=== PATIENT | male | born 1955 | race American Indian/Alaskan Native ===

== ENCOUNTER 2017-01-14 13:53 | Inpatient (IN) | payer MEDICARE, OTHER ==
[2017-01-14] MEDS ORDERED: NACL 0.9% 1000 ML 1,000 ML IV ONE ×2 (14:14→15:38)
[2017-01-14 15:04] LABS: INR 2.07 (0.87-1.13)
[2017-01-14 15:05] LABS: Partial Thromboplastin Time 54.4 Sec. (24.2-36.6)
[2017-01-14 15:08] LABS: Eosinophils % (Auto) 2.5 % (0.0-4.3); Mean Corpuscular HGB Conc 33 % (32-34); Mean Corpuscular Hemoglobin 30 pg (28-32); Mean Corpuscular Volume 89 fl (84-94); Red Blood Count 1.83 M/mm3 (3.65-5.03); Red Cell Distribution Width 17.4 % (13.2-15.2); White Blood Count 11.3 K/mm3 (4.5-11.0)
[2017-01-14 15:13] LABS: Hemoglobin 5.4 gm/dl (11.8-15.2)
[2017-01-14 15:14] LABS: Hematocrit 16.3 % (35.5-45.6)
[2017-01-14] MEDS ORDERED: NACL 0.9% 500 ML 500 ML IV ONE ×3 (15:21→23:07)
[2017-01-14 15:22] LABS: BUN/Creatinine Ratio 24.22; Calcium 8.2 mg/dL (8.4-10.2)
[2017-01-14 15:23] LABS: Albumin 2.5 g/dL (3.9-5); Albumin/Globulin Ratio 0.6 %; Bilirubin,Total 9.8 mg/dL (0.1-1.2); Chloride 105.7 mmol/L (98-107); Potassium 5.2 mmol/L (3.6-5.0); Total Protein 6.5 g/dL (6.3-8.2)
--- NOTE | 2017-01-14 15:38 | Emergency Department Report ---
ED GI Bleed HPI - General Chief complaint: GI Bleed Stated complaint: RECTAL BLEED Time Seen by Provider: 01/14/17 15:18 Source: EMS Mode of arrival: Stretcher Limitations: Physical Limitation - History of Present Illness Initial comments: The patient noted some rectal bleeding this morning. He was having diarrhea yesterday but there was no apparent hematochezia. The stool turned dark red today. The patient is not complaining of any acute abdominal pain. The family attributed the diarrhea to what I think is the patient's chronic lactulose for I presume hyperammonemia related to his cirrhosis. He has a history of a portacaval shunt or slipped as he states. He receives GI care and general medical care at the [facility]. He has had a CT here at this facility which was consistent with cirrhosis. He is not currently consuming alcohol and not for quite some time. He denies any recent vomiting. From what I can tell he does have a history of esophageal varices. MD complaint: gross hematemesis -: hour(s) Severity scale (0 -10): 0 Consistency: intermittent (intermittent rectal bleeding but no acute abdominal pain) Improves with: none Worsens with: none Context: history of GI bleed (patient states he's had no recent transfusion) Associated Symptoms: denies other symptoms (is not currently complaining of shortness of breath or acute weakness), weakness - Related Data Home Medications Medication Instructions Recorded Confirmed Last Taken Cyanocobalamin [Vitamin B-12] 1,000 mcg PO DAILY 11/26/15 11/26/15 11/26/15 Folic Acid [Folvite] 1 mg PO QDAY 11/26/15 11/26/15 11/26/15 Furosemide [Lasix TAB] 40 mg PO QDAY 11/26/15 11/26/15 11/26/15 Magnesium Oxide 420 mg PO BID 11/26/15 11/26/15 11/26/15 amLODIPine [Norvasc] 5 mg PO DAILY 11/26/15 11/26/15 11/26/15 Previous Rx's Medication Instructions Recorded Last Taken Type Dicyclomine [Bentyl] 10 mg PO QID PRN #20 capsule 11/27/15 Unknown Rx Famotidine [Pepcid] 20 mg PO QDAY #20 tablet 11/27/15 Unknown Rx Ondansetron [Zofran Odt] 4 mg PO QID PRN #20 tab.rapdis 11/27/15 Unknown Rx Allergies Allergy/AdvReac Type Severity Reaction Status Date / Time No Known Allergies Allergy Verified 05/20/16 08:19 ED Review of Systems ROS: Stated complaint: RECTAL BLEED Other details as noted in HPI Constitutional: denies: chills, fever Eyes: denies: eye pain, eye discharge, vision change ENT: denies: ear pain, throat pain Respiratory: denies: cough, shortness of breath, wheezing Cardiovascular: denies: chest pain, palpitations Endocrine: no symptoms reported Gastrointestinal: diarrhea, hematochezia. denies: abdominal pain, nausea Genitourinary: denies: urgency, dysuria Musculoskeletal: denies: back pain, joint swelling, arthralgia Skin: denies: rash, lesions Neurological: denies: headache, weakness, paresthesias Psychiatric: denies: anxiety, depression Hematological/Lymphatic: denies: easy bleeding, easy bruising ED Past Medical Hx - Past Medical History Hx Hypertension: Yes Hx Liver Disease: Yes (CIRRHOSIS) Hx Seizures: Yes Additional medical history: enlarged liver, pituitary adenoma, cirrhosis with ascites. cataracts. glaucoma. anemia. GI bleed - Surgical History Additional Surgical History: left 5th toe ampuated. right third toe (hammertoe) - Social History Smoking Status: Former Smoker Substance Use Type: Alcohol - Medications Home Medications: Home Medications Medication Instructions Recorded Confirmed Last Taken Type Cyanocobalamin [Vitamin B-12] 1,000 mcg PO DAILY 11/26/15 11/26/15 11/26/15 History Folic Acid [Folvite] 1 mg PO QDAY 11/26/15 11/26/15 11/26/15 History Furosemide [Lasix TAB] 40 mg PO QDAY 11/26/15 11/26/15 11/26/15 History Magnesium Oxide 420 mg PO BID 11/26/15 11/26/15 11/26/15 History amLODIPine [Norvasc] 5 mg PO DAILY 11/26/15 11/26/15 11/26/15 History Dicyclomine [Bentyl] 10 mg PO QID PRN #20 capsule 11/27/15 Unknown Rx Famotidine [Pepcid] 20 mg PO QDAY #20 tablet 11/27/15 Unknown Rx Ondansetron [Zofran Odt] 4 mg PO QID PRN #20 tab.rapdis 11/27/15 Unknown Rx ED Physical Exam - General Limitations: Physical Limitation General appearance: alert, in no apparent distress - Head Head exam: Present: atraumatic, normocephalic - Eye Eye exam: Present: normal appearance, PERRL, EOMI. Absent: scleral icterus - ENT ENT exam: Present: mucous membranes moist - Neck Neck exam: Present: normal inspection. Absent: tenderness, meningismus - Respiratory Respiratory exam: Present: normal lung sounds bilaterally. Absent: respiratory distress - Cardiovascular Cardiovascular Exam: Present: regular rate, normal rhythm. Absent: systolic murmur, diastolic murmur, rubs, gallop - GI/Abdominal GI/Abdominal exam: Present: soft, distended, normal bowel sounds, other ( moderate ascites present). Absent: tenderness, guarding, rebound - Rectal Rectal exam: Present: deferred, other (hematochezia noted but no active rectal bleeding) - Extremities Exam Extremities exam: Present: normal inspection - Back Exam Back exam: Present: normal inspection - Neurological Exam Neurological exam: Present: alert, oriented X3, CN II-XII intact. Absent: motor sensory deficit - Psychiatric Psychiatric exam: Present: normal affect, normal mood - Skin Skin exam: Present: warm, dry, intact, normal color. Absent: rash ED Course Vital Signs 01/14/17 01/14/17 01/14/17 13:55 14:16 17:48 Temperature 98.3 F 98.3 F 98.2 F Pulse Rate 68 68 60 Respiratory 20 18 18 Rate Blood Pressure 95/51 100/55 Blood Pressure 95/51 [Right] O2 Sat by Pulse 96 96 99 Oximetry 01/14/17 01/14/17 18:02 18:18 Temperature 97.9 F 97.8 F Pulse Rate 59 L 54 L Respiratory 16 16 Rate Blood Pressure 107/50 109/51 Blood Pressure [Right] O2 Sat by Pulse 98 100 Oximetry - Reevaluation(s) Reevaluation #1: Patient was it. He treated with octreotide considering his history of esophageal varices. He was given Protonix. He was given blood and FFP considering his coagulopathy. He has remained hemodynamically stable and remarkably so. Nurses are in the process of medication of his currently ordered blood products. In addition I ordered a platelet pheresis considering the moderate likelihood of decreasing platelets in this setting and the lag time required to procure platelets. I spoke with the power engineer on- call as well as the hospitalist. They agreed with this plan. They have been consulted. The patient was seen and admitted by Dr. MURCIA. He stated he would consult renal. Further care per the hospitalist staff and appropriate consultants. 01/14/17 18:35 ED Medical Decision Making - Lab Data Result diagrams: 01/14/17 14:28 01/14/17 14:28 Laboratory Results - last 24 hr 01/14/17 01/14/17 01/14/17 14:28 14:28 14:28 WBC 11.3 H RBC 1.83 L Hgb 5.4 L* Hct 16.3 L* MCV 89 MCH 30 MCHC 33 RDW 17.4 H Cobb % (Auto) 10.4 H Eos % (Auto) 2.5 Cobb # 1.2 H Eos # 0.3 Baso # 0.1 Seg Neutrophils % 72.9 H Seg Neutrophils # 8.2 H PT 23.3 H INR 2.07 H APTT 54.4 H Sodium 140 Potassium 5.2 H Chloride 105.7 Carbon Dioxide 16 L Anion Gap 24 BUN 109 H Creatinine 4.5 H Estimated GFR 16 BUN/Creatinine Ratio 24.22 Glucose 133 H Calcium 8.2 L Total Bilirubin 9.80 H AST 81 H ALT 35 Alkaline Phosphatase 81 Total Protein 6.5 Albumin 2.5 L Albumin/Globulin Ratio 0.6 Lipase 208 H Laboratory Results - last 24 hr 01/14/17 01/14/17 01/14/17 14:28 14:28 14:28 WBC 11.3 H RBC 1.83 L Hgb 5.4 L* Hct 16.3 L* MCV 89 MCH 30 MCHC 33 RDW 17.4 H Plt Count 50 L Cobb % (Auto) 10.4 H Eos % (Auto) 2.5 Cobb # 1.2 H Eos # 0.3 Baso # 0.1 Add Manual Diff Complete Total Counted 100 Seg Neutrophils % 72.9 H Seg Neuts % (Manual) 88.0 H Band Neutrophils % 0 Lymphocytes % (Manual) 4.0 L Reactive Lymphs % (Man) 0 Monocytes % (Manual) 6.0 Eosinophils % (Manual) 1.0 Basophils % (Manual) 1.0 Metamyelocytes % 0 Myelocytes % 0 Promyelocytes % 0 Blast Cells % 0 Nucleated RBC % Not Reportable Seg Neutrophils # 8.2 H Seg Neutrophils # Man 9.9 H Band Neutrophils # 0.0 Lymphocytes # (Manual) 0.5 L Abs React Lymphs (Man) 0.0 Monocytes # (Manual) 0.7 Eosinophils # (Manual) 0.1 Basophils # (Manual) 0.1 Metamyelocytes # 0.0 Myelocytes # 0.0 Promyelocytes # 0.0 Blast Cells # 0.0 WBC Morphology Not Reportable Hypersegmented Neuts Not Reportable Hyposegmented Neuts Not Reportable Hypogranular Neuts Not Reportable Smudge Cells Not Reportable Toxic Granulation Not Reportable Toxic Vacuolation Not Reportable Dohle Bodies Not Reportable Pelger-Huet Anomaly Not Reportable Eriberto Rods Not Reportable Platelet Estimate Consistent w auto Clumped Platelets Not Reportable Plt Clumps, EDTA Not Reportable Large Platelets Not Reportable Giant Platelets Not Reportable Platelet Satelliting Not Reportable Plt Morphology Comment Not Reportable RBC Morphology Not Reportable Dimorphic RBCs Not Reportable Polychromasia Not Reportable Hypochromasia Not Reportable Poikilocytosis 1+ Anisocytosis Not Reportable Microcytosis Not Reportable Macrocytosis Not Reportable Spherocytes Not Reportable Pappenheimer Bodies Not Reportable Sickle Cells Not Reportable Target Cells Few Tear Drop Cells Not Reportable Ovalocytes Not Reportable Helmet Cells Not Reportable [place] Bodies Not Reportable [place] Rings Not Reportable [place] Cells Not Reportable Bite Cells Not Reportable Crenated Cell Not Reportable Elliptocytes Not Reportable Acanthocytes (Spur) Not Reportable Rouleaux Not Reportable Hemoglobin C Crystals Not Reportable Schistocytes Not Reportable Malaria parasites Not Reportable Lyndon Bodies Not Reportable Hem Pathologist Commnt No PT 23.3 H INR 2.07 H APTT 54.4 H Sodium 140 Potassium 5.2 H Chloride 105.7 Carbon Dioxide 16 L Anion Gap 24 BUN 109 H Creatinine 4.5 H Estimated GFR 16 BUN/Creatinine Ratio 24.22 Glucose 133 H Calcium 8.2 L Total Bilirubin 9.80 H AST 81 H ALT 35 Alkaline Phosphatase 81 Ammonia Total Protein 6.5 Albumin 2.5 L Albumin/Globulin Ratio 0.6 Lipase 208 H Blood Type Antibody Screen Crossmatch 01/14/17 01/14/17 14:35 15:55 WBC RBC Hgb Hct MCV MCH MCHC RDW Plt Count Cobb % (Auto) Eos % (Auto) Cobb # Eos # Baso # Add Manual Diff Total Counted Seg Neutrophils % Seg Neuts % (Manual) Band Neutrophils % Lymphocytes % (Manual) Reactive Lymphs % (Man) Monocytes % (Manual) Eosinophils % (Manual) Basophils % (Manual) Metamyelocytes % Myelocytes % Promyelocytes % Blast Cells % Nucleated RBC % Seg Neutrophils # Seg Neutrophils # Man Band Neutrophils # Lymphocytes # (Manual) Abs React Lymphs (Man) Monocytes # (Manual) Eosinophils # (Manual) Basophils # (Manual) Metamyelocytes # Myelocytes # Promyelocytes # Blast Cells # WBC Morphology Hypersegmented Neuts Hyposegmented Neuts Hypogranular Neuts Smudge Cells Toxic Granulation Toxic Vacuolation Dohle Bodies Pelger-Huet Anomaly Eriberto Rods Platelet Estimate Clumped Platelets Plt Clumps, EDTA Large Platelets Giant Platelets Platelet Satelliting Plt Morphology Comment RBC Morphology Dimorphic RBCs Polychromasia Hypochromasia Poikilocytosis Anisocytosis Microcytosis Macrocytosis Spherocytes Pappenheimer Bodies Sickle Cells Target Cells Tear Drop Cells Ovalocytes Helmet Cells [place] Bodies [place] Rings [place] Cells Bite Cells Crenated Cell Elliptocytes Acanthocytes (Spur) Rouleaux Hemoglobin C Crystals Schistocytes Malaria parasites Lyndon Bodies Hem Pathologist Commnt PT INR APTT Sodium Potassium Chloride Carbon Dioxide Anion Gap BUN Creatinine Estimated GFR BUN/Creatinine Ratio Glucose Calcium Total Bilirubin AST ALT Alkaline Phosphatase Ammonia 25.0 Total Protein Albumin Albumin/Globulin Ratio Lipase Blood Type A NEGATIVE Antibody Screen Negative Crossmatch See Detail - EKG Data -: EKG Interpreted by Me EKG shows normal: axis (axis is normal) Rate: normal - EKG Data Interpretation: nonspecific ST-T wave nita, other (uncertain rhythm consider junctional.) - Radiology Data interpreted by me: Chest x-ray shows bilateral pleural effusions are normal, cardiac silhouette Critical Care Time: Yes Critical care time in (mins) excluding proc time.: 90 Critical care attestation.: If time is entered above; I have spent that time in minutes in the direct care of this critically ill patient, excluding procedure time. ED Disposition Clinical Impression: Symptomatic anemia, Acute prerenal azotemia, Thrombocytopenia, Portal hypertension GI bleeding Qualifiers: GI bleed type/associated pathology: melena Qualified Code(s): K92.1 - Melena Acute renal failure Qualifiers: Acute renal failure type: unspecified Qualified Code(s): N17.9 - Acute kidney failure, unspecified Cirrhosis of liver with ascites Qualifiers: Hepatic cirrhosis type: unspecified hepatic cirrhosis Qualified Code(s): K74.60 - Unspecified cirrhosis of liver Disposition: OP ADMIT IP TO THIS HOSP Is pt being admited?: Yes Does the pt Need Aspirin: No Condition: Stable Referrals: PRIMARY CARE, [Primary Care Provider] - 3-5 Days Forms: Accompanied Note
[2017-01-14] MEDS ORDERED: PROTONIX IV ONE (16:00)
[2017-01-14] MEDS ORDERED: SandoSTATIN 500 MCG in NACL 0.9% 100 ML IV ONE (16:00)
[2017-01-14 16:08] LABS: Blastocytes % (Manual) 0 %
[2017-01-14 16:11] LABS: Diff Status Complete; Platelet Estimate Consistent w Auto; Poikilocytosis 1+; Target Cells Few
--- NOTE | 2017-01-14 16:18 | XRay Report ---
FINAL REPORT EXAM: XR CHEST 1V AP HISTORY: hypotension TECHNIQUE: Chest single AP PRIORS: None. FINDINGS: Cardiac and mediastinal contours are within normal limits There is a moderate right pleural effusion. There is a small left pleural effusion. No confluent pulmonary infiltrates are identified. No pleural fluid collection seen. Pulmonary vasculature is unremarkable. IMPRESSION: Bilateral pleural effusions greater on the right
[2017-01-14 17:11] LABS: Platelet Count 50 K/mm3 (140-440)
[2017-01-14] MEDS ORDERED: NACL 0.9% 500 ML 500 ML ONE ×2 (17:26→23:00)
[2017-01-14 17:35] LABS: Bacteria,Urine 2+ /HPF (Negative); Bilirubin,Urine NEG (Negative); Blood,Urine MOD (Negative); Ketones,Urine NEG (Negative); Leukocyte Esterase,Urine NEG (Negative); Nitrite,Urine NEG (Negative); Urobilinogen,Urine < 2.0 mg/dL (<2.0)
[2017-01-14] MEDS ORDERED: MILK OF MAGNESIA PO PRN (18:30)
[2017-01-14] MEDS ORDERED: TYLENOL PO PRN (18:30)
[2017-01-14] MEDS ORDERED: ZOFRAN IV PRN (18:30)
[2017-01-14] MEDS ORDERED: DULCOLAX PR PRN (18:30)
[2017-01-14] MEDS ORDERED: DILAUDID IV PRN (18:30)
--- NOTE | 2017-01-14 18:30 | History and Physical Report ---
History of Present Illness Date of examination: 01/14/17 Date of admission: 01/14/17 Chief complaint: Cc:Bright red blood per rectum since AM History of present illness: History of Present Illness The patient noted some rectal bleeding this morning. He was having diarrhea yesterday but there was no apparent hematochezia. The stool turned dark red today. The patient is not complaining of any acute abdominal pain. The family attributed the diarrhea to chronic lactulose use for presumed hyperammonemia related to his cirrhosis. He has a history of a portacaval shunt. He receives GI care and general medical care at the [facility]. He has had a CT here at this facility which was consistent with cirrhosis. He is not currently consuming alcohol and not for quite some time. He denies any recent vomiting. He does have a history of esophageal varices. Severity scale (0 -10): 0 Consistency: intermittent (intermittent rectal bleeding but no acute abdominal pain) Improves with: none Worsens with: none Context: history of GI bleed (patient states he's had no recent transfusion) Associated Symptoms: denies other symptoms (is not currently complaining of shortness of breath or acute weakness), weakness - Past Medical History Hx Hypertension: Yes Hx Liver Disease: Yes (CIRRHOSIS) Hx Seizures: Yes Additional medical history: enlarged liver, pituitary adenoma, cirrhosis with ascites. cataracts. glaucoma. anemia. GI bleed - Surgical History Additional Surgical History: left 5th toe ampuated. right third toe (hammertoe) - Social History Smoking Status: Former Smoker Substance Use Type: Alcohol - Medications Home Medications: Home Medications Medication Instructions Recorded Confirmed Last Taken Type Cyanocobalamin [Vitamin B-12] 1,000 mcg PO DAILY 11/26/15 11/26/15 11/26/15 History Folic Acid [Folvite] 1 mg PO QDAY 11/26/15 11/26/15 11/26/15 History Furosemide [Lasix TAB] 40 mg PO QDAY 11/26/15 11/26/15 11/26/15 History Magnesium Oxide 420 mg PO BID 11/26/15 11/26/15 11/26/15 History amLODIPine [Norvasc] 5 mg PO DAILY 11/26/15 11/26/15 11/26/15 History Dicyclomine [Bentyl] 10 mg PO QID PRN #20 capsule 11/27/15 Unknown Rx Famotidine [Pepcid] 20 mg PO QDAY #20 tablet 11/27/15 Unknown Rx Ondansetron [Zofran Odt] 4 mg PO QID PRN #20 tab.rapdis 11/27/15 Unknown Rx Review of Systems Stated complaint: RECTAL BLEED Other details as noted in HPI Constitutional: denies: chills, fever Eyes: denies: eye pain, eye discharge, vision change ENT: denies: ear pain, throat pain Respiratory: denies: cough, shortness of breath, wheezing Cardiovascular: denies: chest pain, palpitations Endocrine: no symptoms reported Gastrointestinal: diarrhea, hematochezia. denies: abdominal pain, nausea Genitourinary: denies: urgency, dysuria Musculoskeletal: denies: back pain, joint swelling, arthralgia Skin: denies: rash, lesions Neurological: denies: headache, weakness, paresthesias Psychiatric: denies: anxiety, depression Hematological/Lymphatic: denies: easy bleeding, easy bruising Medications and Allergies Allergies Allergy/AdvReac Type Severity Reaction Status Date / Time No Known Allergies Allergy Verified 05/20/16 08:19 Home Medications Medication Instructions Recorded Confirmed Last Taken Type Cyanocobalamin [Vitamin B-12] 1,000 mcg PO DAILY 11/26/15 11/26/15 11/26/15 History Folic Acid [Folvite] 1 mg PO QDAY 11/26/15 11/26/15 11/26/15 History Furosemide [Lasix TAB] 40 mg PO QDAY 11/26/15 11/26/15 11/26/15 History Magnesium Oxide 420 mg PO BID 11/26/15 11/26/15 11/26/15 History amLODIPine [Norvasc] 5 mg PO DAILY 11/26/15 11/26/15 11/26/15 History Dicyclomine [Bentyl] 10 mg PO QID PRN #20 capsule 11/27/15 Unknown Rx Famotidine [Pepcid] 20 mg PO QDAY #20 tablet 11/27/15 Unknown Rx Ondansetron [Zofran Odt] 4 mg PO QID PRN #20 tab.rapdis 11/27/15 Unknown Rx Active Meds: Active Medications Octreotide Acetate 500 mcg/ (Sodium Chloride) 101 mls @ 5.05 mls/hr IV ONCE.ED ONE; 25 MCG/HR PRN Reason: Protocol Stop: 01/15/17 11:59 Last Admin: 01/14/17 16:14 Dose: 25 mcg/hr, 5.05 mls/hr Exam - Physical Exam Narrative exam: Lying comfortably . ar bedside - Constitutional Vitals: Temp Pulse Resp BP Pulse Ox 97.8 F 54 L 16 109/51 100 01/14/17 18:18 01/14/17 18:18 01/14/17 18:18 01/14/17 18:18 01/14/17 18:18 General appearance: Present: no acute distress, well-nourished - EENT Eyes: Present: PERRL ENT: hearing intact, clear oral mucosa - Neck Neck: Present: supple, normal ROM - Respiratory Respiratory effort: normal Respiratory: bilateral: CTA - Cardiovascular Heart rate: 96 Rhythm: regular Heart Sounds: Present: S1 & S2. Absent: rub, click - Extremities Extremities: no ischemia, pulses intact, pulses symmetrical, No edema Peripheral Pulses: within normal limits - Abdominal General gastrointestinal: Present: non-tender, distended, normal bowel sounds Male genitourinary: Present: normal - Rectal Rectal Exam: stool bloody, other (OB positive) - Integumentary Integumentary: Present: clear, warm, dry - Musculoskeletal Musculoskeletal: gait normal, strength equal bilaterally - Psychiatric Psychiatric: appropriate mood/affect, intact judgment & insight - Neurologic Neurologic: CNII-XII intact, moves all extremities - Allied Health Allied health notes reviewed: nursing, case management Results - Labs CBC & Chem 7: 01/14/17 21:56 01/14/17 21:00 Labs: Laboratory Last Values WBC 11.3 K/mm3 (4.5-11.0) H 01/14/17 14:28 RBC 1.83 M/mm3 (3.65-5.03) L 01/14/17 14:28 Hgb 5.4 gm/dl (11.8-15.2) L* 01/14/17 14:28 Hct 16.3 % (35.5-45.6) L* 01/14/17 14:28 MCV 89 fl (84-94) 01/14/17 14:28 MCH 30 pg (28-32) 01/14/17 14:28 MCHC 33 % (32-34) 01/14/17 14:28 RDW 17.4 % (13.2-15.2) H 01/14/17 14:28 Plt Count 50 K/mm3 (140-440) L 01/14/17 14:28 [place] % (Auto) 10.4 % (0.0-7.3) H 01/14/17 14:28 Eos % (Auto) 2.5 % (0.0-4.3) 01/14/17 14:28 [place] # 1.2 K/mm3 (0.0-0.8) H 01/14/17 14:28 Eos # 0.3 K/mm3 (0.0-0.4) 01/14/17 14:28 Baso # 0.1 K/mm3 (0.0-0.1) 01/14/17 14:28 Add Manual Diff Complete 01/14/17 14:28 Total Counted 100 01/14/17 14:28 Seg Neutrophils % 72.9 % (40.0-70.0) H 01/14/17 14:28 Seg Neuts % (Manual) 88.0 % (40.0-70.0) H 01/14/17 14:28 Band Neutrophils % 0 % 01/14/17 14:28 Lymphocytes % (Manual) 4.0 % (13.4-35.0) L 01/14/17 14:28 Reactive Lymphs % (Man) 0 % 01/14/17 14:28 Monocytes % (Manual) 6.0 % (0.0-7.3) 01/14/17 14:28 Eosinophils % (Manual) 1.0 % (0.0-4.3) 01/14/17 14:28 Basophils % (Manual) 1.0 % (0.0-1.8) 01/14/17 14:28 Metamyelocytes % 0 % 01/14/17 14:28 Myelocytes % 0 % 01/14/17 14:28 Promyelocytes % 0 % 01/14/17 14:28 Blast Cells % 0 % 01/14/17 14:28 Nucleated RBC % Not Reportable 01/14/17 14:28 Seg Neutrophils # 8.2 K/mm3 (1.8-7.7) H 01/14/17 14:28 Seg Neutrophils # Man 9.9 K/mm3 (1.8-7.7) H 01/14/17 14:28 Band Neutrophils # 0.0 K/mm3 01/14/17 14:28 Lymphocytes # (Manual) 0.5 K/mm3 (1.2-5.4) L 01/14/17 14:28 Abs React Lymphs (Man) 0.0 K/mm3 01/14/17 14:28 Monocytes # (Manual) 0.7 K/mm3 (0.0-0.8) 01/14/17 14:28 Eosinophils # (Manual) 0.1 K/mm3 (0.0-0.4) 01/14/17 14:28 Basophils # (Manual) 0.1 K/mm3 (0.0-0.1) 01/14/17 14:28 Metamyelocytes # 0.0 K/mm3 01/14/17 14:28 Myelocytes # 0.0 K/mm3 01/14/17 14:28 Promyelocytes # 0.0 K/mm3 01/14/17 14:28 Blast Cells # 0.0 K/mm3 01/14/17 14:28 WBC Morphology Not Reportable 01/14/17 14:28 Hypersegmented Neuts Not Reportable 01/14/17 14:28 Hyposegmented Neuts Not Reportable 01/14/17 14:28 Hypogranular Neuts Not Reportable 01/14/17 14:28 Smudge Cells Not Reportable 01/14/17 14:28 Toxic Granulation Not Reportable 01/14/17 14:28 Toxic Vacuolation Not Reportable 01/14/17 14:28 Dohle Bodies Not Reportable 01/14/17 14:28 Pelger-Huet Anomaly Not Reportable 01/14/17 14:28 Eriberto Rods Not Reportable 01/14/17 14:28 Platelet Estimate Consistent w auto 01/14/17 14:28 Clumped Platelets Not Reportable 01/14/17 14:28 Plt Clumps, EDTA Not Reportable 01/14/17 14:28 Large Platelets Not Reportable 01/14/17 14:28 Giant Platelets Not Reportable 01/14/17 14:28 Platelet Satelliting Not Reportable 01/14/17 14:28 Plt Morphology Comment Not Reportable 01/14/17 14:28 RBC Morphology Not Reportable 01/14/17 14:28 Dimorphic RBCs Not Reportable 01/14/17 14:28 Polychromasia Not Reportable 01/14/17 14:28 Hypochromasia Not Reportable 01/14/17 14:28 Poikilocytosis 1+ 01/14/17 14:28 Anisocytosis Not Reportable 01/14/17 14:28 Microcytosis Not Reportable 01/14/17 14:28 Macrocytosis Not Reportable 01/14/17 14:28 Spherocytes Not Reportable 01/14/17 14:28 Pappenheimer Bodies Not Reportable 01/14/17 14:28 Sickle Cells Not Reportable 01/14/17 14:28 Target Cells Few 01/14/17 14:28 Tear Drop Cells Not Reportable 01/14/17 14:28 Ovalocytes Not Reportable 01/14/17 14:28 Helmet Cells Not Reportable 01/14/17 14:28 D[place] Santos-Irrigon Bodies Not Reportable 01/14/17 14:28 [place] Rings Not Reportable 01/14/17 14:28 F[place]ad Cells Not Reportable 01/14/17 14:28 Bite Cells Not Reportable 01/14/17 14:28 Crenated Cell Not Reportable 01/14/17 14:28 Elliptocytes Not Reportable 01/14/17 14:28 Acanthocytes (Spur) Not Reportable 01/14/17 14:28 Rouleaux Not Reportable 01/14/17 14:28 Hemoglobin C Crystals Not Reportable 01/14/17 14:28 Schistocytes Not Reportable 01/14/17 14:28 Malaria parasites Not Reportable 01/14/17 14:28 Lyndon Bodies Not Reportable 01/14/17 14:28 Hem Pathologist Commnt No 01/14/17 14:28 PT 23.3 Sec. (12.2-14.9) H 01/14/17 14:28 INR 2.07 (0.87-1.13) H 01/14/17 14:28 APTT 54.4 Sec. (24.2-36.6) H 01/14/17 14:28 Sodium 140 mmol/L (137-145) 01/14/17 14:28 Potassium 5.2 mmol/L (3.6-5.0) H 01/14/17 14:28 Chloride 105.7 mmol/L (98-107) 01/14/17 14:28 Carbon Dioxide 16 mmol/L (22-30) L 01/14/17 14:28 Anion Gap 24 mmol/L 01/14/17 14:28 BUN 109 mg/dL (9-20) H 01/14/17 14:28 Creatinine 4.5 mg/dL (0.8-1.5) H 01/14/17 14:28 Estimated GFR 16 ml/min 01/14/17 14:28 BUN/Creatinine Ratio 24.22 % 01/14/17 14:28 Glucose 133 mg/dL (75-100) H 01/14/17 14:28 Calcium 8.2 mg/dL (8.4-10.2) L 01/14/17 14:28 Total Bilirubin 9.80 mg/dL (0.1-1.2) H 01/14/17 14:28 AST 81 units/L (5-40) H 01/14/17 14:28 ALT 35 units/L (7-56) 01/14/17 14:28 Alkaline Phosphatase 81 units/L (35-129) 01/14/17 14:28 Ammonia 25.0 umol/L (25-60) 01/14/17 15:55 Total Protein 6.5 g/dL (6.3-8.2) 01/14/17 14:28 Albumin 2.5 g/dL (3.9-5) L 01/14/17 14:28 Albumin/Globulin Ratio 0.6 % 01/14/17 14:28 Lipase 208 units/L (13-60) H 01/14/17 14:28 Urine Color Aye (Yellow) 01/14/17 17:15 Urine Turbidity Cloudy (Clear) 01/14/17 17:15 Urine pH 5.0 (5.0-7.0) 01/14/17 17:15 Ur Specific [place] 1.013 (1.003-1.030) 01/14/17 17:15 Urine Protein 30 mg/dl mg/dL (Negative) 01/14/17 17:15 Urine Glucose (UA) Neg mg/dL (Negative) 01/14/17 17:15 Urine Ketones Neg mg/dL (Negative) 01/14/17 17:15 Urine Blood Mod (Negative) 01/14/17 17:15 Urine Nitrite Neg (Negative) 01/14/17 17:15 Urine Bilirubin Neg (Negative) 01/14/17 17:15 Urine Urobilinogen < 2.0 mg/dL (<2.0) 01/14/17 17:15 Ur Leukocyte Esterase Neg (Negative) 01/14/17 17:15 Urine WBC (Auto) 1.0 /HPF (0.0-6.0) 01/14/17 17:15 Urine RBC (Auto) 8.0 /HPF (0.0-6.0) 01/14/17 17:15 Urine Bacteria (Auto) 2+ /HPF (Negative) 01/14/17 17:15 Blood Type A NEGATIVE 01/14/17 14:35 Antibody Screen Negative 01/14/17 14:35 Crossmatch See Detail 01/14/17 14:35 Short CBC 01/14/17 Range/Units 14:28 WBC 11.3 H (4.5-11.0) K/mm3 Hgb 5.4 L* (11.8-15.2) gm/dl Hct 16.3 L* (35.5-45.6) % Plt Count 50 L (140-440) K/mm3 BMP 01/14/17 14:28 Sodium 140 Potassium 5.2 H Chloride 105.7 Carbon Dioxide 16 L BUN 109 H Creatinine 4.5 H Glucose 133 H Calcium 8.2 L Liver Function 01/14/17 Range/Units 14:28 Total Bilirubin 9.80 H (0.1-1.2) mg/dL AST 81 H (5-40) units/L ALT 35 (7-56) units/L Alkaline Phosphatase 81 (35-129) units/L Albumin 2.5 L (3.9-5) g/dL Urine 01/14/17 Range/Units 17:15 Urine Color Aye (Yellow) Urine pH 5.0 (5.0-7.0) Ur Specific [place] 1.013 (1.003-1.030) Urine Protein 30 mg/dl (Negative) mg/dL Urine Glucose (UA) Neg (Negative) mg/dL - Imaging and Cardiology Chest x-ray: report reviewed (Bilateral pleural effusions) Assessment and Plan Assessment and plan: The high probability OF a clinically significant sudden or life-threatening deterioration of the cardiorespiratory system and endocrine system required my full and direct attention, intervention and postoperative management. The aggregate medical care time was 40 minutes. The time is in addition to time spent performing reported procedures but includes the followin: Data review and interpretation 2: Patient assessment and monitoring of vital signs 3: Documentation 4:: Medication orders and management Advance Directives: Yes (Full code) VTE prophylaxis?: Mechanical Contraindication Mechanical VTE Prophylaxis: Contraindicated Plan of care discussed with patient/family: Yes - Patient Problems (1) GI (gastrointestinal hemorrhage) Current Visit: Yes Status: Acute Qualifiers: GI bleed type/associated pathology: melena Gastritis type: G Qualified Code(s): K92.1 - Melena Plan to address problem: GI bleed sec to Portal hypertension and esophageal varices.GI consult requested .Patient had banding in the past.Transfuse 2 to 4 units of PRBC. (2) Portal hypertension Current Visit: Yes Status: Chronic Plan to address problem: Aldactone 25 initiated. Patient 's K slightly high..will watch closely. IV lasix for ascites and high K (3) Acute blood loss anemia Current Visit: Yes Status: Acute Plan to address problem: Transfuse as necessary.2 to 4 units of Prbc ordered. (4) Acute prerenal azotemia Current Visit: Yes Status: Acute Plan to address problem: IV fluids gently. Patient may be having hepatorenal syndrome. Prognosis is very poor. Nephrology consult requested. (5) Cirrhosis of liver with ascites Current Visit: Yes Status: Chronic Qualifiers: Hepatic cirrhosis type: unspecified hepatic cirrhosis Qualified Code(s): K74.60 - Unspecified cirrhosis of liver Plan to address problem: Aldactone 25 mg initiated (6) Thrombocytopenia Current Visit: Yes Status: Acute Plan to address problem: Platelets to be transfused. Thrombocytopenia sec to Cirrhosis and hepatic failure. (7) DVT prophylaxis Current Visit: Yes Status: Acute Plan to address problem: SCDs for now. No heparin or Lovenox because of GI bleed and thrombocytopenia. Contraindicated.
[2017-01-14] MEDS ORDERED: D5NS 1,000 ML IV SCH (19:00)
--- NOTE | 2017-01-14 20:12 | Gastroenterology Consultation ---
History of Present Illness - Reason for Consult Consult date: 01/14/17 GI Bleed Requesting physician: JULIANE MONTOYA - History of Present Illness The patient is a 61 yo male who was admitted with GI bleeding. The hx is per the patient and the . The patient is a who was just discharged from the [facility] 1 week prior due to severe liver dysfunction. The family was told this was EtOH cirrhosis - though he is unclear about hepatitis status, and he was declined for a liver transplant (actively drinking up until hospitalization). He had "many complications" not the least of which was variceal bleeding (treated with banding, and ultimately a TIPS in November). He continued to decline and his kidneys "began to shut down;" dialysis was discussed, but it was decided not to pursue this because he had a terminal illness (worsening liver disease). Home hospice was arranged, and he was there for 1 week. Today, he ate lunch like normal, but began to develop diarrhea soon afterwards. He then began to have 4 marroon stools (including 1 in the ER ) since then. Here, his hct is 15, but he remains alert and oriented with a normal pressure. When asked about code status, hospice, etc, both he and the are vague about their wishes; the patient, however, understands that he has a terminal illness. Past History Past Medical History: hypertension, liver disease (ESLD (EtOH, active 2 months ago; hx of bleeding EV requiring TIPS 11/2016)), renal failure Past Surgical History: Other (TIPS) Social history: smoking (Hx of tobacco; quit 7 years ago), alcohol abuse Family history: other (Hepatitis in his family) Medications and Allergies Allergies Allergy/AdvReac Type Severity Reaction Status Date / Time No Known Allergies Allergy Verified 05/20/16 08:19 Home Medications Medication Instructions Recorded Confirmed Last Taken Type Cyanocobalamin [Vitamin B-12] 1,000 mcg PO DAILY 11/26/15 11/26/15 11/26/15 History Folic Acid [Folvite] 1 mg PO QDAY 11/26/15 11/26/15 11/26/15 History Furosemide [Lasix TAB] 40 mg PO QDAY 11/26/15 11/26/15 11/26/15 History Magnesium Oxide 420 mg PO BID 11/26/15 11/26/15 11/26/15 History amLODIPine [Norvasc] 5 mg PO DAILY 11/26/15 11/26/15 11/26/15 History Dicyclomine [Bentyl] 10 mg PO QID PRN #20 capsule 11/27/15 Unknown Rx Famotidine [Pepcid] 20 mg PO QDAY #20 tablet 11/27/15 Unknown Rx Ondansetron [Zofran Odt] 4 mg PO QID PRN #20 tab.rapdis 11/27/15 Unknown Rx Active Meds: Active Medications Acetaminophen (Tylenol) 650 mg PO Q4H PRN PRN Reason: Pain MILD(1-3)/Fever >100.5/AMAYA Bisacodyl (Dulcolax) 10 mg NE QDAY PRN PRN Reason: Constipation unrelieved by MOM Furosemide (Lasix) 40 mg IV QDAY RIVKA Hydromorphone HCl (Dilaudid) 0.5 mg IV Q3H PRN PRN Reason: Pain , Severe (7-10) Octreotide Acetate 500 mcg/ (Sodium Chloride) 101 mls @ 5.05 mls/hr IV ONCE.ED ONE; 25 MCG/HR PRN Reason: Protocol Stop: 01/15/17 11:59 Last Admin: 01/14/17 16:14 Dose: 25 mcg/hr, 5.05 mls/hr Dextrose (D5w) 1,000 mls @ 100 mls/hr IV DIRECT RIVKA Magnesium Hydroxide (Milk Of Magnesia) 30 ml PO Q4H PRN PRN Reason: Constipation Ondansetron HCl (Zofran) 4 mg IV Q8H PRN PRN Reason: N/V unrelieved by Reglan Pantoprazole Sodium (Protonix) 40 mg IV BID RIVKA Spironolactone (Aldactone) 25 mg PO QDAY RIVKA Review of Systems - Review of Systems All systems: negative (as noted in the HPI) Exam - Constitutional Vital Signs: Temp Pulse Resp BP Pulse Ox 97.8 F 55 L 16 108/57 99 01/14/17 19:15 01/14/17 19:15 01/14/17 19:15 01/14/17 19:15 01/14/17 18:35 General appearance: no acute distress, temporal muscle wasting - EENT Eyes: PERRL, EOM intact, scleral icterus ENT: hearing intact, clear oral mucosa - Neck Neck: supple, normal ROM - Respiratory Respiratory effort: normal Respiratory: bilateral: CTA - Cardiovascular Rhythm: regular Heart Sounds: Present: S1 & S2 Extremities: no ischemia, No edema - Gastrointestinal General gastrointestinal: Present: soft, non-tender, distended (moderate ascitesx) - Integumentary Integumentary: Present: warm, jaundice - Neurologic Neurological: alert and oriented x3 - Labs CBC & Chem 7: 01/14/17 14:28 01/14/17 14:28 Lab Results: Laboratory Results - last 24 hr 01/14/17 01/14/17 01/14/17 14:28 14:28 14:28 WBC 11.3 H RBC 1.83 L Hgb 5.4 L* Hct 16.3 L* MCV 89 MCH 30 MCHC 33 RDW 17.4 H Plt Count 50 L [place] % (Auto) 10.4 H Eos % (Auto) 2.5 [place] # 1.2 H Eos # 0.3 Baso # 0.1 Add Manual Diff Complete Total Counted 100 Seg Neutrophils % 72.9 H Seg Neuts % (Manual) 88.0 H Band Neutrophils % 0 Lymphocytes % (Manual) 4.0 L Reactive Lymphs % (Man) 0 Monocytes % (Manual) 6.0 Eosinophils % (Manual) 1.0 Basophils % (Manual) 1.0 Metamyelocytes % 0 Myelocytes % 0 Promyelocytes % 0 Blast Cells % 0 Nucleated RBC % Not Reportable Seg Neutrophils # 8.2 H Seg Neutrophils # Man 9.9 H Band Neutrophils # 0.0 Lymphocytes # (Manual) 0.5 L Abs React Lymphs (Man) 0.0 Monocytes # (Manual) 0.7 Eosinophils # (Manual) 0.1 Basophils # (Manual) 0.1 Metamyelocytes # 0.0 Myelocytes # 0.0 Promyelocytes # 0.0 Blast Cells # 0.0 WBC Morphology Not Reportable Hypersegmented Neuts Not Reportable Hyposegmented Neuts Not Reportable Hypogranular Neuts Not Reportable Smudge Cells Not Reportable Toxic Granulation Not Reportable Toxic Vacuolation Not Reportable Dohle Bodies Not Reportable Pelger-Huet Anomaly Not Reportable Eriberto Rods Not Reportable Platelet Estimate Consistent w auto Clumped Platelets Not Reportable Plt Clumps, EDTA Not Reportable Large Platelets Not Reportable Giant Platelets Not Reportable Platelet Satelliting Not Reportable Plt Morphology Comment Not Reportable RBC Morphology Not Reportable Dimorphic RBCs Not Reportable Polychromasia Not Reportable Hypochromasia Not Reportable Poikilocytosis 1+ Anisocytosis Not Reportable Microcytosis Not Reportable Macrocytosis Not Reportable Spherocytes Not Reportable Pappenheimer Bodies Not Reportable Sickle Cells Not Reportable Target Cells Few Tear Drop Cells Not Reportable Ovalocytes Not Reportable Helmet Cells Not Reportable [place] Bodies Not Reportable [place] Rings Not Reportable [place] Cells Not Reportable Bite Cells Not Reportable Crenated Cell Not Reportable Elliptocytes Not Reportable Acanthocytes (Spur) Not Reportable Rouleaux Not Reportable Hemoglobin C Crystals Not Reportable Schistocytes Not Reportable Malaria parasites Not Reportable Lyndon Bodies Not Reportable Hem Pathologist Commnt No PT 23.3 H INR 2.07 H APTT 54.4 H Sodium 140 Potassium 5.2 H Chloride 105.7 Carbon Dioxide 16 L Anion Gap 24 BUN 109 H Creatinine 4.5 H Estimated GFR 16 BUN/Creatinine Ratio 24.22 Glucose 133 H Calcium 8.2 L Total Bilirubin 9.80 H AST 81 H ALT 35 Alkaline Phosphatase 81 Ammonia Total Protein 6.5 Albumin 2.5 L Albumin/Globulin Ratio 0.6 Lipase 208 H Urine Color Urine Turbidity Urine pH Ur Specific [place] Urine Protein Urine Glucose (UA) Urine Ketones Urine Blood Urine Nitrite Urine Bilirubin Urine Urobilinogen Ur Leukocyte Esterase Urine WBC (Auto) Urine RBC (Auto) Urine Bacteria (Auto) Blood Type Antibody Screen Crossmatch 01/14/17 01/14/17 01/14/17 14:35 15:55 17:15 WBC RBC Hgb Hct MCV MCH MCHC RDW Plt Count [place] % (Auto) Eos % (Auto) [place] # Eos # Baso # Add Manual Diff Total Counted Seg Neutrophils % Seg Neuts % (Manual) Band Neutrophils % Lymphocytes % (Manual) Reactive Lymphs % (Man) Monocytes % (Manual) Eosinophils % (Manual) Basophils % (Manual) Metamyelocytes % Myelocytes % Promyelocytes % Blast Cells % Nucleated RBC % Seg Neutrophils # Seg Neutrophils # Man Band Neutrophils # Lymphocytes # (Manual) Abs React Lymphs (Man) Monocytes # (Manual) Eosinophils # (Manual) Basophils # (Manual) Metamyelocytes # Myelocytes # Promyelocytes # Blast Cells # WBC Morphology Hypersegmented Neuts Hyposegmented Neuts Hypogranular Neuts Smudge Cells Toxic Granulation Toxic Vacuolation Dohle Bodies Pelger-Huet Anomaly Eriberto Rods Platelet Estimate Clumped Platelets Plt Clumps, EDTA Large Platelets Giant Platelets Platelet Satelliting Plt Morphology Comment RBC Morphology Dimorphic RBCs Polychromasia Hypochromasia Poikilocytosis Anisocytosis Microcytosis Macrocytosis Spherocytes Pappenheimer Bodies Sickle Cells Target Cells Tear Drop Cells Ovalocytes Helmet Cells [place] Bodies [place] Rings Curlew Cells Bite Cells Crenated Cell Elliptocytes Acanthocytes (Spur) Rouleaux Hemoglobin C Crystals Schistocytes Malaria parasites Lyndon Bodies Hem Pathologist Commnt PT INR APTT Sodium Potassium Chloride Carbon Dioxide Anion Gap BUN Creatinine Estimated GFR BUN/Creatinine Ratio Glucose Calcium Total Bilirubin AST ALT Alkaline Phosphatase Ammonia 25.0 Total Protein Albumin Albumin/Globulin Ratio Lipase Urine Color Aye Urine Turbidity Cloudy Urine pH 5.0 Ur Specific [place] 1.013 Urine Protein 30 mg/dl Urine Glucose (UA) Neg Urine Ketones Neg Urine Blood Mod Urine Nitrite Neg Urine Bilirubin Neg Urine Urobilinogen < 2.0 Ur Leukocyte Esterase Neg Urine WBC (Auto) 1.0 Urine RBC (Auto) 8.0 Urine Bacteria (Auto) 2+ Blood Type A NEGATIVE Antibody Screen Negative Crossmatch See Detail Assessment and Plan - Patient Problems (1) Alcoholic cirrhosis of liver with ascites Current Visit: Yes Status: Acute Plan to address problem: - Patient is terminal with ESLD and renal failure, and has been placed in home hospice by tertiary care liver evaluation ([facility]). Patient/ appear to not grasp the full implication of hospice. - Will place on octreotide and protonix gtt tonight (no endoscopy unless absolutely necessary due to both TIPS and eating all day today). - Recent bleeding may imply colonic source (?tics) versus occluded TIPS versus coagulopathy. All would be very difficult to treat given his physical condition. - Will get Doppler US of the liver/TIPS in AM. - Keep NPO, and transfuse as needed. - Was on lactulose at home, but c/o diarrhea; will change to xifaxan. - Transfuse FFP x 2 units (in addition to blood already ordered). - Already has 2+ edema, and signs of volume overload; with transfusion, may run in to need for HD or intubation if respiratory status compromised; will re- attempt code status discussion with the family before that.
[2017-01-14] MEDS ORDERED: LASIX ONE (21:09)
[2017-01-14] MEDS: LASIX IV SCH (21:09)
[2017-01-14 21:39] LABS: BUN/Creatinine Ratio 22.08; Calcium 7.7 mg/dL (8.4-10.2); Potassium 4.7 mmol/L (3.6-5.0)
[2017-01-14 22:08] LABS: Basophils % (Auto) 0.4 % (0.0-1.8); Eosinophils % (Auto) 2.1 % (0.0-4.3); Hematocrit 22.3 % (35.5-45.6); Hemoglobin 7.5 gm/dl (11.8-15.2); Mean Corpuscular HGB Conc 34 % (32-34); Mean Corpuscular Hemoglobin 30 pg (28-32); Mean Corpuscular Volume 89 fl (84-94); Red Blood Count 2.52 M/mm3 (3.65-5.03); Red Cell Distribution Width 16.8 % (13.2-15.2); White Blood Count 12.2 K/mm3 (4.5-11.0)
[2017-01-14 22:10] LABS: Platelet Count 55 K/mm3 (140-440)
[2017-01-14 22:18] LABS: INR 2.04 (0.87-1.13)
[2017-01-14] MEDS: D5W 1,000 ML IV SCH (23:00)
[2017-01-15] MEDS: XIFAXAN PO SCH ×3 (01:25→22:17)
[2017-01-15] MEDS: PROTONIX IV SCH ×3 (01:25→23:01)
--- NOTE | 2017-01-15 01:34 | Admit Criteria Form ---
Admission Criteria Documentation: GASTROINTESTINAL BLEEDING Clinical Indications for Inpatient Care (Place 'X' for any and all applicable criteria): Ongoing inpatient care may be indicated for gastrointestinal bleeding with ANY ONE of the following (4)(20)(21)(22)(23)(24): [X]I. Active bleeding (eg, fresh voluminous blood in emesis or nasogastric aspirate, or per rectum) [ ]II. Hemodynamic instability [ ]III. Anticoagulation therapy or coagulopathy ((eg, advanced liver disease, irreversible anticoagulation) [ ]IV. Ischemic colitis (22) [ ]V. Endoscopy showing arterial bleeding, adherent clot, nonbleeding visible vessel, varices, flat red spots, ulcer size greater than 2 cm, or portal hypertensive gastropathy [ ]. High-risk low platelet count [ ]VII. Anemia requiring inpatient care as indicated by ANY ONE of the following a)[ ] Cognitive impairment b)[ ] Syncope c)[ ] Heart failure d)[ ] Chest pain e)[ ] Dyspnea f)[ ] Other findings suggesting inadequate perfusion (eg, peripheral or myocardial ischemia, end organ dysfunction) [ ]VIII. High-risk low platelet count [ ]IX. Suspected variceal cause of bleeding as indicated by ANY ONE of the following(27)(28): a)[ ] Known varices b)[ ] Hepatomegaly or splenomegaly c)[ ] Ascites d)[ ] Jaundice or scleral icterus e)[ ] History of liver disease (eg, cirrhosis) f)[ ] Physical findings of portal hypertension (eg, caput [place]usa) g)[ ] Comorbid disorder indicating risk for portal vein thrombosis (eg , abdominal surgery, sepsis, shock, exchange transfusion, prior umbilical vein catheterization) Extended stay may be needed until ALL of the following are present(20)(38)(47): [ ]a) Hemodynamic stability [ ]b) No evidence of active bleeding (eg, stable Hematocrit) [ ]c) Platelet count, prothrombin time, and partial thromboplastin time acceptable for next level of care [ ]d) Surgical or other acute intervention not needed [ ]e) Oral hydration and diet tolerated The original [facility] content created by [employer] has been revised. The portions of the content which have been revised are identified through the use of italic text or in bold, and [facility] has neither reviewed nor approved the modified material. All other unmodified content is copyright [facility]. Please see references footnoted in the original [facility] edition 2016 Admission Criteria Met: Yes
[2017-01-15 09:54] LABS: Basophils % (Auto) 0.6 % (0.0-1.8); Eosinophils % (Auto) 2.2 % (0.0-4.3); Hemoglobin 6.7 gm/dl (11.8-15.2); Mean Corpuscular HGB Conc 34 % (32-34); Mean Corpuscular Hemoglobin 30 pg (28-32); Mean Corpuscular Volume 88 fl (84-94); Red Blood Count 2.23 M/mm3 (3.65-5.03); Red Cell Distribution Width 17.4 % (13.2-15.2); White Blood Count 10.5 K/mm3 (4.5-11.0)
[2017-01-15 09:57] LABS: Hematocrit 19.6 % (35.5-45.6); Platelet Count 72 K/mm3 (140-440)
[2017-01-15 10:01] LABS: INR 1.8 (0.87-1.13)
[2017-01-15 10:08] LABS: Albumin 2.6 g/dL (3.9-5); Albumin/Globulin Ratio 0.7 %; Bilirubin,Total 9.9 mg/dL (0.1-1.2); Calcium 8.1 mg/dL (8.4-10.2); Chloride 104.8 mmol/L (98-107); Potassium 4.9 mmol/L (3.6-5.0); Total Protein 6.5 g/dL (6.3-8.2)
--- NOTE | 2017-01-15 10:27 | Consultation ---
History of Present Illness Consult date: 01/15/17 Requesting physician: JULIANE MONTOYA Reason for consult: other (Acute GI Bleed) History of present illness: PULMONARY/CCM CONSULT NOTE (Full dictation # [id number]) Please see dictated notes for full details Past History Past Medical History: hypertension, liver disease (ESLD (EtOH, active 2 months ago; hx of bleeding EV requiring TIPS 11/2016)), renal failure Past Surgical History: Other (TIPS) Social history: smoking (Hx of tobacco; quit 7 years ago), alcohol abuse Family history: other (Hepatitis in his family) Medications and Allergies Allergies Allergy/AdvReac Type Severity Reaction Status Date / Time No Known Allergies Allergy Verified 05/20/16 08:19 Home Medications Medication Instructions Recorded Confirmed Last Taken Type Cyanocobalamin [Vitamin B-12] 1,000 mcg PO DAILY 11/26/15 11/26/15 11/26/15 History Folic Acid [Folvite] 1 mg PO QDAY 11/26/15 11/26/15 11/26/15 History Furosemide [Lasix TAB] 40 mg PO QDAY 11/26/15 11/26/15 11/26/15 History Magnesium Oxide 420 mg PO BID 11/26/15 11/26/15 11/26/15 History amLODIPine [Norvasc] 5 mg PO DAILY 11/26/15 11/26/15 11/26/15 History Dicyclomine [Bentyl] 10 mg PO QID PRN #20 capsule 11/27/15 Unknown Rx Famotidine [Pepcid] 20 mg PO QDAY #20 tablet 11/27/15 Unknown Rx Ondansetron [Zofran Odt] 4 mg PO QID PRN #20 tab.rapdis 11/27/15 Unknown Rx Active Meds: Active Medications Furosemide (Lasix) 40 mg IV QDAY RIVKA Last Admin: 01/14/17 21:09 Dose: 40 mg Octreotide Acetate 500 mcg/ (Sodium Chloride) 101 mls @ 5.05 mls/hr IV ONCE.ED ONE; 25 MCG/HR PRN Reason: Protocol Stop: 01/15/17 11:59 Last Admin: 01/14/17 16:14 Dose: 25 mcg/hr, 5.05 mls/hr Dextrose (D5w) 1,000 mls @ 100 mls/hr IV DIRECT RIVKA Last Admin: 01/14/17 23:00 Dose: 100 mls/hr Sodium Chloride (Nacl 0.9% 500 Ml) 500 mls @ 42 mls/hr IV ONCE ONE Stop: 01/15/17 11:01 Last Admin: 01/15/17 01:25 Dose: Not Given Ondansetron HCl (Zofran) 4 mg IV Q8H PRN PRN Reason: N/V unrelieved by Reglan Pantoprazole Sodium (Protonix) 40 mg IV BID [facility] Last Admin: 01/15/17 01:25 Dose: 40 mg Rifaximin (Xifaxan) 550 mg PO BID [facility] Last Admin: 01/15/17 01:25 Dose: 550 mg Sodium Bicarbonate (Sodium Bicarbonate) 650 mg PO BID [facility] Spironolactone (Aldactone) 25 mg PO QDAY [facility] Physical Examination Vital signs: Vital Signs Temp Pulse Resp BP Pulse Ox 98.3 F 68 20 95/51 96 01/14/17 13:55 01/14/17 13:55 01/14/17 13:55 01/14/17 13:55 01/14/17 13:55 Results - Laboratory Findings CBC and BMP: 01/15/17 09:24 01/15/17 09:24 PT/INR, D-dimer PT 20.9 Sec. (12.2-14.9) H 01/15/17 09:24 INR 1.80 (0.87-1.13) H 01/15/17 09:24 Abnormal lab findings: Abnormal Labs 01/14/17 01/14/17 01/14/17 21:00 21:56 21:56 WBC 12.2 H RBC 2.52 L Hgb 7.5 L Hct 22.3 L D RDW 16.8 H Plt Count 55 L Lymph % (Auto) [place] % (Auto) 11.4 H [place] # 1.4 H Seg Neutrophils % 72.5 H Seg Neutrophils # 8.9 H PT 23.1 H INR 2.04 H Carbon Dioxide 15 L BUN 106 H Creatinine 4.8 H Glucose 109 H Calcium 7.7 L Total Bilirubin AST Albumin 01/15/17 01/15/17 01/15/17 09:24 09:24 09:24 WBC RBC 2.23 L Hgb 6.7 L Hct 19.6 L* RDW 17.4 H Plt Count 72 L Lymph % (Auto) 12.9 L [place] % (Auto) 9.9 H [place] # 1.0 H Seg Neutrophils % 74.4 H Seg Neutrophils # 7.8 H PT 20.9 H INR 1.80 H Carbon Dioxide 14 L BUN 108 H Creatinine 4.5 H Glucose 102 H Calcium 8.1 L Total Bilirubin 9.90 H AST 65 H Albumin 2.6 L
[2017-01-15] MEDS: ALDACTONE PO SCH (10:50)
[2017-01-15] MEDS: SODIUM BICARBONATE PO SCH ×2 (10:50→22:17)
[2017-01-15] MEDS ORDERED: NACL 0.9% 500 ML 500 ML IV ONE (12:00)
[2017-01-15] MEDS: D5W 1,000 ML IV SCH ×2 (12:11→23:09)
[2017-01-15] MEDS: SandoSTATIN 500 MCG in NACL 0.9% 100 ML IV SCH (14:14)
[2017-01-15] MEDS ORDERED: MORPHINE IV PRN (14:22)
[2017-01-15] MEDS ORDERED: NACL 0.9% 500 ML 500 ML ONE (14:49)
--- NOTE | 2017-01-15 16:54 | Consultation ---
History of Present Illness - Reason for Consult Consult date: 01/15/17 acute renal failure - History of Present Illness Mr. Chisholm is a 61yo who presented to the ED with one day hx of rectal bleeding. He reports onset of diarrhea yesterday but stated that stools became dark red today. He denies abdominal pain, nausea and vomiting. He denies SOB. His primary complaint is right leg pain. Past History Past Medical History: hypertension, liver disease (ESLD (EtOH, active 2 months ago; hx of bleeding EV requiring TIPS 11/2016)), renal failure Past Surgical History: Other (TIPS) Social history: smoking (Hx of tobacco; quit 7 years ago), alcohol abuse Family history: other (Hepatitis in his family) Medications and Allergies Allergies Allergy/AdvReac Type Severity Reaction Status Date / Time No Known Allergies Allergy Verified 05/20/16 08:19 Home Medications Medication Instructions Recorded Confirmed Last Taken Type Cyanocobalamin [Vitamin B-12] 1,000 mcg PO DAILY 11/26/15 11/26/15 11/26/15 History Folic Acid [Folvite] 1 mg PO QDAY 11/26/15 11/26/15 11/26/15 History Furosemide [Lasix TAB] 40 mg PO QDAY 11/26/15 11/26/15 11/26/15 History Magnesium Oxide 420 mg PO BID 11/26/15 11/26/15 11/26/15 History amLODIPine [Norvasc] 5 mg PO DAILY 11/26/15 11/26/15 11/26/15 History Dicyclomine [Bentyl] 10 mg PO QID PRN #20 capsule 11/27/15 Unknown Rx Famotidine [Pepcid] 20 mg PO QDAY #20 tablet 11/27/15 Unknown Rx Ondansetron [Zofran Odt] 4 mg PO QID PRN #20 tab.rapdis 11/27/15 Unknown Rx Active Meds: Active Medications Furosemide (Lasix) 40 mg IV QDAY RIVKA Last Admin: 01/14/17 21:09 Dose: 40 mg Dextrose (D5w) 1,000 mls @ 100 mls/hr IV DIRECT RIVKA Last Admin: 01/15/17 12:11 Dose: 100 mls/hr Octreotide Acetate 500 mcg/ (Sodium Chloride) 101 mls @ 5.05 mls/hr IV TITR RIVKA ; 25 MCG/HR PRN Reason: Protocol Last Admin: 01/15/17 14:14 Dose: 25 mcg/hr, 5.05 mls/hr Morphine Sulfate (Morphine) 1 mg IV Q4H PRN PRN Reason: Pain, Moderate (4-6) Last Admin: 01/15/17 15:02 Dose: 1 mg Ondansetron HCl (Zofran) 4 mg IV Q8H PRN PRN Reason: N/V unrelieved by Reglan Pantoprazole Sodium (Protonix) 40 mg IV BID [facility] Last Admin: 01/15/17 12:03 Dose: 40 mg Rifaximin (Xifaxan) 550 mg PO BID [facility] Last Admin: 01/15/17 10:50 Dose: 550 mg Sodium Bicarbonate (Sodium Bicarbonate) 650 mg PO BID [facility] Spironolactone (Aldactone) 25 mg PO QDAY [facility] Last Admin: 01/15/17 10:50 Dose: 25 mg Review of Systems Constitutional: no fever, no chills, no sweats Cardiovascular: no chest pain Respiratory: no shortness of breath, no dyspnea on exertion Gastrointestinal: abdominal pain, no nausea, no vomiting, no diarrhea, no constipation Integumentary: no rash Exam - Vital Signs Vital signs: Vital Signs Temp Pulse Resp BP Pulse Ox 98.3 F 68 20 95/51 96 01/14/17 13:55 01/14/17 13:55 01/14/17 13:55 01/14/17 13:55 01/14/17 13:55 - General Appearance General appearance: well-developed, well-nourished EENT: ATNC Respiratory: Clear to Ascultation, Normal Exam Heart: regular, S1S2 Gastrointestinal: Present: tenderness. Absent: distended Integumentary: no rash Neurologic: no focal deficit Psychiatric: cooperative Results - Lab Results 01/15/17 09:24 01/15/17 09:24 Most recent lab results Calcium 8.1 mg/dL (8.4-10.2) L 01/15/17 09:24 Magnesium 2.00 mg/dL (1.7-2.3) 01/14/17 21:00 Assessment and Plan Impression: * Nonoliguric CARMEN secondary to prerenal azotemia due to hypoperfusion related to ABL vs ATN vs HRS * Severe anemia secondary to ABL * Rectal bleeding * Cirrhosis w/ esophageal varices * Metabolic acidosis * Hyperkalemia, mild - resolved * Hyperbilirubinemia Plan: * No acute indication for renal replacement therapy - renal function is guarded * Hold diuretics for now - patient is hypotensive w/ SBP in 90-100s * Obtain renal u/s * Obtain serologic work up and urine studies * Transfusion pRBC per primary team * Gastroenterology following - recommendations noted * Medical management of electrolytes * Avoid potential nephrotoxic agents * Dose medications for renal function
--- NOTE | 2017-01-15 23:09 | Gastroenterology Progress Note ---
Assessment and Plan 1. GI bleed 2. Decompensated cirrhosis 3. Encephalopathy -prelim imaging report with patent TIPS -H/H with slight drop from yesterday, but mostly stable, and currently HD stable -may have component of alc hep as well given pattern of liver enzyme elevation -lactulose with goal of 2-3 bm's daily, xifaxin, electrolyte repletions for encephalopathy -empiric abx x 5-7 days (GI bleeding in setting of cirrhosis) -will follow Subjective Date of service: 01/15/17 Principal diagnosis: cirrhosis, GI bleed Interval history: pt seen and examined. Awake, answering questions but seems mildly confused. Denies bleeding episodes today, abd pain, or n/v. Objective - Exam Narrative Exam: Gen: NAD, awake/appears confused Eyes: +icterus CV: RRR Lungs: CTAB, non labored Abd: soft, mild dist, nt, +bs Ext: + edema - Constitutional Vitals: Temp Pulse Resp BP Pulse Ox 98.5 F 64 17 111/68 95 01/15/17 16:04 01/15/17 17:01 01/15/17 17:01 01/15/17 17:01 01/15/17 17:01 - Labs CBC & Chem 7: 01/15/17 09:24 01/15/17 09:24 Labs: Laboratory Results - last 24 hr 01/15/17 01/15/17 01/15/17 09:24 09:24 09:24 WBC 10.5 RBC 2.23 L Hgb 6.7 L Hct 19.6 L* MCV 88 MCH 30 MCHC 34 RDW 17.4 H Plt Count 72 L Lymph % (Auto) 12.9 L [place] % (Auto) 9.9 H Eos % (Auto) 2.2 Baso % (Auto) 0.6 Lymph # 1.3 [place] # 1.0 H Eos # 0.2 Baso # 0.1 Seg Neutrophils % 74.4 H Seg Neutrophils # 7.8 H PT 20.9 H INR 1.80 H Sodium 139 Potassium 4.9 Chloride 104.8 Carbon Dioxide 14 L Anion Gap 25 BUN 108 H Creatinine 4.5 H Estimated GFR 16 BUN/Creatinine Ratio 24.00 Glucose 102 H Calcium 8.1 L Total Bilirubin 9.90 H AST 65 H ALT 30 Alkaline Phosphatase 72 Total Protein 6.5 Albumin 2.6 L Albumin/Globulin Ratio 0.7 Urine Creatinine Urine Sodium 01/15/17 16:55 WBC RBC Hgb Hct MCV MCH MCHC RDW Plt Count Lymph % (Auto) [place] % (Auto) Eos % (Auto) Baso % (Auto) Lymph # [place] # Eos # Baso # Seg Neutrophils % Seg Neutrophils # PT INR Sodium Potassium Chloride Carbon Dioxide Anion Gap BUN Creatinine Estimated GFR BUN/Creatinine Ratio Glucose Calcium Total Bilirubin AST ALT Alkaline Phosphatase Total Protein Albumin Albumin/Globulin Ratio Urine Creatinine 52.1 H Urine Sodium 75
[2017-01-16 07:28] LABS: Hematocrit 20.3 % (35.5-45.6); Hemoglobin 7.1 gm/dl (11.8-15.2); Mean Corpuscular HGB Conc 35 % (32-34); Mean Corpuscular Hemoglobin 30 pg (28-32); Mean Corpuscular Volume 87 fl (84-94); Red Blood Count 2.34 M/mm3 (3.65-5.03); Red Cell Distribution Width 17.2 % (13.2-15.2); White Blood Count 10.7 K/mm3 (4.5-11.0)
[2017-01-16 07:45] LABS: Albumin 2.4 g/dL (3.9-5); Albumin/Globulin Ratio 0.6 %; BUN/Creatinine Ratio 23.4; Bilirubin,Total 10.6 mg/dL (0.1-1.2); Calcium 8.2 mg/dL (8.4-10.2); Chloride 102.6 mmol/L (98-107); Total Protein 6.6 g/dL (6.3-8.2)
[2017-01-16 07:54] LABS: Platelet Count TNR K/mm3 (140-440)
[2017-01-16] MEDS: D5W 1,000 ML IV SCH ×2 (08:44→22:18)
--- NOTE | 2017-01-16 09:44 | Progress Note ---
Assessment and Plan Assessment and plan: The patient noted some rectal bleeding this morning. He was having diarrhea yesterday but there was no apparent hematochezia. The stool turned dark red today. The patient is not complaining of any acute abdominal pain. The family attributed the diarrhea to chronic lactulose use for presumed hyperammonemia related to his cirrhosis. He has a history of a portacaval shunt. He receives GI care and general medical care at the [facility]. He has had a CT here at this facility which was consistent with cirrhosis. He is not currently consuming alcohol and not for quite some time. He denies any recent vomiting. He does have a history of esophageal varices. (1) GI (gastrointestinal hemorrhage) * GI bleed sec to Portal hypertension and esophageal varices. * GI consult input noted, continue octeriotide and protonix gtt * Patient had banding in the past with TIPS * Transfused 2 units of PRBC and I FFP and 1 PLT * Montior H/H (2) Portal hypertension * Continue Aldactone * Patient 's K slightly high..will watch closely. (3) Acute blood loss anemia-Severe * As noted above * Transfuse as needed (4) Acute prerenal azotemia-secondary to vasomotor nephropathy * IV fluids gently. Patient may be having hepatorenal syndrome. Prognosis is very poor. * Nephrology consult requested. 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 * Thrombocytopenia sec to Cirrhosis and hepatic failure. (7) DVT prophylaxis * SCDs for now. No heparin or Lovenox because of GI bleed and thrombocytopenia. Contraindicated. Awaiting to discuss with patient and family about spine nurse plan. History Interval history: PATIENT SEEN AND EXAMINED, WANTS TO GO HOME. Hospitalist Physical - Constitutional Vitals: Temp Pulse Resp BP Pulse Ox 98.9 F 68 19 117/62 98 01/16/17 07:00 01/16/17 07:00 01/16/17 07:00 01/16/17 07:00 01/16/17 07:00 General appearance: Present: no acute distress, well-nourished - EENT Eyes: Present: PERRL, EOM intact, scleral icterus ENT: hearing intact, clear oral mucosa - Neck Neck: Present: supple, normal ROM - Respiratory Respiratory: bilateral: CTA - Cardiovascular Rhythm: regular Heart Sounds: Present: S1 & S2 - Extremities Extremities: no ischemia, pulses intact Extremity abnormal: edema (2+) Peripheral Pulses: within normal limits - Abdominal General gastrointestinal: soft, non-tender, distended, normal bowel sounds - Integumentary Integumentary: Present: clear, warm - Psychiatric Psychiatric: appropriate mood/affect - Neurologic Neurologic: CNII-XII intact - Allied Health Allied health notes reviewed: nursing Results - Labs CBC & Chem 7: 01/16/17 07:00 01/16/17 07:00 Labs: Laboratory Last Values WBC 10.7 K/mm3 (4.5-11.0) 01/16/17 07:00 RBC 2.34 M/mm3 (3.65-5.03) L 01/16/17 07:00 Hgb 7.1 gm/dl (11.8-15.2) L 01/16/17 07:00 Hct 20.3 % (35.5-45.6) L 01/16/17 07:00 MCV 87 fl (84-94) 01/16/17 07:00 MCH 30 pg (28-32) 01/16/17 07:00 MCHC 35 % (32-34) H 01/16/17 07:00 RDW 17.2 % (13.2-15.2) H 01/16/17 07:00 Plt Count TNR 01/16/17 07:00 Lymph % (Auto) 12.9 % (13.4-35.0) L 01/15/17 09:24 [place] % (Auto) 9.9 % (0.0-7.3) H 01/15/17 09:24 Eos % (Auto) 2.2 % (0.0-4.3) 01/15/17 09:24 Baso % (Auto) 0.6 % (0.0-1.8) 01/15/17 09:24 Lymph # 1.3 K/mm3 (1.2-5.4) 01/15/17 09:24 [place] # 1.0 K/mm3 (0.0-0.8) H 01/15/17 09:24 Eos # 0.2 K/mm3 (0.0-0.4) 01/15/17 09:24 Baso # 0.1 K/mm3 (0.0-0.1) 01/15/17 09:24 Add Manual Diff Complete 01/14/17 14:28 Total Counted 100 01/14/17 14:28 Seg Neutrophils % 74.4 % (40.0-70.0) H 01/15/17 09:24 Seg Neuts % (Manual) 88.0 % (40.0-70.0) H 01/14/17 14:28 Band Neutrophils % 0 % 01/14/17 14:28 Lymphocytes % (Manual) 4.0 % (13.4-35.0) L 01/14/17 14:28 Reactive Lymphs % (Man) 0 % 01/14/17 14:28 Monocytes % (Manual) 6.0 % (0.0-7.3) 01/14/17 14:28 Eosinophils % (Manual) 1.0 % (0.0-4.3) 01/14/17 14:28 Basophils % (Manual) 1.0 % (0.0-1.8) 01/14/17 14:28 Metamyelocytes % 0 % 01/14/17 14:28 Myelocytes % 0 % 01/14/17 14:28 Promyelocytes % 0 % 01/14/17 14:28 Blast Cells % 0 % 01/14/17 14:28 Nucleated RBC % Not Reportable 01/14/17 14:28 Seg Neutrophils # 7.8 K/mm3 (1.8-7.7) H 01/15/17 09:24 Seg Neutrophils # Man 9.9 K/mm3 (1.8-7.7) H 01/14/17 14:28 Band Neutrophils # 0.0 K/mm3 01/14/17 14:28 Lymphocytes # (Manual) 0.5 K/mm3 (1.2-5.4) L 01/14/17 14:28 Abs React Lymphs (Man) 0.0 K/mm3 01/14/17 14:28 Monocytes # (Manual) 0.7 K/mm3 (0.0-0.8) 01/14/17 14:28 Eosinophils # (Manual) 0.1 K/mm3 (0.0-0.4) 01/14/17 14:28 Basophils # (Manual) 0.1 K/mm3 (0.0-0.1) 01/14/17 14:28 Metamyelocytes # 0.0 K/mm3 01/14/17 14:28 Myelocytes # 0.0 K/mm3 01/14/17 14:28 Promyelocytes # 0.0 K/mm3 01/14/17 14:28 Blast Cells # 0.0 K/mm3 01/14/17 14:28 WBC Morphology Not Reportable 01/14/17 14:28 Hypersegmented Neuts Not Reportable 01/14/17 14:28 Hyposegmented Neuts Not Reportable 01/14/17 14:28 Hypogranular Neuts Not Reportable 01/14/17 14:28 Smudge Cells Not Reportable 01/14/17 14:28 Toxic Granulation Not Reportable 01/14/17 14:28 Toxic Vacuolation Not Reportable 01/14/17 14:28 Dohle Bodies Not Reportable 01/14/17 14:28 Pelger-Huet Anomaly Not Reportable 01/14/17 14:28 Eriberto Rods Not Reportable 01/14/17 14:28 Platelet Estimate Consistent w auto 01/14/17 14:28 Clumped Platelets Not Reportable 01/14/17 14:28 Plt Clumps, EDTA Not Reportable 01/14/17 14:28 Large Platelets Not Reportable 01/14/17 14:28 Giant Platelets Not Reportable 01/14/17 14:28 Platelet Satelliting Not Reportable 01/14/17 14:28 Plt Morphology Comment Not Reportable 01/14/17 14:28 RBC Morphology Not Reportable 01/14/17 14:28 Dimorphic RBCs Not Reportable 01/14/17 14:28 Polychromasia Not Reportable 01/14/17 14:28 Hypochromasia Not Reportable 01/14/17 14:28 Poikilocytosis 1+ 01/14/17 14:28 Anisocytosis Not Reportable 01/14/17 14:28 Microcytosis Not Reportable 01/14/17 14:28 Macrocytosis Not Reportable 01/14/17 14:28 Spherocytes Not Reportable 01/14/17 14:28 Pappenheimer Bodies Not Reportable 01/14/17 14:28 Sickle Cells Not Reportable 01/14/17 14:28 Target Cells Few 01/14/17 14:28 Tear Drop Cells Not Reportable 01/14/17 14:28 Ovalocytes Not Reportable 01/14/17 14:28 Helmet Cells Not Reportable 01/14/17 14:28 [place] Bodies Not Reportable 01/14/17 14:28 [place] Rings Not Reportable 01/14/17 14:28 [place] Cells Not Reportable 01/14/17 14:28 Bite Cells Not Reportable 01/14/17 14:28 Crenated Cell Not Reportable 01/14/17 14:28 Elliptocytes Not Reportable 01/14/17 14:28 Acanthocytes (Spur) Not Reportable 01/14/17 14:28 Rouleaux Not Reportable 01/14/17 14:28 Hemoglobin C Crystals Not Reportable 01/14/17 14:28 Schistocytes Not Reportable 01/14/17 14:28 Malaria parasites Not Reportable 01/14/17 14:28 [place] Bodies Not Reportable 01/14/17 14:28 Hem Pathologist Commnt No 01/14/17 14:28 PT 20.9 Sec. (12.2-14.9) H 01/15/17 09:24 INR 1.80 (0.87-1.13) H 01/15/17 09:24 APTT 54.4 Sec. (24.2-36.6) H 01/14/17 14:28 Sodium 137 mmol/L (137-145) 01/16/17 07:00 Potassium 5.0 mmol/L (3.6-5.0) 01/16/17 07:00 Chloride 102.6 mmol/L (98-107) 01/16/17 07:00 Carbon Dioxide 15 mmol/L (22-30) L 01/16/17 07:00 Anion Gap 24 mmol/L 01/16/17 07:00 BUN 103 mg/dL (9-20) H 01/16/17 07:00 Creatinine 4.4 mg/dL (0.8-1.5) H 01/16/17 07:00 Estimated GFR 17 ml/min 01/16/17 07:00 BUN/Creatinine Ratio 23.40 % 01/16/17 07:00 Glucose 106 mg/dL (75-100) H 01/16/17 07:00 Calcium 8.2 mg/dL (8.4-10.2) L 01/16/17 07:00 Magnesium 2.00 mg/dL (1.7-2.3) 01/14/17 21:00 Total Bilirubin 10.60 mg/dL (0.1-1.2) H 01/16/17 07:00 AST 71 units/L (5-40) H 01/16/17 07:00 ALT 30 units/L (7-56) 01/16/17 07:00 Alkaline Phosphatase 68 units/L (35-129) 01/16/17 07:00 Ammonia 25.0 umol/L (25-60) 01/14/17 15:55 Total Protein 6.6 g/dL (6.3-8.2) 01/16/17 07:00 Albumin 2.4 g/dL (3.9-5) L 01/16/17 07:00 Albumin/Globulin Ratio 0.6 % 01/16/17 07:00 Lipase 208 units/L (13-60) H 01/14/17 14:28 Urine Color Aye (Yellow) 01/14/17 17:15 Urine Turbidity Cloudy (Clear) 01/14/17 17:15 Urine pH 5.0 (5.0-7.0) 01/14/17 17:15 Ur Specific [place] 1.013 (1.003-1.030) 01/14/17 17:15 Urine Protein 30 mg/dl mg/dL (Negative) 01/14/17 17:15 Urine Glucose (UA) Neg mg/dL (Negative) 01/14/17 17:15 Urine Ketones Neg mg/dL (Negative) 01/14/17 17:15 Urine Blood Mod (Negative) 01/14/17 17:15 Urine Nitrite Neg (Negative) 01/14/17 17:15 Urine Bilirubin Neg (Negative) 01/14/17 17:15 Urine Urobilinogen < 2.0 mg/dL (<2.0) 01/14/17 17:15 Ur Leukocyte Esterase Neg (Negative) 01/14/17 17:15 Urine WBC (Auto) 1.0 /HPF (0.0-6.0) 01/14/17 17:15 Urine RBC (Auto) 8.0 /HPF (0.0-6.0) 01/14/17 17:15 Urine Bacteria (Auto) 2+ /HPF (Negative) 01/14/17 17:15 Urine Creatinine 52.1 mg/dL (0.1-20.0) H 01/15/17 16:55 Urine Sodium 75 mEq/L 01/15/17 16:55 Blood Type A NEGATIVE 01/14/17 14:35 Antibody Screen Negative 01/14/17 14:35 Crossmatch See Detail 01/14/17 14:35 - Imaging and Cardiology Chest x-ray: image reviewed (b/l pleural effusion)
--- NOTE | 2017-01-16 09:44 | Progress Note ---
Assessment and Plan Assessment and plan: The patient noted some rectal bleeding this morning. He was having diarrhea yesterday but there was no apparent hematochezia. The stool turned dark red today. The patient is not complaining of any acute abdominal pain. The family attributed the diarrhea to chronic lactulose use for presumed hyperammonemia related to his cirrhosis. He has a history of a portacaval shunt. He receives GI care and general medical care at the [facility]. He has had a CT here at this facility which was consistent with cirrhosis. He is not currently consuming alcohol and not for quite some time. He denies any recent vomiting. He does have a history of esophageal varices. (1) GI (gastrointestinal hemorrhage) * GI bleed sec to Portal hypertension and esophageal varices. * GI consult input noted, continue octeriotide and protonix gtt * Patient had banding in the past with TIPS * Transfused 3 units of PRBC and 2 FFP and 1 PLT * Montior H/H (2) Portal hypertension * Continue Aldactone (3) Acute blood loss anemia-Severe * As noted above * Transfuse as needed (4) Acute prerenal azotemia-secondary to vasomotor nephropathy * IV fluids gently. Patient may be having hepatorenal syndrome. Prognosis is very poor. * Nephrology consult requested. (5) metabolic acidosis * Start on bicarbonate by mouth twice a day. (6) Cirrhosis of liver with ascites-WITH POSSIBLE VARICES, and Decompensation * Aldactone 25 mg initiated * started on Hopice care from previous hospitalization * Start on Antibiotics PLAN FOR 5-7 DAYS * Continue lactulose (7) Thrombocytopenia * Platelets to be transfused. * Thrombocytopenia sec to Cirrhosis and hepatic failure. * STABLE TODAY (8) DVT prophylaxis * SCDs for now. No heparin or Lovenox because of GI bleed and thrombocytopenia. Contraindicated. Disposition: When hemoglobin is stable bleeding stopped. The patient is a hospice patient but currently wants treatment for the GI bleed but not any invasive treatment at this time. History Interval history: PATIENT SEEN AND EXAMINED, states he is hungry. No other adverse events reported by nursing staff. No new bleed noted. Reports that he has constant dental bleed which has been going on for months. Hospitalist Physical - Physical exam Narrative exam: VITAL SIGNS: Reviewed. GENERAL: The patient appeared well nourished and normally developed. Vital signs as documented. HEAD: No signs of head trauma. EYES: Pupils are equal. Extraocular motions intact. EARS: Hearing grossly intact. MOUTH: Oropharynx is normal. NECK: No adenopathy, no JVD. CHEST: Chest with clear breath sounds bilaterally. No wheezes, rales, or rhonchi. CARDIAC: Regular rate and rhythm. S1 and S2, without murmurs, gallops, or rubs. VASCULAR: 2+ pitting edema right lower extremity all the way to verify. Peripheral pulses normal and equal in all extremities. ABDOMEN: Soft, without detectable tenderness. No sign of distention. No rebound or guarding, and no masses palpated. Bowel Sounds normal. MUSCULOSKELETAL: Good range of motion of all major joints. Extremities without clubbing, cyanosis. With 2+ edema on the right lower extremity. NEUROLOGIC EXAM: Alert and oriented x 3. No focal sensory or strength deficits. Speech normal. Follows commands. PSYCHIATRIC: Mood normal. SKIN: No rash or lesions. - Constitutional Vitals: Temp Pulse Resp BP Pulse Ox 98.9 F 68 19 117/62 98 01/16/17 07:00 01/16/17 07:00 01/16/17 07:00 01/16/17 07:00 01/16/17 07:00 General appearance: Present: no acute distress, well-nourished Results - Labs CBC & Chem 7: 01/16/17 07:00 01/16/17 07:00 Labs: Laboratory Last Values WBC 10.7 K/mm3 (4.5-11.0) 01/16/17 07:00 RBC 2.34 M/mm3 (3.65-5.03) L 01/16/17 07:00 Hgb 7.1 gm/dl (11.8-15.2) L 01/16/17 07:00 Hct 20.3 % (35.5-45.6) L 01/16/17 07:00 MCV 87 fl (84-94) 01/16/17 07:00 MCH 30 pg (28-32) 01/16/17 07:00 MCHC 35 % (32-34) H 01/16/17 07:00 RDW 17.2 % (13.2-15.2) H 01/16/17 07:00 Plt Count TNR 01/16/17 07:00 Lymph % (Auto) 12.9 % (13.4-35.0) L 01/15/17 09:24 [place] % (Auto) 9.9 % (0.0-7.3) H 01/15/17 09:24 Eos % (Auto) 2.2 % (0.0-4.3) 01/15/17 09:24 Baso % (Auto) 0.6 % (0.0-1.8) 01/15/17 09:24 Lymph # 1.3 K/mm3 (1.2-5.4) 01/15/17 09:24 [place] # 1.0 K/mm3 (0.0-0.8) H 01/15/17 09:24 Eos # 0.2 K/mm3 (0.0-0.4) 01/15/17 09:24 Baso # 0.1 K/mm3 (0.0-0.1) 01/15/17 09:24 Add Manual Diff Complete 01/14/17 14:28 Total Counted 100 01/14/17 14:28 Seg Neutrophils % 74.4 % (40.0-70.0) H 01/15/17 09:24 Seg Neuts % (Manual) 88.0 % (40.0-70.0) H 01/14/17 14:28 Band Neutrophils % 0 % 01/14/17 14:28 Lymphocytes % (Manual) 4.0 % (13.4-35.0) L 01/14/17 14:28 Reactive Lymphs % (Man) 0 % 01/14/17 14:28 Monocytes % (Manual) 6.0 % (0.0-7.3) 01/14/17 14:28 Eosinophils % (Manual) 1.0 % (0.0-4.3) 01/14/17 14:28 Basophils % (Manual) 1.0 % (0.0-1.8) 01/14/17 14:28 Metamyelocytes % 0 % 01/14/17 14:28 Myelocytes % 0 % 01/14/17 14:28 Promyelocytes % 0 % 01/14/17 14:28 Blast Cells % 0 % 01/14/17 14:28 Nucleated RBC % Not Reportable 01/14/17 14:28 Seg Neutrophils # 7.8 K/mm3 (1.8-7.7) H 01/15/17 09:24 Seg Neutrophils # Man 9.9 K/mm3 (1.8-7.7) H 01/14/17 14:28 Band Neutrophils # 0.0 K/mm3 01/14/17 14:28 Lymphocytes # (Manual) 0.5 K/mm3 (1.2-5.4) L 01/14/17 14:28 Abs React Lymphs (Man) 0.0 K/mm3 01/14/17 14:28 Monocytes # (Manual) 0.7 K/mm3 (0.0-0.8) 01/14/17 14:28 Eosinophils # (Manual) 0.1 K/mm3 (0.0-0.4) 01/14/17 14:28 Basophils # (Manual) 0.1 K/mm3 (0.0-0.1) 01/14/17 14:28 Metamyelocytes # 0.0 K/mm3 01/14/17 14:28 Myelocytes # 0.0 K/mm3 01/14/17 14:28 Promyelocytes # 0.0 K/mm3 01/14/17 14:28 Blast Cells # 0.0 K/mm3 01/14/17 14:28 WBC Morphology Not Reportable 01/14/17 14:28 Hypersegmented Neuts Not Reportable 01/14/17 14:28 Hyposegmented Neuts Not Reportable 01/14/17 14:28 Hypogranular Neuts Not Reportable 01/14/17 14:28 Smudge Cells Not Reportable 01/14/17 14:28 Toxic Granulation Not Reportable 01/14/17 14:28 Toxic Vacuolation Not Reportable 01/14/17 14:28 Dohle Bodies Not Reportable 01/14/17 14:28 Pelger-Huet Anomaly Not Reportable 01/14/17 14:28 Eriberto Rods Not Reportable 01/14/17 14:28 Platelet Estimate Consistent w auto 01/14/17 14:28 Clumped Platelets Not Reportable 01/14/17 14:28 Plt Clumps, EDTA Not Reportable 01/14/17 14:28 Large Platelets Not Reportable 01/14/17 14:28 Giant Platelets Not Reportable 01/14/17 14:28 Platelet Satelliting Not Reportable 01/14/17 14:28 Plt Morphology Comment Not Reportable 01/14/17 14:28 RBC Morphology Not Reportable 01/14/17 14:28 Dimorphic RBCs Not Reportable 01/14/17 14:28 Polychromasia Not Reportable 01/14/17 14:28 Hypochromasia Not Reportable 01/14/17 14:28 Poikilocytosis 1+ 01/14/17 14:28 Anisocytosis Not Reportable 01/14/17 14:28 Microcytosis Not Reportable 01/14/17 14:28 Macrocytosis Not Reportable 01/14/17 14:28 Spherocytes Not Reportable 01/14/17 14:28 Pappenheimer Bodies Not Reportable 01/14/17 14:28 Sickle Cells Not Reportable 01/14/17 14:28 Target Cells Few 01/14/17 14:28 Tear Drop Cells Not Reportable 01/14/17 14:28 Ovalocytes Not Reportable 01/14/17 14:28 Helmet Cells Not Reportable 01/14/17 14:28 [place] Bodies Not Reportable 01/14/17 14:28 [place] Rings Not Reportable 01/14/17 14:28 [place] Cells Not Reportable 01/14/17 14:28 Bite Cells Not Reportable 01/14/17 14:28 Crenated Cell Not Reportable 01/14/17 14:28 Elliptocytes Not Reportable 01/14/17 14:28 Acanthocytes (Spur) Not Reportable 01/14/17 14:28 Rouleaux Not Reportable 01/14/17 14:28 Hemoglobin C Crystals Not Reportable 01/14/17 14:28 Schistocytes Not Reportable 01/14/17 14:28 Malaria parasites Not Reportable 01/14/17 14:28 [place] Bodies Not Reportable 01/14/17 14:28 Hem Pathologist Commnt No 01/14/17 14:28 PT 20.9 Sec. (12.2-14.9) H 01/15/17 09:24 INR 1.80 (0.87-1.13) H 01/15/17 09:24 APTT 54.4 Sec. (24.2-36.6) H 01/14/17 14:28 Sodium 137 mmol/L (137-145) 01/16/17 07:00 Potassium 5.0 mmol/L (3.6-5.0) 01/16/17 07:00 Chloride 102.6 mmol/L (98-107) 01/16/17 07:00 Carbon Dioxide 15 mmol/L (22-30) L 01/16/17 07:00 Anion Gap 24 mmol/L 01/16/17 07:00 BUN 103 mg/dL (9-20) H 01/16/17 07:00 Creatinine 4.4 mg/dL (0.8-1.5) H 01/16/17 07:00 Estimated GFR 17 ml/min 01/16/17 07:00 BUN/Creatinine Ratio 23.40 % 01/16/17 07:00 Glucose 106 mg/dL (75-100) H 01/16/17 07:00 Calcium 8.2 mg/dL (8.4-10.2) L 01/16/17 07:00 Magnesium 2.00 mg/dL (1.7-2.3) 01/14/17 21:00 Total Bilirubin 10.60 mg/dL (0.1-1.2) H 01/16/17 07:00 AST 71 units/L (5-40) H 01/16/17 07:00 ALT 30 units/L (7-56) 01/16/17 07:00 Alkaline Phosphatase 68 units/L (35-129) 01/16/17 07:00 Ammonia 25.0 umol/L (25-60) 01/14/17 15:55 Total Protein 6.6 g/dL (6.3-8.2) 01/16/17 07:00 Albumin 2.4 g/dL (3.9-5) L 01/16/17 07:00 Albumin/Globulin Ratio 0.6 % 01/16/17 07:00 Lipase 208 units/L (13-60) H 01/14/17 14:28 Urine Color Aye (Yellow) 01/14/17 17:15 Urine Turbidity Cloudy (Clear) 01/14/17 17:15 Urine pH 5.0 (5.0-7.0) 01/14/17 17:15 Ur Specific [place] 1.013 (1.003-1.030) 01/14/17 17:15 Urine Protein 30 mg/dl mg/dL (Negative) 01/14/17 17:15 Urine Glucose (UA) Neg mg/dL (Negative) 01/14/17 17:15 Urine Ketones Neg mg/dL (Negative) 01/14/17 17:15 Urine Blood Mod (Negative) 01/14/17 17:15 Urine Nitrite Neg (Negative) 01/14/17 17:15 Urine Bilirubin Neg (Negative) 01/14/17 17:15 Urine Urobilinogen < 2.0 mg/dL (<2.0) 01/14/17 17:15 Ur Leukocyte Esterase Neg (Negative) 01/14/17 17:15 Urine WBC (Auto) 1.0 /HPF (0.0-6.0) 01/14/17 17:15 Urine RBC (Auto) 8.0 /HPF (0.0-6.0) 01/14/17 17:15 Urine Bacteria (Auto) 2+ /HPF (Negative) 01/14/17 17:15 Urine Creatinine 52.1 mg/dL (0.1-20.0) H 01/15/17 16:55 Urine Sodium 75 mEq/L 01/15/17 16:55 Blood Type A NEGATIVE 01/14/17 14:35 Antibody Screen Negative 01/14/17 14:35 Crossmatch See Detail 01/14/17 14:35
[2017-01-16] MEDS ORDERED: LEVAQUIN PO SCH (10:00)
--- NOTE | 2017-01-16 10:02 | Vascular Lab Report ---
PORTAL VEIN DUPLEX EVALUATION INDICATION: Abdominal pain with concern for portal vein thrombosis. FINDINGS: The portal veins are patent. There is reverse flow. No evidence of internal echogenicity within the portal veins to suggest thrombus. The hepatic veins are patent. The hepatic veins have reversed l flow. No evidence of internal echogenicity within the hepatic veins to suggest thrombus. The visualized portion of the inferior vena cava is patent. TIPS patent IMPRESSION: Patent TIPS. Flow reversal noted in both portal and hepatic veins most likely secondary to portal hypertension.
--- NOTE | 2017-01-16 10:16 | Ultrasound Report ---
ULTRASOUND RENAL BILATERAL HISTORY: Acute renal insufficiency. TECHNIQUE: transabdominal ultrasound with color Doppler interrogation. FINDINGS: The right kidney measures 12.1 x 6.1 x 6.0cm. Right renal cortex: 1.6cm. The left kidney measures 12.8 x 6.7 x 7.2cm. Left renal cortex: 1.8cm. Both kidneys are normal size, contour and position. There is marked increase in renal parenchymal echotexture bilaterally consistent with severe medical renal disease or acute renal failure. There is no evidence for cyst, mass, calculus or hydronephrosis. The bladder is partially decompressed with a Mata catheter. Moderate ascites and right pleural effusion are noted. IMPRESSION: Echogenic kidneys consistent with severe medical renal disease or acute renal failure. No obstructive uropathy. Ascites. Right pleural effusion.
[2017-01-16] MEDS: LASIX IV SCH (10:37)
[2017-01-16] MEDS: ALDACTONE PO SCH (10:37)
[2017-01-16] MEDS: XIFAXAN PO SCH ×2 (10:38→22:11)
[2017-01-16] MEDS: SODIUM BICARBONATE PO SCH ×2 (10:38→20:18)
[2017-01-16 10:43] LABS: INR 1.86 (0.87-1.13)
[2017-01-16] MEDS: SandoSTATIN 500 MCG in NACL 0.9% 100 ML IV SCH (11:00)
[2017-01-16] MEDS: PROTONIX IV SCH ×2 (11:37→22:52)
[2017-01-16] MEDS: FLAGYL PO SCH ×2 (15:34→22:08)
--- NOTE | 2017-01-16 17:44 | Progress Note ---
Assessment and Plan Impression: * Nonoliguric CARMEN secondary to prerenal azotemia due to hypoperfusion related to ABL vs ATN vs HRS * Severe anemia secondary to ABL * Rectal bleeding * Cirrhosis w/ esophageal varices * Metabolic acidosis * Hyperkalemia, mild - resolved * Hyperbilirubinemia Plan: * No acute indication for renal replacement therapy - renal function is guarded - elevated BUN is likely multifactorial, primarily related to GI bleed * Hold Lasix * Await serologic work up; renal u/s reviewed - no hydronephrosis * Transfusion pRBC per primary team * Gastroenterology following - recommendations noted * Medical management of electrolytes * Avoid potential nephrotoxic agents * Dose medications for renal function Subjective Date of service: 01/16/17 Principal diagnosis: cirrhosis, GI bleed Interval history: Patient transferred from ICU to floor yesterday. Requesting something to eat this am. Objective - Vital Signs Vital signs: Vital Signs - 12hr 01/16/17 01/16/17 01/16/17 07:00 10:00 10:37 Temperature 98.9 F Pulse Rate 64 Pulse Rate [ 68 Left] Respiratory 19 Rate Blood Pressure 117/62 117/62 O2 Sat by Pulse 98 Oximetry 01/16/17 16:00 Temperature 98.5 F Pulse Rate Pulse Rate [ 65 Left] Respiratory 17 Rate Blood Pressure 114/65 O2 Sat by Pulse Oximetry - General Appearance General appearance: well-developed, well-nourished EENT: ATNC Respiratory: Present: Clear to Ascultation Cardiology: regular, S1S2 Gastrointestinal: normal Integumentary: no rash Neurologic: no focal deficit Musculoskeletal: other (no edema) Psychiatric: cooperative - Lab 01/16/17 07:00 01/16/17 07:00 Most recent lab results Calcium 8.2 mg/dL (8.4-10.2) L 01/16/17 07:00 Magnesium 2.00 mg/dL (1.7-2.3) 01/14/17 21:00 Urine Creatinine 52.1 mg/dL (0.1-20.0) H 01/15/17 16:55 Urine Sodium 75 mEq/L 01/15/17 16:55
--- NOTE | 2017-01-16 19:18 | Progress Note ---
Assessment and Plan Patient resting on room air.No complaint of chest pain or shortness of breath but complaining cough with productive sputum.O2 saturation 98% on room air. - Patient Problems (1) Bilateral pleural effusion Current Visit: Yes Status: Acute Plan to address problem: Obtaining ultrasound of chest. (2) Alcoholic cirrhosis of liver with ascites Current Visit: Yes Status: Acute Plan to address problem: Management as per primary care and gastroenterology. (3) Acute blood loss anemia Current Visit: Yes Status: Acute Plan to address problem: Management as per primary and gastroenterology and hematology. (4) GI bleeding Current Visit: Yes Status: Acute Qualifiers: GI bleed type/associated pathology: melena Gastritis type: G Qualified Code(s): K92.1 - Melena Plan to address problem: Management as per GI. Subjective Date of service: 01/16/17 Principal diagnosis: cirrhosis, GI bleed Interval history: Patient resting on room air.No complaint of chest pain or shortness of breath but complaining cough with productive sputum.O2 saturation 98% on room air. Objective Vital Signs - 12hr 01/16/17 01/16/17 01/16/17 10:00 10:37 16:00 Temperature 98.5 F Pulse Rate 64 Pulse Rate [ 65 Left] Respiratory 17 Rate Blood Pressure 117/62 114/65 Constitutional: no acute distress, alert Eyes: icteric ENT: oropharynx moist Neck: supple, no lymphadenopathy Ascultation: Bilateral: diminished breath sounds Cardiovascular: regular rate and rhythm Gastrointestinal: normoactive bowel sounds, soft, non-tender Integumentary: normal Extremities: no cyanosis, edema Neurologic: normal mental status, non-focal exam, pupils equal and round, CN II- XII normal Psychiatric: depressed CBC and BMP: 01/16/17 07:00 01/16/17 07:00 ABG, PT/INR, D-dimer: PT/INR, D-dimer PT 21.4 Sec. (12.2-14.9) H 01/16/17 10:12 INR 1.86 (0.87-1.13) H 01/16/17 10:12 Abnormal lab findings: Abnormal Labs 01/14/17 01/14/17 01/14/17 21:00 21:56 21:56 WBC 12.2 H RBC 2.52 L Hgb 7.5 L Hct 22.3 L D MCHC RDW 16.8 H Plt Count 55 L Lymph % (Auto) [place] % (Auto) 11.4 H [place] # 1.4 H Seg Neutrophils % 72.5 H Seg Neutrophils # 8.9 H PT 23.1 H INR 2.04 H Carbon Dioxide 15 L BUN 106 H Creatinine 4.8 H Glucose 109 H Calcium 7.7 L Total Bilirubin AST Albumin Urine Creatinine 01/15/17 01/15/17 01/15/17 09:24 09:24 09:24 WBC RBC 2.23 L Hgb 6.7 L Hct 19.6 L* MCHC RDW 17.4 H Plt Count 72 L Lymph % (Auto) 12.9 L [place] % (Auto) 9.9 H [place] # 1.0 H Seg Neutrophils % 74.4 H Seg Neutrophils # 7.8 H PT 20.9 H INR 1.80 H Carbon Dioxide 14 L BUN 108 H Creatinine 4.5 H Glucose 102 H Calcium 8.1 L Total Bilirubin 9.90 H AST 65 H Albumin 2.6 L Urine Creatinine 01/15/17 01/16/17 01/16/17 16:55 07:00 07:00 WBC RBC 2.34 L Hgb 7.1 L Hct 20.3 L MCHC 35 H RDW 17.2 H Plt Count Lymph % (Auto) [place] % (Auto) [place] # Seg Neutrophils % Seg Neutrophils # PT INR Carbon Dioxide 15 L BUN 103 H Creatinine 4.4 H Glucose 106 H Calcium 8.2 L Total Bilirubin 10.60 H AST 71 H Albumin 2.4 L Urine Creatinine 52.1 H 01/16/17 10:12 WBC RBC Hgb Hct MCHC RDW Plt Count Lymph % (Auto) [place] % (Auto) [place] # Seg Neutrophils % Seg Neutrophils # PT 21.4 H INR 1.86 H Carbon Dioxide BUN Creatinine Glucose Calcium Total Bilirubin AST Albumin Urine Creatinine Chest x-ray: report reviewed (Bilateral pleural effusions greater on the right.) , image reviewed
--- NOTE | 2017-01-16 21:13 | Consultation ---
PULMONARY CRITICAL CARE CONSULT NOTE CONSULTING PHYSICIAN: Jean Claude Mittal MD in the Emergency Room. REASON FOR CONSULTATION: GI bleed, cirrhosis. CHIEF COMPLAINT AND HISTORY OF PRESENT ILLNESS: The patient is a 61-year-old -Greek male with past medical history indeed significant for a diagnosis of liver cirrhosis complicated with a variceal disease, esophageal varices and reportedly also status post TIPS procedure. He actually is reportedly on the hospice care. He came into the Emergency Room complaining of rectal bleeding on about the of this month, a day ago. He reportedly had been having some diarrhea, but there was no bleeding in the stool, dark red on the day of presentation. He denied any abdominal pain. He denied fevers or chills. He denied any trauma. I believe he has a history of alcohol use/abuse, but he reportedly has not drunk for a while. He was evaluated in the Emergency Room and he was admitted to the Intensive Care Unit for a GI bleed. GI consult was placed and he was seen by the GI team. The notes mention that the family was a little bit undecided, as to how aggressive the care they wanted to receive. It was felt that he is indeed a terminal patient. He was placed on octreotide drip, Protonix drip, and he was watchful waiting was the plan. Dopplers of the livers/TIPS was also ordered. When I stopped by to see him, he was resting in bed. He was asking to eat some food. He denied any recurrent GI bleeding. He denied any fevers or chills. He has about a 10+ pack year tobacco smoking history, but tells me he quit smoking over 5 years ago. That really is as much of the history of this presentation as I have. PAST MEDICAL HISTORY: Again, significant amongst other things for liver cirrhosis, history of seizures, history of hepatomegaly, history of a pituitary adenoma, history of cataracts, history of glaucoma, history of anemia, and history of prior GI bleeding. PAST SURGICAL HISTORY: He has had a left fifth toe amputation and right third toe hammertoe deformity. MEDICATIONS: He was on at the time I stopped by to see him, according to the medication administration record included the following: Lasix 40 mg IV daily, morphine sulfate 1 mg IV q.4 hours p.r.n. moderate pain, octreotide drip was going at 25 mcg per hour, Zofran 4 mg IV q. 8 hours p.r.n. nausea and vomiting, Protonix was 40 mg IV b.i.d., rifaximin 550 mg p.o. b.i.d., sodium bicarbonate 650 mg p.o. b.i.d., and Aldactone 25 mg p.o. daily. ALLERGIES: No known drug allergies. DIET: Thin gentleman with central obesity. Denies acute weight loss or gain in the preceding few weeks to months. FAMILY AND SOCIAL HISTORY: Lives in the community, former smoker, 10+ pack years. History of alcohol abuse. Denies current alcohol, tobacco, or illicit drug use or abuse. Family history, otherwise noncontributory. REVIEW OF SYSTEMS: No loss of consciousness. No new onset seizures. No new onset focal weakness. He had gross hematochezia. He had melena. Denied gross hemoptysis. Denied hematemesis. Denied palpitations. Complete 13-system review of systems obtained. Pertinent positives and/or negatives as in body of history above, otherwise they are noncontributory. PHYSICAL EXAMINATION: VITAL SIGNS: At initial presentation in the Emergency Room, he was afebrile, temperature 98.8, pulse was 68, respiratory rate was 20, blood pressure was 95/51, oxygen sats were 96%, inspired oxygen concentration was not recorded. Blood pressures currently holding. At the time I saw him, blood pressure was about 94/61, O2 sats 98% on 2 liters nasal cannula. HEAD, EYES, EARS, NOSE, AND THROAT: Pupils are equal, round, about 3-4 mm, reactive to light. Extraocular muscle movements were intact. He had scleral icterus. Oropharynx is a Mallampati #2 to 3 oropharynx with oropharyngeal pallor. NECK: Grossly, there were no palpable lymph nodes in the supraclavicular or submandibular lymph node chains. No overt jugular venous distention. LUNGS: Auscultation of both lung villalpando, diminished bibasilar air entry, clear, slightly prolonged expiratory phase. No wheezing. HEART: Heart sounds 1 and 2 are heard at the time of my evaluation, regular rate and rhythm. ABDOMEN: Soft, full. Bowel sounds are positive, but diminished. Did not appear tender. EXTREMITIES: Without overt digital clubbing or cyanosis. Trace pedal edema. NEUROLOGIC: The exam was grossly nonfocal. LABORATORY DATA: From my review are as follows: Admission white cell count 11,300 with a hemoglobin of 5.4, hematocrit of 16.3, and platelet count of 50. No band forms were reported on the manual differential. INR was 2.07 at presentation. Serum sodium was 140, potassium 5.2, chloride 106, bicarbonate 16, BUN 109, creatinine 4.5, glucose was 133. Magnesium was 0.2, AST 81, ALT within normal limits. Albumin low at 2.5. Urinalysis negative for nitrites and leukocyte esterase, moderate blood. Today, white cell count is 10.5, hemoglobin 6.7, hematocrit is 19.6, with a platelet count of 72. INR is down to 1.8. BUN is 108 with a creatinine of 4.5. No microbiologic studies. Chest x-ray was done. I have reviewed the radiologist's interpretation. I am pulling up the film, essentially was reported as bilateral pleural effusions, greater on the right, moderate in size, otherwise unremarkable. ASSESSMENT AND PLAN: We have an elderly gentleman who really after my discussion with him seems to be requesting more or less aggressive treatment, really does not want evasive procedures if he can avoid it. He had been refusing some studies earlier today, reporting that he has done the studies earlier at the [facility]. I had an extensive discussion with him explaining to him that the requested procedures are noninvasive and will help guide his therapy. He is feeling better, he wants to eat. He has finally agreed to and I will ask them to call back the vascular team, so he can have the aortoiliac vascular ultrasound. We will follow GI recommendations. We will continue the octreotide drip. He has been hemodynamically stable. No gross hematochezia at this point. We will transfuse packed red cells. Keep an eye on his H and H. If he does develop massive or active bleeding, transfusing FFPs to try and get the INR a little bit lower may be of benefit. We will continue the b.i.d. PPI therapy. Nephrology has been consulted. He is nonoliguric at this point. Probably, some prerenal aspect to his azotemia. Also, some of this may be related to GI bleeding with increasing BUN. Supplemental oxygen will be titrated to keep sats greater than or equal to about 94%. Aspiration precautions will be maintained. After he has gotten the vascular ultrasound, he will be seen by the GI team, at that time, they can decide on whether he will remain n.p.o. or if he will be started on oral diet. Flu and pneumonia vaccination will be per protocol. Thank you very much for the consult, Dr. Mittal, Dr. Pradhan. He is actually more stable and probably can be transferred to the telemetry floor. We will follow along. We will make further recommendations as picture progresses/becomes clearer. JOB# [id number] KLEBER/GOLDIE
--- NOTE | 2017-01-16 22:27 | Gastroenterology Progress Note ---
Assessment and Plan 1. GI bleed - H/H stable, may be subsiding given current description of bm's compared to admission. h/o variceal bleed, s/p recent TIPS (patent on imaging) , so suspect this is lower gi source (although variceal possible). -will hold off on endoscopy for present time -if re-bleeds, obtain bleeding scan 2. Cirrhosis - not a transplant candidate 2/2 alcohol use. Pt was in hospice prior to admission. Recommend re-addressing goals of care with family Subjective Date of service: 01/16/17 Principal diagnosis: cirrhosis, GI bleed Interval history: pt more awake/alert today compared to yesterday. requesting to eat. 2 bm's today (dark maroon blood, mixed with stool per pt's nurse). Pt denies n/v or abd pain. Objective - Exam Narrative Exam: Gen: NAD, awake/alert CV: RRR Lungs: CTAB, non labored Abd: soft, nt, +bs Skin: jaundiced - Constitutional Vitals: Temp Pulse Resp BP Pulse Ox 98.5 F 65 17 114/65 98 01/16/17 16:00 01/16/17 16:00 01/16/17 16:00 01/16/17 16:00 01/16/17 07:00 - Labs CBC & Chem 7: 01/16/17 07:00 01/16/17 07:00 Labs: Laboratory Results - last 24 hr 01/16/17 01/16/17 01/16/17 07:00 07:00 10:12 WBC 10.7 RBC 2.34 L Hgb 7.1 L Hct 20.3 L MCV 87 MCH 30 MCHC 35 H RDW 17.2 H Plt Count TNR PT 21.4 H INR 1.86 H Sodium 137 Potassium 5.0 Chloride 102.6 Carbon Dioxide 15 L Anion Gap 24 BUN 103 H Creatinine 4.4 H Estimated GFR 17 BUN/Creatinine Ratio 23.40 Glucose 106 H Calcium 8.2 L Total Bilirubin 10.60 H AST 71 H ALT 30 Alkaline Phosphatase 68 Total Protein 6.6 Albumin 2.4 L Albumin/Globulin Ratio 0.6
[2017-01-17 06:09] LABS: Hematocrit 20.1 % (35.5-45.6); Hemoglobin 7.1 gm/dl (11.8-15.2); Mean Corpuscular HGB Conc 35 % (32-34); Mean Corpuscular Hemoglobin 31 pg (28-32); Mean Corpuscular Volume 88 fl (84-94); Red Cell Distribution Width 18.1 % (13.2-15.2); White Blood Count 10.5 K/mm3 (4.5-11.0)
[2017-01-17 06:13] LABS: Platelet Count 60 K/mm3 (140-440)
[2017-01-17 06:23] LABS: BUN/Creatinine Ratio 21.33; Calcium 8.2 mg/dL (8.4-10.2); Chloride 98.9 mmol/L (98-107); Potassium 4.6 mmol/L (3.6-5.0)
[2017-01-17] MEDS: FLAGYL PO SCH ×2 (06:43→15:46)
[2017-01-17] MEDS: SODIUM BICARBONATE PO SCH ×2 (08:00→15:46)
--- NOTE | 2017-01-17 08:14 | Progress Note ---
Assessment and Plan Impression: * Nonoliguric CARMEN secondary to prerenal azotemia due to hypoperfusion related to ABL vs ATN vs HRS --Renal u/s reviewed - no hydronephrosis * Severe anemia secondary to ABL * Rectal bleeding * Cirrhosis w/ esophageal varices * Metabolic acidosis * Hyperkalemia, mild - resolved * Hyperbilirubinemia Plan: * No acute indication for renal replacement therapy - renal function is guarded - elevated BUN is likely multifactorial, primarily related to GI bleed * Continue to hold Lasix * Await serologic work up * Transfusion pRBC per primary team * Gastroenterology following - recommendations noted * Medical management of electrolytes * Avoid potential nephrotoxic agents * Dose medications for renal function Subjective Date of service: 01/17/17 Principal diagnosis: cirrhosis, GI bleed Interval history: Patient has no complaints. He is requesting food. Objective - Vital Signs Vital signs: Vital Signs - 12hr 01/16/17 01/17/17 22:00 00:00 Temperature 98.8 F Pulse Rate [ 70 From Monitor] Pulse Rate [ 70 Left] Respiratory 20 Rate Blood Pressure 118/69 O2 Sat by Pulse 97 97 Oximetry - General Appearance General appearance: well-developed, well-nourished EENT: ATNC Respiratory: Present: Clear to Ascultation Cardiology: regular, S1S2 Gastrointestinal: normal, no tenderness, no distended Integumentary: no rash Musculoskeletal: other (No edema) Psychiatric: cooperative - Lab 01/17/17 04:59 01/17/17 04:59 Most recent lab results Calcium 8.2 mg/dL (8.4-10.2) L 01/17/17 04:59 Magnesium 2.00 mg/dL (1.7-2.3) 01/14/17 21:00 Urine Creatinine 52.1 mg/dL (0.1-20.0) H 01/15/17 16:55 Urine Sodium 75 mEq/L 01/15/17 16:55
--- NOTE | 2017-01-17 08:55 | Discharge Summary ---
Providers - Providers Date of Admission: 01/14/17 18:30 Attending physician: RADHIKA TRINIDAD MD 01/14/17 19:34 Consult to Physician [CONS] Routine Consulting Provider: MAGI CAMPBELL Reason For Exam: acute renal failure Place consult to:: marko Notified:: yes Phone number called:: [phone] Was contact made?: Yes If yes, spoke with:: Leanna Time called:: 09:37 Primary care physician: [employer] Hospitalization Condition: Stable Hospital course: The patient noted some rectal bleeding this morning. He was having diarrhea yesterday but there was no apparent hematochezia. The stool turned dark red today. The patient is not complaining of any acute abdominal pain. The family attributed the diarrhea to chronic lactulose use for presumed hyperammonemia related to his cirrhosis. He has a history of a portacaval shunt. He receives GI care and general medical care at the [facility]. He has had a CT here at this facility which was consistent with cirrhosis. He is not currently consuming alcohol and not for quite some time. He denies any recent vomiting. He does have a history of esophageal varices. (1) GI (gastrointestinal hemorrhage) * GI bleed sec to Portal hypertension and esophageal varices. * GI consult input noted, continue octeriotide and protonix gtt * Patient had banding in the past with TIPS * Transfused 3 units of PRBC and 2 FFP and 1 PLT * Montior H/H (2) Portal hypertension * Continue Aldactone (3) Acute blood loss anemia-Severe * As noted above * Transfuse as needed (4) Acute prerenal azotemia-secondary to vasomotor nephropathy * IV fluids gently. Patient may be having hepatorenal syndrome. Prognosis is very poor. * Nephrology consult requested. (5) metabolic acidosis * Start on bicarbonate by mouth twice a day. (6) Cirrhosis of liver with ascites-WITH POSSIBLE VARICES, and Decompensation * Aldactone 25 mg initiated * started on [facility] care from previous hospitalization * Start on Antibiotics PLAN FOR 5-7 DAYS * Continue lactulose (7) Thrombocytopenia * Platelets to be transfused. * Thrombocytopenia sec to Cirrhosis and hepatic failure. * STABLE TODAY (8) DVT prophylaxis * SCDs for now. No heparin or Lovenox because of GI bleed and thrombocytopenia. Contraindicated. Disposition: DC-50 TO HOSPICE (HOME) Time spent for discharge: 33 minutes Core Measure Documentation - Palliative Care Palliative Care/ Comfort Measures: Not Applicable - Core Measures Any of the following diagnoses?: none Exam - Constitutional Vitals: Temp Pulse Resp BP Pulse Ox 99.3 F 71 19 106/63 99 01/17/17 07:00 01/17/17 07:00 01/17/17 07:00 01/17/17 07:00 01/17/17 07:00 Plan Follow up with: PRIMARY CAREMD [Primary Care Provider] - 3-5 Days Forms: Accompanied Note Prescriptions: Cyanocobalamin [Vitamin B-12] 1,000 mcg PO DAILY #30 tablet Folic Acid [Folvite] 1 mg PO QDAY #30 tablet Ondansetron [Zofran Odt] 4 mg PO QID PRN #20 tab.rapdis PRN Reason: Nausea Pantoprazole [Protonix TAB] 40 mg PO BID #60 tablet Rifaximin [Xifaxan] 550 mg PO BID #60 tablet Sodium Bicarbonate 650 mg PO TID #90 tablet Spironolactone [Aldactone] 25 mg PO QDAY #30 tablet
[2017-01-17] MEDS: ALDACTONE PO SCH (10:00)
[2017-01-17] MEDS: XIFAXAN PO SCH (15:49)
--- NOTE | 2017-01-17 16:10 | Ultrasound Report ---
Ultrasound of the chest. History: Pleural effusions. Findings: Bilateral pleural effusions are present. The estimated volume on the left is 617 mL. Estimated volume on the right side is 1247 mL.
[2017-01-17 17:50] VITALS: BP 116/67
[2017-01-17] MEDS ORDERED: PROTONIX PO SCH (22:00)
[2017-01-19 04:56] LABS: Albumin 2.9 g/dL (3.8-4.8); Gamma Globulin 1.7 g/dL (0.8-1.7)
[2017-01-19 12:24] LABS: Myeloperoxidase Antibody <1.0 AI (<1.0)
== END 2017-01-17 18:34 | disposition hospice, home (50) | DRG 368 ==
LOC: ED 13:53 → CC1 18:30 → 3A 01-15 18:09
PROVIDERS: ADMIT Internal Medicine; ATTEND Internal Medicine
PROC: 30233K1 Transfusion of Nonautologous Frozen Plasma into Peripheral Vein, Percutaneous Approach (ICD-10-PCS; principal; 2017-01-14)
PROC: 30233N1 Transfusion of Nonautologous Red Blood Cells into Peripheral Vein, Percutaneous Approach (ICD-10-PCS; 2017-01-14)
PROC: 30233R1 Transfusion of Nonautologous Platelets into Peripheral Vein, Percutaneous Approach (ICD-10-PCS; 2017-01-14)
PROC: 30233L1 Transfusion of Nonautologous Fresh Plasma into Peripheral Vein, Percutaneous Approach (ICD-10-PCS; 2017-01-14)
DX: I85.11 Secondary esophageal varices with bleeding (principal); N17.0 Acute kidney failure with tubular necrosis; G93.40 Encephalopathy, unspecified; D62 Acute posthemorrhagic anemia; K76.6 Portal hypertension; E87.2 Acidosis; J90 Pleural effusion, not elsewhere classified; K70.31 Alcoholic cirrhosis of liver with ascites; D69.6 Thrombocytopenia, unspecified; I10 Essential (primary) hypertension; Z87.891 Personal history of nicotine dependence; Z89.422 Acquired absence of other left toe(s); Z89.421 Acquired absence of other right toe(s); E87.5 Hyperkalemia; E80.6 Other disorders of bilirubin metabolism
CPT/HCPCS: 36415; 36430; 71010; 76604; 76770; 80048; 80053; 81001; 82140; 82570; 83690; 83735; 84165; 84300; 85007; 85025; 85027; 85610; 85730; 86021; 86160; 86334; 86850; 86900; 86901; 86920; 93005; 93010; 93979; 96361; 96374; 96375; 99292; C9113; J1940; J2270; J2354; J7030; J7040; J7070; P9016; P9017; P9035

== ENCOUNTER 2017-06-28 13:20 | Inpatient (IN) | payer MEDICARE ==
[2017-06-28 14:18] LABS: Basophils # (Auto) 0.1 K/mm3 (0.0-0.1); Basophils % (Auto) 1.2 % (0.0-1.8); Eosinophils # (Auto) 0.2 K/mm3 (0.0-0.4); Eosinophils % (Auto) 3.1 % (0.0-4.3); Hematocrit 20.1 % (35.5-45.6); Lymphocytes % (Auto) 18.1 % (13.4-35.0); Mean Corpuscular HGB Conc 35 % (32-34); Mean Corpuscular Hemoglobin 33 pg (28-32); Mean Corpuscular Volume 94 fl (84-94); Monocytes # (Auto) 0.7 K/mm3 (0.0-0.8); Monocytes % (Auto) 11.9 % (0.0-7.3); Platelet Count 149 K/mm3 (140-440); Red Blood Count 2.14 M/mm3 (3.65-5.03); Red Cell Distribution Width 22.2 % (13.2-15.2)
[2017-06-28 14:39] LABS: Albumin 3.5 g/dL (3.9-5); Calcium 9.2 mg/dL (8.4-10.2)
[2017-06-28] MEDS ORDERED: NACL 0.9% 1000 ML 1,000 ML IV ONE (16:13)
[2017-06-28] MEDS ORDERED: ZOFRAN IV ONE (16:13)
[2017-06-28] MEDS ORDERED: NACL 0.9% 500 ML 500 ML IV ONE (16:13)
--- NOTE | 2017-06-28 16:38 | Emergency Department Report ---
- General Chief complaint: Weakness Stated complaint: NEEDS TRANSFUSION Time Seen by Provider: 06/28/17 15:59 Source: patient Mode of arrival: Ambulatory Limitations: No Limitations - History of Present Illness Initial comments: Patient is a 62-year-old male who is presenting with weakness. [facility] Patient had his hemoglobin checked 2 days ago was low. The patient's complaining of weakness or exertional shortness of breath fatigue. Patient has had several blood transfusions in the past his anemia is From Unknown Source. Patient Has Had Colonoscopies EGDs As Well As Recent Hemoccult That Have Been Normal. Patient Denies Any Chest Pain at This Time. Patient Does Have Has Had 2 Days of Nausea Vomiting but Is Denying Any Abdominal Pain at This Time MD Complaint: generalized weakness - Related Data Previous Rx's Medication Instructions Recorded Last Taken Type Cyanocobalamin [Vitamin B-12] 1,000 mcg PO DAILY #30 tablet 06/18/17 Unknown Rx Ferrous Gluconate [Fergon 325 MG 325 mg PO DAILY #30 tablet 06/18/17 Unknown Rx tab] Folic Acid [Folvite] 1 mg PO DAILY #30 tablet 06/18/17 Unknown Rx Lactulose [Constulose] 30 ml PO TID #30 solution 06/18/17 Unknown Rx Pantoprazole [Protonix TAB] 40 mg PO BID #60 tablet 06/18/17 Unknown Rx Rifaximin [Xifaxan] 550 mg PO BID #60 tablet 06/18/17 Unknown Rx Sodium Bicarbonate 1,300 mg PO BID #60 tablet 06/18/17 Unknown Rx Spironolactone [Aldactone] 25 mg PO DAILY #30 tablet 06/18/17 Unknown Rx Allergies Allergy/AdvReac Type Severity Reaction Status Date / Time acetazolamide Allergy Unknown Verified 06/13/17 10:58 codeine Allergy Rash Verified 06/13/17 10:57 ED Review of Systems ROS: Stated complaint: NEEDS TRANSFUSION Other details as noted in HPI Comment: All other systems reviewed and negative ED Past Medical Hx - Past Medical History Hx Hypertension: Yes Hx Congestive Heart Failure: No Hx Diabetes: No Hx Liver Disease: Yes Hx Seizures: Yes Hx Asthma: No Hx COPD: No Hx HIV: No Additional medical history: enlarged liver, pituitary adenoma, cirrhosis with ascites. cataracts. glaucoma. anemia. GI bleed - Surgical History Additional Surgical History: left 5th toe ampuated. right third toe (hammertoe) - Social History Smoking Status: Never Smoker Substance Use Type: None - Medications Home Medications: Home Medications Medication Instructions Recorded Confirmed Last Taken Type Cyanocobalamin [Vitamin B-12] 1,000 mcg PO DAILY #30 tablet 06/18/17 Unknown Rx Ferrous Gluconate [Fergon 325 MG 325 mg PO DAILY #30 tablet 06/18/17 Unknown Rx tab] Folic Acid [Folvite] 1 mg PO DAILY #30 tablet 06/18/17 Unknown Rx Lactulose [Constulose] 30 ml PO TID #30 solution 06/18/17 Unknown Rx Pantoprazole [Protonix TAB] 40 mg PO BID #60 tablet 06/18/17 Unknown Rx Rifaximin [Xifaxan] 550 mg PO BID #60 tablet 06/18/17 Unknown Rx Sodium Bicarbonate 1,300 mg PO BID #60 tablet 06/18/17 Unknown Rx Spironolactone [Aldactone] 25 mg PO DAILY #30 tablet 06/18/17 Unknown Rx ED Physical Exam - General Limitations: No Limitations General appearance: alert, in no apparent distress - Head Head exam: Present: atraumatic, normocephalic - Eye Eye exam: Present: normal appearance - ENT ENT exam: Present: mucous membranes moist - Neck Neck exam: Present: normal inspection - Respiratory Respiratory exam: Present: normal lung sounds bilaterally. Absent: respiratory distress, wheezes, rales, rhonchi - Cardiovascular Cardiovascular Exam: Present: regular rate, normal rhythm. Absent: systolic murmur, diastolic murmur, rubs, gallop - GI/Abdominal GI/Abdominal exam: Present: soft, normal bowel sounds. Absent: distended, tenderness - Rectal Rectal exam: Present: deferred - Extremities Exam Extremities exam: Present: normal inspection - Back Exam Back exam: Present: normal inspection - Neurological Exam Neurological exam: Present: alert, oriented X3 - Psychiatric Psychiatric exam: Present: normal affect, normal mood - Skin Skin exam: Present: warm, dry, intact, normal color. Absent: rash ED Course Vital Signs 06/28/17 13:35 Temperature 98.3 F Pulse Rate 79 Respiratory 16 Rate Blood Pressure 123/66 O2 Sat by Pulse 93 Oximetry ED Medical Decision Making - Lab Data Result diagrams: 06/28/17 14:01 06/28/17 14:01 - Medical Decision Making Patient is a 62-year-old [place] male who is presenting with weakness nausea vomiting and low hemoglobin. Patient was recently admitted here in the hospital for similar complaints. Patient was seen by GI and had an EGD and colonoscopy first did not show any source of bleeding patient also seen by nephrology was thought to have prerenal azotemia causing some acute renal failure. Patient's symptoms today and laboratory studies are all very similar to his last visit. Consulted Dr. Sevilla to review the case to see if the patient meets criteria for readmission for further studies Dr. Sevilla did see the patient and stated that we should admit the patient for further management Critical care attestation.: If time is entered above; I have spent that time in minutes in the direct care of this critically ill patient, excluding procedure time. ED Disposition Clinical Impression: Symptomatic anemia, Weakness, Chronic kidney disease, Alcoholic cirrhosis of liver with ascites Disposition: OP ADMIT IP TO THIS HOSP Is pt being admited?: Yes Does the pt Need Aspirin: No Condition: Stable Referrals: PRIMARY CARE, [Primary Care Provider] - 3-5 Days
[2017-06-28] MEDS ORDERED: NACL 0.9% 1000 ML 1,000 ML IV SCH (19:00)
[2017-06-28 19:05] LABS: Bacteria,Urine 1+ /HPF (Negative); Bilirubin,Urine NEG (Negative); Blood,Urine NEG (Negative); Color,Urine Yellow (Yellow); Mucus,Urine FEW /HPF; Nitrite,Urine NEG (Negative); Protein,Urine <15 mg/dL mg/dL (Negative); Urobilinogen,Urine < 2.0 mg/dL (<2.0)
--- NOTE | 2017-06-28 22:54 | Event Note ---
Date: 06/28/17 See Dictated H/p in reports CARMEN Symptomatic Anemia
[2017-06-29] MEDS ORDERED: PROAMATINE PO PRN (02:03)
[2017-06-29] MEDS ORDERED: ZOFRAN PO PRN (02:03)
--- NOTE | 2017-06-29 05:57 | History and Physical Report ---
CHIEF COMPLAINT: Low hemoglobin and hematocrit as per the PA system. HISTORY OF PRESENT ILLNESS: A 62-year-old -[place] male who presents to the ER for blood transfusion as suggested by his [facility]. The patient had hemoglobin checked 2 days ago and was in 7/21 range. The patient complaining of weakness and shortness of breath on exertion. The patient had several blood transfusions in the past and etiology unclear. The patient had a colonoscopy and EGDs. I do not know whether he had pill camera. No chest pain. PAST MEDICAL HISTORY: As mentioned, liver disease, cataracts, glaucoma, hypertension. PAST SURGICAL HISTORY: Left fifth toe amputated. SOCIAL HISTORY: Does not smoke. No alcohol, no recreational drugs. FAMILY HISTORY: Significant for hypertension. CURRENT MEDICATIONS: On chart. REVIEW OF SYSTEMS: The patient feels weak and tired and short of breath on exertion. No chest pain. A 14-point review of systems done, otherwise, essentially negative other than generalized weakness. PHYSICAL EXAMINATION: GENERAL: Elderly male, cooperative during examination. VITAL SIGNS: Blood pressure is 123/56, temperature is 98.3, pulse rate is 79, respiratory rate is 16. HEENT: Unremarkable. Pupils are equal and reactive. NECK: Supple, no lymphadenopathy, no thyromegaly. LUNGS: Clear to auscultation and percussion. Good air entry. CARDIOVASCULAR: S1, S2 heard. No gallop, no murmur, no rub. Apical impulse in left fifth intercostal space and midclavicular line. EXTREMITIES: Good pedal pulses. CENTRAL NERVOUS SYSTEM: Alert and oriented x 4, nonfocal exam. LABORATORY DATA: Significant for white count of 5500, hemoglobin 7, hematocrit of 20, BUN and creatinine 48 and 3.0. Glucose is 139. Thyroid is not mentioned. TSH is not mentioned. Urine negative. EKG, normal sinus rhythm. No acute ST-T wave changes. ASSESSMENT AND PLAN: 1. Symptomatic anemia. The patient to be transfused 2 units as per the PA hospital. 2. Acute kidney injury. The patient is not sure. The patient to be given dialysis followed by administration of IV medications. 3. Acute kidney injury IV Fluids for now 4. Acute gastritis. Continue Protonix 40 mg twice a day. 5. Hypotension. Continue on amlodipine. CRITICAL CARE STATEMENT: _The high probability of a clinically significant, sudden or life threatening deterioration of the [Pulmonary, cadiac, renal] system(s) required my full and direct attention, intervention and personal management. The aggregate critical care time was [35] minutes. This time is in addition to time spent performing reported procedures but includes the following : [x] Data Review and interpretation [x] Patient assessment and monitoring of vital signs [x] Documentation [x] Medication orders and management JOB# [id number] NAKUL/GOLDIE SAEED
[2017-06-29] MEDS: REFRESH CELLUVISC OU SCH ×2 (06:27→09:04)
[2017-06-29] MEDS ORDERED: CEPHULAC PO SCH (08:00)
--- NOTE | 2017-06-29 09:56 | Discharge Summary ---
Providers - Providers Date of Admission: 06/28/17 18:25 Attending physician: DEV HANSEN MD 06/29/17 06:13 Consult to Physician [CONS] Routine Consulting Provider: YOSHI MAYBERRY Reason For Exam: CKD Notified:: yes Primary care physician: MARIO FALLON Hospitalization Reason for admission: anemia Condition: Stable Hospital course: Patient is a 62-year-old male who is presenting with weakness. Patient was sent in by the [facility] to receive a blood transfusion. Patient had his hemoglobin checked 2 days ago was low. The patient's complaining of weakness or exertional shortness of breath fatigue. Patient has had several blood transfusions in the past his anemia is From Unknown Source. Patient Has Had Colonoscopies EGDs As Well As Recent Hemoccult That Have Been Normal. Patient Denies Any Chest Pain at This Time. Patient Does Have Has Had 2 Days of Nausea Vomiting but Is Denying Any Abdominal Pain at This Time. patient proceeded to have 1 units PRBC and is stable for discharge., He will follow at the [facility] Symptomatic ANEMIA CIRRHOSIS CARMEN Acute Gastritis HYpotension CKD Disposition: TO HOME OR SELFCARE Time spent for discharge: 35 mins Core Measure Documentation - Palliative Care Palliative Care/ Comfort Measures: Not Applicable - Core Measures Any of the following diagnoses?: none - VTE Discharge Requirements Deep Vein Thrombosis/Pulmonary Embolism Present on Admission: No Exam - Physical Exam Narrative exam: - General Limitations: No Limitations General appearance: alert, in no apparent distress - Head Head exam: Present: atraumatic, normocephalic - Eye Eye exam: Present: normal appearance - ENT ENT exam: Present: mucous membranes moist - Neck Neck exam: Present: normal inspection - Respiratory Respiratory exam: Present: normal lung sounds bilaterally. Absent: respiratory distress, wheezes, rales, rhonchi - Cardiovascular Cardiovascular Exam: Present: regular rate, normal rhythm. Absent: systolic murmur, diastolic murmur, rubs, gallop - GI/Abdominal GI/Abdominal exam: Present: soft, normal bowel sounds. Absent: distended, tenderness - Rectal Rectal exam: Present: deferred - Extremities Exam Extremities exam: Present: normal inspection - Back Exam Back exam: Present: normal inspection - Neurological Exam Neurological exam: Present: alert, oriented X3 - Psychiatric Psychiatric exam: Present: normal affect, normal mood - Skin Skin exam: Present: warm, dry, intact, normal color. Absent: rash - Constitutional Vitals: Temp Pulse Resp BP Pulse Ox 97 F L 93 H 17 130/74 92 06/28/17 20:28 06/29/17 09:00 06/29/17 09:00 06/29/17 09:00 06/29/17 09:00 Plan Activity: advance as tolerated, fall precautions Diet: low fat, renal Special Instructions: record daily BP diary Additional Instructions: FOLLOW UP WITH THE [facility] DOCTORS, PCP,GI, RENAL IN 1 WEEK OR LESS Follow up with: PRIMARY CARE, [Referring] - 3-5 Days Prescriptions: Carboxymethylcellulose Sodium [Refresh Tears] 1 drop OU Q6H #30 drops Lactulose [Constulose] 30 ml PO TID #30 solution Midodrine [Proamatine] 5 mg PO Q6H PRN #30 tablet PRN Reason: Hypotension Ondansetron [Zofran TAB] 4 mg PO Q8H PRN #30 tablet PRN Reason: Nausea Pantoprazole [Protonix TAB] 40 mg PO BID #60 tablet Rifaximin [Xifaxan] 550 mg PO BID #60 tablet Sodium Bicarbonate 1,300 mg PO BID #60 tablet
[2017-06-29] MEDS ORDERED: PROTONIX PO SCH (10:00)
[2017-06-29] MEDS ORDERED: XIFAXAN PO SCH (10:00)
[2017-06-29] MEDS ORDERED: SODIUM BICARBONATE PO SCH (10:00)
[2017-06-29 10:06] VITALS: BP 132/66
[2017-06-29 10:53] LABS: Basophils % (Auto) 0.4 % (0.0-1.8); Eosinophils # (Auto) 0.1 K/mm3 (0.0-0.4); Eosinophils % (Auto) 1.5 % (0.0-4.3); Hematocrit 22.2 % (35.5-45.6); Hemoglobin 7.7 gm/dl (11.8-15.2); Lymphocytes # (Auto) 1.4 K/mm3 (1.2-5.4); Lymphocytes % (Auto) 19.1 % (13.4-35.0); Mean Corpuscular HGB Conc 35 % (32-34); Mean Corpuscular Hemoglobin 32 pg (28-32); Mean Corpuscular Volume 91 fl (84-94); Monocytes # (Auto) 0.8 K/mm3 (0.0-0.8); Monocytes % (Auto) 10.5 % (0.0-7.3); Platelet Count 150 K/mm3 (140-440); Red Blood Count 2.44 M/mm3 (3.65-5.03)
[2017-06-29 10:54] LABS: Red Cell Distribution Width 21.3 % (13.2-15.2)
[2017-06-29 11:08] LABS: Calcium 9.1 mg/dL (8.4-10.2)
== END 2017-06-29 11:53 | disposition home or self-care (01) | DRG 812 ==
LOC: ED 13:20 → 4A 18:25
PROVIDERS: ADMIT Internal Medicine; ATTEND Internal Medicine
PROC: 30233N1 Transfusion of Nonautologous Red Blood Cells into Peripheral Vein, Percutaneous Approach (ICD-10-PCS; principal; 2017-06-29)
DX: D64.9 Anemia, unspecified (principal); N17.9 Acute kidney failure, unspecified; N18.9 Chronic kidney disease, unspecified; Z88.6 Allergy status to analgesic agent; Z88.8 Allergy status to other drugs, medicaments and biological substances; K70.31 Alcoholic cirrhosis of liver with ascites; K29.70 Gastritis, unspecified, without bleeding; I95.9 Hypotension, unspecified
CPT/HCPCS: 36415; 80048; 80053; 81001; 85025; 86850; 86900; 86901; 86920; 93005; 93010; J2405; J7030; P9016

== ENCOUNTER 2017-08-10 21:11 | Emergency (ER) | payer MEDICARE ==
--- NOTE | 2017-08-10 23:10 | Emergency Department Report ---
HPI - General Chief Complaint: Weakness Time Seen by Provider: 08/10/17 22:28 - HPI HPI: 62-year-old -Irish male with history of cirrhosis of the liver, severe anemia requiring transfusion, presents to ED with feeling unwell. Patient was brought by states that patient blood pressure was 90/50. The took the patient's blood pressure while he was sleeping. She didn't woke him up, and he complains of feeling weak and unable to walk. She then called 911 EMS showed up his blood pressure was found to be about the same so he was brought to ER for further evaluation. Patient was seen at the [facility] on August 01 and according to he received transfusion because his hemoglobin was low. Patient cirrhosis is from alcoholism, stated that the patient has not drank alcohol in about a year. ED Past Medical Hx - Past Medical History Hx Hypertension: Yes Hx Congestive Heart Failure: No Hx Diabetes: No Hx Liver Disease: Yes Hx Seizures: Yes Hx Asthma: No Hx COPD: No Hx HIV: No Additional medical history: enlarged liver, pituitary adenoma, cirrhosis with ascites. cataracts. glaucoma. anemia. GI bleed - Surgical History Additional Surgical History: left 5th toe ampuated. right third toe (hammertoe) - Social History Smoking Status: Never Smoker Substance Use Type: None - Medications Home Medications: Home Medications Medication Instructions Recorded Confirmed Last Taken Type Carboxymethylcellulose Sodium 1 drop OU Q6H #30 drops 06/29/17 Unknown Rx [Refresh Tears] Lactulose [Constulose] 30 ml PO TID #30 solution 06/29/17 Unknown Rx Midodrine [Proamatine] 5 mg PO Q6H PRN #30 tablet 06/29/17 Unknown Rx Ondansetron [Zofran TAB] 4 mg PO Q8H PRN #30 tablet 06/29/17 Unknown Rx Pantoprazole [Protonix TAB] 40 mg PO BID #60 tablet 06/29/17 Unknown Rx Rifaximin [Xifaxan] 550 mg PO BID #60 tablet 06/29/17 Unknown Rx Sodium Bicarbonate 1,300 mg PO BID #60 tablet 06/29/17 Unknown Rx ED Review of Systems ROS: Stated complaint: WEAKNESS Other details as noted in HPI Comment: All other systems reviewed and negative Gastrointestinal: denies: abdominal pain, nausea, vomiting Neurological: weakness. denies: headache Psychiatric: denies: anxiety Physical Exam - Physical Exam Vital Signs: Vital Signs 08/10/17 22:18 Temperature 98.1 F Pulse Rate 60 Blood Pressure 132/68 O2 Sat by Pulse 98 Oximetry Physical Exam: - Physical Exam Physical Exam: - General Limitations: No Limitations General appearance: alert, in no apparent distress, obese - Head Head exam: Present: atraumatic, normocephalic - Eye Eye exam: Present: normal appearance - ENT ENT exam: Present: mucous membranes moist - Neck Neck exam: Present: normal inspection - Respiratory Respiratory exam: Present: normal lung sounds bilaterally. Absent: respiratory distress - Cardiovascular Cardiovascular Exam: Present: normal rhythm, tachycardia. Absent: systolic murmur, diastolic murmur, rubs, gallop - GI/Abdominal GI/Abdominal exam: Present: soft, normal bowel sounds - Extremities Exam Extremities exam: Present: normal inspection - Back Exam Back exam: Present: normal inspection - Neurological Exam Neurological exam: Present: alert, oriented X3 - Psychiatric Psychiatric exam: normal affect and mood - Skin Skin exam: Present: warm, dry, intact, normal color. Absent: rash ED Course Vital Signs 08/10/17 22:18 Temperature 98.1 F Pulse Rate 60 Blood Pressure 132/68 O2 Sat by Pulse 98 Oximetry - Reevaluation(s) Reevaluation #1: 08/11/17 01:43 I spoke with hospitalist regarding this patient, I recommended admission but the hospitalist, Dr. Sevilla didn't admit the patient and recommend that patient be discharged to go home and follow up with his PCP and to continue lactulose. ED Medical Decision Making - Lab Data Result diagrams: 08/10/17 22:50 08/10/17 22:50 Critical care attestation.: If time is entered above; I have spent that time in minutes in the direct care of this critically ill patient, excluding procedure time. ED Disposition Clinical Impression: Cirrhosis of liver with ascites Qualifiers: Hepatic cirrhosis type: alcoholic cirrhosis Qualified Code(s): K70.31 - Alcoholic cirrhosis of liver with ascites Anemia Qualifiers: Anemia type: other cause Other causes of anemia: chronic disease, other Qualified Code(s): D63.8 - Anemia in other chronic diseases classified elsewhere Disposition: DC-01 TO HOME OR SELFCARE Is pt being admited?: No Does the pt Need Aspirin: No Condition: Stable Instructions: Cirrhosis (ED), Weakness (ED), Anemia (ED) Referrals: MARIO FALLON MD [Primary Care Provider] - 3-5 Days
--- NOTE | 2017-08-10 23:11 | XRay Report ---
FINAL REPORT PROCEDURE: Semi upright AP chest x-ray TECHNIQUE: Chest radiograph anteroposterior view. CPT 82417 HISTORY: weakness, chest pain COMPARISON: Prior chest x-ray 2716 FINDINGS: Right pleural effusion is again visualized and appears to have enlarged significantly now moderate to large. There is consolidation adjacent to the effusion suggesting atelectasis versus infiltrate. Smaller left pleural effusion is present with adjacent atelectasis or infiltrate. The heart is enlarged. Pulmonary vasculature is distended and ill-defined. Interstitial markings mildly coarsened. I suspect there is mild pulmonary edema. No acute bony abnormalities are seen. IMPRESSION: Interval enlargement right pleural effusion now moderate to large. There also appears to be a small left effusion. Consolidation is seen adjacent of both effusions suggesting atelectasis or pneumonia. Cardiomegaly with pulmonary venous hypertension changes as described. I suspect there is mild pulmonary edema..
[2017-08-10 23:16] LABS: Basophils # (Auto) 0.1 K/mm3 (0.0-0.1); Basophils % (Auto) 0.9 % (0.0-1.8); Eosinophils # (Auto) 0.2 K/mm3 (0.0-0.4); Eosinophils % (Auto) 2.9 % (0.0-4.3); Hemoglobin 8.1 gm/dl (11.8-15.2); Lymphocytes # (Auto) 1.3 K/mm3 (1.2-5.4); Lymphocytes % (Auto) 21.9 % (13.4-35.0); Mean Corpuscular HGB Conc 34 % (32-34); Mean Corpuscular Hemoglobin 31 pg (28-32); Mean Corpuscular Volume 92 fl (84-94); Monocytes # (Auto) 0.5 K/mm3 (0.0-0.8); Monocytes % (Auto) 7.8 % (0.0-7.3); Platelet Count 119 K/mm3 (140-440); Red Cell Distribution Width 18.6 % (13.2-15.2)
[2017-08-10 23:25] LABS: INR 1.43 (0.87-1.13)
[2017-08-10 23:26] LABS: Partial Thromboplastin Time 48.2 Sec. (24.2-36.6)
[2017-08-10] MEDS ORDERED: CEPHULAC PO ONE (23:28)
[2017-08-10 23:34] LABS: Lipase 11 units/L (13-60)
[2017-08-10 23:36] LABS: Albumin 3.1 g/dL (3.9-5); Calcium 9.2 mg/dL (8.4-10.2)
[2017-08-11 00:18] LABS: Bacteria,Urine 2+ /HPF (Negative); Bilirubin,Urine NEG (Negative); Blood,Urine SM (Negative); Color,Urine Yellow (Yellow); Protein,Urine <15 mg/dL mg/dL (Negative); Urobilinogen,Urine < 2.0 mg/dL (<2.0)
[2017-08-11 00:19] LABS: WBC,Urine > 182.0 /HPF (0.0-6.0)
[2017-08-11 00:20] LABS: Mucus,Urine 1+ /HPF
[2017-08-11 02:16] VITALS: BP 123/62
== END 2017-08-11 02:16 | disposition home or self-care (01) ==
LOC: ED 21:11
DX: K70.31 Alcoholic cirrhosis of liver with ascites (principal); D64.9 Anemia, unspecified; I10 Essential (primary) hypertension
CPT/HCPCS: 36415; 71045; 80053; 81001; 82140; 82150; 83690; 85025; 85610; 85730; 93005; 93010; 99284

== ENCOUNTER 2017-12-10 12:12 | Inpatient (IN) | payer MEDICARE ==
[2017-12-10 13:51] LABS: Hematocrit 21.5 % (35.5-45.6); Hemoglobin 7.3 gm/dl (11.8-15.2); Mean Corpuscular HGB Conc 34 % (32-34); Mean Corpuscular Hemoglobin 32 pg (28-32); Mean Corpuscular Volume 93 fl (84-94); Red Blood Count 2.31 M/mm3 (3.65-5.03); Red Cell Distribution Width 17.7 % (13.2-15.2)
[2017-12-10 14:11] LABS: Albumin 2.6 g/dL (3.9-5); Calcium 8.6 mg/dL (8.4-10.2)
[2017-12-10 15:34] LABS: Band Neutrophils # (Manual) 0.2 K/mm3; Total Cells Counted 100
[2017-12-10 15:35] LABS: Platelet Count 61 K/mm3 (140-440)
[2017-12-10 15:39] LABS: Anisocytosis 2+; Crenated RBC 3+; Platelet Estimate Appears Decreased; Poikilocytosis 3+
[2017-12-10 15:40] LABS: Hypochromasia 2+; Schistocytes 1+
[2017-12-10] MEDS ORDERED: NACL 0.9% 500 ML 500 ML IV ONE (23:12)
[2017-12-10] MEDS ORDERED: BABY ASPIRIN PO ONE (23:15)
--- NOTE | 2017-12-10 23:15 | Emergency Department Report ---
HPI - HPI HPI: The patient is a 62-year-old female with a history of cirrhosis, who presents for evaluation of abdominal pain and generalized weakness. The patient and his report one week of generalized abdominal pain, moderate in severity, pressure-like in quality, exacerbated with coughing, and associated with recurrent loose watery stools and a nonproductive cough of same duration. The shares that his blood pressure was found to be 76/49 earlier today, prompting his presentation. The patient denies headache, neck pain, chest pain , dyspnea, syncope, hematemesis, blood in the stool, hemoptysis, paresthesia, lateralizing motor weakness, or other focal neurological deficit. <NITIN JUAN - Last Filed: 12/11/17 00:32> <LEV SORENSON - Last Filed: 12/11/17 03:25> - General Chief Complaint: Weakness Time Seen by Provider: 12/10/17 22:11 ED Past Medical Hx - Past Medical History Hx Hypertension: Yes Hx Congestive Heart Failure: No Hx Diabetes: No Hx Liver Disease: Yes Hx Seizures: Yes Hx Asthma: No Hx COPD: No Hx HIV: No Additional medical history: enlarged liver, pituitary adenoma, cirrhosis with ascites. cataracts. glaucoma. anemia. GI bleed - Surgical History Additional Surgical History: left 5th toe ampuated. right third toe (hammertoe) - Social History Smoking Status: Never Smoker Substance Use Type: None <NITIN JUAN - Last Filed: 12/11/17 00:32> <LEV SORENSON - Last Filed: 12/11/17 03:25> - Medications Home Medications: Home Medications Medication Instructions Recorded Confirmed Last Taken Type Carboxymethylcellulose Sodium 1 drop OU Q6H #30 drops 06/29/17 12/10/17 Unknown Rx [Refresh Tears] Lactulose [Constulose] 30 ml PO TID #30 solution 06/29/17 12/10/17 Unknown Rx Midodrine [Proamatine] 5 mg PO Q6H PRN #30 tablet 06/29/17 12/10/17 Unknown Rx Ondansetron [Zofran TAB] 4 mg PO Q8H PRN #30 tablet 06/29/17 12/10/17 Unknown Rx Pantoprazole [Protonix TAB] 40 mg PO BID #60 tablet 06/29/17 12/10/17 Unknown Rx Rifaximin [Xifaxan] 550 mg PO BID #60 tablet 06/29/17 12/10/17 Unknown Rx Sodium Bicarbonate 1,300 mg PO BID #60 tablet 06/29/17 12/10/17 Unknown Rx ED Review of Systems ROS: Stated complaint: LBP Other details as noted in HPI Constitutional: reports generalized weakness denies: fever ENT: denies: throat or neck pain Respiratory: denies: cough, shortness of breath Cardiovascular: denies: chest pain Endocrine: denies unexplained weight loss or gain Gastrointestinal: reports: abdominal pain, nausea Genitourinary: denies: dysuria Musculoskeletal: denies: leg swelling Skin: denies: rash Neurological: denies: headache Hematological/Lymphatic: denies: easy bleeding or easy bruising Psych: denies sadness or hopelessness <NITIN JUAN P - Last Filed: 12/11/17 00:32> ROS: Stated complaint: LBP Other details as noted in HPI <LEV SORENSON C - Last Filed: 12/11/17 03:25> Physical Exam - Physical Exam Vital Signs: Vital Signs 12/10/17 12/10/17 12/10/17 12:36 18:34 21:37 Temperature 98.1 F Pulse Rate 67 60 Respiratory 20 20 Rate Blood Pressure 83/49 91/52 Blood Pressure 99/60 [Left] O2 Sat by Pulse 98 100 Oximetry 12/10/17 22:22 Temperature Pulse Rate 59 L Respiratory 16 Rate Blood Pressure Blood Pressure 100/60 [Left] O2 Sat by Pulse 100 Oximetry Physical Exam: General: well-nourished, well-developed, no acute distress Head: Normocephalic, atraumatic Eyes: normal sclera ENT: Mucous membranes are pale and dry Neck: No neck stiffness, no cervical adenopathy Respiratory: Breath sounds equal bilaterally, no wheezing, rales, or rhonchi Cardio: S1 and S2 present, no murmurs, rubs, gallops, capillary refill is delayed Abdomen: Normoactive bowel sounds, soft abdomen, generalized tenderness to palpation present, no rigidity, no guarding or rebound tenderness Chest WALL/Back: No tenderness to palpation of the chest wall, no CVA tenderness with percussion Musc: No pitting edema Skin: No rash Neuro: no facial drooping, normal speech Psych: Normal affect <NITIN JUAN P - Last Filed: 12/11/17 00:32> - Physical Exam Vital Signs: Vital Signs 12/10/17 12/10/17 12/10/17 12:36 18:34 21:37 Temperature 98.1 F Pulse Rate 67 60 Respiratory 20 20 Rate Blood Pressure 83/49 91/52 Blood Pressure 99/60 [Left] O2 Sat by Pulse 98 100 Oximetry 12/10/17 22:22 Temperature Pulse Rate 59 L Respiratory 16 Rate Blood Pressure Blood Pressure 100/60 [Left] O2 Sat by Pulse 100 Oximetry <LEV SORENSON - Last Filed: 12/11/17 03:25> ED Course Vital Signs 12/10/17 12/10/17 12/10/17 12:36 18:34 21:37 Temperature 98.1 F Pulse Rate 67 60 Respiratory 20 20 Rate Blood Pressure 83/49 91/52 Blood Pressure 99/60 [Left] O2 Sat by Pulse 98 100 Oximetry 12/10/17 22:22 Temperature Pulse Rate 59 L Respiratory 16 Rate Blood Pressure Blood Pressure 100/60 [Left] O2 Sat by Pulse 100 Oximetry <NITIN JUAN P - Last Filed: 12/11/17 00:32> Vital Signs 12/10/17 12/10/17 12/10/17 12:36 18:34 21:37 Temperature 98.1 F Pulse Rate 67 60 Respiratory 20 20 Rate Blood Pressure 83/49 91/52 Blood Pressure 99/60 [Left] O2 Sat by Pulse 98 100 Oximetry 12/10/17 22:22 Temperature Pulse Rate 59 L Respiratory 16 Rate Blood Pressure Blood Pressure 100/60 [Left] O2 Sat by Pulse 100 Oximetry <LEV SORENSON - Last Filed: 12/11/17 03:25> ED Medical Decision Making - Lab Data Result diagrams: 12/10/17 13:14 12/10/17 13:14 - Medical Decision Making The patient was seen and examined by myself. 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 On initial evaluation, the patient was found to be in no distress, although with severe hypertension, blood pressure 80 /50. Evaluation orders are placed. IV access is established and the patient is given 1 L normal saline fluid bolus for treatment of his hypotension and dehydration. Lab results revealed low hemoglobin of 7.3, elevated lactic acid, elevated ammonia level of 134, elevated total bilirubin level, and elevated Cr of 5, increased from the patient reported baseline of 2-3, elevated potassium level of 5.2, elevated BNP of 9500. The patient is given an additional normal saline fluid bolus for treatment of lactic acidosis and hyperkalemia. The patient is given lactulose for treatment of hepatic encephalopathy. The on-call hospitalist service was contacted. They agreed to admit the patient for further treatment and close monitoring. The ED admit order was placed. The patient was admitted in guarded condition. <NITIN JUAN P - Last Filed: 12/11/17 00:32> - Lab Data Result diagrams: 12/10/17 13:14 12/10/17 13:14 - Radiology Data Radiology results: report reviewed ct chest wo contrast IMPRESSION: The heart size is normal.. There is no thoracic aortic aneurysm or dissection.. There is discoid atelectasis at the lung bases greater on the right. There are no acute infiltrates.. There are large bilateral pleural effusions. There is no pneumothorax.. ct abd/pelvis wo contrast IMPRESSION: There is a stent in the portal vein. Liver is irregular in contour suggesting cirrhosis. There are tiny calcified granulomas. There is no discrete mass.. There are bilateral kidney stones. There is no hydronephrosis.. There is a large amount of stool in the colon. There is no obstruction or fecal impaction. There is no specific evidence of colitis or diverticulitis. The stomach and small bowel are unremarkable. The appendix is normal.. There is minimal ascites. There is no free air.. - Medical Decision Making No surgical findings on ct chest/abd/pelvis. WIll continue with hospitalist admission without surgical consult <LEV SORENSON C - Last Filed: 12/11/17 03:25> Critical care attestation.: If time is entered above; I have spent that time in minutes in the direct care of this critically ill patient, excluding procedure time. <NITIN JUAN - Last Filed: 12/11/17 00:32> Critical care attestation.: If time is entered above; I have spent that time in minutes in the direct care of this critically ill patient, excluding procedure time. <LEV SORENSON - Last Filed: 12/11/17 03:25> ED Disposition Is pt being admited?: Yes Does the pt Need Aspirin: Yes Time of Disposition: 23:13 <NITIN JUAN - Last Filed: 12/11/17 00:32> <LEV SORENSON - Last Filed: 12/11/17 03:25> Disposition: DC-09 OP ADMIT IP TO THIS HOSP Condition: Serious Referrals: PRIMARY CARE, [Primary Care Provider] - 3-5 Days
[2017-12-10 23:24] LABS: Bilirubin,Urine NEG (Negative); Blood,Urine NEG (Negative); Color,Urine Yellow (Yellow); Mucus,Urine FEW /HPF; Protein,Urine <15 mg/dL mg/dL (Negative); Urobilinogen,Urine < 2.0 mg/dL (<2.0)
--- NOTE | 2017-12-10 23:54 | XRay Report ---
FINAL REPORT PROCEDURE: XR CHEST 1V AP TECHNIQUE: Chest radiograph anteroposterior view. CPT 54631 HISTORY: dyspnea COMPARISON: No prior studies are available for comparison. FINDINGS: Heart: Normal. Mediastinum/Vessels: Normal. Lungs/Pleural space: There are bibasilar infiltrates greater on the right. There are bilateral pleural effusions.. There is no pneumothorax. Bony thorax: No acute osseous abnormality. Life support devices: None. IMPRESSION: Heart size is normal. There are bibasilar infiltrates greater on the right. There are bilateral pleural effusions.. There is no pneumothorax.
[2017-12-11] MEDS ORDERED: ROCEPHIN/NS 1 GM/50 ML 1 GM/50 ML BAG IV ONE (01:44)
--- NOTE | 2017-12-11 02:47 | Cat Scan Report ---
FINAL REPORT PROCEDURE: CT CHEST WO CON TECHNIQUE: Computerized axial tomography of the chest was performed without contrast material. This study is performed without intravenous contrast and the sensitivity for pathology, including neoplasms, adenopathy, abscess, pulmonary embolism and aortic dissection, is reduced. HISTORY: dyspnea COMPARISON: No prior studies are available for comparison. TECHNICAL QUALITY: Satisfactory. FINDINGS: Heart and pericardium: Normal. Thoracic aorta: There is no thoracic aortic aneurysm or dissection.. Pulmonary vasculature: Normal. Lymph nodes: No enlarged thoracic lymph nodes. Lungs: There is discoid atelectasis at the lung bases greater on the right. There are no acute infiltrates.. Pleural space: There are large bilateral pleural effusions. There is no pneumothorax.. Musculoskeletal structures: No significant abnormality. Upper abdominal structures: No significant abnormality. IMPRESSION: The heart size is normal.. There is no thoracic aortic aneurysm or dissection.. There is discoid atelectasis at the lung bases greater on the right. There are no acute infiltrates.. There are large bilateral pleural effusions. There is no pneumothorax..
--- NOTE | 2017-12-11 03:07 | Cat Scan Report ---
FINAL REPORT PROCEDURE: CT ABDOMEN PELVIS WO CON TECHNIQUE: Computerized axial tomography of the abdomen and pelvis was performed without intravenous contrast. This study is performed without intravascular contrast material and its sensitivity for abdominal and pelvic pathology, including neoplasms, inflammation, abscess, free fluid, thrombosis, arterial dissection and infarction, is reduced compared with a contrast enhanced study. HISTORY: abdominal pain COMPARISON: No prior studies are available for comparison. FINDINGS: Visualized lower thorax: No significant abnormality. Liver: There is a stent in the portal vein. Liver is irregular in contour suggesting cirrhosis. There are tiny calcified granulomas. There is no discrete mass.. Spleen: Normal size and attenuation. Gallbladder and biliary system: Normal. Pancreas: Normal. Adrenals: Normal. Kidneys: There are bilateral kidney stones. There is no hydronephrosis.. GI tract: There is a large amount of stool in the colon. There is no obstruction or fecal impaction. There is no specific evidence of colitis or diverticulitis. The stomach and small bowel are unremarkable. The appendix is normal.. Lymph nodes and mesentery: Normal. Vasculature: There is calcified plaque in the abdominal aorta. There is no aneurysm.. Bladder: Normal. Reproductive organs: Normal. Peritoneum: There is minimal ascites. There is no free air.. Musculoskeletal structures: No significant abnormality. Other: None. IMPRESSION: There is a stent in the portal vein. Liver is irregular in contour suggesting cirrhosis. There are tiny calcified granulomas. There is no discrete mass.. There are bilateral kidney stones. There is no hydronephrosis.. There is a large amount of stool in the colon. There is no obstruction or fecal impaction. There is no specific evidence of colitis or diverticulitis. The stomach and small bowel are unremarkable. The appendix is normal.. There is minimal ascites. There is no free air.. .
[2017-12-11] MEDS ORDERED: NACL 0.9% 1000 ML IV ONE (04:12)
[2017-12-11] MEDS ORDERED: KIONEX PO ONE (04:53)
[2017-12-11] MEDS ORDERED: NACL 0.9% 1000 ML 1,000 ML IV SCH (05:00)
[2017-12-11] MEDS ORDERED: VANCOMYCIN PHARMACY TO DOSE IV SCH (05:00)
[2017-12-11 05:08] LABS: INR 1.51 (0.87-1.13)
[2017-12-11 05:09] LABS: Partial Thromboplastin Time 45.7 Sec. (24.2-36.6)
[2017-12-11] MEDS ORDERED: ZOSYN/NS 2.25 GM/50ML 2.25 GM/50 ML BAG IV SCH (06:00)
[2017-12-11] MEDS ORDERED: ZOSYN/NS 3.375GM/50ML 3.375 GM/50 ML BAG IV SCH (06:00)
[2017-12-11] MEDS: CEPHULAC PO SCH ×2 (06:00→13:06)
[2017-12-11] MEDS ORDERED: VANCOMYCIN/NS 1 GM/250 ML 1 GM/250 ML BAG IV ONE (06:00)
[2017-12-11] MEDS: LEVOPHED DRIP 4 MG/NS 250 ML 4 MG/250 ML BAG IV SCH (08:00)
--- NOTE | 2017-12-11 08:38 | History and Physical Report ---
CHIEF COMPLAINT: Abdominal pain and generalized weakness. HISTORY OF PRESENT ILLNESS: The patient is a 62-year-old male, who has past history of cirrhosis, who presented to the Emergency Room with complaint of abdominal pain and generalized weakness. The patient described pain as pressure like in the abdomen, exacerbated by coughing and associated with some loose watery stool and there is also nonproductive cough. The patient's said that patient's blood pressure was noted to be low at about 76/49. The patient denies history of chest pain. Denied history of dizziness, fever, or chills and was evaluated and presented for admission. PAST MEDICAL HISTORY: Pertinent for hypertension, liver disease notably cirrhosis of the liver, seizure disorder, also there is past history of pituitary adenoma, ascites, cataract, glaucoma, anemia, and GI bleed. PAST SURGICAL HISTORY: Pertinent for left fifth toe amputation, right third toe hematoma surgery. FAMILY HISTORY: Noncontributory. SOCIAL HISTORY: The patient used to drink alcohol, but does not drink anymore. Does not smoke cigarette. MEDICATIONS: The patient is on the following medications: Carboxymethylcellulose Refresh Tears one drop to the eye every 6 hours, lactulose 30 mL 3 times daily, midodrine 5 mg by mouth every 6 hours for low blood pressure, Zofran 4 mg by mouth every 8 hours for nausea and vomiting, Protonix 40 mg by mouth twice daily, Rifaximin 550 mg by mouth twice daily, sodium bicarbonate 1300 mg by mouth twice daily. ALLERGIES: THE PATIENT IS ALLERGIC TO ACETAZOLAMIDE AND CODEINE. REVIEW OF SYSTEMS: CONSTITUTIONAL: There is no fever, no chills, no diaphoresis. HEENT: There is no headache or sore throat. CARDIOVASCULAR SYSTEM: There is no chest pain or orthopnea. RESPIRATORY SYSTEM: There is cough, but no shortness of breath. GASTROINTESTINAL SYSTEM: Abdominal pain present. Nausea present. No vomiting. Loose stool noted. NEUROLOGICAL SYSTEM: Weakness noted, but no dizziness, no altered mental status. MUSCULOSKELETAL SYSTEM: There is no joint pain or swelling. DERMATOLOGICAL SYSTEM: There is no skin rash or itching. GENITOURINARY SYSTEM: There is no dysuria, hematuria, or flank pain. Rest of system review is normal. PHYSICAL EXAMINATION: GENERAL: At the time of exam, the patient was found to be alert, oriented x 3, weak, but not in acute distress. VITAL SIGNS: At the time of initial presentation shows temperature of 98.1 degrees Fahrenheit, pulse of 67, respiration 20, blood pressure 83/49, O2 sat of 98% on room air. HEENT: Show pupils to be equal, round, reactive to light and accommodation. Extraocular muscles are intact. NECK: Supple with no JVD or carotid bruit. CARDIOVASCULAR SYSTEM: Show normal first and second heart sounds with no gallops or murmurs. RESPIRATORY SYSTEM: Show good air entry on both sides of the lung with no abnormal breath sounds. GASTROINTESTINAL SYSTEM: Show abdomen to be full, soft, nontender with palpable liver about 2 cm below the right costal margin. There is no rebound tenderness, no rigidity, no guarding. Bowel sounds normal. NEUROLOGICAL SYSTEM: There is no focal deficit. MUSCULOSKELETAL SYSTEM: Show no joint swelling or tenderness. DERMATOLOGICAL SYSTEM: Show no skin rash. GENITOURINARY SYSTEM: Showing no costovertebral angle tenderness. PERTINENT LABORATORY DATA AND IMAGING STUDIES: The patient has CBC done that shows normal white count with low hemoglobin of 7.3 and low hematocrit of 21. 5 with low platelets of 61. The patient's CBC differential show elevated segmented neutrophil of 81%. The patient's chemistry show low sodium of 136 with slightly elevated potassium level of 5.2 and high BUN of 45 with high creatinine of 5.2, low CO2 of 15. The patient's lactic acid level was high initially with a value of 2.4 with a repeat showing a high value of 3.0. The patient's total bilirubin level was high with a value of 3.5 and liver transaminases show high AST of 71 with normal ALT of 31. Ammonia level was high with a value of 134. The patient's brain natriuretic peptide level is high with a value of 9558 and albumin level is low with a value of 2.6. Urinalysis show normal colored clear urine with slightly elevated urine leukocyte esterase showing small quantity and elevated urine wbc's of 10 with no bacteria seen. IMAGING STUDIES: The patient has CT of the abdomen and pelvis done which shows that there is a stent in the ____ There is also a finding of irregular contour in the liver suggestive of cirrhosis and also there are tiny granulomas. There is finding of bilateral kidney stones with no hydronephrosis and there is large amount of stool in the colon with no obstruction of fecal impaction noted. There is finding of minimal ascites and no free air was seen. The patient also had CT of the chest done that shows the heart size is normal with no thoracic aortic aneurysm or distension seen. The CT of the chest also showed large bilateral pleural effusions with no pneumothorax. The patient also had chest x-ray done that shows normal heart size with bibasilar infiltrate ____ on the right. DIAGNOSES: 1. Septic shock. 2. Hepatic encephalopathy. 3. Acute on-chronic kidney disease. 4. Hyperkalemia. 5. Bilateral pleural effusion. 6. Urinary tract infection. PLAN: 1. The patient will be admitted to ICU. 2. The patient will be on IV Levophed, which will be titrated to keep mean arterial pressure at 65 mmHg or above. 3. The patient will have critical care ICU consult with Dr. Reynolds because of septic shock, admission to ICU, needing IV Levophed titration. 4. The patient will also have Nephrology consult with Dr. Caraballo because of acute on-chronic kidney disease. 5. The patient will be on IV Zosyn 3.375 grams q.8 hours and will also be on IV vancomycin 1 gram daily which will be monitored by the pharmacist. 6. The patient will be on IV vancomycin with Pharmacy to dose 1 gram daily. 7. The patient will have TSH checked with the blood in the lab and will be on Tylenol 650 mg by mouth every 4 hours for fever and headache and lactulose 20 gram by mouth every 6 hours. 8. The patient will be on IV Zofran 4 mg every 8 hours for nausea and vomiting. JOB# [id number] OCN/NTS AVELINOD
[2017-12-11] MEDS ORDERED: VANCOMYCIN/NS 1 GM/250 ML 1 GM/250 ML BAG IV SCH (10:00)
--- NOTE | 2017-12-11 10:14 | Consultation ---
History of Present Illness - Reason for Consult Consult date: 12/11/17 acute renal failure, chronic renal failure, hyperkalemia, metabolic acidosis Requesting physician: NITIN JUAN - History of Present Illness The patient is a 62-year-old female with a history of cirrhosis, who presents for evaluation of abdominal pain and generalized weakness. The patient and his report one week of generalized abdominal pain, moderate in severity, pressure-like in quality, exacerbated with coughing, and associated with recurrent loose watery stools and a nonproductive cough of same duration. The shares that his blood pressure was found to be 76/49 earlier today, prompting his presentation. The patient denies headache, neck pain, chest pain , dyspnea, syncope, hematemesis, blood in the stool, hemoptysis, paresthesia, lateralizing motor weakness, or other focal neurological deficit. - Past Medical History Hx Hypertension: Yes Hx Congestive Heart Failure: No Hx Diabetes: No Hx Liver Disease: Yes Hx Seizures: Yes Hx Asthma: No Hx COPD: No Hx HIV: No Additional medical history: enlarged liver, pituitary adenoma, cirrhosis with ascites. cataracts. glaucoma. anemia. GI bleed - Surgical History Additional Surgical History: left 5th toe ampuated. right third toe (hammertoe) - Social History Smoking Status: Never Smoker Substance Use Type: None ROS: Stated complaint: LBP Other details as noted in HPI Constitutional: reports generalized weakness denies: fever ENT: denies: throat or neck pain Respiratory: denies: cough, shortness of breath Cardiovascular: denies: chest pain Endocrine: denies unexplained weight loss or gain Gastrointestinal: reports: abdominal pain, nausea Genitourinary: denies: dysuria Musculoskeletal: denies: leg swelling Skin: denies: rash Neurological: denies: headache Hematological/Lymphatic: denies: easy bleeding or easy bruising Psych: denies sadness or hopelessness Medications and Allergies Allergies Allergy/AdvReac Type Severity Reaction Status Date / Time acetazolamide Allergy Unknown Verified 06/13/17 10:58 codeine Allergy Rash Verified 06/13/17 10:57 Home Medications Medication Instructions Recorded Confirmed Last Taken Type Carboxymethylcellulose Sodium 1 drop OU Q6H #30 drops 06/29/17 12/10/17 Unknown Rx [Refresh Tears] Lactulose [Constulose] 30 ml PO TID #30 solution 06/29/17 12/10/17 Unknown Rx Midodrine [Proamatine] 5 mg PO Q6H PRN #30 tablet 06/29/17 12/10/17 Unknown Rx Ondansetron [Zofran TAB] 4 mg PO Q8H PRN #30 tablet 06/29/17 12/10/17 Unknown Rx Pantoprazole [Protonix TAB] 40 mg PO BID #60 tablet 06/29/17 12/10/17 Unknown Rx Rifaximin [Xifaxan] 550 mg PO BID #60 tablet 06/29/17 12/10/17 Unknown Rx Sodium Bicarbonate 1,300 mg PO BID #60 tablet 06/29/17 12/10/17 Unknown Rx Active Meds: Active Medications Acetaminophen (Tylenol) 650 mg PO Q4H PRN PRN Reason: Fever >101 Norepinephrine (Levophed Drip 4 Mg/Ns 250 Ml) 4 mg in 250 mls @ 7.5 mls/hr IV TITR RIVKA; Protocol Last Titration: 12/11/17 08:30 Dose: 3 mcg/min, 11.25 mls/hr Sodium Chloride (Nacl 0.9% 1000 Ml) 1,000 mls @ 125 mls/hr IV DIRECT RIVKA Piperacillin Sod/Tazobactam Sod (Zosyn/Ns 2.25 Gm/50ml) 2.25 gm in 50 mls @ 100 mls/hr IV Q8HR RIVKA; Protocol Last Admin: 12/11/17 06:10 Dose: 100 mls/hr Lactulose (Cephulac) 20 gm PO Q6HR RIVKA Last Admin: 12/11/17 06:00 Dose: 20 gm Vancomycin HCl (Vancomycin Pharmacy To Dose) 1 each IV PKCONSULT RIVKA Exam - Vital Signs Vital signs: Vital Signs Temp Pulse Resp BP Pulse Ox 98.1 F 67 20 83/49 98 12/10/17 12:36 12/10/17 12:36 12/10/17 12:36 12/10/17 12:36 12/10/17 12:36 - Physical Exam Narrative exam: General: well-nourished, well-developed, no acute distress Head: Normocephalic, atraumatic Eyes: normal sclera ENT: Mucous membranes are pale and dry Neck: No neck stiffness, no cervical adenopathy Respiratory: Breath sounds equal bilaterally, no wheezing, rales, or rhonchi Cardio: S1 and S2 present, no murmurs, rubs, gallops, capillary refill is delayed Abdomen: Normoactive bowel sounds, soft abdomen, generalized tenderness to palpation present, no rigidity, no guarding or rebound tenderness Chest WALL/Back: No tenderness to palpation of the chest wall, no CVA tenderness with percussion Musc: No pitting edema Skin: No rash Neuro: no facial drooping, normal speech Psych: Normal affect Results - Lab Results 12/10/17 13:14 12/10/17 13:14 Most recent lab results Calcium 8.6 mg/dL (8.4-10.2) 12/10/17 13:14 Assessment and Plan Impression: * Nonoliguric CARMEN secondary to prerenal azotemia due to hypoperfusion ATN vs HRS * Hyperkalemia * sepsis * Severe anemia secondary to ABL * Rectal bleeding * Cirrhosis w/ esophageal varices * Metabolic acidosis * Hyperbilirubinemia * pyuria Plan: * Renal function is worse than baseline * add bicarb gtt and iv albumin * vasopressors to keep map >65 * strict i/os, avoid nephrotoxins * daily lytes * no indication for edge drummer at this time * empiric abx for SBP and UTI * Transfusion pRBC per primary team * Gastroenterology consultation needed * Medical management of electrolytes * Avoid potential nephrotoxic agents * Dose medications for renal function
[2017-12-11] MEDS: ALBURX 25% (ALBUMIN) IV SCH (11:23)
[2017-12-11] MEDS: SODIUM BICARBONATE 150 MEQ in D5W 1,000 ML IV SCH (12:21)
--- NOTE | 2017-12-11 14:10 | Progress Note ---
Assessment and Plan Assessment and plan: Septic/hypovolemic shock. Will follow-up bloody urine cultures. Patient with elevated lactic acid levels. Patient requiring pressors of Levophed. Continue pressors to maintain MAP greater than 65 Severe anemia secondary to acute blood loss. Transfuse PRBCs as needed. Rectal bleeding. GI consultation. UTI. Cont antibiotics Cirrhosis with esophageal varices. GI consultation. Toxic metabolic/hepatic encephalopathy. Patient with elevated ammonia level on admission. Continue to treat with lactulose and underlying causes of sepsis. Acute on chronic kidney disease. Etiology likely secondary to acute kidney injury from ATN/sepsis/hypotension. Nephrology following. The high probability of a clinically significant, sudden or life threatening deterioration of the [hemodynamic and renal] system(s) required my full and direct attention, intervention and personal management. The aggregate critical care time was [32] minutes. This time is in addition to time spent performing reported procedures but includes the following: [x] Data Review and interpretation [x] Patient assessment and monitoring of vital signs [x] Documentation [x] Medication orders and management History Interval history: Patient remains hypotensive requiring pressors of Levophed. Hospitalist Physical - Constitutional Vitals: Temp Pulse Resp BP Pulse Ox 98.3 F 72 16 99/53 97 12/11/17 07:00 12/11/17 13:30 12/11/17 13:30 12/11/17 13:30 12/11/17 13:30 General appearance: Present: mild distress - EENT Eyes: Present: PERRL, EOM intact ENT: hearing intact, clear oral mucosa, dentition normal - Neck Neck: Present: supple, normal ROM - Respiratory Respiratory effort: normal Respiratory: bilateral: CTA - Cardiovascular Rhythm: regular Heart Sounds: Present: S1 & S2. Absent: gallop, rub - Extremities Extremities: no ischemia, No edema, Full ROM - Abdominal General gastrointestinal: soft, non-tender, non-distended, normal bowel sounds - Integumentary Integumentary: Present: clear, warm, dry - Neurologic Neurologic: CNII-XII intact, moves all extremities Results - Labs CBC & Chem 7: 12/10/17 13:14 12/10/17 13:14 Labs: Laboratory Last Values WBC 5.9 K/mm3 (4.5-11.0) 12/10/17 13:14 RBC 2.31 M/mm3 (3.65-5.03) L 12/10/17 13:14 Hgb 7.3 gm/dl (11.8-15.2) L 12/10/17 13:14 Hct 21.5 % (35.5-45.6) L 12/10/17 13:14 MCV 93 fl (84-94) 12/10/17 13:14 MCH 32 pg (28-32) 12/10/17 13:14 MCHC 34 % (32-34) 12/10/17 13:14 RDW 17.7 % (13.2-15.2) H 12/10/17 13:14 Plt Count 61 K/mm3 (140-440) L 12/10/17 13:14 Add Manual Diff Complete 12/10/17 13:14 Total Counted 100 12/10/17 13:14 Seg Neuts % (Manual) 81.0 % (40.0-70.0) H 12/10/17 13:14 Band Neutrophils % 4.0 % 12/10/17 13:14 Lymphocytes % (Manual) 11.0 % (13.4-35.0) L 12/10/17 13:14 Reactive Lymphs % (Man) 0 % 12/10/17 13:14 Monocytes % (Manual) 2.0 % (0.0-7.3) 12/10/17 13:14 Eosinophils % (Manual) 1.0 % (0.0-4.3) 12/10/17 13:14 Basophils % (Manual) 1.0 % (0.0-1.8) 12/10/17 13:14 Metamyelocytes % 0 % 12/10/17 13:14 Myelocytes % 0 % 12/10/17 13:14 Promyelocytes % 0 % 12/10/17 13:14 Blast Cells % 0 % 12/10/17 13:14 Nucleated RBC % Not Reportable 12/10/17 13:14 Seg Neutrophils # Man 4.8 K/mm3 (1.8-7.7) 12/10/17 13:14 Band Neutrophils # 0.2 K/mm3 12/10/17 13:14 Lymphocytes # (Manual) 0.6 K/mm3 (1.2-5.4) L 12/10/17 13:14 Abs React Lymphs (Man) 0.0 K/mm3 12/10/17 13:14 Monocytes # (Manual) 0.1 K/mm3 (0.0-0.8) 12/10/17 13:14 Eosinophils # (Manual) 0.1 K/mm3 (0.0-0.4) 12/10/17 13:14 Basophils # (Manual) 0.1 K/mm3 (0.0-0.1) 12/10/17 13:14 Metamyelocytes # 0.0 K/mm3 12/10/17 13:14 Myelocytes # 0.0 K/mm3 12/10/17 13:14 Promyelocytes # 0.0 K/mm3 12/10/17 13:14 Blast Cells # 0.0 K/mm3 12/10/17 13:14 WBC Morphology Not Reportable 12/10/17 13:14 Hypersegmented Neuts Not Reportable 12/10/17 13:14 Hyposegmented Neuts Not Reportable 12/10/17 13:14 Hypogranular Neuts Not Reportable 12/10/17 13:14 Smudge Cells Not Reportable 12/10/17 13:14 Toxic Granulation Not Reportable 12/10/17 13:14 Toxic Vacuolation Not Reportable 12/10/17 13:14 Dohle Bodies Not Reportable 12/10/17 13:14 Pelger-Huet Anomaly Not Reportable 12/10/17 13:14 Eriberto Rods Not Reportable 12/10/17 13:14 Platelet Estimate Appears decreased 12/10/17 13:14 Clumped Platelets Not Reportable 12/10/17 13:14 Plt Clumps, EDTA Not Reportable 12/10/17 13:14 Large Platelets Not Reportable 12/10/17 13:14 Giant Platelets Not Reportable 12/10/17 13:14 Platelet Satelliting Not Reportable 12/10/17 13:14 Plt Morphology Comment Not Reportable 12/10/17 13:14 RBC Morphology Not Reportable 12/10/17 13:14 Dimorphic RBCs Not Reportable 12/10/17 13:14 Polychromasia Not Reportable 12/10/17 13:14 Hypochromasia 2+ 12/10/17 13:14 Poikilocytosis 3+ 12/10/17 13:14 Anisocytosis 2+ 12/10/17 13:14 Microcytosis Not Reportable 12/10/17 13:14 Macrocytosis Not Reportable 12/10/17 13:14 Spherocytes Not Reportable 12/10/17 13:14 Pappenheimer Bodies Not Reportable 12/10/17 13:14 Sickle Cells Not Reportable 12/10/17 13:14 Target Cells Not Reportable 12/10/17 13:14 Tear Drop Cells Not Reportable 12/10/17 13:14 Ovalocytes Not Reportable 12/10/17 13:14 Helmet Cells Not Reportable 12/10/17 13:14 [place] Bodies Not Reportable 12/10/17 13:14 [place] Rings Not Reportable 12/10/17 13:14 [place] Cells Not Reportable 12/10/17 13:14 Bite Cells Not Reportable 12/10/17 13:14 Crenated Cell 3+ 12/10/17 13:14 Elliptocytes Not Reportable 12/10/17 13:14 Acanthocytes (Spur) Not Reportable 12/10/17 13:14 Rouleaux Not Reportable 12/10/17 13:14 Hemoglobin C Crystals Not Reportable 12/10/17 13:14 Schistocytes 1+ 12/10/17 13:14 Malaria parasites Not Reportable 12/10/17 13:14 [place] Bodies Not Reportable 12/10/17 13:14 Hem Pathologist Commnt No 12/10/17 13:14 PT 19.1 Sec. (12.2-14.9) H 12/11/17 04:34 INR 1.51 (0.87-1.13) H 12/11/17 04:34 APTT 45.7 Sec. (24.2-36.6) H 12/11/17 04:34 Sodium 136 mmol/L (137-145) L 12/10/17 13:14 Potassium 5.2 mmol/L (3.6-5.0) H 12/10/17 13:14 Chloride 103.3 mmol/L (98-107) 12/10/17 13:14 Carbon Dioxide 15 mmol/L (22-30) L 12/10/17 13:14 Anion Gap 23 mmol/L 12/10/17 13:14 BUN 47 mg/dL (9-20) H 12/10/17 13:14 Creatinine 5.2 mg/dL (0.8-1.5) H 12/10/17 13:14 Estimated GFR 14 ml/min 12/10/17 13:14 BUN/Creatinine Ratio 9 % 12/10/17 13:14 Glucose 127 mg/dL (75-100) H 12/10/17 13:14 POC Glucose 113 (70-105) H 12/11/17 04:08 Lactic Acid 3.10 mmol/L (0.7-2.0) H* 12/11/17 13:12 Calcium 8.6 mg/dL (8.4-10.2) 12/10/17 13:14 Total Bilirubin 3.50 mg/dL (0.1-1.2) H 12/10/17 13:14 AST 71 units/L (5-40) H 12/10/17 13:14 ALT 31 units/L (7-56) 12/10/17 13:14 Alkaline Phosphatase 101 units/L (35-129) 12/10/17 13:14 Ammonia 134.0 umol/L (25-60) H 12/10/17 23:14 Total Creatine Kinase 64 units/L (55-170) 12/10/17 23:14 NT-Pro-B Natriuret Pep 9558 pg/mL (0-900) H 12/10/17 23:14 Total Protein 6.4 g/dL (6.3-8.2) 12/10/17 13:14 Albumin 2.6 g/dL (3.9-5) L 12/10/17 13:14 Albumin/Globulin Ratio 0.7 % 12/10/17 13:14 Lipase 7 units/L (13-60) L 12/10/17 23:14 TSH 3.900 mlU/mL (0.270-4.200) 12/10/17 23:14 Urine Color Yellow (Yellow) 12/10/17 23:05 Urine Turbidity Clear (Clear) 12/10/17 23:05 Urine pH 5.0 (5.0-7.0) 12/10/17 23:05 Ur Specific [place] 1.013 (1.003-1.030) 12/10/17 23:05 Urine Protein <15 mg/dl mg/dL (Negative) 12/10/17 23:05 Urine Glucose (UA) Neg mg/dL (Negative) 12/10/17 23:05 Urine Ketones Neg mg/dL (Negative) 12/10/17 23:05 Urine Blood Neg (Negative) 12/10/17 23:05 Urine Nitrite Neg (Negative) 12/10/17 23:05 Ur Reducing Substances Not Reportable 12/10/17 23:05 Urine Bilirubin Neg (Negative) 12/10/17 23:05 Urine Ictotest Not Reportable 12/10/17 23:05 Urine Urobilinogen < 2.0 mg/dL (<2.0) 12/10/17 23:05 Ur Leukocyte Esterase Sm (Negative) 12/10/17 23:05 Urine WBC (Auto) 10.0 /HPF (0.0-6.0) H 12/10/17 23:05 Urine RBC (Auto) 4.0 /HPF (0.0-6.0) 12/10/17 23:05 U Epithel Cells (Auto) < 1.0 /HPF (0-13.0) 12/10/17 23:05 Urine Mucus Few /HPF 12/10/17 23:05
[2017-12-11] MEDS ORDERED: NACL 0.9% 500 ML 500 ML IV ONE (17:20)
--- NOTE | 2017-12-11 18:24 | Consultation ---
History of Present Illness Consult date: 12/11/17 Reason for consult: other (Sepsis) History of present illness: The patient is a 62-year-old male with a history of cirrhosis, who presents for evaluation of abdominal pain and generalized weakness. The patient and his report one week of generalized abdominal pain, moderate in severity, pressure-like in quality, exacerbated with coughing, and associated with recurrent loose watery stools and a nonproductive cough of same duration. The shares that his blood pressure was found to be 76/49 earlier today, prompting his presentation. Patient was seen and examined in the ER. Vitals, labs, medications, chart and imaging reviewed. Most of the history was obtained from review of the medical records. Patient was unable to give me a history - Past Medical History Hx Hypertension: Yes Hx Congestive Heart Failure: No Hx Diabetes: No Hx Liver Disease: Yes Hx Seizures: Yes Hx Asthma: No Hx COPD: No Hx HIV: No Additional medical history: enlarged liver, pituitary adenoma, cirrhosis with ascites. cataracts. glaucoma. anemia. GI bleed - Surgical History Additional Surgical History: left 5th toe amputated. right third toe (hammertoe ) - Social History Smoking Status: Never Smoker Substance Use Type: None Medications and Allergies Allergies Allergy/AdvReac Type Severity Reaction Status Date / Time acetazolamide Allergy Unknown Verified 06/13/17 10:58 codeine Allergy Rash Verified 06/13/17 10:57 Home Medications Medication Instructions Recorded Confirmed Last Taken Type Rifaximin [Xifaxan] 550 mg PO BID #60 tablet 06/29/17 12/10/17 Unknown Rx Lactulose [Constulose] 30 ml PO 4XD 12/11/17 12/11/17 Unknown History Pantoprazole [Protonix TAB] 40 mg PO DAILY 12/11/17 12/11/17 Unknown History Sodium Bicarbonate 650 mg PO BID 12/11/17 12/11/17 Unknown History Tamsulosin HCl [Flomax] 1 cap PO DAILY 12/11/17 12/11/17 Unknown History Zinc Sulfate 2 tab PO DAILY 12/11/17 12/11/17 Unknown History Active Meds: Active Medications Acetaminophen (Tylenol) 650 mg PO Q4H PRN PRN Reason: Fever >101 Albumin Human ([place] 25% (Albumin)) 25 gm IV Q12HR RIVKA Last Admin: 12/11/17 11:23 Dose: 25 gm Norepinephrine (Levophed Drip 4 Mg/Ns 250 Ml) 4 mg in 250 mls @ 7.5 mls/hr IV TITR RIVKA; Protocol Last Titration: 12/11/17 10:50 Dose: 2 mcg/min, 7.5 mls/hr Ceftriaxone Sodium (Rocephin/Ns 1 Gm/50 Ml) 1 gm in 50 mls @ 100 mls/hr IV Q24HR RIVKA; Protocol Sodium Bicarbonate 150 meq/ (Dextrose) 1,150 mls @ 75 mls/hr IV DIRECT RIVKA Last Admin: 12/11/17 12:21 Dose: 75 mls/hr Lactulose (Cephulac) 20 gm PO Q6HR RIVKA Last Admin: 12/11/17 13:06 Dose: 20 gm Vancomycin HCl (Vancomycin Pharmacy To Dose) 1 each IV PKCONSULT RIVKA Physical Examination Vital signs: Vital Signs Temp Pulse Resp BP Pulse Ox 98.1 F 67 20 83/49 98 12/10/17 12:36 12/10/17 12:36 12/10/17 12:36 12/10/17 12:36 12/10/17 12:36 General appearance: lethargic, other (chronically ill looking) Eyes: non-icteric ENT: oropharynx dry Neck: supple, no lymphadenopathy, no JVD Effort: mildly labored Ascultation: Bilateral: diminished breath sounds, rhonchi Cardiovascular: regular rate and rhythm, other (S1,S2, no murmurms, gallops or rubs) Gastrointestinal: normoactive bowel sounds, soft, non-tender, other (distended) Integumentary: rash Extremities: no cyanosis, no edema, no ischemia or petechiae, cool Musculoskeletal: no deformities Gait: other (unable to assess) pupils equal and round, unable to assess, other other (unable to assess) Results - Laboratory Findings CBC and BMP: 12/12/17 03:41 12/12/17 03:41 PT/INR, D-dimer PT 19.1 Sec. (12.2-14.9) H 12/11/17 04:34 INR 1.51 (0.87-1.13) H 12/11/17 04:34 Abnormal lab findings: Abnormal Labs 12/10/17 12/10/17 12/10/17 13:14 13:14 23:05 RBC 2.31 L Hgb 7.3 L Hct 21.5 L RDW 17.7 H Plt Count 61 L Seg Neuts % (Manual) 81.0 H Lymphocytes % (Manual) 11.0 L Lymphocytes # (Manual) 0.6 L PT INR APTT Sodium 136 L Potassium 5.2 H Carbon Dioxide 15 L BUN 47 H Creatinine 5.2 H Glucose 127 H POC Glucose Lactic Acid Total Bilirubin 3.50 H AST 71 H Ammonia NT-Pro-B Natriuret Pep Albumin 2.6 L Lipase Urine WBC (Auto) 10.0 H 12/10/17 12/10/17 12/10/17 23:14 23:14 23:14 RBC Hgb Hct RDW Plt Count Seg Neuts % (Manual) Lymphocytes % (Manual) Lymphocytes # (Manual) PT INR APTT Sodium Potassium Carbon Dioxide BUN Creatinine Glucose POC Glucose Lactic Acid 2.40 H* Total Bilirubin AST Ammonia 134.0 H NT-Pro-B Natriuret Pep 9558 H Albumin Lipase Urine WBC (Auto) 12/10/17 12/11/17 12/11/17 23:14 00:29 03:33 RBC Hgb Hct RDW Plt Count Seg Neuts % (Manual) Lymphocytes % (Manual) Lymphocytes # (Manual) PT INR APTT Sodium Potassium Carbon Dioxide BUN Creatinine Glucose POC Glucose Lactic Acid 2.80 H* 3.00 H* Total Bilirubin AST Ammonia NT-Pro-B Natriuret Pep Albumin Lipase 7 L Urine WBC (Auto) 12/11/17 12/11/17 12/11/17 04:08 04:34 04:34 RBC Hgb Hct RDW Plt Count Seg Neuts % (Manual) Lymphocytes % (Manual) Lymphocytes # (Manual) PT 19.1 H INR 1.51 H APTT 45.7 H Sodium Potassium Carbon Dioxide BUN Creatinine Glucose POC Glucose 113 H Lactic Acid 3.10 H* Total Bilirubin AST Ammonia NT-Pro-B Natriuret Pep Albumin Lipase Urine WBC (Auto) 12/11/17 12/11/17 12/11/17 06:46 07:26 09:42 RBC Hgb Hct RDW Plt Count Seg Neuts % (Manual) Lymphocytes % (Manual) Lymphocytes # (Manual) PT INR APTT Sodium Potassium Carbon Dioxide BUN Creatinine Glucose POC Glucose Lactic Acid 2.70 H* 2.80 H* 2.90 H* Total Bilirubin AST Ammonia NT-Pro-B Natriuret Pep Albumin Lipase Urine WBC (Auto) 12/11/17 12/11/17 13:12 14:06 RBC Hgb Hct RDW Plt Count Seg Neuts % (Manual) Lymphocytes % (Manual) Lymphocytes # (Manual) PT INR APTT Sodium Potassium Carbon Dioxide BUN Creatinine Glucose POC Glucose Lactic Acid 3.10 H* 3.10 H* Total Bilirubin AST Ammonia NT-Pro-B Natriuret Pep Albumin Lipase Urine WBC (Auto) Assessment and Plan Sepsis, possibly SBP Acute encephalopathy Severe anemia Cirrhosis with esophageal varices Rectal bleeding Coagulopathy Metabolic acidosis, multifactorial Nonoliguric CARMEN secondary to prerenal azotemia due to hypoperfusion ATN vs HRS Moderate protein calorie malnutrition -Admit ICU -Volume resuscitate -Monitor hemodynamics and add vasopressor support for MAP<60 -Antibiotics target SBP -Aspiration precautions -NPO for now -Sepsis protocol -Avoid nephrotoxics and adjust all medications for GFR -GI consult -Initiate therapeutic PPI -Octreotide -RUQ USS if any asictes will need diagnostic tap -Change ceftriaxone to cefotaxime 2gram q8h for possible SBP -Follow up cultures -Get ammonia levels, lactulose to titrate to 2-3 bowel movements a day -ABGs to assess acid base balance -SCDs for VTE prophylaxis in view of GIB and coagulopathy -Supportive transfusions -Nutrition consult FULL CODE STATUS PROGNOSIS GUARDED The high probability of a clinically significant, sudden or life threatening deterioration of the [pulmonary, renal, hepatobiliary system(s) required my full and direct attention, intervention and personal management. The aggregate critical care time was [60] minutes. This time is in addition to time spent performing reported procedures but includes the following: [x] Data Review and interpretation [x] Patient assessment and monitoring of vital signs [x] Documentation [x] Medication orders and management
--- NOTE | 2017-12-11 18:51 | Procedure Note ---
Pre-op diagnosis: sepsis Post-op diagnosis: same Procedure: Right IJ Central Line Placement under Ultrasound guidance. A timeout was taken to verify correct patient, procedure, and operative site. The patient was prepped and draped in the usual sterile fashion. Ultrasound was used to localice the RIJ Vein. Local antsthesia obtained with lidocaine. The Seldinger technique was used to access the RIJV under ultrasound guidance without difficulty. A seeker needle was used to access the RIJV underultrasound and a guidewire was advanced into the RIJV. The seeker needle was then removed over the guidewire. A scalpel was used to incise the skin, and a dilator was then passed over the guidewire into the RIJV and them removed. A triple lumen catheter was advanced into the RIJV without difficulty, and the guidewire was removed. The triple lumen catheter was sewn in place, and a biopath was placed at the insertion site. All 3 ports flush and draw with ease. Postop CXR shows no pneumothorax. Anesthesia: local Surgeon: DARVIN MUSTAFA Estimated blood loss: minimal Pathology: none Disposition: ICU
--- NOTE | 2017-12-11 19:44 | XRay Report ---
FINAL REPORT EXAM: XR CHEST 1V AP HISTORY: confirm line placement. TECHNIQUE: Chest single AP PRIORS: None. FINDINGS: There is been placement of right IJ central venous catheter with tip at the SVC. Small right effusion noted which appears slightly smaller than the prior exam there is increased of atelectasis or infiltrate at the right lower lobe. There is layering small left effusion present. There is no evidence for pneumothorax post line placement cardiac and mediastinal contours are unchanged. IMPRESSION: Right IJ catheter in satisfactory position Bilateral pleural effusions which appear improving on the right with atelectasis at the right lower lobe No evidence for pneumothorax post line placement
[2017-12-12] MEDS: CEPHULAC PO SCH ×4 (00:32→17:44)
[2017-12-12] MEDS: ALBURX 25% (ALBUMIN) IV SCH ×3 (00:33→22:00)
[2017-12-12 04:19] LABS: Mean Corpuscular HGB Conc 35 % (32-34); Mean Corpuscular Hemoglobin 33 pg (28-32); Mean Corpuscular Volume 92 fl (84-94); Red Blood Count 2.17 M/mm3 (3.65-5.03); Red Cell Distribution Width 17.7 % (13.2-15.2)
[2017-12-12 04:27] LABS: Albumin 2.5 g/dL (3.9-5)
[2017-12-12 04:50] LABS: Hematocrit 19.9 % (35.5-45.6)
[2017-12-12 05:59] LABS: Band Neutrophils # (Manual) 0.1 K/mm3; Basophils % (Manual) 0 % (0.0-1.8); Total Cells Counted 100
[2017-12-12 06:00] LABS: Anisocytosis 2+; Crenated RBC 3+; Platelet Estimate Appears Decreased; Poikilocytosis 2+
[2017-12-12 06:01] LABS: Platelet Count 62 K/mm3 (140-440)
--- NOTE | 2017-12-12 06:46 | Progress Note ---
Assessment and Plan - Patient Problems (1) Hypovolemic shock Current Visit: Yes Status: Acute Plan to address problem: Pt treated IAW sepsis protocol. IV antibiotics, IVF resuscitation, Pt assessed. Central line placed The high probability of a clinically significant, sudden or life threatening deterioration of the [pulmonary, renal, neuro, endocrine] system(s) required my full and direct attention, intervention and personal management. The aggregate critical care time was [60] minutes. This time is in addition to time spent performing reported procedures but includes the following: [x] Data Review and interpretation [x] Patient assessment and monitoring of vital signs [x] Documentation [x] Medication orders and management History Interval history: Pt lying in bed, stuporous, in moderate distress. Hospitalist Physical - Constitutional Vitals: Temp Pulse Resp BP Pulse Ox 97.1 F L 72 18 97/56 100 12/12/17 04:00 12/12/17 06:00 12/12/17 06:00 12/11/17 22:00 12/12/17 06:00 General appearance: Present: severe distress - EENT Eyes: Present: miosis - Neck Neck: Present: supple - Respiratory Respiratory: bilateral: diminished - Cardiovascular Rhythm: other (tachycardia) - Extremities Extremities: no ischemia Peripheral Pulses: abnormal (capillary refill greater than 3.5 seconds) - Abdominal General gastrointestinal: soft, non-tender, non-distended - Integumentary Integumentary: Present: clear, dry, clammy, decreased turgor - Psychiatric Psychiatric: no intact judgment & insight, no memory intact - Neurologic Neurologic: no focal deficits, no gait normal Results - Labs CBC & Chem 7: 12/12/17 03:41 12/12/17 03:41 Labs: Laboratory Last Values WBC 6.0 K/mm3 (4.5-11.0) 12/12/17 03:41 RBC 2.17 M/mm3 (3.65-5.03) L 12/12/17 03:41 Hgb 7.0 gm/dl (11.8-15.2) L 12/12/17 03:41 Hct 19.9 % (35.5-45.6) L* 12/12/17 03:41 MCV 92 fl (84-94) 12/12/17 03:41 MCH 33 pg (28-32) H 12/12/17 03:41 MCHC 35 % (32-34) H 12/12/17 03:41 RDW 17.7 % (13.2-15.2) H 12/12/17 03:41 Plt Count 62 K/mm3 (140-440) L 12/12/17 03:41 Add Manual Diff Complete 12/12/17 03:41 Total Counted 100 12/12/17 03:41 Seg Neuts % (Manual) 91.0 % (40.0-70.0) H 12/12/17 03:41 Band Neutrophils % 1.0 % 12/12/17 03:41 Lymphocytes % (Manual) 3.0 % (13.4-35.0) L 12/12/17 03:41 Reactive Lymphs % (Man) 0 % 12/12/17 03:41 Monocytes % (Manual) 3.0 % (0.0-7.3) 12/12/17 03:41 Eosinophils % (Manual) 2.0 % (0.0-4.3) 12/12/17 03:41 Basophils % (Manual) 0 % (0.0-1.8) 12/12/17 03:41 Metamyelocytes % 0 % 12/12/17 03:41 Myelocytes % 0 % 12/12/17 03:41 Promyelocytes % 0 % 12/12/17 03:41 Blast Cells % 0 % 12/12/17 03:41 Nucleated RBC % Not Reportable 12/12/17 03:41 Seg Neutrophils # Man 5.5 K/mm3 (1.8-7.7) 12/12/17 03:41 Band Neutrophils # 0.1 K/mm3 12/12/17 03:41 Lymphocytes # (Manual) 0.2 K/mm3 (1.2-5.4) L 12/12/17 03:41 Abs React Lymphs (Man) 0.0 K/mm3 12/12/17 03:41 Monocytes # (Manual) 0.2 K/mm3 (0.0-0.8) 12/12/17 03:41 Eosinophils # (Manual) 0.1 K/mm3 (0.0-0.4) 12/12/17 03:41 Basophils # (Manual) 0.0 K/mm3 (0.0-0.1) 12/12/17 03:41 Metamyelocytes # 0.0 K/mm3 12/12/17 03:41 Myelocytes # 0.0 K/mm3 12/12/17 03:41 Promyelocytes # 0.0 K/mm3 12/12/17 03:41 Blast Cells # 0.0 K/mm3 12/12/17 03:41 WBC Morphology Not Reportable 12/12/17 03:41 Hypersegmented Neuts Not Reportable 12/12/17 03:41 Hyposegmented Neuts Not Reportable 12/12/17 03:41 Hypogranular Neuts Not Reportable 12/12/17 03:41 Smudge Cells Not Reportable 12/12/17 03:41 Toxic Granulation Not Reportable 12/12/17 03:41 Toxic Vacuolation Not Reportable 12/12/17 03:41 Dohle Bodies Not Reportable 12/12/17 03:41 Pelger-Huet Anomaly Not Reportable 12/12/17 03:41 Eriberto Rods Not Reportable 12/12/17 03:41 Platelet Estimate Appears decreased 12/12/17 03:41 Clumped Platelets Not Reportable 12/12/17 03:41 Plt Clumps, EDTA Not Reportable 12/12/17 03:41 Large Platelets Not Reportable 12/12/17 03:41 Giant Platelets Not Reportable 12/12/17 03:41 Platelet Satelliting Not Reportable 12/12/17 03:41 Plt Morphology Comment Not Reportable 12/12/17 03:41 RBC Morphology Not Reportable 12/12/17 03:41 Dimorphic RBCs Not Reportable 12/12/17 03:41 Polychromasia Not Reportable 12/12/17 03:41 Hypochromasia Not Reportable 12/12/17 03:41 Poikilocytosis 2+ 12/12/17 03:41 Anisocytosis 2+ 12/12/17 03:41 Microcytosis Not Reportable 12/12/17 03:41 Macrocytosis Not Reportable 12/12/17 03:41 Spherocytes Not Reportable 12/12/17 03:41 Pappenheimer Bodies Not Reportable 12/12/17 03:41 Sickle Cells Not Reportable 12/12/17 03:41 Target Cells Not Reportable 12/12/17 03:41 Tear Drop Cells Not Reportable 12/12/17 03:41 Ovalocytes Not Reportable 12/12/17 03:41 Helmet Cells Not Reportable 12/12/17 03:41 [place] Bodies Not Reportable 12/12/17 03:41 [place] Rings Not Reportable 12/12/17 03:41 [place] Cells Not Reportable 12/12/17 03:41 Bite Cells Not Reportable 12/12/17 03:41 Crenated Cell 3+ 12/12/17 03:41 Elliptocytes Not Reportable 12/12/17 03:41 Acanthocytes (Spur) Not Reportable 12/12/17 03:41 Rouleaux Not Reportable 12/12/17 03:41 Hemoglobin C Crystals Not Reportable 12/12/17 03:41 Schistocytes Not Reportable 12/12/17 03:41 Malaria parasites Not Reportable 12/12/17 03:41 [place] Bodies Not Reportable 12/12/17 03:41 Hem Pathologist Commnt No 12/12/17 03:41 PT 19.1 Sec. (12.2-14.9) H 12/11/17 04:34 INR 1.51 (0.87-1.13) H 12/11/17 04:34 APTT 45.7 Sec. (24.2-36.6) H 12/11/17 04:34 Sodium 137 mmol/L (137-145) 12/12/17 03:41 Potassium 5.4 mmol/L (3.6-5.0) H 12/12/17 03:41 Chloride 105.1 mmol/L (98-107) 12/12/17 03:41 Carbon Dioxide 12 mmol/L (22-30) L 12/12/17 03:41 Anion Gap 25 mmol/L 12/12/17 03:41 BUN 47 mg/dL (9-20) H 12/12/17 03:41 Creatinine 4.5 mg/dL (0.8-1.5) H 12/12/17 03:41 Estimated GFR 16 ml/min 12/12/17 03:41 BUN/Creatinine Ratio 10 % 12/12/17 03:41 Glucose 103 mg/dL (75-100) H 12/12/17 03:41 POC Glucose 113 (70-105) H 12/11/17 04:08 Lactic Acid 3.70 mmol/L (0.7-2.0) H* 12/11/17 23:14 Calcium 8.0 mg/dL (8.4-10.2) L 12/12/17 03:41 Magnesium 1.80 mg/dL (1.7-2.3) 12/12/17 03:41 Total Bilirubin 3.60 mg/dL (0.1-1.2) H 12/12/17 03:41 AST 58 units/L (5-40) H 12/12/17 03:41 ALT 26 units/L (7-56) 12/12/17 03:41 Alkaline Phosphatase 75 units/L (35-129) 12/12/17 03:41 Ammonia 134.0 umol/L (25-60) H 12/10/17 23:14 Total Creatine Kinase 64 units/L (55-170) 12/10/17 23:14 NT-Pro-B Natriuret Pep 9558 pg/mL (0-900) H 12/10/17 23:14 Total Protein 5.9 g/dL (6.3-8.2) L 12/12/17 03:41 Albumin 2.5 g/dL (3.9-5) L 12/12/17 03:41 Albumin/Globulin Ratio 0.7 % 12/12/17 03:41 Lipase 7 units/L (13-60) L 12/10/17 23:14 TSH 3.900 mlU/mL (0.270-4.200) 12/10/17 23:14 Urine Color Yellow (Yellow) 12/10/17 23:05 Urine Turbidity Clear (Clear) 12/10/17 23:05 Urine pH 5.0 (5.0-7.0) 12/10/17 23:05 Ur Specific [place] 1.013 (1.003-1.030) 12/10/17 23:05 Urine Protein <15 mg/dl mg/dL (Negative) 12/10/17 23:05 Urine Glucose (UA) Neg mg/dL (Negative) 12/10/17 23:05 Urine Ketones Neg mg/dL (Negative) 12/10/17 23:05 Urine Blood Neg (Negative) 12/10/17 23:05 Urine Nitrite Neg (Negative) 12/10/17 23:05 Ur Reducing Substances Not Reportable 12/10/17 23:05 Urine Bilirubin Neg (Negative) 12/10/17 23:05 Urine Ictotest Not Reportable 12/10/17 23:05 Urine Urobilinogen < 2.0 mg/dL (<2.0) 12/10/17 23:05 Ur Leukocyte Esterase Sm (Negative) 12/10/17 23:05 Urine WBC (Auto) 10.0 /HPF (0.0-6.0) H 12/10/17 23:05 Urine RBC (Auto) 4.0 /HPF (0.0-6.0) 12/10/17 23:05 U Epithel Cells (Auto) < 1.0 /HPF (0-13.0) 12/10/17 23:05 Urine Mucus Few /HPF 12/10/17 23:05 Blood Type A NEGATIVE 12/11/17:23 Antibody Screen Negative 12/11/17 23:23
[2017-12-12 08:37] LABS: Hemoglobin 6.6 gm/dl (11.8-15.2); Mean Corpuscular HGB Conc 36 % (32-34); Mean Corpuscular Hemoglobin 32 pg (28-32); Mean Corpuscular Volume 90 fl (84-94); Red Blood Count 2.06 M/mm3 (3.65-5.03); Red Cell Distribution Width 17.8 % (13.2-15.2)
[2017-12-12 08:47] LABS: Hematocrit 18.6 % (35.5-45.6); Platelet Count 77 K/mm3 (140-440)
--- NOTE | 2017-12-12 09:28 | Progress Note ---
Assessment and Plan Impression: * Nonoliguric CARMEN secondary to prerenal azotemia due to hypoperfusion ATN vs HRS * Hyperkalemia * sepsis * Severe anemia secondary to ABL * Rectal bleeding * Cirrhosis w/ esophageal varices * Metabolic acidosis * Hyperbilirubinemia * pyuria Plan: * Renal function is worse than baseline, but improved today * continue bicarb gtt and iv albumin * vasopressors to keep map >65 * strict i/os, avoid nephrotoxins * daily lytes * no indication for waste reduction coordinator at this time * empiric abx for SBP and UTI * Transfusion pRBC per primary team * Gastroenterology consultation needed * Medical management of electrolytes * Avoid potential nephrotoxic agents * Dose medications for renal function Subjective Date of service: 12/12/17 Principal diagnosis: 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 Interval history: in bed, confused, no acute events Objective - Exam Narrative Exam: General: well-nourished, well-developed, no acute distress Head: Normocephalic, atraumatic Eyes: normal sclera ENT: Mucous membranes are pale and dry Neck: No neck stiffness, no cervical adenopathy Respiratory: Breath sounds equal bilaterally, no wheezing, rales, or rhonchi Cardio: S1 and S2 present, no murmurs, rubs, gallops, capillary refill is delayed Abdomen: Normoactive bowel sounds, soft abdomen, generalized tenderness to palpation present, no rigidity, no guarding or rebound tenderness Chest WALL/Back: No tenderness to palpation of the chest wall, no CVA tenderness with percussion Musc: No pitting edema Skin: No rash Neuro: no facial drooping, normal speech Psych: Normal affect - Vital Signs Vital signs: Vital Signs - 12hr 12/11/17 12/11/17 12/11/17 21:30 21:37 21:45 Temperature 96.5 F L Pulse Rate 71 68 Pulse Rate [ Apical] Respiratory 13 12 Rate Blood Pressure 100/62 97/56 O2 Sat by Pulse 100 100 Oximetry 12/11/17 12/11/17 12/11/17 22:00 22:25 22:30 Temperature 97.4 F L Pulse Rate 76 Pulse Rate [ 74 Apical] Respiratory 20 21 Rate Blood Pressure 97/56 O2 Sat by Pulse 98 100 Oximetry 12/12/17 12/12/17 12/12/17 00:00 00:30 00:40 Temperature 97.7 F Pulse Rate 71 68 Pulse Rate [ 72 Apical] Respiratory 23 11 L 12 Rate Blood Pressure 95/53 95/53 O2 Sat by Pulse 100 100 100 Oximetry 12/12/17 12/12/17 12/12/17 00:50 01:00 01:10 Temperature Pulse Rate 71 75 68 Pulse Rate [ Apical] Respiratory 14 15 11 L Rate Blood Pressure 86/57 93/59 93/59 O2 Sat by Pulse 100 96 100 Oximetry 12/12/17 12/12/17 12/12/17 01:20 01:30 01:40 Temperature Pulse Rate 70 70 76 Pulse Rate [ Apical] Respiratory 14 15 14 Rate Blood Pressure 96/53 106/53 106/53 O2 Sat by Pulse 100 100 100 Oximetry 12/12/17 12/12/17 12/12/17 01:50 02:00 02:10 Temperature Pulse Rate 74 75 73 Pulse Rate [ 76 Apical] Respiratory 16 16 13 Rate Blood Pressure 96/58 96/58 106/52 O2 Sat by Pulse 100 100 100 Oximetry 12/12/17 12/12/17 12/12/17 02:20 02:30 02:40 Temperature Pulse Rate 73 73 76 Pulse Rate [ Apical] Respiratory 13 14 13 Rate Blood Pressure 98/55 103/54 103/54 O2 Sat by Pulse 100 95 100 Oximetry 12/12/17 12/12/17 12/12/17 02:50 03:00 03:10 Temperature Pulse Rate 75 76 79 Pulse Rate [ Apical] Respiratory 11 L 15 15 Rate Blood Pressure 110/57 110/57 103/65 O2 Sat by Pulse 100 100 100 Oximetry 12/12/17 12/12/17 12/12/17 03:20 03:30 03:40 Temperature Pulse Rate 77 78 76 Pulse Rate [ Apical] Respiratory 14 15 14 Rate Blood Pressure 106/59 108/58 108/58 O2 Sat by Pulse 100 100 100 Oximetry 12/12/17 12/12/17 12/12/17 03:50 04:00 04:10 Temperature 97.1 F L Pulse Rate 76 76 74 Pulse Rate [ 75 Apical] Respiratory 14 14 14 Rate Blood Pressure 106/59 98/57 98/57 O2 Sat by Pulse 100 100 100 Oximetry 12/12/17 12/12/17 12/12/17 04:20 04:30 04:40 Temperature Pulse Rate 76 78 77 Pulse Rate [ Apical] Respiratory 15 12 15 Rate Blood Pressure 103/56 106/59 106/59 O2 Sat by Pulse 100 100 100 Oximetry 12/12/17 12/12/17 12/12/17 04:50 05:00 05:10 Temperature Pulse Rate 77 72 75 Pulse Rate [ Apical] Respiratory 17 13 13 Rate Blood Pressure 107/57 107/54 107/54 O2 Sat by Pulse 100 100 100 Oximetry 12/12/17 12/12/17 12/12/17 05:20 05:30 05:40 Temperature Pulse Rate 75 75 73 Pulse Rate [ Apical] Respiratory 13 14 18 Rate Blood Pressure 107/57 103/59 103/59 O2 Sat by Pulse 100 100 100 Oximetry 12/12/17 12/12/17 12/12/17 05:50 06:00 06:10 Temperature Pulse Rate 75 73 73 Pulse Rate [ 72 Apical] Respiratory 11 L 13 11 L Rate Blood Pressure 99/62 100/57 O2 Sat by Pulse 100 100 100 Oximetry 12/12/17 12/12/17 12/12/17 06:20 06:30 06:40 Temperature Pulse Rate 78 75 76 Pulse Rate [ Apical] Respiratory 12 14 14 Rate Blood Pressure 98/60 105/55 105/55 O2 Sat by Pulse 100 100 100 Oximetry 12/12/17 12/12/17 12/12/17 06:50 07:00 07:10 Temperature Pulse Rate 74 77 76 Pulse Rate [ Apical] Respiratory 15 13 12 Rate Blood Pressure 100/58 105/57 105/57 O2 Sat by Pulse 100 100 100 Oximetry 12/12/17 12/12/17 12/12/17 07:20 07:30 07:40 Temperature Pulse Rate 75 77 78 Pulse Rate [ Apical] Respiratory 12 14 14 Rate Blood Pressure 99/56 100/56 105/57 O2 Sat by Pulse 100 100 100 Oximetry 12/12/17 12/12/17 12/12/17 07:50 08:00 08:10 Temperature Pulse Rate 75 74 76 Pulse Rate [ Apical] Respiratory 14 12 14 Rate Blood Pressure 97/56 104/55 95/55 O2 Sat by Pulse 100 100 100 Oximetry 12/12/17 12/12/17 12/12/17 08:20 08:30 08:40 Temperature Pulse Rate 78 78 75 Pulse Rate [ Apical] Respiratory 14 14 11 L Rate Blood Pressure 96/61 102/58 95/55 O2 Sat by Pulse 100 100 100 Oximetry - Lab 12/12/17 07:00 12/12/17 03:41 Most recent lab results Calcium 8.0 mg/dL (8.4-10.2) L 12/12/17 03:41 Magnesium 1.80 mg/dL (1.7-2.3) 12/12/17 03:41
[2017-12-12] MEDS: PROTONIX IV SCH (10:16)
[2017-12-12] MEDS: ROCEPHIN/NS 1 GM/50 ML 1 GM/50 ML BAG IV SCH (10:17)
[2017-12-12] MEDS ORDERED: NACL 0.9% 500 ML 500 ML IV ONE (11:10)
--- NOTE | 2017-12-12 11:16 | Progress Note ---
Assessment and Plan Sepsis, possibly SBP Acute encephalopathy Severe anemia Lactic acidosis, multifactorial Cirrhosis with esophageal varices Rectal bleeding Coagulopathy Metabolic acidosis, multifactorial Respiratory alkalosis Nonoliguric CARMEN secondary to prerenal azotemia due to hypoperfusion ATN vs HRS Moderate protein calorie malnutrition -Volume resuscitate -Monitor hemodynamics and add vasopressor support for MAP<60 -Antibiotics target SBP and CAP. Add levofloxacin -Aspiration precautions -NPO for now, place small bowel feeding tube for medications -Resume chronic home medications, including rifaximin and midodrine -Sepsis protocol -Avoid nephrotoxics and adjust all medications for GFR -GI consult, placed for Dr. Barros -Initiate therapeutic PPI -RUQ USS pending if any ascites will need diagnostic tap IR for right thoracentesis. Fluid to be sent for pleural fluid analysis -Ceftriaxone to continue for possible SBP -Follow up cultures -Continue with lactulose to titrate to 2-3 bowel movements a day -SCDs for VTE prophylaxis in view of GIB and coagulopathy -Supportive transfusions -Nutrition consult -PT/OT consult FULL CODE STATUS PROGNOSIS GUARDED The high probability of a clinically significant, sudden or life threatening deterioration of the [pulmonary, renal, hepatobiliary system(s) required my full and direct attention, intervention and personal management. The aggregate critical care time was [35] minutes. This time is in addition to time spent performing reported procedures but includes the following: [x] Data Review and interpretation [x] Patient assessment and monitoring of vital signs [x] Documentation [x] Medication orders and management Subjective Date of service: 12/12/17 Principal diagnosis: 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, encephalopathy, sepsis, anemia Interval history: Seen and examined. vitals, labs, medications, chart and imaging reviewed. No fevers or chills, no nausea or vomiting, very lethargic No shortness of breath. No urine output overnight 24 hour events reviewed. Discussed in IDT-ICU rounds. Objective Vital Signs - 12hr 12/12/17 12/12/17 12/12/17 00:00 00:30 00:40 Temperature 97.7 F Pulse Rate 71 68 Pulse Rate [ 72 Apical] Respiratory 23 11 L 12 Rate Blood Pressure 95/53 95/53 O2 Sat by Pulse 100 100 100 Oximetry 12/12/17 12/12/17 12/12/17 00:50 01:00 01:10 Temperature Pulse Rate 71 75 68 Pulse Rate [ Apical] Respiratory 14 15 11 L Rate Blood Pressure 86/57 93/59 93/59 O2 Sat by Pulse 100 96 100 Oximetry 12/12/17 12/12/17 12/12/17 01:20 01:30 01:40 Temperature Pulse Rate 70 70 76 Pulse Rate [ Apical] Respiratory 14 15 14 Rate Blood Pressure 96/53 106/53 106/53 O2 Sat by Pulse 100 100 100 Oximetry 12/12/17 12/12/17 12/12/17 01:50 02:00 02:10 Temperature Pulse Rate 74 75 73 Pulse Rate [ 76 Apical] Respiratory 16 16 13 Rate Blood Pressure 96/58 96/58 106/52 O2 Sat by Pulse 100 100 100 Oximetry 12/12/17 12/12/17 12/12/17 02:20 02:30 02:40 Temperature Pulse Rate 73 73 76 Pulse Rate [ Apical] Respiratory 13 14 13 Rate Blood Pressure 98/55 103/54 103/54 O2 Sat by Pulse 100 95 100 Oximetry 12/12/17 12/12/17 12/12/17 02:50 03:00 03:10 Temperature Pulse Rate 75 76 79 Pulse Rate [ Apical] Respiratory 11 L 15 15 Rate Blood Pressure 110/57 110/57 103/65 O2 Sat by Pulse 100 100 100 Oximetry 12/12/17 12/12/17 12/12/17 03:20 03:30 03:40 Temperature Pulse Rate 77 78 76 Pulse Rate [ Apical] Respiratory 14 15 14 Rate Blood Pressure 106/59 108/58 108/58 O2 Sat by Pulse 100 100 100 Oximetry 12/12/17 12/12/17 12/12/17 03:50 04:00 04:10 Temperature 97.1 F L Pulse Rate 76 76 74 Pulse Rate [ 75 Apical] Respiratory 14 14 14 Rate Blood Pressure 106/59 98/57 98/57 O2 Sat by Pulse 100 100 100 Oximetry 12/12/17 12/12/17 12/12/17 04:20 04:30 04:40 Temperature Pulse Rate 76 78 77 Pulse Rate [ Apical] Respiratory 15 12 15 Rate Blood Pressure 103/56 106/59 106/59 O2 Sat by Pulse 100 100 100 Oximetry 12/12/17 12/12/17 12/12/17 04:50 05:00 05:10 Temperature Pulse Rate 77 72 75 Pulse Rate [ Apical] Respiratory 17 13 13 Rate Blood Pressure 107/57 107/54 107/54 O2 Sat by Pulse 100 100 100 Oximetry 12/12/17 12/12/17 12/12/17 05:20 05:30 05:40 Temperature Pulse Rate 75 75 73 Pulse Rate [ Apical] Respiratory 13 14 18 Rate Blood Pressure 107/57 103/59 103/59 O2 Sat by Pulse 100 100 100 Oximetry 12/12/17 12/12/17 12/12/17 05:50 06:00 06:10 Temperature Pulse Rate 75 73 73 Pulse Rate [ 72 Apical] Respiratory 11 L 13 11 L Rate Blood Pressure 99/62 100/57 O2 Sat by Pulse 100 100 100 Oximetry 12/12/17 12/12/17 12/12/17 06:20 06:30 06:40 Temperature Pulse Rate 78 75 76 Pulse Rate [ Apical] Respiratory 12 14 14 Rate Blood Pressure 98/60 105/55 105/55 O2 Sat by Pulse 100 100 100 Oximetry 12/12/17 12/12/17 12/12/17 06:50 07:00 07:10 Temperature Pulse Rate 74 77 76 Pulse Rate [ Apical] Respiratory 15 13 12 Rate Blood Pressure 100/58 105/57 105/57 O2 Sat by Pulse 100 100 100 Oximetry 12/12/17 12/12/17 12/12/17 07:20 07:30 07:40 Temperature Pulse Rate 75 77 78 Pulse Rate [ Apical] Respiratory 12 14 14 Rate Blood Pressure 99/56 100/56 105/57 O2 Sat by Pulse 100 100 100 Oximetry 12/12/17 12/12/17 12/12/17 07:50 08:00 08:10 Temperature Pulse Rate 75 74 76 Pulse Rate [ Apical] Respiratory 14 12 14 Rate Blood Pressure 97/56 104/55 95/55 O2 Sat by Pulse 100 100 100 Oximetry 12/12/17 12/12/17 12/12/17 08:20 08:30 08:40 Temperature Pulse Rate 78 78 75 Pulse Rate [ Apical] Respiratory 14 14 11 L Rate Blood Pressure 96/61 102/58 95/55 O2 Sat by Pulse 100 100 100 Oximetry Constitutional: lethargic, other (chronically ill looking) Eyes: non-icteric ENT: oropharynx dry Neck: supple, no lymphadenopathy, no JVD Effort: mildly labored Ascultation: Bilateral: diminished breath sounds, rhonchi Cardiovascular: regular rate and rhythm, other (S1,S2, no murmurms, gallops or rubs) Gastrointestinal: normoactive bowel sounds, soft, non-tender, other (distended) Integumentary: rash Extremities: no cyanosis, no edema, no ischemia or petechiae, cool Neurologic: pupils equal and round, unable to assess, other Psychiatric: other (unable to assess) CBC and BMP: 12/12/17 07:00 12/12/17 03:41 ABG, PT/INR, D-dimer: ABG POC ABG pH 7.452 (7.35-7.45) H 12/12/17 09:13 POC ABG pCO2 22.2 (35-45) L 12/12/17 09:13 POC ABG pO2 75 (80-105) L 12/12/17 09:13 POC ABG HCO3 15.5 12/12/17 09:13 POC ABG Total CO2 16 12/12/17 09:13 POC ABG O2 Sat 96 12/12/17 09:13 PT/INR, D-dimer PT 19.1 Sec. (12.2-14.9) H 12/11/17 04:34 INR 1.51 (0.87-1.13) H 12/11/17 04:34 Abnormal lab findings: Abnormal Labs 12/10/17 12/10/17 12/10/17 13:14 13:14 23:05 RBC 2.31 L Hgb 7.3 L Hct 21.5 L MCH MCHC RDW 17.7 H Plt Count 61 L Seg Neuts % (Manual) 81.0 H Lymphocytes % (Manual) 11.0 L Lymphocytes # (Manual) 0.6 L PT INR APTT POC ABG pH POC ABG pCO2 POC ABG pO2 Sodium 136 L Potassium 5.2 H Carbon Dioxide 15 L BUN 47 H Creatinine 5.2 H Glucose 127 H POC Glucose Lactic Acid Calcium Total Bilirubin 3.50 H AST 71 H Ammonia NT-Pro-B Natriuret Pep Total Protein Albumin 2.6 L Lipase Urine WBC (Auto) 10.0 H Crossmatch 12/10/17 12/10/17 12/10/17 23:14 23:14 23:14 RBC Hgb Hct MCH MCHC RDW Plt Count Seg Neuts % (Manual) Lymphocytes % (Manual) Lymphocytes # (Manual) PT INR APTT POC ABG pH POC ABG pCO2 POC ABG pO2 Sodium Potassium Carbon Dioxide BUN Creatinine Glucose POC Glucose Lactic Acid 2.40 H* Calcium Total Bilirubin AST Ammonia 134.0 H NT-Pro-B Natriuret Pep 9558 H Total Protein Albumin Lipase Urine WBC (Auto) Crossmatch 12/10/17 12/11/17 12/11/17 23:14 00:29 03:33 RBC Hgb Hct MCH MCHC RDW Plt Count Seg Neuts % (Manual) Lymphocytes % (Manual) Lymphocytes # (Manual) PT INR APTT POC ABG pH POC ABG pCO2 POC ABG pO2 Sodium Potassium Carbon Dioxide BUN Creatinine Glucose POC Glucose Lactic Acid 2.80 H* 3.00 H* Calcium Total Bilirubin AST Ammonia NT-Pro-B Natriuret Pep Total Protein Albumin Lipase 7 L Urine WBC (Auto) Crossmatch 12/11/17 12/11/17 12/11/17 04:08 04:34 04:34 RBC Hgb Hct MCH MCHC RDW Plt Count Seg Neuts % (Manual) Lymphocytes % (Manual) Lymphocytes # (Manual) PT 19.1 H INR 1.51 H APTT 45.7 H POC ABG pH POC ABG pCO2 POC ABG pO2 Sodium Potassium Carbon Dioxide BUN Creatinine Glucose POC Glucose 113 H Lactic Acid 3.10 H* Calcium Total Bilirubin AST Ammonia NT-Pro-B Natriuret Pep Total Protein Albumin Lipase Urine WBC (Auto) Crossmatch 12/11/17 12/11/17 12/11/17 06:46 07:26 09:42 RBC Hgb Hct MCH MCHC RDW Plt Count Seg Neuts % (Manual) Lymphocytes % (Manual) Lymphocytes # (Manual) PT INR APTT POC ABG pH POC ABG pCO2 POC ABG pO2 Sodium Potassium Carbon Dioxide BUN Creatinine Glucose POC Glucose Lactic Acid 2.70 H* 2.80 H* 2.90 H* Calcium Total Bilirubin AST Ammonia NT-Pro-B Natriuret Pep Total Protein Albumin Lipase Urine WBC (Auto) Crossmatch 12/11/17 12/11/17 12/11/17 13:12 14:06 23:14 RBC Hgb Hct MCH MCHC RDW Plt Count Seg Neuts % (Manual) Lymphocytes % (Manual) Lymphocytes # (Manual) PT INR APTT POC ABG pH POC ABG pCO2 POC ABG pO2 Sodium Potassium Carbon Dioxide BUN Creatinine Glucose POC Glucose Lactic Acid 3.10 H* 3.10 H* 3.70 H* Calcium Total Bilirubin AST Ammonia NT-Pro-B Natriuret Pep Total Protein Albumin Lipase Urine WBC (Auto) Crossmatch 12/11/17 12/12/17 12/12/17 23:23 03:41 03:41 RBC 2.17 L Hgb 7.0 L Hct 19.9 L* MCH 33 H MCHC 35 H RDW 17.7 H Plt Count 62 L Seg Neuts % (Manual) 91.0 H Lymphocytes % (Manual) 3.0 L Lymphocytes # (Manual) 0.2 L PT INR APTT POC ABG pH POC ABG pCO2 POC ABG pO2 Sodium Potassium 5.4 H Carbon Dioxide 12 L BUN 47 H Creatinine 4.5 H Glucose 103 H POC Glucose Lactic Acid Calcium 8.0 L Total Bilirubin 3.60 H AST 58 H Ammonia NT-Pro-B Natriuret Pep Total Protein 5.9 L Albumin 2.5 L Lipase Urine WBC (Auto) Crossmatch See Detail 12/12/17 12/12/17 07:00 09:13 RBC 2.06 L Hgb 6.6 L Hct 18.6 L* MCH MCHC 36 H RDW 17.8 H Plt Count 77 L Seg Neuts % (Manual) Lymphocytes % (Manual) Lymphocytes # (Manual) PT INR APTT POC ABG pH 7.452 H POC ABG pCO2 22.2 L POC ABG pO2 75 L Sodium Potassium Carbon Dioxide BUN Creatinine Glucose POC Glucose Lactic Acid Calcium Total Bilirubin AST Ammonia NT-Pro-B Natriuret Pep Total Protein Albumin Lipase Urine WBC (Auto) Crossmatch Chest x-ray: image reviewed (Right LLinfiltrate with pleural effusion) Allied health notes reviewed: RT
[2017-12-12] MEDS: PROAMATINE PO SCH ×2 (12:00→17:42)
[2017-12-12] MEDS: XIFAXAN PO SCH ×2 (12:00→22:00)
--- NOTE | 2017-12-12 12:47 | Progress Note ---
Assessment and Plan Assessment and plan: Septic/hypovolemic shock. Will follow-up blood and urine cultures. Patient with elevated lactic acid levels. Patient requiring pressors of Levophed. Continue pressors to maintain MAP greater than 65 Severe anemia secondary to acute blood loss. Transfuse PRBCs as needed. Rectal bleeding. GI consultation pending. UTI. Cont antibiotics Cirrhosis with esophageal varices. GI consultation. Toxic metabolic/hepatic encephalopathy. Patient with elevated ammonia level on admission. Continue to treat with lactulose and underlying causes of sepsis. Acute on chronic kidney disease. Etiology likely secondary to acute kidney injury from ATN/sepsis/hypotension. Nephrology following. The high probability of a clinically significant, sudden or life threatening deterioration of the [hemodynamic and renal] system(s) required my full and direct attention, intervention and personal management. The aggregate critical care time was [32] minutes. This time is in addition to time spent performing reported procedures but includes the following: [x] Data Review and interpretation [x] Patient assessment and monitoring of vital signs [x] Documentation [x] Medication orders and management History Interval history: Patient remains hypotensive requiring pressors of Levophed. Hospitalist Physical - Constitutional Vitals: Temp Pulse Resp BP Pulse Ox 98 F 78 13 94/56 100 12/12/17 12:00 12/12/17 12:00 12/12/17 12:00 12/12/17 12:00 12/12/17 12:00 General appearance: Present: severe distress - EENT Eyes: Present: PERRL, EOM intact ENT: hearing intact, clear oral mucosa, dentition normal - Neck Neck: Present: supple, normal ROM - Respiratory Respiratory effort: normal Respiratory: bilateral: CTA - Cardiovascular Rhythm: regular Heart Sounds: Present: S1 & S2. Absent: gallop, rub - Extremities Extremities: no ischemia, No edema, Full ROM - Abdominal General gastrointestinal: soft, non-tender, non-distended, normal bowel sounds - Integumentary Integumentary: Present: clear, warm, dry - Neurologic Neurologic: CNII-XII intact, moves all extremities Results - Labs CBC & Chem 7: 12/12/17 07:00 12/12/17 03:41 Labs: Laboratory Last Values WBC 6.5 K/mm3 (4.5-11.0) 12/12/17 07:00 RBC 2.06 M/mm3 (3.65-5.03) L 12/12/17 07:00 Hgb 6.6 gm/dl (11.8-15.2) L 12/12/17 07:00 Hct 18.6 % (35.5-45.6) L* 12/12/17 07:00 MCV 90 fl (84-94) 12/12/17 07:00 MCH 32 pg (28-32) 12/12/17 07:00 MCHC 36 % (32-34) H 12/12/17 07:00 RDW 17.8 % (13.2-15.2) H 12/12/17 07:00 Plt Count 77 K/mm3 (140-440) L 12/12/17 07:00 Add Manual Diff Complete 12/12/17 03:41 Total Counted 100 12/12/17 03:41 Seg Neuts % (Manual) 91.0 % (40.0-70.0) H 12/12/17 03:41 Band Neutrophils % 1.0 % 12/12/17 03:41 Lymphocytes % (Manual) 3.0 % (13.4-35.0) L 12/12/17 03:41 Reactive Lymphs % (Man) 0 % 12/12/17 03:41 Monocytes % (Manual) 3.0 % (0.0-7.3) 12/12/17 03:41 Eosinophils % (Manual) 2.0 % (0.0-4.3) 12/12/17 03:41 Basophils % (Manual) 0 % (0.0-1.8) 12/12/17 03:41 Metamyelocytes % 0 % 12/12/17 03:41 Myelocytes % 0 % 12/12/17 03:41 Promyelocytes % 0 % 12/12/17 03:41 Blast Cells % 0 % 12/12/17 03:41 Nucleated RBC % Not Reportable 12/12/17 03:41 Seg Neutrophils # Man 5.5 K/mm3 (1.8-7.7) 12/12/17 03:41 Band Neutrophils # 0.1 K/mm3 12/12/17 03:41 Lymphocytes # (Manual) 0.2 K/mm3 (1.2-5.4) L 12/12/17 03:41 Abs React Lymphs (Man) 0.0 K/mm3 12/12/17 03:41 Monocytes # (Manual) 0.2 K/mm3 (0.0-0.8) 12/12/17 03:41 Eosinophils # (Manual) 0.1 K/mm3 (0.0-0.4) 12/12/17 03:41 Basophils # (Manual) 0.0 K/mm3 (0.0-0.1) 12/12/17 03:41 Metamyelocytes # 0.0 K/mm3 12/12/17 03:41 Myelocytes # 0.0 K/mm3 12/12/17 03:41 Promyelocytes # 0.0 K/mm3 12/12/17 03:41 Blast Cells # 0.0 K/mm3 12/12/17 03:41 WBC Morphology Not Reportable 12/12/17 03:41 Hypersegmented Neuts Not Reportable 12/12/17 03:41 Hyposegmented Neuts Not Reportable 12/12/17 03:41 Hypogranular Neuts Not Reportable 12/12/17 03:41 Smudge Cells Not Reportable 12/12/17 03:41 Toxic Granulation Not Reportable 12/12/17 03:41 Toxic Vacuolation Not Reportable 12/12/17 03:41 Dohle Bodies Not Reportable 12/12/17 03:41 Pelger-Huet Anomaly Not Reportable 12/12/17 03:41 Eriberto Rods Not Reportable 12/12/17 03:41 Platelet Estimate Appears decreased 12/12/17 03:41 Clumped Platelets Not Reportable 12/12/17 03:41 Plt Clumps, EDTA Not Reportable 12/12/17 03:41 Large Platelets Not Reportable 12/12/17 03:41 Giant Platelets Not Reportable 12/12/17 03:41 Platelet Satelliting Not Reportable 12/12/17 03:41 Plt Morphology Comment Not Reportable 12/12/17 03:41 RBC Morphology Not Reportable 12/12/17 03:41 Dimorphic RBCs Not Reportable 12/12/17 03:41 Polychromasia Not Reportable 12/12/17 03:41 Hypochromasia Not Reportable 12/12/17 03:41 Poikilocytosis 2+ 12/12/17 03:41 Anisocytosis 2+ 12/12/17 03:41 Microcytosis Not Reportable 12/12/17 03:41 Macrocytosis Not Reportable 12/12/17 03:41 Spherocytes Not Reportable 12/12/17 03:41 Pappenheimer Bodies Not Reportable 12/12/17 03:41 Sickle Cells Not Reportable 12/12/17 03:41 Target Cells Not Reportable 12/12/17 03:41 Tear Drop Cells Not Reportable 12/12/17 03:41 Ovalocytes Not Reportable 12/12/17 03:41 Helmet Cells Not Reportable 12/12/17 03:41 [place] Bodies Not Reportable 12/12/17 03:41 [place] Rings Not Reportable 12/12/17 03:41 [place] Cells Not Reportable 12/12/17 03:41 Bite Cells Not Reportable 12/12/17 03:41 Crenated Cell 3+ 12/12/17 03:41 Elliptocytes Not Reportable 12/12/17 03:41 Acanthocytes (Spur) Not Reportable 12/12/17 03:41 Rouleaux Not Reportable 12/12/17 03:41 Hemoglobin C Crystals Not Reportable 12/12/17 03:41 Schistocytes Not Reportable 12/12/17 03:41 Malaria parasites Not Reportable 12/12/17 03:41 [place] Bodies Not Reportable 12/12/17 03:41 Hem Pathologist Commnt No 12/12/17 03:41 PT 19.1 Sec. (12.2-14.9) H 12/11/17 04:34 INR 1.51 (0.87-1.13) H 12/11/17 04:34 APTT 45.7 Sec. (24.2-36.6) H 12/11/17 04:34 POC ABG pH 7.452 (7.35-7.45) H 12/12/17 09:13 POC ABG pCO2 22.2 (35-45) L 12/12/17 09:13 POC ABG pO2 75 (80-105) L 12/12/17 09:13 POC ABG HCO3 15.5 12/12/17 09:13 POC ABG Total CO2 16 12/12/17 09:13 POC ABG O2 Sat 96 12/12/17 09:13 POC ABG Base Excess -8 12/12/17 09:13 FiO2 21 % 12/12/17 09:13 Sodium 137 mmol/L (137-145) 12/12/17 03:41 Potassium 5.4 mmol/L (3.6-5.0) H 12/12/17 03:41 Chloride 105.1 mmol/L (98-107) 12/12/17 03:41 Carbon Dioxide 12 mmol/L (22-30) L 12/12/17 03:41 Anion Gap 25 mmol/L 12/12/17 03:41 BUN 47 mg/dL (9-20) H 12/12/17 03:41 Creatinine 4.5 mg/dL (0.8-1.5) H 12/12/17 03:41 Estimated GFR 16 ml/min 12/12/17 03:41 BUN/Creatinine Ratio 10 % 12/12/17 03:41 Glucose 103 mg/dL (75-100) H 12/12/17 03:41 POC Glucose 113 (70-105) H 12/11/17 04:08 Lactic Acid 3.70 mmol/L (0.7-2.0) H* 12/11/17 23:14 Calcium 8.0 mg/dL (8.4-10.2) L 12/12/17 03:41 Magnesium 1.80 mg/dL (1.7-2.3) 12/12/17 03:41 Total Bilirubin 3.60 mg/dL (0.1-1.2) H 12/12/17 03:41 AST 58 units/L (5-40) H 12/12/17 03:41 ALT 26 units/L (7-56) 12/12/17 03:41 Alkaline Phosphatase 75 units/L (35-129) 12/12/17 03:41 Ammonia 134.0 umol/L (25-60) H 12/10/17 23:14 Total Creatine Kinase 64 units/L (55-170) 12/10/17 23:14 NT-Pro-B Natriuret Pep 9558 pg/mL (0-900) H 12/10/17 23:14 Total Protein 5.9 g/dL (6.3-8.2) L 12/12/17 03:41 Albumin 2.5 g/dL (3.9-5) L 12/12/17 03:41 Albumin/Globulin Ratio 0.7 % 12/12/17 03:41 Lipase 7 units/L (13-60) L 12/10/17 23:14 TSH 3.900 mlU/mL (0.270-4.200) 12/10/17 23:14 Urine Color Yellow (Yellow) 12/10/17 23:05 Urine Turbidity Clear (Clear) 12/10/17 23:05 Urine pH 5.0 (5.0-7.0) 12/10/17 23:05 Ur Specific [place] 1.013 (1.003-1.030) 12/10/17 23:05 Urine Protein <15 mg/dl mg/dL (Negative) 12/10/17 23:05 Urine Glucose (UA) Neg mg/dL (Negative) 12/10/17 23:05 Urine Ketones Neg mg/dL (Negative) 12/10/17 23:05 Urine Blood Neg (Negative) 12/10/17 23:05 Urine Nitrite Neg (Negative) 12/10/17 23:05 Ur Reducing Substances Not Reportable 12/10/17 23:05 Urine Bilirubin Neg (Negative) 12/10/17 23:05 Urine Ictotest Not Reportable 12/10/17 23:05 Urine Urobilinogen < 2.0 mg/dL (<2.0) 12/10/17 23:05 Ur Leukocyte Esterase Sm (Negative) 12/10/17 23:05 Urine WBC (Auto) 10.0 /HPF (0.0-6.0) H 12/10/17 23:05 Urine RBC (Auto) 4.0 /HPF (0.0-6.0) 12/10/17 23:05 U Epithel Cells (Auto) < 1.0 /HPF (0-13.0) 12/10/17 23:05 Urine Mucus Few /HPF 12/10/17 23:05 Blood Type A NEGATIVE 12/11/17:23 Antibody Screen Negative 12/11/17:23 Crossmatch See Detail 12/11/17:23
--- NOTE | 2017-12-12 13:24 | XRay Report ---
AP ABDOMEN: HISTORY: Dobbhoff tube placement. The feeding tube terminates in the descending duodenum. The abdominal gas pattern is unremarkable. No masses or organomegaly is identified and there is no gross evidence of free air or fluid. No significant soft tissue calcifications are noted. TIPS shunt is noted. IMPRESSION: Unremarkable abdomen. The feeding tube terminates in the descending duodenum.
[2017-12-12] MEDS: LEVAQUIN 500MG/100ML 500 MG/100 ML BAG IV SCH (17:42)
[2017-12-12] MEDS: SODIUM BICARBONATE 150 MEQ in D5W 1,000 ML IV SCH (17:43)
--- NOTE | 2017-12-12 19:40 | Consultation ---
REFERRING PHYSICIAN: Delroy Vaughn M.D. INDICATION: 1. Liver disease. 2. Gastrointestinal bleed. HISTORY OF PRESENT ILLNESS: The patient is a 62-year-old male with a history of cirrhosis, now been seen by GI. The patient recently was admitted on 12/11/2017. The patient had presented with abdominal pain and general weakness. The patient reported has been coughing and having loose bloody bowel movements. The patient subsequently came and was found to be in sepsis and admitted and GI consulted. During the evaluation, the patient reportedly has had some bloody stools, though that is not corroborated by the staff. The patient denies any other specific GI complaints. PAST MEDICAL HISTORY: 1. Hypertension. 2. Liver disease with cirrhosis. 3. Seizure disorder. 4. Ascites. 5. Anemia. 6. GI bleed. PAST SURGICAL HISTORY: Toe amputation. MEDICATIONS: Include Midodrine 5 mg q.6h., lactulose 30 mg 3 times a day, Protonix, Rifaximin 550 mg b.i.d. ALLERGIES: ACETAZOLAMIDE and CODEINE. SOCIAL HISTORY: Denies recent alcohol or tobacco. FAMILY HISTORY: Negative for colon cancer. REVIEW OF SYSTEMS: GENERAL: Weakness. HEENT: Denies visual complaints. PULMONARY: No shortness of breath. No cough. No chest pain. GASTROINTESTINAL: Reports mild abdominal pain. All points of 13-point review of systems otherwise negative. PHYSICAL EXAMINATION: VITAL SIGNS: Temperature of 98.2, pulse 40, respirations 20, blood pressure 100/60. GENERAL: Fairly thin male, in no acute distress. HEENT: Pupils equal, round, reactive. PULMONARY: Clear. CARDIOVASCULAR: Regular rate and rhythm. ABDOMEN: Soft. SKIN: No rashes. LABORATORY DATA: Labs pertinent for white count 6.5, hemoglobin and hematocrit of 6.6 and 80.6, platelet count of 77. Chem-7, sodium of 137, potassium 5.4, chloride 105, CO2 12, BUN and creatinine of 47 and 4.5, AST and ALT of 58 and 26, total bilirubin of 3.6. ASSESSMENT AND PLAN: A 62-year-old male presents with signs of hypovolemic shock requiring pressor support and currently on Levophed. GI is consulted because of reported signs of rectal bleeding. I discussed this with the staff and they denied any black stools or signs of current bleeding as well as hematemesis. The patient also had an elevated ammonia level on admission. Management is noted below. PLAN: 1. Follow hematocrit and transfuse as needed. 2. Given no signs of bleeding, no indication for octreotide. 3. Agree with lactulose via NG tube and monitor mental status. 4. Sepsis. Management per primary team. 5. No plans for EGD at this time. 6. We will follow closely. JOB# [id number] CAB/NTS MTDD
--- NOTE | 2017-12-12 20:05 | Consultation ---
History of Present Illness - Reason for Consult Consult date: 12/12/17 anemia,low plt Requesting physician: TAMELA MARTINEZ - History of Present Illness Patient seen, resting in bed, records reviewed,patient with multiple medical problems, including ETOH abuse hx.see orders. will follow you. Past History Past Medical History: anemia Medications and Allergies Allergies Allergy/AdvReac Type Severity Reaction Status Date / Time acetazolamide Allergy Unknown Verified 06/13/17 10:58 codeine Allergy Rash Verified 06/13/17 10:57 Home Medications Medication Instructions Recorded Confirmed Last Taken Type Rifaximin [Xifaxan] 550 mg PO BID #60 tablet 06/29/17 12/10/17 Unknown Rx Lactulose [Constulose] 30 ml PO 4XD 12/11/17 12/11/17 Unknown History Pantoprazole [Protonix TAB] 40 mg PO DAILY 12/11/17 12/11/17 Unknown History Sodium Bicarbonate 650 mg PO BID 12/11/17 12/11/17 Unknown History Tamsulosin HCl [Flomax] 1 cap PO DAILY 12/11/17 12/11/17 Unknown History Zinc Sulfate 2 tab PO DAILY 12/11/17 12/11/17 Unknown History Active Meds: Active Medications Acetaminophen (Tylenol) 650 mg PO Q4H PRN PRN Reason: Fever >101 Albumin Human ([place] 25% (Albumin)) 25 gm IV Q12HR [facility] Last Admin: 12/12/17 10:16 Dose: 25 gm Norepinephrine (Levophed Drip 4 Mg/Ns 250 Ml) 4 mg in 250 mls @ 7.5 mls/hr IV TITR [facility]IVKA; Protocol Last Titration: 12/12/17 08:15 Dose: 0 mcg/min, 0 mls/hr Ceftriaxone Sodium (Rocephin/Ns 1 Gm/50 Ml) 1 gm in 50 mls @ 100 mls/hr IV Q24HR [facility]IVKA; Protocol Last Admin: 12/12/17 10:17 Dose: 100 mls/hr Sodium Bicarbonate 150 meq/ (Dextrose) 1,150 mls @ 125 mls/hr IV DIRECT [facility] Last Admin: 12/12/17 17:43 Dose: 75 mls/hr Levofloxacin/Dextrose (Levaquin 500mg/100ml) 500 mg in 100 mls @ 100 mls/hr IV Q48HR [facility]IVKA; Protocol Last Admin: 12/12/17 17:42 Dose: 100 mls/hr Lactulose (Cephulac) 20 gm PO Q6HR [facility] Last Admin: 12/12/17 17:44 Dose: 20 gm Midodrine (Proamatine) 2.5 mg PO TID@0800,1200,1600 [facility] Last Admin: 12/12/17 17:42 Dose: 2.5 mg Pantoprazole Sodium (Protonix) 40 mg IV QDAY [facility] Last Admin: 12/12/17 10:16 Dose: 40 mg Rifaximin (Xifaxan) 500 mg PO BID [facility] Last Admin: 12/12/17 12:00 Dose: Not Given Review of Systems Constitutional: fatigue Exam - Constitutional Vitals: Temp Pulse Resp BP Pulse Ox 98.7 F 71 13 89/55 100 12/12/17 16:04 12/12/17 16:04 12/12/17 16:04 12/12/17 16:04 12/12/17 16:04 General appearance: Present: mild distress - EENT Eyes: Present: PERRL ENT: hearing intact, clear oral mucosa - Neck Neck: Present: supple, normal ROM - Respiratory Respiratory: bilateral: diminished - Cardiovascular Heart Sounds: Present: S1 & S2. Absent: rub, click - Extremities Extremities: pulses symmetrical, No edema Peripheral Pulses: within normal limits - Abdominal General gastrointestinal: Present: soft, non-tender, non-distended, normal bowel sounds Male genitourinary: Present: deferred - Rectal Rectal Exam: deferred - Integumentary Integumentary: Present: clear, warm, dry - Musculoskeletal Musculoskeletal: gait normal, strength equal bilaterally - Psychiatric Psychiatric: appropriate mood/affect, intact judgment & insight - Neurologic Neurologic: CNII-XII intact, moves all extremities Results - Labs CBC & Chem 7: 12/12/17 07:00 12/12/17 03:41 Labs: Abnormal lab results 12/11/17 12/11/17 12/12/17 Range/Units 23:14 23:23 03:41 RBC 2.17 L (3.65-5.03) M/mm3 Hgb 7.0 L (11.8-15.2) gm/dl Hct 19.9 L* (35.5-45.6) % MCH 33 H (28-32) pg MCHC 35 H (32-34) % RDW 17.7 H (13.2-15.2) % Plt Count 62 L (140-440) K/mm3 Seg Neuts % (Manual) 91.0 H (40.0-70.0) % Lymphocytes % (Manual) 3.0 L (13.4-35.0) % Lymphocytes # (Manual) 0.2 L (1.2-5.4) K/mm3 POC ABG pH (7.35-7.45) POC ABG pCO2 (35-45) POC ABG pO2 (80-105) Potassium (3.6-5.0) mmol/L Carbon Dioxide (22-30) mmol/L BUN (9-20) mg/dL Creatinine (0.8-1.5) mg/dL Glucose (75-100) mg/dL Lactic Acid 3.70 H* (0.7-2.0) mmol/L Calcium (8.4-10.2) mg/dL Total Bilirubin (0.1-1.2) mg/dL AST (5-40) units/L Total Protein (6.3-8.2) g/dL Albumin (3.9-5) g/dL Crossmatch See Detail 12/12/17 12/12/17 12/12/17 Range/Units 03:41 07:00 09:13 RBC 2.06 L (3.65-5.03) M/mm3 Hgb 6.6 L (11.8-15.2) gm/dl Hct 18.6 L* (35.5-45.6) % MCH (28-32) pg MCHC 36 H (32-34) % RDW 17.8 H (13.2-15.2) % Plt Count 77 L (140-440) K/mm3 Seg Neuts % (Manual) (40.0-70.0) % Lymphocytes % (Manual) (13.4-35.0) % Lymphocytes # (Manual) (1.2-5.4) K/mm3 POC ABG pH 7.452 H (7.35-7.45) POC ABG pCO2 22.2 L (35-45) POC ABG pO2 75 L (80-105) Potassium 5.4 H (3.6-5.0) mmol/L Carbon Dioxide 12 L (22-30) mmol/L BUN 47 H (9-20) mg/dL Creatinine 4.5 H (0.8-1.5) mg/dL Glucose 103 H (75-100) mg/dL Lactic Acid (0.7-2.0) mmol/L Calcium 8.0 L (8.4-10.2) mg/dL Total Bilirubin 3.60 H (0.1-1.2) mg/dL AST 58 H (5-40) units/L Total Protein 5.9 L (6.3-8.2) g/dL Albumin 2.5 L (3.9-5) g/dL Crossmatch Assessment and Plan - Patient Problems (1) Acute hepatic encephalopathy Current Visit: Yes Status: Acute Plan to address problem: see orders. (2) Anemia Current Visit: Yes Status: Acute Plan to address problem: see orders.
[2017-12-12 20:16] LABS: Hematocrit 21.3 % (35.5-45.6); Hemoglobin 7.8 gm/dl (11.8-15.2); Mean Corpuscular HGB Conc 37 % (32-34); Mean Corpuscular Hemoglobin 33 pg (28-32); Mean Corpuscular Volume 89 fl (84-94); Red Cell Distribution Width 16.1 % (13.2-15.2)
[2017-12-12 20:20] LABS: Platelet Count 99 K/mm3 (140-440)
[2017-12-12 20:30] LABS: INR 1.79 (0.87-1.13)
[2017-12-12 20:31] LABS: Partial Thromboplastin Time 41.5 Sec. (24.2-36.6)
[2017-12-12 20:33] LABS: Bilirubin,Direct 1.6 mg/dL (0-0.2)
[2017-12-12 20:35] LABS: Erythrocyte Sedimentation Rate 18 mm/Hr (0-20)
[2017-12-12 20:49] LABS: Hepatitis A Antibody IgM Non-Reactive (NonReactive); Hepatitis B Core IgM Non-Reactive (NonReactive); Hepatitis B Surface Antigen Non-Reactive (Negative); Hepatitis C Virus Antibody Non-Reactive (NonReactive)
[2017-12-12 21:21] LABS: Basophils % (Manual) 0 % (0.0-1.8); Total Cells Counted 100
[2017-12-12 21:22] LABS: Burr Cells 1+; Hypochromasia 1+
[2017-12-12 21:23] LABS: Acanthocytes 1+; Large Platelets 1+; Platelet Estimate Appears Decreased
[2017-12-13] MEDS: LEVOPHED DRIP 4 MG/NS 250 ML 4 MG/250 ML BAG IV SCH (00:13)
[2017-12-13] MEDS: CEPHULAC PO SCH ×4 (00:30→18:39)
[2017-12-13 04:35] LABS: Basophils % (Auto) 0.5 % (0.0-1.8); Eosinophils # (Auto) 0.1 K/mm3 (0.0-0.4); Eosinophils % (Auto) 2.2 % (0.0-4.3); Hematocrit 20.8 % (35.5-45.6); Hemoglobin 7.4 gm/dl (11.8-15.2); Lymphocytes # (Auto) 0.8 K/mm3 (1.2-5.4); Lymphocytes % (Auto) 13.1 % (13.4-35.0); Mean Corpuscular HGB Conc 36 % (32-34); Mean Corpuscular Hemoglobin 32 pg (28-32); Mean Corpuscular Volume 89 fl (84-94); Monocytes # (Auto) 0.5 K/mm3 (0.0-0.8); Monocytes % (Auto) 7.9 % (0.0-7.3); Platelet Count 134 K/mm3 (140-440); Red Blood Count 2.32 M/mm3 (3.65-5.03); Red Cell Distribution Width 16.1 % (13.2-15.2)
[2017-12-13 04:55] LABS: Albumin 3.1 g/dL (3.9-5); Calcium 8.1 mg/dL (8.4-10.2)
[2017-12-13 09:10] LABS: INR 1.65 (0.87-1.13)
[2017-12-13] MEDS: ALBURX 25% (ALBUMIN) IV SCH ×2 (10:28→22:49)
[2017-12-13] MEDS: PROTONIX IV SCH (10:28)
[2017-12-13] MEDS: ROCEPHIN/NS 1 GM/50 ML 1 GM/50 ML BAG IV SCH (10:28)
[2017-12-13] MEDS: PROAMATINE PO SCH ×3 (10:29→22:44)
[2017-12-13] MEDS: XIFAXAN PO SCH ×3 (10:30→22:49)
--- NOTE | 2017-12-13 10:35 | Progress Note ---
Assessment and Plan Impression: * Nonoliguric CARMEN secondary to prerenal azotemia due to hypoperfusion ATN vs HRS * Hyperkalemia * sepsis * Severe anemia secondary to ABL * Rectal bleeding * Cirrhosis w/ esophageal varices * Metabolic acidosis * Hyperbilirubinemia * pyuria Plan: * Renal function is worse than baseline, but stable today * co2 is improved * likely has low crcl due to liver disease, but unsure if HD will change overall prognosis * continue bicarb gtt and iv albumin * vasopressors to keep map >65 * strict i/os, avoid nephrotoxins * daily lytes * no indication for founder and ceo at this time * empiric abx for SBP and UTI * Transfusion pRBC per primary team * Gastroenterology consultation needed * Medical management of electrolytes * Avoid potential nephrotoxic agents * Dose medications for renal function Subjective Date of service: 12/13/17 Principal diagnosis: 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, encephalopathy, sepsis, anemia Interval history: in bed, confused, no acute events Objective - Exam Narrative Exam: General: well-nourished, well-developed, no acute distress Head: Normocephalic, atraumatic Eyes: normal sclera ENT: Mucous membranes are pale and dry Neck: No neck stiffness, no cervical adenopathy Respiratory: Breath sounds equal bilaterally, no wheezing, rales, or rhonchi Cardio: S1 and S2 present, no murmurs, rubs, gallops, capillary refill is delayed Abdomen: Normoactive bowel sounds, soft abdomen, generalized tenderness to palpation present, no rigidity, no guarding or rebound tenderness Chest WALL/Back: No tenderness to palpation of the chest wall, no CVA tenderness with percussion Musc: No pitting edema Skin: No rash Neuro: no facial drooping, normal speech Psych: Normal affect - Vital Signs Vital signs: Vital Signs - 12hr 12/13/17 12/13/17 12/13/17 00:00 00:15 02:00 Temperature 98.6 F Pulse Rate [ 70 72 None] Respiratory 12 11 L Rate Blood Pressure 80/43 87/53 O2 Sat by Pulse 100 98 100 Oximetry 12/13/17 12/13/17 12/13/17 04:00 06:00 08:00 Temperature 99.0 F Pulse Rate [ None] Respiratory Rate Blood Pressure O2 Sat by Pulse 100 100 Oximetry - Lab 12/13/17 04:00 12/13/17 04:00 Most recent lab results Calcium 8.1 mg/dL (8.4-10.2) L 12/13/17 04:00 Magnesium 1.80 mg/dL (1.7-2.3) 12/12/17 03:41
--- NOTE | 2017-12-13 10:54 | Progress Note ---
Assessment and Plan Sepsis, possibly SBP Acute encephalopathy Severe anemia Lactic acidosis, multifactorial Cirrhosis with esophageal varices Rectal bleeding Coagulopathy Metabolic acidosis, multifactorial Respiratory alkalosis Nonoliguric CARMEN secondary to prerenal azotemia due to hypoperfusion ATN vs HRS Moderate protein calorie malnutrition - conservative volume management to prevent overt pulmonary edema - wean vasopressor support for MAP >/= 65mmHg - continue empiric AB's - continue Aspiration precautions - keep NPO for now, place small bowel feeding tube for medications - Resumed chronic home medications, including rifaximin and midodrine - continue Sepsis protocols - Avoid nephrotoxics and adjust all medications for GFR - follow GI consult - continue PPI therapy - follow RUQ USS (may need diagnostic tap) - IR for right thoracentesis. Fluid to be sent for pleural fluid analysis - Ceftriaxone to continue for possible SBP - Follow up cultures - Continue with lactulose to titrate to 2-3 bowel movements a day - SCDs for VTE prophylaxis in view of GIB and coagulopathy - Supportive transfusions - Nutrition consult - PT/OT consult - continue other care per attending / other consultants The high probability of a clinically significant, sudden or life threatening deterioration of the [multiple] system(s) required my full and direct attention , intervention and personal management. The aggregate critical care time was [35 ] minutes. This time is in addition to time spent performing reported procedures but includes the following: [x] Data Review and interpretation [x] Patient assessment and monitoring of vital signs [x] Documentation [x] Medication orders and management Subjective Date of service: 12/13/17 Principal diagnosis: CARMEN on CKD; Acute Encephalopathy; Sepsis Syndrome; Anemia Interval history: Patient is seen today for: CARMEN on CKD; Acute Encephalopathy; Sepsis Syndrome; Anemia Seen and examined at bedside; 24hour events reviewed; nursing and respiratory care staff consulted; no adverse overnight events reported to me; remains on levophed drip; no N/V/F/C; no gross bleeding; laying peacefully in bed Objective Vital Signs - 12hr 12/13/17 12/13/17 12/13/17 00:00 00:15 02:00 Temperature 98.6 F Pulse Rate [ 70 72 None] Respiratory 12 11 L Rate Blood Pressure 80/43 87/53 O2 Sat by Pulse 100 98 100 Oximetry 12/13/17 12/13/17 12/13/17 04:00 06:00 08:00 Temperature 99.0 F Pulse Rate [ None] Respiratory Rate Blood Pressure O2 Sat by Pulse 100 100 Oximetry Constitutional: appears uncomfortable, other (chronically ill looking, elderly AAM; normocephalic and atraumatic) Eyes: non-icteric ENT: oropharynx moist Neck: supple, no lymphadenopathy, no JVD, other (no thyromegaly) Effort: mildly labored Ascultation: Bilateral: diminished breath sounds, rhonchi Percussion: Bilateral: not dull Cardiovascular: regular rate and rhythm, other (S1,S2, no murmurms, gallops or rubs) Gastrointestinal: normoactive bowel sounds, soft, non-tender, other (distended; No HSM) Integumentary: rash Extremities: no cyanosis, no edema, pulses normal, no ischemia or petechiae Neurologic: non-focal exam (grossly), pupils equal and round, motor strength normal and, other (somnolent) Psychiatric: depressed CBC and BMP: 12/15/17 04:51 12/15/17 04:51 ABG, PT/INR, D-dimer: ABG POC ABG pH 7.452 (7.35-7.45) H 12/12/17 09:13 POC ABG pCO2 22.2 (35-45) L 12/12/17 09:13 POC ABG pO2 75 (80-105) L 12/12/17 09:13 POC ABG HCO3 15.5 12/12/17 09:13 POC ABG Total CO2 16 12/12/17 09:13 POC ABG O2 Sat 96 12/12/17 09:13 PT/INR, D-dimer PT 20.5 Sec. (12.2-14.9) H 12/13/17 08:45 INR 1.65 (0.87-1.13) H 12/13/17 08:45 D-Dimer 1215.06 ng/mlDDU (0-234) H 12/12/17 19:50 Abnormal lab findings: Abnormal Labs 12/10/17 12/10/17 12/10/17 13:14 13:14 23:05 RBC 2.31 L Hgb 7.3 L Hct 21.5 L MCH MCHC RDW 17.7 H Plt Count 61 L Lymph % (Auto) [place] % (Auto) Lymph # Seg Neutrophils % Seg Neuts % (Manual) 81.0 H Lymphocytes % (Manual) 11.0 L Lymphocytes # (Manual) 0.6 L PT INR APTT Fibrinogen D-Dimer POC ABG pH POC ABG pCO2 POC ABG pO2 Sodium 136 L Potassium 5.2 H Carbon Dioxide 15 L BUN 47 H Creatinine 5.2 H Glucose 127 H POC Glucose Lactic Acid Calcium Total Bilirubin 3.50 H Direct Bilirubin AST 71 H Ammonia Lactate Dehydrogenase NT-Pro-B Natriuret Pep Total Protein Albumin 2.6 L Lipase Vitamin B12 Urine WBC (Auto) 10.0 H Crossmatch 12/10/17 12/10/17 12/10/17 23:14 23:14 23:14 RBC Hgb Hct MCH MCHC RDW Plt Count Lymph % (Auto) [place] % (Auto) Lymph # Seg Neutrophils % Seg Neuts % (Manual) Lymphocytes % (Manual) Lymphocytes # (Manual) PT INR APTT Fibrinogen D-Dimer POC ABG pH POC ABG pCO2 POC ABG pO2 Sodium Potassium Carbon Dioxide BUN Creatinine Glucose POC Glucose Lactic Acid 2.40 H* Calcium Total Bilirubin Direct Bilirubin AST Ammonia 134.0 H Lactate Dehydrogenase NT-Pro-B Natriuret Pep 9558 H Total Protein Albumin Lipase Vitamin B12 Urine WBC (Auto) Crossmatch 12/10/17 12/11/17 12/11/17 23:14 00:29 03:33 RBC Hgb Hct MCH MCHC RDW Plt Count Lymph % (Auto) [place] % (Auto) Lymph # Seg Neutrophils % Seg Neuts % (Manual) Lymphocytes % (Manual) Lymphocytes # (Manual) PT INR APTT Fibrinogen D-Dimer POC ABG pH POC ABG pCO2 POC ABG pO2 Sodium Potassium Carbon Dioxide BUN Creatinine Glucose POC Glucose Lactic Acid 2.80 H* 3.00 H* Calcium Total Bilirubin Direct Bilirubin AST Ammonia Lactate Dehydrogenase NT-Pro-B Natriuret Pep Total Protein Albumin Lipase 7 L Vitamin B12 Urine WBC (Auto) Crossmatch 12/11/17 12/11/17 12/11/17 04:08 04:34 04:34 RBC Hgb Hct MCH MCHC RDW Plt Count Lymph % (Auto) [place] % (Auto) Lymph # Seg Neutrophils % Seg Neuts % (Manual) Lymphocytes % (Manual) Lymphocytes # (Manual) PT 19.1 H INR 1.51 H APTT 45.7 H Fibrinogen D-Dimer POC ABG pH POC ABG pCO2 POC ABG pO2 Sodium Potassium Carbon Dioxide BUN Creatinine Glucose POC Glucose 113 H Lactic Acid 3.10 H* Calcium Total Bilirubin Direct Bilirubin AST Ammonia Lactate Dehydrogenase NT-Pro-B Natriuret Pep Total Protein Albumin Lipase Vitamin B12 Urine WBC (Auto) Crossmatch 12/11/17 12/11/17 12/11/17 06:46 07:26 09:42 RBC Hgb Hct MCH MCHC RDW Plt Count Lymph % (Auto) [place] % (Auto) Lymph # Seg Neutrophils % Seg Neuts % (Manual) Lymphocytes % (Manual) Lymphocytes # (Manual) PT INR APTT Fibrinogen D-Dimer POC ABG pH POC ABG pCO2 POC ABG pO2 Sodium Potassium Carbon Dioxide BUN Creatinine Glucose POC Glucose Lactic Acid 2.70 H* 2.80 H* 2.90 H* Calcium Total Bilirubin Direct Bilirubin AST Ammonia Lactate Dehydrogenase NT-Pro-B Natriuret Pep Total Protein Albumin Lipase Vitamin B12 Urine WBC (Auto) Crossmatch 12/11/17 12/11/17 12/11/17 13:12 14:06 23:14 RBC Hgb Hct MCH MCHC RDW Plt Count Lymph % (Auto) [place] % (Auto) Lymph # Seg Neutrophils % Seg Neuts % (Manual) Lymphocytes % (Manual) Lymphocytes # (Manual) PT INR APTT Fibrinogen D-Dimer POC ABG pH POC ABG pCO2 POC ABG pO2 Sodium Potassium Carbon Dioxide BUN Creatinine Glucose POC Glucose Lactic Acid 3.10 H* 3.10 H* 3.70 H* Calcium Total Bilirubin Direct Bilirubin AST Ammonia Lactate Dehydrogenase NT-Pro-B Natriuret Pep Total Protein Albumin Lipase Vitamin B12 Urine WBC (Auto) Crossmatch 12/11/17 12/12/17 12/12/17 23:23 03:41 03:41 RBC 2.17 L Hgb 7.0 L Hct 19.9 L* MCH 33 H MCHC 35 H RDW 17.7 H Plt Count 62 L Lymph % (Auto) [place] % (Auto) Lymph # Seg Neutrophils % Seg Neuts % (Manual) 91.0 H Lymphocytes % (Manual) 3.0 L Lymphocytes # (Manual) 0.2 L PT INR APTT Fibrinogen D-Dimer POC ABG pH POC ABG pCO2 POC ABG pO2 Sodium Potassium 5.4 H Carbon Dioxide 12 L BUN 47 H Creatinine 4.5 H Glucose 103 H POC Glucose Lactic Acid Calcium 8.0 L Total Bilirubin 3.60 H Direct Bilirubin AST 58 H Ammonia Lactate Dehydrogenase NT-Pro-B Natriuret Pep Total Protein 5.9 L Albumin 2.5 L Lipase Vitamin B12 Urine WBC (Auto) Crossmatch See Detail 12/12/17 12/12/17 12/12/17 07:00 09:13 17:55 RBC 2.06 L Hgb 6.6 L Hct 18.6 L* MCH MCHC 36 H RDW 17.8 H Plt Count 77 L Lymph % (Auto) [place] % (Auto) Lymph # Seg Neutrophils % Seg Neuts % (Manual) Lymphocytes % (Manual) Lymphocytes # (Manual) PT INR APTT Fibrinogen D-Dimer POC ABG pH 7.452 H POC ABG pCO2 22.2 L POC ABG pO2 75 L Sodium Potassium Carbon Dioxide BUN Creatinine Glucose POC Glucose 119 H Lactic Acid Calcium Total Bilirubin Direct Bilirubin AST Ammonia Lactate Dehydrogenase NT-Pro-B Natriuret Pep Total Protein Albumin Lipase Vitamin B12 Urine WBC (Auto) Crossmatch 12/12/17 12/12/17 12/12/17 19:50 19:50 19:50 RBC 2.40 L Hgb 7.8 L Hct 21.3 L MCH 33 H MCHC 37 H RDW 16.1 H Plt Count 99 L Lymph % (Auto) [place] % (Auto) Lymph # Seg Neutrophils % Seg Neuts % (Manual) 87.0 H Lymphocytes % (Manual) 5.0 L Lymphocytes # (Manual) 0.3 L PT 21.9 H INR 1.79 H APTT 41.5 H Fibrinogen 128 L D-Dimer 1215.06 H POC ABG pH POC ABG pCO2 POC ABG pO2 Sodium Potassium Carbon Dioxide BUN Creatinine Glucose POC Glucose Lactic Acid Calcium Total Bilirubin 4.10 H Direct Bilirubin 1.6 H AST Ammonia Lactate Dehydrogenase NT-Pro-B Natriuret Pep Total Protein Albumin Lipase Vitamin B12 Urine WBC (Auto) Crossmatch 12/12/17 12/12/17 12/12/17 19:50 19:50 23:46 RBC Hgb Hct MCH MCHC RDW Plt Count Lymph % (Auto) [place] % (Auto) Lymph # Seg Neutrophils % Seg Neuts % (Manual) Lymphocytes % (Manual) Lymphocytes # (Manual) PT INR APTT Fibrinogen D-Dimer POC ABG pH POC ABG pCO2 POC ABG pO2 Sodium Potassium Carbon Dioxide BUN Creatinine Glucose POC Glucose 110 H Lactic Acid Calcium Total Bilirubin Direct Bilirubin AST Ammonia Lactate Dehydrogenase 213 H NT-Pro-B Natriuret Pep Total Protein Albumin Lipase Vitamin B12 1465 H Urine WBC (Auto) Crossmatch 12/13/17 12/13/17 12/13/17 04:00 04:00 05:12 RBC 2.32 L Hgb 7.4 L Hct 20.8 L MCH MCHC 36 H RDW 16.1 H Plt Count 134 L Lymph % (Auto) 13.1 L [place] % (Auto) 7.9 H Lymph # 0.8 L Seg Neutrophils % 76.3 H Seg Neuts % (Manual) Lymphocytes % (Manual) Lymphocytes # (Manual) PT INR APTT Fibrinogen D-Dimer POC ABG pH POC ABG pCO2 POC ABG pO2 Sodium Potassium Carbon Dioxide 21 L D BUN 48 H Creatinine 4.6 H Glucose 104 H POC Glucose 134 H Lactic Acid Calcium 8.1 L Total Bilirubin 4.70 H Direct Bilirubin AST 43 H Ammonia Lactate Dehydrogenase NT-Pro-B Natriuret Pep Total Protein 5.8 L Albumin 3.1 L Lipase Vitamin B12 Urine WBC (Auto) Crossmatch 12/13/17 08:45 RBC Hgb Hct MCH MCHC RDW Plt Count Lymph % (Auto) [place] % (Auto) Lymph # Seg Neutrophils % Seg Neuts % (Manual) Lymphocytes % (Manual) Lymphocytes # (Manual) PT 20.5 H INR 1.65 H APTT Fibrinogen D-Dimer POC ABG pH POC ABG pCO2 POC ABG pO2 Sodium Potassium Carbon Dioxide BUN Creatinine Glucose POC Glucose Lactic Acid Calcium Total Bilirubin Direct Bilirubin AST Ammonia Lactate Dehydrogenase NT-Pro-B Natriuret Pep Total Protein Albumin Lipase Vitamin B12 Urine WBC (Auto) Crossmatch Chest x-ray: image reviewed (small R>L pleural effusion and bilateral infiltrates : mild pulmonary edema) Allied health notes reviewed: nursing
--- NOTE | 2017-12-13 14:21 | Progress Note ---
Assessment and Plan Assessment and plan: Septic/hypovolemic shock. Will follow-up blood and urine cultures. Patient with elevated lactic acid levels. Patient requiring pressors of Levophed. Continue pressors to maintain MAP greater than 65 Severe anemia secondary to acute blood loss. Transfuse PRBCs as needed. Rectal bleeding. GI consultation pending. UTI. Cont antibiotics Cirrhosis with esophageal varices. GI consultation. Toxic metabolic/hepatic encephalopathy. Patient with elevated ammonia level on admission. Continue to treat with lactulose and underlying causes of sepsis. Recheck ammonia level. Acute on chronic kidney disease. Etiology likely secondary to acute kidney injury from ATN/sepsis/hypotension. Nephrology following. The high probability of a clinically significant, sudden or life threatening deterioration of the [hemodynamic and renal] system(s) required my full and direct attention, intervention and personal management. The aggregate critical care time was [31] minutes. This time is in addition to time spent performing reported procedures but includes the following: [x] Data Review and interpretation [x] Patient assessment and monitoring of vital signs [x] Documentation [x] Medication orders and management History Interval history: Patient remains hypotensive requiring pressors of Levophed. Hospitalist Physical - Constitutional Vitals: Temp Pulse Resp BP Pulse Ox 98.4 F 72 11 L 87/53 100 12/13/17 12:00 12/13/17 00:15 12/13/17 00:15 12/13/17 00:15 12/13/17 06:00 General appearance: Present: mild distress - EENT Eyes: Present: PERRL, EOM intact ENT: hearing intact, clear oral mucosa, dentition normal - Neck Neck: Present: supple, normal ROM - Respiratory Respiratory effort: normal Respiratory: bilateral: CTA - Cardiovascular Rhythm: regular Heart Sounds: Present: S1 & S2. Absent: gallop, rub - Extremities Extremities: no ischemia, No edema, Full ROM - Abdominal General gastrointestinal: soft, non-tender, non-distended, normal bowel sounds - Integumentary Integumentary: Present: clear, warm, dry - Neurologic Neurologic: CNII-XII intact, moves all extremities Results - Labs CBC & Chem 7: 12/13/17 04:00 12/13/17 04:00 Labs: Laboratory Last Values WBC 5.9 K/mm3 (4.5-11.0) 12/13/17 04:00 RBC 2.32 M/mm3 (3.65-5.03) L 12/13/17 04:00 Hgb 7.4 gm/dl (11.8-15.2) L 12/13/17 04:00 Hct 20.8 % (35.5-45.6) L 12/13/17 04:00 MCV 89 fl (84-94) 12/13/17 04:00 MCH 32 pg (28-32) 12/13/17 04:00 MCHC 36 % (32-34) H 12/13/17 04:00 RDW 16.1 % (13.2-15.2) H 12/13/17 04:00 Plt Count 134 K/mm3 (140-440) L 12/13/17 04:00 Lymph % (Auto) 13.1 % (13.4-35.0) L 12/13/17 04:00 [place] % (Auto) 7.9 % (0.0-7.3) H 12/13/17 04:00 Eos % (Auto) 2.2 % (0.0-4.3) 12/13/17 04:00 Baso % (Auto) 0.5 % (0.0-1.8) 12/13/17 04:00 Lymph # 0.8 K/mm3 (1.2-5.4) L 12/13/17 04:00 [place] # 0.5 K/mm3 (0.0-0.8) 12/13/17 04:00 Eos # 0.1 K/mm3 (0.0-0.4) 12/13/17 04:00 Baso # 0.0 K/mm3 (0.0-0.1) 12/13/17 04:00 Add Manual Diff Complete 12/12/17 19:50 Total Counted 100 12/12/17 19:50 Seg Neutrophils % 76.3 % (40.0-70.0) H 12/13/17 04:00 Seg Neuts % (Manual) 87.0 % (40.0-70.0) H 12/12/17 19:50 Band Neutrophils % 0 % 12/12/17 19:50 Lymphocytes % (Manual) 5.0 % (13.4-35.0) L 12/12/17 19:50 Reactive Lymphs % (Man) 0 % 12/12/17 19:50 Monocytes % (Manual) 6.0 % (0.0-7.3) 12/12/17 19:50 Eosinophils % (Manual) 2.0 % (0.0-4.3) 12/12/17 19:50 Basophils % (Manual) 0 % (0.0-1.8) 12/12/17 19:50 Metamyelocytes % 0 % 12/12/17 19:50 Myelocytes % 0 % 12/12/17 19:50 Promyelocytes % 0 % 12/12/17 19:50 Blast Cells % 0 % 12/12/17 19:50 Nucleated RBC % Not Reportable 12/12/17 19:50 Seg Neutrophils # 4.5 K/mm3 (1.8-7.7) 12/13/17 04:00 Seg Neutrophils # Man 4.9 K/mm3 (1.8-7.7) 12/12/17 19:50 Band Neutrophils # 0.0 K/mm3 12/12/17 19:50 Lymphocytes # (Manual) 0.3 K/mm3 (1.2-5.4) L 12/12/17 19:50 Abs React Lymphs (Man) 0.0 K/mm3 12/12/17 19:50 Monocytes # (Manual) 0.3 K/mm3 (0.0-0.8) 12/12/17 19:50 Eosinophils # (Manual) 0.1 K/mm3 (0.0-0.4) 12/12/17 19:50 Basophils # (Manual) 0.0 K/mm3 (0.0-0.1) 12/12/17 19:50 Metamyelocytes # 0.0 K/mm3 12/12/17 19:50 Myelocytes # 0.0 K/mm3 12/12/17 19:50 Promyelocytes # 0.0 K/mm3 12/12/17 19:50 Blast Cells # 0.0 K/mm3 12/12/17 19:50 WBC Morphology Not Reportable 12/12/17 19:50 Hypersegmented Neuts Not Reportable 12/12/17 19:50 Hyposegmented Neuts Not Reportable 12/12/17 19:50 Hypogranular Neuts Not Reportable 12/12/17 19:50 Smudge Cells Not Reportable 12/12/17 19:50 Toxic Granulation Not Reportable 12/12/17 19:50 Toxic Vacuolation Not Reportable 12/12/17 19:50 Dohle Bodies Not Reportable 12/12/17 19:50 Pelger-Huet Anomaly Not Reportable 12/12/17 19:50 Eriberto Rods Not Reportable 12/12/17 19:50 Platelet Estimate Appears decreased 12/12/17 19:50 Clumped Platelets Not Reportable 12/12/17 19:50 Plt Clumps, EDTA Not Reportable 12/12/17 19:50 Large Platelets 1+ 12/12/17 19:50 Giant Platelets Not Reportable 12/12/17 19:50 Platelet Satelliting Not Reportable 12/12/17 19:50 Plt Morphology Comment Not Reportable 12/12/17 19:50 RBC Morphology Not Reportable 12/12/17 19:50 Dimorphic RBCs Not Reportable 12/12/17 19:50 Polychromasia Not Reportable 12/12/17 19:50 Hypochromasia 1+ 12/12/17 19:50 Poikilocytosis Not Reportable 12/12/17 19:50 Anisocytosis Not Reportable 12/12/17 19:50 Microcytosis Not Reportable 12/12/17 19:50 Macrocytosis Not Reportable 12/12/17 19:50 Spherocytes Not Reportable 12/12/17 19:50 Pappenheimer Bodies Not Reportable 12/12/17 19:50 Sickle Cells Not Reportable 12/12/17 19:50 Target Cells Not Reportable 12/12/17 19:50 Tear Drop Cells Not Reportable 12/12/17 19:50 Ovalocytes Not Reportable 12/12/17 19:50 Helmet Cells Not Reportable 12/12/17 19:50 [place] Bodies Not Reportable 12/12/17 19:50 Umpire Rings Not Reportable 12/12/17 19:50 [place]ad Cells 1+ 12/12/17 19:50 Bite Cells Not Reportable 12/12/17 19:50 Crenated Cell Not Reportable 12/12/17 19:50 Elliptocytes Not Reportable 12/12/17 19:50 Acanthocytes (Spur) 1+ 12/12/17 19:50 Rouleaux Not Reportable 12/12/17 19:50 Hemoglobin C Crystals Not Reportable 12/12/17 19:50 Schistocytes Not Reportable 12/12/17 19:50 Malaria parasites Not Reportable 12/12/17 19:50 ESR 18 mm/Hr (0-20) 12/12/17 19:50 Lyndon Bodies Not Reportable 12/12/17 19:50 Hem Pathologist Commnt No 12/12/17 19:50 PT 20.5 Sec. (12.2-14.9) H 12/13/17 08:45 INR 1.65 (0.87-1.13) H 12/13/17 08:45 APTT 41.5 Sec. (24.2-36.6) H 12/12/17 19:50 Fibrinogen 128 mg/dl (211-480) L 12/12/17 19:50 D-Dimer 1215.06 ng/mlDDU (0-234) H 12/12/17 19:50 POC ABG pH 7.452 (7.35-7.45) H 12/12/17 09:13 POC ABG pCO2 22.2 (35-45) L 12/12/17 09:13 POC ABG pO2 75 (80-105) L 12/12/17 09:13 POC ABG HCO3 15.5 12/12/17 09:13 POC ABG Total CO2 16 12/12/17 09:13 POC ABG O2 Sat 96 12/12/17 09:13 POC ABG Base Excess -8 12/12/17 09:13 FiO2 21 % 12/12/17 09:13 Sodium 141 mmol/L (137-145) 12/13/17 04:00 Potassium 4.0 mmol/L (3.6-5.0) D 12/13/17 04:00 Chloride 100.6 mmol/L (98-107) 12/13/17 04:00 Carbon Dioxide 21 mmol/L (22-30) L D 12/13/17 04:00 Anion Gap 23 mmol/L 12/13/17 04:00 BUN 48 mg/dL (9-20) H 12/13/17 04:00 Creatinine 4.6 mg/dL (0.8-1.5) H 12/13/17 04:00 Estimated GFR 16 ml/min 12/13/17 04:00 BUN/Creatinine Ratio 10 % 12/13/17 04:00 Glucose 104 mg/dL (75-100) H 12/13/17 04:00 POC Glucose 112 (70-105) H 12/13/17 12:25 Lactic Acid 3.70 mmol/L (0.7-2.0) H* 12/11/17 23:14 Calcium 8.1 mg/dL (8.4-10.2) L 12/13/17 04:00 Magnesium 1.80 mg/dL (1.7-2.3) 12/12/17 03:41 Total Bilirubin 4.70 mg/dL (0.1-1.2) H 12/13/17 04:00 Direct Bilirubin 1.6 mg/dL (0-0.2) H 12/12/17 19:50 Indirect Bilirubin 2.5 mg/dL 12/12/17 19:50 AST 43 units/L (5-40) H 12/13/17 04:00 ALT 19 units/L (7-56) 12/13/17 04:00 Alkaline Phosphatase 56 units/L (35-129) 12/13/17 04:00 Ammonia 134.0 umol/L (25-60) H 12/10/17 23:14 Lactate Dehydrogenase 213 units/L (91-180) H 12/12/17 19:50 Total Creatine Kinase 64 units/L (55-170) 12/10/17 23:14 NT-Pro-B Natriuret Pep 9558 pg/mL (0-900) H 12/10/17 23:14 Total Protein 5.8 g/dL (6.3-8.2) L 12/13/17 04:00 Albumin 3.1 g/dL (3.9-5) L 12/13/17 04:00 Albumin/Globulin Ratio 1.1 % 12/13/17 04:00 Lipase 7 units/L (13-60) L 12/10/17 23:14 Vitamin B12 1465 pg/mL (211-911) H 12/12/17 19:50 Folate 14.04 ng/mL (7.3-26.0) 12/12/17 19:50 TSH 3.900 mlU/mL (0.270-4.200) 12/10/17 23:14 Urine Color Yellow (Yellow) 12/10/17 23:05 Urine Turbidity Clear (Clear) 12/10/17 23:05 Urine pH 5.0 (5.0-7.0) 12/10/17 23:05 Ur Specific [place] 1.013 (1.003-1.030) 12/10/17 23:05 Urine Protein <15 mg/dl mg/dL (Negative) 12/10/17 23:05 Urine Glucose (UA) Neg mg/dL (Negative) 12/10/17 23:05 Urine Ketones Neg mg/dL (Negative) 12/10/17 23:05 Urine Blood Neg (Negative) 12/10/17 23:05 Urine Nitrite Neg (Negative) 12/10/17 23:05 Ur Reducing Substances Not Reportable 12/10/17 23:05 Urine Bilirubin Neg (Negative) 12/10/17 23:05 Urine Ictotest Not Reportable 12/10/17 23:05 Urine Urobilinogen < 2.0 mg/dL (<2.0) 12/10/17 23:05 Ur Leukocyte Esterase Sm (Negative) 12/10/17 23:05 Urine WBC (Auto) 10.0 /HPF (0.0-6.0) H 12/10/17 23:05 Urine RBC (Auto) 4.0 /HPF (0.0-6.0) 12/10/17 23:05 U Epithel Cells (Auto) < 1.0 /HPF (0-13.0) 12/10/17 23:05 Urine Mucus Few /HPF 12/10/17 23:05 Hepatitis A IgM Ab Non-reactive (NonReactive) 12/12/17 19:50 Hep Bs Antigen Non-reactive (Negative) 12/12/17 19:50 Hep B Core IgM Ab Non-reactive (NonReactive) 12/12/17 19:50 Hepatitis C Antibody Non-reactive (NonReactive) 12/12/17 19:50 Blood Type A NEGATIVE 12/11/17 23:23 Antibody Screen Negative 12/11/17 23:23 Direct Antiglob Test Negative 12/12/17 20:41 JOANNE, Poly Interpret Negative 12/12/17 20:41 Crossmatch See Detail 12/11/17 23:23
[2017-12-13] MEDS: SODIUM BICARBONATE 150 MEQ in D5W 1,000 ML IV SCH (16:21)
--- NOTE | 2017-12-13 16:38 | Gastroenterology Progress Note ---
Assessment and Plan Liver: pt h/o varices now with anemia - pt w/o signs active bleed and none per staff since admission - follow h/h and co-ag - if any signs bleeding would start Octreotide - no plans to scope at this time - will follow 2. Liver; pt w/ cirrhosis and encephalopathy w/ sepsis - pt mental status unchanged - continue Lactulose with antibiotics and Albumin - check ammonia in am - follow closely Subjective Date of service: 12/13/17 Principal diagnosis: CARMEN on CKD; Acute Encephalopathy; Sepsis Syndrome; Anemia Interval history: - no change overnight per staff. No signs bleed. Patient mental status unchanged Objective - Constitutional Vitals: Temp Pulse Resp BP Pulse Ox 98.4 F 72 11 L 87/53 100 12/13/17 12:00 12/13/17 00:15 12/13/17 00:15 12/13/17 00:15 12/13/17 06:00 General appearance: no acute distress - EENT Eyes: PERRL - Respiratory Respiratory: bilateral: CTA - Cardiovascular Rhythm: regular Heart Sounds: Present: S1 & S2 - Gastrointestinal General gastrointestinal: Present: soft, non-tender, non-distended - Labs CBC & Chem 7: 12/13/17 04:00 12/13/17 04:00 Labs: Laboratory Results - last 24 hr 12/11/17 12/12/17 12/12/17 23:23 17:55 19:50 WBC 5.6 RBC 2.40 L Hgb 7.8 L Hct 21.3 L MCV 89 MCH 33 H MCHC 37 H RDW 16.1 H Plt Count 99 L Lymph % (Auto) [place] % (Auto) Eos % (Auto) Baso % (Auto) Lymph # [place] # Eos # Baso # Add Manual Diff Complete Total Counted 100 Seg Neutrophils % Seg Neuts % (Manual) 87.0 H Band Neutrophils % 0 Lymphocytes % (Manual) 5.0 L Reactive Lymphs % (Man) 0 Monocytes % (Manual) 6.0 Eosinophils % (Manual) 2.0 Basophils % (Manual) 0 Metamyelocytes % 0 Myelocytes % 0 Promyelocytes % 0 Blast Cells % 0 Nucleated RBC % Not Reportable Seg Neutrophils # Seg Neutrophils # Man 4.9 Band Neutrophils # 0.0 Lymphocytes # (Manual) 0.3 L Abs React Lymphs (Man) 0.0 Monocytes # (Manual) 0.3 Eosinophils # (Manual) 0.1 Basophils # (Manual) 0.0 Metamyelocytes # 0.0 Myelocytes # 0.0 Promyelocytes # 0.0 Blast Cells # 0.0 WBC Morphology Not Reportable Hypersegmented Neuts Not Reportable Hyposegmented Neuts Not Reportable Hypogranular Neuts Not Reportable Smudge Cells Not Reportable Toxic Granulation Not Reportable Toxic Vacuolation Not Reportable Dohle Bodies Not Reportable Pelger-Huet Anomaly Not Reportable Eriberto Rods Not Reportable Platelet Estimate Appears decreased Clumped Platelets Not Reportable Plt Clumps, EDTA Not Reportable Large Platelets 1+ Giant Platelets Not Reportable Platelet Satelliting Not Reportable Plt Morphology Comment Not Reportable RBC Morphology Not Reportable Dimorphic RBCs Not Reportable Polychromasia Not Reportable Hypochromasia 1+ Poikilocytosis Not Reportable Anisocytosis Not Reportable Microcytosis Not Reportable Macrocytosis Not Reportable Spherocytes Not Reportable Pappenheimer Bodies Not Reportable Sickle Cells Not Reportable Target Cells Not Reportable Tear Drop Cells Not Reportable Ovalocytes Not Reportable Helmet Cells Not Reportable [place] Bodies Not Reportable [place] Rings Not Reportable [place] Cells 1+ Bite Cells Not Reportable Crenated Cell Not Reportable Elliptocytes Not Reportable Acanthocytes (Spur) 1+ Rouleaux Not Reportable Hemoglobin C Crystals Not Reportable Schistocytes Not Reportable Malaria parasites Not Reportable ESR 18 [place] Bodies Not Reportable Hem Pathologist Commnt No PT INR APTT Fibrinogen D-Dimer Sodium Potassium Chloride Carbon Dioxide Anion Gap BUN Creatinine Estimated GFR BUN/Creatinine Ratio Glucose POC Glucose 119 H Lactic Acid Calcium Total Bilirubin Direct Bilirubin Indirect Bilirubin AST ALT Alkaline Phosphatase Ammonia Lactate Dehydrogenase C-Reactive Protein Total Protein Albumin Albumin/Globulin Ratio Vitamin B12 Folate Hepatitis A IgM Ab Hep Bs Antigen Hep B Core IgM Ab Hepatitis C Antibody Blood Type A NEGATIVE Antibody Screen Negative Direct Antiglob Test JOANNE, Poly Interpret Crossmatch See Detail 12/12/17 12/12/17 12/12/17 19:50 19:50 19:50 WBC RBC Hgb Hct MCV MCH MCHC RDW Plt Count Lymph % (Auto) [place] % (Auto) Eos % (Auto) Baso % (Auto) Lymph # [place] # Eos # Baso # Add Manual Diff Total Counted Seg Neutrophils % Seg Neuts % (Manual) Band Neutrophils % Lymphocytes % (Manual) Reactive Lymphs % (Man) Monocytes % (Manual) Eosinophils % (Manual) Basophils % (Manual) Metamyelocytes % Myelocytes % Promyelocytes % Blast Cells % Nucleated RBC % Seg Neutrophils # Seg Neutrophils # Man Band Neutrophils # Lymphocytes # (Manual) Abs React Lymphs (Man) Monocytes # (Manual) Eosinophils # (Manual) Basophils # (Manual) Metamyelocytes # Myelocytes # Promyelocytes # Blast Cells # WBC Morphology Hypersegmented Neuts Hyposegmented Neuts Hypogranular Neuts Smudge Cells Toxic Granulation Toxic Vacuolation Dohle Bodies Pelger-Huet Anomaly Eriberto Rods Platelet Estimate Clumped Platelets Plt Clumps, EDTA Large Platelets Giant Platelets Platelet Satelliting Plt Morphology Comment RBC Morphology Dimorphic RBCs Polychromasia Hypochromasia Poikilocytosis Anisocytosis Microcytosis Macrocytosis Spherocytes Pappenheimer Bodies Sickle Cells Target Cells Tear Drop Cells Ovalocytes Helmet Cells [place] Bodies [place] Rings [place] Cells Bite Cells Crenated Cell Elliptocytes Acanthocytes (Spur) Rouleaux Hemoglobin C Crystals Schistocytes Malaria parasites ESR Lyndon Bodies Hem Pathologist Commnt PT 21.9 H INR 1.79 H APTT 41.5 H Fibrinogen 128 L D-Dimer 1215.06 H Sodium Potassium Chloride Carbon Dioxide Anion Gap BUN Creatinine Estimated GFR BUN/Creatinine Ratio Glucose POC Glucose Lactic Acid Calcium Total Bilirubin 4.10 H Direct Bilirubin 1.6 H Indirect Bilirubin 2.5 AST ALT Alkaline Phosphatase Ammonia Lactate Dehydrogenase 213 H C-Reactive Protein Total Protein Albumin Albumin/Globulin Ratio Vitamin B12 Folate Hepatitis A IgM Ab Hep Bs Antigen Hep B Core IgM Ab Hepatitis C Antibody Blood Type Antibody Screen Direct Antiglob Test JOANNE, Poly Interpret Crossmatch 12/12/17 12/12/17 12/12/17 19:50 19:50 19:50 WBC RBC Hgb Hct MCV MCH MCHC RDW Plt Count Lymph % (Auto) [place] % (Auto) Eos % (Auto) Baso % (Auto) Lymph # [place] # Eos # Baso # Add Manual Diff Total Counted Seg Neutrophils % Seg Neuts % (Manual) Band Neutrophils % Lymphocytes % (Manual) Reactive Lymphs % (Man) Monocytes % (Manual) Eosinophils % (Manual) Basophils % (Manual) Metamyelocytes % Myelocytes % Promyelocytes % Blast Cells % Nucleated RBC % Seg Neutrophils # Seg Neutrophils # Man Band Neutrophils # Lymphocytes # (Manual) Abs React Lymphs (Man) Monocytes # (Manual) Eosinophils # (Manual) Basophils # (Manual) Metamyelocytes # Myelocytes # Promyelocytes # Blast Cells # WBC Morphology Hypersegmented Neuts Hyposegmented Neuts Hypogranular Neuts Smudge Cells Toxic Granulation Toxic Vacuolation Dohle Bodies Pelger-Huet Anomaly Eriberto Rods Platelet Estimate Clumped Platelets Plt Clumps, EDTA Large Platelets Giant Platelets Platelet Satelliting Plt Morphology Comment RBC Morphology Dimorphic RBCs Polychromasia Hypochromasia Poikilocytosis Anisocytosis Microcytosis Macrocytosis Spherocytes Pappenheimer Bodies Sickle Cells Target Cells Tear Drop Cells Ovalocytes Helmet Cells [place] Bodies [place] Rings [place] Cells Bite Cells Crenated Cell Elliptocytes Acanthocytes (Spur) Rouleaux Hemoglobin C Crystals Schistocytes Malaria parasites ESR [place] Bodies Hem Pathologist Commnt PT INR APTT Fibrinogen D-Dimer Sodium Potassium Chloride Carbon Dioxide Anion Gap BUN Creatinine Estimated GFR BUN/Creatinine Ratio Glucose POC Glucose Lactic Acid Calcium Total Bilirubin Direct Bilirubin Indirect Bilirubin AST ALT Alkaline Phosphatase Ammonia Lactate Dehydrogenase C-Reactive Protein Total Protein Albumin Albumin/Globulin Ratio Vitamin B12 1465 H Folate 14.04 Hepatitis A IgM Ab Non-reactive Hep Bs Antigen Non-reactive Hep B Core IgM Ab Non-reactive Hepatitis C Antibody Non-reactive Blood Type Antibody Screen Direct Antiglob Test JOANNE, Poly Interpret Crossmatch 12/12/17 12/12/17 12/13/17 20:41 23:46 04:00 WBC 5.9 RBC 2.32 L Hgb 7.4 L Hct 20.8 L MCV 89 MCH 32 MCHC 36 H RDW 16.1 H Plt Count 134 L Lymph % (Auto) 13.1 L [place] % (Auto) 7.9 H Eos % (Auto) 2.2 Baso % (Auto) 0.5 Lymph # 0.8 L [place] # 0.5 Eos # 0.1 Baso # 0.0 Add Manual Diff Total Counted Seg Neutrophils % 76.3 H Seg Neuts % (Manual) Band Neutrophils % Lymphocytes % (Manual) Reactive Lymphs % (Man) Monocytes % (Manual) Eosinophils % (Manual) Basophils % (Manual) Metamyelocytes % Myelocytes % Promyelocytes % Blast Cells % Nucleated RBC % Seg Neutrophils # 4.5 Seg Neutrophils # Man Band Neutrophils # Lymphocytes # (Manual) Abs React Lymphs (Man) Monocytes # (Manual) Eosinophils # (Manual) Basophils # (Manual) Metamyelocytes # Myelocytes # Promyelocytes # Blast Cells # WBC Morphology Hypersegmented Neuts Hyposegmented Neuts Hypogranular Neuts Smudge Cells Toxic Granulation Toxic Vacuolation Dohle Bodies Pelger-Huet Anomaly Eriberto Rods Platelet Estimate Clumped Platelets Plt Clumps, EDTA Large Platelets Giant Platelets Platelet Satelliting Plt Morphology Comment RBC Morphology Dimorphic RBCs Polychromasia Hypochromasia Poikilocytosis Anisocytosis Microcytosis Macrocytosis Spherocytes Pappenheimer Bodies Sickle Cells Target Cells Tear Drop Cells Ovalocytes Helmet Cells [place] Bodies [place] Rings [place] Cells Bite Cells Crenated Cell Elliptocytes Acanthocytes (Spur) Rouleaux Hemoglobin C Crystals Schistocytes Malaria parasites ESR [place] Bodies Hem Pathologist Commnt PT INR APTT Fibrinogen D-Dimer Sodium Potassium Chloride Carbon Dioxide Anion Gap BUN Creatinine Estimated GFR BUN/Creatinine Ratio Glucose POC Glucose 110 H Lactic Acid Calcium Total Bilirubin Direct Bilirubin Indirect Bilirubin AST ALT Alkaline Phosphatase Ammonia Lactate Dehydrogenase C-Reactive Protein Total Protein Albumin Albumin/Globulin Ratio Vitamin B12 Folate Hepatitis A IgM Ab Hep Bs Antigen Hep B Core IgM Ab Hepatitis C Antibody Blood Type Antibody Screen Direct Antiglob Test Negative JOANNE, Poly Interpret Negative Crossmatch 12/13/17 12/13/17 12/13/17 04:00 05:12 08:45 WBC RBC Hgb Hct MCV MCH MCHC RDW Plt Count Lymph % (Auto) [place] % (Auto) Eos % (Auto) Baso % (Auto) Lymph # [place] # Eos # Baso # Add Manual Diff Total Counted Seg Neutrophils % Seg Neuts % (Manual) Band Neutrophils % Lymphocytes % (Manual) Reactive Lymphs % (Man) Monocytes % (Manual) Eosinophils % (Manual) Basophils % (Manual) Metamyelocytes % Myelocytes % Promyelocytes % Blast Cells % Nucleated RBC % Seg Neutrophils # Seg Neutrophils # Man Band Neutrophils # Lymphocytes # (Manual) Abs React Lymphs (Man) Monocytes # (Manual) Eosinophils # (Manual) Basophils # (Manual) Metamyelocytes # Myelocytes # Promyelocytes # Blast Cells # WBC Morphology Hypersegmented Neuts Hyposegmented Neuts Hypogranular Neuts Smudge Cells Toxic Granulation Toxic Vacuolation Dohle Bodies Pelger-Huet Anomaly Eriberto Rods Platelet Estimate Clumped Platelets Plt Clumps, EDTA Large Platelets Giant Platelets Platelet Satelliting Plt Morphology Comment RBC Morphology Dimorphic RBCs Polychromasia Hypochromasia Poikilocytosis Anisocytosis Microcytosis Macrocytosis Spherocytes Pappenheimer Bodies Sickle Cells Target Cells Tear Drop Cells Ovalocytes Helmet Cells [place] Bodies [place] Rings [place] Cells Bite Cells Crenated Cell Elliptocytes Acanthocytes (Spur) Rouleaux Hemoglobin C Crystals Schistocytes Malaria parasites ESR Lyndon Bodies Hem Pathologist Commnt PT 20.5 H INR 1.65 H APTT Fibrinogen D-Dimer Sodium 141 Potassium 4.0 D Chloride 100.6 Carbon Dioxide 21 L D Anion Gap 23 BUN 48 H Creatinine 4.6 H Estimated GFR 16 BUN/Creatinine Ratio 10 Glucose 104 H POC Glucose 134 H Lactic Acid Calcium 8.1 L Total Bilirubin 4.70 H Direct Bilirubin Indirect Bilirubin AST 43 H ALT 19 Alkaline Phosphatase 56 Ammonia Lactate Dehydrogenase C-Reactive Protein Total Protein 5.8 L Albumin 3.1 L Albumin/Globulin Ratio 1.1 Vitamin B12 Folate Hepatitis A IgM Ab Hep Bs Antigen Hep B Core IgM Ab Hepatitis C Antibody Blood Type Antibody Screen Direct Antiglob Test JOANNE, Poly Interpret Crossmatch 12/13/17 12/13/17 12/13/17 12:25 14:03 14:03 WBC RBC Hgb Hct MCV MCH MCHC RDW Plt Count Lymph % (Auto) [place] % (Auto) Eos % (Auto) Baso % (Auto) Lymph # [place] # Eos # Baso # Add Manual Diff Total Counted Seg Neutrophils % Seg Neuts % (Manual) Band Neutrophils % Lymphocytes % (Manual) Reactive Lymphs % (Man) Monocytes % (Manual) Eosinophils % (Manual) Basophils % (Manual) Metamyelocytes % Myelocytes % Promyelocytes % Blast Cells % Nucleated RBC % Seg Neutrophils # Seg Neutrophils # Man Band Neutrophils # Lymphocytes # (Manual) Abs React Lymphs (Man) Monocytes # (Manual) Eosinophils # (Manual) Basophils # (Manual) Metamyelocytes # Myelocytes # Promyelocytes # Blast Cells # WBC Morphology Hypersegmented Neuts Hyposegmented Neuts Hypogranular Neuts Smudge Cells Toxic Granulation Toxic Vacuolation Dohle Bodies Pelger-Huet Anomaly Eriberto Rods Platelet Estimate Clumped Platelets Plt Clumps, EDTA Large Platelets Giant Platelets Platelet Satelliting Plt Morphology Comment RBC Morphology Dimorphic RBCs Polychromasia Hypochromasia Poikilocytosis Anisocytosis Microcytosis Macrocytosis Spherocytes Pappenheimer Bodies Sickle Cells Target Cells Tear Drop Cells Ovalocytes Helmet Cells [place] Bodies [place] Rings [place] Cells Bite Cells Crenated Cell Elliptocytes Acanthocytes (Spur) Rouleaux Hemoglobin C Crystals Schistocytes Malaria parasites ESR Lyn[place] Bodies Hem Pathologist Commnt PT INR APTT Fibrinogen D-Dimer Sodium Potassium Chloride Carbon Dioxide Anion Gap BUN Creatinine Estimated GFR BUN/Creatinine Ratio Glucose POC Glucose 112 H Lactic Acid 3.70 H* Calcium Total Bilirubin Direct Bilirubin Indirect Bilirubin AST ALT Alkaline Phosphatase Ammonia 87.0 H Lactate Dehydrogenase C-Reactive Protein Total Protein Albumin Albumin/Globulin Ratio Vitamin B12 Folate Hepatitis A IgM Ab Hep Bs Antigen Hep B Core IgM Ab Hepatitis C Antibody Blood Type Antibody Screen Direct Antiglob Test JOANNE, Poly Interpret Crossmatch 12/13/17 14:03 WBC RBC Hgb Hct MCV MCH MCHC RDW Plt Count Lymph % (Auto) [place] % (Auto) Eos % (Auto) Baso % (Auto) Lymph # [place] # Eos # Baso # Add Manual Diff Total Counted Seg Neutrophils % Seg Neuts % (Manual) Band Neutrophils % Lymphocytes % (Manual) Reactive Lymphs % (Man) Monocytes % (Manual) Eosinophils % (Manual) Basophils % (Manual) Metamyelocytes % Myelocytes % Promyelocytes % Blast Cells % Nucleated RBC % Seg Neutrophils # Seg Neutrophils # Man Band Neutrophils # Lymphocytes # (Manual) Abs React Lymphs (Man) Monocytes # (Manual) Eosinophils # (Manual) Basophils # (Manual) Metamyelocytes # Myelocytes # Promyelocytes # Blast Cells # WBC Morphology Hypersegmented Neuts Hyposegmented Neuts Hypogranular Neuts Smudge Cells Toxic Granulation Toxic Vacuolation Dohle Bodies Pelger-Huet Anomaly Eriberto Rods Platelet Estimate Clumped Platelets Plt Clumps, EDTA Large Platelets Giant Platelets Platelet Satelliting Plt Morphology Comment RBC Morphology Dimorphic RBCs Polychromasia Hypochromasia Poikilocytosis Anisocytosis Microcytosis Macrocytosis Spherocytes Pappenheimer Bodies Sickle Cells Target Cells Tear Drop Cells Ovalocytes Helmet Cells [place] Bodies [place] Rings [place] Cells Bite Cells Crenated Cell Elliptocytes Acanthocytes (Spur) Rouleaux Hemoglobin C Crystals Schistocytes Malaria parasites ESR [place] Bodies Hem Pathologist Commnt PT INR APTT Fibrinogen D-Dimer Sodium Potassium Chloride Carbon Dioxide Anion Gap BUN Creatinine Estimated GFR BUN/Creatinine Ratio Glucose POC Glucose Lactic Acid Calcium Total Bilirubin Direct Bilirubin Indirect Bilirubin AST ALT Alkaline Phosphatase Ammonia Lactate Dehydrogenase C-Reactive Protein 0.30 Total Protein Albumin Albumin/Globulin Ratio Vitamin B12 Folate Hepatitis A IgM Ab Hep Bs Antigen Hep B Core IgM Ab Hepatitis C Antibody Blood Type Antibody Screen Direct Antiglob Test JOANNE, Poly Interpret Crossmatch
--- NOTE | 2017-12-13 16:55 | Progress Note ---
Assessment and Plan - Patient Problems (1) Acute hepatic encephalopathy Current Visit: Yes Status: Acute Plan to address problem: see orders. continue with lactulose, recheck ammonia level. (2) Anemia Current Visit: Yes Status: Acute Plan to address problem: see orders. Replacement transfusio, if hgb less than 7.0 Subjective Date of service: 12/13/17 Principal diagnosis: CARMEN on CKD; Acute Encephalopathy; Sepsis Syndrome; Anemia Interval history: Patient seen, restingm labs/notes reviewed. agree with management so far.labs showing consumptive coagulopathy. Objective - Constitutional Vitals: Vital Signs - 12hr 12/13/17 12/13/17 12/13/17 06:00 08:00 12:00 Temperature 99.0 F 98.4 F O2 Sat by Pulse 100 Oximetry General appearance: Present: mild distress - EENT Eyes: PERRL, EOM intact ENT: hearing intact, clear oral mucosa Ears: bilateral: normal - Neck Neck: supple, normal ROM - Respiratory Respiratory effort: normal Respiratory: bilateral: diminished - Breasts Breasts: deferred - Cardiovascular Rhythm: regular Heart Sounds: Present: S1 & S2. Absent: gallop, rub Extremities: pulses intact, No edema, normal color, Full ROM - Gastrointestinal General gastrointestinal: Present: soft, non-tender, non-distended, normal bowel sounds Rectal Exam: deferred - Genitourinary Male genitourinary: deferred - Integumentary Integumentary: clear, warm, dry - Musculoskeletal Musculoskeletal: 1, strength equal bilaterally - Neurologic Neurologic: moves all extremities - Psychiatric Psychiatric: appropriate mood/affect - Labs CBC & Chem 7: 12/13/17 04:00 12/13/17 04:00 Labs: Abnormal lab results 12/11/17 12/12/17 12/12/17 Range/Units 23:23 17:55 19:50 RBC 2.40 L (3.65-5.03) M/mm3 Hgb 7.8 L (11.8-15.2) gm/dl Hct 21.3 L (35.5-45.6) % MCH 33 H (28-32) pg MCHC 37 H (32-34) % RDW 16.1 H (13.2-15.2) % Plt Count 99 L (140-440) K/mm3 Lymph % (Auto) (13.4-35.0) % [place] % (Auto) (0.0-7.3) % Lymph # (1.2-5.4) K/mm3 Seg Neutrophils % (40.0-70.0) % Seg Neuts % (Manual) 87.0 H (40.0-70.0) % Lymphocytes % (Manual) 5.0 L (13.4-35.0) % Lymphocytes # (Manual) 0.3 L (1.2-5.4) K/mm3 PT (12.2-14.9) Sec. INR (0.87-1.13) APTT (24.2-36.6) Sec. Fibrinogen (211-480) mg/dl D-Dimer (0-234) ng/mlDDU Carbon Dioxide (22-30) mmol/L BUN (9-20) mg/dL Creatinine (0.8-1.5) mg/dL Glucose (75-100) mg/dL POC Glucose 119 H (70-105) Lactic Acid (0.7-2.0) mmol/L Calcium (8.4-10.2) mg/dL Total Bilirubin (0.1-1.2) mg/dL Direct Bilirubin (0-0.2) mg/dL AST (5-40) units/L Ammonia (25-60) umol/L Lactate Dehydrogenase (91-180) units/L Total Protein (6.3-8.2) g/dL Albumin (3.9-5) g/dL Vitamin B12 (211-911) pg/mL Crossmatch See Detail 12/12/17 12/12/17 12/12/17 Range/Units 19:50 19:50 19:50 RBC (3.65-5.03) M/mm3 Hgb (11.8-15.2) gm/dl Hct (35.5-45.6) % MCH (28-32) pg MCHC (32-34) % RDW (13.2-15.2) % Plt Count (140-440) K/mm3 Lymph % (Auto) (13.4-35.0) % [place] % (Auto) (0.0-7.3) % Lymph # (1.2-5.4) K/mm3 Seg Neutrophils % (40.0-70.0) % Seg Neuts % (Manual) (40.0-70.0) % Lymphocytes % (Manual) (13.4-35.0) % Lymphocytes # (Manual) (1.2-5.4) K/mm3 PT 21.9 H (12.2-14.9) Sec. INR 1.79 H (0.87-1.13) APTT 41.5 H (24.2-36.6) Sec. Fibrinogen 128 L (211-480) mg/dl D-Dimer 1215.06 H (0-234) ng/mlDDU Carbon Dioxide (22-30) mmol/L BUN (9-20) mg/dL Creatinine (0.8-1.5) mg/dL Glucose (75-100) mg/dL POC Glucose (70-105) Lactic Acid (0.7-2.0) mmol/L Calcium (8.4-10.2) mg/dL Total Bilirubin 4.10 H (0.1-1.2) mg/dL Direct Bilirubin 1.6 H (0-0.2) mg/dL AST (5-40) units/L Ammonia (25-60) umol/L Lactate Dehydrogenase 213 H (91-180) units/L Total Protein (6.3-8.2) g/dL Albumin (3.9-5) g/dL Vitamin B12 (211-911) pg/mL Crossmatch 12/12/17 12/12/17 12/13/17 Range/Units 19:50 23:46 04:00 RBC 2.32 L (3.65-5.03) M/mm3 Hgb 7.4 L (11.8-15.2) gm/dl Hct 20.8 L (35.5-45.6) % MCH (28-32) pg MCHC 36 H (32-34) % RDW 16.1 H (13.2-15.2) % Plt Count 134 L (140-440) K/mm3 Lymph % (Auto) 13.1 L (13.4-35.0) % [place] % (Auto) 7.9 H (0.0-7.3) % Lymph # 0.8 L (1.2-5.4) K/mm3 Seg Neutrophils % 76.3 H (40.0-70.0) % Seg Neuts % (Manual) (40.0-70.0) % Lymphocytes % (Manual) (13.4-35.0) % Lymphocytes # (Manual) (1.2-5.4) K/mm3 PT (12.2-14.9) Sec. INR (0.87-1.13) APTT (24.2-36.6) Sec. Fibrinogen (211-480) mg/dl D-Dimer (0-234) ng/mlDDU Carbon Dioxide (22-30) mmol/L BUN (9-20) mg/dL Creatinine (0.8-1.5) mg/dL Glucose (75-100) mg/dL POC Glucose 110 H (70-105) Lactic Acid (0.7-2.0) mmol/L Calcium (8.4-10.2) mg/dL Total Bilirubin (0.1-1.2) mg/dL Direct Bilirubin (0-0.2) mg/dL AST (5-40) units/L Ammonia (25-60) umol/L Lactate Dehydrogenase (91-180) units/L Total Protein (6.3-8.2) g/dL Albumin (3.9-5) g/dL Vitamin B12 1465 H (211-911) pg/mL Crossmatch 12/13/17 12/13/17 12/13/17 Range/Units 04:00 05:12 08:45 RBC (3.65-5.03) M/mm3 Hgb (11.8-15.2) gm/dl Hct (35.5-45.6) % MCH (28-32) pg MCHC (32-34) % RDW (13.2-15.2) % Plt Count (140-440) K/mm3 Lymph % (Auto) (13.4-35.0) % [place] % (Auto) (0.0-7.3) % Lymph # (1.2-5.4) K/mm3 Seg Neutrophils % (40.0-70.0) % Seg Neuts % (Manual) (40.0-70.0) % Lymphocytes % (Manual) (13.4-35.0) % Lymphocytes # (Manual) (1.2-5.4) K/mm3 PT 20.5 H (12.2-14.9) Sec. INR 1.65 H (0.87-1.13) APTT (24.2-36.6) Sec. Fibrinogen (211-480) mg/dl D-Dimer (0-234) ng/mlDDU Carbon Dioxide 21 L D (22-30) mmol/L BUN 48 H (9-20) mg/dL Creatinine 4.6 H (0.8-1.5) mg/dL Glucose 104 H (75-100) mg/dL POC Glucose 134 H (70-105) Lactic Acid (0.7-2.0) mmol/L Calcium 8.1 L (8.4-10.2) mg/dL Total Bilirubin 4.70 H (0.1-1.2) mg/dL Direct Bilirubin (0-0.2) mg/dL AST 43 H (5-40) units/L Ammonia (25-60) umol/L Lactate Dehydrogenase (91-180) units/L Total Protein 5.8 L (6.3-8.2) g/dL Albumin 3.1 L (3.9-5) g/dL Vitamin B12 (211-911) pg/mL Crossmatch 12/13/17 12/13/17 12/13/17 Range/Units 12:25 14:03 14:03 RBC (3.65-5.03) M/mm3 Hgb (11.8-15.2) gm/dl Hct (35.5-45.6) % MCH (28-32) pg MCHC (32-34) % RDW (13.2-15.2) % Plt Count (140-440) K/mm3 Lymph % (Auto) (13.4-35.0) % [place] % (Auto) (0.0-7.3) % Lymph # (1.2-5.4) K/mm3 Seg Neutrophils % (40.0-70.0) % Seg Neuts % (Manual) (40.0-70.0) % Lymphocytes % (Manual) (13.4-35.0) % Lymphocytes # (Manual) (1.2-5.4) K/mm3 PT (12.2-14.9) Sec. INR (0.87-1.13) APTT (24.2-36.6) Sec. Fibrinogen (211-480) mg/dl D-Dimer (0-234) ng/mlDDU Carbon Dioxide (22-30) mmol/L BUN (9-20) mg/dL Creatinine (0.8-1.5) mg/dL Glucose (75-100) mg/dL POC Glucose 112 H (70-105) Lactic Acid 3.70 H* (0.7-2.0) mmol/L Calcium (8.4-10.2) mg/dL Total Bilirubin (0.1-1.2) mg/dL Direct Bilirubin (0-0.2) mg/dL AST (5-40) units/L Ammonia 87.0 H (25-60) umol/L Lactate Dehydrogenase (91-180) units/L Total Protein (6.3-8.2) g/dL Albumin (3.9-5) g/dL Vitamin B12 (211-911) pg/mL Crossmatch
[2017-12-14] MEDS: CEPHULAC PO SCH ×3 (01:51→22:36)
[2017-12-14 05:48] LABS: Basophils % (Auto) 0.4 % (0.0-1.8); Eosinophils # (Auto) 0.1 K/mm3 (0.0-0.4); Eosinophils % (Auto) 1.3 % (0.0-4.3); Hematocrit 20.7 % (35.5-45.6); Hemoglobin 7.3 gm/dl (11.8-15.2); Lymphocytes # (Auto) 0.6 K/mm3 (1.2-5.4); Lymphocytes % (Auto) 12.8 % (13.4-35.0); Mean Corpuscular HGB Conc 35 % (32-34); Mean Corpuscular Hemoglobin 32 pg (28-32); Mean Corpuscular Volume 90 fl (84-94); Monocytes # (Auto) 0.4 K/mm3 (0.0-0.8); Monocytes % (Auto) 8.3 % (0.0-7.3); Red Blood Count 2.29 M/mm3 (3.65-5.03); Red Cell Distribution Width 16.2 % (13.2-15.2)
[2017-12-14 05:58] LABS: Platelet Count 84 K/mm3 (140-440)
[2017-12-14 06:12] LABS: Albumin 3.4 g/dL (3.9-5); Calcium 7.9 mg/dL (8.4-10.2)
[2017-12-14] MEDS ORDERED: PANCREAZE DR 10,500 UNIT FEEDTUBE PRN (08:58)
[2017-12-14] MEDS ORDERED: SIMPLE SYRUP FEEDTUBE PRN ×2 (08:58)
[2017-12-14] MEDS ORDERED: SODIUM BICARBONATE FEEDTUBE PRN (08:58)
[2017-12-14] MEDS: LEVAQUIN 500MG/100ML 500 MG/100 ML BAG IV SCH (10:03)
[2017-12-14] MEDS: ALBURX 25% (ALBUMIN) IV SCH ×2 (10:03→21:23)
[2017-12-14] MEDS: ROCEPHIN/NS 1 GM/50 ML 1 GM/50 ML BAG IV SCH (10:03)
[2017-12-14] MEDS: PROAMATINE PO SCH ×3 (10:04→21:23)
[2017-12-14] MEDS: PROTONIX FEEDTUBE SCH (10:04)
[2017-12-14] MEDS: XIFAXAN PO SCH ×2 (10:24→21:23)
[2017-12-14] MEDS: SODIUM BICARBONATE 150 MEQ in D5W 1,000 ML IV SCH (10:24)
--- NOTE | 2017-12-14 11:39 | Progress Note ---
Assessment and Plan Sepsis, possibly SBP Acute encephalopathy Severe anemia Lactic acidosis, multifactorial Cirrhosis with esophageal varices Rectal bleeding Coagulopathy Metabolic acidosis, multifactorial Respiratory alkalosis Nonoliguric CARMEN secondary to prerenal azotemia due to hypoperfusion ATN vs HRS Moderate protein calorie malnutrition - conservative volume management at this point now off vasopressors - continue empiric Antibiotics targeting SBP and CAP - continue Aspiration precautions - NPO for now, s/p small bowel feeding tube for medications - Resume chronic home medications, including rifaximin and midodrine - Sepsis protocol - Avoid nephrotoxics and adjust all medications for GFR - GI evaluation ongoing; octreotide if signs of active bleeding; continue lactulose but frequency reduced to bid - continue therapeutic PPI - paracentesis per GI recs - IR for right thoracentesis. Fluid to be sent for pleural fluid analysis ( awaiting procedure) - Ceftriaxone to continue for possible SBP - Follow up cultures (NGTD) - SCDs for VTE prophylaxis in view of GIB and coagulopathy - Supportive transfusions - Nutrition consult placed - PT/OT consult placed - tentative transfer to regular floor later today if no decompensation ..... 35' Subjective Date of service: 12/14/17 Principal diagnosis: CARMEN on CKD; Acute Encephalopathy; Sepsis Syndrome; Anemia Interval history: Patient is seen today for: CARMEN on CKD; Acute Encephalopathy; Sepsis Syndrome; Anemia Seen and examined at bedside; 24hour events reviewed; nursing and respiratory care staff consulted; no adverse overnight events reported to me; now off levophed; denies any acute pain; copious diarrhea and remains on lactulose; ammonia now WNL; no gross bleeding; No N/V/F/C Objective Vital Signs - 12hr 12/13/17 12/13/17 12/13/17 23:40 23:45 23:46 Temperature 98.1 F Pulse Rate 68 80 Respiratory 10 L 16 Rate Blood Pressure 106/59 103/61 O2 Sat by Pulse 99 97 Oximetry 12/13/17 12/14/17 12/14/17 23:50 00:00 00:10 Temperature Pulse Rate 64 70 65 Respiratory 12 12 12 Rate Blood Pressure 103/61 104/66 104/66 O2 Sat by Pulse 98 99 99 Oximetry 12/14/17 12/14/17 12/14/17 00:20 00:30 00:40 Temperature Pulse Rate 71 69 73 Respiratory 13 11 L 15 Rate Blood Pressure 110/61 108/62 108/62 O2 Sat by Pulse 98 99 98 Oximetry 12/14/17 12/14/17 12/14/17 00:50 01:00 01:10 Temperature Pulse Rate 72 74 75 Respiratory 13 16 16 Rate Blood Pressure 108/62 100/62 100/62 O2 Sat by Pulse 98 98 99 Oximetry 12/14/17 12/14/17 12/14/17 01:20 01:30 01:40 Temperature Pulse Rate 69 61 70 Respiratory 14 12 14 Rate Blood Pressure 107/62 103/59 103/59 O2 Sat by Pulse 99 100 99 Oximetry 12/14/17 12/14/17 12/14/17 01:50 01:54 02:00 Temperature Pulse Rate 68 71 Respiratory 12 16 11 L Rate Blood Pressure 100/62 98/63 O2 Sat by Pulse 98 97 98 Oximetry 12/14/17 12/14/17 12/14/17 02:10 02:20 02:30 Temperature Pulse Rate 64 65 83 Respiratory 10 L 10 L 21 Rate Blood Pressure 98/63 107/57 109/61 O2 Sat by Pulse 94 97 97 Oximetry 12/14/17 12/14/17 12/14/17 02:40 02:50 03:00 Temperature Pulse Rate 70 70 69 Respiratory 16 13 14 Rate Blood Pressure 109/61 108/55 108/55 O2 Sat by Pulse 97 99 99 Oximetry 12/14/17 12/14/17 12/14/17 03:10 03:20 03:30 Temperature Pulse Rate 67 69 84 Respiratory 12 12 14 Rate Blood Pressure 104/64 114/57 111/63 O2 Sat by Pulse 99 99 98 Oximetry 12/14/17 12/14/17 12/14/17 03:40 03:50 04:00 Temperature Pulse Rate 82 69 76 Respiratory 11 L 14 14 Rate Blood Pressure 111/63 106/60 104/53 O2 Sat by Pulse 99 99 100 Oximetry 12/14/17 12/14/17 12/14/17 04:10 04:20 04:30 Temperature Pulse Rate 77 70 67 Respiratory 14 14 15 Rate Blood Pressure 104/53 97/52 89/53 O2 Sat by Pulse 99 100 98 Oximetry 12/14/17 12/14/17 12/14/17 04:40 04:50 05:00 Temperature Pulse Rate 69 77 76 Respiratory 14 14 14 Rate Blood Pressure 89/53 94/56 94/56 O2 Sat by Pulse 98 99 100 Oximetry 12/14/17 12/14/17 12/14/17 05:10 05:20 05:30 Temperature Pulse Rate 77 81 78 Respiratory 15 23 13 Rate Blood Pressure 94/56 103/54 97/58 O2 Sat by Pulse 98 100 99 Oximetry 12/14/17 12/14/17 12/14/17 05:40 05:46 05:50 Temperature Pulse Rate 78 70 80 Respiratory 12 16 14 Rate Blood Pressure 97/58 O2 Sat by Pulse 99 97 99 Oximetry 12/14/17 12/14/17 06:00 08:00 Temperature 98.2 F Pulse Rate 66 Respiratory 11 L Rate Blood Pressure 95/55 O2 Sat by Pulse 99 Oximetry Constitutional: alert, other (chronically ill looking elderly AAM, normocephalic and atraumatic) Eyes: non-icteric ENT: oropharynx moist, other (mallampati 2) Neck: supple, no lymphadenopathy, no JVD, other (no thyromegaly) Effort: mildly labored Ascultation: Bilateral: diminished breath sounds (bases), rhonchi (scant) Percussion: Bilateral: not dull Cardiovascular: regular rate and rhythm, other (S1,S2, no murmurms, gallops or rubs) Gastrointestinal: normoactive bowel sounds, soft, non-tender, other (distended) Integumentary: rash Extremities: no cyanosis, no edema, pulses normal, no ischemia or petechiae, cool Neurologic: non-focal exam, pupils equal and round, motor strength normal and ( weak), other (somnolent) Psychiatric: other (flat affect) CBC and BMP: 12/15/17 04:51 12/15/17 04:51 ABG, PT/INR, D-dimer: ABG POC ABG pH 7.452 (7.35-7.45) H 12/12/17 09:13 POC ABG pCO2 22.2 (35-45) L 12/12/17 09:13 POC ABG pO2 75 (80-105) L 12/12/17 09:13 POC ABG HCO3 15.5 12/12/17 09:13 POC ABG Total CO2 16 12/12/17 09:13 POC ABG O2 Sat 96 12/12/17 09:13 PT/INR, D-dimer PT 20.5 Sec. (12.2-14.9) H 12/13/17 08:45 INR 1.65 (0.87-1.13) H 12/13/17 08:45 D-Dimer 1215.06 ng/mlDDU (0-234) H 12/12/17 19:50 Abnormal lab findings: Abnormal Labs 12/10/17 12/10/17 12/10/17 13:14 13:14 23:05 RBC 2.31 L Hgb 7.3 L Hct 21.5 L MCH MCHC RDW 17.7 H Plt Count 61 L Lymph % (Auto) Keith % (Auto) Lymph # Seg Neutrophils % Seg Neuts % (Manual) 81.0 H Lymphocytes % (Manual) 11.0 L Lymphocytes # (Manual) 0.6 L PT INR APTT Fibrinogen D-Dimer POC ABG pH POC ABG pCO2 POC ABG pO2 Sodium 136 L Potassium 5.2 H Chloride Carbon Dioxide 15 L BUN 47 H Creatinine 5.2 H Glucose 127 H POC Glucose Lactic Acid Calcium Total Bilirubin 3.50 H Direct Bilirubin AST 71 H Ammonia Lactate Dehydrogenase NT-Pro-B Natriuret Pep Total Protein Albumin 2.6 L Lipase Vitamin B12 Urine WBC (Auto) 10.0 H Crossmatch 12/10/17 12/10/17 12/10/17 23:14 23:14 23:14 RBC Hgb Hct MCH MCHC RDW Plt Count Lymph % (Auto) Keith % (Auto) Lymph # Seg Neutrophils % Seg Neuts % (Manual) Lymphocytes % (Manual) Lymphocytes # (Manual) PT INR APTT Fibrinogen D-Dimer POC ABG pH POC ABG pCO2 POC ABG pO2 Sodium Potassium Chloride Carbon Dioxide BUN Creatinine Glucose POC Glucose Lactic Acid 2.40 H* Calcium Total Bilirubin Direct Bilirubin AST Ammonia 134.0 H Lactate Dehydrogenase NT-Pro-B Natriuret Pep 9558 H Total Protein Albumin Lipase Vitamin B12 Urine WBC (Auto) Crossmatch 12/10/17 12/11/17 12/11/17 23:14 00:29 03:33 RBC Hgb Hct MCH MCHC RDW Plt Count Lymph % (Auto) Keith % (Auto) Lymph # Seg Neutrophils % Seg Neuts % (Manual) Lymphocytes % (Manual) Lymphocytes # (Manual) PT INR APTT Fibrinogen D-Dimer POC ABG pH POC ABG pCO2 POC ABG pO2 Sodium Potassium Chloride Carbon Dioxide BUN Creatinine Glucose POC Glucose Lactic Acid 2.80 H* 3.00 H* Calcium Total Bilirubin Direct Bilirubin AST Ammonia Lactate Dehydrogenase NT-Pro-B Natriuret Pep Total Protein Albumin Lipase 7 L Vitamin B12 Urine WBC (Auto) Crossmatch 12/11/17 12/11/17 12/11/17 04:08 04:34 04:34 RBC Hgb Hct MCH MCHC RDW Plt Count Lymph % (Auto) Keith % (Auto) Lymph # Seg Neutrophils % Seg Neuts % (Manual) Lymphocytes % (Manual) Lymphocytes # (Manual) PT 19.1 H INR 1.51 H APTT 45.7 H Fibrinogen D-Dimer POC ABG pH POC ABG pCO2 POC ABG pO2 Sodium Potassium Chloride Carbon Dioxide BUN Creatinine Glucose POC Glucose 113 H Lactic Acid 3.10 H* Calcium Total Bilirubin Direct Bilirubin AST Ammonia Lactate Dehydrogenase NT-Pro-B Natriuret Pep Total Protein Albumin Lipase Vitamin B12 Urine WBC (Auto) Crossmatch 12/11/17 12/11/17 12/11/17 06:46 07:26 09:42 RBC Hgb Hct MCH MCHC RDW Plt Count Lymph % (Auto) Keith % (Auto) Lymph # Seg Neutrophils % Seg Neuts % (Manual) Lymphocytes % (Manual) Lymphocytes # (Manual) PT INR APTT Fibrinogen D-Dimer POC ABG pH POC ABG pCO2 POC ABG pO2 Sodium Potassium Chloride Carbon Dioxide BUN Creatinine Glucose POC Glucose Lactic Acid 2.70 H* 2.80 H* 2.90 H* Calcium Total Bilirubin Direct Bilirubin AST Ammonia Lactate Dehydrogenase NT-Pro-B Natriuret Pep Total Protein Albumin Lipase Vitamin B12 Urine WBC (Auto) Crossmatch 12/11/17 12/11/17 12/11/17 13:12 14:06 23:14 RBC Hgb Hct MCH MCHC RDW Plt Count Lymph % (Auto) Keith % (Auto) Lymph # Seg Neutrophils % Seg Neuts % (Manual) Lymphocytes % (Manual) Lymphocytes # (Manual) PT INR APTT Fibrinogen D-Dimer POC ABG pH POC ABG pCO2 POC ABG pO2 Sodium Potassium Chloride Carbon Dioxide BUN Creatinine Glucose POC Glucose Lactic Acid 3.10 H* 3.10 H* 3.70 H* Calcium Total Bilirubin Direct Bilirubin AST Ammonia Lactate Dehydrogenase NT-Pro-B Natriuret Pep Total Protein Albumin Lipase Vitamin B12 Urine WBC (Auto) Crossmatch 12/11/17 12/12/17 12/12/17 23:23 03:41 03:41 RBC 2.17 L Hgb 7.0 L Hct 19.9 L* MCH 33 H MCHC 35 H RDW 17.7 H Plt Count 62 L Lymph % (Auto) Keith % (Auto) Lymph # Seg Neutrophils % Seg Neuts % (Manual) 91.0 H Lymphocytes % (Manual) 3.0 L Lymphocytes # (Manual) 0.2 L PT INR APTT Fibrinogen D-Dimer POC ABG pH POC ABG pCO2 POC ABG pO2 Sodium Potassium 5.4 H Chloride Carbon Dioxide 12 L BUN 47 H Creatinine 4.5 H Glucose 103 H POC Glucose Lactic Acid Calcium 8.0 L Total Bilirubin 3.60 H Direct Bilirubin AST 58 H Ammonia Lactate Dehydrogenase NT-Pro-B Natriuret Pep Total Protein 5.9 L Albumin 2.5 L Lipase Vitamin B12 Urine WBC (Auto) Crossmatch See Detail 12/12/17 12/12/17 12/12/17 07:00 09:13 17:55 RBC 2.06 L Hgb 6.6 L Hct 18.6 L* MCH MCHC 36 H RDW 17.8 H Plt Count 77 L Lymph % (Auto) Keith % (Auto) Lymph # Seg Neutrophils % Seg Neuts % (Manual) Lymphocytes % (Manual) Lymphocytes # (Manual) PT INR APTT Fibrinogen D-Dimer POC ABG pH 7.452 H POC ABG pCO2 22.2 L POC ABG pO2 75 L Sodium Potassium Chloride Carbon Dioxide BUN Creatinine Glucose POC Glucose 119 H Lactic Acid Calcium Total Bilirubin Direct Bilirubin AST Ammonia Lactate Dehydrogenase NT-Pro-B Natriuret Pep Total Protein Albumin Lipase Vitamin B12 Urine WBC (Auto) Crossmatch 12/12/17 12/12/17 12/12/17 19:50 19:50 19:50 RBC 2.40 L Hgb 7.8 L Hct 21.3 L MCH 33 H MCHC 37 H RDW 16.1 H Plt Count 99 L Lymph % (Auto) Keith % (Auto) Lymph # Seg Neutrophils % Seg Neuts % (Manual) 87.0 H Lymphocytes % (Manual) 5.0 L Lymphocytes # (Manual) 0.3 L PT 21.9 H INR 1.79 H APTT 41.5 H Fibrinogen 128 L D-Dimer 1215.06 H POC ABG pH POC ABG pCO2 POC ABG pO2 Sodium Potassium Chloride Carbon Dioxide BUN Creatinine Glucose POC Glucose Lactic Acid Calcium Total Bilirubin 4.10 H Direct Bilirubin 1.6 H AST Ammonia Lactate Dehydrogenase NT-Pro-B Natriuret Pep Total Protein Albumin Lipase Vitamin B12 Urine WBC (Auto) Crossmatch 12/12/17 12/12/17 12/12/17 19:50 19:50 23:46 RBC Hgb Hct MCH MCHC RDW Plt Count Lymph % (Auto) Keith % (Auto) Lymph # Seg Neutrophils % Seg Neuts % (Manual) Lymphocytes % (Manual) Lymphocytes # (Manual) PT INR APTT Fibrinogen D-Dimer POC ABG pH POC ABG pCO2 POC ABG pO2 Sodium Potassium Chloride Carbon Dioxide BUN Creatinine Glucose POC Glucose 110 H Lactic Acid Calcium Total Bilirubin Direct Bilirubin AST Ammonia Lactate Dehydrogenase 213 H NT-Pro-B Natriuret Pep Total Protein Albumin Lipase Vitamin B12 1465 H Urine WBC (Auto) Crossmatch 12/13/17 12/13/17 12/13/17 04:00 04:00 05:12 RBC 2.32 L Hgb 7.4 L Hct 20.8 L MCH MCHC 36 H RDW 16.1 H Plt Count 134 L Lymph % (Auto) 13.1 L Keith % (Auto) 7.9 H Lymph # 0.8 L Seg Neutrophils % 76.3 H Seg Neuts % (Manual) Lymphocytes % (Manual) Lymphocytes # (Manual) PT INR APTT Fibrinogen D-Dimer POC ABG pH POC ABG pCO2 POC ABG pO2 Sodium Potassium Chloride Carbon Dioxide 21 L D BUN 48 H Creatinine 4.6 H Glucose 104 H POC Glucose 134 H Lactic Acid Calcium 8.1 L Total Bilirubin 4.70 H Direct Bilirubin AST 43 H Ammonia Lactate Dehydrogenase NT-Pro-B Natriuret Pep Total Protein 5.8 L Albumin 3.1 L Lipase Vitamin B12 Urine WBC (Auto) Crossmatch 12/13/17 12/13/17 12/13/17 08:45 12:25 14:03 RBC Hgb Hct MCH MCHC RDW Plt Count Lymph % (Auto) Keith % (Auto) Lymph # Seg Neutrophils % Seg Neuts % (Manual) Lymphocytes % (Manual) Lymphocytes # (Manual) PT 20.5 H INR 1.65 H APTT Fibrinogen D-Dimer POC ABG pH POC ABG pCO2 POC ABG pO2 Sodium Potassium Chloride Carbon Dioxide BUN Creatinine Glucose POC Glucose 112 H Lactic Acid 3.70 H* Calcium Total Bilirubin Direct Bilirubin AST Ammonia Lactate Dehydrogenase NT-Pro-B Natriuret Pep Total Protein Albumin Lipase Vitamin B12 Urine WBC (Auto) Crossmatch 12/13/17 12/13/17 12/13/17 14:03 18:52 21:09 RBC Hgb Hct MCH MCHC RDW Plt Count Lymph % (Auto) Keith % (Auto) Lymph # Seg Neutrophils % Seg Neuts % (Manual) Lymphocytes % (Manual) Lymphocytes # (Manual) PT INR APTT Fibrinogen D-Dimer POC ABG pH POC ABG pCO2 POC ABG pO2 Sodium Potassium Chloride Carbon Dioxide BUN Creatinine Glucose POC Glucose 110 H Lactic Acid 4.00 H* Calcium Total Bilirubin Direct Bilirubin AST Ammonia 87.0 H Lactate Dehydrogenase NT-Pro-B Natriuret Pep Total Protein Albumin Lipase Vitamin B12 Urine WBC (Auto) Crossmatch 12/14/17 12/14/17 12/14/17 00:25 03:30 03:30 RBC 2.29 L Hgb 7.3 L Hct 20.7 L MCH MCHC 35 H RDW 16.2 H Plt Count 84 L Lymph % (Auto) 12.8 L Keith % (Auto) 8.3 H Lymph # 0.6 L Seg Neutrophils % 77.2 H Seg Neuts % (Manual) Lymphocytes % (Manual) Lymphocytes # (Manual) PT INR APTT Fibrinogen D-Dimer POC ABG pH POC ABG pCO2 POC ABG pO2 Sodium Potassium Chloride 96.1 L Carbon Dioxide BUN 48 H Creatinine 4.6 H Glucose 125 H POC Glucose 131 H Lactic Acid Calcium 7.9 L Total Bilirubin 4.70 H Direct Bilirubin AST 45 H Ammonia Lactate Dehydrogenase NT-Pro-B Natriuret Pep Total Protein 6.1 L Albumin 3.4 L Lipase Vitamin B12 Urine WBC (Auto) Crossmatch 12/14/17 05:31 RBC Hgb Hct MCH MCHC RDW Plt Count Lymph % (Auto) Keith % (Auto) Lymph # Seg Neutrophils % Seg Neuts % (Manual) Lymphocytes % (Manual) Lymphocytes # (Manual) PT INR APTT Fibrinogen D-Dimer POC ABG pH POC ABG pCO2 POC ABG pO2 Sodium Potassium Chloride Carbon Dioxide BUN Creatinine Glucose POC Glucose 125 H Lactic Acid Calcium Total Bilirubin Direct Bilirubin AST Ammonia Lactate Dehydrogenase NT-Pro-B Natriuret Pep Total Protein Albumin Lipase Vitamin B12 Urine WBC (Auto) Crossmatch Chest x-ray: image reviewed (bilateral infiltrates; bilateral effusions; mild to mod volume overload) Allied health notes reviewed: RT
--- NOTE | 2017-12-14 11:47 | Progress Note ---
Assessment and Plan Assessment and plan: Septic/hypovolemic shock. Will follow-up blood and urine cultures. Patient with elevated lactic acid levels. Patient requiring pressors of Levophed. Continue pressors to maintain MAP greater than 65. Resume Midodrine Severe anemia secondary to acute blood loss. Transfuse PRBCs as needed. Rectal bleeding. Resolved. No new bleeding episodes since admission. GI following. UTI. Cont antibiotics Cirrhosis with esophageal varices. GI following. Patient without signs of active bleeding. If any signs of bleeding we will start octreotide. GI with no plans to scope at this time. ? Ascites. Follow-up right upper quadrant ultrasound. Consider paracentesis if positive. Toxic metabolic/hepatic encephalopathy. Patient with elevated ammonia level on admission. Continue to treat with lactulose and underlying causes of sepsis. Recheck ammonia level. Acute on chronic kidney disease. Etiology likely secondary to acute kidney injury from ATN/sepsis/hypotension. Nephrology following. Pleural effusion. IR for right thoracentesis and fluid will be analyzed. The high probability of a clinically significant, sudden or life threatening deterioration of the [hemodynamic and renal] system(s) required my full and direct attention, intervention and personal management. The aggregate critical care time was [33] minutes. This time is in addition to time spent performing reported procedures but includes the following: [x] Data Review and interpretation [x] Patient assessment and monitoring of vital signs [x] Documentation [x] Medication orders and management History Interval history: Patient remains hypotensive requiring pressors of Levophed. Hospitalist Physical - Constitutional Vitals: Temp Pulse Resp BP Pulse Ox 98.2 F 66 11 L 95/55 99 12/14/17 08:00 12/14/17 06:00 12/14/17 06:00 12/14/17 06:00 12/14/17 06:00 General appearance: Present: mild distress - EENT Eyes: Present: PERRL, EOM intact ENT: hearing intact, clear oral mucosa, dentition normal - Neck Neck: Present: supple, normal ROM - Respiratory Respiratory effort: normal Respiratory: bilateral: CTA - Cardiovascular Rhythm: regular Heart Sounds: Present: S1 & S2. Absent: gallop, rub - Extremities Extremities: no ischemia, No edema, Full ROM - Abdominal General gastrointestinal: soft, non-tender, non-distended, normal bowel sounds - Integumentary Integumentary: Present: clear, warm, dry - Neurologic Neurologic: CNII-XII intact, moves all extremities Results - Labs CBC & Chem 7: 12/14/17 03:30 12/14/17 03:30 Labs: Laboratory Last Values WBC 4.6 K/mm3 (4.5-11.0) 12/14/17 03:30 RBC 2.29 M/mm3 (3.65-5.03) L 12/14/17 03:30 Hgb 7.3 gm/dl (11.8-15.2) L 12/14/17 03:30 Hct 20.7 % (35.5-45.6) L 12/14/17 03:30 MCV 90 fl (84-94) 12/14/17 03:30 MCH 32 pg (28-32) 12/14/17 03:30 MCHC 35 % (32-34) H 12/14/17 03:30 RDW 16.2 % (13.2-15.2) H 12/14/17 03:30 Plt Count 84 K/mm3 (140-440) L 12/14/17 03:30 Lymph % (Auto) 12.8 % (13.4-35.0) L 12/14/17 03:30 Fisher % (Auto) 8.3 % (0.0-7.3) H 12/14/17 03:30 Eos % (Auto) 1.3 % (0.0-4.3) 12/14/17 03:30 Baso % (Auto) 0.4 % (0.0-1.8) 12/14/17 03:30 Lymph # 0.6 K/mm3 (1.2-5.4) L 12/14/17 03:30 Fisher # 0.4 K/mm3 (0.0-0.8) 12/14/17 03:30 Eos # 0.1 K/mm3 (0.0-0.4) 12/14/17 03:30 Baso # 0.0 K/mm3 (0.0-0.1) 12/14/17 03:30 Add Manual Diff Complete 12/12/17 19:50 Total Counted 100 12/12/17 19:50 Seg Neutrophils % 77.2 % (40.0-70.0) H 12/14/17 03:30 Seg Neuts % (Manual) 87.0 % (40.0-70.0) H 12/12/17 19:50 Band Neutrophils % 0 % 12/12/17 19:50 Lymphocytes % (Manual) 5.0 % (13.4-35.0) L 12/12/17 19:50 Reactive Lymphs % (Man) 0 % 12/12/17 19:50 Monocytes % (Manual) 6.0 % (0.0-7.3) 12/12/17 19:50 Eosinophils % (Manual) 2.0 % (0.0-4.3) 12/12/17 19:50 Basophils % (Manual) 0 % (0.0-1.8) 12/12/17 19:50 Metamyelocytes % 0 % 12/12/17 19:50 Myelocytes % 0 % 12/12/17 19:50 Promyelocytes % 0 % 12/12/17 19:50 Blast Cells % 0 % 12/12/17 19:50 Nucleated RBC % Not Reportable 12/12/17 19:50 Seg Neutrophils # 3.6 K/mm3 (1.8-7.7) 12/14/17 03:30 Seg Neutrophils # Man 4.9 K/mm3 (1.8-7.7) 12/12/17 19:50 Band Neutrophils # 0.0 K/mm3 12/12/17 19:50 Lymphocytes # (Manual) 0.3 K/mm3 (1.2-5.4) L 12/12/17 19:50 Abs React Lymphs (Man) 0.0 K/mm3 12/12/17 19:50 Monocytes # (Manual) 0.3 K/mm3 (0.0-0.8) 12/12/17 19:50 Eosinophils # (Manual) 0.1 K/mm3 (0.0-0.4) 12/12/17 19:50 Basophils # (Manual) 0.0 K/mm3 (0.0-0.1) 12/12/17 19:50 Metamyelocytes # 0.0 K/mm3 12/12/17 19:50 Myelocytes # 0.0 K/mm3 12/12/17 19:50 Promyelocytes # 0.0 K/mm3 12/12/17 19:50 Blast Cells # 0.0 K/mm3 12/12/17 19:50 WBC Morphology Not Reportable 12/12/17 19:50 Hypersegmented Neuts Not Reportable 12/12/17 19:50 Hyposegmented Neuts Not Reportable 12/12/17 19:50 Hypogranular Neuts Not Reportable 12/12/17 19:50 Smudge Cells Not Reportable 12/12/17 19:50 Toxic Granulation Not Reportable 12/12/17 19:50 Toxic Vacuolation Not Reportable 12/12/17 19:50 Dohle Bodies Not Reportable 12/12/17 19:50 Pelger-Huet Anomaly Not Reportable 12/12/17 19:50 Eriberto Rods Not Reportable 12/12/17 19:50 Platelet Estimate Appears decreased 12/12/17 19:50 Clumped Platelets Not Reportable 12/12/17 19:50 Plt Clumps, EDTA Not Reportable 12/12/17 19:50 Large Platelets 1+ 12/12/17 19:50 Giant Platelets Not Reportable 12/12/17 19:50 Platelet Satelliting Not Reportable 12/12/17 19:50 Plt Morphology Comment Not Reportable 12/12/17 19:50 RBC Morphology Not Reportable 12/12/17 19:50 Dimorphic RBCs Not Reportable 12/12/17 19:50 Polychromasia Not Reportable 12/12/17 19:50 Hypochromasia 1+ 12/12/17 19:50 Poikilocytosis Not Reportable 12/12/17 19:50 Anisocytosis Not Reportable 12/12/17 19:50 Microcytosis Not Reportable 12/12/17 19:50 Macrocytosis Not Reportable 12/12/17 19:50 Spherocytes Not Reportable 12/12/17 19:50 Pappenheimer Bodies Not Reportable 12/12/17 19:50 Sickle Cells Not Reportable 12/12/17 19:50 Target Cells Not Reportable 12/12/17 19:50 Tear Drop Cells Not Reportable 12/12/17 19:50 Ovalocytes Not Reportable 12/12/17 19:50 Helmet Cells Not Reportable 12/12/17 19:50 [place] Bodies Not Reportable 12/12/17 19:50 [place] Rings Not Reportable 12/12/17 19:50 [place] Cells 1+ 12/12/17 19:50 Bite Cells Not Reportable 12/12/17 19:50 Crenated Cell Not Reportable 12/12/17 19:50 Elliptocytes Not Reportable 12/12/17 19:50 Acanthocytes (Spur) 1+ 12/12/17 19:50 Rouleaux Not Reportable 12/12/17 19:50 Hemoglobin C Crystals Not Reportable 12/12/17 19:50 Schistocytes Not Reportable 12/12/17 19:50 Malaria parasites Not Reportable 12/12/17 19:50 ESR 18 mm/Hr (0-20) 12/12/17 19:50 Lyndon Bodies Not Reportable 12/12/17 19:50 Hem Pathologist Commnt No 12/12/17 19:50 PT 20.5 Sec. (12.2-14.9) H 12/13/17 08:45 INR 1.65 (0.87-1.13) H 12/13/17 08:45 APTT 41.5 Sec. (24.2-36.6) H 12/12/17 19:50 Fibrinogen 128 mg/dl (211-480) L 12/12/17 19:50 D-Dimer 1215.06 ng/mlDDU (0-234) H 12/12/17 19:50 POC ABG pH 7.452 (7.35-7.45) H 12/12/17 09:13 POC ABG pCO2 22.2 (35-45) L 12/12/17 09:13 POC ABG pO2 75 (80-105) L 12/12/17 09:13 POC ABG HCO3 15.5 12/12/17 09:13 POC ABG Total CO2 16 12/12/17 09:13 POC ABG O2 Sat 96 12/12/17 09:13 POC ABG Base Excess -8 12/12/17 09:13 FiO2 21 % 12/12/17 09:13 Sodium 139 mmol/L (137-145) 12/14/17 03:30 Potassium 3.8 mmol/L (3.6-5.0) 12/14/17 03:30 Chloride 96.1 mmol/L (98-107) L 12/14/17 03:30 Carbon Dioxide 23 mmol/L (22-30) 12/14/17 03:30 Anion Gap 24 mmol/L 12/14/17 03:30 BUN 48 mg/dL (9-20) H 12/14/17 03:30 Creatinine 4.6 mg/dL (0.8-1.5) H 12/14/17 03:30 Estimated GFR 16 ml/min 12/14/17 03:30 BUN/Creatinine Ratio 10 % 12/14/17 03:30 Glucose 125 mg/dL (75-100) H 12/14/17 03:30 POC Glucose 125 (70-105) H 12/14/17 05:31 Lactic Acid 4.00 mmol/L (0.7-2.0) H* 12/13/17 21:09 Calcium 7.9 mg/dL (8.4-10.2) L 12/14/17 03:30 Magnesium 1.80 mg/dL (1.7-2.3) 12/12/17 03:41 Total Bilirubin 4.70 mg/dL (0.1-1.2) H 12/14/17 03:30 Direct Bilirubin 1.6 mg/dL (0-0.2) H 12/12/17 19:50 Indirect Bilirubin 2.5 mg/dL 12/12/17 19:50 AST 45 units/L (5-40) H 12/14/17 03:30 ALT 17 units/L (7-56) 12/14/17 03:30 Alkaline Phosphatase 53 units/L (35-129) 12/14/17 03:30 Ammonia 44.0 umol/L (25-60) 12/14/17 03:30 Lactate Dehydrogenase 213 units/L (91-180) H 12/12/17 19:50 Total Creatine Kinase 64 units/L (55-170) 12/10/17 23:14 C-Reactive Protein 0.30 mg/dL (0.00-1.30) 12/13/17 14:03 NT-Pro-B Natriuret Pep 9558 pg/mL (0-900) H 12/10/17 23:14 Total Protein 6.1 g/dL (6.3-8.2) L 12/14/17 03:30 Albumin 3.4 g/dL (3.9-5) L 12/14/17 03:30 Albumin/Globulin Ratio 1.3 % 12/14/17 03:30 Lipase 7 units/L (13-60) L 12/10/17 23:14 Vitamin B12 1465 pg/mL (211-911) H 12/12/17 19:50 Folate 14.04 ng/mL (7.3-26.0) 12/12/17 19:50 TSH 3.900 mlU/mL (0.270-4.200) 12/10/17 23:14 Urine Color Yellow (Yellow) 12/10/17 23:05 Urine Turbidity Clear (Clear) 12/10/17 23:05 Urine pH 5.0 (5.0-7.0) 12/10/17 23:05 Ur Specific [place] 1.013 (1.003-1.030) 12/10/17 23:05 Urine Protein <15 mg/dl mg/dL (Negative) 12/10/17 23:05 Urine Glucose (UA) Neg mg/dL (Negative) 12/10/17 23:05 Urine Ketones Neg mg/dL (Negative) 12/10/17 23:05 Urine Blood Neg (Negative) 12/10/17 23:05 Urine Nitrite Neg (Negative) 12/10/17 23:05 Ur Reducing Substances Not Reportable 12/10/17 23:05 Urine Bilirubin Neg (Negative) 12/10/17 23:05 Urine Ictotest Not Reportable 12/10/17 23:05 Urine Urobilinogen < 2.0 mg/dL (<2.0) 12/10/17 23:05 Ur Leukocyte Esterase Sm (Negative) 12/10/17 23:05 Urine WBC (Auto) 10.0 /HPF (0.0-6.0) H 12/10/17 23:05 Urine RBC (Auto) 4.0 /HPF (0.0-6.0) 12/10/17 23:05 U Epithel Cells (Auto) < 1.0 /HPF (0-13.0) 12/10/17 23:05 Urine Mucus Few /HPF 12/10/17 23:05 Hepatitis A IgM Ab Non-reactive (NonReactive) 12/12/17 19:50 Hep Bs Antigen Non-reactive (Negative) 12/12/17 19:50 Hep B Core IgM Ab Non-reactive (NonReactive) 12/12/17 19:50 Hepatitis C Antibody Non-reactive (NonReactive) 12/12/17 19:50 Blood Type A NEGATIVE 07/24/18 23:23 Antibody Screen Negative 12/11/17 23:23 Direct Antiglob Test Negative 12/12/17 20:41 JOANNE, Poly Interpret Negative 12/12/17 20:41 Crossmatch See Detail 12/11/17 23:23
--- NOTE | 2017-12-14 13:05 | Progress Note ---
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 * empiric abx for SBP and UTI * Transfusion pRBC per primary team * Gastroenterology consultation needed * Medical management of electrolytes * Avoid potential nephrotoxic agents * Dose medications for renal function Subjective Date of service: 12/14/17 Principal diagnosis: CARMEN on CKD; Acute Encephalopathy; Sepsis Syndrome; Anemia Interval history: in bed, confused, no acute events Objective - Exam Narrative Exam: General: well-nourished, well-developed, no acute distress Head: Normocephalic, atraumatic Eyes: normal sclera ENT: Mucous membranes are pale and dry Neck: No neck stiffness, no cervical adenopathy Respiratory: Breath sounds equal bilaterally, no wheezing, rales, or rhonchi Cardio: S1 and S2 present, no murmurs, rubs, gallops, capillary refill is delayed Abdomen: Normoactive bowel sounds, soft abdomen, generalized tenderness to palpation present, no rigidity, no guarding or rebound tenderness Chest WALL/Back: No tenderness to palpation of the chest wall, no CVA tenderness with percussion Musc: No pitting edema Skin: No rash Neuro: no facial drooping, normal speech Psych: Normal affect - Vital Signs Vital signs: Vital Signs - 12hr 12/14/17 12/14/17 12/14/17 01:10 01:20 01:30 Temperature Pulse Rate 75 69 61 Respiratory 16 14 12 Rate Blood Pressure 100/62 107/62 103/59 O2 Sat by Pulse 99 99 100 Oximetry 12/14/17 12/14/17 12/14/17 01:40 01:50 01:54 Temperature Pulse Rate 70 68 Respiratory 14 12 16 Rate Blood Pressure 103/59 100/62 O2 Sat by Pulse 99 98 97 Oximetry 12/14/17 12/14/17 12/14/17 02:00 02:10 02:20 Temperature Pulse Rate 71 64 65 Respiratory 11 L 10 L 10 L Rate Blood Pressure 98/63 98/63 107/57 O2 Sat by Pulse 98 94 97 Oximetry 12/14/17 12/14/17 12/14/17 02:30 02:40 02:50 Temperature Pulse Rate 83 70 70 Respiratory 21 16 13 Rate Blood Pressure 109/61 109/61 108/55 O2 Sat by Pulse 97 97 99 Oximetry 12/14/17 12/14/17 12/14/17 03:00 03:10 03:20 Temperature Pulse Rate 69 67 69 Respiratory 14 12 12 Rate Blood Pressure 108/55 104/64 114/57 O2 Sat by Pulse 99 99 99 Oximetry 12/14/17 12/14/17 12/14/17 03:30 03:40 03:50 Temperature Pulse Rate 84 82 69 Respiratory 14 11 L 14 Rate Blood Pressure 111/63 111/63 106/60 O2 Sat by Pulse 98 99 99 Oximetry 12/14/17 12/14/17 12/14/17 04:00 04:10 04:20 Temperature Pulse Rate 76 77 70 Respiratory 14 14 14 Rate Blood Pressure 104/53 104/53 97/52 O2 Sat by Pulse 100 99 100 Oximetry 12/14/17 12/14/17 12/14/17 04:30 04:40 04:50 Temperature Pulse Rate 67 69 77 Respiratory 15 14 14 Rate Blood Pressure 89/53 89/53 94/56 O2 Sat by Pulse 98 98 99 Oximetry 12/14/17 12/14/17 12/14/17 05:00 05:10 05:20 Temperature Pulse Rate 76 77 81 Respiratory 14 15 23 Rate Blood Pressure 94/56 94/56 103/54 O2 Sat by Pulse 100 98 100 Oximetry 12/14/17 12/14/17 12/14/17 05:30 05:40 05:46 Temperature Pulse Rate 78 78 70 Respiratory 13 12 16 Rate Blood Pressure 97/58 97/58 O2 Sat by Pulse 99 99 97 Oximetry 12/14/17 12/14/17 12/14/17 05:50 06:00 08:00 Temperature 98.2 F Pulse Rate 80 66 Respiratory 14 11 L Rate Blood Pressure 95/55 O2 Sat by Pulse 99 99 Oximetry - Lab 12/14/17 03:30 12/14/17 03:30 Most recent lab results Calcium 7.9 mg/dL (8.4-10.2) L 12/14/17 03:30 Magnesium 1.80 mg/dL (1.7-2.3) 12/12/17 03:41
--- NOTE | 2017-12-14 13:07 | XRay Report ---
Single view chest: Compared to 12/11/17. History: Pleural effusion. Findings: Borderline cardiomegaly with bilateral pleural effusion and mild pulmonary venous congestion. Stable support system. Impression: No significant interval change.
--- NOTE | 2017-12-14 13:32 | Gastroenterology Progress Note ---
Assessment and Plan 1.Liver: pt h/o varices now with anemia - pt w/o signs active bleed and none per staff since admission - follow h/h and co-ag>>stable, no GI bleeding per nursing - if any signs bleeding would start Octreotide - no plans to scope at this time - will follow 2. Liver; pt w/ cirrhosis and encephalopathy w/ sepsis - pt mental status unchanged - continue Lactulose with antibiotics and Albumin>>decreased Lactulose to BID, nursing reports pt with multiple BM per day. Ammonia level normal. - follow closely Subjective Date of service: 12/14/17 Principal diagnosis: CARMEN on CKD; Acute Encephalopathy; Sepsis Syndrome; Anemia Interval history: Family at bedside. No acute events overnight. Objective - Constitutional Vitals: Temp Pulse Resp BP Pulse Ox 98.2 F 66 11 L 95/55 99 12/14/17 08:00 12/14/17 06:00 12/14/17 06:00 12/14/17 06:00 12/14/17 06:00 General appearance: no acute distress, other (pt does respond verbally) - EENT Eyes: EOM intact - Cardiovascular Rhythm: regular Heart Sounds: Present: S1 & S2 - Gastrointestinal General gastrointestinal: Present: distended, hypoactive bowel sounds - Integumentary Integumentary: Present: warm, dry - Neurologic Neurological: other (drowsy ) - Labs CBC & Chem 7: 12/14/17 03:30 12/14/17 03:30 Labs: Laboratory Results - last 24 hr 12/11/17 12/13/17 12/13/17 23:23 14:03 14:03 WBC RBC Hgb Hct MCV MCH MCHC RDW Plt Count Lymph % (Auto) T[place] % (Auto) Eos % (Auto) Baso % (Auto) Lymph # Tift # Eos # Baso # Seg Neutrophils % Seg Neutrophils # Sodium Potassium Chloride Carbon Dioxide Anion Gap BUN Creatinine Estimated GFR BUN/Creatinine Ratio Glucose POC Glucose Lactic Acid 3.70 H* Calcium Total Bilirubin AST ALT Alkaline Phosphatase Ammonia 87.0 H C-Reactive Protein Total Protein Albumin Albumin/Globulin Ratio Blood Type A NEGATIVE Antibody Screen Negative Crossmatch See Detail 12/13/17 12/13/17 12/13/17 14:03 18:52 21:09 WBC RBC Hgb Hct MCV MCH MCHC RDW Plt Count Lymph % (Auto) [place] % (Auto) Eos % (Auto) Baso % (Auto) Lymph # Tift # Eos # Baso # Seg Neutrophils % Seg Neutrophils # Sodium Potassium Chloride Carbon Dioxide Anion Gap BUN Creatinine Estimated GFR BUN/Creatinine Ratio Glucose POC Glucose 110 H Lactic Acid 4.00 H* Calcium Total Bilirubin AST ALT Alkaline Phosphatase Ammonia C-Reactive Protein 0.30 Total Protein Albumin Albumin/Globulin Ratio Blood Type Antibody Screen Crossmatch 12/14/17 12/14/17 12/14/17 00:25 03:30 03:30 WBC 4.6 RBC 2.29 L Hgb 7.3 L Hct 20.7 L MCV 90 MCH 32 MCHC 35 H RDW 16.2 H Plt Count 84 L Lymph % (Auto) 12.8 L [place]ift % (Auto) 8.3 H Eos % (Auto) 1.3 Baso % (Auto) 0.4 Lymph # 0.6 L Tift # 0.4 Eos # 0.1 Baso # 0.0 Seg Neutrophils % 77.2 H Seg Neutrophils # 3.6 Sodium 139 Potassium 3.8 Chloride 96.1 L Carbon Dioxide 23 Anion Gap 24 BUN 48 H Creatinine 4.6 H Estimated GFR 16 BUN/Creatinine Ratio 10 Glucose 125 H POC Glucose 131 H Lactic Acid Calcium 7.9 L Total Bilirubin 4.70 H AST 45 H ALT 17 Alkaline Phosphatase 53 Ammonia C-Reactive Protein Total Protein 6.1 L Albumin 3.4 L Albumin/Globulin Ratio 1.3 Blood Type Antibody Screen Crossmatch 12/14/17 12/14/17 03:30 05:31 WBC RBC Hgb Hct MCV MCH MCHC RDW Plt Count Lymph % (Auto) [place] % (Auto) Eos % (Auto) Baso % (Auto) Lymph # Tift # Eos # Baso # Seg Neutrophils % Seg Neutrophils # Sodium Potassium Chloride Carbon Dioxide Anion Gap BUN Creatinine Estimated GFR BUN/Creatinine Ratio Glucose POC Glucose 125 H Lactic Acid Calcium Total Bilirubin AST ALT Alkaline Phosphatase Ammonia 44.0 C-Reactive Protein Total Protein Albumin Albumin/Globulin Ratio Blood Type Antibody Screen Crossmatch
[2017-12-14] MEDS: LEVOPHED DRIP 4 MG/NS 250 ML 4 MG/250 ML BAG IV SCH (14:23)
--- NOTE | 2017-12-14 20:47 | Ultrasound Report ---
FINAL REPORT PROCEDURE: US ABDOMEN COMPLETE TECHNIQUE: Real-time sonography in multiple planes of the abdomen was performed with image documentation. CPT 29608 HISTORY: cirrhosis, ascites COMPARISON: No prior studies are available for comparison. FINDINGS: Liver: Normal size and echotexture with no evidence of cystic or solid mass lesions. There are calcified granulomas. There is a stent in the portal vein. Gallbladder: There are gallstones. The gallbladder wall is thickened at 4 millimeters. There is pericholecystic fluid.. Intrahepatic bile ducts: Normal caliber . Extrahepatic bile ducts: Normal caliber. Pancreas: Normal as visualized with suboptimal depiction of the pancreatic tail. Aorta: Visualized portions appear normal. IVC: Visualized portions appear normal. RIGHT kidney: Normal echotexture. No focal renal mass, calculus, or hydronephrosis. Length: 12.4cm. LEFT kidney: Normal echotexture. There are stones in the kidney without evidence of obstruction.. Length: 11.7cm. Spleen: Normal size and echotexture. No focal lesions. Intraperitoneal fluid: There is moderate ascites.. Other: None . IMPRESSION: Cholelithiasis with gallbladder wall thickening and pericholecystic fluid indicating possible cholecystitis. The bile ducts are normal in caliber. There is moderate ascites. There are nonobstructing stones in the left kidney..
[2017-12-14 21:32] LABS: Creatinine 24 Hour,Urine 0.3 (0.8-2.8); Creatinine,Urine 122.5 mg/dL (0.1-20.0)
[2017-12-15 05:17] LABS: Basophils % (Auto) 0.7 % (0.0-1.8); Eosinophils # (Auto) 0.1 K/mm3 (0.0-0.4); Eosinophils % (Auto) 1.7 % (0.0-4.3); Hematocrit 20.7 % (35.5-45.6); Hemoglobin 7.3 gm/dl (11.8-15.2); Lymphocytes # (Auto) 0.6 K/mm3 (1.2-5.4); Lymphocytes % (Auto) 12.5 % (13.4-35.0); Mean Corpuscular HGB Conc 35 % (32-34); Mean Corpuscular Hemoglobin 32 pg (28-32); Mean Corpuscular Volume 91 fl (84-94); Monocytes # (Auto) 0.5 K/mm3 (0.0-0.8); Monocytes % (Auto) 10.4 % (0.0-7.3); Red Blood Count 2.27 M/mm3 (3.65-5.03); Red Cell Distribution Width 16.1 % (13.2-15.2)
[2017-12-15 05:26] LABS: Platelet Count 92 K/mm3 (140-440)
[2017-12-15 05:31] LABS: Albumin 3.8 g/dL (3.9-5); Calcium 7.9 mg/dL (8.4-10.2)
[2017-12-15] MEDS: PROAMATINE PO SCH ×3 (10:07→22:31)
[2017-12-15] MEDS: PROTONIX FEEDTUBE SCH (10:08)
[2017-12-15] MEDS: XIFAXAN PO SCH ×2 (10:09→23:06)
[2017-12-15] MEDS: ROCEPHIN/NS 1 GM/50 ML 1 GM/50 ML BAG IV SCH (11:14)
[2017-12-15] MEDS: ALBURX 25% (ALBUMIN) IV SCH ×2 (11:16→22:31)
--- NOTE | 2017-12-15 11:52 | Progress Note ---
Assessment and Plan Impression: * Nonoliguric CARMEN secondary to prerenal azotemia due to hypoperfusion ATN vs HRS * Hyperkalemia * sepsis * Severe anemia secondary to ABL * Rectal bleeding * Cirrhosis w/ esophageal varices * Metabolic acidosis * Hyperbilirubinemia * pyuria Plan: * Renal function is stable today * only 250ml of uop, he has hepatorenal syndrome, will need to start hd * plan to initiate hd leandro for hepatorenal syndrome * co2 is improved * likely has low crcl due to liver disease * continue bicarb gtt and iv albumin * vasopressors to keep map >65 * strict i/os, avoid nephrotoxins * daily lytes * 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 * empiric abx for SBP and UTI * Transfusion pRBC per primary team * Gastroenterology consultation needed * Medical management of electrolytes * Avoid potential nephrotoxic agents * Dose medications for renal function Subjective Date of service: 12/15/17 Principal diagnosis: CARMEN on CKD; Acute Encephalopathy; Sepsis Syndrome; Anemia Interval history: in bed, confused, no acute events Objective - Exam Narrative Exam: General: well-nourished, well-developed, no acute distress Head: Normocephalic, atraumatic Eyes: normal sclera ENT: Mucous membranes are pale and dry Neck: No neck stiffness, no cervical adenopathy Respiratory: Breath sounds equal bilaterally, no wheezing, rales, or rhonchi Cardio: S1 and S2 present, no murmurs, rubs, gallops, capillary refill is delayed Abdomen: Normoactive bowel sounds, soft abdomen, generalized tenderness to palpation present, no rigidity, no guarding or rebound tenderness Chest WALL/Back: No tenderness to palpation of the chest wall, no CVA tenderness with percussion Musc: No pitting edema Skin: No rash Neuro: no facial drooping, normal speech Psych: Normal affect - Vital Signs Vital signs: Vital Signs - 12hr 12/14/17 12/15/17 12/15/17 23:50 00:00 00:10 Temperature Pulse Rate 56 L 63 61 Pulse Rate [ 60 From Monitor] Respiratory 11 L 18 11 L Rate Blood Pressure 97/49 100/58 100/58 O2 Sat by Pulse 99 97 98 Oximetry 12/15/17 12/15/17 12/15/17 00:20 00:30 00:40 Temperature Pulse Rate 65 56 L 59 L Pulse Rate [ From Monitor] Respiratory 14 12 10 L Rate Blood Pressure 95/56 98/58 100/58 O2 Sat by Pulse 98 97 98 Oximetry 12/15/17 12/15/17 12/15/17 00:50 01:00 01:10 Temperature Pulse Rate 63 55 L 58 L Pulse Rate [ From Monitor] Respiratory 11 L 11 L 10 L Rate Blood Pressure 100/55 96/57 100/55 O2 Sat by Pulse 98 98 98 Oximetry 12/15/17 12/15/17 12/15/17 01:20 01:30 01:40 Temperature Pulse Rate 65 68 63 Pulse Rate [ From Monitor] Respiratory 10 L 15 17 Rate Blood Pressure 93/53 94/52 93/53 O2 Sat by Pulse 97 99 98 Oximetry 12/15/17 12/15/17 12/15/17 01:50 02:00 02:10 Temperature Pulse Rate 73 57 L 62 Pulse Rate [ 62 From Monitor] Respiratory 14 16 14 Rate Blood Pressure 100/58 100/58 100/58 O2 Sat by Pulse 96 97 98 Oximetry 12/15/17 12/15/17 12/15/17 02:20 02:30 02:40 Temperature Pulse Rate 56 L 85 58 L Pulse Rate [ From Monitor] Respiratory 11 L 13 11 L Rate Blood Pressure 103/54 103/54 103/54 O2 Sat by Pulse 98 97 97 Oximetry 12/15/17 12/15/17 12/15/17 02:50 03:00 03:10 Temperature Pulse Rate 60 61 61 Pulse Rate [ From Monitor] Respiratory 12 14 15 Rate Blood Pressure 94/56 101/56 101/56 O2 Sat by Pulse 97 98 98 Oximetry 12/15/17 12/15/17 12/15/17 03:20 03:30 03:40 Temperature Pulse Rate 60 60 62 Pulse Rate [ From Monitor] Respiratory 13 13 15 Rate Blood Pressure 97/56 95/56 95/56 O2 Sat by Pulse 97 99 97 Oximetry 12/15/17 12/15/17 12/15/17 03:50 03:57 04:00 Temperature 98.4 F Pulse Rate 62 60 Pulse Rate [ 62 From Monitor] Respiratory 14 14 Rate Blood Pressure 99/57 105/60 O2 Sat by Pulse 97 96 Oximetry 12/15/17 12/15/17 12/15/17 04:10 04:20 04:30 Temperature Pulse Rate 59 L 65 72 Pulse Rate [ From Monitor] Respiratory 14 12 16 Rate Blood Pressure 105/60 100/51 100/51 O2 Sat by Pulse 98 97 97 Oximetry 12/15/17 12/15/17 12/15/17 04:41 04:51 05:00 Temperature Pulse Rate 61 65 66 Pulse Rate [ From Monitor] Respiratory 12 18 16 Rate Blood Pressure 105/63 107/59 O2 Sat by Pulse 99 95 98 Oximetry 12/15/17 12/15/17 12/15/17 05:11 05:21 05:30 Temperature Pulse Rate 61 63 68 Pulse Rate [ From Monitor] Respiratory 13 14 14 Rate Blood Pressure 107/59 102/60 93/56 O2 Sat by Pulse 99 96 97 Oximetry 12/15/17 12/15/17 12/15/17 05:41 05:51 06:00 Temperature Pulse Rate 69 70 73 Pulse Rate [ 62 From Monitor] Respiratory 16 14 17 Rate Blood Pressure 93/56 100/55 101/59 O2 Sat by Pulse 94 94 95 Oximetry 12/15/17 12/15/17 12/15/17 06:11 06:21 06:30 Temperature Pulse Rate 71 69 69 Pulse Rate [ From Monitor] Respiratory 15 14 15 Rate Blood Pressure 101/59 102/57 106/58 O2 Sat by Pulse 96 95 95 Oximetry 12/15/17 12/15/17 12/15/17 06:41 06:51 07:00 Temperature Pulse Rate 72 64 73 Pulse Rate [ From Monitor] Respiratory 16 12 15 Rate Blood Pressure 106/58 107/60 106/57 O2 Sat by Pulse 97 96 94 Oximetry 12/15/17 12/15/17 12/15/17 07:11 07:21 07:30 Temperature Pulse Rate 65 69 70 Pulse Rate [ From Monitor] Respiratory 14 14 17 Rate Blood Pressure 106/57 93/63 100/40 O2 Sat by Pulse 98 96 97 Oximetry 12/15/17 12/15/17 12/15/17 07:41 07:51 08:00 Temperature 98.6 F Pulse Rate 64 77 67 Pulse Rate [ From Monitor] Respiratory 14 15 14 Rate Blood Pressure 100/40 106/55 100/54 O2 Sat by Pulse 98 96 98 Oximetry 12/15/17 12/15/17 12/15/17 08:11 08:21 08:30 Temperature Pulse Rate 66 70 76 Pulse Rate [ From Monitor] Respiratory 14 12 16 Rate Blood Pressure 100/54 104/53 108/55 O2 Sat by Pulse 96 98 96 Oximetry 12/15/17 12/15/17 12/15/17 08:41 08:51 09:00 Temperature Pulse Rate 72 66 65 Pulse Rate [ From Monitor] Respiratory 12 12 12 Rate Blood Pressure 108/55 95/51 92/51 O2 Sat by Pulse 99 98 96 Oximetry 12/15/17 12/15/17 12/15/17 09:11 09:21 09:30 Temperature Pulse Rate 75 84 73 Pulse Rate [ From Monitor] Respiratory 15 15 15 Rate Blood Pressure 92/51 104/51 104/59 O2 Sat by Pulse 99 95 94 Oximetry 12/15/17 12/15/17 12/15/17 09:41 09:51 10:00 Temperature Pulse Rate 78 69 69 Pulse Rate [ From Monitor] Respiratory 15 14 15 Rate Blood Pressure 104/59 105/58 107/54 O2 Sat by Pulse 97 97 97 Oximetry 12/15/17 12/15/17 12/15/17 10:11 10:21 10:30 Temperature Pulse Rate 70 76 71 Pulse Rate [ From Monitor] Respiratory 14 16 14 Rate Blood Pressure 107/54 112/56 100/59 O2 Sat by Pulse 98 98 Oximetry 12/15/17 12/15/17 12/15/17 10:41 10:51 11:00 Temperature Pulse Rate 77 71 73 Pulse Rate [ From Monitor] Respiratory 17 14 15 Rate Blood Pressure 112/56 115/57 99/58 O2 Sat by Pulse 90 97 95 Oximetry - Lab 12/15/17 04:51 12/15/17 04:51 Most recent lab results Calcium 7.9 mg/dL (8.4-10.2) L 12/15/17 04:51 Magnesium 1.80 mg/dL (1.7-2.3) 12/12/17 03:41 Urine Creatinine 122.5 mg/dL (0.1-20.0) H 12/14/17 Unknown
--- NOTE | 2017-12-15 12:18 | XRay Report ---
FINAL REPORT EXAM: XR ABDOMEN 1V AP HISTORY: feeding tube placement TECHNIQUE: KUB was performed Comparison: CT 12/11/2017, chest x-ray 12/10/2017 FINDINGS: Weighted tip feeding tube is present in the proximal stomach pointing toward the left. Recommend torquing the tube at the nose clockwise and placing the patient in the right lateral decubitus position and advancing the tube approximately 10 centimeters. Recommend then reimaging the patient. Tips shunt is present. There is bilateral basal consolidation and small pleural effusions. Ascites is present. Moderate distension and stool-filled colon. Cannot assess for free air on this supine exam. IMPRESSION: Weighted tip feeding tube in the proximal stomach. Recommend placing the patient in the right lateral decubitus position, twisting the tube at the nose clockwise and advancing 10 centimeters. Recommend leaving the patient in the right lateral decubitus for approximately 5 minutes and then reimaging the patient in the AP projection. TIPS shunt. Bibasal consolidation and small pleural effusions.
[2017-12-15] MEDS ORDERED: NACL 0.9% 100 ML IV PRN (12:28)
--- NOTE | 2017-12-15 12:34 | Gastroenterology Progress Note ---
Assessment and Plan 1. GI: no signs bleeding - h/h stable, no change 2. Liver: resolving encephalopathy - normal ammonia, more alert - follow labs, no changes - otherwise stable w/o change from GI standpoint, call if needed Subjective Date of service: 12/15/17 Principal diagnosis: CARMEN on CKD; Acute Encephalopathy; Sepsis Syndrome; Anemia Interval history: - no GI issues overnight Objective - Constitutional Vitals: Temp Pulse Resp BP Pulse Ox 98.6 F 73 15 99/58 95 12/15/17 08:00 12/15/17 11:00 12/15/17 11:00 12/15/17 11:00 12/15/17 11:00 General appearance: no acute distress - EENT Eyes: PERRL - Respiratory Respiratory: bilateral: rhonchi - Cardiovascular Rhythm: regular Heart Sounds: Present: S1 & S2 - Labs CBC & Chem 7: 12/15/17 04:51 12/15/17 04:51 Labs: Laboratory Results - last 24 hr 12/12/17 12/14/17 12/14/17 20:30 12:26 12:55 WBC RBC Hgb Hct MCV MCH MCHC RDW Plt Count Lymph % (Auto) [place] % (Auto) Eos % (Auto) Baso % (Auto) Lymph # [place] # Eos # Baso # Seg Neutrophils % Seg Neutrophils # Factor VIII:C Activity 178 Sodium Potassium Chloride Carbon Dioxide Anion Gap BUN Creatinine Estimated GFR BUN/Creatinine Ratio Glucose POC Glucose 117 H Lactic Acid 3.40 H* Calcium Total Bilirubin AST ALT Alkaline Phosphatase Ammonia Total Protein Albumin Albumin/Globulin Ratio Urine Total Volume Urine Creatinine Ur Creatinine 24 Hour 12/14/17 12/14/17 12/14/17 15:26 17:26 18:07 WBC RBC Hgb Hct MCV MCH MCHC RDW Plt Count Lymph % (Auto) [place] % (Auto) Eos % (Auto) Baso % (Auto) Lymph # [place] # Eos # Baso # Seg Neutrophils % Seg Neutrophils # Factor VIII:C Activity Sodium Potassium Chloride Carbon Dioxide Anion Gap BUN Creatinine Estimated GFR BUN/Creatinine Ratio Glucose POC Glucose 143 H Lactic Acid 4.00 H* 3.90 H* Calcium Total Bilirubin AST ALT Alkaline Phosphatase Ammonia Total Protein Albumin Albumin/Globulin Ratio Urine Total Volume Urine Creatinine Ur Creatinine 24 Hour 12/14/17 12/15/17 12/15/17 Unknown 00:08 04:51 WBC 5.1 RBC 2.27 L Hgb 7.3 L Hct 20.7 L MCV 91 MCH 32 MCHC 35 H RDW 16.1 H Plt Count 92 L Lymph % (Auto) 12.5 L [place] % (Auto) 10.4 H Eos % (Auto) 1.7 Baso % (Auto) 0.7 Lymph # 0.6 L [place] # 0.5 Eos # 0.1 Baso # 0.0 Seg Neutrophils % 74.7 H Seg Neutrophils # 3.8 Factor VIII:C Activity Sodium Potassium Chloride Carbon Dioxide Anion Gap BUN Creatinine Estimated GFR BUN/Creatinine Ratio Glucose POC Glucose 124 H Lactic Acid Calcium Total Bilirubin AST ALT Alkaline Phosphatase Ammonia Total Protein Albumin Albumin/Globulin Ratio Urine Total Volume 250 Urine Creatinine 122.5 H Ur Creatinine 24 Hour 0.3 L 12/15/17 12/15/17 12/15/17 04:51 04:51 05:56 WBC RBC Hgb Hct MCV MCH MCHC RDW Plt Count Lymph % (Auto) [place] % (Auto) Eos % (Auto) Baso % (Auto) Lymph # [place] # Eos # Baso # Seg Neutrophils % Seg Neutrophils # Factor VIII:C Activity Sodium 139 Potassium 3.5 L Chloride 92.6 L Carbon Dioxide 29 Anion Gap 21 BUN 50 H Creatinine 4.8 H Estimated GFR 15 BUN/Creatinine Ratio 10 Glucose 141 H POC Glucose 143 H Lactic Acid Calcium 7.9 L Total Bilirubin 3.60 H AST 44 H ALT 16 Alkaline Phosphatase 75 Ammonia 24.0 L Total Protein 6.1 L Albumin 3.8 L Albumin/Globulin Ratio 1.7 Urine Total Volume Urine Creatinine Ur Creatinine 24 Hour
--- NOTE | 2017-12-15 13:16 | Progress Note ---
Assessment and Plan Assessment and plan: Septic/hypovolemic shock. Will follow-up blood and urine cultures. Patient with elevated lactic acid levels. Patient requiring pressors of Levophed. Continue pressors to maintain MAP greater than 65. Cont. Midodrine. Check echocardiogram and random cortisol. Severe anemia secondary to acute blood loss. Transfuse PRBCs as needed. Rectal bleeding. Resolved. No new bleeding episodes since admission. GI following. UTI. Cont antibiotics Cirrhosis with esophageal varices. GI following. Patient without signs of active bleeding. If any signs of bleeding we will start octreotide. GI with no plans to scope at this time. ? Ascites. Follow-up right upper quadrant ultrasound. Consider paracentesis if positive. Toxic metabolic/hepatic encephalopathy. Patient with elevated ammonia level on admission. Continue to treat with lactulose and underlying causes of sepsis. Ammonia level has normalized and symptoms are improved. Acute on chronic kidney disease. Etiology likely secondary to acute kidney injury from ATN/sepsis/hypotension. Nephrology following. Pleural effusion. IR for right thoracentesis and fluid will be analyzed. The high probability of a clinically significant, sudden or life threatening deterioration of the [hemodynamic and renal] system(s) required my full and direct attention, intervention and personal management. The aggregate critical care time was [33] minutes. This time is in addition to time spent performing reported procedures but includes the following: [x] Data Review and interpretation [x] Patient assessment and monitoring of vital signs [x] Documentation [x] Medication orders and management History Interval history: Patient remains hypotensive requiring pressors of Levophed. Hospitalist Physical - Constitutional Vitals: Temp Pulse Resp BP Pulse Ox 98.6 F 73 15 99/58 95 12/15/17 08:00 12/15/17 11:00 12/15/17 11:00 12/15/17 11:00 12/15/17 11:00 General appearance: Present: mild distress - EENT Eyes: Present: PERRL, EOM intact ENT: hearing intact, clear oral mucosa, dentition normal - Neck Neck: Present: supple, normal ROM - Respiratory Respiratory effort: normal Respiratory: bilateral: CTA - Cardiovascular Rhythm: regular Heart Sounds: Present: S1 & S2. Absent: gallop, rub - Extremities Extremities: no ischemia, No edema, Full ROM - Abdominal General gastrointestinal: soft, non-tender, non-distended, normal bowel sounds - Integumentary Integumentary: Present: clear, warm, dry - Neurologic Neurologic: CNII-XII intact, moves all extremities Results - Labs CBC & Chem 7: 12/15/17 04:51 12/15/17 04:51 Labs: Laboratory Last Values WBC 5.1 K/mm3 (4.5-11.0) 12/15/17 04:51 RBC 2.27 M/mm3 (3.65-5.03) L 12/15/17 04:51 Hgb 7.3 gm/dl (11.8-15.2) L 12/15/17 04:51 Hct 20.7 % (35.5-45.6) L 12/15/17 04:51 MCV 91 fl (84-94) 12/15/17 04:51 MCH 32 pg (28-32) 12/15/17 04:51 MCHC 35 % (32-34) H 12/15/17 04:51 RDW 16.1 % (13.2-15.2) H 12/15/17 04:51 Plt Count 92 K/mm3 (140-440) L 12/15/17 04:51 Lymph % (Auto) 12.5 % (13.4-35.0) L 12/15/17 04:51 [place] % (Auto) 10.4 % (0.0-7.3) H 12/15/17 04:51 Eos % (Auto) 1.7 % (0.0-4.3) 12/15/17 04:51 Baso % (Auto) 0.7 % (0.0-1.8) 12/15/17 04:51 Lymph # 0.6 K/mm3 (1.2-5.4) L 12/15/17 04:51 [place] # 0.5 K/mm3 (0.0-0.8) 12/15/17 04:51 Eos # 0.1 K/mm3 (0.0-0.4) 12/15/17 04:51 Baso # 0.0 K/mm3 (0.0-0.1) 12/15/17 04:51 Add Manual Diff Complete 12/12/17 19:50 Total Counted 100 12/12/17 19:50 Seg Neutrophils % 74.7 % (40.0-70.0) H 12/15/17 04:51 Seg Neuts % (Manual) 87.0 % (40.0-70.0) H 12/12/17 19:50 Band Neutrophils % 0 % 12/12/17 19:50 Lymphocytes % (Manual) 5.0 % (13.4-35.0) L 12/12/17 19:50 Reactive Lymphs % (Man) 0 % 12/12/17 19:50 Monocytes % (Manual) 6.0 % (0.0-7.3) 12/12/17 19:50 Eosinophils % (Manual) 2.0 % (0.0-4.3) 12/12/17 19:50 Basophils % (Manual) 0 % (0.0-1.8) 12/12/17 19:50 Metamyelocytes % 0 % 12/12/17 19:50 Myelocytes % 0 % 12/12/17 19:50 Promyelocytes % 0 % 12/12/17 19:50 Blast Cells % 0 % 12/12/17 19:50 Nucleated RBC % Not Reportable 12/12/17 19:50 Seg Neutrophils # 3.8 K/mm3 (1.8-7.7) 12/15/17 04:51 Seg Neutrophils # Man 4.9 K/mm3 (1.8-7.7) 12/12/17 19:50 Band Neutrophils # 0.0 K/mm3 12/12/17 19:50 Lymphocytes # (Manual) 0.3 K/mm3 (1.2-5.4) L 12/12/17 19:50 Abs React Lymphs (Man) 0.0 K/mm3 12/12/17 19:50 Monocytes # (Manual) 0.3 K/mm3 (0.0-0.8) 12/12/17 19:50 Eosinophils # (Manual) 0.1 K/mm3 (0.0-0.4) 12/12/17 19:50 Basophils # (Manual) 0.0 K/mm3 (0.0-0.1) 12/12/17 19:50 Metamyelocytes # 0.0 K/mm3 12/12/17 19:50 Myelocytes # 0.0 K/mm3 12/12/17 19:50 Promyelocytes # 0.0 K/mm3 12/12/17 19:50 Blast Cells # 0.0 K/mm3 12/12/17 19:50 WBC Morphology Not Reportable 12/12/17 19:50 Hypersegmented Neuts Not Reportable 12/12/17 19:50 Hyposegmented Neuts Not Reportable 12/12/17 19:50 Hypogranular Neuts Not Reportable 12/12/17 19:50 Smudge Cells Not Reportable 12/12/17 19:50 Toxic Granulation Not Reportable 12/12/17 19:50 Toxic Vacuolation Not Reportable 12/12/17 19:50 Dohle Bodies Not Reportable 12/12/17 19:50 Pelger-Huet Anomaly Not Reportable 12/12/17 19:50 Eriberto Rods Not Reportable 12/12/17 19:50 Platelet Estimate Appears decreased 12/12/17 19:50 Clumped Platelets Not Reportable 12/12/17 19:50 Plt Clumps, EDTA Not Reportable 12/12/17 19:50 Large Platelets 1+ 12/12/17 19:50 Giant Platelets Not Reportable 12/12/17 19:50 Platelet Satelliting Not Reportable 12/12/17 19:50 Plt Morphology Comment Not Reportable 12/12/17 19:50 RBC Morphology Not Reportable 12/12/17 19:50 Dimorphic RBCs Not Reportable 12/12/17 19:50 Polychromasia Not Reportable 12/12/17 19:50 Hypochromasia 1+ 12/12/17 19:50 Poikilocytosis Not Reportable 12/12/17 19:50 Anisocytosis Not Reportable 12/12/17 19:50 Microcytosis Not Reportable 12/12/17 19:50 Macrocytosis Not Reportable 12/12/17 19:50 Spherocytes Not Reportable 12/12/17 19:50 Pappenheimer Bodies Not Reportable 12/12/17 19:50 Sickle Cells Not Reportable 12/12/17 19:50 Target Cells Not Reportable 12/12/17 19:50 Tear Drop Cells Not Reportable 12/12/17 19:50 Ovalocytes Not Reportable 12/12/17 19:50 Helmet Cells Not Reportable 12/12/17 19:50 [place] Bodies Not Reportable 12/12/17 19:50 [place] Rings Not Reportable 12/12/17 19:50 [place] Cells 1+ 12/12/17 19:50 Bite Cells Not Reportable 12/12/17 19:50 Crenated Cell Not Reportable 12/12/17 19:50 Elliptocytes Not Reportable 12/12/17 19:50 Acanthocytes (Spur) 1+ 12/12/17 19:50 Rouleaux Not Reportable 12/12/17 19:50 Hemoglobin C Crystals Not Reportable 12/12/17 19:50 Schistocytes Not Reportable 12/12/17 19:50 Malaria parasites Not Reportable 12/12/17 19:50 ESR 18 mm/Hr (0-20) 12/12/17 19:50 [place] Bodies Not Reportable 12/12/17 19:50 Hem Pathologist Commnt No 12/12/17 19:50 PT 20.5 Sec. (12.2-14.9) H 12/13/17 08:45 INR 1.65 (0.87-1.13) H 12/13/17 08:45 APTT 41.5 Sec. (24.2-36.6) H 12/12/17 19:50 Fibrinogen 128 mg/dl (211-480) L 12/12/17 19:50 D-Dimer 1215.06 ng/mlDDU (0-234) H 12/12/17 19:50 Factor VIII:C Activity 178 % (50-180) 12/12/17 20:30 POC ABG pH 7.452 (7.35-7.45) H 12/12/17 09:13 POC ABG pCO2 22.2 (35-45) L 12/12/17 09:13 POC ABG pO2 75 (80-105) L 12/12/17 09:13 POC ABG HCO3 15.5 12/12/17 09:13 POC ABG Total CO2 16 12/12/17 09:13 POC ABG O2 Sat 96 12/12/17 09:13 POC ABG Base Excess -8 12/12/17 09:13 FiO2 21 % 12/12/17 09:13 Sodium 139 mmol/L (137-145) 12/15/17 04:51 Potassium 3.5 mmol/L (3.6-5.0) L 12/15/17 04:51 Chloride 92.6 mmol/L (98-107) L 12/15/17 04:51 Carbon Dioxide 29 mmol/L (22-30) 12/15/17 04:51 Anion Gap 21 mmol/L 12/15/17 04:51 BUN 50 mg/dL (9-20) H 12/15/17 04:51 Creatinine 4.8 mg/dL (0.8-1.5) H 12/15/17 04:51 Estimated GFR 15 ml/min 12/15/17 04:51 BUN/Creatinine Ratio 10 % 12/15/17 04:51 Glucose 141 mg/dL (75-100) H 12/15/17 04:51 POC Glucose 143 (70-105) H 12/15/17 05:56 Lactic Acid 3.90 mmol/L (0.7-2.0) H* 12/14/17 17:26 Calcium 7.9 mg/dL (8.4-10.2) L 12/15/17 04:51 Magnesium 1.80 mg/dL (1.7-2.3) 12/12/17 03:41 Total Bilirubin 3.60 mg/dL (0.1-1.2) H 12/15/17 04:51 Direct Bilirubin 1.6 mg/dL (0-0.2) H 12/12/17 19:50 Indirect Bilirubin 2.5 mg/dL 12/12/17 19:50 AST 44 units/L (5-40) H 12/15/17 04:51 ALT 16 units/L (7-56) 12/15/17 04:51 Alkaline Phosphatase 75 units/L (35-129) 12/15/17 04:51 Ammonia 24.0 umol/L (25-60) L 12/15/17 04:51 Lactate Dehydrogenase 213 units/L (91-180) H 12/12/17 19:50 Total Creatine Kinase 64 units/L (55-170) 12/10/17 23:14 C-Reactive Protein 0.30 mg/dL (0.00-1.30) 12/13/17 14:03 NT-Pro-B Natriuret Pep 9558 pg/mL (0-900) H 12/10/17 23:14 Total Protein 6.1 g/dL (6.3-8.2) L 12/15/17 04:51 Albumin 3.8 g/dL (3.9-5) L 12/15/17 04:51 Albumin/Globulin Ratio 1.7 % 12/15/17 04:51 Lipase 7 units/L (13-60) L 12/10/17 23:14 Vitamin B12 1465 pg/mL (211-911) H 12/12/17 19:50 Folate 14.04 ng/mL (7.3-26.0) 12/12/17 19:50 TSH 3.900 mlU/mL (0.270-4.200) 12/10/17 23:14 Urine Color Yellow (Yellow) 12/10/17 23:05 Urine Turbidity Clear (Clear) 12/10/17 23:05 Urine pH 5.0 (5.0-7.0) 12/10/17 23:05 Ur Specific [place] 1.013 (1.003-1.030) 12/10/17 23:05 Urine Protein <15 mg/dl mg/dL (Negative) 12/10/17 23:05 Urine Glucose (UA) Neg mg/dL (Negative) 12/10/17 23:05 Urine Ketones Neg mg/dL (Negative) 12/10/17 23:05 Urine Blood Neg (Negative) 12/10/17 23:05 Urine Nitrite Neg (Negative) 12/10/17 23:05 Ur Reducing Substances Not Reportable 12/10/17 23:05 Urine Bilirubin Neg (Negative) 12/10/17 23:05 Urine Ictotest Not Reportable 12/10/17 23:05 Urine Urobilinogen < 2.0 mg/dL (<2.0) 12/10/17 23:05 Ur Leukocyte Esterase Sm (Negative) 12/10/17 23:05 Urine WBC (Auto) 10.0 /HPF (0.0-6.0) H 12/10/17 23:05 Urine RBC (Auto) 4.0 /HPF (0.0-6.0) 12/10/17 23:05 U Epithel Cells (Auto) < 1.0 /HPF (0-13.0) 12/10/17 23:05 Urine Mucus Few /HPF 12/10/17 23:05 Urine Total Volume 250 12/14/17 Unknown Urine Creatinine 122.5 mg/dL (0.1-20.0) H 12/14/17 Unknown Ur Creatinine 24 Hour 0.3 (0.8-2.8) L 12/14/17 Unknown Hepatitis A IgM Ab Non-reactive (NonReactive) 12/12/17 19:50 Hep Bs Antigen Non-reactive (Negative) 12/12/17 19:50 Hep B Core IgM Ab Non-reactive (NonReactive) 12/12/17 19:50 Hepatitis C Antibody Non-reactive (NonReactive) 12/12/17 19:50 Blood Type A NEGATIVE 12/11/17 23:23 Antibody Screen Negative 12/11/17 23:23 Direct Antiglob Test Negative 12/12/17 20:41 JOANNE, Poly Interpret Negative 12/12/17 20:41 Crossmatch See Detail 12/11/17 23:23
--- NOTE | 2017-12-15 14:07 | Progress Note ---
Assessment and Plan Sepsis, possibly SBP Acute encephalopathy Severe anemia Lactic acidosis, multifactorial Cirrhosis with esophageal varices Rectal bleeding Coagulopathy Metabolic acidosis, multifactorial Respiratory alkalosis Nonoliguric CARMEN secondary to prerenal azotemia due to hypoperfusion ATN vs HRS Moderate protein calorie malnutrition - to begin HD/UF per nephrology - continue conservative volume management at this point now off vasopressors - change BP cuff from left hand to right re: pain - prn analgesia - follow 2D ECHO - continue empiric Antibiotics targeting SBP and CAP (will begin de-escalating as cultures NGTD - stop levaquin today) - continue Aspiration precautions - enteral nutrition as tolerated - s/p small bowel feeding tube - continue chronic home medications, including rifaximin and midodrine - Avoid nephrotoxics and adjust all medications for GFR - GI evaluation ongoing; octreotide if signs of active bleeding; continue lactulose but frequency reduced to bid - continue therapeutic PPI - paracentesis per GI recs - IR for right thoracentesis. Fluid to be sent for pleural fluid analysis ( awaiting procedure) - Ceftriaxone to continue for possible SBP - Follow up cultures (NGTD) - SCDs for VTE prophylaxis in view of GIB and coagulopathy - Supportive transfusions - Nutrition consult placed - PT/OT consult placed - transfer to medical floor on telemetry ..... 35' Subjective Date of service: 12/15/17 Principal diagnosis: CARMEN on CKD; Acute Encephalopathy; Sepsis Syndrome; Anemia Interval history: Patient is seen today for: CARMEN on CKD; Acute Encephalopathy; Sepsis Syndrome; Anemia Seen and examined at bedside; 24hour events reviewed; nursing and respiratory care staff consulted; no adverse overnight events reported to me; resting in bed ; complained of some left arm pain without N/V/SOB or chest pains; No gross bleeding; in room Objective Vital Signs - 12hr 12/15/17 12/15/17 12/15/17 02:10 02:20 02:30 Temperature Pulse Rate 62 56 L 85 Pulse Rate [ From Monitor] Respiratory 14 11 L 13 Rate Blood Pressure 100/58 103/54 103/54 O2 Sat by Pulse 98 98 97 Oximetry 12/15/17 12/15/17 12/15/17 02:40 02:50 03:00 Temperature Pulse Rate 58 L 60 61 Pulse Rate [ From Monitor] Respiratory 11 L 12 14 Rate Blood Pressure 103/54 94/56 101/56 O2 Sat by Pulse 97 97 98 Oximetry 12/15/17 12/15/17 12/15/17 03:10 03:20 03:30 Temperature Pulse Rate 61 60 60 Pulse Rate [ From Monitor] Respiratory 15 13 13 Rate Blood Pressure 101/56 97/56 95/56 O2 Sat by Pulse 98 97 99 Oximetry 12/15/17 12/15/17 12/15/17 03:40 03:50 03:57 Temperature 98.4 F Pulse Rate 62 62 Pulse Rate [ From Monitor] Respiratory 15 14 Rate Blood Pressure 95/56 99/57 O2 Sat by Pulse 97 97 Oximetry 12/15/17 12/15/17 12/15/17 04:00 04:10 04:20 Temperature Pulse Rate 60 59 L 65 Pulse Rate [ 62 From Monitor] Respiratory 14 14 12 Rate Blood Pressure 105/60 105/60 100/51 O2 Sat by Pulse 96 98 97 Oximetry 12/15/17 12/15/17 12/15/17 04:30 04:41 04:51 Temperature Pulse Rate 72 61 65 Pulse Rate [ From Monitor] Respiratory 16 12 18 Rate Blood Pressure 100/51 105/63 O2 Sat by Pulse 97 99 95 Oximetry 12/15/17 12/15/17 12/15/17 05:00 05:11 05:21 Temperature Pulse Rate 66 61 63 Pulse Rate [ From Monitor] Respiratory 16 13 14 Rate Blood Pressure 107/59 107/59 102/60 O2 Sat by Pulse 98 99 96 Oximetry 12/15/17 12/15/17 12/15/17 05:30 05:41 05:51 Temperature Pulse Rate 68 69 70 Pulse Rate [ From Monitor] Respiratory 14 16 14 Rate Blood Pressure 93/56 93/56 100/55 O2 Sat by Pulse 97 94 94 Oximetry 12/15/17 12/15/17 12/15/17 06:00 06:11 06:21 Temperature Pulse Rate 73 71 69 Pulse Rate [ 62 From Monitor] Respiratory 17 15 14 Rate Blood Pressure 101/59 101/59 102/57 O2 Sat by Pulse 95 96 95 Oximetry 12/15/17 12/15/17 12/15/17 06:30 06:41 06:51 Temperature Pulse Rate 69 72 64 Pulse Rate [ From Monitor] Respiratory 15 16 12 Rate Blood Pressure 106/58 106/58 107/60 O2 Sat by Pulse 95 97 96 Oximetry 12/15/17 12/15/17 12/15/17 07:00 07:11 07:21 Temperature Pulse Rate 73 65 69 Pulse Rate [ From Monitor] Respiratory 15 14 14 Rate Blood Pressure 106/57 106/57 93/63 O2 Sat by Pulse 94 98 96 Oximetry 12/15/17 12/15/17 12/15/17 07:30 07:41 07:51 Temperature Pulse Rate 70 64 77 Pulse Rate [ From Monitor] Respiratory 17 14 15 Rate Blood Pressure 100/40 100/40 106/55 O2 Sat by Pulse 97 98 96 Oximetry 12/15/17 12/15/17 12/15/17 08:00 08:11 08:21 Temperature 98.6 F Pulse Rate 67 66 70 Pulse Rate [ From Monitor] Respiratory 14 14 12 Rate Blood Pressure 100/54 100/54 104/53 O2 Sat by Pulse 98 96 98 Oximetry 12/15/17 12/15/17 12/15/17 08:30 08:41 08:51 Temperature Pulse Rate 76 72 66 Pulse Rate [ From Monitor] Respiratory 16 12 12 Rate Blood Pressure 108/55 108/55 95/51 O2 Sat by Pulse 96 99 98 Oximetry 12/15/17 12/15/17 12/15/17 09:00 09:11 09:21 Temperature Pulse Rate 65 75 84 Pulse Rate [ From Monitor] Respiratory 12 15 15 Rate Blood Pressure 92/51 92/51 104/51 O2 Sat by Pulse 96 99 95 Oximetry 12/15/17 12/15/17 12/15/17 09:30 09:41 09:51 Temperature Pulse Rate 73 78 69 Pulse Rate [ From Monitor] Respiratory 15 15 14 Rate Blood Pressure 104/59 104/59 105/58 O2 Sat by Pulse 94 97 97 Oximetry 12/15/17 12/15/17 12/15/17 10:00 10:11 10:21 Temperature Pulse Rate 69 70 76 Pulse Rate [ From Monitor] Respiratory 15 14 16 Rate Blood Pressure 107/54 107/54 112/56 O2 Sat by Pulse 97 98 98 Oximetry 12/15/17 12/15/17 12/15/17 10:30 10:41 10:51 Temperature Pulse Rate 71 77 71 Pulse Rate [ From Monitor] Respiratory 14 17 14 Rate Blood Pressure 100/59 112/56 115/57 O2 Sat by Pulse 90 97 Oximetry 12/15/17 11:00 Temperature Pulse Rate 73 Pulse Rate [ From Monitor] Respiratory 15 Rate Blood Pressure 99/58 O2 Sat by Pulse 95 Oximetry Constitutional: lethargic, other (chronically ill looking elderly AAM, normocephalic and atraumatic) Eyes: non-icteric ENT: oropharynx moist, other (mallampati 2) Neck: supple, no lymphadenopathy, no JVD, other (no thyromegaly) Effort: mildly labored Ascultation: Bilateral: diminished breath sounds (bases), rhonchi (scant) Percussion: Bilateral: dull (bases) Cardiovascular: regular rate and rhythm, other (S1,S2, no murmurms, gallops or rubs) Gastrointestinal: normoactive bowel sounds, soft, non-tender, other (distended) Integumentary: rash Extremities: no cyanosis, no edema, pulses normal, no ischemia or petechiae, cool Neurologic: non-focal exam, pupils equal and round, motor strength normal and ( weak), other (somnolent) Psychiatric: other (somnolent; flat affect) CBC and BMP: 12/15/17 04:51 12/15/17 04:51 ABG, PT/INR, D-dimer: ABG POC ABG pH 7.452 (7.35-7.45) H 12/12/17 09:13 POC ABG pCO2 22.2 (35-45) L 12/12/17 09:13 POC ABG pO2 75 (80-105) L 12/12/17 09:13 POC ABG HCO3 15.5 12/12/17 09:13 POC ABG Total CO2 16 12/12/17 09:13 POC ABG O2 Sat 96 12/12/17 09:13 PT/INR, D-dimer PT 20.5 Sec. (12.2-14.9) H 12/13/17 08:45 INR 1.65 (0.87-1.13) H 12/13/17 08:45 D-Dimer 1215.06 ng/mlDDU (0-234) H 12/12/17 19:50 Abnormal lab findings: Abnormal Labs 12/10/17 12/10/17 12/10/17 13:14 13:14 23:05 RBC 2.31 L Hgb 7.3 L Hct 21.5 L MCH MCHC RDW 17.7 H Plt Count 61 L Lymph % (Auto) [place] % (Auto) Lymph # Seg Neutrophils % Seg Neuts % (Manual) 81.0 H Lymphocytes % (Manual) 11.0 L Lymphocytes # (Manual) 0.6 L PT INR APTT Fibrinogen D-Dimer POC ABG pH POC ABG pCO2 POC ABG pO2 Sodium 136 L Potassium 5.2 H Chloride Carbon Dioxide 15 L BUN 47 H Creatinine 5.2 H Glucose 127 H POC Glucose Lactic Acid Calcium Total Bilirubin 3.50 H Direct Bilirubin AST 71 H Ammonia Lactate Dehydrogenase NT-Pro-B Natriuret Pep Total Protein Albumin 2.6 L Lipase Vitamin B12 Urine WBC (Auto) 10.0 H Urine Creatinine Ur Creatinine 24 Hour Crossmatch 12/10/17 12/10/17 12/10/17 23:14 23:14 23:14 RBC Hgb Hct MCH MCHC RDW Plt Count Lymph % (Auto) [place] % (Auto) Lymph # Seg Neutrophils % Seg Neuts % (Manual) Lymphocytes % (Manual) Lymphocytes # (Manual) PT INR APTT Fibrinogen D-Dimer POC ABG pH POC ABG pCO2 POC ABG pO2 Sodium Potassium Chloride Carbon Dioxide BUN Creatinine Glucose POC Glucose Lactic Acid 2.40 H* Calcium Total Bilirubin Direct Bilirubin AST Ammonia 134.0 H Lactate Dehydrogenase NT-Pro-B Natriuret Pep 9558 H Total Protein Albumin Lipase Vitamin B12 Urine WBC (Auto) Urine Creatinine Ur Creatinine 24 Hour Crossmatch 12/10/17 12/11/17 12/11/17 23:14 00:29 03:33 RBC Hgb Hct MCH MCHC RDW Plt Count Lymph % (Auto) [place] % (Auto) Lymph # Seg Neutrophils % Seg Neuts % (Manual) Lymphocytes % (Manual) Lymphocytes # (Manual) PT INR APTT Fibrinogen D-Dimer POC ABG pH POC ABG pCO2 POC ABG pO2 Sodium Potassium Chloride Carbon Dioxide BUN Creatinine Glucose POC Glucose Lactic Acid 2.80 H* 3.00 H* Calcium Total Bilirubin Direct Bilirubin AST Ammonia Lactate Dehydrogenase NT-Pro-B Natriuret Pep Total Protein Albumin Lipase 7 L Vitamin B12 Urine WBC (Auto) Urine Creatinine Ur Creatinine 24 Hour Crossmatch 12/11/17 12/11/17 12/11/17 04:08 04:34 04:34 RBC Hgb Hct MCH MCHC RDW Plt Count Lymph % (Auto) [place] % (Auto) Lymph # Seg Neutrophils % Seg Neuts % (Manual) Lymphocytes % (Manual) Lymphocytes # (Manual) PT 19.1 H INR 1.51 H APTT 45.7 H Fibrinogen D-Dimer POC ABG pH POC ABG pCO2 POC ABG pO2 Sodium Potassium Chloride Carbon Dioxide BUN Creatinine Glucose POC Glucose 113 H Lactic Acid 3.10 H* Calcium Total Bilirubin Direct Bilirubin AST Ammonia Lactate Dehydrogenase NT-Pro-B Natriuret Pep Total Protein Albumin Lipase Vitamin B12 Urine WBC (Auto) Urine Creatinine Ur Creatinine 24 Hour Crossmatch 12/11/17 12/11/17 12/11/17 06:46 07:26 09:42 RBC Hgb Hct MCH MCHC RDW Plt Count Lymph % (Auto) [place] % (Auto) Lymph # Seg Neutrophils % Seg Neuts % (Manual) Lymphocytes % (Manual) Lymphocytes # (Manual) PT INR APTT Fibrinogen D-Dimer POC ABG pH POC ABG pCO2 POC ABG pO2 Sodium Potassium Chloride Carbon Dioxide BUN Creatinine Glucose POC Glucose Lactic Acid 2.70 H* 2.80 H* 2.90 H* Calcium Total Bilirubin Direct Bilirubin AST Ammonia Lactate Dehydrogenase NT-Pro-B Natriuret Pep Total Protein Albumin Lipase Vitamin B12 Urine WBC (Auto) Urine Creatinine Ur Creatinine 24 Hour Crossmatch 12/11/17 12/11/17 12/11/17 13:12 14:06 23:14 RBC Hgb Hct MCH MCHC RDW Plt Count Lymph % (Auto) [place] % (Auto) Lymph # Seg Neutrophils % Seg Neuts % (Manual) Lymphocytes % (Manual) Lymphocytes # (Manual) PT INR APTT Fibrinogen D-Dimer POC ABG pH POC ABG pCO2 POC ABG pO2 Sodium Potassium Chloride Carbon Dioxide BUN Creatinine Glucose POC Glucose Lactic Acid 3.10 H* 3.10 H* 3.70 H* Calcium Total Bilirubin Direct Bilirubin AST Ammonia Lactate Dehydrogenase NT-Pro-B Natriuret Pep Total Protein Albumin Lipase Vitamin B12 Urine WBC (Auto) Urine Creatinine Ur Creatinine 24 Hour Crossmatch 12/11/17 12/12/17 12/12/17 23:23 03:41 03:41 RBC 2.17 L Hgb 7.0 L Hct 19.9 L* MCH 33 H MCHC 35 H RDW 17.7 H Plt Count 62 L Lymph % (Auto) [place] % (Auto) Lymph # Seg Neutrophils % Seg Neuts % (Manual) 91.0 H Lymphocytes % (Manual) 3.0 L Lymphocytes # (Manual) 0.2 L PT INR APTT Fibrinogen D-Dimer POC ABG pH POC ABG pCO2 POC ABG pO2 Sodium Potassium 5.4 H Chloride Carbon Dioxide 12 L BUN 47 H Creatinine 4.5 H Glucose 103 H POC Glucose Lactic Acid Calcium 8.0 L Total Bilirubin 3.60 H Direct Bilirubin AST 58 H Ammonia Lactate Dehydrogenase NT-Pro-B Natriuret Pep Total Protein 5.9 L Albumin 2.5 L Lipase Vitamin B12 Urine WBC (Auto) Urine Creatinine Ur Creatinine 24 Hour Crossmatch See Detail 12/12/17 12/12/17 12/12/17 07:00 09:13 17:55 RBC 2.06 L Hgb 6.6 L Hct 18.6 L* MCH MCHC 36 H RDW 17.8 H Plt Count 77 L Lymph % (Auto) [place] % (Auto) Lymph # Seg Neutrophils % Seg Neuts % (Manual) Lymphocytes % (Manual) Lymphocytes # (Manual) PT INR APTT Fibrinogen D-Dimer POC ABG pH 7.452 H POC ABG pCO2 22.2 L POC ABG pO2 75 L Sodium Potassium Chloride Carbon Dioxide BUN Creatinine Glucose POC Glucose 119 H Lactic Acid Calcium Total Bilirubin Direct Bilirubin AST Ammonia Lactate Dehydrogenase NT-Pro-B Natriuret Pep Total Protein Albumin Lipase Vitamin B12 Urine WBC (Auto) Urine Creatinine Ur Creatinine 24 Hour Crossmatch 12/12/17 12/12/17 12/12/17 19:50 19:50 19:50 RBC 2.40 L Hgb 7.8 L Hct 21.3 L MCH 33 H MCHC 37 H RDW 16.1 H Plt Count 99 L Lymph % (Auto) [place] % (Auto) Lymph # Seg Neutrophils % Seg Neuts % (Manual) 87.0 H Lymphocytes % (Manual) 5.0 L Lymphocytes # (Manual) 0.3 L PT 21.9 H INR 1.79 H APTT 41.5 H Fibrinogen 128 L D-Dimer 1215.06 H POC ABG pH POC ABG pCO2 POC ABG pO2 Sodium Potassium Chloride Carbon Dioxide BUN Creatinine Glucose POC Glucose Lactic Acid Calcium Total Bilirubin 4.10 H Direct Bilirubin 1.6 H AST Ammonia Lactate Dehydrogenase NT-Pro-B Natriuret Pep Total Protein Albumin Lipase Vitamin B12 Urine WBC (Auto) Urine Creatinine Ur Creatinine 24 Hour Crossmatch 12/12/17 12/12/17 12/12/17 19:50 19:50 23:46 RBC Hgb Hct MCH MCHC RDW Plt Count Lymph % (Auto) [place] % (Auto) Lymph # Seg Neutrophils % Seg Neuts % (Manual) Lymphocytes % (Manual) Lymphocytes # (Manual) PT INR APTT Fibrinogen D-Dimer POC ABG pH POC ABG pCO2 POC ABG pO2 Sodium Potassium Chloride Carbon Dioxide BUN Creatinine Glucose POC Glucose 110 H Lactic Acid Calcium Total Bilirubin Direct Bilirubin AST Ammonia Lactate Dehydrogenase 213 H NT-Pro-B Natriuret Pep Total Protein Albumin Lipase Vitamin B12 1465 H Urine WBC (Auto) Urine Creatinine Ur Creatinine 24 Hour Crossmatch 12/13/17 12/13/17 12/13/17 04:00 04:00 05:12 RBC 2.32 L Hgb 7.4 L Hct 20.8 L MCH MCHC 36 H RDW 16.1 H Plt Count 134 L Lymph % (Auto) 13.1 L [place] % (Auto) 7.9 H Lymph # 0.8 L Seg Neutrophils % 76.3 H Seg Neuts % (Manual) Lymphocytes % (Manual) Lymphocytes # (Manual) PT INR APTT Fibrinogen D-Dimer POC ABG pH POC ABG pCO2 POC ABG pO2 Sodium Potassium Chloride Carbon Dioxide 21 L D BUN 48 H Creatinine 4.6 H Glucose 104 H POC Glucose 134 H Lactic Acid Calcium 8.1 L Total Bilirubin 4.70 H Direct Bilirubin AST 43 H Ammonia Lactate Dehydrogenase NT-Pro-B Natriuret Pep Total Protein 5.8 L Albumin 3.1 L Lipase Vitamin B12 Urine WBC (Auto) Urine Creatinine Ur Creatinine 24 Hour Crossmatch 12/13/17 12/13/17 12/13/17 08:45 12:25 14:03 RBC Hgb Hct MCH MCHC RDW Plt Count Lymph % (Auto) [place] % (Auto) Lymph # Seg Neutrophils % Seg Neuts % (Manual) Lymphocytes % (Manual) Lymphocytes # (Manual) PT 20.5 H INR 1.65 H APTT Fibrinogen D-Dimer POC ABG pH POC ABG pCO2 POC ABG pO2 Sodium Potassium Chloride Carbon Dioxide BUN Creatinine Glucose POC Glucose 112 H Lactic Acid 3.70 H* Calcium Total Bilirubin Direct Bilirubin AST Ammonia Lactate Dehydrogenase NT-Pro-B Natriuret Pep Total Protein Albumin Lipase Vitamin B12 Urine WBC (Auto) Urine Creatinine Ur Creatinine 24 Hour Crossmatch 12/13/17 12/13/17 12/13/17 14:03 18:52 21:09 RBC Hgb Hct MCH MCHC RDW Plt Count Lymph % (Auto) [place] % (Auto) Lymph # Seg Neutrophils % Seg Neuts % (Manual) Lymphocytes % (Manual) Lymphocytes # (Manual) PT INR APTT Fibrinogen D-Dimer POC ABG pH POC ABG pCO2 POC ABG pO2 Sodium Potassium Chloride Carbon Dioxide BUN Creatinine Glucose POC Glucose 110 H Lactic Acid 4.00 H* Calcium Total Bilirubin Direct Bilirubin AST Ammonia 87.0 H Lactate Dehydrogenase NT-Pro-B Natriuret Pep Total Protein Albumin Lipase Vitamin B12 Urine WBC (Auto) Urine Creatinine Ur Creatinine 24 Hour Crossmatch 12/14/17 12/14/17 12/14/17 00:25 03:30 03:30 RBC 2.29 L Hgb 7.3 L Hct 20.7 L MCH MCHC 35 H RDW 16.2 H Plt Count 84 L Lymph % (Auto) 12.8 L [place] % (Auto) 8.3 H Lymph # 0.6 L Seg Neutrophils % 77.2 H Seg Neuts % (Manual) Lymphocytes % (Manual) Lymphocytes # (Manual) PT INR APTT Fibrinogen D-Dimer POC ABG pH POC ABG pCO2 POC ABG pO2 Sodium Potassium Chloride 96.1 L Carbon Dioxide BUN 48 H Creatinine 4.6 H Glucose 125 H POC Glucose 131 H Lactic Acid Calcium 7.9 L Total Bilirubin 4.70 H Direct Bilirubin AST 45 H Ammonia Lactate Dehydrogenase NT-Pro-B Natriuret Pep Total Protein 6.1 L Albumin 3.4 L Lipase Vitamin B12 Urine WBC (Auto) Urine Creatinine Ur Creatinine 24 Hour Crossmatch 12/14/17 12/14/17 12/14/17 05:31 12:26 12:55 RBC Hgb Hct MCH MCHC RDW Plt Count Lymph % (Auto) [place] % (Auto) Lymph # Seg Neutrophils % Seg Neuts % (Manual) Lymphocytes % (Manual) Lymphocytes # (Manual) PT INR APTT Fibrinogen D-Dimer POC ABG pH POC ABG pCO2 POC ABG pO2 Sodium Potassium Chloride Carbon Dioxide BUN Creatinine Glucose POC Glucose 125 H 117 H Lactic Acid 3.40 H* Calcium Total Bilirubin Direct Bilirubin AST Ammonia Lactate Dehydrogenase NT-Pro-B Natriuret Pep Total Protein Albumin Lipase Vitamin B12 Urine WBC (Auto) Urine Creatinine Ur Creatinine 24 Hour Crossmatch 12/14/17 12/14/17 12/14/17 15:26 17:26 18:07 RBC Hgb Hct MCH MCHC RDW Plt Count Lymph % (Auto) [place] % (Auto) Lymph # Seg Neutrophils % Seg Neuts % (Manual) Lymphocytes % (Manual) Lymphocytes # (Manual) PT INR APTT Fibrinogen D-Dimer POC ABG pH POC ABG pCO2 POC ABG pO2 Sodium Potassium Chloride Carbon Dioxide BUN Creatinine Glucose POC Glucose 143 H Lactic Acid 4.00 H* 3.90 H* Calcium Total Bilirubin Direct Bilirubin AST Ammonia Lactate Dehydrogenase NT-Pro-B Natriuret Pep Total Protein Albumin Lipase Vitamin B12 Urine WBC (Auto) Urine Creatinine Ur Creatinine 24 Hour Crossmatch 12/14/17 12/15/17 12/15/17 Unknown 00:08 04:51 RBC 2.27 L Hgb 7.3 L Hct 20.7 L MCH MCHC 35 H RDW 16.1 H Plt Count 92 L Lymph % (Auto) 12.5 L [place] % (Auto) 10.4 H Lymph # 0.6 L Seg Neutrophils % 74.7 H Seg Neuts % (Manual) Lymphocytes % (Manual) Lymphocytes # (Manual) PT INR APTT Fibrinogen D-Dimer POC ABG pH POC ABG pCO2 POC ABG pO2 Sodium Potassium Chloride Carbon Dioxide BUN Creatinine Glucose POC Glucose 124 H Lactic Acid Calcium Total Bilirubin Direct Bilirubin AST Ammonia Lactate Dehydrogenase NT-Pro-B Natriuret Pep Total Protein Albumin Lipase Vitamin B12 Urine WBC (Auto) Urine Creatinine 122.5 H Ur Creatinine 24 Hour 0.3 L Crossmatch 12/15/17 12/15/17 12/15/17 04:51 04:51 05:56 RBC Hgb Hct MCH MCHC RDW Plt Count Lymph % (Auto) [place] % (Auto) Lymph # Seg Neutrophils % Seg Neuts % (Manual) Lymphocytes % (Manual) Lymphocytes # (Manual) PT INR APTT Fibrinogen D-Dimer POC ABG pH POC ABG pCO2 POC ABG pO2 Sodium Potassium 3.5 L Chloride 92.6 L Carbon Dioxide BUN 50 H Creatinine 4.8 H Glucose 141 H POC Glucose 143 H Lactic Acid Calcium 7.9 L Total Bilirubin 3.60 H Direct Bilirubin AST 44 H Ammonia 24.0 L Lactate Dehydrogenase NT-Pro-B Natriuret Pep Total Protein 6.1 L Albumin 3.8 L Lipase Vitamin B12 Urine WBC (Auto) Urine Creatinine Ur Creatinine 24 Hour Crossmatch Chest x-ray: image reviewed Allied health notes reviewed: RT
[2017-12-15] MEDS: SODIUM BICARBONATE 150 MEQ in D5W 1,000 ML IV SCH ×2 (17:06)
[2017-12-15] MEDS: CEPHULAC PO SCH ×3 (17:08→22:08)
--- NOTE | 2017-12-15 18:33 | Progress Note ---
Assessment and Plan - Patient Problems (1) Acute hepatic encephalopathy Current Visit: Yes Status: Acute Plan to address problem: see orders. continue with lactulose, recheck ammonia level. continue same. (2) Anemia Current Visit: Yes Status: Acute Plan to address problem: see orders. Replacement transfusion, if hgb less than 7.0 same as above. Subjective Date of service: 12/15/17 Principal diagnosis: CARMEN on CKD; Acute Encephalopathy; Sepsis Syndrome; Anemia Interval history: Patient seen, restingm labs/notes reviewed. agree with management so far.labs showing consumptive coagulopathy. Patient seen, resting in bed, records/labs reviewed.PLT dropped some.Still no active bleeding. Objective - Constitutional Vitals: Vital Signs - 12hr 12/15/17 12/15/17 12/15/17 06:41 06:51 07:00 Temperature Pulse Rate 72 64 73 Pulse Rate [ From Monitor] Respiratory 16 12 15 Rate Blood Pressure 106/58 107/60 106/57 O2 Sat by Pulse 97 96 94 Oximetry 12/15/17 12/15/17 12/15/17 07:11 07:21 07:30 Temperature Pulse Rate 65 69 70 Pulse Rate [ From Monitor] Respiratory 14 14 17 Rate Blood Pressure 106/57 93/63 100/40 O2 Sat by Pulse 98 96 97 Oximetry 12/15/17 12/15/17 12/15/17 07:41 07:51 08:00 Temperature 98.6 F Pulse Rate 64 77 67 Pulse Rate [ 68 From Monitor] Respiratory 14 15 16 Rate Blood Pressure 100/40 106/55 100/54 O2 Sat by Pulse 98 96 100 Oximetry 12/15/17 12/15/17 12/15/17 08:11 08:21 08:30 Temperature Pulse Rate 66 70 76 Pulse Rate [ From Monitor] Respiratory 14 12 16 Rate Blood Pressure 100/54 104/53 108/55 O2 Sat by Pulse 96 98 96 Oximetry 12/15/17 12/15/17 12/15/17 08:41 08:51 09:00 Temperature Pulse Rate 72 66 65 Pulse Rate [ From Monitor] Respiratory 12 12 12 Rate Blood Pressure 108/55 95/51 92/51 O2 Sat by Pulse 99 98 96 Oximetry 12/15/17 12/15/17 12/15/17 09:11 09:21 09:30 Temperature Pulse Rate 75 84 73 Pulse Rate [ From Monitor] Respiratory 15 15 15 Rate Blood Pressure 92/51 104/51 104/59 O2 Sat by Pulse 99 95 94 Oximetry 12/15/17 12/15/17 12/15/17 09:41 09:51 10:00 Temperature Pulse Rate 78 69 68 Pulse Rate [ From Monitor] Respiratory 15 14 15 Rate Blood Pressure 104/59 105/58 107/54 O2 Sat by Pulse 97 97 97 Oximetry 12/15/17 12/15/17 12/15/17 10:11 10:21 10:30 Temperature Pulse Rate 70 76 71 Pulse Rate [ From Monitor] Respiratory 14 16 14 Rate Blood Pressure 107/54 112/56 100/59 O2 Sat by Pulse 98 98 Oximetry 12/15/17 12/15/17 12/15/17 10:41 10:51 11:00 Temperature Pulse Rate 77 71 73 Pulse Rate [ From Monitor] Respiratory 17 14 15 Rate Blood Pressure 112/56 115/57 99/58 O2 Sat by Pulse 90 97 95 Oximetry 12/15/17 12/15/17 12/15/17 11:11 11:21 11:31 Temperature Pulse Rate 70 77 83 Pulse Rate [ From Monitor] Respiratory 17 20 18 Rate Blood Pressure 99/58 102/54 95/49 O2 Sat by Pulse 93 94 95 Oximetry 12/15/17 12/15/17 12/15/17 11:41 11:51 12:00 Temperature Pulse Rate 73 76 75 Pulse Rate [ 76 From Monitor] Respiratory 15 14 14 Rate Blood Pressure 95/49 104/53 105/57 O2 Sat by Pulse 97 95 96 Oximetry 12/15/17 12/15/17 12/15/17 12:11 12:21 12:30 Temperature Pulse Rate 79 79 81 Pulse Rate [ From Monitor] Respiratory 16 15 15 Rate Blood Pressure 105/57 111/54 103/62 O2 Sat by Pulse 96 95 97 Oximetry 12/15/17 12/15/17 12/15/17 12:41 12:51 13:00 Temperature Pulse Rate 80 77 81 Pulse Rate [ From Monitor] Respiratory 15 16 15 Rate Blood Pressure 105/57 112/61 99/62 O2 Sat by Pulse 95 96 93 Oximetry 12/15/17 12/15/17 12/15/17 13:11 13:20 13:30 Temperature Pulse Rate 79 78 80 Pulse Rate [ From Monitor] Respiratory 14 15 16 Rate Blood Pressure 99/62 105/57 111/58 O2 Sat by Pulse 96 94 96 Oximetry 12/15/17 12/15/17 12/15/17 13:41 13:51 14:00 Temperature Pulse Rate 81 87 78 Pulse Rate [ From Monitor] Respiratory 16 15 15 Rate Blood Pressure 104/62 106/56 106/63 O2 Sat by Pulse 96 97 93 Oximetry 12/15/17 12/15/17 12/15/17 14:11 14:21 14:30 Temperature Pulse Rate 83 87 78 Pulse Rate [ From Monitor] Respiratory 15 15 16 Rate Blood Pressure 106/63 106/59 104/56 O2 Sat by Pulse 94 94 94 Oximetry 12/15/17 12/15/17 12/15/17 14:41 14:51 15:00 Temperature Pulse Rate 80 83 79 Pulse Rate [ From Monitor] Respiratory 20 13 13 Rate Blood Pressure 104/56 107/69 113/59 O2 Sat by Pulse 96 95 74 L Oximetry 12/15/17 12/15/17 12/15/17 15:11 15:21 15:30 Temperature Pulse Rate 75 83 82 Pulse Rate [ From Monitor] Respiratory 14 15 13 Rate Blood Pressure 113/59 105/60 105/59 O2 Sat by Pulse 95 92 96 Oximetry 12/15/17 12/15/17 12/15/17 15:41 15:51 16:00 Temperature Pulse Rate 78 78 80 Pulse Rate [ 72 From Monitor] Respiratory 13 16 17 Rate Blood Pressure 105/59 103/61 99/61 O2 Sat by Pulse 93 96 95 Oximetry 12/15/17 12/15/17 12/15/17 16:11 16:20 16:30 Temperature Pulse Rate 75 70 69 Pulse Rate [ From Monitor] Respiratory 14 11 L 10 L Rate Blood Pressure 99/61 102/52 92/51 O2 Sat by Pulse 94 94 94 Oximetry 12/15/17 12/15/17 12/15/17 16:41 16:51 17:00 Temperature Pulse Rate 74 70 65 Pulse Rate [ From Monitor] Respiratory 12 11 L 12 Rate Blood Pressure 92/51 102/57 103/53 O2 Sat by Pulse 93 97 96 Oximetry 12/15/17 12/15/17 17:11 17:57 Temperature 98.0 F Pulse Rate 62 Pulse Rate [ From Monitor] Respiratory 13 Rate Blood Pressure 103/53 O2 Sat by Pulse 96 Oximetry General appearance: Present: mild distress - EENT Eyes: PERRL, EOM intact ENT: hearing intact, clear oral mucosa Ears: bilateral: normal - Neck Neck: supple, normal ROM - Respiratory Respiratory: bilateral: diminished - Breasts Breasts: deferred - Cardiovascular Rhythm: regular Heart Sounds: Present: S1 & S2. Absent: gallop, rub Extremities: pulses intact, No edema, normal color, Full ROM - Gastrointestinal General gastrointestinal: Present: soft, non-tender, non-distended, normal bowel sounds Rectal Exam: deferred - Genitourinary Male genitourinary: deferred - Integumentary Integumentary: clear, warm, dry - Musculoskeletal Musculoskeletal: 1, strength equal bilaterally - Neurologic Neurologic: moves all extremities - Psychiatric Psychiatric: appropriate mood/affect - Labs CBC & Chem 7: 12/15/17 04:51 12/15/17 04:51 Labs: Abnormal lab results 12/14/17 12/14/17 12/15/17 Range/Units 18:07 Unknown 00:08 RBC (3.65-5.03) M/mm3 Hgb (11.8-15.2) gm/dl Hct (35.5-45.6) % MCHC (32-34) % RDW (13.2-15.2) % Plt Count (140-440) K/mm3 Lymph % (Auto) (13.4-35.0) % [place] % (Auto) (0.0-7.3) % Lymph # (1.2-5.4) K/mm3 Seg Neutrophils % (40.0-70.0) % Potassium (3.6-5.0) mmol/L Chloride (98-107) mmol/L BUN (9-20) mg/dL Creatinine (0.8-1.5) mg/dL Glucose (75-100) mg/dL POC Glucose 143 H 124 H (70-105) Calcium (8.4-10.2) mg/dL Total Bilirubin (0.1-1.2) mg/dL AST (5-40) units/L Ammonia (25-60) umol/L Total Protein (6.3-8.2) g/dL Albumin (3.9-5) g/dL Urine Creatinine 122.5 H (0.1-20.0) mg/dL Ur Creatinine 24 Hour 0.3 L (0.8-2.8) 12/15/17 12/15/17 12/15/17 Range/Units 04:51 04:51 04:51 RBC 2.27 L (3.65-5.03) M/mm3 Hgb 7.3 L (11.8-15.2) gm/dl Hct 20.7 L (35.5-45.6) % MCHC 35 H (32-34) % RDW 16.1 H (13.2-15.2) % Plt Count 92 L (140-440) K/mm3 Lymph % (Auto) 12.5 L (13.4-35.0) % [place] % (Auto) 10.4 H (0.0-7.3) % Lymph # 0.6 L (1.2-5.4) K/mm3 Seg Neutrophils % 74.7 H (40.0-70.0) % Potassium 3.5 L (3.6-5.0) mmol/L Chloride 92.6 L (98-107) mmol/L BUN 50 H (9-20) mg/dL Creatinine 4.8 H (0.8-1.5) mg/dL Glucose 141 H (75-100) mg/dL POC Glucose (70-105) Calcium 7.9 L (8.4-10.2) mg/dL Total Bilirubin 3.60 H (0.1-1.2) mg/dL AST 44 H (5-40) units/L Ammonia 24.0 L (25-60) umol/L Total Protein 6.1 L (6.3-8.2) g/dL Albumin 3.8 L (3.9-5) g/dL Urine Creatinine (0.1-20.0) mg/dL Ur Creatinine 24 Hour (0.8-2.8) 12/15/17 12/15/17 Range/Units 05:56 12:17 RBC (3.65-5.03) M/mm3 Hgb (11.8-15.2) gm/dl Hct (35.5-45.6) % MCHC (32-34) % RDW (13.2-15.2) % Plt Count (140-440) K/mm3 Lymph % (Auto) (13.4-35.0) % [place] % (Auto) (0.0-7.3) % Lymph # (1.2-5.4) K/mm3 Seg Neutrophils % (40.0-70.0) % Potassium (3.6-5.0) mmol/L Chloride (98-107) mmol/L BUN (9-20) mg/dL Creatinine (0.8-1.5) mg/dL Glucose (75-100) mg/dL POC Glucose 143 H 127 H (70-105) Calcium (8.4-10.2) mg/dL Total Bilirubin (0.1-1.2) mg/dL AST (5-40) units/L Ammonia (25-60) umol/L Total Protein (6.3-8.2) g/dL Albumin (3.9-5) g/dL Urine Creatinine (0.1-20.0) mg/dL Ur Creatinine 24 Hour (0.8-2.8)
--- NOTE | 2017-12-16 10:06 | Consultation ---
History of Present Illness - Reason for Consult Consult date: 12/16/17 temporary HD access Requesting physician: YOSHI MAYBERRY - History of Present Illness Patient with liver cirrhosis and hepatorenal syndrome. Vascular surgery consulted for temporary HD access placement. Past History Past Medical History: anemia Medications and Allergies Allergies Allergy/AdvReac Type Severity Reaction Status Date / Time acetazolamide Allergy Unknown Verified 06/13/17 10:58 codeine Allergy Rash Verified 06/13/17 10:57 Home Medications Medication Instructions Recorded Confirmed Last Taken Type Rifaximin [Xifaxan] 550 mg PO BID #60 tablet 06/29/17 12/10/17 Unknown Rx Lactulose [Constulose] 30 ml PO 4XD 12/11/17 12/11/17 Unknown History Pantoprazole [Protonix TAB] 40 mg PO DAILY 12/11/17 12/11/17 Unknown History Sodium Bicarbonate 650 mg PO BID 12/11/17 12/11/17 Unknown History Tamsulosin HCl [Flomax] 1 cap PO DAILY 12/11/17 12/11/17 Unknown History Zinc Sulfate 2 tab PO DAILY 12/11/17 12/11/17 Unknown History Active Meds: Active Medications Acetaminophen (Tylenol) 650 mg PO Q4H PRN PRN Reason: Fever >101 Albumin Human ([place] 25% (Albumin)) 25 gm IV Q12HR RIVKA Last Admin: 12/15/17 22:31 Dose: 25 gm Albumin Human ([place] 25% (Albumin)) 25 gm IV SIDDHARTH PRN PRN Reason: Hypotension Lipase/Protease/Amylase (Pancreaze Dr 10,500 Unit) 1 each FEEDTUBE PRN PRN PRN Reason: For Clogged Feeding Tube Epoetin Teofilo (Procrit) 10,000 unit IV SIDDHARTH PRN PRN Reason: hemodialysis Norepinephrine (Levophed Drip 4 Mg/Ns 250 Ml) 4 mg in 250 mls @ 7.5 mls/hr IV TITR RIVKA; Protocol Last Titration: 12/15/17 06:08 Dose: 0 mcg/min, 0 mls/hr Ceftriaxone Sodium (Rocephin/Ns 1 Gm/50 Ml) 1 gm in 50 mls @ 100 mls/hr IV Q24HR RIVKA; Protocol Stop: 12/18/17 10:29 Last Admin: 12/15/17 11:14 Dose: 100 mls/hr Sodium Bicarbonate 150 meq/ (Dextrose) 1,150 mls @ 75 mls/hr IV DIRECT RIVKA Last Admin: 12/15/17 17:06 Dose: 75 mls/hr Levofloxacin/Dextrose (Levaquin 500mg/100ml) 500 mg in 100 mls @ 100 mls/hr IV Q48HR RIVKA; Protocol Stop: 12/18/17 12:59 Last Admin: 12/14/17 10:03 Dose: 100 mls/hr Sodium Chloride (Nacl 0.9%) 100 mls @ 999 mls/hr IV SIDDHARTH PRN PRN Reason: Hypotension Lactulose (Cephulac) 20 gm PO BID [facility] Last Admin: 12/15/17 22:08 Dose: Not Given Midodrine (Proamatine) 10 mg PO TID [facility] Last Admin: 12/15/17 22:31 Dose: 10 mg Pantoprazole (Protonix) 40 mg FEEDTUBE DAILY [facility] Last Admin: 12/15/17 10:08 Dose: 40 mg Rifaximin (Xifaxan) 550 mg PO BID [facility] Last Admin: 12/15/17 23:06 Dose: 550 mg Simple Syrup (Simple Syrup) 15 ml FEEDTUBE PRN PRN PRN Reason: Hypoglycemia Simple Syrup (Simple Syrup) 30 ml FEEDTUBE PRN PRN PRN Reason: Hypoglycemia Sodium Bicarbonate (Sodium Bicarbonate) 325 mg FEEDTUBE PRN PRN PRN Reason: For Clogged Feeding Tube Exam - Constitutional Vitals: Temp Pulse Resp BP Pulse Ox 99.0 F 72 16 105/50 91 12/16/17 07:29 12/16/17 07:29 12/16/17 07:29 12/16/17 07:29 12/16/17 07:29 Results - Labs CBC & Chem 7: 12/15/17 04:51 12/15/17 04:51 Labs: Abnormal lab results 12/15/17 12/15/17 12/16/17 Range/Units 12:17 23:10 07:04 POC Glucose 127 H 157 H 147 H (70-105) Assessment and Plan hepatorenal syndrome consulted by nephrology for temporary HD access line multiple medical issues including rectal bleed when stable for HD will plan for procedure.
[2017-12-16] MEDS: LEVAQUIN 500MG/100ML 500 MG/100 ML BAG IV SCH (10:52)
[2017-12-16] MEDS: PROAMATINE PO SCH ×3 (10:52→21:41)
[2017-12-16] MEDS: CEPHULAC PO SCH ×2 (10:52→23:38)
[2017-12-16] MEDS: XIFAXAN PO SCH ×2 (10:53→23:38)
[2017-12-16] MEDS: PROTONIX FEEDTUBE SCH (10:53)
[2017-12-16] MEDS: ALBURX 25% (ALBUMIN) IV SCH ×2 (11:23→23:38)
--- NOTE | 2017-12-16 11:37 | Progress Note ---
Assessment and Plan Assessment and plan: NSVT. Pt with two episodes this morning of 6 and 8 beat runs. Check BMP and consult cardiology. Start low dose beta alejo Septic/hypovolemic shock. Resolved. Blood and urine cultures are negative. Severe anemia secondary to acute blood loss. Transfuse PRBCs as needed. Rectal bleeding. Resolved. No new bleeding episodes since admission. GI following. UTI. Urine cx negative Cirrhosis with esophageal varices. GI following. Patient without signs of active bleeding. If any signs of bleeding we will start octreotide. GI with no plans to scope at this time. ? Ascites. Follow-up right upper quadrant ultrasound. Consider paracentesis if positive. Toxic metabolic/hepatic encephalopathy. Patient with elevated ammonia level on admission. Continue to treat with lactulose and underlying causes of sepsis. Ammonia level has normalized and symptoms are improved. Acute on chronic kidney disease. Etiology likely secondary to acute kidney injury from ATN/sepsis/hypotension. Nephrology following. Pleural effusion. IR for right thoracentesis and fluid will be analyzed. History Interval history: Nurse report two runs of Vtach 6 and 8 Hospitalist Physical - Constitutional Vitals: Temp Pulse Resp BP Pulse Ox 99.0 F 72 16 105/50 91 12/16/17 07:29 12/16/17 10:00 12/16/17 10:00 12/16/17 07:29 12/16/17 10:00 General appearance: Present: no acute distress - EENT Eyes: Present: PERRL, EOM intact ENT: hearing intact, clear oral mucosa, dentition normal - Neck Neck: Present: supple, normal ROM - Respiratory Respiratory effort: normal Respiratory: bilateral: CTA - Cardiovascular Rhythm: regular Heart Sounds: Present: S1 & S2. Absent: gallop, rub - Extremities Extremities: no ischemia, No edema, Full ROM - Abdominal General gastrointestinal: soft, non-tender, non-distended, normal bowel sounds - Integumentary Integumentary: Present: clear, warm, dry - Neurologic Neurologic: CNII-XII intact, moves all extremities Results - Labs CBC & Chem 7: 12/15/17 04:51 12/15/17 04:51 Labs: Laboratory Last Values WBC 5.1 K/mm3 (4.5-11.0) 12/15/17 04:51 RBC 2.27 M/mm3 (3.65-5.03) L 12/15/17 04:51 Hgb 7.3 gm/dl (11.8-15.2) L 12/15/17 04:51 Hct 20.7 % (35.5-45.6) L 12/15/17 04:51 MCV 91 fl (84-94) 12/15/17 04:51 MCH 32 pg (28-32) 12/15/17 04:51 MCHC 35 % (32-34) H 12/15/17 04:51 RDW 16.1 % (13.2-15.2) H 12/15/17 04:51 Plt Count 92 K/mm3 (140-440) L 12/15/17 04:51 Lymph % (Auto) 12.5 % (13.4-35.0) L 12/15/17 04:51 [place] % (Auto) 10.4 % (0.0-7.3) H 12/15/17 04:51 Eos % (Auto) 1.7 % (0.0-4.3) 12/15/17 04:51 Baso % (Auto) 0.7 % (0.0-1.8) 12/15/17 04:51 Lymph # 0.6 K/mm3 (1.2-5.4) L 12/15/17 04:51 [place] # 0.5 K/mm3 (0.0-0.8) 12/15/17 04:51 Eos # 0.1 K/mm3 (0.0-0.4) 12/15/17 04:51 Baso # 0.0 K/mm3 (0.0-0.1) 12/15/17 04:51 Add Manual Diff Complete 12/12/17 19:50 Total Counted 100 12/12/17 19:50 Seg Neutrophils % 74.7 % (40.0-70.0) H 12/15/17 04:51 Seg Neuts % (Manual) 87.0 % (40.0-70.0) H 12/12/17 19:50 Band Neutrophils % 0 % 12/12/17 19:50 Lymphocytes % (Manual) 5.0 % (13.4-35.0) L 12/12/17 19:50 Reactive Lymphs % (Man) 0 % 12/12/17 19:50 Monocytes % (Manual) 6.0 % (0.0-7.3) 12/12/17 19:50 Eosinophils % (Manual) 2.0 % (0.0-4.3) 12/12/17 19:50 Basophils % (Manual) 0 % (0.0-1.8) 12/12/17 19:50 Metamyelocytes % 0 % 12/12/17 19:50 Myelocytes % 0 % 12/12/17 19:50 Promyelocytes % 0 % 12/12/17 19:50 Blast Cells % 0 % 12/12/17 19:50 Nucleated RBC % Not Reportable 12/12/17 19:50 Seg Neutrophils # 3.8 K/mm3 (1.8-7.7) 12/15/17 04:51 Seg Neutrophils # Man 4.9 K/mm3 (1.8-7.7) 12/12/17 19:50 Band Neutrophils # 0.0 K/mm3 12/12/17 19:50 Lymphocytes # (Manual) 0.3 K/mm3 (1.2-5.4) L 12/12/17 19:50 Abs React Lymphs (Man) 0.0 K/mm3 12/12/17 19:50 Monocytes # (Manual) 0.3 K/mm3 (0.0-0.8) 12/12/17 19:50 Eosinophils # (Manual) 0.1 K/mm3 (0.0-0.4) 12/12/17 19:50 Basophils # (Manual) 0.0 K/mm3 (0.0-0.1) 12/12/17 19:50 Metamyelocytes # 0.0 K/mm3 12/12/17 19:50 Myelocytes # 0.0 K/mm3 12/12/17 19:50 Promyelocytes # 0.0 K/mm3 12/12/17 19:50 Blast Cells # 0.0 K/mm3 12/12/17 19:50 WBC Morphology Not Reportable 12/12/17 19:50 Hypersegmented Neuts Not Reportable 12/12/17 19:50 Hyposegmented Neuts Not Reportable 12/12/17 19:50 Hypogranular Neuts Not Reportable 12/12/17 19:50 Smudge Cells Not Reportable 12/12/17 19:50 Toxic Granulation Not Reportable 12/12/17 19:50 Toxic Vacuolation Not Reportable 12/12/17 19:50 Dohle Bodies Not Reportable 12/12/17 19:50 Pelger-Huet Anomaly Not Reportable 12/12/17 19:50 Eriberto Rods Not Reportable 12/12/17 19:50 Platelet Estimate Appears decreased 12/12/17 19:50 Clumped Platelets Not Reportable 12/12/17 19:50 Plt Clumps, EDTA Not Reportable 12/12/17 19:50 Large Platelets 1+ 12/12/17 19:50 Giant Platelets Not Reportable 12/12/17 19:50 Platelet Satelliting Not Reportable 12/12/17 19:50 Plt Morphology Comment Not Reportable 12/12/17 19:50 RBC Morphology Not Reportable 12/12/17 19:50 Dimorphic RBCs Not Reportable 12/12/17 19:50 Polychromasia Not Reportable 12/12/17 19:50 Hypochromasia 1+ 12/12/17 19:50 Poikilocytosis Not Reportable 12/12/17 19:50 Anisocytosis Not Reportable 12/12/17 19:50 Microcytosis Not Reportable 12/12/17 19:50 Macrocytosis Not Reportable 12/12/17 19:50 Spherocytes Not Reportable 12/12/17 19:50 Pappenheimer Bodies Not Reportable 12/12/17 19:50 Sickle Cells Not Reportable 12/12/17 19:50 Target Cells Not Reportable 12/12/17 19:50 Tear Drop Cells Not Reportable 12/12/17 19:50 Ovalocytes Not Reportable 12/12/17 19:50 Helmet Cells Not Reportable 12/12/17 19:50 [place] Bodies Not Reportable 12/12/17 19:50 [place] Rings Not Reportable 12/12/17 19:50 [place] Cells 1+ 12/12/17 19:50 Bite Cells Not Reportable 12/12/17 19:50 Crenated Cell Not Reportable 12/12/17 19:50 Elliptocytes Not Reportable 12/12/17 19:50 Acanthocytes (Spur) 1+ 12/12/17 19:50 Rouleaux Not Reportable 12/12/17 19:50 Hemoglobin C Crystals Not Reportable 12/12/17 19:50 Schistocytes Not Reportable 12/12/17 19:50 Malaria parasites Not Reportable 12/12/17 19:50 ESR 18 mm/Hr (0-20) 12/12/17 19:50 [place] Bodies Not Reportable 12/12/17 19:50 Hem Pathologist Commnt No 12/12/17 19:50 PT 20.5 Sec. (12.2-14.9) H 12/13/17 08:45 INR 1.65 (0.87-1.13) H 12/13/17 08:45 APTT 41.5 Sec. (24.2-36.6) H 12/12/17 19:50 Fibrinogen 128 mg/dl (211-480) L 12/12/17 19:50 D-Dimer 1215.06 ng/mlDDU (0-234) H 12/12/17 19:50 Factor VIII:C Activity 178 % (50-180) 12/12/17 20:30 POC ABG pH 7.452 (7.35-7.45) H 12/12/17 09:13 POC ABG pCO2 22.2 (35-45) L 12/12/17 09:13 POC ABG pO2 75 (80-105) L 12/12/17 09:13 POC ABG HCO3 15.5 12/12/17 09:13 POC ABG Total CO2 16 12/12/17 09:13 POC ABG O2 Sat 96 12/12/17 09:13 POC ABG Base Excess -8 12/12/17 09:13 FiO2 21 % 12/12/17 09:13 Sodium 139 mmol/L (137-145) 12/15/17 04:51 Potassium 3.5 mmol/L (3.6-5.0) L 12/15/17 04:51 Chloride 92.6 mmol/L (98-107) L 12/15/17 04:51 Carbon Dioxide 29 mmol/L (22-30) 12/15/17 04:51 Anion Gap 21 mmol/L 12/15/17 04:51 BUN 50 mg/dL (9-20) H 12/15/17 04:51 Creatinine 4.8 mg/dL (0.8-1.5) H 12/15/17 04:51 Estimated GFR 15 ml/min 12/15/17 04:51 BUN/Creatinine Ratio 10 % 12/15/17 04:51 Glucose 141 mg/dL (75-100) H 12/15/17 04:51 POC Glucose 147 (70-105) H 12/16/17 07:04 Lactic Acid 3.90 mmol/L (0.7-2.0) H* 12/14/17 17:26 Calcium 7.9 mg/dL (8.4-10.2) L 12/15/17 04:51 Magnesium 1.80 mg/dL (1.7-2.3) 12/12/17 03:41 Total Bilirubin 3.60 mg/dL (0.1-1.2) H 12/15/17 04:51 Direct Bilirubin 1.6 mg/dL (0-0.2) H 12/12/17 19:50 Indirect Bilirubin 2.5 mg/dL 12/12/17 19:50 AST 44 units/L (5-40) H 12/15/17 04:51 ALT 16 units/L (7-56) 12/15/17 04:51 Alkaline Phosphatase 75 units/L (35-129) 12/15/17 04:51 Ammonia 24.0 umol/L (25-60) L 12/15/17 04:51 Lactate Dehydrogenase 213 units/L (91-180) H 12/12/17 19:50 Total Creatine Kinase 64 units/L (55-170) 12/10/17 23:14 C-Reactive Protein 0.30 mg/dL (0.00-1.30) 12/13/17 14:03 NT-Pro-B Natriuret Pep 9558 pg/mL (0-900) H 12/10/17 23:14 Total Protein 6.1 g/dL (6.3-8.2) L 12/15/17 04:51 Albumin 3.8 g/dL (3.9-5) L 12/15/17 04:51 Albumin/Globulin Ratio 1.7 % 12/15/17 04:51 Lipase 7 units/L (13-60) L 12/10/17 23:14 Vitamin B12 1465 pg/mL (211-911) H 12/12/17 19:50 Folate 14.04 ng/mL (7.3-26.0) 12/12/17 19:50 TSH 3.900 mlU/mL (0.270-4.200) 12/10/17 23:14 Urine Color Yellow (Yellow) 12/10/17 23:05 Urine Turbidity Clear (Clear) 12/10/17 23:05 Urine pH 5.0 (5.0-7.0) 12/10/17 23:05 Ur Specific [place] 1.013 (1.003-1.030) 12/10/17 23:05 Urine Protein <15 mg/dl mg/dL (Negative) 12/10/17 23:05 Urine Glucose (UA) Neg mg/dL (Negative) 12/10/17 23:05 Urine Ketones Neg mg/dL (Negative) 12/10/17 23:05 Urine Blood Neg (Negative) 12/10/17 23:05 Urine Nitrite Neg (Negative) 12/10/17 23:05 Ur Reducing Substances Not Reportable 12/10/17 23:05 Urine Bilirubin Neg (Negative) 12/10/17 23:05 Urine Ictotest Not Reportable 12/10/17 23:05 Urine Urobilinogen < 2.0 mg/dL (<2.0) 12/10/17 23:05 Ur Leukocyte Esterase Sm (Negative) 12/10/17 23:05 Urine WBC (Auto) 10.0 /HPF (0.0-6.0) H 12/10/17 23:05 Urine RBC (Auto) 4.0 /HPF (0.0-6.0) 12/10/17 23:05 U Epithel Cells (Auto) < 1.0 /HPF (0-13.0) 12/10/17 23:05 Urine Mucus Few /HPF 12/10/17 23:05 Urine Total Volume 250 12/14/17 Unknown Urine Creatinine 122.5 mg/dL (0.1-20.0) H 12/14/17 Unknown Ur Creatinine 24 Hour 0.3 (0.8-2.8) L 12/14/17 Unknown Hepatitis A IgM Ab Non-reactive (NonReactive) 12/12/17 19:50 Hep Bs Antigen Non-reactive (Negative) 12/12/17 19:50 Hep B Core IgM Ab Non-reactive (NonReactive) 12/12/17 19:50 Hepatitis C Antibody Non-reactive (NonReactive) 12/12/17 19:50 Blood Type A NEGATIVE 12/11/17 23:23 Antibody Screen Negative 12/11/17 23:23 Direct Antiglob Test Negative 12/12/17 20:41 JOANNE, Poly Interpret Negative 12/12/17 20:41 Crossmatch See Detail 12/11/17 23:23
--- NOTE | 2017-12-16 11:48 | Progress Note ---
Assessment and Plan Impression: * Nonoliguric CARMEN secondary to prerenal azotemia due to hypoperfusion ATN vs HRS * Hyperkalemia * sepsis * Severe anemia secondary to ABL * Rectal bleeding * Cirrhosis w/ esophageal varices * Metabolic acidosis * Hyperbilirubinemia * pyuria Plan: * only 250ml of uop, he has hepatorenal syndrome, will need to start hd * plan to initiate hd leandro for hepatorenal syndrome * awaiting vascular surgery to place line * co2 is improved * likely has low crcl due to liver disease * continue bicarb gtt and iv albumin * strict i/os, avoid nephrotoxins * daily lytes * empiric abx for SBP and UTI * Transfusion pRBC per primary team * Gastroenterology consultation needed * Medical management of electrolytes * Avoid potential nephrotoxic agents * Dose medications for renal function Subjective Date of service: 12/16/17 Principal diagnosis: CARMEN on CKD; Acute Encephalopathy; Sepsis Syndrome; Anemia Interval history: in bed, confused, no acute events Objective - Exam Narrative Exam: General: well-nourished, well-developed, no acute distress Head: Normocephalic, atraumatic Eyes: normal sclera ENT: Mucous membranes are pale and dry Neck: No neck stiffness, no cervical adenopathy Respiratory: Breath sounds equal bilaterally, no wheezing, rales, or rhonchi Cardio: S1 and S2 present, no murmurs, rubs, gallops, capillary refill is delayed Abdomen: Normoactive bowel sounds, soft abdomen, generalized tenderness to palpation present, no rigidity, no guarding or rebound tenderness Chest WALL/Back: No tenderness to palpation of the chest wall, no CVA tenderness with percussion Musc: No pitting edema Skin: No rash Neuro: no facial drooping, normal speech Psych: Normal affect - Vital Signs Vital signs: Vital Signs - 12hr 12/16/17 12/16/17 12/16/17 00:09 00:59 05:58 Temperature 98.7 F 98.9 F Pulse Rate 68 66 63 Pulse Rate [ From Monitor] Respiratory 18 20 Rate Blood Pressure 97/53 Blood Pressure 97/53 97/53 [Left] O2 Sat by Pulse 93 92 96 Oximetry 12/16/17 12/16/17 07:29 10:00 Temperature 99.0 F Pulse Rate 72 Pulse Rate [ 72 From Monitor] Respiratory 16 16 Rate Blood Pressure 105/50 Blood Pressure [Left] O2 Sat by Pulse 91 91 Oximetry - Lab 12/15/17 04:51 12/15/17 04:51 Most recent lab results Calcium 7.9 mg/dL (8.4-10.2) L 12/15/17 04:51 Magnesium 1.80 mg/dL (1.7-2.3) 12/12/17 03:41 Urine Creatinine 122.5 mg/dL (0.1-20.0) H 12/14/17 Unknown
[2017-12-16] MEDS: LOPRESSOR PO SCH ×2 (12:14→21:47)
[2017-12-16 13:22] LABS: Basophils # (Auto) 0.1 K/mm3 (0.0-0.1); Eosinophils # (Auto) 0.1 K/mm3 (0.0-0.4); Eosinophils % (Auto) 2.1 % (0.0-4.3); Monocytes # (Auto) 0.5 K/mm3 (0.0-0.8); Monocytes % (Auto) 9.7 % (0.0-7.3)
[2017-12-16 13:35] LABS: Basophils % (Auto) 1.3 % (0.0-1.8); Hematocrit 20.2 % (35.5-45.6); Hemoglobin 6.9 gm/dl (11.8-15.2); Lymphocytes % (Auto) 13.8 % (13.4-35.0); Mean Corpuscular HGB Conc 34 % (32-34); Mean Corpuscular Hemoglobin 31 pg (28-32); Mean Corpuscular Volume 91 fl (84-94); Mean Platelet Volume 9.6 fl (6-12); Red Blood Count 2.21 M/mm3 (3.65-5.03); Red Cell Distribution Width 16.2 % (13.2-15.2)
[2017-12-16 13:36] LABS: Lymphocytes # (Auto) 0.7 K/mm3 (1.2-5.4)
[2017-12-16 13:45] LABS: Albumin 3.6 g/dL (3.9-5); Calcium 7.8 mg/dL (8.4-10.2)
[2017-12-16 14:15] LABS: Platelet Count 50 K/mm3 (140-440)
[2017-12-16] MEDS: ROCEPHIN/NS 1 GM/50 ML 1 GM/50 ML BAG IV SCH (14:50)
--- NOTE | 2017-12-16 16:25 | Progress Note ---
Assessment and Plan Sepsis, possibly SBP Acute encephalopathy Severe anemia Lactic acidosis, multifactorial Cirrhosis with esophageal varices Rectal bleeding Coagulopathy Metabolic acidosis, multifactorial Respiratory alkalosis Nonoliguric CARMEN secondary to prerenal azotemia due to hypoperfusion ATN vs HRS Moderate protein calorie malnutrition - to begin HD/UF per nephrology (awaiting Vas-cath) - IR for right thoracentesis. Fluid to be sent for pleural fluid analysis ( awaiting procedure) - HD/UF should also reduce pulmonary volume overload - continue conservative volume management at this point now off vasopressors - Transfuse PRBC's for Hb < 7.0 (or as per multimedia manager) - prn analgesia - 2D ECHO with EF 40-45%; no overt pulm HTN - continue empiric Antibiotics targeting SBP and CAP (will begin de-escalating as cultures NGTD - stopped levaquin) - continue Aspiration precautions - enteral nutrition as tolerated (s/p small bowel feeding tube) - continue chronic home medications, including rifaximin and midodrine - Avoid nephrotoxics and adjust all medications for GFR - GI evaluation ongoing; octreotide if signs of active bleeding; continue lactulose but frequency reduced to bid - continue therapeutic PPI - paracentesis per GI recs - Ceftriaxone to continue for possible SBP - Follow up cultures (NGTD) - SCDs for VTE prophylaxis in view of GIB and coagulopathy - Supportive transfusions - Nutrition consult placed - PT/OT consult placed - transferred to medical floor on telemetry ..... 35' Subjective Date of service: 12/16/17 Principal diagnosis: CARMEN on CKD; Acute Encephalopathy; Sepsis Syndrome; Anemia Interval history: Patient is seen today for: CARMEN on CKD; Acute Encephalopathy; Sepsis Syndrome; Anemia Seen and examined at bedside; 24hour events reviewed; nursing and respiratory care staff consulted; no adverse overnight events reported to me; resting in bed ; somnolent; BP's labile without overt hypotension; also Hb < 7.0 but no gross bleeding; tentatively for vas-cath and dialysis Objective Vital Signs - 12hr 12/16/17 12/16/17 12/16/17 05:58 07:29 10:00 Temperature 98.9 F 99.0 F Pulse Rate 63 72 68 Pulse Rate [ 72 From Monitor] Respiratory 20 16 16 Rate Blood Pressure 105/50 Blood Pressure 97/53 [Left] O2 Sat by Pulse 96 91 91 Oximetry 12/16/17 12/16/17 11:23 12:14 Temperature 98.9 F Pulse Rate 71 Pulse Rate [ From Monitor] Respiratory 16 Rate Blood Pressure 85/40 85/40 Blood Pressure [Left] O2 Sat by Pulse 91 Oximetry Constitutional: lethargic, other (chronically ill looking elderly AAM, normocephalic and atraumatic) Eyes: non-icteric ENT: oropharynx moist, other (mallampati 2) Neck: supple, no lymphadenopathy, no JVD, other (no thyromegaly) Effort: mildly labored Ascultation: Bilateral: diminished breath sounds (bases), rhonchi (scant) Percussion: Bilateral: dull (bases) Cardiovascular: regular rate and rhythm, other (S1,S2, no murmurms, gallops or rubs) Gastrointestinal: normoactive bowel sounds, soft, non-tender, other (distended) Integumentary: rash Extremities: no cyanosis, no edema, pulses normal, no ischemia or petechiae, cool Neurologic: non-focal exam, pupils equal and round, motor strength normal and ( weak), other (somnolent) Psychiatric: other (somnolent; flat affect) CBC and BMP: 12/17/17 05:27 12/17/17 05:27 ABG, PT/INR, D-dimer: ABG POC ABG pH 7.452 (7.35-7.45) H 12/12/17 09:13 POC ABG pCO2 22.2 (35-45) L 12/12/17 09:13 POC ABG pO2 75 (80-105) L 12/12/17 09:13 POC ABG HCO3 15.5 12/12/17 09:13 POC ABG Total CO2 16 12/12/17 09:13 POC ABG O2 Sat 96 12/12/17 09:13 PT/INR, D-dimer PT 20.5 Sec. (12.2-14.9) H 12/13/17 08:45 INR 1.65 (0.87-1.13) H 12/13/17 08:45 D-Dimer 1215.06 ng/mlDDU (0-234) H 12/12/17 19:50 Abnormal lab findings: Abnormal Labs 12/10/17 12/10/17 12/10/17 13:14 13:14 23:05 RBC 2.31 L Hgb 7.3 L Hct 21.5 L MCH MCHC RDW 17.7 H Plt Count 61 L Lymph % (Auto) [place] % (Auto) Lymph # Seg Neutrophils % Seg Neuts % (Manual) 81.0 H Lymphocytes % (Manual) 11.0 L Lymphocytes # (Manual) 0.6 L PT INR APTT Fibrinogen D-Dimer POC ABG pH POC ABG pCO2 POC ABG pO2 Sodium 136 L Potassium 5.2 H Chloride Carbon Dioxide 15 L BUN 47 H Creatinine 5.2 H Glucose 127 H POC Glucose Lactic Acid Calcium Total Bilirubin 3.50 H Direct Bilirubin AST 71 H Ammonia Lactate Dehydrogenase NT-Pro-B Natriuret Pep Total Protein Albumin 2.6 L Lipase Vitamin B12 Urine WBC (Auto) 10.0 H Urine Creatinine Ur Creatinine 24 Hour Crossmatch 12/10/17 12/10/17 12/10/17 23:14 23:14 23:14 RBC Hgb Hct MCH MCHC RDW Plt Count Lymph % (Auto) [place] % (Auto) Lymph # Seg Neutrophils % Seg Neuts % (Manual) Lymphocytes % (Manual) Lymphocytes # (Manual) PT INR APTT Fibrinogen D-Dimer POC ABG pH POC ABG pCO2 POC ABG pO2 Sodium Potassium Chloride Carbon Dioxide BUN Creatinine Glucose POC Glucose Lactic Acid 2.40 H* Calcium Total Bilirubin Direct Bilirubin AST Ammonia 134.0 H Lactate Dehydrogenase NT-Pro-B Natriuret Pep 9558 H Total Protein Albumin Lipase Vitamin B12 Urine WBC (Auto) Urine Creatinine Ur Creatinine 24 Hour Crossmatch 12/10/17 12/11/17 12/11/17 23:14 00:29 03:33 RBC Hgb Hct MCH MCHC RDW Plt Count Lymph % (Auto) [place] % (Auto) Lymph # Seg Neutrophils % Seg Neuts % (Manual) Lymphocytes % (Manual) Lymphocytes # (Manual) PT INR APTT Fibrinogen D-Dimer POC ABG pH POC ABG pCO2 POC ABG pO2 Sodium Potassium Chloride Carbon Dioxide BUN Creatinine Glucose POC Glucose Lactic Acid 2.80 H* 3.00 H* Calcium Total Bilirubin Direct Bilirubin AST Ammonia Lactate Dehydrogenase NT-Pro-B Natriuret Pep Total Protein Albumin Lipase 7 L Vitamin B12 Urine WBC (Auto) Urine Creatinine Ur Creatinine 24 Hour Crossmatch 12/11/17 12/11/17 12/11/17 04:08 04:34 04:34 RBC Hgb Hct MCH MCHC RDW Plt Count Lymph % (Auto) [place] % (Auto) Lymph # Seg Neutrophils % Seg Neuts % (Manual) Lymphocytes % (Manual) Lymphocytes # (Manual) PT 19.1 H INR 1.51 H APTT 45.7 H Fibrinogen D-Dimer POC ABG pH POC ABG pCO2 POC ABG pO2 Sodium Potassium Chloride Carbon Dioxide BUN Creatinine Glucose POC Glucose 113 H Lactic Acid 3.10 H* Calcium Total Bilirubin Direct Bilirubin AST Ammonia Lactate Dehydrogenase NT-Pro-B Natriuret Pep Total Protein Albumin Lipase Vitamin B12 Urine WBC (Auto) Urine Creatinine Ur Creatinine 24 Hour Crossmatch 12/11/17 12/11/17 12/11/17 06:46 07:26 09:42 RBC Hgb Hct MCH MCHC RDW Plt Count Lymph % (Auto) [place] % (Auto) Lymph # Seg Neutrophils % Seg Neuts % (Manual) Lymphocytes % (Manual) Lymphocytes # (Manual) PT INR APTT Fibrinogen D-Dimer POC ABG pH POC ABG pCO2 POC ABG pO2 Sodium Potassium Chloride Carbon Dioxide BUN Creatinine Glucose POC Glucose Lactic Acid 2.70 H* 2.80 H* 2.90 H* Calcium Total Bilirubin Direct Bilirubin AST Ammonia Lactate Dehydrogenase NT-Pro-B Natriuret Pep Total Protein Albumin Lipase Vitamin B12 Urine WBC (Auto) Urine Creatinine Ur Creatinine 24 Hour Crossmatch 12/11/17 12/11/17 12/11/17 13:12 14:06 23:14 RBC Hgb Hct MCH MCHC RDW Plt Count Lymph % (Auto) [place] % (Auto) Lymph # Seg Neutrophils % Seg Neuts % (Manual) Lymphocytes % (Manual) Lymphocytes # (Manual) PT INR APTT Fibrinogen D-Dimer POC ABG pH POC ABG pCO2 POC ABG pO2 Sodium Potassium Chloride Carbon Dioxide BUN Creatinine Glucose POC Glucose Lactic Acid 3.10 H* 3.10 H* 3.70 H* Calcium Total Bilirubin Direct Bilirubin AST Ammonia Lactate Dehydrogenase NT-Pro-B Natriuret Pep Total Protein Albumin Lipase Vitamin B12 Urine WBC (Auto) Urine Creatinine Ur Creatinine 24 Hour Crossmatch 12/11/17 12/12/17 12/12/17 23:23 03:41 03:41 RBC 2.17 L Hgb 7.0 L Hct 19.9 L* MCH 33 H MCHC 35 H RDW 17.7 H Plt Count 62 L Lymph % (Auto) [place] % (Auto) Lymph # Seg Neutrophils % Seg Neuts % (Manual) 91.0 H Lymphocytes % (Manual) 3.0 L Lymphocytes # (Manual) 0.2 L PT INR APTT Fibrinogen D-Dimer POC ABG pH POC ABG pCO2 POC ABG pO2 Sodium Potassium 5.4 H Chloride Carbon Dioxide 12 L BUN 47 H Creatinine 4.5 H Glucose 103 H POC Glucose Lactic Acid Calcium 8.0 L Total Bilirubin 3.60 H Direct Bilirubin AST 58 H Ammonia Lactate Dehydrogenase NT-Pro-B Natriuret Pep Total Protein 5.9 L Albumin 2.5 L Lipase Vitamin B12 Urine WBC (Auto) Urine Creatinine Ur Creatinine 24 Hour Crossmatch See Detail 12/12/17 12/12/17 12/12/17 07:00 09:13 17:55 RBC 2.06 L Hgb 6.6 L Hct 18.6 L* MCH MCHC 36 H RDW 17.8 H Plt Count 77 L Lymph % (Auto) [place] % (Auto) Lymph # Seg Neutrophils % Seg Neuts % (Manual) Lymphocytes % (Manual) Lymphocytes # (Manual) PT INR APTT Fibrinogen D-Dimer POC ABG pH 7.452 H POC ABG pCO2 22.2 L POC ABG pO2 75 L Sodium Potassium Chloride Carbon Dioxide BUN Creatinine Glucose POC Glucose 119 H Lactic Acid Calcium Total Bilirubin Direct Bilirubin AST Ammonia Lactate Dehydrogenase NT-Pro-B Natriuret Pep Total Protein Albumin Lipase Vitamin B12 Urine WBC (Auto) Urine Creatinine Ur Creatinine 24 Hour Crossmatch 12/12/17 12/12/17 12/12/17 19:50 19:50 19:50 RBC 2.40 L Hgb 7.8 L Hct 21.3 L MCH 33 H MCHC 37 H RDW 16.1 H Plt Count 99 L Lymph % (Auto) [place] % (Auto) Lymph # Seg Neutrophils % Seg Neuts % (Manual) 87.0 H Lymphocytes % (Manual) 5.0 L Lymphocytes # (Manual) 0.3 L PT 21.9 H INR 1.79 H APTT 41.5 H Fibrinogen 128 L D-Dimer 1215.06 H POC ABG pH POC ABG pCO2 POC ABG pO2 Sodium Potassium Chloride Carbon Dioxide BUN Creatinine Glucose POC Glucose Lactic Acid Calcium Total Bilirubin 4.10 H Direct Bilirubin 1.6 H AST Ammonia Lactate Dehydrogenase NT-Pro-B Natriuret Pep Total Protein Albumin Lipase Vitamin B12 Urine WBC (Auto) Urine Creatinine Ur Creatinine 24 Hour Crossmatch 12/12/17 12/12/17 12/12/17 19:50 19:50 23:46 RBC Hgb Hct MCH MCHC RDW Plt Count Lymph % (Auto) [place] % (Auto) Lymph # Seg Neutrophils % Seg Neuts % (Manual) Lymphocytes % (Manual) Lymphocytes # (Manual) PT INR APTT Fibrinogen D-Dimer POC ABG pH POC ABG pCO2 POC ABG pO2 Sodium Potassium Chloride Carbon Dioxide BUN Creatinine Glucose POC Glucose 110 H Lactic Acid Calcium Total Bilirubin Direct Bilirubin AST Ammonia Lactate Dehydrogenase 213 H NT-Pro-B Natriuret Pep Total Protein Albumin Lipase Vitamin B12 1465 H Urine WBC (Auto) Urine Creatinine Ur Creatinine 24 Hour Crossmatch 12/13/17 12/13/17 12/13/17 04:00 04:00 05:12 RBC 2.32 L Hgb 7.4 L Hct 20.8 L MCH MCHC 36 H RDW 16.1 H Plt Count 134 L Lymph % (Auto) 13.1 L [place] % (Auto) 7.9 H Lymph # 0.8 L Seg Neutrophils % 76.3 H Seg Neuts % (Manual) Lymphocytes % (Manual) Lymphocytes # (Manual) PT INR APTT Fibrinogen D-Dimer POC ABG pH POC ABG pCO2 POC ABG pO2 Sodium Potassium Chloride Carbon Dioxide 21 L D BUN 48 H Creatinine 4.6 H Glucose 104 H POC Glucose 134 H Lactic Acid Calcium 8.1 L Total Bilirubin 4.70 H Direct Bilirubin AST 43 H Ammonia Lactate Dehydrogenase NT-Pro-B Natriuret Pep Total Protein 5.8 L Albumin 3.1 L Lipase Vitamin B12 Urine WBC (Auto) Urine Creatinine Ur Creatinine 24 Hour Crossmatch 12/13/17 12/13/17 12/13/17 08:45 12:25 14:03 RBC Hgb Hct MCH MCHC RDW Plt Count Lymph % (Auto) [place] % (Auto) Lymph # Seg Neutrophils % Seg Neuts % (Manual) Lymphocytes % (Manual) Lymphocytes # (Manual) PT 20.5 H INR 1.65 H APTT Fibrinogen D-Dimer POC ABG pH POC ABG pCO2 POC ABG pO2 Sodium Potassium Chloride Carbon Dioxide BUN Creatinine Glucose POC Glucose 112 H Lactic Acid 3.70 H* Calcium Total Bilirubin Direct Bilirubin AST Ammonia Lactate Dehydrogenase NT-Pro-B Natriuret Pep Total Protein Albumin Lipase Vitamin B12 Urine WBC (Auto) Urine Creatinine Ur Creatinine 24 Hour Crossmatch 12/13/17 12/13/17 12/13/17 14:03 18:52 21:09 RBC Hgb Hct MCH MCHC RDW Plt Count Lymph % (Auto) [place] % (Auto) Lymph # Seg Neutrophils % Seg Neuts % (Manual) Lymphocytes % (Manual) Lymphocytes # (Manual) PT INR APTT Fibrinogen D-Dimer POC ABG pH POC ABG pCO2 POC ABG pO2 Sodium Potassium Chloride Carbon Dioxide BUN Creatinine Glucose POC Glucose 110 H Lactic Acid 4.00 H* Calcium Total Bilirubin Direct Bilirubin AST Ammonia 87.0 H Lactate Dehydrogenase NT-Pro-B Natriuret Pep Total Protein Albumin Lipase Vitamin B12 Urine WBC (Auto) Urine Creatinine Ur Creatinine 24 Hour Crossmatch 12/14/17 12/14/17 12/14/17 00:25 03:30 03:30 RBC 2.29 L Hgb 7.3 L Hct 20.7 L MCH MCHC 35 H RDW 16.2 H Plt Count 84 L Lymph % (Auto) 12.8 L [place] % (Auto) 8.3 H Lymph # 0.6 L Seg Neutrophils % 77.2 H Seg Neuts % (Manual) Lymphocytes % (Manual) Lymphocytes # (Manual) PT INR APTT Fibrinogen D-Dimer POC ABG pH POC ABG pCO2 POC ABG pO2 Sodium Potassium Chloride 96.1 L Carbon Dioxide BUN 48 H Creatinine 4.6 H Glucose 125 H POC Glucose 131 H Lactic Acid Calcium 7.9 L Total Bilirubin 4.70 H Direct Bilirubin AST 45 H Ammonia Lactate Dehydrogenase NT-Pro-B Natriuret Pep Total Protein 6.1 L Albumin 3.4 L Lipase Vitamin B12 Urine WBC (Auto) Urine Creatinine Ur Creatinine 24 Hour Crossmatch 12/14/17 12/14/17 12/14/17 05:31 12:26 12:55 RBC Hgb Hct MCH MCHC RDW Plt Count Lymph % (Auto) [place] % (Auto) Lymph # Seg Neutrophils % Seg Neuts % (Manual) Lymphocytes % (Manual) Lymphocytes # (Manual) PT INR APTT Fibrinogen D-Dimer POC ABG pH POC ABG pCO2 POC ABG pO2 Sodium Potassium Chloride Carbon Dioxide BUN Creatinine Glucose POC Glucose 125 H 117 H Lactic Acid 3.40 H* Calcium Total Bilirubin Direct Bilirubin AST Ammonia Lactate Dehydrogenase NT-Pro-B Natriuret Pep Total Protein Albumin Lipase Vitamin B12 Urine WBC (Auto) Urine Creatinine Ur Creatinine 24 Hour Crossmatch 12/14/17 12/14/17 12/14/17 15:26 17:26 18:07 RBC Hgb Hct MCH MCHC RDW Plt Count Lymph % (Auto) [place] % (Auto) Lymph # Seg Neutrophils % Seg Neuts % (Manual) Lymphocytes % (Manual) Lymphocytes # (Manual) PT INR APTT Fibrinogen D-Dimer POC ABG pH POC ABG pCO2 POC ABG pO2 Sodium Potassium Chloride Carbon Dioxide BUN Creatinine Glucose POC Glucose 143 H Lactic Acid 4.00 H* 3.90 H* Calcium Total Bilirubin Direct Bilirubin AST Ammonia Lactate Dehydrogenase NT-Pro-B Natriuret Pep Total Protein Albumin Lipase Vitamin B12 Urine WBC (Auto) Urine Creatinine Ur Creatinine 24 Hour Crossmatch 12/14/17 12/15/17 12/15/17 Unknown 00:08 04:51 RBC 2.27 L Hgb 7.3 L Hct 20.7 L MCH MCHC 35 H RDW 16.1 H Plt Count 92 L Lymph % (Auto) 12.5 L [place] % (Auto) 10.4 H Lymph # 0.6 L Seg Neutrophils % 74.7 H Seg Neuts % (Manual) Lymphocytes % (Manual) Lymphocytes # (Manual) PT INR APTT Fibrinogen D-Dimer POC ABG pH POC ABG pCO2 POC ABG pO2 Sodium Potassium Chloride Carbon Dioxide BUN Creatinine Glucose POC Glucose 124 H Lactic Acid Calcium Total Bilirubin Direct Bilirubin AST Ammonia Lactate Dehydrogenase NT-Pro-B Natriuret Pep Total Protein Albumin Lipase Vitamin B12 Urine WBC (Auto) Urine Creatinine 122.5 H Ur Creatinine 24 Hour 0.3 L Crossmatch 12/15/17 12/15/17 12/15/17 04:51 04:51 05:56 RBC Hgb Hct MCH MCHC RDW Plt Count Lymph % (Auto) [place] % (Auto) Lymph # Seg Neutrophils % Seg Neuts % (Manual) Lymphocytes % (Manual) Lymphocytes # (Manual) PT INR APTT Fibrinogen D-Dimer POC ABG pH POC ABG pCO2 POC ABG pO2 Sodium Potassium 3.5 L Chloride 92.6 L Carbon Dioxide BUN 50 H Creatinine 4.8 H Glucose 141 H POC Glucose 143 H Lactic Acid Calcium 7.9 L Total Bilirubin 3.60 H Direct Bilirubin AST 44 H Ammonia 24.0 L Lactate Dehydrogenase NT-Pro-B Natriuret Pep Total Protein 6.1 L Albumin 3.8 L Lipase Vitamin B12 Urine WBC (Auto) Urine Creatinine Ur Creatinine 24 Hour Crossmatch 12/15/17 12/15/17 12/16/17 12:17 23:10 07:04 RBC Hgb Hct MCH MCHC RDW Plt Count Lymph % (Auto) [place] % (Auto) Lymph # Seg Neutrophils % Seg Neuts % (Manual) Lymphocytes % (Manual) Lymphocytes # (Manual) PT INR APTT Fibrinogen D-Dimer POC ABG pH POC ABG pCO2 POC ABG pO2 Sodium Potassium Chloride Carbon Dioxide BUN Creatinine Glucose POC Glucose 127 H 157 H 147 H Lactic Acid Calcium Total Bilirubin Direct Bilirubin AST Ammonia Lactate Dehydrogenase NT-Pro-B Natriuret Pep Total Protein Albumin Lipase Vitamin B12 Urine WBC (Auto) Urine Creatinine Ur Creatinine 24 Hour Crossmatch 12/16/17 12/16/17 12/16/17 11:35 12:37 12:37 RBC 2.21 L Hgb 6.9 L Hct 20.2 L MCH MCHC RDW 16.2 H Plt Count 50 L Lymph % (Auto) [place] % (Auto) 9.7 H Lymph # 0.7 L Seg Neutrophils % 73.1 H Seg Neuts % (Manual) Lymphocytes % (Manual) Lymphocytes # (Manual) PT INR APTT Fibrinogen D-Dimer POC ABG pH POC ABG pCO2 POC ABG pO2 Sodium Potassium Chloride 88.2 L Carbon Dioxide BUN 52 H Creatinine 5.5 H Glucose 107 H POC Glucose 134 H Lactic Acid Calcium 7.8 L Total Bilirubin 2.60 H Direct Bilirubin AST 49 H Ammonia Lactate Dehydrogenase NT-Pro-B Natriuret Pep Total Protein Albumin 3.6 L Lipase Vitamin B12 Urine WBC (Auto) Urine Creatinine Ur Creatinine 24 Hour Crossmatch Allied health notes reviewed: RT
[2017-12-16] MEDS ORDERED: NACL 0.9% 500 ML 500 ML IV SCH (19:42)
--- NOTE | 2017-12-16 19:42 | Progress Note ---
Assessment and Plan - Patient Problems (1) Acute hepatic encephalopathy Current Visit: Yes Status: Acute Plan to address problem: see orders. continue with lactulose, recheck ammonia level. continue same. (2) Anemia Current Visit: Yes Status: Acute Plan to address problem: see orders. Replacement transfusion, if hgb less than 7.0 same as above. see notes above. Subjective Date of service: 12/16/17 Principal diagnosis: CARMEN on CKD; Acute Encephalopathy; Sepsis Syndrome; Anemia Interval history: Patient seen, restingm labs/notes reviewed. agree with management so far.labs showing consumptive coagulopathy. Patient seen, resting in bed, records/labs reviewed.PLT dropped some.Still no active bleeding. Patient seen/examined, records/labs / notes reviewed, hgb low at 6.9, will rec replacement transfusion,with HD tomorrow if planned to proceed with HD. Objective - Constitutional Vitals: Vital Signs - 12hr 12/16/17 12/16/17 12/16/17 10:00 11:23 12:14 Temperature 98.9 F Pulse Rate 68 71 Pulse Rate [ 72 From Monitor] Respiratory 16 16 Rate Blood Pressure 85/40 85/40 O2 Sat by Pulse 91 91 Oximetry 12/16/17 12/16/17 15:38 19:23 Temperature 98.6 F Pulse Rate 70 Pulse Rate [ 72 From Monitor] Respiratory 16 18 Rate Blood Pressure 86/47 O2 Sat by Pulse 91 Oximetry General appearance: Present: mild distress - EENT Eyes: PERRL, EOM intact ENT: hearing intact, clear oral mucosa Ears: bilateral: normal - Neck Neck: supple, normal ROM - Respiratory Respiratory effort: normal Respiratory: bilateral: CTA - Breasts Breasts: deferred - Cardiovascular Rhythm: regular Heart Sounds: Present: S1 & S2. Absent: gallop, rub Extremities: pulses intact, No edema, normal color, Full ROM - Gastrointestinal General gastrointestinal: Present: soft, non-tender, non-distended, normal bowel sounds Rectal Exam: deferred - Genitourinary Male genitourinary: deferred - Integumentary Integumentary: clear, warm, dry - Musculoskeletal Musculoskeletal: 1, strength equal bilaterally - Neurologic Neurologic: moves all extremities - Psychiatric Psychiatric: appropriate mood/affect - Labs CBC & Chem 7: 12/16/17 12:37 12/16/17 12:37 Labs: Abnormal lab results 12/15/17 12/16/17 12/16/17 Range/Units 23:10 07:04 11:35 RBC (3.65-5.03) M/mm3 Hgb (11.8-15.2) gm/dl Hct (35.5-45.6) % RDW (13.2-15.2) % Plt Count (140-440) K/mm3 [place] % (Auto) (0.0-7.3) % Lymph # (1.2-5.4) K/mm3 Seg Neutrophils % (40.0-70.0) % Chloride (98-107) mmol/L BUN (9-20) mg/dL Creatinine (0.8-1.5) mg/dL Glucose (75-100) mg/dL POC Glucose 157 H 147 H 134 H (70-105) Calcium (8.4-10.2) mg/dL Total Bilirubin (0.1-1.2) mg/dL AST (5-40) units/L Albumin (3.9-5) g/dL 12/16/17 12/16/17 12/16/17 Range/Units 12:37 12:37 18:06 RBC 2.21 L (3.65-5.03) M/mm3 Hgb 6.9 L (11.8-15.2) gm/dl Hct 20.2 L (35.5-45.6) % RDW 16.2 H (13.2-15.2) % Plt Count 50 L (140-440) K/mm3 [place] % (Auto) 9.7 H (0.0-7.3) % Lymph # 0.7 L (1.2-5.4) K/mm3 Seg Neutrophils % 73.1 H (40.0-70.0) % Chloride 88.2 L (98-107) mmol/L BUN 52 H (9-20) mg/dL Creatinine 5.5 H (0.8-1.5) mg/dL Glucose 107 H (75-100) mg/dL POC Glucose 133 H (70-105) Calcium 7.8 L (8.4-10.2) mg/dL Total Bilirubin 2.60 H (0.1-1.2) mg/dL AST 49 H (5-40) units/L Albumin 3.6 L (3.9-5) g/dL
[2017-12-17] MEDS: SODIUM BICARBONATE 150 MEQ in D5W 1,000 ML IV SCH (02:10)
[2017-12-17 06:29] LABS: Basophils % (Auto) 0.3 % (0.0-1.8); Eosinophils # (Auto) 0.1 K/mm3 (0.0-0.4); Eosinophils % (Auto) 1.7 % (0.0-4.3); Hemoglobin 6.6 gm/dl (11.8-15.2); Lymphocytes # (Auto) 0.7 K/mm3 (1.2-5.4); Lymphocytes % (Auto) 12.6 % (13.4-35.0); Mean Corpuscular HGB Conc 35 % (32-34); Mean Corpuscular Hemoglobin 32 pg (28-32); Mean Corpuscular Volume 91 fl (84-94); Monocytes # (Auto) 0.5 K/mm3 (0.0-0.8); Monocytes % (Auto) 9.6 % (0.0-7.3); Red Cell Distribution Width 16.5 % (13.2-15.2)
[2017-12-17 06:31] LABS: Platelet Count 65 K/mm3 (140-440)
[2017-12-17 06:32] LABS: Hematocrit 19.2 % (35.5-45.6)
[2017-12-17 06:49] LABS: Albumin 3.7 g/dL (3.9-5); Calcium 7.7 mg/dL (8.4-10.2)
--- NOTE | 2017-12-17 09:00 | Progress Note ---
Assessment and Plan Assessment and plan: NSVT. Pt with two episodes this morning of 6 and 8 beat runs. Check BMP and consult cardiology. Start low dose beta alejo Septic/hypovolemic shock. Resolved. Blood and urine cultures are negative. Acute blood loss anemia. Transfuse PRBCs as needed. Hgb 6.6 today. Transfuse again Rectal bleeding. Resolved. No new bleeding episodes since admission. GI reported no plans to scope. We will recall. UTI. Urine cx negative Cirrhosis with esophageal varices. GI following. Patient without signs of active bleeding. If any signs of bleeding we will start octreotide. GI with no plans to scope at this time. ? Ascites. Follow-up right upper quadrant ultrasound. Consider paracentesis if positive. Toxic metabolic/hepatic encephalopathy. Patient with elevated ammonia level on admission. Continue to treat with lactulose and underlying causes of sepsis. Ammonia level has normalized and symptoms are improved. Acute on chronic kidney disease. Etiology likely secondary to acute kidney injury from ATN/sepsis/hypotension. Nephrology following. Hepatorenal syndrome. Nephrology to initiate HD. HD catheter placed by Vascular Pleural effusion. IR for right thoracentesis and fluid will be analyzed. Awaiting procedure. History Interval history: Nurse reported two runs of Vtach 6 and 8 beats respectively yesterday. Hospitalist Physical - Constitutional Vitals: Temp Pulse Resp BP Pulse Ox 98.0 F 66 18 99/53 90 12/17/17 04:00 12/17/17 04:00 12/17/17 04:00 12/17/17 04:00 12/17/17 04:00 General appearance: Present: no acute distress - EENT Eyes: Present: PERRL, EOM intact ENT: hearing intact, clear oral mucosa, dentition normal - Neck Neck: Present: supple, normal ROM - Respiratory Respiratory effort: normal Respiratory: bilateral: CTA - Cardiovascular Rhythm: regular Heart Sounds: Present: S1 & S2. Absent: gallop, rub - Extremities Extremities: no ischemia, No edema, Full ROM - Abdominal General gastrointestinal: soft, non-tender, non-distended, normal bowel sounds - Integumentary Integumentary: Present: clear, warm, dry - Neurologic Neurologic: CNII-XII intact, moves all extremities Results - Labs CBC & Chem 7: 12/17/17 05:27 12/17/17 05:27 Labs: Laboratory Last Values WBC 5.2 K/mm3 (4.5-11.0) 12/17/17 05:27 RBC 2.10 M/mm3 (3.65-5.03) L 12/17/17 05:27 Hgb 6.6 gm/dl (11.8-15.2) L 12/17/17 05:27 Hct 19.2 % (35.5-45.6) L* 12/17/17 05:27 MCV 91 fl (84-94) 12/17/17 05:27 MCH 32 pg (28-32) 12/17/17 05:27 MCHC 35 % (32-34) H 12/17/17 05:27 RDW 16.5 % (13.2-15.2) H 12/17/17 05:27 Plt Count 65 K/mm3 (140-440) L 12/17/17 05:27 Lymph % (Auto) 12.6 % (13.4-35.0) L 12/17/17 05:27 [place] % (Auto) 9.6 % (0.0-7.3) H 12/17/17 05:27 Eos % (Auto) 1.7 % (0.0-4.3) 12/17/17 05:27 Baso % (Auto) 0.3 % (0.0-1.8) 12/17/17 05:27 Lymph # 0.7 K/mm3 (1.2-5.4) L 12/17/17 05:27 [place] # 0.5 K/mm3 (0.0-0.8) 12/17/17 05:27 Eos # 0.1 K/mm3 (0.0-0.4) 12/17/17 05:27 Baso # 0.0 K/mm3 (0.0-0.1) 12/17/17 05:27 Add Manual Diff Complete 12/12/17 19:50 Total Counted 100 12/12/17 19:50 Seg Neutrophils % 75.8 % (40.0-70.0) H 12/17/17 05:27 Seg Neuts % (Manual) 87.0 % (40.0-70.0) H 12/12/17 19:50 Band Neutrophils % 0 % 12/12/17 19:50 Lymphocytes % (Manual) 5.0 % (13.4-35.0) L 12/12/17 19:50 Reactive Lymphs % (Man) 0 % 12/12/17 19:50 Monocytes % (Manual) 6.0 % (0.0-7.3) 12/12/17 19:50 Eosinophils % (Manual) 2.0 % (0.0-4.3) 12/12/17 19:50 Basophils % (Manual) 0 % (0.0-1.8) 12/12/17 19:50 Metamyelocytes % 0 % 12/12/17 19:50 Myelocytes % 0 % 12/12/17 19:50 Promyelocytes % 0 % 12/12/17 19:50 Blast Cells % 0 % 12/12/17 19:50 Nucleated RBC % Not Reportable 12/12/17 19:50 Seg Neutrophils # 3.9 K/mm3 (1.8-7.7) 12/17/17 05:27 Seg Neutrophils # Man 4.9 K/mm3 (1.8-7.7) 12/12/17 19:50 Band Neutrophils # 0.0 K/mm3 12/12/17 19:50 Lymphocytes # (Manual) 0.3 K/mm3 (1.2-5.4) L 12/12/17 19:50 Abs React Lymphs (Man) 0.0 K/mm3 12/12/17 19:50 Monocytes # (Manual) 0.3 K/mm3 (0.0-0.8) 12/12/17 19:50 Eosinophils # (Manual) 0.1 K/mm3 (0.0-0.4) 12/12/17 19:50 Basophils # (Manual) 0.0 K/mm3 (0.0-0.1) 12/12/17 19:50 Metamyelocytes # 0.0 K/mm3 12/12/17 19:50 Myelocytes # 0.0 K/mm3 12/12/17 19:50 Promyelocytes # 0.0 K/mm3 12/12/17 19:50 Blast Cells # 0.0 K/mm3 12/12/17 19:50 WBC Morphology Not Reportable 12/12/17 19:50 Hypersegmented Neuts Not Reportable 12/12/17 19:50 Hyposegmented Neuts Not Reportable 12/12/17 19:50 Hypogranular Neuts Not Reportable 12/12/17 19:50 Smudge Cells Not Reportable 12/12/17 19:50 Toxic Granulation Not Reportable 12/12/17 19:50 Toxic Vacuolation Not Reportable 12/12/17 19:50 Dohle Bodies Not Reportable 12/12/17 19:50 Pelger-Huet Anomaly Not Reportable 12/12/17 19:50 Eriberto Rods Not Reportable 12/12/17 19:50 Platelet Estimate Appears decreased 12/12/17 19:50 Clumped Platelets Not Reportable 12/12/17 19:50 Plt Clumps, EDTA Not Reportable 12/12/17 19:50 Large Platelets 1+ 12/12/17 19:50 Giant Platelets Not Reportable 12/12/17 19:50 Platelet Satelliting Not Reportable 12/12/17 19:50 Plt Morphology Comment Not Reportable 12/12/17 19:50 RBC Morphology Not Reportable 12/12/17 19:50 Dimorphic RBCs Not Reportable 12/12/17 19:50 Polychromasia Not Reportable 12/12/17 19:50 Hypochromasia 1+ 12/12/17 19:50 Poikilocytosis Not Reportable 12/12/17 19:50 Anisocytosis Not Reportable 12/12/17 19:50 Microcytosis Not Reportable 12/12/17 19:50 Macrocytosis Not Reportable 12/12/17 19:50 Spherocytes Not Reportable 12/12/17 19:50 Pappenheimer Bodies Not Reportable 12/12/17 19:50 Sickle Cells Not Reportable 12/12/17 19:50 Target Cells Not Reportable 12/12/17 19:50 Tear Drop Cells Not Reportable 12/12/17 19:50 Ovalocytes Not Reportable 12/12/17 19:50 Helmet Cells Not Reportable 12/12/17 19:50 D[place]inst[place] Bodies Not Reportable 12/12/17 19:50 Arlee Rings Not Reportable 12/12/17 19:50 Clune Cells 1+ 12/12/17 19:50 Bite Cells Not Reportable 12/12/17 19:50 Crenated Cell Not Reportable 12/12/17 19:50 Elliptocytes Not Reportable 12/12/17 19:50 Acanthocytes (Spur) 1+ 12/12/17 19:50 Rouleaux Not Reportable 12/12/17 19:50 Hemoglobin C Crystals Not Reportable 12/12/17 19:50 Schistocytes Not Reportable 12/12/17 19:50 Malaria parasites Not Reportable 12/12/17 19:50 ESR 18 mm/Hr (0-20) 12/12/17 19:50 Lyndon Bodies Not Reportable 12/12/17 19:50 Hem Pathologist Commnt No 12/12/17 19:50 PT 20.5 Sec. (12.2-14.9) H 12/13/17 08:45 INR 1.65 (0.87-1.13) H 12/13/17 08:45 APTT 41.5 Sec. (24.2-36.6) H 12/12/17 19:50 Fibrinogen 128 mg/dl (211-480) L 12/12/17 19:50 D-Dimer 1215.06 ng/mlDDU (0-234) H 12/12/17 19:50 Factor VIII:C Activity 178 % (50-180) 12/12/17 20:30 POC ABG pH 7.452 (7.35-7.45) H 12/12/17 09:13 POC ABG pCO2 22.2 (35-45) L 12/12/17 09:13 POC ABG pO2 75 (80-105) L 12/12/17 09:13 POC ABG HCO3 15.5 12/12/17 09:13 POC ABG Total CO2 16 12/12/17 09:13 POC ABG O2 Sat 96 12/12/17 09:13 POC ABG Base Excess -8 12/12/17 09:13 FiO2 21 % 12/12/17 09:13 Sodium 135 mmol/L (137-145) L 12/17/17 05:27 Potassium 3.4 mmol/L (3.6-5.0) L 12/17/17 05:27 Chloride 84.9 mmol/L (98-107) L 12/17/17 05:27 Carbon Dioxide 33 mmol/L (22-30) H 12/17/17 05:27 Anion Gap 21 mmol/L 12/17/17 05:27 BUN 53 mg/dL (9-20) H 12/17/17 05:27 Creatinine 5.9 mg/dL (0.8-1.5) H 12/17/17 05:27 Estimated GFR 12 ml/min 12/17/17 05:27 BUN/Creatinine Ratio 9 % 12/17/17 05:27 Glucose 95 mg/dL (75-100) 12/17/17 05:27 POC Glucose 110 (70-105) H 12/17/17 06:11 Lactic Acid 3.90 mmol/L (0.7-2.0) H* 12/14/17 17:26 Calcium 7.7 mg/dL (8.4-10.2) L 12/17/17 05:27 Magnesium 1.80 mg/dL (1.7-2.3) 12/12/17 03:41 Total Bilirubin 2.70 mg/dL (0.1-1.2) H 12/17/17 05:27 Direct Bilirubin 1.6 mg/dL (0-0.2) H 12/12/17 19:50 Indirect Bilirubin 2.5 mg/dL 12/12/17 19:50 AST 50 units/L (5-40) H 12/17/17 05:27 ALT 17 units/L (7-56) 12/17/17 05:27 Alkaline Phosphatase 105 units/L (35-129) 12/17/17 05:27 Ammonia 52.0 umol/L (25-60) 12/16/17 12:37 Lactate Dehydrogenase 213 units/L (91-180) H 12/12/17 19:50 Total Creatine Kinase 64 units/L (55-170) 12/10/17 23:14 C-Reactive Protein 0.30 mg/dL (0.00-1.30) 12/13/17 14:03 NT-Pro-B Natriuret Pep 9558 pg/mL (0-900) H 12/10/17 23:14 Total Protein 6.2 g/dL (6.3-8.2) L 12/17/17 05:27 Albumin 3.7 g/dL (3.9-5) L 12/17/17 05:27 Albumin/Globulin Ratio 1.5 % 12/17/17 05:27 Lipase 7 units/L (13-60) L 12/10/17 23:14 Vitamin B12 1465 pg/mL (211-911) H 12/12/17 19:50 Folate 14.04 ng/mL (7.3-26.0) 12/12/17 19:50 TSH 2.560 mlU/mL (0.270-4.200) 12/16/17 12:37 Urine Color Yellow (Yellow) 12/10/17 23:05 Urine Turbidity Clear (Clear) 12/10/17 23:05 Urine pH 5.0 (5.0-7.0) 12/10/17 23:05 Ur Specific Mcloud 1.013 (1.003-1.030) 12/10/17 23:05 Urine Protein <15 mg/dl mg/dL (Negative) 12/10/17 23:05 Urine Glucose (UA) Neg mg/dL (Negative) 12/10/17 23:05 Urine Ketones Neg mg/dL (Negative) 12/10/17 23:05 Urine Blood Neg (Negative) 12/10/17 23:05 Urine Nitrite Neg (Negative) 12/10/17 23:05 Ur Reducing Substances Not Reportable 12/10/17 23:05 Urine Bilirubin Neg (Negative) 12/10/17 23:05 Urine Ictotest Not Reportable 12/10/17 23:05 Urine Urobilinogen < 2.0 mg/dL (<2.0) 12/10/17 23:05 Ur Leukocyte Esterase Sm (Negative) 12/10/17 23:05 Urine WBC (Auto) 10.0 /HPF (0.0-6.0) H 12/10/17 23:05 Urine RBC (Auto) 4.0 /HPF (0.0-6.0) 12/10/17 23:05 U Epithel Cells (Auto) < 1.0 /HPF (0-13.0) 12/10/17 23:05 Urine Mucus Few /HPF 12/10/17 23:05 Urine Total Volume 250 12/14/17 Unknown Urine Creatinine 122.5 mg/dL (0.1-20.0) H 12/14/17 Unknown Ur Creatinine 24 Hour 0.3 (0.8-2.8) L 12/14/17 Unknown Hepatitis A IgM Ab Non-reactive (NonReactive) 12/12/17 19:50 Hep Bs Antigen Non-reactive (Negative) 12/12/17 19:50 Hep B Core IgM Ab Non-reactive (NonReactive) 12/12/17 19:50 Hepatitis C Antibody Non-reactive (NonReactive) 12/12/17 19:50 Blood Type A NEGATIVE 12/16/17 20:45 Antibody Screen Negative 12/16/17 20:45 Direct Antiglob Test Negative 12/12/17 20:41 JOANNE, Poly Interpret Negative 12/12/17 20:41 Crossmatch See Detail 12/16/17 20:45
--- NOTE | 2017-12-17 09:54 | Consultation ---
History of Present Illness Consult date: 12/17/17 History of present illness: This is a 62 year old male with renal failure, liver disease, chronic thrombocytopenia and chronic anemia who was admitted to this hospital 12/11 with hypotension, generalized weakness and worsening renal failure. A cardiac consultation was requested for ectopy seen on telemetry. Review of his strips shows a short burst of non-sustained ventricular tachycardia. There were no reports of chest pain, shortness of breath or palpitations. His latest echocardiogram showed a well-preserved left ventricular systolic function with ejection fraction 55-60%. Medications and Allergies Allergies Allergy/AdvReac Type Severity Reaction Status Date / Time acetazolamide Allergy Unknown Verified 06/13/17 10:58 codeine Allergy Rash Verified 06/13/17 10:57 Home Medications Medication Instructions Recorded Confirmed Last Taken Type Rifaximin [Xifaxan] 550 mg PO BID #60 tablet 06/29/17 12/10/17 Unknown Rx Lactulose [Constulose] 30 ml PO 4XD 12/11/17 12/11/17 Unknown History Pantoprazole [Protonix TAB] 40 mg PO DAILY 12/11/17 12/11/17 Unknown History Sodium Bicarbonate 650 mg PO BID 12/11/17 12/11/17 Unknown History Tamsulosin HCl [Flomax] 1 cap PO DAILY 12/11/17 12/11/17 Unknown History Zinc Sulfate 2 tab PO DAILY 12/11/17 12/11/17 Unknown History Active Meds: Active Medications Acetaminophen (Tylenol) 650 mg PO Q4H PRN PRN Reason: Fever >101 Albumin Human ([place] 25% (Albumin)) 25 gm IV Q12HR [facility] Last Admin: 12/16/17 23:38 Dose: 25 gm Albumin Human ([place] 25% (Albumin)) 25 gm IV SIDDHARTH PRN PRN Reason: Hypotension Lipase/Protease/Amylase (Pancreaze Dr 10,500 Unit) 1 each FEEDTUBE PRN PRN PRN Reason: For Clogged Feeding Tube Epoetin Teofilo (Procrit) 10,000 unit IV SIDDHARTH PRN PRN Reason: hemodialysis Ceftriaxone Sodium (Rocephin/Ns 1 Gm/50 Ml) 1 gm in 50 mls @ 100 mls/hr IV Q24HR [facility]; Protocol Stop: 12/18/17 10:29 Last Admin: 12/16/17 14:50 Dose: 100 mls/hr Sodium Bicarbonate 150 meq/ (Dextrose) 1,150 mls @ 75 mls/hr IV DIRECT [facility] Last Admin: 12/17/17 02:10 Dose: 75 mls/hr Levofloxacin/Dextrose (Levaquin 500mg/100ml) 500 mg in 100 mls @ 100 mls/hr IV Q48HR [facility]; Protocol Stop: 12/18/17 12:59 Last Admin: 12/16/17 10:52 Dose: 100 mls/hr Sodium Chloride (Nacl 0.9%) 100 mls @ 999 mls/hr IV SIDDHARTH PRN PRN Reason: Hypotension Lactulose (Cephulac) 20 gm PO BID [facility] Last Admin: 12/16/17 23:38 Dose: 20 gm Metoprolol Tartrate (Lopressor) 12.5 mg PO BID [facility] Last Admin: 12/16/17 21:47 Dose: Not Given Midodrine (Proamatine) 10 mg PO TID [facility] Last Admin: 12/16/17 21:41 Dose: 10 mg Pantoprazole (Protonix) 40 mg FEEDTUBE DAILY [facility] Last Admin: 12/16/17 10:53 Dose: Not Given Rifaximin (Xifaxan) 550 mg PO BID [facility] Last Admin: 12/16/17 23:38 Dose: 550 mg Simple Syrup (Simple Syrup) 15 ml FEEDTUBE PRN PRN PRN Reason: Hypoglycemia Simple Syrup (Simple Syrup) 30 ml FEEDTUBE PRN PRN PRN Reason: Hypoglycemia Sodium Bicarbonate (Sodium Bicarbonate) 325 mg FEEDTUBE PRN PRN PRN Reason: For Clogged Feeding Tube Physical Examination Vital Signs Temp Pulse Resp BP Pulse Ox 98.1 F 67 20 83/49 98 12/10/17 12:36 12/10/17 12:36 12/10/17 12:36 12/10/17 12:36 12/10/17 12:36 General appearance: no acute distress Cardiac: Positive: Reg Rate and Rhythm Results 12/17/17 05:27 12/17/17 05:27 Cardiac Enzymes 12/16/17 12/17/17 Range/Units 12:37 05:27 AST 49 H 50 H (5-40) units/L CBC 12/16/17 12/17/17 Range/Units 12:37 05:27 WBC 5.3 5.2 (4.5-11.0) K/mm3 RBC 2.21 L 2.10 L (3.65-5.03) M/mm3 Hgb 6.9 L 6.6 L (11.8-15.2) gm/dl Hct 20.2 L 19.2 L* (35.5-45.6) % Plt Count 50 L 65 L (140-440) K/mm3 Lymph # 0.7 L 0.7 L (1.2-5.4) K/mm3 [place] # 0.5 0.5 (0.0-0.8) K/mm3 Eos # 0.1 0.1 (0.0-0.4) K/mm3 Baso # 0.1 0.0 (0.0-0.1) K/mm3 Comprehensive Metabolic Panel 12/16/17 12/17/17 Range/Units 12:37 05:27 Sodium 137 135 L (137-145) mmol/L Potassium 3.6 3.4 L (3.6-5.0) mmol/L Chloride 88.2 L 84.9 L (98-107) mmol/L Carbon Dioxide 30 33 H (22-30) mmol/L BUN 52 H 53 H (9-20) mg/dL Creatinine 5.5 H 5.9 H (0.8-1.5) mg/dL Glucose 107 H 95 (75-100) mg/dL Calcium 7.8 L 7.7 L (8.4-10.2) mg/dL AST 49 H 50 H (5-40) units/L ALT 18 17 (7-56) units/L Alkaline Phosphatase 121 105 (35-129) units/L Total Protein 6.3 6.2 L (6.3-8.2) g/dL Albumin 3.6 L 3.7 L (3.9-5) g/dL Assessment and Plan Anemia s/p transfusion of PRBCs Thromocytopenia, chronic Chronic renal failure Hyperkalemia Hx of Cirrhosis with bleeding esophageal varices requiring TIPS 11/2016 NSVT on telemetry Normal LV systolic function, EF 55-60% on echocardiogram 05/2017.
[2017-12-17 10:05] LABS: INR 1.99 (0.87-1.13)
[2017-12-17] MEDS ORDERED: HEPARIN/NS 5000 UNIT/500ML(CATH LAB) 500 ML IR ONE (12:18)
[2017-12-17] MEDS ORDERED: VERSED ONE (12:18)
[2017-12-17] MEDS ORDERED: XYLOCAINE 1%/ EPI 1:100,000 INFILTRATI ONE (12:19)
[2017-12-17] MEDS: SUBLIMAZE ONE ×2 (12:29→12:40)
--- NOTE | 2017-12-17 12:30 | Progress Note ---
Assessment and Plan Impression: * Nonoliguric CARMEN secondary to prerenal azotemia due to hypoperfusion ATN vs HRS * Hyperkalemia * sepsis * Severe anemia secondary to ABL * Rectal bleeding * Cirrhosis w/ esophageal varices * Metabolic acidosis * Hyperbilirubinemia * pyuria Plan: * patient remains oliguric and renal function getting worse . Suspect hepatorenal syndrome, * D/W patient's at length . She is agreeable for dialysis * Will start hd. D/W Dr. Richey * co2 is improved with bicarbonate drip . Discontinue bicarbonate drip * likely has low crcl due to liver disease * strict i/os, avoid nephrotoxins * daily lytes * empiric abx for SBP and UTI * Transfusion pRBC per primary team * Gastroenterology consultation needed * Medical management of electrolytes * Avoid potential nephrotoxic agents * Dose medications for renal function * He will also need outpatient dialysis arrangement Subjective Date of service: 12/17/17 Principal diagnosis: CARMEN on CKD; Acute Encephalopathy; Sepsis Syndrome; Anemia Interval history: patient is arousable but confused . Denies SOB . at bedside Objective - Vital Signs Vital signs: Vital Signs - 12hr 12/17/17 12/17/17 12/17/17 04:00 08:01 08:56 Temperature 98.0 F 98.2 F Pulse Rate 66 60 62 Respiratory 18 18 Rate Blood Pressure 105/58 Blood Pressure 99/53 [Left] O2 Sat by Pulse 90 92 Oximetry - General Appearance General appearance: well-developed, well-nourished, appears stated age EENT: PERRL, mucous membranes moist Neck: no JVD, no thyromegaly, no carotid bruit, supple Respiratory: Present: Clear to Ascultation Cardiology: regular, normal heart rate Gastrointestinal: normal, normoactive bowel sounds Integumentary: other (1+ edema ) - Lab 12/17/17 05:27 12/17/17 05:27 Most recent lab results Calcium 7.7 mg/dL (8.4-10.2) L 12/17/17 05:27 Magnesium 1.80 mg/dL (1.7-2.3) 12/12/17 03:41 Urine Creatinine 122.5 mg/dL (0.1-20.0) H 12/14/17 Unknown
[2017-12-17] MEDS: HEPARIN 10,000 UNITS/10 ML ONE ×2 (12:40→12:41)
--- NOTE | 2017-12-17 12:47 | Operative Report ---
Operative Report Operative Report: Exam: Ultrasound and fluoroscopic guided placement of tunneled hemodialysis catheter Clinical indication: End-stage renal disease Date: 12/17/2017 Procedure: Following an explanation of the risks, benefits and alternatives; written informed consent was obtained from the patient's secondary to patient's altered mental status. The patient was brought to the angiographic suite and placed in supine position on the examination table. He has had prior intervention on his right neck and therefore ultrasound evaluation of his left neck was performed. This demonstrated a patent left internal jugular vein. The patient's left neck and chest wall were prepped and draped in usual sterile fashion. 1% lidocaine was used for anesthesia. Under ultrasound guidance, the left internal jugular vein was cannulated with a 7 cm 18-gauge needle. A 0.035 guidewire was advanced centrally under fluoroscopy. The guidewire was advanced into the IVC to document intravenous positioning. The needle was removed. An appropriate catheter exit site was chosen along the lateral right chest wall. 1% lidocaine was used for anesthesia at the catheter exit site along the tunnel tract. A Bard 27 cm glidepath tunneled hemodialysis catheter was then tunneled antegrade from the catheter exit site to the venotomy site. Following serial dilation over the guidewire under fluoroscopy, as 15 [place] peel-away sheath was placed over the guidewire under fluoroscopy and advanced centrally under fluoroscopy. The guidewire and trocar were removed. The catheter was placed with peel-away sheath and peel-away sheath removed. The tip was positioned in the proximal right atrium. Both ports flushed and aspirated easily and were then locked with appropriate volumes of heparin. The venotomy was closed using 4-0 Vicryl suture and Dermabond. 4-0 Vicryl suture and Dermabond will are so applied to the catheter exit site The patient tolerated the procedure well. There was no immediate post procedure complications. Fentanyl alone was used for pain control. Conscious sedation was not utilized secondary to patient's altered mental status. Continuous cardiopulmonary monitoring was utilized. Impression: 1) Ultrasound and fluoroscopic guided placement of 27 cm glidepath tunneled hemodialysis catheter via the left internal jugular vein.
[2017-12-17] MEDS ORDERED: NACL 0.9% 100 ML IV PRN (13:02)
--- NOTE | 2017-12-17 14:43 | Progress Note ---
Assessment and Plan Sepsis, possibly SBP Acute encephalopathy Severe anemia Lactic acidosis, multifactorial Cirrhosis with esophageal varices Rectal bleeding Coagulopathy Metabolic acidosis, multifactorial Respiratory alkalosis Nonoliguric CARMEN secondary to prerenal azotemia due to hypoperfusion ATN vs HRS Moderate protein calorie malnutrition - IR for right thoracentesis. Fluid to be sent for pleural fluid analysis ( awaiting procedure) - HD/UF per nephrology prescription ( should also reduce pulmonary volume overload) - continue conservative volume management at this point now off vasopressors - Transfuse PRBC's for Hb < 7.0 (or as per electroneurodiagnostic technician) - prn analgesia - 2D ECHO with EF 40-45%; no overt pulm HTN - continue empiric Antibiotics targeting SBP and CAP (will begin de-escalating as cultures NGTD - stopped levaquin) - continue Aspiration precautions - enteral nutrition as tolerated (s/p small bowel feeding tube) - continue chronic home medications, including rifaximin and midodrine - Avoid nephrotoxics and adjust all medications for GFR - GI evaluation ongoing; octreotide if signs of active bleeding; continue lactulose but frequency reduced to bid - continue therapeutic PPI - paracentesis per GI recs - Ceftriaxone to continue for possible SBP - Follow up cultures (NGTD) - SCDs for VTE prophylaxis in view of GIB and coagulopathy - Supportive transfusions - Nutrition consult placed - PT/OT consult placed - continue to monitor closely on telemetry ..... 25' Subjective Date of service: 12/17/17 Principal diagnosis: CARMEN on CKD; Acute Encephalopathy; Sepsis Syndrome; Anemia Interval history: Patient is seen today for: CARMEN on CKD; Acute Encephalopathy; Sepsis Syndrome; Anemia Seen and examined at bedside; 24hour events reviewed; nursing and respiratory care staff consulted; no adverse overnight events reported to me; resting in bed ; denies acute chest pains or increased SOB; tolerating dialysis well so far; No N/V/F/C Objective Vital Signs - 12hr 12/17/17 12/17/17 12/17/17 04:00 08:01 08:56 Temperature 98.0 F 98.2 F Pulse Rate 66 60 62 Respiratory 18 18 Rate Blood Pressure 105/58 Blood Pressure 99/53 [Left] O2 Sat by Pulse 90 92 Oximetry Constitutional: lethargic, other (chronically ill looking elderly AAM, normocephalic and atraumatic) Eyes: non-icteric ENT: oropharynx moist, other (mallampati 2) Neck: supple, no lymphadenopathy, no JVD, other (no thyromegaly) Effort: mildly labored Ascultation: Bilateral: diminished breath sounds (bases), rhonchi (scant) Percussion: Bilateral: not dull, dull (bases) Cardiovascular: regular rate and rhythm, other (S1,S2, no murmurms, gallops or rubs) Gastrointestinal: normoactive bowel sounds, soft, non-tender, other (distended) Integumentary: rash Extremities: no cyanosis, no edema, pulses normal, no ischemia or petechiae, cool Neurologic: non-focal exam, pupils equal and round, motor strength normal and ( weak), other (somnolent) Psychiatric: other (somnolent; flat affect) CBC and BMP: 12/21/17 05:26 12/19/17 05:55 ABG, PT/INR, D-dimer: ABG POC ABG pH 7.452 (7.35-7.45) H 12/12/17 09:13 POC ABG pCO2 22.2 (35-45) L 12/12/17 09:13 POC ABG pO2 75 (80-105) L 12/12/17 09:13 POC ABG HCO3 15.5 12/12/17 09:13 POC ABG Total CO2 16 12/12/17 09:13 POC ABG O2 Sat 96 12/12/17 09:13 PT/INR, D-dimer PT 23.9 Sec. (12.2-14.9) H 12/17/17 09:34 INR 1.99 (0.87-1.13) H 12/17/17 09:34 D-Dimer 1215.06 ng/mlDDU (0-234) H 12/12/17 19:50 Abnormal lab findings: Abnormal Labs 12/10/17 12/10/17 12/10/17 13:14 13:14 23:05 RBC 2.31 L Hgb 7.3 L Hct 21.5 L MCH MCHC RDW 17.7 H Plt Count 61 L Lymph % (Auto) Holmes % (Auto) Lymph # Seg Neutrophils % Seg Neuts % (Manual) 81.0 H Lymphocytes % (Manual) 11.0 L Lymphocytes # (Manual) 0.6 L PT INR APTT Fibrinogen D-Dimer POC ABG pH POC ABG pCO2 POC ABG pO2 Sodium 136 L Potassium 5.2 H Chloride Carbon Dioxide 15 L BUN 47 H Creatinine 5.2 H Glucose 127 H POC Glucose Lactic Acid Calcium Total Bilirubin 3.50 H Direct Bilirubin AST 71 H Ammonia Lactate Dehydrogenase NT-Pro-B Natriuret Pep Total Protein Albumin 2.6 L Lipase Vitamin B12 Urine WBC (Auto) 10.0 H Urine Creatinine Ur Creatinine 24 Hour Crossmatch 12/10/17 12/10/17 12/10/17 23:14 23:14 23:14 RBC Hgb Hct MCH MCHC RDW Plt Count Lymph % (Auto) Holmes % (Auto) Lymph # Seg Neutrophils % Seg Neuts % (Manual) Lymphocytes % (Manual) Lymphocytes # (Manual) PT INR APTT Fibrinogen D-Dimer POC ABG pH POC ABG pCO2 POC ABG pO2 Sodium Potassium Chloride Carbon Dioxide BUN Creatinine Glucose POC Glucose Lactic Acid 2.40 H* Calcium Total Bilirubin Direct Bilirubin AST Ammonia 134.0 H Lactate Dehydrogenase NT-Pro-B Natriuret Pep 9558 H Total Protein Albumin Lipase Vitamin B12 Urine WBC (Auto) Urine Creatinine Ur Creatinine 24 Hour Crossmatch 12/10/17 12/11/17 12/11/17 23:14 00:29 03:33 RBC Hgb Hct MCH MCHC RDW Plt Count Lymph % (Auto) Holmes % (Auto) Lymph # Seg Neutrophils % Seg Neuts % (Manual) Lymphocytes % (Manual) Lymphocytes # (Manual) PT INR APTT Fibrinogen D-Dimer POC ABG pH POC ABG pCO2 POC ABG pO2 Sodium Potassium Chloride Carbon Dioxide BUN Creatinine Glucose POC Glucose Lactic Acid 2.80 H* 3.00 H* Calcium Total Bilirubin Direct Bilirubin AST Ammonia Lactate Dehydrogenase NT-Pro-B Natriuret Pep Total Protein Albumin Lipase 7 L Vitamin B12 Urine WBC (Auto) Urine Creatinine Ur Creatinine 24 Hour Crossmatch 12/11/17 12/11/17 12/11/17 04:08 04:34 04:34 RBC Hgb Hct MCH MCHC RDW Plt Count Lymph % (Auto) Holmes % (Auto) Lymph # Seg Neutrophils % Seg Neuts % (Manual) Lymphocytes % (Manual) Lymphocytes # (Manual) PT 19.1 H INR 1.51 H APTT 45.7 H Fibrinogen D-Dimer POC ABG pH POC ABG pCO2 POC ABG pO2 Sodium Potassium Chloride Carbon Dioxide BUN Creatinine Glucose POC Glucose 113 H Lactic Acid 3.10 H* Calcium Total Bilirubin Direct Bilirubin AST Ammonia Lactate Dehydrogenase NT-Pro-B Natriuret Pep Total Protein Albumin Lipase Vitamin B12 Urine WBC (Auto) Urine Creatinine Ur Creatinine 24 Hour Crossmatch 12/11/17 12/11/17 12/11/17 06:46 07:26 09:42 RBC Hgb Hct MCH MCHC RDW Plt Count Lymph % (Auto) Holmes % (Auto) Lymph # Seg Neutrophils % Seg Neuts % (Manual) Lymphocytes % (Manual) Lymphocytes # (Manual) PT INR APTT Fibrinogen D-Dimer POC ABG pH POC ABG pCO2 POC ABG pO2 Sodium Potassium Chloride Carbon Dioxide BUN Creatinine Glucose POC Glucose Lactic Acid 2.70 H* 2.80 H* 2.90 H* Calcium Total Bilirubin Direct Bilirubin AST Ammonia Lactate Dehydrogenase NT-Pro-B Natriuret Pep Total Protein Albumin Lipase Vitamin B12 Urine WBC (Auto) Urine Creatinine Ur Creatinine 24 Hour Crossmatch 12/11/17 12/11/17 12/11/17 13:12 14:06 23:14 RBC Hgb Hct MCH MCHC RDW Plt Count Lymph % (Auto) Holmes % (Auto) Lymph # Seg Neutrophils % Seg Neuts % (Manual) Lymphocytes % (Manual) Lymphocytes # (Manual) PT INR APTT Fibrinogen D-Dimer POC ABG pH POC ABG pCO2 POC ABG pO2 Sodium Potassium Chloride Carbon Dioxide BUN Creatinine Glucose POC Glucose Lactic Acid 3.10 H* 3.10 H* 3.70 H* Calcium Total Bilirubin Direct Bilirubin AST Ammonia Lactate Dehydrogenase NT-Pro-B Natriuret Pep Total Protein Albumin Lipase Vitamin B12 Urine WBC (Auto) Urine Creatinine Ur Creatinine 24 Hour Crossmatch 12/11/17 12/12/17 12/12/17 23:23 03:41 03:41 RBC 2.17 L Hgb 7.0 L Hct 19.9 L* MCH 33 H MCHC 35 H RDW 17.7 H Plt Count 62 L Lymph % (Auto) Holmes % (Auto) Lymph # Seg Neutrophils % Seg Neuts % (Manual) 91.0 H Lymphocytes % (Manual) 3.0 L Lymphocytes # (Manual) 0.2 L PT INR APTT Fibrinogen D-Dimer POC ABG pH POC ABG pCO2 POC ABG pO2 Sodium Potassium 5.4 H Chloride Carbon Dioxide 12 L BUN 47 H Creatinine 4.5 H Glucose 103 H POC Glucose Lactic Acid Calcium 8.0 L Total Bilirubin 3.60 H Direct Bilirubin AST 58 H Ammonia Lactate Dehydrogenase NT-Pro-B Natriuret Pep Total Protein 5.9 L Albumin 2.5 L Lipase Vitamin B12 Urine WBC (Auto) Urine Creatinine Ur Creatinine 24 Hour Crossmatch See Detail 12/12/17 12/12/17 12/12/17 07:00 09:13 17:55 RBC 2.06 L Hgb 6.6 L Hct 18.6 L* MCH MCHC 36 H RDW 17.8 H Plt Count 77 L Lymph % (Auto) Holmes % (Auto) Lymph # Seg Neutrophils % Seg Neuts % (Manual) Lymphocytes % (Manual) Lymphocytes # (Manual) PT INR APTT Fibrinogen D-Dimer POC ABG pH 7.452 H POC ABG pCO2 22.2 L POC ABG pO2 75 L Sodium Potassium Chloride Carbon Dioxide BUN Creatinine Glucose POC Glucose 119 H Lactic Acid Calcium Total Bilirubin Direct Bilirubin AST Ammonia Lactate Dehydrogenase NT-Pro-B Natriuret Pep Total Protein Albumin Lipase Vitamin B12 Urine WBC (Auto) Urine Creatinine Ur Creatinine 24 Hour Crossmatch 12/12/17 12/12/17 12/12/17 19:50 19:50 19:50 RBC 2.40 L Hgb 7.8 L Hct 21.3 L MCH 33 H MCHC 37 H RDW 16.1 H Plt Count 99 L Lymph % (Auto) Holmes % (Auto) Lymph # Seg Neutrophils % Seg Neuts % (Manual) 87.0 H Lymphocytes % (Manual) 5.0 L Lymphocytes # (Manual) 0.3 L PT 21.9 H INR 1.79 H APTT 41.5 H Fibrinogen 128 L D-Dimer 1215.06 H POC ABG pH POC ABG pCO2 POC ABG pO2 Sodium Potassium Chloride Carbon Dioxide BUN Creatinine Glucose POC Glucose Lactic Acid Calcium Total Bilirubin 4.10 H Direct Bilirubin 1.6 H AST Ammonia Lactate Dehydrogenase NT-Pro-B Natriuret Pep Total Protein Albumin Lipase Vitamin B12 Urine WBC (Auto) Urine Creatinine Ur Creatinine 24 Hour Crossmatch 12/12/17 12/12/17 12/12/17 19:50 19:50 23:46 RBC Hgb Hct MCH MCHC RDW Plt Count Lymph % (Auto) Holmes % (Auto) Lymph # Seg Neutrophils % Seg Neuts % (Manual) Lymphocytes % (Manual) Lymphocytes # (Manual) PT INR APTT Fibrinogen D-Dimer POC ABG pH POC ABG pCO2 POC ABG pO2 Sodium Potassium Chloride Carbon Dioxide BUN Creatinine Glucose POC Glucose 110 H Lactic Acid Calcium Total Bilirubin Direct Bilirubin AST Ammonia Lactate Dehydrogenase 213 H NT-Pro-B Natriuret Pep Total Protein Albumin Lipase Vitamin B12 1465 H Urine WBC (Auto) Urine Creatinine Ur Creatinine 24 Hour Crossmatch 12/13/17 12/13/17 12/13/17 04:00 04:00 05:12 RBC 2.32 L Hgb 7.4 L Hct 20.8 L MCH MCHC 36 H RDW 16.1 H Plt Count 134 L Lymph % (Auto) 13.1 L Holmes % (Auto) 7.9 H Lymph # 0.8 L Seg Neutrophils % 76.3 H Seg Neuts % (Manual) Lymphocytes % (Manual) Lymphocytes # (Manual) PT INR APTT Fibrinogen D-Dimer POC ABG pH POC ABG pCO2 POC ABG pO2 Sodium Potassium Chloride Carbon Dioxide 21 L D BUN 48 H Creatinine 4.6 H Glucose 104 H POC Glucose 134 H Lactic Acid Calcium 8.1 L Total Bilirubin 4.70 H Direct Bilirubin AST 43 H Ammonia Lactate Dehydrogenase NT-Pro-B Natriuret Pep Total Protein 5.8 L Albumin 3.1 L Lipase Vitamin B12 Urine WBC (Auto) Urine Creatinine Ur Creatinine 24 Hour Crossmatch 12/13/17 12/13/17 12/13/17 08:45 12:25 14:03 RBC Hgb Hct MCH MCHC RDW Plt Count Lymph % (Auto) Holmes % (Auto) Lymph # Seg Neutrophils % Seg Neuts % (Manual) Lymphocytes % (Manual) Lymphocytes # (Manual) PT 20.5 H INR 1.65 H APTT Fibrinogen D-Dimer POC ABG pH POC ABG pCO2 POC ABG pO2 Sodium Potassium Chloride Carbon Dioxide BUN Creatinine Glucose POC Glucose 112 H Lactic Acid 3.70 H* Calcium Total Bilirubin Direct Bilirubin AST Ammonia Lactate Dehydrogenase NT-Pro-B Natriuret Pep Total Protein Albumin Lipase Vitamin B12 Urine WBC (Auto) Urine Creatinine Ur Creatinine 24 Hour Crossmatch 12/13/17 12/13/17 12/13/17 14:03 18:52 21:09 RBC Hgb Hct MCH MCHC RDW Plt Count Lymph % (Auto) Holmes % (Auto) Lymph # Seg Neutrophils % Seg Neuts % (Manual) Lymphocytes % (Manual) Lymphocytes # (Manual) PT INR APTT Fibrinogen D-Dimer POC ABG pH POC ABG pCO2 POC ABG pO2 Sodium Potassium Chloride Carbon Dioxide BUN Creatinine Glucose POC Glucose 110 H Lactic Acid 4.00 H* Calcium Total Bilirubin Direct Bilirubin AST Ammonia 87.0 H Lactate Dehydrogenase NT-Pro-B Natriuret Pep Total Protein Albumin Lipase Vitamin B12 Urine WBC (Auto) Urine Creatinine Ur Creatinine 24 Hour Crossmatch 12/14/17 12/14/17 12/14/17 00:25 03:30 03:30 RBC 2.29 L Hgb 7.3 L Hct 20.7 L MCH MCHC 35 H RDW 16.2 H Plt Count 84 L Lymph % (Auto) 12.8 L Holmes % (Auto) 8.3 H Lymph # 0.6 L Seg Neutrophils % 77.2 H Seg Neuts % (Manual) Lymphocytes % (Manual) Lymphocytes # (Manual) PT INR APTT Fibrinogen D-Dimer POC ABG pH POC ABG pCO2 POC ABG pO2 Sodium Potassium Chloride 96.1 L Carbon Dioxide BUN 48 H Creatinine 4.6 H Glucose 125 H POC Glucose 131 H Lactic Acid Calcium 7.9 L Total Bilirubin 4.70 H Direct Bilirubin AST 45 H Ammonia Lactate Dehydrogenase NT-Pro-B Natriuret Pep Total Protein 6.1 L Albumin 3.4 L Lipase Vitamin B12 Urine WBC (Auto) Urine Creatinine Ur Creatinine 24 Hour Crossmatch 12/14/17 12/14/17 12/14/17 05:31 12:26 12:55 RBC Hgb Hct MCH MCHC RDW Plt Count Lymph % (Auto) Holmes % (Auto) Lymph # Seg Neutrophils % Seg Neuts % (Manual) Lymphocytes % (Manual) Lymphocytes # (Manual) PT INR APTT Fibrinogen D-Dimer POC ABG pH POC ABG pCO2 POC ABG pO2 Sodium Potassium Chloride Carbon Dioxide BUN Creatinine Glucose POC Glucose 125 H 117 H Lactic Acid 3.40 H* Calcium Total Bilirubin Direct Bilirubin AST Ammonia Lactate Dehydrogenase NT-Pro-B Natriuret Pep Total Protein Albumin Lipase Vitamin B12 Urine WBC (Auto) Urine Creatinine Ur Creatinine 24 Hour Crossmatch 12/14/17 12/14/17 12/14/17 15:26 17:26 18:07 RBC Hgb Hct MCH MCHC RDW Plt Count Lymph % (Auto) Holmes % (Auto) Lymph # Seg Neutrophils % Seg Neuts % (Manual) Lymphocytes % (Manual) Lymphocytes # (Manual) PT INR APTT Fibrinogen D-Dimer POC ABG pH POC ABG pCO2 POC ABG pO2 Sodium Potassium Chloride Carbon Dioxide BUN Creatinine Glucose POC Glucose 143 H Lactic Acid 4.00 H* 3.90 H* Calcium Total Bilirubin Direct Bilirubin AST Ammonia Lactate Dehydrogenase NT-Pro-B Natriuret Pep Total Protein Albumin Lipase Vitamin B12 Urine WBC (Auto) Urine Creatinine Ur Creatinine 24 Hour Crossmatch 12/14/17 12/15/17 12/15/17 Unknown 00:08 04:51 RBC 2.27 L Hgb 7.3 L Hct 20.7 L MCH MCHC 35 H RDW 16.1 H Plt Count 92 L Lymph % (Auto) 12.5 L Holmes % (Auto) 10.4 H Lymph # 0.6 L Seg Neutrophils % 74.7 H Seg Neuts % (Manual) Lymphocytes % (Manual) Lymphocytes # (Manual) PT INR APTT Fibrinogen D-Dimer POC ABG pH POC ABG pCO2 POC ABG pO2 Sodium Potassium Chloride Carbon Dioxide BUN Creatinine Glucose POC Glucose 124 H Lactic Acid Calcium Total Bilirubin Direct Bilirubin AST Ammonia Lactate Dehydrogenase NT-Pro-B Natriuret Pep Total Protein Albumin Lipase Vitamin B12 Urine WBC (Auto) Urine Creatinine 122.5 H Ur Creatinine 24 Hour 0.3 L Crossmatch 12/15/17 12/15/17 12/15/17 04:51 04:51 05:56 RBC Hgb Hct MCH MCHC RDW Plt Count Lymph % (Auto) Holmes % (Auto) Lymph # Seg Neutrophils % Seg Neuts % (Manual) Lymphocytes % (Manual) Lymphocytes # (Manual) PT INR APTT Fibrinogen D-Dimer POC ABG pH POC ABG pCO2 POC ABG pO2 Sodium Potassium 3.5 L Chloride 92.6 L Carbon Dioxide BUN 50 H Creatinine 4.8 H Glucose 141 H POC Glucose 143 H Lactic Acid Calcium 7.9 L Total Bilirubin 3.60 H Direct Bilirubin AST 44 H Ammonia 24.0 L Lactate Dehydrogenase NT-Pro-B Natriuret Pep Total Protein 6.1 L Albumin 3.8 L Lipase Vitamin B12 Urine WBC (Auto) Urine Creatinine Ur Creatinine 24 Hour Crossmatch 12/15/17 12/15/17 12/16/17 12:17 23:10 07:04 RBC Hgb Hct MCH MCHC RDW Plt Count Lymph % (Auto) Holmes % (Auto) Lymph # Seg Neutrophils % Seg Neuts % (Manual) Lymphocytes % (Manual) Lymphocytes # (Manual) PT INR APTT Fibrinogen D-Dimer POC ABG pH POC ABG pCO2 POC ABG pO2 Sodium Potassium Chloride Carbon Dioxide BUN Creatinine Glucose POC Glucose 127 H 157 H 147 H Lactic Acid Calcium Total Bilirubin Direct Bilirubin AST Ammonia Lactate Dehydrogenase NT-Pro-B Natriuret Pep Total Protein Albumin Lipase Vitamin B12 Urine WBC (Auto) Urine Creatinine Ur Creatinine 24 Hour Crossmatch 12/16/17 12/16/17 12/16/17 11:35 12:37 12:37 RBC 2.21 L Hgb 6.9 L Hct 20.2 L MCH MCHC RDW 16.2 H Plt Count 50 L Lymph % (Auto) Holmes % (Auto) 9.7 H Lymph # 0.7 L Seg Neutrophils % 73.1 H Seg Neuts % (Manual) Lymphocytes % (Manual) Lymphocytes # (Manual) PT INR APTT Fibrinogen D-Dimer POC ABG pH POC ABG pCO2 POC ABG pO2 Sodium Potassium Chloride 88.2 L Carbon Dioxide BUN 52 H Creatinine 5.5 H Glucose 107 H POC Glucose 134 H Lactic Acid Calcium 7.8 L Total Bilirubin 2.60 H Direct Bilirubin AST 49 H Ammonia Lactate Dehydrogenase NT-Pro-B Natriuret Pep Total Protein Albumin 3.6 L Lipase Vitamin B12 Urine WBC (Auto) Urine Creatinine Ur Creatinine 24 Hour Crossmatch 12/16/17 12/16/17 12/16/17 18:06 20:45 23:34 RBC Hgb Hct MCH MCHC RDW Plt Count Lymph % (Auto) Holmes % (Auto) Lymph # Seg Neutrophils % Seg Neuts % (Manual) Lymphocytes % (Manual) Lymphocytes # (Manual) PT INR APTT Fibrinogen D-Dimer POC ABG pH POC ABG pCO2 POC ABG pO2 Sodium Potassium Chloride Carbon Dioxide BUN Creatinine Glucose POC Glucose 133 H 139 H Lactic Acid Calcium Total Bilirubin Direct Bilirubin AST Ammonia Lactate Dehydrogenase NT-Pro-B Natriuret Pep Total Protein Albumin Lipase Vitamin B12 Urine WBC (Auto) Urine Creatinine Ur Creatinine 24 Hour Crossmatch See Detail 12/17/17 12/17/17 12/17/17 05:27 05:27 06:11 RBC 2.10 L Hgb 6.6 L Hct 19.2 L* MCH MCHC 35 H RDW 16.5 H Plt Count 65 L Lymph % (Auto) 12.6 L Holmes % (Auto) 9.6 H Lymph # 0.7 L Seg Neutrophils % 75.8 H Seg Neuts % (Manual) Lymphocytes % (Manual) Lymphocytes # (Manual) PT INR APTT Fibrinogen D-Dimer POC ABG pH POC ABG pCO2 POC ABG pO2 Sodium 135 L Potassium 3.4 L Chloride 84.9 L Carbon Dioxide 33 H BUN 53 H Creatinine 5.9 H Glucose POC Glucose 110 H Lactic Acid Calcium 7.7 L Total Bilirubin 2.70 H Direct Bilirubin AST 50 H Ammonia Lactate Dehydrogenase NT-Pro-B Natriuret Pep Total Protein 6.2 L Albumin 3.7 L Lipase Vitamin B12 Urine WBC (Auto) Urine Creatinine Ur Creatinine 24 Hour Crossmatch 12/17/17 09:34 RBC Hgb Hct MCH MCHC RDW Plt Count Lymph % (Auto) Holmes % (Auto) Lymph # Seg Neutrophils % Seg Neuts % (Manual) Lymphocytes % (Manual) Lymphocytes # (Manual) PT 23.9 H INR 1.99 H APTT Fibrinogen D-Dimer POC ABG pH POC ABG pCO2 POC ABG pO2 Sodium Potassium Chloride Carbon Dioxide BUN Creatinine Glucose POC Glucose Lactic Acid Calcium Total Bilirubin Direct Bilirubin AST Ammonia Lactate Dehydrogenase NT-Pro-B Natriuret Pep Total Protein Albumin Lipase Vitamin B12 Urine WBC (Auto) Urine Creatinine Ur Creatinine 24 Hour Crossmatch Allied health notes reviewed: RT
[2017-12-17] MEDS: PROCRIT IV PRN (18:20)
[2017-12-17] MEDS: PROAMATINE PO SCH ×3 (20:26→23:08)
[2017-12-17] MEDS: CEPHULAC PO SCH ×2 (20:26→23:00)
[2017-12-17] MEDS: XIFAXAN PO SCH ×2 (20:27→23:00)
[2017-12-17] MEDS: PROTONIX FEEDTUBE SCH (20:27)
[2017-12-17] MEDS: LOPRESSOR PO SCH ×2 (20:27→23:02)
[2017-12-17] MEDS: ALBURX 25% (ALBUMIN) IV SCH ×2 (20:28→23:39)
[2017-12-17] MEDS: ROCEPHIN/NS 1 GM/50 ML 1 GM/50 ML BAG IV SCH (20:31)
[2017-12-17] MEDS ORDERED: NACL 0.9% 500 ML 500 ML ONE (20:34)
--- NOTE | 2017-12-17 20:36 | Progress Note ---
Assessment and Plan - Patient Problems (1) Acute hepatic encephalopathy Current Visit: Yes Status: Acute Plan to address problem: see orders. continue with lactulose, recheck ammonia level. continue same. (2) Anemia Current Visit: Yes Status: Acute Plan to address problem: see orders. Replacement transfusion, if hgb less than 7.0 same as above. see notes above. Subjective Date of service: 12/17/17 Principal diagnosis: CARMEN on CKD; Acute Encephalopathy; Sepsis Syndrome; Anemia Interval history: Patient seen, restingm labs/notes reviewed. agree with management so far.labs showing consumptive coagulopathy. Patient seen, resting in bed, records/labs reviewed.PLT dropped some.Still no active bleeding. Patient seen/examined, records/labs / notes reviewed, hgb low at 6.9, will rec replacement transfusion,with HD tomorrow if planned to proceed with HD. Patient seen, resting in bed, labs/records reviewed, Hgb still low, transfusion written for today. Objective - Constitutional Vitals: Vital Signs - 12hr 12/17/17 12/17/17 12/17/17 08:56 16:00 16:25 Temperature 97.7 F 97.8 F Pulse Rate 62 56 L 65 Respiratory 16 16 Rate Blood Pressure 85/46 87/50 12/17/17 12/17/17 12/17/17 16:30 16:45 17:00 Temperature 98.7 F Pulse Rate 64 55 L 57 L Respiratory 16 16 Rate Blood Pressure 94/49 96/52 93/54 12/17/17 12/17/17 12/17/17 17:15 17:25 17:37 Temperature 98.7 F Pulse Rate 61 61 52 L Respiratory 16 16 16 Rate Blood Pressure 97/56 97/56 91/54 12/17/17 12/17/17 12/17/17 17:47 18:00 18:14 Temperature 98.6 F 98.6 F Pulse Rate 54 L 60 53 L Respiratory 16 18 16 Rate Blood Pressure 101/56 100/63 104/60 12/17/17 12/17/17 18:30 18:37 Temperature 98.5 F 98.6 F Pulse Rate 60 65 Respiratory 16 16 Rate Blood Pressure 109/63 103/58 General appearance: Present: mild distress - EENT Eyes: PERRL, EOM intact ENT: hearing intact, clear oral mucosa Ears: bilateral: normal - Neck Neck: supple, normal ROM - Respiratory Respiratory: bilateral: rhonchi - Breasts Breasts: deferred - Cardiovascular Rhythm: regular Heart Sounds: Present: S1 & S2. Absent: gallop, rub Extremities: pulses intact, No edema, normal color, Full ROM - Gastrointestinal General gastrointestinal: Present: soft, non-tender, non-distended, normal bowel sounds Rectal Exam: deferred - Genitourinary Male genitourinary: deferred - Integumentary Integumentary: clear, warm, dry - Musculoskeletal Musculoskeletal: 1, strength equal bilaterally - Neurologic Neurologic: moves all extremities - Psychiatric Psychiatric: memory intact, appropriate mood/affect, intact judgment & insight - Labs CBC & Chem 7: 12/17/17 05:27 12/17/17 05:27 Labs: Abnormal lab results 12/16/17 12/16/17 12/17/17 Range/Units 20:45 23:34 05:27 RBC 2.10 L (3.65-5.03) M/mm3 Hgb 6.6 L (11.8-15.2) gm/dl Hct 19.2 L* (35.5-45.6) % MCHC 35 H (32-34) % RDW 16.5 H (13.2-15.2) % Plt Count 65 L (140-440) K/mm3 Lymph % (Auto) 12.6 L (13.4-35.0) % Esmeralda % (Auto) 9.6 H (0.0-7.3) % Lymph # 0.7 L (1.2-5.4) K/mm3 Seg Neutrophils % 75.8 H (40.0-70.0) % PT (12.2-14.9) Sec. INR (0.87-1.13) Sodium (137-145) mmol/L Potassium (3.6-5.0) mmol/L Chloride (98-107) mmol/L Carbon Dioxide (22-30) mmol/L BUN (9-20) mg/dL Creatinine (0.8-1.5) mg/dL POC Glucose 139 H (70-105) Calcium (8.4-10.2) mg/dL Total Bilirubin (0.1-1.2) mg/dL AST (5-40) units/L Total Protein (6.3-8.2) g/dL Albumin (3.9-5) g/dL Crossmatch See Detail 12/17/17 12/17/17 12/17/17 Range/Units 05:27 06:11 09:34 RBC (3.65-5.03) M/mm3 Hgb (11.8-15.2) gm/dl Hct (35.5-45.6) % MCHC (32-34) % RDW (13.2-15.2) % Plt Count (140-440) K/mm3 Lymph % (Auto) (13.4-35.0) % Esmeralda % (Auto) (0.0-7.3) % Lymph # (1.2-5.4) K/mm3 Seg Neutrophils % (40.0-70.0) % PT 23.9 H (12.2-14.9) Sec. INR 1.99 H (0.87-1.13) Sodium 135 L (137-145) mmol/L Potassium 3.4 L (3.6-5.0) mmol/L Chloride 84.9 L (98-107) mmol/L Carbon Dioxide 33 H (22-30) mmol/L BUN 53 H (9-20) mg/dL Creatinine 5.9 H (0.8-1.5) mg/dL POC Glucose 110 H (70-105) Calcium 7.7 L (8.4-10.2) mg/dL Total Bilirubin 2.70 H (0.1-1.2) mg/dL AST 50 H (5-40) units/L Total Protein 6.2 L (6.3-8.2) g/dL Albumin 3.7 L (3.9-5) g/dL Crossmatch
[2017-12-18 06:11] LABS: Basophils % (Auto) 0.4 % (0.0-1.8); Eosinophils % (Auto) 0.5 % (0.0-4.3); Hematocrit 30.4 % (35.5-45.6); Hemoglobin 10.3 gm/dl (11.8-15.2); Lymphocytes # (Auto) 0.6 K/mm3 (1.2-5.4); Mean Corpuscular HGB Conc 34 % (32-34); Mean Corpuscular Hemoglobin 31 pg (28-32); Mean Corpuscular Volume 91 fl (84-94); Monocytes # (Auto) 0.8 K/mm3 (0.0-0.8); Monocytes % (Auto) 10.9 % (0.0-7.3); Red Blood Count 3.35 M/mm3 (3.65-5.03); Red Cell Distribution Width 16.2 % (13.2-15.2)
[2017-12-18 06:12] LABS: Platelet Count 57 K/mm3 (140-440)
[2017-12-18 06:36] LABS: Calcium 8.1 mg/dL (8.4-10.2)
[2017-12-18] MEDS: PROAMATINE PO SCH ×3 (08:22→20:45)
--- NOTE | 2017-12-18 10:05 | Progress Note ---
Assessment and Plan Anemia s/p transfusion of PRBCs Thromocytopenia, chronic Chronic renal failure Hyperkalemia Hx of Cirrhosis with bleeding esophageal varices requiring TIPS 11/2016 NSVT on telemetry no reoccurrence overnight normal TSH Left pleural effusion Echocardiogram shows mild cardiomyopathy with left ventricular ejection fraction 45-50%. There is mild to moderate tricuspid regurgitation, pulmonary artery pressure is 31, and there is a left pleural effusion. Conservative cardiac management. Subjective Date of service: 12/18/17 Principal diagnosis: CARMEN on CKD; Acute Encephalopathy; Sepsis Syndrome; Anemia Interval history: Patient is resting in bed comfortably. No cardiac events reported. Objective Vital Signs Temp Pulse Resp BP BP Pulse Ox 12/18/17 09:11 99.5 F 72 17 110/70 99 12/18/17 07:22 99.5 F 70 17 110/70 99 12/18/17 04:21 99.2 F 67 20 100/70 94 12/17/17 23:50 98.2 F 61 20 96/55 96 12/17/17 23:02 62 97/58 12/17/17 22:00 65 20 95 12/17/17 20:42 98.4 F 64 18 97/58 97 12/17/17 18:37 98.6 F 65 16 103/58 12/17/17 18:30 98.5 F 60 16 109/63 12/17/17 18:14 53 L 16 104/60 12/17/17 18:00 98.6 F 60 18 100/63 12/17/17 17:47 98.6 F 54 L 16 101/56 12/17/17 17:37 52 L 16 91/54 12/17/17 17:25 98.7 F 61 16 97/56 12/17/17 17:15 61 16 97/56 12/17/17 17:00 57 L 93/54 12/17/17 16:45 98.7 F 55 L 16 96/52 12/17/17 16:30 64 16 94/49 12/17/17 16:25 97.8 F 65 16 87/50 12/17/17 16:00 97.7 F 56 L 16 85/46 - Physical Examination General: No Apparent Distress Cardiac: Positive: Reg Rate and Rhythm - Labs and Meds Cardiac Enzymes 12/18/17 Range/Units 05:21 AST 56 H (5-40) units/L Coagulation 12/17/17 Range/Units 09:34 PT 23.9 H (12.2-14.9) Sec. INR 1.99 H (0.87-1.13) CBC 12/18/17 Range/Units 05:21 WBC 7.1 (4.5-11.0) K/mm3 RBC 3.35 L (3.65-5.03) M/mm3 Hgb 10.3 L D (11.8-15.2) gm/dl Hct 30.4 L D (35.5-45.6) % Plt Count 57 L (140-440) K/mm3 Lymph # 0.6 L (1.2-5.4) K/mm3 [place] # 0.8 (0.0-0.8) K/mm3 Eos # 0.0 (0.0-0.4) K/mm3 Baso # 0.0 (0.0-0.1) K/mm3 Comprehensive Metabolic Panel 12/18/17 Range/Units 05:21 Sodium 139 (137-145) mmol/L Potassium 3.5 L (3.6-5.0) mmol/L Chloride 87.1 L (98-107) mmol/L Carbon Dioxide 28 (22-30) mmol/L BUN 35 H (9-20) mg/dL Creatinine 4.3 H (0.8-1.5) mg/dL Glucose 110 H (75-100) mg/dL Calcium 8.1 L (8.4-10.2) mg/dL AST 56 H (5-40) units/L ALT 20 (7-56) units/L Alkaline Phosphatase 66 (35-129) units/L Total Protein 6.9 (6.3-8.2) g/dL Albumin 4.0 (3.9-5) g/dL - Allied health notes Allied health notes reviewed: RT
[2017-12-18] MEDS: XIFAXAN PO SCH ×2 (10:23→23:09)
[2017-12-18] MEDS: PROTONIX FEEDTUBE SCH (10:24)
[2017-12-18] MEDS: CEPHULAC PO SCH ×2 (10:25→23:09)
[2017-12-18] MEDS: ROCEPHIN/NS 1 GM/50 ML 1 GM/50 ML BAG IV SCH (10:26)
[2017-12-18] MEDS ORDERED: NACL 0.9% 100 ML IV PRN (11:09)
[2017-12-18 11:52] LABS: INR 3.17 (0.87-1.13)
--- NOTE | 2017-12-18 12:53 | Progress Note ---
Assessment and Plan Impression: * Nonoliguric CARMEN secondary to prerenal azotemia due to hypoperfusion ATN vs HRS * Hyperkalemia * sepsis * Severe anemia secondary to ABL * Rectal bleeding * Cirrhosis w/ esophageal varices * Metabolic acidosis * Hyperbilirubinemia * pyuria Plan: * patient remains oliguric and renal function getting worse . Suspect hepatorenal syndrome, * s/p permcath placement 12/17/17 and initiation of dialysis * Shall dialyse him again today * co2 is improved with bicarbonate drip . Off bicarbonate drip * likely has low crcl due to liver disease * strict i/os, avoid nephrotoxins * daily lytes * empiric abx for SBP and UTI * Transfusion pRBC per primary team * Gastroenterology notes appreciated * Medical management of electrolytes * Avoid potential nephrotoxic agents * Dose medications for renal function * He will also need outpatient dialysis arrangement Subjective Date of service: 12/18/17 Principal diagnosis: CARMEN on CKD; Acute Encephalopathy; Sepsis Syndrome; Anemia Interval history: patient is arousable but confused . Denies SOB . at bedside . S/p permcath placement and initiation of dialysis Objective - Vital Signs Vital signs: Vital Signs - 12hr 12/18/17 12/18/17 12/18/17 04:21 07:22 09:11 Temperature 99.2 F 99.5 F 99.5 F Pulse Rate 67 70 72 Respiratory 20 17 17 Rate Blood Pressure 100/70 110/70 Blood Pressure 110/70 [Left] O2 Sat by Pulse 94 99 99 Oximetry - General Appearance General appearance: well-developed, well-nourished, appears stated age EENT: PERRL, mucous membranes moist Neck: no JVD, no thyromegaly, no carotid bruit, supple, other (left IJ permcath in place ) Respiratory: Present: Clear to Ascultation Cardiology: regular, normal heart rate, S1S2, no murmurs Gastrointestinal: normal, normoactive bowel sounds Integumentary: other (trace edema ) - Lab 12/18/17 05:21 12/18/17 05:21 Most recent lab results Calcium 8.1 mg/dL (8.4-10.2) L 12/18/17 05:21 Magnesium 1.80 mg/dL (1.7-2.3) 12/12/17 03:41 Urine Creatinine 122.5 mg/dL (0.1-20.0) H 12/14/17 Unknown
[2017-12-18 13:48] LABS: INR 2.2 (0.87-1.13)
--- NOTE | 2017-12-18 14:00 | Progress Note ---
Assessment and Plan Sepsis, possibly SBP Acute encephalopathy Severe anemia Lactic acidosis, multifactorial Cirrhosis with esophageal varices Rectal bleeding Coagulopathy Metabolic acidosis, multifactorial Respiratory alkalosis Nonoliguric CARMEN secondary to prerenal azotemia due to hypoperfusion ATN vs HRS Moderate protein calorie malnutrition -Vascath placed , HD initiated -Monitor hemodynamics and add vasopressor support for MAP<60 -Aspiration precautions -small bowel feeding tube for medications -continue chronic home medications, including rifaximin and midodrine -Avoid nephrotoxics and adjust all medications for GFRs -Continue therapeutic PPI IR for right thoracentesis. Fluid to be sent for pleural fluid analysis Thoracentesis on hold secondary to coagulopathy. Once INR and platelets are in a safe range, then pleural fluid drainage -Ceftriaxone to continue for possible SBP -Follow up cultures -Continue with lactulose to titrate to 2-3 bowel movements a day -SCDs for VTE prophylaxis in view of GIB and coagulopathy -Supportive transfusions -Nutrition consult -PT/OT consult FULL CODE STATUS PROGNOSIS GUARDED Subjective Date of service: 12/18/17 Principal diagnosis: CARMEN on CKD; Acute Encephalopathy; Sepsis Syndrome; Anemia Interval history: Seen and examined. vitals, labs, medications, chart and imaging reviewed. No fevers or chills, no nausea or vomiting, very lethargic No shortness of breath. No urine output overnight 24 hour events reviewed. Discussed in IDT-ICU rounds. Objective Vital Signs - 12hr 12/18/17 12/18/17 12/18/17 04:21 07:22 09:11 Temperature 99.2 F 99.5 F 99.5 F Pulse Rate 67 70 72 Respiratory 20 17 17 Rate Blood Pressure 100/70 110/70 Blood Pressure 110/70 [Left] O2 Sat by Pulse 94 99 99 Oximetry Constitutional: lethargic, other (chronically ill looking elderly AAM, normocephalic and atraumatic) Eyes: non-icteric ENT: oropharynx moist, other (mallampati 2) Neck: supple, no lymphadenopathy, no JVD, other (no thyromegaly) Effort: mildly labored Ascultation: Bilateral: diminished breath sounds (bases), rhonchi (scant) Percussion: Bilateral: not dull, dull (bases) Cardiovascular: regular rate and rhythm, other (S1,S2, no murmurms, gallops or rubs) Gastrointestinal: normoactive bowel sounds, soft, non-tender, other (distended) Integumentary: rash Extremities: no cyanosis, no edema, pulses normal, no ischemia or petechiae, cool Neurologic: non-focal exam, pupils equal and round, motor strength normal and ( weak), other (somnolent) Psychiatric: other (somnolent; flat affect) CBC and BMP: 12/21/17 05:26 12/19/17 05:55 ABG, PT/INR, D-dimer: ABG POC ABG pH 7.452 (7.35-7.45) H 12/12/17 09:13 POC ABG pCO2 22.2 (35-45) L 12/12/17 09:13 POC ABG pO2 75 (80-105) L 12/12/17 09:13 POC ABG HCO3 15.5 12/12/17 09:13 POC ABG Total CO2 16 12/12/17 09:13 POC ABG O2 Sat 96 12/12/17 09:13 PT/INR, D-dimer PT 25.9 Sec. (12.2-14.9) H 12/18/17 13:10 INR 2.20 (0.87-1.13) H 12/18/17 13:10 D-Dimer 1215.06 ng/mlDDU (0-234) H 12/12/17 19:50 Abnormal lab findings: Abnormal Labs 12/10/17 12/10/17 12/10/17 13:14 13:14 23:05 RBC 2.31 L Hgb 7.3 L Hct 21.5 L MCH MCHC RDW 17.7 H Plt Count 61 L Lymph % (Auto) [place] % (Auto) Lymph # Seg Neutrophils % Seg Neuts % (Manual) 81.0 H Lymphocytes % (Manual) 11.0 L Lymphocytes # (Manual) 0.6 L PT INR APTT Fibrinogen D-Dimer POC ABG pH POC ABG pCO2 POC ABG pO2 Sodium 136 L Potassium 5.2 H Chloride Carbon Dioxide 15 L BUN 47 H Creatinine 5.2 H Glucose 127 H POC Glucose Lactic Acid Calcium Total Bilirubin 3.50 H Direct Bilirubin AST 71 H Ammonia Lactate Dehydrogenase NT-Pro-B Natriuret Pep Total Protein Albumin 2.6 L Lipase Vitamin B12 Urine WBC (Auto) 10.0 H Urine Creatinine Ur Creatinine 24 Hour Crossmatch 12/10/17 12/10/17 12/10/17 23:14 23:14 23:14 RBC Hgb Hct MCH MCHC RDW Plt Count Lymph % (Auto) [place] % (Auto) Lymph # Seg Neutrophils % Seg Neuts % (Manual) Lymphocytes % (Manual) Lymphocytes # (Manual) PT INR APTT Fibrinogen D-Dimer POC ABG pH POC ABG pCO2 POC ABG pO2 Sodium Potassium Chloride Carbon Dioxide BUN Creatinine Glucose POC Glucose Lactic Acid 2.40 H* Calcium Total Bilirubin Direct Bilirubin AST Ammonia 134.0 H Lactate Dehydrogenase NT-Pro-B Natriuret Pep 9558 H Total Protein Albumin Lipase Vitamin B12 Urine WBC (Auto) Urine Creatinine Ur Creatinine 24 Hour Crossmatch 12/10/17 12/11/17 12/11/17 23:14 00:29 03:33 RBC Hgb Hct MCH MCHC RDW Plt Count Lymph % (Auto) [place] % (Auto) Lymph # Seg Neutrophils % Seg Neuts % (Manual) Lymphocytes % (Manual) Lymphocytes # (Manual) PT INR APTT Fibrinogen D-Dimer POC ABG pH POC ABG pCO2 POC ABG pO2 Sodium Potassium Chloride Carbon Dioxide BUN Creatinine Glucose POC Glucose Lactic Acid 2.80 H* 3.00 H* Calcium Total Bilirubin Direct Bilirubin AST Ammonia Lactate Dehydrogenase NT-Pro-B Natriuret Pep Total Protein Albumin Lipase 7 L Vitamin B12 Urine WBC (Auto) Urine Creatinine Ur Creatinine 24 Hour Crossmatch 12/11/17 12/11/17 12/11/17 04:08 04:34 04:34 RBC Hgb Hct [facility] MCHC RDW Plt Count Lymph % (Auto) [place] % (Auto) Lymph # Seg Neutrophils % Seg Neuts % (Manual) Lymphocytes % (Manual) Lymphocytes # (Manual) PT 19.1 H INR 1.51 H APTT 45.7 H Fibrinogen D-Dimer POC ABG pH POC ABG pCO2 POC ABG pO2 Sodium Potassium Chloride Carbon Dioxide BUN Creatinine Glucose POC Glucose 113 H Lactic Acid 3.10 H* Calcium Total Bilirubin Direct Bilirubin AST Ammonia Lactate Dehydrogenase NT-Pro-B Natriuret Pep Total Protein Albumin Lipase Vitamin B12 Urine WBC (Auto) Urine Creatinine Ur Creatinine 24 Hour Crossmatch 12/11/17 12/11/17 12/11/17 06:46 07:26 09:42 RBC Hgb Hct MCH MCHC RDW Plt Count Lymph % (Auto) [place] % (Auto) Lymph # Seg Neutrophils % Seg Neuts % (Manual) Lymphocytes % (Manual) Lymphocytes # (Manual) PT INR APTT Fibrinogen D-Dimer POC ABG pH POC ABG pCO2 POC ABG pO2 Sodium Potassium Chloride Carbon Dioxide BUN Creatinine Glucose POC Glucose Lactic Acid 2.70 H* 2.80 H* 2.90 H* Calcium Total Bilirubin Direct Bilirubin AST Ammonia Lactate Dehydrogenase NT-Pro-B Natriuret Pep Total Protein Albumin Lipase Vitamin B12 Urine WBC (Auto) Urine Creatinine Ur Creatinine 24 Hour Crossmatch 12/11/17 12/11/17 12/11/17 13:12 14:06 23:14 RBC Hgb Hct MCH MCHC RDW Plt Count Lymph % (Auto) [place] % (Auto) Lymph # Seg Neutrophils % Seg Neuts % (Manual) Lymphocytes % (Manual) Lymphocytes # (Manual) PT INR APTT Fibrinogen D-Dimer POC ABG pH POC ABG pCO2 POC ABG pO2 Sodium Potassium Chloride Carbon Dioxide BUN Creatinine Glucose POC Glucose Lactic Acid 3.10 H* 3.10 H* 3.70 H* Calcium Total Bilirubin Direct Bilirubin AST Ammonia Lactate Dehydrogenase NT-Pro-B Natriuret Pep Total Protein Albumin Lipase Vitamin B12 Urine WBC (Auto) Urine Creatinine Ur Creatinine 24 Hour Crossmatch 12/11/17 12/12/17 12/12/17 23:23 03:41 03:41 RBC 2.17 L Hgb 7.0 L Hct 19.9 L* MCH 33 H MCHC 35 H RDW 17.7 H Plt Count 62 L Lymph % (Auto) [place] % (Auto) Lymph # Seg Neutrophils % Seg Neuts % (Manual) 91.0 H Lymphocytes % (Manual) 3.0 L Lymphocytes # (Manual) 0.2 L PT INR APTT Fibrinogen D-Dimer POC ABG pH POC ABG pCO2 POC ABG pO2 Sodium Potassium 5.4 H Chloride Carbon Dioxide 12 L BUN 47 H Creatinine 4.5 H Glucose 103 H POC Glucose Lactic Acid Calcium 8.0 L Total Bilirubin 3.60 H Direct Bilirubin AST 58 H Ammonia Lactate Dehydrogenase NT-Pro-B Natriuret Pep Total Protein 5.9 L Albumin 2.5 L Lipase Vitamin B12 Urine WBC (Auto) Urine Creatinine Ur Creatinine 24 Hour Crossmatch See Detail 12/12/17 12/12/17 12/12/17 07:00 09:13 17:55 RBC 2.06 L Hgb 6.6 L Hct 18.6 L* MCH MCHC 36 H RDW 17.8 H Plt Count 77 L Lymph % (Auto) [place] % (Auto) Lymph # Seg Neutrophils % Seg Neuts % (Manual) Lymphocytes % (Manual) Lymphocytes # (Manual) PT INR APTT Fibrinogen D-Dimer POC ABG pH 7.452 H POC ABG pCO2 22.2 L POC ABG pO2 75 L Sodium Potassium Chloride Carbon Dioxide BUN Creatinine Glucose POC Glucose 119 H Lactic Acid Calcium Total Bilirubin Direct Bilirubin AST Ammonia Lactate Dehydrogenase NT-Pro-B Natriuret Pep Total Protein Albumin Lipase Vitamin B12 Urine WBC (Auto) Urine Creatinine Ur Creatinine 24 Hour Crossmatch 12/12/17 12/12/17 12/12/17 19:50 19:50 19:50 RBC 2.40 L Hgb 7.8 L Hct 21.3 L MCH 33 H MCHC 37 H RDW 16.1 H Plt Count 99 L Lymph % (Auto) [place] % (Auto) Lymph # Seg Neutrophils % Seg Neuts % (Manual) 87.0 H Lymphocytes % (Manual) 5.0 L Lymphocytes # (Manual) 0.3 L PT 21.9 H INR 1.79 H APTT 41.5 H Fibrinogen 128 L D-Dimer 1215.06 H POC ABG pH POC ABG pCO2 POC ABG pO2 Sodium Potassium Chloride Carbon Dioxide BUN Creatinine Glucose POC Glucose Lactic Acid Calcium Total Bilirubin 4.10 H Direct Bilirubin 1.6 H AST Ammonia Lactate Dehydrogenase NT-Pro-B Natriuret Pep Total Protein Albumin Lipase Vitamin B12 Urine WBC (Auto) Urine Creatinine Ur Creatinine 24 Hour Crossmatch 12/12/17 12/12/17 12/12/17 19:50 19:50 23:46 RBC Hgb Hct MCH MCHC RDW Plt Count Lymph % (Auto) [place] % (Auto) Lymph # Seg Neutrophils % Seg Neuts % (Manual) Lymphocytes % (Manual) Lymphocytes # (Manual) PT INR APTT Fibrinogen D-Dimer POC ABG pH POC ABG pCO2 POC ABG pO2 Sodium Potassium Chloride Carbon Dioxide BUN Creatinine Glucose POC Glucose 110 H Lactic Acid Calcium Total Bilirubin Direct Bilirubin AST Ammonia Lactate Dehydrogenase 213 H NT-Pro-B Natriuret Pep Total Protein Albumin Lipase Vitamin B12 1465 H Urine WBC (Auto) Urine Creatinine Ur Creatinine 24 Hour Crossmatch 12/13/17 12/13/17 12/13/17 04:00 04:00 05:12 RBC 2.32 L Hgb 7.4 L Hct 20.8 L MCH MCHC 36 H RDW 16.1 H Plt Count 134 L Lymph % (Auto) 13.1 L [place] % (Auto) 7.9 H Lymph # 0.8 L Seg Neutrophils % 76.3 H Seg Neuts % (Manual) Lymphocytes % (Manual) Lymphocytes # (Manual) PT INR APTT Fibrinogen D-Dimer POC ABG pH POC ABG pCO2 POC ABG pO2 Sodium Potassium Chloride Carbon Dioxide 21 L D BUN 48 H Creatinine 4.6 H Glucose 104 H POC Glucose 134 H Lactic Acid Calcium 8.1 L Total Bilirubin 4.70 H Direct Bilirubin AST 43 H Ammonia Lactate Dehydrogenase NT-Pro-B Natriuret Pep Total Protein 5.8 L Albumin 3.1 L Lipase Vitamin B12 Urine WBC (Auto) Urine Creatinine Ur Creatinine 24 Hour Crossmatch 12/13/17 12/13/17 12/13/17 08:45 12:25 14:03 RBC Hgb Hct MCH MCHC RDW Plt Count Lymph % (Auto) [place] % (Auto) Lymph # Seg Neutrophils % Seg Neuts % (Manual) Lymphocytes % (Manual) Lymphocytes # (Manual) PT 20.5 H INR 1.65 H APTT Fibrinogen D-Dimer POC ABG pH POC ABG pCO2 POC ABG pO2 Sodium Potassium Chloride Carbon Dioxide BUN Creatinine Glucose POC Glucose 112 H Lactic Acid 3.70 H* Calcium Total Bilirubin Direct Bilirubin AST Ammonia Lactate Dehydrogenase NT-Pro-B Natriuret Pep Total Protein Albumin Lipase Vitamin B12 Urine WBC (Auto) Urine Creatinine Ur Creatinine 24 Hour Crossmatch 12/13/17 12/13/17 12/13/17 14:03 18:52 21:09 RBC Hgb Hct MCH MCHC RDW Plt Count Lymph % (Auto) [place] % (Auto) Lymph # Seg Neutrophils % Seg Neuts % (Manual) Lymphocytes % (Manual) Lymphocytes # (Manual) PT INR APTT Fibrinogen D-Dimer POC ABG pH POC ABG pCO2 POC ABG pO2 Sodium Potassium Chloride Carbon Dioxide BUN Creatinine Glucose POC Glucose 110 H Lactic Acid 4.00 H* Calcium Total Bilirubin Direct Bilirubin AST Ammonia 87.0 H Lactate Dehydrogenase NT-Pro-B Natriuret Pep Total Protein Albumin Lipase Vitamin B12 Urine WBC (Auto) Urine Creatinine Ur Creatinine 24 Hour Crossmatch 12/14/17 12/14/17 12/14/17 00:25 03:30 03:30 RBC 2.29 L Hgb 7.3 L Hct 20.7 L MCH MCHC 35 H RDW 16.2 H Plt Count 84 L Lymph % (Auto) 12.8 L [place] % (Auto) 8.3 H Lymph # 0.6 L Seg Neutrophils % 77.2 H Seg Neuts % (Manual) Lymphocytes % (Manual) Lymphocytes # (Manual) PT INR APTT Fibrinogen D-Dimer POC ABG pH POC ABG pCO2 POC ABG pO2 Sodium Potassium Chloride 96.1 L Carbon Dioxide BUN 48 H Creatinine 4.6 H Glucose 125 H POC Glucose 131 H Lactic Acid Calcium 7.9 L Total Bilirubin 4.70 H Direct Bilirubin AST 45 H Ammonia Lactate Dehydrogenase NT-Pro-B Natriuret Pep Total Protein 6.1 L Albumin 3.4 L Lipase Vitamin B12 Urine WBC (Auto) Urine Creatinine Ur Creatinine 24 Hour Crossmatch 12/14/17 12/14/17 12/14/17 05:31 12:26 12:55 RBC Hgb Hct MCH MCHC RDW Plt Count Lymph % (Auto) [place] % (Auto) Lymph # Seg Neutrophils % Seg Neuts % (Manual) Lymphocytes % (Manual) Lymphocytes # (Manual) PT INR APTT Fibrinogen D-Dimer POC ABG pH POC ABG pCO2 POC ABG pO2 Sodium Potassium Chloride Carbon Dioxide BUN Creatinine Glucose POC Glucose 125 H 117 H Lactic Acid 3.40 H* Calcium Total Bilirubin Direct Bilirubin AST Ammonia Lactate Dehydrogenase NT-Pro-B Natriuret Pep Total Protein Albumin Lipase Vitamin B12 Urine WBC (Auto) Urine Creatinine Ur Creatinine 24 Hour Crossmatch 12/14/17 12/14/17 12/14/17 15:26 17:26 18:07 RBC Hgb Hct MCH MCHC RDW Plt Count Lymph % (Auto) [place] % (Auto) Lymph # Seg Neutrophils % Seg Neuts % (Manual) Lymphocytes % (Manual) Lymphocytes # (Manual) PT INR APTT Fibrinogen D-Dimer POC ABG pH POC ABG pCO2 POC ABG pO2 Sodium Potassium Chloride Carbon Dioxide BUN Creatinine Glucose POC Glucose 143 H Lactic Acid 4.00 H* 3.90 H* Calcium Total Bilirubin Direct Bilirubin AST Ammonia Lactate Dehydrogenase NT-Pro-B Natriuret Pep Total Protein Albumin Lipase Vitamin B12 Urine WBC (Auto) Urine Creatinine Ur Creatinine 24 Hour Crossmatch 12/14/17 12/15/17 12/15/17 Unknown 00:08 04:51 RBC 2.27 L Hgb 7.3 L Hct 20.7 L MCH MCHC 35 H RDW 16.1 H Plt Count 92 L Lymph % (Auto) 12.5 L [place] % (Auto) 10.4 H Lymph # 0.6 L Seg Neutrophils % 74.7 H Seg Neuts % (Manual) Lymphocytes % (Manual) Lymphocytes # (Manual) PT INR APTT Fibrinogen D-Dimer POC ABG pH POC ABG pCO2 POC ABG pO2 Sodium Potassium Chloride Carbon Dioxide BUN Creatinine Glucose POC Glucose 124 H Lactic Acid Calcium Total Bilirubin Direct Bilirubin AST Ammonia Lactate Dehydrogenase NT-Pro-B Natriuret Pep Total Protein Albumin Lipase Vitamin B12 Urine WBC (Auto) Urine Creatinine 122.5 H Ur Creatinine 24 Hour 0.3 L Crossmatch 12/15/17 12/15/17 12/15/17 04:51 04:51 05:56 RBC Hgb Hct MCH MCHC RDW Plt Count Lymph % (Auto) [place] % (Auto) Lymph # Seg Neutrophils % Seg Neuts % (Manual) Lymphocytes % (Manual) Lymphocytes # (Manual) PT INR APTT Fibrinogen D-Dimer POC ABG pH POC ABG pCO2 POC ABG pO2 Sodium Potassium 3.5 L Chloride 92.6 L Carbon Dioxide BUN 50 H Creatinine 4.8 H Glucose 141 H POC Glucose 143 H Lactic Acid Calcium 7.9 L Total Bilirubin 3.60 H Direct Bilirubin AST 44 H Ammonia 24.0 L Lactate Dehydrogenase NT-Pro-B Natriuret Pep Total Protein 6.1 L Albumin 3.8 L Lipase Vitamin B12 Urine WBC (Auto) Urine Creatinine Ur Creatinine 24 Hour Crossmatch 12/15/17 12/15/17 12/16/17 12:17 23:10 07:04 RBC Hgb Hct MCH MCHC RDW Plt Count Lymph % (Auto) [place] % (Auto) Lymph # Seg Neutrophils % Seg Neuts % (Manual) Lymphocytes % (Manual) Lymphocytes # (Manual) PT INR APTT Fibrinogen D-Dimer POC ABG pH POC ABG pCO2 POC ABG pO2 Sodium Potassium Chloride Carbon Dioxide BUN Creatinine Glucose POC Glucose 127 H 157 H 147 H Lactic Acid Calcium Total Bilirubin Direct Bilirubin AST Ammonia Lactate Dehydrogenase NT-Pro-B Natriuret Pep Total Protein Albumin Lipase Vitamin B12 Urine WBC (Auto) Urine Creatinine Ur Creatinine 24 Hour Crossmatch 12/16/17 12/16/17 12/16/17 11:35 12:37 12:37 RBC 2.21 L Hgb 6.9 L Hct 20.2 L MCH MCHC RDW 16.2 H Plt Count 50 L Lymph % (Auto) [place] % (Auto) 9.7 H Lymph # 0.7 L Seg Neutrophils % 73.1 H Seg Neuts % (Manual) Lymphocytes % (Manual) Lymphocytes # (Manual) PT INR APTT Fibrinogen D-Dimer POC ABG pH POC ABG pCO2 POC ABG pO2 Sodium Potassium Chloride 88.2 L Carbon Dioxide BUN 52 H Creatinine 5.5 H Glucose 107 H POC Glucose 134 H Lactic Acid Calcium 7.8 L Total Bilirubin 2.60 H Direct Bilirubin AST 49 H Ammonia Lactate Dehydrogenase NT-Pro-B Natriuret Pep Total Protein Albumin 3.6 L Lipase Vitamin B12 Urine WBC (Auto) Urine Creatinine Ur Creatinine 24 Hour Crossmatch 12/16/17 12/16/17 12/16/17 18:06 20:45 23:34 RBC Hgb Hct MCH MCHC RDW Plt Count Lymph % (Auto) [place] % (Auto) Lymph # Seg Neutrophils % Seg Neuts % (Manual) Lymphocytes % (Manual) Lymphocytes # (Manual) PT INR APTT Fibrinogen D-Dimer POC ABG pH POC ABG pCO2 POC ABG pO2 Sodium Potassium Chloride Carbon Dioxide BUN Creatinine Glucose POC Glucose 133 H 139 H Lactic Acid Calcium Total Bilirubin Direct Bilirubin AST Ammonia Lactate Dehydrogenase NT-Pro-B Natriuret Pep Total Protein Albumin Lipase Vitamin B12 Urine WBC (Auto) Urine Creatinine Ur Creatinine 24 Hour Crossmatch See Detail 12/17/17 12/17/17 12/17/17 05:27 05:27 06:11 RBC 2.10 L Hgb 6.6 L Hct 19.2 L* MCH MCHC 35 H RDW 16.5 H Plt Count 65 L Lymph % (Auto) 12.6 L [place] % (Auto) 9.6 H Lymph # 0.7 L Seg Neutrophils % 75.8 H Seg Neuts % (Manual) Lymphocytes % (Manual) Lymphocytes # (Manual) PT INR APTT Fibrinogen D-Dimer POC ABG pH POC ABG pCO2 POC ABG pO2 Sodium 135 L Potassium 3.4 L Chloride 84.9 L Carbon Dioxide 33 H BUN 53 H Creatinine 5.9 H Glucose POC Glucose 110 H Lactic Acid Calcium 7.7 L Total Bilirubin 2.70 H Direct Bilirubin AST 50 H Ammonia Lactate Dehydrogenase NT-Pro-B Natriuret Pep Total Protein 6.2 L Albumin 3.7 L Lipase Vitamin B12 Urine WBC (Auto) Urine Creatinine Ur Creatinine 24 Hour Crossmatch 12/17/17 12/18/17 12/18/17 09:34 00:05 05:21 RBC 3.35 L Hgb 10.3 L D Hct 30.4 L D MCH MCHC RDW 16.2 H Plt Count 57 L Lymph % (Auto) 8.0 L [place] % (Auto) 10.9 H Lymph # 0.6 L Seg Neutrophils % 80.2 H Seg Neuts % (Manual) Lymphocytes % (Manual) Lymphocytes # (Manual) PT 23.9 H INR 1.99 H APTT Fibrinogen D-Dimer POC ABG pH POC ABG pCO2 POC ABG pO2 Sodium Potassium Chloride Carbon Dioxide BUN Creatinine Glucose POC Glucose 132 H Lactic Acid Calcium Total Bilirubin Direct Bilirubin AST Ammonia Lactate Dehydrogenase NT-Pro-B Natriuret Pep Total Protein Albumin Lipase Vitamin B12 Urine WBC (Auto) Urine Creatinine Ur Creatinine 24 Hour Crossmatch 12/18/17 12/18/17 12/18/17 05:21 06:16 11:11 RBC Hgb Hct MCH MCHC RDW Plt Count Lymph % (Auto) [place] % (Auto) Lymph # Seg Neutrophils % Seg Neuts % (Manual) Lymphocytes % (Manual) Lymphocytes # (Manual) PT 34.7 H INR 3.17 H APTT Fibrinogen D-Dimer POC ABG pH POC ABG pCO2 POC ABG pO2 Sodium Potassium 3.5 L Chloride 87.1 L Carbon Dioxide BUN 35 H Creatinine 4.3 H Glucose 110 H POC Glucose 116 H Lactic Acid Calcium 8.1 L Total Bilirubin 5.10 H Direct Bilirubin AST 56 H Ammonia Lactate Dehydrogenase NT-Pro-B Natriuret Pep Total Protein Albumin Lipase Vitamin B12 Urine WBC (Auto) Urine Creatinine Ur Creatinine 24 Hour Crossmatch 12/18/17 13:10 RBC Hgb Hct MCH MCHC RDW Plt Count Lymph % (Auto) [place] % (Auto) Lymph # Seg Neutrophils % Seg Neuts % (Manual) Lymphocytes % (Manual) Lymphocytes # (Manual) PT 25.9 H INR 2.20 H APTT Fibrinogen D-Dimer POC ABG pH POC ABG pCO2 POC ABG pO2 Sodium Potassium Chloride Carbon Dioxide BUN Creatinine Glucose POC Glucose Lactic Acid Calcium Total Bilirubin Direct Bilirubin AST Ammonia Lactate Dehydrogenase NT-Pro-B Natriuret Pep Total Protein Albumin Lipase Vitamin B12 Urine WBC (Auto) Urine Creatinine Ur Creatinine 24 Hour Crossmatch Allied health notes reviewed: RT
--- NOTE | 2017-12-18 15:35 | Progress Note ---
Assessment and Plan Assessment and plan: NSVT, resolved. On Lopressor Septic/hypovolemic shock. Resolved. Continue midodrine. Blood and urine cultures are negative. Sepsis Acute blood loss anemia. Transfuse PRBCs as needed. Hgb 10.3 today. Total 5 Units PRBC given Rectal bleeding. Resolved. No new bleeding episodes since admission. GI reported no plans to scope. We will recall. UTI. Urine cx negative Cirrhosis with esophageal varices. GI following. Patient without signs of active bleeding. If any signs of bleeding we will start octreotide. GI with no plans to scope at this time. Toxic metabolic/hepatic encephalopathy. Patient with elevated ammonia level on admission. Continue to treat with lactulose and underlying causes of sepsis. Ammonia level has normalized and symptoms are improved. Acute on chronic kidney disease. Etiology likely secondary to acute kidney injury from ATN/sepsis/hypotension. Nephrology following. Started dialysis. For dialysis today Hepatorenal syndrome. Nephrology to initiate HD. HD catheter placed by Vascular Pleural effusion. IR for right thoracentesis and fluid will be analyzed. Awaiting procedure. INR still high History Interval history: patient drowsy, Cannot give much history, No fever Hospitalist Physical - Physical exam Narrative exam: Gen:Not in acute distress, lying in bed HEENT:Normocephalic atraumatic Neck: Supple, no JVD Lungs:Decreased breath sounds both bases, no rhonchi, no wheeze Heart:S1 and S2 reg, no murmurs, rubs or gallop Abd: Soft, non tender, non distended, normal bowel sounds Ext: No edema, clubbing or cyanosis Neuro: lethargic, moves all ext - Constitutional Vitals: Temp Pulse Resp BP Pulse Ox 98.2 F 68 16 115/62 99 12/18/17 14:13 12/18/17 14:45 12/18/17 14:13 12/18/17 14:45 12/18/17 09:11 Results - Labs CBC & Chem 7: 12/18/17 05:21 12/18/17 05:21 Labs: Laboratory Last Values WBC 7.1 K/mm3 (4.5-11.0) 12/18/17 05:21 RBC 3.35 M/mm3 (3.65-5.03) L 12/18/17 05:21 Hgb 10.3 gm/dl (11.8-15.2) L D 07/31/18 05:21 Hct 30.4 % (35.5-45.6) L D 12/18/17 05:21 MCV 91 fl (84-94) 12/18/17 05:21 MCH 31 pg (28-32) 12/18/17 05:21 MCHC 34 % (32-34) 12/18/17 05:21 RDW 16.2 % (13.2-15.2) H 12/18/17 05:21 Plt Count 57 K/mm3 (140-440) L 12/18/17 05:21 Lymph % (Auto) 8.0 % (13.4-35.0) L 12/18/17 05:21 [place] % (Auto) 10.9 % (0.0-7.3) H 12/18/17 05:21 Eos % (Auto) 0.5 % (0.0-4.3) 12/18/17 05:21 Baso % (Auto) 0.4 % (0.0-1.8) 12/18/17 05:21 Lymph # 0.6 K/mm3 (1.2-5.4) L 12/18/17 05:21 [place] # 0.8 K/mm3 (0.0-0.8) 12/18/17 05:21 Eos # 0.0 K/mm3 (0.0-0.4) 12/18/17 05:21 Baso # 0.0 K/mm3 (0.0-0.1) 12/18/17 05:21 Add Manual Diff Complete 12/12/17 19:50 Total Counted 100 12/12/17 19:50 Seg Neutrophils % 80.2 % (40.0-70.0) H 12/18/17 05:21 Seg Neuts % (Manual) 87.0 % (40.0-70.0) H 12/12/17 19:50 Band Neutrophils % 0 % 12/12/17 19:50 Lymphocytes % (Manual) 5.0 % (13.4-35.0) L 12/12/17 19:50 Reactive Lymphs % (Man) 0 % 12/12/17 19:50 Monocytes % (Manual) 6.0 % (0.0-7.3) 12/12/17 19:50 Eosinophils % (Manual) 2.0 % (0.0-4.3) 12/12/17 19:50 Basophils % (Manual) 0 % (0.0-1.8) 12/12/17 19:50 Metamyelocytes % 0 % 12/12/17 19:50 Myelocytes % 0 % 12/12/17 19:50 Promyelocytes % 0 % 12/12/17 19:50 Blast Cells % 0 % 12/12/17 19:50 Nucleated RBC % Not Reportable 12/12/17 19:50 Seg Neutrophils # 5.7 K/mm3 (1.8-7.7) 12/18/17 05:21 Seg Neutrophils # Man 4.9 K/mm3 (1.8-7.7) 12/12/17 19:50 Band Neutrophils # 0.0 K/mm3 12/12/17 19:50 Lymphocytes # (Manual) 0.3 K/mm3 (1.2-5.4) L 12/12/17 19:50 Abs React Lymphs (Man) 0.0 K/mm3 12/12/17 19:50 Monocytes # (Manual) 0.3 K/mm3 (0.0-0.8) 12/12/17 19:50 Eosinophils # (Manual) 0.1 K/mm3 (0.0-0.4) 12/12/17 19:50 Basophils # (Manual) 0.0 K/mm3 (0.0-0.1) 12/12/17 19:50 Metamyelocytes # 0.0 K/mm3 12/12/17 19:50 Myelocytes # 0.0 K/mm3 12/12/17 19:50 Promyelocytes # 0.0 K/mm3 12/12/17 19:50 Blast Cells # 0.0 K/mm3 12/12/17 19:50 WBC Morphology Not Reportable 12/12/17 19:50 Hypersegmented Neuts Not Reportable 12/12/17 19:50 Hyposegmented Neuts Not Reportable 12/12/17 19:50 Hypogranular Neuts Not Reportable 12/12/17 19:50 Smudge Cells Not Reportable 12/12/17 19:50 Toxic Granulation Not Reportable 12/12/17 19:50 Toxic Vacuolation Not Reportable 12/12/17 19:50 Dohle Bodies Not Reportable 12/12/17 19:50 Pelger-Huet Anomaly Not Reportable 12/12/17 19:50 Eriberto Rods Not Reportable 12/12/17 19:50 Platelet Estimate Appears decreased 12/12/17 19:50 Clumped Platelets Not Reportable 12/12/17 19:50 Plt Clumps, EDTA Not Reportable 12/12/17 19:50 Large Platelets 1+ 12/12/17 19:50 Giant Platelets Not Reportable 12/12/17 19:50 Platelet Satelliting Not Reportable 12/12/17 19:50 Plt Morphology Comment Not Reportable 12/12/17 19:50 RBC Morphology Not Reportable 12/12/17 19:50 Dimorphic RBCs Not Reportable 12/12/17 19:50 Polychromasia Not Reportable 12/12/17 19:50 Hypochromasia 1+ 12/12/17 19:50 Poikilocytosis Not Reportable 12/12/17 19:50 Anisocytosis Not Reportable 12/12/17 19:50 Microcytosis Not Reportable 12/12/17 19:50 Macrocytosis Not Reportable 12/12/17 19:50 Spherocytes Not Reportable 12/12/17 19:50 Pappenheimer Bodies Not Reportable 12/12/17 19:50 Sickle Cells Not Reportable 12/12/17 19:50 Target Cells Not Reportable 12/12/17 19:50 Tear Drop Cells Not Reportable 12/12/17 19:50 Ovalocytes Not Reportable 12/12/17 19:50 Helmet Cells Not Reportable 12/12/17 19:50 Dos [place] Bodies Not Reportable 12/12/17 19:50 [place] Rings Not Reportable 12/12/17 19:50 [place]ad Cells 1+ 12/12/17 19:50 Bite Cells Not Reportable 12/12/17 19:50 Crenated Cell Not Reportable 12/12/17 19:50 Elliptocytes Not Reportable 12/12/17 19:50 Acanthocytes (Spur) 1+ 12/12/17 19:50 Rouleaux Not Reportable 12/12/17 19:50 Hemoglobin C Crystals Not Reportable 12/12/17 19:50 Schistocytes Not Reportable 12/12/17 19:50 Malaria parasites Not Reportable 12/12/17 19:50 ESR 18 mm/Hr (0-20) 12/12/17 19:50 [place] Bodies Not Reportable 12/12/17 19:50 Hem Pathologist Commnt No 12/12/17 19:50 PT 25.9 Sec. (12.2-14.9) H 12/18/17 13:10 INR 2.20 (0.87-1.13) H 12/18/17 13:10 APTT 41.5 Sec. (24.2-36.6) H 12/12/17 19:50 Fibrinogen 128 mg/dl (211-480) L 12/12/17 19:50 D-Dimer 1215.06 ng/mlDDU (0-234) H 12/12/17 19:50 Factor VIII:C Activity 178 % (50-180) 12/12/17 20:30 POC ABG pH 7.452 (7.35-7.45) H 12/12/17 09:13 POC ABG pCO2 22.2 (35-45) L 12/12/17 09:13 POC ABG pO2 75 (80-105) L 12/12/17 09:13 POC ABG HCO3 15.5 12/12/17 09:13 POC ABG Total CO2 16 12/12/17 09:13 POC ABG O2 Sat 96 12/12/17 09:13 POC ABG Base Excess -8 12/12/17 09:13 FiO2 21 % 12/12/17 09:13 Sodium 139 mmol/L (137-145) 12/18/17 05:21 Potassium 3.5 mmol/L (3.6-5.0) L 12/18/17 05:21 Chloride 87.1 mmol/L (98-107) L 12/18/17 05:21 Carbon Dioxide 28 mmol/L (22-30) 12/18/17 05:21 Anion Gap 27 mmol/L 12/18/17 05:21 BUN 35 mg/dL (9-20) H 12/18/17 05:21 Creatinine 4.3 mg/dL (0.8-1.5) H 12/18/17 05:21 Estimated GFR 17 ml/min 12/18/17 05:21 BUN/Creatinine Ratio 8 % 12/18/17 05:21 Glucose 110 mg/dL (75-100) H 12/18/17 05:21 POC Glucose 97 (70-105) 12/18/17 12:06 Lactic Acid 3.90 mmol/L (0.7-2.0) H* 12/14/17 17:26 Calcium 8.1 mg/dL (8.4-10.2) L 12/18/17 05:21 Magnesium 1.80 mg/dL (1.7-2.3) 12/12/17 03:41 Total Bilirubin 5.10 mg/dL (0.1-1.2) H 12/18/17 05:21 Direct Bilirubin 1.6 mg/dL (0-0.2) H 12/12/17 19:50 Indirect Bilirubin 2.5 mg/dL 12/12/17 19:50 AST 56 units/L (5-40) H 12/18/17 05:21 ALT 20 units/L (7-56) 12/18/17 05:21 Alkaline Phosphatase 66 units/L (35-129) 12/18/17 05:21 Ammonia 53.0 umol/L (25-60) 12/18/17 13:10 Lactate Dehydrogenase 213 units/L (91-180) H 12/12/17 19:50 Total Creatine Kinase 64 units/L (55-170) 12/10/17 23:14 C-Reactive Protein 0.30 mg/dL (0.00-1.30) 12/13/17 14:03 NT-Pro-B Natriuret Pep 9558 pg/mL (0-900) H 12/10/17 23:14 Total Protein 6.9 g/dL (6.3-8.2) 12/18/17 05:21 Albumin 4.0 g/dL (3.9-5) 12/18/17 05:21 Albumin/Globulin Ratio 1.4 % 12/18/17 05:21 Lipase 7 units/L (13-60) L 12/10/17 23:14 Vitamin B12 1465 pg/mL (211-911) H 12/12/17 19:50 Folate 14.04 ng/mL (7.3-26.0) 12/12/17 19:50 TSH 2.560 mlU/mL (0.270-4.200) 12/16/17 12:37 Urine Color Yellow (Yellow) 12/10/17 23:05 Urine Turbidity Clear (Clear) 12/10/17 23:05 Urine pH 5.0 (5.0-7.0) 12/10/17 23:05 Ur Specific [place] 1.013 (1.003-1.030) 12/10/17 23:05 Urine Protein <15 mg/dl mg/dL (Negative) 12/10/17 23:05 Urine Glucose (UA) Neg mg/dL (Negative) 12/10/17 23:05 Urine Ketones Neg mg/dL (Negative) 12/10/17 23:05 Urine Blood Neg (Negative) 12/10/17 23:05 Urine Nitrite Neg (Negative) 12/10/17 23:05 Ur Reducing Substances Not Reportable 12/10/17 23:05 Urine Bilirubin Neg (Negative) 12/10/17 23:05 Urine Ictotest Not Reportable 12/10/17 23:05 Urine Urobilinogen < 2.0 mg/dL (<2.0) 12/10/17 23:05 Ur Leukocyte Esterase Sm (Negative) 12/10/17 23:05 Urine WBC (Auto) 10.0 /HPF (0.0-6.0) H 12/10/17 23:05 Urine RBC (Auto) 4.0 /HPF (0.0-6.0) 12/10/17 23:05 U Epithel Cells (Auto) < 1.0 /HPF (0-13.0) 12/10/17 23:05 Urine Mucus Few /HPF 12/10/17 23:05 Urine Total Volume 250 12/14/17 Unknown Urine Creatinine 122.5 mg/dL (0.1-20.0) H 12/14/17 Unknown Ur Creatinine 24 Hour 0.3 (0.8-2.8) L 12/14/17 Unknown Hepatitis A IgM Ab Non-reactive (NonReactive) 12/12/17 19:50 Hep Bs Antigen Non-reactive (Negative) 12/12/17 19:50 Hep B Core IgM Ab Non-reactive (NonReactive) 12/12/17 19:50 Hepatitis C Antibody Non-reactive (NonReactive) 12/12/17 19:50 Miscellaneous Test Flexitest 1 12/12/17 06:42 Blood Type A NEGATIVE 12/16/17 20:45 Antibody Screen Negative 12/16/17 20:45 Direct Antiglob Test Negative 12/12/17 20:41 JOANNE, Poly Interpret Negative 12/12/17 20:41 Crossmatch See Detail 12/16/17 20:45
[2017-12-18] MEDS ORDERED: NACL 0.9 (PRIMING MACHINE ONLY DIALYSIS) MC ONE (15:47)
[2017-12-18] MEDS: PROCRIT IV PRN (16:48)
[2017-12-18] MEDS: LOPRESSOR PO SCH ×2 (17:24→23:17)
--- NOTE | 2017-12-18 20:28 | Progress Note ---
Assessment and Plan - Patient Problems (1) Acute hepatic encephalopathy Current Visit: Yes Status: Acute Plan to address problem: see orders. continue with lactulose, recheck ammonia level. continue same. (2) Anemia Current Visit: Yes Status: Acute Plan to address problem: see orders. Replacement transfusion, if hgb less than 7.0 same as above. see notes above. same as above, stable. Subjective Date of service: 12/18/17 Principal diagnosis: CARMEN on CKD; Acute Encephalopathy; Sepsis Syndrome; Anemia Interval history: Patient seen, restingm labs/notes reviewed. agree with management so far.labs showing consumptive coagulopathy. Patient seen, resting in bed, records/labs reviewed.PLT dropped some.Still no active bleeding. Patient seen/examined, records/labs / notes reviewed, hgb low at 6.9, will rec replacement transfusion,with HD tomorrow if planned to proceed with HD. Patient seen, resting in bed, labs/records reviewed, Hgb still low, transfusion written for today. Patient seen, resting in bed, labs reviewed, plt 57,000, rectal bleeding resolved, will continue to monitor patient/labs with you, and intervene with replacement transfusion, when needed. Objective - Constitutional Vitals: Vital Signs - 12hr 12/18/17 12/18/17 12/18/17 09:11 14:13 14:18 Temperature 99.5 F 98.2 F Pulse Rate 72 71 63 Respiratory 17 16 Rate Blood Pressure 115/65 108/57 Blood Pressure 110/70 [Left] O2 Sat by Pulse 99 Oximetry 12/18/17 12/18/17 12/18/17 14:30 14:45 15:00 Temperature Pulse Rate 61 68 74 Respiratory Rate Blood Pressure 117/64 115/62 131/61 Blood Pressure [Left] O2 Sat by Pulse Oximetry 12/18/17 12/18/17 12/18/17 15:15 15:30 15:45 Temperature Pulse Rate 73 70 70 Respiratory Rate Blood Pressure 114/64 117/69 113/64 Blood Pressure [Left] O2 Sat by Pulse Oximetry 12/18/17 12/18/17 12/18/17 16:00 16:15 16:30 Temperature Pulse Rate 66 64 69 Respiratory Rate Blood Pressure 106/53 124/64 113/76 Blood Pressure [Left] O2 Sat by Pulse Oximetry 12/18/17 12/18/17 16:45 17:21 Temperature 97.2 F L Pulse Rate 70 68 Respiratory 18 Rate Blood Pressure 112/59 124/47 Blood Pressure [Left] O2 Sat by Pulse Oximetry General appearance: Present: mild distress - EENT Eyes: PERRL, EOM intact ENT: hearing intact, clear oral mucosa Ears: bilateral: normal - Neck Neck: supple, normal ROM - Respiratory Respiratory: bilateral: rhonchi - Breasts Breasts: deferred - Cardiovascular Rhythm: regular Heart Sounds: Present: S1 & S2. Absent: gallop, rub Extremities: pulses intact, No edema, normal color, Full ROM - Gastrointestinal General gastrointestinal: Present: soft, non-tender, non-distended, normal bowel sounds Rectal Exam: deferred - Genitourinary Male genitourinary: deferred - Integumentary Integumentary: clear, warm, dry - Musculoskeletal Musculoskeletal: 1, strength equal bilaterally - Neurologic Neurologic: moves all extremities - Psychiatric Psychiatric: memory intact, appropriate mood/affect, intact judgment & insight - Labs CBC & Chem 7: 12/18/17 05:21 12/18/17 05:21 Labs: Abnormal lab results 12/18/17 12/18/17 12/18/17 Range/Units 00:05 05:21 05:21 RBC 3.35 L (3.65-5.03) M/mm3 Hgb 10.3 L D (11.8-15.2) gm/dl Hct 30.4 L D (35.5-45.6) % RDW 16.2 H (13.2-15.2) % Plt Count 57 L (140-440) K/mm3 Lymph % (Auto) 8.0 L (13.4-35.0) % [place] % (Auto) 10.9 H (0.0-7.3) % Lymph # 0.6 L (1.2-5.4) K/mm3 Seg Neutrophils % 80.2 H (40.0-70.0) % PT (12.2-14.9) Sec. INR (0.87-1.13) Potassium 3.5 L (3.6-5.0) mmol/L Chloride 87.1 L (98-107) mmol/L BUN 35 H (9-20) mg/dL Creatinine 4.3 H (0.8-1.5) mg/dL Glucose 110 H (75-100) mg/dL POC Glucose 132 H (70-105) Calcium 8.1 L (8.4-10.2) mg/dL Total Bilirubin 5.10 H (0.1-1.2) mg/dL AST 56 H (5-40) units/L 12/18/17 12/18/17 12/18/17 Range/Units 06:16 11:11 13:10 RBC (3.65-5.03) M/mm3 Hgb (11.8-15.2) gm/dl Hct (35.5-45.6) % RDW (13.2-15.2) % Plt Count (140-440) K/mm3 Lymph % (Auto) (13.4-35.0) % [place] % (Auto) (0.0-7.3) % Lymph # (1.2-5.4) K/mm3 Seg Neutrophils % (40.0-70.0) % PT 34.7 H 25.9 H (12.2-14.9) Sec. INR 3.17 H 2.20 H (0.87-1.13) Potassium (3.6-5.0) mmol/L Chloride (98-107) mmol/L BUN (9-20) mg/dL Creatinine (0.8-1.5) mg/dL Glucose (75-100) mg/dL POC Glucose 116 H (70-105) Calcium (8.4-10.2) mg/dL Total Bilirubin (0.1-1.2) mg/dL AST (5-40) units/L 12/18/17 Range/Units 17:52 RBC (3.65-5.03) M/mm3 Hgb (11.8-15.2) gm/dl Hct (35.5-45.6) % RDW (13.2-15.2) % Plt Count (140-440) K/mm3 Lymph % (Auto) (13.4-35.0) % [place] % (Auto) (0.0-7.3) % Lymph # (1.2-5.4) K/mm3 Seg Neutrophils % (40.0-70.0) % PT (12.2-14.9) Sec. INR (0.87-1.13) Potassium (3.6-5.0) mmol/L Chloride (98-107) mmol/L BUN (9-20) mg/dL Creatinine (0.8-1.5) mg/dL Glucose (75-100) mg/dL POC Glucose 114 H (70-105) Calcium (8.4-10.2) mg/dL Total Bilirubin (0.1-1.2) mg/dL AST (5-40) units/L
[2017-12-19 07:06] LABS: Hematocrit 25.7 % (35.5-45.6); Hemoglobin 9.1 gm/dl (11.8-15.2); Mean Corpuscular HGB Conc 35 % (32-34); Mean Corpuscular Hemoglobin 32 pg (28-32); Mean Corpuscular Volume 90 fl (84-94); Red Blood Count 2.85 M/mm3 (3.65-5.03); Red Cell Distribution Width 16.4 % (13.2-15.2)
[2017-12-19 07:11] LABS: Platelet Count 61 K/mm3 (140-440)
[2017-12-19 07:30] LABS: Calcium 8.2 mg/dL (8.4-10.2)
[2017-12-19] MEDS: ALBURX 25% (ALBUMIN) IV SCH (07:49)
--- NOTE | 2017-12-19 09:20 | Progress Note ---
Assessment and Plan Assessment and plan: NSVT, resolved. On Lopressor Septic/hypovolemic shock. Resolved. Continue midodrine. Blood and urine cultures are negative. Sepsis Acute blood loss anemia. Transfuse PRBCs as needed. Hgb 10.3 today. Total 5 Units PRBC given Rectal bleeding. Resolved. No new bleeding episodes since admission. GI reported no plans to scope. We will recall. UTI. Urine cx negative Cirrhosis with esophageal varices. GI following. Patient without signs of active bleeding. If any signs of bleeding we will start octreotide. GI with no plans to scope at this time. Toxic metabolic/hepatic encephalopathy. Patient with elevated ammonia level on admission. Continue to treat with lactulose and underlying causes of sepsis. Ammonia level has normalized and symptoms are improved. Acute on chronic kidney disease. Etiology likely secondary to acute kidney injury from ATN/sepsis/hypotension. Nephrology following. Started dialysis. For dialysis today Hepatorenal syndrome. . Started dialysis. HD catheter placed by Vascular Pleural effusion. IR for right thoracentesis and fluid will be analyzed. Awaiting procedure. INR still high. Recheck INR today History Interval history: Feels better, No abdominal pain No fever Hospitalist Physical - Physical exam Narrative exam: Gen:Not in acute distress, lying in bed HEENT:Normocephalic atraumatic Neck: Supple, no JVD Lungs:Decreased breath sounds both bases, no rhonchi, no wheeze Heart:S1 and S2 reg, no murmurs, rubs or gallop Abd: Soft, non tender, non distended, normal bowel sounds Ext: No edema, clubbing or cyanosis Neuro: awake.alert, moves all extremities - Constitutional Vitals: Temp Pulse Resp BP Pulse Ox 98.1 F 79 20 132/77 98 12/19/17 07:00 12/19/17 07:00 12/19/17 07:00 12/19/17 07:00 12/19/17 07:00 Results - Labs CBC & Chem 7: 12/19/17 05:55 12/19/17 05:55 Labs: Laboratory Last Values WBC 8.9 K/mm3 (4.5-11.0) 12/19/17 05:55 RBC 2.85 M/mm3 (3.65-5.03) L 12/19/17 05:55 Hgb 9.1 gm/dl (11.8-15.2) L 12/19/17 05:55 Hct 25.7 % (35.5-45.6) L 12/19/17 05:55 MCV 90 fl (84-94) 12/19/17 05:55 MCH 32 pg (28-32) 12/19/17 05:55 MCHC 35 % (32-34) H 12/19/17 05:55 RDW 16.4 % (13.2-15.2) H 12/19/17 05:55 Plt Count 61 K/mm3 (140-440) L 12/19/17 05:55 Lymph % (Auto) 8.0 % (13.4-35.0) L 12/18/17 05:21 [place] % (Auto) 10.9 % (0.0-7.3) H 12/18/17 05:21 Eos % (Auto) 0.5 % (0.0-4.3) 12/18/17 05:21 Baso % (Auto) 0.4 % (0.0-1.8) 12/18/17 05:21 Lymph # 0.6 K/mm3 (1.2-5.4) L 12/18/17 05:21 [place] # 0.8 K/mm3 (0.0-0.8) 12/18/17 05:21 Eos # 0.0 K/mm3 (0.0-0.4) 12/18/17 05:21 Baso # 0.0 K/mm3 (0.0-0.1) 12/18/17 05:21 Add Manual Diff Complete 12/12/17 19:50 Total Counted 100 12/12/17 19:50 Seg Neutrophils % 80.2 % (40.0-70.0) H 12/18/17 05:21 Seg Neuts % (Manual) 87.0 % (40.0-70.0) H 12/12/17 19:50 Band Neutrophils % 0 % 12/12/17 19:50 Lymphocytes % (Manual) 5.0 % (13.4-35.0) L 12/12/17 19:50 Reactive Lymphs % (Man) 0 % 12/12/17 19:50 Monocytes % (Manual) 6.0 % (0.0-7.3) 12/12/17 19:50 Eosinophils % (Manual) 2.0 % (0.0-4.3) 12/12/17 19:50 Basophils % (Manual) 0 % (0.0-1.8) 12/12/17 19:50 Metamyelocytes % 0 % 12/12/17 19:50 Myelocytes % 0 % 12/12/17 19:50 Promyelocytes % 0 % 12/12/17 19:50 Blast Cells % 0 % 12/12/17 19:50 Nucleated RBC % Not Reportable 12/12/17 19:50 Seg Neutrophils # 5.7 K/mm3 (1.8-7.7) 12/18/17 05:21 Seg Neutrophils # Man 4.9 K/mm3 (1.8-7.7) 12/12/17 19:50 Band Neutrophils # 0.0 K/mm3 12/12/17 19:50 Lymphocytes # (Manual) 0.3 K/mm3 (1.2-5.4) L 12/12/17 19:50 Abs React Lymphs (Man) 0.0 K/mm3 12/12/17 19:50 Monocytes # (Manual) 0.3 K/mm3 (0.0-0.8) 12/12/17 19:50 Eosinophils # (Manual) 0.1 K/mm3 (0.0-0.4) 12/12/17 19:50 Basophils # (Manual) 0.0 K/mm3 (0.0-0.1) 12/12/17 19:50 Metamyelocytes # 0.0 K/mm3 12/12/17 19:50 Myelocytes # 0.0 K/mm3 12/12/17 19:50 Promyelocytes # 0.0 K/mm3 12/12/17 19:50 Blast Cells # 0.0 K/mm3 12/12/17 19:50 WBC Morphology Not Reportable 12/12/17 19:50 Hypersegmented Neuts Not Reportable 12/12/17 19:50 Hyposegmented Neuts Not Reportable 12/12/17 19:50 Hypogranular Neuts Not Reportable 12/12/17 19:50 Smudge Cells Not Reportable 12/12/17 19:50 Toxic Granulation Not Reportable 12/12/17 19:50 Toxic Vacuolation Not Reportable 12/12/17 19:50 Dohle Bodies Not Reportable 12/12/17 19:50 Pelger-Huet Anomaly Not Reportable 12/12/17 19:50 Eriberto Rods Not Reportable 12/12/17 19:50 Platelet Estimate Appears decreased 12/12/17 19:50 Clumped Platelets Not Reportable 12/12/17 19:50 Plt Clumps, EDTA Not Reportable 12/12/17 19:50 Large Platelets 1+ 12/12/17 19:50 Giant Platelets Not Reportable 12/12/17 19:50 Platelet Satelliting Not Reportable 12/12/17 19:50 Plt Morphology Comment Not Reportable 12/12/17 19:50 RBC Morphology Not Reportable 12/12/17 19:50 Dimorphic RBCs Not Reportable 12/12/17 19:50 Polychromasia Not Reportable 12/12/17 19:50 Hypochromasia 1+ 12/12/17 19:50 Poikilocytosis Not Reportable 12/12/17 19:50 Anisocytosis Not Reportable 12/12/17 19:50 Microcytosis Not Reportable 12/12/17 19:50 Macrocytosis Not Reportable 12/12/17 19:50 Spherocytes Not Reportable 12/12/17 19:50 Pappenheimer Bodies Not Reportable 12/12/17 19:50 Sickle Cells Not Reportable 12/12/17 19:50 Target Cells Not Reportable 12/12/17 19:50 Tear Drop Cells Not Reportable 12/12/17 19:50 Ovalocytes Not Reportable 12/12/17 19:50 Helmet Cells Not Reportable 12/12/17 19:50 [place] Bodies Not Reportable 12/12/17 19:50 [place] Rings Not Reportable 12/12/17 19:50 [place] Cells 1+ 12/12/17 19:50 Bite Cells Not Reportable 12/12/17 19:50 Crenated Cell Not Reportable 12/12/17 19:50 Elliptocytes Not Reportable 12/12/17 19:50 Acanthocytes (Spur) 1+ 12/12/17 19:50 Rouleaux Not Reportable 12/12/17 19:50 Hemoglobin C Crystals Not Reportable 12/12/17 19:50 Schistocytes Not Reportable 12/12/17 19:50 Malaria parasites Not Reportable 12/12/17 19:50 ESR 18 mm/Hr (0-20) 12/12/17 19:50 [place] Bodies Not Reportable 12/12/17 19:50 Hem Pathologist Commnt No 12/12/17 19:50 PT 25.9 Sec. (12.2-14.9) H 12/18/17 13:10 INR 2.20 (0.87-1.13) H 12/18/17 13:10 APTT 41.5 Sec. (24.2-36.6) H 12/12/17 19:50 Fibrinogen 128 mg/dl (211-480) L 12/12/17 19:50 D-Dimer 1215.06 ng/mlDDU (0-234) H 12/12/17 19:50 Factor VIII:C Activity 178 % (50-180) 12/12/17 20:30 POC ABG pH 7.452 (7.35-7.45) H 12/12/17 09:13 POC ABG pCO2 22.2 (35-45) L 12/12/17 09:13 POC ABG pO2 75 (80-105) L 12/12/17 09:13 POC ABG HCO3 15.5 12/12/17 09:13 POC ABG Total CO2 16 12/12/17 09:13 POC ABG O2 Sat 96 12/12/17 09:13 POC ABG Base Excess -8 12/12/17 09:13 FiO2 21 % 12/12/17 09:13 Sodium 142 mmol/L (137-145) 12/19/17 05:55 Potassium 3.9 mmol/L (3.6-5.0) 12/19/17 05:55 Chloride 94.5 mmol/L (98-107) L 12/19/17 05:55 Carbon Dioxide 28 mmol/L (22-30) 12/19/17 05:55 Anion Gap 23 mmol/L 12/19/17 05:55 BUN 27 mg/dL (9-20) H 12/19/17 05:55 Creatinine 3.6 mg/dL (0.8-1.5) H 12/19/17 05:55 Estimated GFR 21 ml/min 12/19/17 05:55 BUN/Creatinine Ratio 8 % 12/19/17 05:55 Glucose 86 mg/dL (75-100) 12/19/17 05:55 POC Glucose 78 (70-105) 12/19/17 07:38 Lactic Acid 3.90 mmol/L (0.7-2.0) H* 12/14/17 17:26 Calcium 8.2 mg/dL (8.4-10.2) L 12/19/17 05:55 Magnesium 1.80 mg/dL (1.7-2.3) 12/12/17 03:41 Total Bilirubin 5.10 mg/dL (0.1-1.2) H 12/18/17 05:21 Direct Bilirubin 1.6 mg/dL (0-0.2) H 12/12/17 19:50 Indirect Bilirubin 2.5 mg/dL 12/12/17 19:50 AST 56 units/L (5-40) H 12/18/17 05:21 ALT 20 units/L (7-56) 12/18/17 05:21 Alkaline Phosphatase 66 units/L (35-129) 12/18/17 05:21 Ammonia 53.0 umol/L (25-60) 12/18/17 13:10 Lactate Dehydrogenase 213 units/L (91-180) H 12/12/17 19:50 Total Creatine Kinase 64 units/L (55-170) 12/10/17 23:14 C-Reactive Protein 0.30 mg/dL (0.00-1.30) 12/13/17 14:03 NT-Pro-B Natriuret Pep 9558 pg/mL (0-900) H 12/10/17 23:14 Total Protein 6.9 g/dL (6.3-8.2) 12/18/17 05:21 Albumin 4.0 g/dL (3.9-5) 12/18/17 05:21 Albumin/Globulin Ratio 1.4 % 12/18/17 05:21 Lipase 7 units/L (13-60) L 12/10/17 23:14 Vitamin B12 1465 pg/mL (211-911) H 12/12/17 19:50 Folate 14.04 ng/mL (7.3-26.0) 12/12/17 19:50 TSH 2.560 mlU/mL (0.270-4.200) 12/16/17 12:37 Total Cortisol 8.6 mcg/dL () 12/16/17 12:37 Urine Color Yellow (Yellow) 12/10/17 23:05 Urine Turbidity Clear (Clear) 12/10/17 23:05 Urine pH 5.0 (5.0-7.0) 12/10/17 23:05 Ur Specific [place] 1.013 (1.003-1.030) 12/10/17 23:05 Urine Protein <15 mg/dl mg/dL (Negative) 12/10/17 23:05 Urine Glucose (UA) Neg mg/dL (Negative) 12/10/17 23:05 Urine Ketones Neg mg/dL (Negative) 12/10/17 23:05 Urine Blood Neg (Negative) 12/10/17 23:05 Urine Nitrite Neg (Negative) 12/10/17 23:05 Ur Reducing Substances Not Reportable 12/10/17 23:05 Urine Bilirubin Neg (Negative) 12/10/17 23:05 Urine Ictotest Not Reportable 12/10/17 23:05 Urine Urobilinogen < 2.0 mg/dL (<2.0) 12/10/17 23:05 Ur Leukocyte Esterase Sm (Negative) 12/10/17 23:05 Urine WBC (Auto) 10.0 /HPF (0.0-6.0) H 12/10/17 23:05 Urine RBC (Auto) 4.0 /HPF (0.0-6.0) 12/10/17 23:05 U Epithel Cells (Auto) < 1.0 /HPF (0-13.0) 12/10/17 23:05 Urine Mucus Few /HPF 12/10/17 23:05 Urine Total Volume 250 12/14/17 Unknown Urine Creatinine 122.5 mg/dL (0.1-20.0) H 12/14/17 Unknown Ur Creatinine 24 Hour 0.3 (0.8-2.8) L 12/14/17 Unknown Hepatitis A IgM Ab Non-reactive (NonReactive) 12/12/17 19:50 Hep Bs Antigen Non-reactive (Negative) 12/12/17 19:50 Hep B Core IgM Ab Non-reactive (NonReactive) 12/12/17 19:50 Hepatitis C Antibody Non-reactive (NonReactive) 12/12/17 19:50 Miscellaneous Test Flexitest 1 12/12/17 06:42 Blood Type A NEGATIVE 12/16/17 20:45 Antibody Screen Negative 12/16/17 20:45 Direct Antiglob Test Negative 12/12/17 20:41 JOANNE, Poly Interpret Negative 12/12/17 20:41 Crossmatch See Detail 12/16/17 20:45
--- NOTE | 2017-12-19 09:25 | Progress Note ---
Assessment and Plan Anemia s/p transfusion of PRBCs Thromocytopenia, chronic Chronic renal failure initiated on dialysis Hyperkalemia Hx of Cirrhosis with bleeding esophageal varices requiring TIPS 11/2016 NSVT on telemetry normal TSH on beta blockers for suppression Left pleural effusion Echocardiogram shows mild cardiomyopathy with left ventricular ejection fraction 45-50%. There is mild to moderate tricuspid regurgitation, pulmonary artery pressure is 31, and there is a left pleural effusion. Subjective Date of service: 12/19/17 Principal diagnosis: CARMEN on CKD; Acute Encephalopathy; Sepsis Syndrome; Anemia Interval history: Patient is resting in bed comfortably. He denies palpitations, chest pain and shortness of breath. Objective Vital Signs Temp Pulse Resp BP BP Pulse Ox 12/19/17 07:00 98.1 F 79 20 132/77 98 12/19/17 06:21 99.2 F 63 18 100/52 95 12/19/17 00:27 98.3 F 72 20 96/58 97 12/18/17 23:17 63 98/52 12/18/17 23:09 18 98/52 12/18/17 23:04 18 87/54 12/18/17 20:09 98.6 F 66 18 105/64 98 12/18/17 17:21 97.2 F L 68 18 124/47 12/18/17 16:45 70 112/59 12/18/17 16:30 69 113/76 12/18/17 16:15 64 124/64 12/18/17 16:00 66 106/53 12/18/17 15:45 70 113/64 12/18/17 15:30 70 117/69 12/18/17 15:15 73 114/64 12/18/17 15:00 74 131/61 12/18/17 14:45 68 115/62 12/18/17 14:30 61 117/64 12/18/17 14:18 63 108/57 12/18/17 14:13 98.2 F 71 16 115/65 - Physical Examination General: No Apparent Distress HEENT: Positive: PERRL Cardiac: Positive: Reg Rate and Rhythm - Labs and Meds Coagulation 12/18/17 12/18/17 Range/Units 11:11 13:10 PT 34.7 H 25.9 H (12.2-14.9) Sec. INR 3.17 H 2.20 H (0.87-1.13) CBC 12/19/17 Range/Units 05:55 WBC 8.9 (4.5-11.0) K/mm3 RBC 2.85 L (3.65-5.03) M/mm3 Hgb 9.1 L (11.8-15.2) gm/dl Hct 25.7 L (35.5-45.6) % Plt Count 61 L (140-440) K/mm3 Comprehensive Metabolic Panel 12/19/17 Range/Units 05:55 Sodium 142 (137-145) mmol/L Potassium 3.9 (3.6-5.0) mmol/L Chloride 94.5 L (98-107) mmol/L Carbon Dioxide 28 (22-30) mmol/L BUN 27 H (9-20) mg/dL Creatinine 3.6 H (0.8-1.5) mg/dL Glucose 86 (75-100) mg/dL Calcium 8.2 L (8.4-10.2) mg/dL - Allied health notes Allied health notes reviewed: RT
--- NOTE | 2017-12-19 09:29 | Progress Note ---
Assessment and Plan Impression: * Nonoliguric CARMEN secondary to prerenal azotemia due to hypoperfusion ATN vs HRS * Hyperkalemia * sepsis * Severe anemia secondary to ABL * Rectal bleeding * Cirrhosis w/ esophageal varices * Metabolic acidosis * Hyperbilirubinemia * pyuria Plan: * patient remains oliguric and renal function getting worse . Suspect hepatorenal syndrome, * s/p permcath placement 12/17/17 and initiation of dialysis * uneventful hemodialysis yesterday * Switch him to [facility] as schedule * co2 is improved with bicarbonate drip . Off bicarbonate drip * likely has low crcl due to liver disease * strict i/os, avoid nephrotoxins * daily lytes * empiric abx for SBP and UTI * Transfusion pRBC per primary team * Gastroenterology notes appreciated * Medical management of electrolytes * Avoid potential nephrotoxic agents * Dose medications for renal function * He will also need outpatient dialysis arrangement Subjective Date of service: 12/19/17 Principal diagnosis: CARMEN on CKD; Acute Encephalopathy; Sepsis Syndrome; Anemia Interval history: patient is arousable but confused . Denies SOB . uneventful dialysis yesterday Objective - Vital Signs Vital signs: Vital Signs - 12hr 12/18/17 12/18/17 12/18/17 23:04 23:09 23:17 Temperature Pulse Rate 63 Respiratory 18 18 Rate Blood Pressure 87/54 98/52 98/52 Blood Pressure [Left] O2 Sat by Pulse Oximetry 12/19/17 12/19/17 12/19/17 00:27 06:21 07:00 Temperature 98.3 F 99.2 F 98.1 F Pulse Rate 72 63 79 Respiratory 20 18 20 Rate Blood Pressure 96/58 100/52 Blood Pressure 132/77 [Left] O2 Sat by Pulse 97 95 98 Oximetry - General Appearance General appearance: well-developed, well-nourished, appears stated age EENT: PERRL, mucous membranes moist Neck: no JVD, no thyromegaly, no carotid bruit, supple, other (left IJ PermCath in place) Respiratory: Present: Clear to Ascultation Cardiology: regular, normal heart rate, S1S2, no murmurs Gastrointestinal: normal, normoactive bowel sounds Integumentary: other (trace edema) - Lab 12/19/17 05:55 12/19/17 05:55 Most recent lab results Calcium 8.2 mg/dL (8.4-10.2) L 12/19/17 05:55 Magnesium 1.80 mg/dL (1.7-2.3) 12/12/17 03:41 Urine Creatinine 122.5 mg/dL (0.1-20.0) H 12/14/17 Unknown
[2017-12-19] MEDS ORDERED: NACL 0.9% 100 ML IV PRN (09:31)
[2017-12-19] MEDS: LANOXIN IV SCH (10:59)
[2017-12-19] MEDS: LOPRESSOR PO SCH ×2 (11:00→22:03)
[2017-12-19] MEDS: XIFAXAN PO SCH ×2 (11:00→22:02)
[2017-12-19] MEDS: PROTONIX FEEDTUBE SCH (11:00)
[2017-12-19] MEDS: CEPHULAC PO SCH ×2 (11:01→22:02)
[2017-12-19] MEDS: PROAMATINE PO SCH ×3 (11:01→22:02)
[2017-12-19 12:29] LABS: INR 2.23 (0.87-1.13)
--- NOTE | 2017-12-19 22:01 | Progress Note ---
Assessment and Plan Patient awake. Complaining cough. No acute respiratory distress.O2 saturation 97 % on 2 litres O2. - Patient Problems (1) Bilateral pleural effusion Current Visit: No Status: Acute Plan to address problem: Obtaining Ultrasound of chest. (2) Hypovolemic shock Current Visit: Yes Status: Acute Plan to address problem: Improved .Blood pressure 112/51 (3) CARMEN (acute kidney injury) Current Visit: Yes Status: Acute Plan to address problem: Management as per nephrology. (4) Acute hepatic encephalopathy Current Visit: Yes Status: Acute Plan to address problem: Management as per primary care. (5) Alcoholic cirrhosis of liver with ascites Current Visit: Yes Status: Acute Plan to address problem: Management as per primary care. (6) Anemia Current Visit: Yes Status: Acute Plan to address problem: Management as per primary care. Subjective Date of service: 12/19/17 Principal diagnosis: CARMEN on CKD; Acute Encephalopathy; Sepsis Syndrome; Anemia Interval history: Patient awake. Complaining cough. No acute respiratory distress.O2 saturation 97 % on 2 litres O2. Objective Vital Signs - 12hr 12/19/17 12/19/17 12/19/17 10:00 11:00 16:00 Temperature 92 F L 98.6 F Pulse Rate 56 L 92 H 56 L Respiratory 18 93 H 18 Rate Blood Pressure Blood Pressure 104/62 91/54 [Left] O2 Sat by Pulse 96 22 L 98 Oximetry 12/19/17 20:19 Temperature 98.4 F Pulse Rate 56 L Respiratory 20 Rate Blood Pressure 112/51 Blood Pressure [Left] O2 Sat by Pulse 97 Oximetry Constitutional: no acute distress, alert, other (Legally blind.) Eyes: non-icteric ENT: oropharynx moist, other (mallampati 2) Neck: supple, no lymphadenopathy, no JVD, other (no thyromegaly) Effort: mildly labored Ascultation: Bilateral: diminished breath sounds (bases), rhonchi (scant) Percussion: Bilateral: not dull, dull (bases) Cardiovascular: regular rate and rhythm, other (S1,S2, no murmurms, gallops or rubs) Gastrointestinal: normoactive bowel sounds, soft, non-tender, other (distended) Integumentary: rash Extremities: no cyanosis, no edema, pulses normal, no ischemia or petechiae, cool Neurologic: non-focal exam, pupils equal and round, motor strength normal and ( weak), other (somnolent) Psychiatric: other (somnolent; flat affect) CBC and BMP: 12/19/17 05:55 12/19/17 05:55 ABG, PT/INR, D-dimer: ABG POC ABG pH 7.452 (7.35-7.45) H 12/12/17 09:13 POC ABG pCO2 22.2 (35-45) L 12/12/17 09:13 POC ABG pO2 75 (80-105) L 12/12/17 09:13 POC ABG HCO3 15.5 12/12/17 09:13 POC ABG Total CO2 16 12/12/17 09:13 POC ABG O2 Sat 96 12/12/17 09:13 PT/INR, D-dimer PT 26.2 Sec. (12.2-14.9) H 12/19/17 11:46 INR 2.23 (0.87-1.13) H 12/19/17 11:46 D-Dimer 1215.06 ng/mlDDU (0-234) H 12/12/17 19:50 Abnormal lab findings: Abnormal Labs 12/10/17 12/10/17 12/10/17 13:14 13:14 23:05 RBC 2.31 L Hgb 7.3 L Hct 21.5 L MCH MCHC RDW 17.7 H Plt Count 61 L Lymph % (Auto) [place] % (Auto) Lymph # Seg Neutrophils % Seg Neuts % (Manual) 81.0 H Lymphocytes % (Manual) 11.0 L Lymphocytes # (Manual) 0.6 L PT INR APTT Fibrinogen D-Dimer POC ABG pH POC ABG pCO2 POC ABG pO2 Sodium 136 L Potassium 5.2 H Chloride Carbon Dioxide 15 L BUN 47 H Creatinine 5.2 H Glucose 127 H POC Glucose Lactic Acid Calcium Total Bilirubin 3.50 H Direct Bilirubin AST 71 H Ammonia Lactate Dehydrogenase NT-Pro-B Natriuret Pep Total Protein Albumin 2.6 L Lipase Vitamin B12 Urine WBC (Auto) 10.0 H Urine Creatinine Ur Creatinine 24 Hour Crossmatch 12/10/17 12/10/17 12/10/17 23:14 23:14 23:14 RBC Hgb Hct MCH MCHC RDW Plt Count Lymph % (Auto) [place] % (Auto) Lymph # Seg Neutrophils % Seg Neuts % (Manual) Lymphocytes % (Manual) Lymphocytes # (Manual) PT INR APTT Fibrinogen D-Dimer POC ABG pH POC ABG pCO2 POC ABG pO2 Sodium Potassium Chloride Carbon Dioxide BUN Creatinine Glucose POC Glucose Lactic Acid 2.40 H* Calcium Total Bilirubin Direct Bilirubin AST Ammonia 134.0 H Lactate Dehydrogenase NT-Pro-B Natriuret Pep 9558 H Total Protein Albumin Lipase Vitamin B12 Urine WBC (Auto) Urine Creatinine Ur Creatinine 24 Hour Crossmatch 12/10/17 12/11/17 12/11/17 23:14 00:29 03:33 RBC Hgb Hct MCH MCHC RDW Plt Count Lymph % (Auto) [place] % (Auto) Lymph # Seg Neutrophils % Seg Neuts % (Manual) Lymphocytes % (Manual) Lymphocytes # (Manual) PT INR APTT Fibrinogen D-Dimer POC ABG pH POC ABG pCO2 POC ABG pO2 Sodium Potassium Chloride Carbon Dioxide BUN Creatinine Glucose POC Glucose Lactic Acid 2.80 H* 3.00 H* Calcium Total Bilirubin Direct Bilirubin AST Ammonia Lactate Dehydrogenase NT-Pro-B Natriuret Pep Total Protein Albumin Lipase 7 L Vitamin B12 Urine WBC (Auto) Urine Creatinine Ur Creatinine 24 Hour Crossmatch 12/11/17 12/11/17 12/11/17 04:08 04:34 04:34 RBC Hgb Hct MCH MCHC RDW Plt Count Lymph % (Auto) [place] % (Auto) Lymph # Seg Neutrophils % Seg Neuts % (Manual) Lymphocytes % (Manual) Lymphocytes # (Manual) PT 19.1 H INR 1.51 H APTT 45.7 H Fibrinogen D-Dimer POC ABG pH POC ABG pCO2 POC ABG pO2 Sodium Potassium Chloride Carbon Dioxide BUN Creatinine Glucose POC Glucose 113 H Lactic Acid 3.10 H* Calcium Total Bilirubin Direct Bilirubin AST Ammonia Lactate Dehydrogenase NT-Pro-B Natriuret Pep Total Protein Albumin Lipase Vitamin B12 Urine WBC (Auto) Urine Creatinine Ur Creatinine 24 Hour Crossmatch 12/11/17 12/11/17 12/11/17 06:46 07:26 09:42 RBC Hgb Hct MCH MCHC RDW Plt Count Lymph % (Auto) [place] % (Auto) Lymph # Seg Neutrophils % Seg Neuts % (Manual) Lymphocytes % (Manual) Lymphocytes # (Manual) PT INR APTT Fibrinogen D-Dimer POC ABG pH POC ABG pCO2 POC ABG pO2 Sodium Potassium Chloride Carbon Dioxide BUN Creatinine Glucose POC Glucose Lactic Acid 2.70 H* 2.80 H* 2.90 H* Calcium Total Bilirubin Direct Bilirubin AST Ammonia Lactate Dehydrogenase NT-Pro-B Natriuret Pep Total Protein Albumin Lipase Vitamin B12 Urine WBC (Auto) Urine Creatinine Ur Creatinine 24 Hour Crossmatch 12/11/17 12/11/17 12/11/17 13:12 14:06 23:14 RBC Hgb Hct MCH MCHC RDW Plt Count Lymph % (Auto) [place] % (Auto) Lymph # Seg Neutrophils % Seg Neuts % (Manual) Lymphocytes % (Manual) Lymphocytes # (Manual) PT INR APTT Fibrinogen D-Dimer POC ABG pH POC ABG pCO2 POC ABG pO2 Sodium Potassium Chloride Carbon Dioxide BUN Creatinine Glucose POC Glucose Lactic Acid 3.10 H* 3.10 H* 3.70 H* Calcium Total Bilirubin Direct Bilirubin AST Ammonia Lactate Dehydrogenase NT-Pro-B Natriuret Pep Total Protein Albumin Lipase Vitamin B12 Urine WBC (Auto) Urine Creatinine Ur Creatinine 24 Hour Crossmatch 12/11/17 12/12/17 12/12/17 23:23 03:41 03:41 RBC 2.17 L Hgb 7.0 L Hct 19.9 L* MCH 33 H MCHC 35 H RDW 17.7 H Plt Count 62 L Lymph % (Auto) [place] % (Auto) Lymph # Seg Neutrophils % Seg Neuts % (Manual) 91.0 H Lymphocytes % (Manual) 3.0 L Lymphocytes # (Manual) 0.2 L PT INR APTT Fibrinogen D-Dimer POC ABG pH POC ABG pCO2 POC ABG pO2 Sodium Potassium 5.4 H Chloride Carbon Dioxide 12 L BUN 47 H Creatinine 4.5 H Glucose 103 H POC Glucose Lactic Acid Calcium 8.0 L Total Bilirubin 3.60 H Direct Bilirubin AST 58 H Ammonia Lactate Dehydrogenase NT-Pro-B Natriuret Pep Total Protein 5.9 L Albumin 2.5 L Lipase Vitamin B12 Urine WBC (Auto) Urine Creatinine Ur Creatinine 24 Hour Crossmatch See Detail 12/12/17 12/12/17 12/12/17 07:00 09:13 17:55 RBC 2.06 L Hgb 6.6 L Hct 18.6 L* MCH MCHC 36 H RDW 17.8 H Plt Count 77 L Lymph % (Auto) [place] % (Auto) Lymph # Seg Neutrophils % Seg Neuts % (Manual) Lymphocytes % (Manual) Lymphocytes # (Manual) PT INR APTT Fibrinogen D-Dimer POC ABG pH 7.452 H POC ABG pCO2 22.2 L POC ABG pO2 75 L Sodium Potassium Chloride Carbon Dioxide BUN Creatinine Glucose POC Glucose 119 H Lactic Acid Calcium Total Bilirubin Direct Bilirubin AST Ammonia Lactate Dehydrogenase NT-Pro-B Natriuret Pep Total Protein Albumin Lipase Vitamin B12 Urine WBC (Auto) Urine Creatinine Ur Creatinine 24 Hour Crossmatch 12/12/17 12/12/17 12/12/17 19:50 19:50 19:50 RBC 2.40 L Hgb 7.8 L Hct 21.3 L MCH 33 H MCHC 37 H RDW 16.1 H Plt Count 99 L Lymph % (Auto) [place] % (Auto) Lymph # Seg Neutrophils % Seg Neuts % (Manual) 87.0 H Lymphocytes % (Manual) 5.0 L Lymphocytes # (Manual) 0.3 L PT 21.9 H INR 1.79 H APTT 41.5 H Fibrinogen 128 L D-Dimer 1215.06 H POC ABG pH POC ABG pCO2 POC ABG pO2 Sodium Potassium Chloride Carbon Dioxide BUN Creatinine Glucose POC Glucose Lactic Acid Calcium Total Bilirubin 4.10 H Direct Bilirubin 1.6 H AST Ammonia Lactate Dehydrogenase NT-Pro-B Natriuret Pep Total Protein Albumin Lipase Vitamin B12 Urine WBC (Auto) Urine Creatinine Ur Creatinine 24 Hour Crossmatch 12/12/17 12/12/17 12/12/17 19:50 19:50 23:46 RBC Hgb Hct MCH MCHC RDW Plt Count Lymph % (Auto) [place] % (Auto) Lymph # Seg Neutrophils % Seg Neuts % (Manual) Lymphocytes % (Manual) Lymphocytes # (Manual) PT INR APTT Fibrinogen D-Dimer POC ABG pH POC ABG pCO2 POC ABG pO2 Sodium Potassium Chloride Carbon Dioxide BUN Creatinine Glucose POC Glucose 110 H Lactic Acid Calcium Total Bilirubin Direct Bilirubin AST Ammonia Lactate Dehydrogenase 213 H NT-Pro-B Natriuret Pep Total Protein Albumin Lipase Vitamin B12 1465 H Urine WBC (Auto) Urine Creatinine Ur Creatinine 24 Hour Crossmatch 12/13/17 12/13/17 12/13/17 04:00 04:00 05:12 RBC 2.32 L Hgb 7.4 L Hct 20.8 L MCH MCHC 36 H RDW 16.1 H Plt Count 134 L Lymph % (Auto) 13.1 L [place] % (Auto) 7.9 H Lymph # 0.8 L Seg Neutrophils % 76.3 H Seg Neuts % (Manual) Lymphocytes % (Manual) Lymphocytes # (Manual) PT INR APTT Fibrinogen D-Dimer POC ABG pH POC ABG pCO2 POC ABG pO2 Sodium Potassium Chloride Carbon Dioxide 21 L D BUN 48 H Creatinine 4.6 H Glucose 104 H POC Glucose 134 H Lactic Acid Calcium 8.1 L Total Bilirubin 4.70 H Direct Bilirubin AST 43 H Ammonia Lactate Dehydrogenase NT-Pro-B Natriuret Pep Total Protein 5.8 L Albumin 3.1 L Lipase Vitamin B12 Urine WBC (Auto) Urine Creatinine Ur Creatinine 24 Hour Crossmatch 12/13/17 12/13/17 12/13/17 08:45 12:25 14:03 RBC Hgb Hct MCH MCHC RDW Plt Count Lymph % (Auto) [place] % (Auto) Lymph # Seg Neutrophils % Seg Neuts % (Manual) Lymphocytes % (Manual) Lymphocytes # (Manual) PT 20.5 H INR 1.65 H APTT Fibrinogen D-Dimer POC ABG pH POC ABG pCO2 POC ABG pO2 Sodium Potassium Chloride Carbon Dioxide BUN Creatinine Glucose POC Glucose 112 H Lactic Acid 3.70 H* Calcium Total Bilirubin Direct Bilirubin AST Ammonia Lactate Dehydrogenase NT-Pro-B Natriuret Pep Total Protein Albumin Lipase Vitamin B12 Urine WBC (Auto) Urine Creatinine Ur Creatinine 24 Hour Crossmatch 12/13/17 12/13/17 12/13/17 14:03 18:52 21:09 RBC Hgb Hct MCH MCHC RDW Plt Count Lymph % (Auto) [place] % (Auto) Lymph # Seg Neutrophils % Seg Neuts % (Manual) Lymphocytes % (Manual) Lymphocytes # (Manual) PT INR APTT Fibrinogen D-Dimer POC ABG pH POC ABG pCO2 POC ABG pO2 Sodium Potassium Chloride Carbon Dioxide BUN Creatinine Glucose POC Glucose 110 H Lactic Acid 4.00 H* Calcium Total Bilirubin Direct Bilirubin AST Ammonia 87.0 H Lactate Dehydrogenase NT-Pro-B Natriuret Pep Total Protein Albumin Lipase Vitamin B12 Urine WBC (Auto) Urine Creatinine Ur Creatinine 24 Hour Crossmatch 12/14/17 12/14/17 12/14/17 00:25 03:30 03:30 RBC 2.29 L Hgb 7.3 L Hct 20.7 L MCH MCHC 35 H RDW 16.2 H Plt Count 84 L Lymph % (Auto) 12.8 L [place] % (Auto) 8.3 H Lymph # 0.6 L Seg Neutrophils % 77.2 H Seg Neuts % (Manual) Lymphocytes % (Manual) Lymphocytes # (Manual) PT INR APTT Fibrinogen D-Dimer POC ABG pH POC ABG pCO2 POC ABG pO2 Sodium Potassium Chloride 96.1 L Carbon Dioxide BUN 48 H Creatinine 4.6 H Glucose 125 H POC Glucose 131 H Lactic Acid Calcium 7.9 L Total Bilirubin 4.70 H Direct Bilirubin AST 45 H Ammonia Lactate Dehydrogenase NT-Pro-B Natriuret Pep Total Protein 6.1 L Albumin 3.4 L Lipase Vitamin B12 Urine WBC (Auto) Urine Creatinine Ur Creatinine 24 Hour Crossmatch 12/14/17 12/14/17 12/14/17 05:31 12:26 12:55 RBC Hgb Hct MCH MCHC RDW Plt Count Lymph % (Auto) [place] % (Auto) Lymph # Seg Neutrophils % Seg Neuts % (Manual) Lymphocytes % (Manual) Lymphocytes # (Manual) PT INR APTT Fibrinogen D-Dimer POC ABG pH POC ABG pCO2 POC ABG pO2 Sodium Potassium Chloride Carbon Dioxide BUN Creatinine Glucose POC Glucose 125 H 117 H Lactic Acid 3.40 H* Calcium Total Bilirubin Direct Bilirubin AST Ammonia Lactate Dehydrogenase NT-Pro-B Natriuret Pep Total Protein Albumin Lipase Vitamin B12 Urine WBC (Auto) Urine Creatinine Ur Creatinine 24 Hour Crossmatch 12/14/17 12/14/17 12/14/17 15:26 17:26 18:07 RBC Hgb Hct MCH MCHC RDW Plt Count Lymph % (Auto) [place] % (Auto) Lymph # Seg Neutrophils % Seg Neuts % (Manual) Lymphocytes % (Manual) Lymphocytes # (Manual) PT INR APTT Fibrinogen D-Dimer POC ABG pH POC ABG pCO2 POC ABG pO2 Sodium Potassium Chloride Carbon Dioxide BUN Creatinine Glucose POC Glucose 143 H Lactic Acid 4.00 H* 3.90 H* Calcium Total Bilirubin Direct Bilirubin AST Ammonia Lactate Dehydrogenase NT-Pro-B Natriuret Pep Total Protein Albumin Lipase Vitamin B12 Urine WBC (Auto) Urine Creatinine Ur Creatinine 24 Hour Crossmatch 12/14/17 12/15/17 12/15/17 Unknown 00:08 04:51 RBC 2.27 L Hgb 7.3 L Hct 20.7 L MCH MCHC 35 H RDW 16.1 H Plt Count 92 L Lymph % (Auto) 12.5 L [place] % (Auto) 10.4 H Lymph # 0.6 L Seg Neutrophils % 74.7 H Seg Neuts % (Manual) Lymphocytes % (Manual) Lymphocytes # (Manual) PT INR APTT Fibrinogen D-Dimer POC ABG pH POC ABG pCO2 POC ABG pO2 Sodium Potassium Chloride Carbon Dioxide BUN Creatinine Glucose POC Glucose 124 H Lactic Acid Calcium Total Bilirubin Direct Bilirubin AST Ammonia Lactate Dehydrogenase NT-Pro-B Natriuret Pep Total Protein Albumin Lipase Vitamin B12 Urine WBC (Auto) Urine Creatinine 122.5 H Ur Creatinine 24 Hour 0.3 L Crossmatch 12/15/17 12/15/17 12/15/17 04:51 04:51 05:56 RBC Hgb Hct MCH MCHC RDW Plt Count Lymph % (Auto) [place] % (Auto) Lymph # Seg Neutrophils % Seg Neuts % (Manual) Lymphocytes % (Manual) Lymphocytes # (Manual) PT INR APTT Fibrinogen D-Dimer POC ABG pH POC ABG pCO2 POC ABG pO2 Sodium Potassium 3.5 L Chloride 92.6 L Carbon Dioxide BUN 50 H Creatinine 4.8 H Glucose 141 H POC Glucose 143 H Lactic Acid Calcium 7.9 L Total Bilirubin 3.60 H Direct Bilirubin AST 44 H Ammonia 24.0 L Lactate Dehydrogenase NT-Pro-B Natriuret Pep Total Protein 6.1 L Albumin 3.8 L Lipase Vitamin B12 Urine WBC (Auto) Urine Creatinine Ur Creatinine 24 Hour Crossmatch 12/15/17 12/15/17 12/16/17 12:17 23:10 07:04 RBC Hgb Hct MCH MCHC RDW Plt Count Lymph % (Auto) [place] % (Auto) Lymph # Seg Neutrophils % Seg Neuts % (Manual) Lymphocytes % (Manual) Lymphocytes # (Manual) PT INR APTT Fibrinogen D-Dimer POC ABG pH POC ABG pCO2 POC ABG pO2 Sodium Potassium Chloride Carbon Dioxide BUN Creatinine Glucose POC Glucose 127 H 157 H 147 H Lactic Acid Calcium Total Bilirubin Direct Bilirubin AST Ammonia Lactate Dehydrogenase NT-Pro-B Natriuret Pep Total Protein Albumin Lipase Vitamin B12 Urine WBC (Auto) Urine Creatinine Ur Creatinine 24 Hour Crossmatch 12/16/17 12/16/17 12/16/17 11:35 12:37 12:37 RBC 2.21 L Hgb 6.9 L Hct 20.2 L MCH MCHC RDW 16.2 H Plt Count 50 L Lymph % (Auto) [place] % (Auto) 9.7 H Lymph # 0.7 L Seg Neutrophils % 73.1 H Seg Neuts % (Manual) Lymphocytes % (Manual) Lymphocytes # (Manual) PT INR APTT Fibrinogen D-Dimer POC ABG pH POC ABG pCO2 POC ABG pO2 Sodium Potassium Chloride 88.2 L Carbon Dioxide BUN 52 H Creatinine 5.5 H Glucose 107 H POC Glucose 134 H Lactic Acid Calcium 7.8 L Total Bilirubin 2.60 H Direct Bilirubin AST 49 H Ammonia Lactate Dehydrogenase NT-Pro-B Natriuret Pep Total Protein Albumin 3.6 L Lipase Vitamin B12 Urine WBC (Auto) Urine Creatinine Ur Creatinine 24 Hour Crossmatch 12/16/17 12/16/17 12/16/17 18:06 20:45 23:34 RBC Hgb Hct MCH MCHC RDW Plt Count Lymph % (Auto) [place] % (Auto) Lymph # Seg Neutrophils % Seg Neuts % (Manual) Lymphocytes % (Manual) Lymphocytes # (Manual) PT INR APTT Fibrinogen D-Dimer POC ABG pH POC ABG pCO2 POC ABG pO2 Sodium Potassium Chloride Carbon Dioxide BUN Creatinine Glucose POC Glucose 133 H 139 H Lactic Acid Calcium Total Bilirubin Direct Bilirubin AST Ammonia Lactate Dehydrogenase NT-Pro-B Natriuret Pep Total Protein Albumin Lipase Vitamin B12 Urine WBC (Auto) Urine Creatinine Ur Creatinine 24 Hour Crossmatch See Detail 12/17/17 12/17/17 12/17/17 05:27 05:27 06:11 RBC 2.10 L Hgb 6.6 L Hct 19.2 L* MCH MCHC 35 H RDW 16.5 H Plt Count 65 L Lymph % (Auto) 12.6 L [place] % (Auto) 9.6 H Lymph # 0.7 L Seg Neutrophils % 75.8 H Seg Neuts % (Manual) Lymphocytes % (Manual) Lymphocytes # (Manual) PT INR APTT Fibrinogen D-Dimer POC ABG pH POC ABG pCO2 POC ABG pO2 Sodium 135 L Potassium 3.4 L Chloride 84.9 L Carbon Dioxide 33 H BUN 53 H Creatinine 5.9 H Glucose POC Glucose 110 H Lactic Acid Calcium 7.7 L Total Bilirubin 2.70 H Direct Bilirubin AST 50 H Ammonia Lactate Dehydrogenase NT-Pro-B Natriuret Pep Total Protein 6.2 L Albumin 3.7 L Lipase Vitamin B12 Urine WBC (Auto) Urine Creatinine Ur Creatinine 24 Hour Crossmatch 12/17/17 12/18/1718 09:34 00:05 05:21 RBC 3.35 L Hgb 10.3 L D Hct 30.4 L D MCH MCHC RDW 16.2 H Plt Count 57 L Lymph % (Auto) 8.0 L [place] % (Auto) 10.9 H Lymph # 0.6 L Seg Neutrophils % 80.2 H Seg Neuts % (Manual) Lymphocytes % (Manual) Lymphocytes # (Manual) PT 23.9 H INR 1.99 H APTT Fibrinogen D-Dimer POC ABG pH POC ABG pCO2 POC ABG pO2 Sodium Potassium Chloride Carbon Dioxide BUN Creatinine Glucose POC Glucose 132 H Lactic Acid Calcium Total Bilirubin Direct Bilirubin AST Ammonia Lactate Dehydrogenase NT-Pro-B Natriuret Pep Total Protein Albumin Lipase Vitamin B12 Urine WBC (Auto) Urine Creatinine Ur Creatinine 24 Hour Crossmatch 12/18/17 12/18/17 12/18/17 05:21 06:16 11:11 RBC Hgb Hct MCH MCHC RDW Plt Count Lymph % (Auto) [place] % (Auto) Lymph # Seg Neutrophils % Seg Neuts % (Manual) Lymphocytes % (Manual) Lymphocytes # (Manual) PT 34.7 H INR 3.17 H APTT Fibrinogen D-Dimer POC ABG pH POC ABG pCO2 POC ABG pO2 Sodium Potassium 3.5 L Chloride 87.1 L Carbon Dioxide BUN 35 H Creatinine 4.3 H Glucose 110 H POC Glucose 116 H Lactic Acid Calcium 8.1 L Total Bilirubin 5.10 H Direct Bilirubin AST 56 H Ammonia Lactate Dehydrogenase NT-Pro-B Natriuret Pep Total Protein Albumin Lipase Vitamin B12 Urine WBC (Auto) Urine Creatinine Ur Creatinine 24 Hour Crossmatch 12/18/17 12/18/17 12/18/17 13:10 17:52 22:04 RBC Hgb Hct MCH MCHC RDW Plt Count Lymph % (Auto) [place] % (Auto) Lymph # Seg Neutrophils % Seg Neuts % (Manual) Lymphocytes % (Manual) Lymphocytes # (Manual) PT 25.9 H INR 2.20 H APTT Fibrinogen D-Dimer POC ABG pH POC ABG pCO2 POC ABG pO2 Sodium Potassium Chloride Carbon Dioxide BUN Creatinine Glucose POC Glucose 114 H 108 H Lactic Acid Calcium Total Bilirubin Direct Bilirubin AST Ammonia Lactate Dehydrogenase NT-Pro-B Natriuret Pep Total Protein Albumin Lipase Vitamin B12 Urine WBC (Auto) Urine Creatinine Ur Creatinine 24 Hour Crossmatch 12/19/17 12/19/17 12/19/17 05:55 05:55 10:20 RBC 2.85 L Hgb 9.1 L Hct 25.7 L MCH MCHC 35 H RDW 16.4 H Plt Count 61 L Lymph % (Auto) [place] % (Auto) Lymph # Seg Neutrophils % Seg Neuts % (Manual) Lymphocytes % (Manual) Lymphocytes # (Manual) PT INR APTT Fibrinogen D-Dimer POC ABG pH POC ABG pCO2 POC ABG pO2 Sodium Potassium Chloride 94.5 L Carbon Dioxide BUN 27 H Creatinine 3.6 H Glucose POC Glucose 131 H Lactic Acid Calcium 8.2 L Total Bilirubin Direct Bilirubin AST Ammonia Lactate Dehydrogenase NT-Pro-B Natriuret Pep Total Protein Albumin Lipase Vitamin B12 Urine WBC (Auto) Urine Creatinine Ur Creatinine 24 Hour Crossmatch 12/19/17 11:46 RBC Hgb Hct MCH MCHC RDW Plt Count Lymph % (Auto) [place] % (Auto) Lymph # Seg Neutrophils % Seg Neuts % (Manual) Lymphocytes % (Manual) Lymphocytes # (Manual) PT 26.2 H INR 2.23 H APTT Fibrinogen D-Dimer POC ABG pH POC ABG pCO2 POC ABG pO2 Sodium Potassium Chloride Carbon Dioxide BUN Creatinine Glucose POC Glucose Lactic Acid Calcium Total Bilirubin Direct Bilirubin AST Ammonia Lactate Dehydrogenase NT-Pro-B Natriuret Pep Total Protein Albumin Lipase Vitamin B12 Urine WBC (Auto) Urine Creatinine Ur Creatinine 24 Hour Crossmatch Allied health notes reviewed: RT
--- NOTE | 2017-12-19 22:13 | Progress Note ---
Assessment and Plan - Patient Problems (1) Acute hepatic encephalopathy Current Visit: Yes Status: Acute Plan to address problem: see orders. continue with lactulose, recheck ammonia level. continue same. (2) Anemia Current Visit: Yes Status: Acute Plan to address problem: see orders. Replacement transfusion, if hgb less than 7.0 same as above. see notes above. same as above, stable. (3) Renal failure Current Visit: Yes Status: Acute Plan to address problem: follow renal service. (4) Liver failure Current Visit: Yes Status: Acute Plan to address problem: Hepato-renal syndrome, continue with HD. Subjective Date of service: 12/19/17 Principal diagnosis: CARMEN on CKD; Acute Encephalopathy; Sepsis Syndrome; Anemia Interval history: Patient seen, restingm labs/notes reviewed. agree with management so far.labs showing consumptive coagulopathy. Patient seen, resting in bed, records/labs reviewed.PLT dropped some.Still no active bleeding. Patient seen/examined, records/labs / notes reviewed, hgb low at 6.9, will rec replacement transfusion,with HD tomorrow if planned to proceed with HD. Patient seen, resting in bed, labs/records reviewed, Hgb still low, transfusion written for today. Patient seen, resting in bed, labs reviewed, plt 57,000, rectal bleeding resolved, will continue to monitor patient/labs with you, and intervene with replacement transfusion, when needed. Patient seen, resting in bed, NAD, records reviewed. Objective - Constitutional Vitals: Vital Signs - 12hr 12/19/17 12/19/17 12/19/17 11:00 16:00 20:19 Temperature 92 F L 98.6 F 98.4 F Pulse Rate 92 H 56 L 56 L Respiratory 93 H 18 20 Rate Blood Pressure 112/51 Blood Pressure 104/62 91/54 [Left] O2 Sat by Pulse 22 L 98 97 Oximetry General appearance: Present: no acute distress - EENT Eyes: PERRL, EOM intact ENT: hearing intact, clear oral mucosa Ears: bilateral: normal - Neck Neck: supple, normal ROM - Respiratory Respiratory effort: normal Respiratory: bilateral: CTA - Breasts Breasts: deferred - Cardiovascular Rhythm: regular Heart Sounds: Present: S1 & S2. Absent: gallop, rub Extremities: pulses intact, No edema, normal color, Full ROM - Gastrointestinal General gastrointestinal: Present: soft, non-tender, non-distended, normal bowel sounds Rectal Exam: deferred - Genitourinary Male genitourinary: deferred - Integumentary Integumentary: clear, warm, dry - Musculoskeletal Musculoskeletal: 1, strength equal bilaterally - Neurologic Neurologic: moves all extremities - Psychiatric Psychiatric: memory intact, appropriate mood/affect, intact judgment & insight - Labs CBC & Chem 7: 12/19/17 05:55 12/19/17 05:55 Labs: Abnormal lab results 12/18/17 12/19/17 12/19/17 Range/Units 22:04 05:55 05:55 RBC 2.85 L (3.65-5.03) M/mm3 Hgb 9.1 L (11.8-15.2) gm/dl Hct 25.7 L (35.5-45.6) % MCHC 35 H (32-34) % RDW 16.4 H (13.2-15.2) % Plt Count 61 L (140-440) K/mm3 PT (12.2-14.9) Sec. INR (0.87-1.13) Chloride 94.5 L (98-107) mmol/L BUN 27 H (9-20) mg/dL Creatinine 3.6 H (0.8-1.5) mg/dL POC Glucose 108 H (70-105) Calcium 8.2 L (8.4-10.2) mg/dL 12/19/17 12/19/17 Range/Units 10:20 11:46 RBC (3.65-5.03) M/mm3 Hgb (11.8-15.2) gm/dl Hct (35.5-45.6) % MCHC (32-34) % RDW (13.2-15.2) % Plt Count (140-440) K/mm3 PT 26.2 H (12.2-14.9) Sec. INR 2.23 H (0.87-1.13) Chloride (98-107) mmol/L BUN (9-20) mg/dL Creatinine (0.8-1.5) mg/dL POC Glucose 131 H (70-105) Calcium (8.4-10.2) mg/dL
[2017-12-20] MEDS ORDERED: VITAMIN K (ADULT ONLY) SUB-Q NR (09:00)
--- NOTE | 2017-12-20 09:10 | Progress Note ---
Assessment and Plan Impression: * Nonoliguric CARMEN secondary to ATN vs HRS * Hyperkalemia * sepsis * Severe anemia secondary to ABL * Rectal bleeding * Cirrhosis w/ esophageal varices * Metabolic acidosis * Hyperbilirubinemia * pyuria Plan: * patient remains oliguric . Suspect hepatorenal syndrome, * s/p permcath placement 12/17/17 and initiation of dialysis * Continue dialysis on TTS schudule for now * Acidosis has been corrected * likely has low crcl due to liver disease * strict i/os, avoid nephrotoxins * daily lytes * empiric abx for SBP and UTI * Transfusion pRBC per primary team * Gastroenterology notes appreciated * Medical management of electrolytes * Avoid potential nephrotoxic agents * Dose medications for renal function * Agree with vitamin K * He will also need outpatient dialysis arrangement Subjective Date of service: 12/20/17 Principal diagnosis: CARMEN on CKD; Acute Encephalopathy; Sepsis Syndrome; Anemia Interval history: patient appears more alert today . Knows that he is the hospital and that it is December Objective - Vital Signs Vital signs: Vital Signs - 12hr 12/19/17 12/20/17 12/20/17 22:03 00:24 04:00 Temperature 98.3 F 99.0 F Pulse Rate 55 L 56 L 57 L Respiratory 18 18 Rate Blood Pressure 81/41 88/44 O2 Sat by Pulse 98 98 Oximetry 12/20/17 07:29 Temperature 97.9 F Pulse Rate 57 L Respiratory 18 Rate Blood Pressure 90/47 O2 Sat by Pulse 99 Oximetry - General Appearance General appearance: well-developed, well-nourished, appears stated age EENT: PERRL, mucous membranes moist Neck: no JVD, no thyromegaly, no carotid bruit, supple, other (left IJ permcath in place . Swelling noted over catheter site ) Respiratory: Present: Clear to Ascultation Cardiology: regular, normal heart rate, S1S2, no murmurs Gastrointestinal: normal, normoactive bowel sounds Integumentary: other (1+ edema ) - Lab 12/19/17 05:55 12/19/17 05:55 Most recent lab results Calcium 8.2 mg/dL (8.4-10.2) L 12/19/17 05:55 Magnesium 1.80 mg/dL (1.7-2.3) 12/12/17 03:41 Urine Creatinine 122.5 mg/dL (0.1-20.0) H 12/14/17 Unknown
--- NOTE | 2017-12-20 09:16 | Ultrasound Report ---
ULTRASOUND CHEST INDICATION: Pleural effusions. COMPARISON: 12/11/[address] and 06/15/2017 chest ultrasound. FINDINGS: Sonographic pleural fluid estimation of approximately 1506 mL on the right and 759 mL on the left. CONCLUSION: Bilateral pleural effusions again noted, as described. Thank you for the opportunity to participate in this patient's care.
--- NOTE | 2017-12-20 09:49 | Progress Note ---
Assessment and Plan Assessment and plan: NSVT, resolved. On Lopressor Septic/hypovolemic shock. Resolved. Continue midodrine. Blood and urine cultures are negative. Sepsis Acute blood loss anemia. Transfuse PRBCs as needed. Rectal bleeding. Resolved. No new bleeding episodes since admission. GI reported no plans to scope. We will recall. UTI. Urine cx negative Cirrhosis with esophageal varices. GI following. Patient without signs of active bleeding. If any signs of bleeding we will start octreotide. GI with no plans to scope at this time. Toxic metabolic/hepatic encephalopathy. Patient with elevated ammonia level on admission. Continue to treat with lactulose and underlying causes of sepsis. Ammonia level has normalized and symptoms are improved. Acute on chronic kidney disease. Etiology likely secondary to acute kidney injury from ATN/sepsis/hypotension. Nephrology following. Started dialysis. discussed with Nephrology Hepatorenal syndrome. . Started dialysis. HD catheter placed by Vascular Pleural effusion. IR for right thoracentesis and fluid will be analyzed. Awaiting procedure. INR still high. Vitamin K ordered Coagulopathy from chronic liver disease. Vit K ordered Discussed with patient and at bedside. History Interval history: Feels better, No abdominal pain No fever Hospitalist Physical - Physical exam Narrative exam: Gen:Not in acute distress, lying in bed HEENT:Normocephalic atraumatic Neck: Supple, no JVD Lungs:Decreased breath sounds both bases, no rhonchi, no wheeze Heart:S1 and S2 reg, no murmurs, rubs or gallop Abd: Soft, non tender, non distended, normal bowel sounds Ext: No edema, clubbing or cyanosis Neuro: awake.alert, moves all extremities - Constitutional Vitals: Temp Pulse Resp BP Pulse Ox 97.9 F 57 L 18 90/47 99 12/20/17 07:29 12/20/17 07:29 12/20/17 07:29 12/20/17 07:29 12/20/17 07:29 General appearance: Present: no acute distress Results - Labs CBC & Chem 7: 12/19/17 05:55 12/19/17 05:55 Labs: Laboratory Last Values WBC 8.9 K/mm3 (4.5-11.0) 12/19/17 05:55 RBC 2.85 M/mm3 (3.65-5.03) L 12/19/17 05:55 Hgb 9.1 gm/dl (11.8-15.2) L 12/19/17 05:55 Hct 25.7 % (35.5-45.6) L 12/19/17 05:55 MCV 90 fl (84-94) 12/19/17 05:55 MCH 32 pg (28-32) 12/19/17 05:55 MCHC 35 % (32-34) H 12/19/17 05:55 RDW 16.4 % (13.2-15.2) H 12/19/17 05:55 Plt Count 61 K/mm3 (140-440) L 12/19/17 05:55 Lymph % (Auto) 8.0 % (13.4-35.0) L 12/18/17 05:21 [place] % (Auto) 10.9 % (0.0-7.3) H 12/18/17 05:21 Eos % (Auto) 0.5 % (0.0-4.3) 12/18/17 05:21 Baso % (Auto) 0.4 % (0.0-1.8) 12/18/17 05:21 Lymph # 0.6 K/mm3 (1.2-5.4) L 12/18/17 05:21 Worth # 0.8 K/mm3 (0.0-0.8) 12/18/17 05:21 Eos # 0.0 K/mm3 (0.0-0.4) 12/18/17 05:21 Baso # 0.0 K/mm3 (0.0-0.1) 12/18/17 05:21 Add Manual Diff Complete 12/12/17 19:50 Total Counted 100 12/12/17 19:50 Seg Neutrophils % 80.2 % (40.0-70.0) H 12/18/17 05:21 Seg Neuts % (Manual) 87.0 % (40.0-70.0) H 12/12/17 19:50 Band Neutrophils % 0 % 12/12/17 19:50 Lymphocytes % (Manual) 5.0 % (13.4-35.0) L 12/12/17 19:50 Reactive Lymphs % (Man) 0 % 12/12/17 19:50 Monocytes % (Manual) 6.0 % (0.0-7.3) 12/12/17 19:50 Eosinophils % (Manual) 2.0 % (0.0-4.3) 12/12/17 19:50 Basophils % (Manual) 0 % (0.0-1.8) 12/12/17 19:50 Metamyelocytes % 0 % 12/12/17 19:50 Myelocytes % 0 % 12/12/17 19:50 Promyelocytes % 0 % 12/12/17 19:50 Blast Cells % 0 % 12/12/17 19:50 Nucleated RBC % Not Reportable 12/12/17 19:50 Seg Neutrophils # 5.7 K/mm3 (1.8-7.7) 12/18/17 05:21 Seg Neutrophils # Man 4.9 K/mm3 (1.8-7.7) 12/12/17 19:50 Band Neutrophils # 0.0 K/mm3 12/12/17 19:50 Lymphocytes # (Manual) 0.3 K/mm3 (1.2-5.4) L 12/12/17 19:50 Abs React Lymphs (Man) 0.0 K/mm3 12/12/17 19:50 Monocytes # (Manual) 0.3 K/mm3 (0.0-0.8) 12/12/17 19:50 Eosinophils # (Manual) 0.1 K/mm3 (0.0-0.4) 12/12/17 19:50 Basophils # (Manual) 0.0 K/mm3 (0.0-0.1) 12/12/17 19:50 Metamyelocytes # 0.0 K/mm3 12/12/17 19:50 Myelocytes # 0.0 K/mm3 12/12/17 19:50 Promyelocytes # 0.0 K/mm3 12/12/17 19:50 Blast Cells # 0.0 K/mm3 12/12/17 19:50 WBC Morphology Not Reportable 12/12/17 19:50 Hypersegmented Neuts Not Reportable 12/12/17 19:50 Hyposegmented Neuts Not Reportable 12/12/17 19:50 Hypogranular Neuts Not Reportable 12/12/17 19:50 Smudge Cells Not Reportable 12/12/17 19:50 Toxic Granulation Not Reportable 12/12/17 19:50 Toxic Vacuolation Not Reportable 12/12/17 19:50 Dohle Bodies Not Reportable 12/12/17 19:50 Pelger-Huet Anomaly Not Reportable 12/12/17 19:50 Eriberto Rods Not Reportable 12/12/17 19:50 Platelet Estimate Appears decreased 12/12/17 19:50 Clumped Platelets Not Reportable 12/12/17 19:50 Plt Clumps, EDTA Not Reportable 12/12/17 19:50 Large Platelets 1+ 12/12/17 19:50 Giant Platelets Not Reportable 12/12/17 19:50 Platelet Satelliting Not Reportable 12/12/17 19:50 Plt Morphology Comment Not Reportable 12/12/17 19:50 RBC Morphology Not Reportable 12/12/17 19:50 Dimorphic RBCs Not Reportable 12/12/17 19:50 Polychromasia Not Reportable 12/12/17 19:50 Hypochromasia 1+ 12/12/17 19:50 Poikilocytosis Not Reportable 12/12/17 19:50 Anisocytosis Not Reportable 12/12/17 19:50 Microcytosis Not Reportable 12/12/17 19:50 Macrocytosis Not Reportable 12/12/17 19:50 Spherocytes Not Reportable 12/12/17 19:50 Pappenheimer Bodies Not Reportable 12/12/17 19:50 Sickle Cells Not Reportable 12/12/17 19:50 Target Cells Not Reportable 12/12/17 19:50 Tear Drop Cells Not Reportable 12/12/17 19:50 Ovalocytes Not Reportable 12/12/17 19:50 Helmet Cells Not Reportable 12/12/17 19:50 [place] Bodies Not Reportable 12/12/17 19:50 [place] Not Reportable 12/12/17 19:50 [place] Cells 1+ 12/12/17 19:50 Bite Cells Not Reportable 12/12/17 19:50 Crenated Cell Not Reportable 12/12/17 19:50 Elliptocytes Not Reportable 12/12/17 19:50 Acanthocytes (Spur) 1+ 12/12/17 19:50 Rouleaux Not Reportable 12/12/17 19:50 Hemoglobin C Crystals Not Reportable 12/12/17 19:50 Schistocytes Not Reportable 12/12/17 19:50 Malaria parasites Not Reportable 12/12/17 19:50 ESR 18 mm/Hr (0-20) 12/12/17 19:50 [place]don Bodies Not Reportable 12/12/17 19:50 Hem Pathologist Commnt No 12/12/17 19:50 PT 26.2 Sec. (12.2-14.9) H 12/19/17 11:46 INR 2.23 (0.87-1.13) H 12/19/17 11:46 APTT 41.5 Sec. (24.2-36.6) H 12/12/17 19:50 Fibrinogen 128 mg/dl (211-480) L 12/12/17 19:50 D-Dimer 1215.06 ng/mlDDU (0-234) H 12/12/17 19:50 Factor VIII:C Activity 178 % (50-180) 12/12/17 20:30 POC ABG pH 7.452 (7.35-7.45) H 12/12/17 09:13 POC ABG pCO2 22.2 (35-45) L 12/12/17 09:13 POC ABG pO2 75 (80-105) L 12/12/17 09:13 POC ABG HCO3 15.5 12/12/17 09:13 POC ABG Total CO2 16 12/12/17 09:13 POC ABG O2 Sat 96 12/12/17 09:13 POC ABG Base Excess -8 12/12/17 09:13 FiO2 21 % 12/12/17 09:13 Sodium 142 mmol/L (137-145) 12/19/17 05:55 Potassium 3.9 mmol/L (3.6-5.0) 12/19/17 05:55 Chloride 94.5 mmol/L (98-107) L 12/19/17 05:55 Carbon Dioxide 28 mmol/L (22-30) 12/19/17 05:55 Anion Gap 23 mmol/L 12/19/17 05:55 BUN 27 mg/dL (9-20) H 12/19/17 05:55 Creatinine 3.6 mg/dL (0.8-1.5) H 12/19/17 05:55 Estimated GFR 21 ml/min 12/19/17 05:55 BUN/Creatinine Ratio 8 % 12/19/17 05:55 Glucose 86 mg/dL (75-100) 12/19/17 05:55 POC Glucose 131 (70-105) H 12/19/17 10:20 Lactic Acid 3.90 mmol/L (0.7-2.0) H* 12/14/17 17:26 Calcium 8.2 mg/dL (8.4-10.2) L 12/19/17 05:55 Magnesium 1.80 mg/dL (1.7-2.3) 12/12/17 03:41 Total Bilirubin 5.10 mg/dL (0.1-1.2) H 12/18/17 05:21 Direct Bilirubin 1.6 mg/dL (0-0.2) H 12/12/17 19:50 Indirect Bilirubin 2.5 mg/dL 12/12/17 19:50 AST 56 units/L (5-40) H 12/18/17 05:21 ALT 20 units/L (7-56) 12/18/17 05:21 Alkaline Phosphatase 66 units/L (35-129) 12/18/17 05:21 Ammonia 53.0 umol/L (25-60) 12/18/17 13:10 Lactate Dehydrogenase 213 units/L (91-180) H 12/12/17 19:50 Total Creatine Kinase 64 units/L (55-170) 12/10/17 23:14 C-Reactive Protein 0.30 mg/dL (0.00-1.30) 12/13/17 14:03 NT-Pro-B Natriuret Pep 9558 pg/mL (0-900) H 12/10/17 23:14 Total Protein 6.9 g/dL (6.3-8.2) 12/18/17 05:21 Albumin 4.0 g/dL (3.9-5) 12/18/17 05:21 Albumin/Globulin Ratio 1.4 % 12/18/17 05:21 Lipase 7 units/L (13-60) L 12/10/17 23:14 Vitamin B12 1465 pg/mL (211-911) H 12/12/17 19:50 Folate 14.04 ng/mL (7.3-26.0) 12/12/17 19:50 TSH 2.560 mlU/mL (0.270-4.200) 12/16/17 12:37 Total Cortisol 8.6 mcg/dL () 12/16/17 12:37 Urine Color Yellow (Yellow) 12/10/17 23:05 Urine Turbidity Clear (Clear) 12/10/17 23:05 Urine pH 5.0 (5.0-7.0) 12/10/17 23:05 Ur Specific [place] 1.013 (1.003-1.030) 12/10/17 23:05 Urine Protein <15 mg/dl mg/dL (Negative) 12/10/17 23:05 Urine Glucose (UA) Neg mg/dL (Negative) 12/10/17 23:05 Urine Ketones Neg mg/dL (Negative) 12/10/17 23:05 Urine Blood Neg (Negative) 12/10/17 23:05 Urine Nitrite Neg (Negative) 12/10/17 23:05 Ur Reducing Substances Not Reportable 12/10/17 23:05 Urine Bilirubin Neg (Negative) 12/10/17 23:05 Urine Ictotest Not Reportable 12/10/17 23:05 Urine Urobilinogen < 2.0 mg/dL (<2.0) 12/10/17 23:05 Ur Leukocyte Esterase Sm (Negative) 12/10/17 23:05 Urine WBC (Auto) 10.0 /HPF (0.0-6.0) H 12/10/17 23:05 Urine RBC (Auto) 4.0 /HPF (0.0-6.0) 12/10/17 23:05 U Epithel Cells (Auto) < 1.0 /HPF (0-13.0) 12/10/17 23:05 Urine Mucus Few /HPF 12/10/17 23:05 Urine Total Volume 250 12/14/17 Unknown Urine Creatinine 122.5 mg/dL (0.1-20.0) H 12/14/17 Unknown Ur Creatinine 24 Hour 0.3 (0.8-2.8) L 12/14/17 Unknown Hepatitis A IgM Ab Non-reactive (NonReactive) 12/12/17 19:50 Hep Bs Antigen Non-reactive (Negative) 12/12/17 19:50 Hep B Core IgM Ab Non-reactive (NonReactive) 12/12/17 19:50 Hepatitis C Antibody Non-reactive (NonReactive) 12/12/17 19:50 Miscellaneous Test Flexitest 1 12/12/17 06:42 Blood Type A NEGATIVE 12/16/17 20:45 Antibody Screen Negative 12/16/17 20:45 Direct Antiglob Test Negative 12/12/17 20:41 JOANNE, Poly Interpret Negative 12/12/17 20:41 Crossmatch See Detail 12/16/17 20:45
--- NOTE | 2017-12-20 09:58 | Progress Note ---
Assessment and Plan Anemia s/p transfusion of PRBCs Thromocytopenia, chronic Chronic renal failure initiated on dialysis Hypotension -on midodrine therapy Hx of Cirrhosis with bleeding esophageal varices requiring TIPS 11/2016 Paroxysmal Atrial flutter seen on telemetry normal TSH on beta blockers for suppression Left pleural effusion Echocardiogram shows mild cardiomyopathy with left ventricular ejection fraction 45-50%. There is mild to moderate tricuspid regurgitation, pulmonary artery pressure is 31, and there is a left pleural effusion. Plan: Patient is not a candidate for anticoagulation given underlying liver cirrhosis. We will continue beta blockers and trial of IV digoxin. Subjective Date of service: 12/20/17 Principal diagnosis: CARMEN on CKD; Acute Encephalopathy; Sepsis Syndrome; Anemia Interval history: Patient is resting in bed comfortably. Family member is at bedside. Objective Vital Signs Temp Pulse Resp BP BP Pulse Ox 12/20/17 07:29 97.9 F 57 L 18 90/47 99 12/20/17 04:00 99.0 F 57 L 18 88/44 98 12/20/17 00:24 98.3 F 56 L 18 81/41 98 12/19/17 22:03 55 L 12/19/17 20:19 98.4 F 56 L 20 112/51 97 12/19/17 16:00 98.6 F 56 L 18 91/54 98 12/19/17 11:00 92 F L 92 H 93 H 104/62 22 L 12/19/17 10:00 56 L 18 96 - Physical Examination General: No Apparent Distress HEENT: Positive: PERRL Cardiac: Positive: Reg Rate and Rhythm - Labs and Meds Coagulation 12/19/17 Range/Units 11:46 PT 26.2 H (12.2-14.9) Sec. INR 2.23 H (0.87-1.13) - Allied health notes Allied health notes reviewed: RT
[2017-12-20] MEDS: CEPHULAC PO SCH ×2 (12:33→21:50)
[2017-12-20] MEDS: LOPRESSOR PO SCH ×2 (12:35→21:48)
[2017-12-20] MEDS: LANOXIN IV SCH (12:38)
[2017-12-20] MEDS: PROAMATINE PO SCH ×3 (12:39→21:47)
[2017-12-20] MEDS: PROTONIX FEEDTUBE SCH (13:12)
[2017-12-20] MEDS: XIFAXAN PO SCH ×2 (13:38→21:47)
--- NOTE | 2017-12-20 14:03 | Progress Note ---
Assessment and Plan Patient awake. Complaining cough. No acute respiratory distress.O2 saturation 97 % on 2 litres O2.Patients Ultrasound showed bilateral pleural effusions.Patients platelets are low, INR is high. Holding thoracentesis for time being, since patient is not in respiratory distress. - Patient Problems (1) Bilateral pleural effusion Current Visit: No Status: Acute Plan to address problem: Ultrasound of chest showed bilateral pleural effusion. Patients platelets are low, INR is high. Holding thoracentesis for time being, since patient is not in respiratory distress. (2) Hypovolemic shock Current Visit: Yes Status: Acute Plan to address problem: Improved .Blood pressure 101/53 (3) CARMEN (acute kidney injury) Current Visit: Yes Status: Acute Plan to address problem: Management as per nephrology. (4) Acute hepatic encephalopathy Current Visit: Yes Status: Acute Plan to address problem: Management as per primary care. (5) Alcoholic cirrhosis of liver with ascites Current Visit: Yes Status: Acute Plan to address problem: Management as per primary care. (6) Anemia Current Visit: Yes Status: Acute Plan to address problem: Management as per primary care. Subjective Date of service: 12/20/17 Principal diagnosis: CARMEN on CKD; Acute Encephalopathy; Sepsis Syndrome; Anemia Interval history: Patient awake. No acute respiratory distress.O2 saturation 97% on 2 litres O2.Patients ultrasound showed bilateral pleural effusions.Patients platelets are low, INR is high. Holding thoracentesis for time being, since patient is not in respiratory distress. Objective Vital Signs - 12hr 12/20/17 12/20/17 12/20/17 04:00 07:29 11:00 Temperature 99.0 F 97.9 F 97.9 F Pulse Rate 57 L 57 L 61 Respiratory 18 18 20 Rate Blood Pressure 88/44 90/47 91/51 O2 Sat by Pulse 98 99 Oximetry 12/20/17 12/20/17 12/20/17 11:15 11:30 11:45 Temperature Pulse Rate 61 62 60 Respiratory Rate Blood Pressure 97/59 96/56 104/54 O2 Sat by Pulse Oximetry 12/20/17 12/20/17 12/20/17 12:00 12:15 12:30 Temperature Pulse Rate 59 L 63 61 Respiratory Rate Blood Pressure 103/52 109/58 101/56 O2 Sat by Pulse Oximetry 12/20/17 12/20/17 12/20/17 12:45 13:00 13:15 Temperature Pulse Rate 62 65 66 Respiratory Rate Blood Pressure 101/54 108/53 104/53 O2 Sat by Pulse Oximetry 12/20/17 13:30 Temperature Pulse Rate 62 Respiratory Rate Blood Pressure 101/52 O2 Sat by Pulse Oximetry Constitutional: no acute distress, alert, other (Legally blind.) Eyes: non-icteric ENT: oropharynx moist, other (mallampati 2) Neck: supple, no lymphadenopathy, no JVD, other (no thyromegaly) Effort: mildly labored Ascultation: Bilateral: diminished breath sounds (bases), rhonchi (scant) Percussion: Bilateral: not dull, dull (bases) Cardiovascular: regular rate and rhythm, other (S1,S2, no murmurms, gallops or rubs) Gastrointestinal: normoactive bowel sounds, soft, non-tender, other (distended) Integumentary: rash Extremities: no cyanosis, no edema, pulses normal, no ischemia or petechiae, cool Neurologic: non-focal exam, pupils equal and round, motor strength normal and ( weak), other (somnolent) Psychiatric: other (somnolent; flat affect) CBC and BMP: 12/19/17 05:55 12/19/17 05:55 ABG, PT/INR, D-dimer: ABG POC ABG pH 7.452 (7.35-7.45) H 12/12/17 09:13 POC ABG pCO2 22.2 (35-45) L 12/12/17 09:13 POC ABG pO2 75 (80-105) L 12/12/17 09:13 POC ABG HCO3 15.5 12/12/17 09:13 POC ABG Total CO2 16 12/12/17 09:13 POC ABG O2 Sat 96 12/12/17 09:13 PT/INR, D-dimer PT 26.2 Sec. (12.2-14.9) H 12/19/17 11:46 INR 2.23 (0.87-1.13) H 12/19/17 11:46 D-Dimer 1215.06 ng/mlDDU (0-234) H 12/12/17 19:50 Abnormal lab findings: Abnormal Labs 12/10/17 12/10/17 12/10/17 13:14 13:14 23:05 RBC 2.31 L Hgb 7.3 L Hct 21.5 L MCH MCHC RDW 17.7 H Plt Count 61 L Lymph % (Auto) [place] % (Auto) Lymph # Seg Neutrophils % Seg Neuts % (Manual) 81.0 H Lymphocytes % (Manual) 11.0 L Lymphocytes # (Manual) 0.6 L PT INR APTT Fibrinogen D-Dimer POC ABG pH POC ABG pCO2 POC ABG pO2 Sodium 136 L Potassium 5.2 H Chloride Carbon Dioxide 15 L BUN 47 H Creatinine 5.2 H Glucose 127 H POC Glucose Lactic Acid Calcium Total Bilirubin 3.50 H Direct Bilirubin AST 71 H Ammonia Lactate Dehydrogenase NT-Pro-B Natriuret Pep Total Protein Albumin 2.6 L Lipase Vitamin B12 Urine WBC (Auto) 10.0 H Urine Creatinine Ur Creatinine 24 Hour Crossmatch 12/10/17 12/10/17 12/10/17 23:14 23:14 23:14 RBC Hgb Hct MCH MCHC RDW Plt Count Lymph % (Auto) [place] % (Auto) Lymph # Seg Neutrophils % Seg Neuts % (Manual) Lymphocytes % (Manual) Lymphocytes # (Manual) PT INR APTT Fibrinogen D-Dimer POC ABG pH POC ABG pCO2 POC ABG pO2 Sodium Potassium Chloride Carbon Dioxide BUN Creatinine Glucose POC Glucose Lactic Acid 2.40 H* Calcium Total Bilirubin Direct Bilirubin AST Ammonia 134.0 H Lactate Dehydrogenase NT-Pro-B Natriuret Pep 9558 H Total Protein Albumin Lipase Vitamin B12 Urine WBC (Auto) Urine Creatinine Ur Creatinine 24 Hour Crossmatch 12/10/17 12/11/17 12/11/17 23:14 00:29 03:33 RBC Hgb Hct MCH MCHC RDW Plt Count Lymph % (Auto) [place] % (Auto) Lymph # Seg Neutrophils % Seg Neuts % (Manual) Lymphocytes % (Manual) Lymphocytes # (Manual) PT INR APTT Fibrinogen D-Dimer POC ABG pH POC ABG pCO2 POC ABG pO2 Sodium Potassium Chloride Carbon Dioxide BUN Creatinine Glucose POC Glucose Lactic Acid 2.80 H* 3.00 H* Calcium Total Bilirubin Direct Bilirubin AST Ammonia Lactate Dehydrogenase NT-Pro-B Natriuret Pep Total Protein Albumin Lipase 7 L Vitamin B12 Urine WBC (Auto) Urine Creatinine Ur Creatinine 24 Hour Crossmatch 12/11/17 12/11/17 12/11/17 04:08 04:34 04:34 RBC Hgb Hct MCH MCHC RDW Plt Count Lymph % (Auto) [place] % (Auto) Lymph # Seg Neutrophils % Seg Neuts % (Manual) Lymphocytes % (Manual) Lymphocytes # (Manual) PT 19.1 H INR 1.51 H APTT 45.7 H Fibrinogen D-Dimer POC ABG pH POC ABG pCO2 POC ABG pO2 Sodium Potassium Chloride Carbon Dioxide BUN Creatinine Glucose POC Glucose 113 H Lactic Acid 3.10 H* Calcium Total Bilirubin Direct Bilirubin AST Ammonia Lactate Dehydrogenase NT-Pro-B Natriuret Pep Total Protein Albumin Lipase Vitamin B12 Urine WBC (Auto) Urine Creatinine Ur Creatinine 24 Hour Crossmatch 12/11/17 12/11/17 12/11/17 06:46 07:26 09:42 RBC Hgb Hct MCH MCHC RDW Plt Count Lymph % (Auto) [place] % (Auto) Lymph # Seg Neutrophils % Seg Neuts % (Manual) Lymphocytes % (Manual) Lymphocytes # (Manual) PT INR APTT Fibrinogen D-Dimer POC ABG pH POC ABG pCO2 POC ABG pO2 Sodium Potassium Chloride Carbon Dioxide BUN Creatinine Glucose POC Glucose Lactic Acid 2.70 H* 2.80 H* 2.90 H* Calcium Total Bilirubin Direct Bilirubin AST Ammonia Lactate Dehydrogenase NT-Pro-B Natriuret Pep Total Protein Albumin Lipase Vitamin B12 Urine WBC (Auto) Urine Creatinine Ur Creatinine 24 Hour Crossmatch 12/11/17 12/11/17 12/11/17 13:12 14:06 23:14 RBC Hgb Hct MCH MCHC RDW Plt Count Lymph % (Auto) [place] % (Auto) Lymph # Seg Neutrophils % Seg Neuts % (Manual) Lymphocytes % (Manual) Lymphocytes # (Manual) PT INR APTT Fibrinogen D-Dimer POC ABG pH POC ABG pCO2 POC ABG pO2 Sodium Potassium Chloride Carbon Dioxide BUN Creatinine Glucose POC Glucose Lactic Acid 3.10 H* 3.10 H* 3.70 H* Calcium Total Bilirubin Direct Bilirubin AST Ammonia Lactate Dehydrogenase NT-Pro-B Natriuret Pep Total Protein Albumin Lipase Vitamin B12 Urine WBC (Auto) Urine Creatinine Ur Creatinine 24 Hour Crossmatch 12/11/17 12/12/17 12/12/17 23:23 03:41 03:41 RBC 2.17 L Hgb 7.0 L Hct 19.9 L* MCH 33 H MCHC 35 H RDW 17.7 H Plt Count 62 L Lymph % (Auto) [place] % (Auto) Lymph # Seg Neutrophils % Seg Neuts % (Manual) 91.0 H Lymphocytes % (Manual) 3.0 L Lymphocytes # (Manual) 0.2 L PT INR APTT Fibrinogen D-Dimer POC ABG pH POC ABG pCO2 POC ABG pO2 Sodium Potassium 5.4 H Chloride Carbon Dioxide 12 L BUN 47 H Creatinine 4.5 H Glucose 103 H POC Glucose Lactic Acid Calcium 8.0 L Total Bilirubin 3.60 H Direct Bilirubin AST 58 H Ammonia Lactate Dehydrogenase NT-Pro-B Natriuret Pep Total Protein 5.9 L Albumin 2.5 L Lipase Vitamin B12 Urine WBC (Auto) Urine Creatinine Ur Creatinine 24 Hour Crossmatch See Detail 12/12/17 12/12/17 12/12/17 07:00 09:13 17:55 RBC 2.06 L Hgb 6.6 L Hct 18.6 L* MCH MCHC 36 H RDW 17.8 H Plt Count 77 L Lymph % (Auto) [place] % (Auto) Lymph # Seg Neutrophils % Seg Neuts % (Manual) Lymphocytes % (Manual) Lymphocytes # (Manual) PT INR APTT Fibrinogen D-Dimer POC ABG pH 7.452 H POC ABG pCO2 22.2 L POC ABG pO2 75 L Sodium Potassium Chloride Carbon Dioxide BUN Creatinine Glucose POC Glucose 119 H Lactic Acid Calcium Total Bilirubin Direct Bilirubin AST Ammonia Lactate Dehydrogenase NT-Pro-B Natriuret Pep Total Protein Albumin Lipase Vitamin B12 Urine WBC (Auto) Urine Creatinine Ur Creatinine 24 Hour Crossmatch 12/12/17 12/12/17 12/12/17 19:50 19:50 19:50 RBC 2.40 L Hgb 7.8 L Hct 21.3 L MCH 33 H MCHC 37 H RDW 16.1 H Plt Count 99 L Lymph % (Auto) [place] % (Auto) Lymph # Seg Neutrophils % Seg Neuts % (Manual) 87.0 H Lymphocytes % (Manual) 5.0 L Lymphocytes # (Manual) 0.3 L PT 21.9 H INR 1.79 H APTT 41.5 H Fibrinogen 128 L D-Dimer 1215.06 H POC ABG pH POC ABG pCO2 POC ABG pO2 Sodium Potassium Chloride Carbon Dioxide BUN Creatinine Glucose POC Glucose Lactic Acid Calcium Total Bilirubin 4.10 H Direct Bilirubin 1.6 H AST Ammonia Lactate Dehydrogenase NT-Pro-B Natriuret Pep Total Protein Albumin Lipase Vitamin B12 Urine WBC (Auto) Urine Creatinine Ur Creatinine 24 Hour Crossmatch 12/12/17 12/12/17 12/12/17 19:50 19:50 23:46 RBC Hgb Hct MCH MCHC RDW Plt Count Lymph % (Auto) [place] % (Auto) Lymph # Seg Neutrophils % Seg Neuts % (Manual) Lymphocytes % (Manual) Lymphocytes # (Manual) PT INR APTT Fibrinogen D-Dimer POC ABG pH POC ABG pCO2 POC ABG pO2 Sodium Potassium Chloride Carbon Dioxide BUN Creatinine Glucose POC Glucose 110 H Lactic Acid Calcium Total Bilirubin Direct Bilirubin AST Ammonia Lactate Dehydrogenase 213 H NT-Pro-B Natriuret Pep Total Protein Albumin Lipase Vitamin B12 1465 H Urine WBC (Auto) Urine Creatinine Ur Creatinine 24 Hour Crossmatch 12/13/17 12/13/17 12/13/17 04:00 04:00 05:12 RBC 2.32 L Hgb 7.4 L Hct 20.8 L MCH MCHC 36 H RDW 16.1 H Plt Count 134 L Lymph % (Auto) 13.1 L [place] % (Auto) 7.9 H Lymph # 0.8 L Seg Neutrophils % 76.3 H Seg Neuts % (Manual) Lymphocytes % (Manual) Lymphocytes # (Manual) PT INR APTT Fibrinogen D-Dimer POC ABG pH POC ABG pCO2 POC ABG pO2 Sodium Potassium Chloride Carbon Dioxide 21 L D BUN 48 H Creatinine 4.6 H Glucose 104 H POC Glucose 134 H Lactic Acid Calcium 8.1 L Total Bilirubin 4.70 H Direct Bilirubin AST 43 H Ammonia Lactate Dehydrogenase NT-Pro-B Natriuret Pep Total Protein 5.8 L Albumin 3.1 L Lipase Vitamin B12 Urine WBC (Auto) Urine Creatinine Ur Creatinine 24 Hour Crossmatch 12/13/17 12/13/17 12/13/17 08:45 12:25 14:03 RBC Hgb Hct MCH MCHC RDW Plt Count Lymph % (Auto) [place] % (Auto) Lymph # Seg Neutrophils % Seg Neuts % (Manual) Lymphocytes % (Manual) Lymphocytes # (Manual) PT 20.5 H INR 1.65 H APTT Fibrinogen D-Dimer POC ABG pH POC ABG pCO2 POC ABG pO2 Sodium Potassium Chloride Carbon Dioxide BUN Creatinine Glucose POC Glucose 112 H Lactic Acid 3.70 H* Calcium Total Bilirubin Direct Bilirubin AST Ammonia Lactate Dehydrogenase NT-Pro-B Natriuret Pep Total Protein Albumin Lipase Vitamin B12 Urine WBC (Auto) Urine Creatinine Ur Creatinine 24 Hour Crossmatch 12/13/17 12/13/17 12/13/17 14:03 18:52 21:09 RBC Hgb Hct MCH MCHC RDW Plt Count Lymph % (Auto) [place] % (Auto) Lymph # Seg Neutrophils % Seg Neuts % (Manual) Lymphocytes % (Manual) Lymphocytes # (Manual) PT INR APTT Fibrinogen D-Dimer POC ABG pH POC ABG pCO2 POC ABG pO2 Sodium Potassium Chloride Carbon Dioxide BUN Creatinine Glucose POC Glucose 110 H Lactic Acid 4.00 H* Calcium Total Bilirubin Direct Bilirubin AST Ammonia 87.0 H Lactate Dehydrogenase NT-Pro-B Natriuret Pep Total Protein Albumin Lipase Vitamin B12 Urine WBC (Auto) Urine Creatinine Ur Creatinine 24 Hour Crossmatch 12/14/17 12/14/17 12/14/17 00:25 03:30 03:30 RBC 2.29 L Hgb 7.3 L Hct 20.7 L MCH MCHC 35 H RDW 16.2 H Plt Count 84 L Lymph % (Auto) 12.8 L [place] % (Auto) 8.3 H Lymph # 0.6 L Seg Neutrophils % 77.2 H Seg Neuts % (Manual) Lymphocytes % (Manual) Lymphocytes # (Manual) PT INR APTT Fibrinogen D-Dimer POC ABG pH POC ABG pCO2 POC ABG pO2 Sodium Potassium Chloride 96.1 L Carbon Dioxide BUN 48 H Creatinine 4.6 H Glucose 125 H POC Glucose 131 H Lactic Acid Calcium 7.9 L Total Bilirubin 4.70 H Direct Bilirubin AST 45 H Ammonia Lactate Dehydrogenase NT-Pro-B Natriuret Pep Total Protein 6.1 L Albumin 3.4 L Lipase Vitamin B12 Urine WBC (Auto) Urine Creatinine Ur Creatinine 24 Hour Crossmatch 12/14/17 12/14/17 12/14/17 05:31 12:26 12:55 RBC Hgb Hct MCH MCHC RDW Plt Count Lymph % (Auto) [place] % (Auto) Lymph # Seg Neutrophils % Seg Neuts % (Manual) Lymphocytes % (Manual) Lymphocytes # (Manual) PT INR APTT Fibrinogen D-Dimer POC ABG pH POC ABG pCO2 POC ABG pO2 Sodium Potassium Chloride Carbon Dioxide BUN Creatinine Glucose POC Glucose 125 H 117 H Lactic Acid 3.40 H* Calcium Total Bilirubin Direct Bilirubin AST Ammonia Lactate Dehydrogenase NT-Pro-B Natriuret Pep Total Protein Albumin Lipase Vitamin B12 Urine WBC (Auto) Urine Creatinine Ur Creatinine 24 Hour Crossmatch 12/14/17 12/14/17 12/14/17 15:26 17:26 18:07 RBC Hgb Hct MCH MCHC RDW Plt Count Lymph % (Auto) [place] % (Auto) Lymph # Seg Neutrophils % Seg Neuts % (Manual) Lymphocytes % (Manual) Lymphocytes # (Manual) PT INR APTT Fibrinogen D-Dimer POC ABG pH POC ABG pCO2 POC ABG pO2 Sodium Potassium Chloride Carbon Dioxide BUN Creatinine Glucose POC Glucose 143 H Lactic Acid 4.00 H* 3.90 H* Calcium Total Bilirubin Direct Bilirubin AST Ammonia Lactate Dehydrogenase NT-Pro-B Natriuret Pep Total Protein Albumin Lipase Vitamin B12 Urine WBC (Auto) Urine Creatinine Ur Creatinine 24 Hour Crossmatch 12/14/17 12/15/17 12/15/17 Unknown 00:08 04:51 RBC 2.27 L Hgb 7.3 L Hct 20.7 L MCH MCHC 35 H RDW 16.1 H Plt Count 92 L Lymph % (Auto) 12.5 L [place] % (Auto) 10.4 H Lymph # 0.6 L Seg Neutrophils % 74.7 H Seg Neuts % (Manual) Lymphocytes % (Manual) Lymphocytes # (Manual) PT INR APTT Fibrinogen D-Dimer POC ABG pH POC ABG pCO2 POC ABG pO2 Sodium Potassium Chloride Carbon Dioxide BUN Creatinine Glucose POC Glucose 124 H Lactic Acid Calcium Total Bilirubin Direct Bilirubin AST Ammonia Lactate Dehydrogenase NT-Pro-B Natriuret Pep Total Protein Albumin Lipase Vitamin B12 Urine WBC (Auto) Urine Creatinine 122.5 H Ur Creatinine 24 Hour 0.3 L Crossmatch 12/15/17 12/15/17 12/15/17 04:51 04:51 05:56 RBC Hgb Hct MCH MCHC RDW Plt Count Lymph % (Auto) [place] % (Auto) Lymph # Seg Neutrophils % Seg Neuts % (Manual) Lymphocytes % (Manual) Lymphocytes # (Manual) PT INR APTT Fibrinogen D-Dimer POC ABG pH POC ABG pCO2 POC ABG pO2 Sodium Potassium 3.5 L Chloride 92.6 L Carbon Dioxide BUN 50 H Creatinine 4.8 H Glucose 141 H POC Glucose 143 H Lactic Acid Calcium 7.9 L Total Bilirubin 3.60 H Direct Bilirubin AST 44 H Ammonia 24.0 L Lactate Dehydrogenase NT-Pro-B Natriuret Pep Total Protein 6.1 L Albumin 3.8 L Lipase Vitamin B12 Urine WBC (Auto) Urine Creatinine Ur Creatinine 24 Hour Crossmatch 12/15/17 12/15/17 12/16/17 12:17 23:10 07:04 RBC Hgb Hct MCH MCHC RDW Plt Count Lymph % (Auto) [place] % (Auto) Lymph # Seg Neutrophils % Seg Neuts % (Manual) Lymphocytes % (Manual) Lymphocytes # (Manual) PT INR APTT Fibrinogen D-Dimer POC ABG pH POC ABG pCO2 POC ABG pO2 Sodium Potassium Chloride Carbon Dioxide BUN Creatinine Glucose POC Glucose 127 H 157 H 147 H Lactic Acid Calcium Total Bilirubin Direct Bilirubin AST Ammonia Lactate Dehydrogenase NT-Pro-B Natriuret Pep Total Protein Albumin Lipase Vitamin B12 Urine WBC (Auto) Urine Creatinine Ur Creatinine 24 Hour Crossmatch 12/16/17 12/16/17 12/16/17 11:35 12:37 12:37 RBC 2.21 L Hgb 6.9 L Hct 20.2 L MCH MCHC RDW 16.2 H Plt Count 50 L Lymph % (Auto) [place] % (Auto) 9.7 H Lymph # 0.7 L Seg Neutrophils % 73.1 H Seg Neuts % (Manual) Lymphocytes % (Manual) Lymphocytes # (Manual) PT INR APTT Fibrinogen D-Dimer POC ABG pH POC ABG pCO2 POC ABG pO2 Sodium Potassium Chloride 88.2 L Carbon Dioxide BUN 52 H Creatinine 5.5 H Glucose 107 H POC Glucose 134 H Lactic Acid Calcium 7.8 L Total Bilirubin 2.60 H Direct Bilirubin AST 49 H Ammonia Lactate Dehydrogenase NT-Pro-B Natriuret Pep Total Protein Albumin 3.6 L Lipase Vitamin B12 Urine WBC (Auto) Urine Creatinine Ur Creatinine 24 Hour Crossmatch 12/16/17 12/16/17 12/16/17 18:06 20:45 23:34 RBC Hgb Hct MCH MCHC RDW Plt Count Lymph % (Auto) [place] % (Auto) Lymph # Seg Neutrophils % Seg Neuts % (Manual) Lymphocytes % (Manual) Lymphocytes # (Manual) PT INR APTT Fibrinogen D-Dimer POC ABG pH POC ABG pCO2 POC ABG pO2 Sodium Potassium Chloride Carbon Dioxide BUN Creatinine Glucose POC Glucose 133 H 139 H Lactic Acid Calcium Total Bilirubin Direct Bilirubin AST Ammonia Lactate Dehydrogenase NT-Pro-B Natriuret Pep Total Protein Albumin Lipase Vitamin B12 Urine WBC (Auto) Urine Creatinine Ur Creatinine 24 Hour Crossmatch See Detail 12/17/17 12/17/17 12/17/17 05:27 05:27 06:11 RBC 2.10 L Hgb 6.6 L Hct 19.2 L* MCH MCHC 35 H RDW 16.5 H Plt Count 65 L Lymph % (Auto) 12.6 L [place] % (Auto) 9.6 H Lymph # 0.7 L Seg Neutrophils % 75.8 H Seg Neuts % (Manual) Lymphocytes % (Manual) Lymphocytes # (Manual) PT INR APTT Fibrinogen D-Dimer POC ABG pH POC ABG pCO2 POC ABG pO2 Sodium 135 L Potassium 3.4 L Chloride 84.9 L Carbon Dioxide 33 H BUN 53 H Creatinine 5.9 H Glucose POC Glucose 110 H Lactic Acid Calcium 7.7 L Total Bilirubin 2.70 H Direct Bilirubin AST 50 H Ammonia Lactate Dehydrogenase NT-Pro-B Natriuret Pep Total Protein 6.2 L Albumin 3.7 L Lipase Vitamin B12 Urine WBC (Auto) Urine Creatinine Ur Creatinine 24 Hour Crossmatch 12/17/17 12/18/17 12/18/17 09:34 00:05 05:21 RBC 3.35 L Hgb 10.3 L D Hct 30.4 L D MCH MCHC RDW 16.2 H Plt Count 57 L Lymph % (Auto) 8.0 L [place] % (Auto) 10.9 H Lymph # 0.6 L Seg Neutrophils % 80.2 H Seg Neuts % (Manual) Lymphocytes % (Manual) Lymphocytes # (Manual) PT 23.9 H INR 1.99 H APTT Fibrinogen D-Dimer POC ABG pH POC ABG pCO2 POC ABG pO2 Sodium Potassium Chloride Carbon Dioxide BUN Creatinine Glucose POC Glucose 132 H Lactic Acid Calcium Total Bilirubin Direct Bilirubin AST Ammonia Lactate Dehydrogenase NT-Pro-B Natriuret Pep Total Protein Albumin Lipase Vitamin B12 Urine WBC (Auto) Urine Creatinine Ur Creatinine 24 Hour Crossmatch 12/18/17 12/18/17 12/18/17 05:21 06:16 11:11 RBC Hgb Hct MCH MCHC RDW Plt Count Lymph % (Auto) [place] % (Auto) Lymph # Seg Neutrophils % Seg Neuts % (Manual) Lymphocytes % (Manual) Lymphocytes # (Manual) PT 34.7 H INR 3.17 H APTT Fibrinogen D-Dimer POC ABG pH POC ABG pCO2 POC ABG pO2 Sodium Potassium 3.5 L Chloride 87.1 L Carbon Dioxide BUN 35 H Creatinine 4.3 H Glucose 110 H POC Glucose 116 H Lactic Acid Calcium 8.1 L Total Bilirubin 5.10 H Direct Bilirubin AST 56 H Ammonia Lactate Dehydrogenase NT-Pro-B Natriuret Pep Total Protein Albumin Lipase Vitamin B12 Urine WBC (Auto) Urine Creatinine Ur Creatinine 24 Hour Crossmatch 12/18/17 12/18/17 12/18/17 13:10 17:52 22:04 RBC Hgb Hct MCH MCHC RDW Plt Count Lymph % (Auto) [place] % (Auto) Lymph # Seg Neutrophils % Seg Neuts % (Manual) Lymphocytes % (Manual) Lymphocytes # (Manual) PT 25.9 H INR 2.20 H APTT Fibrinogen D-Dimer POC ABG pH POC ABG pCO2 POC ABG pO2 Sodium Potassium Chloride Carbon Dioxide BUN Creatinine Glucose POC Glucose 114 H 108 H Lactic Acid Calcium Total Bilirubin Direct Bilirubin AST Ammonia Lactate Dehydrogenase NT-Pro-B Natriuret Pep Total Protein Albumin Lipase Vitamin B12 Urine WBC (Auto) Urine Creatinine Ur Creatinine 24 Hour Crossmatch 12/19/17 12/19/17 12/19/17 05:55 05:55 10:20 RBC 2.85 L Hgb 9.1 L Hct 25.7 L MCH MCHC 35 H RDW 16.4 H Plt Count 61 L Lymph % (Auto) [place] % (Auto) Lymph # Seg Neutrophils % Seg Neuts % (Manual) Lymphocytes % (Manual) Lymphocytes # (Manual) PT INR APTT Fibrinogen D-Dimer POC ABG pH POC ABG pCO2 POC ABG pO2 Sodium Potassium Chloride 94.5 L Carbon Dioxide BUN 27 H Creatinine 3.6 H Glucose POC Glucose 131 H Lactic Acid Calcium 8.2 L Total Bilirubin Direct Bilirubin AST Ammonia Lactate Dehydrogenase NT-Pro-B Natriuret Pep Total Protein Albumin Lipase Vitamin B12 Urine WBC (Auto) Urine Creatinine Ur Creatinine 24 Hour Crossmatch 12/19/17 11:46 RBC Hgb Hct MCH MCHC RDW Plt Count Lymph % (Auto) [place] % (Auto) Lymph # Seg Neutrophils % Seg Neuts % (Manual) Lymphocytes % (Manual) Lymphocytes # (Manual) PT 26.2 H INR 2.23 H APTT Fibrinogen D-Dimer POC ABG pH POC ABG pCO2 POC ABG pO2 Sodium Potassium Chloride Carbon Dioxide BUN Creatinine Glucose POC Glucose Lactic Acid Calcium Total Bilirubin Direct Bilirubin AST Ammonia Lactate Dehydrogenase NT-Pro-B Natriuret Pep Total Protein Albumin Lipase Vitamin B12 Urine WBC (Auto) Urine Creatinine Ur Creatinine 24 Hour Crossmatch Additional Studies: Ultrasound of chest reported bilateral effusions, more on right side. Allied health notes reviewed: RT
[2017-12-20] MEDS ORDERED: NACL 0.9% 1000 ML 2,000 ML ONE (19:13)
--- NOTE | 2017-12-20 21:39 | Progress Note ---
Assessment and Plan - Patient Problems (1) Acute hepatic encephalopathy Current Visit: Yes Status: Acute Plan to address problem: see orders. continue with lactulose, recheck ammonia level. continue same. (2) Anemia Current Visit: Yes Status: Acute Plan to address problem: see orders. Replacement transfusion, if hgb less than 7.0 same as above. see notes above. same as above, stable. (3) Renal failure Current Visit: Yes Status: Acute Plan to address problem: follow renal service. (4) Liver failure Current Visit: Yes Status: Acute Plan to address problem: Hepato-renal syndrome, continue with HD. Subjective Date of service: 12/20/17 Principal diagnosis: CARMEN on CKD; Acute Encephalopathy; Sepsis Syndrome; Anemia Interval history: Patient seen, restingm labs/notes reviewed. agree with management so far.labs showing consumptive coagulopathy. Patient seen, resting in bed, records/labs reviewed.PLT dropped some.Still no active bleeding. Patient seen/examined, records/labs / notes reviewed, hgb low at 6.9, will rec replacement transfusion,with HD tomorrow if planned to proceed with HD. Patient seen, resting in bed, labs/records reviewed, Hgb still low, transfusion written for today. Patient seen, resting in bed, labs reviewed, plt 57,000, rectal bleeding resolved, will continue to monitor patient/labs with you, and intervene with replacement transfusion, when needed. Patient seen, resting in bed, NAD, records reviewed. Patient seen, resting in bed, labs/records reviewed, no new issues, the latest plt fair, no any sign of bleeding. Objective - Constitutional Vitals: Vital Signs - 12hr 12/20/17 12/20/17 12/20/17 10:00 11:00 11:15 Temperature 97.9 F Pulse Rate 61 61 Respiratory 20 20 Rate Blood Pressure 91/51 97/59 O2 Sat by Pulse 95 Oximetry 12/20/17 12/20/17 12/20/17 11:30 11:45 12:00 Temperature Pulse Rate 62 60 59 L Respiratory Rate Blood Pressure 96/56 104/54 103/52 O2 Sat by Pulse Oximetry 12/20/17 12/20/17 12/20/17 12:15 12:30 12:45 Temperature Pulse Rate 63 61 62 Respiratory Rate Blood Pressure 109/58 101/56 101/54 O2 Sat by Pulse Oximetry 12/20/17 12/20/17 12/20/17 13:00 13:15 13:30 Temperature Pulse Rate 65 66 62 Respiratory Rate Blood Pressure 108/53 104/53 101/52 O2 Sat by Pulse Oximetry 12/20/17 12/20/17 12/20/17 13:46 16:10 20:54 Temperature 97.9 F 98.9 F Pulse Rate 63 68 65 Respiratory 16 18 20 Rate Blood Pressure 109/60 118/63 101/53 O2 Sat by Pulse 96 90 Oximetry General appearance: Present: no acute distress - EENT Eyes: PERRL, EOM intact ENT: hearing intact, clear oral mucosa Ears: bilateral: normal - Neck Neck: supple, normal ROM - Respiratory Respiratory: bilateral: rhonchi - Breasts Breasts: deferred - Cardiovascular Rhythm: regular Heart Sounds: Present: S1 & S2. Absent: gallop, rub Extremities: pulses intact, No edema, normal color, Full ROM - Gastrointestinal General gastrointestinal: Present: soft, non-tender, non-distended, normal bowel sounds Rectal Exam: deferred - Integumentary Integumentary: clear, warm, dry - Musculoskeletal Musculoskeletal: 1, strength equal bilaterally - Neurologic Neurologic: moves all extremities - Psychiatric Psychiatric: appropriate mood/affect - Labs CBC & Chem 7: 12/19/17 05:55 12/19/17 05:55
[2017-12-21 05:55] LABS: Basophils # (Auto) 0.1 K/mm3 (0.0-0.1); Basophils % (Auto) 0.6 % (0.0-1.8); Eosinophils # (Auto) 0.1 K/mm3 (0.0-0.4); Eosinophils % (Auto) 1.5 % (0.0-4.3); Hematocrit 23.9 % (35.5-45.6); Hemoglobin 8.4 gm/dl (11.8-15.2); Lymphocytes # (Auto) 1.2 K/mm3 (1.2-5.4); Lymphocytes % (Auto) 12.4 % (13.4-35.0); Mean Corpuscular HGB Conc 35 % (32-34); Mean Corpuscular Hemoglobin 32 pg (28-32); Mean Corpuscular Volume 92 fl (84-94); Monocytes % (Auto) 10.7 % (0.0-7.3); Red Cell Distribution Width 16.2 % (13.2-15.2)
[2017-12-21 06:16] LABS: Platelet Count 57 K/mm3 (140-440)
[2017-12-21] MEDS: XIFAXAN PO SCH ×2 (09:01→22:31)
[2017-12-21] MEDS: PROAMATINE PO SCH ×3 (09:01→22:30)
[2017-12-21] MEDS: LANOXIN IV SCH (09:02)
[2017-12-21] MEDS: PROTONIX FEEDTUBE SCH (09:02)
[2017-12-21] MEDS: LOPRESSOR PO SCH ×2 (09:06→22:30)
--- NOTE | 2017-12-21 09:10 | Progress Note ---
Assessment and Plan Anemia s/p transfusion of PRBCs Thromocytopenia, chronic Chronic renal failure initiated on dialysis Hypotension -on midodrine therapy Hx of Cirrhosis with bleeding esophageal varices requiring TIPS 11/2016 Paroxysmal Atrial flutter seen on telemetry normal TSH on beta blockers for suppression Left pleural effusion Echocardiogram shows mild cardiomyopathy with left ventricular ejection fraction 45-50%. There is mild to moderate tricuspid regurgitation, pulmonary artery pressure is 31, and there is a left pleural effusion. Plan: Patient is considered not a candidate for anticoagulation given underlying liver cirrhosis. Continue beta alejo therapy for suppression of paroxysmal atrial fibrillation. Subjective Date of service: 12/21/17 Principal diagnosis: CARMEN on CKD; Acute Encephalopathy; Sepsis Syndrome; Anemia Interval history: Patient is resting in bed comfortably. He has no complaints. Stable sinus rhythm on telemetry. Objective Vital Signs Temp Pulse Resp BP Pulse Ox 12/21/17 09:06 63 109/59 12/21/17 09:02 63 109/59 12/21/17 07:27 97.9 F 63 18 109/59 96 12/21/17 04:48 98.1 F 62 16 98/54 100 12/21/17 00:30 98.2 F 61 18 92/45 99 12/20/17 22:00 66 12/20/17 21:48 65 101/55 12/20/17 20:54 98.9 F 65 20 101/53 90 12/20/17 16:10 97.9 F 68 18 118/63 96 12/20/17 13:46 63 16 109/60 12/20/17 13:30 62 101/52 12/20/17 13:15 66 104/53 12/20/17 13:00 65 108/53 12/20/17 12:45 62 101/54 12/20/17 12:30 61 101/56 12/20/17 12:15 63 109/58 12/20/17 12:00 59 L 103/52 12/20/17 11:45 60 104/54 12/20/17 11:30 62 96/56 12/20/17 11:15 61 97/59 12/20/17 11:00 97.9 F 61 20 91/51 12/20/17 10:00 20 95 - Physical Examination General: No Apparent Distress HEENT: Positive: PERRL Cardiac: Positive: Reg Rate and Rhythm - Labs and Meds CBC 12/21/17 Range/Units 05:26 WBC 9.4 (4.5-11.0) K/mm3 RBC 2.60 L (3.65-5.03) M/mm3 Hgb 8.4 L (11.8-15.2) gm/dl Hct 23.9 L (35.5-45.6) % Plt Count 57 L (140-440) K/mm3 Lymph # 1.2 (1.2-5.4) K/mm3 Young # 1.0 H (0.0-0.8) K/mm3 Eos # 0.1 (0.0-0.4) K/mm3 Baso # 0.1 (0.0-0.1) K/mm3 - Allied health notes Allied health notes reviewed: RT
[2017-12-21] MEDS: CEPHULAC PO SCH ×2 (09:38→22:31)
[2017-12-21 10:48] LABS: INR 2.26 (0.87-1.13)
--- NOTE | 2017-12-21 10:58 | Progress Note ---
Assessment and Plan Assessment and plan: NSVT, resolved. On Lopressor Septic/hypovolemic shock. Resolved. Continue midodrine. Blood and urine cultures are negative. Sepsis Acute blood loss anemia. Transfuse PRBCs as needed. Rectal bleeding. Resolved. No new bleeding episodes since admission. GI reported no plans to scope UTI. Urine cx negative Cirrhosis with esophageal varices. GI following. Patient without signs of active bleeding. If any signs of bleeding we will start octreotide. GI with no plans to scope at this time. Toxic metabolic/hepatic encephalopathy. Patient with elevated ammonia level on admission. Continue to treat with lactulose and underlying causes of sepsis. Ammonia level has normalized and symptoms are improved. Acute on chronic kidney disease. Etiology likely secondary to acute kidney injury from ATN/sepsis/hypotension. Nephrology following. Started dialysis. Outpatient dialysis set up. Hepatorenal syndrome. . Started dialysis. HD catheter placed by Vascular Bilateral pleural effusion right greater than left. I discussed with pulmonology. For thoracentesis on Sunday. Industrial Energy Engineer recommends giving FFP and obtaining thoracentesis on Sunday Coagulopathy from chronic liver disease. Vit K given but INR still high Discussed with patient and at bedside few days ago Nurse states patient was scheduled to have an evaluation in [place] on 12/30/2017 for possible liver transplant. Will discuss with . History Interval history: Feels better, No abdominal pain No fever Hospitalist Physical - Physical exam Narrative exam: Gen:Not in acute distress, lying in bed HEENT:Normocephalic atraumatic Neck: Supple, no JVD Lungs:Decreased breath sounds both bases, no rhonchi, no wheeze Heart:S1 and S2 reg, no murmurs, rubs or gallop Abd: Soft, non tender, non distended, normal bowel sounds Ext: No edema, clubbing or cyanosis Neuro: awake.alert, moves all extremities,legally blind - Constitutional Vitals: Temp Pulse Resp BP Pulse Ox 97.9 F 63 18 109/59 96 12/21/17 07:27 12/21/17 09:27 12/21/17 07:27 12/21/17 09:06 12/21/17 07:27 General appearance: Present: no acute distress Results - Labs CBC & Chem 7: 12/24/17 04:51 12/24/17 04:51 Labs: Laboratory Last Values WBC 9.4 K/mm3 (4.5-11.0) 12/21/17 05:26 RBC 2.60 M/mm3 (3.65-5.03) L 12/21/17 05:26 Hgb 8.4 gm/dl (11.8-15.2) L 12/21/17 05:26 Hct 23.9 % (35.5-45.6) L 12/21/17 05:26 MCV 92 fl (84-94) 12/21/17 05:26 MCH 32 pg (28-32) 12/21/17 05:26 MCHC 35 % (32-34) H 12/21/17 05:26 RDW 16.2 % (13.2-15.2) H 12/21/17 05:26 Plt Count 57 K/mm3 (140-440) L 12/21/17 05:26 Lymph % (Auto) 12.4 % (13.4-35.0) L 12/21/17 05:26 [place] % (Auto) 10.7 % (0.0-7.3) H 12/21/17 05:26 Eos % (Auto) 1.5 % (0.0-4.3) 12/21/17 05:26 Baso % (Auto) 0.6 % (0.0-1.8) 12/21/17 05:26 Lymph # 1.2 K/mm3 (1.2-5.4) 12/21/17 05:26 [place] # 1.0 K/mm3 (0.0-0.8) H 12/21/17 05:26 Eos # 0.1 K/mm3 (0.0-0.4) 12/21/17 05:26 Baso # 0.1 K/mm3 (0.0-0.1) 12/21/17 05:26 Add Manual Diff Complete 12/12/17 19:50 Total Counted 100 12/12/17 19:50 Seg Neutrophils % 74.8 % (40.0-70.0) H 12/21/17 05:26 Seg Neuts % (Manual) 87.0 % (40.0-70.0) H 12/12/17 19:50 Band Neutrophils % 0 % 12/12/17 19:50 Lymphocytes % (Manual) 5.0 % (13.4-35.0) L 12/12/17 19:50 Reactive Lymphs % (Man) 0 % 12/12/17 19:50 Monocytes % (Manual) 6.0 % (0.0-7.3) 12/12/17 19:50 Eosinophils % (Manual) 2.0 % (0.0-4.3) 12/12/17 19:50 Basophils % (Manual) 0 % (0.0-1.8) 12/12/17 19:50 Metamyelocytes % 0 % 12/12/17 19:50 Myelocytes % 0 % 12/12/17 19:50 Promyelocytes % 0 % 12/12/17 19:50 Blast Cells % 0 % 12/12/17 19:50 Nucleated RBC % Not Reportable 12/12/17 19:50 Seg Neutrophils # 7.0 K/mm3 (1.8-7.7) 12/21/17 05:26 Seg Neutrophils # Man 4.9 K/mm3 (1.8-7.7) 12/12/17 19:50 Band Neutrophils # 0.0 K/mm3 12/12/17 19:50 Lymphocytes # (Manual) 0.3 K/mm3 (1.2-5.4) L 12/12/17 19:50 Abs React Lymphs (Man) 0.0 K/mm3 12/12/17 19:50 Monocytes # (Manual) 0.3 K/mm3 (0.0-0.8) 12/12/17 19:50 Eosinophils # (Manual) 0.1 K/mm3 (0.0-0.4) 12/12/17 19:50 Basophils # (Manual) 0.0 K/mm3 (0.0-0.1) 12/12/17 19:50 Metamyelocytes # 0.0 K/mm3 12/12/17 19:50 Myelocytes # 0.0 K/mm3 12/12/17 19:50 Promyelocytes # 0.0 K/mm3 12/12/17 19:50 Blast Cells # 0.0 K/mm3 12/12/17 19:50 WBC Morphology Not Reportable 12/12/17 19:50 Hypersegmented Neuts Not Reportable 12/12/17 19:50 Hyposegmented Neuts Not Reportable 12/12/17 19:50 Hypogranular Neuts Not Reportable 12/12/17 19:50 Smudge Cells Not Reportable 12/12/17 19:50 Toxic Granulation Not Reportable 12/12/17 19:50 Toxic Vacuolation Not Reportable 12/12/17 19:50 Dohle Bodies Not Reportable 12/12/17 19:50 Pelger-Huet Anomaly Not Reportable 12/12/17 19:50 Eriberto Rods Not Reportable 12/12/17 19:50 Platelet Estimate Appears decreased 12/12/17 19:50 Clumped Platelets Not Reportable 12/12/17 19:50 Plt Clumps, EDTA Not Reportable 12/12/17 19:50 Large Platelets 1+ 12/12/17 19:50 Giant Platelets Not Reportable 12/12/17 19:50 Platelet Satelliting Not Reportable 12/12/17 19:50 Plt Morphology Comment Not Reportable 12/12/17 19:50 RBC Morphology Not Reportable 12/12/17 19:50 Dimorphic RBCs Not Reportable 12/12/17 19:50 Polychromasia Not Reportable 12/12/17 19:50 Hypochromasia 1+ 12/12/17 19:50 Poikilocytosis Not Reportable 12/12/17 19:50 Anisocytosis Not Reportable 12/12/17 19:50 Microcytosis Not Reportable 12/12/17 19:50 Macrocytosis Not Reportable 12/12/17 19:50 Spherocytes Not Reportable 12/12/17 19:50 Pappenheimer Bodies Not Reportable 12/12/17 19:50 Sickle Cells Not Reportable 12/12/17 19:50 Target Cells Not Reportable 12/12/17 19:50 Tear Drop Cells Not Reportable 12/12/17 19:50 Ovalocytes Not Reportable 12/12/17 19:50 Helmet Cells Not Reportable 12/12/17 19:50 Dos Sanots-Nimmons Bodies Not Reportable 12/12/17 19:50 Solo Rings Not Reportable 12/12/17 19:50 [place] Cells 1+ 12/12/17 19:50 Bite Cells Not Reportable 12/12/17 19:50 Crenated Cell Not Reportable 12/12/17 19:50 Elliptocytes Not Reportable 12/12/17 19:50 Acanthocytes (Spur) 1+ 12/12/17 19:50 Rouleaux Not Reportable 12/12/17 19:50 Hemoglobin C Crystals Not Reportable 12/12/17 19:50 Schistocytes Not Reportable 12/12/17 19:50 Malaria parasites Not Reportable 12/12/17 19:50 ESR 18 mm/Hr (0-20) 12/12/17 19:50 Lyndon Bodies Not Reportable 12/12/17 19:50 Hem Pathologist Commnt No 12/12/17 19:50 PT 26.4 Sec. (12.2-14.9) H 12/21/17 09:40 INR 2.26 (0.87-1.13) H 12/21/17 09:40 APTT 41.5 Sec. (24.2-36.6) H 12/12/17 19:50 Fibrinogen 128 mg/dl (211-480) L 12/12/17 19:50 D-Dimer 1215.06 ng/mlDDU (0-234) H 12/12/17 19:50 Factor VIII:C Activity 178 % (50-180) 12/12/17 20:30 POC ABG pH 7.452 (7.35-7.45) H 12/12/17 09:13 POC ABG pCO2 22.2 (35-45) L 12/12/17 09:13 POC ABG pO2 75 (80-105) L 12/12/17 09:13 POC ABG HCO3 15.5 12/12/17 09:13 POC ABG Total CO2 16 12/12/17 09:13 POC ABG O2 Sat 96 12/12/17 09:13 POC ABG Base Excess -8 12/12/17 09:13 FiO2 21 % 12/12/17 09:13 Sodium 142 mmol/L (137-145) 12/19/17 05:55 Potassium 3.9 mmol/L (3.6-5.0) 12/19/17 05:55 Chloride 94.5 mmol/L (98-107) L 12/19/17 05:55 Carbon Dioxide 28 mmol/L (22-30) 12/19/17 05:55 Anion Gap 23 mmol/L 12/19/17 05:55 BUN 27 mg/dL (9-20) H 12/19/17 05:55 Creatinine 3.6 mg/dL (0.8-1.5) H 12/19/17 05:55 Estimated GFR 21 ml/min 12/19/17 05:55 BUN/Creatinine Ratio 8 % 12/19/17 05:55 Glucose 86 mg/dL (75-100) 12/19/17 05:55 POC Glucose 131 (70-105) H 12/19/17 10:20 Lactic Acid 3.90 mmol/L (0.7-2.0) H* 12/14/17 17:26 Calcium 8.2 mg/dL (8.4-10.2) L 12/19/17 05:55 Magnesium 1.80 mg/dL (1.7-2.3) 12/12/17 03:41 Total Bilirubin 5.10 mg/dL (0.1-1.2) H 12/18/17 05:21 Direct Bilirubin 1.6 mg/dL (0-0.2) H 12/12/17 19:50 Indirect Bilirubin 2.5 mg/dL 12/12/17 19:50 AST 56 units/L (5-40) H 12/18/17 05:21 ALT 20 units/L (7-56) 12/18/17 05:21 Alkaline Phosphatase 66 units/L (35-129) 12/18/17 05:21 Ammonia 53.0 umol/L (25-60) 12/18/17 13:10 Lactate Dehydrogenase 213 units/L (91-180) H 12/12/17 19:50 Total Creatine Kinase 64 units/L (55-170) 12/10/17 23:14 C-Reactive Protein 0.30 mg/dL (0.00-1.30) 12/13/17 14:03 NT-Pro-B Natriuret Pep 9558 pg/mL (0-900) H 12/10/17 23:14 Total Protein 6.9 g/dL (6.3-8.2) 12/18/17 05:21 Albumin 4.0 g/dL (3.9-5) 12/18/17 05:21 Albumin/Globulin Ratio 1.4 % 12/18/17 05:21 Lipase 7 units/L (13-60) L 12/10/17 23:14 Vitamin B12 1465 pg/mL (211-911) H 12/12/17 19:50 Folate 14.04 ng/mL (7.3-26.0) 12/12/17 19:50 TSH 2.560 mlU/mL (0.270-4.200) 12/16/17 12:37 Total Cortisol 8.6 mcg/dL () 12/16/17 12:37 Urine Color Yellow (Yellow) 12/10/17 23:05 Urine Turbidity Clear (Clear) 12/10/17 23:05 Urine pH 5.0 (5.0-7.0) 12/10/17 23:05 Ur Specific [place] 1.013 (1.003-1.030) 12/10/17 23:05 Urine Protein <15 mg/dl mg/dL (Negative) 12/10/17 23:05 Urine Glucose (UA) Neg mg/dL (Negative) 12/10/17 23:05 Urine Ketones Neg mg/dL (Negative) 12/10/17 23:05 Urine Blood Neg (Negative) 12/10/17 23:05 Urine Nitrite Neg (Negative) 12/10/17 23:05 Ur Reducing Substances Not Reportable 12/10/17 23:05 Urine Bilirubin Neg (Negative) 12/10/17 23:05 Urine Ictotest Not Reportable 12/10/17 23:05 Urine Urobilinogen < 2.0 mg/dL (<2.0) 12/10/17 23:05 Ur Leukocyte Esterase Sm (Negative) 12/10/17 23:05 Urine WBC (Auto) 10.0 /HPF (0.0-6.0) H 12/10/17 23:05 Urine RBC (Auto) 4.0 /HPF (0.0-6.0) 12/10/17 23:05 U Epithel Cells (Auto) < 1.0 /HPF (0-13.0) 12/10/17 23:05 Urine Mucus Few /HPF 12/10/17 23:05 Urine Total Volume 250 12/14/17 Unknown Urine Creatinine 122.5 mg/dL (0.1-20.0) H 12/14/17 Unknown Ur Creatinine 24 Hour 0.3 (0.8-2.8) L 12/14/17 Unknown Digoxin 0.4 ng/mL (0.9-2.0) L 12/21/17 05:26 Hepatitis A IgM Ab Non-reactive (NonReactive) 12/12/17 19:50 Hep Bs Antigen Non-reactive (Negative) 12/12/17 19:50 Hep B Core IgM Ab Non-reactive (NonReactive) 12/12/17 19:50 Hepatitis C Antibody Non-reactive (NonReactive) 12/12/17 19:50 Miscellaneous Test Flexitest 1 12/12/17 06:42 Blood Type A NEGATIVE 12/16/17 20:45 Antibody Screen Negative 12/16/17 20:45 Direct Antiglob Test Negative 12/12/17 20:41 JOANNE, Poly Interpret Negative 12/12/17 20:41 Crossmatch See Detail 12/16/17 20:45
--- NOTE | 2017-12-21 12:14 | Progress Note ---
Assessment and Plan Impression: * Oliguric CARMEN secondary to ATN vs HRS --s/p permcath placement 12/17/17 and initiation of dialysis * Sepsis * Severe anemia secondary to ABL * Rectal bleeding * Cirrhosis w/ esophageal varices * Hyperbilirubinemia * Pyuria * Metabolic acidosis, resolved * Hyperkalemia, resolved Plan: * Patient remains oliguric w/o evidence of recovery. Continue dialysis on TTS schudule for now * Empiric abx for SBP and UTI * Transfusion pRBC per primary team * Consultants' recommendations reviewed * Medical management of electrolytes * Avoid potential nephrotoxic agents * Dose medications for renal function * Agree with vitamin K * Outpatient dialysis arrangements pending Subjective Date of service: 12/21/17 Principal diagnosis: CARMEN on CKD; Acute Encephalopathy; Sepsis Syndrome; Anemia Interval history: No acute events overnight. Objective - Vital Signs Vital signs: Vital Signs - 12hr 12/21/17 12/21/17 12/21/17 00:30 04:48 07:27 Temperature 98.2 F 98.1 F 97.9 F Pulse Rate 61 62 63 Respiratory 18 16 18 Rate Blood Pressure 92/45 98/54 109/59 O2 Sat by Pulse 99 100 96 Oximetry 12/21/17 12/21/17 12/21/17 09:02 09:06 09:27 Temperature Pulse Rate 63 63 63 Respiratory Rate Blood Pressure 109/59 109/59 O2 Sat by Pulse Oximetry - General Appearance General appearance: well-developed, well-nourished EENT: ATNC Respiratory: Present: Clear to Ascultation Cardiology: regular, S1S2 Gastrointestinal: no tenderness, no distended Integumentary: no rash, warm and dry Neurologic: other (slow to respond to questions) Musculoskeletal: other Psychiatric: cooperative - Lab 12/21/17 05:26 12/19/17 05:55 Most recent lab results Calcium 8.2 mg/dL (8.4-10.2) L 12/19/17 05:55 Magnesium 1.80 mg/dL (1.7-2.3) 12/12/17 03:41 Urine Creatinine 122.5 mg/dL (0.1-20.0) H 12/14/17 Unknown
--- NOTE | 2017-12-21 14:31 | Progress Note ---
Assessment and Plan Patient awake. Complaining cough. No acute respiratory distress.O2 saturation 97 % on 2 litres O2.Patients Ultrasound showed bilateral pleural effusions.Patients platelets are low, INR is high. Holding thoracentesis for time being, since patient is not in respiratory distress. - Patient Problems (1) Bilateral pleural effusion Current Visit: No Status: Acute Plan to address problem: Ultrasound of chest showed bilateral pleural effusion. Patients platelets are low, INR is high. Holding thoracentesis for time being, since patient is not in respiratory distress. (2) Hypovolemic shock Current Visit: Yes Status: Acute Plan to address problem: Improved .Blood pressure 115/67 (3) CARMEN (acute kidney injury) Current Visit: Yes Status: Acute Plan to address problem: Management as per nephrology. (4) Acute hepatic encephalopathy Current Visit: Yes Status: Acute Plan to address problem: Management as per primary care. (5) Alcoholic cirrhosis of liver with ascites Current Visit: Yes Status: Acute Plan to address problem: Management as per primary care. (6) Anemia Current Visit: Yes Status: Acute Plan to address problem: Management as per primary care. Subjective Date of service: 12/21/17 Principal diagnosis: CARMEN on CKD; Acute Encephalopathy; Sepsis Syndrome; Anemia Interval history: Patient sleeping at this time. No acute respiratory distress.O2 saturation 97% on 2 litres O2.Patients ultrasound showed bilateral pleural effusions.Patients platelets are low, INR is high. Holding thoracentesis for time being, since patient is not in respiratory distress. Objective Vital Signs - 12hr 12/21/17 12/21/17 12/21/17 04:48 07:27 09:02 Temperature 98.1 F 97.9 F Pulse Rate 62 63 63 Pulse Rate [ Apical] Respiratory 16 18 Rate Blood Pressure 98/54 109/59 109/59 Blood Pressure [Left] O2 Sat by Pulse 100 96 Oximetry 12/21/17 12/21/17 12/21/17 09:06 09:27 10:00 Temperature Pulse Rate 63 63 Pulse Rate [ 61 Apical] Respiratory Rate Blood Pressure 109/59 Blood Pressure [Left] O2 Sat by Pulse Oximetry 12/21/17 12:24 Temperature 97.9 F Pulse Rate 59 L Pulse Rate [ Apical] Respiratory 18 Rate Blood Pressure Blood Pressure 96/48 [Left] O2 Sat by Pulse 100 Oximetry Constitutional: no acute distress, asleep, other (chronically ill looking elderly AAM, normocephalic and atraumatic) Eyes: non-icteric ENT: oropharynx moist, other (mallampati 2) Neck: supple, no lymphadenopathy, no JVD, other (no thyromegaly) Effort: mildly labored Ascultation: Bilateral: diminished breath sounds (bases), rhonchi (scant) Percussion: Bilateral: not dull, dull (bases) Cardiovascular: regular rate and rhythm, other (S1,S2, no murmurms, gallops or rubs) Gastrointestinal: normoactive bowel sounds, soft, non-tender, other (distended) Integumentary: rash Extremities: no cyanosis, no edema, pulses normal, no ischemia or petechiae, cool Neurologic: non-focal exam, pupils equal and round, motor strength normal and ( weak), other (somnolent) Psychiatric: other (somnolent; flat affect) CBC and BMP: 12/21/17 05:26 12/19/17 05:55 ABG, PT/INR, D-dimer: ABG POC ABG pH 7.452 (7.35-7.45) H 12/12/17 09:13 POC ABG pCO2 22.2 (35-45) L 12/12/17 09:13 POC ABG pO2 75 (80-105) L 12/12/17 09:13 POC ABG HCO3 15.5 12/12/17 09:13 POC ABG Total CO2 16 12/12/17 09:13 POC ABG O2 Sat 96 12/12/17 09:13 PT/INR, D-dimer PT 26.4 Sec. (12.2-14.9) H 12/21/17 09:40 INR 2.26 (0.87-1.13) H 12/21/17 09:40 D-Dimer 1215.06 ng/mlDDU (0-234) H 12/12/17 19:50 Abnormal lab findings: Abnormal Labs 12/10/17 12/10/17 12/10/17 13:14 13:14 23:05 RBC 2.31 L Hgb 7.3 L Hct 21.5 L MCH MCHC RDW 17.7 H Plt Count 61 L Lymph % (Auto) [place] % (Auto) Lymph # [place] # Seg Neutrophils % Seg Neuts % (Manual) 81.0 H Lymphocytes % (Manual) 11.0 L Lymphocytes # (Manual) 0.6 L PT INR APTT Fibrinogen D-Dimer POC ABG pH POC ABG pCO2 POC ABG pO2 Sodium 136 L Potassium 5.2 H Chloride Carbon Dioxide 15 L BUN 47 H Creatinine 5.2 H Glucose 127 H POC Glucose Lactic Acid Calcium Total Bilirubin 3.50 H Direct Bilirubin AST 71 H Ammonia Lactate Dehydrogenase NT-Pro-B Natriuret Pep Total Protein Albumin 2.6 L Lipase Vitamin B12 Urine WBC (Auto) 10.0 H Urine Creatinine Ur Creatinine 24 Hour Digoxin Crossmatch 12/10/17 12/10/17 12/10/17 23:14 23:14 23:14 RBC Hgb Hct MCH MCHC RDW Plt Count Lymph % (Auto) [place] % (Auto) Lymph # [place] # Seg Neutrophils % Seg Neuts % (Manual) Lymphocytes % (Manual) Lymphocytes # (Manual) PT INR APTT Fibrinogen D-Dimer POC ABG pH POC ABG pCO2 POC ABG pO2 Sodium Potassium Chloride Carbon Dioxide BUN Creatinine Glucose POC Glucose Lactic Acid 2.40 H* Calcium Total Bilirubin Direct Bilirubin AST Ammonia 134.0 H Lactate Dehydrogenase NT-Pro-B Natriuret Pep 9558 H Total Protein Albumin Lipase Vitamin B12 Urine WBC (Auto) Urine Creatinine Ur Creatinine 24 Hour Digoxin Crossmatch 12/10/17 12/11/17 12/11/17 23:14 00:29 03:33 RBC Hgb Hct MCH MCHC RDW Plt Count Lymph % (Auto) [place] % (Auto) Lymph # [place] # Seg Neutrophils % Seg Neuts % (Manual) Lymphocytes % (Manual) Lymphocytes # (Manual) PT INR APTT Fibrinogen D-Dimer POC ABG pH POC ABG pCO2 POC ABG pO2 Sodium Potassium Chloride Carbon Dioxide BUN Creatinine Glucose POC Glucose Lactic Acid 2.80 H* 3.00 H* Calcium Total Bilirubin Direct Bilirubin AST Ammonia Lactate Dehydrogenase NT-Pro-B Natriuret Pep Total Protein Albumin Lipase 7 L Vitamin B12 Urine WBC (Auto) Urine Creatinine Ur Creatinine 24 Hour Digoxin Crossmatch 12/11/17 12/11/17 12/11/17 04:08 04:34 04:34 RBC Hgb Hct MCH MCHC RDW Plt Count Lymph % (Auto) [place] % (Auto) Lymph # [place] # Seg Neutrophils % Seg Neuts % (Manual) Lymphocytes % (Manual) Lymphocytes # (Manual) PT 19.1 H INR 1.51 H APTT 45.7 H Fibrinogen D-Dimer POC ABG pH POC ABG pCO2 POC ABG pO2 Sodium Potassium Chloride Carbon Dioxide BUN Creatinine Glucose POC Glucose 113 H Lactic Acid 3.10 H* Calcium Total Bilirubin Direct Bilirubin AST Ammonia Lactate Dehydrogenase NT-Pro-B Natriuret Pep Total Protein Albumin Lipase Vitamin B12 Urine WBC (Auto) Urine Creatinine Ur Creatinine 24 Hour Digoxin Crossmatch 12/11/17 12/11/17 12/11/17 06:46 07:26 09:42 RBC Hgb Hct MCH MCHC RDW Plt Count Lymph % (Auto) [place] % (Auto) Lymph # [place] # Seg Neutrophils % Seg Neuts % (Manual) Lymphocytes % (Manual) Lymphocytes # (Manual) PT INR APTT Fibrinogen D-Dimer POC ABG pH POC ABG pCO2 POC ABG pO2 Sodium Potassium Chloride Carbon Dioxide BUN Creatinine Glucose POC Glucose Lactic Acid 2.70 H* 2.80 H* 2.90 H* Calcium Total Bilirubin Direct Bilirubin AST Ammonia Lactate Dehydrogenase NT-Pro-B Natriuret Pep Total Protein Albumin Lipase Vitamin B12 Urine WBC (Auto) Urine Creatinine Ur Creatinine 24 Hour Digoxin Crossmatch 12/11/17 12/11/17 12/11/17 13:12 14:06 23:14 RBC Hgb Hct MCH MCHC RDW Plt Count Lymph % (Auto) [place] % (Auto) Lymph # [place] # Seg Neutrophils % Seg Neuts % (Manual) Lymphocytes % (Manual) Lymphocytes # (Manual) PT INR APTT Fibrinogen D-Dimer POC ABG pH POC ABG pCO2 POC ABG pO2 Sodium Potassium Chloride Carbon Dioxide BUN Creatinine Glucose POC Glucose Lactic Acid 3.10 H* 3.10 H* 3.70 H* Calcium Total Bilirubin Direct Bilirubin AST Ammonia Lactate Dehydrogenase NT-Pro-B Natriuret Pep Total Protein Albumin Lipase Vitamin B12 Urine WBC (Auto) Urine Creatinine Ur Creatinine 24 Hour Digoxin Crossmatch 12/11/17 12/12/17 12/12/17 23:23 03:41 03:41 RBC 2.17 L Hgb 7.0 L Hct 19.9 L* MCH 33 H MCHC 35 H RDW 17.7 H Plt Count 62 L Lymph % (Auto) [place] % (Auto) Lymph # [place] # Seg Neutrophils % Seg Neuts % (Manual) 91.0 H Lymphocytes % (Manual) 3.0 L Lymphocytes # (Manual) 0.2 L PT INR APTT Fibrinogen D-Dimer POC ABG pH POC ABG pCO2 POC ABG pO2 Sodium Potassium 5.4 H Chloride Carbon Dioxide 12 L BUN 47 H Creatinine 4.5 H Glucose 103 H POC Glucose Lactic Acid Calcium 8.0 L Total Bilirubin 3.60 H Direct Bilirubin AST 58 H Ammonia Lactate Dehydrogenase NT-Pro-B Natriuret Pep Total Protein 5.9 L Albumin 2.5 L Lipase Vitamin B12 Urine WBC (Auto) Urine Creatinine Ur Creatinine 24 Hour Digoxin Crossmatch See Detail 12/12/17 12/12/17 12/12/17 07:00 09:13 17:55 RBC 2.06 L Hgb 6.6 L Hct 18.6 L* MCH MCHC 36 H RDW 17.8 H Plt Count 77 L Lymph % (Auto) [place] % (Auto) Lymph # [place] # Seg Neutrophils % Seg Neuts % (Manual) Lymphocytes % (Manual) Lymphocytes # (Manual) PT INR APTT Fibrinogen D-Dimer POC ABG pH 7.452 H POC ABG pCO2 22.2 L POC ABG pO2 75 L Sodium Potassium Chloride Carbon Dioxide BUN Creatinine Glucose POC Glucose 119 H Lactic Acid Calcium Total Bilirubin Direct Bilirubin AST Ammonia Lactate Dehydrogenase NT-Pro-B Natriuret Pep Total Protein Albumin Lipase Vitamin B12 Urine WBC (Auto) Urine Creatinine Ur Creatinine 24 Hour Digoxin Crossmatch 12/12/17 12/12/17 12/12/17 19:50 19:50 19:50 RBC 2.40 L Hgb 7.8 L Hct 21.3 L MCH 33 H MCHC 37 H RDW 16.1 H Plt Count 99 L Lymph % (Auto) [place] % (Auto) Lymph # [place] # Seg Neutrophils % Seg Neuts % (Manual) 87.0 H Lymphocytes % (Manual) 5.0 L Lymphocytes # (Manual) 0.3 L PT 21.9 H INR 1.79 H APTT 41.5 H Fibrinogen 128 L D-Dimer 1215.06 H POC ABG pH POC ABG pCO2 POC ABG pO2 Sodium Potassium Chloride Carbon Dioxide BUN Creatinine Glucose POC Glucose Lactic Acid Calcium Total Bilirubin 4.10 H Direct Bilirubin 1.6 H AST Ammonia Lactate Dehydrogenase NT-Pro-B Natriuret Pep Total Protein Albumin Lipase Vitamin B12 Urine WBC (Auto) Urine Creatinine Ur Creatinine 24 Hour Digoxin Crossmatch 12/12/17 12/12/17 12/12/17 19:50 19:50 23:46 RBC Hgb Hct MCH MCHC RDW Plt Count Lymph % (Auto) [place] % (Auto) Lymph # [place] # Seg Neutrophils % Seg Neuts % (Manual) Lymphocytes % (Manual) Lymphocytes # (Manual) PT INR APTT Fibrinogen D-Dimer POC ABG pH POC ABG pCO2 POC ABG pO2 Sodium Potassium Chloride Carbon Dioxide BUN Creatinine Glucose POC Glucose 110 H Lactic Acid Calcium Total Bilirubin Direct Bilirubin AST Ammonia Lactate Dehydrogenase 213 H NT-Pro-B Natriuret Pep Total Protein Albumin Lipase Vitamin B12 1465 H Urine WBC (Auto) Urine Creatinine Ur Creatinine 24 Hour Digoxin Crossmatch 12/13/17 12/13/17 12/13/17 04:00 04:00 05:12 RBC 2.32 L Hgb 7.4 L Hct 20.8 L MCH MCHC 36 H RDW 16.1 H Plt Count 134 L Lymph % (Auto) 13.1 L [place] % (Auto) 7.9 H Lymph # 0.8 L [place] # Seg Neutrophils % 76.3 H Seg Neuts % (Manual) Lymphocytes % (Manual) Lymphocytes # (Manual) PT INR APTT Fibrinogen D-Dimer POC ABG pH POC ABG pCO2 POC ABG pO2 Sodium Potassium Chloride Carbon Dioxide 21 L D BUN 48 H Creatinine 4.6 H Glucose 104 H POC Glucose 134 H Lactic Acid Calcium 8.1 L Total Bilirubin 4.70 H Direct Bilirubin AST 43 H Ammonia Lactate Dehydrogenase NT-Pro-B Natriuret Pep Total Protein 5.8 L Albumin 3.1 L Lipase Vitamin B12 Urine WBC (Auto) Urine Creatinine Ur Creatinine 24 Hour Digoxin Crossmatch 12/13/17 12/13/17 12/13/17 08:45 12:25 14:03 RBC Hgb Hct MCH MCHC RDW Plt Count Lymph % (Auto) [place] % (Auto) Lymph # [place] # Seg Neutrophils % Seg Neuts % (Manual) Lymphocytes % (Manual) Lymphocytes # (Manual) PT 20.5 H INR 1.65 H APTT Fibrinogen D-Dimer POC ABG pH POC ABG pCO2 POC ABG pO2 Sodium Potassium Chloride Carbon Dioxide BUN Creatinine Glucose POC Glucose 112 H Lactic Acid 3.70 H* Calcium Total Bilirubin Direct Bilirubin AST Ammonia Lactate Dehydrogenase NT-Pro-B Natriuret Pep Total Protein Albumin Lipase Vitamin B12 Urine WBC (Auto) Urine Creatinine Ur Creatinine 24 Hour Digoxin Crossmatch 12/13/17 12/13/17 12/13/17 14:03 18:52 21:09 RBC Hgb Hct MCH MCHC RDW Plt Count Lymph % (Auto) [place] % (Auto) Lymph # [place] # Seg Neutrophils % Seg Neuts % (Manual) Lymphocytes % (Manual) Lymphocytes # (Manual) PT INR APTT Fibrinogen D-Dimer POC ABG pH POC ABG pCO2 POC ABG pO2 Sodium Potassium Chloride Carbon Dioxide BUN Creatinine Glucose POC Glucose 110 H Lactic Acid 4.00 H* Calcium Total Bilirubin Direct Bilirubin AST Ammonia 87.0 H Lactate Dehydrogenase NT-Pro-B Natriuret Pep Total Protein Albumin Lipase Vitamin B12 Urine WBC (Auto) Urine Creatinine Ur Creatinine 24 Hour Digoxin Crossmatch 12/14/17 12/14/17 12/14/17 00:25 03:30 03:30 RBC 2.29 L Hgb 7.3 L Hct 20.7 L MCH MCHC 35 H RDW 16.2 H Plt Count 84 L Lymph % (Auto) 12.8 L [place] % (Auto) 8.3 H Lymph # 0.6 L [place] # Seg Neutrophils % 77.2 H Seg Neuts % (Manual) Lymphocytes % (Manual) Lymphocytes # (Manual) PT INR APTT Fibrinogen D-Dimer POC ABG pH POC ABG pCO2 POC ABG pO2 Sodium Potassium Chloride 96.1 L Carbon Dioxide BUN 48 H Creatinine 4.6 H Glucose 125 H POC Glucose 131 H Lactic Acid Calcium 7.9 L Total Bilirubin 4.70 H Direct Bilirubin AST 45 H Ammonia Lactate Dehydrogenase NT-Pro-B Natriuret Pep Total Protein 6.1 L Albumin 3.4 L Lipase Vitamin B12 Urine WBC (Auto) Urine Creatinine Ur Creatinine 24 Hour Digoxin Crossmatch 12/14/17 12/14/17 12/14/17 05:31 12:26 12:55 RBC Hgb Hct MCH MCHC RDW Plt Count Lymph % (Auto) [place] % (Auto) Lymph # [place] # Seg Neutrophils % Seg Neuts % (Manual) Lymphocytes % (Manual) Lymphocytes # (Manual) PT INR APTT Fibrinogen D-Dimer POC ABG pH POC ABG pCO2 POC ABG pO2 Sodium Potassium Chloride Carbon Dioxide BUN Creatinine Glucose POC Glucose 125 H 117 H Lactic Acid 3.40 H* Calcium Total Bilirubin Direct Bilirubin AST Ammonia Lactate Dehydrogenase NT-Pro-B Natriuret Pep Total Protein Albumin Lipase Vitamin B12 Urine WBC (Auto) Urine Creatinine Ur Creatinine 24 Hour Digoxin Crossmatch 12/14/17 12/14/17 12/14/17 15:26 17:26 18:07 RBC Hgb Hct MCH MCHC RDW Plt Count Lymph % (Auto) [place] % (Auto) Lymph # [place] # Seg Neutrophils % Seg Neuts % (Manual) Lymphocytes % (Manual) Lymphocytes # (Manual) PT INR APTT Fibrinogen D-Dimer POC ABG pH POC ABG pCO2 POC ABG pO2 Sodium Potassium Chloride Carbon Dioxide BUN Creatinine Glucose POC Glucose 143 H Lactic Acid 4.00 H* 3.90 H* Calcium Total Bilirubin Direct Bilirubin AST Ammonia Lactate Dehydrogenase NT-Pro-B Natriuret Pep Total Protein Albumin Lipase Vitamin B12 Urine WBC (Auto) Urine Creatinine Ur Creatinine 24 Hour Digoxin Crossmatch 12/14/17 12/15/17 12/15/17 Unknown 00:08 04:51 RBC 2.27 L Hgb 7.3 L Hct 20.7 L MCH MCHC 35 H RDW 16.1 H Plt Count 92 L Lymph % (Auto) 12.5 L [place] % (Auto) 10.4 H Lymph # 0.6 L [place] # Seg Neutrophils % 74.7 H Seg Neuts % (Manual) Lymphocytes % (Manual) Lymphocytes # (Manual) PT INR APTT Fibrinogen D-Dimer POC ABG pH POC ABG pCO2 POC ABG pO2 Sodium Potassium Chloride Carbon Dioxide BUN Creatinine Glucose POC Glucose 124 H Lactic Acid Calcium Total Bilirubin Direct Bilirubin AST Ammonia Lactate Dehydrogenase NT-Pro-B Natriuret Pep Total Protein Albumin Lipase Vitamin B12 Urine WBC (Auto) Urine Creatinine 122.5 H Ur Creatinine 24 Hour 0.3 L Digoxin Crossmatch 12/15/17 12/15/17 12/15/17 04:51 04:51 05:56 RBC Hgb Hct MCH MCHC RDW Plt Count Lymph % (Auto) [place] % (Auto) Lymph # [place] # Seg Neutrophils % Seg Neuts % (Manual) Lymphocytes % (Manual) Lymphocytes # (Manual) PT INR APTT Fibrinogen D-Dimer POC ABG pH POC ABG pCO2 POC ABG pO2 Sodium Potassium 3.5 L Chloride 92.6 L Carbon Dioxide BUN 50 H Creatinine 4.8 H Glucose 141 H POC Glucose 143 H Lactic Acid Calcium 7.9 L Total Bilirubin 3.60 H Direct Bilirubin AST 44 H Ammonia 24.0 L Lactate Dehydrogenase NT-Pro-B Natriuret Pep Total Protein 6.1 L Albumin 3.8 L Lipase Vitamin B12 Urine WBC (Auto) Urine Creatinine Ur Creatinine 24 Hour Digoxin Crossmatch 12/15/17 12/15/17 12/16/17 12:17 23:10 07:04 RBC Hgb Hct MCH MCHC RDW Plt Count Lymph % (Auto) [place] % (Auto) Lymph # [place] # Seg Neutrophils % Seg Neuts % (Manual) Lymphocytes % (Manual) Lymphocytes # (Manual) PT INR APTT Fibrinogen D-Dimer POC ABG pH POC ABG pCO2 POC ABG pO2 Sodium Potassium Chloride Carbon Dioxide BUN Creatinine Glucose POC Glucose 127 H 157 H 147 H Lactic Acid Calcium Total Bilirubin Direct Bilirubin AST Ammonia Lactate Dehydrogenase NT-Pro-B Natriuret Pep Total Protein Albumin Lipase Vitamin B12 Urine WBC (Auto) Urine Creatinine Ur Creatinine 24 Hour Digoxin Crossmatch 12/16/17 12/16/17 12/16/17 11:35 12:37 12:37 RBC 2.21 L Hgb 6.9 L Hct 20.2 L MCH MCHC RDW 16.2 H Plt Count 50 L Lymph % (Auto) [place] % (Auto) 9.7 H Lymph # 0.7 L [place] # Seg Neutrophils % 73.1 H Seg Neuts % (Manual) Lymphocytes % (Manual) Lymphocytes # (Manual) PT INR APTT Fibrinogen D-Dimer POC ABG pH POC ABG pCO2 POC ABG pO2 Sodium Potassium Chloride 88.2 L Carbon Dioxide BUN 52 H Creatinine 5.5 H Glucose 107 H POC Glucose 134 H Lactic Acid Calcium 7.8 L Total Bilirubin 2.60 H Direct Bilirubin AST 49 H Ammonia Lactate Dehydrogenase NT-Pro-B Natriuret Pep Total Protein Albumin 3.6 L Lipase Vitamin B12 Urine WBC (Auto) Urine Creatinine Ur Creatinine 24 Hour Digoxin Crossmatch 12/16/17 12/16/17 12/16/17 18:06 20:45 23:34 RBC Hgb Hct MCH MCHC RDW Plt Count Lymph % (Auto) [place] % (Auto) Lymph # [place] # Seg Neutrophils % Seg Neuts % (Manual) Lymphocytes % (Manual) Lymphocytes # (Manual) PT INR APTT Fibrinogen D-Dimer POC ABG pH POC ABG pCO2 POC ABG pO2 Sodium Potassium Chloride Carbon Dioxide BUN Creatinine Glucose POC Glucose 133 H 139 H Lactic Acid Calcium Total Bilirubin Direct Bilirubin AST Ammonia Lactate Dehydrogenase NT-Pro-B Natriuret Pep Total Protein Albumin Lipase Vitamin B12 Urine WBC (Auto) Urine Creatinine Ur Creatinine 24 Hour Digoxin Crossmatch See Detail 12/17/17 12/17/17 12/17/17 05:27 05:27 06:11 RBC 2.10 L Hgb 6.6 L Hct 19.2 L* MCH MCHC 35 H RDW 16.5 H Plt Count 65 L Lymph % (Auto) 12.6 L [place] % (Auto) 9.6 H Lymph # 0.7 L [place] # Seg Neutrophils % 75.8 H Seg Neuts % (Manual) Lymphocytes % (Manual) Lymphocytes # (Manual) PT INR APTT Fibrinogen D-Dimer POC ABG pH POC ABG pCO2 POC ABG pO2 Sodium 135 L Potassium 3.4 L Chloride 84.9 L Carbon Dioxide 33 H BUN 53 H Creatinine 5.9 H Glucose POC Glucose 110 H Lactic Acid Calcium 7.7 L Total Bilirubin 2.70 H Direct Bilirubin AST 50 H Ammonia Lactate Dehydrogenase NT-Pro-B Natriuret Pep Total Protein 6.2 L Albumin 3.7 L Lipase Vitamin B12 Urine WBC (Auto) Urine Creatinine Ur Creatinine 24 Hour Digoxin Crossmatch 12/17/17 12/18/17 12/18/17 09:34 00:05 05:21 RBC 3.35 L Hgb 10.3 L D Hct 30.4 L D MCH MCHC RDW 16.2 H Plt Count 57 L Lymph % (Auto) 8.0 L [place] % (Auto) 10.9 H Lymph # 0.6 L [place] # Seg Neutrophils % 80.2 H Seg Neuts % (Manual) Lymphocytes % (Manual) Lymphocytes # (Manual) PT 23.9 H INR 1.99 H APTT Fibrinogen D-Dimer POC ABG pH POC ABG pCO2 POC ABG pO2 Sodium Potassium Chloride Carbon Dioxide BUN Creatinine Glucose POC Glucose 132 H Lactic Acid Calcium Total Bilirubin Direct Bilirubin AST Ammonia Lactate Dehydrogenase NT-Pro-B Natriuret Pep Total Protein Albumin Lipase Vitamin B12 Urine WBC (Auto) Urine Creatinine Ur Creatinine 24 Hour Digoxin Crossmatch 12/18/17 12/18/17 12/18/17 05:21 06:16 11:11 RBC Hgb Hct MCH MCHC RDW Plt Count Lymph % (Auto) [place] % (Auto) Lymph # [place] # Seg Neutrophils % Seg Neuts % (Manual) Lymphocytes % (Manual) Lymphocytes # (Manual) PT 34.7 H INR 3.17 H APTT Fibrinogen D-Dimer POC ABG pH POC ABG pCO2 POC ABG pO2 Sodium Potassium 3.5 L Chloride 87.1 L Carbon Dioxide BUN 35 H Creatinine 4.3 H Glucose 110 H POC Glucose 116 H Lactic Acid Calcium 8.1 L Total Bilirubin 5.10 H Direct Bilirubin AST 56 H Ammonia Lactate Dehydrogenase NT-Pro-B Natriuret Pep Total Protein Albumin Lipase Vitamin B12 Urine WBC (Auto) Urine Creatinine Ur Creatinine 24 Hour Digoxin Crossmatch 12/18/17 12/18/17 12/18/17 13:10 17:52 22:04 RBC Hgb Hct MCH MCHC RDW Plt Count Lymph % (Auto) [place] % (Auto) Lymph # [place] # Seg Neutrophils % Seg Neuts % (Manual) Lymphocytes % (Manual) Lymphocytes # (Manual) PT 25.9 H INR 2.20 H APTT Fibrinogen D-Dimer POC ABG pH POC ABG pCO2 POC ABG pO2 Sodium Potassium Chloride Carbon Dioxide BUN Creatinine Glucose POC Glucose 114 H 108 H Lactic Acid Calcium Total Bilirubin Direct Bilirubin AST Ammonia Lactate Dehydrogenase NT-Pro-B Natriuret Pep Total Protein Albumin Lipase Vitamin B12 Urine WBC (Auto) Urine Creatinine Ur Creatinine 24 Hour Digoxin Crossmatch 12/19/17 12/19/17 12/19/17 05:55 05:55 10:20 RBC 2.85 L Hgb 9.1 L Hct 25.7 L MCH MCHC 35 H RDW 16.4 H Plt Count 61 L Lymph % (Auto) [place] % (Auto) Lymph # [place] # Seg Neutrophils % Seg Neuts % (Manual) Lymphocytes % (Manual) Lymphocytes # (Manual) PT INR APTT Fibrinogen D-Dimer POC ABG pH POC ABG pCO2 POC ABG pO2 Sodium Potassium Chloride 94.5 L Carbon Dioxide BUN 27 H Creatinine 3.6 H Glucose POC Glucose 131 H Lactic Acid Calcium 8.2 L Total Bilirubin Direct Bilirubin AST Ammonia Lactate Dehydrogenase NT-Pro-B Natriuret Pep Total Protein Albumin Lipase Vitamin B12 Urine WBC (Auto) Urine Creatinine Ur Creatinine 24 Hour Digoxin Crossmatch 12/19/17 12/21/17 12/21/17 11:46 05:26 05:26 RBC 2.60 L Hgb 8.4 L Hct 23.9 L MCH MCHC 35 H RDW 16.2 H Plt Count 57 L Lymph % (Auto) 12.4 L [place] % (Auto) 10.7 H Lymph # [place] # 1.0 H Seg Neutrophils % 74.8 H Seg Neuts % (Manual) Lymphocytes % (Manual) Lymphocytes # (Manual) PT 26.2 H INR 2.23 H APTT Fibrinogen D-Dimer POC ABG pH POC ABG pCO2 POC ABG pO2 Sodium Potassium Chloride Carbon Dioxide BUN Creatinine Glucose POC Glucose Lactic Acid Calcium Total Bilirubin Direct Bilirubin AST Ammonia Lactate Dehydrogenase NT-Pro-B Natriuret Pep Total Protein Albumin Lipase Vitamin B12 Urine WBC (Auto) Urine Creatinine Ur Creatinine 24 Hour Digoxin 0.4 L Crossmatch 12/21/17 09:40 RBC Hgb Hct MCH MCHC RDW Plt Count Lymph % (Auto) [place] % (Auto) Lymph # [place] # Seg Neutrophils % Seg Neuts % (Manual) Lymphocytes % (Manual) Lymphocytes # (Manual) PT 26.4 H INR 2.26 H APTT Fibrinogen D-Dimer POC ABG pH POC ABG pCO2 POC ABG pO2 Sodium Potassium Chloride Carbon Dioxide BUN Creatinine Glucose POC Glucose Lactic Acid Calcium Total Bilirubin Direct Bilirubin AST Ammonia Lactate Dehydrogenase NT-Pro-B Natriuret Pep Total Protein Albumin Lipase Vitamin B12 Urine WBC (Auto) Urine Creatinine Ur Creatinine 24 Hour Digoxin Crossmatch Allied health notes reviewed: RT
--- NOTE | 2017-12-21 17:03 | Progress Note ---
Assessment and Plan - Patient Problems (1) Acute hepatic encephalopathy Current Visit: Yes Status: Acute Plan to address problem: see orders. continue with lactulose, recheck ammonia level. continue same. (2) Anemia Current Visit: Yes Status: Acute Plan to address problem: see orders. Replacement transfusion, if hgb less than 7.0 same as above. see notes above. same as above, stable. (3) Renal failure Current Visit: Yes Status: Acute Plan to address problem: follow renal service. (4) Liver failure Current Visit: Yes Status: Acute Plan to address problem: Hepato-renal syndrome, continue with HD. Subjective Date of service: 12/21/17 Principal diagnosis: CARMEN on CKD; Acute Encephalopathy; Sepsis Syndrome; Anemia Interval history: Patient seen, restingm labs/notes reviewed. agree with management so far.labs showing consumptive coagulopathy. Patient seen, resting in bed, records/labs reviewed.PLT dropped some.Still no active bleeding. Patient seen/examined, records/labs / notes reviewed, hgb low at 6.9, will rec replacement transfusion,with HD tomorrow if planned to proceed with HD. Patient seen, resting in bed, labs/records reviewed, Hgb still low, transfusion written for today. Patient seen, resting in bed, labs reviewed, plt 57,000, rectal bleeding resolved, will continue to monitor patient/labs with you, and intervene with replacement transfusion, when needed. Patient seen, resting in bed, NAD, records reviewed. Patient seen, resting in bed, labs/records reviewed, no new issues, the latest plt fair, no any sign of bleeding. Patient seen, resting in bed, records reviewed, PLT 57,000, no bleeding. Objective - Constitutional Vitals: Vital Signs - 12hr 12/21/17 12/21/17 12/21/17 07:27 09:02 09:06 Temperature 97.9 F Pulse Rate 63 63 63 Pulse Rate [ Apical] Respiratory 18 Rate Blood Pressure 109/59 109/59 109/59 Blood Pressure [Left] O2 Sat by Pulse 96 Oximetry 12/21/17 12/21/17 12/21/17 09:27 10:00 12:24 Temperature 97.9 F Pulse Rate 63 59 L Pulse Rate [ 61 Apical] Respiratory 18 Rate Blood Pressure Blood Pressure 96/48 [Left] O2 Sat by Pulse 100 Oximetry 12/21/17 16:37 Temperature 97.9 F Pulse Rate 64 Pulse Rate [ Apical] Respiratory 18 Rate Blood Pressure 115/67 Blood Pressure [Left] O2 Sat by Pulse 97 Oximetry - EENT Eyes: PERRL, EOM intact ENT: hearing intact, clear oral mucosa Ears: bilateral: normal - Neck Neck: supple, normal ROM - Respiratory Respiratory effort: normal Respiratory: bilateral: CTA - Breasts Breasts: deferred - Cardiovascular Rhythm: regular Heart Sounds: Present: S1 & S2. Absent: gallop, rub Extremities: pulses intact, No edema, normal color, Full ROM - Gastrointestinal General gastrointestinal: Present: soft, non-tender, non-distended, normal bowel sounds - Genitourinary Male genitourinary: deferred - Integumentary Integumentary: clear, warm, dry - Musculoskeletal Musculoskeletal: 1, strength equal bilaterally - Neurologic Neurologic: moves all extremities - Psychiatric Psychiatric: memory intact, appropriate mood/affect, intact judgment & insight - Labs CBC & Chem 7: 12/21/17 05:26 12/19/17 05:55 Labs: Abnormal lab results 12/21/17 12/21/17 12/21/17 Range/Units 05:26 05:26 09:40 RBC 2.60 L (3.65-5.03) M/mm3 Hgb 8.4 L (11.8-15.2) gm/dl Hct 23.9 L (35.5-45.6) % MCHC 35 H (32-34) % RDW 16.2 H (13.2-15.2) % Plt Count 57 L (140-440) K/mm3 Lymph % (Auto) 12.4 L (13.4-35.0) % Owen % (Auto) 10.7 H (0.0-7.3) % Owen # 1.0 H (0.0-0.8) K/mm3 Seg Neutrophils % 74.8 H (40.0-70.0) % PT 26.4 H (12.2-14.9) Sec. INR 2.26 H (0.87-1.13) Digoxin 0.4 L (0.9-2.0) ng/mL
[2017-12-22] MEDS: PROAMATINE PO SCH ×3 (09:36→22:32)
[2017-12-22] MEDS: CEPHULAC PO SCH ×2 (09:36→22:32)
[2017-12-22] MEDS: PROTONIX FEEDTUBE SCH (09:36)
[2017-12-22] MEDS: LOPRESSOR PO SCH ×2 (09:37→22:32)
[2017-12-22] MEDS: LANOXIN IV SCH (09:37)
[2017-12-22] MEDS: XIFAXAN PO SCH ×2 (09:37→22:32)
--- NOTE | 2017-12-22 10:29 | Progress Note ---
Assessment and Plan Anemia s/p transfusion of PRBCs Thromocytopenia, chronic Chronic renal failure initiated on dialysis Hypotension -on midodrine therapy Hx of Cirrhosis with bleeding esophageal varices requiring TIPS 11/2016 Paroxysmal Atrial flutter seen on telemetry normal TSH on beta blockers for suppression Left pleural effusion Echocardiogram shows mild cardiomyopathy with left ventricular ejection fraction 45-50%. There is mild to moderate tricuspid regurgitation, pulmonary artery pressure is 31, and there is a left pleural effusion. Plan: Patient is considered not a candidate for anticoagulation given underlying liver cirrhosis. Continue beta alejo therapy for suppression of paroxysmal atrial fibrillation. Subjective Date of service: 12/22/17 Principal diagnosis: CARMEN on CKD; Acute Encephalopathy; Sepsis Syndrome; Anemia Interval history: No events overnight Objective Vital Signs Temp Pulse Resp BP BP Pulse Ox 12/22/17 05:25 98.2 F 59 L 20 117/53 98 12/22/17 00:49 98.3 F 73 18 105/53 95 12/21/17 22:00 78 12/21/17 21:39 98.6 F 20 12/21/17 19:47 62 118/55 100 12/21/17 16:37 97.9 F 64 18 115/67 97 12/21/17 12:24 97.9 F 59 L 18 96/48 100 - Physical Examination Narrative exam: Physical examination Vitals reviewed GEN: No acute distress noted somnolent but arousable HEENT: Carotids 2+ NECK: Supple CVS: S1 and S2 heard no significant murmur or gallop noted LUNGS/CHEST: Normal auscultation ABD: Soft nontender Extremities: No edema noted normal color NEURO: Alert moves all all 4 extremities PSY: Stable General: No Apparent Distress HEENT: Positive: PERRL - Labs and Meds Coagulation 12/21/17 Range/Units 09:40 PT 26.4 H (12.2-14.9) Sec. INR 2.26 H (0.87-1.13) - Allied health notes Allied health notes reviewed: RT
--- NOTE | 2017-12-22 10:39 | Progress Note ---
Assessment and Plan Patient sleeping at this time. No acute respiratory distress.O2 saturation 98% on 2 litres O2.Patients Ultrasound showed bilateral pleural effusions.Patients platelets are low, INR is high. Holding thoracentesis for time being, since patient is not in respiratory distress. - Patient Problems (1) Bilateral pleural effusion Current Visit: No Status: Acute Plan to address problem: Ultrasound of chest showed bilateral pleural effusion. Patients platelets are low, INR is high. Holding thoracentesis for time being, since patient is not in respiratory distress. (2) Hypovolemic shock Current Visit: Yes Status: Acute Plan to address problem: Improved .Blood pressure 117/53 (3) CARMEN (acute kidney injury) Current Visit: Yes Status: Acute Plan to address problem: Management as per nephrology. (4) Acute hepatic encephalopathy Current Visit: Yes Status: Acute Plan to address problem: Management as per primary care. (5) Alcoholic cirrhosis of liver with ascites Current Visit: Yes Status: Acute Plan to address problem: Management as per primary care. (6) Anemia Current Visit: Yes Status: Acute Plan to address problem: Management as per primary care. Subjective Date of service: 12/22/17 Principal diagnosis: CARMEN on CKD; Acute Encephalopathy; Sepsis Syndrome; Anemia Interval history: Patient sleeping at this time. No acute respiratory distress.O2 saturation 98% on 2 litres O2.Patients ultrasound showed bilateral pleural effusions.Patients platelets are low, INR is high. Holding thoracentesis for time being, since patient is not in respiratory distress. Objective Vital Signs - 12hr 12/22/17 12/22/17 00:49 05:25 Temperature 98.3 F 98.2 F Pulse Rate 73 59 L Respiratory 18 20 Rate Blood Pressure 105/53 117/53 [Left] O2 Sat by Pulse 95 98 Oximetry Constitutional: no acute distress, asleep, other (chronically ill looking elderly AAM, normocephalic and atraumatic) Eyes: non-icteric ENT: oropharynx moist, other (mallampati 2) Neck: supple, no lymphadenopathy, no JVD, other (no thyromegaly) Effort: mildly labored Ascultation: Bilateral: diminished breath sounds (bases), rhonchi (scant) Percussion: Bilateral: not dull, dull (bases) Cardiovascular: regular rate and rhythm, other (S1,S2, no murmurms, gallops or rubs) Gastrointestinal: normoactive bowel sounds, soft, non-tender, other (distended) Integumentary: rash Extremities: no cyanosis, no edema, pulses normal, no ischemia or petechiae, cool Neurologic: non-focal exam, pupils equal and round, motor strength normal and ( weak), other (somnolent) Psychiatric: other (somnolent; flat affect) CBC and BMP: 12/21/17 05:26 12/19/17 05:55 ABG, PT/INR, D-dimer: ABG POC ABG pH 7.452 (7.35-7.45) H 12/12/17 09:13 POC ABG pCO2 22.2 (35-45) L 12/12/17 09:13 POC ABG pO2 75 (80-105) L 12/12/17 09:13 POC ABG HCO3 15.5 12/12/17 09:13 POC ABG Total CO2 16 12/12/17 09:13 POC ABG O2 Sat 96 12/12/17 09:13 PT/INR, D-dimer PT 26.4 Sec. (12.2-14.9) H 12/21/17 09:40 INR 2.26 (0.87-1.13) H 12/21/17 09:40 D-Dimer 1215.06 ng/mlDDU (0-234) H 12/12/17 19:50 Abnormal lab findings: Abnormal Labs 12/10/17 12/10/17 12/10/17 13:14 13:14 23:05 RBC 2.31 L Hgb 7.3 L Hct 21.5 L MCH MCHC RDW 17.7 H Plt Count 61 L Lymph % (Auto) [place] % (Auto) Lymph # [place] # Seg Neutrophils % Seg Neuts % (Manual) 81.0 H Lymphocytes % (Manual) 11.0 L Lymphocytes # (Manual) 0.6 L PT INR APTT Fibrinogen D-Dimer POC ABG pH POC ABG pCO2 POC ABG pO2 Sodium 136 L Potassium 5.2 H Chloride Carbon Dioxide 15 L BUN 47 H Creatinine 5.2 H Glucose 127 H POC Glucose Lactic Acid Calcium Total Bilirubin 3.50 H Direct Bilirubin AST 71 H Ammonia Lactate Dehydrogenase NT-Pro-B Natriuret Pep Total Protein Albumin 2.6 L Lipase Vitamin B12 Urine WBC (Auto) 10.0 H Urine Creatinine Ur Creatinine 24 Hour Digoxin Crossmatch 12/10/17 12/10/17 12/10/17 23:14 23:14 23:14 RBC Hgb Hct MCH MCHC RDW Plt Count Lymph % (Auto) [place] % (Auto) Lymph # [place] # Seg Neutrophils % Seg Neuts % (Manual) Lymphocytes % (Manual) Lymphocytes # (Manual) PT INR APTT Fibrinogen D-Dimer POC ABG pH POC ABG pCO2 POC ABG pO2 Sodium Potassium Chloride Carbon Dioxide BUN Creatinine Glucose POC Glucose Lactic Acid 2.40 H* Calcium Total Bilirubin Direct Bilirubin AST Ammonia 134.0 H Lactate Dehydrogenase NT-Pro-B Natriuret Pep 9558 H Total Protein Albumin Lipase Vitamin B12 Urine WBC (Auto) Urine Creatinine Ur Creatinine 24 Hour Digoxin Crossmatch 12/10/17 12/11/17 12/11/17 23:14 00:29 03:33 RBC Hgb Hct MCH MCHC RDW Plt Count Lymph % (Auto) [place] % (Auto) Lymph # [place] # Seg Neutrophils % Seg Neuts % (Manual) Lymphocytes % (Manual) Lymphocytes # (Manual) PT INR APTT Fibrinogen D-Dimer POC ABG pH POC ABG pCO2 POC ABG pO2 Sodium Potassium Chloride Carbon Dioxide BUN Creatinine Glucose POC Glucose Lactic Acid 2.80 H* 3.00 H* Calcium Total Bilirubin Direct Bilirubin AST Ammonia Lactate Dehydrogenase NT-Pro-B Natriuret Pep Total Protein Albumin Lipase 7 L Vitamin B12 Urine WBC (Auto) Urine Creatinine Ur Creatinine 24 Hour Digoxin Crossmatch 12/11/17 12/11/17 12/11/17 04:08 04:34 04:34 RBC Hgb Hct MCH MCHC RDW Plt Count Lymph % (Auto) [place] % (Auto) Lymph # [place] # Seg Neutrophils % Seg Neuts % (Manual) Lymphocytes % (Manual) Lymphocytes # (Manual) PT 19.1 H INR 1.51 H APTT 45.7 H Fibrinogen D-Dimer POC ABG pH POC ABG pCO2 POC ABG pO2 Sodium Potassium Chloride Carbon Dioxide BUN Creatinine Glucose POC Glucose 113 H Lactic Acid 3.10 H* Calcium Total Bilirubin Direct Bilirubin AST Ammonia Lactate Dehydrogenase NT-Pro-B Natriuret Pep Total Protein Albumin Lipase Vitamin B12 Urine WBC (Auto) Urine Creatinine Ur Creatinine 24 Hour Digoxin Crossmatch 12/11/17 12/11/17 12/11/17 06:46 07:26 09:42 RBC Hgb Hct MCH MCHC RDW Plt Count Lymph % (Auto) [place] % (Auto) Lymph # [place] # Seg Neutrophils % Seg Neuts % (Manual) Lymphocytes % (Manual) Lymphocytes # (Manual) PT INR APTT Fibrinogen D-Dimer POC ABG pH POC ABG pCO2 POC ABG pO2 Sodium Potassium Chloride Carbon Dioxide BUN Creatinine Glucose POC Glucose Lactic Acid 2.70 H* 2.80 H* 2.90 H* Calcium Total Bilirubin Direct Bilirubin AST Ammonia Lactate Dehydrogenase NT-Pro-B Natriuret Pep Total Protein Albumin Lipase Vitamin B12 Urine WBC (Auto) Urine Creatinine Ur Creatinine 24 Hour Digoxin Crossmatch 12/11/17 12/11/17 12/11/17 13:12 14:06 23:14 RBC Hgb Hct MCH MCHC RDW Plt Count Lymph % (Auto) [place] % (Auto) Lymph # [place] # Seg Neutrophils % Seg Neuts % (Manual) Lymphocytes % (Manual) Lymphocytes # (Manual) PT INR APTT Fibrinogen D-Dimer POC ABG pH POC ABG pCO2 POC ABG pO2 Sodium Potassium Chloride Carbon Dioxide BUN Creatinine Glucose POC Glucose Lactic Acid 3.10 H* 3.10 H* 3.70 H* Calcium Total Bilirubin Direct Bilirubin AST Ammonia Lactate Dehydrogenase NT-Pro-B Natriuret Pep Total Protein Albumin Lipase Vitamin B12 Urine WBC (Auto) Urine Creatinine Ur Creatinine 24 Hour Digoxin Crossmatch 12/11/17 12/12/17 12/12/17 23:23 03:41 03:41 RBC 2.17 L Hgb 7.0 L Hct 19.9 L* MCH 33 H MCHC 35 H RDW 17.7 H Plt Count 62 L Lymph % (Auto) [place] % (Auto) Lymph # [place] # Seg Neutrophils % Seg Neuts % (Manual) 91.0 H Lymphocytes % (Manual) 3.0 L Lymphocytes # (Manual) 0.2 L PT INR APTT Fibrinogen D-Dimer POC ABG pH POC ABG pCO2 POC ABG pO2 Sodium Potassium 5.4 H Chloride Carbon Dioxide 12 L BUN 47 H Creatinine 4.5 H Glucose 103 H POC Glucose Lactic Acid Calcium 8.0 L Total Bilirubin 3.60 H Direct Bilirubin AST 58 H Ammonia Lactate Dehydrogenase NT-Pro-B Natriuret Pep Total Protein 5.9 L Albumin 2.5 L Lipase Vitamin B12 Urine WBC (Auto) Urine Creatinine Ur Creatinine 24 Hour Digoxin Crossmatch See Detail 12/12/17 12/12/17 12/12/17 07:00 09:13 17:55 RBC 2.06 L Hgb 6.6 L Hct 18.6 L* MCH MCHC 36 H RDW 17.8 H Plt Count 77 L Lymph % (Auto) [place] % (Auto) Lymph # [place] # Seg Neutrophils % Seg Neuts % (Manual) Lymphocytes % (Manual) Lymphocytes # (Manual) PT INR APTT Fibrinogen D-Dimer POC ABG pH 7.452 H POC ABG pCO2 22.2 L POC ABG pO2 75 L Sodium Potassium Chloride Carbon Dioxide BUN Creatinine Glucose POC Glucose 119 H Lactic Acid Calcium Total Bilirubin Direct Bilirubin AST Ammonia Lactate Dehydrogenase NT-Pro-B Natriuret Pep Total Protein Albumin Lipase Vitamin B12 Urine WBC (Auto) Urine Creatinine Ur Creatinine 24 Hour Digoxin Crossmatch 12/12/17 12/12/17 12/12/17 19:50 19:50 19:50 RBC 2.40 L Hgb 7.8 L Hct 21.3 L MCH 33 H MCHC 37 H RDW 16.1 H Plt Count 99 L Lymph % (Auto) [place] % (Auto) Lymph # [place] # Seg Neutrophils % Seg Neuts % (Manual) 87.0 H Lymphocytes % (Manual) 5.0 L Lymphocytes # (Manual) 0.3 L PT 21.9 H INR 1.79 H APTT 41.5 H Fibrinogen 128 L D-Dimer 1215.06 H POC ABG pH POC ABG pCO2 POC ABG pO2 Sodium Potassium Chloride Carbon Dioxide BUN Creatinine Glucose POC Glucose Lactic Acid Calcium Total Bilirubin 4.10 H Direct Bilirubin 1.6 H AST Ammonia Lactate Dehydrogenase NT-Pro-B Natriuret Pep Total Protein Albumin Lipase Vitamin B12 Urine WBC (Auto) Urine Creatinine Ur Creatinine 24 Hour Digoxin Crossmatch 12/12/17 12/12/17 12/12/17 19:50 19:50 23:46 RBC Hgb Hct MCH MCHC RDW Plt Count Lymph % (Auto) [place] % (Auto) Lymph # [place] # Seg Neutrophils % Seg Neuts % (Manual) Lymphocytes % (Manual) Lymphocytes # (Manual) PT INR APTT Fibrinogen D-Dimer POC ABG pH POC ABG pCO2 POC ABG pO2 Sodium Potassium Chloride Carbon Dioxide BUN Creatinine Glucose POC Glucose 110 H Lactic Acid Calcium Total Bilirubin Direct Bilirubin AST Ammonia Lactate Dehydrogenase 213 H NT-Pro-B Natriuret Pep Total Protein Albumin Lipase Vitamin B12 1465 H Urine WBC (Auto) Urine Creatinine Ur Creatinine 24 Hour Digoxin Crossmatch 12/13/17 12/13/17 12/13/17 04:00 04:00 05:12 RBC 2.32 L Hgb 7.4 L Hct 20.8 L MCH MCHC 36 H RDW 16.1 H Plt Count 134 L Lymph % (Auto) 13.1 L [place] % (Auto) 7.9 H Lymph # 0.8 L [place] # Seg Neutrophils % 76.3 H Seg Neuts % (Manual) Lymphocytes % (Manual) Lymphocytes # (Manual) PT INR APTT Fibrinogen D-Dimer POC ABG pH POC ABG pCO2 POC ABG pO2 Sodium Potassium Chloride Carbon Dioxide 21 L D BUN 48 H Creatinine 4.6 H Glucose 104 H POC Glucose 134 H Lactic Acid Calcium 8.1 L Total Bilirubin 4.70 H Direct Bilirubin AST 43 H Ammonia Lactate Dehydrogenase NT-Pro-B Natriuret Pep Total Protein 5.8 L Albumin 3.1 L Lipase Vitamin B12 Urine WBC (Auto) Urine Creatinine Ur Creatinine 24 Hour Digoxin Crossmatch 12/13/17 12/13/17 12/13/17 08:45 12:25 14:03 RBC Hgb Hct MCH MCHC RDW Plt Count Lymph % (Auto) [place] % (Auto) Lymph # [place] # Seg Neutrophils % Seg Neuts % (Manual) Lymphocytes % (Manual) Lymphocytes # (Manual) PT 20.5 H INR 1.65 H APTT Fibrinogen D-Dimer POC ABG pH POC ABG pCO2 POC ABG pO2 Sodium Potassium Chloride Carbon Dioxide BUN Creatinine Glucose POC Glucose 112 H Lactic Acid 3.70 H* Calcium Total Bilirubin Direct Bilirubin AST Ammonia Lactate Dehydrogenase NT-Pro-B Natriuret Pep Total Protein Albumin Lipase Vitamin B12 Urine WBC (Auto) Urine Creatinine Ur Creatinine 24 Hour Digoxin Crossmatch 12/13/17 12/13/17 12/13/17 14:03 18:52 21:09 RBC Hgb Hct MCH MCHC RDW Plt Count Lymph % (Auto) [place] % (Auto) Lymph # [place] # Seg Neutrophils % Seg Neuts % (Manual) Lymphocytes % (Manual) Lymphocytes # (Manual) PT INR APTT Fibrinogen D-Dimer POC ABG pH POC ABG pCO2 POC ABG pO2 Sodium Potassium Chloride Carbon Dioxide BUN Creatinine Glucose POC Glucose 110 H Lactic Acid 4.00 H* Calcium Total Bilirubin Direct Bilirubin AST Ammonia 87.0 H Lactate Dehydrogenase NT-Pro-B Natriuret Pep Total Protein Albumin Lipase Vitamin B12 Urine WBC (Auto) Urine Creatinine Ur Creatinine 24 Hour Digoxin Crossmatch 12/14/17 12/14/17 12/14/17 00:25 03:30 03:30 RBC 2.29 L Hgb 7.3 L Hct 20.7 L MCH MCHC 35 H RDW 16.2 H Plt Count 84 L Lymph % (Auto) 12.8 L [place] % (Auto) 8.3 H Lymph # 0.6 L [place] # Seg Neutrophils % 77.2 H Seg Neuts % (Manual) Lymphocytes % (Manual) Lymphocytes # (Manual) PT INR APTT Fibrinogen D-Dimer POC ABG pH POC ABG pCO2 POC ABG pO2 Sodium Potassium Chloride 96.1 L Carbon Dioxide BUN 48 H Creatinine 4.6 H Glucose 125 H POC Glucose 131 H Lactic Acid Calcium 7.9 L Total Bilirubin 4.70 H Direct Bilirubin AST 45 H Ammonia Lactate Dehydrogenase NT-Pro-B Natriuret Pep Total Protein 6.1 L Albumin 3.4 L Lipase Vitamin B12 Urine WBC (Auto) Urine Creatinine Ur Creatinine 24 Hour Digoxin Crossmatch 12/14/17 12/14/17 12/14/17 05:31 12:26 12:55 RBC Hgb Hct MCH MCHC RDW Plt Count Lymph % (Auto) [place] % (Auto) Lymph # [place] # Seg Neutrophils % Seg Neuts % (Manual) Lymphocytes % (Manual) Lymphocytes # (Manual) PT INR APTT Fibrinogen D-Dimer POC ABG pH POC ABG pCO2 POC ABG pO2 Sodium Potassium Chloride Carbon Dioxide BUN Creatinine Glucose POC Glucose 125 H 117 H Lactic Acid 3.40 H* Calcium Total Bilirubin Direct Bilirubin AST Ammonia Lactate Dehydrogenase NT-Pro-B Natriuret Pep Total Protein Albumin Lipase Vitamin B12 Urine WBC (Auto) Urine Creatinine Ur Creatinine 24 Hour Digoxin Crossmatch 12/14/17 12/14/17 12/14/17 15:26 17:26 18:07 RBC Hgb Hct MCH MCHC RDW Plt Count Lymph % (Auto) [place] % (Auto) Lymph # [place] # Seg Neutrophils % Seg Neuts % (Manual) Lymphocytes % (Manual) Lymphocytes # (Manual) PT INR APTT Fibrinogen D-Dimer POC ABG pH POC ABG pCO2 POC ABG pO2 Sodium Potassium Chloride Carbon Dioxide BUN Creatinine Glucose POC Glucose 143 H Lactic Acid 4.00 H* 3.90 H* Calcium Total Bilirubin Direct Bilirubin AST Ammonia Lactate Dehydrogenase NT-Pro-B Natriuret Pep Total Protein Albumin Lipase Vitamin B12 Urine WBC (Auto) Urine Creatinine Ur Creatinine 24 Hour Digoxin Crossmatch 12/14/17 12/15/17 12/15/17 Unknown 00:08 04:51 RBC 2.27 L Hgb 7.3 L Hct 20.7 L MCH MCHC 35 H RDW 16.1 H Plt Count 92 L Lymph % (Auto) 12.5 L [place] % (Auto) 10.4 H Lymph # 0.6 L [place] # Seg Neutrophils % 74.7 H Seg Neuts % (Manual) Lymphocytes % (Manual) Lymphocytes # (Manual) PT INR APTT Fibrinogen D-Dimer POC ABG pH POC ABG pCO2 POC ABG pO2 Sodium Potassium Chloride Carbon Dioxide BUN Creatinine Glucose POC Glucose 124 H Lactic Acid Calcium Total Bilirubin Direct Bilirubin AST Ammonia Lactate Dehydrogenase NT-Pro-B Natriuret Pep Total Protein Albumin Lipase Vitamin B12 Urine WBC (Auto) Urine Creatinine 122.5 H Ur Creatinine 24 Hour 0.3 L Digoxin Crossmatch 12/15/17 12/15/17 12/15/17 04:51 04:51 05:56 RBC Hgb Hct MCH MCHC RDW Plt Count Lymph % (Auto) [place] % (Auto) Lymph # [place] # Seg Neutrophils % Seg Neuts % (Manual) Lymphocytes % (Manual) Lymphocytes # (Manual) PT INR APTT Fibrinogen D-Dimer POC ABG pH POC ABG pCO2 POC ABG pO2 Sodium Potassium 3.5 L Chloride 92.6 L Carbon Dioxide BUN 50 H Creatinine 4.8 H Glucose 141 H POC Glucose 143 H Lactic Acid Calcium 7.9 L Total Bilirubin 3.60 H Direct Bilirubin AST 44 H Ammonia 24.0 L Lactate Dehydrogenase NT-Pro-B Natriuret Pep Total Protein 6.1 L Albumin 3.8 L Lipase Vitamin B12 Urine WBC (Auto) Urine Creatinine Ur Creatinine 24 Hour Digoxin Crossmatch 12/15/17 12/15/17 12/16/17 12:17 23:10 07:04 RBC Hgb Hct MCH MCHC RDW Plt Count Lymph % (Auto) [place] % (Auto) Lymph # [place] # Seg Neutrophils % Seg Neuts % (Manual) Lymphocytes % (Manual) Lymphocytes # (Manual) PT INR APTT Fibrinogen D-Dimer POC ABG pH POC ABG pCO2 POC ABG pO2 Sodium Potassium Chloride Carbon Dioxide BUN Creatinine Glucose POC Glucose 127 H 157 H 147 H Lactic Acid Calcium Total Bilirubin Direct Bilirubin AST Ammonia Lactate Dehydrogenase NT-Pro-B Natriuret Pep Total Protein Albumin Lipase Vitamin B12 Urine WBC (Auto) Urine Creatinine Ur Creatinine 24 Hour Digoxin Crossmatch 12/16/17 12/16/17 12/16/17 11:35 12:37 12:37 RBC 2.21 L Hgb 6.9 L Hct 20.2 L MCH MCHC RDW 16.2 H Plt Count 50 L Lymph % (Auto) [place] % (Auto) 9.7 H Lymph # 0.7 L [place] # Seg Neutrophils % 73.1 H Seg Neuts % (Manual) Lymphocytes % (Manual) Lymphocytes # (Manual) PT INR APTT Fibrinogen D-Dimer POC ABG pH POC ABG pCO2 POC ABG pO2 Sodium Potassium Chloride 88.2 L Carbon Dioxide BUN 52 H Creatinine 5.5 H Glucose 107 H POC Glucose 134 H Lactic Acid Calcium 7.8 L Total Bilirubin 2.60 H Direct Bilirubin AST 49 H Ammonia Lactate Dehydrogenase NT-Pro-B Natriuret Pep Total Protein Albumin 3.6 L Lipase Vitamin B12 Urine WBC (Auto) Urine Creatinine Ur Creatinine 24 Hour Digoxin Crossmatch 12/16/17 12/16/17 12/16/17 18:06 20:45 23:34 RBC Hgb Hct MCH MCHC RDW Plt Count Lymph % (Auto) [place] % (Auto) Lymph # [place] # Seg Neutrophils % Seg Neuts % (Manual) Lymphocytes % (Manual) Lymphocytes # (Manual) PT INR APTT Fibrinogen D-Dimer POC ABG pH POC ABG pCO2 POC ABG pO2 Sodium Potassium Chloride Carbon Dioxide BUN Creatinine Glucose POC Glucose 133 H 139 H Lactic Acid Calcium Total Bilirubin Direct Bilirubin AST Ammonia Lactate Dehydrogenase NT-Pro-B Natriuret Pep Total Protein Albumin Lipase Vitamin B12 Urine WBC (Auto) Urine Creatinine Ur Creatinine 24 Hour Digoxin Crossmatch See Detail 12/17/17 12/17/17 12/17/17 05:27 05:27 06:11 RBC 2.10 L Hgb 6.6 L Hct 19.2 L* MCH MCHC 35 H RDW 16.5 H Plt Count 65 L Lymph % (Auto) 12.6 L [place] % (Auto) 9.6 H Lymph # 0.7 L [place] # Seg Neutrophils % 75.8 H Seg Neuts % (Manual) Lymphocytes % (Manual) Lymphocytes # (Manual) PT INR APTT Fibrinogen D-Dimer POC ABG pH POC ABG pCO2 POC ABG pO2 Sodium 135 L Potassium 3.4 L Chloride 84.9 L Carbon Dioxide 33 H BUN 53 H Creatinine 5.9 H Glucose POC Glucose 110 H Lactic Acid Calcium 7.7 L Total Bilirubin 2.70 H Direct Bilirubin AST 50 H Ammonia Lactate Dehydrogenase NT-Pro-B Natriuret Pep Total Protein 6.2 L Albumin 3.7 L Lipase Vitamin B12 Urine WBC (Auto) Urine Creatinine Ur Creatinine 24 Hour Digoxin Crossmatch 12/17/17 12/18/17 12/18/17 09:34 00:05 05:21 RBC 3.35 L Hgb 10.3 L D Hct 30.4 L D MCH MCHC RDW 16.2 H Plt Count 57 L Lymph % (Auto) 8.0 L [place] % (Auto) 10.9 H Lymph # 0.6 L [place] # Seg Neutrophils % 80.2 H Seg Neuts % (Manual) Lymphocytes % (Manual) Lymphocytes # (Manual) PT 23.9 H INR 1.99 H APTT Fibrinogen D-Dimer POC ABG pH POC ABG pCO2 POC ABG pO2 Sodium Potassium Chloride Carbon Dioxide BUN Creatinine Glucose POC Glucose 132 H Lactic Acid Calcium Total Bilirubin Direct Bilirubin AST Ammonia Lactate Dehydrogenase NT-Pro-B Natriuret Pep Total Protein Albumin Lipase Vitamin B12 Urine WBC (Auto) Urine Creatinine Ur Creatinine 24 Hour Digoxin Crossmatch 12/18/17 12/18/17 12/18/17 05:21 06:16 11:11 RBC Hgb Hct MCH MCHC RDW Plt Count Lymph % (Auto) [place] % (Auto) Lymph # [place] # Seg Neutrophils % Seg Neuts % (Manual) Lymphocytes % (Manual) Lymphocytes # (Manual) PT 34.7 H INR 3.17 H APTT Fibrinogen D-Dimer POC ABG pH POC ABG pCO2 POC ABG pO2 Sodium Potassium 3.5 L Chloride 87.1 L Carbon Dioxide BUN 35 H Creatinine 4.3 H Glucose 110 H POC Glucose 116 H Lactic Acid Calcium 8.1 L Total Bilirubin 5.10 H Direct Bilirubin AST 56 H Ammonia Lactate Dehydrogenase NT-Pro-B Natriuret Pep Total Protein Albumin Lipase Vitamin B12 Urine WBC (Auto) Urine Creatinine Ur Creatinine 24 Hour Digoxin Crossmatch 12/18/17 12/18/17 12/18/17 13:10 17:52 22:04 RBC Hgb Hct MCH MCHC RDW Plt Count Lymph % (Auto) [place] % (Auto) Lymph # [place] # Seg Neutrophils % Seg Neuts % (Manual) Lymphocytes % (Manual) Lymphocytes # (Manual) PT 25.9 H INR 2.20 H APTT Fibrinogen D-Dimer POC ABG pH POC ABG pCO2 POC ABG pO2 Sodium Potassium Chloride Carbon Dioxide BUN Creatinine Glucose POC Glucose 114 H 108 H Lactic Acid Calcium Total Bilirubin Direct Bilirubin AST Ammonia Lactate Dehydrogenase NT-Pro-B Natriuret Pep Total Protein Albumin Lipase Vitamin B12 Urine WBC (Auto) Urine Creatinine Ur Creatinine 24 Hour Digoxin Crossmatch 12/19/17 12/19/17 12/19/17 05:55 05:55 10:20 RBC 2.85 L Hgb 9.1 L Hct 25.7 L MCH MCHC 35 H RDW 16.4 H Plt Count 61 L Lymph % (Auto) [place] % (Auto) Lymph # [place] # Seg Neutrophils % Seg Neuts % (Manual) Lymphocytes % (Manual) Lymphocytes # (Manual) PT INR APTT Fibrinogen D-Dimer POC ABG pH POC ABG pCO2 POC ABG pO2 Sodium Potassium Chloride 94.5 L Carbon Dioxide BUN 27 H Creatinine 3.6 H Glucose POC Glucose 131 H Lactic Acid Calcium 8.2 L Total Bilirubin Direct Bilirubin AST Ammonia Lactate Dehydrogenase NT-Pro-B Natriuret Pep Total Protein Albumin Lipase Vitamin B12 Urine WBC (Auto) Urine Creatinine Ur Creatinine 24 Hour Digoxin Crossmatch 12/19/17 12/21/17 12/21/17 11:46 05:26 05:26 RBC 2.60 L Hgb 8.4 L Hct 23.9 L MCH MCHC 35 H RDW 16.2 H Plt Count 57 L Lymph % (Auto) 12.4 L [place] % (Auto) 10.7 H Lymph # [place] # 1.0 H Seg Neutrophils % 74.8 H Seg Neuts % (Manual) Lymphocytes % (Manual) Lymphocytes # (Manual) PT 26.2 H INR 2.23 H APTT Fibrinogen D-Dimer POC ABG pH POC ABG pCO2 POC ABG pO2 Sodium Potassium Chloride Carbon Dioxide BUN Creatinine Glucose POC Glucose Lactic Acid Calcium Total Bilirubin Direct Bilirubin AST Ammonia Lactate Dehydrogenase NT-Pro-B Natriuret Pep Total Protein Albumin Lipase Vitamin B12 Urine WBC (Auto) Urine Creatinine Ur Creatinine 24 Hour Digoxin 0.4 L Crossmatch 12/21/17 09:40 RBC Hgb Hct MCH MCHC RDW Plt Count Lymph % (Auto) [place] % (Auto) Lymph # [place] # Seg Neutrophils % Seg Neuts % (Manual) Lymphocytes % (Manual) Lymphocytes # (Manual) PT 26.4 H INR 2.26 H APTT Fibrinogen D-Dimer POC ABG pH POC ABG pCO2 POC ABG pO2 Sodium Potassium Chloride Carbon Dioxide BUN Creatinine Glucose POC Glucose Lactic Acid Calcium Total Bilirubin Direct Bilirubin AST Ammonia Lactate Dehydrogenase NT-Pro-B Natriuret Pep Total Protein Albumin Lipase Vitamin B12 Urine WBC (Auto) Urine Creatinine Ur Creatinine 24 Hour Digoxin Crossmatch Allied health notes reviewed: RT
--- NOTE | 2017-12-22 11:04 | Progress Note ---
Assessment and Plan Impression: * Oliguric CARMEN secondary to ATN vs HRS --s/p permcath placement 12/17/17 and initiation of dialysis * Sepsis * Severe anemia secondary to ABL * Rectal bleeding * Cirrhosis w/ esophageal varices * Hyperbilirubinemia * Pyuria * Metabolic acidosis, resolved * Hyperkalemia, resolved Plan: * Patient remains oliguric w/o evidence of recovery. Continue dialysis on TTS schudule for now; change to MWF next week * Empiric abx for SBP and UTI * Transfusion pRBC per primary team * Consultants' recommendations reviewed * Medical management of electrolytes * Avoid potential nephrotoxic agents * Dose medications for renal function * Outpatient HD MWF at [facility] Subjective Date of service: 12/22/17 Principal diagnosis: CARMEN on CKD; Acute Encephalopathy; Sepsis Syndrome; Anemia Interval history: Patient resting comfortably at time of visit. Objective - Vital Signs Vital signs: Vital Signs - 12hr 12/22/17 12/22/17 00:49 05:25 Temperature 98.3 F 98.2 F Pulse Rate 73 59 L Respiratory 18 20 Rate Blood Pressure 105/53 117/53 [Left] O2 Sat by Pulse 95 98 Oximetry - General Appearance General appearance: well-developed EENT: ATNC Respiratory: Present: Decreased Breath Sounds Cardiology: regular, S1S2 Gastrointestinal: no tenderness Integumentary: warm and dry Musculoskeletal: other (no edema) Psychiatric: cooperative - Lab 12/21/17 05:26 12/19/17 05:55 Most recent lab results Calcium 8.2 mg/dL (8.4-10.2) L 12/19/17 05:55 Magnesium 1.80 mg/dL (1.7-2.3) 12/12/17 03:41 Urine Creatinine 122.5 mg/dL (0.1-20.0) H 12/14/17 Unknown
[2017-12-22] MEDS ORDERED: NACL 0.9 (PRIMING MACHINE ONLY DIALYSIS) MC ONE (11:46)
--- NOTE | 2017-12-22 14:29 | Progress Note ---
Assessment and Plan Assessment and plan: NSVT, resolved. On Lopressor Septic/hypovolemic shock. Resolved. Continue midodrine. Blood and urine cultures are negative. Sepsis Acute blood loss anemia. Transfuse PRBCs as needed. Rectal bleeding. Resolved. No new bleeding episodes since admission. GI reported no plans to scope UTI. Urine cx negative Cirrhosis with esophageal varices. GI following. Patient without signs of active bleeding. If any signs of bleeding we will start octreotide. GI with no plans to scope at this time. Toxic metabolic/hepatic encephalopathy. Patient with elevated ammonia level on admission. Continue to treat with lactulose and underlying causes of sepsis. Ammonia level has normalized and symptoms are improved. Acute on chronic kidney disease. Etiology likely secondary to acute kidney injury from ATN/sepsis/hypotension. Nephrology following. Started dialysis. discussed with Nephrology Hepatorenal syndrome. . Started dialysis. HD catheter placed by Vascular Bilateral pleural effusion right greater than left. I discussed with pulmonology. For thoracentesis on Sunday. Padding Gluer recommends giving FFP and obtaining thoracentesis on Sunday Coagulopathy from chronic liver disease. Vit K given but INR still high Discussed with patient and at bedside few days ago Nurse states patient was scheduled to have an evaluation in [place] on 12/30/2017 for possible liver transplant. Will discuss with . History Interval history: Feels better, No abdominal pain No fever Hospitalist Physical - Physical exam Narrative exam: Gen:Not in acute distress, lying in bed HEENT:Normocephalic atraumatic Neck: Supple, no JVD Lungs:Decreased breath sounds both bases, no rhonchi, no wheeze Heart:S1 and S2 reg, no murmurs, rubs or gallop Abd: Soft, non tender, non distended, normal bowel sounds Ext: No edema, clubbing or cyanosis Neuro: awake.alert, moves all extremities - Constitutional Vitals: Temp Pulse Resp BP Pulse Ox 98.1 F 62 16 114/60 98 12/22/17 12:05 12/22/17 13:30 12/22/17 12:05 12/22/17 13:30 12/22/17 05:25 General appearance: Present: no acute distress Results - Labs CBC & Chem 7: 12/21/17 05:26 12/19/17 05:55 Labs: Laboratory Last Values WBC 9.4 K/mm3 (4.5-11.0) 12/21/17 05:26 RBC 2.60 M/mm3 (3.65-5.03) L 12/21/17 05:26 Hgb 8.4 gm/dl (11.8-15.2) L 12/21/17 05:26 Hct 23.9 % (35.5-45.6) L 12/21/17 05:26 MCV 92 fl (84-94) 12/21/17 05:26 MCH 32 pg (28-32) 12/21/17 05:26 MCHC 35 % (32-34) H 12/21/17 05:26 RDW 16.2 % (13.2-15.2) H 12/21/17 05:26 Plt Count 57 K/mm3 (140-440) L 12/21/17 05:26 Lymph % (Auto) 12.4 % (13.4-35.0) L 12/21/17 05:26 Kay % (Auto) 10.7 % (0.0-7.3) H 12/21/17 05:26 Eos % (Auto) 1.5 % (0.0-4.3) 12/21/17 05:26 Baso % (Auto) 0.6 % (0.0-1.8) 12/21/17 05:26 Lymph # 1.2 K/mm3 (1.2-5.4) 12/21/17 05:26 Kay # 1.0 K/mm3 (0.0-0.8) H 12/21/17 05:26 Eos # 0.1 K/mm3 (0.0-0.4) 12/21/17 05:26 Baso # 0.1 K/mm3 (0.0-0.1) 12/21/17 05:26 Add Manual Diff Complete 12/12/17 19:50 Total Counted 100 12/12/17 19:50 Seg Neutrophils % 74.8 % (40.0-70.0) H 12/21/17 05:26 Seg Neuts % (Manual) 87.0 % (40.0-70.0) H 12/12/17 19:50 Band Neutrophils % 0 % 12/12/17 19:50 Lymphocytes % (Manual) 5.0 % (13.4-35.0) L 12/12/17 19:50 Reactive Lymphs % (Man) 0 % 12/12/17 19:50 Monocytes % (Manual) 6.0 % (0.0-7.3) 12/12/17 19:50 Eosinophils % (Manual) 2.0 % (0.0-4.3) 12/12/17 19:50 Basophils % (Manual) 0 % (0.0-1.8) 12/12/17 19:50 Metamyelocytes % 0 % 12/12/17 19:50 Myelocytes % 0 % 12/12/17 19:50 Promyelocytes % 0 % 12/12/17 19:50 Blast Cells % 0 % 12/12/17 19:50 Nucleated RBC % Not Reportable 12/12/17 19:50 Seg Neutrophils # 7.0 K/mm3 (1.8-7.7) 12/21/17 05:26 Seg Neutrophils # Man 4.9 K/mm3 (1.8-7.7) 12/12/17 19:50 Band Neutrophils # 0.0 K/mm3 12/12/17 19:50 Lymphocytes # (Manual) 0.3 K/mm3 (1.2-5.4) L 12/12/17 19:50 Abs React Lymphs (Man) 0.0 K/mm3 12/12/17 19:50 Monocytes # (Manual) 0.3 K/mm3 (0.0-0.8) 12/12/17 19:50 Eosinophils # (Manual) 0.1 K/mm3 (0.0-0.4) 12/12/17 19:50 Basophils # (Manual) 0.0 K/mm3 (0.0-0.1) 12/12/17 19:50 Metamyelocytes # 0.0 K/mm3 12/12/17 19:50 Myelocytes # 0.0 K/mm3 12/12/17 19:50 Promyelocytes # 0.0 K/mm3 12/12/17 19:50 Blast Cells # 0.0 K/mm3 12/12/17 19:50 WBC Morphology Not Reportable 12/12/17 19:50 Hypersegmented Neuts Not Reportable 12/12/17 19:50 Hyposegmented Neuts Not Reportable 12/12/17 19:50 Hypogranular Neuts Not Reportable 12/12/17 19:50 Smudge Cells Not Reportable 12/12/17 19:50 Toxic Granulation Not Reportable 12/12/17 19:50 Toxic Vacuolation Not Reportable 12/12/17 19:50 Dohle Bodies Not Reportable 12/12/17 19:50 Pelger-Huet Anomaly Not Reportable 12/12/17 19:50 Eriberto Rods Not Reportable 12/12/17 19:50 Platelet Estimate Appears decreased 12/12/17 19:50 Clumped Platelets Not Reportable 12/12/17 19:50 Plt Clumps, EDTA Not Reportable 12/12/17 19:50 Large Platelets 1+ 12/12/17 19:50 Giant Platelets Not Reportable 12/12/17 19:50 Platelet Satelliting Not Reportable 12/12/17 19:50 Plt Morphology Comment Not Reportable 12/12/17 19:50 RBC Morphology Not Reportable 12/12/17 19:50 Dimorphic RBCs Not Reportable 12/12/17 19:50 Polychromasia Not Reportable 12/12/17 19:50 Hypochromasia 1+ 12/12/17 19:50 Poikilocytosis Not Reportable 12/12/17 19:50 Anisocytosis Not Reportable 12/12/17 19:50 Microcytosis Not Reportable 12/12/17 19:50 Macrocytosis Not Reportable 12/12/17 19:50 Spherocytes Not Reportable 12/12/17 19:50 Pappenheimer Bodies Not Reportable 12/12/17 19:50 Sickle Cells Not Reportable 12/12/17 19:50 Target Cells Not Reportable 12/12/17 19:50 Tear Drop Cells Not Reportable 12/12/17 19:50 Ovalocytes Not Reportable 12/12/17 19:50 Helmet Cells Not Reportable 12/12/17 19:50 Dos Santos-[place] Bodies Not Reportable 12/12/17 19:50 [place] Rings Not Reportable 12/12/17 19:50 [place] Cells 1+ 12/12/17 19:50 Bite Cells Not Reportable 12/12/17 19:50 Crenated Cell Not Reportable 12/12/17 19:50 Elliptocytes Not Reportable 12/12/17 19:50 Acanthocytes (Spur) 1+ 12/12/17 19:50 Rouleaux Not Reportable 12/12/17 19:50 Hemoglobin C Crystals Not Reportable 12/12/17 19:50 Schistocytes Not Reportable 12/12/17 19:50 Malaria parasites Not Reportable 12/12/17 19:50 ESR 18 mm/Hr (0-20) 12/12/17 19:50 Lyndon Bodies Not Reportable 12/12/17 19:50 Hem Pathologist Commnt No 12/12/17 19:50 PT 26.4 Sec. (12.2-14.9) H 12/21/17 09:40 INR 2.26 (0.87-1.13) H 12/21/17 09:40 APTT 41.5 Sec. (24.2-36.6) H 12/12/17 19:50 Fibrinogen 128 mg/dl (211-480) L 12/12/17 19:50 D-Dimer 1215.06 ng/mlDDU (0-234) H 12/12/17 19:50 Factor VIII:C Activity 178 % (50-180) 12/12/17 20:30 POC ABG pH 7.452 (7.35-7.45) H 12/12/17 09:13 POC ABG pCO2 22.2 (35-45) L 12/12/17 09:13 POC ABG pO2 75 (80-105) L 12/12/17 09:13 POC ABG HCO3 15.5 12/12/17 09:13 POC ABG Total CO2 16 12/12/17 09:13 POC ABG O2 Sat 96 12/12/17 09:13 POC ABG Base Excess -8 12/12/17 09:13 FiO2 21 % 12/12/17 09:13 Sodium 142 mmol/L (137-145) 12/19/17 05:55 Potassium 3.9 mmol/L (3.6-5.0) 12/19/17 05:55 Chloride 94.5 mmol/L (98-107) L 12/19/17 05:55 Carbon Dioxide 28 mmol/L (22-30) 12/19/17 05:55 Anion Gap 23 mmol/L 12/19/17 05:55 BUN 27 mg/dL (9-20) H 12/19/17 05:55 Creatinine 3.6 mg/dL (0.8-1.5) H 12/19/17 05:55 Estimated GFR 21 ml/min 12/19/17 05:55 BUN/Creatinine Ratio 8 % 12/19/17 05:55 Glucose 86 mg/dL (75-100) 12/19/17 05:55 POC Glucose 131 (70-105) H 12/19/17 10:20 Lactic Acid 3.90 mmol/L (0.7-2.0) H* 12/14/17 17:26 Calcium 8.2 mg/dL (8.4-10.2) L 12/19/17 05:55 Magnesium 1.80 mg/dL (1.7-2.3) 12/12/17 03:41 Total Bilirubin 5.10 mg/dL (0.1-1.2) H 12/18/17 05:21 Direct Bilirubin 1.6 mg/dL (0-0.2) H 12/12/17 19:50 Indirect Bilirubin 2.5 mg/dL 12/12/17 19:50 AST 56 units/L (5-40) H 12/18/17 05:21 ALT 20 units/L (7-56) 12/18/17 05:21 Alkaline Phosphatase 66 units/L (35-129) 12/18/17 05:21 Ammonia 53.0 umol/L (25-60) 12/18/17 13:10 Lactate Dehydrogenase 213 units/L (91-180) H 12/12/17 19:50 Total Creatine Kinase 64 units/L (55-170) 12/10/17 23:14 C-Reactive Protein 0.30 mg/dL (0.00-1.30) 12/13/17 14:03 NT-Pro-B Natriuret Pep 9558 pg/mL (0-900) H 12/10/17 23:14 Total Protein 6.9 g/dL (6.3-8.2) 12/18/17 05:21 Albumin 4.0 g/dL (3.9-5) 12/18/17 05:21 Albumin/Globulin Ratio 1.4 % 12/18/17 05:21 Lipase 7 units/L (13-60) L 12/10/17 23:14 Vitamin B12 1465 pg/mL (211-911) H 12/12/17 19:50 Folate 14.04 ng/mL (7.3-26.0) 12/12/17 19:50 TSH 2.560 mlU/mL (0.270-4.200) 12/16/17 12:37 Total Cortisol 8.6 mcg/dL () 12/16/17 12:37 Urine Color Yellow (Yellow) 12/10/17 23:05 Urine Turbidity Clear (Clear) 12/10/17 23:05 Urine pH 5.0 (5.0-7.0) 12/10/17 23:05 Ur Specific [place] 1.013 (1.003-1.030) 12/10/17 23:05 Urine Protein <15 mg/dl mg/dL (Negative) 12/10/17 23:05 Urine Glucose (UA) Neg mg/dL (Negative) 12/10/17 23:05 Urine Ketones Neg mg/dL (Negative) 12/10/17 23:05 Urine Blood Neg (Negative) 12/10/17 23:05 Urine Nitrite Neg (Negative) 12/10/17 23:05 Ur Reducing Substances Not Reportable 12/10/17 23:05 Urine Bilirubin Neg (Negative) 12/10/17 23:05 Urine Ictotest Not Reportable 12/10/17 23:05 Urine Urobilinogen < 2.0 mg/dL (<2.0) 12/10/17 23:05 Ur Leukocyte Esterase Sm (Negative) 12/10/17 23:05 Urine WBC (Auto) 10.0 /HPF (0.0-6.0) H 12/10/17 23:05 Urine RBC (Auto) 4.0 /HPF (0.0-6.0) 12/10/17 23:05 U Epithel Cells (Auto) < 1.0 /HPF (0-13.0) 12/10/17 23:05 Urine Mucus Few /HPF 12/10/17 23:05 Urine Total Volume 250 12/14/17 Unknown Urine Creatinine 122.5 mg/dL (0.1-20.0) H 12/14/17 Unknown Ur Creatinine 24 Hour 0.3 (0.8-2.8) L 12/14/17 Unknown Digoxin 0.4 ng/mL (0.9-2.0) L 12/21/17 05:26 Hepatitis A IgM Ab Non-reactive (NonReactive) 12/12/17 19:50 Hep Bs Antigen Non-reactive (Negative) 12/12/17 19:50 Hep B Core IgM Ab Non-reactive (NonReactive) 12/12/17 19:50 Hepatitis C Antibody Non-reactive (NonReactive) 12/12/17 19:50 Miscellaneous Test Flexitest 1 12/12/17 06:42 Blood Type A NEGATIVE 12/16/17 20:45 Antibody Screen Negative 12/16/17 20:45 Direct Antiglob Test Negative 12/12/17 20:41 JOANNE, Poly Interpret Negative 12/12/17 20:41 Crossmatch See Detail 12/16/17 20:45
[2017-12-23 09:11] LABS: INR 2.42 (0.87-1.13)
[2017-12-23] MEDS: CEPHULAC PO SCH ×2 (09:34→21:38)
[2017-12-23] MEDS: PROTONIX FEEDTUBE SCH (09:35)
[2017-12-23] MEDS: XIFAXAN PO SCH ×2 (09:35→21:38)
[2017-12-23] MEDS: LOPRESSOR PO SCH ×2 (09:35→21:37)
[2017-12-23] MEDS: PROAMATINE PO SCH ×3 (09:35→21:37)
--- NOTE | 2017-12-23 10:27 | Progress Note ---
Assessment and Plan Assessment and plan: NSVT, resolved. On Lopressor Septic/hypovolemic shock. Resolved. Continue midodrine. Blood and urine cultures are negative. Sepsis Acute blood loss anemia. Transfuse PRBCs as needed. Rectal bleeding. Resolved. No new bleeding episodes since admission. GI reported no plans to scope UTI. Urine cx negative Cirrhosis with esophageal varices. GI following. Patient without signs of active bleeding. If any signs of bleeding we will start octreotide. GI with no plans to scope at this time. Toxic metabolic/hepatic encephalopathy. Patient with elevated ammonia level on admission. Continue to treat with lactulose and underlying causes of sepsis. Ammonia level has normalized and symptoms are improved. Acute on chronic kidney disease. Etiology likely secondary to acute kidney injury from ATN/sepsis/hypotension. Nephrology following. Started dialysis. Outpatient dialysis set up. Hepatorenal syndrome. . Started dialysis. HD catheter placed by Vascular Bilateral pleural effusion right greater than left. I discussed with pulmonology. For thoracentesis on Sunday. Weblogic Developer recommends giving FFP and obtaining thoracentesis on Sunday Coagulopathy from chronic liver disease. Vit K given but INR still high Discussed with patient and at bedside few days ago Nurse states patient was scheduled to have an evaluation in [place] on 12/30/2017 for possible liver transplant. Will discuss with . History Interval history: Feels better, No abdominal pain No fever Hospitalist Physical - Physical exam Narrative exam: Gen:Not in acute distress, lying in bed HEENT:Normocephalic atraumatic Neck: Supple, no JVD Lungs:Decreased breath sounds both bases, no rhonchi, no wheeze Heart:S1 and S2 reg, no murmurs, rubs or gallop Abd: Soft, non tender, non distended, normal bowel sounds Ext: No edema, clubbing or cyanosis Neuro: awake.alert, moves all extremities - Constitutional Vitals: Temp Pulse Resp BP Pulse Ox 98.8 F 58 L 18 91/52 100 12/23/17 07:42 12/23/17 07:42 12/23/17 07:42 12/23/17 09:35 12/23/17 07:42 General appearance: Present: no acute distress Results - Labs CBC & Chem 7: 12/21/17 05:26 12/19/17 05:55 Labs: Laboratory Last Values WBC 9.4 K/mm3 (4.5-11.0) 12/21/17 05:26 RBC 2.60 M/mm3 (3.65-5.03) L 12/21/17 05:26 Hgb 8.4 gm/dl (11.8-15.2) L 12/21/17 05:26 Hct 23.9 % (35.5-45.6) L 12/21/17 05:26 MCV 92 fl (84-94) 12/21/17 05:26 MCH 32 pg (28-32) 12/21/17 05:26 MCHC 35 % (32-34) H 12/21/17 05:26 RDW 16.2 % (13.2-15.2) H 12/21/17 05:26 Plt Count 57 K/mm3 (140-440) L 12/21/17 05:26 Lymph % (Auto) 12.4 % (13.4-35.0) L 12/21/17 05:26 Lea % (Auto) 10.7 % (0.0-7.3) H 12/21/17 05:26 Eos % (Auto) 1.5 % (0.0-4.3) 12/21/17 05:26 Baso % (Auto) 0.6 % (0.0-1.8) 12/21/17 05:26 Lymph # 1.2 K/mm3 (1.2-5.4) 12/21/17 05:26 Lea # 1.0 K/mm3 (0.0-0.8) H 12/21/17 05:26 Eos # 0.1 K/mm3 (0.0-0.4) 12/21/17 05:26 Baso # 0.1 K/mm3 (0.0-0.1) 12/21/17 05:26 Add Manual Diff Complete 12/12/17 19:50 Total Counted 100 12/12/17 19:50 Seg Neutrophils % 74.8 % (40.0-70.0) H 12/21/17 05:26 Seg Neuts % (Manual) 87.0 % (40.0-70.0) H 12/12/17 19:50 Band Neutrophils % 0 % 12/12/17 19:50 Lymphocytes % (Manual) 5.0 % (13.4-35.0) L 12/12/17 19:50 Reactive Lymphs % (Man) 0 % 12/12/17 19:50 Monocytes % (Manual) 6.0 % (0.0-7.3) 12/12/17 19:50 Eosinophils % (Manual) 2.0 % (0.0-4.3) 12/12/17 19:50 Basophils % (Manual) 0 % (0.0-1.8) 12/12/17 19:50 Metamyelocytes % 0 % 12/12/17 19:50 Myelocytes % 0 % 12/12/17 19:50 Promyelocytes % 0 % 12/12/17 19:50 Blast Cells % 0 % 12/12/17 19:50 Nucleated RBC % Not Reportable 12/12/17 19:50 Seg Neutrophils # 7.0 K/mm3 (1.8-7.7) 12/21/17 05:26 Seg Neutrophils # Man 4.9 K/mm3 (1.8-7.7) 12/12/17 19:50 Band Neutrophils # 0.0 K/mm3 12/12/17 19:50 Lymphocytes # (Manual) 0.3 K/mm3 (1.2-5.4) L 12/12/17 19:50 Abs React Lymphs (Man) 0.0 K/mm3 12/12/17 19:50 Monocytes # (Manual) 0.3 K/mm3 (0.0-0.8) 12/12/17 19:50 Eosinophils # (Manual) 0.1 K/mm3 (0.0-0.4) 12/12/17 19:50 Basophils # (Manual) 0.0 K/mm3 (0.0-0.1) 12/12/17 19:50 Metamyelocytes # 0.0 K/mm3 12/12/17 19:50 Myelocytes # 0.0 K/mm3 12/12/17 19:50 Promyelocytes # 0.0 K/mm3 12/12/17 19:50 Blast Cells # 0.0 K/mm3 12/12/17 19:50 WBC Morphology Not Reportable 12/12/17 19:50 Hypersegmented Neuts Not Reportable 12/12/17 19:50 Hyposegmented Neuts Not Reportable 12/12/17 19:50 Hypogranular Neuts Not Reportable 12/12/17 19:50 Smudge Cells Not Reportable 12/12/17 19:50 Toxic Granulation Not Reportable 12/12/17 19:50 Toxic Vacuolation Not Reportable 12/12/17 19:50 Dohle Bodies Not Reportable 12/12/17 19:50 Pelger-Huet Anomaly Not Reportable 12/12/17 19:50 Eriberto Rods Not Reportable 12/12/17 19:50 Platelet Estimate Appears decreased 12/12/17 19:50 Clumped Platelets Not Reportable 12/12/17 19:50 Plt Clumps, EDTA Not Reportable 12/12/17 19:50 Large Platelets 1+ 12/12/17 19:50 Giant Platelets Not Reportable 12/12/17 19:50 Platelet Satelliting Not Reportable 12/12/17 19:50 Plt Morphology Comment Not Reportable 12/12/17 19:50 RBC Morphology Not Reportable 12/12/17 19:50 Dimorphic RBCs Not Reportable 12/12/17 19:50 Polychromasia Not Reportable 12/12/17 19:50 Hypochromasia 1+ 12/12/17 19:50 Poikilocytosis Not Reportable 12/12/17 19:50 Anisocytosis Not Reportable 12/12/17 19:50 Microcytosis Not Reportable 12/12/17 19:50 Macrocytosis Not Reportable 12/12/17 19:50 Spherocytes Not Reportable 12/12/17 19:50 Pappenheimer Bodies Not Reportable 12/12/17 19:50 Sickle Cells Not Reportable 12/12/17 19:50 Target Cells Not Reportable 12/12/17 19:50 Tear Drop Cells Not Reportable 12/12/17 19:50 Ovalocytes Not Reportable 12/12/17 19:50 Helmet Cells Not Reportable 12/12/17 19:50 Dos Santos-[place] Bodies Not Reportable 12/12/17 19:50 [place] Rings Not Reportable 12/12/17 19:50 [place] Cells 1+ 12/12/17 19:50 Bite Cells Not Reportable 12/12/17 19:50 Crenated Cell Not Reportable 12/12/17 19:50 Elliptocytes Not Reportable 12/12/17 19:50 Acanthocytes (Spur) 1+ 12/12/17 19:50 Rouleaux Not Reportable 12/12/17 19:50 Hemoglobin C Crystals Not Reportable 12/12/17 19:50 Schistocytes Not Reportable 12/12/17 19:50 Malaria parasites Not Reportable 12/12/17 19:50 ESR 18 mm/Hr (0-20) 12/12/17 19:50 Lyndon Bodies Not Reportable 12/12/17 19:50 Hem Pathologist Commnt No 12/12/17 19:50 PT 27.9 Sec. (12.2-14.9) H 12/23/17 08:15 INR 2.42 (0.87-1.13) H 12/23/17 08:15 APTT 41.5 Sec. (24.2-36.6) H 12/12/17 19:50 Fibrinogen 128 mg/dl (211-480) L 12/12/17 19:50 D-Dimer 1215.06 ng/mlDDU (0-234) H 12/12/17 19:50 Factor VIII:C Activity 178 % (50-180) 12/12/17 20:30 POC ABG pH 7.452 (7.35-7.45) H 12/12/17 09:13 POC ABG pCO2 22.2 (35-45) L 12/12/17 09:13 POC ABG pO2 75 (80-105) L 12/12/17 09:13 POC ABG HCO3 15.5 12/12/17 09:13 POC ABG Total CO2 16 12/12/17 09:13 POC ABG O2 Sat 96 12/12/17 09:13 POC ABG Base Excess -8 12/12/17 09:13 FiO2 21 % 12/12/17 09:13 Sodium 142 mmol/L (137-145) 12/19/17 05:55 Potassium 3.9 mmol/L (3.6-5.0) 12/19/17 05:55 Chloride 94.5 mmol/L (98-107) L 12/19/17 05:55 Carbon Dioxide 28 mmol/L (22-30) 12/19/17 05:55 Anion Gap 23 mmol/L 12/19/17 05:55 BUN 27 mg/dL (9-20) H 12/19/17 05:55 Creatinine 3.6 mg/dL (0.8-1.5) H 12/19/17 05:55 Estimated GFR 21 ml/min 12/19/17 05:55 BUN/Creatinine Ratio 8 % 12/19/17 05:55 Glucose 86 mg/dL (75-100) 12/19/17 05:55 POC Glucose 131 (70-105) H 12/19/17 10:20 Lactic Acid 3.90 mmol/L (0.7-2.0) H* 12/14/17 17:26 Calcium 8.2 mg/dL (8.4-10.2) L 12/19/17 05:55 Magnesium 1.80 mg/dL (1.7-2.3) 12/12/17 03:41 Total Bilirubin 5.10 mg/dL (0.1-1.2) H 12/18/17 05:21 Direct Bilirubin 1.6 mg/dL (0-0.2) H 12/12/17 19:50 Indirect Bilirubin 2.5 mg/dL 12/12/17 19:50 AST 56 units/L (5-40) H 12/18/17 05:21 ALT 20 units/L (7-56) 12/18/17 05:21 Alkaline Phosphatase 66 units/L (35-129) 12/18/17 05:21 Ammonia 53.0 umol/L (25-60) 12/18/17 13:10 Lactate Dehydrogenase 213 units/L (91-180) H 12/12/17 19:50 Total Creatine Kinase 64 units/L (55-170) 12/10/17 23:14 C-Reactive Protein 0.30 mg/dL (0.00-1.30) 12/13/17 14:03 NT-Pro-B Natriuret Pep 9558 pg/mL (0-900) H 12/10/17 23:14 Total Protein 6.9 g/dL (6.3-8.2) 12/18/17 05:21 Albumin 4.0 g/dL (3.9-5) 12/18/17 05:21 Albumin/Globulin Ratio 1.4 % 12/18/17 05:21 Lipase 7 units/L (13-60) L 12/10/17 23:14 Vitamin B12 1465 pg/mL (211-911) H 12/12/17 19:50 Folate 14.04 ng/mL (7.3-26.0) 12/12/17 19:50 TSH 2.560 mlU/mL (0.270-4.200) 12/16/17 12:37 Total Cortisol 8.6 mcg/dL () 12/16/17 12:37 Urine Color Yellow (Yellow) 12/10/17 23:05 Urine Turbidity Clear (Clear) 12/10/17 23:05 Urine pH 5.0 (5.0-7.0) 12/10/17 23:05 Ur Specific [place] 1.013 (1.003-1.030) 12/10/17 23:05 Urine Protein <15 mg/dl mg/dL (Negative) 12/10/17 23:05 Urine Glucose (UA) Neg mg/dL (Negative) 12/10/17 23:05 Urine Ketones Neg mg/dL (Negative) 12/10/17 23:05 Urine Blood Neg (Negative) 12/10/17 23:05 Urine Nitrite Neg (Negative) 12/10/17 23:05 Ur Reducing Substances Not Reportable 12/10/17 23:05 Urine Bilirubin Neg (Negative) 12/10/17 23:05 Urine Ictotest Not Reportable 12/10/17 23:05 Urine Urobilinogen < 2.0 mg/dL (<2.0) 12/10/17 23:05 Ur Leukocyte Esterase Sm (Negative) 12/10/17 23:05 Urine WBC (Auto) 10.0 /HPF (0.0-6.0) H 12/10/17 23:05 Urine RBC (Auto) 4.0 /HPF (0.0-6.0) 12/10/17 23:05 U Epithel Cells (Auto) < 1.0 /HPF (0-13.0) 12/10/17 23:05 Urine Mucus Few /HPF 12/10/17 23:05 Urine Total Volume 250 12/14/17 Unknown Urine Creatinine 122.5 mg/dL (0.1-20.0) H 12/14/17 Unknown Ur Creatinine 24 Hour 0.3 (0.8-2.8) L 12/14/17 Unknown Digoxin 0.4 ng/mL (0.9-2.0) L 12/21/17 05:26 Hepatitis A IgM Ab Non-reactive (NonReactive) 12/12/17 19:50 Hep Bs Antigen Non-reactive (Negative) 12/12/17 19:50 Hep B Core IgM Ab Non-reactive (NonReactive) 12/12/17 19:50 Hepatitis C Antibody Non-reactive (NonReactive) 12/12/17 19:50 Miscellaneous Test Flexitest 1 12/12/17 06:42 Blood Type A NEGATIVE 12/16/17 20:45 Antibody Screen Negative 12/16/17 20:45 Direct Antiglob Test Negative 12/12/17 20:41 JOANNE, Poly Interpret Negative 12/12/17 20:41 Crossmatch See Detail 12/16/17 20:45
[2017-12-23] MEDS ORDERED: NACL 0.9% 100 ML IV PRN (10:47)
--- NOTE | 2017-12-23 10:48 | Progress Note ---
Assessment and Plan Impression: * Oliguric CARMEN secondary to ATN vs HRS --s/p permcath placement 12/17/17 and initiation of dialysis * Sepsis * Severe anemia secondary to ABL * Rectal bleeding * Cirrhosis w/ esophageal varices * Hyperbilirubinemia * Pyuria * Metabolic acidosis, resolved * Hyperkalemia, resolved Plan: * Patient remains oliguric w/o evidence of recovery. Continue dialysis - MWF schedule * Note plans for thoracentesis tomorrow * Empiric abx for SBP and UTI * Transfusion pRBC per primary team * Consultants' recommendations reviewed * Medical management of electrolytes * Avoid potential nephrotoxic agents * Dose medications for renal function * Okay to d/c nash catheter * Outpatient HD MWF at [facility] arranged Subjective Date of service: 12/23/17 Principal diagnosis: CARMEN on CKD; Acute Encephalopathy; Sepsis Syndrome; Anemia Interval history: Patient is more alert this AM. Objective - Vital Signs Vital signs: Vital Signs - 12hr 12/23/17 12/23/17 12/23/17 00:09 05:43 07:42 Temperature 98.5 F 98.5 F 98.8 F Pulse Rate 58 L 59 L 58 L Respiratory 18 18 18 Rate Blood Pressure 92/40 96/38 86/45 O2 Sat by Pulse 96 100 100 Oximetry 12/23/17 12/23/17 09:35 10:00 Temperature Pulse Rate Respiratory 18 Rate Blood Pressure 91/52 O2 Sat by Pulse Oximetry - General Appearance General appearance: well-developed, frail EENT: ATNC Respiratory: Present: Clear to Ascultation Cardiology: regular, S1S2 Gastrointestinal: normal, no tenderness, no distended Integumentary: warm and dry Musculoskeletal: other (no edema) Psychiatric: cooperative - Lab 12/21/17 05:26 12/19/17 05:55 Most recent lab results Calcium 8.2 mg/dL (8.4-10.2) L 12/19/17 05:55 Magnesium 1.80 mg/dL (1.7-2.3) 12/12/17 03:41 Urine Creatinine 122.5 mg/dL (0.1-20.0) H 12/14/17 Unknown
--- NOTE | 2017-12-23 11:08 | Progress Note ---
Assessment and Plan Impression: Anemia s/p transfusion of PRBCs Thromocytopenia, chronic Chronic renal failure initiated on dialysis Hypotension -on midodrine therapy Hx of Cirrhosis with bleeding esophageal varices requiring TIPS 11/2016 Paroxysmal Atrial flutter seen on telemetry remains in NSR normal TSH on low dose beta blockers for suppression Left pleural effusion Echocardiogram shows mild cardiomyopathy with left ventricular ejection fraction 45-50%. There is mild to moderate tricuspid regurgitation, pulmonary artery pressure is 31, and there is a left pleural effusion. Plan: Patient is considered not a candidate for anticoagulation given underlying liver cirrhosis. Continue beta alejo therapy for suppression of paroxysmal atrial fibrillation. Extremely poor prognosis Subjective Date of service: 12/23/17 Principal diagnosis: CARMEN on CKD; Acute Encephalopathy; Sepsis Syndrome; Anemia Interval history: No events overnight Objective Vital Signs Temp Pulse Resp BP Pulse Ox 12/23/17 10:00 18 12/23/17 09:35 91/52 12/23/17 07:42 98.8 F 58 L 18 86/45 100 12/23/17 05:43 98.5 F 59 L 18 96/38 100 12/23/17 00:09 98.5 F 58 L 18 92/40 96 12/22/17 21:56 60 12/22/17 20:41 98.7 F 62 20 95/39 98 12/22/17 16:06 98.7 F 66 16 136/85 94 12/22/17 14:45 98.1 F 61 16 135/75 12/22/17 14:30 59 L 123/68 12/22/17 14:15 59 L 107/63 12/22/17 14:00 59 L 113/59 12/22/17 13:45 61 104/62 12/22/17 13:30 62 114/60 12/22/17 13:15 60 111/53 12/22/17 13:00 62 107/54 12/22/17 12:45 61 134/77 12/22/17 12:30 62 107/56 12/22/17 12:15 61 123/74 12/22/17 12:05 98.1 F 66 16 101/71 - Physical Examination Narrative exam: Physical examination Vitals reviewed GEN: No acute distress noted somnolent but arousable HEENT: Carotids 2+ NECK: Supple CVS: S1 and S2 heard no significant murmur or gallop noted LUNGS/CHEST: Normal auscultation ABD: Soft nontender Extremities: No edema noted normal color NEURO: Alert moves all all 4 extremities PSY: Stable General: No Apparent Distress HEENT: Positive: PERRL - Labs and Meds Coagulation 12/23/17 Range/Units 08:15 PT 27.9 H (12.2-14.9) Sec. INR 2.42 H (0.87-1.13) - Allied health notes Allied health notes reviewed: RT
--- NOTE | 2017-12-23 12:01 | Progress Note ---
Assessment and Plan Sepsis, possibly SBP Acute encephalopathy Severe anemia Lactic acidosis, multifactorial Cirrhosis with esophageal varices Rectal bleeding Coagulopathy Metabolic acidosis, multifactorial Respiratory alkalosis Nonoliguric CARMEN secondary to prerenal azotemia due to hypoperfusion ATN vs HRS Moderate protein calorie malnutrition -Vascath placed , HD initiated. Continue supportive MANAGER FLIGHT per renal service -Aspiration precautions -continue chronic home medications, including rifaximin and midodrine -Avoid nephrotoxics and adjust all medications for GFRs -Continue therapeutic PPI IR for right thoracentesis. Fluid to be sent for pleural fluid analysis Thoracentesis on hold secondary to coagulopathy. Plan for supportive transfusions to reverse coagulopathy acutely then thoracentesis -Ceftriaxone to continue for possible SBP -Continue with lactulose to titrate to 2-3 bowel movements a day -SCDs for VTE prophylaxis in view of GIB and coagulopathy -Supportive transfusions - Continue with nutritional support - Continue PT/OT FULL CODE STATUS PROGNOSIS GUARDED Subjective Date of service: 12/23/17 Principal diagnosis: CARMEN on CKD; Acute Encephalopathy; Sepsis Syndrome; Anemia Interval history: Seen and examined. vitals, labs, medications, chart and imaging reviewed. 24 hour events reviewed. No fevers or chills, no nausea or vomiting No shortness of breath. States he feels ok Objective Vital Signs - 12hr 12/23/17 12/23/17 12/23/17 00:09 05:43 07:42 Temperature 98.5 F 98.5 F 98.8 F Pulse Rate 58 L 59 L 58 L Respiratory 18 18 18 Rate Blood Pressure 92/40 96/38 86/45 O2 Sat by Pulse 96 100 100 Oximetry 12/23/17 12/23/17 09:35 10:00 Temperature Pulse Rate Respiratory 18 Rate Blood Pressure 91/52 O2 Sat by Pulse Oximetry Constitutional: lethargic, other (chronically ill looking elderly AAM, normocephalic and atraumatic) Eyes: non-icteric ENT: oropharynx moist, other (mallampati 2) Neck: supple, no lymphadenopathy, no JVD, other (no thyromegaly) Effort: normal Ascultation: Bilateral: diminished breath sounds (bases), rhonchi (scant) Percussion: Bilateral: not dull, dull (bases) Cardiovascular: regular rate and rhythm, other (S1,S2, no murmurms, gallops or rubs) Gastrointestinal: normoactive bowel sounds, soft, non-tender, other (distended) Integumentary: rash Extremities: no cyanosis, no edema, pulses normal, no ischemia or petechiae, cool Neurologic: non-focal exam, pupils equal and round, motor strength normal and ( weak), other (alert, awake) Psychiatric: other (normal affect) CBC and BMP: 12/28/17 06:24 12/27/17 06:34 ABG, PT/INR, D-dimer: ABG POC ABG pH 7.452 (7.35-7.45) H 12/12/17 09:13 POC ABG pCO2 22.2 (35-45) L 12/12/17 09:13 POC ABG pO2 75 (80-105) L 12/12/17 09:13 POC ABG HCO3 15.5 12/12/17 09:13 POC ABG Total CO2 16 12/12/17 09:13 POC ABG O2 Sat 96 12/12/17 09:13 PT/INR, D-dimer PT 27.9 Sec. (12.2-14.9) H 12/23/17 08:15 INR 2.42 (0.87-1.13) H 12/23/17 08:15 D-Dimer 1215.06 ng/mlDDU (0-234) H 12/12/17 19:50 Abnormal lab findings: Abnormal Labs 12/10/17 12/10/17 12/10/17 13:14 13:14 23:05 RBC 2.31 L Hgb 7.3 L Hct 21.5 L MCH MCHC RDW 17.7 H Plt Count 61 L Lymph % (Auto) [place] % (Auto) Lymph # [place] # Seg Neutrophils % Seg Neuts % (Manual) 81.0 H Lymphocytes % (Manual) 11.0 L Lymphocytes # (Manual) 0.6 L PT INR APTT Fibrinogen D-Dimer POC ABG pH POC ABG pCO2 POC ABG pO2 Sodium 136 L Potassium 5.2 H Chloride Carbon Dioxide 15 L BUN 47 H Creatinine 5.2 H Glucose 127 H POC Glucose Lactic Acid Calcium Total Bilirubin 3.50 H Direct Bilirubin AST 71 H Ammonia Lactate Dehydrogenase NT-Pro-B Natriuret Pep Total Protein Albumin 2.6 L Lipase Vitamin B12 Urine WBC (Auto) 10.0 H Urine Creatinine Ur Creatinine 24 Hour Digoxin Crossmatch 07/23/18 07/23/18 07/23/18 23:14 23:14 23:14 RBC Hgb Hct MCH MCHC RDW Plt Count Lymph % (Auto) [place] % (Auto) Lymph # [place] # Seg Neutrophils % Seg Neuts % (Manual) Lymphocytes % (Manual) Lymphocytes # (Manual) PT INR APTT Fibrinogen D-Dimer POC ABG pH POC ABG pCO2 POC ABG pO2 Sodium Potassium Chloride Carbon Dioxide BUN Creatinine Glucose POC Glucose Lactic Acid 2.40 H* Calcium Total Bilirubin Direct Bilirubin AST Ammonia 134.0 H Lactate Dehydrogenase NT-Pro-B Natriuret Pep 9558 H Total Protein Albumin Lipase Vitamin B12 Urine WBC (Auto) Urine Creatinine Ur Creatinine 24 Hour Digoxin Crossmatch 12/10/17 12/11/17 12/11/17 23:14 00:29 03:33 RBC Hgb Hct MCH MCHC RDW Plt Count Lymph % (Auto) [place] % (Auto) Lymph # [place] # Seg Neutrophils % Seg Neuts % (Manual) Lymphocytes % (Manual) Lymphocytes # (Manual) PT INR APTT Fibrinogen D-Dimer POC ABG pH POC ABG pCO2 POC ABG pO2 Sodium Potassium Chloride Carbon Dioxide BUN Creatinine Glucose POC Glucose Lactic Acid 2.80 H* 3.00 H* Calcium Total Bilirubin Direct Bilirubin AST Ammonia Lactate Dehydrogenase NT-Pro-B Natriuret Pep Total Protein Albumin Lipase 7 L Vitamin B12 Urine WBC (Auto) Urine Creatinine Ur Creatinine 24 Hour Digoxin Crossmatch 12/11/17 12/11/17 12/11/17 04:08 04:34 04:34 RBC Hgb Hct MCH MCHC RDW Plt Count Lymph % (Auto) [place] % (Auto) Lymph # [place] # Seg Neutrophils % Seg Neuts % (Manual) Lymphocytes % (Manual) Lymphocytes # (Manual) PT 19.1 H INR 1.51 H APTT 45.7 H Fibrinogen D-Dimer POC ABG pH POC ABG pCO2 POC ABG pO2 Sodium Potassium Chloride Carbon Dioxide BUN Creatinine Glucose POC Glucose 113 H Lactic Acid 3.10 H* Calcium Total Bilirubin Direct Bilirubin AST Ammonia Lactate Dehydrogenase NT-Pro-B Natriuret Pep Total Protein Albumin Lipase Vitamin B12 Urine WBC (Auto) Urine Creatinine Ur Creatinine 24 Hour Digoxin Crossmatch 12/11/17 12/11/17 12/11/17 06:46 07:26 09:42 RBC Hgb Hct MCH MCHC RDW Plt Count Lymph % (Auto) [place] % (Auto) Lymph # [place] # Seg Neutrophils % Seg Neuts % (Manual) Lymphocytes % (Manual) Lymphocytes # (Manual) PT INR APTT Fibrinogen D-Dimer POC ABG pH POC ABG pCO2 POC ABG pO2 Sodium Potassium Chloride Carbon Dioxide BUN Creatinine Glucose POC Glucose Lactic Acid 2.70 H* 2.80 H* 2.90 H* Calcium Total Bilirubin Direct Bilirubin AST Ammonia Lactate Dehydrogenase NT-Pro-B Natriuret Pep Total Protein Albumin Lipase Vitamin B12 Urine WBC (Auto) Urine Creatinine Ur Creatinine 24 Hour Digoxin Crossmatch 12/11/17 12/11/17 12/11/17 13:12 14:06 23:14 RBC Hgb Hct MCH MCHC RDW Plt Count Lymph % (Auto) [place] % (Auto) Lymph # [place] # Seg Neutrophils % Seg Neuts % (Manual) Lymphocytes % (Manual) Lymphocytes # (Manual) PT INR APTT Fibrinogen D-Dimer POC ABG pH POC ABG pCO2 POC ABG pO2 Sodium Potassium Chloride Carbon Dioxide BUN Creatinine Glucose POC Glucose Lactic Acid 3.10 H* 3.10 H* 3.70 H* Calcium Total Bilirubin Direct Bilirubin AST Ammonia Lactate Dehydrogenase NT-Pro-B Natriuret Pep Total Protein Albumin Lipase Vitamin B12 Urine WBC (Auto) Urine Creatinine Ur Creatinine 24 Hour Digoxin Crossmatch 12/11/17 12/12/17 12/12/17 23:23 03:41 03:41 RBC 2.17 L Hgb 7.0 L Hct 19.9 L* MCH 33 H MCHC 35 H RDW 17.7 H Plt Count 62 L Lymph % (Auto) [place] % (Auto) Lymph # [place] # Seg Neutrophils % Seg Neuts % (Manual) 91.0 H Lymphocytes % (Manual) 3.0 L Lymphocytes # (Manual) 0.2 L PT INR APTT Fibrinogen D-Dimer POC ABG pH POC ABG pCO2 POC ABG pO2 Sodium Potassium 5.4 H Chloride Carbon Dioxide 12 L BUN 47 H Creatinine 4.5 H Glucose 103 H POC Glucose Lactic Acid Calcium 8.0 L Total Bilirubin 3.60 H Direct Bilirubin AST 58 H Ammonia Lactate Dehydrogenase NT-Pro-B Natriuret Pep Total Protein 5.9 L Albumin 2.5 L Lipase Vitamin B12 Urine WBC (Auto) Urine Creatinine Ur Creatinine 24 Hour Digoxin Crossmatch See Detail 12/12/17 12/12/17 12/12/17 07:00 09:13 17:55 RBC 2.06 L Hgb 6.6 L Hct 18.6 L* MCH MCHC 36 H RDW 17.8 H Plt Count 77 L Lymph % (Auto) [place] % (Auto) Lymph # [place] # Seg Neutrophils % Seg Neuts % (Manual) Lymphocytes % (Manual) Lymphocytes # (Manual) PT INR APTT Fibrinogen D-Dimer POC ABG pH 7.452 H POC ABG pCO2 22.2 L POC ABG pO2 75 L Sodium Potassium Chloride Carbon Dioxide BUN Creatinine Glucose POC Glucose 119 H Lactic Acid Calcium Total Bilirubin Direct Bilirubin AST Ammonia Lactate Dehydrogenase NT-Pro-B Natriuret Pep Total Protein Albumin Lipase Vitamin B12 Urine WBC (Auto) Urine Creatinine Ur Creatinine 24 Hour Digoxin Crossmatch 12/12/17 12/12/17 12/12/17 19:50 19:50 19:50 RBC 2.40 L Hgb 7.8 L Hct 21.3 L MCH 33 H MCHC 37 H RDW 16.1 H Plt Count 99 L Lymph % (Auto) [place] % (Auto) Lymph # [place] # Seg Neutrophils % Seg Neuts % (Manual) 87.0 H Lymphocytes % (Manual) 5.0 L Lymphocytes # (Manual) 0.3 L PT 21.9 H INR 1.79 H APTT 41.5 H Fibrinogen 128 L D-Dimer 1215.06 H POC ABG pH POC ABG pCO2 POC ABG pO2 Sodium Potassium Chloride Carbon Dioxide BUN Creatinine Glucose POC Glucose Lactic Acid Calcium Total Bilirubin 4.10 H Direct Bilirubin 1.6 H AST Ammonia Lactate Dehydrogenase NT-Pro-B Natriuret Pep Total Protein Albumin Lipase Vitamin B12 Urine WBC (Auto) Urine Creatinine Ur Creatinine 24 Hour Digoxin Crossmatch 12/12/17 12/12/17 12/12/17 19:50 19:50 23:46 RBC Hgb Hct MCH MCHC RDW Plt Count Lymph % (Auto) [place] % (Auto) Lymph # [place] # Seg Neutrophils % Seg Neuts % (Manual) Lymphocytes % (Manual) Lymphocytes # (Manual) PT INR APTT Fibrinogen D-Dimer POC ABG pH POC ABG pCO2 POC ABG pO2 Sodium Potassium Chloride Carbon Dioxide BUN Creatinine Glucose POC Glucose 110 H Lactic Acid Calcium Total Bilirubin Direct Bilirubin AST Ammonia Lactate Dehydrogenase 213 H NT-Pro-B Natriuret Pep Total Protein Albumin Lipase Vitamin B12 1465 H Urine WBC (Auto) Urine Creatinine Ur Creatinine 24 Hour Digoxin Crossmatch 12/13/17 12/13/17 12/13/17 04:00 04:00 05:12 RBC 2.32 L Hgb 7.4 L Hct 20.8 L MCH MCHC 36 H RDW 16.1 H Plt Count 134 L Lymph % (Auto) 13.1 L [place] % (Auto) 7.9 H Lymph # 0.8 L [place] # Seg Neutrophils % 76.3 H Seg Neuts % (Manual) Lymphocytes % (Manual) Lymphocytes # (Manual) PT INR APTT Fibrinogen D-Dimer POC ABG pH POC ABG pCO2 POC ABG pO2 Sodium Potassium Chloride Carbon Dioxide 21 L D BUN 48 H Creatinine 4.6 H Glucose 104 H POC Glucose 134 H Lactic Acid Calcium 8.1 L Total Bilirubin 4.70 H Direct Bilirubin AST 43 H Ammonia Lactate Dehydrogenase NT-Pro-B Natriuret Pep Total Protein 5.8 L Albumin 3.1 L Lipase Vitamin B12 Urine WBC (Auto) Urine Creatinine Ur Creatinine 24 Hour Digoxin Crossmatch 12/13/17 12/13/17 12/13/17 08:45 12:25 14:03 RBC Hgb Hct MCH MCHC RDW Plt Count Lymph % (Auto) [place] % (Auto) Lymph # [place] # Seg Neutrophils % Seg Neuts % (Manual) Lymphocytes % (Manual) Lymphocytes # (Manual) PT 20.5 H INR 1.65 H APTT Fibrinogen D-Dimer POC ABG pH POC ABG pCO2 POC ABG pO2 Sodium Potassium Chloride Carbon Dioxide BUN Creatinine Glucose POC Glucose 112 H Lactic Acid 3.70 H* Calcium Total Bilirubin Direct Bilirubin AST Ammonia Lactate Dehydrogenase NT-Pro-B Natriuret Pep Total Protein Albumin Lipase Vitamin B12 Urine WBC (Auto) Urine Creatinine Ur Creatinine 24 Hour Digoxin Crossmatch 12/13/17 12/13/17 12/13/17 14:03 18:52 21:09 RBC Hgb Hct MCH MCHC RDW Plt Count Lymph % (Auto) [place] % (Auto) Lymph # [place] # Seg Neutrophils % Seg Neuts % (Manual) Lymphocytes % (Manual) Lymphocytes # (Manual) PT INR APTT Fibrinogen D-Dimer POC ABG pH POC ABG pCO2 POC ABG pO2 Sodium Potassium Chloride Carbon Dioxide BUN Creatinine Glucose POC Glucose 110 H Lactic Acid 4.00 H* Calcium Total Bilirubin Direct Bilirubin AST Ammonia 87.0 H Lactate Dehydrogenase NT-Pro-B Natriuret Pep Total Protein Albumin Lipase Vitamin B12 Urine WBC (Auto) Urine Creatinine Ur Creatinine 24 Hour Digoxin Crossmatch 12/14/17 12/14/17 12/14/17 00:25 03:30 03:30 RBC 2.29 L Hgb 7.3 L Hct 20.7 L MCH MCHC 35 H RDW 16.2 H Plt Count 84 L Lymph % (Auto) 12.8 L [place] % (Auto) 8.3 H Lymph # 0.6 L [place] # Seg Neutrophils % 77.2 H Seg Neuts % (Manual) Lymphocytes % (Manual) Lymphocytes # (Manual) PT INR APTT Fibrinogen D-Dimer POC ABG pH POC ABG pCO2 POC ABG pO2 Sodium Potassium Chloride 96.1 L Carbon Dioxide BUN 48 H Creatinine 4.6 H Glucose 125 H POC Glucose 131 H Lactic Acid Calcium 7.9 L Total Bilirubin 4.70 H Direct Bilirubin AST 45 H Ammonia Lactate Dehydrogenase NT-Pro-B Natriuret Pep Total Protein 6.1 L Albumin 3.4 L Lipase Vitamin B12 Urine WBC (Auto) Urine Creatinine Ur Creatinine 24 Hour Digoxin Crossmatch 12/14/17 12/14/17 12/14/17 05:31 12:26 12:55 RBC Hgb Hct MCH MCHC RDW Plt Count Lymph % (Auto) [place] % (Auto) Lymph # [place] # Seg Neutrophils % Seg Neuts % (Manual) Lymphocytes % (Manual) Lymphocytes # (Manual) PT INR APTT Fibrinogen D-Dimer POC ABG pH POC ABG pCO2 POC ABG pO2 Sodium Potassium Chloride Carbon Dioxide BUN Creatinine Glucose POC Glucose 125 H 117 H Lactic Acid 3.40 H* Calcium Total Bilirubin Direct Bilirubin AST Ammonia Lactate Dehydrogenase NT-Pro-B Natriuret Pep Total Protein Albumin Lipase Vitamin B12 Urine WBC (Auto) Urine Creatinine Ur Creatinine 24 Hour Digoxin Crossmatch 12/14/17 12/14/17 12/14/17 15:26 17:26 18:07 RBC Hgb Hct MCH MCHC RDW Plt Count Lymph % (Auto) [place] % (Auto) Lymph # [place] # Seg Neutrophils % Seg Neuts % (Manual) Lymphocytes % (Manual) Lymphocytes # (Manual) PT INR APTT Fibrinogen D-Dimer POC ABG pH POC ABG pCO2 POC ABG pO2 Sodium Potassium Chloride Carbon Dioxide BUN Creatinine Glucose POC Glucose 143 H Lactic Acid 4.00 H* 3.90 H* Calcium Total Bilirubin Direct Bilirubin AST Ammonia Lactate Dehydrogenase NT-Pro-B Natriuret Pep Total Protein Albumin Lipase Vitamin B12 Urine WBC (Auto) Urine Creatinine Ur Creatinine 24 Hour Digoxin Crossmatch 12/14/17 12/15/17 12/15/17 Unknown 00:08 04:51 RBC 2.27 L Hgb 7.3 L Hct 20.7 L MCH MCHC 35 H RDW 16.1 H Plt Count 92 L Lymph % (Auto) 12.5 L [place] % (Auto) 10.4 H Lymph # 0.6 L [place] # Seg Neutrophils % 74.7 H Seg Neuts % (Manual) Lymphocytes % (Manual) Lymphocytes # (Manual) PT INR APTT Fibrinogen D-Dimer POC ABG pH POC ABG pCO2 POC ABG pO2 Sodium Potassium Chloride Carbon Dioxide BUN Creatinine Glucose POC Glucose 124 H Lactic Acid Calcium Total Bilirubin Direct Bilirubin AST Ammonia Lactate Dehydrogenase NT-Pro-B Natriuret Pep Total Protein Albumin Lipase Vitamin B12 Urine WBC (Auto) Urine Creatinine 122.5 H Ur Creatinine 24 Hour 0.3 L Digoxin Crossmatch 12/15/17 12/15/17 12/15/17 04:51 04:51 05:56 RBC Hgb Hct MCH MCHC RDW Plt Count Lymph % (Auto) [place] % (Auto) Lymph # [place] # Seg Neutrophils % Seg Neuts % (Manual) Lymphocytes % (Manual) Lymphocytes # (Manual) PT INR APTT Fibrinogen D-Dimer POC ABG pH POC ABG pCO2 POC ABG pO2 Sodium Potassium 3.5 L Chloride 92.6 L Carbon Dioxide BUN 50 H Creatinine 4.8 H Glucose 141 H POC Glucose 143 H Lactic Acid Calcium 7.9 L Total Bilirubin 3.60 H Direct Bilirubin AST 44 H Ammonia 24.0 L Lactate Dehydrogenase NT-Pro-B Natriuret Pep Total Protein 6.1 L Albumin 3.8 L Lipase Vitamin B12 Urine WBC (Auto) Urine Creatinine Ur Creatinine 24 Hour Digoxin Crossmatch 12/15/17 12/15/17 12/16/17 12:17 23:10 07:04 RBC Hgb Hct MCH MCHC RDW Plt Count Lymph % (Auto) [place] % (Auto) Lymph # [place] # Seg Neutrophils % Seg Neuts % (Manual) Lymphocytes % (Manual) Lymphocytes # (Manual) PT INR APTT Fibrinogen D-Dimer POC ABG pH POC ABG pCO2 POC ABG pO2 Sodium Potassium Chloride Carbon Dioxide BUN Creatinine Glucose POC Glucose 127 H 157 H 147 H Lactic Acid Calcium Total Bilirubin Direct Bilirubin AST Ammonia Lactate Dehydrogenase NT-Pro-B Natriuret Pep Total Protein Albumin Lipase Vitamin B12 Urine WBC (Auto) Urine Creatinine Ur Creatinine 24 Hour Digoxin Crossmatch 12/16/17 12/16/17 12/16/17 11:35 12:37 12:37 RBC 2.21 L Hgb 6.9 L Hct 20.2 L MCH MCHC RDW 16.2 H Plt Count 50 L Lymph % (Auto) [place] % (Auto) 9.7 H Lymph # 0.7 L [place] # Seg Neutrophils % 73.1 H Seg Neuts % (Manual) Lymphocytes % (Manual) Lymphocytes # (Manual) PT INR APTT Fibrinogen D-Dimer POC ABG pH POC ABG pCO2 POC ABG pO2 Sodium Potassium Chloride 88.2 L Carbon Dioxide BUN 52 H Creatinine 5.5 H Glucose 107 H POC Glucose 134 H Lactic Acid Calcium 7.8 L Total Bilirubin 2.60 H Direct Bilirubin AST 49 H Ammonia Lactate Dehydrogenase NT-Pro-B Natriuret Pep Total Protein Albumin 3.6 L Lipase Vitamin B12 Urine WBC (Auto) Urine Creatinine Ur Creatinine 24 Hour Digoxin Crossmatch 12/16/17 12/16/17 12/16/17 18:06 20:45 23:34 RBC Hgb Hct MCH MCHC RDW Plt Count Lymph % (Auto) [place] % (Auto) Lymph # [place] # Seg Neutrophils % Seg Neuts % (Manual) Lymphocytes % (Manual) Lymphocytes # (Manual) PT INR APTT Fibrinogen D-Dimer POC ABG pH POC ABG pCO2 POC ABG pO2 Sodium Potassium Chloride Carbon Dioxide BUN Creatinine Glucose POC Glucose 133 H 139 H Lactic Acid Calcium Total Bilirubin Direct Bilirubin AST Ammonia Lactate Dehydrogenase NT-Pro-B Natriuret Pep Total Protein Albumin Lipase Vitamin B12 Urine WBC (Auto) Urine Creatinine Ur Creatinine 24 Hour Digoxin Crossmatch See Detail 12/17/17 12/17/17 12/17/17 05:27 05:27 06:11 RBC 2.10 L Hgb 6.6 L Hct 19.2 L* MCH MCHC 35 H RDW 16.5 H Plt Count 65 L Lymph % (Auto) 12.6 L [place] % (Auto) 9.6 H Lymph # 0.7 L [place] # Seg Neutrophils % 75.8 H Seg Neuts % (Manual) Lymphocytes % (Manual) Lymphocytes # (Manual) PT INR APTT Fibrinogen D-Dimer POC ABG pH POC ABG pCO2 POC ABG pO2 Sodium 135 L Potassium 3.4 L Chloride 84.9 L Carbon Dioxide 33 H BUN 53 H Creatinine 5.9 H Glucose POC Glucose 110 H Lactic Acid Calcium 7.7 L Total Bilirubin 2.70 H Direct Bilirubin AST 50 H Ammonia Lactate Dehydrogenase NT-Pro-B Natriuret Pep Total Protein 6.2 L Albumin 3.7 L Lipase Vitamin B12 Urine WBC (Auto) Urine Creatinine Ur Creatinine 24 Hour Digoxin Crossmatch 12/17/17 12/18/17 12/18/17 09:34 00:05 05:21 RBC 3.35 L Hgb 10.3 L D Hct 30.4 L D MCH MCHC RDW 16.2 H Plt Count 57 L Lymph % (Auto) 8.0 L [place] % (Auto) 10.9 H Lymph # 0.6 L [place] # Seg Neutrophils % 80.2 H Seg Neuts % (Manual) Lymphocytes % (Manual) Lymphocytes # (Manual) PT 23.9 H INR 1.99 H APTT Fibrinogen D-Dimer POC ABG pH POC ABG pCO2 POC ABG pO2 Sodium Potassium Chloride Carbon Dioxide BUN Creatinine Glucose POC Glucose 132 H Lactic Acid Calcium Total Bilirubin Direct Bilirubin AST Ammonia Lactate Dehydrogenase NT-Pro-B Natriuret Pep Total Protein Albumin Lipase Vitamin B12 Urine WBC (Auto) Urine Creatinine Ur Creatinine 24 Hour Digoxin Crossmatch 12/18/17 12/18/17 12/18/17 05:21 06:16 11:11 RBC Hgb Hct MCH MCHC RDW Plt Count Lymph % (Auto) [place] % (Auto) Lymph # [place] # Seg Neutrophils % Seg Neuts % (Manual) Lymphocytes % (Manual) Lymphocytes # (Manual) PT 34.7 H INR 3.17 H APTT Fibrinogen D-Dimer POC ABG pH POC ABG pCO2 POC ABG pO2 Sodium Potassium 3.5 L Chloride 87.1 L Carbon Dioxide BUN 35 H Creatinine 4.3 H Glucose 110 H POC Glucose 116 H Lactic Acid Calcium 8.1 L Total Bilirubin 5.10 H Direct Bilirubin AST 56 H Ammonia Lactate Dehydrogenase NT-Pro-B Natriuret Pep Total Protein Albumin Lipase Vitamin B12 Urine WBC (Auto) Urine Creatinine Ur Creatinine 24 Hour Digoxin Crossmatch 12/18/17 12/18/17 12/18/17 13:10 17:52 22:04 RBC Hgb Hct MCH MCHC RDW Plt Count Lymph % (Auto) [place] % (Auto) Lymph # [place] # Seg Neutrophils % Seg Neuts % (Manual) Lymphocytes % (Manual) Lymphocytes # (Manual) PT 25.9 H INR 2.20 H APTT Fibrinogen D-Dimer POC ABG pH POC ABG pCO2 POC ABG pO2 Sodium Potassium Chloride Carbon Dioxide BUN Creatinine Glucose POC Glucose 114 H 108 H Lactic Acid Calcium Total Bilirubin Direct Bilirubin AST Ammonia Lactate Dehydrogenase NT-Pro-B Natriuret Pep Total Protein Albumin Lipase Vitamin B12 Urine WBC (Auto) Urine Creatinine Ur Creatinine 24 Hour Digoxin Crossmatch 12/19/17 12/19/17 12/19/17 05:55 05:55 10:20 RBC 2.85 L Hgb 9.1 L Hct 25.7 L MCH MCHC 35 H RDW 16.4 H Plt Count 61 L Lymph % (Auto) [place] % (Auto) Lymph # [place] # Seg Neutrophils % Seg Neuts % (Manual) Lymphocytes % (Manual) Lymphocytes # (Manual) PT INR APTT Fibrinogen D-Dimer POC ABG pH POC ABG pCO2 POC ABG pO2 Sodium Potassium Chloride 94.5 L Carbon Dioxide BUN 27 H Creatinine 3.6 H Glucose POC Glucose 131 H Lactic Acid Calcium 8.2 L Total Bilirubin Direct Bilirubin AST Ammonia Lactate Dehydrogenase NT-Pro-B Natriuret Pep Total Protein Albumin Lipase Vitamin B12 Urine WBC (Auto) Urine Creatinine Ur Creatinine 24 Hour Digoxin Crossmatch 12/19/17 12/21/17 12/21/17 11:46 05:26 05:26 RBC 2.60 L Hgb 8.4 L Hct 23.9 L MCH MCHC 35 H RDW 16.2 H Plt Count 57 L Lymph % (Auto) 12.4 L [place] % (Auto) 10.7 H Lymph # [place] # 1.0 H Seg Neutrophils % 74.8 H Seg Neuts % (Manual) Lymphocytes % (Manual) Lymphocytes # (Manual) PT 26.2 H INR 2.23 H APTT Fibrinogen D-Dimer POC ABG pH POC ABG pCO2 POC ABG pO2 Sodium Potassium Chloride Carbon Dioxide BUN Creatinine Glucose POC Glucose Lactic Acid Calcium Total Bilirubin Direct Bilirubin AST Ammonia Lactate Dehydrogenase NT-Pro-B Natriuret Pep Total Protein Albumin Lipase Vitamin B12 Urine WBC (Auto) Urine Creatinine Ur Creatinine 24 Hour Digoxin 0.4 L Crossmatch 12/21/17 12/23/17 09:40 08:15 RBC Hgb Hct MCH MCHC RDW Plt Count Lymph % (Auto) [place] % (Auto) Lymph # [place] # Seg Neutrophils % Seg Neuts % (Manual) Lymphocytes % (Manual) Lymphocytes # (Manual) PT 26.4 H 27.9 H INR 2.26 H 2.42 H APTT Fibrinogen D-Dimer POC ABG pH POC ABG pCO2 POC ABG pO2 Sodium Potassium Chloride Carbon Dioxide BUN Creatinine Glucose POC Glucose Lactic Acid Calcium Total Bilirubin Direct Bilirubin AST Ammonia Lactate Dehydrogenase NT-Pro-B Natriuret Pep Total Protein Albumin Lipase Vitamin B12 Urine WBC (Auto) Urine Creatinine Ur Creatinine 24 Hour Digoxin Crossmatch Allied health notes reviewed: RT
[2017-12-24 05:42] LABS: Mean Corpuscular HGB Conc 35 % (32-34); Mean Corpuscular Hemoglobin 33 pg (28-32); Mean Corpuscular Volume 94 fl (84-94); Red Cell Distribution Width 16.5 % (13.2-15.2)
[2017-12-24 05:47] LABS: Hemoglobin 5.9 gm/dl (11.8-15.2); Platelet Count 53 K/mm3 (140-440)
[2017-12-24 06:07] LABS: Calcium 8.1 mg/dL (8.4-10.2)
[2017-12-24] MEDS ORDERED: NACL 0.9% 500 ML 500 ML IV ONE ×2 (06:15→09:00)
[2017-12-24] MEDS ORDERED: VITAMIN K (ADULT ONLY) SUB-Q NR (07:57)
--- NOTE | 2017-12-24 08:47 | Progress Note ---
Assessment and Plan Assessment and plan: NSVT, resolved. On Lopressor Septic/hypovolemic shock. Resolved. Continue midodrine. Blood and urine cultures are negative. Sepsis Coagulopathy from chronic liver disease. INR 2.2. Will give 2 Units FFP, Vit K Acute blood loss anemia. Hgb 5.9 today. Transfuse 2 Units PRBC, keep NPO, give FFP Re-consult GI Rectal bleeding, had resolved but hgb 5.9 today. GI reconsulted UTI. Urine cx negative Cirrhosis with esophageal varices. GI following. Patient without signs of active bleeding. If any signs of bleeding we will start octreotide. GI with no plans to scope at this time. Toxic metabolic/hepatic encephalopathy. Patient with elevated ammonia level on admission. Continue to treat with lactulose and underlying causes of sepsis. Ammonia level has normalized and symptoms are improved. Acute on chronic kidney disease. Etiology likely secondary to acute kidney injury from ATN/sepsis/hypotension. Nephrology following. Started dialysis. Outpatient dialysis set up. Hepatorenal syndrome. . Started dialysis. HD catheter placed by Vascular Bilateral pleural effusion right greater than left. I discussed with pulmonology. For thoracentesis on Sunday. Business Proposal Rep recommends giving FFP and obtaining thoracentesis on Sunday Coagulopathy from chronic liver disease. Vit K given but INR still high. Give 2 Units FFP, more Vit K Discussed with patient and at bedside today 12/24 Nurse [facility] patient was scheduled to have an evaluation in [place] on 12/30/2017 for possible liver transplant. Discussed with today. Will call contact center specialist in [place] and discuss case. History Interval history: Hemoglobin 5.9 No obvious blood in stool as per nurse no hematemesis Hospitalist Physical - Physical exam Narrative exam: Gen:Not in acute distress, lying in bed HEENT:Normocephalic atraumatic Neck: Supple, no JVD Lungs:Decreased breath sounds both bases, no rhonchi, no wheeze Heart:S1 and S2 reg, no murmurs, rubs or gallop Abd: Soft, non tender, non distended, normal bowel sounds Ext: No edema, clubbing or cyanosis Neuro: awake.alert, moves all extremities,legally blind - Constitutional Vitals: Temp Pulse Resp BP Pulse Ox 98.7 F 59 L 18 94/50 98 12/24/17 04:19 12/24/17 04:21 12/24/17 04:19 12/24/17 04:21 12/24/17 04:21 General appearance: Present: no acute distress Results - Labs CBC & Chem 7: 12/24/17 04:51 12/24/17 04:51 Labs: Laboratory Last Values WBC 8.3 K/mm3 (4.5-11.0) 12/24/17 04:51 RBC 1.80 M/mm3 (3.65-5.03) L 12/24/17 04:51 Hgb 5.9 gm/dl (11.8-15.2) L* 12/24/17 04:51 Hct 17.0 % (35.5-45.6) L* D 12/24/17 04:51 MCV 94 fl (84-94) 12/24/17 04:51 MCH 33 pg (28-32) H 12/24/17 04:51 MCHC 35 % (32-34) H 12/24/17 04:51 RDW 16.5 % (13.2-15.2) H 12/24/17 04:51 Plt Count 53 K/mm3 (140-440) L 12/24/17 04:51 Lymph % (Auto) 12.4 % (13.4-35.0) L 12/21/17 05:26 [place] % (Auto) 10.7 % (0.0-7.3) H 12/21/17 05:26 Eos % (Auto) 1.5 % (0.0-4.3) 12/21/17 05:26 Baso % (Auto) 0.6 % (0.0-1.8) 12/21/17 05:26 Lymph # 1.2 K/mm3 (1.2-5.4) 12/21/17 05:26 [place] # 1.0 K/mm3 (0.0-0.8) H 12/21/17 05:26 Eos # 0.1 K/mm3 (0.0-0.4) 12/21/17 05:26 Baso # 0.1 K/mm3 (0.0-0.1) 12/21/17 05:26 Add Manual Diff Complete 12/12/17 19:50 Total Counted 100 12/12/17 19:50 Seg Neutrophils % 74.8 % (40.0-70.0) H 12/21/17 05:26 Seg Neuts % (Manual) 87.0 % (40.0-70.0) H 12/12/17 19:50 Band Neutrophils % 0 % 12/12/17 19:50 Lymphocytes % (Manual) 5.0 % (13.4-35.0) L 12/12/17 19:50 Reactive Lymphs % (Man) 0 % 12/12/17 19:50 Monocytes % (Manual) 6.0 % (0.0-7.3) 12/12/17 19:50 Eosinophils % (Manual) 2.0 % (0.0-4.3) 12/12/17 19:50 Basophils % (Manual) 0 % (0.0-1.8) 12/12/17 19:50 Metamyelocytes % 0 % 12/12/17 19:50 Myelocytes % 0 % 12/12/17 19:50 Promyelocytes % 0 % 12/12/17 19:50 Blast Cells % 0 % 12/12/17 19:50 Nucleated RBC % Not Reportable 12/12/17 19:50 Seg Neutrophils # 7.0 K/mm3 (1.8-7.7) 12/21/17 05:26 Seg Neutrophils # Man 4.9 K/mm3 (1.8-7.7) 12/12/17 19:50 Band Neutrophils # 0.0 K/mm3 12/12/17 19:50 Lymphocytes # (Manual) 0.3 K/mm3 (1.2-5.4) L 12/12/17 19:50 Abs React Lymphs (Man) 0.0 K/mm3 12/12/17 19:50 Monocytes # (Manual) 0.3 K/mm3 (0.0-0.8) 12/12/17 19:50 Eosinophils # (Manual) 0.1 K/mm3 (0.0-0.4) 12/12/17 19:50 Basophils # (Manual) 0.0 K/mm3 (0.0-0.1) 12/12/17 19:50 Metamyelocytes # 0.0 K/mm3 12/12/17 19:50 Myelocytes # 0.0 K/mm3 12/12/17 19:50 Promyelocytes # 0.0 K/mm3 12/12/17 19:50 Blast Cells # 0.0 K/mm3 12/12/17 19:50 WBC Morphology Not Reportable 12/12/17 19:50 Hypersegmented Neuts Not Reportable 12/12/17 19:50 Hyposegmented Neuts Not Reportable 12/12/17 19:50 Hypogranular Neuts Not Reportable 12/12/17 19:50 Smudge Cells Not Reportable 12/12/17 19:50 Toxic Granulation Not Reportable 12/12/17 19:50 Toxic Vacuolation Not Reportable 12/12/17 19:50 Dohle Bodies Not Reportable 12/12/17 19:50 Pelger-Huet Anomaly Not Reportable 12/12/17 19:50 Eriberto Rods Not Reportable 12/12/17 19:50 Platelet Estimate Appears decreased 12/12/17 19:50 Clumped Platelets Not Reportable 12/12/17 19:50 Plt Clumps, EDTA Not Reportable 12/12/17 19:50 Large Platelets 1+ 12/12/17 19:50 Giant Platelets Not Reportable 12/12/17 19:50 Platelet Satelliting Not Reportable 12/12/17 19:50 Plt Morphology Comment Not Reportable 12/12/17 19:50 RBC Morphology Not Reportable 12/12/17 19:50 Dimorphic RBCs Not Reportable 12/12/17 19:50 Polychromasia Not Reportable 12/12/17 19:50 Hypochromasia 1+ 12/12/17 19:50 Poikilocytosis Not Reportable 12/12/17 19:50 Anisocytosis Not Reportable 12/12/17 19:50 Microcytosis Not Reportable 12/12/17 19:50 Macrocytosis Not Reportable 12/12/17 19:50 Spherocytes Not Reportable 12/12/17 19:50 Pappenheimer Bodies Not Reportable 12/12/17 19:50 Sickle Cells Not Reportable 12/12/17 19:50 Target Cells Not Reportable 12/12/17 19:50 Tear Drop Cells Not Reportable 12/12/17 19:50 Ovalocytes Not Reportable 12/12/17 19:50 Helmet Cells Not Reportable 12/12/17 19:50 [place] Bodies Not Reportable 12/12/17 19:50 [place] Rings Not Reportable 12/12/17 19:50 [place] Cells 1+ 12/12/17 19:50 Bite Cells Not Reportable 12/12/17 19:50 Crenated Cell Not Reportable 12/12/17 19:50 Elliptocytes Not Reportable 12/12/17 19:50 Acanthocytes (Spur) 1+ 12/12/17 19:50 Rouleaux Not Reportable 12/12/17 19:50 Hemoglobin C Crystals Not Reportable 12/12/17 19:50 Schistocytes Not Reportable 12/12/17 19:50 Malaria parasites Not Reportable 12/12/17 19:50 ESR 18 mm/Hr (0-20) 12/12/17 19:50 Lyndon Bodies Not Reportable 12/12/17 19:50 Hem Pathologist Commnt No 12/12/17 19:50 PT 27.9 Sec. (12.2-14.9) H 12/23/17 08:15 INR 2.42 (0.87-1.13) H 12/23/17 08:15 APTT 41.5 Sec. (24.2-36.6) H 12/12/17 19:50 Fibrinogen 128 mg/dl (211-480) L 12/12/17 19:50 D-Dimer 1215.06 ng/mlDDU (0-234) H 12/12/17 19:50 Factor VIII:C Activity 178 % (50-180) 12/12/17 20:30 POC ABG pH 7.452 (7.35-7.45) H 12/12/17 09:13 POC ABG pCO2 22.2 (35-45) L 12/12/17 09:13 POC ABG pO2 75 (80-105) L 12/12/17 09:13 POC ABG HCO3 15.5 12/12/17 09:13 POC ABG Total CO2 16 12/12/17 09:13 POC ABG O2 Sat 96 12/12/17 09:13 POC ABG Base Excess -8 12/12/17 09:13 FiO2 21 % 12/12/17 09:13 Sodium 142 mmol/L (137-145) 12/24/17 04:51 Potassium 3.5 mmol/L (3.6-5.0) L 12/24/17 04:51 Chloride 100.6 mmol/L (98-107) 12/24/17 04:51 Carbon Dioxide 25 mmol/L (22-30) 12/24/17 04:51 Anion Gap 20 mmol/L 12/24/17 04:51 BUN 21 mg/dL (9-20) H 12/24/17 04:51 Creatinine 4.4 mg/dL (0.8-1.5) H 12/24/17 04:51 Estimated GFR 16 ml/min 12/24/17 04:51 BUN/Creatinine Ratio 5 % 12/24/17 04:51 Glucose 86 mg/dL (75-100) 12/24/17 04:51 POC Glucose 131 (70-105) H 12/19/17 10:20 Lactic Acid 3.90 mmol/L (0.7-2.0) H* 12/14/17 17:26 Calcium 8.1 mg/dL (8.4-10.2) L 12/24/17 04:51 Magnesium 1.80 mg/dL (1.7-2.3) 12/12/17 03:41 Total Bilirubin 5.10 mg/dL (0.1-1.2) H 12/18/17 05:21 Direct Bilirubin 1.6 mg/dL (0-0.2) H 12/12/17 19:50 Indirect Bilirubin 2.5 mg/dL 12/12/17 19:50 AST 56 units/L (5-40) H 12/18/17 05:21 ALT 20 units/L (7-56) 12/18/17 05:21 Alkaline Phosphatase 66 units/L (35-129) 12/18/17 05:21 Ammonia 53.0 umol/L (25-60) 12/18/17 13:10 Lactate Dehydrogenase 213 units/L (91-180) H 12/12/17 19:50 Total Creatine Kinase 64 units/L (55-170) 12/10/17 23:14 C-Reactive Protein 0.30 mg/dL (0.00-1.30) 12/13/17 14:03 NT-Pro-B Natriuret Pep 9558 pg/mL (0-900) H 12/10/17 23:14 Total Protein 6.9 g/dL (6.3-8.2) 12/18/17 05:21 Albumin 4.0 g/dL (3.9-5) 12/18/17 05:21 Albumin/Globulin Ratio 1.4 % 12/18/17 05:21 Lipase 7 units/L (13-60) L 12/10/17 23:14 Vitamin B12 1465 pg/mL (211-911) H 12/12/17 19:50 Folate 14.04 ng/mL (7.3-26.0) 12/12/17 19:50 TSH 2.560 mlU/mL (0.270-4.200) 12/16/17 12:37 Total Cortisol 8.6 mcg/dL () 12/16/17 12:37 Urine Color Yellow (Yellow) 12/10/17 23:05 Urine Turbidity Clear (Clear) 12/10/17 23:05 Urine pH 5.0 (5.0-7.0) 12/10/17 23:05 Ur Specific [place] 1.013 (1.003-1.030) 12/10/17 23:05 Urine Protein <15 mg/dl mg/dL (Negative) 12/10/17 23:05 Urine Glucose (UA) Neg mg/dL (Negative) 12/10/17 23:05 Urine Ketones Neg mg/dL (Negative) 12/10/17 23:05 Urine Blood Neg (Negative) 12/10/17 23:05 Urine Nitrite Neg (Negative) 12/10/17 23:05 Ur Reducing Substances Not Reportable 12/10/17 23:05 Urine Bilirubin Neg (Negative) 12/10/17 23:05 Urine Ictotest Not Reportable 12/10/17 23:05 Urine Urobilinogen < 2.0 mg/dL (<2.0) 12/10/17 23:05 Ur Leukocyte Esterase Sm (Negative) 12/10/17 23:05 Urine WBC (Auto) 10.0 /HPF (0.0-6.0) H 12/10/17 23:05 Urine RBC (Auto) 4.0 /HPF (0.0-6.0) 12/10/17 23:05 U Epithel Cells (Auto) < 1.0 /HPF (0-13.0) 12/10/17 23:05 Urine Mucus Few /HPF 12/10/17 23:05 Urine Total Volume 250 12/14/17 Unknown Urine Creatinine 122.5 mg/dL (0.1-20.0) H 12/14/17 Unknown Ur Creatinine 24 Hour 0.3 (0.8-2.8) L 12/14/17 Unknown Digoxin 0.4 ng/mL (0.9-2.0) L 12/21/17 05:26 Hepatitis A IgM Ab Non-reactive (NonReactive) 12/12/17 19:50 Hep Bs Antigen Non-reactive (Negative) 12/12/17 19:50 Hep B Core IgM Ab Non-reactive (NonReactive) 12/12/17 19:50 Hepatitis C Antibody Non-reactive (NonReactive) 12/12/17 19:50 Miscellaneous Test Flexitest 1 12/12/17 06:42 Blood Type A NEGATIVE 12/16/17 20:45 Antibody Screen Negative 12/16/17 20:45 Direct Antiglob Test Negative 12/12/17 20:41 JOANNE, Poly Interpret Negative 12/12/17 20:41 Crossmatch See Detail 12/16/17 20:45
[2017-12-24 09:02] LABS: INR 3.87 (0.87-1.13)
[2017-12-24] MEDS: PROAMATINE PO SCH ×3 (09:19→21:42)
[2017-12-24] MEDS: LOPRESSOR PO SCH ×2 (09:19→21:42)
[2017-12-24] MEDS: PROTONIX FEEDTUBE SCH (09:19)
[2017-12-24] MEDS: XIFAXAN PO SCH ×2 (09:20→21:42)
[2017-12-24] MEDS: CEPHULAC PO SCH ×2 (09:27→21:42)
--- NOTE | 2017-12-24 10:42 | Progress Note ---
Assessment and Plan Sepsis, possibly SBP Acute encephalopathy Severe anemia Lactic acidosis, multifactorial Cirrhosis with esophageal varices Rectal bleeding Coagulopathy Metabolic acidosis, multifactorial Respiratory alkalosis Nonoliguric CARMEN secondary to prerenal azotemia due to hypoperfusion ATN vs HRS Moderate protein calorie malnutrition - repeat CXR in am; if there has been significant improvement in effusions will hold on thoracentesis - HD/UF per nephrology prescription ( should also reduce pulmonary volume overload) - continue conservative volume management at this point now off vasopressors - Transfuse PRBC's for Hb < 7.0 (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) - prn analgesia - 2D ECHO with EF 40-45%; no overt pulm HTN - s/p antibiotic course for sepsis - continue Aspiration precautions - enteral nutrition as tolerated (s/p small bowel feeding tube) - continue chronic home medications, including rifaximin and midodrine - Avoid nephrotoxics and adjust all medications for GFR - GI evaluation ongoing; octreotide if signs of active bleeding; continue lactulose but frequency reduced to bid - continue therapeutic PPI - paracentesis per GI recs - Follow up cultures (NGTD) - SCDs for VTE prophylaxis in view of GIB and coagulopathy - Supportive transfusions - Nutrition consult placed - PT/OT consult placed - continue to monitor closely on telemetry ..... 25' Subjective Date of service: 12/24/17 Principal diagnosis: CARMEN on CKD; Acute Encephalopathy; Sepsis Syndrome; Anemia Interval history: Patient is seen today for: CARMEN on CKD; Acute Encephalopathy; Sepsis Syndrome; Anemia Seen and examined at bedside; 24hour events reviewed; nursing and respiratory care staff consulted; no adverse overnight events reported to me; resting in bed ; no N/V/F/C; some delirium; no gross bleeding; remains on supplemental oxygen therapy Objective Vital Signs - 12hr 12/23/17 12/23/17 12/24/17 23:00 23:54 00:00 Temperature Pulse Rate 58 L 60 62 Respiratory 18 Rate Blood Pressure 87/40 Blood Pressure 97/47 [Left] O2 Sat by Pulse 96 94 Oximetry 12/24/17 12/24/17 12/24/17 04:19 04:20 04:21 Temperature 98.7 F Pulse Rate 60 59 L Respiratory 18 Rate Blood Pressure 91/46 94/50 Blood Pressure [Left] O2 Sat by Pulse 97 98 Oximetry 12/24/17 07:41 Temperature 98.6 F Pulse Rate 66 Respiratory Rate Blood Pressure Blood Pressure 80/43 [Left] O2 Sat by Pulse Oximetry Constitutional: lethargic, other (chronically ill looking elderly AAM, normocephalic and atraumatic) Eyes: non-icteric ENT: oropharynx moist, other (mallampati 2) Neck: supple, no lymphadenopathy, no JVD, other (no thyromegaly) Effort: mildly labored Ascultation: Bilateral: diminished breath sounds (bases), rhonchi (scant) Percussion: Bilateral: dull (bases) Cardiovascular: regular rate and rhythm, other (S1,S2, no murmurms, gallops or rubs) Gastrointestinal: normoactive bowel sounds, soft, non-tender, other (distended) Integumentary: rash Extremities: no cyanosis, no edema, pulses normal, no ischemia or petechiae, cool Neurologic: non-focal exam, pupils equal and round, motor strength normal and ( weak), other (somnolent) Psychiatric: other (somnolent; flat affect) CBC and BMP: 12/25/17 05:27 12/25/17 05:27 ABG, PT/INR, D-dimer: ABG POC ABG pH 7.452 (7.35-7.45) H 12/12/17 09:13 POC ABG pCO2 22.2 (35-45) L 12/12/17 09:13 POC ABG pO2 75 (80-105) L 12/12/17 09:13 POC ABG HCO3 15.5 12/12/17 09:13 POC ABG Total CO2 16 12/12/17 09:13 POC ABG O2 Sat 96 12/12/17 09:13 PT/INR, D-dimer PT 40.8 Sec. (12.2-14.9) H 12/24/17 08:20 INR 3.87 (0.87-1.13) H 12/24/17 08:20 D-Dimer 1215.06 ng/mlDDU (0-234) H 12/12/17 19:50 Abnormal lab findings: Abnormal Labs 12/10/17 12/10/17 12/10/17 13:14 13:14 23:05 RBC 2.31 L Hgb 7.3 L Hct 21.5 L MCH MCHC RDW 17.7 H Plt Count 61 L Lymph % (Auto) Carbon % (Auto) Lymph # Carbon # Seg Neutrophils % Seg Neuts % (Manual) 81.0 H Lymphocytes % (Manual) 11.0 L Lymphocytes # (Manual) 0.6 L PT INR APTT Fibrinogen D-Dimer POC ABG pH POC ABG pCO2 POC ABG pO2 Sodium 136 L Potassium 5.2 H Chloride Carbon Dioxide 15 L BUN 47 H Creatinine 5.2 H Glucose 127 H POC Glucose Lactic Acid Calcium Total Bilirubin 3.50 H Direct Bilirubin AST 71 H Ammonia Lactate Dehydrogenase NT-Pro-B Natriuret Pep Total Protein Albumin 2.6 L Lipase Vitamin B12 Urine WBC (Auto) 10.0 H Urine Creatinine Ur Creatinine 24 Hour Digoxin Crossmatch 12/10/17 12/10/17 12/10/17 23:14 23:14 23:14 RBC Hgb Hct MCH MCHC RDW Plt Count Lymph % (Auto) Carbon % (Auto) Lymph # Carbon # Seg Neutrophils % Seg Neuts % (Manual) Lymphocytes % (Manual) Lymphocytes # (Manual) PT INR APTT Fibrinogen D-Dimer POC ABG pH POC ABG pCO2 POC ABG pO2 Sodium Potassium Chloride Carbon Dioxide BUN Creatinine Glucose POC Glucose Lactic Acid 2.40 H* Calcium Total Bilirubin Direct Bilirubin AST Ammonia 134.0 H Lactate Dehydrogenase NT-Pro-B Natriuret Pep 9558 H Total Protein Albumin Lipase Vitamin B12 Urine WBC (Auto) Urine Creatinine Ur Creatinine 24 Hour Digoxin Crossmatch 12/10/17 12/11/17 12/11/17 23:14 00:29 03:33 RBC Hgb Hct MCH MCHC RDW Plt Count Lymph % (Auto) Carbon % (Auto) Lymph # Carbon # Seg Neutrophils % Seg Neuts % (Manual) Lymphocytes % (Manual) Lymphocytes # (Manual) PT INR APTT Fibrinogen D-Dimer POC ABG pH POC ABG pCO2 POC ABG pO2 Sodium Potassium Chloride Carbon Dioxide BUN Creatinine Glucose POC Glucose Lactic Acid 2.80 H* 3.00 H* Calcium Total Bilirubin Direct Bilirubin AST Ammonia Lactate Dehydrogenase NT-Pro-B Natriuret Pep Total Protein Albumin Lipase 7 L Vitamin B12 Urine WBC (Auto) Urine Creatinine Ur Creatinine 24 Hour Digoxin Crossmatch 12/11/17 12/11/17 12/11/17 04:08 04:34 04:34 RBC Hgb Hct MCH MCHC RDW Plt Count Lymph % (Auto) Carbon % (Auto) Lymph # Carbon # Seg Neutrophils % Seg Neuts % (Manual) Lymphocytes % (Manual) Lymphocytes # (Manual) PT 19.1 H INR 1.51 H APTT 45.7 H Fibrinogen D-Dimer POC ABG pH POC ABG pCO2 POC ABG pO2 Sodium Potassium Chloride Carbon Dioxide BUN Creatinine Glucose POC Glucose 113 H Lactic Acid 3.10 H* Calcium Total Bilirubin Direct Bilirubin AST Ammonia Lactate Dehydrogenase NT-Pro-B Natriuret Pep Total Protein Albumin Lipase Vitamin B12 Urine WBC (Auto) Urine Creatinine Ur Creatinine 24 Hour Digoxin Crossmatch 12/11/17 12/11/17 12/11/17 06:46 07:26 09:42 RBC Hgb Hct MCH MCHC RDW Plt Count Lymph % (Auto) Carbon % (Auto) Lymph # Carbon # Seg Neutrophils % Seg Neuts % (Manual) Lymphocytes % (Manual) Lymphocytes # (Manual) PT INR APTT Fibrinogen D-Dimer POC ABG pH POC ABG pCO2 POC ABG pO2 Sodium Potassium Chloride Carbon Dioxide BUN Creatinine Glucose POC Glucose Lactic Acid 2.70 H* 2.80 H* 2.90 H* Calcium Total Bilirubin Direct Bilirubin AST Ammonia Lactate Dehydrogenase NT-Pro-B Natriuret Pep Total Protein Albumin Lipase Vitamin B12 Urine WBC (Auto) Urine Creatinine Ur Creatinine 24 Hour Digoxin Crossmatch 12/11/17 12/11/17 12/11/17 13:12 14:06 23:14 RBC Hgb Hct MCH MCHC RDW Plt Count Lymph % (Auto) Carbon % (Auto) Lymph # Carbon # Seg Neutrophils % Seg Neuts % (Manual) Lymphocytes % (Manual) Lymphocytes # (Manual) PT INR APTT Fibrinogen D-Dimer POC ABG pH POC ABG pCO2 POC ABG pO2 Sodium Potassium Chloride Carbon Dioxide BUN Creatinine Glucose POC Glucose Lactic Acid 3.10 H* 3.10 H* 3.70 H* Calcium Total Bilirubin Direct Bilirubin AST Ammonia Lactate Dehydrogenase NT-Pro-B Natriuret Pep Total Protein Albumin Lipase Vitamin B12 Urine WBC (Auto) Urine Creatinine Ur Creatinine 24 Hour Digoxin Crossmatch 12/11/17 12/12/17 12/12/17 23:23 03:41 03:41 RBC 2.17 L Hgb 7.0 L Hct 19.9 L* MCH 33 H MCHC 35 H RDW 17.7 H Plt Count 62 L Lymph % (Auto) Carbon % (Auto) Lymph # Carbon # Seg Neutrophils % Seg Neuts % (Manual) 91.0 H Lymphocytes % (Manual) 3.0 L Lymphocytes # (Manual) 0.2 L PT INR APTT Fibrinogen D-Dimer POC ABG pH POC ABG pCO2 POC ABG pO2 Sodium Potassium 5.4 H Chloride Carbon Dioxide 12 L BUN 47 H Creatinine 4.5 H Glucose 103 H POC Glucose Lactic Acid Calcium 8.0 L Total Bilirubin 3.60 H Direct Bilirubin AST 58 H Ammonia Lactate Dehydrogenase NT-Pro-B Natriuret Pep Total Protein 5.9 L Albumin 2.5 L Lipase Vitamin B12 Urine WBC (Auto) Urine Creatinine Ur Creatinine 24 Hour Digoxin Crossmatch See Detail 12/12/17 12/12/17 12/12/17 07:00 09:13 17:55 RBC 2.06 L Hgb 6.6 L Hct 18.6 L* MCH MCHC 36 H RDW 17.8 H Plt Count 77 L Lymph % (Auto) Carbon % (Auto) Lymph # Carbon # Seg Neutrophils % Seg Neuts % (Manual) Lymphocytes % (Manual) Lymphocytes # (Manual) PT INR APTT Fibrinogen D-Dimer POC ABG pH 7.452 H POC ABG pCO2 22.2 L POC ABG pO2 75 L Sodium Potassium Chloride Carbon Dioxide BUN Creatinine Glucose POC Glucose 119 H Lactic Acid Calcium Total Bilirubin Direct Bilirubin AST Ammonia Lactate Dehydrogenase NT-Pro-B Natriuret Pep Total Protein Albumin Lipase Vitamin B12 Urine WBC (Auto) Urine Creatinine Ur Creatinine 24 Hour Digoxin Crossmatch 12/12/17 12/12/17 12/12/17 19:50 19:50 19:50 RBC 2.40 L Hgb 7.8 L Hct 21.3 L MCH 33 H MCHC 37 H RDW 16.1 H Plt Count 99 L Lymph % (Auto) Carbon % (Auto) Lymph # Carbon # Seg Neutrophils % Seg Neuts % (Manual) 87.0 H Lymphocytes % (Manual) 5.0 L Lymphocytes # (Manual) 0.3 L PT 21.9 H INR 1.79 H APTT 41.5 H Fibrinogen 128 L D-Dimer 1215.06 H POC ABG pH POC ABG pCO2 POC ABG pO2 Sodium Potassium Chloride Carbon Dioxide BUN Creatinine Glucose POC Glucose Lactic Acid Calcium Total Bilirubin 4.10 H Direct Bilirubin 1.6 H AST Ammonia Lactate Dehydrogenase NT-Pro-B Natriuret Pep Total Protein Albumin Lipase Vitamin B12 Urine WBC (Auto) Urine Creatinine Ur Creatinine 24 Hour Digoxin Crossmatch 12/12/17 12/12/17 12/12/17 19:50 19:50 23:46 RBC Hgb Hct MCH MCHC RDW Plt Count Lymph % (Auto) Carbon % (Auto) Lymph # Carbon # Seg Neutrophils % Seg Neuts % (Manual) Lymphocytes % (Manual) Lymphocytes # (Manual) PT INR APTT Fibrinogen D-Dimer POC ABG pH POC ABG pCO2 POC ABG pO2 Sodium Potassium Chloride Carbon Dioxide BUN Creatinine Glucose POC Glucose 110 H Lactic Acid Calcium Total Bilirubin Direct Bilirubin AST Ammonia Lactate Dehydrogenase 213 H NT-Pro-B Natriuret Pep Total Protein Albumin Lipase Vitamin B12 1465 H Urine WBC (Auto) Urine Creatinine Ur Creatinine 24 Hour Digoxin Crossmatch 12/13/17 12/13/17 12/13/17 04:00 04:00 05:12 RBC 2.32 L Hgb 7.4 L Hct 20.8 L MCH MCHC 36 H RDW 16.1 H Plt Count 134 L Lymph % (Auto) 13.1 L Carbon % (Auto) 7.9 H Lymph # 0.8 L Carbon # Seg Neutrophils % 76.3 H Seg Neuts % (Manual) Lymphocytes % (Manual) Lymphocytes # (Manual) PT INR APTT Fibrinogen D-Dimer POC ABG pH POC ABG pCO2 POC ABG pO2 Sodium Potassium Chloride Carbon Dioxide 21 L D BUN 48 H Creatinine 4.6 H Glucose 104 H POC Glucose 134 H Lactic Acid Calcium 8.1 L Total Bilirubin 4.70 H Direct Bilirubin AST 43 H Ammonia Lactate Dehydrogenase NT-Pro-B Natriuret Pep Total Protein 5.8 L Albumin 3.1 L Lipase Vitamin B12 Urine WBC (Auto) Urine Creatinine Ur Creatinine 24 Hour Digoxin Crossmatch 12/13/17 12/13/17 12/13/17 08:45 12:25 14:03 RBC Hgb Hct MCH MCHC RDW Plt Count Lymph % (Auto) Carbon % (Auto) Lymph # Carbon # Seg Neutrophils % Seg Neuts % (Manual) Lymphocytes % (Manual) Lymphocytes # (Manual) PT 20.5 H INR 1.65 H APTT Fibrinogen D-Dimer POC ABG pH POC ABG pCO2 POC ABG pO2 Sodium Potassium Chloride Carbon Dioxide BUN Creatinine Glucose POC Glucose 112 H Lactic Acid 3.70 H* Calcium Total Bilirubin Direct Bilirubin AST Ammonia Lactate Dehydrogenase NT-Pro-B Natriuret Pep Total Protein Albumin Lipase Vitamin B12 Urine WBC (Auto) Urine Creatinine Ur Creatinine 24 Hour Digoxin Crossmatch 12/13/17 12/13/17 12/13/17 14:03 18:52 21:09 RBC Hgb Hct MCH MCHC RDW Plt Count Lymph % (Auto) Carbon % (Auto) Lymph # Carbon # Seg Neutrophils % Seg Neuts % (Manual) Lymphocytes % (Manual) Lymphocytes # (Manual) PT INR APTT Fibrinogen D-Dimer POC ABG pH POC ABG pCO2 POC ABG pO2 Sodium Potassium Chloride Carbon Dioxide BUN Creatinine Glucose POC Glucose 110 H Lactic Acid 4.00 H* Calcium Total Bilirubin Direct Bilirubin AST Ammonia 87.0 H Lactate Dehydrogenase NT-Pro-B Natriuret Pep Total Protein Albumin Lipase Vitamin B12 Urine WBC (Auto) Urine Creatinine Ur Creatinine 24 Hour Digoxin Crossmatch 12/14/17 12/14/17 12/14/17 00:25 03:30 03:30 RBC 2.29 L Hgb 7.3 L Hct 20.7 L MCH MCHC 35 H RDW 16.2 H Plt Count 84 L Lymph % (Auto) 12.8 L Carbon % (Auto) 8.3 H Lymph # 0.6 L Carbon # Seg Neutrophils % 77.2 H Seg Neuts % (Manual) Lymphocytes % (Manual) Lymphocytes # (Manual) PT INR APTT Fibrinogen D-Dimer POC ABG pH POC ABG pCO2 POC ABG pO2 Sodium Potassium Chloride 96.1 L Carbon Dioxide BUN 48 H Creatinine 4.6 H Glucose 125 H POC Glucose 131 H Lactic Acid Calcium 7.9 L Total Bilirubin 4.70 H Direct Bilirubin AST 45 H Ammonia Lactate Dehydrogenase NT-Pro-B Natriuret Pep Total Protein 6.1 L Albumin 3.4 L Lipase Vitamin B12 Urine WBC (Auto) Urine Creatinine Ur Creatinine 24 Hour Digoxin Crossmatch 12/14/17 12/14/17 12/14/17 05:31 12:26 12:55 RBC Hgb Hct MCH MCHC RDW Plt Count Lymph % (Auto) Carbon % (Auto) Lymph # Carbon # Seg Neutrophils % Seg Neuts % (Manual) Lymphocytes % (Manual) Lymphocytes # (Manual) PT INR APTT Fibrinogen D-Dimer POC ABG pH POC ABG pCO2 POC ABG pO2 Sodium Potassium Chloride Carbon Dioxide BUN Creatinine Glucose POC Glucose 125 H 117 H Lactic Acid 3.40 H* Calcium Total Bilirubin Direct Bilirubin AST Ammonia Lactate Dehydrogenase NT-Pro-B Natriuret Pep Total Protein Albumin Lipase Vitamin B12 Urine WBC (Auto) Urine Creatinine Ur Creatinine 24 Hour Digoxin Crossmatch 12/14/17 12/14/17 12/14/17 15:26 17:26 18:07 RBC Hgb Hct MCH MCHC RDW Plt Count Lymph % (Auto) Carbon % (Auto) Lymph # Carbon # Seg Neutrophils % Seg Neuts % (Manual) Lymphocytes % (Manual) Lymphocytes # (Manual) PT INR APTT Fibrinogen D-Dimer POC ABG pH POC ABG pCO2 POC ABG pO2 Sodium Potassium Chloride Carbon Dioxide BUN Creatinine Glucose POC Glucose 143 H Lactic Acid 4.00 H* 3.90 H* Calcium Total Bilirubin Direct Bilirubin AST Ammonia Lactate Dehydrogenase NT-Pro-B Natriuret Pep Total Protein Albumin Lipase Vitamin B12 Urine WBC (Auto) Urine Creatinine Ur Creatinine 24 Hour Digoxin Crossmatch 12/14/17 12/15/17 12/15/17 Unknown 00:08 04:51 RBC 2.27 L Hgb 7.3 L Hct 20.7 L MCH MCHC 35 H RDW 16.1 H Plt Count 92 L Lymph % (Auto) 12.5 L Carbon % (Auto) 10.4 H Lymph # 0.6 L Carbon # Seg Neutrophils % 74.7 H Seg Neuts % (Manual) Lymphocytes % (Manual) Lymphocytes # (Manual) PT INR APTT Fibrinogen D-Dimer POC ABG pH POC ABG pCO2 POC ABG pO2 Sodium Potassium Chloride Carbon Dioxide BUN Creatinine Glucose POC Glucose 124 H Lactic Acid Calcium Total Bilirubin Direct Bilirubin AST Ammonia Lactate Dehydrogenase NT-Pro-B Natriuret Pep Total Protein Albumin Lipase Vitamin B12 Urine WBC (Auto) Urine Creatinine 122.5 H Ur Creatinine 24 Hour 0.3 L Digoxin Crossmatch 12/15/17 12/15/17 12/15/17 04:51 04:51 05:56 RBC Hgb Hct MCH MCHC RDW Plt Count Lymph % (Auto) Carbon % (Auto) Lymph # Carbon # Seg Neutrophils % Seg Neuts % (Manual) Lymphocytes % (Manual) Lymphocytes # (Manual) PT INR APTT Fibrinogen D-Dimer POC ABG pH POC ABG pCO2 POC ABG pO2 Sodium Potassium 3.5 L Chloride 92.6 L Carbon Dioxide BUN 50 H Creatinine 4.8 H Glucose 141 H POC Glucose 143 H Lactic Acid Calcium 7.9 L Total Bilirubin 3.60 H Direct Bilirubin AST 44 H Ammonia 24.0 L Lactate Dehydrogenase NT-Pro-B Natriuret Pep Total Protein 6.1 L Albumin 3.8 L Lipase Vitamin B12 Urine WBC (Auto) Urine Creatinine Ur Creatinine 24 Hour Digoxin Crossmatch 12/15/17 12/15/17 12/16/17 12:17 23:10 07:04 RBC Hgb Hct MCH MCHC RDW Plt Count Lymph % (Auto) Carbon % (Auto) Lymph # Carbon # Seg Neutrophils % Seg Neuts % (Manual) Lymphocytes % (Manual) Lymphocytes # (Manual) PT INR APTT Fibrinogen D-Dimer POC ABG pH POC ABG pCO2 POC ABG pO2 Sodium Potassium Chloride Carbon Dioxide BUN Creatinine Glucose POC Glucose 127 H 157 H 147 H Lactic Acid Calcium Total Bilirubin Direct Bilirubin AST Ammonia Lactate Dehydrogenase NT-Pro-B Natriuret Pep Total Protein Albumin Lipase Vitamin B12 Urine WBC (Auto) Urine Creatinine Ur Creatinine 24 Hour Digoxin Crossmatch 12/16/17 12/16/17 12/16/17 11:35 12:37 12:37 RBC 2.21 L Hgb 6.9 L Hct 20.2 L MCH MCHC RDW 16.2 H Plt Count 50 L Lymph % (Auto) Carbon % (Auto) 9.7 H Lymph # 0.7 L Carbon # Seg Neutrophils % 73.1 H Seg Neuts % (Manual) Lymphocytes % (Manual) Lymphocytes # (Manual) PT INR APTT Fibrinogen D-Dimer POC ABG pH POC ABG pCO2 POC ABG pO2 Sodium Potassium Chloride 88.2 L Carbon Dioxide BUN 52 H Creatinine 5.5 H Glucose 107 H POC Glucose 134 H Lactic Acid Calcium 7.8 L Total Bilirubin 2.60 H Direct Bilirubin AST 49 H Ammonia Lactate Dehydrogenase NT-Pro-B Natriuret Pep Total Protein Albumin 3.6 L Lipase Vitamin B12 Urine WBC (Auto) Urine Creatinine Ur Creatinine 24 Hour Digoxin Crossmatch 12/16/17 12/16/17 12/16/17 18:06 20:45 23:34 RBC Hgb Hct MCH MCHC RDW Plt Count Lymph % (Auto) Carbon % (Auto) Lymph # Carbon # Seg Neutrophils % Seg Neuts % (Manual) Lymphocytes % (Manual) Lymphocytes # (Manual) PT INR APTT Fibrinogen D-Dimer POC ABG pH POC ABG pCO2 POC ABG pO2 Sodium Potassium Chloride Carbon Dioxide BUN Creatinine Glucose POC Glucose 133 H 139 H Lactic Acid Calcium Total Bilirubin Direct Bilirubin AST Ammonia Lactate Dehydrogenase NT-Pro-B Natriuret Pep Total Protein Albumin Lipase Vitamin B12 Urine WBC (Auto) Urine Creatinine Ur Creatinine 24 Hour Digoxin Crossmatch See Detail 12/17/17 12/17/17 12/17/17 05:27 05:27 06:11 RBC 2.10 L Hgb 6.6 L Hct 19.2 L* MCH MCHC 35 H RDW 16.5 H Plt Count 65 L Lymph % (Auto) 12.6 L Carbon % (Auto) 9.6 H Lymph # 0.7 L Carbon # Seg Neutrophils % 75.8 H Seg Neuts % (Manual) Lymphocytes % (Manual) Lymphocytes # (Manual) PT INR APTT Fibrinogen D-Dimer POC ABG pH POC ABG pCO2 POC ABG pO2 Sodium 135 L Potassium 3.4 L Chloride 84.9 L Carbon Dioxide 33 H BUN 53 H Creatinine 5.9 H Glucose POC Glucose 110 H Lactic Acid Calcium 7.7 L Total Bilirubin 2.70 H Direct Bilirubin AST 50 H Ammonia Lactate Dehydrogenase NT-Pro-B Natriuret Pep Total Protein 6.2 L Albumin 3.7 L Lipase Vitamin B12 Urine WBC (Auto) Urine Creatinine Ur Creatinine 24 Hour Digoxin Crossmatch 12/17/17 12/18/17 12/18/17 09:34 00:05 05:21 RBC 3.35 L Hgb 10.3 L D Hct 30.4 L D MCH MCHC RDW 16.2 H Plt Count 57 L Lymph % (Auto) 8.0 L Carbon % (Auto) 10.9 H Lymph # 0.6 L Carbon # Seg Neutrophils % 80.2 H Seg Neuts % (Manual) Lymphocytes % (Manual) Lymphocytes # (Manual) PT 23.9 H INR 1.99 H APTT Fibrinogen D-Dimer POC ABG pH POC ABG pCO2 POC ABG pO2 Sodium Potassium Chloride Carbon Dioxide BUN Creatinine Glucose POC Glucose 132 H Lactic Acid Calcium Total Bilirubin Direct Bilirubin AST Ammonia Lactate Dehydrogenase NT-Pro-B Natriuret Pep Total Protein Albumin Lipase Vitamin B12 Urine WBC (Auto) Urine Creatinine Ur Creatinine 24 Hour Digoxin Crossmatch 12/18/17 12/18/17 12/18/17 05:21 06:16 11:11 RBC Hgb Hct MCH MCHC RDW Plt Count Lymph % (Auto) Carbon % (Auto) Lymph # Carbon # Seg Neutrophils % Seg Neuts % (Manual) Lymphocytes % (Manual) Lymphocytes # (Manual) PT 34.7 H INR 3.17 H APTT Fibrinogen D-Dimer POC ABG pH POC ABG pCO2 POC ABG pO2 Sodium Potassium 3.5 L Chloride 87.1 L Carbon Dioxide BUN 35 H Creatinine 4.3 H Glucose 110 H POC Glucose 116 H Lactic Acid Calcium 8.1 L Total Bilirubin 5.10 H Direct Bilirubin AST 56 H Ammonia Lactate Dehydrogenase NT-Pro-B Natriuret Pep Total Protein Albumin Lipase Vitamin B12 Urine WBC (Auto) Urine Creatinine Ur Creatinine 24 Hour Digoxin Crossmatch 12/18/17 12/18/17 12/18/17 13:10 17:52 22:04 RBC Hgb Hct MCH MCHC RDW Plt Count Lymph % (Auto) Carbon % (Auto) Lymph # Carbon # Seg Neutrophils % Seg Neuts % (Manual) Lymphocytes % (Manual) Lymphocytes # (Manual) PT 25.9 H INR 2.20 H APTT Fibrinogen D-Dimer POC ABG pH POC ABG pCO2 POC ABG pO2 Sodium Potassium Chloride Carbon Dioxide BUN Creatinine Glucose POC Glucose 114 H 108 H Lactic Acid Calcium Total Bilirubin Direct Bilirubin AST Ammonia Lactate Dehydrogenase NT-Pro-B Natriuret Pep Total Protein Albumin Lipase Vitamin B12 Urine WBC (Auto) Urine Creatinine Ur Creatinine 24 Hour Digoxin Crossmatch 12/19/17 12/19/17 12/19/17 05:55 05:55 10:20 RBC 2.85 L Hgb 9.1 L Hct 25.7 L MCH MCHC 35 H RDW 16.4 H Plt Count 61 L Lymph % (Auto) Carbon % (Auto) Lymph # Carbon # Seg Neutrophils % Seg Neuts % (Manual) Lymphocytes % (Manual) Lymphocytes # (Manual) PT INR APTT Fibrinogen D-Dimer POC ABG pH POC ABG pCO2 POC ABG pO2 Sodium Potassium Chloride 94.5 L Carbon Dioxide BUN 27 H Creatinine 3.6 H Glucose POC Glucose 131 H Lactic Acid Calcium 8.2 L Total Bilirubin Direct Bilirubin AST Ammonia Lactate Dehydrogenase NT-Pro-B Natriuret Pep Total Protein Albumin Lipase Vitamin B12 Urine WBC (Auto) Urine Creatinine Ur Creatinine 24 Hour Digoxin Crossmatch 12/19/17 12/21/17 12/21/17 11:46 05:26 05:26 RBC 2.60 L Hgb 8.4 L Hct 23.9 L MCH MCHC 35 H RDW 16.2 H Plt Count 57 L Lymph % (Auto) 12.4 L Carbon % (Auto) 10.7 H Lymph # Carbon # 1.0 H Seg Neutrophils % 74.8 H Seg Neuts % (Manual) Lymphocytes % (Manual) Lymphocytes # (Manual) PT 26.2 H INR 2.23 H APTT Fibrinogen D-Dimer POC ABG pH POC ABG pCO2 POC ABG pO2 Sodium Potassium Chloride Carbon Dioxide BUN Creatinine Glucose POC Glucose Lactic Acid Calcium Total Bilirubin Direct Bilirubin AST Ammonia Lactate Dehydrogenase NT-Pro-B Natriuret Pep Total Protein Albumin Lipase Vitamin B12 Urine WBC (Auto) Urine Creatinine Ur Creatinine 24 Hour Digoxin 0.4 L Crossmatch 12/21/17 12/23/17 12/24/17 09:40 08:15 04:51 RBC 1.80 L Hgb 5.9 L* Hct 17.0 L* D MCH 33 H MCHC 35 H RDW 16.5 H Plt Count 53 L Lymph % (Auto) Carbon % (Auto) Lymph # Carbon # Seg Neutrophils % Seg Neuts % (Manual) Lymphocytes % (Manual) Lymphocytes # (Manual) PT 26.4 H 27.9 H INR 2.26 H 2.42 H APTT Fibrinogen D-Dimer POC ABG pH POC ABG pCO2 POC ABG pO2 Sodium Potassium Chloride Carbon Dioxide BUN Creatinine Glucose POC Glucose Lactic Acid Calcium Total Bilirubin Direct Bilirubin AST Ammonia Lactate Dehydrogenase NT-Pro-B Natriuret Pep Total Protein Albumin Lipase Vitamin B12 Urine WBC (Auto) Urine Creatinine Ur Creatinine 24 Hour Digoxin Crossmatch 12/24/17 12/24/17 12/24/17 04:51 06:25 08:20 RBC Hgb Hct MCH MCHC RDW Plt Count Lymph % (Auto) Carbon % (Auto) Lymph # Carbon # Seg Neutrophils % Seg Neuts % (Manual) Lymphocytes % (Manual) Lymphocytes # (Manual) PT 40.8 H INR 3.87 H APTT Fibrinogen D-Dimer POC ABG pH POC ABG pCO2 POC ABG pO2 Sodium Potassium 3.5 L Chloride Carbon Dioxide BUN 21 H Creatinine 4.4 H Glucose POC Glucose Lactic Acid Calcium 8.1 L Total Bilirubin Direct Bilirubin AST Ammonia Lactate Dehydrogenase NT-Pro-B Natriuret Pep Total Protein Albumin Lipase Vitamin B12 Urine WBC (Auto) Urine Creatinine Ur Creatinine 24 Hour Digoxin Crossmatch See Detail Allied health notes reviewed: RT
--- NOTE | 2017-12-24 10:49 | Progress Note ---
Assessment and Plan Impression: * Oliguric CARMEN secondary to ATN vs HRS --s/p permcath placement 12/17/17 and initiation of dialysis * Sepsis * Severe anemia secondary to ABL * Rectal bleeding * Cirrhosis w/ esophageal varices * Hyperbilirubinemia * Pyuria * Metabolic acidosis, resolved * Hyperkalemia, resolved Plan: * Patient remains oliguric w/o evidence of recovery. Continue dialysis - MWF schedule * Note plans for thoracentesis * Empiric abx for SBP and UTI * Transfusion pRBC per primary team * Consultants' recommendations reviewed * Medical management of electrolytes * Avoid potential nephrotoxic agents * Dose medications for renal function * Okay to d/c nash catheter * Outpatient HD MWF at [facility] arranged Subjective Date of service: 12/24/17 Principal diagnosis: CARMEN on CKD; Acute Encephalopathy; Sepsis Syndrome; Anemia Interval history: in bed, confused, no acute events Objective - Exam Narrative Exam: General: well-nourished, well-developed, no acute distress Head: Normocephalic, atraumatic Eyes: normal sclera ENT: Mucous membranes are pale and dry Neck: No neck stiffness, no cervical adenopathy Respiratory: Breath sounds equal bilaterally, no wheezing, rales, or rhonchi Cardio: S1 and S2 present, no murmurs, rubs, gallops, capillary refill is delayed Abdomen: Normoactive bowel sounds, soft abdomen, generalized tenderness to palpation present, no rigidity, no guarding or rebound tenderness Chest WALL/Back: No tenderness to palpation of the chest wall, no CVA tenderness with percussion Musc: No pitting edema Skin: No rash Neuro: no facial drooping, normal speech Psych: Normal affect - Vital Signs Vital signs: Vital Signs - 12hr 12/23/17 12/23/17 12/24/17 23:00 23:54 00:00 Temperature Pulse Rate 58 L 60 62 Respiratory 18 Rate Blood Pressure 87/40 Blood Pressure 97/47 [Left] O2 Sat by Pulse 96 94 Oximetry 12/24/17 12/24/17 12/24/17 04:19 04:20 04:21 Temperature 98.7 F Pulse Rate 60 59 L Respiratory 18 Rate Blood Pressure 91/46 94/50 Blood Pressure [Left] O2 Sat by Pulse 97 98 Oximetry 12/24/17 07:41 Temperature 98.6 F Pulse Rate 66 Respiratory Rate Blood Pressure Blood Pressure 80/43 [Left] O2 Sat by Pulse Oximetry - Lab 12/24/17 04:51 12/24/17 04:51 Most recent lab results Calcium 8.1 mg/dL (8.4-10.2) L 12/24/17 04:51 Magnesium 1.80 mg/dL (1.7-2.3) 12/12/17 03:41 Urine Creatinine 122.5 mg/dL (0.1-20.0) H 12/14/17 Unknown
--- NOTE | 2017-12-24 10:52 | Gastroenterology Progress Note ---
Assessment and Plan 1.anemia 2.hx of cirrhosis with esophageal varices -HGB 5.9, INR 3.87- transfusion of FFP and PRBCs pending -continue to monitor H/H and transfuse as needed -hold blood thinning medications -no active signs of bleeding overnight or this am per pt and nursing -stool occult pending -recommended and discussed need for EGD with patient, however his is currently refusing (Dr. mendiola notified) -if any signs of bleeding would start Octreotide -continue PPI and supportive care -keep NPO, in case there is a need for an emergent EGD -will follow Subjective Date of service: 12/24/17 Principal diagnosis: liver disease, anemia Interval history: GI has been re-consulted on this patient for a decrease in H/H. Patient denies any active signs of bleeding. No abd pain or N/V. BM x 1 yesterday with no blood per nursing. Objective - Constitutional Vitals: Temp Pulse Resp BP Pulse Ox 98.8 F 59 L 16 81/43 98 12/24/17 10:30 12/24/17 10:30 12/24/17 10:30 12/24/17 10:30 12/24/17 04:21 General appearance: no acute distress - Respiratory Respiratory: bilateral: diminished - Cardiovascular Rhythm: regular Heart Sounds: Present: S1 & S2 - Gastrointestinal General gastrointestinal: Present: soft, non-tender, non-distended, normal bowel sounds - Neurologic Neurological: alert and oriented x3 - Labs CBC & Chem 7: 12/24/17 04:51 12/24/17 04:51 Labs: Laboratory Results - last 24 hr 12/16/17 12/24/17 12/24/17 20:45 04:51 04:51 WBC 8.3 RBC 1.80 L Hgb 5.9 L* Hct 17.0 L* D MCV 94 MCH 33 H MCHC 35 H RDW 16.5 H Plt Count 53 L PT INR Sodium 142 Potassium 3.5 L Chloride 100.6 Carbon Dioxide 25 Anion Gap 20 BUN 21 H Creatinine 4.4 H Estimated GFR 16 BUN/Creatinine Ratio 5 Glucose 86 Calcium 8.1 L Blood Type Antibody Screen Crossmatch See Detail 12/24/17 12/24/17 06:25 08:20 WBC RBC Hgb Hct MCV MCH MCHC RDW Plt Count PT 40.8 H INR 3.87 H Sodium Potassium Chloride Carbon Dioxide Anion Gap BUN Creatinine Estimated GFR BUN/Creatinine Ratio Glucose Calcium Blood Type A NEGATIVE Antibody Screen Negative Crossmatch See Detail
--- NOTE | 2017-12-24 12:29 | Progress Note ---
Assessment and Plan Anemia s/p transfusion of PRBCs Thromocytopenia, chronic Chronic renal failure initiated on dialysis Hypotension -on midodrine therapy Hx of Cirrhosis with bleeding esophageal varices requiring TIPS 11/2016 Paroxysmal Atrial flutter seen on telemetry normal TSH on beta blockers for suppression Left pleural effusion Echocardiogram shows mild cardiomyopathy with left ventricular ejection fraction 45-50%. There is mild to moderate tricuspid regurgitation, pulmonary artery pressure is 31, and there is a left pleural effusion. Recommendations: Patient is considered not a candidate for anticoagulation given underlying liver cirrhosis. Continue beta alejo therapy for suppression of paroxysmal atrial fibrillation. Conservative cardiac management. Subjective Date of service: 12/24/17 Principal diagnosis: liver disease, anemia Interval history: Stable sinus rhythm on telemetry. Objective Vital Signs Temp Pulse Resp BP BP Pulse Ox 12/24/17 11:01 98.1 F 62 16 91/48 12/24/17 10:50 98.1 F 62 18 91/48 12/24/17 10:30 98.8 F 59 L 16 81/43 12/24/17 07:41 98.6 F 66 80/43 12/24/17 04:21 59 L 94/50 98 12/24/17 04:20 60 97 12/24/17 04:19 98.7 F 18 91/46 12/24/17 00:00 62 18 97/47 94 12/23/17 23:54 60 87/40 96 12/23/17 23:00 58 L 12/23/17 20:35 98.0 F 62 20 92/52 100 12/23/17 16:28 100.1 F H 62 18 110/57 100 12/23/17 13:05 98/56 - Physical Examination General: No Apparent Distress HEENT: Positive: PERRL Cardiac: Positive: Reg Rate and Rhythm Extremities: Absent: edema - Labs and Meds Coagulation 12/24/17 Range/Units 08:20 PT 40.8 H (12.2-14.9) Sec. INR 3.87 H (0.87-1.13) CBC 12/24/17 Range/Units 04:51 WBC 8.3 (4.5-11.0) K/mm3 RBC 1.80 L (3.65-5.03) M/mm3 Hgb 5.9 L* (11.8-15.2) gm/dl Hct 17.0 L* D (35.5-45.6) % Plt Count 53 L (140-440) K/mm3 Comprehensive Metabolic Panel 12/24/17 Range/Units 04:51 Sodium 142 (137-145) mmol/L Potassium 3.5 L (3.6-5.0) mmol/L Chloride 100.6 (98-107) mmol/L Carbon Dioxide 25 (22-30) mmol/L BUN 21 H (9-20) mg/dL Creatinine 4.4 H (0.8-1.5) mg/dL Glucose 86 (75-100) mg/dL Calcium 8.1 L (8.4-10.2) mg/dL - Allied health notes Allied health notes reviewed: RT
--- NOTE | 2017-12-24 19:38 | Progress Note ---
Assessment and Plan - Patient Problems (1) Acute hepatic encephalopathy Current Visit: Yes Status: Acute Plan to address problem: see orders. continue with lactulose, recheck ammonia level. continue same. supportive. (2) Anemia Current Visit: Yes Status: Acute Plan to address problem: see orders. Replacement transfusion, if hgb less than 7.0 same as above. see notes above. same as above, stable. see notes above. (3) Renal failure Current Visit: Yes Status: Acute Plan to address problem: follow renal service. same as above. (4) Liver failure Current Visit: Yes Status: Acute Plan to address problem: Hepato-renal syndrome, continue with HD. Subjective Date of service: 12/24/17 Principal diagnosis: liver disease, anemia Interval history: Patient seen, restingm labs/notes reviewed. agree with management so far.labs showing consumptive coagulopathy. Patient seen, resting in bed, records/labs reviewed.PLT dropped some.Still no active bleeding. Patient seen/examined, records/labs / notes reviewed, hgb low at 6.9, will rec replacement transfusion,with HD tomorrow if planned to proceed with HD. Patient seen, resting in bed, labs/records reviewed, Hgb still low, transfusion written for today. Patient seen, resting in bed, labs reviewed, plt 57,000, rectal bleeding resolved, will continue to monitor patient/labs with you, and intervene with replacement transfusion, when needed. Patient seen, resting in bed, NAD, records reviewed. Patient seen, resting in bed, labs/records reviewed, no new issues, the latest plt fair, no any sign of bleeding. Patient seen, resting in bed, records reviewed, PLT 57,000, no bleeding. Patient seen, resting in bed, labs reviewed, hgb dropped drastically, due to rectal bleed.He is s/p blood transfusion. he is expected to continue to drop his hgb, as long as he continues to bleed. Will re check labs in am. Thrombocytopenia at above 20,000. will continue to monitor. Objective - Constitutional Vitals: Vital Signs - 12hr 12/24/17 12/24/17 12/24/17 07:41 10:30 10:50 Temperature 98.6 F 98.8 F 98.1 F Pulse Rate 66 59 L 62 Respiratory 16 18 Rate Blood Pressure 81/43 91/48 Blood Pressure 80/43 [Left] O2 Sat by Pulse Oximetry 12/24/17 12/24/17 12/24/17 11:01 15:20 15:30 Temperature 98.1 F Pulse Rate 62 58 L 58 L Respiratory 16 Rate Blood Pressure 91/48 89/46 89/46 Blood Pressure [Left] O2 Sat by Pulse Oximetry 12/24/17 12/24/17 12/24/17 15:45 16:00 16:15 Temperature Pulse Rate 58 L 58 L 58 L Respiratory Rate Blood Pressure 96/52 80/45 89/46 Blood Pressure [Left] O2 Sat by Pulse Oximetry 12/24/17 12/24/17 12/24/17 16:30 16:45 17:00 Temperature 98.1 F 98.0 F Pulse Rate 59 L 58 L 57 L Respiratory 16 16 Rate Blood Pressure 78/38 90/49 90/46 Blood Pressure [Left] O2 Sat by Pulse 98 98 Oximetry 12/24/17 12/24/17 12/24/17 17:11 17:15 17:30 Temperature 98.2 F 98.2 F Pulse Rate 58 L 55 L 65 Respiratory 16 16 Rate Blood Pressure 90/49 89/47 89/46 Blood Pressure [Left] O2 Sat by Pulse 98 98 Oximetry 12/24/17 12/24/17 12/24/17 17:45 18:00 18:15 Temperature Pulse Rate 56 L 55 L 57 L Respiratory Rate Blood Pressure 87/43 91/42 94/49 Blood Pressure [Left] O2 Sat by Pulse Oximetry 12/24/17 18:36 Temperature 98.0 F Pulse Rate 57 L Respiratory 16 Rate Blood Pressure 98/53 Blood Pressure [Left] O2 Sat by Pulse Oximetry General appearance: Present: mild distress - EENT Eyes: PERRL, EOM intact ENT: hearing intact, clear oral mucosa Ears: bilateral: normal - Neck Neck: supple, normal ROM - Respiratory Respiratory: bilateral: diminished - Breasts Breasts: deferred - Cardiovascular Rhythm: regular Heart Sounds: Present: S1 & S2. Absent: gallop, rub Extremities: pulses intact, No edema, normal color, Full ROM - Gastrointestinal General gastrointestinal: Present: soft, non-tender, non-distended, normal bowel sounds Rectal Exam: deferred - Genitourinary Male genitourinary: deferred - Integumentary Integumentary: clear, warm, dry - Musculoskeletal Musculoskeletal: 1, strength equal bilaterally - Neurologic Neurologic: moves all extremities - Psychiatric Psychiatric: appropriate mood/affect, intact judgment & insight - Labs CBC & Chem 7: 12/24/17 04:51 12/24/17 04:51 Labs: Abnormal lab results 12/16/17 12/24/17 12/24/17 Range/Units 20:45 04:51 04:51 RBC 1.80 L (3.65-5.03) M/mm3 Hgb 5.9 L* (11.8-15.2) gm/dl Hct 17.0 L* D (35.5-45.6) % MCH 33 H (28-32) pg MCHC 35 H (32-34) % RDW 16.5 H (13.2-15.2) % Plt Count 53 L (140-440) K/mm3 PT (12.2-14.9) Sec. INR (0.87-1.13) Potassium 3.5 L (3.6-5.0) mmol/L BUN 21 H (9-20) mg/dL Creatinine 4.4 H (0.8-1.5) mg/dL Calcium 8.1 L (8.4-10.2) mg/dL Crossmatch See Detail 12/24/17 12/24/17 Range/Units 06:25 08:20 RBC (3.65-5.03) M/mm3 Hgb (11.8-15.2) gm/dl Hct (35.5-45.6) % MCH (28-32) pg MCHC (32-34) % RDW (13.2-15.2) % Plt Count (140-440) K/mm3 PT 40.8 H (12.2-14.9) Sec. INR 3.87 H (0.87-1.13) Potassium (3.6-5.0) mmol/L BUN (9-20) mg/dL Creatinine (0.8-1.5) mg/dL Calcium (8.4-10.2) mg/dL Crossmatch See Detail
[2017-12-24 19:48] LABS: Hematocrit 20.4 % (35.5-45.6); Hemoglobin 7.3 gm/dl (11.8-15.2)
[2017-12-24 20:24] LABS: INR 1.73 (0.87-1.13)
[2017-12-25 05:58] LABS: Basophils % (Auto) 0.7 % (0.0-1.8); Eosinophils # (Auto) 0.1 K/mm3 (0.0-0.4); Eosinophils % (Auto) 1.6 % (0.0-4.3); Hematocrit 21.3 % (35.5-45.6); Hemoglobin 7.4 gm/dl (11.8-15.2); Lymphocytes # (Auto) 0.9 K/mm3 (1.2-5.4); Mean Corpuscular HGB Conc 35 % (32-34); Mean Corpuscular Hemoglobin 32 pg (28-32); Mean Corpuscular Volume 92 fl (84-94); Monocytes # (Auto) 0.6 K/mm3 (0.0-0.8); Monocytes % (Auto) 10.8 % (0.0-7.3); Red Blood Count 2.31 M/mm3 (3.65-5.03); Red Cell Distribution Width 15.9 % (13.2-15.2)
[2017-12-25 06:01] LABS: Platelet Count 39 K/mm3 (140-440)
[2017-12-25 06:10] LABS: INR 1.81 (0.87-1.13)
[2017-12-25 06:23] LABS: Calcium 8.1 mg/dL (8.4-10.2)
--- NOTE | 2017-12-25 09:19 | Progress Note ---
Assessment and Plan Impression: * Oliguric CARMEN secondary to ATN vs HRS --s/p permcath placement 12/17/17 and initiation of dialysis * Sepsis * Severe anemia secondary to ABL * Rectal bleeding * Cirrhosis w/ esophageal varices * Hyperbilirubinemia * Pyuria * Metabolic acidosis, resolved * Hyperkalemia, resolved Plan: * Patient remains oliguric w/o evidence of recovery. Continue dialysis - MWF schedule * Empiric abx for SBP and UTI * Transfusion pRBC per primary team * Consultants' recommendations reviewed * Medical management of electrolytes * Avoid potential nephrotoxic agents * Dose medications for renal function * Okay to d/c nash catheter * Outpatient HD MWF at [facility] arranged Subjective Date of service: 12/25/17 Principal diagnosis: liver disease, anemia Interval history: in bed, confused, no acute events Objective - Exam Narrative Exam: General: well-nourished, well-developed, no acute distress Head: Normocephalic, atraumatic Eyes: normal sclera ENT: Mucous membranes are pale and dry Neck: No neck stiffness, no cervical adenopathy Respiratory: Breath sounds equal bilaterally, no wheezing, rales, or rhonchi Cardio: S1 and S2 present, no murmurs, rubs, gallops, capillary refill is delayed Abdomen: Normoactive bowel sounds, soft abdomen, generalized tenderness to palpation present, no rigidity, no guarding or rebound tenderness Chest WALL/Back: No tenderness to palpation of the chest wall, no CVA tenderness with percussion Musc: No pitting edema Skin: No rash Neuro: no facial drooping, normal speech Psych: Normal affect - Vital Signs Vital signs: Vital Signs - 12hr 12/24/17 12/25/17 12/25/17 23:57 01:00 01:01 Temperature 97.6 F Pulse Rate 57 L 57 L Respiratory 18 Rate Blood Pressure 70/35 87/50 O2 Sat by Pulse 100 100 Oximetry 12/25/17 12/25/17 04:16 07:44 Temperature 98.5 F 98.2 F Pulse Rate 55 L 58 L Respiratory 17 16 Rate Blood Pressure 89/51 94/49 O2 Sat by Pulse 100 98 Oximetry - Lab 12/25/17 05:27 12/25/17 05:27 Most recent lab results Calcium 8.1 mg/dL (8.4-10.2) L 12/25/17 05:27 Magnesium 1.80 mg/dL (1.7-2.3) 12/12/17 03:41 Urine Creatinine 122.5 mg/dL (0.1-20.0) H 12/14/17 Unknown
--- NOTE | 2017-12-25 09:35 | Progress Note ---
Assessment and Plan Assessment and plan: --Acute blood loss anemia. Variceal bleeding Received 7 units of PRBC --NSVT, resolved ; continue beta blockers, Lopressor --Septic/hypovolemic shock. On midodrine, --Sepsis;cultures negative --Coagulopathy cirrhosis of liver ;INR 2.2. Will give 2 Units FFP, Vit K --Rectal bleeding, GI following --Cirrhosis with esophageal varices. GI following. Patient without signs of active bleeding. If any signs of bleeding we will start octreotide. GI planning EGD tomorrow --Toxic metabolic/hepatic encephalopathy. Hyperammonemia on admission. Resolved Seen more alert and awake, Sporn to simple questions --Acute on chronic kidney disease. Etiology likely secondary to acute kidney injury from ATN/sepsis/hypotension. On hemodialysis,Outpatient dialysis per case management --Hepatorenal syndrome; on HD, nephrology following --Bilateral pleural effusion right greater than left. Records Management Associate recommends giving FFP and possible thoracentesis on Sunday Coagulopathy from chronic liver disease. Vit K given but INR still high. Give 2 Units FFP, more Vit K Discussed with patient and at bedside today 12/24 [facility] patient was scheduled to have an evaluation in [place] on 12/30/2017 for possible liver transplant. Will call women's apparel salesperson in [place] and discuss case. History Interval history: Patient seen and examined medical records reviewed Patient feels slightly better eating breakfast Alert and awake responds to simple questions confused at times Vital signs reviewed Hospitalist Physical - Constitutional Vitals: Temp Pulse Resp BP Pulse Ox 98.2 F 58 L 16 94/49 98 12/25/17 07:44 12/25/17 07:44 12/25/17 07:44 12/25/17 07:44 12/25/17 07:44 General appearance: Present: mild distress, cachectic, disheveled - EENT Eyes: Present: PERRL, EOM intact - Neck Neck: Present: supple, normal ROM - Respiratory Respiratory effort: normal Respiratory: negative: rales, rhonchi, wheezing - Cardiovascular Rhythm: regular Heart Sounds: Present: S1 & S2 - Extremities Extremities: no ischemia, No edema - Abdominal General gastrointestinal: soft, non-tender, non-distended, normal bowel sounds - Integumentary Integumentary: Present: clear, warm - Psychiatric Psychiatric: appropriate mood/affect - Neurologic Neurologic: moves all extremities Results - Labs CBC & Chem 7: 12/25/17 05:27 12/25/17 05:27 Labs: Laboratory Last Values WBC 6.0 K/mm3 (4.5-11.0) 12/25/17 05:27 RBC 2.31 M/mm3 (3.65-5.03) L 12/25/17 05:27 Hgb 7.4 gm/dl (11.8-15.2) L 12/25/17 05:27 Hct 21.3 % (35.5-45.6) L 12/25/17 05:27 MCV 92 fl (84-94) 12/25/17 05:27 MCH 32 pg (28-32) 12/25/17 05:27 MCHC 35 % (32-34) H 12/25/17 05:27 RDW 15.9 % (13.2-15.2) H 12/25/17 05:27 Plt Count 39 K/mm3 (140-440) L 12/25/17 05:27 Lymph % (Auto) 15.0 % (13.4-35.0) 12/25/17 05:27 Pine % (Auto) 10.8 % (0.0-7.3) H 12/25/17 05:27 Eos % (Auto) 1.6 % (0.0-4.3) 12/25/17 05:27 Baso % (Auto) 0.7 % (0.0-1.8) 12/25/17 05:27 Lymph # 0.9 K/mm3 (1.2-5.4) L 12/25/17 05:27 Pine # 0.6 K/mm3 (0.0-0.8) 12/25/17 05:27 Eos # 0.1 K/mm3 (0.0-0.4) 12/25/17 05:27 Baso # 0.0 K/mm3 (0.0-0.1) 12/25/17 05:27 Add Manual Diff Complete 12/12/17 19:50 Total Counted 100 12/12/17 19:50 Seg Neutrophils % 71.9 % (40.0-70.0) H 12/25/17 05:27 Seg Neuts % (Manual) 87.0 % (40.0-70.0) H 12/12/17 19:50 Band Neutrophils % 0 % 12/12/17 19:50 Lymphocytes % (Manual) 5.0 % (13.4-35.0) L 12/12/17 19:50 Reactive Lymphs % (Man) 0 % 12/12/17 19:50 Monocytes % (Manual) 6.0 % (0.0-7.3) 12/12/17 19:50 Eosinophils % (Manual) 2.0 % (0.0-4.3) 12/12/17 19:50 Basophils % (Manual) 0 % (0.0-1.8) 12/12/17 19:50 Metamyelocytes % 0 % 12/12/17 19:50 Myelocytes % 0 % 12/12/17 19:50 Promyelocytes % 0 % 12/12/17 19:50 Blast Cells % 0 % 12/12/17 19:50 Nucleated RBC % Not Reportable 12/12/17 19:50 Seg Neutrophils # 4.3 K/mm3 (1.8-7.7) 12/25/17 05:27 Seg Neutrophils # Man 4.9 K/mm3 (1.8-7.7) 12/12/17 19:50 Band Neutrophils # 0.0 K/mm3 12/12/17 19:50 Lymphocytes # (Manual) 0.3 K/mm3 (1.2-5.4) L 12/12/17 19:50 Abs React Lymphs (Man) 0.0 K/mm3 12/12/17 19:50 Monocytes # (Manual) 0.3 K/mm3 (0.0-0.8) 12/12/17 19:50 Eosinophils # (Manual) 0.1 K/mm3 (0.0-0.4) 12/12/17 19:50 Basophils # (Manual) 0.0 K/mm3 (0.0-0.1) 12/12/17 19:50 Metamyelocytes # 0.0 K/mm3 12/12/17 19:50 Myelocytes # 0.0 K/mm3 12/12/17 19:50 Promyelocytes # 0.0 K/mm3 12/12/17 19:50 Blast Cells # 0.0 K/mm3 12/12/17 19:50 WBC Morphology Not Reportable 12/12/17 19:50 Hypersegmented Neuts Not Reportable 12/12/17 19:50 Hyposegmented Neuts Not Reportable 12/12/17 19:50 Hypogranular Neuts Not Reportable 12/12/17 19:50 Smudge Cells Not Reportable 12/12/17 19:50 Toxic Granulation Not Reportable 12/12/17 19:50 Toxic Vacuolation Not Reportable 12/12/17 19:50 Dohle Bodies Not Reportable 12/12/17 19:50 Pelger-Huet Anomaly Not Reportable 12/12/17 19:50 Eriberto Rods Not Reportable 12/12/17 19:50 Platelet Estimate Appears decreased 12/12/17 19:50 Clumped Platelets Not Reportable 12/12/17 19:50 Plt Clumps, EDTA Not Reportable 12/12/17 19:50 Large Platelets 1+ 12/12/17 19:50 Giant Platelets Not Reportable 12/12/17 19:50 Platelet Satelliting Not Reportable 12/12/17 19:50 Plt Morphology Comment Not Reportable 12/12/17 19:50 RBC Morphology Not Reportable 12/12/17 19:50 Dimorphic RBCs Not Reportable 12/12/17 19:50 Polychromasia Not Reportable 12/12/17 19:50 Hypochromasia 1+ 12/12/17 19:50 Poikilocytosis Not Reportable 12/12/17 19:50 Anisocytosis Not Reportable 12/12/17 19:50 Microcytosis Not Reportable 12/12/17 19:50 Macrocytosis Not Reportable 12/12/17 19:50 Spherocytes Not Reportable 12/12/17 19:50 Pappenheimer Bodies Not Reportable 12/12/17 19:50 Sickle Cells Not Reportable 12/12/17 19:50 Target Cells Not Reportable 12/12/17 19:50 Tear Drop Cells Not Reportable 12/12/17 19:50 Ovalocytes Not Reportable 12/12/17 19:50 Helmet Cells Not Reportable 12/12/17 19:50 D[place] Bodies Not Reportable 12/12/17 19:50 [place] Rings Not Reportable 12/12/17 19:50 [place] Cells 1+ 12/12/17 19:50 Bite Cells Not Reportable 12/12/17 19:50 Crenated Cell Not Reportable 12/12/17 19:50 Elliptocytes Not Reportable 12/12/17 19:50 Acanthocytes (Spur) 1+ 12/12/17 19:50 Rouleaux Not Reportable 12/12/17 19:50 Hemoglobin C Crystals Not Reportable 12/12/17 19:50 Schistocytes Not Reportable 12/12/17 19:50 Malaria parasites Not Reportable 12/12/17 19:50 ESR 18 mm/Hr (0-20) 12/12/17 19:50 Lyndon Bodies Not Reportable 12/12/17 19:50 Hem Pathologist Commnt No 12/12/17 19:50 PT 22.1 Sec. (12.2-14.9) H 12/25/17 05:27 INR 1.81 (0.87-1.13) H 12/25/17 05:27 APTT 41.5 Sec. (24.2-36.6) H 12/12/17 19:50 Fibrinogen 128 mg/dl (211-480) L 12/12/17 19:50 D-Dimer 1215.06 ng/mlDDU (0-234) H 12/12/17 19:50 Factor VIII:C Activity 178 % (50-180) 12/12/17 20:30 POC ABG pH 7.452 (7.35-7.45) H 12/12/17 09:13 POC ABG pCO2 22.2 (35-45) L 12/12/17 09:13 POC ABG pO2 75 (80-105) L 12/12/17 09:13 POC ABG HCO3 15.5 12/12/17 09:13 POC ABG Total CO2 16 12/12/17 09:13 POC ABG O2 Sat 96 12/12/17 09:13 POC ABG Base Excess -8 12/12/17 09:13 FiO2 21 % 12/12/17 09:13 Sodium 139 mmol/L (137-145) 12/25/17 05:27 Potassium 3.5 mmol/L (3.6-5.0) L 12/25/17 05:27 Chloride 96.7 mmol/L (98-107) L 12/25/17 05:27 Carbon Dioxide 28 mmol/L (22-30) 12/25/17 05:27 Anion Gap 18 mmol/L 12/25/17 05:27 BUN 13 mg/dL (9-20) 12/25/17 05:27 Creatinine 3.2 mg/dL (0.8-1.5) H 12/25/17 05:27 Estimated GFR 24 ml/min 12/25/17 05:27 BUN/Creatinine Ratio 4 % 12/25/17 05:27 Glucose 76 mg/dL (75-100) 12/25/17 05:27 POC Glucose 74 (70-105) 12/25/17 06:19 Lactic Acid 3.90 mmol/L (0.7-2.0) H* 12/14/17 17:26 Calcium 8.1 mg/dL (8.4-10.2) L 12/25/17 05:27 Magnesium 1.80 mg/dL (1.7-2.3) 12/12/17 03:41 Total Bilirubin 5.10 mg/dL (0.1-1.2) H 12/18/17 05:21 Direct Bilirubin 1.6 mg/dL (0-0.2) H 12/12/17 19:50 Indirect Bilirubin 2.5 mg/dL 12/12/17 19:50 AST 56 units/L (5-40) H 12/18/17 05:21 ALT 20 units/L (7-56) 12/18/17 05:21 Alkaline Phosphatase 66 units/L (35-129) 12/18/17 05:21 Ammonia 53.0 umol/L (25-60) 12/18/17 13:10 Lactate Dehydrogenase 213 units/L (91-180) H 12/12/17 19:50 Total Creatine Kinase 64 units/L (55-170) 12/10/17 23:14 C-Reactive Protein 0.30 mg/dL (0.00-1.30) 12/13/17 14:03 NT-Pro-B Natriuret Pep 9558 pg/mL (0-900) H 12/10/17 23:14 Total Protein 6.9 g/dL (6.3-8.2) 12/18/17 05:21 Albumin 4.0 g/dL (3.9-5) 12/18/17 05:21 Albumin/Globulin Ratio 1.4 % 12/18/17 05:21 Lipase 7 units/L (13-60) L 12/10/17 23:14 Vitamin B12 1465 pg/mL (211-911) H 12/12/17 19:50 Folate 14.04 ng/mL (7.3-26.0) 12/12/17 19:50 TSH 2.560 mlU/mL (0.270-4.200) 12/16/17 12:37 Total Cortisol 8.6 mcg/dL () 12/16/17 12:37 Urine Color Yellow (Yellow) 12/10/17 23:05 Urine Turbidity Clear (Clear) 12/10/17 23:05 Urine pH 5.0 (5.0-7.0) 12/10/17 23:05 Ur Specific [place] 1.013 (1.003-1.030) 12/10/17 23:05 Urine Protein <15 mg/dl mg/dL (Negative) 12/10/17 23:05 Urine Glucose (UA) Neg mg/dL (Negative) 12/10/17 23:05 Urine Ketones Neg mg/dL (Negative) 12/10/17 23:05 Urine Blood Neg (Negative) 12/10/17 23:05 Urine Nitrite Neg (Negative) 12/10/17 23:05 Ur Reducing Substances Not Reportable 12/10/17 23:05 Urine Bilirubin Neg (Negative) 12/10/17 23:05 Urine Ictotest Not Reportable 12/10/17 23:05 Urine Urobilinogen < 2.0 mg/dL (<2.0) 12/10/17 23:05 Ur Leukocyte Esterase Sm (Negative) 12/10/17 23:05 Urine WBC (Auto) 10.0 /HPF (0.0-6.0) H 12/10/17 23:05 Urine RBC (Auto) 4.0 /HPF (0.0-6.0) 12/10/17 23:05 U Epithel Cells (Auto) < 1.0 /HPF (0-13.0) 12/10/17 23:05 Urine Mucus Few /HPF 12/10/17 23:05 Urine Total Volume 250 12/14/17 Unknown Urine Creatinine 122.5 mg/dL (0.1-20.0) H 12/14/17 Unknown Ur Creatinine 24 Hour 0.3 (0.8-2.8) L 12/14/17 Unknown Digoxin 0.4 ng/mL (0.9-2.0) L 12/21/17 05:26 Hepatitis A IgM Ab Non-reactive (NonReactive) 12/12/17 19:50 Hep Bs Antigen Non-reactive (Negative) 12/12/17 19:50 Hep B Core IgM Ab Non-reactive (NonReactive) 12/12/17 19:50 Hepatitis C Antibody Non-reactive (NonReactive) 12/12/17 19:50 Miscellaneous Test Flexitest 1 12/12/17 06:42 Blood Type A NEGATIVE 12/24/17 06:25 Antibody Screen Negative 12/24/17 06:25 Direct Antiglob Test Negative 12/12/17 20:41 JOANNE, Poly Interpret Negative 12/12/17 20:41 Crossmatch See Detail 12/24/17 06:25
--- NOTE | 2017-12-25 09:45 | Progress Note ---
Assessment and Plan Anemia s/p transfusion of PRBCs Thromocytopenia, chronic Chronic renal failure initiated on dialysis Hypotension -on midodrine therapy Hx of Cirrhosis with bleeding esophageal varices requiring TIPS 11/2016 Paroxysmal Atrial flutter seen on telemetry normal TSH on beta blockers for suppression Left pleural effusion Echocardiogram shows mild cardiomyopathy with left ventricular ejection fraction 45-50%. There is mild to moderate tricuspid regurgitation, pulmonary artery pressure is 31, and there is a left pleural effusion. Recommendations: Patient is considered not a candidate for anticoagulation given underlying liver cirrhosis. Continue beta alejo therapy for suppression of paroxysmal atrial fibrillation. Conservative cardiac management. Subjective Date of service: 12/25/17 Principal diagnosis: liver disease, anemia Interval history: Patient has denies palpitations. Stable sinus rhythm on telemetry. Objective Vital Signs Temp Pulse Resp BP Pulse Ox 12/25/17 07:44 98.2 F 58 L 16 94/49 98 12/25/17 04:16 98.5 F 55 L 17 89/51 100 12/25/17 01:01 57 L 100 12/25/17 01:00 57 L 87/50 100 12/24/17 23:57 97.6 F 18 70/35 12/24/17 20:57 54 L 12/24/17 20:06 98.6 F 16 94/53 12/24/17 18:36 98.0 F 57 L 16 98/53 12/24/17 18:15 57 L 94/49 12/24/17 18:00 55 L 91/42 12/24/17 17:45 56 L 87/43 12/24/17 17:30 98.2 F 65 16 89/46 98 12/24/17 17:15 55 L 89/47 12/24/17 17:11 98.2 F 58 L 16 90/49 98 12/24/17 17:00 57 L 90/46 12/24/17 16:45 98.0 F 58 L 16 90/49 98 12/24/17 16:30 98.1 F 59 L 16 78/38 98 12/24/17 16:15 58 L 89/46 12/24/17 16:00 58 L 80/45 12/24/17 15:45 58 L 96/52 12/24/17 15:30 58 L 89/46 12/24/17 15:20 58 L 89/46 12/24/17 12:16 98.6 F 60 16 83/47 100 12/24/17 12:15 62 83/47 95 12/24/17 11:10 95/51 12/24/17 11:01 98.1 F 62 16 91/48 12/24/17 10:54 91/48 12/24/17 10:50 98.1 F 62 18 91/48 12/24/17 10:30 98.8 F 59 L 16 81/43 - Physical Examination General: No Apparent Distress HEENT: Positive: PERRL Cardiac: Positive: Reg Rate and Rhythm Lungs: Positive: Decreased Breath Sounds Neuro: Positive: Weakness - Labs and Meds Coagulation 12/24/17 12/25/17 Range/Units 19:21 05:27 PT 21.3 H 22.1 H (12.2-14.9) Sec. INR 1.73 H 1.81 H (0.87-1.13) CBC 12/24/17 12/25/17 Range/Units 19:21 05:27 WBC 6.0 (4.5-11.0) K/mm3 RBC 2.31 L (3.65-5.03) M/mm3 Hgb 7.3 L 7.4 L (11.8-15.2) gm/dl Hct 20.4 L 21.3 L (35.5-45.6) % Plt Count 39 L (140-440) K/mm3 Lymph # 0.9 L (1.2-5.4) K/mm3 Ocean # 0.6 (0.0-0.8) K/mm3 Eos # 0.1 (0.0-0.4) K/mm3 Baso # 0.0 (0.0-0.1) K/mm3 Comprehensive Metabolic Panel 12/25/17 Range/Units 05:27 Sodium 139 (137-145) mmol/L Potassium 3.5 L (3.6-5.0) mmol/L Chloride 96.7 L (98-107) mmol/L Carbon Dioxide 28 (22-30) mmol/L BUN 13 (9-20) mg/dL Creatinine 3.2 H (0.8-1.5) mg/dL Glucose 76 (75-100) mg/dL Calcium 8.1 L (8.4-10.2) mg/dL - Allied health notes Allied health notes reviewed: RT
[2017-12-25] MEDS: PROAMATINE PO SCH ×3 (11:07→21:01)
[2017-12-25] MEDS: XIFAXAN PO SCH ×2 (11:08→22:50)
[2017-12-25] MEDS: LOPRESSOR PO SCH ×2 (11:08→22:50)
[2017-12-25] MEDS: PROTONIX FEEDTUBE SCH (11:08)
[2017-12-25] MEDS: CEPHULAC PO SCH ×2 (11:08→22:50)
--- NOTE | 2017-12-25 13:46 | Progress Note ---
Assessment and Plan Sepsis, possibly SBP Acute encephalopathy Severe anemia Lactic acidosis, multifactorial Cirrhosis with esophageal varices Rectal bleeding Coagulopathy Metabolic acidosis, multifactorial Respiratory alkalosis Nonoliguric CARMEN secondary to prerenal azotemia due to hypoperfusion ATN vs HRS Moderate protein calorie malnutrition - follow repeat CXR; if there has been significant improvement in effusions will hold on thoracentesis - HD/UF per nephrology prescription ( should also reduce pulmonary volume overload) - continue conservative volume management at this point now off vasopressors - continue prn H&H; Transfuse PRBC's for Hb < 7.0 (or as per snack bar cashier) - prn analgesia - 2D ECHO with EF 40-45%; no overt pulm HTN - s/p antibiotic course for sepsis - continue Aspiration precautions - enteral nutrition as tolerated (s/p small bowel feeding tube) - continue chronic home medications, including rifaximin and midodrine - Avoid nephrotoxics and adjust all medications for GFR - GI evaluation ongoing; octreotide if signs of active bleeding; continue lactulose but frequency reduced to bid - continue therapeutic PPI - paracentesis per GI recs - Follow up cultures (NGTD) - SCDs for VTE prophylaxis in view of GIB and coagulopathy - Supportive transfusions - Nutrition consult placed - PT/OT consult placed - continue to monitor closely on telemetry ..... 25' Subjective Date of service: 12/25/17 Principal diagnosis: CARMEN on CKD; Acute Encephalopathy; Sepsis Syndrome; Anemia Interval history: Patient is seen today for: CARMEN on CKD; Acute Encephalopathy; Sepsis Syndrome; Anemia Seen and examined at bedside; 24hour events reviewed; nursing and respiratory care staff consulted; no adverse overnight events reported to me; resting in bed ; nods head no to pain question; remains on 2L NC; No N/V/F/C today Objective Vital Signs - 12hr 12/25/17 12/25/17 12/25/17 04:16 07:42 07:44 Temperature 98.5 F 98.2 F Pulse Rate 55 L 63 58 L Respiratory 17 16 Rate Blood Pressure 89/51 94/49 O2 Sat by Pulse 100 98 Oximetry Constitutional: lethargic, other (chronically ill looking elderly AAM, normocephalic and atraumatic) Eyes: non-icteric ENT: oropharynx moist, other (mallampati 2) Neck: supple, no lymphadenopathy, no JVD, other (no thyromegaly) Effort: mildly labored Ascultation: Bilateral: diminished breath sounds (bases), rhonchi (scant) Percussion: Bilateral: dull (bases) Cardiovascular: regular rate and rhythm, other (S1,S2, no murmurms, gallops or rubs) Gastrointestinal: normoactive bowel sounds, soft, non-tender, other (distended) Integumentary: rash Extremities: no cyanosis, no edema, pulses normal, no ischemia or petechiae, cool Neurologic: non-focal exam, pupils equal and round, motor strength normal and ( weak), other (somnolent) Psychiatric: other (somnolent; flat affect) CBC and BMP: 12/26/17 05:59 12/26/17 05:59 ABG, PT/INR, D-dimer: ABG POC ABG pH 7.452 (7.35-7.45) H 12/12/17 09:13 POC ABG pCO2 22.2 (35-45) L 12/12/17 09:13 POC ABG pO2 75 (80-105) L 12/12/17 09:13 POC ABG HCO3 15.5 12/12/17 09:13 POC ABG Total CO2 16 12/12/17 09:13 POC ABG O2 Sat 96 12/12/17 09:13 PT/INR, D-dimer PT 22.1 Sec. (12.2-14.9) H 12/25/17 05:27 INR 1.81 (0.87-1.13) H 12/25/17 05:27 D-Dimer 1215.06 ng/mlDDU (0-234) H 12/12/17 19:50 Abnormal lab findings: Abnormal Labs 12/10/17 12/10/17 12/10/17 13:14 13:14 23:05 RBC 2.31 L Hgb 7.3 L Hct 21.5 L MCH MCHC RDW 17.7 H Plt Count 61 L Lymph % (Auto) [place] % (Auto) Lymph # [place]an # Seg Neutrophils % Seg Neuts % (Manual) 81.0 H Lymphocytes % (Manual) 11.0 L Lymphocytes # (Manual) 0.6 L PT INR APTT Fibrinogen D-Dimer POC ABG pH POC ABG pCO2 POC ABG pO2 Sodium 136 L Potassium 5.2 H Chloride Carbon Dioxide 15 L BUN 47 H Creatinine 5.2 H Glucose 127 H POC Glucose Lactic Acid Calcium Total Bilirubin 3.50 H Direct Bilirubin AST 71 H Ammonia Lactate Dehydrogenase NT-Pro-B Natriuret Pep Total Protein Albumin 2.6 L Lipase Vitamin B12 Urine WBC (Auto) 10.0 H Urine Creatinine Ur Creatinine 24 Hour Digoxin Crossmatch 12/10/17 12/10/17 12/10/17 23:14 23:14 23:14 RBC Hgb Hct MCH MCHC RDW Plt Count Lymph % (Auto) [place]an % (Auto) Lymph # [place] # Seg Neutrophils % Seg Neuts % (Manual) Lymphocytes % (Manual) Lymphocytes # (Manual) PT INR APTT Fibrinogen D-Dimer POC ABG pH POC ABG pCO2 POC ABG pO2 Sodium Potassium Chloride Carbon Dioxide BUN Creatinine Glucose POC Glucose Lactic Acid 2.40 H* Calcium Total Bilirubin Direct Bilirubin AST Ammonia 134.0 H Lactate Dehydrogenase NT-Pro-B Natriuret Pep 9558 H Total Protein Albumin Lipase Vitamin B12 Urine WBC (Auto) Urine Creatinine Ur Creatinine 24 Hour Digoxin Crossmatch 12/10/17 12/11/17 12/11/17 23:14 00:29 03:33 RBC Hgb Hct MCH MCHC RDW Plt Count Lymph % (Auto) [place] % (Auto) Lymph # [place] # Seg Neutrophils % Seg Neuts % (Manual) Lymphocytes % (Manual) Lymphocytes # (Manual) PT INR APTT Fibrinogen D-Dimer POC ABG pH POC ABG pCO2 POC ABG pO2 Sodium Potassium Chloride Carbon Dioxide BUN Creatinine Glucose POC Glucose Lactic Acid 2.80 H* 3.00 H* Calcium Total Bilirubin Direct Bilirubin AST Ammonia Lactate Dehydrogenase NT-Pro-B Natriuret Pep Total Protein Albumin Lipase 7 L Vitamin B12 Urine WBC (Auto) Urine Creatinine Ur Creatinine 24 Hour Digoxin Crossmatch 12/11/17 12/11/17 12/11/17 04:08 04:34 04:34 RBC Hgb Hct MCH MCHC RDW Plt Count Lymph % (Auto) [place] % (Auto) Lymph # [place] # Seg Neutrophils % Seg Neuts % (Manual) Lymphocytes % (Manual) Lymphocytes # (Manual) PT 19.1 H INR 1.51 H APTT 45.7 H Fibrinogen D-Dimer POC ABG pH POC ABG pCO2 POC ABG pO2 Sodium Potassium Chloride Carbon Dioxide BUN Creatinine Glucose POC Glucose 113 H Lactic Acid 3.10 H* Calcium Total Bilirubin Direct Bilirubin AST Ammonia Lactate Dehydrogenase NT-Pro-B Natriuret Pep Total Protein Albumin Lipase Vitamin B12 Urine WBC (Auto) Urine Creatinine Ur Creatinine 24 Hour Digoxin Crossmatch 12/11/17 12/11/17 12/11/17 06:46 07:26 09:42 RBC Hgb Hct MCH MCHC RDW Plt Count Lymph % (Auto) [place] % (Auto) Lymph # [place] # Seg Neutrophils % Seg Neuts % (Manual) Lymphocytes % (Manual) Lymphocytes # (Manual) PT INR APTT Fibrinogen D-Dimer POC ABG pH POC ABG pCO2 POC ABG pO2 Sodium Potassium Chloride Carbon Dioxide BUN Creatinine Glucose POC Glucose Lactic Acid 2.70 H* 2.80 H* 2.90 H* Calcium Total Bilirubin Direct Bilirubin AST Ammonia Lactate Dehydrogenase NT-Pro-B Natriuret Pep Total Protein Albumin Lipase Vitamin B12 Urine WBC (Auto) Urine Creatinine Ur Creatinine 24 Hour Digoxin Crossmatch 12/11/17 12/11/17 12/11/17 13:12 14:06 23:14 RBC Hgb Hct MCH MCHC RDW Plt Count Lymph % (Auto) [place] % (Auto) Lymph # [place] # Seg Neutrophils % Seg Neuts % (Manual) Lymphocytes % (Manual) Lymphocytes # (Manual) PT INR APTT Fibrinogen D-Dimer POC ABG pH POC ABG pCO2 POC ABG pO2 Sodium Potassium Chloride Carbon Dioxide BUN Creatinine Glucose POC Glucose Lactic Acid 3.10 H* 3.10 H* 3.70 H* Calcium Total Bilirubin Direct Bilirubin AST Ammonia Lactate Dehydrogenase NT-Pro-B Natriuret Pep Total Protein Albumin Lipase Vitamin B12 Urine WBC (Auto) Urine Creatinine Ur Creatinine 24 Hour Digoxin Crossmatch 12/11/17 12/12/17 12/12/17 23:23 03:41 03:41 RBC 2.17 L Hgb 7.0 L Hct 19.9 L* MCH 33 H MCHC 35 H RDW 17.7 H Plt Count 62 L Lymph % (Auto) [place] % (Auto) Lymph # [place] # Seg Neutrophils % Seg Neuts % (Manual) 91.0 H Lymphocytes % (Manual) 3.0 L Lymphocytes # (Manual) 0.2 L PT INR APTT Fibrinogen D-Dimer POC ABG pH POC ABG pCO2 POC ABG pO2 Sodium Potassium 5.4 H Chloride Carbon Dioxide 12 L BUN 47 H Creatinine 4.5 H Glucose 103 H POC Glucose Lactic Acid Calcium 8.0 L Total Bilirubin 3.60 H Direct Bilirubin AST 58 H Ammonia Lactate Dehydrogenase NT-Pro-B Natriuret Pep Total Protein 5.9 L Albumin 2.5 L Lipase Vitamin B12 Urine WBC (Auto) Urine Creatinine Ur Creatinine 24 Hour Digoxin Crossmatch See Detail 12/12/17 12/12/17 12/12/17 07:00 09:13 17:55 RBC 2.06 L Hgb 6.6 L Hct 18.6 L* MCH MCHC 36 H RDW 17.8 H Plt Count 77 L Lymph % (Auto) [place] % (Auto) Lymph # [place] # Seg Neutrophils % Seg Neuts % (Manual) Lymphocytes % (Manual) Lymphocytes # (Manual) PT INR APTT Fibrinogen D-Dimer POC ABG pH 7.452 H POC ABG pCO2 22.2 L POC ABG pO2 75 L Sodium Potassium Chloride Carbon Dioxide BUN Creatinine Glucose POC Glucose 119 H Lactic Acid Calcium Total Bilirubin Direct Bilirubin AST Ammonia Lactate Dehydrogenase NT-Pro-B Natriuret Pep Total Protein Albumin Lipase Vitamin B12 Urine WBC (Auto) Urine Creatinine Ur Creatinine 24 Hour Digoxin Crossmatch 12/12/17 12/12/17 12/12/17 19:50 19:50 19:50 RBC 2.40 L Hgb 7.8 L Hct 21.3 L MCH 33 H MCHC 37 H RDW 16.1 H Plt Count 99 L Lymph % (Auto) [place] % (Auto) Lymph # [place] # Seg Neutrophils % Seg Neuts % (Manual) 87.0 H Lymphocytes % (Manual) 5.0 L Lymphocytes # (Manual) 0.3 L PT 21.9 H INR 1.79 H APTT 41.5 H Fibrinogen 128 L D-Dimer 1215.06 H POC ABG pH POC ABG pCO2 POC ABG pO2 Sodium Potassium Chloride Carbon Dioxide BUN Creatinine Glucose POC Glucose Lactic Acid Calcium Total Bilirubin 4.10 H Direct Bilirubin 1.6 H AST Ammonia Lactate Dehydrogenase NT-Pro-B Natriuret Pep Total Protein Albumin Lipase Vitamin B12 Urine WBC (Auto) Urine Creatinine Ur Creatinine 24 Hour Digoxin Crossmatch 12/12/17 12/12/17 12/12/17 19:50 19:50 23:46 RBC Hgb Hct MCH MCHC RDW Plt Count Lymph % (Auto) [place] % (Auto) Lymph # [place] # Seg Neutrophils % Seg Neuts % (Manual) Lymphocytes % (Manual) Lymphocytes # (Manual) PT INR APTT Fibrinogen D-Dimer POC ABG pH POC ABG pCO2 POC ABG pO2 Sodium Potassium Chloride Carbon Dioxide BUN Creatinine Glucose POC Glucose 110 H Lactic Acid Calcium Total Bilirubin Direct Bilirubin AST Ammonia Lactate Dehydrogenase 213 H NT-Pro-B Natriuret Pep Total Protein Albumin Lipase Vitamin B12 1465 H Urine WBC (Auto) Urine Creatinine Ur Creatinine 24 Hour Digoxin Crossmatch 12/13/17 12/13/17 12/13/17 04:00 04:00 05:12 RBC 2.32 L Hgb 7.4 L Hct 20.8 L MCH MCHC 36 H RDW 16.1 H Plt Count 134 L Lymph % (Auto) 13.1 L [place] % (Auto) 7.9 H Lymph # 0.8 L [place] # Seg Neutrophils % 76.3 H Seg Neuts % (Manual) Lymphocytes % (Manual) Lymphocytes # (Manual) PT INR APTT Fibrinogen D-Dimer POC ABG pH POC ABG pCO2 POC ABG pO2 Sodium Potassium Chloride Carbon Dioxide 21 L D BUN 48 H Creatinine 4.6 H Glucose 104 H POC Glucose 134 H Lactic Acid Calcium 8.1 L Total Bilirubin 4.70 H Direct Bilirubin AST 43 H Ammonia Lactate Dehydrogenase NT-Pro-B Natriuret Pep Total Protein 5.8 L Albumin 3.1 L Lipase Vitamin B12 Urine WBC (Auto) Urine Creatinine Ur Creatinine 24 Hour Digoxin Crossmatch 12/13/17 12/13/17 12/13/17 08:45 12:25 14:03 RBC Hgb Hct MCH MCHC RDW Plt Count Lymph % (Auto) [place] % (Auto) Lymph # [place] # Seg Neutrophils % Seg Neuts % (Manual) Lymphocytes % (Manual) Lymphocytes # (Manual) PT 20.5 H INR 1.65 H APTT Fibrinogen D-Dimer POC ABG pH POC ABG pCO2 POC ABG pO2 Sodium Potassium Chloride Carbon Dioxide BUN Creatinine Glucose POC Glucose 112 H Lactic Acid 3.70 H* Calcium Total Bilirubin Direct Bilirubin AST Ammonia Lactate Dehydrogenase NT-Pro-B Natriuret Pep Total Protein Albumin Lipase Vitamin B12 Urine WBC (Auto) Urine Creatinine Ur Creatinine 24 Hour Digoxin Crossmatch 12/13/17 12/13/17 12/13/17 14:03 18:52 21:09 RBC Hgb Hct MCH MCHC RDW Plt Count Lymph % (Auto) [place] % (Auto) Lymph # [place] # Seg Neutrophils % Seg Neuts % (Manual) Lymphocytes % (Manual) Lymphocytes # (Manual) PT INR APTT Fibrinogen D-Dimer POC ABG pH POC ABG pCO2 POC ABG pO2 Sodium Potassium Chloride Carbon Dioxide BUN Creatinine Glucose POC Glucose 110 H Lactic Acid 4.00 H* Calcium Total Bilirubin Direct Bilirubin AST Ammonia 87.0 H Lactate Dehydrogenase NT-Pro-B Natriuret Pep Total Protein Albumin Lipase Vitamin B12 Urine WBC (Auto) Urine Creatinine Ur Creatinine 24 Hour Digoxin Crossmatch 12/14/17 12/14/17 12/14/17 00:25 03:30 03:30 RBC 2.29 L Hgb 7.3 L Hct 20.7 L MCH MCHC 35 H RDW 16.2 H Plt Count 84 L Lymph % (Auto) 12.8 L [place] % (Auto) 8.3 H Lymph # 0.6 L [place] # Seg Neutrophils % 77.2 H Seg Neuts % (Manual) Lymphocytes % (Manual) Lymphocytes # (Manual) PT INR APTT Fibrinogen D-Dimer POC ABG pH POC ABG pCO2 POC ABG pO2 Sodium Potassium Chloride 96.1 L Carbon Dioxide BUN 48 H Creatinine 4.6 H Glucose 125 H POC Glucose 131 H Lactic Acid Calcium 7.9 L Total Bilirubin 4.70 H Direct Bilirubin AST 45 H Ammonia Lactate Dehydrogenase NT-Pro-B Natriuret Pep Total Protein 6.1 L Albumin 3.4 L Lipase Vitamin B12 Urine WBC (Auto) Urine Creatinine Ur Creatinine 24 Hour Digoxin Crossmatch 12/14/17 12/14/17 12/14/17 05:31 12:26 12:55 RBC Hgb Hct MCH MCHC RDW Plt Count Lymph % (Auto) [place] % (Auto) Lymph # [place] # Seg Neutrophils % Seg Neuts % (Manual) Lymphocytes % (Manual) Lymphocytes # (Manual) PT INR APTT Fibrinogen D-Dimer POC ABG pH POC ABG pCO2 POC ABG pO2 Sodium Potassium Chloride Carbon Dioxide BUN Creatinine Glucose POC Glucose 125 H 117 H Lactic Acid 3.40 H* Calcium Total Bilirubin Direct Bilirubin AST Ammonia Lactate Dehydrogenase NT-Pro-B Natriuret Pep Total Protein Albumin Lipase Vitamin B12 Urine WBC (Auto) Urine Creatinine Ur Creatinine 24 Hour Digoxin Crossmatch 12/14/17 12/14/17 12/14/17 15:26 17:26 18:07 RBC Hgb Hct MCH MCHC RDW Plt Count Lymph % (Auto) [place] % (Auto) Lymph # [place] # Seg Neutrophils % Seg Neuts % (Manual) Lymphocytes % (Manual) Lymphocytes # (Manual) PT INR APTT Fibrinogen D-Dimer POC ABG pH POC ABG pCO2 POC ABG pO2 Sodium Potassium Chloride Carbon Dioxide BUN Creatinine Glucose POC Glucose 143 H Lactic Acid 4.00 H* 3.90 H* Calcium Total Bilirubin Direct Bilirubin AST Ammonia Lactate Dehydrogenase NT-Pro-B Natriuret Pep Total Protein Albumin Lipase Vitamin B12 Urine WBC (Auto) Urine Creatinine Ur Creatinine 24 Hour Digoxin Crossmatch 12/14/17 12/15/17 12/15/17 Unknown 00:08 04:51 RBC 2.27 L Hgb 7.3 L Hct 20.7 L MCH MCHC 35 H RDW 16.1 H Plt Count 92 L Lymph % (Auto) 12.5 L [place] % (Auto) 10.4 H Lymph # 0.6 L [place] # Seg Neutrophils % 74.7 H Seg Neuts % (Manual) Lymphocytes % (Manual) Lymphocytes # (Manual) PT INR APTT Fibrinogen D-Dimer POC ABG pH POC ABG pCO2 POC ABG pO2 Sodium Potassium Chloride Carbon Dioxide BUN Creatinine Glucose POC Glucose 124 H Lactic Acid Calcium Total Bilirubin Direct Bilirubin AST Ammonia Lactate Dehydrogenase NT-Pro-B Natriuret Pep Total Protein Albumin Lipase Vitamin B12 Urine WBC (Auto) Urine Creatinine 122.5 H Ur Creatinine 24 Hour 0.3 L Digoxin Crossmatch 12/15/17 12/15/17 12/15/17 04:51 04:51 05:56 RBC Hgb Hct MCH MCHC RDW Plt Count Lymph % (Auto) [place] % (Auto) Lymph # [place] # Seg Neutrophils % Seg Neuts % (Manual) Lymphocytes % (Manual) Lymphocytes # (Manual) PT INR APTT Fibrinogen D-Dimer POC ABG pH POC ABG pCO2 POC ABG pO2 Sodium Potassium 3.5 L Chloride 92.6 L Carbon Dioxide BUN 50 H Creatinine 4.8 H Glucose 141 H POC Glucose 143 H Lactic Acid Calcium 7.9 L Total Bilirubin 3.60 H Direct Bilirubin AST 44 H Ammonia 24.0 L Lactate Dehydrogenase NT-Pro-B Natriuret Pep Total Protein 6.1 L Albumin 3.8 L Lipase Vitamin B12 Urine WBC (Auto) Urine Creatinine Ur Creatinine 24 Hour Digoxin Crossmatch 12/15/17 12/15/17 12/16/17 12:17 23:10 07:04 RBC Hgb Hct MCH MCHC RDW Plt Count Lymph % (Auto) [place] % (Auto) Lymph # [place] # Seg Neutrophils % Seg Neuts % (Manual) Lymphocytes % (Manual) Lymphocytes # (Manual) PT INR APTT Fibrinogen D-Dimer POC ABG pH POC ABG pCO2 POC ABG pO2 Sodium Potassium Chloride Carbon Dioxide BUN Creatinine Glucose POC Glucose 127 H 157 H 147 H Lactic Acid Calcium Total Bilirubin Direct Bilirubin AST Ammonia Lactate Dehydrogenase NT-Pro-B Natriuret Pep Total Protein Albumin Lipase Vitamin B12 Urine WBC (Auto) Urine Creatinine Ur Creatinine 24 Hour Digoxin Crossmatch 12/16/17 12/16/17 12/16/17 11:35 12:37 12:37 RBC 2.21 L Hgb 6.9 L Hct 20.2 L MCH MCHC RDW 16.2 H Plt Count 50 L Lymph % (Auto) [place] % (Auto) 9.7 H Lymph # 0.7 L [place] # Seg Neutrophils % 73.1 H Seg Neuts % (Manual) Lymphocytes % (Manual) Lymphocytes # (Manual) PT INR APTT Fibrinogen D-Dimer POC ABG pH POC ABG pCO2 POC ABG pO2 Sodium Potassium Chloride 88.2 L Carbon Dioxide BUN 52 H Creatinine 5.5 H Glucose 107 H POC Glucose 134 H Lactic Acid Calcium 7.8 L Total Bilirubin 2.60 H Direct Bilirubin AST 49 H Ammonia Lactate Dehydrogenase NT-Pro-B Natriuret Pep Total Protein Albumin 3.6 L Lipase Vitamin B12 Urine WBC (Auto) Urine Creatinine Ur Creatinine 24 Hour Digoxin Crossmatch 12/16/17 12/16/17 12/16/17 18:06 20:45 23:34 RBC Hgb Hct MCH MCHC RDW Plt Count Lymph % (Auto) [place] % (Auto) Lymph # [place] # Seg Neutrophils % Seg Neuts % (Manual) Lymphocytes % (Manual) Lymphocytes # (Manual) PT INR APTT Fibrinogen D-Dimer POC ABG pH POC ABG pCO2 POC ABG pO2 Sodium Potassium Chloride Carbon Dioxide BUN Creatinine Glucose POC Glucose 133 H 139 H Lactic Acid Calcium Total Bilirubin Direct Bilirubin AST Ammonia Lactate Dehydrogenase NT-Pro-B Natriuret Pep Total Protein Albumin Lipase Vitamin B12 Urine WBC (Auto) Urine Creatinine Ur Creatinine 24 Hour Digoxin Crossmatch See Detail 12/17/17 12/17/17 12/17/17 05:27 05:27 06:11 RBC 2.10 L Hgb 6.6 L Hct 19.2 L* MCH MCHC 35 H RDW 16.5 H Plt Count 65 L Lymph % (Auto) 12.6 L [place] % (Auto) 9.6 H Lymph # 0.7 L [place] # Seg Neutrophils % 75.8 H Seg Neuts % (Manual) Lymphocytes % (Manual) Lymphocytes # (Manual) PT INR APTT Fibrinogen D-Dimer POC ABG pH POC ABG pCO2 POC ABG pO2 Sodium 135 L Potassium 3.4 L Chloride 84.9 L Carbon Dioxide 33 H BUN 53 H Creatinine 5.9 H Glucose POC Glucose 110 H Lactic Acid Calcium 7.7 L Total Bilirubin 2.70 H Direct Bilirubin AST 50 H Ammonia Lactate Dehydrogenase NT-Pro-B Natriuret Pep Total Protein 6.2 L Albumin 3.7 L Lipase Vitamin B12 Urine WBC (Auto) Urine Creatinine Ur Creatinine 24 Hour Digoxin Crossmatch 12/17/17 12/18/17 12/18/17 09:34 00:05 05:21 RBC 3.35 L Hgb 10.3 L D Hct 30.4 L D MCH MCHC RDW 16.2 H Plt Count 57 L Lymph % (Auto) 8.0 L [place] % (Auto) 10.9 H Lymph # 0.6 L [place] # Seg Neutrophils % 80.2 H Seg Neuts % (Manual) Lymphocytes % (Manual) Lymphocytes # (Manual) PT 23.9 H INR 1.99 H APTT Fibrinogen D-Dimer POC ABG pH POC ABG pCO2 POC ABG pO2 Sodium Potassium Chloride Carbon Dioxide BUN Creatinine Glucose POC Glucose 132 H Lactic Acid Calcium Total Bilirubin Direct Bilirubin AST Ammonia Lactate Dehydrogenase NT-Pro-B Natriuret Pep Total Protein Albumin Lipase Vitamin B12 Urine WBC (Auto) Urine Creatinine Ur Creatinine 24 Hour Digoxin Crossmatch 12/18/17 12/18/17 12/18/17 05:21 06:16 11:11 RBC Hgb Hct MCH MCHC RDW Plt Count Lymph % (Auto) [place] % (Auto) Lymph # [place] # Seg Neutrophils % Seg Neuts % (Manual) Lymphocytes % (Manual) Lymphocytes # (Manual) PT 34.7 H INR 3.17 H APTT Fibrinogen D-Dimer POC ABG pH POC ABG pCO2 POC ABG pO2 Sodium Potassium 3.5 L Chloride 87.1 L Carbon Dioxide BUN 35 H Creatinine 4.3 H Glucose 110 H POC Glucose 116 H Lactic Acid Calcium 8.1 L Total Bilirubin 5.10 H Direct Bilirubin AST 56 H Ammonia Lactate Dehydrogenase NT-Pro-B Natriuret Pep Total Protein Albumin Lipase Vitamin B12 Urine WBC (Auto) Urine Creatinine Ur Creatinine 24 Hour Digoxin Crossmatch 12/18/17 12/18/17 12/18/17 13:10 17:52 22:04 RBC Hgb Hct MCH MCHC RDW Plt Count Lymph % (Auto) [place] % (Auto) Lymph # [place] # Seg Neutrophils % Seg Neuts % (Manual) Lymphocytes % (Manual) Lymphocytes # (Manual) PT 25.9 H INR 2.20 H APTT Fibrinogen D-Dimer POC ABG pH POC ABG pCO2 POC ABG pO2 Sodium Potassium Chloride Carbon Dioxide BUN Creatinine Glucose POC Glucose 114 H 108 H Lactic Acid Calcium Total Bilirubin Direct Bilirubin AST Ammonia Lactate Dehydrogenase NT-Pro-B Natriuret Pep Total Protein Albumin Lipase Vitamin B12 Urine WBC (Auto) Urine Creatinine Ur Creatinine 24 Hour Digoxin Crossmatch 12/19/17 12/19/17 12/19/17 05:55 05:55 10:20 RBC 2.85 L Hgb 9.1 L Hct 25.7 L MCH MCHC 35 H RDW 16.4 H Plt Count 61 L Lymph % (Auto) [place] % (Auto) Lymph # [place] # Seg Neutrophils % Seg Neuts % (Manual) Lymphocytes % (Manual) Lymphocytes # (Manual) PT INR APTT Fibrinogen D-Dimer POC ABG pH POC ABG pCO2 POC ABG pO2 Sodium Potassium Chloride 94.5 L Carbon Dioxide BUN 27 H Creatinine 3.6 H Glucose POC Glucose 131 H Lactic Acid Calcium 8.2 L Total Bilirubin Direct Bilirubin AST Ammonia Lactate Dehydrogenase NT-Pro-B Natriuret Pep Total Protein Albumin Lipase Vitamin B12 Urine WBC (Auto) Urine Creatinine Ur Creatinine 24 Hour Digoxin Crossmatch 12/19/17 12/21/17 12/21/17 11:46 05:26 05:26 RBC 2.60 L Hgb 8.4 L Hct 23.9 L MCH MCHC 35 H RDW 16.2 H Plt Count 57 L Lymph % (Auto) 12.4 L [place] % (Auto) 10.7 H Lymph # [place] # 1.0 H Seg Neutrophils % 74.8 H Seg Neuts % (Manual) Lymphocytes % (Manual) Lymphocytes # (Manual) PT 26.2 H INR 2.23 H APTT Fibrinogen D-Dimer POC ABG pH POC ABG pCO2 POC ABG pO2 Sodium Potassium Chloride Carbon Dioxide BUN Creatinine Glucose POC Glucose Lactic Acid Calcium Total Bilirubin Direct Bilirubin AST Ammonia Lactate Dehydrogenase NT-Pro-B Natriuret Pep Total Protein Albumin Lipase Vitamin B12 Urine WBC (Auto) Urine Creatinine Ur Creatinine 24 Hour Digoxin 0.4 L Crossmatch 12/21/17 12/23/17 12/24/17 09:40 08:15 04:51 RBC 1.80 L Hgb 5.9 L* Hct 17.0 L* D MCH 33 H MCHC 35 H RDW 16.5 H Plt Count 53 L Lymph % (Auto) [place] % (Auto) Lymph # [place] # Seg Neutrophils % Seg Neuts % (Manual) Lymphocytes % (Manual) Lymphocytes # (Manual) PT 26.4 H 27.9 H INR 2.26 H 2.42 H APTT Fibrinogen D-Dimer POC ABG pH POC ABG pCO2 POC ABG pO2 Sodium Potassium Chloride Carbon Dioxide BUN Creatinine Glucose POC Glucose Lactic Acid Calcium Total Bilirubin Direct Bilirubin AST Ammonia Lactate Dehydrogenase NT-Pro-B Natriuret Pep Total Protein Albumin Lipase Vitamin B12 Urine WBC (Auto) Urine Creatinine Ur Creatinine 24 Hour Digoxin Crossmatch 12/24/17 12/24/17 12/24/17 04:51 06:25 08:20 RBC Hgb Hct MCH MCHC RDW Plt Count Lymph % (Auto) [place] % (Auto) Lymph # [place] # Seg Neutrophils % Seg Neuts % (Manual) Lymphocytes % (Manual) Lymphocytes # (Manual) PT 40.8 H INR 3.87 H APTT Fibrinogen D-Dimer POC ABG pH POC ABG pCO2 POC ABG pO2 Sodium Potassium 3.5 L Chloride Carbon Dioxide BUN 21 H Creatinine 4.4 H Glucose POC Glucose Lactic Acid Calcium 8.1 L Total Bilirubin Direct Bilirubin AST Ammonia Lactate Dehydrogenase NT-Pro-B Natriuret Pep Total Protein Albumin Lipase Vitamin B12 Urine WBC (Auto) Urine Creatinine Ur Creatinine 24 Hour Digoxin Crossmatch See Detail 12/24/17 12/24/17 12/25/17 19:21 19:21 05:27 RBC 2.31 L Hgb 7.3 L 7.4 L Hct 20.4 L 21.3 L MCH MCHC 35 H RDW 15.9 H Plt Count 39 L Lymph % (Auto) [place] % (Auto) 10.8 H Lymph # 0.9 L [place] # Seg Neutrophils % 71.9 H Seg Neuts % (Manual) Lymphocytes % (Manual) Lymphocytes # (Manual) PT 21.3 H INR 1.73 H APTT Fibrinogen D-Dimer POC ABG pH POC ABG pCO2 POC ABG pO2 Sodium Potassium Chloride Carbon Dioxide BUN Creatinine Glucose POC Glucose Lactic Acid Calcium Total Bilirubin Direct Bilirubin AST Ammonia Lactate Dehydrogenase NT-Pro-B Natriuret Pep Total Protein Albumin Lipase Vitamin B12 Urine WBC (Auto) Urine Creatinine Ur Creatinine 24 Hour Digoxin Crossmatch 12/25/17 12/25/17 05:27 05:27 RBC Hgb Hct MCH MCHC RDW Plt Count Lymph % (Auto) [place] % (Auto) Lymph # [place] # Seg Neutrophils % Seg Neuts % (Manual) Lymphocytes % (Manual) Lymphocytes # (Manual) PT 22.1 H INR 1.81 H APTT Fibrinogen D-Dimer POC ABG pH POC ABG pCO2 POC ABG pO2 Sodium Potassium 3.5 L Chloride 96.7 L Carbon Dioxide BUN Creatinine 3.2 H Glucose POC Glucose Lactic Acid Calcium 8.1 L Total Bilirubin Direct Bilirubin AST Ammonia Lactate Dehydrogenase NT-Pro-B Natriuret Pep Total Protein Albumin Lipase Vitamin B12 Urine WBC (Auto) Urine Creatinine Ur Creatinine 24 Hour Digoxin Crossmatch Allied health notes reviewed: RT
--- NOTE | 2017-12-25 15:01 | XRay Report ---
Single view chest: History: Pleural effusion. Findings: Cardiomegaly. Trachea is midline. Large amount of pleural effusion right sided and appears to be loculated. Free fluid in the left pleural cavity. No consolidation. Stable large bore venous catheter. Impression: Large, probably loculated right pleural effusion. Minimal to moderate left pleural effusion. No pneumothorax.
--- NOTE | 2017-12-25 17:57 | Gastroenterology Progress Note ---
Assessment and Plan - Patient Problems (1) Esophageal varices with bleeding Current Visit: Yes Status: Acute Plan to address problem: - EGD for tomorrow; chronic anemia with acute component. No evidence of acute large-volume bleeding. - NPO after Mn, and continue protonix. - Patient will be unable to tolerate anticoagulation long-term. (2) Alcoholic cirrhosis of liver with ascites Current Visit: Yes Status: Acute Plan to address problem: - Continue current supportive care. - Per the , patient to transport to [place] within the week for 2nd opinion liver/kidney transplant via the [facility]. Subjective Date of service: 12/25/17 Principal diagnosis: Cirrhosis, Melena Interval history: The patient denies melena today. He ate like normal without emesis or abdominal pain. Objective - Constitutional Vitals: Temp Pulse Resp BP Pulse Ox 97.9 F 56 L 16 81/48 95 12/25/17 17:12 12/25/17 12:18 12/25/17 17:12 12/25/17 17:12 12/25/17 12:18 General appearance: no acute distress - Respiratory Respiratory effort: normal Respiratory: bilateral: CTA - Cardiovascular Rhythm: regular Heart Sounds: Present: S1 & S2 - Gastrointestinal General gastrointestinal: Present: soft, non-tender, non-distended - Labs CBC & Chem 7: 12/25/17 05:27 12/25/17 05:27 Labs: Laboratory Results - last 24 hr 12/24/17 12/24/17 12/24/17 12:24 19:21 19:21 WBC RBC Hgb 7.3 L Hct 20.4 L MCV MCH MCHC RDW Plt Count Lymph % (Auto) [place] % (Auto) Eos % (Auto) Baso % (Auto) Lymph # [place] # Eos # Baso # Seg Neutrophils % Seg Neutrophils # PT 21.3 H INR 1.73 H Sodium Potassium Chloride Carbon Dioxide Anion Gap BUN Creatinine Estimated GFR BUN/Creatinine Ratio Glucose POC Glucose 82 Calcium 12/24/17 12/25/17 12/25/17 23:40 05:27 05:27 WBC 6.0 RBC 2.31 L Hgb 7.4 L Hct 21.3 L MCV 92 MCH 32 MCHC 35 H RDW 15.9 H Plt Count 39 L Lymph % (Auto) 15.0 [place] % (Auto) 10.8 H Eos % (Auto) 1.6 Baso % (Auto) 0.7 Lymph # 0.9 L [place] # 0.6 Eos # 0.1 Baso # 0.0 Seg Neutrophils % 71.9 H Seg Neutrophils # 4.3 PT 22.1 H INR 1.81 H Sodium Potassium Chloride Carbon Dioxide Anion Gap BUN Creatinine Estimated GFR BUN/Creatinine Ratio Glucose POC Glucose 77 Calcium 12/25/17 12/25/17 05:27 06:19 WBC RBC Hgb Hct MCV MCH MCHC RDW Plt Count Lymph % (Auto) [place] % (Auto) Eos % (Auto) Baso % (Auto) Lymph # [place] # Eos # Baso # Seg Neutrophils % Seg Neutrophils # PT INR Sodium 139 Potassium 3.5 L Chloride 96.7 L Carbon Dioxide 28 Anion Gap 18 BUN 13 Creatinine 3.2 H Estimated GFR 24 BUN/Creatinine Ratio 4 Glucose 76 POC Glucose 74 Calcium 8.1 L
--- NOTE | 2017-12-25 19:20 | Progress Note ---
Assessment and Plan - Patient Problems (1) Acute hepatic encephalopathy Current Visit: Yes Status: Acute Plan to address problem: see orders. continue with lactulose, recheck ammonia level. continue same. supportive. (2) Anemia Current Visit: Yes Status: Acute Plan to address problem: see orders. Replacement transfusion, if hgb less than 7.0 same as above. see notes above. same as above, stable. see notes above. (3) Renal failure Current Visit: Yes Status: Acute Plan to address problem: follow renal service. same as above. (4) Liver failure Current Visit: Yes Status: Acute Plan to address problem: Hepato-renal syndrome, continue with HD. Subjective Date of service: 12/25/17 Principal diagnosis: Cirrhosis, Melena Interval history: Patient seen, restingm labs/notes reviewed. agree with management so far.labs showing consumptive coagulopathy. Patient seen, resting in bed, records/labs reviewed.PLT dropped some.Still no active bleeding. Patient seen/examined, records/labs / notes reviewed, hgb low at 6.9, will rec replacement transfusion,with HD tomorrow if planned to proceed with HD. Patient seen, resting in bed, labs/records reviewed, Hgb still low, transfusion written for today. Patient seen, resting in bed, labs reviewed, plt 57,000, rectal bleeding resolved, will continue to monitor patient/labs with you, and intervene with replacement transfusion, when needed. Patient seen, resting in bed, NAD, records reviewed. Patient seen, resting in bed, labs/records reviewed, no new issues, the latest plt fair, no any sign of bleeding. Patient seen, resting in bed, records reviewed, PLT 57,000, no bleeding. Patient seen, resting in bed, labs reviewed, hgb dropped drastically, due to rectal bleed.He is s/p blood transfusion. he is expected to continue to drop his hgb, as long as he continues to bleed. Will re check labs in am. Thrombocytopenia at above 20,000. will continue to monitor. Patient seen, resting in bed, labs reviewed, ,he will need some PLT+ FFP, especially if there is any plans for any procedure, otherwise, can watch if any active bleeding, or plt 20,000 or less. Objective - Constitutional Vitals: Vital Signs - 12hr 12/25/17 12/25/17 12/25/17 07:42 07:44 12:18 Temperature 98.2 F 98.4 F Pulse Rate 63 58 L 56 L Respiratory 16 14 Rate Blood Pressure 94/49 83/51 O2 Sat by Pulse 98 95 Oximetry 12/25/17 17:12 Temperature 97.9 F Pulse Rate Respiratory 16 Rate Blood Pressure 81/48 O2 Sat by Pulse Oximetry General appearance: Present: mild distress - EENT Eyes: PERRL, EOM intact ENT: hearing intact, clear oral mucosa Ears: bilateral: normal - Neck Neck: supple, normal ROM - Respiratory Respiratory effort: normal Respiratory: bilateral: CTA - Breasts Breasts: deferred - Cardiovascular Rhythm: regular Heart Sounds: Present: S1 & S2. Absent: gallop, rub Extremities: pulses intact, No edema, normal color, Full ROM - Gastrointestinal General gastrointestinal: Present: soft, non-tender, non-distended, normal bowel sounds Rectal Exam: deferred - Genitourinary Male genitourinary: deferred - Integumentary Integumentary: clear, warm, dry - Musculoskeletal Musculoskeletal: 1, strength equal bilaterally - Neurologic Neurologic: moves all extremities - Psychiatric Psychiatric: appropriate mood/affect - Labs CBC & Chem 7: 12/25/17 05:27 12/25/17 05:27 Labs: Abnormal lab results 12/24/17 12/24/17 12/25/17 Range/Units 19:21 19:21 05:27 RBC 2.31 L (3.65-5.03) M/mm3 Hgb 7.3 L 7.4 L (11.8-15.2) gm/dl Hct 20.4 L 21.3 L (35.5-45.6) % MCHC 35 H (32-34) % RDW 15.9 H (13.2-15.2) % Plt Count 39 L (140-440) K/mm3 [place] % (Auto) 10.8 H (0.0-7.3) % Lymph # 0.9 L (1.2-5.4) K/mm3 Seg Neutrophils % 71.9 H (40.0-70.0) % PT 21.3 H (12.2-14.9) Sec. INR 1.73 H (0.87-1.13) Potassium (3.6-5.0) mmol/L Chloride (98-107) mmol/L Creatinine (0.8-1.5) mg/dL POC Glucose (70-105) Calcium (8.4-10.2) mg/dL 12/25/17 12/25/17 12/25/17 Range/Units 05:27 05:27 12:24 RBC (3.65-5.03) M/mm3 Hgb (11.8-15.2) gm/dl Hct (35.5-45.6) % MCHC (32-34) % RDW (13.2-15.2) % Plt Count (140-440) K/mm3 [place] % (Auto) (0.0-7.3) % Lymph # (1.2-5.4) K/mm3 Seg Neutrophils % (40.0-70.0) % PT 22.1 H (12.2-14.9) Sec. INR 1.81 H (0.87-1.13) Potassium 3.5 L (3.6-5.0) mmol/L Chloride 96.7 L (98-107) mmol/L Creatinine 3.2 H (0.8-1.5) mg/dL POC Glucose 140 H (70-105) Calcium 8.1 L (8.4-10.2) mg/dL
[2017-12-25] MEDS ORDERED: NACL 0.9% 500 ML 500 ML IV SCH (19:40)
[2017-12-26 06:27] LABS: Basophils # (Auto) 0.1 K/mm3 (0.0-0.1); Eosinophils # (Auto) 0.1 K/mm3 (0.0-0.4); Eosinophils % (Auto) 1.9 % (0.0-4.3); Hemoglobin 6.6 gm/dl (11.8-15.2); Lymphocytes % (Auto) 14.6 % (13.4-35.0); Mean Corpuscular HGB Conc 35 % (32-34); Mean Corpuscular Hemoglobin 33 pg (28-32); Mean Corpuscular Volume 93 fl (84-94); Monocytes # (Auto) 0.7 K/mm3 (0.0-0.8); Monocytes % (Auto) 10.3 % (0.0-7.3); Red Blood Count 2.01 M/mm3 (3.65-5.03); Red Cell Distribution Width 16.6 % (13.2-15.2)
[2017-12-26 06:41] LABS: Hematocrit 18.6 % (35.5-45.6); Platelet Count 45 K/mm3 (140-440)
[2017-12-26 06:49] LABS: Albumin 3.5 g/dL (3.9-5); Calcium 8.4 mg/dL (8.4-10.2)
[2017-12-26] MEDS ORDERED: NACL 0.9% 1000 ML 1,000 ML IV SCH ×2 (08:00→13:00)
[2017-12-26] MEDS: LOPRESSOR PO SCH ×2 (09:32→23:42)
[2017-12-26] MEDS: PROAMATINE PO SCH ×3 (09:32→23:41)
[2017-12-26] MEDS: CEPHULAC PO SCH ×2 (09:32→23:41)
[2017-12-26] MEDS: PROTONIX FEEDTUBE SCH (09:32)
[2017-12-26] MEDS: XIFAXAN PO SCH ×2 (09:32→23:41)
[2017-12-26] MEDS ORDERED: NACL P/F VIAL (10 ML) ONE (10:00)
--- NOTE | 2017-12-26 10:43 | Progress Note ---
Assessment and Plan Sepsis, possibly SBP Acute encephalopathy Severe anemia Lactic acidosis, multifactorial Cirrhosis with esophageal varices Rectal bleeding Coagulopathy Metabolic acidosis, multifactorial Respiratory alkalosis Nonoliguric CARMEN secondary to prerenal azotemia due to hypoperfusion ATN vs HRS Moderate protein calorie malnutrition - follow repeat CXR; if there has been significant improvement in effusions will hold on thoracentesis - HD/UF per nephrology prescription ( should also reduce pulmonary volume overload) - continue conservative volume management at this point now off vasopressors - continue prn H&H; Transfuse PRBC's for Hb < 7.0 (or as per clerk of superior court) - prn analgesia - 2D ECHO with EF 40-45%; no overt pulm HTN - s/p antibiotic course for sepsis - continue Aspiration precautions - enteral nutrition as tolerated (s/p small bowel feeding tube) - continue chronic home medications, including rifaximin and midodrine - Avoid nephrotoxics and adjust all medications for GFR - GI evaluation ongoing; octreotide if signs of active bleeding; continue lactulose but frequency reduced to bid - continue therapeutic PPI - paracentesis per GI recs - Follow up cultures (NGTD) - SCDs for VTE prophylaxis in view of GIB and coagulopathy - Supportive transfusions - Nutrition consult placed - PT/OT consult placed - continue to monitor closely on telemetry ..... 25' Subjective Date of service: 12/26/17 Principal diagnosis: CARMEN on CKD; Acute Encephalopathy; Sepsis Syndrome; Anemia Interval history: Patient is seen today for: CARMEN on CKD; Acute Encephalopathy; Sepsis Syndrome; Anemia Seen and examined at bedside; 24hour events reviewed; nursing and respiratory care staff consulted; no adverse overnight events reported to me; resting in bed ; remains on 2L NC; no N/V/F/C; denies chest pains Objective Vital Signs - 12hr 12/25/17 12/25/17 12/25/17 22:47 22:50 23:30 Temperature 98.1 F Pulse Rate 56 L 57 L Respiratory 17 Rate Blood Pressure 84/44 84/44 87/48 O2 Sat by Pulse 100 Oximetry 12/26/17 12/26/17 12/26/17 04:05 07:26 09:32 Temperature 97.0 F L 98.3 F Pulse Rate 57 L 58 L 58 L Respiratory 17 16 Rate Blood Pressure 100/48 85/47 85/47 O2 Sat by Pulse 100 93 Oximetry Constitutional: lethargic, other (chronically ill looking elderly AAM, normocephalic and atraumatic) Eyes: non-icteric ENT: oropharynx moist, other (mallampati 2) Neck: supple, no lymphadenopathy, no JVD, other (no thyromegaly) Effort: mildly labored Ascultation: Bilateral: diminished breath sounds (bases), rhonchi (scant) Percussion: Bilateral: not dull, dull (bases) Cardiovascular: regular rate and rhythm, other (S1,S2, no murmurms, gallops or rubs) Gastrointestinal: normoactive bowel sounds, soft, non-tender, other (distended) Integumentary: rash Extremities: no cyanosis, no edema, pulses normal, no ischemia or petechiae, cool Neurologic: non-focal exam, pupils equal and round, motor strength normal and ( weak), other (somnolent) Psychiatric: other (somnolent; flat affect) CBC and BMP: 12/27/17 06:34 12/27/17 06:34 ABG, PT/INR, D-dimer: ABG POC ABG pH 7.452 (7.35-7.45) H 12/12/17 09:13 POC ABG pCO2 22.2 (35-45) L 12/12/17 09:13 POC ABG pO2 75 (80-105) L 12/12/17 09:13 POC ABG HCO3 15.5 12/12/17 09:13 POC ABG Total CO2 16 12/12/17 09:13 POC ABG O2 Sat 96 12/12/17 09:13 PT/INR, D-dimer PT 22.1 Sec. (12.2-14.9) H 12/25/17 05:27 INR 1.81 (0.87-1.13) H 12/25/17 05:27 D-Dimer 1215.06 ng/mlDDU (0-234) H 12/12/17 19:50 Abnormal lab findings: Abnormal Labs 12/10/17 12/10/17 12/10/17 13:14 13:14 23:05 RBC 2.31 L Hgb 7.3 L Hct 21.5 L MCH MCHC RDW 17.7 H Plt Count 61 L Lymph % (Auto) Isabella % (Auto) Lymph # Isabella # Seg Neutrophils % Seg Neuts % (Manual) 81.0 H Lymphocytes % (Manual) 11.0 L Lymphocytes # (Manual) 0.6 L PT INR APTT Fibrinogen D-Dimer POC ABG pH POC ABG pCO2 POC ABG pO2 Sodium 136 L Potassium 5.2 H Chloride Carbon Dioxide 15 L BUN 47 H Creatinine 5.2 H Glucose 127 H POC Glucose Lactic Acid Calcium Phosphorus Magnesium Total Bilirubin 3.50 H Direct Bilirubin AST 71 H Ammonia Lactate Dehydrogenase NT-Pro-B Natriuret Pep Total Protein Albumin 2.6 L Lipase Vitamin B12 Urine WBC (Auto) 10.0 H Urine Creatinine Ur Creatinine 24 Hour Digoxin Crossmatch 12/10/17 12/10/17 12/10/17 23:14 23:14 23:14 RBC Hgb Hct MCH MCHC RDW Plt Count Lymph % (Auto) Isabella % (Auto) Lymph # Isabella # Seg Neutrophils % Seg Neuts % (Manual) Lymphocytes % (Manual) Lymphocytes # (Manual) PT INR APTT Fibrinogen D-Dimer POC ABG pH POC ABG pCO2 POC ABG pO2 Sodium Potassium Chloride Carbon Dioxide BUN Creatinine Glucose POC Glucose Lactic Acid 2.40 H* Calcium Phosphorus Magnesium Total Bilirubin Direct Bilirubin AST Ammonia 134.0 H Lactate Dehydrogenase NT-Pro-B Natriuret Pep 9558 H Total Protein Albumin Lipase Vitamin B12 Urine WBC (Auto) Urine Creatinine Ur Creatinine 24 Hour Digoxin Crossmatch 12/10/17 12/11/17 12/11/17 23:14 00:29 03:33 RBC Hgb Hct MCH MCHC RDW Plt Count Lymph % (Auto) Isabella % (Auto) Lymph # Isabella # Seg Neutrophils % Seg Neuts % (Manual) Lymphocytes % (Manual) Lymphocytes # (Manual) PT INR APTT Fibrinogen D-Dimer POC ABG pH POC ABG pCO2 POC ABG pO2 Sodium Potassium Chloride Carbon Dioxide BUN Creatinine Glucose POC Glucose Lactic Acid 2.80 H* 3.00 H* Calcium Phosphorus Magnesium Total Bilirubin Direct Bilirubin AST Ammonia Lactate Dehydrogenase NT-Pro-B Natriuret Pep Total Protein Albumin Lipase 7 L Vitamin B12 Urine WBC (Auto) Urine Creatinine Ur Creatinine 24 Hour Digoxin Crossmatch 12/11/17 12/11/17 12/11/17 04:08 04:34 04:34 RBC Hgb Hct MCH MCHC RDW Plt Count Lymph % (Auto) Isabella % (Auto) Lymph # Isabella # Seg Neutrophils % Seg Neuts % (Manual) Lymphocytes % (Manual) Lymphocytes # (Manual) PT 19.1 H INR 1.51 H APTT 45.7 H Fibrinogen D-Dimer POC ABG pH POC ABG pCO2 POC ABG pO2 Sodium Potassium Chloride Carbon Dioxide BUN Creatinine Glucose POC Glucose 113 H Lactic Acid 3.10 H* Calcium Phosphorus Magnesium Total Bilirubin Direct Bilirubin AST Ammonia Lactate Dehydrogenase NT-Pro-B Natriuret Pep Total Protein Albumin Lipase Vitamin B12 Urine WBC (Auto) Urine Creatinine Ur Creatinine 24 Hour Digoxin Crossmatch 12/11/17 12/11/17 12/11/17 06:46 07:26 09:42 RBC Hgb Hct MCH MCHC RDW Plt Count Lymph % (Auto) Isabella % (Auto) Lymph # Isabella # Seg Neutrophils % Seg Neuts % (Manual) Lymphocytes % (Manual) Lymphocytes # (Manual) PT INR APTT Fibrinogen D-Dimer POC ABG pH POC ABG pCO2 POC ABG pO2 Sodium Potassium Chloride Carbon Dioxide BUN Creatinine Glucose POC Glucose Lactic Acid 2.70 H* 2.80 H* 2.90 H* Calcium Phosphorus Magnesium Total Bilirubin Direct Bilirubin AST Ammonia Lactate Dehydrogenase NT-Pro-B Natriuret Pep Total Protein Albumin Lipase Vitamin B12 Urine WBC (Auto) Urine Creatinine Ur Creatinine 24 Hour Digoxin Crossmatch 12/11/17 12/11/17 12/11/17 13:12 14:06 23:14 RBC Hgb Hct MCH MCHC RDW Plt Count Lymph % (Auto) Isabella % (Auto) Lymph # Isabella # Seg Neutrophils % Seg Neuts % (Manual) Lymphocytes % (Manual) Lymphocytes # (Manual) PT INR APTT Fibrinogen D-Dimer POC ABG pH POC ABG pCO2 POC ABG pO2 Sodium Potassium Chloride Carbon Dioxide BUN Creatinine Glucose POC Glucose Lactic Acid 3.10 H* 3.10 H* 3.70 H* Calcium Phosphorus Magnesium Total Bilirubin Direct Bilirubin AST Ammonia Lactate Dehydrogenase NT-Pro-B Natriuret Pep Total Protein Albumin Lipase Vitamin B12 Urine WBC (Auto) Urine Creatinine Ur Creatinine 24 Hour Digoxin Crossmatch 12/11/17 12/12/17 12/12/17 23:23 03:41 03:41 RBC 2.17 L Hgb 7.0 L Hct 19.9 L* MCH 33 H MCHC 35 H RDW 17.7 H Plt Count 62 L Lymph % (Auto) Isabella % (Auto) Lymph # Isabella # Seg Neutrophils % Seg Neuts % (Manual) 91.0 H Lymphocytes % (Manual) 3.0 L Lymphocytes # (Manual) 0.2 L PT INR APTT Fibrinogen D-Dimer POC ABG pH POC ABG pCO2 POC ABG pO2 Sodium Potassium 5.4 H Chloride Carbon Dioxide 12 L BUN 47 H Creatinine 4.5 H Glucose 103 H POC Glucose Lactic Acid Calcium 8.0 L Phosphorus Magnesium Total Bilirubin 3.60 H Direct Bilirubin AST 58 H Ammonia Lactate Dehydrogenase NT-Pro-B Natriuret Pep Total Protein 5.9 L Albumin 2.5 L Lipase Vitamin B12 Urine WBC (Auto) Urine Creatinine Ur Creatinine 24 Hour Digoxin Crossmatch See Detail 12/12/17 12/12/17 12/12/17 07:00 09:13 17:55 RBC 2.06 L Hgb 6.6 L Hct 18.6 L* MCH MCHC 36 H RDW 17.8 H Plt Count 77 L Lymph % (Auto) Isabella % (Auto) Lymph # Isabella # Seg Neutrophils % Seg Neuts % (Manual) Lymphocytes % (Manual) Lymphocytes # (Manual) PT INR APTT Fibrinogen D-Dimer POC ABG pH 7.452 H POC ABG pCO2 22.2 L POC ABG pO2 75 L Sodium Potassium Chloride Carbon Dioxide BUN Creatinine Glucose POC Glucose 119 H Lactic Acid Calcium Phosphorus Magnesium Total Bilirubin Direct Bilirubin AST Ammonia Lactate Dehydrogenase NT-Pro-B Natriuret Pep Total Protein Albumin Lipase Vitamin B12 Urine WBC (Auto) Urine Creatinine Ur Creatinine 24 Hour Digoxin Crossmatch 12/12/17 12/12/17 12/12/17 19:50 19:50 19:50 RBC 2.40 L Hgb 7.8 L Hct 21.3 L MCH 33 H MCHC 37 H RDW 16.1 H Plt Count 99 L Lymph % (Auto) Isabella % (Auto) Lymph # Isabella # Seg Neutrophils % Seg Neuts % (Manual) 87.0 H Lymphocytes % (Manual) 5.0 L Lymphocytes # (Manual) 0.3 L PT 21.9 H INR 1.79 H APTT 41.5 H Fibrinogen 128 L D-Dimer 1215.06 H POC ABG pH POC ABG pCO2 POC ABG pO2 Sodium Potassium Chloride Carbon Dioxide BUN Creatinine Glucose POC Glucose Lactic Acid Calcium Phosphorus Magnesium Total Bilirubin 4.10 H Direct Bilirubin 1.6 H AST Ammonia Lactate Dehydrogenase NT-Pro-B Natriuret Pep Total Protein Albumin Lipase Vitamin B12 Urine WBC (Auto) Urine Creatinine Ur Creatinine 24 Hour Digoxin Crossmatch 12/12/17 12/12/17 12/12/17 19:50 19:50 23:46 RBC Hgb Hct MCH MCHC RDW Plt Count Lymph % (Auto) Isabella % (Auto) Lymph # Isabella # Seg Neutrophils % Seg Neuts % (Manual) Lymphocytes % (Manual) Lymphocytes # (Manual) PT INR APTT Fibrinogen D-Dimer POC ABG pH POC ABG pCO2 POC ABG pO2 Sodium Potassium Chloride Carbon Dioxide BUN Creatinine Glucose POC Glucose 110 H Lactic Acid Calcium Phosphorus Magnesium Total Bilirubin Direct Bilirubin AST Ammonia Lactate Dehydrogenase 213 H NT-Pro-B Natriuret Pep Total Protein Albumin Lipase Vitamin B12 1465 H Urine WBC (Auto) Urine Creatinine Ur Creatinine 24 Hour Digoxin Crossmatch 12/13/17 12/13/17 12/13/17 04:00 04:00 05:12 RBC 2.32 L Hgb 7.4 L Hct 20.8 L MCH MCHC 36 H RDW 16.1 H Plt Count 134 L Lymph % (Auto) 13.1 L Isabella % (Auto) 7.9 H Lymph # 0.8 L Isabella # Seg Neutrophils % 76.3 H Seg Neuts % (Manual) Lymphocytes % (Manual) Lymphocytes # (Manual) PT INR APTT Fibrinogen D-Dimer POC ABG pH POC ABG pCO2 POC ABG pO2 Sodium Potassium Chloride Carbon Dioxide 21 L D BUN 48 H Creatinine 4.6 H Glucose 104 H POC Glucose 134 H Lactic Acid Calcium 8.1 L Phosphorus Magnesium Total Bilirubin 4.70 H Direct Bilirubin AST 43 H Ammonia Lactate Dehydrogenase NT-Pro-B Natriuret Pep Total Protein 5.8 L Albumin 3.1 L Lipase Vitamin B12 Urine WBC (Auto) Urine Creatinine Ur Creatinine 24 Hour Digoxin Crossmatch 12/13/17 12/13/17 12/13/17 08:45 12:25 14:03 RBC Hgb Hct MCH MCHC RDW Plt Count Lymph % (Auto) Isabella % (Auto) Lymph # Isabella # Seg Neutrophils % Seg Neuts % (Manual) Lymphocytes % (Manual) Lymphocytes # (Manual) PT 20.5 H INR 1.65 H APTT Fibrinogen D-Dimer POC ABG pH POC ABG pCO2 POC ABG pO2 Sodium Potassium Chloride Carbon Dioxide BUN Creatinine Glucose POC Glucose 112 H Lactic Acid 3.70 H* Calcium Phosphorus Magnesium Total Bilirubin Direct Bilirubin AST Ammonia Lactate Dehydrogenase NT-Pro-B Natriuret Pep Total Protein Albumin Lipase Vitamin B12 Urine WBC (Auto) Urine Creatinine Ur Creatinine 24 Hour Digoxin Crossmatch 12/13/17 12/13/17 12/13/17 14:03 18:52 21:09 RBC Hgb Hct MCH MCHC RDW Plt Count Lymph % (Auto) Isabella % (Auto) Lymph # Isabella # Seg Neutrophils % Seg Neuts % (Manual) Lymphocytes % (Manual) Lymphocytes # (Manual) PT INR APTT Fibrinogen D-Dimer POC ABG pH POC ABG pCO2 POC ABG pO2 Sodium Potassium Chloride Carbon Dioxide BUN Creatinine Glucose POC Glucose 110 H Lactic Acid 4.00 H* Calcium Phosphorus Magnesium Total Bilirubin Direct Bilirubin AST Ammonia 87.0 H Lactate Dehydrogenase NT-Pro-B Natriuret Pep Total Protein Albumin Lipase Vitamin B12 Urine WBC (Auto) Urine Creatinine Ur Creatinine 24 Hour Digoxin Crossmatch 12/14/17 12/14/17 12/14/17 00:25 03:30 03:30 RBC 2.29 L Hgb 7.3 L Hct 20.7 L MCH MCHC 35 H RDW 16.2 H Plt Count 84 L Lymph % (Auto) 12.8 L Isabella % (Auto) 8.3 H Lymph # 0.6 L Isabella # Seg Neutrophils % 77.2 H Seg Neuts % (Manual) Lymphocytes % (Manual) Lymphocytes # (Manual) PT INR APTT Fibrinogen D-Dimer POC ABG pH POC ABG pCO2 POC ABG pO2 Sodium Potassium Chloride 96.1 L Carbon Dioxide BUN 48 H Creatinine 4.6 H Glucose 125 H POC Glucose 131 H Lactic Acid Calcium 7.9 L Phosphorus Magnesium Total Bilirubin 4.70 H Direct Bilirubin AST 45 H Ammonia Lactate Dehydrogenase NT-Pro-B Natriuret Pep Total Protein 6.1 L Albumin 3.4 L Lipase Vitamin B12 Urine WBC (Auto) Urine Creatinine Ur Creatinine 24 Hour Digoxin Crossmatch 12/14/17 12/14/17 12/14/17 05:31 12:26 12:55 RBC Hgb Hct MCH MCHC RDW Plt Count Lymph % (Auto) Isabella % (Auto) Lymph # Isabella # Seg Neutrophils % Seg Neuts % (Manual) Lymphocytes % (Manual) Lymphocytes # (Manual) PT INR APTT Fibrinogen D-Dimer POC ABG pH POC ABG pCO2 POC ABG pO2 Sodium Potassium Chloride Carbon Dioxide BUN Creatinine Glucose POC Glucose 125 H 117 H Lactic Acid 3.40 H* Calcium Phosphorus Magnesium Total Bilirubin Direct Bilirubin AST Ammonia Lactate Dehydrogenase NT-Pro-B Natriuret Pep Total Protein Albumin Lipase Vitamin B12 Urine WBC (Auto) Urine Creatinine Ur Creatinine 24 Hour Digoxin Crossmatch 12/14/17 12/14/17 12/14/17 15:26 17:26 18:07 RBC Hgb Hct MCH MCHC RDW Plt Count Lymph % (Auto) Isabella % (Auto) Lymph # Isabella # Seg Neutrophils % Seg Neuts % (Manual) Lymphocytes % (Manual) Lymphocytes # (Manual) PT INR APTT Fibrinogen D-Dimer POC ABG pH POC ABG pCO2 POC ABG pO2 Sodium Potassium Chloride Carbon Dioxide BUN Creatinine Glucose POC Glucose 143 H Lactic Acid 4.00 H* 3.90 H* Calcium Phosphorus Magnesium Total Bilirubin Direct Bilirubin AST Ammonia Lactate Dehydrogenase NT-Pro-B Natriuret Pep Total Protein Albumin Lipase Vitamin B12 Urine WBC (Auto) Urine Creatinine Ur Creatinine 24 Hour Digoxin Crossmatch 12/14/17 12/15/17 12/15/17 Unknown 00:08 04:51 RBC 2.27 L Hgb 7.3 L Hct 20.7 L MCH MCHC 35 H RDW 16.1 H Plt Count 92 L Lymph % (Auto) 12.5 L Isabella % (Auto) 10.4 H Lymph # 0.6 L Isabella # Seg Neutrophils % 74.7 H Seg Neuts % (Manual) Lymphocytes % (Manual) Lymphocytes # (Manual) PT INR APTT Fibrinogen D-Dimer POC ABG pH POC ABG pCO2 POC ABG pO2 Sodium Potassium Chloride Carbon Dioxide BUN Creatinine Glucose POC Glucose 124 H Lactic Acid Calcium Phosphorus Magnesium Total Bilirubin Direct Bilirubin AST Ammonia Lactate Dehydrogenase NT-Pro-B Natriuret Pep Total Protein Albumin Lipase Vitamin B12 Urine WBC (Auto) Urine Creatinine 122.5 H Ur Creatinine 24 Hour 0.3 L Digoxin Crossmatch 12/15/17 12/15/17 12/15/17 04:51 04:51 05:56 RBC Hgb Hct MCH MCHC RDW Plt Count Lymph % (Auto) Isabella % (Auto) Lymph # Isabella # Seg Neutrophils % Seg Neuts % (Manual) Lymphocytes % (Manual) Lymphocytes # (Manual) PT INR APTT Fibrinogen D-Dimer POC ABG pH POC ABG pCO2 POC ABG pO2 Sodium Potassium 3.5 L Chloride 92.6 L Carbon Dioxide BUN 50 H Creatinine 4.8 H Glucose 141 H POC Glucose 143 H Lactic Acid Calcium 7.9 L Phosphorus Magnesium Total Bilirubin 3.60 H Direct Bilirubin AST 44 H Ammonia 24.0 L Lactate Dehydrogenase NT-Pro-B Natriuret Pep Total Protein 6.1 L Albumin 3.8 L Lipase Vitamin B12 Urine WBC (Auto) Urine Creatinine Ur Creatinine 24 Hour Digoxin Crossmatch 12/15/17 12/15/17 12/16/17 12:17 23:10 07:04 RBC Hgb Hct MCH MCHC RDW Plt Count Lymph % (Auto) Isabella % (Auto) Lymph # Isabella # Seg Neutrophils % Seg Neuts % (Manual) Lymphocytes % (Manual) Lymphocytes # (Manual) PT INR APTT Fibrinogen D-Dimer POC ABG pH POC ABG pCO2 POC ABG pO2 Sodium Potassium Chloride Carbon Dioxide BUN Creatinine Glucose POC Glucose 127 H 157 H 147 H Lactic Acid Calcium Phosphorus Magnesium Total Bilirubin Direct Bilirubin AST Ammonia Lactate Dehydrogenase NT-Pro-B Natriuret Pep Total Protein Albumin Lipase Vitamin B12 Urine WBC (Auto) Urine Creatinine Ur Creatinine 24 Hour Digoxin Crossmatch 12/16/17 12/16/17 12/16/17 11:35 12:37 12:37 RBC 2.21 L Hgb 6.9 L Hct 20.2 L MCH MCHC RDW 16.2 H Plt Count 50 L Lymph % (Auto) Isabella % (Auto) 9.7 H Lymph # 0.7 L Isabella # Seg Neutrophils % 73.1 H Seg Neuts % (Manual) Lymphocytes % (Manual) Lymphocytes # (Manual) PT INR APTT Fibrinogen D-Dimer POC ABG pH POC ABG pCO2 POC ABG pO2 Sodium Potassium Chloride 88.2 L Carbon Dioxide BUN 52 H Creatinine 5.5 H Glucose 107 H POC Glucose 134 H Lactic Acid Calcium 7.8 L Phosphorus Magnesium Total Bilirubin 2.60 H Direct Bilirubin AST 49 H Ammonia Lactate Dehydrogenase NT-Pro-B Natriuret Pep Total Protein Albumin 3.6 L Lipase Vitamin B12 Urine WBC (Auto) Urine Creatinine Ur Creatinine 24 Hour Digoxin Crossmatch 12/16/17 12/16/17 12/16/17 18:06 20:45 23:34 RBC Hgb Hct MCH MCHC RDW Plt Count Lymph % (Auto) Isabella % (Auto) Lymph # Isabella # Seg Neutrophils % Seg Neuts % (Manual) Lymphocytes % (Manual) Lymphocytes # (Manual) PT INR APTT Fibrinogen D-Dimer POC ABG pH POC ABG pCO2 POC ABG pO2 Sodium Potassium Chloride Carbon Dioxide BUN Creatinine Glucose POC Glucose 133 H 139 H Lactic Acid Calcium Phosphorus Magnesium Total Bilirubin Direct Bilirubin AST Ammonia Lactate Dehydrogenase NT-Pro-B Natriuret Pep Total Protein Albumin Lipase Vitamin B12 Urine WBC (Auto) Urine Creatinine Ur Creatinine 24 Hour Digoxin Crossmatch See Detail 12/17/17 12/17/17 12/17/17 05:27 05:27 06:11 RBC 2.10 L Hgb 6.6 L Hct 19.2 L* MCH MCHC 35 H RDW 16.5 H Plt Count 65 L Lymph % (Auto) 12.6 L Isabella % (Auto) 9.6 H Lymph # 0.7 L Isabella # Seg Neutrophils % 75.8 H Seg Neuts % (Manual) Lymphocytes % (Manual) Lymphocytes # (Manual) PT INR APTT Fibrinogen D-Dimer POC ABG pH POC ABG pCO2 POC ABG pO2 Sodium 135 L Potassium 3.4 L Chloride 84.9 L Carbon Dioxide 33 H BUN 53 H Creatinine 5.9 H Glucose POC Glucose 110 H Lactic Acid Calcium 7.7 L Phosphorus Magnesium Total Bilirubin 2.70 H Direct Bilirubin AST 50 H Ammonia Lactate Dehydrogenase NT-Pro-B Natriuret Pep Total Protein 6.2 L Albumin 3.7 L Lipase Vitamin B12 Urine WBC (Auto) Urine Creatinine Ur Creatinine 24 Hour Digoxin Crossmatch 12/17/17 12/18/17 12/18/17 09:34 00:05 05:21 RBC 3.35 L Hgb 10.3 L D Hct 30.4 L D MCH MCHC RDW 16.2 H Plt Count 57 L Lymph % (Auto) 8.0 L Isabella % (Auto) 10.9 H Lymph # 0.6 L Isabella # Seg Neutrophils % 80.2 H Seg Neuts % (Manual) Lymphocytes % (Manual) Lymphocytes # (Manual) PT 23.9 H INR 1.99 H APTT Fibrinogen D-Dimer POC ABG pH POC ABG pCO2 POC ABG pO2 Sodium Potassium Chloride Carbon Dioxide BUN Creatinine Glucose POC Glucose 132 H Lactic Acid Calcium Phosphorus Magnesium Total Bilirubin Direct Bilirubin AST Ammonia Lactate Dehydrogenase NT-Pro-B Natriuret Pep Total Protein Albumin Lipase Vitamin B12 Urine WBC (Auto) Urine Creatinine Ur Creatinine 24 Hour Digoxin Crossmatch 12/18/17 12/18/17 12/18/17 05:21 06:16 11:11 RBC Hgb Hct MCH MCHC RDW Plt Count Lymph % (Auto) Isabella % (Auto) Lymph # Isabella # Seg Neutrophils % Seg Neuts % (Manual) Lymphocytes % (Manual) Lymphocytes # (Manual) PT 34.7 H INR 3.17 H APTT Fibrinogen D-Dimer POC ABG pH POC ABG pCO2 POC ABG pO2 Sodium Potassium 3.5 L Chloride 87.1 L Carbon Dioxide BUN 35 H Creatinine 4.3 H Glucose 110 H POC Glucose 116 H Lactic Acid Calcium 8.1 L Phosphorus Magnesium Total Bilirubin 5.10 H Direct Bilirubin AST 56 H Ammonia Lactate Dehydrogenase NT-Pro-B Natriuret Pep Total Protein Albumin Lipase Vitamin B12 Urine WBC (Auto) Urine Creatinine Ur Creatinine 24 Hour Digoxin Crossmatch 12/18/17 12/18/17 12/18/17 13:10 17:52 22:04 RBC Hgb Hct MCH MCHC RDW Plt Count Lymph % (Auto) Isabella % (Auto) Lymph # Isabella # Seg Neutrophils % Seg Neuts % (Manual) Lymphocytes % (Manual) Lymphocytes # (Manual) PT 25.9 H INR 2.20 H APTT Fibrinogen D-Dimer POC ABG pH POC ABG pCO2 POC ABG pO2 Sodium Potassium Chloride Carbon Dioxide BUN Creatinine Glucose POC Glucose 114 H 108 H Lactic Acid Calcium Phosphorus Magnesium Total Bilirubin Direct Bilirubin AST Ammonia Lactate Dehydrogenase NT-Pro-B Natriuret Pep Total Protein Albumin Lipase Vitamin B12 Urine WBC (Auto) Urine Creatinine Ur Creatinine 24 Hour Digoxin Crossmatch 12/19/17 12/19/17 12/19/17 05:55 05:55 10:20 RBC 2.85 L Hgb 9.1 L Hct 25.7 L MCH MCHC 35 H RDW 16.4 H Plt Count 61 L Lymph % (Auto) Isabella % (Auto) Lymph # Isabella # Seg Neutrophils % Seg Neuts % (Manual) Lymphocytes % (Manual) Lymphocytes # (Manual) PT INR APTT Fibrinogen D-Dimer POC ABG pH POC ABG pCO2 POC ABG pO2 Sodium Potassium Chloride 94.5 L Carbon Dioxide BUN 27 H Creatinine 3.6 H Glucose POC Glucose 131 H Lactic Acid Calcium 8.2 L Phosphorus Magnesium Total Bilirubin Direct Bilirubin AST Ammonia Lactate Dehydrogenase NT-Pro-B Natriuret Pep Total Protein Albumin Lipase Vitamin B12 Urine WBC (Auto) Urine Creatinine Ur Creatinine 24 Hour Digoxin Crossmatch 12/19/17 12/21/17 12/21/17 11:46 05:26 05:26 RBC 2.60 L Hgb 8.4 L Hct 23.9 L MCH MCHC 35 H RDW 16.2 H Plt Count 57 L Lymph % (Auto) 12.4 L Isabella % (Auto) 10.7 H Lymph # Isabella # 1.0 H Seg Neutrophils % 74.8 H Seg Neuts % (Manual) Lymphocytes % (Manual) Lymphocytes # (Manual) PT 26.2 H INR 2.23 H APTT Fibrinogen D-Dimer POC ABG pH POC ABG pCO2 POC ABG pO2 Sodium Potassium Chloride Carbon Dioxide BUN Creatinine Glucose POC Glucose Lactic Acid Calcium Phosphorus Magnesium Total Bilirubin Direct Bilirubin AST Ammonia Lactate Dehydrogenase NT-Pro-B Natriuret Pep Total Protein Albumin Lipase Vitamin B12 Urine WBC (Auto) Urine Creatinine Ur Creatinine 24 Hour Digoxin 0.4 L Crossmatch 12/21/17 12/23/17 12/24/17 09:40 08:15 04:51 RBC 1.80 L Hgb 5.9 L* Hct 17.0 L* D MCH 33 H MCHC 35 H RDW 16.5 H Plt Count 53 L Lymph % (Auto) Isabella % (Auto) Lymph # Isabella # Seg Neutrophils % Seg Neuts % (Manual) Lymphocytes % (Manual) Lymphocytes # (Manual) PT 26.4 H 27.9 H INR 2.26 H 2.42 H APTT Fibrinogen D-Dimer POC ABG pH POC ABG pCO2 POC ABG pO2 Sodium Potassium Chloride Carbon Dioxide BUN Creatinine Glucose POC Glucose Lactic Acid Calcium Phosphorus Magnesium Total Bilirubin Direct Bilirubin AST Ammonia Lactate Dehydrogenase NT-Pro-B Natriuret Pep Total Protein Albumin Lipase Vitamin B12 Urine WBC (Auto) Urine Creatinine Ur Creatinine 24 Hour Digoxin Crossmatch 12/24/17 12/24/17 12/24/17 04:51 06:25 08:20 RBC Hgb Hct MCH MCHC RDW Plt Count Lymph % (Auto) Isabella % (Auto) Lymph # Isabella # Seg Neutrophils % Seg Neuts % (Manual) Lymphocytes % (Manual) Lymphocytes # (Manual) PT 40.8 H INR 3.87 H APTT Fibrinogen D-Dimer POC ABG pH POC ABG pCO2 POC ABG pO2 Sodium Potassium 3.5 L Chloride Carbon Dioxide BUN 21 H Creatinine 4.4 H Glucose POC Glucose Lactic Acid Calcium 8.1 L Phosphorus Magnesium Total Bilirubin Direct Bilirubin AST Ammonia Lactate Dehydrogenase NT-Pro-B Natriuret Pep Total Protein Albumin Lipase Vitamin B12 Urine WBC (Auto) Urine Creatinine Ur Creatinine 24 Hour Digoxin Crossmatch See Detail 12/24/17 12/24/17 12/25/17 19:21 19:21 05:27 RBC 2.31 L Hgb 7.3 L 7.4 L Hct 20.4 L 21.3 L MCH MCHC 35 H RDW 15.9 H Plt Count 39 L Lymph % (Auto) Isabella % (Auto) 10.8 H Lymph # 0.9 L Isabella # Seg Neutrophils % 71.9 H Seg Neuts % (Manual) Lymphocytes % (Manual) Lymphocytes # (Manual) PT 21.3 H INR 1.73 H APTT Fibrinogen D-Dimer POC ABG pH POC ABG pCO2 POC ABG pO2 Sodium Potassium Chloride Carbon Dioxide BUN Creatinine Glucose POC Glucose Lactic Acid Calcium Phosphorus Magnesium Total Bilirubin Direct Bilirubin AST Ammonia Lactate Dehydrogenase NT-Pro-B Natriuret Pep Total Protein Albumin Lipase Vitamin B12 Urine WBC (Auto) Urine Creatinine Ur Creatinine 24 Hour Digoxin Crossmatch 12/25/17 12/25/17 12/25/17 05:27 05:27 12:24 RBC Hgb Hct MCH MCHC RDW Plt Count Lymph % (Auto) Isabella % (Auto) Lymph # Isabella # Seg Neutrophils % Seg Neuts % (Manual) Lymphocytes % (Manual) Lymphocytes # (Manual) PT 22.1 H INR 1.81 H APTT Fibrinogen D-Dimer POC ABG pH POC ABG pCO2 POC ABG pO2 Sodium Potassium 3.5 L Chloride 96.7 L Carbon Dioxide BUN Creatinine 3.2 H Glucose POC Glucose 140 H Lactic Acid Calcium 8.1 L Phosphorus Magnesium Total Bilirubin Direct Bilirubin AST Ammonia Lactate Dehydrogenase NT-Pro-B Natriuret Pep Total Protein Albumin Lipase Vitamin B12 Urine WBC (Auto) Urine Creatinine Ur Creatinine 24 Hour Digoxin Crossmatch 12/26/17 12/26/17 05:59 05:59 RBC 2.01 L Hgb 6.6 L Hct 18.6 L* MCH 33 H MCHC 35 H RDW 16.6 H Plt Count 45 L Lymph % (Auto) [place]abella % (Auto) 10.3 H Lymph # 1.0 L Isabella # Seg Neutrophils % 72.2 H Seg Neuts % (Manual) Lymphocytes % (Manual) Lymphocytes # (Manual) PT INR APTT Fibrinogen D-Dimer POC ABG pH POC ABG pCO2 POC ABG pO2 Sodium Potassium 3.3 L Chloride Carbon Dioxide BUN Creatinine 3.8 H Glucose 110 H POC Glucose Lactic Acid Calcium Phosphorus 2.40 L Magnesium 1.40 L Total Bilirubin 7.10 H Direct Bilirubin AST 73 H Ammonia Lactate Dehydrogenase NT-Pro-B Natriuret Pep Total Protein Albumin 3.5 L Lipase Vitamin B12 Urine WBC (Auto) Urine Creatinine Ur Creatinine 24 Hour Digoxin Crossmatch Allied health notes reviewed: RT
[2017-12-26] MEDS ORDERED: K-DUR PO ONE (10:56)
[2017-12-26] MEDS ORDERED: NACL 0.9% 500 ML 500 ML IV ONE (11:00)
--- NOTE | 2017-12-26 11:09 | Progress Note ---
Assessment and Plan Assessment and plan: --Acute blood loss anemia. Variceal bleeding Received 7 units of PRBC, hemoglobin today is 6.6 Transfuse 2 additional PRBC today, Patient scheduled for EGD --NSVT, resolved ; continue Lopressor --Septic/hypovolemic shock. On midodrine, --Sepsis;cultures negative --Coagulopathy cirrhosis of liver ; received FFP and vitamin K , monitor INR --Rectal bleeding; resolved GI following --Cirrhosis with esophageal varices. Patient without signs of active bleeding. --Toxic metabolic/hepatic encephalopathy. Hyperammonemia on admission. Resolved --Acute on chronic kidney disease : ATN/sepsis/hypotension. On hemodialysis,Outpatient dialysis per case management --Hepatorenal syndrome; on HD, nephrology following --Bilateral pleural effusion right greater than left. Gray Tender recommends giving FFP and possible thoracentesis if needed Plan of care Discussed with patient and at bedside today 12/24 Nurse states patient was scheduled to have an evaluation in [place] on 12/30/2017 for possible liver transplant. Will call try out person in [place] and discuss case pending EGD History Interval history: Patient seen and examined medical records reviewed No new events reported by the nursing Significant drop in hemoglobin today to 6.6 Schedule for EGD Alert awake responding appropriately vital signs reviewed Hospitalist Physical - Constitutional Vitals: Temp Pulse Resp BP Pulse Ox 98.3 F 58 L 16 85/47 93 12/26/17 07:26 12/26/17 09:32 12/26/17 07:26 12/26/17 09:32 12/26/17 07:26 General appearance: Present: no acute distress, cachectic, disheveled - EENT Eyes: Present: PERRL, EOM intact - Neck Neck: Present: supple, normal ROM - Respiratory Respiratory effort: normal Respiratory: bilateral: diminished, negative: rales, rhonchi, wheezing - Cardiovascular Rhythm: regular Heart Sounds: Present: S1 & S2 - Extremities Extremities: no ischemia, No edema - Abdominal General gastrointestinal: soft, non-tender, non-distended, normal bowel sounds - Integumentary Integumentary: Present: clear, warm - Psychiatric Psychiatric: appropriate mood/affect, cooperative - Neurologic Neurologic: CNII-XII intact, moves all extremities Results - Labs CBC & Chem 7: 12/26/17 05:59 12/26/17 05:59 Labs: Laboratory Last Values WBC 7.1 K/mm3 (4.5-11.0) 12/26/17 05:59 RBC 2.01 M/mm3 (3.65-5.03) L 12/26/17 05:59 Hgb 6.6 gm/dl (11.8-15.2) L 12/26/17 05:59 Hct 18.6 % (35.5-45.6) L* 12/26/17 05:59 MCV 93 fl (84-94) 12/26/17 05:59 MCH 33 pg (28-32) H 12/26/17 05:59 MCHC 35 % (32-34) H 12/26/17 05:59 RDW 16.6 % (13.2-15.2) H 12/26/17 05:59 Plt Count 45 K/mm3 (140-440) L 12/26/17 05:59 Lymph % (Auto) 14.6 % (13.4-35.0) 12/26/17 05:59 [place] % (Auto) 10.3 % (0.0-7.3) H 12/26/17 05:59 Eos % (Auto) 1.9 % (0.0-4.3) 12/26/17 05:59 Baso % (Auto) 1.0 % (0.0-1.8) 12/26/17 05:59 Lymph # 1.0 K/mm3 (1.2-5.4) L 12/26/17 05:59 [place] # 0.7 K/mm3 (0.0-0.8) 12/26/17 05:59 Eos # 0.1 K/mm3 (0.0-0.4) 12/26/17 05:59 Baso # 0.1 K/mm3 (0.0-0.1) 12/26/17 05:59 Add Manual Diff Complete 12/12/17 19:50 Total Counted 100 12/12/17 19:50 Seg Neutrophils % 72.2 % (40.0-70.0) H 12/26/17 05:59 Seg Neuts % (Manual) 87.0 % (40.0-70.0) H 12/12/17 19:50 Band Neutrophils % 0 % 12/12/17 19:50 Lymphocytes % (Manual) 5.0 % (13.4-35.0) L 12/12/17 19:50 Reactive Lymphs % (Man) 0 % 12/12/17 19:50 Monocytes % (Manual) 6.0 % (0.0-7.3) 12/12/17 19:50 Eosinophils % (Manual) 2.0 % (0.0-4.3) 12/12/17 19:50 Basophils % (Manual) 0 % (0.0-1.8) 12/12/17 19:50 Metamyelocytes % 0 % 12/12/17 19:50 Myelocytes % 0 % 12/12/17 19:50 Promyelocytes % 0 % 12/12/17 19:50 Blast Cells % 0 % 12/12/17 19:50 Nucleated RBC % Not Reportable 12/12/17 19:50 Seg Neutrophils # 5.2 K/mm3 (1.8-7.7) 12/26/17 05:59 Seg Neutrophils # Man 4.9 K/mm3 (1.8-7.7) 12/12/17 19:50 Band Neutrophils # 0.0 K/mm3 12/12/17 19:50 Lymphocytes # (Manual) 0.3 K/mm3 (1.2-5.4) L 12/12/17 19:50 Abs React Lymphs (Man) 0.0 K/mm3 12/12/17 19:50 Monocytes # (Manual) 0.3 K/mm3 (0.0-0.8) 12/12/17 19:50 Eosinophils # (Manual) 0.1 K/mm3 (0.0-0.4) 12/12/17 19:50 Basophils # (Manual) 0.0 K/mm3 (0.0-0.1) 12/12/17 19:50 Metamyelocytes # 0.0 K/mm3 12/12/17 19:50 Myelocytes # 0.0 K/mm3 12/12/17 19:50 Promyelocytes # 0.0 K/mm3 12/12/17 19:50 Blast Cells # 0.0 K/mm3 12/12/17 19:50 WBC Morphology Not Reportable 12/12/17 19:50 Hypersegmented Neuts Not Reportable 12/12/17 19:50 Hyposegmented Neuts Not Reportable 12/12/17 19:50 Hypogranular Neuts Not Reportable 12/12/17 19:50 Smudge Cells Not Reportable 12/12/17 19:50 Toxic Granulation Not Reportable 12/12/17 19:50 Toxic Vacuolation Not Reportable 12/12/17 19:50 Dohle Bodies Not Reportable 12/12/17 19:50 Pelger-Huet Anomaly Not Reportable 12/12/17 19:50 Eriberto Rods Not Reportable 12/12/17 19:50 Platelet Estimate Appears decreased 12/12/17 19:50 Clumped Platelets Not Reportable 12/12/17 19:50 Plt Clumps, EDTA Not Reportable 12/12/17 19:50 Large Platelets 1+ 12/12/17 19:50 Giant Platelets Not Reportable 12/12/17 19:50 Platelet Satelliting Not Reportable 12/12/17 19:50 Plt Morphology Comment Not Reportable 12/12/17 19:50 RBC Morphology Not Reportable 12/12/17 19:50 Dimorphic RBCs Not Reportable 12/12/17 19:50 Polychromasia Not Reportable 12/12/17 19:50 Hypochromasia 1+ 12/12/17 19:50 Poikilocytosis Not Reportable 12/12/17 19:50 Anisocytosis Not Reportable 12/12/17 19:50 Microcytosis Not Reportable 12/12/17 19:50 Macrocytosis Not Reportable 12/12/17 19:50 Spherocytes Not Reportable 12/12/17 19:50 Pappenheimer Bodies Not Reportable 12/12/17 19:50 Sickle Cells Not Reportable 12/12/17 19:50 Target Cells Not Reportable 12/12/17 19:50 Tear Drop Cells Not Reportable 12/12/17 19:50 Ovalocytes Not Reportable 12/12/17 19:50 Helmet Cells Not Reportable 12/12/17 19:50 D[place]-Burrows Bodies Not Reportable 12/12/17 19:50 [place] Rings Not Reportable 12/12/17 19:50 [place] Cells 1+ 12/12/17 19:50 Bite Cells Not Reportable 12/12/17 19:50 Crenated Cell Not Reportable 12/12/17 19:50 Elliptocytes Not Reportable 12/12/17 19:50 Acanthocytes (Spur) 1+ 12/12/17 19:50 Rouleaux Not Reportable 12/12/17 19:50 Hemoglobin C Crystals Not Reportable 12/12/17 19:50 Schistocytes Not Reportable 12/12/17 19:50 Malaria parasites Not Reportable 12/12/17 19:50 ESR 18 mm/Hr (0-20) 12/12/17 19:50 [place] Bodies Not Reportable 12/12/17 19:50 Hem Pathologist Commnt No 12/12/17 19:50 PT 22.1 Sec. (12.2-14.9) H 12/25/17 05:27 INR 1.81 (0.87-1.13) H 12/25/17 05:27 APTT 41.5 Sec. (24.2-36.6) H 12/12/17 19:50 Fibrinogen 128 mg/dl (211-480) L 12/12/17 19:50 D-Dimer 1215.06 ng/mlDDU (0-234) H 12/12/17 19:50 Factor VIII:C Activity 178 % (50-180) 12/12/17 20:30 POC ABG pH 7.452 (7.35-7.45) H 12/12/17 09:13 POC ABG pCO2 22.2 (35-45) L 12/12/17 09:13 POC ABG pO2 75 (80-105) L 12/12/17 09:13 POC ABG HCO3 15.5 12/12/17 09:13 POC ABG Total CO2 16 12/12/17 09:13 POC ABG O2 Sat 96 12/12/17 09:13 POC ABG Base Excess -8 12/12/17 09:13 FiO2 21 % 12/12/17 09:13 Sodium 140 mmol/L (137-145) 12/26/17 05:59 Potassium 3.3 mmol/L (3.6-5.0) L 12/26/17 05:59 Chloride 99.1 mmol/L (98-107) 12/26/17 05:59 Carbon Dioxide 27 mmol/L (22-30) 12/26/17 05:59 Anion Gap 17 mmol/L 12/26/17 05:59 BUN 18 mg/dL (9-20) 12/26/17 05:59 Creatinine 3.8 mg/dL (0.8-1.5) H 12/26/17 05:59 Estimated GFR 20 ml/min 12/26/17 05:59 BUN/Creatinine Ratio 5 % 12/26/17 05:59 Glucose 110 mg/dL (75-100) H 12/26/17 05:59 POC Glucose 140 (70-105) H 12/25/17 12:24 Lactic Acid 3.90 mmol/L (0.7-2.0) H* 12/14/17 17:26 Calcium 8.4 mg/dL (8.4-10.2) 12/26/17 05:59 Phosphorus 2.40 mg/dL (2.5-4.5) L 12/26/17 05:59 Magnesium 1.40 mg/dL (1.7-2.3) L 12/26/17 05:59 Total Bilirubin 7.10 mg/dL (0.1-1.2) H 12/26/17 05:59 Direct Bilirubin 1.6 mg/dL (0-0.2) H 12/12/17 19:50 Indirect Bilirubin 2.5 mg/dL 12/12/17 19:50 AST 73 units/L (5-40) H 12/26/17 05:59 ALT 25 units/L (7-56) 12/26/17 05:59 Alkaline Phosphatase 69 units/L (35-129) 12/26/17 05:59 Ammonia 53.0 umol/L (25-60) 12/18/17 13:10 Lactate Dehydrogenase 213 units/L (91-180) H 12/12/17 19:50 Total Creatine Kinase 64 units/L (55-170) 12/10/17 23:14 C-Reactive Protein 0.30 mg/dL (0.00-1.30) 12/13/17 14:03 NT-Pro-B Natriuret Pep 9558 pg/mL (0-900) H 12/10/17 23:14 Total Protein 6.6 g/dL (6.3-8.2) 12/26/17 05:59 Albumin 3.5 g/dL (3.9-5) L 12/26/17 05:59 Albumin/Globulin Ratio 1.1 % 12/26/17 05:59 Lipase 7 units/L (13-60) L 12/10/17 23:14 Vitamin B12 1465 pg/mL (211-911) H 12/12/17 19:50 Folate 14.04 ng/mL (7.3-26.0) 12/12/17 19:50 TSH 2.560 mlU/mL (0.270-4.200) 12/16/17 12:37 Total Cortisol 8.6 mcg/dL () 12/16/17 12:37 Urine Color Yellow (Yellow) 12/10/17 23:05 Urine Turbidity Clear (Clear) 12/10/17 23:05 Urine pH 5.0 (5.0-7.0) 12/10/17 23:05 Ur Specific [place] 1.013 (1.003-1.030) 12/10/17 23:05 Urine Protein <15 mg/dl mg/dL (Negative) 12/10/17 23:05 Urine Glucose (UA) Neg mg/dL (Negative) 12/10/17 23:05 Urine Ketones Neg mg/dL (Negative) 12/10/17 23:05 Urine Blood Neg (Negative) 12/10/17 23:05 Urine Nitrite Neg (Negative) 12/10/17 23:05 Ur Reducing Substances Not Reportable 12/10/17 23:05 Urine Bilirubin Neg (Negative) 12/10/17 23:05 Urine Ictotest Not Reportable 12/10/17 23:05 Urine Urobilinogen < 2.0 mg/dL (<2.0) 12/10/17 23:05 Ur Leukocyte Esterase Sm (Negative) 12/10/17 23:05 Urine WBC (Auto) 10.0 /HPF (0.0-6.0) H 12/10/17 23:05 Urine RBC (Auto) 4.0 /HPF (0.0-6.0) 12/10/17 23:05 U Epithel Cells (Auto) < 1.0 /HPF (0-13.0) 12/10/17 23:05 Urine Mucus Few /HPF 12/10/17 23:05 Urine Total Volume 250 12/14/17 Unknown Urine Creatinine 122.5 mg/dL (0.1-20.0) H 12/14/17 Unknown Ur Creatinine 24 Hour 0.3 (0.8-2.8) L 12/14/17 Unknown Digoxin 0.4 ng/mL (0.9-2.0) L 12/21/17 05:26 Hepatitis A IgM Ab Non-reactive (NonReactive) 12/12/17 19:50 Hep Bs Antigen Non-reactive (Negative) 12/12/17 19:50 Hep B Core IgM Ab Non-reactive (NonReactive) 12/12/17 19:50 Hepatitis C Antibody Non-reactive (NonReactive) 12/12/17 19:50 Miscellaneous Test Flexitest 1 12/12/17 06:42 Blood Type A NEGATIVE 12/24/17 06:25 Antibody Screen Negative 12/24/17 06:25 Direct Antiglob Test Negative 12/12/17 20:41 JOANNE, Poly Interpret Negative 12/12/17 20:41 Crossmatch See Detail 12/24/17 06:25
[2017-12-26] MEDS ORDERED: MAGNESIUM SULFATE 3 GM in NACL 0.9% 100 ML IV ONE (11:56)
[2017-12-26] MEDS ORDERED: XYLOCAINE 2% INFILTRATI ONE (12:31)
[2017-12-26] MEDS ORDERED: DIPRIVAN 10 MG/ML IV ONE (12:31)
--- NOTE | 2017-12-26 12:42 | Anesthesia Day of Surgery ---
Anesthesia Day of Surgery - Day of Surgery Patient Examined: Yes Patient H&P Reviewed: Yes Patient is NPO: Yes Beta Blockers: No
--- NOTE | 2017-12-26 12:43 | Anesthesia Consultation ---
Anesthesia Consult and Med Hx - Airway Anesthetic Teeth Evaluation: Poor, Dentures ROM Head & Neck: Adequate Mental/Hyoid Distance: Adequate Mallampati Class: Class III Intubation Access Assessment: Probably Good - Pulmonary Exam CTA: Yes - Cardiac Exam Cardiac Exam: No Murmur - Pre-Operative Health Status ASA Pre-Surgery Classification: ASA3 Proposed Anesthetic Plan: MAC - Pulmonary Hx Smoking: Yes Hx Asthma: No COPD: No Hx Pneumonia: No - Cardiovascular System Hx Hypertension: Yes - Central Nervous System Hx Seizures: Yes - Endocrine Hx End Stage Renal Disease: No Hx Cirrhosis: Yes Hx Liver Disease: Yes - Hematic Hx Anemia: Yes - Other Systems Hx Cancer: No
--- NOTE | 2017-12-26 13:10 | Post Operative Note ---
Pre-op diagnosis: Anemia Post-op diagnosis: other (Varices, portal gastropathy, no bleeding) Findings: 1. Two columns of Grade I Esophageal varices, not amenable to banding. 2. No gastric varices, but portal gastropathy is present. 3. No blood/clots in the upper GI tract. Procedure: EGD Anesthesia: MAC Surgeon: KEIKO HAIR Estimated blood loss: none Pathology: none Specimen disposition: other (N/A) Condition: stable Disposition: floor (Recs: 1. No lesions seen to explain anema (?combined kidney/ liver disease; ?hemolysis) and no hematochezia to suggest colonic source. 2. Continue current medications with protonix; doubt his BP will tolerate a beta alejo. 3. May benefit from procrit at dialysis. Will check B12 as well as iron stores again.)
[2017-12-26] MEDS ORDERED: PROCRIT IV PRN (13:51)
--- NOTE | 2017-12-26 13:53 | Progress Note ---
Assessment and Plan Impression: * Oliguric CARMEN secondary to ATN vs HRS --s/p permcath placement 12/17/17 and initiation of dialysis * Sepsis * Severe anemia secondary to ABL * Rectal bleeding * Cirrhosis w/ esophageal varices * Hyperbilirubinemia * Pyuria * Metabolic acidosis, resolved * Hyperkalemia, resolved Plan: * Patient remains oliguric w/o evidence of recovery. Continue dialysis - MWF schedule * Empiric abx for SBP and UTI * Transfusion pRBC per primary team * Consultants' recommendations reviewed, s/p egd * prn prbcs, epogen with hd * Medical management of electrolytes * Avoid potential nephrotoxic agents * Dose medications for renal function * Outpatient HD MWF at [facility] arranged Subjective Date of service: 12/26/17 Principal diagnosis: CARMEN on CKD; Acute Encephalopathy; Sepsis Syndrome; Anemia Interval history: in bed, confused, no acute events Objective - Exam Narrative Exam: General: well-nourished, well-developed, no acute distress Head: Normocephalic, atraumatic Eyes: normal sclera ENT: Mucous membranes are pale and dry Neck: No neck stiffness, no cervical adenopathy Respiratory: Breath sounds equal bilaterally, no wheezing, rales, or rhonchi Cardio: S1 and S2 present, no murmurs, rubs, gallops, capillary refill is delayed Abdomen: Normoactive bowel sounds, soft abdomen, generalized tenderness to palpation present, no rigidity, no guarding or rebound tenderness Chest WALL/Back: No tenderness to palpation of the chest wall, no CVA tenderness with percussion Musc: No pitting edema Skin: No rash Neuro: no facial drooping, normal speech Psych: Normal affect - Vital Signs Vital signs: Vital Signs - 12hr 12/26/17 12/26/17 12/26/17 04:05 07:26 09:32 Temperature 97.0 F L 98.3 F Pulse Rate 57 L 58 L 58 L Respiratory 17 16 Rate Blood Pressure 100/48 85/47 85/47 O2 Sat by Pulse 100 93 Oximetry 12/26/17 12/26/17 12/26/17 10:00 11:45 12:22 Temperature 98.4 F 98.4 F Pulse Rate 54 L 58 L 58 L Respiratory 14 14 Rate Blood Pressure 88/45 88/45 O2 Sat by Pulse 0 L 100 Oximetry - Lab 12/26/17 05:59 12/26/17 05:59 Most recent lab results Calcium 8.4 mg/dL (8.4-10.2) 12/26/17 05:59 Phosphorus 2.40 mg/dL (2.5-4.5) L 12/26/17 05:59 Magnesium 1.40 mg/dL (1.7-2.3) L 12/26/17 05:59 Urine Creatinine 122.5 mg/dL (0.1-20.0) H 12/14/17 Unknown
--- NOTE | 2017-12-26 14:07 | Operative Report ---
PROCEDURE PERFORMED: Esophagogastroduodenoscopy. PREOPERATIVE DIAGNOSES: Anemia and cirrhosis. POSTOPERATIVE DIAGNOSES: Esophageal varices, portal gastropathy, no obvious blood loss. ENDOSCOPIST: Favio Zayas MD INSTRUMENT: Soleil Insulation video endoscope. MEDICATIONS: MAC anesthesia by Anesthesia Services. COMPLICATIONS: No apparent complications. ESTIMATED BLOOD LOSS: None. SPECIMENS: None. IMPLANTS: None. CONDITION AT COMPLETION: Stable. TECHNIQUE: The patient was informed of the risks and benefits of the procedure. He signed the informed consent to proceed. He was placed in left lateral decubitus position. The above sedative medications were given. His vital signs remained stable throughout the procedure. The instrument was advanced from the mouth to the second portion of the duodenum under direct visualization. At that point, the bowel was insufflated and the endoscope was slowly withdrawn. FINDINGS: 1. Normal duodenum. 2. Mild portal gastropathy, but no evidence of gastric varices. 3. Two columns of grade 1 esophageal varices from the gastroesophageal junction to the lower third of the esophagus, mild and not amenable to endoscopic banding. 4. No evidence of blood or blood clots in the upper GI tract. RECOMMENDATIONS: 1. No lesions were seen to explain the patient's anemia and there is no hematochezia to suggest a colonic source. 2. I would continue with current medications of Protonix, but I doubt his blood pressure will tolerate a beta alejo. 3. The patient may benefit from Procrit at hemodialysis, but we will defer that to the Nephrology service. 4. We will check a B12 level as well as check iron levels again. 5. Okay to resume regular diet. JOB# [id number] SAMINA/NTS
--- NOTE | 2017-12-26 18:35 | Progress Note ---
Assessment and Plan - Patient Problems (1) Acute hepatic encephalopathy Current Visit: Yes Status: Acute Plan to address problem: see orders. continue with lactulose, recheck ammonia level. continue same. supportive. (2) Anemia Current Visit: Yes Status: Acute Plan to address problem: see orders. Replacement transfusion, if hgb less than 7.0 same as above. see notes above. same as above, stable. see notes above. (3) Renal failure Current Visit: Yes Status: Acute Plan to address problem: follow renal service. same as above. (4) Liver failure Current Visit: Yes Status: Acute Plan to address problem: Hepato-renal syndrome, continue with HD. Subjective Date of service: 12/26/17 Principal diagnosis: CARMEN on CKD; Acute Encephalopathy; Sepsis Syndrome; Anemia Interval history: Patient seen, restingm labs/notes reviewed. agree with management so far.labs showing consumptive coagulopathy. Patient seen, resting in bed, records/labs reviewed.PLT dropped some.Still no active bleeding. Patient seen/examined, records/labs / notes reviewed, hgb low at 6.9, will rec replacement transfusion,with HD tomorrow if planned to proceed with HD. Patient seen, resting in bed, labs/records reviewed, Hgb still low, transfusion written for today. Patient seen, resting in bed, labs reviewed, plt 57,000, rectal bleeding resolved, will continue to monitor patient/labs with you, and intervene with replacement transfusion, when needed. Patient seen, resting in bed, NAD, records reviewed. Patient seen, resting in bed, labs/records reviewed, no new issues, the latest plt fair, no any sign of bleeding. Patient seen, resting in bed, records reviewed, PLT 57,000, no bleeding. Patient seen, resting in bed, labs reviewed, hgb dropped drastically, due to rectal bleed.He is s/p blood transfusion. he is expected to continue to drop his hgb, as long as he continues to bleed. Will re check labs in am. Thrombocytopenia at above 20,000. will continue to monitor. Patient seen, resting in bed, labs reviewed, ,he will need some PLT+ FFP, especially if there is any plans for any procedure, otherwise, can watch if any active bleeding, or plt 20,000 or less. patient seen/examined, resting in bed, labs reviewed, s/p GI scope, and blood transfusion, Plt replacement ,to follow. Objective - Constitutional Vitals: Vital Signs - 12hr 12/26/17 12/26/17 12/26/17 07:26 09:32 10:00 Temperature 98.3 F Pulse Rate 58 L 58 L 54 L Respiratory 16 Rate Blood Pressure 85/47 85/47 O2 Sat by Pulse 93 Oximetry 12/26/17 12/26/17 12/26/17 11:45 12:22 13:09 Temperature 98.4 F 98.4 F 98.5 F Pulse Rate 58 L 58 L 68 Respiratory 14 14 16 Rate Blood Pressure 88/45 88/45 82/40 O2 Sat by Pulse 0 L 100 0 L Oximetry 12/26/17 12/26/17 12/26/17 13:24 13:39 13:45 Temperature Pulse Rate 65 76 Respiratory 16 21 Rate Blood Pressure 79/44 79/47 88/47 O2 Sat by Pulse Oximetry 12/26/17 12/26/17 12/26/17 15:53 16:00 16:25 Temperature 98.3 F 98.1 F 98.1 F Pulse Rate 61 61 70 Respiratory 17 18 18 Rate Blood Pressure 82/43 83/44 86/48 O2 Sat by Pulse 99 99 97 Oximetry 12/26/17 12/26/17 12/26/17 16:39 16:40 16:59 Temperature 98.1 F Pulse Rate 70 60 60 Respiratory 18 18 18 Rate Blood Pressure 86/48 89/51 89/51 O2 Sat by Pulse 97 97 97 Oximetry 12/26/17 12/26/17 17:10 17:40 Temperature 98.2 F 98.2 F Pulse Rate 59 L 59 L Respiratory 18 18 Rate Blood Pressure 81/44 81/44 O2 Sat by Pulse 99 99 Oximetry General appearance: Present: mild distress - EENT Eyes: PERRL, EOM intact ENT: hearing intact, clear oral mucosa Ears: bilateral: normal - Neck Neck: supple, normal ROM - Respiratory Respiratory effort: normal Respiratory: bilateral: CTA - Breasts Breasts: deferred - Cardiovascular Rhythm: regular Heart Sounds: Present: S1 & S2. Absent: gallop, rub Extremities: pulses intact, No edema, normal color, Full ROM - Gastrointestinal General gastrointestinal: Present: soft, non-tender, non-distended, normal bowel sounds Rectal Exam: deferred - Genitourinary Male genitourinary: deferred - Integumentary Integumentary: clear, warm, dry - Musculoskeletal Musculoskeletal: 1, strength equal bilaterally - Neurologic Neurologic: moves all extremities - Psychiatric Psychiatric: appropriate mood/affect - Labs CBC & Chem 7: 12/26/17 05:59 12/26/17 05:59 Labs: Abnormal lab results 12/24/17 12/25/17 12/26/17 Range/Units 06:25 12:24 05:59 RBC 2.01 L (3.65-5.03) M/mm3 Hgb 6.6 L (11.8-15.2) gm/dl Hct 18.6 L* (35.5-45.6) % MCH 33 H (28-32) pg MCHC 35 H (32-34) % RDW 16.6 H (13.2-15.2) % Plt Count 45 L (140-440) K/mm3 [place] % (Auto) 10.3 H (0.0-7.3) % Lymph # 1.0 L (1.2-5.4) K/mm3 Seg Neutrophils % 72.2 H (40.0-70.0) % Potassium (3.6-5.0) mmol/L Creatinine (0.8-1.5) mg/dL Glucose (75-100) mg/dL POC Glucose 140 H (70-105) Phosphorus (2.5-4.5) mg/dL Magnesium (1.7-2.3) mg/dL Total Bilirubin (0.1-1.2) mg/dL AST (5-40) units/L Albumin (3.9-5) g/dL Crossmatch See Detail 12/26/17 Range/Units 05:59 RBC (3.65-5.03) M/mm3 Hgb (11.8-15.2) gm/dl Hct (35.5-45.6) % MCH (28-32) pg MCHC (32-34) % RDW (13.2-15.2) % Plt Count (140-440) K/mm3 [place] % (Auto) (0.0-7.3) % Lymph # (1.2-5.4) K/mm3 Seg Neutrophils % (40.0-70.0) % Potassium 3.3 L (3.6-5.0) mmol/L Creatinine 3.8 H (0.8-1.5) mg/dL Glucose 110 H (75-100) mg/dL POC Glucose (70-105) Phosphorus 2.40 L (2.5-4.5) mg/dL Magnesium 1.40 L (1.7-2.3) mg/dL Total Bilirubin 7.10 H (0.1-1.2) mg/dL AST 73 H (5-40) units/L Albumin 3.5 L (3.9-5) g/dL Crossmatch
[2017-12-26] MEDS ORDERED: NACL 0.9 (PRIMING MACHINE ONLY DIALYSIS) MC ONE (20:22)
[2017-12-26] MEDS: ALBURX 25% (ALBUMIN) IV PRN (20:37)
[2017-12-26] MEDS ORDERED: PROCRIT IV ONE (22:00)
[2017-12-27 07:13] LABS: Basophils % (Auto) 0.4 % (0.0-1.8); Eosinophils # (Auto) 0.1 K/mm3 (0.0-0.4); Eosinophils % (Auto) 1.4 % (0.0-4.3); Hematocrit 23.2 % (35.5-45.6); Hemoglobin 8.2 gm/dl (11.8-15.2); Lymphocytes # (Auto) 0.7 K/mm3 (1.2-5.4); Lymphocytes % (Auto) 11.6 % (13.4-35.0); Mean Corpuscular HGB Conc 35 % (32-34); Mean Corpuscular Hemoglobin 32 pg (28-32); Mean Corpuscular Volume 92 fl (84-94); Monocytes # (Auto) 0.7 K/mm3 (0.0-0.8); Monocytes % (Auto) 11.2 % (0.0-7.3); Red Blood Count 2.52 M/mm3 (3.65-5.03); Red Cell Distribution Width 15.3 % (13.2-15.2)
[2017-12-27 07:26] LABS: Platelet Count 39 K/mm3 (140-440)
[2017-12-27 07:42] LABS: Albumin 3.7 g/dL (3.9-5); Calcium 8.1 mg/dL (8.4-10.2)
[2017-12-27] MEDS: PROAMATINE PO SCH ×3 (08:43→20:35)
--- NOTE | 2017-12-27 10:03 | Progress Note ---
Assessment and Plan Impression: * Oliguric CARMEN secondary to ATN vs HRS --s/p permcath placement 12/17/17 and initiation of dialysis * Sepsis * Severe anemia secondary to ABL * Rectal bleeding * Cirrhosis w/ esophageal varices * Hyperbilirubinemia * Pyuria * Metabolic acidosis, resolved * Hyperkalemia, resolved Plan: * Patient remains oliguric w/o evidence of recovery. Continue dialysis - MWF schedule * Empiric abx for SBP and UTI * Transfusion pRBC per primary team * Consultants' recommendations reviewed, s/p egd * prn prbcs, epogen with hd * Medical management of electrolytes * Avoid potential nephrotoxic agents * Dose medications for renal function * Outpatient HD MWF at [facility] arranged Subjective Date of service: 12/27/17 Principal diagnosis: CARMEN on CKD; Acute Encephalopathy; Sepsis Syndrome; Anemia Interval history: in bed, confused, no acute events Objective - Exam Narrative Exam: General: well-nourished, well-developed, no acute distress Head: Normocephalic, atraumatic Eyes: normal sclera ENT: Mucous membranes are pale and dry Neck: No neck stiffness, no cervical adenopathy Respiratory: Breath sounds equal bilaterally, no wheezing, rales, or rhonchi Cardio: S1 and S2 present, no murmurs, rubs, gallops, capillary refill is delayed Abdomen: Normoactive bowel sounds, soft abdomen, generalized tenderness to palpation present, no rigidity, no guarding or rebound tenderness Chest WALL/Back: No tenderness to palpation of the chest wall, no CVA tenderness with percussion Musc: No pitting edema Skin: No rash Neuro: no facial drooping, normal speech Psych: Normal affect - Vital Signs Vital signs: Vital Signs - 12hr 12/26/17 12/26/17 12/27/17 23:42 23:50 04:00 Temperature Pulse Rate 47 L 63 Pulse Rate [ 77 Apical] Respiratory 18 Rate Blood Pressure 91/50 Blood Pressure [Left] O2 Sat by Pulse 93 Oximetry 12/27/17 12/27/17 04:53 08:58 Temperature 98.6 F Pulse Rate 61 64 Pulse Rate [ Apical] Respiratory 18 Rate Blood Pressure Blood Pressure 88/48 [Left] O2 Sat by Pulse 97 Oximetry - Lab 12/27/17 06:34 12/27/17 06:34 Most recent lab results Calcium 8.1 mg/dL (8.4-10.2) L 12/27/17 06:34 Phosphorus 2.40 mg/dL (2.5-4.5) L 12/26/17 05:59 Magnesium 1.40 mg/dL (1.7-2.3) L 12/26/17 05:59 Urine Creatinine 122.5 mg/dL (0.1-20.0) H 12/14/17 Unknown
--- NOTE | 2017-12-27 10:45 | Progress Note ---
Assessment and Plan Anemia s/p transfusion of PRBCs Thromocytopenia, chronic Chronic renal failure initiated on dialysis Hypotension -on midodrine therapy Hx of Cirrhosis with bleeding esophageal varices requiring TIPS 11/2016 Paroxysmal Atrial flutter seen on telemetry currently in sinus rhythm; on beta blockers for suppression normal TSH patient is considered not a candidate for anticoagulation given underlying liver cirrhosis. Left pleural effusion Echocardiogram shows mild cardiomyopathy with left ventricular ejection fraction 45-50%. There is mild to moderate tricuspid regurgitation, pulmonary artery pressure is 31, and there is a left pleural effusion. Recommendations: Continue beta alejo therapy for suppression of paroxysmal atrial fibrillation. Otherwise, conservative cardiac management. Subjective Date of service: 12/27/17 Principal diagnosis: CARMEN on CKD; Acute Encephalopathy; Sepsis Syndrome; Anemia Interval history: Patient has no complaints. PT at bedside. Stable sinus rhythm on telemetry. Objective Vital Signs Temp Pulse Pulse Resp BP BP Pulse Ox 12/27/17 08:58 64 12/27/17 07:50 98.3 F 61 20 100/62 97 12/27/17 04:53 98.6 F 61 18 88/48 97 12/27/17 04:00 63 12/26/17 23:50 77 18 93 12/26/17 23:42 47 L 91/50 12/26/17 23:32 98.4 F 44 L 18 91/50 86 12/26/17 22:00 98.0 F 58 L 16 80/49 12/26/17 21:45 59 L 77/45 12/26/17 21:30 58 L 78/43 12/26/17 21:15 59 L 78/44 12/26/17 21:00 57 L 75/48 12/26/17 20:45 58 L 76/41 12/26/17 20:30 61 76/45 12/26/17 20:15 57 L 68/44 12/26/17 20:00 59 L 71/45 12/26/17 19:45 55 L 74/48 12/26/17 19:40 98 F 55 L 16 74/48 12/26/17 19:37 98.0 F 59 L 16 76/51 12/26/17 19:30 59 L 76/57 12/26/17 19:25 98.0 F 56 L 16 74/47 12/26/17 19:15 98.0 F 56 L 16 74/47 12/26/17 19:00 55 L 74/46 12/26/17 18:45 98.0 F 56 L 16 77/47 12/26/17 17:40 98.2 F 59 L 18 81/44 99 12/26/17 17:10 98.2 F 59 L 18 81/44 99 12/26/17 16:59 60 18 89/51 97 12/26/17 16:40 98.1 F 60 18 89/51 97 12/26/17 16:39 70 18 86/48 97 12/26/17 16:25 98.1 F 70 18 86/48 97 12/26/17 16:00 98.1 F 61 18 83/44 99 12/26/17 15:53 98.3 F 61 17 82/43 99 12/26/17 13:45 88/47 12/26/17 13:39 76 21 79/47 12/26/17 13:24 65 16 79/44 12/26/17 13:09 98.5 F 68 16 82/40 0 L 12/26/17 12:22 98.4 F 58 L 14 88/45 100 12/26/17 11:45 98.4 F 58 L 14 88/45 0 L - Physical Examination General: No Apparent Distress HEENT: Positive: PERRL Cardiac: Positive: Reg Rate and Rhythm Neuro: Positive: Weakness Extremities: Absent: edema - Labs and Meds Cardiac Enzymes 12/27/17 Range/Units 06:34 AST 89 H (5-40) units/L CBC 12/27/17 Range/Units 06:34 WBC 6.0 (4.5-11.0) K/mm3 RBC 2.52 L (3.65-5.03) M/mm3 Hgb 8.2 L (11.8-15.2) gm/dl Hct 23.2 L (35.5-45.6) % Plt Count 39 L (140-440) K/mm3 Lymph # 0.7 L (1.2-5.4) K/mm3 [place] # 0.7 (0.0-0.8) K/mm3 Eos # 0.1 (0.0-0.4) K/mm3 Baso # 0.0 (0.0-0.1) K/mm3 Comprehensive Metabolic Panel 12/27/17 Range/Units 06:34 Sodium 139 (137-145) mmol/L Potassium 3.3 L (3.6-5.0) mmol/L Chloride 95.4 L (98-107) mmol/L Carbon Dioxide 24 (22-30) mmol/L BUN 11 (9-20) mg/dL Creatinine 2.6 H (0.8-1.5) mg/dL Glucose 112 H (75-100) mg/dL Calcium 8.1 L (8.4-10.2) mg/dL AST 89 H (5-40) units/L ALT 28 (7-56) units/L Alkaline Phosphatase 70 (35-129) units/L Total Protein 6.6 (6.3-8.2) g/dL Albumin 3.7 L (3.9-5) g/dL - Allied health notes Allied health notes reviewed: RT
[2017-12-27] MEDS: LOPRESSOR PO SCH ×2 (10:55→22:11)
[2017-12-27] MEDS: PROTONIX FEEDTUBE SCH (10:55)
[2017-12-27] MEDS: CEPHULAC PO SCH ×2 (10:55→22:11)
[2017-12-27] MEDS: XIFAXAN PO SCH ×2 (10:56→22:11)
[2017-12-27] MEDS: THERAGRAN-M Tab PO SCH (10:56)
--- NOTE | 2017-12-27 11:10 | Gastroenterology Progress Note ---
Assessment and Plan 1.anemia 2.hx of cirrhosis with esophageal varices -INR 1.81 -HGB 8.2- s/p transfusion of 2 units PRBCs yesterday -continue to monitor H/H and transfuse as needed -no active signs of bleeding overnight or this am -s/p EGD yesterday that revealed two columns of Grade I esophageal varices (not amenable to banding) and portal gastropathy but no gastric varices or blood/ clots in upper GI tract -etiology-possibly due to combined kidney/liver disease (hemolysis?)-no hematochezia to suggest colonic source -may benefit from procrit at dialysis -continue PPI and supportive care -further recommendations to follow Subjective Date of service: 12/27/17 Principal diagnosis: anemia Interval history: Patient sitting up in bed eating a sandwich this am w/o distress. No active signs of bleeding overnight or this am. Denies abd pain or N/V. Objective - Constitutional Vitals: Temp Pulse Resp BP Pulse Ox 98.3 F 64 20 100/62 97 12/27/17 07:50 12/27/17 08:58 12/27/17 07:50 12/27/17 07:50 12/27/17 07:50 General appearance: no acute distress - Respiratory Respiratory: bilateral: CTA (anterior) - Cardiovascular Rhythm: regular Heart Sounds: Present: S1 & S2 - Gastrointestinal General gastrointestinal: Present: soft, non-tender, non-distended, normal bowel sounds - Labs CBC & Chem 7: 12/27/17 06:34 12/27/17 06:34 Labs: Laboratory Results - last 24 hr 12/24/17 12/27/17 12/27/17 06:25 06:34 06:34 WBC 6.0 RBC 2.52 L Hgb 8.2 L Hct 23.2 L MCV 92 MCH 32 MCHC 35 H RDW 15.3 H Plt Count 39 L Lymph % (Auto) 11.6 L [place] % (Auto) 11.2 H Eos % (Auto) 1.4 Baso % (Auto) 0.4 Lymph # 0.7 L [place] # 0.7 Eos # 0.1 Baso # 0.0 Seg Neutrophils % 75.4 H Seg Neutrophils # 4.5 Sodium 139 Potassium 3.3 L Chloride 95.4 L Carbon Dioxide 24 Anion Gap 23 BUN 11 Creatinine 2.6 H Estimated GFR 30 BUN/Creatinine Ratio 4 Glucose 112 H Calcium 8.1 L Ferritin Total Bilirubin 8.00 H AST 89 H ALT 28 Alkaline Phosphatase 70 Total Protein 6.6 Albumin 3.7 L Albumin/Globulin Ratio 1.3 Blood Type A NEGATIVE Antibody Screen Negative Crossmatch See Detail 12/27/17 06:34 WBC RBC Hgb Hct MCV MCH MCHC RDW Plt Count Lymph % (Auto) [place] % (Auto) Eos % (Auto) Baso % (Auto) Lymph # [place] # Eos # Baso # Seg Neutrophils % Seg Neutrophils # Sodium Potassium Chloride Carbon Dioxide Anion Gap BUN Creatinine Estimated GFR BUN/Creatinine Ratio Glucose Calcium Ferritin > 2000.0 H Total Bilirubin AST ALT Alkaline Phosphatase Total Protein Albumin Albumin/Globulin Ratio Blood Type Antibody Screen Crossmatch
--- NOTE | 2017-12-27 11:25 | Progress Note ---
Assessment and Plan - Patient Problems (1) Acute hepatic encephalopathy Current Visit: Yes Status: Acute Plan to address problem: see orders. continue with lactulose, recheck ammonia level. continue same. supportive. (2) Anemia Current Visit: Yes Status: Acute Plan to address problem: see orders. Replacement transfusion, if hgb less than 7.0 same as above. see notes above. same as above, stable. see notes above. (3) Renal failure Current Visit: Yes Status: Acute Plan to address problem: follow renal service. same as above. (4) Liver failure Current Visit: Yes Status: Acute Plan to address problem: Hepato-renal syndrome, continue with HD. Subjective Date of service: 12/27/17 Principal diagnosis: anemia Interval history: Patient seen, restingm labs/notes reviewed. agree with management so far.labs showing consumptive coagulopathy. Patient seen, resting in bed, records/labs reviewed.PLT dropped some.Still no active bleeding. Patient seen/examined, records/labs / notes reviewed, hgb low at 6.9, will rec replacement transfusion,with HD tomorrow if planned to proceed with HD. Patient seen, resting in bed, labs/records reviewed, Hgb still low, transfusion written for today. Patient seen, resting in bed, labs reviewed, plt 57,000, rectal bleeding resolved, will continue to monitor patient/labs with you, and intervene with replacement transfusion, when needed. Patient seen, resting in bed, NAD, records reviewed. Patient seen, resting in bed, labs/records reviewed, no new issues, the latest plt fair, no any sign of bleeding. Patient seen, resting in bed, records reviewed, PLT 57,000, no bleeding. Patient seen, resting in bed, labs reviewed, hgb dropped drastically, due to rectal bleed.He is s/p blood transfusion. he is expected to continue to drop his hgb, as long as he continues to bleed. Will re check labs in am. Thrombocytopenia at above 20,000. will continue to monitor. Patient seen, resting in bed, labs reviewed, ,he will need some PLT+ FFP, especially if there is any plans for any procedure, otherwise, can watch if any active bleeding, or plt 20,000 or less. patient seen/examined, resting in bed, labs reviewed, s/p GI scope, and blood transfusion, Plt replacement ,to follow. patient seen, resting in bed, labs, reviewed, plt 39,000, replacement not given yesterday? Objective - Constitutional Vitals: Vital Signs - 12hr 12/26/17 12/26/17 12/26/17 23:32 23:42 23:50 Temperature 98.4 F Pulse Rate 44 L 47 L Pulse Rate [ 77 Apical] Respiratory 18 18 Rate Blood Pressure 91/50 91/50 Blood Pressure [Left] O2 Sat by Pulse 86 93 Oximetry 12/27/17 12/27/17 12/27/17 04:00 04:53 07:50 Temperature 98.6 F 98.3 F Pulse Rate 63 61 61 Pulse Rate [ Apical] Respiratory 18 20 Rate Blood Pressure 100/62 Blood Pressure 88/48 [Left] O2 Sat by Pulse 97 97 Oximetry 12/27/17 08:58 Temperature Pulse Rate 64 Pulse Rate [ Apical] Respiratory Rate Blood Pressure Blood Pressure [Left] O2 Sat by Pulse Oximetry General appearance: Present: mild distress - EENT Eyes: PERRL, EOM intact ENT: hearing intact, clear oral mucosa Ears: bilateral: normal - Neck Neck: supple, normal ROM - Respiratory Respiratory effort: normal Respiratory: bilateral: CTA - Breasts Breasts: deferred - Cardiovascular Rhythm: regular Heart Sounds: Present: S1 & S2. Absent: gallop, rub Extremities: pulses intact, No edema, normal color, Full ROM - Gastrointestinal General gastrointestinal: Present: soft, non-tender, non-distended, normal bowel sounds Rectal Exam: deferred - Genitourinary Male genitourinary: deferred - Integumentary Integumentary: clear, warm, dry - Musculoskeletal Musculoskeletal: 1, strength equal bilaterally - Neurologic Neurologic: moves all extremities - Psychiatric Psychiatric: appropriate mood/affect - Labs CBC & Chem 7: 12/27/17 06:34 12/27/17 06:34 Labs: Abnormal lab results 12/24/17 12/27/17 12/27/17 Range/Units 06:25 06:34 06:34 RBC 2.52 L (3.65-5.03) M/mm3 Hgb 8.2 L (11.8-15.2) gm/dl Hct 23.2 L (35.5-45.6) % MCHC 35 H (32-34) % RDW 15.3 H (13.2-15.2) % Plt Count 39 L (140-440) K/mm3 Lymph % (Auto) 11.6 L (13.4-35.0) % [place] % (Auto) 11.2 H (0.0-7.3) % Lymph # 0.7 L (1.2-5.4) K/mm3 Seg Neutrophils % 75.4 H (40.0-70.0) % Potassium 3.3 L (3.6-5.0) mmol/L Chloride 95.4 L (98-107) mmol/L Creatinine 2.6 H (0.8-1.5) mg/dL Glucose 112 H (75-100) mg/dL Calcium 8.1 L (8.4-10.2) mg/dL Ferritin (13.0-400.0) ng/mL Total Bilirubin 8.00 H (0.1-1.2) mg/dL AST 89 H (5-40) units/L Albumin 3.7 L (3.9-5) g/dL Crossmatch See Detail 12/27/17 Range/Units 06:34 RBC (3.65-5.03) M/mm3 Hgb (11.8-15.2) gm/dl Hct (35.5-45.6) % MCHC (32-34) % RDW (13.2-15.2) % Plt Count (140-440) K/mm3 Lymph % (Auto) (13.4-35.0) % [place] % (Auto) (0.0-7.3) % Lymph # (1.2-5.4) K/mm3 Seg Neutrophils % (40.0-70.0) % Potassium (3.6-5.0) mmol/L Chloride (98-107) mmol/L Creatinine (0.8-1.5) mg/dL Glucose (75-100) mg/dL Calcium (8.4-10.2) mg/dL Ferritin > 2000.0 H (13.0-400.0) ng/mL Total Bilirubin (0.1-1.2) mg/dL AST (5-40) units/L Albumin (3.9-5) g/dL Crossmatch
--- NOTE | 2017-12-27 11:34 | Progress Note ---
Assessment and Plan Sepsis, possibly SBP Acute encephalopathy Severe anemia Lactic acidosis, multifactorial Cirrhosis with esophageal varices Rectal bleeding Coagulopathy Metabolic acidosis, multifactorial Respiratory alkalosis Nonoliguric CARMEN secondary to prerenal azotemia due to hypoperfusion ATN vs HRS Moderate protein calorie malnutrition - Thoracentesis ordered - HD/UF per nephrology prescription ( should also reduce pulmonary volume overload) - continue conservative volume management at this point now off vasopressors - continue prn H&H; Transfuse PRBC's for Hb < 7.0 (or as per technology officer) - prn analgesia - 2D ECHO with EF 40-45%; no overt pulm HTN - s/p antibiotic course for sepsis - continue Aspiration precautions - enteral nutrition as tolerated (s/p small bowel feeding tube) - continue chronic home medications, including rifaximin and midodrine - Avoid nephrotoxics and adjust all medications for GFR - GI evaluation ongoing; octreotide if signs of active bleeding; continue lactulose but frequency reduced to bid - continue therapeutic PPI - paracentesis per GI recs - Follow up cultures (NGTD) - SCDs for VTE prophylaxis in view of GIB and coagulopathy - Supportive transfusions - Nutrition consult placed - PT/OT consult placed - continue to monitor closely on telemetry ..... 25' Subjective Date of service: 12/27/17 Principal diagnosis: CARMEN on CKD; Acute Encephalopathy; Sepsis Syndrome; Anemia Interval history: Patient is seen today for: CARMEN on CKD; Acute Encephalopathy; Sepsis Syndrome; Anemia Seen and examined at bedside; 24hour events reviewed; nursing and respiratory care staff consulted; no adverse overnight events reported to me; resting in bed ; persistent right pleural effusion; will send for thoracentesis Objective Vital Signs - 12hr 12/26/17 12/26/17 12/27/17 23:42 23:50 04:00 Temperature Pulse Rate 47 L 63 Pulse Rate [ 77 Apical] Respiratory 18 Rate Blood Pressure 91/50 Blood Pressure [Left] O2 Sat by Pulse 93 Oximetry 12/27/17 12/27/17 12/27/17 04:53 07:50 08:58 Temperature 98.6 F 98.3 F Pulse Rate 61 61 64 Pulse Rate [ Apical] Respiratory 18 20 Rate Blood Pressure 100/62 Blood Pressure 88/48 [Left] O2 Sat by Pulse 97 97 Oximetry Constitutional: lethargic, other (chronically ill looking elderly AAM, normocephalic and atraumatic) Eyes: non-icteric ENT: oropharynx moist, other (mallampati 2) Neck: supple, no lymphadenopathy, no JVD, other (no thyromegaly) Effort: mildly labored Ascultation: Bilateral: diminished breath sounds (bases), rhonchi (scant) Percussion: Bilateral: not dull, dull (bases) Cardiovascular: regular rate and rhythm, other (S1,S2, no murmurms, gallops or rubs) Gastrointestinal: normoactive bowel sounds, soft, non-tender, other (distended) Integumentary: rash Extremities: no cyanosis, no edema, pulses normal, no ischemia or petechiae, cool Neurologic: non-focal exam, pupils equal and round, motor strength normal and ( weak), other (somnolent) Psychiatric: other (somnolent; flat affect) CBC and BMP: 12/27/17 06:34 12/27/17 06:34 ABG, PT/INR, D-dimer: ABG POC ABG pH 7.452 (7.35-7.45) H 12/12/17 09:13 POC ABG pCO2 22.2 (35-45) L 12/12/17 09:13 POC ABG pO2 75 (80-105) L 12/12/17 09:13 POC ABG HCO3 15.5 12/12/17 09:13 POC ABG Total CO2 16 12/12/17 09:13 POC ABG O2 Sat 96 12/12/17 09:13 PT/INR, D-dimer PT 22.1 Sec. (12.2-14.9) H 12/25/17 05:27 INR 1.81 (0.87-1.13) H 12/25/17 05:27 D-Dimer 1215.06 ng/mlDDU (0-234) H 12/12/17 19:50 Abnormal lab findings: Abnormal Labs 12/10/17 12/10/17 12/10/17 13:14 13:14 23:05 RBC 2.31 L Hgb 7.3 L Hct 21.5 L MCH MCHC RDW 17.7 H Plt Count 61 L Lymph % (Auto) [place] % (Auto) Lymph # [place] # Seg Neutrophils % Seg Neuts % (Manual) 81.0 H Lymphocytes % (Manual) 11.0 L Lymphocytes # (Manual) 0.6 L PT INR APTT Fibrinogen D-Dimer POC ABG pH POC ABG pCO2 POC ABG pO2 Sodium 136 L Potassium 5.2 H Chloride Carbon Dioxide 15 L BUN 47 H Creatinine 5.2 H Glucose 127 H POC Glucose Lactic Acid Calcium Phosphorus Magnesium Ferritin Total Bilirubin 3.50 H Direct Bilirubin AST 71 H Ammonia Lactate Dehydrogenase NT-Pro-B Natriuret Pep Total Protein Albumin 2.6 L Lipase Vitamin B12 Urine WBC (Auto) 10.0 H Urine Creatinine Ur Creatinine 24 Hour Digoxin Crossmatch 12/10/17 12/10/17 12/10/17 23:14 23:14 23:14 RBC Hgb Hct MCH MCHC RDW Plt Count Lymph % (Auto) [place] % (Auto) Lymph # [place] # Seg Neutrophils % Seg Neuts % (Manual) Lymphocytes % (Manual) Lymphocytes # (Manual) PT INR APTT Fibrinogen D-Dimer POC ABG pH POC ABG pCO2 POC ABG pO2 Sodium Potassium Chloride Carbon Dioxide BUN Creatinine Glucose POC Glucose Lactic Acid 2.40 H* Calcium Phosphorus Magnesium Ferritin Total Bilirubin Direct Bilirubin AST Ammonia 134.0 H Lactate Dehydrogenase NT-Pro-B Natriuret Pep 9558 H Total Protein Albumin Lipase Vitamin B12 Urine WBC (Auto) Urine Creatinine Ur Creatinine 24 Hour Digoxin Crossmatch 12/10/17 12/11/17 12/11/17 23:14 00:29 03:33 RBC Hgb Hct MCH MCHC RDW Plt Count Lymph % (Auto) [place] % (Auto) Lymph # [place] # Seg Neutrophils % Seg Neuts % (Manual) Lymphocytes % (Manual) Lymphocytes # (Manual) PT INR APTT Fibrinogen D-Dimer POC ABG pH POC ABG pCO2 POC ABG pO2 Sodium Potassium Chloride Carbon Dioxide BUN Creatinine Glucose POC Glucose Lactic Acid 2.80 H* 3.00 H* Calcium Phosphorus Magnesium Ferritin Total Bilirubin Direct Bilirubin AST Ammonia Lactate Dehydrogenase NT-Pro-B Natriuret Pep Total Protein Albumin Lipase 7 L Vitamin B12 Urine WBC (Auto) Urine Creatinine Ur Creatinine 24 Hour Digoxin Crossmatch 12/11/17 12/11/17 12/11/17 04:08 04:34 04:34 RBC Hgb Hct MCH MCHC RDW Plt Count Lymph % (Auto) [place] % (Auto) Lymph # [place] # Seg Neutrophils % Seg Neuts % (Manual) Lymphocytes % (Manual) Lymphocytes # (Manual) PT 19.1 H INR 1.51 H APTT 45.7 H Fibrinogen D-Dimer POC ABG pH POC ABG pCO2 POC ABG pO2 Sodium Potassium Chloride Carbon Dioxide BUN Creatinine Glucose POC Glucose 113 H Lactic Acid 3.10 H* Calcium Phosphorus Magnesium Ferritin Total Bilirubin Direct Bilirubin AST Ammonia Lactate Dehydrogenase NT-Pro-B Natriuret Pep Total Protein Albumin Lipase Vitamin B12 Urine WBC (Auto) Urine Creatinine Ur Creatinine 24 Hour Digoxin Crossmatch 12/11/17 12/11/17 12/11/17 06:46 07:26 09:42 RBC Hgb Hct MCH MCHC RDW Plt Count Lymph % (Auto) [place] % (Auto) Lymph # [place] # Seg Neutrophils % Seg Neuts % (Manual) Lymphocytes % (Manual) Lymphocytes # (Manual) PT INR APTT Fibrinogen D-Dimer POC ABG pH POC ABG pCO2 POC ABG pO2 Sodium Potassium Chloride Carbon Dioxide BUN Creatinine Glucose POC Glucose Lactic Acid 2.70 H* 2.80 H* 2.90 H* Calcium Phosphorus Magnesium Ferritin Total Bilirubin Direct Bilirubin AST Ammonia Lactate Dehydrogenase NT-Pro-B Natriuret Pep Total Protein Albumin Lipase Vitamin B12 Urine WBC (Auto) Urine Creatinine Ur Creatinine 24 Hour Digoxin Crossmatch 12/11/17 12/11/17 12/11/17 13:12 14:06 23:14 RBC Hgb Hct MCH MCHC RDW Plt Count Lymph % (Auto) [place] % (Auto) Lymph # [place] # Seg Neutrophils % Seg Neuts % (Manual) Lymphocytes % (Manual) Lymphocytes # (Manual) PT INR APTT Fibrinogen D-Dimer POC ABG pH POC ABG pCO2 POC ABG pO2 Sodium Potassium Chloride Carbon Dioxide BUN Creatinine Glucose POC Glucose Lactic Acid 3.10 H* 3.10 H* 3.70 H* Calcium Phosphorus Magnesium Ferritin Total Bilirubin Direct Bilirubin AST Ammonia Lactate Dehydrogenase NT-Pro-B Natriuret Pep Total Protein Albumin Lipase Vitamin B12 Urine WBC (Auto) Urine Creatinine Ur Creatinine 24 Hour Digoxin Crossmatch 12/11/17 12/12/17 12/12/17 23:23 03:41 03:41 RBC 2.17 L Hgb 7.0 L Hct 19.9 L* MCH 33 H MCHC 35 H RDW 17.7 H Plt Count 62 L Lymph % (Auto) [place] % (Auto) Lymph # [place] # Seg Neutrophils % Seg Neuts % (Manual) 91.0 H Lymphocytes % (Manual) 3.0 L Lymphocytes # (Manual) 0.2 L PT INR APTT Fibrinogen D-Dimer POC ABG pH POC ABG pCO2 POC ABG pO2 Sodium Potassium 5.4 H Chloride Carbon Dioxide 12 L BUN 47 H Creatinine 4.5 H Glucose 103 H POC Glucose Lactic Acid Calcium 8.0 L Phosphorus Magnesium Ferritin Total Bilirubin 3.60 H Direct Bilirubin AST 58 H Ammonia Lactate Dehydrogenase NT-Pro-B Natriuret Pep Total Protein 5.9 L Albumin 2.5 L Lipase Vitamin B12 Urine WBC (Auto) Urine Creatinine Ur Creatinine 24 Hour Digoxin Crossmatch See Detail 12/12/17 12/12/17 12/12/17 07:00 09:13 17:55 RBC 2.06 L Hgb 6.6 L Hct 18.6 L* MCH MCHC 36 H RDW 17.8 H Plt Count 77 L Lymph % (Auto) [place] % (Auto) Lymph # [place] # Seg Neutrophils % Seg Neuts % (Manual) Lymphocytes % (Manual) Lymphocytes # (Manual) PT INR APTT Fibrinogen D-Dimer POC ABG pH 7.452 H POC ABG pCO2 22.2 L POC ABG pO2 75 L Sodium Potassium Chloride Carbon Dioxide BUN Creatinine Glucose POC Glucose 119 H Lactic Acid Calcium Phosphorus Magnesium Ferritin Total Bilirubin Direct Bilirubin AST Ammonia Lactate Dehydrogenase NT-Pro-B Natriuret Pep Total Protein Albumin Lipase Vitamin B12 Urine WBC (Auto) Urine Creatinine Ur Creatinine 24 Hour Digoxin Crossmatch 12/12/17 12/12/17 12/12/17 19:50 19:50 19:50 RBC 2.40 L Hgb 7.8 L Hct 21.3 L MCH 33 H MCHC 37 H RDW 16.1 H Plt Count 99 L Lymph % (Auto) [place] % (Auto) Lymph # [place] # Seg Neutrophils % Seg Neuts % (Manual) 87.0 H Lymphocytes % (Manual) 5.0 L Lymphocytes # (Manual) 0.3 L PT 21.9 H INR 1.79 H APTT 41.5 H Fibrinogen 128 L D-Dimer 1215.06 H POC ABG pH POC ABG pCO2 POC ABG pO2 Sodium Potassium Chloride Carbon Dioxide BUN Creatinine Glucose POC Glucose Lactic Acid Calcium Phosphorus Magnesium Ferritin Total Bilirubin 4.10 H Direct Bilirubin 1.6 H AST Ammonia Lactate Dehydrogenase NT-Pro-B Natriuret Pep Total Protein Albumin Lipase Vitamin B12 Urine WBC (Auto) Urine Creatinine Ur Creatinine 24 Hour Digoxin Crossmatch 12/12/17 12/12/17 12/12/17 19:50 19:50 23:46 RBC Hgb Hct MCH MCHC RDW Plt Count Lymph % (Auto) [place] % (Auto) Lymph # [place] # Seg Neutrophils % Seg Neuts % (Manual) Lymphocytes % (Manual) Lymphocytes # (Manual) PT INR APTT Fibrinogen D-Dimer POC ABG pH POC ABG pCO2 POC ABG pO2 Sodium Potassium Chloride Carbon Dioxide BUN Creatinine Glucose POC Glucose 110 H Lactic Acid Calcium Phosphorus Magnesium Ferritin Total Bilirubin Direct Bilirubin AST Ammonia Lactate Dehydrogenase 213 H NT-Pro-B Natriuret Pep Total Protein Albumin Lipase Vitamin B12 1465 H Urine WBC (Auto) Urine Creatinine Ur Creatinine 24 Hour Digoxin Crossmatch 12/13/17 12/13/17 12/13/17 04:00 04:00 05:12 RBC 2.32 L Hgb 7.4 L Hct 20.8 L MCH MCHC 36 H RDW 16.1 H Plt Count 134 L Lymph % (Auto) 13.1 L [place] % (Auto) 7.9 H Lymph # 0.8 L [place] # Seg Neutrophils % 76.3 H Seg Neuts % (Manual) Lymphocytes % (Manual) Lymphocytes # (Manual) PT INR APTT Fibrinogen D-Dimer POC ABG pH POC ABG pCO2 POC ABG pO2 Sodium Potassium Chloride Carbon Dioxide 21 L D BUN 48 H Creatinine 4.6 H Glucose 104 H POC Glucose 134 H Lactic Acid Calcium 8.1 L Phosphorus Magnesium Ferritin Total Bilirubin 4.70 H Direct Bilirubin AST 43 H Ammonia Lactate Dehydrogenase NT-Pro-B Natriuret Pep Total Protein 5.8 L Albumin 3.1 L Lipase Vitamin B12 Urine WBC (Auto) Urine Creatinine Ur Creatinine 24 Hour Digoxin Crossmatch 12/13/17 12/13/17 12/13/17 08:45 12:25 14:03 RBC Hgb Hct MCH MCHC RDW Plt Count Lymph % (Auto) [place] % (Auto) Lymph # [place] # Seg Neutrophils % Seg Neuts % (Manual) Lymphocytes % (Manual) Lymphocytes # (Manual) PT 20.5 H INR 1.65 H APTT Fibrinogen D-Dimer POC ABG pH POC ABG pCO2 POC ABG pO2 Sodium Potassium Chloride Carbon Dioxide BUN Creatinine Glucose POC Glucose 112 H Lactic Acid 3.70 H* Calcium Phosphorus Magnesium Ferritin Total Bilirubin Direct Bilirubin AST Ammonia Lactate Dehydrogenase NT-Pro-B Natriuret Pep Total Protein Albumin Lipase Vitamin B12 Urine WBC (Auto) Urine Creatinine Ur Creatinine 24 Hour Digoxin Crossmatch 12/13/17 12/13/17 12/13/17 14:03 18:52 21:09 RBC Hgb Hct MCH MCHC RDW Plt Count Lymph % (Auto) [place] % (Auto) Lymph # [place] # Seg Neutrophils % Seg Neuts % (Manual) Lymphocytes % (Manual) Lymphocytes # (Manual) PT INR APTT Fibrinogen D-Dimer POC ABG pH POC ABG pCO2 POC ABG pO2 Sodium Potassium Chloride Carbon Dioxide BUN Creatinine Glucose POC Glucose 110 H Lactic Acid 4.00 H* Calcium Phosphorus Magnesium Ferritin Total Bilirubin Direct Bilirubin AST Ammonia 87.0 H Lactate Dehydrogenase NT-Pro-B Natriuret Pep Total Protein Albumin Lipase Vitamin B12 Urine WBC (Auto) Urine Creatinine Ur Creatinine 24 Hour Digoxin Crossmatch 12/14/17 12/14/17 12/14/17 00:25 03:30 03:30 RBC 2.29 L Hgb 7.3 L Hct 20.7 L MCH MCHC 35 H RDW 16.2 H Plt Count 84 L Lymph % (Auto) 12.8 L [place] % (Auto) 8.3 H Lymph # 0.6 L [place] # Seg Neutrophils % 77.2 H Seg Neuts % (Manual) Lymphocytes % (Manual) Lymphocytes # (Manual) PT INR APTT Fibrinogen D-Dimer POC ABG pH POC ABG pCO2 POC ABG pO2 Sodium Potassium Chloride 96.1 L Carbon Dioxide BUN 48 H Creatinine 4.6 H Glucose 125 H POC Glucose 131 H Lactic Acid Calcium 7.9 L Phosphorus Magnesium Ferritin Total Bilirubin 4.70 H Direct Bilirubin AST 45 H Ammonia Lactate Dehydrogenase NT-Pro-B Natriuret Pep Total Protein 6.1 L Albumin 3.4 L Lipase Vitamin B12 Urine WBC (Auto) Urine Creatinine Ur Creatinine 24 Hour Digoxin Crossmatch 12/14/17 12/14/17 12/14/17 05:31 12:26 12:55 RBC Hgb Hct MCH MCHC RDW Plt Count Lymph % (Auto) [place] % (Auto) Lymph # [place] # Seg Neutrophils % Seg Neuts % (Manual) Lymphocytes % (Manual) Lymphocytes # (Manual) PT INR APTT Fibrinogen D-Dimer POC ABG pH POC ABG pCO2 POC ABG pO2 Sodium Potassium Chloride Carbon Dioxide BUN Creatinine Glucose POC Glucose 125 H 117 H Lactic Acid 3.40 H* Calcium Phosphorus Magnesium Ferritin Total Bilirubin Direct Bilirubin AST Ammonia Lactate Dehydrogenase NT-Pro-B Natriuret Pep Total Protein Albumin Lipase Vitamin B12 Urine WBC (Auto) Urine Creatinine Ur Creatinine 24 Hour Digoxin Crossmatch 12/14/17 12/14/17 12/14/17 15:26 17:26 18:07 RBC Hgb Hct MCH MCHC RDW Plt Count Lymph % (Auto) [place] % (Auto) Lymph # [place] # Seg Neutrophils % Seg Neuts % (Manual) Lymphocytes % (Manual) Lymphocytes # (Manual) PT INR APTT Fibrinogen D-Dimer POC ABG pH POC ABG pCO2 POC ABG pO2 Sodium Potassium Chloride Carbon Dioxide BUN Creatinine Glucose POC Glucose 143 H Lactic Acid 4.00 H* 3.90 H* Calcium Phosphorus Magnesium Ferritin Total Bilirubin Direct Bilirubin AST Ammonia Lactate Dehydrogenase NT-Pro-B Natriuret Pep Total Protein Albumin Lipase Vitamin B12 Urine WBC (Auto) Urine Creatinine Ur Creatinine 24 Hour Digoxin Crossmatch 12/14/17 12/15/17 12/15/17 Unknown 00:08 04:51 RBC 2.27 L Hgb 7.3 L Hct 20.7 L MCH MCHC 35 H RDW 16.1 H Plt Count 92 L Lymph % (Auto) 12.5 L [place] % (Auto) 10.4 H Lymph # 0.6 L [place] # Seg Neutrophils % 74.7 H Seg Neuts % (Manual) Lymphocytes % (Manual) Lymphocytes # (Manual) PT INR APTT Fibrinogen D-Dimer POC ABG pH POC ABG pCO2 POC ABG pO2 Sodium Potassium Chloride Carbon Dioxide BUN Creatinine Glucose POC Glucose 124 H Lactic Acid Calcium Phosphorus Magnesium Ferritin Total Bilirubin Direct Bilirubin AST Ammonia Lactate Dehydrogenase NT-Pro-B Natriuret Pep Total Protein Albumin Lipase Vitamin B12 Urine WBC (Auto) Urine Creatinine 122.5 H Ur Creatinine 24 Hour 0.3 L Digoxin Crossmatch 12/15/17 12/15/17 12/15/17 04:51 04:51 05:56 RBC Hgb Hct MCH MCHC RDW Plt Count Lymph % (Auto) [place] % (Auto) Lymph # [place] # Seg Neutrophils % Seg Neuts % (Manual) Lymphocytes % (Manual) Lymphocytes # (Manual) PT INR APTT Fibrinogen D-Dimer POC ABG pH POC ABG pCO2 POC ABG pO2 Sodium Potassium 3.5 L Chloride 92.6 L Carbon Dioxide BUN 50 H Creatinine 4.8 H Glucose 141 H POC Glucose 143 H Lactic Acid Calcium 7.9 L Phosphorus Magnesium Ferritin Total Bilirubin 3.60 H Direct Bilirubin AST 44 H Ammonia 24.0 L Lactate Dehydrogenase NT-Pro-B Natriuret Pep Total Protein 6.1 L Albumin 3.8 L Lipase Vitamin B12 Urine WBC (Auto) Urine Creatinine Ur Creatinine 24 Hour Digoxin Crossmatch 12/15/17 12/15/17 12/16/17 12:17 23:10 07:04 RBC Hgb Hct MCH MCHC RDW Plt Count Lymph % (Auto) [place] % (Auto) Lymph # [place] # Seg Neutrophils % Seg Neuts % (Manual) Lymphocytes % (Manual) Lymphocytes # (Manual) PT INR APTT Fibrinogen D-Dimer POC ABG pH POC ABG pCO2 POC ABG pO2 Sodium Potassium Chloride Carbon Dioxide BUN Creatinine Glucose POC Glucose 127 H 157 H 147 H Lactic Acid Calcium Phosphorus Magnesium Ferritin Total Bilirubin Direct Bilirubin AST Ammonia Lactate Dehydrogenase NT-Pro-B Natriuret Pep Total Protein Albumin Lipase Vitamin B12 Urine WBC (Auto) Urine Creatinine Ur Creatinine 24 Hour Digoxin Crossmatch 12/16/17 12/16/17 12/16/17 11:35 12:37 12:37 RBC 2.21 L Hgb 6.9 L Hct 20.2 L MCH MCHC RDW 16.2 H Plt Count 50 L Lymph % (Auto) [place] % (Auto) 9.7 H Lymph # 0.7 L [place] # Seg Neutrophils % 73.1 H Seg Neuts % (Manual) Lymphocytes % (Manual) Lymphocytes # (Manual) PT INR APTT Fibrinogen D-Dimer POC ABG pH POC ABG pCO2 POC ABG pO2 Sodium Potassium Chloride 88.2 L Carbon Dioxide BUN 52 H Creatinine 5.5 H Glucose 107 H POC Glucose 134 H Lactic Acid Calcium 7.8 L Phosphorus Magnesium Ferritin Total Bilirubin 2.60 H Direct Bilirubin AST 49 H Ammonia Lactate Dehydrogenase NT-Pro-B Natriuret Pep Total Protein Albumin 3.6 L Lipase Vitamin B12 Urine WBC (Auto) Urine Creatinine Ur Creatinine 24 Hour Digoxin Crossmatch 12/16/17 12/16/17 12/16/17 18:06 20:45 23:34 RBC Hgb Hct MCH MCHC RDW Plt Count Lymph % (Auto) [place] % (Auto) Lymph # [place] # Seg Neutrophils % Seg Neuts % (Manual) Lymphocytes % (Manual) Lymphocytes # (Manual) PT INR APTT Fibrinogen D-Dimer POC ABG pH POC ABG pCO2 POC ABG pO2 Sodium Potassium Chloride Carbon Dioxide BUN Creatinine Glucose POC Glucose 133 H 139 H Lactic Acid Calcium Phosphorus Magnesium Ferritin Total Bilirubin Direct Bilirubin AST Ammonia Lactate Dehydrogenase NT-Pro-B Natriuret Pep Total Protein Albumin Lipase Vitamin B12 Urine WBC (Auto) Urine Creatinine Ur Creatinine 24 Hour Digoxin Crossmatch See Detail 12/17/17 12/17/17 12/17/17 05:27 05:27 06:11 RBC 2.10 L Hgb 6.6 L Hct 19.2 L* MCH MCHC 35 H RDW 16.5 H Plt Count 65 L Lymph % (Auto) 12.6 L [place] % (Auto) 9.6 H Lymph # 0.7 L [place] # Seg Neutrophils % 75.8 H Seg Neuts % (Manual) Lymphocytes % (Manual) Lymphocytes # (Manual) PT INR APTT Fibrinogen D-Dimer POC ABG pH POC ABG pCO2 POC ABG pO2 Sodium 135 L Potassium 3.4 L Chloride 84.9 L Carbon Dioxide 33 H BUN 53 H Creatinine 5.9 H Glucose POC Glucose 110 H Lactic Acid Calcium 7.7 L Phosphorus Magnesium Ferritin Total Bilirubin 2.70 H Direct Bilirubin AST 50 H Ammonia Lactate Dehydrogenase NT-Pro-B Natriuret Pep Total Protein 6.2 L Albumin 3.7 L Lipase Vitamin B12 Urine WBC (Auto) Urine Creatinine Ur Creatinine 24 Hour Digoxin Crossmatch 12/17/17 12/18/17 12/18/17 09:34 00:05 05:21 RBC 3.35 L Hgb 10.3 L D Hct 30.4 L D MCH MCHC RDW 16.2 H Plt Count 57 L Lymph % (Auto) 8.0 L [place] % (Auto) 10.9 H Lymph # 0.6 L [place] # Seg Neutrophils % 80.2 H Seg Neuts % (Manual) Lymphocytes % (Manual) Lymphocytes # (Manual) PT 23.9 H INR 1.99 H APTT Fibrinogen D-Dimer POC ABG pH POC ABG pCO2 POC ABG pO2 Sodium Potassium Chloride Carbon Dioxide BUN Creatinine Glucose POC Glucose 132 H Lactic Acid Calcium Phosphorus Magnesium Ferritin Total Bilirubin Direct Bilirubin AST Ammonia Lactate Dehydrogenase NT-Pro-B Natriuret Pep Total Protein Albumin Lipase Vitamin B12 Urine WBC (Auto) Urine Creatinine Ur Creatinine 24 Hour Digoxin Crossmatch 12/18/17 12/18/17 12/18/17 05:21 06:16 11:11 RBC Hgb Hct MCH MCHC RDW Plt Count Lymph % (Auto) [place] % (Auto) Lymph # [place] # Seg Neutrophils % Seg Neuts % (Manual) Lymphocytes % (Manual) Lymphocytes # (Manual) PT 34.7 H INR 3.17 H APTT Fibrinogen D-Dimer POC ABG pH POC ABG pCO2 POC ABG pO2 Sodium Potassium 3.5 L Chloride 87.1 L Carbon Dioxide BUN 35 H Creatinine 4.3 H Glucose 110 H POC Glucose 116 H Lactic Acid Calcium 8.1 L Phosphorus Magnesium Ferritin Total Bilirubin 5.10 H Direct Bilirubin AST 56 H Ammonia Lactate Dehydrogenase NT-Pro-B Natriuret Pep Total Protein Albumin Lipase Vitamin B12 Urine WBC (Auto) Urine Creatinine Ur Creatinine 24 Hour Digoxin Crossmatch 12/18/17 12/18/17 12/18/17 13:10 17:52 22:04 RBC Hgb Hct MCH MCHC RDW Plt Count Lymph % (Auto) [place] % (Auto) Lymph # [place] # Seg Neutrophils % Seg Neuts % (Manual) Lymphocytes % (Manual) Lymphocytes # (Manual) PT 25.9 H INR 2.20 H APTT Fibrinogen D-Dimer POC ABG pH POC ABG pCO2 POC ABG pO2 Sodium Potassium Chloride Carbon Dioxide BUN Creatinine Glucose POC Glucose 114 H 108 H Lactic Acid Calcium Phosphorus Magnesium Ferritin Total Bilirubin Direct Bilirubin AST Ammonia Lactate Dehydrogenase NT-Pro-B Natriuret Pep Total Protein Albumin Lipase Vitamin B12 Urine WBC (Auto) Urine Creatinine Ur Creatinine 24 Hour Digoxin Crossmatch 12/19/17 12/19/17 12/19/17 05:55 05:55 10:20 RBC 2.85 L Hgb 9.1 L Hct 25.7 L MCH MCHC 35 H RDW 16.4 H Plt Count 61 L Lymph % (Auto) [place] % (Auto) Lymph # [place] # Seg Neutrophils % Seg Neuts % (Manual) Lymphocytes % (Manual) Lymphocytes # (Manual) PT INR APTT Fibrinogen D-Dimer POC ABG pH POC ABG pCO2 POC ABG pO2 Sodium Potassium Chloride 94.5 L Carbon Dioxide BUN 27 H Creatinine 3.6 H Glucose POC Glucose 131 H Lactic Acid Calcium 8.2 L Phosphorus Magnesium Ferritin Total Bilirubin Direct Bilirubin AST Ammonia Lactate Dehydrogenase NT-Pro-B Natriuret Pep Total Protein Albumin Lipase Vitamin B12 Urine WBC (Auto) Urine Creatinine Ur Creatinine 24 Hour Digoxin Crossmatch 12/19/17 12/21/17 12/21/17 11:46 05:26 05:26 RBC 2.60 L Hgb 8.4 L Hct 23.9 L MCH MCHC 35 H RDW 16.2 H Plt Count 57 L Lymph % (Auto) 12.4 L [place] % (Auto) 10.7 H Lymph # [place] # 1.0 H Seg Neutrophils % 74.8 H Seg Neuts % (Manual) Lymphocytes % (Manual) Lymphocytes # (Manual) PT 26.2 H INR 2.23 H APTT Fibrinogen D-Dimer POC ABG pH POC ABG pCO2 POC ABG pO2 Sodium Potassium Chloride Carbon Dioxide BUN Creatinine Glucose POC Glucose Lactic Acid Calcium Phosphorus Magnesium Ferritin Total Bilirubin Direct Bilirubin AST Ammonia Lactate Dehydrogenase NT-Pro-B Natriuret Pep Total Protein Albumin Lipase Vitamin B12 Urine WBC (Auto) Urine Creatinine Ur Creatinine 24 Hour Digoxin 0.4 L Crossmatch 12/21/17 12/23/17 12/24/17 09:40 08:15 04:51 RBC 1.80 L Hgb 5.9 L* Hct 17.0 L* D MCH 33 H MCHC 35 H RDW 16.5 H Plt Count 53 L Lymph % (Auto) [place] % (Auto) Lymph # [place] # Seg Neutrophils % Seg Neuts % (Manual) Lymphocytes % (Manual) Lymphocytes # (Manual) PT 26.4 H 27.9 H INR 2.26 H 2.42 H APTT Fibrinogen D-Dimer POC ABG pH POC ABG pCO2 POC ABG pO2 Sodium Potassium Chloride Carbon Dioxide BUN Creatinine Glucose POC Glucose Lactic Acid Calcium Phosphorus Magnesium Ferritin Total Bilirubin Direct Bilirubin AST Ammonia Lactate Dehydrogenase NT-Pro-B Natriuret Pep Total Protein Albumin Lipase Vitamin B12 Urine WBC (Auto) Urine Creatinine Ur Creatinine 24 Hour Digoxin Crossmatch 12/24/17 12/24/17 12/24/17 04:51 06:25 08:20 RBC Hgb Hct MCH MCHC RDW Plt Count Lymph % (Auto) [place] % (Auto) Lymph # [place] # Seg Neutrophils % Seg Neuts % (Manual) Lymphocytes % (Manual) Lymphocytes # (Manual) PT 40.8 H INR 3.87 H APTT Fibrinogen D-Dimer POC ABG pH POC ABG pCO2 POC ABG pO2 Sodium Potassium 3.5 L Chloride Carbon Dioxide BUN 21 H Creatinine 4.4 H Glucose POC Glucose Lactic Acid Calcium 8.1 L Phosphorus Magnesium Ferritin Total Bilirubin Direct Bilirubin AST Ammonia Lactate Dehydrogenase NT-Pro-B Natriuret Pep Total Protein Albumin Lipase Vitamin B12 Urine WBC (Auto) Urine Creatinine Ur Creatinine 24 Hour Digoxin Crossmatch See Detail 12/24/17 12/24/17 12/25/17 19:21 19:21 05:27 RBC 2.31 L Hgb 7.3 L 7.4 L Hct 20.4 L 21.3 L MCH MCHC 35 H RDW 15.9 H Plt Count 39 L Lymph % (Auto) [place] % (Auto) 10.8 H Lymph # 0.9 L [place] # Seg Neutrophils % 71.9 H Seg Neuts % (Manual) Lymphocytes % (Manual) Lymphocytes # (Manual) PT 21.3 H INR 1.73 H APTT Fibrinogen D-Dimer POC ABG pH POC ABG pCO2 POC ABG pO2 Sodium Potassium Chloride Carbon Dioxide BUN Creatinine Glucose POC Glucose Lactic Acid Calcium Phosphorus Magnesium Ferritin Total Bilirubin Direct Bilirubin AST Ammonia Lactate Dehydrogenase NT-Pro-B Natriuret Pep Total Protein Albumin Lipase Vitamin B12 Urine WBC (Auto) Urine Creatinine Ur Creatinine 24 Hour Digoxin Crossmatch 12/25/17 12/25/17 12/25/17 05:27 05:27 12:24 RBC Hgb Hct MCH MCHC RDW Plt Count Lymph % (Auto) [place] % (Auto) Lymph # [place] # Seg Neutrophils % Seg Neuts % (Manual) Lymphocytes % (Manual) Lymphocytes # (Manual) PT 22.1 H INR 1.81 H APTT Fibrinogen D-Dimer POC ABG pH POC ABG pCO2 POC ABG pO2 Sodium Potassium 3.5 L Chloride 96.7 L Carbon Dioxide BUN Creatinine 3.2 H Glucose POC Glucose 140 H Lactic Acid Calcium 8.1 L Phosphorus Magnesium Ferritin Total Bilirubin Direct Bilirubin AST Ammonia Lactate Dehydrogenase NT-Pro-B Natriuret Pep Total Protein Albumin Lipase Vitamin B12 Urine WBC (Auto) Urine Creatinine Ur Creatinine 24 Hour Digoxin Crossmatch 12/26/17 12/26/17 12/27/17 05:59 05:59 06:34 RBC 2.01 L 2.52 L Hgb 6.6 L 8.2 L Hct 18.6 L* 23.2 L MCH 33 H MCHC 35 H 35 H RDW 16.6 H 15.3 H Plt Count 45 L 39 L Lymph % (Auto) 11.6 L [place] % (Auto) 10.3 H 11.2 H Lymph # 1.0 L 0.7 L [place] # Seg Neutrophils % 72.2 H 75.4 H Seg Neuts % (Manual) Lymphocytes % (Manual) Lymphocytes # (Manual) PT INR APTT Fibrinogen D-Dimer POC ABG pH POC ABG pCO2 POC ABG pO2 Sodium Potassium 3.3 L Chloride Carbon Dioxide BUN Creatinine 3.8 H Glucose 110 H POC Glucose Lactic Acid Calcium Phosphorus 2.40 L Magnesium 1.40 L Ferritin Total Bilirubin 7.10 H Direct Bilirubin AST 73 H Ammonia Lactate Dehydrogenase NT-Pro-B Natriuret Pep Total Protein Albumin 3.5 L Lipase Vitamin B12 Urine WBC (Auto) Urine Creatinine Ur Creatinine 24 Hour Digoxin Crossmatch 12/27/17 12/27/17 06:34 06:34 RBC Hgb Hct MCH MCHC RDW Plt Count Lymph % (Auto) [place] % (Auto) Lymph # [place] # Seg Neutrophils % Seg Neuts % (Manual) Lymphocytes % (Manual) Lymphocytes # (Manual) PT INR APTT Fibrinogen D-Dimer POC ABG pH POC ABG pCO2 POC ABG pO2 Sodium Potassium 3.3 L Chloride 95.4 L Carbon Dioxide BUN Creatinine 2.6 H Glucose 112 H POC Glucose Lactic Acid Calcium 8.1 L Phosphorus Magnesium Ferritin > 2000.0 H Total Bilirubin 8.00 H Direct Bilirubin AST 89 H Ammonia Lactate Dehydrogenase NT-Pro-B Natriuret Pep Total Protein Albumin 3.7 L Lipase Vitamin B12 Urine WBC (Auto) Urine Creatinine Ur Creatinine 24 Hour Digoxin Crossmatch Allied health notes reviewed: RT
[2017-12-27 15:30] LABS: Iron 78 ug/dL (49-181)
[2017-12-27 15:59] LABS: Total Iron Binding Capacity 77 mcg/dL (250-450)
--- NOTE | 2017-12-27 21:42 | Progress Note ---
Assessment and Plan Assessment and plan: --Acute blood loss anemia. Possible Variceal bleeding EGD did not reveal variceal bleeding, findings noted, Received total of 9 units of PRBC, mild improvement in hemoglobin --Severe thrombocytopenia; probably secondary to cirrhosis Platelet transfusion, hematology following, possible bone marrow biopsy if needed --NSVT, resolved ; continue Lopressor --Septic/hypovolemic shock. On midodrine, --Sepsis;cultures negative --Coagulopathy cirrhosis of liver ; received FFP and vitamin K , monitor INR --Rectal bleeding; resolved GI following --Cirrhosis with esophageal varices. Patient without signs of active bleeding. --Toxic metabolic/hepatic encephalopathy. Hyperammonemia on admission. Resolved --Acute on chronic kidney disease : ATN/sepsis/hypotension. On hemodialysis,Outpatient dialysis per case management --Hepatorenal syndrome; on HD, nephrology following --Bilateral pleural effusion right greater than left. Occupational Health Nurse Manager recommends giving FFP and possible thoracentesis if needed Plan of care Discussed with patient and at bedside today 12/24 GI trying to contact plastic boat patcher in [place][patient scheduled to see for evaluation for liver transplant on 12/30/2017 ] One of care reviewed with the patient's and his nurse History Interval history: Patient seen and examined medical records reviewed No new events reported by nursing staff Patient received 2 units PRBC yesterday, with mild improvement of H&H Severe thrombocytopenia, hematology following, platelet transfusion as needed Patient looks chronically ill and cachectic Vital signs reviewed, at the bedside Hospitalist Physical - Constitutional Vitals: Temp Pulse Resp BP Pulse Ox 98.5 F 67 18 92/50 97 12/27/17 20:50 12/27/17 20:50 12/27/17 20:50 12/27/17 20:50 12/27/17 20:50 General appearance: Present: mild distress, cachectic, other (chronically looking) - EENT Eyes: Present: PERRL, EOM intact - Neck Neck: Present: supple, normal ROM - Respiratory Respiratory effort: normal Respiratory: bilateral: diminished, negative: rales, rhonchi, wheezing - Cardiovascular Rhythm: regular Heart Sounds: Present: S1 & S2 - Extremities Extremities: no ischemia, No edema - Abdominal General gastrointestinal: soft, non-tender, non-distended, normal bowel sounds - Integumentary Integumentary: Present: clear, warm - Psychiatric Psychiatric: appropriate mood/affect, other (minimally communicative) - Neurologic Neurologic: CNII-XII intact, moves all extremities Results - Labs CBC & Chem 7: 12/27/17 06:34 12/27/17 06:34 Labs: Laboratory Last Values WBC 6.0 K/mm3 (4.5-11.0) 12/27/17 06:34 RBC 2.52 M/mm3 (3.65-5.03) L 12/27/17 06:34 Hgb 8.2 gm/dl (11.8-15.2) L 12/27/17 06:34 Hct 23.2 % (35.5-45.6) L 12/27/17 06:34 MCV 92 fl (84-94) 12/27/17 06:34 MCH 32 pg (28-32) 12/27/17 06:34 MCHC 35 % (32-34) H 12/27/17 06:34 RDW 15.3 % (13.2-15.2) H 12/27/17 06:34 Plt Count 39 K/mm3 (140-440) L 12/27/17 06:34 Lymph % (Auto) 11.6 % (13.4-35.0) L 12/27/17 06:34 [place] % (Auto) 11.2 % (0.0-7.3) H 12/27/17 06:34 Eos % (Auto) 1.4 % (0.0-4.3) 12/27/17 06:34 Baso % (Auto) 0.4 % (0.0-1.8) 12/27/17 06:34 Lymph # 0.7 K/mm3 (1.2-5.4) L 12/27/17 06:34 [place] # 0.7 K/mm3 (0.0-0.8) 12/27/17 06:34 Eos # 0.1 K/mm3 (0.0-0.4) 12/27/17 06:34 Baso # 0.0 K/mm3 (0.0-0.1) 12/27/17 06:34 Add Manual Diff Complete 12/12/17 19:50 Total Counted 100 12/12/17 19:50 Seg Neutrophils % 75.4 % (40.0-70.0) H 12/27/17 06:34 Seg Neuts % (Manual) 87.0 % (40.0-70.0) H 12/12/17 19:50 Band Neutrophils % 0 % 12/12/17 19:50 Lymphocytes % (Manual) 5.0 % (13.4-35.0) L 12/12/17 19:50 Reactive Lymphs % (Man) 0 % 12/12/17 19:50 Monocytes % (Manual) 6.0 % (0.0-7.3) 12/12/17 19:50 Eosinophils % (Manual) 2.0 % (0.0-4.3) 12/12/17 19:50 Basophils % (Manual) 0 % (0.0-1.8) 12/12/17 19:50 Metamyelocytes % 0 % 12/12/17 19:50 Myelocytes % 0 % 12/12/17 19:50 Promyelocytes % 0 % 12/12/17 19:50 Blast Cells % 0 % 12/12/17 19:50 Nucleated RBC % Not Reportable 12/12/17 19:50 Seg Neutrophils # 4.5 K/mm3 (1.8-7.7) 12/27/17 06:34 Seg Neutrophils # Man 4.9 K/mm3 (1.8-7.7) 12/12/17 19:50 Band Neutrophils # 0.0 K/mm3 12/12/17 19:50 Lymphocytes # (Manual) 0.3 K/mm3 (1.2-5.4) L 12/12/17 19:50 Abs React Lymphs (Man) 0.0 K/mm3 12/12/17 19:50 Monocytes # (Manual) 0.3 K/mm3 (0.0-0.8) 12/12/17 19:50 Eosinophils # (Manual) 0.1 K/mm3 (0.0-0.4) 12/12/17 19:50 Basophils # (Manual) 0.0 K/mm3 (0.0-0.1) 12/12/17 19:50 Metamyelocytes # 0.0 K/mm3 12/12/17 19:50 Myelocytes # 0.0 K/mm3 12/12/17 19:50 Promyelocytes # 0.0 K/mm3 12/12/17 19:50 Blast Cells # 0.0 K/mm3 12/12/17 19:50 WBC Morphology Not Reportable 12/12/17 19:50 Hypersegmented Neuts Not Reportable 12/12/17 19:50 Hyposegmented Neuts Not Reportable 12/12/17 19:50 Hypogranular Neuts Not Reportable 12/12/17 19:50 Smudge Cells Not Reportable 12/12/17 19:50 Toxic Granulation Not Reportable 12/12/17 19:50 Toxic Vacuolation Not Reportable 12/12/17 19:50 Dohle Bodies Not Reportable 12/12/17 19:50 Pelger-Huet Anomaly Not Reportable 12/12/17 19:50 Eriberto Rods Not Reportable 12/12/17 19:50 Platelet Estimate Appears decreased 12/12/17 19:50 Clumped Platelets Not Reportable 12/12/17 19:50 Plt Clumps, EDTA Not Reportable 12/12/17 19:50 Large Platelets 1+ 12/12/17 19:50 Giant Platelets Not Reportable 12/12/17 19:50 Platelet Satelliting Not Reportable 12/12/17 19:50 Plt Morphology Comment Not Reportable 12/12/17 19:50 RBC Morphology Not Reportable 12/12/17 19:50 Dimorphic RBCs Not Reportable 12/12/17 19:50 Polychromasia Not Reportable 12/12/17 19:50 Hypochromasia 1+ 12/12/17 19:50 Poikilocytosis Not Reportable 12/12/17 19:50 Anisocytosis Not Reportable 12/12/17 19:50 Microcytosis Not Reportable 12/12/17 19:50 Macrocytosis Not Reportable 12/12/17 19:50 Spherocytes Not Reportable 12/12/17 19:50 Pappenheimer Bodies Not Reportable 12/12/17 19:50 Sickle Cells Not Reportable 12/12/17 19:50 Target Cells Not Reportable 12/12/17 19:50 Tear Drop Cells Not Reportable 12/12/17 19:50 Ovalocytes Not Reportable 12/12/17 19:50 Helmet Cells Not Reportable 12/12/17 19:50 [place] Bodies Not Reportable 12/12/17 19:50 [place] Rings Not Reportable 12/12/17 19:50 [place] Cells 1+ 12/12/17 19:50 Bite Cells Not Reportable 12/12/17 19:50 Crenated Cell Not Reportable 12/12/17 19:50 Elliptocytes Not Reportable 12/12/17 19:50 Acanthocytes (Spur) 1+ 12/12/17 19:50 Rouleaux Not Reportable 12/12/17 19:50 Hemoglobin C Crystals Not Reportable 12/12/17 19:50 Schistocytes Not Reportable 12/12/17 19:50 Malaria parasites Not Reportable 12/12/17 19:50 ESR 18 mm/Hr (0-20) 12/12/17 19:50 [place] Bodies Not Reportable 12/12/17 19:50 Hem Pathologist Commnt No 12/12/17 19:50 PT 22.1 Sec. (12.2-14.9) H 12/25/17 05:27 INR 1.81 (0.87-1.13) H 12/25/17 05:27 APTT 41.5 Sec. (24.2-36.6) H 12/12/17 19:50 Fibrinogen 128 mg/dl (211-480) L 12/12/17 19:50 D-Dimer 1215.06 ng/mlDDU (0-234) H 12/12/17 19:50 Factor VIII:C Activity 178 % (50-180) 12/12/17 20:30 POC ABG pH 7.452 (7.35-7.45) H 12/12/17 09:13 POC ABG pCO2 22.2 (35-45) L 12/12/17 09:13 POC ABG pO2 75 (80-105) L 12/12/17 09:13 POC ABG HCO3 15.5 12/12/17 09:13 POC ABG Total CO2 16 12/12/17 09:13 POC ABG O2 Sat 96 12/12/17 09:13 POC ABG Base Excess -8 12/12/17 09:13 FiO2 21 % 12/12/17 09:13 Sodium 139 mmol/L (137-145) 12/27/17 06:34 Potassium 3.3 mmol/L (3.6-5.0) L 12/27/17 06:34 Chloride 95.4 mmol/L (98-107) L 12/27/17 06:34 Carbon Dioxide 24 mmol/L (22-30) 12/27/17 06:34 Anion Gap 23 mmol/L 12/27/17 06:34 BUN 11 mg/dL (9-20) 12/27/17 06:34 Creatinine 2.6 mg/dL (0.8-1.5) H 12/27/17 06:34 Estimated GFR 30 ml/min 12/27/17 06:34 BUN/Creatinine Ratio 4 % 12/27/17 06:34 Glucose 112 mg/dL (75-100) H 12/27/17 06:34 POC Glucose 140 (70-105) H 12/25/17 12:24 Lactic Acid 3.90 mmol/L (0.7-2.0) H* 12/14/17 17:26 Calcium 8.1 mg/dL (8.4-10.2) L 12/27/17 06:34 Phosphorus 2.40 mg/dL (2.5-4.5) L 12/26/17 05:59 Magnesium 1.40 mg/dL (1.7-2.3) L 12/26/17 05:59 Iron 78 ug/dL (49-181) 12/27/17 06:34 TIBC 77 mcg/dL (250-450) L 12/27/17 06:34 Ferritin > 2000.0 ng/mL (13.0-400.0) H 12/27/17 06:34 Total Bilirubin 8.00 mg/dL (0.1-1.2) H 12/27/17 06:34 Direct Bilirubin 1.6 mg/dL (0-0.2) H 12/12/17 19:50 Indirect Bilirubin 2.5 mg/dL 12/12/17 19:50 AST 89 units/L (5-40) H 12/27/17 06:34 ALT 28 units/L (7-56) 12/27/17 06:34 Alkaline Phosphatase 70 units/L (35-129) 12/27/17 06:34 Ammonia 53.0 umol/L (25-60) 12/18/17 13:10 Lactate Dehydrogenase 302 units/L (91-180) H 12/27/17 06:34 Total Creatine Kinase 64 units/L (55-170) 12/10/17 23:14 C-Reactive Protein 0.30 mg/dL (0.00-1.30) 12/13/17 14:03 NT-Pro-B Natriuret Pep 9558 pg/mL (0-900) H 12/10/17 23:14 Total Protein 6.6 g/dL (6.3-8.2) 12/27/17 06:34 Albumin 3.7 g/dL (3.9-5) L 12/27/17 06:34 Albumin/Globulin Ratio 1.3 % 12/27/17 06:34 Lipase 7 units/L (13-60) L 12/10/17 23:14 Vitamin B12 1465 pg/mL (211-911) H 12/12/17 19:50 Folate 14.04 ng/mL (7.3-26.0) 12/12/17 19:50 TSH 2.560 mlU/mL (0.270-4.200) 12/16/17 12:37 Total Cortisol 8.6 mcg/dL () 12/16/17 12:37 Urine Color Yellow (Yellow) 12/10/17 23:05 Urine Turbidity Clear (Clear) 12/10/17 23:05 Urine pH 5.0 (5.0-7.0) 12/10/17 23:05 Ur Specific [place] 1.013 (1.003-1.030) 12/10/17 23:05 Urine Protein <15 mg/dl mg/dL (Negative) 12/10/17 23:05 Urine Glucose (UA) Neg mg/dL (Negative) 12/10/17 23:05 Urine Ketones Neg mg/dL (Negative) 12/10/17 23:05 Urine Blood Neg (Negative) 12/10/17 23:05 Urine Nitrite Neg (Negative) 12/10/17 23:05 Ur Reducing Substances Not Reportable 12/10/17 23:05 Urine Bilirubin Neg (Negative) 12/10/17 23:05 Urine Ictotest Not Reportable 12/10/17 23:05 Urine Urobilinogen < 2.0 mg/dL (<2.0) 12/10/17 23:05 Ur Leukocyte Esterase Sm (Negative) 12/10/17 23:05 Urine WBC (Auto) 10.0 /HPF (0.0-6.0) H 12/10/17 23:05 Urine RBC (Auto) 4.0 /HPF (0.0-6.0) 12/10/17 23:05 U Epithel Cells (Auto) < 1.0 /HPF (0-13.0) 12/10/17 23:05 Urine Mucus Few /HPF 12/10/17 23:05 Urine Total Volume 250 12/14/17 Unknown Urine Creatinine 122.5 mg/dL (0.1-20.0) H 12/14/17 Unknown Ur Creatinine 24 Hour 0.3 (0.8-2.8) L 12/14/17 Unknown Digoxin 0.4 ng/mL (0.9-2.0) L 12/21/17 05:26 Hepatitis A IgM Ab Non-reactive (NonReactive) 12/12/17 19:50 Hep Bs Antigen Non-reactive (Negative) 12/12/17 19:50 Hep B Core IgM Ab Non-reactive (NonReactive) 12/12/17 19:50 Hepatitis C Antibody Non-reactive (NonReactive) 12/12/17 19:50 Miscellaneous Test Flexitest 1 12/12/17 06:42 Blood Type A NEGATIVE 12/24/17 06:25 Antibody Screen Negative 12/24/17 06:25 Direct Antiglob Test Negative 12/12/17 20:41 JOANNE, Poly Interpret Negative 12/12/17 20:41 Crossmatch See Detail 12/24/17 06:25
[2017-12-28 07:02] LABS: Basophils # (Auto) 0.1 K/mm3 (0.0-0.1); Basophils % (Auto) 0.9 % (0.0-1.8); Eosinophils # (Auto) 0.1 K/mm3 (0.0-0.4); Hematocrit 21.1 % (35.5-45.6); Hemoglobin 7.5 gm/dl (11.8-15.2); Lymphocytes # (Auto) 0.9 K/mm3 (1.2-5.4); Lymphocytes % (Auto) 12.5 % (13.4-35.0); Mean Corpuscular HGB Conc 35 % (32-34); Mean Corpuscular Hemoglobin 33 pg (28-32); Mean Corpuscular Volume 94 fl (84-94); Monocytes # (Auto) 0.9 K/mm3 (0.0-0.8); Monocytes % (Auto) 12.3 % (0.0-7.3); Red Blood Count 2.25 M/mm3 (3.65-5.03); Red Cell Distribution Width 16.2 % (13.2-15.2)
[2017-12-28 07:15] LABS: Platelet Count 78 K/mm3 (140-440)
[2017-12-28] MEDS: PROAMATINE PO SCH ×3 (08:59→20:00)
[2017-12-28 09:46] LABS: INR 1.97 (0.87-1.13)
[2017-12-28 09:47] LABS: Partial Thromboplastin Time 53.1 Sec. (24.2-36.6)
--- NOTE | 2017-12-28 09:57 | Gastroenterology Progress Note ---
Assessment and Plan 1.anemia 2.hx of cirrhosis with esophageal varices -INR 1.97 -HGB 7.5 -continue to monitor H/H and transfuse as needed -no active signs of bleeding overnight or this am -s/p EGD that revealed two columns of Grade I esophageal varices (not amenable to banding) and portal gastropathy but no gastric varices or blood/clots in upper GI tract (EV minimal, and patient had a TIPS) -etiology-possibly due to combined kidney/liver disease (hemolysis?)-no hematochezia to suggest colonic source -wound not recommend a colonoscopy in his debilitated state -hematology following -patient's is considering transporting him to [place] to be evaluated by Dr. Ahs (net washer) for a 2nd opinion on possible liver/kidney transplant via the [facility] -continue PPI and current care -no further recommendations per GI standpoint at this time -will sign off, please call if needed Subjective Date of service: 12/28/17 Principal diagnosis: Anemia Interval history: No acute events overnight. No active signs of bleeding. Denies abd pain or N/V. Tolerating diet. Objective - Constitutional Vitals: Temp Pulse Resp BP Pulse Ox 97.8 F 95 H 20 94/52 97 12/28/17 04:15 12/28/17 04:15 12/28/17 04:15 12/28/17 04:15 12/28/17 04:15 General appearance: no acute distress - Respiratory Respiratory: bilateral: CTA - Cardiovascular Rhythm: regular Heart Sounds: Present: S1 & S2 - Gastrointestinal General gastrointestinal: Present: soft, non-tender, non-distended, normal bowel sounds - Labs CBC & Chem 7: 12/28/17 06:24 12/27/17 06:34 Labs: Laboratory Results - last 24 hr 12/24/17 12/27/17 12/28/17 06:25 06:34 06:24 WBC 7.5 RBC 2.25 L Hgb 7.5 L Hct 21.1 L MCV 94 MCH 33 H MCHC 35 H RDW 16.2 H Plt Count 78 L D Lymph % (Auto) 12.5 L [place] % (Auto) 12.3 H Eos % (Auto) 1.0 Baso % (Auto) 0.9 Lymph # 0.9 L [place] # 0.9 H Eos # 0.1 Baso # 0.1 Seg Neutrophils % 73.3 H Seg Neutrophils # 5.5 PT INR APTT Iron 78 TIBC 77 L Lactate Dehydrogenase 302 H Blood Type A NEGATIVE Antibody Screen Negative Crossmatch See Detail 12/28/17 09:00 WBC RBC Hgb Hct MCV MCH MCHC RDW Plt Count Lymph % (Auto) [place] % (Auto) Eos % (Auto) Baso % (Auto) Lymph # [place] # Eos # Baso # Seg Neutrophils % Seg Neutrophils # PT 23.7 H INR 1.97 H APTT 53.1 H Iron TIBC Lactate Dehydrogenase Blood Type Antibody Screen Crossmatch
[2017-12-28] MEDS: PROTONIX FEEDTUBE SCH (11:45)
[2017-12-28] MEDS: CEPHULAC PO SCH ×2 (11:45→22:54)
[2017-12-28] MEDS: XIFAXAN PO SCH ×2 (11:45→22:54)
[2017-12-28] MEDS: THERAGRAN-M Tab PO SCH (11:45)
[2017-12-28] MEDS: LOPRESSOR PO SCH ×2 (11:45→22:00)
--- NOTE | 2017-12-28 15:04 | Progress Note ---
Assessment and Plan Impression: * Oliguric CARMEN secondary to ATN vs HRS --s/p permcath placement 12/17/17 and initiation of dialysis * Sepsis * Severe anemia secondary to ABL * Rectal bleeding * Cirrhosis w/ esophageal varices * Hyperbilirubinemia * Pyuria * Metabolic acidosis, resolved * Hyperkalemia, resolved Plan: * Patient remains oliguric w/o evidence of recovery. Continue dialysis - MWF schedule * Empiric abx for SBP and UTI * Transfusion pRBC per primary team * Consultants' recommendations reviewed, s/p egd * prn prbcs, epogen with hd * Medical management of electrolytes * Avoid potential nephrotoxic agents * Dose medications for renal function * Outpatient HD MWF at [facility] arranged Subjective Date of service: 12/28/17 Principal diagnosis: Anemia Interval history: patient appears more alert today . Objective - Vital Signs Vital signs: Vital Signs - 12hr 12/28/17 12/28/17 04:15 07:59 Temperature 97.8 F 98.5 F Pulse Rate 95 H 71 Respiratory 20 16 Rate Blood Pressure 91/51 Blood Pressure 94/52 [Left] O2 Sat by Pulse 97 95 Oximetry - General Appearance General appearance: well-developed, well-nourished, appears stated age EENT: PERRL, mucous membranes moist Neck: no JVD, no thyromegaly, no carotid bruit, supple, other (left IJ permcath in place ) Respiratory: Present: Clear to Ascultation Cardiology: regular, normal heart rate, S1S2, no murmurs Gastrointestinal: normal, normoactive bowel sounds Integumentary: other (no edema ) - Lab 12/28/17 06:24 12/27/17 06:34 Most recent lab results Calcium 8.1 mg/dL (8.4-10.2) L 12/27/17 06:34 Phosphorus 2.40 mg/dL (2.5-4.5) L 12/26/17 05:59 Magnesium 1.40 mg/dL (1.7-2.3) L 12/26/17 05:59 Urine Creatinine 122.5 mg/dL (0.1-20.0) H 12/14/17 Unknown
[2017-12-28] MEDS ORDERED: NACL 0.9% 100 ML IV PRN (17:52)
[2017-12-28] MEDS ORDERED: NACL 0.9 (PRIMING MACHINE ONLY DIALYSIS) MC ONE (18:31)
--- NOTE | 2017-12-28 19:15 | Progress Note ---
Assessment and Plan Sepsis, possibly SBP Acute encephalopathy Severe anemia Lactic acidosis, multifactorial Cirrhosis with esophageal varices Rectal bleeding Coagulopathy Metabolic acidosis, multifactorial Respiratory alkalosis Nonoliguric CARMEN secondary to prerenal azotemia due to hypoperfusion ATN vs HRS Moderate protein calorie malnutrition -Get CXR to follow up on the right pleural effusion. Get PT/INR. If persistent effusion, plan for thoracentesis which is scheduled for Sunday. If INR is elevated on Sunday morning, plan for FFP transfusion on Sunday, to reverse coagulopathy to allow for thoracentesis -Aspiration precautions -continue chronic home medications, including rifaximin and midodrine -Avoid nephrotoxics and adjust all medications for GFRs -Continue therapeutic PPI -Monitor off antibiotics -Continue with lactulose to titrate to 2-3 bowel movements a day -SCDs for VTE prophylaxis in view of GIB and coagulopathy -Supportive transfusions - Continue with nutritional support - Continue PT/OT FULL CODE STATUS PROGNOSIS GUARDED Subjective Date of service: 12/28/17 Principal diagnosis: CARMEN on CKD; Acute Encephalopathy; Sepsis Syndrome; Anemia Interval history: Seen and examined. vitals, labs, medications, chart and imaging reviewed. 24 hour events reviewed. No fevers or chills, no nausea or vomiting No shortness of breath. States he feels ok Confused Objective Vital Signs - 12hr 12/28/17 12/28/17 12/28/17 07:59 12:42 15:45 Temperature 98.5 F 98.6 F 98.6 F Pulse Rate 71 73 70 Respiratory 16 18 20 Rate Blood Pressure 91/51 87/57 92/53 O2 Sat by Pulse 95 95 Oximetry 12/28/17 12/28/17 12/28/17 15:55 16:00 16:15 Temperature Pulse Rate 69 73 70 Respiratory Rate Blood Pressure 89/50 83/50 92/57 O2 Sat by Pulse Oximetry 12/28/17 12/28/17 12/28/17 16:30 16:45 17:00 Temperature Pulse Rate 68 66 68 Respiratory Rate Blood Pressure 93/58 98/55 97/57 O2 Sat by Pulse Oximetry 12/28/17 12/28/17 12/28/17 17:15 17:30 17:45 Temperature Pulse Rate 69 74 73 Respiratory Rate Blood Pressure 92/56 101/56 91/58 O2 Sat by Pulse Oximetry 12/28/17 12/28/17 12/28/17 18:00 18:15 18:30 Temperature Pulse Rate 73 72 72 Respiratory Rate Blood Pressure 104/62 101/58 94/56 O2 Sat by Pulse Oximetry 12/28/17 18:45 Temperature Pulse Rate 72 Respiratory Rate Blood Pressure 98/58 O2 Sat by Pulse Oximetry Constitutional: alert, other (chronically ill looking elderly AAM, normocephalic and atraumatic) Eyes: non-icteric ENT: oropharynx moist, other (mallampati 2) Neck: supple, no lymphadenopathy, no JVD, other (no thyromegaly) Effort: normal Ascultation: Bilateral: diminished breath sounds (bases), rhonchi (scant) Percussion: Bilateral: not dull, dull (bases) Cardiovascular: regular rate and rhythm, other (S1,S2, no murmurms, gallops or rubs) Gastrointestinal: normoactive bowel sounds, soft, non-tender, other (distended) Integumentary: rash Extremities: no cyanosis, no edema, pulses normal, no ischemia or petechiae, cool Neurologic: non-focal exam, pupils equal and round, motor strength normal and ( weak), other (alert, awake) Psychiatric: other (normal affect, confusion) CBC and BMP: 12/29/17 03:59 12/29/17 03:59 ABG, PT/INR, D-dimer: ABG POC ABG pH 7.452 (7.35-7.45) H 12/12/17 09:13 POC ABG pCO2 22.2 (35-45) L 12/12/17 09:13 POC ABG pO2 75 (80-105) L 12/12/17 09:13 POC ABG HCO3 15.5 12/12/17 09:13 POC ABG Total CO2 16 12/12/17 09:13 POC ABG O2 Sat 96 12/12/17 09:13 PT/INR, D-dimer PT 23.7 Sec. (12.2-14.9) H 12/28/17 09:00 INR 1.97 (0.87-1.13) H 12/28/17 09:00 D-Dimer 1215.06 ng/mlDDU (0-234) H 12/12/17 19:50 Abnormal lab findings: Abnormal Labs 0712/10/17 12/10/17 13:14 13:14 23:05 RBC 2.31 L Hgb 7.3 L Hct 21.5 L MCH MCHC RDW 17.7 H Plt Count 61 L Lymph % (Auto) [place] % (Auto) Lymph # [place] # Seg Neutrophils % Seg Neuts % (Manual) 81.0 H Lymphocytes % (Manual) 11.0 L Lymphocytes # (Manual) 0.6 L PT INR APTT Fibrinogen D-Dimer POC ABG pH POC ABG pCO2 POC ABG pO2 Sodium 136 L Potassium 5.2 H Chloride Carbon Dioxide 15 L BUN 47 H Creatinine 5.2 H Glucose 127 H POC Glucose Lactic Acid Calcium Phosphorus Magnesium TIBC Ferritin Total Bilirubin 3.50 H Direct Bilirubin AST 71 H Ammonia Lactate Dehydrogenase NT-Pro-B Natriuret Pep Total Protein Albumin 2.6 L Lipase Vitamin B12 Urine WBC (Auto) 10.0 H Urine Creatinine Ur Creatinine 24 Hour Digoxin Crossmatch 12/10/17 12/10/17 12/10/17 23:14 23:14 23:14 RBC Hgb Hct MCH MCHC RDW Plt Count Lymph % (Auto) [place] % (Auto) Lymph # [place] # Seg Neutrophils % Seg Neuts % (Manual) Lymphocytes % (Manual) Lymphocytes # (Manual) PT INR APTT Fibrinogen D-Dimer POC ABG pH POC ABG pCO2 POC ABG pO2 Sodium Potassium Chloride Carbon Dioxide BUN Creatinine Glucose POC Glucose Lactic Acid 2.40 H* Calcium Phosphorus Magnesium TIBC Ferritin Total Bilirubin Direct Bilirubin AST Ammonia 134.0 H Lactate Dehydrogenase NT-Pro-B Natriuret Pep 9558 H Total Protein Albumin Lipase Vitamin B12 Urine WBC (Auto) Urine Creatinine Ur Creatinine 24 Hour Digoxin Crossmatch 12/10/17 12/11/17 12/11/17 23:14 00:29 03:33 RBC Hgb Hct MCH MCHC RDW Plt Count Lymph % (Auto) [place] % (Auto) Lymph # [place] # Seg Neutrophils % Seg Neuts % (Manual) Lymphocytes % (Manual) Lymphocytes # (Manual) PT INR APTT Fibrinogen D-Dimer POC ABG pH POC ABG pCO2 POC ABG pO2 Sodium Potassium Chloride Carbon Dioxide BUN Creatinine Glucose POC Glucose Lactic Acid 2.80 H* 3.00 H* Calcium Phosphorus Magnesium TIBC Ferritin Total Bilirubin Direct Bilirubin AST Ammonia Lactate Dehydrogenase NT-Pro-B Natriuret Pep Total Protein Albumin Lipase 7 L Vitamin B12 Urine WBC (Auto) Urine Creatinine Ur Creatinine 24 Hour Digoxin Crossmatch 12/11/17 12/11/17 12/11/17 04:08 04:34 04:34 RBC Hgb Hct MCH MCHC RDW Plt Count Lymph % (Auto) [place] % (Auto) Lymph # [place] # Seg Neutrophils % Seg Neuts % (Manual) Lymphocytes % (Manual) Lymphocytes # (Manual) PT 19.1 H INR 1.51 H APTT 45.7 H Fibrinogen D-Dimer POC ABG pH POC ABG pCO2 POC ABG pO2 Sodium Potassium Chloride Carbon Dioxide BUN Creatinine Glucose POC Glucose 113 H Lactic Acid 3.10 H* Calcium Phosphorus Magnesium TIBC Ferritin Total Bilirubin Direct Bilirubin AST Ammonia Lactate Dehydrogenase NT-Pro-B Natriuret Pep Total Protein Albumin Lipase Vitamin B12 Urine WBC (Auto) Urine Creatinine Ur Creatinine 24 Hour Digoxin Crossmatch 12/11/17 12/11/17 12/11/17 06:46 07:26 09:42 RBC Hgb Hct MCH MCHC RDW Plt Count Lymph % (Auto) [place] % (Auto) Lymph # [place] # Seg Neutrophils % Seg Neuts % (Manual) Lymphocytes % (Manual) Lymphocytes # (Manual) PT INR APTT Fibrinogen D-Dimer POC ABG pH POC ABG pCO2 POC ABG pO2 Sodium Potassium Chloride Carbon Dioxide BUN Creatinine Glucose POC Glucose Lactic Acid 2.70 H* 2.80 H* 2.90 H* Calcium Phosphorus Magnesium TIBC Ferritin Total Bilirubin Direct Bilirubin AST Ammonia Lactate Dehydrogenase NT-Pro-B Natriuret Pep Total Protein Albumin Lipase Vitamin B12 Urine WBC (Auto) Urine Creatinine Ur Creatinine 24 Hour Digoxin Crossmatch 12/11/17 12/11/17 12/11/17 13:12 14:06 23:14 RBC Hgb Hct MCH MCHC RDW Plt Count Lymph % (Auto) [place] % (Auto) Lymph # [place] # Seg Neutrophils % Seg Neuts % (Manual) Lymphocytes % (Manual) Lymphocytes # (Manual) PT INR APTT Fibrinogen D-Dimer POC ABG pH POC ABG pCO2 POC ABG pO2 Sodium Potassium Chloride Carbon Dioxide BUN Creatinine Glucose POC Glucose Lactic Acid 3.10 H* 3.10 H* 3.70 H* Calcium Phosphorus Magnesium TIBC Ferritin Total Bilirubin Direct Bilirubin AST Ammonia Lactate Dehydrogenase NT-Pro-B Natriuret Pep Total Protein Albumin Lipase Vitamin B12 Urine WBC (Auto) Urine Creatinine Ur Creatinine 24 Hour Digoxin Crossmatch 12/11/17 12/12/17 12/12/17 23:23 03:41 03:41 RBC 2.17 L Hgb 7.0 L Hct 19.9 L* MCH 33 H MCHC 35 H RDW 17.7 H Plt Count 62 L Lymph % (Auto) [place] % (Auto) Lymph # [place] # Seg Neutrophils % Seg Neuts % (Manual) 91.0 H Lymphocytes % (Manual) 3.0 L Lymphocytes # (Manual) 0.2 L PT INR APTT Fibrinogen D-Dimer POC ABG pH POC ABG pCO2 POC ABG pO2 Sodium Potassium 5.4 H Chloride Carbon Dioxide 12 L BUN 47 H Creatinine 4.5 H Glucose 103 H POC Glucose Lactic Acid Calcium 8.0 L Phosphorus Magnesium TIBC Ferritin Total Bilirubin 3.60 H Direct Bilirubin AST 58 H Ammonia Lactate Dehydrogenase NT-Pro-B Natriuret Pep Total Protein 5.9 L Albumin 2.5 L Lipase Vitamin B12 Urine WBC (Auto) Urine Creatinine Ur Creatinine 24 Hour Digoxin Crossmatch See Detail 12/12/17 12/12/17 12/12/17 07:00 09:13 17:55 RBC 2.06 L Hgb 6.6 L Hct 18.6 L* MCH MCHC 36 H RDW 17.8 H Plt Count 77 L Lymph % (Auto) [place] % (Auto) Lymph # [place] # Seg Neutrophils % Seg Neuts % (Manual) Lymphocytes % (Manual) Lymphocytes # (Manual) PT INR APTT Fibrinogen D-Dimer POC ABG pH 7.452 H POC ABG pCO2 22.2 L POC ABG pO2 75 L Sodium Potassium Chloride Carbon Dioxide BUN Creatinine Glucose POC Glucose 119 H Lactic Acid Calcium Phosphorus Magnesium TIBC Ferritin Total Bilirubin Direct Bilirubin AST Ammonia Lactate Dehydrogenase NT-Pro-B Natriuret Pep Total Protein Albumin Lipase Vitamin B12 Urine WBC (Auto) Urine Creatinine Ur Creatinine 24 Hour Digoxin Crossmatch 12/12/17 12/12/17 12/12/17 19:50 19:50 19:50 RBC 2.40 L Hgb 7.8 L Hct 21.3 L MCH 33 H MCHC 37 H RDW 16.1 H Plt Count 99 L Lymph % (Auto) [place] % (Auto) Lymph # [place] # Seg Neutrophils % Seg Neuts % (Manual) 87.0 H Lymphocytes % (Manual) 5.0 L Lymphocytes # (Manual) 0.3 L PT 21.9 H INR 1.79 H APTT 41.5 H Fibrinogen 128 L D-Dimer 1215.06 H POC ABG pH POC ABG pCO2 POC ABG pO2 Sodium Potassium Chloride Carbon Dioxide BUN Creatinine Glucose POC Glucose Lactic Acid Calcium Phosphorus Magnesium TIBC Ferritin Total Bilirubin 4.10 H Direct Bilirubin 1.6 H AST Ammonia Lactate Dehydrogenase NT-Pro-B Natriuret Pep Total Protein Albumin Lipase Vitamin B12 Urine WBC (Auto) Urine Creatinine Ur Creatinine 24 Hour Digoxin Crossmatch 12/12/17 12/12/17 12/12/17 19:50 19:50 23:46 RBC Hgb Hct MCH MCHC RDW Plt Count Lymph % (Auto) [place] % (Auto) Lymph # [place] # Seg Neutrophils % Seg Neuts % (Manual) Lymphocytes % (Manual) Lymphocytes # (Manual) PT INR APTT Fibrinogen D-Dimer POC ABG pH POC ABG pCO2 POC ABG pO2 Sodium Potassium Chloride Carbon Dioxide BUN Creatinine Glucose POC Glucose 110 H Lactic Acid Calcium Phosphorus Magnesium TIBC Ferritin Total Bilirubin Direct Bilirubin AST Ammonia Lactate Dehydrogenase 213 H NT-Pro-B Natriuret Pep Total Protein Albumin Lipase Vitamin B12 1465 H Urine WBC (Auto) Urine Creatinine Ur Creatinine 24 Hour Digoxin Crossmatch 12/13/17 12/13/17 12/13/17 04:00 04:00 05:12 RBC 2.32 L Hgb 7.4 L Hct 20.8 L MCH MCHC 36 H RDW 16.1 H Plt Count 134 L Lymph % (Auto) 13.1 L [place] % (Auto) 7.9 H Lymph # 0.8 L [place] # Seg Neutrophils % 76.3 H Seg Neuts % (Manual) Lymphocytes % (Manual) Lymphocytes # (Manual) PT INR APTT Fibrinogen D-Dimer POC ABG pH POC ABG pCO2 POC ABG pO2 Sodium Potassium Chloride Carbon Dioxide 21 L D BUN 48 H Creatinine 4.6 H Glucose 104 H POC Glucose 134 H Lactic Acid Calcium 8.1 L Phosphorus Magnesium TIBC Ferritin Total Bilirubin 4.70 H Direct Bilirubin AST 43 H Ammonia Lactate Dehydrogenase NT-Pro-B Natriuret Pep Total Protein 5.8 L Albumin 3.1 L Lipase Vitamin B12 Urine WBC (Auto) Urine Creatinine Ur Creatinine 24 Hour Digoxin Crossmatch 12/13/17 12/13/17 12/13/17 08:45 12:25 14:03 RBC Hgb Hct MCH MCHC RDW Plt Count Lymph % (Auto) [place] % (Auto) Lymph # [place] # Seg Neutrophils % Seg Neuts % (Manual) Lymphocytes % (Manual) Lymphocytes # (Manual) PT 20.5 H INR 1.65 H APTT Fibrinogen D-Dimer POC ABG pH POC ABG pCO2 POC ABG pO2 Sodium Potassium Chloride Carbon Dioxide BUN Creatinine Glucose POC Glucose 112 H Lactic Acid 3.70 H* Calcium Phosphorus Magnesium TIBC Ferritin Total Bilirubin Direct Bilirubin AST Ammonia Lactate Dehydrogenase NT-Pro-B Natriuret Pep Total Protein Albumin Lipase Vitamin B12 Urine WBC (Auto) Urine Creatinine Ur Creatinine 24 Hour Digoxin Crossmatch 12/13/17 12/13/17 12/13/17 14:03 18:52 21:09 RBC Hgb Hct MCH MCHC RDW Plt Count Lymph % (Auto) [place] % (Auto) Lymph # [place] # Seg Neutrophils % Seg Neuts % (Manual) Lymphocytes % (Manual) Lymphocytes # (Manual) PT INR APTT Fibrinogen D-Dimer POC ABG pH POC ABG pCO2 POC ABG pO2 Sodium Potassium Chloride Carbon Dioxide BUN Creatinine Glucose POC Glucose 110 H Lactic Acid 4.00 H* Calcium Phosphorus Magnesium TIBC Ferritin Total Bilirubin Direct Bilirubin AST Ammonia 87.0 H Lactate Dehydrogenase NT-Pro-B Natriuret Pep Total Protein Albumin Lipase Vitamin B12 Urine WBC (Auto) Urine Creatinine Ur Creatinine 24 Hour Digoxin Crossmatch 12/14/17 12/14/17 12/14/17 00:25 03:30 03:30 RBC 2.29 L Hgb 7.3 L Hct 20.7 L MCH MCHC 35 H RDW 16.2 H Plt Count 84 L Lymph % (Auto) 12.8 L [place] % (Auto) 8.3 H Lymph # 0.6 L [place] # Seg Neutrophils % 77.2 H Seg Neuts % (Manual) Lymphocytes % (Manual) Lymphocytes # (Manual) PT INR APTT Fibrinogen D-Dimer POC ABG pH POC ABG pCO2 POC ABG pO2 Sodium Potassium Chloride 96.1 L Carbon Dioxide BUN 48 H Creatinine 4.6 H Glucose 125 H POC Glucose 131 H Lactic Acid Calcium 7.9 L Phosphorus Magnesium TIBC Ferritin Total Bilirubin 4.70 H Direct Bilirubin AST 45 H Ammonia Lactate Dehydrogenase NT-Pro-B Natriuret Pep Total Protein 6.1 L Albumin 3.4 L Lipase Vitamin B12 Urine WBC (Auto) Urine Creatinine Ur Creatinine 24 Hour Digoxin Crossmatch 12/14/17 12/14/17 12/14/17 05:31 12:26 12:55 RBC Hgb Hct MCH MCHC RDW Plt Count Lymph % (Auto) [place] % (Auto) Lymph # [place] # Seg Neutrophils % Seg Neuts % (Manual) Lymphocytes % (Manual) Lymphocytes # (Manual) PT INR APTT Fibrinogen D-Dimer POC ABG pH POC ABG pCO2 POC ABG pO2 Sodium Potassium Chloride Carbon Dioxide BUN Creatinine Glucose POC Glucose 125 H 117 H Lactic Acid 3.40 H* Calcium Phosphorus Magnesium TIBC Ferritin Total Bilirubin Direct Bilirubin AST Ammonia Lactate Dehydrogenase NT-Pro-B Natriuret Pep Total Protein Albumin Lipase Vitamin B12 Urine WBC (Auto) Urine Creatinine Ur Creatinine 24 Hour Digoxin Crossmatch 12/14/17 12/14/17 12/14/17 15:26 17:26 18:07 RBC Hgb Hct MCH MCHC RDW Plt Count Lymph % (Auto) [place] % (Auto) Lymph # [place] # Seg Neutrophils % Seg Neuts % (Manual) Lymphocytes % (Manual) Lymphocytes # (Manual) PT INR APTT Fibrinogen D-Dimer POC ABG pH POC ABG pCO2 POC ABG pO2 Sodium Potassium Chloride Carbon Dioxide BUN Creatinine Glucose POC Glucose 143 H Lactic Acid 4.00 H* 3.90 H* Calcium Phosphorus Magnesium TIBC Ferritin Total Bilirubin Direct Bilirubin AST Ammonia Lactate Dehydrogenase NT-Pro-B Natriuret Pep Total Protein Albumin Lipase Vitamin B12 Urine WBC (Auto) Urine Creatinine Ur Creatinine 24 Hour Digoxin Crossmatch 12/14/17 12/15/17 12/15/17 Unknown 00:08 04:51 RBC 2.27 L Hgb 7.3 L Hct 20.7 L MCH MCHC 35 H RDW 16.1 H Plt Count 92 L Lymph % (Auto) 12.5 L [place] % (Auto) 10.4 H Lymph # 0.6 L [place] # Seg Neutrophils % 74.7 H Seg Neuts % (Manual) Lymphocytes % (Manual) Lymphocytes # (Manual) PT INR APTT Fibrinogen D-Dimer POC ABG pH POC ABG pCO2 POC ABG pO2 Sodium Potassium Chloride Carbon Dioxide BUN Creatinine Glucose POC Glucose 124 H Lactic Acid Calcium Phosphorus Magnesium TIBC Ferritin Total Bilirubin Direct Bilirubin AST Ammonia Lactate Dehydrogenase NT-Pro-B Natriuret Pep Total Protein Albumin Lipase Vitamin B12 Urine WBC (Auto) Urine Creatinine 122.5 H Ur Creatinine 24 Hour 0.3 L Digoxin Crossmatch 12/15/17 12/15/17 12/15/17 04:51 04:51 05:56 RBC Hgb Hct MCH MCHC RDW Plt Count Lymph % (Auto) [place] % (Auto) Lymph # [place] # Seg Neutrophils % Seg Neuts % (Manual) Lymphocytes % (Manual) Lymphocytes # (Manual) PT INR APTT Fibrinogen D-Dimer POC ABG pH POC ABG pCO2 POC ABG pO2 Sodium Potassium 3.5 L Chloride 92.6 L Carbon Dioxide BUN 50 H Creatinine 4.8 H Glucose 141 H POC Glucose 143 H Lactic Acid Calcium 7.9 L Phosphorus Magnesium TIBC Ferritin Total Bilirubin 3.60 H Direct Bilirubin AST 44 H Ammonia 24.0 L Lactate Dehydrogenase NT-Pro-B Natriuret Pep Total Protein 6.1 L Albumin 3.8 L Lipase Vitamin B12 Urine WBC (Auto) Urine Creatinine Ur Creatinine 24 Hour Digoxin Crossmatch 12/15/17 12/15/17 12/16/17 12:17 23:10 07:04 RBC Hgb Hct MCH MCHC RDW Plt Count Lymph % (Auto) [place] % (Auto) Lymph # [place] # Seg Neutrophils % Seg Neuts % (Manual) Lymphocytes % (Manual) Lymphocytes # (Manual) PT INR APTT Fibrinogen D-Dimer POC ABG pH POC ABG pCO2 POC ABG pO2 Sodium Potassium Chloride Carbon Dioxide BUN Creatinine Glucose POC Glucose 127 H 157 H 147 H Lactic Acid Calcium Phosphorus Magnesium TIBC Ferritin Total Bilirubin Direct Bilirubin AST Ammonia Lactate Dehydrogenase NT-Pro-B Natriuret Pep Total Protein Albumin Lipase Vitamin B12 Urine WBC (Auto) Urine Creatinine Ur Creatinine 24 Hour Digoxin Crossmatch 12/16/17 12/16/17 12/16/17 11:35 12:37 12:37 RBC 2.21 L Hgb 6.9 L Hct 20.2 L MCH MCHC RDW 16.2 H Plt Count 50 L Lymph % (Auto) [place] % (Auto) 9.7 H Lymph # 0.7 L [place] # Seg Neutrophils % 73.1 H Seg Neuts % (Manual) Lymphocytes % (Manual) Lymphocytes # (Manual) PT INR APTT Fibrinogen D-Dimer POC ABG pH POC ABG pCO2 POC ABG pO2 Sodium Potassium Chloride 88.2 L Carbon Dioxide BUN 52 H Creatinine 5.5 H Glucose 107 H POC Glucose 134 H Lactic Acid Calcium 7.8 L Phosphorus Magnesium TIBC Ferritin Total Bilirubin 2.60 H Direct Bilirubin AST 49 H Ammonia Lactate Dehydrogenase NT-Pro-B Natriuret Pep Total Protein Albumin 3.6 L Lipase Vitamin B12 Urine WBC (Auto) Urine Creatinine Ur Creatinine 24 Hour Digoxin Crossmatch 12/16/17 12/16/17 12/16/17 18:06 20:45 23:34 RBC Hgb Hct MCH MCHC RDW Plt Count Lymph % (Auto) [place] % (Auto) Lymph # [place] # Seg Neutrophils % Seg Neuts % (Manual) Lymphocytes % (Manual) Lymphocytes # (Manual) PT INR APTT Fibrinogen D-Dimer POC ABG pH POC ABG pCO2 POC ABG pO2 Sodium Potassium Chloride Carbon Dioxide BUN Creatinine Glucose POC Glucose 133 H 139 H Lactic Acid Calcium Phosphorus Magnesium TIBC Ferritin Total Bilirubin Direct Bilirubin AST Ammonia Lactate Dehydrogenase NT-Pro-B Natriuret Pep Total Protein Albumin Lipase Vitamin B12 Urine WBC (Auto) Urine Creatinine Ur Creatinine 24 Hour Digoxin Crossmatch See Detail 12/17/17 12/17/17 12/17/17 05:27 05:27 06:11 RBC 2.10 L Hgb 6.6 L Hct 19.2 L* MCH MCHC 35 H RDW 16.5 H Plt Count 65 L Lymph % (Auto) 12.6 L [place] % (Auto) 9.6 H Lymph # 0.7 L [place] # Seg Neutrophils % 75.8 H Seg Neuts % (Manual) Lymphocytes % (Manual) Lymphocytes # (Manual) PT INR APTT Fibrinogen D-Dimer POC ABG pH POC ABG pCO2 POC ABG pO2 Sodium 135 L Potassium 3.4 L Chloride 84.9 L Carbon Dioxide 33 H BUN 53 H Creatinine 5.9 H Glucose POC Glucose 110 H Lactic Acid Calcium 7.7 L Phosphorus Magnesium TIBC Ferritin Total Bilirubin 2.70 H Direct Bilirubin AST 50 H Ammonia Lactate Dehydrogenase NT-Pro-B Natriuret Pep Total Protein 6.2 L Albumin 3.7 L Lipase Vitamin B12 Urine WBC (Auto) Urine Creatinine Ur Creatinine 24 Hour Digoxin Crossmatch 12/17/17 12/18/17 12/18/17 09:34 00:05 05:21 RBC 3.35 L Hgb 10.3 L D Hct 30.4 L D MCH MCHC RDW 16.2 H Plt Count 57 L Lymph % (Auto) 8.0 L [place] % (Auto) 10.9 H Lymph # 0.6 L [place] # Seg Neutrophils % 80.2 H Seg Neuts % (Manual) Lymphocytes % (Manual) Lymphocytes # (Manual) PT 23.9 H INR 1.99 H APTT Fibrinogen D-Dimer POC ABG pH POC ABG pCO2 POC ABG pO2 Sodium Potassium Chloride Carbon Dioxide BUN Creatinine Glucose POC Glucose 132 H Lactic Acid Calcium Phosphorus Magnesium TIBC Ferritin Total Bilirubin Direct Bilirubin AST Ammonia Lactate Dehydrogenase NT-Pro-B Natriuret Pep Total Protein Albumin Lipase Vitamin B12 Urine WBC (Auto) Urine Creatinine Ur Creatinine 24 Hour Digoxin Crossmatch 12/18/17 12/18/17 12/18/17 05:21 06:16 11:11 RBC Hgb Hct MCH MCHC RDW Plt Count Lymph % (Auto) [place] % (Auto) Lymph # [place] # Seg Neutrophils % Seg Neuts % (Manual) Lymphocytes % (Manual) Lymphocytes # (Manual) PT 34.7 H INR 3.17 H APTT Fibrinogen D-Dimer POC ABG pH POC ABG pCO2 POC ABG pO2 Sodium Potassium 3.5 L Chloride 87.1 L Carbon Dioxide BUN 35 H Creatinine 4.3 H Glucose 110 H POC Glucose 116 H Lactic Acid Calcium 8.1 L Phosphorus Magnesium TIBC Ferritin Total Bilirubin 5.10 H Direct Bilirubin AST 56 H Ammonia Lactate Dehydrogenase NT-Pro-B Natriuret Pep Total Protein Albumin Lipase Vitamin B12 Urine WBC (Auto) Urine Creatinine Ur Creatinine 24 Hour Digoxin Crossmatch 12/18/17 12/18/17 12/18/17 13:10 17:52 22:04 RBC Hgb Hct MCH MCHC RDW Plt Count Lymph % (Auto) [place] % (Auto) Lymph # [place] # Seg Neutrophils % Seg Neuts % (Manual) Lymphocytes % (Manual) Lymphocytes # (Manual) PT 25.9 H INR 2.20 H APTT Fibrinogen D-Dimer POC ABG pH POC ABG pCO2 POC ABG pO2 Sodium Potassium Chloride Carbon Dioxide BUN Creatinine Glucose POC Glucose 114 H 108 H Lactic Acid Calcium Phosphorus Magnesium TIBC Ferritin Total Bilirubin Direct Bilirubin AST Ammonia Lactate Dehydrogenase NT-Pro-B Natriuret Pep Total Protein Albumin Lipase Vitamin B12 Urine WBC (Auto) Urine Creatinine Ur Creatinine 24 Hour Digoxin Crossmatch 12/19/17 12/19/17 12/19/17 05:55 05:55 10:20 RBC 2.85 L Hgb 9.1 L Hct 25.7 L MCH MCHC 35 H RDW 16.4 H Plt Count 61 L Lymph % (Auto) [place] % (Auto) Lymph # [place] # Seg Neutrophils % Seg Neuts % (Manual) Lymphocytes % (Manual) Lymphocytes # (Manual) PT INR APTT Fibrinogen D-Dimer POC ABG pH POC ABG pCO2 POC ABG pO2 Sodium Potassium Chloride 94.5 L Carbon Dioxide BUN 27 H Creatinine 3.6 H Glucose POC Glucose 131 H Lactic Acid Calcium 8.2 L Phosphorus Magnesium TIBC Ferritin Total Bilirubin Direct Bilirubin AST Ammonia Lactate Dehydrogenase NT-Pro-B Natriuret Pep Total Protein Albumin Lipase Vitamin B12 Urine WBC (Auto) Urine Creatinine Ur Creatinine 24 Hour Digoxin Crossmatch 12/19/17 12/21/17 12/21/17 11:46 05:26 05:26 RBC 2.60 L Hgb 8.4 L Hct 23.9 L MCH MCHC 35 H RDW 16.2 H Plt Count 57 L Lymph % (Auto) 12.4 L [place] % (Auto) 10.7 H Lymph # [place] # 1.0 H Seg Neutrophils % 74.8 H Seg Neuts % (Manual) Lymphocytes % (Manual) Lymphocytes # (Manual) PT 26.2 H INR 2.23 H APTT Fibrinogen D-Dimer POC ABG pH POC ABG pCO2 POC ABG pO2 Sodium Potassium Chloride Carbon Dioxide BUN Creatinine Glucose POC Glucose Lactic Acid Calcium Phosphorus Magnesium TIBC Ferritin Total Bilirubin Direct Bilirubin AST Ammonia Lactate Dehydrogenase NT-Pro-B Natriuret Pep Total Protein Albumin Lipase Vitamin B12 Urine WBC (Auto) Urine Creatinine Ur Creatinine 24 Hour Digoxin 0.4 L Crossmatch 12/21/17 12/23/17 12/24/17 09:40 08:15 04:51 RBC 1.80 L Hgb 5.9 L* Hct 17.0 L* D MCH 33 H MCHC 35 H RDW 16.5 H Plt Count 53 L Lymph % (Auto) [place] % (Auto) Lymph # [place] # Seg Neutrophils % Seg Neuts % (Manual) Lymphocytes % (Manual) Lymphocytes # (Manual) PT 26.4 H 27.9 H INR 2.26 H 2.42 H APTT Fibrinogen D-Dimer POC ABG pH POC ABG pCO2 POC ABG pO2 Sodium Potassium Chloride Carbon Dioxide BUN Creatinine Glucose POC Glucose Lactic Acid Calcium Phosphorus Magnesium TIBC Ferritin Total Bilirubin Direct Bilirubin AST Ammonia Lactate Dehydrogenase NT-Pro-B Natriuret Pep Total Protein Albumin Lipase Vitamin B12 Urine WBC (Auto) Urine Creatinine Ur Creatinine 24 Hour Digoxin Crossmatch 12/24/17 12/24/17 12/24/17 04:51 06:25 08:20 RBC Hgb Hct MCH MCHC RDW Plt Count Lymph % (Auto) [place] % (Auto) Lymph # [place] # Seg Neutrophils % Seg Neuts % (Manual) Lymphocytes % (Manual) Lymphocytes # (Manual) PT 40.8 H INR 3.87 H APTT Fibrinogen D-Dimer POC ABG pH POC ABG pCO2 POC ABG pO2 Sodium Potassium 3.5 L Chloride Carbon Dioxide BUN 21 H Creatinine 4.4 H Glucose POC Glucose Lactic Acid Calcium 8.1 L Phosphorus Magnesium TIBC Ferritin Total Bilirubin Direct Bilirubin AST Ammonia Lactate Dehydrogenase NT-Pro-B Natriuret Pep Total Protein Albumin Lipase Vitamin B12 Urine WBC (Auto) Urine Creatinine Ur Creatinine 24 Hour Digoxin Crossmatch See Detail 12/24/17 12/24/17 12/25/17 19:21 19:21 05:27 RBC 2.31 L Hgb 7.3 L 7.4 L Hct 20.4 L 21.3 L MCH MCHC 35 H RDW 15.9 H Plt Count 39 L Lymph % (Auto) [place] % (Auto) 10.8 H Lymph # 0.9 L [place] # Seg Neutrophils % 71.9 H Seg Neuts % (Manual) Lymphocytes % (Manual) Lymphocytes # (Manual) PT 21.3 H INR 1.73 H APTT Fibrinogen D-Dimer POC ABG pH POC ABG pCO2 POC ABG pO2 Sodium Potassium Chloride Carbon Dioxide BUN Creatinine Glucose POC Glucose Lactic Acid Calcium Phosphorus Magnesium TIBC Ferritin Total Bilirubin Direct Bilirubin AST Ammonia Lactate Dehydrogenase NT-Pro-B Natriuret Pep Total Protein Albumin Lipase Vitamin B12 Urine WBC (Auto) Urine Creatinine Ur Creatinine 24 Hour Digoxin Crossmatch 12/25/17 12/25/17 12/25/17 05:27 05:27 12:24 RBC Hgb Hct MCH MCHC RDW Plt Count Lymph % (Auto) [place] % (Auto) Lymph # [place] # Seg Neutrophils % Seg Neuts % (Manual) Lymphocytes % (Manual) Lymphocytes # (Manual) PT 22.1 H INR 1.81 H APTT Fibrinogen D-Dimer POC ABG pH POC ABG pCO2 POC ABG pO2 Sodium Potassium 3.5 L Chloride 96.7 L Carbon Dioxide BUN Creatinine 3.2 H Glucose POC Glucose 140 H Lactic Acid Calcium 8.1 L Phosphorus Magnesium TIBC Ferritin Total Bilirubin Direct Bilirubin AST Ammonia Lactate Dehydrogenase NT-Pro-B Natriuret Pep Total Protein Albumin Lipase Vitamin B12 Urine WBC (Auto) Urine Creatinine Ur Creatinine 24 Hour Digoxin Crossmatch 12/26/17 12/26/17 12/27/17 05:59 05:59 06:34 RBC 2.01 L 2.52 L Hgb 6.6 L 8.2 L Hct 18.6 L* 23.2 L MCH 33 H MCHC 35 H 35 H RDW 16.6 H 15.3 H Plt Count 45 L 39 L Lymph % (Auto) 11.6 L [place] % (Auto) 10.3 H 11.2 H Lymph # 1.0 L 0.7 L [place] # Seg Neutrophils % 72.2 H 75.4 H Seg Neuts % (Manual) Lymphocytes % (Manual) Lymphocytes # (Manual) PT INR APTT Fibrinogen D-Dimer POC ABG pH POC ABG pCO2 POC ABG pO2 Sodium Potassium 3.3 L Chloride Carbon Dioxide BUN Creatinine 3.8 H Glucose 110 H POC Glucose Lactic Acid Calcium Phosphorus 2.40 L Magnesium 1.40 L TIBC Ferritin Total Bilirubin 7.10 H Direct Bilirubin AST 73 H Ammonia Lactate Dehydrogenase NT-Pro-B Natriuret Pep Total Protein Albumin 3.5 L Lipase Vitamin B12 Urine WBC (Auto) Urine Creatinine Ur Creatinine 24 Hour Digoxin Crossmatch 12/27/17 12/27/17 12/27/17 06:34 06:34 06:34 RBC Hgb Hct MCH MCHC RDW Plt Count Lymph % (Auto) [place] % (Auto) Lymph # [place] # Seg Neutrophils % Seg Neuts % (Manual) Lymphocytes % (Manual) Lymphocytes # (Manual) PT INR APTT Fibrinogen D-Dimer POC ABG pH POC ABG pCO2 POC ABG pO2 Sodium Potassium 3.3 L Chloride 95.4 L Carbon Dioxide BUN Creatinine 2.6 H Glucose 112 H POC Glucose Lactic Acid Calcium 8.1 L Phosphorus Magnesium TIBC 77 L Ferritin > 2000.0 H Total Bilirubin 8.00 H Direct Bilirubin AST 89 H Ammonia Lactate Dehydrogenase 302 H NT-Pro-B Natriuret Pep Total Protein Albumin 3.7 L Lipase Vitamin B12 Urine WBC (Auto) Urine Creatinine Ur Creatinine 24 Hour Digoxin Crossmatch 12/28/17 12/28/17 06:24 09:00 RBC 2.25 L Hgb 7.5 L Hct 21.1 L MCH 33 H MCHC 35 H RDW 16.2 H Plt Count 78 L D Lymph % (Auto) 12.5 L [place] % (Auto) 12.3 H Lymph # 0.9 L [place] # 0.9 H Seg Neutrophils % 73.3 H Seg Neuts % (Manual) Lymphocytes % (Manual) Lymphocytes # (Manual) PT 23.7 H INR 1.97 H APTT 53.1 H Fibrinogen D-Dimer POC ABG pH POC ABG pCO2 POC ABG pO2 Sodium Potassium Chloride Carbon Dioxide BUN Creatinine Glucose POC Glucose Lactic Acid Calcium Phosphorus Magnesium TIBC Ferritin Total Bilirubin Direct Bilirubin AST Ammonia Lactate Dehydrogenase NT-Pro-B Natriuret Pep Total Protein Albumin Lipase Vitamin B12 Urine WBC (Auto) Urine Creatinine Ur Creatinine 24 Hour Digoxin Crossmatch Chest x-ray: image reviewed Allied health notes reviewed: RT
--- NOTE | 2017-12-28 19:31 | Progress Note ---
Assessment and Plan - Patient Problems (1) Acute hepatic encephalopathy Current Visit: Yes Status: Acute Plan to address problem: see orders. continue with lactulose, recheck ammonia level. continue same. supportive. (2) Anemia Current Visit: Yes Status: Acute Plan to address problem: see orders. Replacement transfusion, if hgb less than 7.0 same as above. see notes above. same as above, stable. see notes above. (3) Renal failure Current Visit: Yes Status: Acute Plan to address problem: follow renal service. same as above. (4) Liver failure Current Visit: Yes Status: Acute Plan to address problem: Hepato-renal syndrome, continue with HD. Subjective Date of service: 12/28/17 Principal diagnosis: CARMEN on CKD; Acute Encephalopathy; Sepsis Syndrome; Anemia Interval history: Patient seen, restingm labs/notes reviewed. agree with management so far.labs showing consumptive coagulopathy. Patient seen, resting in bed, records/labs reviewed.PLT dropped some.Still no active bleeding. Patient seen/examined, records/labs / notes reviewed, hgb low at 6.9, will rec replacement transfusion,with HD tomorrow if planned to proceed with HD. Patient seen, resting in bed, labs/records reviewed, Hgb still low, transfusion written for today. Patient seen, resting in bed, labs reviewed, plt 57,000, rectal bleeding resolved, will continue to monitor patient/labs with you, and intervene with replacement transfusion, when needed. Patient seen, resting in bed, NAD, records reviewed. Patient seen, resting in bed, labs/records reviewed, no new issues, the latest plt fair, no any sign of bleeding. Patient seen, resting in bed, records reviewed, PLT 57,000, no bleeding. Patient seen, resting in bed, labs reviewed, hgb dropped drastically, due to rectal bleed.He is s/p blood transfusion. he is expected to continue to drop his hgb, as long as he continues to bleed. Will re check labs in am. Thrombocytopenia at above 20,000. will continue to monitor. Patient seen, resting in bed, labs reviewed, ,he will need some PLT+ FFP, especially if there is any plans for any procedure, otherwise, can watch if any active bleeding, or plt 20,000 or less. patient seen/examined, resting in bed, labs reviewed, s/p GI scope, and blood transfusion, Plt replacement ,to follow. patient seen, resting in bed, labs, reviewed, plt 39,000, replacement not given yesterday? Patient seen/examined, at the HD center, resting in bed, was able ro discuss his case with him, regarding prognosis, and options, as i had d/w his yesterday. he wants to talk with his first.. his PLT came up following transfusion, hgb at Fair level at this time,Will see how much this will hold in the next few days.He is really not a good candidate for any transplant ,given, his condition, and co morbid issues at this time. Prognosis is quite poor for Hepato-renal syndrome, let alone complicated by thrombocytopenia/anemia, and double vital organ failure.He has no real reserve as far as these organs are concerned.You may want to have a vince family talk with him, his , and doctors. Objective - Constitutional Vitals: Vital Signs - 12hr 12/28/17 12/28/17 12/28/17 07:59 12:42 15:45 Temperature 98.5 F 98.6 F 98.6 F Pulse Rate 71 73 70 Respiratory 16 18 20 Rate Blood Pressure 91/51 87/57 92/53 O2 Sat by Pulse 95 95 Oximetry 12/28/17 12/28/17 12/28/17 15:55 16:00 16:15 Temperature Pulse Rate 69 73 70 Respiratory Rate Blood Pressure 89/50 83/50 92/57 O2 Sat by Pulse Oximetry 12/28/17 12/28/17 12/28/17 16:30 16:45 17:00 Temperature Pulse Rate 68 66 68 Respiratory Rate Blood Pressure 93/58 98/55 97/57 O2 Sat by Pulse Oximetry 12/28/17 12/28/17 12/28/17 17:15 17:30 17:45 Temperature Pulse Rate 69 74 73 Respiratory Rate Blood Pressure 92/56 101/56 91/58 O2 Sat by Pulse Oximetry 12/28/17 12/28/17 12/28/17 18:00 18:15 18:30 Temperature Pulse Rate 73 72 72 Respiratory Rate Blood Pressure 104/62 101/58 94/56 O2 Sat by Pulse Oximetry 12/28/17 12/28/17 18:45 18:55 Temperature Pulse Rate 72 72 Respiratory Rate Blood Pressure 98/58 94/62 O2 Sat by Pulse Oximetry General appearance: Present: mild distress - EENT Eyes: PERRL, EOM intact ENT: hearing intact, clear oral mucosa Ears: bilateral: normal - Neck Neck: supple, normal ROM - Respiratory Respiratory effort: normal Respiratory: bilateral: CTA - Breasts Breasts: deferred - Cardiovascular Rhythm: regular Heart Sounds: Present: S1 & S2. Absent: gallop, rub Extremities: pulses intact, No edema, normal color, Full ROM - Gastrointestinal General gastrointestinal: Present: soft, non-tender, non-distended, normal bowel sounds Rectal Exam: deferred - Genitourinary Male genitourinary: deferred - Integumentary Integumentary: clear, warm, dry - Musculoskeletal Musculoskeletal: 1, strength equal bilaterally - Neurologic Neurologic: moves all extremities - Psychiatric Psychiatric: memory intact, appropriate mood/affect, intact judgment & insight - Labs CBC & Chem 7: 12/28/17 06:24 12/27/17 06:34 Labs: Abnormal lab results 12/24/17 12/28/17 12/28/17 Range/Units 06:25 06:24 09:00 RBC 2.25 L (3.65-5.03) M/mm3 Hgb 7.5 L (11.8-15.2) gm/dl Hct 21.1 L (35.5-45.6) % MCH 33 H (28-32) pg MCHC 35 H (32-34) % RDW 16.2 H (13.2-15.2) % Plt Count 78 L D (140-440) K/mm3 Lymph % (Auto) 12.5 L (13.4-35.0) % [place] % (Auto) 12.3 H (0.0-7.3) % Lymph # 0.9 L (1.2-5.4) K/mm3 [place] # 0.9 H (0.0-0.8) K/mm3 Seg Neutrophils % 73.3 H (40.0-70.0) % PT 23.7 H (12.2-14.9) Sec. INR 1.97 H (0.87-1.13) APTT 53.1 H (24.2-36.6) Sec. Crossmatch See Detail
--- NOTE | 2017-12-28 20:34 | Progress Note ---
Assessment and Plan Assessment and plan: --Acute blood loss anemia. Hemoglobin today 7.5 EGD did not reveal variceal bleeding, findings noted, Received total of 9 units of PRBC, mild improvement in hemoglobin --Severe thrombocytopenia; probably secondary to cirrhosis Mild improvement --NSVT, resolved ; continue Lopressor --Septic/hypovolemic shock. On midodrine, --Sepsis;cultures negative --Coagulopathy cirrhosis of liver ; received FFP and vitamin K , monitor INR --Rectal bleeding; resolved GI following --Cirrhosis with esophageal varices. Patient without signs of active bleeding. --Toxic metabolic/hepatic encephalopathy. Hyperammonemia on admission. Resolved --Acute on chronic kidney disease : ATN/sepsis/hypotension. On hemodialysis,Outpatient dialysis per case management --Hepatorenal syndrome; on HD, nephrology following --Bilateral pleural effusion right greater than left. Staff Climate Scientist recommends giving FFP and possible thoracentesis if needed Plan of care Discussed with patient and at bedside today 12/24 GI trying to contact wheat grower in [place][patient scheduled to see for evaluation for liver transplant on 12/30/2017 ] Plan of care reviewed with the and his and his nurse Possible discharge in 1-2 days if stable Patient will follow up with [place] [facility]/wheat grower for further management History Interval history: Sincerely and examined medical records reviewed Complaints of generalized weakness No new symptoms, GI cleared for discharge The patient is alert awake oriented 3 Cachectic and malnourished Vital signs reviewed Scheduled for hemodialysis today Hospitalist Physical - Constitutional Vitals: Temp Pulse Resp BP Pulse Ox 98.6 F 72 20 99/58 95 12/28/17 19:00 12/28/17 19:00 12/28/17 19:00 12/28/17 19:00 12/28/17 12:42 General appearance: Present: mild distress, cachectic, other (malnourished) - EENT Eyes: Present: PERRL, EOM intact - Neck Neck: Present: supple, normal ROM - Respiratory Respiratory effort: normal Respiratory: bilateral: diminished, rales, negative: rhonchi, wheezing - Cardiovascular Rhythm: regular Heart Sounds: Present: S1 & S2 - Extremities Extremities: no ischemia Extremity abnormal: edema - Abdominal General gastrointestinal: soft, non-tender, non-distended, normal bowel sounds - Integumentary Integumentary: Present: clear, warm - Psychiatric Psychiatric: appropriate mood/affect, cooperative - Neurologic Neurologic: CNII-XII intact, moves all extremities Results - Labs CBC & Chem 7: 12/28/17 06:24 08 06:34 Labs: Laboratory Last Values WBC 7.5 K/mm3 (4.5-11.0) 12/28/17 06:24 RBC 2.25 M/mm3 (3.65-5.03) L 12/28/17 06:24 Hgb 7.5 gm/dl (11.8-15.2) L 12/28/17 06:24 Hct 21.1 % (35.5-45.6) L 12/28/17 06:24 MCV 94 fl (84-94) 12/28/17 06:24 MCH 33 pg (28-32) H 12/28/17 06:24 MCHC 35 % (32-34) H 12/28/17 06:24 RDW 16.2 % (13.2-15.2) H 12/28/17 06:24 Plt Count 78 K/mm3 (140-440) L D 12/28/17 06:24 Lymph % (Auto) 12.5 % (13.4-35.0) L 12/28/17 06:24 [place] % (Auto) 12.3 % (0.0-7.3) H 12/28/17 06:24 Eos % (Auto) 1.0 % (0.0-4.3) 12/28/17 06:24 Baso % (Auto) 0.9 % (0.0-1.8) 12/28/17 06:24 Lymph # 0.9 K/mm3 (1.2-5.4) L 12/28/17 06:24 [place] # 0.9 K/mm3 (0.0-0.8) H 12/28/17 06:24 Eos # 0.1 K/mm3 (0.0-0.4) 12/28/17 06:24 Baso # 0.1 K/mm3 (0.0-0.1) 12/28/17 06:24 Add Manual Diff Complete 12/12/17 19:50 Total Counted 100 12/12/17 19:50 Seg Neutrophils % 73.3 % (40.0-70.0) H 12/28/17 06:24 Seg Neuts % (Manual) 87.0 % (40.0-70.0) H 12/12/17 19:50 Band Neutrophils % 0 % 12/12/17 19:50 Lymphocytes % (Manual) 5.0 % (13.4-35.0) L 12/12/17 19:50 Reactive Lymphs % (Man) 0 % 12/12/17 19:50 Monocytes % (Manual) 6.0 % (0.0-7.3) 12/12/17 19:50 Eosinophils % (Manual) 2.0 % (0.0-4.3) 12/12/17 19:50 Basophils % (Manual) 0 % (0.0-1.8) 12/12/17 19:50 Metamyelocytes % 0 % 12/12/17 19:50 Myelocytes % 0 % 12/12/17 19:50 Promyelocytes % 0 % 12/12/17 19:50 Blast Cells % 0 % 12/12/17 19:50 Nucleated RBC % Not Reportable 12/12/17 19:50 Seg Neutrophils # 5.5 K/mm3 (1.8-7.7) 12/28/17 06:24 Seg Neutrophils # Man 4.9 K/mm3 (1.8-7.7) 12/12/17 19:50 Band Neutrophils # 0.0 K/mm3 12/12/17 19:50 Lymphocytes # (Manual) 0.3 K/mm3 (1.2-5.4) L 12/12/17 19:50 Abs React Lymphs (Man) 0.0 K/mm3 12/12/17 19:50 Monocytes # (Manual) 0.3 K/mm3 (0.0-0.8) 12/12/17 19:50 Eosinophils # (Manual) 0.1 K/mm3 (0.0-0.4) 12/12/17 19:50 Basophils # (Manual) 0.0 K/mm3 (0.0-0.1) 12/12/17 19:50 Metamyelocytes # 0.0 K/mm3 12/12/17 19:50 Myelocytes # 0.0 K/mm3 12/12/17 19:50 Promyelocytes # 0.0 K/mm3 12/12/17 19:50 Blast Cells # 0.0 K/mm3 12/12/17 19:50 WBC Morphology Not Reportable 12/12/17 19:50 Hypersegmented Neuts Not Reportable 12/12/17 19:50 Hyposegmented Neuts Not Reportable 12/12/17 19:50 Hypogranular Neuts Not Reportable 12/12/17 19:50 Smudge Cells Not Reportable 12/12/17 19:50 Toxic Granulation Not Reportable 12/12/17 19:50 Toxic Vacuolation Not Reportable 12/12/17 19:50 Dohle Bodies Not Reportable 12/12/17 19:50 Pelger-Huet Anomaly Not Reportable 12/12/17 19:50 Eriberto Rods Not Reportable 12/12/17 19:50 Platelet Estimate Appears decreased 12/12/17 19:50 Clumped Platelets Not Reportable 12/12/17 19:50 Plt Clumps, EDTA Not Reportable 12/12/17 19:50 Large Platelets 1+ 12/12/17 19:50 Giant Platelets Not Reportable 12/12/17 19:50 Platelet Satelliting Not Reportable 12/12/17 19:50 Plt Morphology Comment Not Reportable 12/12/17 19:50 RBC Morphology Not Reportable 12/12/17 19:50 Dimorphic RBCs Not Reportable 12/12/17 19:50 Polychromasia Not Reportable 12/12/17 19:50 Hypochromasia 1+ 12/12/17 19:50 Poikilocytosis Not Reportable 12/12/17 19:50 Anisocytosis Not Reportable 12/12/17 19:50 Microcytosis Not Reportable 12/12/17 19:50 Macrocytosis Not Reportable 12/12/17 19:50 Spherocytes Not Reportable 12/12/17 19:50 Pappenheimer Bodies Not Reportable 12/12/17 19:50 Sickle Cells Not Reportable 12/12/17 19:50 Target Cells Not Reportable 12/12/17 19:50 Tear Drop Cells Not Reportable 12/12/17 19:50 Ovalocytes Not Reportable 12/12/17 19:50 Helmet Cells Not Reportable 12/12/17 19:50 [place] Bodies Not Reportable 12/12/17 19:50 [place] Rings Not Reportable 12/12/17 19:50 [place] Cells 1+ 12/12/17 19:50 Bite Cells Not Reportable 12/12/17 19:50 Crenated Cell Not Reportable 12/12/17 19:50 Elliptocytes Not Reportable 12/12/17 19:50 Acanthocytes (Spur) 1+ 12/12/17 19:50 Rouleaux Not Reportable 12/12/17 19:50 Hemoglobin C Crystals Not Reportable 12/12/17 19:50 Schistocytes Not Reportable 12/12/17 19:50 Malaria parasites Not Reportable 12/12/17 19:50 ESR 18 mm/Hr (0-20) 12/12/17 19:50 [place] Bodies Not Reportable 12/12/17 19:50 Hem Pathologist Commnt No 12/12/17 19:50 PT 23.7 Sec. (12.2-14.9) H 12/28/17 09:00 INR 1.97 (0.87-1.13) H 12/28/17 09:00 APTT 53.1 Sec. (24.2-36.6) H 12/28/17 09:00 Fibrinogen 128 mg/dl (211-480) L 12/12/17 19:50 D-Dimer 1215.06 ng/mlDDU (0-234) H 12/12/17 19:50 Factor VIII:C Activity 178 % (50-180) 12/12/17 20:30 POC ABG pH 7.452 (7.35-7.45) H 12/12/17 09:13 POC ABG pCO2 22.2 (35-45) L 12/12/17 09:13 POC ABG pO2 75 (80-105) L 12/12/17 09:13 POC ABG HCO3 15.5 12/12/17 09:13 POC ABG Total CO2 16 12/12/17 09:13 POC ABG O2 Sat 96 12/12/17 09:13 POC ABG Base Excess -8 12/12/17 09:13 FiO2 21 % 12/12/17 09:13 Sodium 139 mmol/L (137-145) 12/27/17 06:34 Potassium 3.3 mmol/L (3.6-5.0) L 12/27/17 06:34 Chloride 95.4 mmol/L (98-107) L 12/27/17 06:34 Carbon Dioxide 24 mmol/L (22-30) 12/27/17 06:34 Anion Gap 23 mmol/L 12/27/17 06:34 BUN 11 mg/dL (9-20) 12/27/17 06:34 Creatinine 2.6 mg/dL (0.8-1.5) H 12/27/17 06:34 Estimated GFR 30 ml/min 12/27/17 06:34 BUN/Creatinine Ratio 4 % 12/27/17 06:34 Glucose 112 mg/dL (75-100) H 12/27/17 06:34 POC Glucose 140 (70-105) H 12/25/17 12:24 Lactic Acid 3.90 mmol/L (0.7-2.0) H* 12/14/17 17:26 Calcium 8.1 mg/dL (8.4-10.2) L 12/27/17 06:34 Phosphorus 2.40 mg/dL (2.5-4.5) L 12/26/17 05:59 Magnesium 1.40 mg/dL (1.7-2.3) L 12/26/17 05:59 Iron 78 ug/dL (49-181) 12/27/17 06:34 TIBC 77 mcg/dL (250-450) L 12/27/17 06:34 Ferritin > 2000.0 ng/mL (13.0-400.0) H 12/27/17 06:34 Total Bilirubin 8.00 mg/dL (0.1-1.2) H 12/27/17 06:34 Direct Bilirubin 1.6 mg/dL (0-0.2) H 12/12/17 19:50 Indirect Bilirubin 2.5 mg/dL 12/12/17 19:50 AST 89 units/L (5-40) H 12/27/17 06:34 ALT 28 units/L (7-56) 12/27/17 06:34 Alkaline Phosphatase 70 units/L (35-129) 12/27/17 06:34 Ammonia 53.0 umol/L (25-60) 12/18/17 13:10 Lactate Dehydrogenase 302 units/L (91-180) H 12/27/17 06:34 Total Creatine Kinase 64 units/L (55-170) 12/10/17 23:14 C-Reactive Protein 0.30 mg/dL (0.00-1.30) 12/13/17 14:03 NT-Pro-B Natriuret Pep 9558 pg/mL (0-900) H 12/10/17 23:14 Total Protein 6.6 g/dL (6.3-8.2) 12/27/17 06:34 Albumin 3.7 g/dL (3.9-5) L 12/27/17 06:34 Albumin/Globulin Ratio 1.3 % 12/27/17 06:34 Lipase 7 units/L (13-60) L 12/10/17 23:14 Vitamin B12 1465 pg/mL (211-911) H 12/12/17 19:50 Folate 14.04 ng/mL (7.3-26.0) 12/12/17 19:50 TSH 2.560 mlU/mL (0.270-4.200) 12/16/17 12:37 Total Cortisol 8.6 mcg/dL () 12/16/17 12:37 Urine Color Yellow (Yellow) 12/10/17 23:05 Urine Turbidity Clear (Clear) 12/10/17 23:05 Urine pH 5.0 (5.0-7.0) 12/10/17 23:05 Ur Specific [place] 1.013 (1.003-1.030) 12/10/17 23:05 Urine Protein <15 mg/dl mg/dL (Negative) 12/10/17 23:05 Urine Glucose (UA) Neg mg/dL (Negative) 12/10/17 23:05 Urine Ketones Neg mg/dL (Negative) 12/10/17 23:05 Urine Blood Neg (Negative) 12/10/17 23:05 Urine Nitrite Neg (Negative) 12/10/17 23:05 Ur Reducing Substances Not Reportable 12/10/17 23:05 Urine Bilirubin Neg (Negative) 12/10/17 23:05 Urine Ictotest Not Reportable 12/10/17 23:05 Urine Urobilinogen < 2.0 mg/dL (<2.0) 12/10/17 23:05 Ur Leukocyte Esterase Sm (Negative) 12/10/17 23:05 Urine WBC (Auto) 10.0 /HPF (0.0-6.0) H 12/10/17 23:05 Urine RBC (Auto) 4.0 /HPF (0.0-6.0) 12/10/17 23:05 U Epithel Cells (Auto) < 1.0 /HPF (0-13.0) 12/10/17 23:05 Urine Mucus Few /HPF 12/10/17 23:05 Urine Total Volume 250 12/14/17 Unknown Urine Creatinine 122.5 mg/dL (0.1-20.0) H 12/14/17 Unknown Ur Creatinine 24 Hour 0.3 (0.8-2.8) L 12/14/17 Unknown Digoxin 0.4 ng/mL (0.9-2.0) L 12/21/17 05:26 Hepatitis A IgM Ab Non-reactive (NonReactive) 12/12/17 19:50 Hep Bs Antigen Non-reactive (Negative) 12/12/17 19:50 Hep B Core IgM Ab Non-reactive (NonReactive) 12/12/17 19:50 Hepatitis C Antibody Non-reactive (NonReactive) 12/12/17 19:50 Miscellaneous Test Flexitest 1 12/12/17 06:42 Blood Type A NEGATIVE 12/24/17 06:25 Antibody Screen Negative 12/24/17 06:25 Direct Antiglob Test Negative 12/12/17 20:41 JOANNE, Poly Interpret Negative 12/12/17 20:41 Crossmatch See Detail 12/24/17 06:25
[2017-12-29 01:16] LABS: INR 2.18 (0.87-1.13)
[2017-12-29 04:29] LABS: Basophils # (Auto) 0.1 K/mm3 (0.0-0.1); Basophils % (Auto) 1.7 % (0.0-1.8); Eosinophils # (Auto) 0.1 K/mm3 (0.0-0.4); Hematocrit 20.7 % (35.5-45.6); Hemoglobin 7.2 gm/dl (11.8-15.2); Lymphocytes # (Auto) 1.2 K/mm3 (1.2-5.4); Lymphocytes % (Auto) 15.7 % (13.4-35.0); Mean Corpuscular HGB Conc 35 % (32-34); Mean Corpuscular Hemoglobin 33 pg (28-32); Mean Corpuscular Volume 95 fl (84-94); Monocytes # (Auto) 0.8 K/mm3 (0.0-0.8); Monocytes % (Auto) 10.8 % (0.0-7.3); Red Blood Count 2.19 M/mm3 (3.65-5.03); Red Cell Distribution Width 16.9 % (13.2-15.2)
[2017-12-29 04:45] LABS: Platelet Count 75 K/mm3 (140-440)
[2017-12-29 05:05] LABS: Albumin 3.5 g/dL (3.9-5); Calcium 8.7 mg/dL (8.4-10.2)
--- NOTE | 2017-12-29 09:36 | Progress Note ---
Assessment and Plan 1. Non-ischemic cardiomyopathy left ventricular ejection fraction 45-50% 2. Paroxysmal atrial fibrillation 3. History of liver cirrhosis 4. Esophageal varices 5. End-stage renal disease on hemodialysis Plan Currently in sinus rhythm cardiac-[place] stable continue present medication Subjective Date of service: 12/29/17 Principal diagnosis: CARMEN on CKD; Acute Encephalopathy; Sepsis Syndrome; Anemia Interval history: No specific cardiac issues. Objective Vital Signs Temp Pulse Resp BP BP Pulse Ox 12/29/17 08:35 98.7 F 72 14 98/42 95 12/29/17 05:00 98.1 F 74 20 72/40 97 12/29/17 00:28 20 98 12/29/17 00:17 99.6 F 69 20 84/52 98 12/28/17 22:00 72 12/28/17 20:15 98.7 F 76 20 86/48 98 12/28/17 19:00 98.6 F 72 20 99/58 12/28/17 18:55 72 94/62 12/28/17 18:45 72 98/58 12/28/17 18:30 72 94/56 12/28/17 18:15 72 101/58 12/28/17 18:00 73 104/62 12/28/17 17:45 73 91/58 12/28/17 17:30 74 101/56 12/28/17 17:15 69 92/56 12/28/17 17:00 68 97/57 12/28/17 16:45 66 98/55 12/28/17 16:30 68 93/58 12/28/17 16:15 70 92/57 12/28/17 16:00 73 83/50 12/28/17 15:55 69 89/50 12/28/17 15:45 98.6 F 70 20 92/53 12/28/17 12:42 98.6 F 73 18 87/57 95 12/28/17 10:00 72 96 - Physical Examination General: No Apparent Distress HEENT: Positive: PERRL Neck: Positive: neck supple. Negative: JVD/HJR Cardiac: Positive: Regular Rate, S1/S2, S3, PMI, Laterally Displaced Lungs: Positive: clear to auscultation, No Wheeze, Rales, Rhonchi Neuro: Positive: Weakness Abdomen: Positive: Soft, Active Bowel Sounds Extremities: Absent: edema - Labs and Meds Cardiac Enzymes 12/29/17 Range/Units 03:59 AST 66 H (5-40) units/L Coagulation 12/28/17 12/29/17 Range/Units 09:00 00:34 PT 23.7 H 25.7 H (12.2-14.9) Sec. INR 1.97 H 2.18 H (0.87-1.13) APTT 53.1 H (24.2-36.6) Sec. CBC 12/29/17 Range/Units 03:59 WBC 7.5 (4.5-11.0) K/mm3 RBC 2.19 L (3.65-5.03) M/mm3 Hgb 7.2 L (11.8-15.2) gm/dl Hct 20.7 L (35.5-45.6) % Plt Count 75 L (140-440) K/mm3 Lymph # 1.2 (1.2-5.4) K/mm3 [place] # 0.8 (0.0-0.8) K/mm3 Eos # 0.1 (0.0-0.4) K/mm3 Baso # 0.1 (0.0-0.1) K/mm3 Comprehensive Metabolic Panel 12/29/17 Range/Units 03:59 Sodium 143 (137-145) mmol/L Potassium 4.3 D (3.6-5.0) mmol/L Chloride 104.2 (98-107) mmol/L Carbon Dioxide 24 (22-30) mmol/L BUN 10 (9-20) mg/dL Creatinine 2.3 H (0.8-1.5) mg/dL Glucose 111 H (75-100) mg/dL Calcium 8.7 (8.4-10.2) mg/dL AST 66 H (5-40) units/L ALT 26 (7-56) units/L Alkaline Phosphatase 59 (35-129) units/L Total Protein 6.7 (6.3-8.2) g/dL Albumin 3.5 L (3.9-5) g/dL - Telemetry EKG Rhythm: Sinus Rhythm - Allied health notes Allied health notes reviewed: RT
[2017-12-29] MEDS: CEPHULAC PO SCH ×2 (10:29→21:29)
[2017-12-29] MEDS: PROAMATINE PO SCH ×3 (10:29→21:29)
[2017-12-29] MEDS: PROTONIX FEEDTUBE SCH (10:29)
[2017-12-29] MEDS: LOPRESSOR PO SCH ×2 (10:30→21:30)
[2017-12-29] MEDS: THERAGRAN-M Tab PO SCH (10:30)
[2017-12-29] MEDS: XIFAXAN PO SCH ×2 (10:31→21:29)
--- NOTE | 2017-12-29 12:37 | Progress Note ---
Assessment and Plan Impression: * Oliguric CARMEN secondary to ATN vs HRS --s/p permcath placement 12/17/17 and initiation of dialysis * Sepsis * Severe anemia secondary to ABL * Rectal bleeding * Cirrhosis w/ esophageal varices * Hyperbilirubinemia * Pyuria * Metabolic acidosis, resolved * Hyperkalemia, resolved Plan: * Patient remains oliguric w/o evidence of recovery. Continue dialysis - MWF schedule * Empiric abx for SBP and UTI * Transfusion pRBC per primary team * Consultants' recommendations reviewed, s/p egd * prn prbcs, epogen with hd * Medical management of electrolytes * Avoid potential nephrotoxic agents * Dose medications for renal function * Outpatient HD MWF at [facility] arranged * D/W patient's at bedside Subjective Date of service: 12/29/17 Principal diagnosis: CARMEN on CKD; Acute Encephalopathy; Sepsis Syndrome; Anemia Interval history: patient appears more alert today . Objective - Vital Signs Vital signs: Vital Signs - 12hr 12/29/17 12/29/17 12/29/17 05:00 08:35 10:30 Temperature 98.1 F 98.7 F Pulse Rate 74 72 Respiratory 20 14 Rate Blood Pressure 72/40 98/42 Blood Pressure 98/42 [Left] O2 Sat by Pulse 97 95 Oximetry - General Appearance General appearance: chronically ill, frail EENT: PERRL, mucous membranes moist Neck: no JVD, no thyromegaly, no carotid bruit, supple, other (IJ permcath in place ) Respiratory: Present: Clear to Ascultation Cardiology: regular, normal heart rate, S1S2, no murmurs Gastrointestinal: normal, normoactive bowel sounds Integumentary: other (no edema ) - Lab 12/29/17 03:59 12/29/17 03:59 Most recent lab results Calcium 8.7 mg/dL (8.4-10.2) 12/29/17 03:59 Phosphorus 2.40 mg/dL (2.5-4.5) L 12/26/17 05:59 Magnesium 1.40 mg/dL (1.7-2.3) L 12/26/17 05:59 Urine Creatinine 122.5 mg/dL (0.1-20.0) H 12/14/17 Unknown
--- NOTE | 2017-12-29 13:04 | Progress Note ---
Assessment and Plan Sepsis, possibly SBP Acute encephalopathy Severe anemia Lactic acidosis, multifactorial Cirrhosis with esophageal varices Rectal bleeding Coagulopathy Metabolic acidosis, multifactorial Respiratory alkalosis Nonoliguric CARMEN secondary to prerenal azotemia due to hypoperfusion ATN vs HRS Moderate protein calorie malnutrition -PT/INR remains elevated. Get CXR in am If persistent effusion, plan for thoracentesis which is scheduled for Sunday. If INR is elevated on Sunday morning, plan for FFP transfusion on Sunday, to reverse coagulopathy to allow for thoracentesis -Aspiration precautions -continue chronic home medications, including rifaximin and midodrine -Avoid nephrotoxics and adjust all medications for GFRs -Continue therapeutic PPI -Monitor off antibiotics -Continue with lactulose to titrate to 2-3 bowel movements a day -SCDs for VTE prophylaxis in view of GIB and coagulopathy -Supportive transfusions - Continue with nutritional support, get RD for calorie count - Continue PT/OT FULL CODE STATUS PROGNOSIS GUARDED Subjective Date of service: 12/29/17 Principal diagnosis: CARMEN on CKD; Acute Encephalopathy; Sepsis Syndrome; Anemia Interval history: Seen and examined. vitals, labs, medications, chart and imaging reviewed. 24 hour events reviewed. No fevers or chills, no nausea or vomiting No shortness of breath. States he feels ok Sleeping but rousable. Appetite remains, suboptimal Objective Vital Signs - 12hr 12/29/17 12/29/17 12/29/17 05:00 08:35 10:30 Temperature 98.1 F 98.7 F Pulse Rate 74 72 Respiratory 20 14 Rate Blood Pressure 72/40 98/42 Blood Pressure 98/42 [Left] O2 Sat by Pulse 97 95 Oximetry Constitutional: alert, other (chronically ill looking elderly AAM, normocephalic and atraumatic) Eyes: non-icteric ENT: oropharynx moist, other (mallampati 2) Neck: supple, no lymphadenopathy, no JVD, other (no thyromegaly) Effort: normal Ascultation: Bilateral: diminished breath sounds (bases), rhonchi (scant) Percussion: Bilateral: not dull, dull (bases) Cardiovascular: regular rate and rhythm, other (S1,S2, no murmurms, gallops or rubs) Gastrointestinal: normoactive bowel sounds, soft, non-tender, other (distended) Integumentary: rash Extremities: no cyanosis, no edema, pulses normal, no ischemia or petechiae, cool Neurologic: non-focal exam, pupils equal and round, motor strength normal and ( weak), other (alert, awake) Psychiatric: other (normal affect, confusion) CBC and BMP: 12/29/17 03:59 12/29/17 03:59 ABG, PT/INR, D-dimer: ABG POC ABG pH 7.452 (7.35-7.45) H 12/12/17 09:13 POC ABG pCO2 22.2 (35-45) L 12/12/17 09:13 POC ABG pO2 75 (80-105) L 12/12/17 09:13 POC ABG HCO3 15.5 12/12/17 09:13 POC ABG Total CO2 16 12/12/17 09:13 POC ABG O2 Sat 96 12/12/17 09:13 PT/INR, D-dimer PT 25.7 Sec. (12.2-14.9) H 12/29/17 00:34 INR 2.18 (0.87-1.13) H 12/29/17 00:34 D-Dimer 1215.06 ng/mlDDU (0-234) H 12/12/17 19:50 Abnormal lab findings: Abnormal Labs 12/10/17 12/10/17 12/10/17 13:14 13:14 23:05 RBC 2.31 L Hgb 7.3 L Hct 21.5 L MCV MCH MCHC RDW 17.7 H Plt Count 61 L Lymph % (Auto) [place] % (Auto) Lymph # [place] # Seg Neutrophils % Seg Neuts % (Manual) 81.0 H Lymphocytes % (Manual) 11.0 L Lymphocytes # (Manual) 0.6 L PT INR APTT Fibrinogen D-Dimer POC ABG pH POC ABG pCO2 POC ABG pO2 Sodium 136 L Potassium 5.2 H Chloride Carbon Dioxide 15 L BUN 47 H Creatinine 5.2 H Glucose 127 H POC Glucose Lactic Acid Calcium Phosphorus Magnesium TIBC Ferritin Total Bilirubin 3.50 H Direct Bilirubin AST 71 H Ammonia Lactate Dehydrogenase NT-Pro-B Natriuret Pep Total Protein Albumin 2.6 L Lipase Vitamin B12 Urine WBC (Auto) 10.0 H Urine Creatinine Ur Creatinine 24 Hour Digoxin Crossmatch 12/10/17 12/10/17 12/10/17 23:14 23:14 23:14 RBC Hgb Hct MCV MCH MCHC RDW Plt Count Lymph % (Auto) [place] % (Auto) Lymph # [place] # Seg Neutrophils % Seg Neuts % (Manual) Lymphocytes % (Manual) Lymphocytes # (Manual) PT INR APTT Fibrinogen D-Dimer POC ABG pH POC ABG pCO2 POC ABG pO2 Sodium Potassium Chloride Carbon Dioxide BUN Creatinine Glucose POC Glucose Lactic Acid 2.40 H* Calcium Phosphorus Magnesium TIBC Ferritin Total Bilirubin Direct Bilirubin AST Ammonia 134.0 H Lactate Dehydrogenase NT-Pro-B Natriuret Pep 9558 H Total Protein Albumin Lipase Vitamin B12 Urine WBC (Auto) Urine Creatinine Ur Creatinine 24 Hour Digoxin Crossmatch 12/10/17 12/11/17 12/11/17 23:14 00:29 03:33 RBC Hgb Hct MCV MCH MCHC RDW Plt Count Lymph % (Auto) [place] % (Auto) Lymph # [place] # Seg Neutrophils % Seg Neuts % (Manual) Lymphocytes % (Manual) Lymphocytes # (Manual) PT INR APTT Fibrinogen D-Dimer POC ABG pH POC ABG pCO2 POC ABG pO2 Sodium Potassium Chloride Carbon Dioxide BUN Creatinine Glucose POC Glucose Lactic Acid 2.80 H* 3.00 H* Calcium Phosphorus Magnesium TIBC Ferritin Total Bilirubin Direct Bilirubin AST Ammonia Lactate Dehydrogenase NT-Pro-B Natriuret Pep Total Protein Albumin Lipase 7 L Vitamin B12 Urine WBC (Auto) Urine Creatinine Ur Creatinine 24 Hour Digoxin Crossmatch 12/11/17 12/11/17 12/11/17 04:08 04:34 04:34 RBC Hgb Hct MCV MCH MCHC RDW Plt Count Lymph % (Auto) [place] % (Auto) Lymph # [place] # Seg Neutrophils % Seg Neuts % (Manual) Lymphocytes % (Manual) Lymphocytes # (Manual) PT 19.1 H INR 1.51 H APTT 45.7 H Fibrinogen D-Dimer POC ABG pH POC ABG pCO2 POC ABG pO2 Sodium Potassium Chloride Carbon Dioxide BUN Creatinine Glucose POC Glucose 113 H Lactic Acid 3.10 H* Calcium Phosphorus Magnesium TIBC Ferritin Total Bilirubin Direct Bilirubin AST Ammonia Lactate Dehydrogenase NT-Pro-B Natriuret Pep Total Protein Albumin Lipase Vitamin B12 Urine WBC (Auto) Urine Creatinine Ur Creatinine 24 Hour Digoxin Crossmatch 12/11/17 12/11/17 12/11/17 06:46 07:26 09:42 RBC Hgb Hct MCV MCH MCHC RDW Plt Count Lymph % (Auto) [place] % (Auto) Lymph # [place] # Seg Neutrophils % Seg Neuts % (Manual) Lymphocytes % (Manual) Lymphocytes # (Manual) PT INR APTT Fibrinogen D-Dimer POC ABG pH POC ABG pCO2 POC ABG pO2 Sodium Potassium Chloride Carbon Dioxide BUN Creatinine Glucose POC Glucose Lactic Acid 2.70 H* 2.80 H* 2.90 H* Calcium Phosphorus Magnesium TIBC Ferritin Total Bilirubin Direct Bilirubin AST Ammonia Lactate Dehydrogenase NT-Pro-B Natriuret Pep Total Protein Albumin Lipase Vitamin B12 Urine WBC (Auto) Urine Creatinine Ur Creatinine 24 Hour Digoxin Crossmatch 12/11/17 12/11/17 12/11/17 13:12 14:06 23:14 RBC Hgb Hct MCV MCH MCHC RDW Plt Count Lymph % (Auto) [place] % (Auto) Lymph # [place] # Seg Neutrophils % Seg Neuts % (Manual) Lymphocytes % (Manual) Lymphocytes # (Manual) PT INR APTT Fibrinogen D-Dimer POC ABG pH POC ABG pCO2 POC ABG pO2 Sodium Potassium Chloride Carbon Dioxide BUN Creatinine Glucose POC Glucose Lactic Acid 3.10 H* 3.10 H* 3.70 H* Calcium Phosphorus Magnesium TIBC Ferritin Total Bilirubin Direct Bilirubin AST Ammonia Lactate Dehydrogenase NT-Pro-B Natriuret Pep Total Protein Albumin Lipase Vitamin B12 Urine WBC (Auto) Urine Creatinine Ur Creatinine 24 Hour Digoxin Crossmatch 12/11/17 12/12/17 12/12/17 23:23 03:41 03:41 RBC 2.17 L Hgb 7.0 L Hct 19.9 L* MCV MCH 33 H MCHC 35 H RDW 17.7 H Plt Count 62 L Lymph % (Auto) [place] % (Auto) Lymph # [place] # Seg Neutrophils % Seg Neuts % (Manual) 91.0 H Lymphocytes % (Manual) 3.0 L Lymphocytes # (Manual) 0.2 L PT INR APTT Fibrinogen D-Dimer POC ABG pH POC ABG pCO2 POC ABG pO2 Sodium Potassium 5.4 H Chloride Carbon Dioxide 12 L BUN 47 H Creatinine 4.5 H Glucose 103 H POC Glucose Lactic Acid Calcium 8.0 L Phosphorus Magnesium TIBC Ferritin Total Bilirubin 3.60 H Direct Bilirubin AST 58 H Ammonia Lactate Dehydrogenase NT-Pro-B Natriuret Pep Total Protein 5.9 L Albumin 2.5 L Lipase Vitamin B12 Urine WBC (Auto) Urine Creatinine Ur Creatinine 24 Hour Digoxin Crossmatch See Detail 12/12/17 12/12/17 12/12/17 07:00 09:13 17:55 RBC 2.06 L Hgb 6.6 L Hct 18.6 L* MCV MCH MCHC 36 H RDW 17.8 H Plt Count 77 L Lymph % (Auto) [place] % (Auto) Lymph # [place] # Seg Neutrophils % Seg Neuts % (Manual) Lymphocytes % (Manual) Lymphocytes # (Manual) PT INR APTT Fibrinogen D-Dimer POC ABG pH 7.452 H POC ABG pCO2 22.2 L POC ABG pO2 75 L Sodium Potassium Chloride Carbon Dioxide BUN Creatinine Glucose POC Glucose 119 H Lactic Acid Calcium Phosphorus Magnesium TIBC Ferritin Total Bilirubin Direct Bilirubin AST Ammonia Lactate Dehydrogenase NT-Pro-B Natriuret Pep Total Protein Albumin Lipase Vitamin B12 Urine WBC (Auto) Urine Creatinine Ur Creatinine 24 Hour Digoxin Crossmatch 12/12/17 12/12/17 12/12/17 19:50 19:50 19:50 RBC 2.40 L Hgb 7.8 L Hct 21.3 L MCV MCH 33 H MCHC 37 H RDW 16.1 H Plt Count 99 L Lymph % (Auto) [place] % (Auto) Lymph # [place] # Seg Neutrophils % Seg Neuts % (Manual) 87.0 H Lymphocytes % (Manual) 5.0 L Lymphocytes # (Manual) 0.3 L PT 21.9 H INR 1.79 H APTT 41.5 H Fibrinogen 128 L D-Dimer 1215.06 H POC ABG pH POC ABG pCO2 POC ABG pO2 Sodium Potassium Chloride Carbon Dioxide BUN Creatinine Glucose POC Glucose Lactic Acid Calcium Phosphorus Magnesium TIBC Ferritin Total Bilirubin 4.10 H Direct Bilirubin 1.6 H AST Ammonia Lactate Dehydrogenase NT-Pro-B Natriuret Pep Total Protein Albumin Lipase Vitamin B12 Urine WBC (Auto) Urine Creatinine Ur Creatinine 24 Hour Digoxin Crossmatch 12/12/17 12/12/17 12/12/17 19:50 19:50 23:46 RBC Hgb Hct MCV MCH MCHC RDW Plt Count Lymph % (Auto) [place] % (Auto) Lymph # [place] # Seg Neutrophils % Seg Neuts % (Manual) Lymphocytes % (Manual) Lymphocytes # (Manual) PT INR APTT Fibrinogen D-Dimer POC ABG pH POC ABG pCO2 POC ABG pO2 Sodium Potassium Chloride Carbon Dioxide BUN Creatinine Glucose POC Glucose 110 H Lactic Acid Calcium Phosphorus Magnesium TIBC Ferritin Total Bilirubin Direct Bilirubin AST Ammonia Lactate Dehydrogenase 213 H NT-Pro-B Natriuret Pep Total Protein Albumin Lipase Vitamin B12 1465 H Urine WBC (Auto) Urine Creatinine Ur Creatinine 24 Hour Digoxin Crossmatch 12/13/17 12/13/17 12/13/17 04:00 04:00 05:12 RBC 2.32 L Hgb 7.4 L Hct 20.8 L MCV MCH MCHC 36 H RDW 16.1 H Plt Count 134 L Lymph % (Auto) 13.1 L [place] % (Auto) 7.9 H Lymph # 0.8 L [place] # Seg Neutrophils % 76.3 H Seg Neuts % (Manual) Lymphocytes % (Manual) Lymphocytes # (Manual) PT INR APTT Fibrinogen D-Dimer POC ABG pH POC ABG pCO2 POC ABG pO2 Sodium Potassium Chloride Carbon Dioxide 21 L D BUN 48 H Creatinine 4.6 H Glucose 104 H POC Glucose 134 H Lactic Acid Calcium 8.1 L Phosphorus Magnesium TIBC Ferritin Total Bilirubin 4.70 H Direct Bilirubin AST 43 H Ammonia Lactate Dehydrogenase NT-Pro-B Natriuret Pep Total Protein 5.8 L Albumin 3.1 L Lipase Vitamin B12 Urine WBC (Auto) Urine Creatinine Ur Creatinine 24 Hour Digoxin Crossmatch 12/13/17 12/13/17 12/13/17 08:45 12:25 14:03 RBC Hgb Hct MCV MCH MCHC RDW Plt Count Lymph % (Auto) [place] % (Auto) Lymph # [place] # Seg Neutrophils % Seg Neuts % (Manual) Lymphocytes % (Manual) Lymphocytes # (Manual) PT 20.5 H INR 1.65 H APTT Fibrinogen D-Dimer POC ABG pH POC ABG pCO2 POC ABG pO2 Sodium Potassium Chloride Carbon Dioxide BUN Creatinine Glucose POC Glucose 112 H Lactic Acid 3.70 H* Calcium Phosphorus Magnesium TIBC Ferritin Total Bilirubin Direct Bilirubin AST Ammonia Lactate Dehydrogenase NT-Pro-B Natriuret Pep Total Protein Albumin Lipase Vitamin B12 Urine WBC (Auto) Urine Creatinine Ur Creatinine 24 Hour Digoxin Crossmatch 12/13/17 12/13/17 12/13/17 14:03 18:52 21:09 RBC Hgb Hct MCV MCH MCHC RDW Plt Count Lymph % (Auto) [place] % (Auto) Lymph # [place] # Seg Neutrophils % Seg Neuts % (Manual) Lymphocytes % (Manual) Lymphocytes # (Manual) PT INR APTT Fibrinogen D-Dimer POC ABG pH POC ABG pCO2 POC ABG pO2 Sodium Potassium Chloride Carbon Dioxide BUN Creatinine Glucose POC Glucose 110 H Lactic Acid 4.00 H* Calcium Phosphorus Magnesium TIBC Ferritin Total Bilirubin Direct Bilirubin AST Ammonia 87.0 H Lactate Dehydrogenase NT-Pro-B Natriuret Pep Total Protein Albumin Lipase Vitamin B12 Urine WBC (Auto) Urine Creatinine Ur Creatinine 24 Hour Digoxin Crossmatch 12/14/17 12/14/17 12/14/17 00:25 03:30 03:30 RBC 2.29 L Hgb 7.3 L Hct 20.7 L MCV MCH MCHC 35 H RDW 16.2 H Plt Count 84 L Lymph % (Auto) 12.8 L [place] % (Auto) 8.3 H Lymph # 0.6 L [place] # Seg Neutrophils % 77.2 H Seg Neuts % (Manual) Lymphocytes % (Manual) Lymphocytes # (Manual) PT INR APTT Fibrinogen D-Dimer POC ABG pH POC ABG pCO2 POC ABG pO2 Sodium Potassium Chloride 96.1 L Carbon Dioxide BUN 48 H Creatinine 4.6 H Glucose 125 H POC Glucose 131 H Lactic Acid Calcium 7.9 L Phosphorus Magnesium TIBC Ferritin Total Bilirubin 4.70 H Direct Bilirubin AST 45 H Ammonia Lactate Dehydrogenase NT-Pro-B Natriuret Pep Total Protein 6.1 L Albumin 3.4 L Lipase Vitamin B12 Urine WBC (Auto) Urine Creatinine Ur Creatinine 24 Hour Digoxin Crossmatch 12/14/17 12/14/17 12/14/17 05:31 12:26 12:55 RBC Hgb Hct MCV MCH MCHC RDW Plt Count Lymph % (Auto) [place] % (Auto) Lymph # [place] # Seg Neutrophils % Seg Neuts % (Manual) Lymphocytes % (Manual) Lymphocytes # (Manual) PT INR APTT Fibrinogen D-Dimer POC ABG pH POC ABG pCO2 POC ABG pO2 Sodium Potassium Chloride Carbon Dioxide BUN Creatinine Glucose POC Glucose 125 H 117 H Lactic Acid 3.40 H* Calcium Phosphorus Magnesium TIBC Ferritin Total Bilirubin Direct Bilirubin AST Ammonia Lactate Dehydrogenase NT-Pro-B Natriuret Pep Total Protein Albumin Lipase Vitamin B12 Urine WBC (Auto) Urine Creatinine Ur Creatinine 24 Hour Digoxin Crossmatch 12/14/17 12/14/17 12/14/17 15:26 17:26 18:07 RBC Hgb Hct MCV MCH MCHC RDW Plt Count Lymph % (Auto) [place] % (Auto) Lymph # [place] # Seg Neutrophils % Seg Neuts % (Manual) Lymphocytes % (Manual) Lymphocytes # (Manual) PT INR APTT Fibrinogen D-Dimer POC ABG pH POC ABG pCO2 POC ABG pO2 Sodium Potassium Chloride Carbon Dioxide BUN Creatinine Glucose POC Glucose 143 H Lactic Acid 4.00 H* 3.90 H* Calcium Phosphorus Magnesium TIBC Ferritin Total Bilirubin Direct Bilirubin AST Ammonia Lactate Dehydrogenase NT-Pro-B Natriuret Pep Total Protein Albumin Lipase Vitamin B12 Urine WBC (Auto) Urine Creatinine Ur Creatinine 24 Hour Digoxin Crossmatch 12/14/17 12/15/17 12/15/17 Unknown 00:08 04:51 RBC 2.27 L Hgb 7.3 L Hct 20.7 L MCV MCH MCHC 35 H RDW 16.1 H Plt Count 92 L Lymph % (Auto) 12.5 L [place] % (Auto) 10.4 H Lymph # 0.6 L [place] # Seg Neutrophils % 74.7 H Seg Neuts % (Manual) Lymphocytes % (Manual) Lymphocytes # (Manual) PT INR APTT Fibrinogen D-Dimer POC ABG pH POC ABG pCO2 POC ABG pO2 Sodium Potassium Chloride Carbon Dioxide BUN Creatinine Glucose POC Glucose 124 H Lactic Acid Calcium Phosphorus Magnesium TIBC Ferritin Total Bilirubin Direct Bilirubin AST Ammonia Lactate Dehydrogenase NT-Pro-B Natriuret Pep Total Protein Albumin Lipase Vitamin B12 Urine WBC (Auto) Urine Creatinine 122.5 H Ur Creatinine 24 Hour 0.3 L Digoxin Crossmatch 12/15/17 12/15/17 12/15/17 04:51 04:51 05:56 RBC Hgb Hct MCV MCH MCHC RDW Plt Count Lymph % (Auto) [place] % (Auto) Lymph # [place] # Seg Neutrophils % Seg Neuts % (Manual) Lymphocytes % (Manual) Lymphocytes # (Manual) PT INR APTT Fibrinogen D-Dimer POC ABG pH POC ABG pCO2 POC ABG pO2 Sodium Potassium 3.5 L Chloride 92.6 L Carbon Dioxide BUN 50 H Creatinine 4.8 H Glucose 141 H POC Glucose 143 H Lactic Acid Calcium 7.9 L Phosphorus Magnesium TIBC Ferritin Total Bilirubin 3.60 H Direct Bilirubin AST 44 H Ammonia 24.0 L Lactate Dehydrogenase NT-Pro-B Natriuret Pep Total Protein 6.1 L Albumin 3.8 L Lipase Vitamin B12 Urine WBC (Auto) Urine Creatinine Ur Creatinine 24 Hour Digoxin Crossmatch 12/15/17 12/15/17 12/16/17 12:17 23:10 07:04 RBC Hgb Hct MCV MCH MCHC RDW Plt Count Lymph % (Auto) [place] % (Auto) Lymph # [place] # Seg Neutrophils % Seg Neuts % (Manual) Lymphocytes % (Manual) Lymphocytes # (Manual) PT INR APTT Fibrinogen D-Dimer POC ABG pH POC ABG pCO2 POC ABG pO2 Sodium Potassium Chloride Carbon Dioxide BUN Creatinine Glucose POC Glucose 127 H 157 H 147 H Lactic Acid Calcium Phosphorus Magnesium TIBC Ferritin Total Bilirubin Direct Bilirubin AST Ammonia Lactate Dehydrogenase NT-Pro-B Natriuret Pep Total Protein Albumin Lipase Vitamin B12 Urine WBC (Auto) Urine Creatinine Ur Creatinine 24 Hour Digoxin Crossmatch 12/16/17 12/16/17 12/16/17 11:35 12:37 12:37 RBC 2.21 L Hgb 6.9 L Hct 20.2 L MCV MCH MCHC RDW 16.2 H Plt Count 50 L Lymph % (Auto) [place] % (Auto) 9.7 H Lymph # 0.7 L [place] # Seg Neutrophils % 73.1 H Seg Neuts % (Manual) Lymphocytes % (Manual) Lymphocytes # (Manual) PT INR APTT Fibrinogen D-Dimer POC ABG pH POC ABG pCO2 POC ABG pO2 Sodium Potassium Chloride 88.2 L Carbon Dioxide BUN 52 H Creatinine 5.5 H Glucose 107 H POC Glucose 134 H Lactic Acid Calcium 7.8 L Phosphorus Magnesium TIBC Ferritin Total Bilirubin 2.60 H Direct Bilirubin AST 49 H Ammonia Lactate Dehydrogenase NT-Pro-B Natriuret Pep Total Protein Albumin 3.6 L Lipase Vitamin B12 Urine WBC (Auto) Urine Creatinine Ur Creatinine 24 Hour Digoxin Crossmatch 12/16/17 12/16/17 12/16/17 18:06 20:45 23:34 RBC Hgb Hct MCV MCH MCHC RDW Plt Count Lymph % (Auto) [place] % (Auto) Lymph # [place] # Seg Neutrophils % Seg Neuts % (Manual) Lymphocytes % (Manual) Lymphocytes # (Manual) PT INR APTT Fibrinogen D-Dimer POC ABG pH POC ABG pCO2 POC ABG pO2 Sodium Potassium Chloride Carbon Dioxide BUN Creatinine Glucose POC Glucose 133 H 139 H Lactic Acid Calcium Phosphorus Magnesium TIBC Ferritin Total Bilirubin Direct Bilirubin AST Ammonia Lactate Dehydrogenase NT-Pro-B Natriuret Pep Total Protein Albumin Lipase Vitamin B12 Urine WBC (Auto) Urine Creatinine Ur Creatinine 24 Hour Digoxin Crossmatch See Detail 12/17/17 12/17/17 12/17/17 05:27 05:27 06:11 RBC 2.10 L Hgb 6.6 L Hct 19.2 L* MCV MCH MCHC 35 H RDW 16.5 H Plt Count 65 L Lymph % (Auto) 12.6 L [place] % (Auto) 9.6 H Lymph # 0.7 L [place] # Seg Neutrophils % 75.8 H Seg Neuts % (Manual) Lymphocytes % (Manual) Lymphocytes # (Manual) PT INR APTT Fibrinogen D-Dimer POC ABG pH POC ABG pCO2 POC ABG pO2 Sodium 135 L Potassium 3.4 L Chloride 84.9 L Carbon Dioxide 33 H BUN 53 H Creatinine 5.9 H Glucose POC Glucose 110 H Lactic Acid Calcium 7.7 L Phosphorus Magnesium TIBC Ferritin Total Bilirubin 2.70 H Direct Bilirubin AST 50 H Ammonia Lactate Dehydrogenase NT-Pro-B Natriuret Pep Total Protein 6.2 L Albumin 3.7 L Lipase Vitamin B12 Urine WBC (Auto) Urine Creatinine Ur Creatinine 24 Hour Digoxin Crossmatch 12/17/17 12/18/17 12/18/17 09:34 00:05 05:21 RBC 3.35 L Hgb 10.3 L D Hct 30.4 L D MCV MCH MCHC RDW 16.2 H Plt Count 57 L Lymph % (Auto) 8.0 L [place] % (Auto) 10.9 H Lymph # 0.6 L [place] # Seg Neutrophils % 80.2 H Seg Neuts % (Manual) Lymphocytes % (Manual) Lymphocytes # (Manual) PT 23.9 H INR 1.99 H APTT Fibrinogen D-Dimer POC ABG pH POC ABG pCO2 POC ABG pO2 Sodium Potassium Chloride Carbon Dioxide BUN Creatinine Glucose POC Glucose 132 H Lactic Acid Calcium Phosphorus Magnesium TIBC Ferritin Total Bilirubin Direct Bilirubin AST Ammonia Lactate Dehydrogenase NT-Pro-B Natriuret Pep Total Protein Albumin Lipase Vitamin B12 Urine WBC (Auto) Urine Creatinine Ur Creatinine 24 Hour Digoxin Crossmatch 12/18/17 12/18/17 12/18/17 05:21 06:16 11:11 RBC Hgb Hct MCV MCH MCHC RDW Plt Count Lymph % (Auto) [place] % (Auto) Lymph # [place] # Seg Neutrophils % Seg Neuts % (Manual) Lymphocytes % (Manual) Lymphocytes # (Manual) PT 34.7 H INR 3.17 H APTT Fibrinogen D-Dimer POC ABG pH POC ABG pCO2 POC ABG pO2 Sodium Potassium 3.5 L Chloride 87.1 L Carbon Dioxide BUN 35 H Creatinine 4.3 H Glucose 110 H POC Glucose 116 H Lactic Acid Calcium 8.1 L Phosphorus Magnesium TIBC Ferritin Total Bilirubin 5.10 H Direct Bilirubin AST 56 H Ammonia Lactate Dehydrogenase NT-Pro-B Natriuret Pep Total Protein Albumin Lipase Vitamin B12 Urine WBC (Auto) Urine Creatinine Ur Creatinine 24 Hour Digoxin Crossmatch 12/18/17 12/18/17 12/18/17 13:10 17:52 22:04 RBC Hgb Hct MCV MCH MCHC RDW Plt Count Lymph % (Auto) [place] % (Auto) Lymph # [place] # Seg Neutrophils % Seg Neuts % (Manual) Lymphocytes % (Manual) Lymphocytes # (Manual) PT 25.9 H INR 2.20 H APTT Fibrinogen D-Dimer POC ABG pH POC ABG pCO2 POC ABG pO2 Sodium Potassium Chloride Carbon Dioxide BUN Creatinine Glucose POC Glucose 114 H 108 H Lactic Acid Calcium Phosphorus Magnesium TIBC Ferritin Total Bilirubin Direct Bilirubin AST Ammonia Lactate Dehydrogenase NT-Pro-B Natriuret Pep Total Protein Albumin Lipase Vitamin B12 Urine WBC (Auto) Urine Creatinine Ur Creatinine 24 Hour Digoxin Crossmatch 12/19/17 12/19/17 12/19/17 05:55 05:55 10:20 RBC 2.85 L Hgb 9.1 L Hct 25.7 L MCV MCH MCHC 35 H RDW 16.4 H Plt Count 61 L Lymph % (Auto) [place] % (Auto) Lymph # [place] # Seg Neutrophils % Seg Neuts % (Manual) Lymphocytes % (Manual) Lymphocytes # (Manual) PT INR APTT Fibrinogen D-Dimer POC ABG pH POC ABG pCO2 POC ABG pO2 Sodium Potassium Chloride 94.5 L Carbon Dioxide BUN 27 H Creatinine 3.6 H Glucose POC Glucose 131 H Lactic Acid Calcium 8.2 L Phosphorus Magnesium TIBC Ferritin Total Bilirubin Direct Bilirubin AST Ammonia Lactate Dehydrogenase NT-Pro-B Natriuret Pep Total Protein Albumin Lipase Vitamin B12 Urine WBC (Auto) Urine Creatinine Ur Creatinine 24 Hour Digoxin Crossmatch 12/19/17 12/21/17 12/21/17 11:46 05:26 05:26 RBC 2.60 L Hgb 8.4 L Hct 23.9 L MCV MCH MCHC 35 H RDW 16.2 H Plt Count 57 L Lymph % (Auto) 12.4 L [place] % (Auto) 10.7 H Lymph # [place] # 1.0 H Seg Neutrophils % 74.8 H Seg Neuts % (Manual) Lymphocytes % (Manual) Lymphocytes # (Manual) PT 26.2 H INR 2.23 H APTT Fibrinogen D-Dimer POC ABG pH POC ABG pCO2 POC ABG pO2 Sodium Potassium Chloride Carbon Dioxide BUN Creatinine Glucose POC Glucose Lactic Acid Calcium Phosphorus Magnesium TIBC Ferritin Total Bilirubin Direct Bilirubin AST Ammonia Lactate Dehydrogenase NT-Pro-B Natriuret Pep Total Protein Albumin Lipase Vitamin B12 Urine WBC (Auto) Urine Creatinine Ur Creatinine 24 Hour Digoxin 0.4 L Crossmatch 12/21/17 12/23/17 12/24/17 09:40 08:15 04:51 RBC 1.80 L Hgb 5.9 L* Hct 17.0 L* D MCV MCH 33 H MCHC 35 H RDW 16.5 H Plt Count 53 L Lymph % (Auto) [place] % (Auto) Lymph # [place] # Seg Neutrophils % Seg Neuts % (Manual) Lymphocytes % (Manual) Lymphocytes # (Manual) PT 26.4 H 27.9 H INR 2.26 H 2.42 H APTT Fibrinogen D-Dimer POC ABG pH POC ABG pCO2 POC ABG pO2 Sodium Potassium Chloride Carbon Dioxide BUN Creatinine Glucose POC Glucose Lactic Acid Calcium Phosphorus Magnesium TIBC Ferritin Total Bilirubin Direct Bilirubin AST Ammonia Lactate Dehydrogenase NT-Pro-B Natriuret Pep Total Protein Albumin Lipase Vitamin B12 Urine WBC (Auto) Urine Creatinine Ur Creatinine 24 Hour Digoxin Crossmatch 12/24/17 12/24/17 12/24/17 04:51 06:25 08:20 RBC Hgb Hct MCV MCH MCHC RDW Plt Count Lymph % (Auto) [place] % (Auto) Lymph # [place] # Seg Neutrophils % Seg Neuts % (Manual) Lymphocytes % (Manual) Lymphocytes # (Manual) PT 40.8 H INR 3.87 H APTT Fibrinogen D-Dimer POC ABG pH POC ABG pCO2 POC ABG pO2 Sodium Potassium 3.5 L Chloride Carbon Dioxide BUN 21 H Creatinine 4.4 H Glucose POC Glucose Lactic Acid Calcium 8.1 L Phosphorus Magnesium TIBC Ferritin Total Bilirubin Direct Bilirubin AST Ammonia Lactate Dehydrogenase NT-Pro-B Natriuret Pep Total Protein Albumin Lipase Vitamin B12 Urine WBC (Auto) Urine Creatinine Ur Creatinine 24 Hour Digoxin Crossmatch See Detail 12/24/17 12/24/17 12/25/17 19:21 19:21 05:27 RBC 2.31 L Hgb 7.3 L 7.4 L Hct 20.4 L 21.3 L MCV MCH MCHC 35 H RDW 15.9 H Plt Count 39 L Lymph % (Auto) [place] % (Auto) 10.8 H Lymph # 0.9 L [place] # Seg Neutrophils % 71.9 H Seg Neuts % (Manual) Lymphocytes % (Manual) Lymphocytes # (Manual) PT 21.3 H INR 1.73 H APTT Fibrinogen D-Dimer POC ABG pH POC ABG pCO2 POC ABG pO2 Sodium Potassium Chloride Carbon Dioxide BUN Creatinine Glucose POC Glucose Lactic Acid Calcium Phosphorus Magnesium TIBC Ferritin Total Bilirubin Direct Bilirubin AST Ammonia Lactate Dehydrogenase NT-Pro-B Natriuret Pep Total Protein Albumin Lipase Vitamin B12 Urine WBC (Auto) Urine Creatinine Ur Creatinine 24 Hour Digoxin Crossmatch 12/25/17 12/25/17 12/25/17 05:27 05:27 12:24 RBC Hgb Hct MCV MCH MCHC RDW Plt Count Lymph % (Auto) [place] % (Auto) Lymph # [place] # Seg Neutrophils % Seg Neuts % (Manual) Lymphocytes % (Manual) Lymphocytes # (Manual) PT 22.1 H INR 1.81 H APTT Fibrinogen D-Dimer POC ABG pH POC ABG pCO2 POC ABG pO2 Sodium Potassium 3.5 L Chloride 96.7 L Carbon Dioxide BUN Creatinine 3.2 H Glucose POC Glucose 140 H Lactic Acid Calcium 8.1 L Phosphorus Magnesium TIBC Ferritin Total Bilirubin Direct Bilirubin AST Ammonia Lactate Dehydrogenase NT-Pro-B Natriuret Pep Total Protein Albumin Lipase Vitamin B12 Urine WBC (Auto) Urine Creatinine Ur Creatinine 24 Hour Digoxin Crossmatch 12/26/17 12/26/17 12/27/17 05:59 05:59 06:34 RBC 2.01 L 2.52 L Hgb 6.6 L 8.2 L Hct 18.6 L* 23.2 L MCV MCH 33 H MCHC 35 H 35 H RDW 16.6 H 15.3 H Plt Count 45 L 39 L Lymph % (Auto) 11.6 L [place] % (Auto) 10.3 H 11.2 H Lymph # 1.0 L 0.7 L [place] # Seg Neutrophils % 72.2 H 75.4 H Seg Neuts % (Manual) Lymphocytes % (Manual) Lymphocytes # (Manual) PT INR APTT Fibrinogen D-Dimer POC ABG pH POC ABG pCO2 POC ABG pO2 Sodium Potassium 3.3 L Chloride Carbon Dioxide BUN Creatinine 3.8 H Glucose 110 H POC Glucose Lactic Acid Calcium Phosphorus 2.40 L Magnesium 1.40 L TIBC Ferritin Total Bilirubin 7.10 H Direct Bilirubin AST 73 H Ammonia Lactate Dehydrogenase NT-Pro-B Natriuret Pep Total Protein Albumin 3.5 L Lipase Vitamin B12 Urine WBC (Auto) Urine Creatinine Ur Creatinine 24 Hour Digoxin Crossmatch 12/27/17 12/27/17 12/27/17 06:34 06:34 06:34 RBC Hgb Hct MCV MCH MCHC RDW Plt Count Lymph % (Auto) [place] % (Auto) Lymph # [place] # Seg Neutrophils % Seg Neuts % (Manual) Lymphocytes % (Manual) Lymphocytes # (Manual) PT INR APTT Fibrinogen D-Dimer POC ABG pH POC ABG pCO2 POC ABG pO2 Sodium Potassium 3.3 L Chloride 95.4 L Carbon Dioxide BUN Creatinine 2.6 H Glucose 112 H POC Glucose Lactic Acid Calcium 8.1 L Phosphorus Magnesium TIBC 77 L Ferritin > 2000.0 H Total Bilirubin 8.00 H Direct Bilirubin AST 89 H Ammonia Lactate Dehydrogenase 302 H NT-Pro-B Natriuret Pep Total Protein Albumin 3.7 L Lipase Vitamin B12 Urine WBC (Auto) Urine Creatinine Ur Creatinine 24 Hour Digoxin Crossmatch 12/28/17 12/28/17 12/29/17 06:24 09:00 00:30 RBC 2.25 L Hgb 7.5 L Hct 21.1 L MCV MCH 33 H MCHC 35 H RDW 16.2 H Plt Count 78 L D Lymph % (Auto) 12.5 L [place] % (Auto) 12.3 H Lymph # 0.9 L [place] # 0.9 H Seg Neutrophils % 73.3 H Seg Neuts % (Manual) Lymphocytes % (Manual) Lymphocytes # (Manual) PT 23.7 H INR 1.97 H APTT 53.1 H Fibrinogen D-Dimer POC ABG pH POC ABG pCO2 POC ABG pO2 Sodium Potassium Chloride Carbon Dioxide BUN Creatinine Glucose POC Glucose 148 H Lactic Acid Calcium Phosphorus Magnesium TIBC Ferritin Total Bilirubin Direct Bilirubin AST Ammonia Lactate Dehydrogenase NT-Pro-B Natriuret Pep Total Protein Albumin Lipase Vitamin B12 Urine WBC (Auto) Urine Creatinine Ur Creatinine 24 Hour Digoxin Crossmatch 12/29/17 12/29/17 12/29/17 00:34 03:59 03:59 RBC 2.19 L Hgb 7.2 L Hct 20.7 L MCV 95 H MCH 33 H MCHC 35 H RDW 16.9 H Plt Count 75 L Lymph % (Auto) [place] % (Auto) 10.8 H Lymph # [place] # Seg Neutrophils % 70.8 H Seg Neuts % (Manual) Lymphocytes % (Manual) Lymphocytes # (Manual) PT 25.7 H INR 2.18 H APTT Fibrinogen D-Dimer POC ABG pH POC ABG pCO2 POC ABG pO2 Sodium Potassium Chloride Carbon Dioxide BUN Creatinine 2.3 H Glucose 111 H POC Glucose Lactic Acid Calcium Phosphorus Magnesium TIBC Ferritin Total Bilirubin 8.20 H Direct Bilirubin AST 66 H Ammonia Lactate Dehydrogenase NT-Pro-B Natriuret Pep Total Protein Albumin 3.5 L Lipase Vitamin B12 Urine WBC (Auto) Urine Creatinine Ur Creatinine 24 Hour Digoxin Crossmatch 12/29/17 07:35 RBC Hgb Hct MCV MCH MCHC RDW Plt Count Lymph % (Auto) [place] % (Auto) Lymph # [place] # Seg Neutrophils % Seg Neuts % (Manual) Lymphocytes % (Manual) Lymphocytes # (Manual) PT INR APTT Fibrinogen D-Dimer POC ABG pH POC ABG pCO2 POC ABG pO2 Sodium Potassium Chloride Carbon Dioxide BUN Creatinine Glucose POC Glucose 113 H Lactic Acid Calcium Phosphorus Magnesium TIBC Ferritin Total Bilirubin Direct Bilirubin AST Ammonia Lactate Dehydrogenase NT-Pro-B Natriuret Pep Total Protein Albumin Lipase Vitamin B12 Urine WBC (Auto) Urine Creatinine Ur Creatinine 24 Hour Digoxin Crossmatch Allied health notes reviewed: nursing
--- NOTE | 2017-12-29 13:29 | Progress Note ---
Assessment and Plan Assessment and plan: --Acute blood loss anemia. Hemoglobin today 7.5 EGD did not reveal variceal bleeding, findings noted, Received total of 9 units of PRBC, mild improvement in hemoglobin --Severe thrombocytopenia; probably secondary to cirrhosis Mild improvement --NSVT, resolved ; continue Lopressor --Septic/hypovolemic shock. On midodrine, --Sepsis;cultures negative --Coagulopathy cirrhosis of liver ; received FFP and vitamin K , monitor INR --Rectal bleeding; resolved GI following --Cirrhosis with esophageal varices. Patient without signs of active bleeding. --Toxic metabolic/hepatic encephalopathy. Hyperammonemia on admission. Resolved --Acute on chronic kidney disease : ATN/sepsis/hypotension. On hemodialysis,Outpatient dialysis per case management --Hepatorenal syndrome; on HD, nephrology following --Bilateral pleural effusion right greater than left. Cut And Cover Line Worker recommends giving FFP and possible thoracentesis if needed Plan of care Discussed with patient and at bedside today 12/24 GI trying to contact waiter/waitress first class in [place][patient scheduled to see for evaluation for liver transplant on 12/30/2017 ] Plan of care reviewed with the and his and his nurse Possible discharge in 1-2 days if stable [facility] for further management History Interval history: Patient seen and examined medical records reviewed Feels better, complains of generalized weakness, patient is hypotensive Alert awake oriented 3, vital signs reviewed Hospitalist Physical - Constitutional Vitals: Temp Pulse Resp BP Pulse Ox 98.7 F 72 14 98/42 95 12/29/17 08:35 12/29/17 08:35 12/29/17 08:35 12/29/17 10:30 12/29/17 08:35 General appearance: Present: mild distress, cachectic, other (malnourished) - EENT Eyes: Present: PERRL, EOM intact - Neck Neck: Present: supple, normal ROM - Respiratory Respiratory effort: normal Respiratory: bilateral: diminished, negative: rales, rhonchi, wheezing - Cardiovascular Rhythm: regular Heart Sounds: Present: S1 & S2 - Extremities Extremities: no ischemia, No edema - Abdominal General gastrointestinal: soft, non-tender, non-distended, normal bowel sounds - Integumentary Integumentary: Present: clear, warm - Psychiatric Psychiatric: appropriate mood/affect, cooperative - Neurologic Neurologic: moves all extremities Results - Labs CBC & Chem 7: 12/30/17 07:51 12/29/17 03:59 Labs: Laboratory Last Values WBC 7.5 K/mm3 (4.5-11.0) 12/29/17 03:59 RBC 2.19 M/mm3 (3.65-5.03) L 12/29/17 03:59 Hgb 7.2 gm/dl (11.8-15.2) L 12/29/17 03:59 Hct 20.7 % (35.5-45.6) L 12/29/17 03:59 MCV 95 fl (84-94) H 12/29/17 03:59 MCH 33 pg (28-32) H 12/29/17 03:59 MCHC 35 % (32-34) H 12/29/17 03:59 RDW 16.9 % (13.2-15.2) H 12/29/17 03:59 Plt Count 75 K/mm3 (140-440) L 12/29/17 03:59 Lymph % (Auto) 15.7 % (13.4-35.0) 12/29/17 03:59 [place] % (Auto) 10.8 % (0.0-7.3) H 12/29/17 03:59 Eos % (Auto) 1.0 % (0.0-4.3) 12/29/17 03:59 Baso % (Auto) 1.7 % (0.0-1.8) 12/29/17 03:59 Lymph # 1.2 K/mm3 (1.2-5.4) 12/29/17 03:59 [place] # 0.8 K/mm3 (0.0-0.8) 12/29/17 03:59 Eos # 0.1 K/mm3 (0.0-0.4) 12/29/17 03:59 Baso # 0.1 K/mm3 (0.0-0.1) 12/29/17 03:59 Add Manual Diff Complete 12/12/17 19:50 Total Counted 100 12/12/17 19:50 Seg Neutrophils % 70.8 % (40.0-70.0) H 12/29/17 03:59 Seg Neuts % (Manual) 87.0 % (40.0-70.0) H 12/12/17 19:50 Band Neutrophils % 0 % 12/12/17 19:50 Lymphocytes % (Manual) 5.0 % (13.4-35.0) L 12/12/17 19:50 Reactive Lymphs % (Man) 0 % 12/12/17 19:50 Monocytes % (Manual) 6.0 % (0.0-7.3) 12/12/17 19:50 Eosinophils % (Manual) 2.0 % (0.0-4.3) 12/12/17 19:50 Basophils % (Manual) 0 % (0.0-1.8) 12/12/17 19:50 Metamyelocytes % 0 % 12/12/17 19:50 Myelocytes % 0 % 12/12/17 19:50 Promyelocytes % 0 % 12/12/17 19:50 Blast Cells % 0 % 12/12/17 19:50 Nucleated RBC % Not Reportable 12/12/17 19:50 Seg Neutrophils # 5.3 K/mm3 (1.8-7.7) 12/29/17 03:59 Seg Neutrophils # Man 4.9 K/mm3 (1.8-7.7) 12/12/17 19:50 Band Neutrophils # 0.0 K/mm3 12/12/17 19:50 Lymphocytes # (Manual) 0.3 K/mm3 (1.2-5.4) L 12/12/17 19:50 Abs React Lymphs (Man) 0.0 K/mm3 12/12/17 19:50 Monocytes # (Manual) 0.3 K/mm3 (0.0-0.8) 12/12/17 19:50 Eosinophils # (Manual) 0.1 K/mm3 (0.0-0.4) 12/12/17 19:50 Basophils # (Manual) 0.0 K/mm3 (0.0-0.1) 12/12/17 19:50 Metamyelocytes # 0.0 K/mm3 12/12/17 19:50 Myelocytes # 0.0 K/mm3 12/12/17 19:50 Promyelocytes # 0.0 K/mm3 12/12/17 19:50 Blast Cells # 0.0 K/mm3 12/12/17 19:50 WBC Morphology Not Reportable 12/12/17 19:50 Hypersegmented Neuts Not Reportable 12/12/17 19:50 Hyposegmented Neuts Not Reportable 12/12/17 19:50 Hypogranular Neuts Not Reportable 12/12/17 19:50 Smudge Cells Not Reportable 12/12/17 19:50 Toxic Granulation Not Reportable 12/12/17 19:50 Toxic Vacuolation Not Reportable 12/12/17 19:50 Dohle Bodies Not Reportable 12/12/17 19:50 Pelger-Huet Anomaly Not Reportable 12/12/17 19:50 Eriberto Rods Not Reportable 12/12/17 19:50 Platelet Estimate Appears decreased 12/12/17 19:50 Clumped Platelets Not Reportable 12/12/17 19:50 Plt Clumps, EDTA Not Reportable 12/12/17 19:50 Large Platelets 1+ 12/12/17 19:50 Giant Platelets Not Reportable 12/12/17 19:50 Platelet Satelliting Not Reportable 12/12/17 19:50 Plt Morphology Comment Not Reportable 12/12/17 19:50 RBC Morphology Not Reportable 12/12/17 19:50 Dimorphic RBCs Not Reportable 12/12/17 19:50 Polychromasia Not Reportable 12/12/17 19:50 Hypochromasia 1+ 12/12/17 19:50 Poikilocytosis Not Reportable 12/12/17 19:50 Anisocytosis Not Reportable 12/12/17 19:50 Microcytosis Not Reportable 12/12/17 19:50 Macrocytosis Not Reportable 12/12/17 19:50 Spherocytes Not Reportable 12/12/17 19:50 Pappenheimer Bodies Not Reportable 12/12/17 19:50 Sickle Cells Not Reportable 12/12/17 19:50 Target Cells Not Reportable 12/12/17 19:50 Tear Drop Cells Not Reportable 12/12/17 19:50 Ovalocytes Not Reportable 12/12/17 19:50 Helmet Cells Not Reportable 12/12/17 19:50 [place] Bodies Not Reportable 12/12/17 19:50 [place] Rings Not Reportable 12/12/17 19:50 [place] Cells 1+ 12/12/17 19:50 Bite Cells Not Reportable 12/12/17 19:50 Crenated Cell Not Reportable 12/12/17 19:50 Elliptocytes Not Reportable 12/12/17 19:50 Acanthocytes (Spur) 1+ 12/12/17 19:50 Rouleaux Not Reportable 12/12/17 19:50 Hemoglobin C Crystals Not Reportable 12/12/17 19:50 Schistocytes Not Reportable 12/12/17 19:50 Malaria parasites Not Reportable 12/12/17 19:50 ESR 18 mm/Hr (0-20) 12/12/17 19:50 [place] Bodies Not Reportable 12/12/17 19:50 Hem Pathologist Commnt No 12/12/17 19:50 PT 25.7 Sec. (12.2-14.9) H 12/29/17 00:34 INR 2.18 (0.87-1.13) H 12/29/17 00:34 APTT 53.1 Sec. (24.2-36.6) H 12/28/17 09:00 Fibrinogen 128 mg/dl (211-480) L 12/12/17 19:50 D-Dimer 1215.06 ng/mlDDU (0-234) H 12/12/17 19:50 Factor VIII:C Activity 178 % (50-180) 12/12/17 20:30 POC ABG pH 7.452 (7.35-7.45) H 12/12/17 09:13 POC ABG pCO2 22.2 (35-45) L 12/12/17 09:13 POC ABG pO2 75 (80-105) L 12/12/17 09:13 POC ABG HCO3 15.5 12/12/17 09:13 POC ABG Total CO2 16 12/12/17 09:13 POC ABG O2 Sat 96 12/12/17 09:13 POC ABG Base Excess -8 12/12/17 09:13 FiO2 21 % 12/12/17 09:13 Sodium 143 mmol/L (137-145) 12/29/17 03:59 Potassium 4.3 mmol/L (3.6-5.0) D 12/29/17 03:59 Chloride 104.2 mmol/L (98-107) 12/29/17 03:59 Carbon Dioxide 24 mmol/L (22-30) 12/29/17 03:59 Anion Gap 19 mmol/L 12/29/17 03:59 BUN 10 mg/dL (9-20) 12/29/17 03:59 Creatinine 2.3 mg/dL (0.8-1.5) H 12/29/17 03:59 Estimated GFR 35 ml/min 12/29/17 03:59 BUN/Creatinine Ratio 4 % 12/29/17 03:59 Glucose 111 mg/dL (75-100) H 12/29/17 03:59 POC Glucose 113 (70-105) H 12/29/17 07:35 Lactic Acid 3.90 mmol/L (0.7-2.0) H* 12/14/17 17:26 Calcium 8.7 mg/dL (8.4-10.2) 12/29/17 03:59 Phosphorus 2.40 mg/dL (2.5-4.5) L 12/26/17 05:59 Magnesium 1.40 mg/dL (1.7-2.3) L 12/26/17 05:59 Iron 78 ug/dL (49-181) 12/27/17 06:34 TIBC 77 mcg/dL (250-450) L 12/27/17 06:34 Ferritin > 2000.0 ng/mL (13.0-400.0) H 12/27/17 06:34 Total Bilirubin 8.20 mg/dL (0.1-1.2) H 12/29/17 03:59 Direct Bilirubin 1.6 mg/dL (0-0.2) H 12/12/17 19:50 Indirect Bilirubin 2.5 mg/dL 12/12/17 19:50 AST 66 units/L (5-40) H 12/29/17 03:59 ALT 26 units/L (7-56) 12/29/17 03:59 Alkaline Phosphatase 59 units/L (35-129) 12/29/17 03:59 Ammonia 53.0 umol/L (25-60) 12/18/17 13:10 Lactate Dehydrogenase 302 units/L (91-180) H 12/27/17 06:34 Total Creatine Kinase 64 units/L (55-170) 12/10/17 23:14 C-Reactive Protein 0.30 mg/dL (0.00-1.30) 12/13/17 14:03 NT-Pro-B Natriuret Pep 9558 pg/mL (0-900) H 12/10/17 23:14 Total Protein 6.7 g/dL (6.3-8.2) 12/29/17 03:59 Albumin 3.5 g/dL (3.9-5) L 12/29/17 03:59 Albumin/Globulin Ratio 1.1 % 12/29/17 03:59 Lipase 7 units/L (13-60) L 12/10/17 23:14 Vitamin B12 1465 pg/mL (211-911) H 12/12/17 19:50 Folate 14.04 ng/mL (7.3-26.0) 12/12/17 19:50 TSH 2.560 mlU/mL (0.270-4.200) 12/16/17 12:37 Total Cortisol 8.6 mcg/dL () 12/16/17 12:37 Urine Color Yellow (Yellow) 12/10/17 23:05 Urine Turbidity Clear (Clear) 12/10/17 23:05 Urine pH 5.0 (5.0-7.0) 12/10/17 23:05 Ur Specific [place] 1.013 (1.003-1.030) 12/10/17 23:05 Urine Protein <15 mg/dl mg/dL (Negative) 12/10/17 23:05 Urine Glucose (UA) Neg mg/dL (Negative) 12/10/17 23:05 Urine Ketones Neg mg/dL (Negative) 12/10/17 23:05 Urine Blood Neg (Negative) 12/10/17 23:05 Urine Nitrite Neg (Negative) 12/10/17 23:05 Ur Reducing Substances Not Reportable 12/10/17 23:05 Urine Bilirubin Neg (Negative) 12/10/17 23:05 Urine Ictotest Not Reportable 12/10/17 23:05 Urine Urobilinogen < 2.0 mg/dL (<2.0) 12/10/17 23:05 Ur Leukocyte Esterase Sm (Negative) 12/10/17 23:05 Urine WBC (Auto) 10.0 /HPF (0.0-6.0) H 12/10/17 23:05 Urine RBC (Auto) 4.0 /HPF (0.0-6.0) 12/10/17 23:05 U Epithel Cells (Auto) < 1.0 /HPF (0-13.0) 12/10/17 23:05 Urine Mucus Few /HPF 12/10/17 23:05 Urine Total Volume 250 12/14/17 Unknown Urine Creatinine 122.5 mg/dL (0.1-20.0) H 12/14/17 Unknown Ur Creatinine 24 Hour 0.3 (0.8-2.8) L 12/14/17 Unknown Digoxin 0.4 ng/mL (0.9-2.0) L 12/21/17 05:26 Hepatitis A IgM Ab Non-reactive (NonReactive) 12/12/17 19:50 Hep Bs Antigen Non-reactive (Negative) 12/12/17 19:50 Hep B Core IgM Ab Non-reactive (NonReactive) 12/12/17 19:50 Hepatitis C Antibody Non-reactive (NonReactive) 12/12/17 19:50 Miscellaneous Test Flexitest 1 12/12/17 06:42 Blood Type A NEGATIVE 12/24/17 06:25 Antibody Screen Negative 12/24/17 06:25 Direct Antiglob Test Negative 12/12/17 20:41 JOANNE, Poly Interpret Negative 12/12/17 20:41 Crossmatch See Detail 12/24/17 06:25
--- NOTE | 2017-12-29 14:56 | Progress Note ---
Assessment and Plan - Patient Problems (1) Acute hepatic encephalopathy Current Visit: Yes Status: Acute Plan to address problem: see orders. continue with lactulose, recheck ammonia level. continue same. supportive. (2) Anemia Current Visit: Yes Status: Acute Plan to address problem: see orders. Replacement transfusion, if hgb less than 7.0 same as above. see notes above. same as above, stable. see notes above. (3) Renal failure Current Visit: Yes Status: Acute Plan to address problem: follow renal service. same as above. (4) Liver failure Current Visit: Yes Status: Acute Plan to address problem: Hepato-renal syndrome, continue with HD. Subjective Date of service: 12/29/17 Principal diagnosis: CARMEN on CKD; Acute Encephalopathy; Sepsis Syndrome; Anemia Interval history: Patient seen, restingm labs/notes reviewed. agree with management so far.labs showing consumptive coagulopathy. Patient seen, resting in bed, records/labs reviewed.PLT dropped some.Still no active bleeding. Patient seen/examined, records/labs / notes reviewed, hgb low at 6.9, will rec replacement transfusion,with HD tomorrow if planned to proceed with HD. Patient seen, resting in bed, labs/records reviewed, Hgb still low, transfusion written for today. Patient seen, resting in bed, labs reviewed, plt 57,000, rectal bleeding resolved, will continue to monitor patient/labs with you, and intervene with replacement transfusion, when needed. Patient seen, resting in bed, NAD, records reviewed. Patient seen, resting in bed, labs/records reviewed, no new issues, the latest plt fair, no any sign of bleeding. Patient seen, resting in bed, records reviewed, PLT 57,000, no bleeding. Patient seen, resting in bed, labs reviewed, hgb dropped drastically, due to rectal bleed.He is s/p blood transfusion. he is expected to continue to drop his hgb, as long as he continues to bleed. Will re check labs in am. Thrombocytopenia at above 20,000. will continue to monitor. Patient seen, resting in bed, labs reviewed, ,he will need some PLT+ FFP, especially if there is any plans for any procedure, otherwise, can watch if any active bleeding, or plt 20,000 or less. patient seen/examined, resting in bed, labs reviewed, s/p GI scope, and blood transfusion, Plt replacement ,to follow. patient seen, resting in bed, labs, reviewed, plt 39,000, replacement not given yesterday? Patient seen/examined, at the HD center, resting in bed, was able ro discuss his case with him, regarding prognosis, and options, as i had d/w his yesterday. he wants to talk with his first.. his PLT came up following transfusion, hgb at Fair level at this time,Will see how much this will hold in the next few days.He is really not a good candidate for any transplant ,given, his condition, and co morbid issues at this time. Prognosis is quite poor for Hepato-renal syndrome, let alone complicated by thrombocytopenia/anemia, and double vital organ failure.He has no real reserve as far as these organs are concerned.You may want to have a vince family talk with him, his , and doctors Patient resting in bed, labs reviewed, and fairly stable, slight drop in hgb, and plt, but overall stable in the last 24hrs.notes reviewed. Objective - Constitutional Vitals: Vital Signs - 12hr 12/29/17 12/29/17 12/29/17 05:00 08:35 10:30 Temperature 98.1 F 98.7 F Pulse Rate 74 72 Respiratory 20 14 Rate Blood Pressure 72/40 98/42 Blood Pressure 98/42 [Left] O2 Sat by Pulse 97 95 Oximetry General appearance: Present: mild distress - EENT Eyes: PERRL, EOM intact ENT: hearing intact, clear oral mucosa Ears: bilateral: normal - Neck Neck: supple, normal ROM - Respiratory Respiratory effort: normal Respiratory: bilateral: CTA - Breasts Breasts: deferred - Cardiovascular Rhythm: regular Heart Sounds: Present: S1 & S2. Absent: gallop, rub Extremities: pulses intact, No edema, normal color, Full ROM - Gastrointestinal General gastrointestinal: Present: soft, non-tender, non-distended, normal bowel sounds Rectal Exam: deferred - Genitourinary Male genitourinary: deferred - Integumentary Integumentary: clear, warm, dry - Musculoskeletal Musculoskeletal: 1, strength equal bilaterally - Neurologic Neurologic: moves all extremities - Psychiatric Psychiatric: memory intact, appropriate mood/affect, intact judgment & insight - Labs CBC & Chem 7: 12/29/17 03:59 12/29/17 03:59 Labs: Abnormal lab results 12/29/17 12/29/17 12/29/17 Range/Units 00:30 00:34 03:59 RBC 2.19 L (3.65-5.03) M/mm3 Hgb 7.2 L (11.8-15.2) gm/dl Hct 20.7 L (35.5-45.6) % MCV 95 H (84-94) fl MCH 33 H (28-32) pg MCHC 35 H (32-34) % RDW 16.9 H (13.2-15.2) % Plt Count 75 L (140-440) K/mm3 [place] % (Auto) 10.8 H (0.0-7.3) % Seg Neutrophils % 70.8 H (40.0-70.0) % PT 25.7 H (12.2-14.9) Sec. INR 2.18 H (0.87-1.13) Creatinine (0.8-1.5) mg/dL Glucose (75-100) mg/dL POC Glucose 148 H (70-105) Total Bilirubin (0.1-1.2) mg/dL AST (5-40) units/L Albumin (3.9-5) g/dL 12/29/17 12/29/17 Range/Units 03:59 07:35 RBC (3.65-5.03) M/mm3 Hgb (11.8-15.2) gm/dl Hct (35.5-45.6) % MCV (84-94) fl MCH (28-32) pg MCHC (32-34) % RDW (13.2-15.2) % Plt Count (140-440) K/mm3 [place] % (Auto) (0.0-7.3) % Seg Neutrophils % (40.0-70.0) % PT (12.2-14.9) Sec. INR (0.87-1.13) Creatinine 2.3 H (0.8-1.5) mg/dL Glucose 111 H (75-100) mg/dL POC Glucose 113 H (70-105) Total Bilirubin 8.20 H (0.1-1.2) mg/dL AST 66 H (5-40) units/L Albumin 3.5 L (3.9-5) g/dL
[2017-12-30 08:16] LABS: Basophils # (Auto) 0.1 K/mm3 (0.0-0.1); Basophils % (Auto) 1.3 % (0.0-1.8); Eosinophils # (Auto) 0.1 K/mm3 (0.0-0.4); Eosinophils % (Auto) 1.9 % (0.0-4.3); Hemoglobin 6.7 gm/dl (11.8-15.2); Lymphocytes % (Auto) 13.9 % (13.4-35.0); Mean Corpuscular HGB Conc 36 % (32-34); Mean Corpuscular Hemoglobin 34 pg (28-32); Mean Corpuscular Volume 96 fl (84-94); Monocytes # (Auto) 0.8 K/mm3 (0.0-0.8); Monocytes % (Auto) 10.5 % (0.0-7.3); Red Blood Count 1.97 M/mm3 (3.65-5.03); Red Cell Distribution Width 17.6 % (13.2-15.2)
[2017-12-30 08:19] LABS: Hematocrit 18.8 % (35.5-45.6); Platelet Count 76 K/mm3 (140-440)
[2017-12-30] MEDS ORDERED: NACL 0.9% 500 ML 500 ML IV ONE (08:31)
[2017-12-30] MEDS ORDERED: VITAMIN K (ADULT ONLY) SUB-Q ONE (08:35)
--- NOTE | 2017-12-30 08:37 | Progress Note ---
Assessment and Plan Assessment and plan: --Patient's H&H dropped to 6.7again today No external evidence of bleeding Transfuse 2 units of PRBC and closely monitor Re consult GI if needed --Coagulopathy; secondary to cirrhosis liver Probably the cause of bleeding, drop in H&H Given vitamin K subcutaneous 1 dose, FFP's --Acute blood loss anemia. Hemoglobin today 7.5 EGD did not reveal variceal bleeding, findings noted, Received total of 9 units of PRBC, mild improvement in hemoglobin --Cirrhosis with esophageal varices. Ascites Ultrasound-guided paracentesis recommended by GI --Severe thrombocytopenia; probably secondary to cirrhosis Mild improvement --NSVT, resolved ; continue Lopressor --Septic/hypovolemic shock. On midodrine, --Sepsis;cultures negative --Coagulopathy cirrhosis of liver ; received FFP and vitamin K , monitor INR --Rectal bleeding; resolved GI following --Toxic metabolic/hepatic encephalopathy. Hyperammonemia on admission. Resolved --Acute on chronic kidney disease : ATN/sepsis/hypotension. On hemodialysis,Outpatient dialysis per case management --Hepatorenal syndrome; on HD, nephrology following --Bilateral pleural effusion right greater than left. Beef Splitter recommends giving FFP and possible thoracentesis if needed Plan of care Discussed with patient and at bedside today Plan of care reviewed with the and his and his nurse Possible discharge in 1-2 days if stable Patient will follow up with [facility]/licensed embalmer for further management History Interval history: Patient's hemoglobin dropped again today to 6.6 Patient already received 9 units PRBC EGD negative for variceal bleed GI and hematology following Patient also had 5 beat V. tach asymptomatic Hospitalist Physical - Constitutional Vitals: Temp Pulse Resp BP Pulse Ox 97.8 F 81 20 99/54 99 12/30/17 04:51 12/30/17 04:51 12/30/17 04:51 12/30/17 04:51 12/30/17 04:51 General appearance: Present: mild distress, cachectic, other (malnourished) - EENT Eyes: Present: PERRL, EOM intact - Neck Neck: Present: supple, normal ROM - Respiratory Respiratory effort: normal Respiratory: bilateral: diminished, negative: rales, rhonchi, wheezing - Cardiovascular Rhythm: regular Heart Sounds: Present: S1 & S2 - Extremities Extremities: no ischemia, No edema - Abdominal General gastrointestinal: soft, non-tender, non-distended, normal bowel sounds - Integumentary Integumentary: Present: clear, warm - Psychiatric Psychiatric: appropriate mood/affect, cooperative - Neurologic Neurologic: moves all extremities Results - Labs CBC & Chem 7: 12/30/17 07:51 12/29/17 03:59 Labs: Laboratory Last Values WBC 7.5 K/mm3 (4.5-11.0) 12/30/17 07:51 RBC 1.97 M/mm3 (3.65-5.03) L 12/30/17 07:51 Hgb 6.7 gm/dl (11.8-15.2) L 12/30/17 07:51 Hct 18.8 % (35.5-45.6) L* 12/30/17 07:51 MCV 96 fl (84-94) H 12/30/17 07:51 MCH 34 pg (28-32) H 12/30/17 07:51 MCHC 36 % (32-34) H 12/30/17 07:51 RDW 17.6 % (13.2-15.2) H 12/30/17 07:51 Plt Count 76 K/mm3 (140-440) L 12/30/17 07:51 Lymph % (Auto) 13.9 % (13.4-35.0) 12/30/17 07:51 Jefferson % (Auto) 10.5 % (0.0-7.3) H 12/30/17 07:51 Eos % (Auto) 1.9 % (0.0-4.3) 12/30/17 07:51 Baso % (Auto) 1.3 % (0.0-1.8) 12/30/17 07:51 Lymph # 1.0 K/mm3 (1.2-5.4) L 12/30/17 07:51 Jefferson # 0.8 K/mm3 (0.0-0.8) 12/30/17 07:51 Eos # 0.1 K/mm3 (0.0-0.4) 12/30/17 07:51 Baso # 0.1 K/mm3 (0.0-0.1) 12/30/17 07:51 Add Manual Diff Complete 12/12/17 19:50 Total Counted 100 12/12/17 19:50 Seg Neutrophils % 72.4 % (40.0-70.0) H 12/30/17 07:51 Seg Neuts % (Manual) 87.0 % (40.0-70.0) H 12/12/17 19:50 Band Neutrophils % 0 % 12/12/17 19:50 Lymphocytes % (Manual) 5.0 % (13.4-35.0) L 12/12/17 19:50 Reactive Lymphs % (Man) 0 % 12/12/17 19:50 Monocytes % (Manual) 6.0 % (0.0-7.3) 12/12/17 19:50 Eosinophils % (Manual) 2.0 % (0.0-4.3) 12/12/17 19:50 Basophils % (Manual) 0 % (0.0-1.8) 12/12/17 19:50 Metamyelocytes % 0 % 12/12/17 19:50 Myelocytes % 0 % 12/12/17 19:50 Promyelocytes % 0 % 12/12/17 19:50 Blast Cells % 0 % 12/12/17 19:50 Nucleated RBC % Not Reportable 12/12/17 19:50 Seg Neutrophils # 5.4 K/mm3 (1.8-7.7) 12/30/17 07:51 Seg Neutrophils # Man 4.9 K/mm3 (1.8-7.7) 12/12/17 19:50 Band Neutrophils # 0.0 K/mm3 12/12/17 19:50 Lymphocytes # (Manual) 0.3 K/mm3 (1.2-5.4) L 12/12/17 19:50 Abs React Lymphs (Man) 0.0 K/mm3 12/12/17 19:50 Monocytes # (Manual) 0.3 K/mm3 (0.0-0.8) 12/12/17 19:50 Eosinophils # (Manual) 0.1 K/mm3 (0.0-0.4) 12/12/17 19:50 Basophils # (Manual) 0.0 K/mm3 (0.0-0.1) 12/12/17 19:50 Metamyelocytes # 0.0 K/mm3 12/12/17 19:50 Myelocytes # 0.0 K/mm3 12/12/17 19:50 Promyelocytes # 0.0 K/mm3 12/12/17 19:50 Blast Cells # 0.0 K/mm3 12/12/17 19:50 WBC Morphology Not Reportable 12/12/17 19:50 Hypersegmented Neuts Not Reportable 12/12/17 19:50 Hyposegmented Neuts Not Reportable 12/12/17 19:50 Hypogranular Neuts Not Reportable 12/12/17 19:50 Smudge Cells Not Reportable 12/12/17 19:50 Toxic Granulation Not Reportable 12/12/17 19:50 Toxic Vacuolation Not Reportable 12/12/17 19:50 Dohle Bodies Not Reportable 12/12/17 19:50 Pelger-Huet Anomaly Not Reportable 12/12/17 19:50 Eriberto Rods Not Reportable 12/12/17 19:50 Platelet Estimate Appears decreased 12/12/17 19:50 Clumped Platelets Not Reportable 12/12/17 19:50 Plt Clumps, EDTA Not Reportable 12/12/17 19:50 Large Platelets 1+ 12/12/17 19:50 Giant Platelets Not Reportable 12/12/17 19:50 Platelet Satelliting Not Reportable 12/12/17 19:50 Plt Morphology Comment Not Reportable 12/12/17 19:50 RBC Morphology Not Reportable 12/12/17 19:50 Dimorphic RBCs Not Reportable 12/12/17 19:50 Polychromasia Not Reportable 12/12/17 19:50 Hypochromasia 1+ 12/12/17 19:50 Poikilocytosis Not Reportable 12/12/17 19:50 Anisocytosis Not Reportable 12/12/17 19:50 Microcytosis Not Reportable 12/12/17 19:50 Macrocytosis Not Reportable 12/12/17 19:50 Spherocytes Not Reportable 12/12/17 19:50 Pappenheimer Bodies Not Reportable 12/12/17 19:50 Sickle Cells Not Reportable 12/12/17 19:50 Target Cells Not Reportable 12/12/17 19:50 Tear Drop Cells Not Reportable 12/12/17 19:50 Ovalocytes Not Reportable 12/12/17 19:50 Helmet Cells Not Reportable 12/12/17 19:50 Dos Santos-Riverdale Bodies Not Reportable 12/12/17 19:50 [place] Rings Not Reportable 12/12/17 19:50 Fahad Cells 1+ 12/12/17 19:50 Bite Cells Not Reportable 12/12/17 19:50 Crenated Cell Not Reportable 12/12/17 19:50 Elliptocytes Not Reportable 12/12/17 19:50 Acanthocytes (Spur) 1+ 12/12/17 19:50 Rouleaux Not Reportable 12/12/17 19:50 Hemoglobin C Crystals Not Reportable 12/12/17 19:50 Schistocytes Not Reportable 12/12/17 19:50 Malaria parasites Not Reportable 12/12/17 19:50 ESR 18 mm/Hr (0-20) 12/12/17 19:50 Lyndon Bodies Not Reportable 12/12/17 19:50 Hem Pathologist Commnt No 12/12/17 19:50 PT 25.7 Sec. (12.2-14.9) H 12/29/17 00:34 INR 2.18 (0.87-1.13) H 12/29/17 00:34 APTT 53.1 Sec. (24.2-36.6) H 12/28/17 09:00 Fibrinogen 128 mg/dl (211-480) L 12/12/17 19:50 D-Dimer 1215.06 ng/mlDDU (0-234) H 12/12/17 19:50 Factor VIII:C Activity 178 % (50-180) 12/12/17 20:30 POC ABG pH 7.452 (7.35-7.45) H 12/12/17 09:13 POC ABG pCO2 22.2 (35-45) L 12/12/17 09:13 POC ABG pO2 75 (80-105) L 12/12/17 09:13 POC ABG HCO3 15.5 12/12/17 09:13 POC ABG Total CO2 16 12/12/17 09:13 POC ABG O2 Sat 96 12/12/17 09:13 POC ABG Base Excess -8 12/12/17 09:13 FiO2 21 % 12/12/17 09:13 Sodium 143 mmol/L (137-145) 12/29/17 03:59 Potassium 4.3 mmol/L (3.6-5.0) D 12/29/17 03:59 Chloride 104.2 mmol/L (98-107) 12/29/17 03:59 Carbon Dioxide 24 mmol/L (22-30) 12/29/17 03:59 Anion Gap 19 mmol/L 12/29/17 03:59 BUN 10 mg/dL (9-20) 12/29/17 03:59 Creatinine 2.3 mg/dL (0.8-1.5) H 12/29/17 03:59 Estimated GFR 35 ml/min 12/29/17 03:59 BUN/Creatinine Ratio 4 % 12/29/17 03:59 Glucose 111 mg/dL (75-100) H 12/29/17 03:59 POC Glucose 113 (70-105) H 12/29/17 07:35 Lactic Acid 3.90 mmol/L (0.7-2.0) H* 12/14/17 17:26 Calcium 8.7 mg/dL (8.4-10.2) 12/29/17 03:59 Phosphorus 2.40 mg/dL (2.5-4.5) L 12/26/17 05:59 Magnesium 1.40 mg/dL (1.7-2.3) L 12/26/17 05:59 Iron 78 ug/dL (49-181) 12/27/17 06:34 TIBC 77 mcg/dL (250-450) L 12/27/17 06:34 Ferritin > 2000.0 ng/mL (13.0-400.0) H 12/27/17 06:34 Total Bilirubin 8.20 mg/dL (0.1-1.2) H 12/29/17 03:59 Direct Bilirubin 1.6 mg/dL (0-0.2) H 12/12/17 19:50 Indirect Bilirubin 2.5 mg/dL 12/12/17 19:50 AST 66 units/L (5-40) H 12/29/17 03:59 ALT 26 units/L (7-56) 12/29/17 03:59 Alkaline Phosphatase 59 units/L (35-129) 12/29/17 03:59 Ammonia 53.0 umol/L (25-60) 12/18/17 13:10 Lactate Dehydrogenase 302 units/L (91-180) H 12/27/17 06:34 Total Creatine Kinase 64 units/L (55-170) 12/10/17 23:14 C-Reactive Protein 0.30 mg/dL (0.00-1.30) 12/13/17 14:03 NT-Pro-B Natriuret Pep 9558 pg/mL (0-900) H 12/10/17 23:14 Total Protein 6.7 g/dL (6.3-8.2) 12/29/17 03:59 Albumin 3.5 g/dL (3.9-5) L 12/29/17 03:59 Albumin/Globulin Ratio 1.1 % 12/29/17 03:59 Lipase 7 units/L (13-60) L 12/10/17 23:14 Vitamin B12 1465 pg/mL (211-911) H 12/12/17 19:50 Folate 14.04 ng/mL (7.3-26.0) 12/12/17 19:50 TSH 2.560 mlU/mL (0.270-4.200) 12/16/17 12:37 Total Cortisol 8.6 mcg/dL () 12/16/17 12:37 Urine Color Yellow (Yellow) 12/10/17 23:05 Urine Turbidity Clear (Clear) 12/10/17 23:05 Urine pH 5.0 (5.0-7.0) 12/10/17 23:05 Ur Specific Hector 1.013 (1.003-1.030) 12/10/17 23:05 Urine Protein <15 mg/dl mg/dL (Negative) 12/10/17 23:05 Urine Glucose (UA) Neg mg/dL (Negative) 12/10/17 23:05 Urine Ketones Neg mg/dL (Negative) 12/10/17 23:05 Urine Blood Neg (Negative) 12/10/17 23:05 Urine Nitrite Neg (Negative) 12/10/17 23:05 Ur Reducing Substances Not Reportable 12/10/17 23:05 Urine Bilirubin Neg (Negative) 12/10/17 23:05 Urine Ictotest Not Reportable 12/10/17 23:05 Urine Urobilinogen < 2.0 mg/dL (<2.0) 12/10/17 23:05 Ur Leukocyte Esterase Sm (Negative) 12/10/17 23:05 Urine WBC (Auto) 10.0 /HPF (0.0-6.0) H 12/10/17 23:05 Urine RBC (Auto) 4.0 /HPF (0.0-6.0) 12/10/17 23:05 U Epithel Cells (Auto) < 1.0 /HPF (0-13.0) 12/10/17 23:05 Urine Mucus Few /HPF 12/10/17 23:05 Urine Total Volume 250 12/14/17 Unknown Urine Creatinine 122.5 mg/dL (0.1-20.0) H 12/14/17 Unknown Ur Creatinine 24 Hour 0.3 (0.8-2.8) L 12/14/17 Unknown Digoxin 0.4 ng/mL (0.9-2.0) L 12/21/17 05:26 Hepatitis A IgM Ab Non-reactive (NonReactive) 12/12/17 19:50 Hep Bs Antigen Non-reactive (Negative) 12/12/17 19:50 Hep B Core IgM Ab Non-reactive (NonReactive) 12/12/17 19:50 Hepatitis C Antibody Non-reactive (NonReactive) 12/12/17 19:50 Miscellaneous Test Flexitest 1 12/12/17 06:42 Blood Type A NEGATIVE 12/24/17 06:25 Antibody Screen Negative 12/24/17 06:25 Direct Antiglob Test Negative 12/12/17 20:41 JOANNE, Poly Interpret Negative 12/12/17 20:41 Crossmatch See Detail 12/24/17 06:25
[2017-12-30] MEDS: PROAMATINE PO SCH ×3 (09:26→23:23)
[2017-12-30] MEDS: CEPHULAC PO SCH ×2 (09:26→23:23)
[2017-12-30] MEDS: THERAGRAN-M Tab PO SCH (09:26)
[2017-12-30] MEDS: XIFAXAN PO SCH ×2 (09:27→23:25)
[2017-12-30] MEDS: PROTONIX FEEDTUBE SCH (09:27)
--- NOTE | 2017-12-30 09:29 | XRay Report ---
FINAL REPORT EXAM: XR CHEST 1V AP HISTORY: right pleural effusion TECHNIQUE: Frontal chest x-ray. PRIORS: Chest x-ray December 11, 2017. FINDINGS: Cardiac silhouette is within normal limits and stable. Aortic calcifications. Moderate right and small to moderate left pleural effusions with adjacent focal subsegmental atelectasis. Underlying mass or consolidation is not excluded. No pneumothorax. Prominent central pulmonary markings suggest mild pulmonary vascular congestion. There are no suspicious osseous lesions. Left jugular dual lumen dialysis catheter tip is near the cavoatrial junction. IMPRESSION: Bilateral pleural effusions with adjacent areas of focal subsegmental atelectasis. Underlying consolidation or mass is not excluded. Suspect mild pulmonary vascular congestion.
[2017-12-30] MEDS: LOPRESSOR PO SCH ×2 (09:32→23:25)
--- NOTE | 2017-12-30 09:56 | Progress Note ---
Assessment and Plan 1. Non-ischemic cardiomyopathy left ventricular ejection fraction 45-50% 2. Paroxysmal atrial fibrillation 3. History of liver cirrhosis 4. Esophageal varices 5. End-stage renal disease on hemodialysis 6. Socially blind Plan Currently in sinus rhythm cardiac-messina stable continue present medication Subjective Date of service: 12/30/17 Principal diagnosis: CARMEN on CKD; Acute Encephalopathy; Sepsis Syndrome; Anemia Interval history: No specific cardiac issues. Patient socially blind Objective Vital Signs Temp Pulse Resp BP BP Pulse Ox 12/30/17 09:32 90/52 12/30/17 09:10 19 12/30/17 04:51 97.8 F 81 20 99/54 99 12/30/17 00:15 98.9 F 71 90/53 12/29/17 20:40 22 12/29/17 19:54 98 F 70 20 91/51 100 12/29/17 19:12 72 91/51 99 12/29/17 16:36 98.9 F 76 20 82/50 100 12/29/17 10:30 98/42 - Physical Examination General: No Apparent Distress HEENT: Positive: PERRL Neck: Positive: neck supple. Negative: JVD/HJR Cardiac: Positive: Regular Rate, S1/S2, PMI, Laterally Displaced Lungs: Positive: clear to auscultation, No Wheeze, Rales, Rhonchi Neuro: Positive: Weakness Abdomen: Positive: Soft, Active Bowel Sounds Extremities: Absent: edema - Labs and Meds CBC 12/30/17 Range/Units 07:51 WBC 7.5 (4.5-11.0) K/mm3 RBC 1.97 L (3.65-5.03) M/mm3 Hgb 6.7 L (11.8-15.2) gm/dl Hct 18.8 L* (35.5-45.6) % Plt Count 76 L (140-440) K/mm3 Lymph # 1.0 L (1.2-5.4) K/mm3 Woodruff # 0.8 (0.0-0.8) K/mm3 Eos # 0.1 (0.0-0.4) K/mm3 Baso # 0.1 (0.0-0.1) K/mm3 - Allied health notes Allied health notes reviewed: nursing
--- NOTE | 2017-12-30 10:05 | Gastroenterology Progress Note ---
Assessment and Plan - Patient Problems (1) Liver failure Current Visit: Yes Status: Acute Plan to address problem: End stage liver disease with ascites and portal hypertension gastropathy. Small esophageal vearices. He may benefit for abdominal paracentesis prior to considering thoracentesis given that the pleural effusion is typically secondary to ascites. (2) Chronic kidney disease Current Visit: No Status: Acute (3) Symptomatic anemia Current Visit: No Status: Acute Plan to address problem: H&H decreased. Hgb 6.7. No active bleeding observed. He has had no BMs per nurse. Agree with supportive transfusions. Small varices by EGD with no need for banding. He is not suitable for colonoscopy. Will follow at a distance. (4) Cirrhosis of liver with ascites Current Visit: No Status: Chronic Qualifiers: Hepatic cirrhosis type: alcoholic cirrhosis Qualified Code(s): K70.31 - Alcoholic cirrhosis of liver with ascites Subjective Date of service: 12/30/17 Principal diagnosis: anemia, cirrhosis Interval history: The patient has no new complaints. F/u visit requested for falling H&H Objective - Constitutional Vitals: Temp Pulse Resp BP Pulse Ox 97.8 F 81 19 90/52 99 12/30/17 04:51 12/30/17 04:51 12/30/17 09:10 12/30/17 09:32 12/30/17 04:51 General appearance: no acute distress - EENT Eyes: scleral icterus ENT: hearing intact, clear oral mucosa - Neck Neck: supple, normal ROM - Respiratory Respiratory effort: normal Respiratory: bilateral: CTA - Cardiovascular Rhythm: regular - Gastrointestinal General gastrointestinal: Present: soft, non-tender, distended, normal bowel sounds, other (3 plus ascites) Rectal Exam: deferred - Neurologic Neurological: alert and oriented x3 - Psychiatric Psychiatric: agitated (mildly agitated) - Labs CBC & Chem 7: 12/30/17 07:51 12/29/17 03:59 Labs: Laboratory Results - last 24 hr 12/30/17 12/30/17 12/30/17 07:51 08:27 08:44 WBC 7.5 RBC 1.97 L Hgb 6.7 L Hct 18.8 L* MCV 96 H MCH 34 H MCHC 36 H RDW 17.6 H Plt Count 76 L Lymph % (Auto) 13.9 Bates % (Auto) 10.5 H Eos % (Auto) 1.9 Baso % (Auto) 1.3 Lymph # 1.0 L Bates # 0.8 Eos # 0.1 Baso # 0.1 Seg Neutrophils % 72.4 H Seg Neutrophils # 5.4 Magnesium 1.50 L Blood Type A NEGATIVE Antibody Screen Negative Crossmatch See Detail
--- NOTE | 2017-12-30 10:19 | Progress Note ---
Assessment and Plan - Patient Problems (1) Acute hepatic encephalopathy Current Visit: Yes Status: Acute Plan to address problem: see orders. continue with lactulose, recheck ammonia level. continue same. supportive. (2) Anemia Current Visit: Yes Status: Acute Plan to address problem: see orders. Replacement transfusion, if hgb less than 7.0 same as above. see notes above. same as above, stable. see notes above. (3) Renal failure Current Visit: Yes Status: Acute Plan to address problem: follow renal service. same as above. (4) Liver failure Current Visit: Yes Status: Acute Plan to address problem: Hepato-renal syndrome, continue with HD. Subjective Date of service: 12/30/17 Principal diagnosis: anemia, cirrhosis Interval history: Patient seen, restingm labs/notes reviewed. agree with management so far.labs showing consumptive coagulopathy. Patient seen, resting in bed, records/labs reviewed.PLT dropped some.Still no active bleeding. Patient seen/examined, records/labs / notes reviewed, hgb low at 6.9, will rec replacement transfusion,with HD tomorrow if planned to proceed with HD. Patient seen, resting in bed, labs/records reviewed, Hgb still low, transfusion written for today. Patient seen, resting in bed, labs reviewed, plt 57,000, rectal bleeding resolved, will continue to monitor patient/labs with you, and intervene with replacement transfusion, when needed. Patient seen, resting in bed, NAD, records reviewed. Patient seen, resting in bed, labs/records reviewed, no new issues, the latest plt fair, no any sign of bleeding. Patient seen, resting in bed, records reviewed, PLT 57,000, no bleeding. Patient seen, resting in bed, labs reviewed, hgb dropped drastically, due to rectal bleed.He is s/p blood transfusion. he is expected to continue to drop his hgb, as long as he continues to bleed. Will re check labs in am. Thrombocytopenia at above 20,000. will continue to monitor. Patient seen, resting in bed, labs reviewed, ,he will need some PLT+ FFP, especially if there is any plans for any procedure, otherwise, can watch if any active bleeding, or plt 20,000 or less. patient seen/examined, resting in bed, labs reviewed, s/p GI scope, and blood transfusion, Plt replacement ,to follow. patient seen, resting in bed, labs, reviewed, plt 39,000, replacement not given yesterday? Patient seen/examined, at the HD center, resting in bed, was able ro discuss his case with him, regarding prognosis, and options, as i had d/w his yesterday. he wants to talk with his first.. his PLT came up following transfusion, hgb at Fair level at this time,Will see how much this will hold in the next few days.He is really not a good candidate for any transplant ,given, his condition, and co morbid issues at this time. Prognosis is quite poor for Hepato-renal syndrome, let alone complicated by thrombocytopenia/anemia, and double vital organ failure.He has no real reserve as far as these organs are concerned.You may want to have a vinec family talk with him, his , and doctors Patient resting in bed, labs reviewed, and fairly stable, slight drop in hgb, and plt, but overall stable in the last 24hrs.notes reviewed. Patient seen/resting in bed, labs reviewed, d/w primary team. Hgb dropped, but plt holding steady since replacement. Objective - Constitutional Vitals: Vital Signs - 12hr 12/30/17 12/30/17 12/30/17 00:15 04:51 09:10 Temperature 98.9 F 97.8 F Pulse Rate 71 81 Respiratory 20 19 Rate Blood Pressure Blood Pressure 90/53 99/54 [Left] O2 Sat by Pulse 99 Oximetry 12/30/17 09:32 Temperature Pulse Rate Respiratory Rate Blood Pressure 90/52 Blood Pressure [Left] O2 Sat by Pulse Oximetry General appearance: Present: no acute distress - EENT Eyes: PERRL, EOM intact ENT: hearing intact, clear oral mucosa Ears: bilateral: normal - Neck Neck: supple, normal ROM - Respiratory Respiratory effort: normal Respiratory: bilateral: CTA - Breasts Breasts: deferred - Cardiovascular Rhythm: regular Heart Sounds: Present: S1 & S2. Absent: gallop, rub Extremities: pulses intact, No edema, normal color, Full ROM - Gastrointestinal General gastrointestinal: Present: soft, non-tender, non-distended, normal bowel sounds Rectal Exam: deferred - Genitourinary Male genitourinary: deferred - Integumentary Integumentary: clear, warm, dry - Musculoskeletal Musculoskeletal: 1, strength equal bilaterally - Neurologic Neurologic: moves all extremities - Psychiatric Psychiatric: memory intact, appropriate mood/affect, intact judgment & insight - Labs CBC & Chem 7: 12/30/17 07:51 12/29/17 03:59 Labs: Abnormal lab results 12/30/17 12/30/17 12/30/17 Range/Units 07:51 08:27 08:44 RBC 1.97 L (3.65-5.03) M/mm3 Hgb 6.7 L (11.8-15.2) gm/dl Hct 18.8 L* (35.5-45.6) % MCV 96 H (84-94) fl MCH 34 H (28-32) pg MCHC 36 H (32-34) % RDW 17.6 H (13.2-15.2) % Plt Count 76 L (140-440) K/mm3 Elbert % (Auto) 10.5 H (0.0-7.3) % Lymph # 1.0 L (1.2-5.4) K/mm3 Seg Neutrophils % 72.4 H (40.0-70.0) % Magnesium 1.50 L (1.7-2.3) mg/dL Crossmatch See Detail
--- NOTE | 2017-12-30 11:27 | Progress Note ---
Assessment and Plan Impression: * Oliguric CARMEN secondary to ATN vs HRS --s/p permcath placement 12/17/17 and initiation of dialysis * Sepsis * Severe anemia secondary to ABL * Rectal bleeding * Cirrhosis w/ esophageal varices * Hyperbilirubinemia * Pyuria * Metabolic acidosis, resolved * Hyperkalemia, resolved Plan: * Patient remains oliguric w/o evidence of recovery. Continue dialysis - MWF schedule * Transfusion pRBC per primary team * Consultants' recommendations reviewed, s/p egd * epogen with hd * Medical management of electrolytes * Avoid potential nephrotoxic agents * Dose medications for renal function * Outpatient HD MWF at [facility] arranged * D/W patient's at bedside Subjective Date of service: 12/30/17 Principal diagnosis: anemia, cirrhosis Interval history: patient is awake and alert . Upset today as he is not being sent home Objective - Vital Signs Vital signs: Vital Signs - 12hr 12/30/17 12/30/17 12/30/17 00:15 04:51 09:10 Temperature 98.9 F 97.8 F Pulse Rate 71 81 Respiratory 20 19 Rate Blood Pressure Blood Pressure 90/53 99/54 [Left] O2 Sat by Pulse 99 Oximetry 12/30/17 09:32 Temperature Pulse Rate Respiratory Rate Blood Pressure 90/52 Blood Pressure [Left] O2 Sat by Pulse Oximetry - General Appearance General appearance: well-developed, well-nourished, appears stated age EENT: PERRL, mucous membranes moist Neck: no JVD, no thyromegaly, no carotid bruit, supple, other (IJ permcath in place ) Respiratory: Present: Clear to Ascultation Cardiology: regular, normal heart rate, S1S2, no murmurs Gastrointestinal: normal, normoactive bowel sounds Integumentary: other (no edema ) - Lab 12/30/17 07:51 12/29/17 03:59 Most recent lab results Calcium 8.7 mg/dL (8.4-10.2) 12/29/17 03:59 Phosphorus 2.40 mg/dL (2.5-4.5) L 12/26/17 05:59 Magnesium 1.50 mg/dL (1.7-2.3) L 12/30/17 08:27 Urine Creatinine 122.5 mg/dL (0.1-20.0) H 12/14/17 Unknown
--- NOTE | 2017-12-30 13:08 | Progress Note ---
Assessment and Plan Sepsis, possibly SBP Acute encephalopathy Severe anemia Lactic acidosis, multifactorial Cirrhosis with esophageal varices Rectal bleeding Coagulopathy Metabolic acidosis, multifactorial Respiratory alkalosis Nonoliguric CARMEN secondary to prerenal azotemia due to hypoperfusion ATN vs HRS Moderate protein calorie malnutrition -PT/INR remains elevated. Plan for thoracentesis which is scheduled for Sunday. Plan for FFP transfusion on Sunday, to reverse coagulopathy to allow for thoracentesis Discussed with hospitalist, re paracentesis as recommended by GI service -Aspiration precautions -continue chronic home medications, including rifaximin and midodrine -Avoid nephrotoxics and adjust all medications for GFRs -Continue therapeutic PPI -Monitor off antibiotics -Continue with lactulose to titrate to 2-3 bowel movements a day -SCDs for VTE prophylaxis in view of GIB and coagulopathy -Supportive transfusions - Continue with nutritional support, get RD for calorie count - Continue PT/OT FULL CODE STATUS PROGNOSIS GUARDED Subjective Date of service: 12/30/17 Principal diagnosis: anemia, cirrhosis Interval history: Seen and examined. vitals, labs, medications, chart and imaging reviewed. 24 hour events reviewed. No fevers or chills, no nausea or vomiting No shortness of breath. States he feels ok Sleeping but rousable. Appetite remains, suboptimal Objective Vital Signs - 12hr 12/30/17 12/30/17 12/30/17 04:51 08:12 09:10 Temperature 97.8 F Pulse Rate 81 72 Respiratory 20 20 19 Rate Blood Pressure 94/56 Blood Pressure 99/54 [Left] O2 Sat by Pulse 99 95 Oximetry 12/30/17 12/30/17 12/30/17 09:32 10:00 11:52 Temperature Pulse Rate 69 74 Respiratory 20 Rate Blood Pressure 90/52 84/51 Blood Pressure [Left] O2 Sat by Pulse 96 Oximetry Constitutional: alert, other (chronically ill looking elderly AAM, normocephalic and atraumatic) Eyes: non-icteric ENT: oropharynx moist, other (mallampati 2) Neck: supple, no lymphadenopathy, no JVD, other (no thyromegaly) Effort: normal Ascultation: Bilateral: diminished breath sounds (bases), rhonchi (scant) Percussion: Bilateral: not dull, dull (bases) Cardiovascular: regular rate and rhythm, other (S1,S2, no murmurms, gallops or rubs) Gastrointestinal: normoactive bowel sounds, soft, non-tender, other (distended) Integumentary: rash Extremities: no cyanosis, no edema, pulses normal, no ischemia or petechiae, cool Neurologic: non-focal exam, pupils equal and round, motor strength normal and ( weak), other (alert, awake) Psychiatric: other (normal affect, confusion) CBC and BMP: 01/06/18 02:35 01/06/18 02:35 ABG, PT/INR, D-dimer: ABG POC ABG pH 7.452 (7.35-7.45) H 12/12/17 09:13 POC ABG pCO2 22.2 (35-45) L 12/12/17 09:13 POC ABG pO2 75 (80-105) L 12/12/17 09:13 POC ABG HCO3 15.5 12/12/17 09:13 POC ABG Total CO2 16 12/12/17 09:13 POC ABG O2 Sat 96 12/12/17 09:13 PT/INR, D-dimer PT 25.7 Sec. (12.2-14.9) H 12/29/17 00:34 INR 2.18 (0.87-1.13) H 12/29/17 00:34 D-Dimer 1215.06 ng/mlDDU (0-234) H 12/12/17 19:50 Abnormal lab findings: Abnormal Labs 12/10/17 12/10/17 12/10/17 13:14 13:14 23:05 RBC 2.31 L Hgb 7.3 L Hct 21.5 L MCV MCH MCHC RDW 17.7 H Plt Count 61 L Lymph % (Auto) [place] % (Auto) Lymph # [place] # Seg Neutrophils % Seg Neuts % (Manual) 81.0 H Lymphocytes % (Manual) 11.0 L Lymphocytes # (Manual) 0.6 L PT INR APTT Fibrinogen D-Dimer POC ABG pH POC ABG pCO2 POC ABG pO2 Sodium 136 L Potassium 5.2 H Chloride Carbon Dioxide 15 L BUN 47 H Creatinine 5.2 H Glucose 127 H POC Glucose Lactic Acid Calcium Phosphorus Magnesium TIBC Ferritin Total Bilirubin 3.50 H Direct Bilirubin AST 71 H Ammonia Lactate Dehydrogenase NT-Pro-B Natriuret Pep Total Protein Albumin 2.6 L Lipase Vitamin B12 Urine WBC (Auto) 10.0 H Urine Creatinine Ur Creatinine 24 Hour Digoxin Crossmatch 12/10/17 12/10/17 12/10/17 23:14 23:14 23:14 RBC Hgb Hct MCV MCH MCHC RDW Plt Count Lymph % (Auto) [place] % (Auto) Lymph # [place] # Seg Neutrophils % Seg Neuts % (Manual) Lymphocytes % (Manual) Lymphocytes # (Manual) PT INR APTT Fibrinogen D-Dimer POC ABG pH POC ABG pCO2 POC ABG pO2 Sodium Potassium Chloride Carbon Dioxide BUN Creatinine Glucose POC Glucose Lactic Acid 2.40 H* Calcium Phosphorus Magnesium TIBC Ferritin Total Bilirubin Direct Bilirubin AST Ammonia 134.0 H Lactate Dehydrogenase NT-Pro-B Natriuret Pep 9558 H Total Protein Albumin Lipase Vitamin B12 Urine WBC (Auto) Urine Creatinine Ur Creatinine 24 Hour Digoxin Crossmatch 12/10/17 12/11/17 12/11/17 23:14 00:29 03:33 RBC Hgb Hct MCV MCH MCHC RDW Plt Count Lymph % (Auto) [place] % (Auto) Lymph # [place] # Seg Neutrophils % Seg Neuts % (Manual) Lymphocytes % (Manual) Lymphocytes # (Manual) PT INR APTT Fibrinogen D-Dimer POC ABG pH POC ABG pCO2 POC ABG pO2 Sodium Potassium Chloride Carbon Dioxide BUN Creatinine Glucose POC Glucose Lactic Acid 2.80 H* 3.00 H* Calcium Phosphorus Magnesium TIBC Ferritin Total Bilirubin Direct Bilirubin AST Ammonia Lactate Dehydrogenase NT-Pro-B Natriuret Pep Total Protein Albumin Lipase 7 L Vitamin B12 Urine WBC (Auto) Urine Creatinine Ur Creatinine 24 Hour Digoxin Crossmatch 12/11/17 12/11/17 12/11/17 04:08 04:34 04:34 RBC Hgb Hct MCV MCH MCHC RDW Plt Count Lymph % (Auto) [place] % (Auto) Lymph # [place] # Seg Neutrophils % Seg Neuts % (Manual) Lymphocytes % (Manual) Lymphocytes # (Manual) PT 19.1 H INR 1.51 H APTT 45.7 H Fibrinogen D-Dimer POC ABG pH POC ABG pCO2 POC ABG pO2 Sodium Potassium Chloride Carbon Dioxide BUN Creatinine Glucose POC Glucose 113 H Lactic Acid 3.10 H* Calcium Phosphorus Magnesium TIBC Ferritin Total Bilirubin Direct Bilirubin AST Ammonia Lactate Dehydrogenase NT-Pro-B Natriuret Pep Total Protein Albumin Lipase Vitamin B12 Urine WBC (Auto) Urine Creatinine Ur Creatinine 24 Hour Digoxin Crossmatch 12/11/17 12/11/17 12/11/17 06:46 07:26 09:42 RBC Hgb Hct MCV MCH MCHC RDW Plt Count Lymph % (Auto) [place] % (Auto) Lymph # [place] # Seg Neutrophils % Seg Neuts % (Manual) Lymphocytes % (Manual) Lymphocytes # (Manual) PT INR APTT Fibrinogen D-Dimer POC ABG pH POC ABG pCO2 POC ABG pO2 Sodium Potassium Chloride Carbon Dioxide BUN Creatinine Glucose POC Glucose Lactic Acid 2.70 H* 2.80 H* 2.90 H* Calcium Phosphorus Magnesium TIBC Ferritin Total Bilirubin Direct Bilirubin AST Ammonia Lactate Dehydrogenase NT-Pro-B Natriuret Pep Total Protein Albumin Lipase Vitamin B12 Urine WBC (Auto) Urine Creatinine Ur Creatinine 24 Hour Digoxin Crossmatch 12/11/17 12/11/17 12/11/17 13:12 14:06 23:14 RBC Hgb Hct MCV MCH MCHC RDW Plt Count Lymph % (Auto) [place] % (Auto) Lymph # [place] # Seg Neutrophils % Seg Neuts % (Manual) Lymphocytes % (Manual) Lymphocytes # (Manual) PT INR APTT Fibrinogen D-Dimer POC ABG pH POC ABG pCO2 POC ABG pO2 Sodium Potassium Chloride Carbon Dioxide BUN Creatinine Glucose POC Glucose Lactic Acid 3.10 H* 3.10 H* 3.70 H* Calcium Phosphorus Magnesium TIBC Ferritin Total Bilirubin Direct Bilirubin AST Ammonia Lactate Dehydrogenase NT-Pro-B Natriuret Pep Total Protein Albumin Lipase Vitamin B12 Urine WBC (Auto) Urine Creatinine Ur Creatinine 24 Hour Digoxin Crossmatch 12/11/17 12/12/17 12/12/17 23:23 03:41 03:41 RBC 2.17 L Hgb 7.0 L Hct 19.9 L* MCV MCH 33 H MCHC 35 H RDW 17.7 H Plt Count 62 L Lymph % (Auto) [place] % (Auto) Lymph # [place] # Seg Neutrophils % Seg Neuts % (Manual) 91.0 H Lymphocytes % (Manual) 3.0 L Lymphocytes # (Manual) 0.2 L PT INR APTT Fibrinogen D-Dimer POC ABG pH POC ABG pCO2 POC ABG pO2 Sodium Potassium 5.4 H Chloride Carbon Dioxide 12 L BUN 47 H Creatinine 4.5 H Glucose 103 H POC Glucose Lactic Acid Calcium 8.0 L Phosphorus Magnesium TIBC Ferritin Total Bilirubin 3.60 H Direct Bilirubin AST 58 H Ammonia Lactate Dehydrogenase NT-Pro-B Natriuret Pep Total Protein 5.9 L Albumin 2.5 L Lipase Vitamin B12 Urine WBC (Auto) Urine Creatinine Ur Creatinine 24 Hour Digoxin Crossmatch See Detail 12/12/17 12/12/17 12/12/17 07:00 09:13 17:55 RBC 2.06 L Hgb 6.6 L Hct 18.6 L* MCV MCH MCHC 36 H RDW 17.8 H Plt Count 77 L Lymph % (Auto) [place] % (Auto) Lymph # [place] # Seg Neutrophils % Seg Neuts % (Manual) Lymphocytes % (Manual) Lymphocytes # (Manual) PT INR APTT Fibrinogen D-Dimer POC ABG pH 7.452 H POC ABG pCO2 22.2 L POC ABG pO2 75 L Sodium Potassium Chloride Carbon Dioxide BUN Creatinine Glucose POC Glucose 119 H Lactic Acid Calcium Phosphorus Magnesium TIBC Ferritin Total Bilirubin Direct Bilirubin AST Ammonia Lactate Dehydrogenase NT-Pro-B Natriuret Pep Total Protein Albumin Lipase Vitamin B12 Urine WBC (Auto) Urine Creatinine Ur Creatinine 24 Hour Digoxin Crossmatch 12/12/17 12/12/17 12/12/17 19:50 19:50 19:50 RBC 2.40 L Hgb 7.8 L Hct 21.3 L MCV MCH 33 H MCHC 37 H RDW 16.1 H Plt Count 99 L Lymph % (Auto) [place] % (Auto) Lymph # [place] # Seg Neutrophils % Seg Neuts % (Manual) 87.0 H Lymphocytes % (Manual) 5.0 L Lymphocytes # (Manual) 0.3 L PT 21.9 H INR 1.79 H APTT 41.5 H Fibrinogen 128 L D-Dimer 1215.06 H POC ABG pH POC ABG pCO2 POC ABG pO2 Sodium Potassium Chloride Carbon Dioxide BUN Creatinine Glucose POC Glucose Lactic Acid Calcium Phosphorus Magnesium TIBC Ferritin Total Bilirubin 4.10 H Direct Bilirubin 1.6 H AST Ammonia Lactate Dehydrogenase NT-Pro-B Natriuret Pep Total Protein Albumin Lipase Vitamin B12 Urine WBC (Auto) Urine Creatinine Ur Creatinine 24 Hour Digoxin Crossmatch 12/12/17 12/12/17 12/12/17 19:50 19:50 23:46 RBC Hgb Hct MCV MCH MCHC RDW Plt Count Lymph % (Auto) [place] % (Auto) Lymph # [place] # Seg Neutrophils % Seg Neuts % (Manual) Lymphocytes % (Manual) Lymphocytes # (Manual) PT INR APTT Fibrinogen D-Dimer POC ABG pH POC ABG pCO2 POC ABG pO2 Sodium Potassium Chloride Carbon Dioxide BUN Creatinine Glucose POC Glucose 110 H Lactic Acid Calcium Phosphorus Magnesium TIBC Ferritin Total Bilirubin Direct Bilirubin AST Ammonia Lactate Dehydrogenase 213 H NT-Pro-B Natriuret Pep Total Protein Albumin Lipase Vitamin B12 1465 H Urine WBC (Auto) Urine Creatinine Ur Creatinine 24 Hour Digoxin Crossmatch 12/13/17 12/13/17 12/13/17 04:00 04:00 05:12 RBC 2.32 L Hgb 7.4 L Hct 20.8 L MCV MCH MCHC 36 H RDW 16.1 H Plt Count 134 L Lymph % (Auto) 13.1 L [place] % (Auto) 7.9 H Lymph # 0.8 L [place] # Seg Neutrophils % 76.3 H Seg Neuts % (Manual) Lymphocytes % (Manual) Lymphocytes # (Manual) PT INR APTT Fibrinogen D-Dimer POC ABG pH POC ABG pCO2 POC ABG pO2 Sodium Potassium Chloride Carbon Dioxide 21 L D BUN 48 H Creatinine 4.6 H Glucose 104 H POC Glucose 134 H Lactic Acid Calcium 8.1 L Phosphorus Magnesium TIBC Ferritin Total Bilirubin 4.70 H Direct Bilirubin AST 43 H Ammonia Lactate Dehydrogenase NT-Pro-B Natriuret Pep Total Protein 5.8 L Albumin 3.1 L Lipase Vitamin B12 Urine WBC (Auto) Urine Creatinine Ur Creatinine 24 Hour Digoxin Crossmatch 12/13/17 12/13/17 12/13/17 08:45 12:25 14:03 RBC Hgb Hct MCV MCH MCHC RDW Plt Count Lymph % (Auto) [place] % (Auto) Lymph # [place] # Seg Neutrophils % Seg Neuts % (Manual) Lymphocytes % (Manual) Lymphocytes # (Manual) PT 20.5 H INR 1.65 H APTT Fibrinogen D-Dimer POC ABG pH POC ABG pCO2 POC ABG pO2 Sodium Potassium Chloride Carbon Dioxide BUN Creatinine Glucose POC Glucose 112 H Lactic Acid 3.70 H* Calcium Phosphorus Magnesium TIBC Ferritin Total Bilirubin Direct Bilirubin AST Ammonia Lactate Dehydrogenase NT-Pro-B Natriuret Pep Total Protein Albumin Lipase Vitamin B12 Urine WBC (Auto) Urine Creatinine Ur Creatinine 24 Hour Digoxin Crossmatch 12/13/17 12/13/17 12/13/17 14:03 18:52 21:09 RBC Hgb Hct MCV MCH MCHC RDW Plt Count Lymph % (Auto) [place] % (Auto) Lymph # [place] # Seg Neutrophils % Seg Neuts % (Manual) Lymphocytes % (Manual) Lymphocytes # (Manual) PT INR APTT Fibrinogen D-Dimer POC ABG pH POC ABG pCO2 POC ABG pO2 Sodium Potassium Chloride Carbon Dioxide BUN Creatinine Glucose POC Glucose 110 H Lactic Acid 4.00 H* Calcium Phosphorus Magnesium TIBC Ferritin Total Bilirubin Direct Bilirubin AST Ammonia 87.0 H Lactate Dehydrogenase NT-Pro-B Natriuret Pep Total Protein Albumin Lipase Vitamin B12 Urine WBC (Auto) Urine Creatinine Ur Creatinine 24 Hour Digoxin Crossmatch 12/14/17 12/14/17 12/14/17 00:25 03:30 03:30 RBC 2.29 L Hgb 7.3 L Hct 20.7 L MCV MCH MCHC 35 H RDW 16.2 H Plt Count 84 L Lymph % (Auto) 12.8 L [place] % (Auto) 8.3 H Lymph # 0.6 L [place] # Seg Neutrophils % 77.2 H Seg Neuts % (Manual) Lymphocytes % (Manual) Lymphocytes # (Manual) PT INR APTT Fibrinogen D-Dimer POC ABG pH POC ABG pCO2 POC ABG pO2 Sodium Potassium Chloride 96.1 L Carbon Dioxide BUN 48 H Creatinine 4.6 H Glucose 125 H POC Glucose 131 H Lactic Acid Calcium 7.9 L Phosphorus Magnesium TIBC Ferritin Total Bilirubin 4.70 H Direct Bilirubin AST 45 H Ammonia Lactate Dehydrogenase NT-Pro-B Natriuret Pep Total Protein 6.1 L Albumin 3.4 L Lipase Vitamin B12 Urine WBC (Auto) Urine Creatinine Ur Creatinine 24 Hour Digoxin Crossmatch 12/14/17 12/14/17 12/14/17 05:31 12:26 12:55 RBC Hgb Hct MCV MCH MCHC RDW Plt Count Lymph % (Auto) [place] % (Auto) Lymph # [place] # Seg Neutrophils % Seg Neuts % (Manual) Lymphocytes % (Manual) Lymphocytes # (Manual) PT INR APTT Fibrinogen D-Dimer POC ABG pH POC ABG pCO2 POC ABG pO2 Sodium Potassium Chloride Carbon Dioxide BUN Creatinine Glucose POC Glucose 125 H 117 H Lactic Acid 3.40 H* Calcium Phosphorus Magnesium TIBC Ferritin Total Bilirubin Direct Bilirubin AST Ammonia Lactate Dehydrogenase NT-Pro-B Natriuret Pep Total Protein Albumin Lipase Vitamin B12 Urine WBC (Auto) Urine Creatinine Ur Creatinine 24 Hour Digoxin Crossmatch 12/14/17 12/14/17 12/14/17 15:26 17:26 18:07 RBC Hgb Hct MCV MCH MCHC RDW Plt Count Lymph % (Auto) [place] % (Auto) Lymph # [place] # Seg Neutrophils % Seg Neuts % (Manual) Lymphocytes % (Manual) Lymphocytes # (Manual) PT INR APTT Fibrinogen D-Dimer POC ABG pH POC ABG pCO2 POC ABG pO2 Sodium Potassium Chloride Carbon Dioxide BUN Creatinine Glucose POC Glucose 143 H Lactic Acid 4.00 H* 3.90 H* Calcium Phosphorus Magnesium TIBC Ferritin Total Bilirubin Direct Bilirubin AST Ammonia Lactate Dehydrogenase NT-Pro-B Natriuret Pep Total Protein Albumin Lipase Vitamin B12 Urine WBC (Auto) Urine Creatinine Ur Creatinine 24 Hour Digoxin Crossmatch 12/14/17 12/15/17 12/15/17 Unknown 00:08 04:51 RBC 2.27 L Hgb 7.3 L Hct 20.7 L MCV MCH MCHC 35 H RDW 16.1 H Plt Count 92 L Lymph % (Auto) 12.5 L [place] % (Auto) 10.4 H Lymph # 0.6 L [place] # Seg Neutrophils % 74.7 H Seg Neuts % (Manual) Lymphocytes % (Manual) Lymphocytes # (Manual) PT INR APTT Fibrinogen D-Dimer POC ABG pH POC ABG pCO2 POC ABG pO2 Sodium Potassium Chloride Carbon Dioxide BUN Creatinine Glucose POC Glucose 124 H Lactic Acid Calcium Phosphorus Magnesium TIBC Ferritin Total Bilirubin Direct Bilirubin AST Ammonia Lactate Dehydrogenase NT-Pro-B Natriuret Pep Total Protein Albumin Lipase Vitamin B12 Urine WBC (Auto) Urine Creatinine 122.5 H Ur Creatinine 24 Hour 0.3 L Digoxin Crossmatch 12/15/17 12/15/17 12/15/17 04:51 04:51 05:56 RBC Hgb Hct MCV MCH MCHC RDW Plt Count Lymph % (Auto) [place] % (Auto) Lymph # [place] # Seg Neutrophils % Seg Neuts % (Manual) Lymphocytes % (Manual) Lymphocytes # (Manual) PT INR APTT Fibrinogen D-Dimer POC ABG pH POC ABG pCO2 POC ABG pO2 Sodium Potassium 3.5 L Chloride 92.6 L Carbon Dioxide BUN 50 H Creatinine 4.8 H Glucose 141 H POC Glucose 143 H Lactic Acid Calcium 7.9 L Phosphorus Magnesium TIBC Ferritin Total Bilirubin 3.60 H Direct Bilirubin AST 44 H Ammonia 24.0 L Lactate Dehydrogenase NT-Pro-B Natriuret Pep Total Protein 6.1 L Albumin 3.8 L Lipase Vitamin B12 Urine WBC (Auto) Urine Creatinine Ur Creatinine 24 Hour Digoxin Crossmatch 12/15/17 12/15/17 12/16/17 12:17 23:10 07:04 RBC Hgb Hct MCV MCH MCHC RDW Plt Count Lymph % (Auto) [place] % (Auto) Lymph # [place] # Seg Neutrophils % Seg Neuts % (Manual) Lymphocytes % (Manual) Lymphocytes # (Manual) PT INR APTT Fibrinogen D-Dimer POC ABG pH POC ABG pCO2 POC ABG pO2 Sodium Potassium Chloride Carbon Dioxide BUN Creatinine Glucose POC Glucose 127 H 157 H 147 H Lactic Acid Calcium Phosphorus Magnesium TIBC Ferritin Total Bilirubin Direct Bilirubin AST Ammonia Lactate Dehydrogenase NT-Pro-B Natriuret Pep Total Protein Albumin Lipase Vitamin B12 Urine WBC (Auto) Urine Creatinine Ur Creatinine 24 Hour Digoxin Crossmatch 12/16/17 12/16/17 12/16/17 11:35 12:37 12:37 RBC 2.21 L Hgb 6.9 L Hct 20.2 L MCV MCH MCHC RDW 16.2 H Plt Count 50 L Lymph % (Auto) [place] % (Auto) 9.7 H Lymph # 0.7 L [place] # Seg Neutrophils % 73.1 H Seg Neuts % (Manual) Lymphocytes % (Manual) Lymphocytes # (Manual) PT INR APTT Fibrinogen D-Dimer POC ABG pH POC ABG pCO2 POC ABG pO2 Sodium Potassium Chloride 88.2 L Carbon Dioxide BUN 52 H Creatinine 5.5 H Glucose 107 H POC Glucose 134 H Lactic Acid Calcium 7.8 L Phosphorus Magnesium TIBC Ferritin Total Bilirubin 2.60 H Direct Bilirubin AST 49 H Ammonia Lactate Dehydrogenase NT-Pro-B Natriuret Pep Total Protein Albumin 3.6 L Lipase Vitamin B12 Urine WBC (Auto) Urine Creatinine Ur Creatinine 24 Hour Digoxin Crossmatch 12/16/17 12/16/17 12/16/17 18:06 20:45 23:34 RBC Hgb Hct MCV MCH MCHC RDW Plt Count Lymph % (Auto) [place] % (Auto) Lymph # [place] # Seg Neutrophils % Seg Neuts % (Manual) Lymphocytes % (Manual) Lymphocytes # (Manual) PT INR APTT Fibrinogen D-Dimer POC ABG pH POC ABG pCO2 POC ABG pO2 Sodium Potassium Chloride Carbon Dioxide BUN Creatinine Glucose POC Glucose 133 H 139 H Lactic Acid Calcium Phosphorus Magnesium TIBC Ferritin Total Bilirubin Direct Bilirubin AST Ammonia Lactate Dehydrogenase NT-Pro-B Natriuret Pep Total Protein Albumin Lipase Vitamin B12 Urine WBC (Auto) Urine Creatinine Ur Creatinine 24 Hour Digoxin Crossmatch See Detail 12/17/17 12/17/17 12/17/17 05:27 05:27 06:11 RBC 2.10 L Hgb 6.6 L Hct 19.2 L* MCV MCH MCHC 35 H RDW 16.5 H Plt Count 65 L Lymph % (Auto) 12.6 L [place] % (Auto) 9.6 H Lymph # 0.7 L [place] # Seg Neutrophils % 75.8 H Seg Neuts % (Manual) Lymphocytes % (Manual) Lymphocytes # (Manual) PT INR APTT Fibrinogen D-Dimer POC ABG pH POC ABG pCO2 POC ABG pO2 Sodium 135 L Potassium 3.4 L Chloride 84.9 L Carbon Dioxide 33 H BUN 53 H Creatinine 5.9 H Glucose POC Glucose 110 H Lactic Acid Calcium 7.7 L Phosphorus Magnesium TIBC Ferritin Total Bilirubin 2.70 H Direct Bilirubin AST 50 H Ammonia Lactate Dehydrogenase NT-Pro-B Natriuret Pep Total Protein 6.2 L Albumin 3.7 L Lipase Vitamin B12 Urine WBC (Auto) Urine Creatinine Ur Creatinine 24 Hour Digoxin Crossmatch 12/17/17 12/18/17 12/18/17 09:34 00:05 05:21 RBC 3.35 L Hgb 10.3 L D Hct 30.4 L D MCV MCH MCHC RDW 16.2 H Plt Count 57 L Lymph % (Auto) 8.0 L [place] % (Auto) 10.9 H Lymph # 0.6 L [place] # Seg Neutrophils % 80.2 H Seg Neuts % (Manual) Lymphocytes % (Manual) Lymphocytes # (Manual) PT 23.9 H INR 1.99 H APTT Fibrinogen D-Dimer POC ABG pH POC ABG pCO2 POC ABG pO2 Sodium Potassium Chloride Carbon Dioxide BUN Creatinine Glucose POC Glucose 132 H Lactic Acid Calcium Phosphorus Magnesium TIBC Ferritin Total Bilirubin Direct Bilirubin AST Ammonia Lactate Dehydrogenase NT-Pro-B Natriuret Pep Total Protein Albumin Lipase Vitamin B12 Urine WBC (Auto) Urine Creatinine Ur Creatinine 24 Hour Digoxin Crossmatch 12/18/17 12/18/17 12/18/17 05:21 06:16 11:11 RBC Hgb Hct MCV MCH MCHC RDW Plt Count Lymph % (Auto) [place] % (Auto) Lymph # [place] # Seg Neutrophils % Seg Neuts % (Manual) Lymphocytes % (Manual) Lymphocytes # (Manual) PT 34.7 H INR 3.17 H APTT Fibrinogen D-Dimer POC ABG pH POC ABG pCO2 POC ABG pO2 Sodium Potassium 3.5 L Chloride 87.1 L Carbon Dioxide BUN 35 H Creatinine 4.3 H Glucose 110 H POC Glucose 116 H Lactic Acid Calcium 8.1 L Phosphorus Magnesium TIBC Ferritin Total Bilirubin 5.10 H Direct Bilirubin AST 56 H Ammonia Lactate Dehydrogenase NT-Pro-B Natriuret Pep Total Protein Albumin Lipase Vitamin B12 Urine WBC (Auto) Urine Creatinine Ur Creatinine 24 Hour Digoxin Crossmatch 12/18/17 12/18/17 12/18/17 13:10 17:52 22:04 RBC Hgb Hct MCV MCH MCHC RDW Plt Count Lymph % (Auto) [place] % (Auto) Lymph # [place] # Seg Neutrophils % Seg Neuts % (Manual) Lymphocytes % (Manual) Lymphocytes # (Manual) PT 25.9 H INR 2.20 H APTT Fibrinogen D-Dimer POC ABG pH POC ABG pCO2 POC ABG pO2 Sodium Potassium Chloride Carbon Dioxide BUN Creatinine Glucose POC Glucose 114 H 108 H Lactic Acid Calcium Phosphorus Magnesium TIBC Ferritin Total Bilirubin Direct Bilirubin AST Ammonia Lactate Dehydrogenase NT-Pro-B Natriuret Pep Total Protein Albumin Lipase Vitamin B12 Urine WBC (Auto) Urine Creatinine Ur Creatinine 24 Hour Digoxin Crossmatch 12/19/17 12/19/17 12/19/17 05:55 05:55 10:20 RBC 2.85 L Hgb 9.1 L Hct 25.7 L MCV MCH MCHC 35 H RDW 16.4 H Plt Count 61 L Lymph % (Auto) [place] % (Auto) Lymph # [place] # Seg Neutrophils % Seg Neuts % (Manual) Lymphocytes % (Manual) Lymphocytes # (Manual) PT INR APTT Fibrinogen D-Dimer POC ABG pH POC ABG pCO2 POC ABG pO2 Sodium Potassium Chloride 94.5 L Carbon Dioxide BUN 27 H Creatinine 3.6 H Glucose POC Glucose 131 H Lactic Acid Calcium 8.2 L Phosphorus Magnesium TIBC Ferritin Total Bilirubin Direct Bilirubin AST Ammonia Lactate Dehydrogenase NT-Pro-B Natriuret Pep Total Protein Albumin Lipase Vitamin B12 Urine WBC (Auto) Urine Creatinine Ur Creatinine 24 Hour Digoxin Crossmatch 12/19/17 12/21/17 12/21/17 11:46 05:26 05:26 RBC 2.60 L Hgb 8.4 L Hct 23.9 L MCV MCH MCHC 35 H RDW 16.2 H Plt Count 57 L Lymph % (Auto) 12.4 L [place] % (Auto) 10.7 H Lymph # [place] # 1.0 H Seg Neutrophils % 74.8 H Seg Neuts % (Manual) Lymphocytes % (Manual) Lymphocytes # (Manual) PT 26.2 H INR 2.23 H APTT Fibrinogen D-Dimer POC ABG pH POC ABG pCO2 POC ABG pO2 Sodium Potassium Chloride Carbon Dioxide BUN Creatinine Glucose POC Glucose Lactic Acid Calcium Phosphorus Magnesium TIBC Ferritin Total Bilirubin Direct Bilirubin AST Ammonia Lactate Dehydrogenase NT-Pro-B Natriuret Pep Total Protein Albumin Lipase Vitamin B12 Urine WBC (Auto) Urine Creatinine Ur Creatinine 24 Hour Digoxin 0.4 L Crossmatch 12/21/17 12/23/17 12/24/17 09:40 08:15 04:51 RBC 1.80 L Hgb 5.9 L* Hct 17.0 L* D MCV MCH 33 H MCHC 35 H RDW 16.5 H Plt Count 53 L Lymph % (Auto) [place] % (Auto) Lymph # [place] # Seg Neutrophils % Seg Neuts % (Manual) Lymphocytes % (Manual) Lymphocytes # (Manual) PT 26.4 H 27.9 H INR 2.26 H 2.42 H APTT Fibrinogen D-Dimer POC ABG pH POC ABG pCO2 POC ABG pO2 Sodium Potassium Chloride Carbon Dioxide BUN Creatinine Glucose POC Glucose Lactic Acid Calcium Phosphorus Magnesium TIBC Ferritin Total Bilirubin Direct Bilirubin AST Ammonia Lactate Dehydrogenase NT-Pro-B Natriuret Pep Total Protein Albumin Lipase Vitamin B12 Urine WBC (Auto) Urine Creatinine Ur Creatinine 24 Hour Digoxin Crossmatch 12/24/17 12/24/17 12/24/17 04:51 06:25 08:20 RBC Hgb Hct MCV MCH MCHC RDW Plt Count Lymph % (Auto) [place] % (Auto) Lymph # [place] # Seg Neutrophils % Seg Neuts % (Manual) Lymphocytes % (Manual) Lymphocytes # (Manual) PT 40.8 H INR 3.87 H APTT Fibrinogen D-Dimer POC ABG pH POC ABG pCO2 POC ABG pO2 Sodium Potassium 3.5 L Chloride Carbon Dioxide BUN 21 H Creatinine 4.4 H Glucose POC Glucose Lactic Acid Calcium 8.1 L Phosphorus Magnesium TIBC Ferritin Total Bilirubin Direct Bilirubin AST Ammonia Lactate Dehydrogenase NT-Pro-B Natriuret Pep Total Protein Albumin Lipase Vitamin B12 Urine WBC (Auto) Urine Creatinine Ur Creatinine 24 Hour Digoxin Crossmatch See Detail 12/24/17 12/24/17 12/25/17 19:21 19:21 05:27 RBC 2.31 L Hgb 7.3 L 7.4 L Hct 20.4 L 21.3 L MCV MCH MCHC 35 H RDW 15.9 H Plt Count 39 L Lymph % (Auto) [place] % (Auto) 10.8 H Lymph # 0.9 L [place] # Seg Neutrophils % 71.9 H Seg Neuts % (Manual) Lymphocytes % (Manual) Lymphocytes # (Manual) PT 21.3 H INR 1.73 H APTT Fibrinogen D-Dimer POC ABG pH POC ABG pCO2 POC ABG pO2 Sodium Potassium Chloride Carbon Dioxide BUN Creatinine Glucose POC Glucose Lactic Acid Calcium Phosphorus Magnesium TIBC Ferritin Total Bilirubin Direct Bilirubin AST Ammonia Lactate Dehydrogenase NT-Pro-B Natriuret Pep Total Protein Albumin Lipase Vitamin B12 Urine WBC (Auto) Urine Creatinine Ur Creatinine 24 Hour Digoxin Crossmatch 12/25/17 12/25/17 12/25/17 05:27 05:27 12:24 RBC Hgb Hct MCV MCH MCHC RDW Plt Count Lymph % (Auto) [place] % (Auto) Lymph # [place] # Seg Neutrophils % Seg Neuts % (Manual) Lymphocytes % (Manual) Lymphocytes # (Manual) PT 22.1 H INR 1.81 H APTT Fibrinogen D-Dimer POC ABG pH POC ABG pCO2 POC ABG pO2 Sodium Potassium 3.5 L Chloride 96.7 L Carbon Dioxide BUN Creatinine 3.2 H Glucose POC Glucose 140 H Lactic Acid Calcium 8.1 L Phosphorus Magnesium TIBC Ferritin Total Bilirubin Direct Bilirubin AST Ammonia Lactate Dehydrogenase NT-Pro-B Natriuret Pep Total Protein Albumin Lipase Vitamin B12 Urine WBC (Auto) Urine Creatinine Ur Creatinine 24 Hour Digoxin Crossmatch 12/26/17 12/26/17 12/27/17 05:59 05:59 06:34 RBC 2.01 L 2.52 L Hgb 6.6 L 8.2 L Hct 18.6 L* 23.2 L MCV MCH 33 H MCHC 35 H 35 H RDW 16.6 H 15.3 H Plt Count 45 L 39 L Lymph % (Auto) 11.6 L [place] % (Auto) 10.3 H 11.2 H Lymph # 1.0 L 0.7 L [place] # Seg Neutrophils % 72.2 H 75.4 H Seg Neuts % (Manual) Lymphocytes % (Manual) Lymphocytes # (Manual) PT INR APTT Fibrinogen D-Dimer POC ABG pH POC ABG pCO2 POC ABG pO2 Sodium Potassium 3.3 L Chloride Carbon Dioxide BUN Creatinine 3.8 H Glucose 110 H POC Glucose Lactic Acid Calcium Phosphorus 2.40 L Magnesium 1.40 L TIBC Ferritin Total Bilirubin 7.10 H Direct Bilirubin AST 73 H Ammonia Lactate Dehydrogenase NT-Pro-B Natriuret Pep Total Protein Albumin 3.5 L Lipase Vitamin B12 Urine WBC (Auto) Urine Creatinine Ur Creatinine 24 Hour Digoxin Crossmatch 12/27/17 12/27/17 12/27/17 06:34 06:34 06:34 RBC Hgb Hct MCV MCH MCHC RDW Plt Count Lymph % (Auto) [place] % (Auto) Lymph # [place] # Seg Neutrophils % Seg Neuts % (Manual) Lymphocytes % (Manual) Lymphocytes # (Manual) PT INR APTT Fibrinogen D-Dimer POC ABG pH POC ABG pCO2 POC ABG pO2 Sodium Potassium 3.3 L Chloride 95.4 L Carbon Dioxide BUN Creatinine 2.6 H Glucose 112 H POC Glucose Lactic Acid Calcium 8.1 L Phosphorus Magnesium TIBC 77 L Ferritin > 2000.0 H Total Bilirubin 8.00 H Direct Bilirubin AST 89 H Ammonia Lactate Dehydrogenase 302 H NT-Pro-B Natriuret Pep Total Protein Albumin 3.7 L Lipase Vitamin B12 Urine WBC (Auto) Urine Creatinine Ur Creatinine 24 Hour Digoxin Crossmatch 12/28/17 12/28/17 12/29/17 06:24 09:00 00:30 RBC 2.25 L Hgb 7.5 L Hct 21.1 L MCV MCH 33 H MCHC 35 H RDW 16.2 H Plt Count 78 L D Lymph % (Auto) 12.5 L [place] % (Auto) 12.3 H Lymph # 0.9 L [place] # 0.9 H Seg Neutrophils % 73.3 H Seg Neuts % (Manual) Lymphocytes % (Manual) Lymphocytes # (Manual) PT 23.7 H INR 1.97 H APTT 53.1 H Fibrinogen D-Dimer POC ABG pH POC ABG pCO2 POC ABG pO2 Sodium Potassium Chloride Carbon Dioxide BUN Creatinine Glucose POC Glucose 148 H Lactic Acid Calcium Phosphorus Magnesium TIBC Ferritin Total Bilirubin Direct Bilirubin AST Ammonia Lactate Dehydrogenase NT-Pro-B Natriuret Pep Total Protein Albumin Lipase Vitamin B12 Urine WBC (Auto) Urine Creatinine Ur Creatinine 24 Hour Digoxin Crossmatch 12/29/17 12/29/17 12/29/17 00:34 03:59 03:59 RBC 2.19 L Hgb 7.2 L Hct 20.7 L MCV 95 H MCH 33 H MCHC 35 H RDW 16.9 H Plt Count 75 L Lymph % (Auto) [place] % (Auto) 10.8 H Lymph # [place] # Seg Neutrophils % 70.8 H Seg Neuts % (Manual) Lymphocytes % (Manual) Lymphocytes # (Manual) PT 25.7 H INR 2.18 H APTT Fibrinogen D-Dimer POC ABG pH POC ABG pCO2 POC ABG pO2 Sodium Potassium Chloride Carbon Dioxide BUN Creatinine 2.3 H Glucose 111 H POC Glucose Lactic Acid Calcium Phosphorus Magnesium TIBC Ferritin Total Bilirubin 8.20 H Direct Bilirubin AST 66 H Ammonia Lactate Dehydrogenase NT-Pro-B Natriuret Pep Total Protein Albumin 3.5 L Lipase Vitamin B12 Urine WBC (Auto) Urine Creatinine Ur Creatinine 24 Hour Digoxin Crossmatch 12/29/17 12/30/17 12/30/17 07:35 07:51 08:27 RBC 1.97 L Hgb 6.7 L Hct 18.8 L* MCV 96 H MCH 34 H MCHC 36 H RDW 17.6 H Plt Count 76 L Lymph % (Auto) [place] % (Auto) 10.5 H Lymph # 1.0 L [place] # Seg Neutrophils % 72.4 H Seg Neuts % (Manual) Lymphocytes % (Manual) Lymphocytes # (Manual) PT INR APTT Fibrinogen D-Dimer POC ABG pH POC ABG pCO2 POC ABG pO2 Sodium Potassium Chloride Carbon Dioxide BUN Creatinine Glucose POC Glucose 113 H Lactic Acid Calcium Phosphorus Magnesium 1.50 L TIBC Ferritin Total Bilirubin Direct Bilirubin AST Ammonia Lactate Dehydrogenase NT-Pro-B Natriuret Pep Total Protein Albumin Lipase Vitamin B12 Urine WBC (Auto) Urine Creatinine Ur Creatinine 24 Hour Digoxin Crossmatch 12/30/17 08:44 RBC Hgb Hct MCV MCH MCHC RDW Plt Count Lymph % (Auto) [place] % (Auto) Lymph # [place] # Seg Neutrophils % Seg Neuts % (Manual) Lymphocytes % (Manual) Lymphocytes # (Manual) PT INR APTT Fibrinogen D-Dimer POC ABG pH POC ABG pCO2 POC ABG pO2 Sodium Potassium Chloride Carbon Dioxide BUN Creatinine Glucose POC Glucose Lactic Acid Calcium Phosphorus Magnesium TIBC Ferritin Total Bilirubin Direct Bilirubin AST Ammonia Lactate Dehydrogenase NT-Pro-B Natriuret Pep Total Protein Albumin Lipase Vitamin B12 Urine WBC (Auto) Urine Creatinine Ur Creatinine 24 Hour Digoxin Crossmatch See Detail Allied health notes reviewed: nursing
[2017-12-30] MEDS ORDERED: MAGNESIUM SULFATE 2GM/50ML 2 GM/50 ML BAG IV ONE (15:46)
--- NOTE | 2017-12-31 08:17 | Progress Note ---
Assessment and Plan Assessment and plan: --Cirrhosis with esophageal varices. Ascites Ultrasound-guided paracentesis recommended by GI Received 2 units of FFP's today, possible paracentesis --Coagulopathy; secondary to cirrhosis liver Received vitamin K subcutaneous 1 dose, FFP's --Acute blood loss anemia. Patient Received 2 units of PRBC , total 11 units during this admission EGD negative for esophageal variceal bleeding, Hb today 8.3 --Severe thrombocytopenia; probably secondary to cirrhosis --NSVT, resolved ; continue Lopressor --Septic/hypovolemic shock. On midodrine, --Sepsis;cultures negative --Rectal bleeding; resolved GI following --Toxic metabolic/hepatic encephalopathy. Hyperammonemia on admission. Resolved --Acute on chronic kidney disease : ATN/sepsis/hypotension. On hemodialysis,Outpatient dialysis per case management --Hepatorenal syndrome; on HD, nephrology following --Bilateral pleural effusion right greater than left. Waiter/Wait[employer] recommends giving FFP and possible thoracentesis if needed Plan of care Discussed with patient and at bedside today Plan of care reviewed with the and his and his nurse Possible discharge in 1-2 days if stable [facility] management I talked to Dr. [facility] updated patient's clinical status. History Interval history: Patient seen and examined medical records reviewed No new events reported by nursing staff, Patient's hemoglobin is low, received 2 units of PRBC, total 11 units during this admission, Hb today 8.3 Scheduled for abdominal paracentesis, received 2 units of FFP's Patient looks chronically ill, cachectic Vital signs reviewed Hospitalist Physical - Constitutional Vitals: Temp Pulse Resp BP Pulse Ox 97.7 F 67 18 93/59 100 12/31/17 08:06 12/31/17 08:06 12/31/17 08:06 12/31/17 08:06 12/31/17 08:06 General appearance: Present: mild distress, cachectic, other (malnourished) - EENT Eyes: Present: PERRL, EOM intact - Neck Neck: Present: supple, normal ROM - Respiratory Respiratory effort: normal Respiratory: bilateral: diminished, rales, negative: rhonchi, wheezing - Cardiovascular Rhythm: regular Heart Sounds: Present: S1 & S2 - Extremities Extremities: no ischemia Extremity abnormal: edema - Abdominal General gastrointestinal: soft, non-tender, non-distended, normal bowel sounds - Integumentary Integumentary: Present: clear, warm - Psychiatric Psychiatric: appropriate mood/affect, cooperative - Neurologic Neurologic: CNII-XII intact, moves all extremities, other (legally blind) Results - Labs CBC & Chem 7: 12/31/17 12:59 12/31/17 12:59 Labs: Laboratory Last Values WBC 7.5 K/mm3 (4.5-11.0) 12/30/17 07:51 RBC 1.97 M/mm3 (3.65-5.03) L 12/30/17 07:51 Hgb 6.7 gm/dl (11.8-15.2) L 12/30/17 07:51 Hct 18.8 % (35.5-45.6) L* 12/30/17 07:51 MCV 96 fl (84-94) H 12/30/17 07:51 MCH 34 pg (28-32) H 12/30/17 07:51 MCHC 36 % (32-34) H 12/30/17 07:51 RDW 17.6 % (13.2-15.2) H 12/30/17 07:51 Plt Count 76 K/mm3 (140-440) L 12/30/17 07:51 Lymph % (Auto) 13.9 % (13.4-35.0) 12/30/17 07:51 [place] % (Auto) 10.5 % (0.0-7.3) H 12/30/17 07:51 Eos % (Auto) 1.9 % (0.0-4.3) 12/30/17 07:51 Baso % (Auto) 1.3 % (0.0-1.8) 12/30/17 07:51 Lymph # 1.0 K/mm3 (1.2-5.4) L 12/30/17 07:51 [place] # 0.8 K/mm3 (0.0-0.8) 12/30/17 07:51 Eos # 0.1 K/mm3 (0.0-0.4) 12/30/17 07:51 Baso # 0.1 K/mm3 (0.0-0.1) 12/30/17 07:51 Add Manual Diff Complete 12/12/17 19:50 Total Counted 100 12/12/17 19:50 Seg Neutrophils % 72.4 % (40.0-70.0) H 12/30/17 07:51 Seg Neuts % (Manual) 87.0 % (40.0-70.0) H 12/12/17 19:50 Band Neutrophils % 0 % 12/12/17 19:50 Lymphocytes % (Manual) 5.0 % (13.4-35.0) L 12/12/17 19:50 Reactive Lymphs % (Man) 0 % 12/12/17 19:50 Monocytes % (Manual) 6.0 % (0.0-7.3) 12/12/17 19:50 Eosinophils % (Manual) 2.0 % (0.0-4.3) 12/12/17 19:50 Basophils % (Manual) 0 % (0.0-1.8) 12/12/17 19:50 Metamyelocytes % 0 % 12/12/17 19:50 Myelocytes % 0 % 12/12/17 19:50 Promyelocytes % 0 % 12/12/17 19:50 Blast Cells % 0 % 12/12/17 19:50 Nucleated RBC % Not Reportable 12/12/17 19:50 Seg Neutrophils # 5.4 K/mm3 (1.8-7.7) 12/30/17 07:51 Seg Neutrophils # Man 4.9 K/mm3 (1.8-7.7) 12/12/17 19:50 Band Neutrophils # 0.0 K/mm3 12/12/17 19:50 Lymphocytes # (Manual) 0.3 K/mm3 (1.2-5.4) L 12/12/17 19:50 Abs React Lymphs (Man) 0.0 K/mm3 12/12/17 19:50 Monocytes # (Manual) 0.3 K/mm3 (0.0-0.8) 12/12/17 19:50 Eosinophils # (Manual) 0.1 K/mm3 (0.0-0.4) 12/12/17 19:50 Basophils # (Manual) 0.0 K/mm3 (0.0-0.1) 12/12/17 19:50 Metamyelocytes # 0.0 K/mm3 12/12/17 19:50 Myelocytes # 0.0 K/mm3 12/12/17 19:50 Promyelocytes # 0.0 K/mm3 12/12/17 19:50 Blast Cells # 0.0 K/mm3 12/12/17 19:50 WBC Morphology Not Reportable 12/12/17 19:50 Hypersegmented Neuts Not Reportable 12/12/17 19:50 Hyposegmented Neuts Not Reportable 12/12/17 19:50 Hypogranular Neuts Not Reportable 12/12/17 19:50 Smudge Cells Not Reportable 12/12/17 19:50 Toxic Granulation Not Reportable 12/12/17 19:50 Toxic Vacuolation Not Reportable 12/12/17 19:50 Dohle Bodies Not Reportable 12/12/17 19:50 Pelger-Huet Anomaly Not Reportable 12/12/17 19:50 Eriberto Rods Not Reportable 12/12/17 19:50 Platelet Estimate Appears decreased 12/12/17 19:50 Clumped Platelets Not Reportable 12/12/17 19:50 Plt Clumps, EDTA Not Reportable 12/12/17 19:50 Large Platelets 1+ 12/12/17 19:50 Giant Platelets Not Reportable 12/12/17 19:50 Platelet Satelliting Not Reportable 12/12/17 19:50 Plt Morphology Comment Not Reportable 12/12/17 19:50 RBC Morphology Not Reportable 12/12/17 19:50 Dimorphic RBCs Not Reportable 12/12/17 19:50 Polychromasia Not Reportable 12/12/17 19:50 Hypochromasia 1+ 12/12/17 19:50 Poikilocytosis Not Reportable 12/12/17 19:50 Anisocytosis Not Reportable 12/12/17 19:50 Microcytosis Not Reportable 12/12/17 19:50 Macrocytosis Not Reportable 12/12/17 19:50 Spherocytes Not Reportable 12/12/17 19:50 Pappenheimer Bodies Not Reportable 12/12/17 19:50 Sickle Cells Not Reportable 12/12/17 19:50 Target Cells Not Reportable 12/12/17 19:50 Tear Drop Cells Not Reportable 12/12/17 19:50 Ovalocytes Not Reportable 12/12/17 19:50 Helmet Cells Not Reportable 12/12/17 19:50 [place] Bodies Not Reportable 12/12/17 19:50 [place] Rings Not Reportable 12/12/17 19:50 [place] Cells 1+ 12/12/17 19:50 Bite Cells Not Reportable 12/12/17 19:50 Crenated Cell Not Reportable 12/12/17 19:50 Elliptocytes Not Reportable 12/12/17 19:50 Acanthocytes (Spur) 1+ 12/12/17 19:50 Rouleaux Not Reportable 12/12/17 19:50 Hemoglobin C Crystals Not Reportable 12/12/17 19:50 Schistocytes Not Reportable 12/12/17 19:50 Malaria parasites Not Reportable 12/12/17 19:50 ESR 18 mm/Hr (0-20) 12/12/17 19:50 [place] Bodies Not Reportable 12/12/17 19:50 Hem Pathologist Commnt No 12/12/17 19:50 PT 25.7 Sec. (12.2-14.9) H 12/29/17 00:34 INR 2.18 (0.87-1.13) H 12/29/17 00:34 APTT 53.1 Sec. (24.2-36.6) H 12/28/17 09:00 Fibrinogen 128 mg/dl (211-480) L 12/12/17 19:50 D-Dimer 1215.06 ng/mlDDU (0-234) H 12/12/17 19:50 Factor VIII:C Activity 178 % (50-180) 12/12/17 20:30 POC ABG pH 7.452 (7.35-7.45) H 12/12/17 09:13 POC ABG pCO2 22.2 (35-45) L 12/12/17 09:13 POC ABG pO2 75 (80-105) L 12/12/17 09:13 POC ABG HCO3 15.5 12/12/17 09:13 POC ABG Total CO2 16 12/12/17 09:13 POC ABG O2 Sat 96 12/12/17 09:13 POC ABG Base Excess -8 12/12/17 09:13 FiO2 21 % 12/12/17 09:13 Sodium 143 mmol/L (137-145) 12/29/17 03:59 Potassium 4.3 mmol/L (3.6-5.0) D 08/11/18 03:59 Chloride 104.2 mmol/L (98-107) 12/29/17 03:59 Carbon Dioxide 24 mmol/L (22-30) 12/29/17 03:59 Anion Gap 19 mmol/L 12/29/17 03:59 BUN 10 mg/dL (9-20) 12/29/17 03:59 Creatinine 2.3 mg/dL (0.8-1.5) H 12/29/17 03:59 Estimated GFR 35 ml/min 12/29/17 03:59 BUN/Creatinine Ratio 4 % 12/29/17 03:59 Glucose 111 mg/dL (75-100) H 12/29/17 03:59 POC Glucose 113 (70-105) H 12/29/17 07:35 Lactic Acid 3.90 mmol/L (0.7-2.0) H* 12/14/17 17:26 Calcium 8.7 mg/dL (8.4-10.2) 12/29/17 03:59 Phosphorus 2.40 mg/dL (2.5-4.5) L 12/26/17 05:59 Magnesium 1.50 mg/dL (1.7-2.3) L 12/30/17 08:27 Iron 78 ug/dL (49-181) 12/27/17 06:34 TIBC 77 mcg/dL (250-450) L 12/27/17 06:34 Ferritin > 2000.0 ng/mL (13.0-400.0) H 12/27/17 06:34 Total Bilirubin 8.20 mg/dL (0.1-1.2) H 12/29/17 03:59 Direct Bilirubin 1.6 mg/dL (0-0.2) H 12/12/17 19:50 Indirect Bilirubin 2.5 mg/dL 12/12/17 19:50 AST 66 units/L (5-40) H 12/29/17 03:59 ALT 26 units/L (7-56) 12/29/17 03:59 Alkaline Phosphatase 59 units/L (35-129) 12/29/17 03:59 Ammonia 53.0 umol/L (25-60) 12/18/17 13:10 Lactate Dehydrogenase 302 units/L (91-180) H 12/27/17 06:34 Total Creatine Kinase 64 units/L (55-170) 12/10/17 23:14 C-Reactive Protein 0.30 mg/dL (0.00-1.30) 12/13/17 14:03 NT-Pro-B Natriuret Pep 9558 pg/mL (0-900) H 12/10/17 23:14 Total Protein 6.7 g/dL (6.3-8.2) 12/29/17 03:59 Albumin 3.5 g/dL (3.9-5) L 12/29/17 03:59 Albumin/Globulin Ratio 1.1 % 12/29/17 03:59 Lipase 7 units/L (13-60) L 12/10/17 23:14 Vitamin B12 1465 pg/mL (211-911) H 12/12/17 19:50 Folate 14.04 ng/mL (7.3-26.0) 12/12/17 19:50 TSH 2.560 mlU/mL (0.270-4.200) 12/16/17 12:37 Total Cortisol 8.6 mcg/dL () 12/16/17 12:37 Urine Color Yellow (Yellow) 12/10/17 23:05 Urine Turbidity Clear (Clear) 12/10/17 23:05 Urine pH 5.0 (5.0-7.0) 12/10/17 23:05 Ur Specific [place] 1.013 (1.003-1.030) 12/10/17 23:05 Urine Protein <15 mg/dl mg/dL (Negative) 12/10/17 23:05 Urine Glucose (UA) Neg mg/dL (Negative) 12/10/17 23:05 Urine Ketones Neg mg/dL (Negative) 12/10/17 23:05 Urine Blood Neg (Negative) 12/10/17 23:05 Urine Nitrite Neg (Negative) 12/10/17 23:05 Ur Reducing Substances Not Reportable 12/10/17 23:05 Urine Bilirubin Neg (Negative) 12/10/17 23:05 Urine Ictotest Not Reportable 12/10/17 23:05 Urine Urobilinogen < 2.0 mg/dL (<2.0) 12/10/17 23:05 Ur Leukocyte Esterase Sm (Negative) 12/10/17 23:05 Urine WBC (Auto) 10.0 /HPF (0.0-6.0) H 12/10/17 23:05 Urine RBC (Auto) 4.0 /HPF (0.0-6.0) 12/10/17 23:05 U Epithel Cells (Auto) < 1.0 /HPF (0-13.0) 12/10/17 23:05 Urine Mucus Few /HPF 12/10/17 23:05 Urine Total Volume 250 12/14/17 Unknown Urine Creatinine 122.5 mg/dL (0.1-20.0) H 12/14/17 Unknown Ur Creatinine 24 Hour 0.3 (0.8-2.8) L 12/14/17 Unknown Digoxin 0.4 ng/mL (0.9-2.0) L 12/21/17 05:26 Hepatitis A IgM Ab Non-reactive (NonReactive) 12/12/17 19:50 Hep Bs Antigen Non-reactive (Negative) 12/12/17 19:50 Hep B Core IgM Ab Non-reactive (NonReactive) 12/12/17 19:50 Hepatitis C Antibody Non-reactive (NonReactive) 12/12/17 19:50 Miscellaneous Test Flexitest 1 12/12/17 06:42 Blood Type A NEGATIVE 12/30/17 08:44 Antibody Screen Negative 12/30/17 08:44 Direct Antiglob Test Negative 12/12/17 20:41 JOANNE, Poly Interpret Negative 12/12/17 20:41 Crossmatch See Detail 12/30/17 08:44
[2017-12-31] MEDS ORDERED: NACL 0.9% 500 ML 500 ML ONE (08:21)
--- NOTE | 2017-12-31 09:27 | Progress Note ---
Assessment and Plan Anemia s/p transfusion of PRBCs Thromocytopenia, chronic Chronic renal failure initiated on dialysis Hypotension -on midodrine therapy Hx of Cirrhosis with bleeding esophageal varices requiring TIPS 11/2016 Paroxysmal Atrial flutter seen on telemetry currently in sinus rhythm; on beta blockers for suppression normal TSH patient is considered not a candidate for anticoagulation given underlying liver cirrhosis. Left pleural effusion Echocardiogram shows mild cardiomyopathy with left ventricular ejection fraction 45-50%. There is mild to moderate tricuspid regurgitation, pulmonary artery pressure is 31, and there is a left pleural effusion. Conservative cardiac management. Subjective Date of service: 12/31/17 Principal diagnosis: anemia, cirrhosis Interval history: Patient has no complaints. Objective Vital Signs Temp Pulse Resp BP BP Pulse Ox 12/31/17 08:57 98.3 F 67 18 90/59 94 12/31/17 08:42 97.7 F 67 19 91/58 96 12/31/17 08:19 100 12/31/17 08:07 98.6 F 67 18 90/56 100 12/31/17 08:06 97.7 F 67 18 93/59 100 12/31/17 07:42 98.6 F 67 19 96/57 93 12/31/17 07:12 98.2 F 65 18 94/60 100 12/31/17 06:42 97.9 F 64 20 90/54 100 12/31/17 06:12 98.0 F 62 20 90/56 100 12/31/17 05:42 98.4 F 64 18 87/52 97 12/31/17 05:12 97.8 F 67 20 82/54 98 12/31/17 04:57 97.9 F 64 18 90/54 100 12/31/17 02:45 98.0 F 67 18 83/50 12/31/17 01:50 98.0 F 67 18 83/50 100 12/31/17 01:25 98.3 F 96 H 22 92/54 99 12/31/17 01:20 98.0 F 66 18 86/50 12/31/17 00:50 97.9 F 68 20 84/50 98 12/31/17 00:43 98.0 F 68 18 90/53 99 12/31/17 00:35 98.0 F 68 18 89/53 98 12/30/17 20:52 20 12/30/17 20:45 98.5 F 72 22 84/51 100 12/30/17 19:55 98.5 F 71 22 84/51 100 12/30/17 17:24 78 92/52 12/30/17 17:00 98.8 F 72 20 80/55 94 12/30/17 16:25 20 80/51 12/30/17 11:52 74 20 84/51 96 12/30/17 10:00 69 12/30/17 09:32 90/52 - Physical Examination General: No Apparent Distress HEENT: Positive: PERRL Cardiac: Positive: Reg Rate and Rhythm Neuro: Positive: Weakness Extremities: Absent: edema - Allied health notes Allied health notes reviewed: nursing
--- NOTE | 2017-12-31 09:29 | Progress Note ---
Subjective Principal diagnosis: anemia, cirrhosis Interval history: Patient was seen today for follow-up on multiple renal related issues No complaints of any chest pain pressure or shortness of breath or any voiding problems is at the bedside Events of this hospitalization noted Interdisciplinary notes were also reviewed Past medical history: Reviewed Family history: Reviewed Social history: Reviewed Vitals: Reviewed HEENT: Oral mucosa dry Neck: Supple no thyromegaly no JVD Chest: Clear to auscultation anteriorly no crackles or wheezes Central venous catheter site unremarkable Heart: Regular rate and rhythm S1-S2 heard no S3-S4 Abdomen: Soft nontender dry skin and no organomegaly Extremity: Less than 1+ edema dry skin no petechial rash Musculoskeletal: No joint effusion noted Assessment and plan: Acute kidney injury likely due to acute tubular necrosis, patient has been initiated on renal replacement therapy, which will be done as tolerated Anemia in renal failure continue to monitor, it also appears to be multi- factorial, current hemoglobin declined to 6.7 platelet count 76,000 stable Status post permacath placement 12/17/2017 Admitted with GI bleed severe anemia rectal bleeding/Had a long discussion with patient as well as his at the bedside patient has been off alcohol for nearly a year they're hoping for liver transplant and are currently being followed by GI service History of underlying cirrhosis with esophageal basis/hyperbilirubinemia Outpatient dialysis at [facility] Patient has been diagnosed with end-stage liver disease with ascites portal hypertension and gastropathy with esophageal varices Ascites has been recommended paracentesis History of alcoholic cirrhosis of liver with ascites Prognosis guarded to poor Mortality risk remains high due to multi-organ problems Hemodialysis as tolerated, patient is high risk Anasarca-like picture due to malnutrition hypoalbuminemia renal failure and hepatic failure Counseled and educated regarding all renal related issues All related issues were discussed with at the bedside Renal prognosis remains guarded at this time does exhibit good understanding of all the renal related issues We'll continue to follow and make recommendations from renal standpoint For any questions feel free to contact me at [phone] Objective - Vital Signs Vital signs: Vital Signs - 12hr 12/31/17 12/31/17 12/31/17 00:35 00:43 00:50 Temperature 98.0 F 98.0 F 97.9 F Pulse Rate 68 68 68 Respiratory 18 18 20 Rate Blood Pressure 89/53 90/53 84/50 Blood Pressure [Left] O2 Sat by Pulse 98 99 98 Oximetry 12/31/17 12/31/17 12/31/17 01:20 01:25 01:50 Temperature 98.0 F 98.3 F 98.0 F Pulse Rate 66 96 H 67 Respiratory 18 22 18 Rate Blood Pressure 86/50 83/50 Blood Pressure 92/54 [Left] O2 Sat by Pulse 99 100 Oximetry 12/31/17 12/31/17 12/31/17 02:45 04:57 05:12 Temperature 98.0 F 97.9 F 97.8 F Pulse Rate 67 64 67 Respiratory 18 18 20 Rate Blood Pressure 83/50 90/54 82/54 Blood Pressure [Left] O2 Sat by Pulse 100 98 Oximetry 12/31/17 12/31/17 12/31/17 05:42 06:12 06:42 Temperature 98.4 F 98.0 F 97.9 F Pulse Rate 64 62 64 Respiratory 18 20 20 Rate Blood Pressure 87/52 90/56 90/54 Blood Pressure [Left] O2 Sat by Pulse 97 100 100 Oximetry 12/31/17 12/31/17 12/31/17 07:12 07:42 08:06 Temperature 98.2 F 98.6 F 97.7 F Pulse Rate 65 67 67 Respiratory 18 19 18 Rate Blood Pressure 94/60 96/57 93/59 Blood Pressure [Left] O2 Sat by Pulse 100 93 100 Oximetry 12/31/17 12/31/17 12/31/17 08:07 08:19 08:42 Temperature 98.6 F 97.7 F Pulse Rate 67 67 Respiratory 18 19 Rate Blood Pressure 90/56 91/58 Blood Pressure [Left] O2 Sat by Pulse 100 100 96 Oximetry 12/31/17 08:57 Temperature 98.3 F Pulse Rate 67 Respiratory 18 Rate Blood Pressure 90/59 Blood Pressure [Left] O2 Sat by Pulse 94 Oximetry - Lab 12/31/17 12:59 12/31/17 12:59 Most recent lab results Calcium 8.7 mg/dL (8.4-10.2) 12/29/17 03:59 Phosphorus 2.40 mg/dL (2.5-4.5) L 12/26/17 05:59 Magnesium 1.50 mg/dL (1.7-2.3) L 08/12/18 08:27 Urine Creatinine 122.5 mg/dL (0.1-20.0) H 12/14/17 Unknown
[2017-12-31] MEDS: PROAMATINE PO SCH ×3 (10:14→23:53)
[2017-12-31] MEDS: TYLENOL PO PRN ×2 (10:14→14:14)
--- NOTE | 2017-12-31 10:20 | Progress Note ---
Assessment and Plan - Patient Problems (1) Acute hepatic encephalopathy Current Visit: Yes Status: Acute Plan to address problem: see orders. continue with lactulose, recheck ammonia level. continue same. supportive. (2) Anemia Current Visit: Yes Status: Acute Plan to address problem: see orders. Replacement transfusion, if hgb less than 7.0 same as above. see notes above. same as above, stable. see notes above. (3) Renal failure Current Visit: Yes Status: Acute Plan to address problem: follow renal service. same as above. (4) Liver failure Current Visit: Yes Status: Acute Plan to address problem: Hepato-renal syndrome, continue with HD. Subjective Date of service: 12/31/17 Principal diagnosis: anemia, cirrhosis Interval history: Patient seen, restingm labs/notes reviewed. agree with management so far.labs showing consumptive coagulopathy. Patient seen, resting in bed, records/labs reviewed.PLT dropped some.Still no active bleeding. Patient seen/examined, records/labs / notes reviewed, hgb low at 6.9, will rec replacement transfusion,with HD tomorrow if planned to proceed with HD. Patient seen, resting in bed, labs/records reviewed, Hgb still low, transfusion written for today. Patient seen, resting in bed, labs reviewed, plt 57,000, rectal bleeding resolved, will continue to monitor patient/labs with you, and intervene with replacement transfusion, when needed. Patient seen, resting in bed, NAD, records reviewed. Patient seen, resting in bed, labs/records reviewed, no new issues, the latest plt fair, no any sign of bleeding. Patient seen, resting in bed, records reviewed, PLT 57,000, no bleeding. Patient seen, resting in bed, labs reviewed, hgb dropped drastically, due to rectal bleed.He is s/p blood transfusion. he is expected to continue to drop his hgb, as long as he continues to bleed. Will re check labs in am. Thrombocytopenia at above 20,000. will continue to monitor. Patient seen, resting in bed, labs reviewed, ,he will need some PLT+ FFP, especially if there is any plans for any procedure, otherwise, can watch if any active bleeding, or plt 20,000 or less. patient seen/examined, resting in bed, labs reviewed, s/p GI scope, and blood transfusion, Plt replacement ,to follow. patient seen, resting in bed, labs, reviewed, plt 39,000, replacement not given yesterday? Patient seen/examined, at the HD center, resting in bed, was able ro discuss his case with him, regarding prognosis, and options, as i had d/w his yesterday. he wants to talk with his first.. his PLT came up following transfusion, hgb at Fair level at this time,Will see how much this will hold in the next few days.He is really not a good candidate for any transplant ,given, his condition, and co morbid issues at this time. Prognosis is quite poor for Hepato-renal syndrome, let alone complicated by thrombocytopenia/anemia, and double vital organ failure.He has no real reserve as far as these organs are concerned.You may want to have a vince family talk with him, his , and doctors Patient resting in bed, labs reviewed, and fairly stable, slight drop in hgb, and plt, but overall stable in the last 24hrs.notes reviewed. Patient seen/resting in bed, labs reviewed, d/w primary team. Hgb dropped, but plt holding steady since replacement. Patient resting in bed, labs reviewed, rec stays the same.Replacement transfusion prn. i have spoken to patient/, and sister at [facility]. Objective - Constitutional Vitals: Vital Signs - 12hr 12/31/17 12/31/17 12/31/17 00:35 00:43 00:50 Temperature 98.0 F 98.0 F 97.9 F Pulse Rate 68 68 68 Respiratory 18 18 20 Rate Blood Pressure 89/53 90/53 84/50 Blood Pressure [Left] O2 Sat by Pulse 98 99 98 Oximetry 12/31/17 12/31/17 12/31/17 01:20 01:25 01:50 Temperature 98.0 F 98.3 F 98.0 F Pulse Rate 66 96 H 67 Respiratory 18 22 18 Rate Blood Pressure 86/50 83/50 Blood Pressure 92/54 [Left] O2 Sat by Pulse 99 100 Oximetry 12/31/17 12/31/17 12/31/17 02:45 04:57 05:12 Temperature 98.0 F 97.9 F 97.8 F Pulse Rate 67 64 67 Respiratory 18 18 20 Rate Blood Pressure 83/50 90/54 82/54 Blood Pressure [Left] O2 Sat by Pulse 100 98 Oximetry 12/31/17 12/31/17 12/31/17 05:42 06:12 06:42 Temperature 98.4 F 98.0 F 97.9 F Pulse Rate 64 62 64 Respiratory 18 20 20 Rate Blood Pressure 87/52 90/56 90/54 Blood Pressure [Left] O2 Sat by Pulse 97 100 100 Oximetry 12/31/17 12/31/17 12/31/17 07:12 07:42 08:06 Temperature 98.2 F 98.6 F 97.7 F Pulse Rate 65 67 67 Respiratory 18 19 18 Rate Blood Pressure 94/60 96/57 93/59 Blood Pressure [Left] O2 Sat by Pulse 100 93 100 Oximetry 12/31/17 12/31/17 12/31/17 08:07 08:19 08:42 Temperature 98.6 F 97.7 F Pulse Rate 67 67 Respiratory 18 19 Rate Blood Pressure 90/56 91/58 Blood Pressure [Left] O2 Sat by Pulse 100 100 96 Oximetry 12/31/17 12/31/17 12/31/17 08:57 09:27 09:45 Temperature 98.3 F 97.8 F 98.0 F Pulse Rate 67 67 67 Respiratory 18 18 18 Rate Blood Pressure 90/59 94/63 96/63 Blood Pressure [Left] O2 Sat by Pulse 94 96 100 Oximetry 12/31/17 12/31/17 10:06 10:14 Temperature 98.4 F Pulse Rate 71 Respiratory 19 19 Rate Blood Pressure 97/63 Blood Pressure [Left] O2 Sat by Pulse 99 Oximetry General appearance: Present: mild distress - EENT Eyes: PERRL, EOM intact ENT: hearing intact, clear oral mucosa Ears: bilateral: normal - Neck Neck: supple, normal ROM - Respiratory Respiratory effort: normal Respiratory: bilateral: CTA - Breasts Breasts: deferred - Cardiovascular Rhythm: regular Heart Sounds: Present: S1 & S2. Absent: gallop, rub Extremities: pulses intact, No edema, normal color, Full ROM - Gastrointestinal General gastrointestinal: Present: soft, non-tender, non-distended, normal bowel sounds Rectal Exam: deferred - Genitourinary Male genitourinary: deferred - Integumentary Integumentary: clear, warm, dry - Musculoskeletal Musculoskeletal: 1, strength equal bilaterally - Neurologic Neurologic: moves all extremities - Psychiatric Psychiatric: memory intact, appropriate mood/affect, intact judgment & insight - Labs CBC & Chem 7: 12/30/17 07:51 12/29/17 03:59 Labs: Abnormal lab results 12/24/17 12/30/17 Range/Units 06:25 08:44 Crossmatch See Detail See Detail
[2017-12-31] MEDS: XIFAXAN PO SCH ×2 (10:57→23:53)
[2017-12-31] MEDS: LOPRESSOR PO SCH ×2 (10:57→23:18)
[2017-12-31] MEDS: CEPHULAC PO SCH ×2 (10:57→23:53)
[2017-12-31] MEDS: PROTONIX FEEDTUBE SCH (10:57)
[2017-12-31] MEDS: THERAGRAN-M Tab PO SCH (10:57)
[2017-12-31 13:51] LABS: INR 1.57 (0.87-1.13)
[2017-12-31 13:54] LABS: Albumin 3.9 g/dL (3.9-5); Calcium 9.3 mg/dL (8.4-10.2)
[2017-12-31 13:55] LABS: Basophils # (Auto) 0.1 K/mm3 (0.0-0.1); Basophils % (Auto) 1.9 % (0.0-1.8); Eosinophils # (Auto) 0.1 K/mm3 (0.0-0.4); Eosinophils % (Auto) 1.9 % (0.0-4.3); Hemoglobin 8.3 gm/dl (11.8-15.2); Lymphocytes # (Auto) 1.1 K/mm3 (1.2-5.4); Lymphocytes % (Auto) 16.1 % (13.4-35.0); Mean Corpuscular HGB Conc 36 % (32-34); Mean Corpuscular Hemoglobin 33 pg (28-32); Mean Corpuscular Volume 93 fl (84-94); Monocytes # (Auto) 0.9 K/mm3 (0.0-0.8); Red Blood Count 2.49 M/mm3 (3.65-5.03); Red Cell Distribution Width 17.5 % (13.2-15.2)
[2017-12-31 14:00] LABS: Platelet Count 69 K/mm3 (140-440)
[2018-01-01 05:58] LABS: Basophils # (Auto) 0.1 K/mm3 (0.0-0.1); Basophils % (Auto) 1.7 % (0.0-1.8); Eosinophils # (Auto) 0.1 K/mm3 (0.0-0.4); Hematocrit 25.1 % (35.5-45.6); Hemoglobin 9.1 gm/dl (11.8-15.2); Lymphocytes # (Auto) 0.9 K/mm3 (1.2-5.4); Lymphocytes % (Auto) 12.5 % (13.4-35.0); Mean Corpuscular HGB Conc 36 % (32-34); Mean Corpuscular Hemoglobin 34 pg (28-32); Mean Corpuscular Volume 93 fl (84-94); Monocytes # (Auto) 1.1 K/mm3 (0.0-0.8); Monocytes % (Auto) 14.4 % (0.0-7.3); Platelet Count 64 K/mm3 (140-440); Red Blood Count 2.69 M/mm3 (3.65-5.03); Red Cell Distribution Width 17.5 % (13.2-15.2)
[2018-01-01 06:06] LABS: INR 1.81 (0.87-1.13)
[2018-01-01 06:22] LABS: Albumin 3.8 g/dL (3.9-5)
[2018-01-01] MEDS: PROAMATINE PO SCH ×3 (08:43→22:37)
--- NOTE | 2018-01-01 09:12 | Progress Note ---
Assessment and Plan Anemia s/p transfusion of PRBCs Thromocytopenia, chronic Chronic renal failure initiated on dialysis Hypotension -on midodrine therapy Hx of Cirrhosis with bleeding esophageal varices requiring TIPS 11/2016 Paroxysmal Atrial flutter seen on telemetry currently in sinus rhythm; on beta blockers for suppression normal TSH patient is considered not a candidate for anticoagulation given underlying liver cirrhosis. Left pleural effusion Echocardiogram shows mild cardiomyopathy with left ventricular ejection fraction 45-50%. There is mild to moderate tricuspid regurgitation, pulmonary artery pressure is 31, and there is a left pleural effusion. Conservative cardiac management. Subjective Date of service: 01/01/18 Principal diagnosis: anemia, cirrhosis Interval history: Patient has no cardiac complaints. Objective Vital Signs Temp Pulse Resp BP BP Pulse Ox 01/01/18 05:58 97.4 F L 65 18 90/58 95 01/01/18 00:50 97.6 F 75 18 89/51 94 12/31/17 22:20 97.6 F 65 18 91/61 98 12/31/17 21:52 98.2 F 51 L 18 87/52 12/31/17 21:30 63 79/57 12/31/17 21:15 62 82/58 12/31/17 21:00 65 79/53 12/31/17 20:45 63 83/53 12/31/17 20:30 63 78/56 12/31/17 20:15 67 77/56 12/31/17 20:00 63 79/59 12/31/17 19:45 64 82/55 12/31/17 19:30 65 89/62 12/31/17 19:15 68 94/62 12/31/17 19:00 64 92/64 12/31/17 18:50 68 93/64 12/31/17 18:45 97.8 F 66 18 101/60 12/31/17 14:14 21 12/31/17 13:00 98.4 F 67 20 93/60 92 12/31/17 10:51 97.5 F L 68 18 94/58 100 12/31/17 10:21 98.2 F 66 18 91/58 100 12/31/17 10:14 19 12/31/17 10:06 98.4 F 71 19 97/63 99 12/31/17 10:00 66 19 12/31/17 09:45 98.0 F 67 18 96/63 100 12/31/17 09:27 97.8 F 94 96 - Physical Examination General: No Apparent Distress HEENT: Positive: PERRL Cardiac: Positive: Reg Rate and Rhythm Neuro: Positive: Weakness Extremities: Absent: edema - Labs and Meds Cardiac Enzymes 12/31/17 01/01/18 Range/Units 12:59 05:27 AST 46 H 49 H (5-40) units/L Coagulation 12/31/17 01/01/18 Range/Units 12:59 05:27 PT 19.7 H 22.1 H (12.2-14.9) Sec. INR 1.57 H 1.81 H (0.87-1.13) CBC 12/31/17 01/01/18 Range/Units 12:59 05:27 WBC 7.0 7.5 (4.5-11.0) K/mm3 RBC 2.49 L 2.69 L (3.65-5.03) M/mm3 Hgb 8.3 L 9.1 L (11.8-15.2) gm/dl Hct 23.0 L 25.1 L (35.5-45.6) % Plt Count 69 L 64 L (140-440) K/mm3 Lymph # 1.1 L 0.9 L (1.2-5.4) K/mm3 [place] # 0.9 H 1.1 H (0.0-0.8) K/mm3 Eos # 0.1 0.1 (0.0-0.4) K/mm3 Baso # 0.1 0.1 (0.0-0.1) K/mm3 Comprehensive Metabolic Panel 12/31/17 01/01/18 Range/Units 12:59 05:27 Sodium 142 141 (137-145) mmol/L Potassium 3.7 3.9 (3.6-5.0) mmol/L Chloride 99.9 99.3 (98-107) mmol/L Carbon Dioxide 23 25 (22-30) mmol/L BUN 21 H 16 (9-20) mg/dL Creatinine 3.8 H D 2.8 H (0.8-1.5) mg/dL Glucose 114 H 98 (75-100) mg/dL Calcium 9.3 9.0 (8.4-10.2) mg/dL AST 46 H 49 H (5-40) units/L ALT 24 23 (7-56) units/L Alkaline Phosphatase 74 72 (35-129) units/L Total Protein 7.0 7.3 (6.3-8.2) g/dL Albumin 3.9 3.8 L (3.9-5) g/dL - Allied health notes Allied health notes reviewed: nursing
--- NOTE | 2018-01-01 09:46 | Progress Note ---
Subjective Principal diagnosis: anemia, cirrhosis Interval history: Patient was seen today for follow-up on multiple renal related issues Tolerating dialysis treatment well so far Reviewed vitals reviewed Labs reviewed at bedside HEENT: Oral mucosa dry Neck: Supple no thyromegaly no JVD Chest: Clear to auscultation anteriorly no crackles or wheezes Central venous catheter site unremarkable Heart: Regular rate and rhythm S1-S2 heard no S3-S4 Abdomen: Soft nontender dry skin and no organomegaly Extremity: Less than 1+ edema dry skin no petechial rash Musculoskeletal: No joint effusion noted Assessment and plan: Anemia due to renal failure: Also multifactorial currently on erythropoietin 20, 000 unit with hemodialysis Ascites cirrhosis portal hypertension encephalopathy: GI following: Suggest avoiding Tylenol altogether with history of cirrhosis Hypotension currently on midodrine 10 mg 3 times a day Continue with renal replacement therapy for now as tolerated Patient's prognosis is very poor family is aware mortality risk is also very high, As of today hemoglobin is 9.1 better platelet count has declined to 64,000 INR is 1.81 potassium 3.9 total bilirubin 9.2 elevated Abdominal ultrasound obtained November 2017 right kidney normal echo texture left kidney normal echotexture, patient does have stones in the left kidney without obstruction with moderate amount of ascites noted, Given that patient is malnourished has multiorgan problem he will be high risk for bacteremia from line infection sepsis family is aware current ejection fraction in the range of 45-50% Permacath placed 12/17/2017 Outpatient dialysis at [facility] Renal care plan has been well explained to the patient's family and they are aware of the prognosis We'll continue to follow and make recommendations from renal standpoint For any questions feel free to contact me at [phone] Objective - Vital Signs Vital signs: Vital Signs - 12hr 12/31/17 12/31/17 01/01/18 21:52 22:20 00:50 Temperature 98.2 F 97.6 F 97.6 F Pulse Rate 51 L 65 75 Respiratory 18 18 18 Rate Blood Pressure 87/52 Blood Pressure 91/61 89/51 [Left] O2 Sat by Pulse 98 94 Oximetry 01/01/18 01/01/18 05:58 09:43 Temperature 97.4 F L Pulse Rate 65 Respiratory 18 Rate Blood Pressure Blood Pressure 90/58 [Left] O2 Sat by Pulse 95 98 Oximetry - Lab 01/01/18 05:27 01/01/18 05:27 Most recent lab results Calcium 9.0 mg/dL (8.4-10.2) 01/01/18 05:27 Phosphorus 2.40 mg/dL (2.5-4.5) L 12/26/17 05:59 Magnesium 2.00 mg/dL (1.7-2.3) 12/31/17 12:59 Urine Creatinine 122.5 mg/dL (0.1-20.0) H 12/14/17 Unknown
--- NOTE | 2018-01-01 10:00 | Progress Note ---
Assessment and Plan - Patient Problems (1) Acute hepatic encephalopathy Current Visit: Yes Status: Acute Plan to address problem: see orders. continue with lactulose, recheck ammonia level. continue same. supportive. (2) Anemia Current Visit: Yes Status: Acute Plan to address problem: see orders. Replacement transfusion, if hgb less than 7.0 same as above. see notes above. same as above, stable. see notes above. (3) Renal failure Current Visit: Yes Status: Acute Plan to address problem: follow renal service. same as above. (4) Liver failure Current Visit: Yes Status: Acute Plan to address problem: Hepato-renal syndrome, continue with HD. Subjective Date of service: 01/01/18 Principal diagnosis: anemia, cirrhosis Interval history: Patient seen, restingm labs/notes reviewed. agree with management so far.labs showing consumptive coagulopathy. Patient seen, resting in bed, records/labs reviewed.PLT dropped some.Still no active bleeding. Patient seen/examined, records/labs / notes reviewed, hgb low at 6.9, will rec replacement transfusion,with HD tomorrow if planned to proceed with HD. Patient seen, resting in bed, labs/records reviewed, Hgb still low, transfusion written for today. Patient seen, resting in bed, labs reviewed, plt 57,000, rectal bleeding resolved, will continue to monitor patient/labs with you, and intervene with replacement transfusion, when needed. Patient seen, resting in bed, NAD, records reviewed. Patient seen, resting in bed, labs/records reviewed, no new issues, the latest plt fair, no any sign of bleeding. Patient seen, resting in bed, records reviewed, PLT 57,000, no bleeding. Patient seen, resting in bed, labs reviewed, hgb dropped drastically, due to rectal bleed.He is s/p blood transfusion. he is expected to continue to drop his hgb, as long as he continues to bleed. Will re check labs in am. Thrombocytopenia at above 20,000. will continue to monitor. Patient seen, resting in bed, labs reviewed, ,he will need some PLT+ FFP, especially if there is any plans for any procedure, otherwise, can watch if any active bleeding, or plt 20,000 or less. patient seen/examined, resting in bed, labs reviewed, s/p GI scope, and blood transfusion, Plt replacement ,to follow. patient seen, resting in bed, labs, reviewed, plt 39,000, replacement not given yesterday? Patient seen/examined, at the HD center, resting in bed, was able ro discuss his case with him, regarding prognosis, and options, as i had d/w his yesterday. he wants to talk with his first.. his PLT came up following transfusion, hgb at Fair level at this time,Will see how much this will hold in the next few days.He is really not a good candidate for any transplant ,given, his condition, and co morbid issues at this time. Prognosis is quite poor for Hepato-renal syndrome, let alone complicated by thrombocytopenia/anemia, and double vital organ failure.He has no real reserve as far as these organs are concerned.You may want to have a vince family talk with him, his , and doctors Patient resting in bed, labs reviewed, and fairly stable, slight drop in hgb, and plt, but overall stable in the last 24hrs.notes reviewed. Patient seen/resting in bed, labs reviewed, d/w primary team. Hgb dropped, but plt holding steady since replacement. Patient resting in bed, labs reviewed, rec stays the same.Replacement transfusion prn. i have spoken to patient/, and sister at [facility]. Patient seen/examined, resting in bed, c/o not eating much due to lack of appetite.Rec appetite enhancer. Objective - Constitutional Vitals: Vital Signs - 12hr 12/31/17 01/01/18 01/01/18 22:20 00:50 05:58 Temperature 97.6 F 97.6 F 97.4 F L Pulse Rate 65 75 65 Respiratory 18 18 18 Rate Blood Pressure 91/61 89/51 90/58 [Left] O2 Sat by Pulse 98 94 95 Oximetry 01/01/18 09:43 Temperature Pulse Rate Respiratory Rate Blood Pressure [Left] O2 Sat by Pulse 98 Oximetry General appearance: Present: mild distress - EENT Eyes: PERRL, EOM intact ENT: hearing intact, clear oral mucosa Ears: bilateral: normal - Neck Neck: supple, normal ROM - Respiratory Respiratory effort: normal Respiratory: bilateral: CTA - Breasts Breasts: deferred - Cardiovascular Rhythm: regular Heart Sounds: Present: S1 & S2. Absent: gallop, rub Extremities: pulses intact, No edema, normal color, Full ROM - Gastrointestinal General gastrointestinal: Present: soft, non-tender, non-distended, normal bowel sounds - Genitourinary Male genitourinary: deferred - Integumentary Integumentary: clear, warm, dry - Musculoskeletal Musculoskeletal: 1, strength equal bilaterally - Neurologic Neurologic: moves all extremities - Psychiatric Psychiatric: memory intact, appropriate mood/affect, intact judgment & insight - Labs CBC & Chem 7: 01/01/18 05:27 01/01/18 05:27 Labs: Abnormal lab results 12/30/17 12/31/17 12/31/17 Range/Units 08:44 12:59 12:59 RBC 2.49 L (3.65-5.03) M/mm3 Hgb 8.3 L (11.8-15.2) gm/dl Hct 23.0 L (35.5-45.6) % MCH 33 H (28-32) pg MCHC 36 H (32-34) % RDW 17.5 H (13.2-15.2) % Plt Count 69 L (140-440) K/mm3 Lymph % (Auto) (13.4-35.0) % [place] % (Auto) 13.0 H (0.0-7.3) % Baso % (Auto) 1.9 H (0.0-1.8) % Lymph # 1.1 L (1.2-5.4) K/mm3 [place] # 0.9 H (0.0-0.8) K/mm3 Seg Neutrophils % (40.0-70.0) % PT (12.2-14.9) Sec. INR (0.87-1.13) BUN 21 H (9-20) mg/dL Creatinine 3.8 H D (0.8-1.5) mg/dL Glucose 114 H (75-100) mg/dL Total Bilirubin 8.30 H (0.1-1.2) mg/dL AST 46 H (5-40) units/L Albumin (3.9-5) g/dL Crossmatch See Detail 12/31/17 01/01/18 01/01/18 Range/Units 12:59 05:27 05:27 RBC 2.69 L (3.65-5.03) M/mm3 Hgb 9.1 L (11.8-15.2) gm/dl Hct 25.1 L (35.5-45.6) % MCH 34 H (28-32) pg MCHC 36 H (32-34) % RDW 17.5 H (13.2-15.2) % Plt Count 64 L (140-440) K/mm3 Lymph % (Auto) 12.5 L (13.4-35.0) % [place] % (Auto) 14.4 H (0.0-7.3) % Baso % (Auto) (0.0-1.8) % Lymph # 0.9 L (1.2-5.4) K/mm3 [place] # 1.1 H (0.0-0.8) K/mm3 Seg Neutrophils % 70.4 H (40.0-70.0) % PT 19.7 H 22.1 H (12.2-14.9) Sec. INR 1.57 H 1.81 H (0.87-1.13) BUN (9-20) mg/dL Creatinine (0.8-1.5) mg/dL Glucose (75-100) mg/dL Total Bilirubin (0.1-1.2) mg/dL AST (5-40) units/L Albumin (3.9-5) g/dL Crossmatch 01/01/18 Range/Units 05:27 RBC (3.65-5.03) M/mm3 Hgb (11.8-15.2) gm/dl Hct (35.5-45.6) % MCH (28-32) pg MCHC (32-34) % RDW (13.2-15.2) % Plt Count (140-440) K/mm3 Lymph % (Auto) (13.4-35.0) % [place] % (Auto) (0.0-7.3) % Baso % (Auto) (0.0-1.8) % Lymph # (1.2-5.4) K/mm3 [place] # (0.0-0.8) K/mm3 Seg Neutrophils % (40.0-70.0) % PT (12.2-14.9) Sec. INR (0.87-1.13) BUN (9-20) mg/dL Creatinine 2.8 H (0.8-1.5) mg/dL Glucose (75-100) mg/dL Total Bilirubin 9.20 H (0.1-1.2) mg/dL AST 49 H (5-40) units/L Albumin 3.8 L (3.9-5) g/dL Crossmatch
[2018-01-01] MEDS: CEPHULAC PO SCH ×2 (10:32→22:37)
[2018-01-01] MEDS: XIFAXAN PO SCH ×2 (10:32→22:37)
[2018-01-01] MEDS: PROTONIX FEEDTUBE SCH (10:32)
[2018-01-01] MEDS: THERAGRAN-M Tab PO SCH (10:32)
[2018-01-01] MEDS: LOPRESSOR PO SCH ×2 (10:33→22:38)
[2018-01-01] MEDS ORDERED: XYLOCAINE 1% 20 mL ONE (11:26)
--- NOTE | 2018-01-01 12:02 | Ultrasound Report ---
ULTRASOUND PARACENTESIS History: Ascites. Description of procedure: Informed consent was obtained. Sterile technique was utilized. 1% lidocaine for skin anesthesia. Using ultrasound guidance, a 5 [place] centesis needle was advanced into the right upper quadrant peritoneal space. There was spontaneous return of blood-tinged fluid. 370 cc of fluid was aspirated. 120 cc of fluid was sent to lab for analysis. No complications. Impression: Successful ultrasound guided paracentesis.
[2018-01-01 15:12] LABS: Total Cells Counted 100 /mm3
--- NOTE | 2018-01-01 17:38 | Progress Note ---
Assessment and Plan Sepsis, possibly SBP Acute encephalopathy Severe anemia Lactic acidosis, multifactorial Cirrhosis with esophageal varices Rectal bleeding Coagulopathy Metabolic acidosis, multifactorial Respiratory alkalosis Nonoliguric CARMEN secondary to prerenal azotemia due to hypoperfusion ATN vs HRS Moderate protein calorie malnutrition - Thoracentesis ordered (apparently paracentesis preferentially done - i will repeat CXR and follow clinically for now) - HD/UF per nephrology prescription ( should also reduce pulmonary volume overload) - continue conservative volume management at this point now off vasopressors - continue prn H&H; Transfuse PRBC's for Hb < 7.0 (or as per community youth secretary) - prn analgesia - 2D ECHO with EF 40-45%; no overt pulm HTN - s/p antibiotic course for sepsis - continue Aspiration precautions - enteral nutrition as tolerated (s/p small bowel feeding tube) - continue chronic home medications, including rifaximin and midodrine - Avoid nephrotoxics and adjust all medications for GFR - GI evaluation ongoing; octreotide if signs of active bleeding; continue lactulose but frequency reduced to bid - continue PPI therapy per GI recs - paracentesis per GI recs - Follow up cultures (NGTD) - SCDs for VTE prophylaxis in view of GIB and coagulopathy - Supportive transfusions - Nutrition consult placed - PT/OT consult placed - continue to monitor closely on telemetry ..... 25' Subjective Date of service: 01/01/18 Principal diagnosis: CARMEN on CKD; Acute Encephalopathy; Sepsis Syndrome; Anemia Interval history: Patient is seen today for: CARMEN on CKD; Acute Encephalopathy; Sepsis Syndrome; Anemia Seen and examined at bedside; 24hour events reviewed; nursing and respiratory care staff consulted; no adverse overnight events reported to me; s/p paracentesis; reported as blood tinged fluid; remains on supplemental oxygen; no hemoptysis. Objective Vital Signs - 12hr 01/01/18 01/01/18 01/01/18 05:58 09:43 10:00 Temperature 97.4 F L Pulse Rate 65 71 Respiratory 18 19 Rate Blood Pressure Blood Pressure 90/58 [Left] O2 Sat by Pulse 95 98 97 Oximetry 01/01/18 10:33 Temperature Pulse Rate Respiratory Rate Blood Pressure 94/56 Blood Pressure [Left] O2 Sat by Pulse Oximetry Constitutional: alert, other (chronically ill looking elderly AAM, normocephalic and atraumatic) Eyes: non-icteric ENT: oropharynx moist, other (mallampati 2) Neck: supple, no lymphadenopathy, no JVD, other (no thyromegaly) Effort: normal Ascultation: Bilateral: diminished breath sounds (bases), rhonchi (scant) Percussion: Right: dull (base) Cardiovascular: regular rate and rhythm, other (S1,S2, no murmurms, gallops or rubs) Gastrointestinal: normoactive bowel sounds, soft, non-tender, other (distended) Integumentary: rash Extremities: no cyanosis, no edema, pulses normal, no ischemia or petechiae, cool Neurologic: non-focal exam, pupils equal and round, motor strength normal and ( weak), other (alert, awake) Psychiatric: other (normal affect, confusion) CBC and BMP: 01/01/18 05:27 01/01/18 05:27 ABG, PT/INR, D-dimer: ABG POC ABG pH 7.452 (7.35-7.45) H 12/12/17 09:13 POC ABG pCO2 22.2 (35-45) L 12/12/17 09:13 POC ABG pO2 75 (80-105) L 12/12/17 09:13 POC ABG HCO3 15.5 12/12/17 09:13 POC ABG Total CO2 16 12/12/17 09:13 POC ABG O2 Sat 96 12/12/17 09:13 PT/INR, D-dimer PT 22.1 Sec. (12.2-14.9) H 01/01/18 05:27 INR 1.81 (0.87-1.13) H 01/01/18 05:27 D-Dimer 1215.06 ng/mlDDU (0-234) H 12/12/17 19:50 Abnormal lab findings: Abnormal Labs 12/10/17 12/10/17 12/10/17 13:14 13:14 23:05 RBC 2.31 L Hgb 7.3 L Hct 21.5 L MCV MCH MCHC RDW 17.7 H Plt Count 61 L Lymph % (Auto) [place] % (Auto) Baso % (Auto) Lymph # [place] # Seg Neutrophils % Seg Neuts % (Manual) 81.0 H Lymphocytes % (Manual) 11.0 L Lymphocytes # (Manual) 0.6 L PT INR APTT Fibrinogen D-Dimer POC ABG pH POC ABG pCO2 POC ABG pO2 Sodium 136 L Potassium 5.2 H Chloride Carbon Dioxide 15 L BUN 47 H Creatinine 5.2 H Glucose 127 H POC Glucose Lactic Acid Calcium Phosphorus Magnesium TIBC Ferritin Total Bilirubin 3.50 H Direct Bilirubin AST 71 H Ammonia Lactate Dehydrogenase NT-Pro-B Natriuret Pep Total Protein Albumin 2.6 L Lipase Vitamin B12 Urine WBC (Auto) 10.0 H Urine Creatinine Ur Creatinine 24 Hour Digoxin Crossmatch 12/10/17 12/10/17 12/10/17 23:14 23:14 23:14 RBC Hgb Hct MCV MCH MCHC RDW Plt Count Lymph % (Auto) [place] % (Auto) Baso % (Auto) Lymph # [place] # Seg Neutrophils % Seg Neuts % (Manual) Lymphocytes % (Manual) Lymphocytes # (Manual) PT INR APTT Fibrinogen D-Dimer POC ABG pH POC ABG pCO2 POC ABG pO2 Sodium Potassium Chloride Carbon Dioxide BUN Creatinine Glucose POC Glucose Lactic Acid 2.40 H* Calcium Phosphorus Magnesium TIBC Ferritin Total Bilirubin Direct Bilirubin AST Ammonia 134.0 H Lactate Dehydrogenase NT-Pro-B Natriuret Pep 9558 H Total Protein Albumin Lipase Vitamin B12 Urine WBC (Auto) Urine Creatinine Ur Creatinine 24 Hour Digoxin Crossmatch 12/10/17 12/11/17 12/11/17 23:14 00:29 03:33 RBC Hgb Hct MCV MCH MCHC RDW Plt Count Lymph % (Auto) [place] % (Auto) Baso % (Auto) Lymph # [place] # Seg Neutrophils % Seg Neuts % (Manual) Lymphocytes % (Manual) Lymphocytes # (Manual) PT INR APTT Fibrinogen D-Dimer POC ABG pH POC ABG pCO2 POC ABG pO2 Sodium Potassium Chloride Carbon Dioxide BUN Creatinine Glucose POC Glucose Lactic Acid 2.80 H* 3.00 H* Calcium Phosphorus Magnesium TIBC Ferritin Total Bilirubin Direct Bilirubin AST Ammonia Lactate Dehydrogenase NT-Pro-B Natriuret Pep Total Protein Albumin Lipase 7 L Vitamin B12 Urine WBC (Auto) Urine Creatinine Ur Creatinine 24 Hour Digoxin Crossmatch 12/11/17 12/11/17 12/11/17 04:08 04:34 04:34 RBC Hgb Hct MCV MCH MCHC RDW Plt Count Lymph % (Auto) [place] % (Auto) Baso % (Auto) Lymph # [place] # Seg Neutrophils % Seg Neuts % (Manual) Lymphocytes % (Manual) Lymphocytes # (Manual) PT 19.1 H INR 1.51 H APTT 45.7 H Fibrinogen D-Dimer POC ABG pH POC ABG pCO2 POC ABG pO2 Sodium Potassium Chloride Carbon Dioxide BUN Creatinine Glucose POC Glucose 113 H Lactic Acid 3.10 H* Calcium Phosphorus Magnesium TIBC Ferritin Total Bilirubin Direct Bilirubin AST Ammonia Lactate Dehydrogenase NT-Pro-B Natriuret Pep Total Protein Albumin Lipase Vitamin B12 Urine WBC (Auto) Urine Creatinine Ur Creatinine 24 Hour Digoxin Crossmatch 12/11/17 12/11/17 12/11/17 06:46 07:26 09:42 RBC Hgb Hct MCV MCH MCHC RDW Plt Count Lymph % (Auto) [place] % (Auto) Baso % (Auto) Lymph # [place] # Seg Neutrophils % Seg Neuts % (Manual) Lymphocytes % (Manual) Lymphocytes # (Manual) PT INR APTT Fibrinogen D-Dimer POC ABG pH POC ABG pCO2 POC ABG pO2 Sodium Potassium Chloride Carbon Dioxide BUN Creatinine Glucose POC Glucose Lactic Acid 2.70 H* 2.80 H* 2.90 H* Calcium Phosphorus Magnesium TIBC Ferritin Total Bilirubin Direct Bilirubin AST Ammonia Lactate Dehydrogenase NT-Pro-B Natriuret Pep Total Protein Albumin Lipase Vitamin B12 Urine WBC (Auto) Urine Creatinine Ur Creatinine 24 Hour Digoxin Crossmatch 12/11/17 12/11/17 12/11/17 13:12 14:06 23:14 RBC Hgb Hct MCV MCH MCHC RDW Plt Count Lymph % (Auto) [place] % (Auto) Baso % (Auto) Lymph # [place] # Seg Neutrophils % Seg Neuts % (Manual) Lymphocytes % (Manual) Lymphocytes # (Manual) PT INR APTT Fibrinogen D-Dimer POC ABG pH POC ABG pCO2 POC ABG pO2 Sodium Potassium Chloride Carbon Dioxide BUN Creatinine Glucose POC Glucose Lactic Acid 3.10 H* 3.10 H* 3.70 H* Calcium Phosphorus Magnesium TIBC Ferritin Total Bilirubin Direct Bilirubin AST Ammonia Lactate Dehydrogenase NT-Pro-B Natriuret Pep Total Protein Albumin Lipase Vitamin B12 Urine WBC (Auto) Urine Creatinine Ur Creatinine 24 Hour Digoxin Crossmatch 12/11/17 12/12/17 12/12/17 23:23 03:41 03:41 RBC 2.17 L Hgb 7.0 L Hct 19.9 L* MCV MCH 33 H MCHC 35 H RDW 17.7 H Plt Count 62 L Lymph % (Auto) [place] % (Auto) Baso % (Auto) Lymph # [place] # Seg Neutrophils % Seg Neuts % (Manual) 91.0 H Lymphocytes % (Manual) 3.0 L Lymphocytes # (Manual) 0.2 L PT INR APTT Fibrinogen D-Dimer POC ABG pH POC ABG pCO2 POC ABG pO2 Sodium Potassium 5.4 H Chloride Carbon Dioxide 12 L BUN 47 H Creatinine 4.5 H Glucose 103 H POC Glucose Lactic Acid Calcium 8.0 L Phosphorus Magnesium TIBC Ferritin Total Bilirubin 3.60 H Direct Bilirubin AST 58 H Ammonia Lactate Dehydrogenase NT-Pro-B Natriuret Pep Total Protein 5.9 L Albumin 2.5 L Lipase Vitamin B12 Urine WBC (Auto) Urine Creatinine Ur Creatinine 24 Hour Digoxin Crossmatch See Detail 12/12/17 12/12/17 12/12/17 07:00 09:13 17:55 RBC 2.06 L Hgb 6.6 L Hct 18.6 L* MCV MCH MCHC 36 H RDW 17.8 H Plt Count 77 L Lymph % (Auto) [place] % (Auto) Baso % (Auto) Lymph # [place] # Seg Neutrophils % Seg Neuts % (Manual) Lymphocytes % (Manual) Lymphocytes # (Manual) PT INR APTT Fibrinogen D-Dimer POC ABG pH 7.452 H POC ABG pCO2 22.2 L POC ABG pO2 75 L Sodium Potassium Chloride Carbon Dioxide BUN Creatinine Glucose POC Glucose 119 H Lactic Acid Calcium Phosphorus Magnesium TIBC Ferritin Total Bilirubin Direct Bilirubin AST Ammonia Lactate Dehydrogenase NT-Pro-B Natriuret Pep Total Protein Albumin Lipase Vitamin B12 Urine WBC (Auto) Urine Creatinine Ur Creatinine 24 Hour Digoxin Crossmatch 12/12/17 12/12/17 12/12/17 19:50 19:50 19:50 RBC 2.40 L Hgb 7.8 L Hct 21.3 L MCV MCH 33 H MCHC 37 H RDW 16.1 H Plt Count 99 L Lymph % (Auto) [place] % (Auto) Baso % (Auto) Lymph # [place] # Seg Neutrophils % Seg Neuts % (Manual) 87.0 H Lymphocytes % (Manual) 5.0 L Lymphocytes # (Manual) 0.3 L PT 21.9 H INR 1.79 H APTT 41.5 H Fibrinogen 128 L D-Dimer 1215.06 H POC ABG pH POC ABG pCO2 POC ABG pO2 Sodium Potassium Chloride Carbon Dioxide BUN Creatinine Glucose POC Glucose Lactic Acid Calcium Phosphorus Magnesium TIBC Ferritin Total Bilirubin 4.10 H Direct Bilirubin 1.6 H AST Ammonia Lactate Dehydrogenase NT-Pro-B Natriuret Pep Total Protein Albumin Lipase Vitamin B12 Urine WBC (Auto) Urine Creatinine Ur Creatinine 24 Hour Digoxin Crossmatch 12/12/17 12/12/17 12/12/17 19:50 19:50 23:46 RBC Hgb Hct MCV MCH MCHC RDW Plt Count Lymph % (Auto) [place] % (Auto) Baso % (Auto) Lymph # [place] # Seg Neutrophils % Seg Neuts % (Manual) Lymphocytes % (Manual) Lymphocytes # (Manual) PT INR APTT Fibrinogen D-Dimer POC ABG pH POC ABG pCO2 POC ABG pO2 Sodium Potassium Chloride Carbon Dioxide BUN Creatinine Glucose POC Glucose 110 H Lactic Acid Calcium Phosphorus Magnesium TIBC Ferritin Total Bilirubin Direct Bilirubin AST Ammonia Lactate Dehydrogenase 213 H NT-Pro-B Natriuret Pep Total Protein Albumin Lipase Vitamin B12 1465 H Urine WBC (Auto) Urine Creatinine Ur Creatinine 24 Hour Digoxin Crossmatch 12/13/17 12/13/17 12/13/17 04:00 04:00 05:12 RBC 2.32 L Hgb 7.4 L Hct 20.8 L MCV MCH MCHC 36 H RDW 16.1 H Plt Count 134 L Lymph % (Auto) 13.1 L [place] % (Auto) 7.9 H Baso % (Auto) Lymph # 0.8 L [place] # Seg Neutrophils % 76.3 H Seg Neuts % (Manual) Lymphocytes % (Manual) Lymphocytes # (Manual) PT INR APTT Fibrinogen D-Dimer POC ABG pH POC ABG pCO2 POC ABG pO2 Sodium Potassium Chloride Carbon Dioxide 21 L D BUN 48 H Creatinine 4.6 H Glucose 104 H POC Glucose 134 H Lactic Acid Calcium 8.1 L Phosphorus Magnesium TIBC Ferritin Total Bilirubin 4.70 H Direct Bilirubin AST 43 H Ammonia Lactate Dehydrogenase NT-Pro-B Natriuret Pep Total Protein 5.8 L Albumin 3.1 L Lipase Vitamin B12 Urine WBC (Auto) Urine Creatinine Ur Creatinine 24 Hour Digoxin Crossmatch 12/13/17 12/13/17 12/13/17 08:45 12:25 14:03 RBC Hgb Hct MCV MCH MCHC RDW Plt Count Lymph % (Auto) [place] % (Auto) Baso % (Auto) Lymph # [place] # Seg Neutrophils % Seg Neuts % (Manual) Lymphocytes % (Manual) Lymphocytes # (Manual) PT 20.5 H INR 1.65 H APTT Fibrinogen D-Dimer POC ABG pH POC ABG pCO2 POC ABG pO2 Sodium Potassium Chloride Carbon Dioxide BUN Creatinine Glucose POC Glucose 112 H Lactic Acid 3.70 H* Calcium Phosphorus Magnesium TIBC Ferritin Total Bilirubin Direct Bilirubin AST Ammonia Lactate Dehydrogenase NT-Pro-B Natriuret Pep Total Protein Albumin Lipase Vitamin B12 Urine WBC (Auto) Urine Creatinine Ur Creatinine 24 Hour Digoxin Crossmatch 12/13/17 12/13/17 12/13/17 14:03 18:52 21:09 RBC Hgb Hct MCV MCH MCHC RDW Plt Count Lymph % (Auto) [place] % (Auto) Baso % (Auto) Lymph # [place] # Seg Neutrophils % Seg Neuts % (Manual) Lymphocytes % (Manual) Lymphocytes # (Manual) PT INR APTT Fibrinogen D-Dimer POC ABG pH POC ABG pCO2 POC ABG pO2 Sodium Potassium Chloride Carbon Dioxide BUN Creatinine Glucose POC Glucose 110 H Lactic Acid 4.00 H* Calcium Phosphorus Magnesium TIBC Ferritin Total Bilirubin Direct Bilirubin AST Ammonia 87.0 H Lactate Dehydrogenase NT-Pro-B Natriuret Pep Total Protein Albumin Lipase Vitamin B12 Urine WBC (Auto) Urine Creatinine Ur Creatinine 24 Hour Digoxin Crossmatch 12/14/17 12/14/17 12/14/17 00:25 03:30 03:30 RBC 2.29 L Hgb 7.3 L Hct 20.7 L MCV MCH MCHC 35 H RDW 16.2 H Plt Count 84 L Lymph % (Auto) 12.8 L [place] % (Auto) 8.3 H Baso % (Auto) Lymph # 0.6 L [place] # Seg Neutrophils % 77.2 H Seg Neuts % (Manual) Lymphocytes % (Manual) Lymphocytes # (Manual) PT INR APTT Fibrinogen D-Dimer POC ABG pH POC ABG pCO2 POC ABG pO2 Sodium Potassium Chloride 96.1 L Carbon Dioxide BUN 48 H Creatinine 4.6 H Glucose 125 H POC Glucose 131 H Lactic Acid Calcium 7.9 L Phosphorus Magnesium TIBC Ferritin Total Bilirubin 4.70 H Direct Bilirubin AST 45 H Ammonia Lactate Dehydrogenase NT-Pro-B Natriuret Pep Total Protein 6.1 L Albumin 3.4 L Lipase Vitamin B12 Urine WBC (Auto) Urine Creatinine Ur Creatinine 24 Hour Digoxin Crossmatch 0712/14/17 12/14/17 05:31 12:26 12:55 RBC Hgb Hct MCV MCH MCHC RDW Plt Count Lymph % (Auto) [place] % (Auto) Baso % (Auto) Lymph # [place] # Seg Neutrophils % Seg Neuts % (Manual) Lymphocytes % (Manual) Lymphocytes # (Manual) PT INR APTT Fibrinogen D-Dimer POC ABG pH POC ABG pCO2 POC ABG pO2 Sodium Potassium Chloride Carbon Dioxide BUN Creatinine Glucose POC Glucose 125 H 117 H Lactic Acid 3.40 H* Calcium Phosphorus Magnesium TIBC Ferritin Total Bilirubin Direct Bilirubin AST Ammonia Lactate Dehydrogenase NT-Pro-B Natriuret Pep Total Protein Albumin Lipase Vitamin B12 Urine WBC (Auto) Urine Creatinine Ur Creatinine 24 Hour Digoxin Crossmatch 12/14/17 12/14/17 12/14/17 15:26 17:26 18:07 RBC Hgb Hct MCV MCH MCHC RDW Plt Count Lymph % (Auto) [place] % (Auto) Baso % (Auto) Lymph # [place] # Seg Neutrophils % Seg Neuts % (Manual) Lymphocytes % (Manual) Lymphocytes # (Manual) PT INR APTT Fibrinogen D-Dimer POC ABG pH POC ABG pCO2 POC ABG pO2 Sodium Potassium Chloride Carbon Dioxide BUN Creatinine Glucose POC Glucose 143 H Lactic Acid 4.00 H* 3.90 H* Calcium Phosphorus Magnesium TIBC Ferritin Total Bilirubin Direct Bilirubin AST Ammonia Lactate Dehydrogenase NT-Pro-B Natriuret Pep Total Protein Albumin Lipase Vitamin B12 Urine WBC (Auto) Urine Creatinine Ur Creatinine 24 Hour Digoxin Crossmatch 12/14/17 12/15/17 12/15/17 Unknown 00:08 04:51 RBC 2.27 L Hgb 7.3 L Hct 20.7 L MCV MCH MCHC 35 H RDW 16.1 H Plt Count 92 L Lymph % (Auto) 12.5 L [place] % (Auto) 10.4 H Baso % (Auto) Lymph # 0.6 L [place] # Seg Neutrophils % 74.7 H Seg Neuts % (Manual) Lymphocytes % (Manual) Lymphocytes # (Manual) PT INR APTT Fibrinogen D-Dimer POC ABG pH POC ABG pCO2 POC ABG pO2 Sodium Potassium Chloride Carbon Dioxide BUN Creatinine Glucose POC Glucose 124 H Lactic Acid Calcium Phosphorus Magnesium TIBC Ferritin Total Bilirubin Direct Bilirubin AST Ammonia Lactate Dehydrogenase NT-Pro-B Natriuret Pep Total Protein Albumin Lipase Vitamin B12 Urine WBC (Auto) Urine Creatinine 122.5 H Ur Creatinine 24 Hour 0.3 L Digoxin Crossmatch 12/15/17 12/15/17 12/15/17 04:51 04:51 05:56 RBC Hgb Hct MCV MCH MCHC RDW Plt Count Lymph % (Auto) [place] % (Auto) Baso % (Auto) Lymph # [place] # Seg Neutrophils % Seg Neuts % (Manual) Lymphocytes % (Manual) Lymphocytes # (Manual) PT INR APTT Fibrinogen D-Dimer POC ABG pH POC ABG pCO2 POC ABG pO2 Sodium Potassium 3.5 L Chloride 92.6 L Carbon Dioxide BUN 50 H Creatinine 4.8 H Glucose 141 H POC Glucose 143 H Lactic Acid Calcium 7.9 L Phosphorus Magnesium TIBC Ferritin Total Bilirubin 3.60 H Direct Bilirubin AST 44 H Ammonia 24.0 L Lactate Dehydrogenase NT-Pro-B Natriuret Pep Total Protein 6.1 L Albumin 3.8 L Lipase Vitamin B12 Urine WBC (Auto) Urine Creatinine Ur Creatinine 24 Hour Digoxin Crossmatch 12/15/17 12/15/17 12/16/17 12:17 23:10 07:04 RBC Hgb Hct MCV MCH MCHC RDW Plt Count Lymph % (Auto) [place] % (Auto) Baso % (Auto) Lymph # [place] # Seg Neutrophils % Seg Neuts % (Manual) Lymphocytes % (Manual) Lymphocytes # (Manual) PT INR APTT Fibrinogen D-Dimer POC ABG pH POC ABG pCO2 POC ABG pO2 Sodium Potassium Chloride Carbon Dioxide BUN Creatinine Glucose POC Glucose 127 H 157 H 147 H Lactic Acid Calcium Phosphorus Magnesium TIBC Ferritin Total Bilirubin Direct Bilirubin AST Ammonia Lactate Dehydrogenase NT-Pro-B Natriuret Pep Total Protein Albumin Lipase Vitamin B12 Urine WBC (Auto) Urine Creatinine Ur Creatinine 24 Hour Digoxin Crossmatch 12/16/17 12/16/17 12/16/17 11:35 12:37 12:37 RBC 2.21 L Hgb 6.9 L Hct 20.2 L MCV MCH MCHC RDW 16.2 H Plt Count 50 L Lymph % (Auto) [place] % (Auto) 9.7 H Baso % (Auto) Lymph # 0.7 L [place] # Seg Neutrophils % 73.1 H Seg Neuts % (Manual) Lymphocytes % (Manual) Lymphocytes # (Manual) PT INR APTT Fibrinogen D-Dimer POC ABG pH POC ABG pCO2 POC ABG pO2 Sodium Potassium Chloride 88.2 L Carbon Dioxide BUN 52 H Creatinine 5.5 H Glucose 107 H POC Glucose 134 H Lactic Acid Calcium 7.8 L Phosphorus Magnesium TIBC Ferritin Total Bilirubin 2.60 H Direct Bilirubin AST 49 H Ammonia Lactate Dehydrogenase NT-Pro-B Natriuret Pep Total Protein Albumin 3.6 L Lipase Vitamin B12 Urine WBC (Auto) Urine Creatinine Ur Creatinine 24 Hour Digoxin Crossmatch 12/16/17 12/16/17 12/16/17 18:06 20:45 23:34 RBC Hgb Hct MCV MCH MCHC RDW Plt Count Lymph % (Auto) [place] % (Auto) Baso % (Auto) Lymph # [place] # Seg Neutrophils % Seg Neuts % (Manual) Lymphocytes % (Manual) Lymphocytes # (Manual) PT INR APTT Fibrinogen D-Dimer POC ABG pH POC ABG pCO2 POC ABG pO2 Sodium Potassium Chloride Carbon Dioxide BUN Creatinine Glucose POC Glucose 133 H 139 H Lactic Acid Calcium Phosphorus Magnesium TIBC Ferritin Total Bilirubin Direct Bilirubin AST Ammonia Lactate Dehydrogenase NT-Pro-B Natriuret Pep Total Protein Albumin Lipase Vitamin B12 Urine WBC (Auto) Urine Creatinine Ur Creatinine 24 Hour Digoxin Crossmatch See Detail 12/17/17 12/17/17 12/17/17 05:27 05:27 06:11 RBC 2.10 L Hgb 6.6 L Hct 19.2 L* MCV MCH MCHC 35 H RDW 16.5 H Plt Count 65 L Lymph % (Auto) 12.6 L [place] % (Auto) 9.6 H Baso % (Auto) Lymph # 0.7 L [place] # Seg Neutrophils % 75.8 H Seg Neuts % (Manual) Lymphocytes % (Manual) Lymphocytes # (Manual) PT INR APTT Fibrinogen D-Dimer POC ABG pH POC ABG pCO2 POC ABG pO2 Sodium 135 L Potassium 3.4 L Chloride 84.9 L Carbon Dioxide 33 H BUN 53 H Creatinine 5.9 H Glucose POC Glucose 110 H Lactic Acid Calcium 7.7 L Phosphorus Magnesium TIBC Ferritin Total Bilirubin 2.70 H Direct Bilirubin AST 50 H Ammonia Lactate Dehydrogenase NT-Pro-B Natriuret Pep Total Protein 6.2 L Albumin 3.7 L Lipase Vitamin B12 Urine WBC (Auto) Urine Creatinine Ur Creatinine 24 Hour Digoxin Crossmatch 12/17/17 12/18/17 12/18/17 09:34 00:05 05:21 RBC 3.35 L Hgb 10.3 L D Hct 30.4 L D MCV MCH MCHC RDW 16.2 H Plt Count 57 L Lymph % (Auto) 8.0 L [place] % (Auto) 10.9 H Baso % (Auto) Lymph # 0.6 L [place] # Seg Neutrophils % 80.2 H Seg Neuts % (Manual) Lymphocytes % (Manual) Lymphocytes # (Manual) PT 23.9 H INR 1.99 H APTT Fibrinogen D-Dimer POC ABG pH POC ABG pCO2 POC ABG pO2 Sodium Potassium Chloride Carbon Dioxide BUN Creatinine Glucose POC Glucose 132 H Lactic Acid Calcium Phosphorus Magnesium TIBC Ferritin Total Bilirubin Direct Bilirubin AST Ammonia Lactate Dehydrogenase NT-Pro-B Natriuret Pep Total Protein Albumin Lipase Vitamin B12 Urine WBC (Auto) Urine Creatinine Ur Creatinine 24 Hour Digoxin Crossmatch 12/18/17 12/18/17 12/18/17 05:21 06:16 11:11 RBC Hgb Hct MCV MCH MCHC RDW Plt Count Lymph % (Auto) [place] % (Auto) Baso % (Auto) Lymph # [place] # Seg Neutrophils % Seg Neuts % (Manual) Lymphocytes % (Manual) Lymphocytes # (Manual) PT 34.7 H INR 3.17 H APTT Fibrinogen D-Dimer POC ABG pH POC ABG pCO2 POC ABG pO2 Sodium Potassium 3.5 L Chloride 87.1 L Carbon Dioxide BUN 35 H Creatinine 4.3 H Glucose 110 H POC Glucose 116 H Lactic Acid Calcium 8.1 L Phosphorus Magnesium TIBC Ferritin Total Bilirubin 5.10 H Direct Bilirubin AST 56 H Ammonia Lactate Dehydrogenase NT-Pro-B Natriuret Pep Total Protein Albumin Lipase Vitamin B12 Urine WBC (Auto) Urine Creatinine Ur Creatinine 24 Hour Digoxin Crossmatch 12/18/17 12/18/17 12/18/17 13:10 17:52 22:04 RBC Hgb Hct MCV MCH MCHC RDW Plt Count Lymph % (Auto) [place] % (Auto) Baso % (Auto) Lymph # [place] # Seg Neutrophils % Seg Neuts % (Manual) Lymphocytes % (Manual) Lymphocytes # (Manual) PT 25.9 H INR 2.20 H APTT Fibrinogen D-Dimer POC ABG pH POC ABG pCO2 POC ABG pO2 Sodium Potassium Chloride Carbon Dioxide BUN Creatinine Glucose POC Glucose 114 H 108 H Lactic Acid Calcium Phosphorus Magnesium TIBC Ferritin Total Bilirubin Direct Bilirubin AST Ammonia Lactate Dehydrogenase NT-Pro-B Natriuret Pep Total Protein Albumin Lipase Vitamin B12 Urine WBC (Auto) Urine Creatinine Ur Creatinine 24 Hour Digoxin Crossmatch 12/19/17 12/19/17 12/19/17 05:55 05:55 10:20 RBC 2.85 L Hgb 9.1 L Hct 25.7 L MCV MCH MCHC 35 H RDW 16.4 H Plt Count 61 L Lymph % (Auto) [place] % (Auto) Baso % (Auto) Lymph # [place] # Seg Neutrophils % Seg Neuts % (Manual) Lymphocytes % (Manual) Lymphocytes # (Manual) PT INR APTT Fibrinogen D-Dimer POC ABG pH POC ABG pCO2 POC ABG pO2 Sodium Potassium Chloride 94.5 L Carbon Dioxide BUN 27 H Creatinine 3.6 H Glucose POC Glucose 131 H Lactic Acid Calcium 8.2 L Phosphorus Magnesium TIBC Ferritin Total Bilirubin Direct Bilirubin AST Ammonia Lactate Dehydrogenase NT-Pro-B Natriuret Pep Total Protein Albumin Lipase Vitamin B12 Urine WBC (Auto) Urine Creatinine Ur Creatinine 24 Hour Digoxin Crossmatch 12/19/17 12/21/17 12/21/17 11:46 05:26 05:26 RBC 2.60 L Hgb 8.4 L Hct 23.9 L MCV MCH MCHC 35 H RDW 16.2 H Plt Count 57 L Lymph % (Auto) 12.4 L [place] % (Auto) 10.7 H Baso % (Auto) Lymph # [place] # 1.0 H Seg Neutrophils % 74.8 H Seg Neuts % (Manual) Lymphocytes % (Manual) Lymphocytes # (Manual) PT 26.2 H INR 2.23 H APTT Fibrinogen D-Dimer POC ABG pH POC ABG pCO2 POC ABG pO2 Sodium Potassium Chloride Carbon Dioxide BUN Creatinine Glucose POC Glucose Lactic Acid Calcium Phosphorus Magnesium TIBC Ferritin Total Bilirubin Direct Bilirubin AST Ammonia Lactate Dehydrogenase NT-Pro-B Natriuret Pep Total Protein Albumin Lipase Vitamin B12 Urine WBC (Auto) Urine Creatinine Ur Creatinine 24 Hour Digoxin 0.4 L Crossmatch 12/21/17 12/23/17 12/24/17 09:40 08:15 04:51 RBC 1.80 L Hgb 5.9 L* Hct 17.0 L* D MCV MCH 33 H MCHC 35 H RDW 16.5 H Plt Count 53 L Lymph % (Auto) [place] % (Auto) Baso % (Auto) Lymph # [place] # Seg Neutrophils % Seg Neuts % (Manual) Lymphocytes % (Manual) Lymphocytes # (Manual) PT 26.4 H 27.9 H INR 2.26 H 2.42 H APTT Fibrinogen D-Dimer POC ABG pH POC ABG pCO2 POC ABG pO2 Sodium Potassium Chloride Carbon Dioxide BUN Creatinine Glucose POC Glucose Lactic Acid Calcium Phosphorus Magnesium TIBC Ferritin Total Bilirubin Direct Bilirubin AST Ammonia Lactate Dehydrogenase NT-Pro-B Natriuret Pep Total Protein Albumin Lipase Vitamin B12 Urine WBC (Auto) Urine Creatinine Ur Creatinine 24 Hour Digoxin Crossmatch 12/24/17 12/24/17 12/24/17 04:51 06:25 08:20 RBC Hgb Hct MCV MCH MCHC RDW Plt Count Lymph % (Auto) [place] % (Auto) Baso % (Auto) Lymph # [place] # Seg Neutrophils % Seg Neuts % (Manual) Lymphocytes % (Manual) Lymphocytes # (Manual) PT 40.8 H INR 3.87 H APTT Fibrinogen D-Dimer POC ABG pH POC ABG pCO2 POC ABG pO2 Sodium Potassium 3.5 L Chloride Carbon Dioxide BUN 21 H Creatinine 4.4 H Glucose POC Glucose Lactic Acid Calcium 8.1 L Phosphorus Magnesium TIBC Ferritin Total Bilirubin Direct Bilirubin AST Ammonia Lactate Dehydrogenase NT-Pro-B Natriuret Pep Total Protein Albumin Lipase Vitamin B12 Urine WBC (Auto) Urine Creatinine Ur Creatinine 24 Hour Digoxin Crossmatch See Detail 12/24/17 12/24/17 12/25/17 19:21 19:21 05:27 RBC 2.31 L Hgb 7.3 L 7.4 L Hct 20.4 L 21.3 L MCV MCH MCHC 35 H RDW 15.9 H Plt Count 39 L Lymph % (Auto) [place] % (Auto) 10.8 H Baso % (Auto) Lymph # 0.9 L [place] # Seg Neutrophils % 71.9 H Seg Neuts % (Manual) Lymphocytes % (Manual) Lymphocytes # (Manual) PT 21.3 H INR 1.73 H APTT Fibrinogen D-Dimer POC ABG pH POC ABG pCO2 POC ABG pO2 Sodium Potassium Chloride Carbon Dioxide BUN Creatinine Glucose POC Glucose Lactic Acid Calcium Phosphorus Magnesium TIBC Ferritin Total Bilirubin Direct Bilirubin AST Ammonia Lactate Dehydrogenase NT-Pro-B Natriuret Pep Total Protein Albumin Lipase Vitamin B12 Urine WBC (Auto) Urine Creatinine Ur Creatinine 24 Hour Digoxin Crossmatch 12/25/17 12/25/17 12/25/17 05:27 05:27 12:24 RBC Hgb Hct MCV MCH MCHC RDW Plt Count Lymph % (Auto) [place] % (Auto) Baso % (Auto) Lymph # [place] # Seg Neutrophils % Seg Neuts % (Manual) Lymphocytes % (Manual) Lymphocytes # (Manual) PT 22.1 H INR 1.81 H APTT Fibrinogen D-Dimer POC ABG pH POC ABG pCO2 POC ABG pO2 Sodium Potassium 3.5 L Chloride 96.7 L Carbon Dioxide BUN Creatinine 3.2 H Glucose POC Glucose 140 H Lactic Acid Calcium 8.1 L Phosphorus Magnesium TIBC Ferritin Total Bilirubin Direct Bilirubin AST Ammonia Lactate Dehydrogenase NT-Pro-B Natriuret Pep Total Protein Albumin Lipase Vitamin B12 Urine WBC (Auto) Urine Creatinine Ur Creatinine 24 Hour Digoxin Crossmatch 12/26/17 12/26/17 12/27/17 05:59 05:59 06:34 RBC 2.01 L 2.52 L Hgb 6.6 L 8.2 L Hct 18.6 L* 23.2 L MCV MCH 33 H MCHC 35 H 35 H RDW 16.6 H 15.3 H Plt Count 45 L 39 L Lymph % (Auto) 11.6 L [place] % (Auto) 10.3 H 11.2 H Baso % (Auto) Lymph # 1.0 L 0.7 L [place] # Seg Neutrophils % 72.2 H 75.4 H Seg Neuts % (Manual) Lymphocytes % (Manual) Lymphocytes # (Manual) PT INR APTT Fibrinogen D-Dimer POC ABG pH POC ABG pCO2 POC ABG pO2 Sodium Potassium 3.3 L Chloride Carbon Dioxide BUN Creatinine 3.8 H Glucose 110 H POC Glucose Lactic Acid Calcium Phosphorus 2.40 L Magnesium 1.40 L TIBC Ferritin Total Bilirubin 7.10 H Direct Bilirubin AST 73 H Ammonia Lactate Dehydrogenase NT-Pro-B Natriuret Pep Total Protein Albumin 3.5 L Lipase Vitamin B12 Urine WBC (Auto) Urine Creatinine Ur Creatinine 24 Hour Digoxin Crossmatch 12/27/17 12/27/17 12/27/17 06:34 06:34 06:34 RBC Hgb Hct MCV MCH MCHC RDW Plt Count Lymph % (Auto) [place] % (Auto) Baso % (Auto) Lymph # [place] # Seg Neutrophils % Seg Neuts % (Manual) Lymphocytes % (Manual) Lymphocytes # (Manual) PT INR APTT Fibrinogen D-Dimer POC ABG pH POC ABG pCO2 POC ABG pO2 Sodium Potassium 3.3 L Chloride 95.4 L Carbon Dioxide BUN Creatinine 2.6 H Glucose 112 H POC Glucose Lactic Acid Calcium 8.1 L Phosphorus Magnesium TIBC 77 L Ferritin > 2000.0 H Total Bilirubin 8.00 H Direct Bilirubin AST 89 H Ammonia Lactate Dehydrogenase 302 H NT-Pro-B Natriuret Pep Total Protein Albumin 3.7 L Lipase Vitamin B12 Urine WBC (Auto) Urine Creatinine Ur Creatinine 24 Hour Digoxin Crossmatch 12/28/17 12/28/17 12/29/17 06:24 09:00 00:30 RBC 2.25 L Hgb 7.5 L Hct 21.1 L MCV MCH 33 H MCHC 35 H RDW 16.2 H Plt Count 78 L D Lymph % (Auto) 12.5 L [place] % (Auto) 12.3 H Baso % (Auto) Lymph # 0.9 L [place] # 0.9 H Seg Neutrophils % 73.3 H Seg Neuts % (Manual) Lymphocytes % (Manual) Lymphocytes # (Manual) PT 23.7 H INR 1.97 H APTT 53.1 H Fibrinogen D-Dimer POC ABG pH POC ABG pCO2 POC ABG pO2 Sodium Potassium Chloride Carbon Dioxide BUN Creatinine Glucose POC Glucose 148 H Lactic Acid Calcium Phosphorus Magnesium TIBC Ferritin Total Bilirubin Direct Bilirubin AST Ammonia Lactate Dehydrogenase NT-Pro-B Natriuret Pep Total Protein Albumin Lipase Vitamin B12 Urine WBC (Auto) Urine Creatinine Ur Creatinine 24 Hour Digoxin Crossmatch 12/29/17 12/29/17 12/29/17 00:34 03:59 03:59 RBC 2.19 L Hgb 7.2 L Hct 20.7 L MCV 95 H MCH 33 H MCHC 35 H RDW 16.9 H Plt Count 75 L Lymph % (Auto) [place] % (Auto) 10.8 H Baso % (Auto) Lymph # [place] # Seg Neutrophils % 70.8 H Seg Neuts % (Manual) Lymphocytes % (Manual) Lymphocytes # (Manual) PT 25.7 H INR 2.18 H APTT Fibrinogen D-Dimer POC ABG pH POC ABG pCO2 POC ABG pO2 Sodium Potassium Chloride Carbon Dioxide BUN Creatinine 2.3 H Glucose 111 H POC Glucose Lactic Acid Calcium Phosphorus Magnesium TIBC Ferritin Total Bilirubin 8.20 H Direct Bilirubin AST 66 H Ammonia Lactate Dehydrogenase NT-Pro-B Natriuret Pep Total Protein Albumin 3.5 L Lipase Vitamin B12 Urine WBC (Auto) Urine Creatinine Ur Creatinine 24 Hour Digoxin Crossmatch 12/29/17 12/30/17 12/30/17 07:35 07:51 08:27 RBC 1.97 L Hgb 6.7 L Hct 18.8 L* MCV 96 H MCH 34 H MCHC 36 H RDW 17.6 H Plt Count 76 L Lymph % (Auto) [place] % (Auto) 10.5 H Baso % (Auto) Lymph # 1.0 L [place] # Seg Neutrophils % 72.4 H Seg Neuts % (Manual) Lymphocytes % (Manual) Lymphocytes # (Manual) PT INR APTT Fibrinogen D-Dimer POC ABG pH POC ABG pCO2 POC ABG pO2 Sodium Potassium Chloride Carbon Dioxide BUN Creatinine Glucose POC Glucose 113 H Lactic Acid Calcium Phosphorus Magnesium 1.50 L TIBC Ferritin Total Bilirubin Direct Bilirubin AST Ammonia Lactate Dehydrogenase NT-Pro-B Natriuret Pep Total Protein Albumin Lipase Vitamin B12 Urine WBC (Auto) Urine Creatinine Ur Creatinine 24 Hour Digoxin Crossmatch 12/30/17 12/31/17 12/31/17 08:44 12:59 12:59 RBC 2.49 L Hgb 8.3 L Hct 23.0 L MCV MCH 33 H MCHC 36 H RDW 17.5 H Plt Count 69 L Lymph % (Auto) [place] % (Auto) 13.0 H Baso % (Auto) 1.9 H Lymph # 1.1 L [place] # 0.9 H Seg Neutrophils % Seg Neuts % (Manual) Lymphocytes % (Manual) Lymphocytes # (Manual) PT INR APTT Fibrinogen D-Dimer POC ABG pH POC ABG pCO2 POC ABG pO2 Sodium Potassium Chloride Carbon Dioxide BUN 21 H Creatinine 3.8 H D Glucose 114 H POC Glucose Lactic Acid Calcium Phosphorus Magnesium TIBC Ferritin Total Bilirubin 8.30 H Direct Bilirubin AST 46 H Ammonia Lactate Dehydrogenase NT-Pro-B Natriuret Pep Total Protein Albumin Lipase Vitamin B12 Urine WBC (Auto) Urine Creatinine Ur Creatinine 24 Hour Digoxin Crossmatch See Detail 12/31/17 01/01/18 01/01/18 12:59 05:27 05:27 RBC 2.69 L Hgb 9.1 L Hct 25.1 L MCV MCH 34 H MCHC 36 H RDW 17.5 H Plt Count 64 L Lymph % (Auto) 12.5 L [place] % (Auto) 14.4 H Baso % (Auto) Lymph # 0.9 L [place] # 1.1 H Seg Neutrophils % 70.4 H Seg Neuts % (Manual) Lymphocytes % (Manual) Lymphocytes # (Manual) PT 19.7 H 22.1 H INR 1.57 H 1.81 H APTT Fibrinogen D-Dimer POC ABG pH POC ABG pCO2 POC ABG pO2 Sodium Potassium Chloride Carbon Dioxide BUN Creatinine Glucose POC Glucose Lactic Acid Calcium Phosphorus Magnesium TIBC Ferritin Total Bilirubin Direct Bilirubin AST Ammonia Lactate Dehydrogenase NT-Pro-B Natriuret Pep Total Protein Albumin Lipase Vitamin B12 Urine WBC (Auto) Urine Creatinine Ur Creatinine 24 Hour Digoxin Crossmatch 01/01/18 05:27 RBC Hgb Hct MCV MCH MCHC RDW Plt Count Lymph % (Auto) [place] % (Auto) Baso % (Auto) Lymph # [place] # Seg Neutrophils % Seg Neuts % (Manual) Lymphocytes % (Manual) Lymphocytes # (Manual) PT INR APTT Fibrinogen D-Dimer POC ABG pH POC ABG pCO2 POC ABG pO2 Sodium Potassium Chloride Carbon Dioxide BUN Creatinine 2.8 H Glucose POC Glucose Lactic Acid Calcium Phosphorus Magnesium TIBC Ferritin Total Bilirubin 9.20 H Direct Bilirubin AST 49 H Ammonia Lactate Dehydrogenase NT-Pro-B Natriuret Pep Total Protein Albumin 3.8 L Lipase Vitamin B12 Urine WBC (Auto) Urine Creatinine Ur Creatinine 24 Hour Digoxin Crossmatch Allied health notes reviewed: nursing
--- NOTE | 2018-01-01 19:13 | Progress Note ---
Assessment and Plan Assessment and plan: --Cirrhosis with esophageal varices. Ascites s/p paracentesis done today follow fluid analysis --Coagulopathy; secondary to cirrhosis liver Received vitamin K subcutaneous 1 dose, FFP's --Acute blood loss anemia. Patient Received 2 units of PRBC , total 11 units during this admission EGD negative for esophageal variceal bleeding, Hb today 9.1 --Severe thrombocytopenia; probably secondary to cirrhosis --NSVT, resolved ; continue Lopressor --Septic/hypovolemic shock. On midodrine, --Sepsis;cultures negative --Rectal bleeding; resolved GI following --Toxic metabolic/hepatic encephalopathy. Hyperammonemia on admission. Resolved --Acute on chronic kidney disease : ATN/sepsis/hypotension. On hemodialysis,Outpatient dialysis per case management --Hepatorenal syndrome; on HD, nephrology following --Bilateral pleural effusion right greater than left. Plumbing And Heating Mechanic recommends giving FFP and possible thoracentesis if needed Plan of care Discussed with patient and at bedside today Plan of care reviewed with the and his and his nurse Possible discharge in 1-2 days if stable [facility] for further management I talked to Dr. [facility] transplant center updated patient's clinical status. History Interval history: patient Seen and evaluated medical records reviewed s/p paracentesis ,removal 370ml peritoneal fluid Fluid analysis pending No new complaints, Vital signs noted Hospitalist Physical - Constitutional Vitals: Temp Pulse Resp BP Pulse Ox 97.4 F L 71 19 94/56 97 01/01/18 05:58 01/01/18 10:00 01/01/18 10:00 01/01/18 10:33 01/01/18 10:00 General appearance: Present: no acute distress, cachectic, disheveled - EENT Eyes: Present: PERRL, EOM intact, scleral icterus - Neck Neck: Present: supple, normal ROM - Respiratory Respiratory effort: normal Respiratory: bilateral: diminished, rales, negative: rhonchi, wheezing - Cardiovascular Rhythm: regular Heart Sounds: Present: S1 & S2 - Extremities Extremities: no ischemia, No edema - Abdominal General gastrointestinal: soft, non-tender, non-distended, normal bowel sounds - Integumentary Integumentary: Present: clear, warm - Psychiatric Psychiatric: appropriate mood/affect, cooperative - Neurologic Neurologic: CNII-XII intact, moves all extremities Results - Labs CBC & Chem 7: 01/01/18 05:27 01/01/18 05:27 Labs: Laboratory Last Values WBC 7.5 K/mm3 (4.5-11.0) 01/01/18 05:27 RBC 2.69 M/mm3 (3.65-5.03) L 01/01/18 05:27 Hgb 9.1 gm/dl (11.8-15.2) L 01/01/18 05:27 Hct 25.1 % (35.5-45.6) L 01/01/18 05:27 MCV 93 fl (84-94) 01/01/18 05:27 MCH 34 pg (28-32) H 01/01/18 05:27 MCHC 36 % (32-34) H 01/01/18 05:27 RDW 17.5 % (13.2-15.2) H 01/01/18 05:27 Plt Count 64 K/mm3 (140-440) L 01/01/18 05:27 Lymph % (Auto) 12.5 % (13.4-35.0) L 01/01/18 05:27 [place] % (Auto) 14.4 % (0.0-7.3) H 01/01/18 05:27 Eos % (Auto) 1.0 % (0.0-4.3) 01/01/18 05:27 Baso % (Auto) 1.7 % (0.0-1.8) 01/01/18 05:27 Lymph # 0.9 K/mm3 (1.2-5.4) L 01/01/18 05:27 [place] # 1.1 K/mm3 (0.0-0.8) H 01/01/18 05:27 Eos # 0.1 K/mm3 (0.0-0.4) 01/01/18 05:27 Baso # 0.1 K/mm3 (0.0-0.1) 01/01/18 05:27 Add Manual Diff Complete 12/12/17 19:50 Total Counted 100 12/12/17 19:50 Seg Neutrophils % 70.4 % (40.0-70.0) H 01/01/18 05:27 Seg Neuts % (Manual) 87.0 % (40.0-70.0) H 12/12/17 19:50 Band Neutrophils % 0 % 12/12/17 19:50 Lymphocytes % (Manual) 5.0 % (13.4-35.0) L 12/12/17 19:50 Reactive Lymphs % (Man) 0 % 12/12/17 19:50 Monocytes % (Manual) 6.0 % (0.0-7.3) 12/12/17 19:50 Eosinophils % (Manual) 2.0 % (0.0-4.3) 12/12/17 19:50 Basophils % (Manual) 0 % (0.0-1.8) 12/12/17 19:50 Metamyelocytes % 0 % 12/12/17 19:50 Myelocytes % 0 % 12/12/17 19:50 Promyelocytes % 0 % 12/12/17 19:50 Blast Cells % 0 % 12/12/17 19:50 Nucleated RBC % Not Reportable 12/12/17 19:50 Seg Neutrophils # 5.3 K/mm3 (1.8-7.7) 01/01/18 05:27 Seg Neutrophils # Man 4.9 K/mm3 (1.8-7.7) 12/12/17 19:50 Band Neutrophils # 0.0 K/mm3 12/12/17 19:50 Lymphocytes # (Manual) 0.3 K/mm3 (1.2-5.4) L 12/12/17 19:50 Abs React Lymphs (Man) 0.0 K/mm3 12/12/17 19:50 Monocytes # (Manual) 0.3 K/mm3 (0.0-0.8) 12/12/17 19:50 Eosinophils # (Manual) 0.1 K/mm3 (0.0-0.4) 12/12/17 19:50 Basophils # (Manual) 0.0 K/mm3 (0.0-0.1) 12/12/17 19:50 Metamyelocytes # 0.0 K/mm3 12/12/17 19:50 Myelocytes # 0.0 K/mm3 12/12/17 19:50 Promyelocytes # 0.0 K/mm3 12/12/17 19:50 Blast Cells # 0.0 K/mm3 12/12/17 19:50 WBC Morphology Not Reportable 12/12/17 19:50 Hypersegmented Neuts Not Reportable 12/12/17 19:50 Hyposegmented Neuts Not Reportable 12/12/17 19:50 Hypogranular Neuts Not Reportable 12/12/17 19:50 Smudge Cells Not Reportable 12/12/17 19:50 Toxic Granulation Not Reportable 12/12/17 19:50 Toxic Vacuolation Not Reportable 12/12/17 19:50 Dohle Bodies Not Reportable 12/12/17 19:50 Pelger-Huet Anomaly Not Reportable 12/12/17 19:50 Eriberto Rods Not Reportable 12/12/17 19:50 Platelet Estimate Appears decreased 12/12/17 19:50 Clumped Platelets Not Reportable 12/12/17 19:50 Plt Clumps, EDTA Not Reportable 12/12/17 19:50 Large Platelets 1+ 12/12/17 19:50 Giant Platelets Not Reportable 12/12/17 19:50 Platelet Satelliting Not Reportable 12/12/17 19:50 Plt Morphology Comment Not Reportable 12/12/17 19:50 RBC Morphology Not Reportable 12/12/17 19:50 Dimorphic RBCs Not Reportable 12/12/17 19:50 Polychromasia Not Reportable 12/12/17 19:50 Hypochromasia 1+ 12/12/17 19:50 Poikilocytosis Not Reportable 12/12/17 19:50 Anisocytosis Not Reportable 12/12/17 19:50 Microcytosis Not Reportable 12/12/17 19:50 Macrocytosis Not Reportable 12/12/17 19:50 Spherocytes Not Reportable 12/12/17 19:50 Pappenheimer Bodies Not Reportable 12/12/17 19:50 Sickle Cells Not Reportable 12/12/17 19:50 Target Cells Not Reportable 12/12/17 19:50 Tear Drop Cells Not Reportable 12/12/17 19:50 Ovalocytes Not Reportable 12/12/17 19:50 Helmet Cells Not Reportable 12/12/17 19:50 [place] Bodies Not Reportable 12/12/17 19:50 [place] Rings Not Reportable 12/12/17 19:50 [place] Cells 1+ 12/12/17 19:50 Bite Cells Not Reportable 12/12/17 19:50 Crenated Cell Not Reportable 12/12/17 19:50 Elliptocytes Not Reportable 12/12/17 19:50 Acanthocytes (Spur) 1+ 12/12/17 19:50 Rouleaux Not Reportable 12/12/17 19:50 Hemoglobin C Crystals Not Reportable 12/12/17 19:50 Schistocytes Not Reportable 12/12/17 19:50 Malaria parasites Not Reportable 12/12/17 19:50 ESR 18 mm/Hr (0-20) 12/12/17 19:50 [place] Bodies Not Reportable 12/12/17 19:50 Hem Pathologist Commnt No 12/12/17 19:50 PT 22.1 Sec. (12.2-14.9) H 01/01/18 05:27 INR 1.81 (0.87-1.13) H 01/01/18 05:27 APTT 53.1 Sec. (24.2-36.6) H 12/28/17 09:00 Fibrinogen 128 mg/dl (211-480) L 12/12/17 19:50 D-Dimer 1215.06 ng/mlDDU (0-234) H 12/12/17 19:50 Factor VIII:C Activity 178 % (50-180) 12/12/17 20:30 POC ABG pH 7.452 (7.35-7.45) H 12/12/17 09:13 POC ABG pCO2 22.2 (35-45) L 12/12/17 09:13 POC ABG pO2 75 (80-105) L 12/12/17 09:13 POC ABG HCO3 15.5 12/12/17 09:13 POC ABG Total CO2 16 12/12/17 09:13 POC ABG O2 Sat 96 12/12/17 09:13 POC ABG Base Excess -8 12/12/17 09:13 FiO2 21 % 12/12/17 09:13 Sodium 141 mmol/L (137-145) 01/01/18 05:27 Potassium 3.9 mmol/L (3.6-5.0) 01/01/18 05:27 Chloride 99.3 mmol/L (98-107) 01/01/18 05:27 Carbon Dioxide 25 mmol/L (22-30) 01/01/18 05:27 Anion Gap 21 mmol/L 01/01/18 05:27 BUN 16 mg/dL (9-20) 01/01/18 05:27 Creatinine 2.8 mg/dL (0.8-1.5) H 01/01/18 05:27 Estimated GFR 28 ml/min 01/01/18 05:27 BUN/Creatinine Ratio 6 % 01/01/18 05:27 Glucose 98 mg/dL (75-100) 01/01/18 05:27 POC Glucose 113 (70-105) H 12/29/17 07:35 Lactic Acid 3.90 mmol/L (0.7-2.0) H* 12/14/17 17:26 Calcium 9.0 mg/dL (8.4-10.2) 01/01/18 05:27 Phosphorus 2.40 mg/dL (2.5-4.5) L 12/26/17 05:59 Magnesium 2.00 mg/dL (1.7-2.3) 12/31/17 12:59 Iron 78 ug/dL (49-181) 12/27/17 06:34 TIBC 77 mcg/dL (250-450) L 12/27/17 06:34 Ferritin > 2000.0 ng/mL (13.0-400.0) H 12/27/17 06:34 Total Bilirubin 9.20 mg/dL (0.1-1.2) H 01/01/18 05:27 Direct Bilirubin 1.6 mg/dL (0-0.2) H 12/12/17 19:50 Indirect Bilirubin 2.5 mg/dL 12/12/17 19:50 AST 49 units/L (5-40) H 01/01/18 05:27 ALT 23 units/L (7-56) 01/01/18 05:27 Alkaline Phosphatase 72 units/L (35-129) 01/01/18 05:27 Ammonia 53.0 umol/L (25-60) 12/18/17 13:10 Lactate Dehydrogenase 302 units/L (91-180) H 12/27/17 06:34 Total Creatine Kinase 64 units/L (55-170) 12/10/17 23:14 C-Reactive Protein 0.30 mg/dL (0.00-1.30) 12/13/17 14:03 NT-Pro-B Natriuret Pep 9558 pg/mL (0-900) H 12/10/17 23:14 Total Protein 7.3 g/dL (6.3-8.2) 01/01/18 05:27 Albumin 3.8 g/dL (3.9-5) L 01/01/18 05:27 Albumin/Globulin Ratio 1.1 % 01/01/18 05:27 Lipase 7 units/L (13-60) L 12/10/17 23:14 Vitamin B12 1465 pg/mL (211-911) H 12/12/17 19:50 Folate 14.04 ng/mL (7.3-26.0) 12/12/17 19:50 TSH 2.560 mlU/mL (0.270-4.200) 12/16/17 12:37 Total Cortisol 8.6 mcg/dL () 12/16/17 12:37 Urine Color Yellow (Yellow) 12/10/17 23:05 Urine Turbidity Clear (Clear) 12/10/17 23:05 Urine pH 5.0 (5.0-7.0) 12/10/17 23:05 Ur Specific Cos Cob 1.013 (1.003-1.030) 12/10/17 23:05 Urine Protein <15 mg/dl mg/dL (Negative) 12/10/17 23:05 Urine Glucose (UA) Neg mg/dL (Negative) 12/10/17 23:05 Urine Ketones Neg mg/dL (Negative) 12/10/17 23:05 Urine Blood Neg (Negative) 12/10/17 23:05 Urine Nitrite Neg (Negative) 12/10/17 23:05 Ur Reducing Substances Not Reportable 12/10/17 23:05 Urine Bilirubin Neg (Negative) 12/10/17 23:05 Urine Ictotest Not Reportable 12/10/17 23:05 Urine Urobilinogen < 2.0 mg/dL (<2.0) 12/10/17 23:05 Ur Leukocyte Esterase Sm (Negative) 12/10/17 23:05 Urine WBC (Auto) 10.0 /HPF (0.0-6.0) H 12/10/17 23:05 Urine RBC (Auto) 4.0 /HPF (0.0-6.0) 12/10/17 23:05 U Epithel Cells (Auto) < 1.0 /HPF (0-13.0) 12/10/17 23:05 Urine Mucus Few /HPF 12/10/17 23:05 Urine Total Volume 250 12/14/17 Unknown Urine Creatinine 122.5 mg/dL (0.1-20.0) H 12/14/17 Unknown Ur Creatinine 24 Hour 0.3 (0.8-2.8) L 12/14/17 Unknown Fluid Type Peritoneal 12/31/17 Unknown Fluid Color Red 12/31/17 Unknown Fluid Appearance Cloudy 12/31/17 Unknown Fluid WBC 55 /mm3 12/31/17 Unknown Fluid RBC 98864 /mm3 12/31/17 Unknown Fluid Seg Neutrophils 6.0 % 12/31/17 Unknown Fluid Lymphocytes 48.0 % 12/31/17 Unknown Fluid Monocytes 46.0 % 12/31/17 Unknown Digoxin 0.4 ng/mL (0.9-2.0) L 12/21/17 05:26 Hepatitis A IgM Ab Non-reactive (NonReactive) 12/12/17 19:50 Hep Bs Antigen Non-reactive (Negative) 12/12/17 19:50 Hep B Core IgM Ab Non-reactive (NonReactive) 12/12/17 19:50 Hepatitis C Antibody Non-reactive (NonReactive) 12/12/17 19:50 Miscellaneous Test Flexitest 1 12/12/17 06:42 Blood Type A NEGATIVE 12/30/17 08:44 Antibody Screen Negative 12/30/17 08:44 Direct Antiglob Test Negative 12/12/17 20:41 JOANNE, Poly Interpret Negative 12/12/17 20:41 Crossmatch See Detail 12/30/17 08:44
--- NOTE | 2018-01-02 08:38 | Progress Note ---
Subjective Principal diagnosis: anemia, cirrhosis Interval history: Patient was seen today for follow-up on multiple renal related issues Also seen on hemodialysis treatment today Blood pressure in the low 90 range HEENT: [place] dry Neck: Supple no thyromegaly no JVD Chest: Clear to auscultation anteriorly no crackles or wheezes Central venous catheter site unremarkable Heart: Regular rate and rhythm S1-S2 heard no S3-S4 Abdomen: Soft nontender dry skin and no organomegaly Extremity: Less than 1+ edema dry skin no petechial rash Musculoskeletal: No joint effusion noted Assessment and plan: Acute kidney injury: Patient is currently in hemodialysis. Hydrate, and saw the patient on hemodialysis discussed with dialysis nurse due to relatively low blood pressure ultrafiltration goals were kept around 800-1000 mL or lower discussed with dialysis nurse, changed dialysis sodium to 145 bicarbonate to 38 temperature is around 35.5 Ultrasound normal echotexture ascites present Not suitable for fistula creation Also discussed with dialysis nurse to give him albumin due to liver disease hypoalbuminemia third spacing of fluid this may possibly stabilize him during dialysis Anemia severe multi bacterial in etiology at this time he is on erythropoietin 20,000 units with hemodialysis Liver disease cirrhosis: Patient is doing poorly overall his overall prognosis does not appear to be guarded encephalopathy toxic metabolic, also due to renal failure hepatic failure currently on rifaximin followed by GI His overall prognosis is extremely poor have had a long discussion with for the last 2 days during this admission and she understand the seriousness of her health issues also told her that with his low blood pressure he may not be stable on dialysis and if needed we may need to stop, his mortality risk is high Hypotension currently on midodrine high-dose 10 mg 3 times a day: Will also check cortisol level in his case as well His blood pressure continues to be low I would not consider him safe for dialysis treatment in that case hospice may be considered Continue to monitor labs supportive care Objective - Vital Signs Vital signs: Vital Signs - 12hr 01/01/18 01/01/18 01/01/18 21:09 22:00 23:54 Temperature 98.5 F Pulse Rate 74 Respiratory 17 Rate Blood Pressure 101/63 O2 Sat by Pulse 98 96 97 Oximetry 01/02/18 04:15 Temperature 98.1 F Pulse Rate 71 Respiratory 16 Rate Blood Pressure 98/62 O2 Sat by Pulse 94 Oximetry - Lab 01/01/18 05:27 01/01/18 05:27 Most recent lab results Calcium 9.0 mg/dL (8.4-10.2) 01/01/18 05:27 Phosphorus 2.40 mg/dL (2.5-4.5) L 12/26/17 05:59 Magnesium 2.00 mg/dL (1.7-2.3) 12/31/17 12:59 Urine Creatinine 122.5 mg/dL (0.1-20.0) H 12/14/17 Unknown
[2018-01-02] MEDS: ALBURX 25% (ALBUMIN) IV PRN (09:59)
--- NOTE | 2018-01-02 14:10 | Progress Note ---
Assessment and Plan Sepsis, possibly SBP Acute encephalopathy Severe anemia Lactic acidosis, multifactorial Cirrhosis with esophageal varices Rectal bleeding Coagulopathy Metabolic acidosis, multifactorial Respiratory alkalosis Nonoliguric CARMEN secondary to prerenal azotemia due to hypoperfusion ATN vs HRS Moderate protein calorie malnutrition - Thoracentesis ordered - will work on INR - continue HD/UF per nephrology prescription (should also reduce pulmonary volume overload) - continue conservative volume management at this point now off vasopressors - continue prn H&H; Transfuse PRBC's for Hb < 7.0 (or as per unattended ground sensor specialist) - prn analgesia - 2D ECHO with EF 40-45%; no overt pulm HTN - s/p antibiotic course for sepsis - continue Aspiration precautions - enteral nutrition as tolerated (s/p small bowel feeding tube) - continue chronic home medications, including rifaximin and midodrine - Avoid nephrotoxics and adjust all medications for GFR - GI evaluation ongoing; octreotide if signs of active bleeding; continue lactulose but frequency reduced to bid - continue PPI therapy per GI recs - paracentesis prn per GI recs - Follow up cultures (NGTD) - SCDs for VTE prophylaxis in view of GIB and coagulopathy - Supportive transfusions - Nutrition consult placed - PT/OT consult placed - continue to monitor closely on telemetry ..... 25' Subjective Date of service: 01/02/18 Principal diagnosis: CARMEN on CKD; Acute Encephalopathy; Sepsis Syndrome; Anemia Interval history: Patient is seen today for: CARMEN on CKD; Acute Encephalopathy; Sepsis Syndrome; Anemia Seen and examined at bedside; 24hour events reviewed; nursing and respiratory care staff consulted; no adverse overnight events reported to me; CXR with persistent bilateral pleural effusions and will need thoracentesis; remains on supplemental oxygen; No N/V/F/C; in room Objective Vital Signs - 12hr 01/02/18 01/02/18 01/02/18 04:15 08:33 08:50 Temperature 98.1 F 98.2 F 98.1 F Pulse Rate 71 66 72 Respiratory 16 18 16 Rate Blood Pressure 98/62 91/58 92/61 O2 Sat by Pulse 94 98 Oximetry 01/02/18 01/02/18 01/02/18 08:55 09:00 09:15 Temperature Pulse Rate 70 73 74 Respiratory Rate Blood Pressure 87/57 87/54 85/51 O2 Sat by Pulse Oximetry 01/02/18 01/02/18 01/02/18 09:30 09:45 10:00 Temperature Pulse Rate 74 71 74 Respiratory Rate Blood Pressure 81/52 78/54 78/48 O2 Sat by Pulse 99 Oximetry 01/02/18 01/02/18 01/02/18 10:15 10:30 10:45 Temperature Pulse Rate 74 71 71 Respiratory Rate Blood Pressure 77/48 89/50 80/51 O2 Sat by Pulse Oximetry 01/02/18 01/02/18 01/02/18 11:00 11:15 11:30 Temperature Pulse Rate 71 73 68 Respiratory Rate Blood Pressure 77/52 77/41 92/54 O2 Sat by Pulse Oximetry 01/02/18 01/02/18 11:45 12:12 Temperature 98.1 F Pulse Rate 68 67 Respiratory 16 Rate Blood Pressure 92/57 94/54 O2 Sat by Pulse Oximetry Constitutional: alert, other (chronically ill looking elderly AAM, normocephalic and atraumatic) Eyes: non-icteric ENT: oropharynx moist, other (mallampati 2) Neck: supple, no lymphadenopathy, no JVD, other (no thyromegaly) Effort: normal Ascultation: Bilateral: diminished breath sounds (bases), rhonchi (scant) Percussion: Right: dull (base), Bilateral: not dull Cardiovascular: regular rate and rhythm, other (S1,S2, no murmurms, gallops or rubs) Gastrointestinal: normoactive bowel sounds, soft, non-tender, other (distended) Integumentary: rash Extremities: no cyanosis, no edema, pulses normal, no ischemia or petechiae, cool Neurologic: non-focal exam, pupils equal and round, motor strength normal and ( weak), other (alert, awake) Psychiatric: other (normal affect, confusion) CBC and BMP: 01/06/18 02:35 01/06/18 02:35 ABG, PT/INR, D-dimer: ABG POC ABG pH 7.452 (7.35-7.45) H 12/12/17 09:13 POC ABG pCO2 22.2 (35-45) L 12/12/17 09:13 POC ABG pO2 75 (80-105) L 12/12/17 09:13 POC ABG HCO3 15.5 12/12/17 09:13 POC ABG Total CO2 16 12/12/17 09:13 POC ABG O2 Sat 96 12/12/17 09:13 PT/INR, D-dimer PT 22.1 Sec. (12.2-14.9) H 01/01/18 05:27 INR 1.81 (0.87-1.13) H 01/01/18 05:27 D-Dimer 1215.06 ng/mlDDU (0-234) H 12/12/17 19:50 Abnormal lab findings: Abnormal Labs 12/10/17 12/10/17 12/10/17 13:14 13:14 23:05 RBC 2.31 L Hgb 7.3 L Hct 21.5 L MCV MCH MCHC RDW 17.7 H Plt Count 61 L Lymph % (Auto) [place] % (Auto) Baso % (Auto) Lymph # [place] # Seg Neutrophils % Seg Neuts % (Manual) 81.0 H Lymphocytes % (Manual) 11.0 L Lymphocytes # (Manual) 0.6 L PT INR APTT Fibrinogen D-Dimer POC ABG pH POC ABG pCO2 POC ABG pO2 Sodium 136 L Potassium 5.2 H Chloride Carbon Dioxide 15 L BUN 47 H Creatinine 5.2 H Glucose 127 H POC Glucose Lactic Acid Calcium Phosphorus Magnesium TIBC Ferritin Total Bilirubin 3.50 H Direct Bilirubin AST 71 H Ammonia Lactate Dehydrogenase NT-Pro-B Natriuret Pep Total Protein Albumin 2.6 L Lipase Vitamin B12 Urine WBC (Auto) 10.0 H Urine Creatinine Ur Creatinine 24 Hour Digoxin Crossmatch 12/10/17 12/10/17 12/10/17 23:14 23:14 23:14 RBC Hgb Hct MCV MCH MCHC RDW Plt Count Lymph % (Auto) [place] % (Auto) Baso % (Auto) Lymph # [place] # Seg Neutrophils % Seg Neuts % (Manual) Lymphocytes % (Manual) Lymphocytes # (Manual) PT INR APTT Fibrinogen D-Dimer POC ABG pH POC ABG pCO2 POC ABG pO2 Sodium Potassium Chloride Carbon Dioxide BUN Creatinine Glucose POC Glucose Lactic Acid 2.40 H* Calcium Phosphorus Magnesium TIBC Ferritin Total Bilirubin Direct Bilirubin AST Ammonia 134.0 H Lactate Dehydrogenase NT-Pro-B Natriuret Pep 9558 H Total Protein Albumin Lipase Vitamin B12 Urine WBC (Auto) Urine Creatinine Ur Creatinine 24 Hour Digoxin Crossmatch 12/10/17 12/11/17 12/11/17 23:14 00:29 03:33 RBC Hgb Hct MCV MCH MCHC RDW Plt Count Lymph % (Auto) [place] % (Auto) Baso % (Auto) Lymph # [place] # Seg Neutrophils % Seg Neuts % (Manual) Lymphocytes % (Manual) Lymphocytes # (Manual) PT INR APTT Fibrinogen D-Dimer POC ABG pH POC ABG pCO2 POC ABG pO2 Sodium Potassium Chloride Carbon Dioxide BUN Creatinine Glucose POC Glucose Lactic Acid 2.80 H* 3.00 H* Calcium Phosphorus Magnesium TIBC Ferritin Total Bilirubin Direct Bilirubin AST Ammonia Lactate Dehydrogenase NT-Pro-B Natriuret Pep Total Protein Albumin Lipase 7 L Vitamin B12 Urine WBC (Auto) Urine Creatinine Ur Creatinine 24 Hour Digoxin Crossmatch 12/11/17 12/11/17 12/11/17 04:08 04:34 04:34 RBC Hgb Hct MCV MCH MCHC RDW Plt Count Lymph % (Auto) [place] % (Auto) Baso % (Auto) Lymph # [place] # Seg Neutrophils % Seg Neuts % (Manual) Lymphocytes % (Manual) Lymphocytes # (Manual) PT 19.1 H INR 1.51 H APTT 45.7 H Fibrinogen D-Dimer POC ABG pH POC ABG pCO2 POC ABG pO2 Sodium Potassium Chloride Carbon Dioxide BUN Creatinine Glucose POC Glucose 113 H Lactic Acid 3.10 H* Calcium Phosphorus Magnesium TIBC Ferritin Total Bilirubin Direct Bilirubin AST Ammonia Lactate Dehydrogenase NT-Pro-B Natriuret Pep Total Protein Albumin Lipase Vitamin B12 Urine WBC (Auto) Urine Creatinine Ur Creatinine 24 Hour Digoxin Crossmatch 12/11/17 12/11/17 12/11/17 06:46 07:26 09:42 RBC Hgb Hct MCV MCH MCHC RDW Plt Count Lymph % (Auto) [place] % (Auto) Baso % (Auto) Lymph # [place] # Seg Neutrophils % Seg Neuts % (Manual) Lymphocytes % (Manual) Lymphocytes # (Manual) PT INR APTT Fibrinogen D-Dimer POC ABG pH POC ABG pCO2 POC ABG pO2 Sodium Potassium Chloride Carbon Dioxide BUN Creatinine Glucose POC Glucose Lactic Acid 2.70 H* 2.80 H* 2.90 H* Calcium Phosphorus Magnesium TIBC Ferritin Total Bilirubin Direct Bilirubin AST Ammonia Lactate Dehydrogenase NT-Pro-B Natriuret Pep Total Protein Albumin Lipase Vitamin B12 Urine WBC (Auto) Urine Creatinine Ur Creatinine 24 Hour Digoxin Crossmatch 12/11/17 12/11/17 12/11/17 13:12 14:06 23:14 RBC Hgb Hct MCV MCH MCHC RDW Plt Count Lymph % (Auto) [place] % (Auto) Baso % (Auto) Lymph # [place] # Seg Neutrophils % Seg Neuts % (Manual) Lymphocytes % (Manual) Lymphocytes # (Manual) PT INR APTT Fibrinogen D-Dimer POC ABG pH POC ABG pCO2 POC ABG pO2 Sodium Potassium Chloride Carbon Dioxide BUN Creatinine Glucose POC Glucose Lactic Acid 3.10 H* 3.10 H* 3.70 H* Calcium Phosphorus Magnesium TIBC Ferritin Total Bilirubin Direct Bilirubin AST Ammonia Lactate Dehydrogenase NT-Pro-B Natriuret Pep Total Protein Albumin Lipase Vitamin B12 Urine WBC (Auto) Urine Creatinine Ur Creatinine 24 Hour Digoxin Crossmatch 12/11/17 12/12/17 12/12/17 23:23 03:41 03:41 RBC 2.17 L Hgb 7.0 L Hct 19.9 L* MCV MCH 33 H MCHC 35 H RDW 17.7 H Plt Count 62 L Lymph % (Auto) [place] % (Auto) Baso % (Auto) Lymph # [place] # Seg Neutrophils % Seg Neuts % (Manual) 91.0 H Lymphocytes % (Manual) 3.0 L Lymphocytes # (Manual) 0.2 L PT INR APTT Fibrinogen D-Dimer POC ABG pH POC ABG pCO2 POC ABG pO2 Sodium Potassium 5.4 H Chloride Carbon Dioxide 12 L BUN 47 H Creatinine 4.5 H Glucose 103 H POC Glucose Lactic Acid Calcium 8.0 L Phosphorus Magnesium TIBC Ferritin Total Bilirubin 3.60 H Direct Bilirubin AST 58 H Ammonia Lactate Dehydrogenase NT-Pro-B Natriuret Pep Total Protein 5.9 L Albumin 2.5 L Lipase Vitamin B12 Urine WBC (Auto) Urine Creatinine Ur Creatinine 24 Hour Digoxin Crossmatch See Detail 12/12/17 12/12/17 12/12/17 07:00 09:13 17:55 RBC 2.06 L Hgb 6.6 L Hct 18.6 L* MCV MCH MCHC 36 H RDW 17.8 H Plt Count 77 L Lymph % (Auto) [place] % (Auto) Baso % (Auto) Lymph # [place] # Seg Neutrophils % Seg Neuts % (Manual) Lymphocytes % (Manual) Lymphocytes # (Manual) PT INR APTT Fibrinogen D-Dimer POC ABG pH 7.452 H POC ABG pCO2 22.2 L POC ABG pO2 75 L Sodium Potassium Chloride Carbon Dioxide BUN Creatinine Glucose POC Glucose 119 H Lactic Acid Calcium Phosphorus Magnesium TIBC Ferritin Total Bilirubin Direct Bilirubin AST Ammonia Lactate Dehydrogenase NT-Pro-B Natriuret Pep Total Protein Albumin Lipase Vitamin B12 Urine WBC (Auto) Urine Creatinine Ur Creatinine 24 Hour Digoxin Crossmatch 12/12/17 12/12/17 12/12/17 19:50 19:50 19:50 RBC 2.40 L Hgb 7.8 L Hct 21.3 L MCV MCH 33 H MCHC 37 H RDW 16.1 H Plt Count 99 L Lymph % (Auto) [place] % (Auto) Baso % (Auto) Lymph # [place] # Seg Neutrophils % Seg Neuts % (Manual) 87.0 H Lymphocytes % (Manual) 5.0 L Lymphocytes # (Manual) 0.3 L PT 21.9 H INR 1.79 H APTT 41.5 H Fibrinogen 128 L D-Dimer 1215.06 H POC ABG pH POC ABG pCO2 POC ABG pO2 Sodium Potassium Chloride Carbon Dioxide BUN Creatinine Glucose POC Glucose Lactic Acid Calcium Phosphorus Magnesium TIBC Ferritin Total Bilirubin 4.10 H Direct Bilirubin 1.6 H AST Ammonia Lactate Dehydrogenase NT-Pro-B Natriuret Pep Total Protein Albumin Lipase Vitamin B12 Urine WBC (Auto) Urine Creatinine Ur Creatinine 24 Hour Digoxin Crossmatch 12/12/17 12/12/17 12/12/17 19:50 19:50 23:46 RBC Hgb Hct MCV MCH MCHC RDW Plt Count Lymph % (Auto) [place] % (Auto) Baso % (Auto) Lymph # [place] # Seg Neutrophils % Seg Neuts % (Manual) Lymphocytes % (Manual) Lymphocytes # (Manual) PT INR APTT Fibrinogen D-Dimer POC ABG pH POC ABG pCO2 POC ABG pO2 Sodium Potassium Chloride Carbon Dioxide BUN Creatinine Glucose POC Glucose 110 H Lactic Acid Calcium Phosphorus Magnesium TIBC Ferritin Total Bilirubin Direct Bilirubin AST Ammonia Lactate Dehydrogenase 213 H NT-Pro-B Natriuret Pep Total Protein Albumin Lipase Vitamin B12 1465 H Urine WBC (Auto) Urine Creatinine Ur Creatinine 24 Hour Digoxin Crossmatch 12/13/17 12/13/17 12/13/17 04:00 04:00 05:12 RBC 2.32 L Hgb 7.4 L Hct 20.8 L MCV MCH MCHC 36 H RDW 16.1 H Plt Count 134 L Lymph % (Auto) 13.1 L [place] % (Auto) 7.9 H Baso % (Auto) Lymph # 0.8 L [place] # Seg Neutrophils % 76.3 H Seg Neuts % (Manual) Lymphocytes % (Manual) Lymphocytes # (Manual) PT INR APTT Fibrinogen D-Dimer POC ABG pH POC ABG pCO2 POC ABG pO2 Sodium Potassium Chloride Carbon Dioxide 21 L D BUN 48 H Creatinine 4.6 H Glucose 104 H POC Glucose 134 H Lactic Acid Calcium 8.1 L Phosphorus Magnesium TIBC Ferritin Total Bilirubin 4.70 H Direct Bilirubin AST 43 H Ammonia Lactate Dehydrogenase NT-Pro-B Natriuret Pep Total Protein 5.8 L Albumin 3.1 L Lipase Vitamin B12 Urine WBC (Auto) Urine Creatinine Ur Creatinine 24 Hour Digoxin Crossmatch 12/13/17 12/13/17 12/13/17 08:45 12:25 14:03 RBC Hgb Hct MCV MCH MCHC RDW Plt Count Lymph % (Auto) [place] % (Auto) Baso % (Auto) Lymph # [place] # Seg Neutrophils % Seg Neuts % (Manual) Lymphocytes % (Manual) Lymphocytes # (Manual) PT 20.5 H INR 1.65 H APTT Fibrinogen D-Dimer POC ABG pH POC ABG pCO2 POC ABG pO2 Sodium Potassium Chloride Carbon Dioxide BUN Creatinine Glucose POC Glucose 112 H Lactic Acid 3.70 H* Calcium Phosphorus Magnesium TIBC Ferritin Total Bilirubin Direct Bilirubin AST Ammonia Lactate Dehydrogenase NT-Pro-B Natriuret Pep Total Protein Albumin Lipase Vitamin B12 Urine WBC (Auto) Urine Creatinine Ur Creatinine 24 Hour Digoxin Crossmatch 12/13/17 12/13/17 12/13/17 14:03 18:52 21:09 RBC Hgb Hct MCV MCH MCHC RDW Plt Count Lymph % (Auto) [place] % (Auto) Baso % (Auto) Lymph # [place] # Seg Neutrophils % Seg Neuts % (Manual) Lymphocytes % (Manual) Lymphocytes # (Manual) PT INR APTT Fibrinogen D-Dimer POC ABG pH POC ABG pCO2 POC ABG pO2 Sodium Potassium Chloride Carbon Dioxide BUN Creatinine Glucose POC Glucose 110 H Lactic Acid 4.00 H* Calcium Phosphorus Magnesium TIBC Ferritin Total Bilirubin Direct Bilirubin AST Ammonia 87.0 H Lactate Dehydrogenase NT-Pro-B Natriuret Pep Total Protein Albumin Lipase Vitamin B12 Urine WBC (Auto) Urine Creatinine Ur Creatinine 24 Hour Digoxin Crossmatch 12/14/17 12/14/17 12/14/17 00:25 03:30 03:30 RBC 2.29 L Hgb 7.3 L Hct 20.7 L MCV MCH MCHC 35 H RDW 16.2 H Plt Count 84 L Lymph % (Auto) 12.8 L [place] % (Auto) 8.3 H Baso % (Auto) Lymph # 0.6 L [place] # Seg Neutrophils % 77.2 H Seg Neuts % (Manual) Lymphocytes % (Manual) Lymphocytes # (Manual) PT INR APTT Fibrinogen D-Dimer POC ABG pH POC ABG pCO2 POC ABG pO2 Sodium Potassium Chloride 96.1 L Carbon Dioxide BUN 48 H Creatinine 4.6 H Glucose 125 H POC Glucose 131 H Lactic Acid Calcium 7.9 L Phosphorus Magnesium TIBC Ferritin Total Bilirubin 4.70 H Direct Bilirubin AST 45 H Ammonia Lactate Dehydrogenase NT-Pro-B Natriuret Pep Total Protein 6.1 L Albumin 3.4 L Lipase Vitamin B12 Urine WBC (Auto) Urine Creatinine Ur Creatinine 24 Hour Digoxin Crossmatch 12/14/17 12/14/17 12/14/17 05:31 12:26 12:55 RBC Hgb Hct MCV MCH MCHC RDW Plt Count Lymph % (Auto) [place] % (Auto) Baso % (Auto) Lymph # [place] # Seg Neutrophils % Seg Neuts % (Manual) Lymphocytes % (Manual) Lymphocytes # (Manual) PT INR APTT Fibrinogen D-Dimer POC ABG pH POC ABG pCO2 POC ABG pO2 Sodium Potassium Chloride Carbon Dioxide BUN Creatinine Glucose POC Glucose 125 H 117 H Lactic Acid 3.40 H* Calcium Phosphorus Magnesium TIBC Ferritin Total Bilirubin Direct Bilirubin AST Ammonia Lactate Dehydrogenase NT-Pro-B Natriuret Pep Total Protein Albumin Lipase Vitamin B12 Urine WBC (Auto) Urine Creatinine Ur Creatinine 24 Hour Digoxin Crossmatch 12/14/17 12/14/17 12/14/17 15:26 17:26 18:07 RBC Hgb Hct MCV MCH MCHC RDW Plt Count Lymph % (Auto) [place] % (Auto) Baso % (Auto) Lymph # [place] # Seg Neutrophils % Seg Neuts % (Manual) Lymphocytes % (Manual) Lymphocytes # (Manual) PT INR APTT Fibrinogen D-Dimer POC ABG pH POC ABG pCO2 POC ABG pO2 Sodium Potassium Chloride Carbon Dioxide BUN Creatinine Glucose POC Glucose 143 H Lactic Acid 4.00 H* 3.90 H* Calcium Phosphorus Magnesium TIBC Ferritin Total Bilirubin Direct Bilirubin AST Ammonia Lactate Dehydrogenase NT-Pro-B Natriuret Pep Total Protein Albumin Lipase Vitamin B12 Urine WBC (Auto) Urine Creatinine Ur Creatinine 24 Hour Digoxin Crossmatch 12/14/17 12/15/17 12/15/17 Unknown 00:08 04:51 RBC 2.27 L Hgb 7.3 L Hct 20.7 L MCV MCH MCHC 35 H RDW 16.1 H Plt Count 92 L Lymph % (Auto) 12.5 L [place] % (Auto) 10.4 H Baso % (Auto) Lymph # 0.6 L [place] # Seg Neutrophils % 74.7 H Seg Neuts % (Manual) Lymphocytes % (Manual) Lymphocytes # (Manual) PT INR APTT Fibrinogen D-Dimer POC ABG pH POC ABG pCO2 POC ABG pO2 Sodium Potassium Chloride Carbon Dioxide BUN Creatinine Glucose POC Glucose 124 H Lactic Acid Calcium Phosphorus Magnesium TIBC Ferritin Total Bilirubin Direct Bilirubin AST Ammonia Lactate Dehydrogenase NT-Pro-B Natriuret Pep Total Protein Albumin Lipase Vitamin B12 Urine WBC (Auto) Urine Creatinine 122.5 H Ur Creatinine 24 Hour 0.3 L Digoxin Crossmatch 12/15/17 12/15/17 12/15/17 04:51 04:51 05:56 RBC Hgb Hct MCV MCH MCHC RDW Plt Count Lymph % (Auto) [place] % (Auto) Baso % (Auto) Lymph # [place] # Seg Neutrophils % Seg Neuts % (Manual) Lymphocytes % (Manual) Lymphocytes # (Manual) PT INR APTT Fibrinogen D-Dimer POC ABG pH POC ABG pCO2 POC ABG pO2 Sodium Potassium 3.5 L Chloride 92.6 L Carbon Dioxide BUN 50 H Creatinine 4.8 H Glucose 141 H POC Glucose 143 H Lactic Acid Calcium 7.9 L Phosphorus Magnesium TIBC Ferritin Total Bilirubin 3.60 H Direct Bilirubin AST 44 H Ammonia 24.0 L Lactate Dehydrogenase NT-Pro-B Natriuret Pep Total Protein 6.1 L Albumin 3.8 L Lipase Vitamin B12 Urine WBC (Auto) Urine Creatinine Ur Creatinine 24 Hour Digoxin Crossmatch 12/15/17 12/15/17 12/16/17 12:17 23:10 07:04 RBC Hgb Hct MCV MCH MCHC RDW Plt Count Lymph % (Auto) [place] % (Auto) Baso % (Auto) Lymph # [place] # Seg Neutrophils % Seg Neuts % (Manual) Lymphocytes % (Manual) Lymphocytes # (Manual) PT INR APTT Fibrinogen D-Dimer POC ABG pH POC ABG pCO2 POC ABG pO2 Sodium Potassium Chloride Carbon Dioxide BUN Creatinine Glucose POC Glucose 127 H 157 H 147 H Lactic Acid Calcium Phosphorus Magnesium TIBC Ferritin Total Bilirubin Direct Bilirubin AST Ammonia Lactate Dehydrogenase NT-Pro-B Natriuret Pep Total Protein Albumin Lipase Vitamin B12 Urine WBC (Auto) Urine Creatinine Ur Creatinine 24 Hour Digoxin Crossmatch 12/16/17 12/16/17 12/16/17 11:35 12:37 12:37 RBC 2.21 L Hgb 6.9 L Hct 20.2 L MCV MCH MCHC RDW 16.2 H Plt Count 50 L Lymph % (Auto) [place] % (Auto) 9.7 H Baso % (Auto) Lymph # 0.7 L [place] # Seg Neutrophils % 73.1 H Seg Neuts % (Manual) Lymphocytes % (Manual) Lymphocytes # (Manual) PT INR APTT Fibrinogen D-Dimer POC ABG pH POC ABG pCO2 POC ABG pO2 Sodium Potassium Chloride 88.2 L Carbon Dioxide BUN 52 H Creatinine 5.5 H Glucose 107 H POC Glucose 134 H Lactic Acid Calcium 7.8 L Phosphorus Magnesium TIBC Ferritin Total Bilirubin 2.60 H Direct Bilirubin AST 49 H Ammonia Lactate Dehydrogenase NT-Pro-B Natriuret Pep Total Protein Albumin 3.6 L Lipase Vitamin B12 Urine WBC (Auto) Urine Creatinine Ur Creatinine 24 Hour Digoxin Crossmatch 12/16/17 12/16/17 12/16/17 18:06 20:45 23:34 RBC Hgb Hct MCV MCH MCHC RDW Plt Count Lymph % (Auto) [place] % (Auto) Baso % (Auto) Lymph # [place] # Seg Neutrophils % Seg Neuts % (Manual) Lymphocytes % (Manual) Lymphocytes # (Manual) PT INR APTT Fibrinogen D-Dimer POC ABG pH POC ABG pCO2 POC ABG pO2 Sodium Potassium Chloride Carbon Dioxide BUN Creatinine Glucose POC Glucose 133 H 139 H Lactic Acid Calcium Phosphorus Magnesium TIBC Ferritin Total Bilirubin Direct Bilirubin AST Ammonia Lactate Dehydrogenase NT-Pro-B Natriuret Pep Total Protein Albumin Lipase Vitamin B12 Urine WBC (Auto) Urine Creatinine Ur Creatinine 24 Hour Digoxin Crossmatch See Detail 12/17/17 12/17/17 12/17/17 05:27 05:27 06:11 RBC 2.10 L Hgb 6.6 L Hct 19.2 L* MCV MCH MCHC 35 H RDW 16.5 H Plt Count 65 L Lymph % (Auto) 12.6 L [place] % (Auto) 9.6 H Baso % (Auto) Lymph # 0.7 L [place] # Seg Neutrophils % 75.8 H Seg Neuts % (Manual) Lymphocytes % (Manual) Lymphocytes # (Manual) PT INR APTT Fibrinogen D-Dimer POC ABG pH POC ABG pCO2 POC ABG pO2 Sodium 135 L Potassium 3.4 L Chloride 84.9 L Carbon Dioxide 33 H BUN 53 H Creatinine 5.9 H Glucose POC Glucose 110 H Lactic Acid Calcium 7.7 L Phosphorus Magnesium TIBC Ferritin Total Bilirubin 2.70 H Direct Bilirubin AST 50 H Ammonia Lactate Dehydrogenase NT-Pro-B Natriuret Pep Total Protein 6.2 L Albumin 3.7 L Lipase Vitamin B12 Urine WBC (Auto) Urine Creatinine Ur Creatinine 24 Hour Digoxin Crossmatch 12/17/17 12/18/17 12/18/17 09:34 00:05 05:21 RBC 3.35 L Hgb 10.3 L D Hct 30.4 L D MCV MCH MCHC RDW 16.2 H Plt Count 57 L Lymph % (Auto) 8.0 L [place] % (Auto) 10.9 H Baso % (Auto) Lymph # 0.6 L [place] # Seg Neutrophils % 80.2 H Seg Neuts % (Manual) Lymphocytes % (Manual) Lymphocytes # (Manual) PT 23.9 H INR 1.99 H APTT Fibrinogen D-Dimer POC ABG pH POC ABG pCO2 POC ABG pO2 Sodium Potassium Chloride Carbon Dioxide BUN Creatinine Glucose POC Glucose 132 H Lactic Acid Calcium Phosphorus Magnesium TIBC Ferritin Total Bilirubin Direct Bilirubin AST Ammonia Lactate Dehydrogenase NT-Pro-B Natriuret Pep Total Protein Albumin Lipase Vitamin B12 Urine WBC (Auto) Urine Creatinine Ur Creatinine 24 Hour Digoxin Crossmatch 12/18/17 12/18/17 12/18/17 05:21 06:16 11:11 RBC Hgb Hct MCV MCH MCHC RDW Plt Count Lymph % (Auto) [place] % (Auto) Baso % (Auto) Lymph # [place] # Seg Neutrophils % Seg Neuts % (Manual) Lymphocytes % (Manual) Lymphocytes # (Manual) PT 34.7 H INR 3.17 H APTT Fibrinogen D-Dimer POC ABG pH POC ABG pCO2 POC ABG pO2 Sodium Potassium 3.5 L Chloride 87.1 L Carbon Dioxide BUN 35 H Creatinine 4.3 H Glucose 110 H POC Glucose 116 H Lactic Acid Calcium 8.1 L Phosphorus Magnesium TIBC Ferritin Total Bilirubin 5.10 H Direct Bilirubin AST 56 H Ammonia Lactate Dehydrogenase NT-Pro-B Natriuret Pep Total Protein Albumin Lipase Vitamin B12 Urine WBC (Auto) Urine Creatinine Ur Creatinine 24 Hour Digoxin Crossmatch 12/18/17 12/18/17 12/18/17 13:10 17:52 22:04 RBC Hgb Hct MCV MCH MCHC RDW Plt Count Lymph % (Auto) [place] % (Auto) Baso % (Auto) Lymph # [place] # Seg Neutrophils % Seg Neuts % (Manual) Lymphocytes % (Manual) Lymphocytes # (Manual) PT 25.9 H INR 2.20 H APTT Fibrinogen D-Dimer POC ABG pH POC ABG pCO2 POC ABG pO2 Sodium Potassium Chloride Carbon Dioxide BUN Creatinine Glucose POC Glucose 114 H 108 H Lactic Acid Calcium Phosphorus Magnesium TIBC Ferritin Total Bilirubin Direct Bilirubin AST Ammonia Lactate Dehydrogenase NT-Pro-B Natriuret Pep Total Protein Albumin Lipase Vitamin B12 Urine WBC (Auto) Urine Creatinine Ur Creatinine 24 Hour Digoxin Crossmatch 12/19/17 12/19/17 12/19/17 05:55 05:55 10:20 RBC 2.85 L Hgb 9.1 L Hct 25.7 L MCV MCH MCHC 35 H RDW 16.4 H Plt Count 61 L Lymph % (Auto) [place] % (Auto) Baso % (Auto) Lymph # [place] # Seg Neutrophils % Seg Neuts % (Manual) Lymphocytes % (Manual) Lymphocytes # (Manual) PT INR APTT Fibrinogen D-Dimer POC ABG pH POC ABG pCO2 POC ABG pO2 Sodium Potassium Chloride 94.5 L Carbon Dioxide BUN 27 H Creatinine 3.6 H Glucose POC Glucose 131 H Lactic Acid Calcium 8.2 L Phosphorus Magnesium TIBC Ferritin Total Bilirubin Direct Bilirubin AST Ammonia Lactate Dehydrogenase NT-Pro-B Natriuret Pep Total Protein Albumin Lipase Vitamin B12 Urine WBC (Auto) Urine Creatinine Ur Creatinine 24 Hour Digoxin Crossmatch 12/19/17 12/21/17 12/21/17 11:46 05:26 05:26 RBC 2.60 L Hgb 8.4 L Hct 23.9 L MCV MCH MCHC 35 H RDW 16.2 H Plt Count 57 L Lymph % (Auto) 12.4 L [place] % (Auto) 10.7 H Baso % (Auto) Lymph # [place] # 1.0 H Seg Neutrophils % 74.8 H Seg Neuts % (Manual) Lymphocytes % (Manual) Lymphocytes # (Manual) PT 26.2 H INR 2.23 H APTT Fibrinogen D-Dimer POC ABG pH POC ABG pCO2 POC ABG pO2 Sodium Potassium Chloride Carbon Dioxide BUN Creatinine Glucose POC Glucose Lactic Acid Calcium Phosphorus Magnesium TIBC Ferritin Total Bilirubin Direct Bilirubin AST Ammonia Lactate Dehydrogenase NT-Pro-B Natriuret Pep Total Protein Albumin Lipase Vitamin B12 Urine WBC (Auto) Urine Creatinine Ur Creatinine 24 Hour Digoxin 0.4 L Crossmatch 12/21/17 12/23/17 12/24/17 09:40 08:15 04:51 RBC 1.80 L Hgb 5.9 L* Hct 17.0 L* D MCV MCH 33 H MCHC 35 H RDW 16.5 H Plt Count 53 L Lymph % (Auto) [place] % (Auto) Baso % (Auto) Lymph # [place] # Seg Neutrophils % Seg Neuts % (Manual) Lymphocytes % (Manual) Lymphocytes # (Manual) PT 26.4 H 27.9 H INR 2.26 H 2.42 H APTT Fibrinogen D-Dimer POC ABG pH POC ABG pCO2 POC ABG pO2 Sodium Potassium Chloride Carbon Dioxide BUN Creatinine Glucose POC Glucose Lactic Acid Calcium Phosphorus Magnesium TIBC Ferritin Total Bilirubin Direct Bilirubin AST Ammonia Lactate Dehydrogenase NT-Pro-B Natriuret Pep Total Protein Albumin Lipase Vitamin B12 Urine WBC (Auto) Urine Creatinine Ur Creatinine 24 Hour Digoxin Crossmatch 12/24/17 12/24/17 12/24/17 04:51 06:25 08:20 RBC Hgb Hct MCV MCH MCHC RDW Plt Count Lymph % (Auto) [place] % (Auto) Baso % (Auto) Lymph # [place] # Seg Neutrophils % Seg Neuts % (Manual) Lymphocytes % (Manual) Lymphocytes # (Manual) PT 40.8 H INR 3.87 H APTT Fibrinogen D-Dimer POC ABG pH POC ABG pCO2 POC ABG pO2 Sodium Potassium 3.5 L Chloride Carbon Dioxide BUN 21 H Creatinine 4.4 H Glucose POC Glucose Lactic Acid Calcium 8.1 L Phosphorus Magnesium TIBC Ferritin Total Bilirubin Direct Bilirubin AST Ammonia Lactate Dehydrogenase NT-Pro-B Natriuret Pep Total Protein Albumin Lipase Vitamin B12 Urine WBC (Auto) Urine Creatinine Ur Creatinine 24 Hour Digoxin Crossmatch See Detail 12/24/17 12/24/17 12/25/17 19:21 19:21 05:27 RBC 2.31 L Hgb 7.3 L 7.4 L Hct 20.4 L 21.3 L MCV MCH MCHC 35 H RDW 15.9 H Plt Count 39 L Lymph % (Auto) [place] % (Auto) 10.8 H Baso % (Auto) Lymph # 0.9 L [place] # Seg Neutrophils % 71.9 H Seg Neuts % (Manual) Lymphocytes % (Manual) Lymphocytes # (Manual) PT 21.3 H INR 1.73 H APTT Fibrinogen D-Dimer POC ABG pH POC ABG pCO2 POC ABG pO2 Sodium Potassium Chloride Carbon Dioxide BUN Creatinine Glucose POC Glucose Lactic Acid Calcium Phosphorus Magnesium TIBC Ferritin Total Bilirubin Direct Bilirubin AST Ammonia Lactate Dehydrogenase NT-Pro-B Natriuret Pep Total Protein Albumin Lipase Vitamin B12 Urine WBC (Auto) Urine Creatinine Ur Creatinine 24 Hour Digoxin Crossmatch 12/25/17 12/25/17 12/25/17 05:27 05:27 12:24 RBC Hgb Hct MCV MCH MCHC RDW Plt Count Lymph % (Auto) [place] % (Auto) Baso % (Auto) Lymph # [place] # Seg Neutrophils % Seg Neuts % (Manual) Lymphocytes % (Manual) Lymphocytes # (Manual) PT 22.1 H INR 1.81 H APTT Fibrinogen D-Dimer POC ABG pH POC ABG pCO2 POC ABG pO2 Sodium Potassium 3.5 L Chloride 96.7 L Carbon Dioxide BUN Creatinine 3.2 H Glucose POC Glucose 140 H Lactic Acid Calcium 8.1 L Phosphorus Magnesium TIBC Ferritin Total Bilirubin Direct Bilirubin AST Ammonia Lactate Dehydrogenase NT-Pro-B Natriuret Pep Total Protein Albumin Lipase Vitamin B12 Urine WBC (Auto) Urine Creatinine Ur Creatinine 24 Hour Digoxin Crossmatch 12/26/17 12/26/17 12/27/17 05:59 05:59 06:34 RBC 2.01 L 2.52 L Hgb 6.6 L 8.2 L Hct 18.6 L* 23.2 L MCV MCH 33 H MCHC 35 H 35 H RDW 16.6 H 15.3 H Plt Count 45 L 39 L Lymph % (Auto) 11.6 L [place] % (Auto) 10.3 H 11.2 H Baso % (Auto) Lymph # 1.0 L 0.7 L [place] # Seg Neutrophils % 72.2 H 75.4 H Seg Neuts % (Manual) Lymphocytes % (Manual) Lymphocytes # (Manual) PT INR APTT Fibrinogen D-Dimer POC ABG pH POC ABG pCO2 POC ABG pO2 Sodium Potassium 3.3 L Chloride Carbon Dioxide BUN Creatinine 3.8 H Glucose 110 H POC Glucose Lactic Acid Calcium Phosphorus 2.40 L Magnesium 1.40 L TIBC Ferritin Total Bilirubin 7.10 H Direct Bilirubin AST 73 H Ammonia Lactate Dehydrogenase NT-Pro-B Natriuret Pep Total Protein Albumin 3.5 L Lipase Vitamin B12 Urine WBC (Auto) Urine Creatinine Ur Creatinine 24 Hour Digoxin Crossmatch 12/27/17 12/27/17 12/27/17 06:34 06:34 06:34 RBC Hgb Hct MCV MCH MCHC RDW Plt Count Lymph % (Auto) [place] % (Auto) Baso % (Auto) Lymph # [place] # Seg Neutrophils % Seg Neuts % (Manual) Lymphocytes % (Manual) Lymphocytes # (Manual) PT INR APTT Fibrinogen D-Dimer POC ABG pH POC ABG pCO2 POC ABG pO2 Sodium Potassium 3.3 L Chloride 95.4 L Carbon Dioxide BUN Creatinine 2.6 H Glucose 112 H POC Glucose Lactic Acid Calcium 8.1 L Phosphorus Magnesium TIBC 77 L Ferritin > 2000.0 H Total Bilirubin 8.00 H Direct Bilirubin AST 89 H Ammonia Lactate Dehydrogenase 302 H NT-Pro-B Natriuret Pep Total Protein Albumin 3.7 L Lipase Vitamin B12 Urine WBC (Auto) Urine Creatinine Ur Creatinine 24 Hour Digoxin Crossmatch 12/28/17 12/28/17 12/29/17 06:24 09:00 00:30 RBC 2.25 L Hgb 7.5 L Hct 21.1 L MCV MCH 33 H MCHC 35 H RDW 16.2 H Plt Count 78 L D Lymph % (Auto) 12.5 L [place] % (Auto) 12.3 H Baso % (Auto) Lymph # 0.9 L [place] # 0.9 H Seg Neutrophils % 73.3 H Seg Neuts % (Manual) Lymphocytes % (Manual) Lymphocytes # (Manual) PT 23.7 H INR 1.97 H APTT 53.1 H Fibrinogen D-Dimer POC ABG pH POC ABG pCO2 POC ABG pO2 Sodium Potassium Chloride Carbon Dioxide BUN Creatinine Glucose POC Glucose 148 H Lactic Acid Calcium Phosphorus Magnesium TIBC Ferritin Total Bilirubin Direct Bilirubin AST Ammonia Lactate Dehydrogenase NT-Pro-B Natriuret Pep Total Protein Albumin Lipase Vitamin B12 Urine WBC (Auto) Urine Creatinine Ur Creatinine 24 Hour Digoxin Crossmatch 12/29/17 12/29/17 12/29/17 00:34 03:59 03:59 RBC 2.19 L Hgb 7.2 L Hct 20.7 L MCV 95 H MCH 33 H MCHC 35 H RDW 16.9 H Plt Count 75 L Lymph % (Auto) [place] % (Auto) 10.8 H Baso % (Auto) Lymph # [place] # Seg Neutrophils % 70.8 H Seg Neuts % (Manual) Lymphocytes % (Manual) Lymphocytes # (Manual) PT 25.7 H INR 2.18 H APTT Fibrinogen D-Dimer POC ABG pH POC ABG pCO2 POC ABG pO2 Sodium Potassium Chloride Carbon Dioxide BUN Creatinine 2.3 H Glucose 111 H POC Glucose Lactic Acid Calcium Phosphorus Magnesium TIBC Ferritin Total Bilirubin 8.20 H Direct Bilirubin AST 66 H Ammonia Lactate Dehydrogenase NT-Pro-B Natriuret Pep Total Protein Albumin 3.5 L Lipase Vitamin B12 Urine WBC (Auto) Urine Creatinine Ur Creatinine 24 Hour Digoxin Crossmatch 12/29/17 12/30/17 12/30/17 07:35 07:51 08:27 RBC 1.97 L Hgb 6.7 L Hct 18.8 L* MCV 96 H MCH 34 H MCHC 36 H RDW 17.6 H Plt Count 76 L Lymph % (Auto) [place] % (Auto) 10.5 H Baso % (Auto) Lymph # 1.0 L [place] # Seg Neutrophils % 72.4 H Seg Neuts % (Manual) Lymphocytes % (Manual) Lymphocytes # (Manual) PT INR APTT Fibrinogen D-Dimer POC ABG pH POC ABG pCO2 POC ABG pO2 Sodium Potassium Chloride Carbon Dioxide BUN Creatinine Glucose POC Glucose 113 H Lactic Acid Calcium Phosphorus Magnesium 1.50 L TIBC Ferritin Total Bilirubin Direct Bilirubin AST Ammonia Lactate Dehydrogenase NT-Pro-B Natriuret Pep Total Protein Albumin Lipase Vitamin B12 Urine WBC (Auto) Urine Creatinine Ur Creatinine 24 Hour Digoxin Crossmatch 12/30/17 12/31/17 12/31/17 08:44 12:59 12:59 RBC 2.49 L Hgb 8.3 L Hct 23.0 L MCV MCH 33 H MCHC 36 H RDW 17.5 H Plt Count 69 L Lymph % (Auto) [place] % (Auto) 13.0 H Baso % (Auto) 1.9 H Lymph # 1.1 L [place] # 0.9 H Seg Neutrophils % Seg Neuts % (Manual) Lymphocytes % (Manual) Lymphocytes # (Manual) PT INR APTT Fibrinogen D-Dimer POC ABG pH POC ABG pCO2 POC ABG pO2 Sodium Potassium Chloride Carbon Dioxide BUN 21 H Creatinine 3.8 H D Glucose 114 H POC Glucose Lactic Acid Calcium Phosphorus Magnesium TIBC Ferritin Total Bilirubin 8.30 H Direct Bilirubin AST 46 H Ammonia Lactate Dehydrogenase NT-Pro-B Natriuret Pep Total Protein Albumin Lipase Vitamin B12 Urine WBC (Auto) Urine Creatinine Ur Creatinine 24 Hour Digoxin Crossmatch See Detail 12/31/17 01/01/18 01/01/18 12:59 05:27 05:27 RBC 2.69 L Hgb 9.1 L Hct 25.1 L MCV MCH 34 H MCHC 36 H RDW 17.5 H Plt Count 64 L Lymph % (Auto) 12.5 L [place] % (Auto) 14.4 H Baso % (Auto) Lymph # 0.9 L [place] # 1.1 H Seg Neutrophils % 70.4 H Seg Neuts % (Manual) Lymphocytes % (Manual) Lymphocytes # (Manual) PT 19.7 H 22.1 H INR 1.57 H 1.81 H APTT Fibrinogen D-Dimer POC ABG pH POC ABG pCO2 POC ABG pO2 Sodium Potassium Chloride Carbon Dioxide BUN Creatinine Glucose POC Glucose Lactic Acid Calcium Phosphorus Magnesium TIBC Ferritin Total Bilirubin Direct Bilirubin AST Ammonia Lactate Dehydrogenase NT-Pro-B Natriuret Pep Total Protein Albumin Lipase Vitamin B12 Urine WBC (Auto) Urine Creatinine Ur Creatinine 24 Hour Digoxin Crossmatch 01/01/18 05:27 RBC Hgb Hct MCV MCH MCHC RDW Plt Count Lymph % (Auto) [place] % (Auto) Baso % (Auto) Lymph # [place] # Seg Neutrophils % Seg Neuts % (Manual) Lymphocytes % (Manual) Lymphocytes # (Manual) PT INR APTT Fibrinogen D-Dimer POC ABG pH POC ABG pCO2 POC ABG pO2 Sodium Potassium Chloride Carbon Dioxide BUN Creatinine 2.8 H Glucose POC Glucose Lactic Acid Calcium Phosphorus Magnesium TIBC Ferritin Total Bilirubin 9.20 H Direct Bilirubin AST 49 H Ammonia Lactate Dehydrogenase NT-Pro-B Natriuret Pep Total Protein Albumin 3.8 L Lipase Vitamin B12 Urine WBC (Auto) Urine Creatinine Ur Creatinine 24 Hour Digoxin Crossmatch Allied health notes reviewed: nursing
--- NOTE | 2018-01-02 16:36 | XRay Report ---
FINAL REPORT EXAM: XR CHEST 1V AP HISTORY: pleural effusion; hypoxemic respiratory failure COMPARISON: Chest radiograph performed on 12/30/2017 TECHNIQUE: Single frontal view of the chest FINDINGS: Left central venous catheter with tip near the superior cavoatrial junction. The cardiomediastinal silhouette is normal in appearance. There are moderate bilateral pleural effusions, increased on the left as compared to the previous study. There is bibasilar atelectasis. There is no acute bony or soft tissue abnormality. IMPRESSION: Moderate bilateral pleural effusions, increased on the left as compared to the previous study. Bibasilar atelectasis.
[2018-01-02] MEDS: PROAMATINE PO SCH ×2 (17:17→21:37)
[2018-01-02] MEDS: PERCOCET 5/325 PO PRN (17:18)
[2018-01-02] MEDS: THERAGRAN-M Tab PO SCH (17:18)
[2018-01-02] MEDS: PROTONIX FEEDTUBE SCH (17:19)
[2018-01-02] MEDS: XIFAXAN PO SCH ×2 (17:19→22:29)
[2018-01-02] MEDS: LOPRESSOR PO SCH ×2 (17:20→21:37)
[2018-01-02] MEDS: CEPHULAC PO SCH ×2 (17:21→21:37)
--- NOTE | 2018-01-02 20:11 | Progress Note ---
Assessment and Plan Assessment and plan: --Cirrhosis with esophageal varices. Ascites s/p paracentesis ,follow fluid analysis --Coagulopathy; secondary to cirrhosis liver Received vitamin K subcutaneous 1 dose, FFP's --Acute blood loss anemia. Patient Received 2 units of PRBC , total 11 units during this admission EGD negative for esophageal variceal bleeding, Hb today 9.1 --Severe thrombocytopenia; probably secondary to cirrhosis --NSVT, resolved ; continue Lopressor --Septic/hypovolemic shock. On midodrine, --Sepsis;cultures negative --Rectal bleeding; resolved GI following --Toxic metabolic/hepatic encephalopathy. Hyperammonemia on admission. Resolved --Acute on chronic kidney disease : ATN/sepsis/hypotension. On hemodialysis,Outpatient dialysis per case management --Hepatorenal syndrome; on HD, nephrology following --Bilateral pleural effusion right greater than left. Bake Room Worker recommends giving FFP and possible thoracentesis if needed Plan of care Discussed with patient and at bedside today Plan of care reviewed with the and his and his nurse Possible discharge in 1-2 days if stable [facility] for further management I talked to Dr. [facility] updated patient's clinical status. History Interval history: Patient seen and examined medical records reviewed Received partial hemodialysis today Underwent paracentesis, follow fluid analysis Patient has no new complaints Vital signs reviewed Hospitalist Physical - Constitutional Vitals: Temp Pulse Resp BP Pulse Ox 98.1 F 77 18 87/56 97 01/02/18 17:05 01/02/18 17:20 01/02/18 17:05 01/02/18 17:20 01/02/18 19:24 General appearance: Present: no acute distress, cachectic, disheveled - EENT Eyes: Present: PERRL, EOM intact - Neck Neck: Present: supple, normal ROM - Respiratory Respiratory effort: normal Respiratory: bilateral: diminished, rales, negative: rhonchi, wheezing - Cardiovascular Rhythm: regular Heart Sounds: Present: S1 & S2 - Extremities Extremities: no ischemia Extremity abnormal: edema - Abdominal General gastrointestinal: soft, non-tender, non-distended, normal bowel sounds - Integumentary Integumentary: Present: clear, warm, jaundice - Psychiatric Psychiatric: appropriate mood/affect, other (confused at times) - Neurologic Neurologic: moves all extremities, other (legally blind) Results - Labs CBC & Chem 7: 01/01/18 05:27 01/01/18 05:27 Labs: Laboratory Last Values WBC 7.5 K/mm3 (4.5-11.0) 01/01/18 05:27 RBC 2.69 M/mm3 (3.65-5.03) L 01/01/18 05:27 Hgb 9.1 gm/dl (11.8-15.2) L 01/01/18 05:27 Hct 25.1 % (35.5-45.6) L 01/01/18 05:27 MCV 93 fl (84-94) 01/01/18 05:27 MCH 34 pg (28-32) H 01/01/18 05:27 MCHC 36 % (32-34) H 01/01/18 05:27 RDW 17.5 % (13.2-15.2) H 01/01/18 05:27 Plt Count 64 K/mm3 (140-440) L 01/01/18 05:27 Lymph % (Auto) 12.5 % (13.4-35.0) L 01/01/18 05:27 [place] % (Auto) 14.4 % (0.0-7.3) H 01/01/18 05:27 Eos % (Auto) 1.0 % (0.0-4.3) 01/01/18 05:27 Baso % (Auto) 1.7 % (0.0-1.8) 01/01/18 05:27 Lymph # 0.9 K/mm3 (1.2-5.4) L 01/01/18 05:27 [place] # 1.1 K/mm3 (0.0-0.8) H 01/01/18 05:27 Eos # 0.1 K/mm3 (0.0-0.4) 01/01/18 05:27 Baso # 0.1 K/mm3 (0.0-0.1) 01/01/18 05:27 Add Manual Diff Complete 12/12/17 19:50 Total Counted 100 12/12/17 19:50 Seg Neutrophils % 70.4 % (40.0-70.0) H 01/01/18 05:27 Seg Neuts % (Manual) 87.0 % (40.0-70.0) H 12/12/17 19:50 Band Neutrophils % 0 % 12/12/17 19:50 Lymphocytes % (Manual) 5.0 % (13.4-35.0) L 12/12/17 19:50 Reactive Lymphs % (Man) 0 % 12/12/17 19:50 Monocytes % (Manual) 6.0 % (0.0-7.3) 12/12/17 19:50 Eosinophils % (Manual) 2.0 % (0.0-4.3) 12/12/17 19:50 Basophils % (Manual) 0 % (0.0-1.8) 12/12/17 19:50 Metamyelocytes % 0 % 12/12/17 19:50 Myelocytes % 0 % 12/12/17 19:50 Promyelocytes % 0 % 12/12/17 19:50 Blast Cells % 0 % 12/12/17 19:50 Nucleated RBC % Not Reportable 12/12/17 19:50 Seg Neutrophils # 5.3 K/mm3 (1.8-7.7) 01/01/18 05:27 Seg Neutrophils # Man 4.9 K/mm3 (1.8-7.7) 12/12/17 19:50 Band Neutrophils # 0.0 K/mm3 12/12/17 19:50 Lymphocytes # (Manual) 0.3 K/mm3 (1.2-5.4) L 12/12/17 19:50 Abs React Lymphs (Man) 0.0 K/mm3 12/12/17 19:50 Monocytes # (Manual) 0.3 K/mm3 (0.0-0.8) 12/12/17 19:50 Eosinophils # (Manual) 0.1 K/mm3 (0.0-0.4) 12/12/17 19:50 Basophils # (Manual) 0.0 K/mm3 (0.0-0.1) 12/12/17 19:50 Metamyelocytes # 0.0 K/mm3 12/12/17 19:50 Myelocytes # 0.0 K/mm3 12/12/17 19:50 Promyelocytes # 0.0 K/mm3 12/12/17 19:50 Blast Cells # 0.0 K/mm3 12/12/17 19:50 WBC Morphology Not Reportable 12/12/17 19:50 Hypersegmented Neuts Not Reportable 12/12/17 19:50 Hyposegmented Neuts Not Reportable 12/12/17 19:50 Hypogranular Neuts Not Reportable 12/12/17 19:50 Smudge Cells Not Reportable 12/12/17 19:50 Toxic Granulation Not Reportable 12/12/17 19:50 Toxic Vacuolation Not Reportable 12/12/17 19:50 Dohle Bodies Not Reportable 12/12/17 19:50 [place]-Huet Anomaly Not Reportable 12/12/17 19:50 Eriberto Rods Not Reportable 12/12/17 19:50 Platelet Estimate Appears decreased 12/12/17 19:50 Clumped Platelets Not Reportable 12/12/17 19:50 Plt Clumps, EDTA Not Reportable 12/12/17 19:50 Large Platelets 1+ 12/12/17 19:50 Giant Platelets Not Reportable 12/12/17 19:50 Platelet Satelliting Not Reportable 12/12/17 19:50 Plt Morphology Comment Not Reportable 12/12/17 19:50 RBC Morphology Not Reportable 12/12/17 19:50 Dimorphic RBCs Not Reportable 12/12/17 19:50 Polychromasia Not Reportable 12/12/17 19:50 Hypochromasia 1+ 12/12/17 19:50 Poikilocytosis Not Reportable 12/12/17 19:50 Anisocytosis Not Reportable 12/12/17 19:50 Microcytosis Not Reportable 12/12/17 19:50 Macrocytosis Not Reportable 12/12/17 19:50 Spherocytes Not Reportable 12/12/17 19:50 Pappenheimer Bodies Not Reportable 12/12/17 19:50 Sickle Cells Not Reportable 12/12/17 19:50 Target Cells Not Reportable 12/12/17 19:50 Tear Drop Cells Not Reportable 12/12/17 19:50 Ovalocytes Not Reportable 12/12/17 19:50 Helmet Cells Not Reportable 12/12/17 19:50 [place]-Coldstream Bodies Not Reportable 12/12/17 19:50 [place] Rings Not Reportable 12/12/17 19:50 [place] Cells 1+ 12/12/17 19:50 Bite Cells Not Reportable 12/12/17 19:50 Crenated Cell Not Reportable 12/12/17 19:50 Elliptocytes Not Reportable 12/12/17 19:50 Acanthocytes (Spur) 1+ 12/12/17 19:50 Rouleaux Not Reportable 12/12/17 19:50 Hemoglobin C Crystals Not Reportable 12/12/17 19:50 Schistocytes Not Reportable 12/12/17 19:50 Malaria parasites Not Reportable 12/12/17 19:50 ESR 18 mm/Hr (0-20) 12/12/17 19:50 [place] Bodies Not Reportable 12/12/17 19:50 Hem Pathologist Commnt No 12/12/17 19:50 PT 22.1 Sec. (12.2-14.9) H 01/01/18 05:27 INR 1.81 (0.87-1.13) H 01/01/18 05:27 APTT 53.1 Sec. (24.2-36.6) H 12/28/17 09:00 Fibrinogen 128 mg/dl (211-480) L 12/12/17 19:50 D-Dimer 1215.06 ng/mlDDU (0-234) H 12/12/17 19:50 Factor VIII:C Activity 178 % (50-180) 12/12/17 20:30 POC ABG pH 7.452 (7.35-7.45) H 12/12/17 09:13 POC ABG pCO2 22.2 (35-45) L 12/12/17 09:13 POC ABG pO2 75 (80-105) L 12/12/17 09:13 POC ABG HCO3 15.5 12/12/17 09:13 POC ABG Total CO2 16 12/12/17 09:13 POC ABG O2 Sat 96 12/12/17 09:13 POC ABG Base Excess -8 12/12/17 09:13 FiO2 21 % 12/12/17 09:13 Sodium 141 mmol/L (137-145) 01/01/18 05:27 Potassium 3.9 mmol/L (3.6-5.0) 01/01/18 05:27 Chloride 99.3 mmol/L (98-107) 01/01/18 05:27 Carbon Dioxide 25 mmol/L (22-30) 01/01/18 05:27 Anion Gap 21 mmol/L 01/01/18 05:27 BUN 16 mg/dL (9-20) 01/01/18 05:27 Creatinine 2.8 mg/dL (0.8-1.5) H 01/01/18 05:27 Estimated GFR 28 ml/min 01/01/18 05:27 BUN/Creatinine Ratio 6 % 01/01/18 05:27 Glucose 98 mg/dL (75-100) 01/01/18 05:27 POC Glucose 113 (70-105) H 12/29/17 07:35 Lactic Acid 3.90 mmol/L (0.7-2.0) H* 12/14/17 17:26 Calcium 9.0 mg/dL (8.4-10.2) 01/01/18 05:27 Phosphorus 2.40 mg/dL (2.5-4.5) L 12/26/17 05:59 Magnesium 2.00 mg/dL (1.7-2.3) 12/31/17 12:59 Iron 78 ug/dL (49-181) 12/27/17 06:34 TIBC 77 mcg/dL (250-450) L 12/27/17 06:34 Ferritin > 2000.0 ng/mL (13.0-400.0) H 12/27/17 06:34 Total Bilirubin 9.20 mg/dL (0.1-1.2) H 01/01/18 05:27 Direct Bilirubin 1.6 mg/dL (0-0.2) H 12/12/17 19:50 Indirect Bilirubin 2.5 mg/dL 12/12/17 19:50 AST 49 units/L (5-40) H 01/01/18 05:27 ALT 23 units/L (7-56) 01/01/18 05:27 Alkaline Phosphatase 72 units/L (35-129) 01/01/18 05:27 Ammonia 53.0 umol/L (25-60) 12/18/17 13:10 Lactate Dehydrogenase 302 units/L (91-180) H 12/27/17 06:34 Total Creatine Kinase 64 units/L (55-170) 12/10/17 23:14 C-Reactive Protein 0.30 mg/dL (0.00-1.30) 12/13/17 14:03 NT-Pro-B Natriuret Pep 9558 pg/mL (0-900) H 12/10/17 23:14 Total Protein 7.3 g/dL (6.3-8.2) 01/01/18 05:27 Albumin 3.8 g/dL (3.9-5) L 01/01/18 05:27 Albumin/Globulin Ratio 1.1 % 01/01/18 05:27 Lipase 7 units/L (13-60) L 12/10/17 23:14 Vitamin B12 1465 pg/mL (211-911) H 12/12/17 19:50 Folate 14.04 ng/mL (7.3-26.0) 12/12/17 19:50 TSH 2.560 mlU/mL (0.270-4.200) 12/16/17 12:37 Total Cortisol 8.6 mcg/dL () 12/16/17 12:37 Urine Color Yellow (Yellow) 12/10/17 23:05 Urine Turbidity Clear (Clear) 12/10/17 23:05 Urine pH 5.0 (5.0-7.0) 12/10/17 23:05 Ur Specific [place] 1.013 (1.003-1.030) 12/10/17 23:05 Urine Protein <15 mg/dl mg/dL (Negative) 12/10/17 23:05 Urine Glucose (UA) Neg mg/dL (Negative) 12/10/17 23:05 Urine Ketones Neg mg/dL (Negative) 12/10/17 23:05 Urine Blood Neg (Negative) 12/10/17 23:05 Urine Nitrite Neg (Negative) 12/10/17 23:05 Ur Reducing Substances Not Reportable 12/10/17 23:05 Urine Bilirubin Neg (Negative) 12/10/17 23:05 Urine Ictotest Not Reportable 12/10/17 23:05 Urine Urobilinogen < 2.0 mg/dL (<2.0) 12/10/17 23:05 Ur Leukocyte Esterase Sm (Negative) 12/10/17 23:05 Urine WBC (Auto) 10.0 /HPF (0.0-6.0) H 12/10/17 23:05 Urine RBC (Auto) 4.0 /HPF (0.0-6.0) 12/10/17 23:05 U Epithel Cells (Auto) < 1.0 /HPF (0-13.0) 12/10/17 23:05 Urine Mucus Few /HPF 12/10/17 23:05 Urine Total Volume 250 12/14/17 Unknown Urine Creatinine 122.5 mg/dL (0.1-20.0) H 12/14/17 Unknown Ur Creatinine 24 Hour 0.3 (0.8-2.8) L 12/14/17 Unknown Fluid Type Peritoneal 12/31/17 Unknown Fluid Color Red 12/31/17 Unknown Fluid Appearance Cloudy 12/31/17 Unknown Fluid WBC 55 /mm3 12/31/17 Unknown Fluid RBC 39314 /mm3 12/31/17 Unknown Fluid Seg Neutrophils 6.0 % 12/31/17 Unknown Fluid Lymphocytes 48.0 % 12/31/17 Unknown Fluid Monocytes 46.0 % 12/31/17 Unknown Digoxin 0.4 ng/mL (0.9-2.0) L 12/21/17 05:26 Hepatitis A IgM Ab Non-reactive (NonReactive) 12/12/17 19:50 Hep Bs Antigen Non-reactive (Negative) 12/12/17 19:50 Hep B Core IgM Ab Non-reactive (NonReactive) 12/12/17 19:50 Hepatitis C Antibody Non-reactive (NonReactive) 12/12/17 19:50 Miscellaneous Test Flexitest 1 12/12/17 06:42 Blood Type A NEGATIVE 12/30/17 08:44 Antibody Screen Negative 12/30/17 08:44 Direct Antiglob Test Negative 12/12/17 20:41 JOANNE, Poly Interpret Negative 12/12/17 20:41 Crossmatch See Detail 12/30/17 08:44
[2018-01-03 07:04] LABS: Basophils # (Auto) 0.2 K/mm3 (0.0-0.1); Basophils % (Auto) 2.7 % (0.0-1.8); Eosinophils # (Auto) 0.2 K/mm3 (0.0-0.4); Eosinophils % (Auto) 2.2 % (0.0-4.3); Hematocrit 25.6 % (35.5-45.6); Hemoglobin 8.7 gm/dl (11.8-15.2); Lymphocytes # (Auto) 1.1 K/mm3 (1.2-5.4); Lymphocytes % (Auto) 14.3 % (13.4-35.0); Mean Corpuscular HGB Conc 34 % (32-34); Mean Corpuscular Hemoglobin 33 pg (28-32); Mean Corpuscular Volume 98 fl (84-94); Monocytes # (Auto) 0.9 K/mm3 (0.0-0.8); Monocytes % (Auto) 10.9 % (0.0-7.3); Red Blood Count 2.62 M/mm3 (3.65-5.03); Red Cell Distribution Width 19.4 % (13.2-15.2)
[2018-01-03 07:05] LABS: Platelet Count 55 K/mm3 (140-440)
[2018-01-03 07:19] LABS: INR 2.01 (0.87-1.13)
[2018-01-03 07:35] LABS: Albumin 3.6 g/dL (3.9-5); Bilirubin,Direct 2.7 mg/dL (0-0.2)
[2018-01-03] MEDS: LOPRESSOR PO SCH ×2 (09:13→21:50)
[2018-01-03] MEDS: CEPHULAC PO SCH ×2 (09:19→21:49)
[2018-01-03] MEDS: PROAMATINE PO SCH ×4 (09:19→20:25)
[2018-01-03] MEDS: THERAGRAN-M Tab PO SCH (09:20)
[2018-01-03] MEDS: PROTONIX FEEDTUBE SCH (09:20)
[2018-01-03] MEDS: XIFAXAN PO SCH ×2 (09:20→21:49)
--- NOTE | 2018-01-03 09:27 | Progress Note ---
Subjective Principal diagnosis: CARMEN on CKD; Acute Encephalopathy; Sepsis Syndrome; Anemia Interval history: Patient was seen today for follow-up on multiple renal related issues Has had hemodialysis treatment yesterday with difficulty Blood pressure was running low despite taking midodrine Dialysis prescription was altered yesterday to continue with dialysis this was discussed with the registered veterinary technician as well HEENT: [place] dry Neck: Supple no thyromegaly no JVD Chest: Clear to auscultation anteriorly no crackles or wheezes Posteriorly breath sounds are diminished at the lung base Central venous catheter site unremarkable Heart: Regular rate and rhythm S1-S2 heard no S3-S4 Abdomen: Soft nontender dry skin and no organomegaly Dialysis in flanks Extremity: Less than 1+ edema dry skin no petechial rash Musculoskeletal: No joint effusion noted Assessment and plan: Acute kidney injury: Currently dialysis dependent, patient blood pressure has been markedly low even during dialysis yesterday despite Midodrin, he is going to be high risk on hemodialysis this has been clearly discussed with patient's , risk of will be high if he continues to be hypotensive despite midodrine Albumin cannot be administered outpatient dialysis facility Hypotension: Likely due to intravascular volume depletion third spacing of fluid due to cirrhosis hypoalbuminemia, malnutrition, renal failure His prognosis is very poor, would like to know from GI if patient is a good candidate for transplant if not he should be considered for hospice in my opinion. I have left this decision with the Patient has hepatic failure, portal gastropathy, esophageal dialysis currently on paracentesis thoracentesis anasarca-like picture prognosis is very poor January 03 hemoglobin 8.7 platelet count 55,000 potassium 3.9 At this time we can only dialyze the patient if he is going to be stable this was clearly discussed with patient's , we have concerns about hemodynamics we would rather withhold the dialysis treatment and family will need to make alternate plans, they were also given option for second opinion if they want to Continue to monitor labs supportive care Objective - Vital Signs Vital signs: Vital Signs - 12hr 01/02/18 01/02/18 01/03/18 22:00 23:49 04:16 Temperature 98.2 F 98.6 F Pulse Rate 68 68 68 Respiratory 17 18 Rate Blood Pressure 86/53 94/57 O2 Sat by Pulse 96 96 Oximetry 01/03/18 08:11 Temperature Pulse Rate 67 Respiratory Rate Blood Pressure O2 Sat by Pulse Oximetry - Lab 01/03/18 06:24 01/01/18 05:27 Most recent lab results Calcium 9.0 mg/dL (8.4-10.2) 01/01/18 05:27 Phosphorus 2.40 mg/dL (2.5-4.5) L 12/26/17 05:59 Magnesium 1.70 mg/dL (1.7-2.3) 01/03/18 06:24 Urine Creatinine 122.5 mg/dL (0.1-20.0) H 12/14/17 Unknown
--- NOTE | 2018-01-03 11:13 | Progress Note ---
Assessment and Plan Anemia s/p transfusion of PRBCs Thrombocytopenia, chronic Chronic renal failure initiated on dialysis Hypotension -on midodrine therapy Hx of Cirrhosis with bleeding esophageal varices requiring TIPS 11/2016 Paroxysmal Atrial flutter seen on telemetry currently in sinus rhythm; on beta blockers for suppression as tolerated normal TSH patient is considered not a candidate for anticoagulation given underlying liver cirrhosis. Left pleural effusion Echocardiogram shows mild cardiomyopathy with left ventricular ejection fraction 45-50%. There is mild to moderate tricuspid regurgitation, pulmonary artery pressure is 31, and there is a left pleural effusion. Conservative cardiac management. Subjective Date of service: 01/03/18 Principal diagnosis: CARMEN on CKD; Acute Encephalopathy; Sepsis Syndrome; Anemia Interval history: No cardiac complaints. Objective Vital Signs Temp Pulse Resp BP Pulse Ox 01/03/18 08:11 67 01/03/18 04:16 98.6 F 68 18 94/57 96 01/02/18 23:49 98.2 F 68 17 86/53 96 01/02/18 22:00 68 01/02/18 19:55 58 L 116/77 97 01/02/18 19:51 98.5 F 69 17 91/46 99 01/02/18 19:24 97 01/02/18 17:20 77 87/56 01/02/18 17:05 98.1 F 77 18 87/56 97 01/02/18 12:12 98.1 F 67 16 94/54 01/02/18 11:45 68 92/57 01/02/18 11:30 68 92/54 01/02/18 11:15 73 77/41 - Physical Examination General: No Apparent Distress HEENT: Positive: PERRL Cardiac: Positive: Reg Rate and Rhythm Neuro: Positive: Weakness Extremities: Absent: edema - Labs and Meds Cardiac Enzymes 01/03/18 Range/Units 06:24 AST 50 H (5-40) units/L Coagulation 01/03/18 Range/Units 06:24 PT 24.1 H (12.2-14.9) Sec. INR 2.01 H (0.87-1.13) CBC 01/03/18 Range/Units 06:24 WBC 7.9 (4.5-11.0) K/mm3 RBC 2.62 L (3.65-5.03) M/mm3 Hgb 8.7 L (11.8-15.2) gm/dl Hct 25.6 L (35.5-45.6) % Plt Count 55 L (140-440) K/mm3 Lymph # 1.1 L (1.2-5.4) K/mm3 [place] # 0.9 H (0.0-0.8) K/mm3 Eos # 0.2 (0.0-0.4) K/mm3 Baso # 0.2 H (0.0-0.1) K/mm3 Comprehensive Metabolic Panel 01/03/18 Range/Units 06:24 Direct Bilirubin 2.7 H (0-0.2) mg/dL Indirect Bilirubin 6.3 mg/dL AST 50 H (5-40) units/L ALT 21 (7-56) units/L Alkaline Phosphatase 91 (35-129) units/L Total Protein 7.2 (6.3-8.2) g/dL Albumin 3.6 L (3.9-5) g/dL - Allied health notes Allied health notes reviewed: nursing
--- NOTE | 2018-01-03 13:09 | Progress Note ---
Assessment and Plan - Patient Problems (1) Acute hepatic encephalopathy Current Visit: Yes Status: Acute Plan to address problem: see orders. continue with lactulose, recheck ammonia level. continue same. supportive. (2) Anemia Current Visit: Yes Status: Acute Plan to address problem: see orders. Replacement transfusion, if hgb less than 7.0 same as above. see notes above. same as above, stable. see notes above. (3) Renal failure Current Visit: Yes Status: Acute Plan to address problem: follow renal service. same as above. (4) Liver failure Current Visit: Yes Status: Acute Plan to address problem: Hepato-renal syndrome, continue with HD. Subjective Date of service: 01/03/18 Principal diagnosis: CARMEN on CKD; Acute Encephalopathy; Sepsis Syndrome; Anemia Interval history: Patient seen, restingm labs/notes reviewed. agree with management so far.labs showing consumptive coagulopathy. Patient seen, resting in bed, records/labs reviewed.PLT dropped some.Still no active bleeding. Patient seen/examined, records/labs / notes reviewed, hgb low at 6.9, will rec replacement transfusion,with HD tomorrow if planned to proceed with HD. Patient seen, resting in bed, labs/records reviewed, Hgb still low, transfusion written for today. Patient seen, resting in bed, labs reviewed, plt 57,000, rectal bleeding resolved, will continue to monitor patient/labs with you, and intervene with replacement transfusion, when needed. Patient seen, resting in bed, NAD, records reviewed. Patient seen, resting in bed, labs/records reviewed, no new issues, the latest plt fair, no any sign of bleeding. Patient seen, resting in bed, records reviewed, PLT 57,000, no bleeding. Patient seen, resting in bed, labs reviewed, hgb dropped drastically, due to rectal bleed.He is s/p blood transfusion. he is expected to continue to drop his hgb, as long as he continues to bleed. Will re check labs in am. Thrombocytopenia at above 20,000. will continue to monitor. Patient seen, resting in bed, labs reviewed, ,he will need some PLT+ FFP, especially if there is any plans for any procedure, otherwise, can watch if any active bleeding, or plt 20,000 or less. patient seen/examined, resting in bed, labs reviewed, s/p GI scope, and blood transfusion, Plt replacement ,to follow. patient seen, resting in bed, labs, reviewed, plt 39,000, replacement not given yesterday? Patient seen/examined, at the HD center, resting in bed, was able ro discuss his case with him, regarding prognosis, and options, as i had d/w his yesterday. he wants to talk with his first.. his PLT came up following transfusion, hgb at Fair level at this time,Will see how much this will hold in the next few days.He is really not a good candidate for any transplant ,given, his condition, and co morbid issues at this time. Prognosis is quite poor for Hepato-renal syndrome, let alone complicated by thrombocytopenia/anemia, and double vital organ failure.He has no real reserve as far as these organs are concerned.You may want to have a vince family talk with him, his , and doctors Patient resting in bed, labs reviewed, and fairly stable, slight drop in hgb, and plt, but overall stable in the last 24hrs.notes reviewed. Patient seen/resting in bed, labs reviewed, d/w primary team. Hgb dropped, but plt holding steady since replacement. Patient resting in bed, labs reviewed, rec stays the same.Replacement transfusion prn. i have spoken to patient/, and sister at [facility]. Patient seen/examined, resting in bed, c/o not eating much due to lack of appetite.Rec appetite enhancer. Patient seen, resting in bed, labs reviewed, and remain fair. Objective - Constitutional Vitals: Vital Signs - 12hr 01/03/18 01/03/18 01/03/18 04:16 08:11 09:26 Temperature 98.6 F 97.9 F Pulse Rate 68 67 72 Respiratory 18 18 Rate Blood Pressure 94/57 90/53 O2 Sat by Pulse 96 94 Oximetry 01/03/18 11:42 Temperature 97.9 F Pulse Rate 69 Respiratory 18 Rate Blood Pressure 96/55 O2 Sat by Pulse 93 Oximetry General appearance: Present: mild distress, well-nourished - EENT Eyes: PERRL, EOM intact ENT: hearing intact, clear oral mucosa Ears: bilateral: normal - Neck Neck: supple, normal ROM - Respiratory Respiratory effort: normal Respiratory: bilateral: CTA - Breasts Breasts: deferred - Cardiovascular Rhythm: regular Heart Sounds: Present: S1 & S2. Absent: gallop, rub Extremities: pulses intact, No edema, normal color, Full ROM - Gastrointestinal General gastrointestinal: Present: soft, non-tender, non-distended, normal bowel sounds Rectal Exam: deferred - Genitourinary Male genitourinary: deferred - Integumentary Integumentary: clear, warm, dry - Musculoskeletal Musculoskeletal: 1, strength equal bilaterally - Neurologic Neurologic: moves all extremities - Psychiatric Psychiatric: memory intact, appropriate mood/affect, intact judgment & insight - Labs CBC & Chem 7: 01/03/18 06:24 01/01/18 05:27 Labs: Abnormal lab results 01/03/18 01/03/18 01/03/18 Range/Units 06:24 06:24 06:24 RBC 2.62 L (3.65-5.03) M/mm3 Hgb 8.7 L (11.8-15.2) gm/dl Hct 25.6 L (35.5-45.6) % MCV 98 H (84-94) fl MCH 33 H (28-32) pg RDW 19.4 H (13.2-15.2) % Plt Count 55 L (140-440) K/mm3 [place] % (Auto) 10.9 H (0.0-7.3) % Baso % (Auto) 2.7 H (0.0-1.8) % Lymph # 1.1 L (1.2-5.4) K/mm3 [place] # 0.9 H (0.0-0.8) K/mm3 Baso # 0.2 H (0.0-0.1) K/mm3 PT 24.1 H (12.2-14.9) Sec. INR 2.01 H (0.87-1.13) Total Bilirubin 9.00 H (0.1-1.2) mg/dL Direct Bilirubin 2.7 H (0-0.2) mg/dL AST 50 H (5-40) units/L Albumin 3.6 L (3.9-5) g/dL
--- NOTE | 2018-01-03 18:55 | Progress Note ---
Assessment and Plan Patient sleeping at this time. No acute respiratory distress.O2 saturation 100 % on 2 litres O2.Patient has paracentesis recently. No malignant cells reported. Patient scheduled for thoracentesis tomorrow. - Patient Problems (1) Bilateral pleural effusion Current Visit: No Status: Acute Plan to address problem: Patient scheduled for thoracentesis (2) Hypovolemic shock Current Visit: Yes Status: Acute Plan to address problem: Improved .Blood pressure 96/64 (3) CARMEN (acute kidney injury) Current Visit: Yes Status: Acute Plan to address problem: Management as per nephrology. (4) Acute hepatic encephalopathy Current Visit: Yes Status: Acute Plan to address problem: Management as per primary care. (5) Alcoholic cirrhosis of liver with ascites Current Visit: Yes Status: Acute Plan to address problem: Management as per primary care. (6) Anemia Current Visit: Yes Status: Acute Plan to address problem: Management as per primary care. Subjective Date of service: 01/03/18 Principal diagnosis: CARMEN on CKD; Acute Encephalopathy; Sepsis Syndrome; Anemia Interval history: Patient sleeping at this time. No acute respiratory distress.O2 saturation 100 % on 2 litres O2.Patient has paracentesis recently. No malignant cells reported. Patient scheduled for thoracentesis tomorrow. Objective Vital Signs - 12hr 01/03/18 01/03/18 01/03/18 08:11 09:13 09:26 Temperature 97.9 F Pulse Rate 67 72 72 Respiratory 18 Rate Blood Pressure 90/53 90/53 O2 Sat by Pulse 94 Oximetry 01/03/18 01/03/18 11:42 16:13 Temperature 97.9 F 97.9 F Pulse Rate 69 77 Respiratory 18 18 Rate Blood Pressure 96/55 93/56 O2 Sat by Pulse 93 94 Oximetry Constitutional: asleep, other Eyes: non-icteric ENT: oropharynx moist, other (mallampati 2) Neck: supple, no lymphadenopathy, no JVD, other (no thyromegaly) Effort: normal Ascultation: Bilateral: diminished breath sounds (bases), rhonchi (scant) Percussion: Right: dull (base), Bilateral: not dull Cardiovascular: regular rate and rhythm, other (S1,S2, no murmurms, gallops or rubs) Gastrointestinal: normoactive bowel sounds, soft, non-tender, other (distended) Integumentary: rash Extremities: no cyanosis, no edema, pulses normal, no ischemia or petechiae, cool Neurologic: non-focal exam, pupils equal and round, motor strength normal and ( weak), other (alert, awake) Psychiatric: other (normal affect, confusion) CBC and BMP: 01/03/18 06:24 01/01/18 05:27 ABG, PT/INR, D-dimer: ABG POC ABG pH 7.452 (7.35-7.45) H 12/12/17 09:13 POC ABG pCO2 22.2 (35-45) L 12/12/17 09:13 POC ABG pO2 75 (80-105) L 12/12/17 09:13 POC ABG HCO3 15.5 12/12/17 09:13 POC ABG Total CO2 16 12/12/17 09:13 POC ABG O2 Sat 96 12/12/17 09:13 PT/INR, D-dimer PT 24.1 Sec. (12.2-14.9) H 01/03/18 06:24 INR 2.01 (0.87-1.13) H 01/03/18 06:24 D-Dimer 1215.06 ng/mlDDU (0-234) H 12/12/17 19:50 Abnormal lab findings: Abnormal Labs 12/10/17 12/10/17 12/10/17 13:14 13:14 23:05 RBC 2.31 L Hgb 7.3 L Hct 21.5 L MCV MCH MCHC RDW 17.7 H Plt Count 61 L Lymph % (Auto) [place] % (Auto) Baso % (Auto) Lymph # [place] # Baso # Seg Neutrophils % Seg Neuts % (Manual) 81.0 H Lymphocytes % (Manual) 11.0 L Lymphocytes # (Manual) 0.6 L PT INR APTT Fibrinogen D-Dimer POC ABG pH POC ABG pCO2 POC ABG pO2 Sodium 136 L Potassium 5.2 H Chloride Carbon Dioxide 15 L BUN 47 H Creatinine 5.2 H Glucose 127 H POC Glucose Lactic Acid Calcium Phosphorus Magnesium TIBC Ferritin Total Bilirubin 3.50 H Direct Bilirubin AST 71 H Ammonia Lactate Dehydrogenase NT-Pro-B Natriuret Pep Total Protein Albumin 2.6 L Lipase Vitamin B12 Urine WBC (Auto) 10.0 H Urine Creatinine Ur Creatinine 24 Hour Digoxin Crossmatch 12/10/17 12/10/17 12/10/17 23:14 23:14 23:14 RBC Hgb Hct MCV MCH MCHC RDW Plt Count Lymph % (Auto) [place] % (Auto) Baso % (Auto) Lymph # [place] # Baso # Seg Neutrophils % Seg Neuts % (Manual) Lymphocytes % (Manual) Lymphocytes # (Manual) PT INR APTT Fibrinogen D-Dimer POC ABG pH POC ABG pCO2 POC ABG pO2 Sodium Potassium Chloride Carbon Dioxide BUN Creatinine Glucose POC Glucose Lactic Acid 2.40 H* Calcium Phosphorus Magnesium TIBC Ferritin Total Bilirubin Direct Bilirubin AST Ammonia 134.0 H Lactate Dehydrogenase NT-Pro-B Natriuret Pep 9558 H Total Protein Albumin Lipase Vitamin B12 Urine WBC (Auto) Urine Creatinine Ur Creatinine 24 Hour Digoxin Crossmatch 12/10/17 12/11/17 12/11/17 23:14 00:29 03:33 RBC Hgb Hct MCV MCH MCHC RDW Plt Count Lymph % (Auto) [place] % (Auto) Baso % (Auto) Lymph # [place] # Baso # Seg Neutrophils % Seg Neuts % (Manual) Lymphocytes % (Manual) Lymphocytes # (Manual) PT INR APTT Fibrinogen D-Dimer POC ABG pH POC ABG pCO2 POC ABG pO2 Sodium Potassium Chloride Carbon Dioxide BUN Creatinine Glucose POC Glucose Lactic Acid 2.80 H* 3.00 H* Calcium Phosphorus Magnesium TIBC Ferritin Total Bilirubin Direct Bilirubin AST Ammonia Lactate Dehydrogenase NT-Pro-B Natriuret Pep Total Protein Albumin Lipase 7 L Vitamin B12 Urine WBC (Auto) Urine Creatinine Ur Creatinine 24 Hour Digoxin Crossmatch 12/11/17 12/11/17 12/11/17 04:08 04:34 04:34 RBC Hgb Hct MCV MCH MCHC RDW Plt Count Lymph % (Auto) [place] % (Auto) Baso % (Auto) Lymph # [place] # Baso # Seg Neutrophils % Seg Neuts % (Manual) Lymphocytes % (Manual) Lymphocytes # (Manual) PT 19.1 H INR 1.51 H APTT 45.7 H Fibrinogen D-Dimer POC ABG pH POC ABG pCO2 POC ABG pO2 Sodium Potassium Chloride Carbon Dioxide BUN Creatinine Glucose POC Glucose 113 H Lactic Acid 3.10 H* Calcium Phosphorus Magnesium TIBC Ferritin Total Bilirubin Direct Bilirubin AST Ammonia Lactate Dehydrogenase NT-Pro-B Natriuret Pep Total Protein Albumin Lipase Vitamin B12 Urine WBC (Auto) Urine Creatinine Ur Creatinine 24 Hour Digoxin Crossmatch 12/11/17 12/11/17 12/11/17 06:46 07:26 09:42 RBC Hgb Hct MCV MCH MCHC RDW Plt Count Lymph % (Auto) [place] % (Auto) Baso % (Auto) Lymph # [place] # Baso # Seg Neutrophils % Seg Neuts % (Manual) Lymphocytes % (Manual) Lymphocytes # (Manual) PT INR APTT Fibrinogen D-Dimer POC ABG pH POC ABG pCO2 POC ABG pO2 Sodium Potassium Chloride Carbon Dioxide BUN Creatinine Glucose POC Glucose Lactic Acid 2.70 H* 2.80 H* 2.90 H* Calcium Phosphorus Magnesium TIBC Ferritin Total Bilirubin Direct Bilirubin AST Ammonia Lactate Dehydrogenase NT-Pro-B Natriuret Pep Total Protein Albumin Lipase Vitamin B12 Urine WBC (Auto) Urine Creatinine Ur Creatinine 24 Hour Digoxin Crossmatch 12/11/17 12/11/17 12/11/17 13:12 14:06 23:14 RBC Hgb Hct MCV MCH MCHC RDW Plt Count Lymph % (Auto) [place] % (Auto) Baso % (Auto) Lymph # [place] # Baso # Seg Neutrophils % Seg Neuts % (Manual) Lymphocytes % (Manual) Lymphocytes # (Manual) PT INR APTT Fibrinogen D-Dimer POC ABG pH POC ABG pCO2 POC ABG pO2 Sodium Potassium Chloride Carbon Dioxide BUN Creatinine Glucose POC Glucose Lactic Acid 3.10 H* 3.10 H* 3.70 H* Calcium Phosphorus Magnesium TIBC Ferritin Total Bilirubin Direct Bilirubin AST Ammonia Lactate Dehydrogenase NT-Pro-B Natriuret Pep Total Protein Albumin Lipase Vitamin B12 Urine WBC (Auto) Urine Creatinine Ur Creatinine 24 Hour Digoxin Crossmatch 12/11/17 12/12/17 12/12/17 23:23 03:41 03:41 RBC 2.17 L Hgb 7.0 L Hct 19.9 L* MCV MCH 33 H MCHC 35 H RDW 17.7 H Plt Count 62 L Lymph % (Auto) [place] % (Auto) Baso % (Auto) Lymph # [place] # Baso # Seg Neutrophils % Seg Neuts % (Manual) 91.0 H Lymphocytes % (Manual) 3.0 L Lymphocytes # (Manual) 0.2 L PT INR APTT Fibrinogen D-Dimer POC ABG pH POC ABG pCO2 POC ABG pO2 Sodium Potassium 5.4 H Chloride Carbon Dioxide 12 L BUN 47 H Creatinine 4.5 H Glucose 103 H POC Glucose Lactic Acid Calcium 8.0 L Phosphorus Magnesium TIBC Ferritin Total Bilirubin 3.60 H Direct Bilirubin AST 58 H Ammonia Lactate Dehydrogenase NT-Pro-B Natriuret Pep Total Protein 5.9 L Albumin 2.5 L Lipase Vitamin B12 Urine WBC (Auto) Urine Creatinine Ur Creatinine 24 Hour Digoxin Crossmatch See Detail 12/12/17 12/12/17 12/12/17 07:00 09:13 17:55 RBC 2.06 L Hgb 6.6 L Hct 18.6 L* MCV MCH MCHC 36 H RDW 17.8 H Plt Count 77 L Lymph % (Auto) [place] % (Auto) Baso % (Auto) Lymph # [place] # Baso # Seg Neutrophils % Seg Neuts % (Manual) Lymphocytes % (Manual) Lymphocytes # (Manual) PT INR APTT Fibrinogen D-Dimer POC ABG pH 7.452 H POC ABG pCO2 22.2 L POC ABG pO2 75 L Sodium Potassium Chloride Carbon Dioxide BUN Creatinine Glucose POC Glucose 119 H Lactic Acid Calcium Phosphorus Magnesium TIBC Ferritin Total Bilirubin Direct Bilirubin AST Ammonia Lactate Dehydrogenase NT-Pro-B Natriuret Pep Total Protein Albumin Lipase Vitamin B12 Urine WBC (Auto) Urine Creatinine Ur Creatinine 24 Hour Digoxin Crossmatch 12/12/17 12/12/17 12/12/17 19:50 19:50 19:50 RBC 2.40 L Hgb 7.8 L Hct 21.3 L MCV MCH 33 H MCHC 37 H RDW 16.1 H Plt Count 99 L Lymph % (Auto) [place] % (Auto) Baso % (Auto) Lymph # [place] # Baso # Seg Neutrophils % Seg Neuts % (Manual) 87.0 H Lymphocytes % (Manual) 5.0 L Lymphocytes # (Manual) 0.3 L PT 21.9 H INR 1.79 H APTT 41.5 H Fibrinogen 128 L D-Dimer 1215.06 H POC ABG pH POC ABG pCO2 POC ABG pO2 Sodium Potassium Chloride Carbon Dioxide BUN Creatinine Glucose POC Glucose Lactic Acid Calcium Phosphorus Magnesium TIBC Ferritin Total Bilirubin 4.10 H Direct Bilirubin 1.6 H AST Ammonia Lactate Dehydrogenase NT-Pro-B Natriuret Pep Total Protein Albumin Lipase Vitamin B12 Urine WBC (Auto) Urine Creatinine Ur Creatinine 24 Hour Digoxin Crossmatch 12/12/17 12/12/17 12/12/17 19:50 19:50 23:46 RBC Hgb Hct MCV MCH MCHC RDW Plt Count Lymph % (Auto) [place] % (Auto) Baso % (Auto) Lymph # [place] # Baso # Seg Neutrophils % Seg Neuts % (Manual) Lymphocytes % (Manual) Lymphocytes # (Manual) PT INR APTT Fibrinogen D-Dimer POC ABG pH POC ABG pCO2 POC ABG pO2 Sodium Potassium Chloride Carbon Dioxide BUN Creatinine Glucose POC Glucose 110 H Lactic Acid Calcium Phosphorus Magnesium TIBC Ferritin Total Bilirubin Direct Bilirubin AST Ammonia Lactate Dehydrogenase 213 H NT-Pro-B Natriuret Pep Total Protein Albumin Lipase Vitamin B12 1465 H Urine WBC (Auto) Urine Creatinine Ur Creatinine 24 Hour Digoxin Crossmatch 12/13/17 12/13/17 12/13/17 04:00 04:00 05:12 RBC 2.32 L Hgb 7.4 L Hct 20.8 L MCV MCH MCHC 36 H RDW 16.1 H Plt Count 134 L Lymph % (Auto) 13.1 L [place] % (Auto) 7.9 H Baso % (Auto) Lymph # 0.8 L [place] # Baso # Seg Neutrophils % 76.3 H Seg Neuts % (Manual) Lymphocytes % (Manual) Lymphocytes # (Manual) PT INR APTT Fibrinogen D-Dimer POC ABG pH POC ABG pCO2 POC ABG pO2 Sodium Potassium Chloride Carbon Dioxide 21 L D BUN 48 H Creatinine 4.6 H Glucose 104 H POC Glucose 134 H Lactic Acid Calcium 8.1 L Phosphorus Magnesium TIBC Ferritin Total Bilirubin 4.70 H Direct Bilirubin AST 43 H Ammonia Lactate Dehydrogenase NT-Pro-B Natriuret Pep Total Protein 5.8 L Albumin 3.1 L Lipase Vitamin B12 Urine WBC (Auto) Urine Creatinine Ur Creatinine 24 Hour Digoxin Crossmatch 12/13/17 12/13/17 12/13/17 08:45 12:25 14:03 RBC Hgb Hct MCV MCH MCHC RDW Plt Count Lymph % (Auto) [place] % (Auto) Baso % (Auto) Lymph # [place] # Baso # Seg Neutrophils % Seg Neuts % (Manual) Lymphocytes % (Manual) Lymphocytes # (Manual) PT 20.5 H INR 1.65 H APTT Fibrinogen D-Dimer POC ABG pH POC ABG pCO2 POC ABG pO2 Sodium Potassium Chloride Carbon Dioxide BUN Creatinine Glucose POC Glucose 112 H Lactic Acid 3.70 H* Calcium Phosphorus Magnesium TIBC Ferritin Total Bilirubin Direct Bilirubin AST Ammonia Lactate Dehydrogenase NT-Pro-B Natriuret Pep Total Protein Albumin Lipase Vitamin B12 Urine WBC (Auto) Urine Creatinine Ur Creatinine 24 Hour Digoxin Crossmatch 12/13/17 12/13/17 12/13/17 14:03 18:52 21:09 RBC Hgb Hct MCV MCH MCHC RDW Plt Count Lymph % (Auto) [place] % (Auto) Baso % (Auto) Lymph # [place] # Baso # Seg Neutrophils % Seg Neuts % (Manual) Lymphocytes % (Manual) Lymphocytes # (Manual) PT INR APTT Fibrinogen D-Dimer POC ABG pH POC ABG pCO2 POC ABG pO2 Sodium Potassium Chloride Carbon Dioxide BUN Creatinine Glucose POC Glucose 110 H Lactic Acid 4.00 H* Calcium Phosphorus Magnesium TIBC Ferritin Total Bilirubin Direct Bilirubin AST Ammonia 87.0 H Lactate Dehydrogenase NT-Pro-B Natriuret Pep Total Protein Albumin Lipase Vitamin B12 Urine WBC (Auto) Urine Creatinine Ur Creatinine 24 Hour Digoxin Crossmatch 12/14/17 12/14/17 12/14/17 00:25 03:30 03:30 RBC 2.29 L Hgb 7.3 L Hct 20.7 L MCV MCH MCHC 35 H RDW 16.2 H Plt Count 84 L Lymph % (Auto) 12.8 L [place] % (Auto) 8.3 H Baso % (Auto) Lymph # 0.6 L [place] # Baso # Seg Neutrophils % 77.2 H Seg Neuts % (Manual) Lymphocytes % (Manual) Lymphocytes # (Manual) PT INR APTT Fibrinogen D-Dimer POC ABG pH POC ABG pCO2 POC ABG pO2 Sodium Potassium Chloride 96.1 L Carbon Dioxide BUN 48 H Creatinine 4.6 H Glucose 125 H POC Glucose 131 H Lactic Acid Calcium 7.9 L Phosphorus Magnesium TIBC Ferritin Total Bilirubin 4.70 H Direct Bilirubin AST 45 H Ammonia Lactate Dehydrogenase NT-Pro-B Natriuret Pep Total Protein 6.1 L Albumin 3.4 L Lipase Vitamin B12 Urine WBC (Auto) Urine Creatinine Ur Creatinine 24 Hour Digoxin Crossmatch 12/14/17 12/14/17 12/14/17 05:31 12:26 12:55 RBC Hgb Hct MCV MCH MCHC RDW Plt Count Lymph % (Auto) [place] % (Auto) Baso % (Auto) Lymph # [place] # Baso # Seg Neutrophils % Seg Neuts % (Manual) Lymphocytes % (Manual) Lymphocytes # (Manual) PT INR APTT Fibrinogen D-Dimer POC ABG pH POC ABG pCO2 POC ABG pO2 Sodium Potassium Chloride Carbon Dioxide BUN Creatinine Glucose POC Glucose 125 H 117 H Lactic Acid 3.40 H* Calcium Phosphorus Magnesium TIBC Ferritin Total Bilirubin Direct Bilirubin AST Ammonia Lactate Dehydrogenase NT-Pro-B Natriuret Pep Total Protein Albumin Lipase Vitamin B12 Urine WBC (Auto) Urine Creatinine Ur Creatinine 24 Hour Digoxin Crossmatch 12/14/17 12/14/17 12/14/17 15:26 17:26 18:07 RBC Hgb Hct MCV MCH MCHC RDW Plt Count Lymph % (Auto) [place] % (Auto) Baso % (Auto) Lymph # [place] # Baso # Seg Neutrophils % Seg Neuts % (Manual) Lymphocytes % (Manual) Lymphocytes # (Manual) PT INR APTT Fibrinogen D-Dimer POC ABG pH POC ABG pCO2 POC ABG pO2 Sodium Potassium Chloride Carbon Dioxide BUN Creatinine Glucose POC Glucose 143 H Lactic Acid 4.00 H* 3.90 H* Calcium Phosphorus Magnesium TIBC Ferritin Total Bilirubin Direct Bilirubin AST Ammonia Lactate Dehydrogenase NT-Pro-B Natriuret Pep Total Protein Albumin Lipase Vitamin B12 Urine WBC (Auto) Urine Creatinine Ur Creatinine 24 Hour Digoxin Crossmatch 12/14/17 12/15/17 12/15/17 Unknown 00:08 04:51 RBC 2.27 L Hgb 7.3 L Hct 20.7 L MCV MCH MCHC 35 H RDW 16.1 H Plt Count 92 L Lymph % (Auto) 12.5 L [place] % (Auto) 10.4 H Baso % (Auto) Lymph # 0.6 L [place] # Baso # Seg Neutrophils % 74.7 H Seg Neuts % (Manual) Lymphocytes % (Manual) Lymphocytes # (Manual) PT INR APTT Fibrinogen D-Dimer POC ABG pH POC ABG pCO2 POC ABG pO2 Sodium Potassium Chloride Carbon Dioxide BUN Creatinine Glucose POC Glucose 124 H Lactic Acid Calcium Phosphorus Magnesium TIBC Ferritin Total Bilirubin Direct Bilirubin AST Ammonia Lactate Dehydrogenase NT-Pro-B Natriuret Pep Total Protein Albumin Lipase Vitamin B12 Urine WBC (Auto) Urine Creatinine 122.5 H Ur Creatinine 24 Hour 0.3 L Digoxin Crossmatch 12/15/17 12/15/17 12/15/17 04:51 04:51 05:56 RBC Hgb Hct MCV MCH MCHC RDW Plt Count Lymph % (Auto) [place] % (Auto) Baso % (Auto) Lymph # [place] # Baso # Seg Neutrophils % Seg Neuts % (Manual) Lymphocytes % (Manual) Lymphocytes # (Manual) PT INR APTT Fibrinogen D-Dimer POC ABG pH POC ABG pCO2 POC ABG pO2 Sodium Potassium 3.5 L Chloride 92.6 L Carbon Dioxide BUN 50 H Creatinine 4.8 H Glucose 141 H POC Glucose 143 H Lactic Acid Calcium 7.9 L Phosphorus Magnesium TIBC Ferritin Total Bilirubin 3.60 H Direct Bilirubin AST 44 H Ammonia 24.0 L Lactate Dehydrogenase NT-Pro-B Natriuret Pep Total Protein 6.1 L Albumin 3.8 L Lipase Vitamin B12 Urine WBC (Auto) Urine Creatinine Ur Creatinine 24 Hour Digoxin Crossmatch 12/15/17 12/15/17 12/16/17 12:17 23:10 07:04 RBC Hgb Hct MCV MCH MCHC RDW Plt Count Lymph % (Auto) [place] % (Auto) Baso % (Auto) Lymph # [place] # Baso # Seg Neutrophils % Seg Neuts % (Manual) Lymphocytes % (Manual) Lymphocytes # (Manual) PT INR APTT Fibrinogen D-Dimer POC ABG pH POC ABG pCO2 POC ABG pO2 Sodium Potassium Chloride Carbon Dioxide BUN Creatinine Glucose POC Glucose 127 H 157 H 147 H Lactic Acid Calcium Phosphorus Magnesium TIBC Ferritin Total Bilirubin Direct Bilirubin AST Ammonia Lactate Dehydrogenase NT-Pro-B Natriuret Pep Total Protein Albumin Lipase Vitamin B12 Urine WBC (Auto) Urine Creatinine Ur Creatinine 24 Hour Digoxin Crossmatch 12/16/17 12/16/17 12/16/17 11:35 12:37 12:37 RBC 2.21 L Hgb 6.9 L Hct 20.2 L MCV MCH MCHC RDW 16.2 H Plt Count 50 L Lymph % (Auto) [place] % (Auto) 9.7 H Baso % (Auto) Lymph # 0.7 L [place] # Baso # Seg Neutrophils % 73.1 H Seg Neuts % (Manual) Lymphocytes % (Manual) Lymphocytes # (Manual) PT INR APTT Fibrinogen D-Dimer POC ABG pH POC ABG pCO2 POC ABG pO2 Sodium Potassium Chloride 88.2 L Carbon Dioxide BUN 52 H Creatinine 5.5 H Glucose 107 H POC Glucose 134 H Lactic Acid Calcium 7.8 L Phosphorus Magnesium TIBC Ferritin Total Bilirubin 2.60 H Direct Bilirubin AST 49 H Ammonia Lactate Dehydrogenase NT-Pro-B Natriuret Pep Total Protein Albumin 3.6 L Lipase Vitamin B12 Urine WBC (Auto) Urine Creatinine Ur Creatinine 24 Hour Digoxin Crossmatch 12/16/17 12/16/17 12/16/17 18:06 20:45 23:34 RBC Hgb Hct MCV MCH MCHC RDW Plt Count Lymph % (Auto) [place] % (Auto) Baso % (Auto) Lymph # [place] # Baso # Seg Neutrophils % Seg Neuts % (Manual) Lymphocytes % (Manual) Lymphocytes # (Manual) PT INR APTT Fibrinogen D-Dimer POC ABG pH POC ABG pCO2 POC ABG pO2 Sodium Potassium Chloride Carbon Dioxide BUN Creatinine Glucose POC Glucose 133 H 139 H Lactic Acid Calcium Phosphorus Magnesium TIBC Ferritin Total Bilirubin Direct Bilirubin AST Ammonia Lactate Dehydrogenase NT-Pro-B Natriuret Pep Total Protein Albumin Lipase Vitamin B12 Urine WBC (Auto) Urine Creatinine Ur Creatinine 24 Hour Digoxin Crossmatch See Detail 12/17/17 12/17/17 12/17/17 05:27 05:27 06:11 RBC 2.10 L Hgb 6.6 L Hct 19.2 L* MCV MCH MCHC 35 H RDW 16.5 H Plt Count 65 L Lymph % (Auto) 12.6 L [place] % (Auto) 9.6 H Baso % (Auto) Lymph # 0.7 L [place] # Baso # Seg Neutrophils % 75.8 H Seg Neuts % (Manual) Lymphocytes % (Manual) Lymphocytes # (Manual) PT INR APTT Fibrinogen D-Dimer POC ABG pH POC ABG pCO2 POC ABG pO2 Sodium 135 L Potassium 3.4 L Chloride 84.9 L Carbon Dioxide 33 H BUN 53 H Creatinine 5.9 H Glucose POC Glucose 110 H Lactic Acid Calcium 7.7 L Phosphorus Magnesium TIBC Ferritin Total Bilirubin 2.70 H Direct Bilirubin AST 50 H Ammonia Lactate Dehydrogenase NT-Pro-B Natriuret Pep Total Protein 6.2 L Albumin 3.7 L Lipase Vitamin B12 Urine WBC (Auto) Urine Creatinine Ur Creatinine 24 Hour Digoxin Crossmatch 12/17/17 12/18/17 12/18/17 09:34 00:05 05:21 RBC 3.35 L Hgb 10.3 L D Hct 30.4 L D MCV MCH MCHC RDW 16.2 H Plt Count 57 L Lymph % (Auto) 8.0 L [place] % (Auto) 10.9 H Baso % (Auto) Lymph # 0.6 L [place] # Baso # Seg Neutrophils % 80.2 H Seg Neuts % (Manual) Lymphocytes % (Manual) Lymphocytes # (Manual) PT 23.9 H INR 1.99 H APTT Fibrinogen D-Dimer POC ABG pH POC ABG pCO2 POC ABG pO2 Sodium Potassium Chloride Carbon Dioxide BUN Creatinine Glucose POC Glucose 132 H Lactic Acid Calcium Phosphorus Magnesium TIBC Ferritin Total Bilirubin Direct Bilirubin AST Ammonia Lactate Dehydrogenase NT-Pro-B Natriuret Pep Total Protein Albumin Lipase Vitamin B12 Urine WBC (Auto) Urine Creatinine Ur Creatinine 24 Hour Digoxin Crossmatch 12/18/17 12/18/17 12/18/17 05:21 06:16 11:11 RBC Hgb Hct MCV MCH MCHC RDW Plt Count Lymph % (Auto) [place] % (Auto) Baso % (Auto) Lymph # [place] # Baso # Seg Neutrophils % Seg Neuts % (Manual) Lymphocytes % (Manual) Lymphocytes # (Manual) PT 34.7 H INR 3.17 H APTT Fibrinogen D-Dimer POC ABG pH POC ABG pCO2 POC ABG pO2 Sodium Potassium 3.5 L Chloride 87.1 L Carbon Dioxide BUN 35 H Creatinine 4.3 H Glucose 110 H POC Glucose 116 H Lactic Acid Calcium 8.1 L Phosphorus Magnesium TIBC Ferritin Total Bilirubin 5.10 H Direct Bilirubin AST 56 H Ammonia Lactate Dehydrogenase NT-Pro-B Natriuret Pep Total Protein Albumin Lipase Vitamin B12 Urine WBC (Auto) Urine Creatinine Ur Creatinine 24 Hour Digoxin Crossmatch 12/18/17 12/18/17 12/18/17 13:10 17:52 22:04 RBC Hgb Hct MCV MCH MCHC RDW Plt Count Lymph % (Auto) [place] % (Auto) Baso % (Auto) Lymph # [place] # Baso # Seg Neutrophils % Seg Neuts % (Manual) Lymphocytes % (Manual) Lymphocytes # (Manual) PT 25.9 H INR 2.20 H APTT Fibrinogen D-Dimer POC ABG pH POC ABG pCO2 POC ABG pO2 Sodium Potassium Chloride Carbon Dioxide BUN Creatinine Glucose POC Glucose 114 H 108 H Lactic Acid Calcium Phosphorus Magnesium TIBC Ferritin Total Bilirubin Direct Bilirubin AST Ammonia Lactate Dehydrogenase NT-Pro-B Natriuret Pep Total Protein Albumin Lipase Vitamin B12 Urine WBC (Auto) Urine Creatinine Ur Creatinine 24 Hour Digoxin Crossmatch 12/19/17 12/19/17 12/19/17 05:55 05:55 10:20 RBC 2.85 L Hgb 9.1 L Hct 25.7 L MCV MCH MCHC 35 H RDW 16.4 H Plt Count 61 L Lymph % (Auto) [place] % (Auto) Baso % (Auto) Lymph # [place] # Baso # Seg Neutrophils % Seg Neuts % (Manual) Lymphocytes % (Manual) Lymphocytes # (Manual) PT INR APTT Fibrinogen D-Dimer POC ABG pH POC ABG pCO2 POC ABG pO2 Sodium Potassium Chloride 94.5 L Carbon Dioxide BUN 27 H Creatinine 3.6 H Glucose POC Glucose 131 H Lactic Acid Calcium 8.2 L Phosphorus Magnesium TIBC Ferritin Total Bilirubin Direct Bilirubin AST Ammonia Lactate Dehydrogenase NT-Pro-B Natriuret Pep Total Protein Albumin Lipase Vitamin B12 Urine WBC (Auto) Urine Creatinine Ur Creatinine 24 Hour Digoxin Crossmatch 12/19/17 12/21/17 12/21/17 11:46 05:26 05:26 RBC 2.60 L Hgb 8.4 L Hct 23.9 L MCV MCH MCHC 35 H RDW 16.2 H Plt Count 57 L Lymph % (Auto) 12.4 L [place] % (Auto) 10.7 H Baso % (Auto) Lymph # [place] # 1.0 H Baso # Seg Neutrophils % 74.8 H Seg Neuts % (Manual) Lymphocytes % (Manual) Lymphocytes # (Manual) PT 26.2 H INR 2.23 H APTT Fibrinogen D-Dimer POC ABG pH POC ABG pCO2 POC ABG pO2 Sodium Potassium Chloride Carbon Dioxide BUN Creatinine Glucose POC Glucose Lactic Acid Calcium Phosphorus Magnesium TIBC Ferritin Total Bilirubin Direct Bilirubin AST Ammonia Lactate Dehydrogenase NT-Pro-B Natriuret Pep Total Protein Albumin Lipase Vitamin B12 Urine WBC (Auto) Urine Creatinine Ur Creatinine 24 Hour Digoxin 0.4 L Crossmatch 12/21/17 12/23/17 12/24/17 09:40 08:15 04:51 RBC 1.80 L Hgb 5.9 L* Hct 17.0 L* D MCV MCH 33 H MCHC 35 H RDW 16.5 H Plt Count 53 L Lymph % (Auto) [place] % (Auto) Baso % (Auto) Lymph # [place] # Baso # Seg Neutrophils % Seg Neuts % (Manual) Lymphocytes % (Manual) Lymphocytes # (Manual) PT 26.4 H 27.9 H INR 2.26 H 2.42 H APTT Fibrinogen D-Dimer POC ABG pH POC ABG pCO2 POC ABG pO2 Sodium Potassium Chloride Carbon Dioxide BUN Creatinine Glucose POC Glucose Lactic Acid Calcium Phosphorus Magnesium TIBC Ferritin Total Bilirubin Direct Bilirubin AST Ammonia Lactate Dehydrogenase NT-Pro-B Natriuret Pep Total Protein Albumin Lipase Vitamin B12 Urine WBC (Auto) Urine Creatinine Ur Creatinine 24 Hour Digoxin Crossmatch 12/24/17 12/24/17 12/24/17 04:51 06:25 08:20 RBC Hgb Hct MCV MCH MCHC RDW Plt Count Lymph % (Auto) [place] % (Auto) Baso % (Auto) Lymph # [place] # Baso # Seg Neutrophils % Seg Neuts % (Manual) Lymphocytes % (Manual) Lymphocytes # (Manual) PT 40.8 H INR 3.87 H APTT Fibrinogen D-Dimer POC ABG pH POC ABG pCO2 POC ABG pO2 Sodium Potassium 3.5 L Chloride Carbon Dioxide BUN 21 H Creatinine 4.4 H Glucose POC Glucose Lactic Acid Calcium 8.1 L Phosphorus Magnesium TIBC Ferritin Total Bilirubin Direct Bilirubin AST Ammonia Lactate Dehydrogenase NT-Pro-B Natriuret Pep Total Protein Albumin Lipase Vitamin B12 Urine WBC (Auto) Urine Creatinine Ur Creatinine 24 Hour Digoxin Crossmatch See Detail 12/24/17 12/24/17 12/25/17 19:21 19:21 05:27 RBC 2.31 L Hgb 7.3 L 7.4 L Hct 20.4 L 21.3 L MCV MCH MCHC 35 H RDW 15.9 H Plt Count 39 L Lymph % (Auto) [place] % (Auto) 10.8 H Baso % (Auto) Lymph # 0.9 L [place] # Baso # Seg Neutrophils % 71.9 H Seg Neuts % (Manual) Lymphocytes % (Manual) Lymphocytes # (Manual) PT 21.3 H INR 1.73 H APTT Fibrinogen D-Dimer POC ABG pH POC ABG pCO2 POC ABG pO2 Sodium Potassium Chloride Carbon Dioxide BUN Creatinine Glucose POC Glucose Lactic Acid Calcium Phosphorus Magnesium TIBC Ferritin Total Bilirubin Direct Bilirubin AST Ammonia Lactate Dehydrogenase NT-Pro-B Natriuret Pep Total Protein Albumin Lipase Vitamin B12 Urine WBC (Auto) Urine Creatinine Ur Creatinine 24 Hour Digoxin Crossmatch 12/25/17 12/25/17 12/25/17 05:27 05:27 12:24 RBC Hgb Hct MCV MCH MCHC RDW Plt Count Lymph % (Auto) [place] % (Auto) Baso % (Auto) Lymph # [place] # Baso # Seg Neutrophils % Seg Neuts % (Manual) Lymphocytes % (Manual) Lymphocytes # (Manual) PT 22.1 H INR 1.81 H APTT Fibrinogen D-Dimer POC ABG pH POC ABG pCO2 POC ABG pO2 Sodium Potassium 3.5 L Chloride 96.7 L Carbon Dioxide BUN Creatinine 3.2 H Glucose POC Glucose 140 H Lactic Acid Calcium 8.1 L Phosphorus Magnesium TIBC Ferritin Total Bilirubin Direct Bilirubin AST Ammonia Lactate Dehydrogenase NT-Pro-B Natriuret Pep Total Protein Albumin Lipase Vitamin B12 Urine WBC (Auto) Urine Creatinine Ur Creatinine 24 Hour Digoxin Crossmatch 12/26/17 12/26/17 12/27/17 05:59 05:59 06:34 RBC 2.01 L 2.52 L Hgb 6.6 L 8.2 L Hct 18.6 L* 23.2 L MCV MCH 33 H MCHC 35 H 35 H RDW 16.6 H 15.3 H Plt Count 45 L 39 L Lymph % (Auto) 11.6 L [place] % (Auto) 10.3 H 11.2 H Baso % (Auto) Lymph # 1.0 L 0.7 L [place] # Baso # Seg Neutrophils % 72.2 H 75.4 H Seg Neuts % (Manual) Lymphocytes % (Manual) Lymphocytes # (Manual) PT INR APTT Fibrinogen D-Dimer POC ABG pH POC ABG pCO2 POC ABG pO2 Sodium Potassium 3.3 L Chloride Carbon Dioxide BUN Creatinine 3.8 H Glucose 110 H POC Glucose Lactic Acid Calcium Phosphorus 2.40 L Magnesium 1.40 L TIBC Ferritin Total Bilirubin 7.10 H Direct Bilirubin AST 73 H Ammonia Lactate Dehydrogenase NT-Pro-B Natriuret Pep Total Protein Albumin 3.5 L Lipase Vitamin B12 Urine WBC (Auto) Urine Creatinine Ur Creatinine 24 Hour Digoxin Crossmatch 12/27/17 12/27/17 12/27/17 06:34 06:34 06:34 RBC Hgb Hct MCV MCH MCHC RDW Plt Count Lymph % (Auto) [place] % (Auto) Baso % (Auto) Lymph # [place] # Baso # Seg Neutrophils % Seg Neuts % (Manual) Lymphocytes % (Manual) Lymphocytes # (Manual) PT INR APTT Fibrinogen D-Dimer POC ABG pH POC ABG pCO2 POC ABG pO2 Sodium Potassium 3.3 L Chloride 95.4 L Carbon Dioxide BUN Creatinine 2.6 H Glucose 112 H POC Glucose Lactic Acid Calcium 8.1 L Phosphorus Magnesium TIBC 77 L Ferritin > 2000.0 H Total Bilirubin 8.00 H Direct Bilirubin AST 89 H Ammonia Lactate Dehydrogenase 302 H NT-Pro-B Natriuret Pep Total Protein Albumin 3.7 L Lipase Vitamin B12 Urine WBC (Auto) Urine Creatinine Ur Creatinine 24 Hour Digoxin Crossmatch 12/28/17 12/28/17 12/29/17 06:24 09:00 00:30 RBC 2.25 L Hgb 7.5 L Hct 21.1 L MCV MCH 33 H MCHC 35 H RDW 16.2 H Plt Count 78 L D Lymph % (Auto) 12.5 L [place] % (Auto) 12.3 H Baso % (Auto) Lymph # 0.9 L [place] # 0.9 H Baso # Seg Neutrophils % 73.3 H Seg Neuts % (Manual) Lymphocytes % (Manual) Lymphocytes # (Manual) PT 23.7 H INR 1.97 H APTT 53.1 H Fibrinogen D-Dimer POC ABG pH POC ABG pCO2 POC ABG pO2 Sodium Potassium Chloride Carbon Dioxide BUN Creatinine Glucose POC Glucose 148 H Lactic Acid Calcium Phosphorus Magnesium TIBC Ferritin Total Bilirubin Direct Bilirubin AST Ammonia Lactate Dehydrogenase NT-Pro-B Natriuret Pep Total Protein Albumin Lipase Vitamin B12 Urine WBC (Auto) Urine Creatinine Ur Creatinine 24 Hour Digoxin Crossmatch 12/29/17 12/29/17 12/29/17 00:34 03:59 03:59 RBC 2.19 L Hgb 7.2 L Hct 20.7 L MCV 95 H MCH 33 H MCHC 35 H RDW 16.9 H Plt Count 75 L Lymph % (Auto) [place] % (Auto) 10.8 H Baso % (Auto) Lymph # [place] # Baso # Seg Neutrophils % 70.8 H Seg Neuts % (Manual) Lymphocytes % (Manual) Lymphocytes # (Manual) PT 25.7 H INR 2.18 H APTT Fibrinogen D-Dimer POC ABG pH POC ABG pCO2 POC ABG pO2 Sodium Potassium Chloride Carbon Dioxide BUN Creatinine 2.3 H Glucose 111 H POC Glucose Lactic Acid Calcium Phosphorus Magnesium TIBC Ferritin Total Bilirubin 8.20 H Direct Bilirubin AST 66 H Ammonia Lactate Dehydrogenase NT-Pro-B Natriuret Pep Total Protein Albumin 3.5 L Lipase Vitamin B12 Urine WBC (Auto) Urine Creatinine Ur Creatinine 24 Hour Digoxin Crossmatch 0812/30/17 12/30/17 07:35 07:51 08:27 RBC 1.97 L Hgb 6.7 L Hct 18.8 L* MCV 96 H MCH 34 H MCHC 36 H RDW 17.6 H Plt Count 76 L Lymph % (Auto) [place] % (Auto) 10.5 H Baso % (Auto) Lymph # 1.0 L [place] # Baso # Seg Neutrophils % 72.4 H Seg Neuts % (Manual) Lymphocytes % (Manual) Lymphocytes # (Manual) PT INR APTT Fibrinogen D-Dimer POC ABG pH POC ABG pCO2 POC ABG pO2 Sodium Potassium Chloride Carbon Dioxide BUN Creatinine Glucose POC Glucose 113 H Lactic Acid Calcium Phosphorus Magnesium 1.50 L TIBC Ferritin Total Bilirubin Direct Bilirubin AST Ammonia Lactate Dehydrogenase NT-Pro-B Natriuret Pep Total Protein Albumin Lipase Vitamin B12 Urine WBC (Auto) Urine Creatinine Ur Creatinine 24 Hour Digoxin Crossmatch 12/30/17 12/31/17 12/31/17 08:44 12:59 12:59 RBC 2.49 L Hgb 8.3 L Hct 23.0 L MCV MCH 33 H MCHC 36 H RDW 17.5 H Plt Count 69 L Lymph % (Auto) [place] % (Auto) 13.0 H Baso % (Auto) 1.9 H Lymph # 1.1 L [place] # 0.9 H Baso # Seg Neutrophils % Seg Neuts % (Manual) Lymphocytes % (Manual) Lymphocytes # (Manual) PT INR APTT Fibrinogen D-Dimer POC ABG pH POC ABG pCO2 POC ABG pO2 Sodium Potassium Chloride Carbon Dioxide BUN 21 H Creatinine 3.8 H D Glucose 114 H POC Glucose Lactic Acid Calcium Phosphorus Magnesium TIBC Ferritin Total Bilirubin 8.30 H Direct Bilirubin AST 46 H Ammonia Lactate Dehydrogenase NT-Pro-B Natriuret Pep Total Protein Albumin Lipase Vitamin B12 Urine WBC (Auto) Urine Creatinine Ur Creatinine 24 Hour Digoxin Crossmatch See Detail 12/31/17 01/01/18 01/01/18 12:59 05:27 05:27 RBC 2.69 L Hgb 9.1 L Hct 25.1 L MCV MCH 34 H MCHC 36 H RDW 17.5 H Plt Count 64 L Lymph % (Auto) 12.5 L [place] % (Auto) 14.4 H Baso % (Auto) Lymph # 0.9 L [place] # 1.1 H Baso # Seg Neutrophils % 70.4 H Seg Neuts % (Manual) Lymphocytes % (Manual) Lymphocytes # (Manual) PT 19.7 H 22.1 H INR 1.57 H 1.81 H APTT Fibrinogen D-Dimer POC ABG pH POC ABG pCO2 POC ABG pO2 Sodium Potassium Chloride Carbon Dioxide BUN Creatinine Glucose POC Glucose Lactic Acid Calcium Phosphorus Magnesium TIBC Ferritin Total Bilirubin Direct Bilirubin AST Ammonia Lactate Dehydrogenase NT-Pro-B Natriuret Pep Total Protein Albumin Lipase Vitamin B12 Urine WBC (Auto) Urine Creatinine Ur Creatinine 24 Hour Digoxin Crossmatch 01/01/18 01/03/18 01/03/18 05:27 06:24 06:24 RBC 2.62 L Hgb 8.7 L Hct 25.6 L MCV 98 H MCH 33 H MCHC RDW 19.4 H Plt Count 55 L Lymph % (Auto) [place] % (Auto) 10.9 H Baso % (Auto) 2.7 H Lymph # 1.1 L [place] # 0.9 H Baso # 0.2 H Seg Neutrophils % Seg Neuts % (Manual) Lymphocytes % (Manual) Lymphocytes # (Manual) PT 24.1 H INR 2.01 H APTT Fibrinogen D-Dimer POC ABG pH POC ABG pCO2 POC ABG pO2 Sodium Potassium Chloride Carbon Dioxide BUN Creatinine 2.8 H Glucose POC Glucose Lactic Acid Calcium Phosphorus Magnesium TIBC Ferritin Total Bilirubin 9.20 H Direct Bilirubin AST 49 H Ammonia Lactate Dehydrogenase NT-Pro-B Natriuret Pep Total Protein Albumin 3.8 L Lipase Vitamin B12 Urine WBC (Auto) Urine Creatinine Ur Creatinine 24 Hour Digoxin Crossmatch 01/03/18 06:24 RBC Hgb Hct MCV MCH MCHC RDW Plt Count Lymph % (Auto) [place] % (Auto) Baso % (Auto) Lymph # [place] # Baso # Seg Neutrophils % Seg Neuts % (Manual) Lymphocytes % (Manual) Lymphocytes # (Manual) PT INR APTT Fibrinogen D-Dimer POC ABG pH POC ABG pCO2 POC ABG pO2 Sodium Potassium Chloride Carbon Dioxide BUN Creatinine Glucose POC Glucose Lactic Acid Calcium Phosphorus Magnesium TIBC Ferritin Total Bilirubin 9.00 H Direct Bilirubin 2.7 H AST 50 H Ammonia Lactate Dehydrogenase NT-Pro-B Natriuret Pep Total Protein Albumin 3.6 L Lipase Vitamin B12 Urine WBC (Auto) Urine Creatinine Ur Creatinine 24 Hour Digoxin Crossmatch Allied health notes reviewed: nursing
--- NOTE | 2018-01-03 20:21 | Progress Note ---
Assessment and Plan Assessment and plan: --Cirrhosis with esophageal varices. Ascites s/p paracentesis ,follow fluid analysis --Bilateral pleural effusion right greater than left. Manager Behavioral recommends giving FFP and possible thoracentesis if needed --Coagulopathy; secondary to cirrhosis liver Received vitamin K subcutaneous 1 dose, FFP's --Acute blood loss anemia. Patient Received 2 units of PRBC , total 11 units during this admission EGD negative for esophageal variceal bleeding, Hb today 9.1 --Severe thrombocytopenia; probably secondary to cirrhosis --NSVT, resolved ; continue Lopressor --Septic/hypovolemic shock. On midodrine, --Sepsis;cultures negative --Rectal bleeding; resolved GI following --Toxic metabolic/hepatic encephalopathy. Hyperammonemia on admission. Resolved --Acute on chronic kidney disease : ATN/sepsis/hypotension. On hemodialysis,Outpatient dialysis per case management --Hepatorenal syndrome; on HD, nephrology following Plan of care Discussed with patient and at bedside today Plan of care reviewed with the and his and his nurse Possible discharge in 1-2 days if stable [facility] for further management I talked to Dr. [facility] updated patient's clinical status. History Interval history: Patient seen and examined medical records reviewed Feels very tired cachectic emaciated Complaints of generalized weakness Vital signs reviewed Hospitalist Physical - Constitutional Vitals: Temp Pulse Resp BP Pulse Ox 97.9 F 77 18 93/56 94 01/03/18 16:13 01/03/18 16:13 01/03/18 16:13 01/03/18 16:13 01/03/18 16:13 General appearance: Present: mild distress, well-nourished - EENT Eyes: Present: PERRL, EOM intact - Neck Neck: Present: supple, normal ROM - Respiratory Respiratory effort: normal Respiratory: bilateral: diminished, rales, negative: rhonchi, wheezing - Cardiovascular Rhythm: regular - Extremities Extremities: no ischemia, No edema - Abdominal General gastrointestinal: soft, non-tender, non-distended, normal bowel sounds - Psychiatric Psychiatric: appropriate mood/affect, cooperative - Neurologic Neurologic: CNII-XII intact Results - Labs CBC & Chem 7: 01/03/18 06:24 01/01/18 05:27 Labs: Laboratory Last Values WBC 7.9 K/mm3 (4.5-11.0) 01/03/18 06:24 RBC 2.62 M/mm3 (3.65-5.03) L 01/03/18 06:24 Hgb 8.7 gm/dl (11.8-15.2) L 01/03/18 06:24 Hct 25.6 % (35.5-45.6) L 01/03/18 06:24 MCV 98 fl (84-94) H 01/03/18 06:24 MCH 33 pg (28-32) H 01/03/18 06:24 MCHC 34 % (32-34) 01/03/18 06:24 RDW 19.4 % (13.2-15.2) H 01/03/18 06:24 Plt Count 55 K/mm3 (140-440) L 01/03/18 06:24 Lymph % (Auto) 14.3 % (13.4-35.0) 01/03/18 06:24 [place] % (Auto) 10.9 % (0.0-7.3) H 01/03/18 06:24 Eos % (Auto) 2.2 % (0.0-4.3) 01/03/18 06:24 Baso % (Auto) 2.7 % (0.0-1.8) H 01/03/18 06:24 Lymph # 1.1 K/mm3 (1.2-5.4) L 01/03/18 06:24 [place] # 0.9 K/mm3 (0.0-0.8) H 01/03/18 06:24 Eos # 0.2 K/mm3 (0.0-0.4) 01/03/18 06:24 Baso # 0.2 K/mm3 (0.0-0.1) H 01/03/18 06:24 Add Manual Diff Complete 12/12/17 19:50 Total Counted 100 12/12/17 19:50 Seg Neutrophils % 69.9 % (40.0-70.0) 01/03/18 06:24 Seg Neuts % (Manual) 87.0 % (40.0-70.0) H 12/12/17 19:50 Band Neutrophils % 0 % 12/12/17 19:50 Lymphocytes % (Manual) 5.0 % (13.4-35.0) L 12/12/17 19:50 Reactive Lymphs % (Man) 0 % 12/12/17 19:50 Monocytes % (Manual) 6.0 % (0.0-7.3) 12/12/17 19:50 Eosinophils % (Manual) 2.0 % (0.0-4.3) 12/12/17 19:50 Basophils % (Manual) 0 % (0.0-1.8) 12/12/17 19:50 Metamyelocytes % 0 % 12/12/17 19:50 Myelocytes % 0 % 12/12/17 19:50 Promyelocytes % 0 % 12/12/17 19:50 Blast Cells % 0 % 12/12/17 19:50 Nucleated RBC % Not Reportable 12/12/17 19:50 Seg Neutrophils # 5.5 K/mm3 (1.8-7.7) 01/03/18 06:24 Seg Neutrophils # Man 4.9 K/mm3 (1.8-7.7) 12/12/17 19:50 Band Neutrophils # 0.0 K/mm3 12/12/17 19:50 Lymphocytes # (Manual) 0.3 K/mm3 (1.2-5.4) L 12/12/17 19:50 Abs React Lymphs (Man) 0.0 K/mm3 12/12/17 19:50 Monocytes # (Manual) 0.3 K/mm3 (0.0-0.8) 12/12/17 19:50 Eosinophils # (Manual) 0.1 K/mm3 (0.0-0.4) 12/12/17 19:50 Basophils # (Manual) 0.0 K/mm3 (0.0-0.1) 12/12/17 19:50 Metamyelocytes # 0.0 K/mm3 12/12/17 19:50 Myelocytes # 0.0 K/mm3 12/12/17 19:50 Promyelocytes # 0.0 K/mm3 12/12/17 19:50 Blast Cells # 0.0 K/mm3 12/12/17 19:50 WBC Morphology Not Reportable 12/12/17 19:50 Hypersegmented Neuts Not Reportable 12/12/17 19:50 Hyposegmented Neuts Not Reportable 12/12/17 19:50 Hypogranular Neuts Not Reportable 12/12/17 19:50 Smudge Cells Not Reportable 12/12/17 19:50 Toxic Granulation Not Reportable 12/12/17 19:50 Toxic Vacuolation Not Reportable 12/12/17 19:50 Dohle Bodies Not Reportable 12/12/17 19:50 Pelger-Huet Anomaly Not Reportable 12/12/17 19:50 Eriberto Rods Not Reportable 12/12/17 19:50 Platelet Estimate Appears decreased 12/12/17 19:50 Clumped Platelets Not Reportable 12/12/17 19:50 Plt Clumps, EDTA Not Reportable 12/12/17 19:50 Large Platelets 1+ 12/12/17 19:50 Giant Platelets Not Reportable 12/12/17 19:50 Platelet Satelliting Not Reportable 12/12/17 19:50 Plt Morphology Comment Not Reportable 12/12/17 19:50 RBC Morphology Not Reportable 12/12/17 19:50 Dimorphic RBCs Not Reportable 12/12/17 19:50 Polychromasia Not Reportable 12/12/17 19:50 Hypochromasia 1+ 12/12/17 19:50 Poikilocytosis Not Reportable 12/12/17 19:50 Anisocytosis Not Reportable 12/12/17 19:50 Microcytosis Not Reportable 12/12/17 19:50 Macrocytosis Not Reportable 12/12/17 19:50 Spherocytes Not Reportable 12/12/17 19:50 Pappenheimer Bodies Not Reportable 12/12/17 19:50 Sickle Cells Not Reportable 12/12/17 19:50 Target Cells Not Reportable 12/12/17 19:50 Tear Drop Cells Not Reportable 12/12/17 19:50 Ovalocytes Not Reportable 12/12/17 19:50 Helmet Cells Not Reportable 12/12/17 19:50 [place] Bodies Not Reportable 12/12/17 19:50 [place] Rings Not Reportable 12/12/17 19:50 [place] Cells 1+ 12/12/17 19:50 Bite Cells Not Reportable 12/12/17 19:50 Crenated Cell Not Reportable 12/12/17 19:50 Elliptocytes Not Reportable 12/12/17 19:50 Acanthocytes (Spur) 1+ 12/12/17 19:50 Rouleaux Not Reportable 12/12/17 19:50 Hemoglobin C Crystals Not Reportable 12/12/17 19:50 Schistocytes Not Reportable 12/12/17 19:50 Malaria parasites Not Reportable 12/12/17 19:50 ESR 18 mm/Hr (0-20) 12/12/17 19:50 [place] Bodies Not Reportable 12/12/17 19:50 Hem Pathologist Commnt No 12/12/17 19:50 PT 24.1 Sec. (12.2-14.9) H 01/03/18 06:24 INR 2.01 (0.87-1.13) H 01/03/18 06:24 APTT 53.1 Sec. (24.2-36.6) H 12/28/17 09:00 Fibrinogen 128 mg/dl (211-480) L 12/12/17 19:50 D-Dimer 1215.06 ng/mlDDU (0-234) H 12/12/17 19:50 Factor VIII:C Activity 178 % (50-180) 12/12/17 20:30 POC ABG pH 7.452 (7.35-7.45) H 12/12/17 09:13 POC ABG pCO2 22.2 (35-45) L 12/12/17 09:13 POC ABG pO2 75 (80-105) L 12/12/17 09:13 POC ABG HCO3 15.5 12/12/17 09:13 POC ABG Total CO2 16 12/12/17 09:13 POC ABG O2 Sat 96 12/12/17 09:13 POC ABG Base Excess -8 12/12/17 09:13 FiO2 21 % 12/12/17 09:13 Sodium 141 mmol/L (137-145) 01/01/18 05:27 Potassium 3.9 mmol/L (3.6-5.0) 01/01/18 05:27 Chloride 99.3 mmol/L (98-107) 01/01/18 05:27 Carbon Dioxide 25 mmol/L (22-30) 01/01/18 05:27 Anion Gap 21 mmol/L 01/01/18 05:27 BUN 16 mg/dL (9-20) 01/01/18 05:27 Creatinine 2.8 mg/dL (0.8-1.5) H 01/01/18 05:27 Estimated GFR 28 ml/min 01/01/18 05:27 BUN/Creatinine Ratio 6 % 01/01/18 05:27 Glucose 98 mg/dL (75-100) 01/01/18 05:27 POC Glucose 113 (70-105) H 12/29/17 07:35 Lactic Acid 3.90 mmol/L (0.7-2.0) H* 12/14/17 17:26 Calcium 9.0 mg/dL (8.4-10.2) 01/01/18 05:27 Phosphorus 2.40 mg/dL (2.5-4.5) L 12/26/17 05:59 Magnesium 1.70 mg/dL (1.7-2.3) 01/03/18 06:24 Iron 78 ug/dL (49-181) 12/27/17 06:34 TIBC 77 mcg/dL (250-450) L 12/27/17 06:34 Ferritin > 2000.0 ng/mL (13.0-400.0) H 12/27/17 06:34 Total Bilirubin 9.00 mg/dL (0.1-1.2) H 01/03/18 06:24 Direct Bilirubin 2.7 mg/dL (0-0.2) H 01/03/18 06:24 Indirect Bilirubin 6.3 mg/dL 01/03/18 06:24 AST 50 units/L (5-40) H 01/03/18 06:24 ALT 21 units/L (7-56) 01/03/18 06:24 Alkaline Phosphatase 91 units/L (35-129) 01/03/18 06:24 Ammonia 53.0 umol/L (25-60) 12/18/17 13:10 Lactate Dehydrogenase 302 units/L (91-180) H 12/27/17 06:34 Total Creatine Kinase 64 units/L (55-170) 12/10/17 23:14 C-Reactive Protein 0.30 mg/dL (0.00-1.30) 12/13/17 14:03 NT-Pro-B Natriuret Pep 9558 pg/mL (0-900) H 12/10/17 23:14 Total Protein 7.2 g/dL (6.3-8.2) 01/03/18 06:24 Albumin 3.6 g/dL (3.9-5) L 01/03/18 06:24 Albumin/Globulin Ratio 1.0 % 01/03/18 06:24 Lipase 7 units/L (13-60) L 12/10/17 23:14 Vitamin B12 1465 pg/mL (211-911) H 12/12/17 19:50 Folate 14.04 ng/mL (7.3-26.0) 12/12/17 19:50 TSH 2.560 mlU/mL (0.270-4.200) 12/16/17 12:37 Total Cortisol 8.6 mcg/dL () 12/16/17 12:37 Urine Color Yellow (Yellow) 12/10/17 23:05 Urine Turbidity Clear (Clear) 12/10/17 23:05 Urine pH 5.0 (5.0-7.0) 12/10/17 23:05 Ur Specific [place] 1.013 (1.003-1.030) 12/10/17 23:05 Urine Protein <15 mg/dl mg/dL (Negative) 12/10/17 23:05 Urine Glucose (UA) Neg mg/dL (Negative) 12/10/17 23:05 Urine Ketones Neg mg/dL (Negative) 12/10/17 23:05 Urine Blood Neg (Negative) 12/10/17 23:05 Urine Nitrite Neg (Negative) 12/10/17 23:05 Ur Reducing Substances Not Reportable 12/10/17 23:05 Urine Bilirubin Neg (Negative) 12/10/17 23:05 Urine Ictotest Not Reportable 12/10/17 23:05 Urine Urobilinogen < 2.0 mg/dL (<2.0) 12/10/17 23:05 Ur Leukocyte Esterase Sm (Negative) 12/10/17 23:05 Urine WBC (Auto) 10.0 /HPF (0.0-6.0) H 12/10/17 23:05 Urine RBC (Auto) 4.0 /HPF (0.0-6.0) 12/10/17 23:05 U Epithel Cells (Auto) < 1.0 /HPF (0-13.0) 12/10/17 23:05 Urine Mucus Few /HPF 12/10/17 23:05 Urine Total Volume 250 12/14/17 Unknown Urine Creatinine 122.5 mg/dL (0.1-20.0) H 12/14/17 Unknown Ur Creatinine 24 Hour 0.3 (0.8-2.8) L 12/14/17 Unknown Fluid Type Peritoneal 12/31/17 Unknown Fluid Color Red 12/31/17 Unknown Fluid Appearance Cloudy 12/31/17 Unknown Fluid WBC 55 /mm3 12/31/17 Unknown Fluid RBC 75472 /mm3 12/31/17 Unknown Fluid Seg Neutrophils 6.0 % 12/31/17 Unknown Fluid Lymphocytes 48.0 % 12/31/17 Unknown Fluid Monocytes 46.0 % 12/31/17 Unknown Digoxin 0.4 ng/mL (0.9-2.0) L 12/21/17 05:26 Hepatitis A IgM Ab Non-reactive (NonReactive) 12/12/17 19:50 Hep Bs Antigen Non-reactive (Negative) 12/12/17 19:50 Hep B Core IgM Ab Non-reactive (NonReactive) 12/12/17 19:50 Hepatitis C Antibody Non-reactive (NonReactive) 12/12/17 19:50 Miscellaneous Test Flexitest 1 12/12/17 06:42 Blood Type A NEGATIVE 12/30/17 08:44 Antibody Screen Negative 12/30/17 08:44 Direct Antiglob Test Negative 12/12/17 20:41 JOANNE, Poly Interpret Negative 12/12/17 20:41 Crossmatch See Detail 12/30/17 08:44
[2018-01-03] MEDS: PERCOCET 5/325 PO PRN (21:49)
[2018-01-04] MEDS: PROAMATINE PO SCH ×3 (08:00→20:43)
[2018-01-04] MEDS: CEPHULAC PO SCH ×2 (10:00→22:28)
[2018-01-04] MEDS: XIFAXAN PO SCH ×2 (10:00→22:27)
[2018-01-04] MEDS: PROTONIX FEEDTUBE SCH (10:00)
[2018-01-04] MEDS: THERAGRAN-M Tab PO SCH (10:00)
[2018-01-04] MEDS: LOPRESSOR PO SCH ×2 (10:00→22:28)
--- NOTE | 2018-01-04 10:27 | Progress Note ---
Assessment and Plan - Patient Problems (1) Acute hepatic encephalopathy Current Visit: Yes Status: Acute Plan to address problem: see orders. continue with lactulose, recheck ammonia level. continue same. supportive. (2) Anemia Current Visit: Yes Status: Acute Plan to address problem: see orders. Replacement transfusion, if hgb less than 7.0 same as above. see notes above. same as above, stable. see notes above. stable so far. (3) Renal failure Current Visit: Yes Status: Acute Plan to address problem: follow renal service. same as above. (4) Liver failure Current Visit: Yes Status: Acute Plan to address problem: Hepato-renal syndrome, continue with HD. (5) Coagulation disorder Current Visit: Yes Status: Acute Plan to address problem: see notes. Subjective Date of service: 01/04/18 Principal diagnosis: CARMEN on CKD; Acute Encephalopathy; Sepsis Syndrome; Anemia Interval history: Patient seen, restingm labs/notes reviewed. agree with management so far.labs showing consumptive coagulopathy. Patient seen, resting in bed, records/labs reviewed.PLT dropped some.Still no active bleeding. Patient seen/examined, records/labs / notes reviewed, hgb low at 6.9, will rec replacement transfusion,with HD tomorrow if planned to proceed with HD. Patient seen, resting in bed, labs/records reviewed, Hgb still low, transfusion written for today. Patient seen, resting in bed, labs reviewed, plt 57,000, rectal bleeding resolved, will continue to monitor patient/labs with you, and intervene with replacement transfusion, when needed. Patient seen, resting in bed, NAD, records reviewed. Patient seen, resting in bed, labs/records reviewed, no new issues, the latest plt fair, no any sign of bleeding. Patient seen, resting in bed, records reviewed, PLT 57,000, no bleeding. Patient seen, resting in bed, labs reviewed, hgb dropped drastically, due to rectal bleed.He is s/p blood transfusion. he is expected to continue to drop his hgb, as long as he continues to bleed. Will re check labs in am. Thrombocytopenia at above 20,000. will continue to monitor. Patient seen, resting in bed, labs reviewed, ,he will need some PLT+ FFP, especially if there is any plans for any procedure, otherwise, can watch if any active bleeding, or plt 20,000 or less. patient seen/examined, resting in bed, labs reviewed, s/p GI scope, and blood transfusion, Plt replacement ,to follow. patient seen, resting in bed, labs, reviewed, plt 39,000, replacement not given yesterday? Patient seen/examined, at the HD center, resting in bed, was able ro discuss his case with him, regarding prognosis, and options, as i had d/w his yesterday. he wants to talk with his first.. his PLT came up following transfusion, hgb at Fair level at this time,Will see how much this will hold in the next few days.He is really not a good candidate for any transplant ,given, his condition, and co morbid issues at this time. Prognosis is quite poor for Hepato-renal syndrome, let alone complicated by thrombocytopenia/anemia, and double vital organ failure.He has no real reserve as far as these organs are concerned.You may want to have a vince family talk with him, his , and doctors Patient resting in bed, labs reviewed, and fairly stable, slight drop in hgb, and plt, but overall stable in the last 24hrs.notes reviewed. Patient seen/resting in bed, labs reviewed, d/w primary team. Hgb dropped, but plt holding steady since replacement. Patient resting in bed, labs reviewed, rec stays the same.Replacement transfusion prn. i have spoken to patient/, and sister at [facility]. Patient seen/examined, resting in bed, c/o not eating much due to lack of appetite.Rec appetite enhancer. Patient seen, resting in bed, labs reviewed, and remain fair. Patient seen, resting in bed, labs, reviewed, INR 2+, PLT55,000.Will give some FFP today, and perhaps on sunday, to see if he can get his procedure done. Objective - Constitutional Vitals: Vital Signs - 12hr 01/03/18 01/04/18 01/04/18 22:49 00:29 04:55 Temperature 97.8 F Pulse Rate 69 61 Respiratory 20 20 18 Rate Blood Pressure 88/55 102/66 O2 Sat by Pulse 99 98 Oximetry 01/04/18 07:30 Temperature 98.1 F Pulse Rate 67 Respiratory 18 Rate Blood Pressure 98/66 O2 Sat by Pulse 100 Oximetry General appearance: Present: no acute distress, well-nourished - EENT Eyes: PERRL, EOM intact ENT: hearing intact, clear oral mucosa Ears: bilateral: normal - Neck Neck: supple, normal ROM - Respiratory Respiratory effort: normal Respiratory: bilateral: CTA - Breasts Breasts: deferred - Cardiovascular Rhythm: regular Heart Sounds: Present: S1 & S2. Absent: gallop, rub Extremities: pulses intact, No edema, normal color, Full ROM - Gastrointestinal General gastrointestinal: Present: soft, non-tender, non-distended, normal bowel sounds Rectal Exam: deferred - Genitourinary Male genitourinary: deferred - Integumentary Integumentary: clear, warm, dry - Musculoskeletal Musculoskeletal: 1, strength equal bilaterally - Neurologic Neurologic: moves all extremities - Psychiatric Psychiatric: memory intact, appropriate mood/affect, intact judgment & insight - Labs CBC & Chem 7: 01/03/18 06:24 01/01/18 05:27
[2018-01-04] MEDS ORDERED: NACL 0.9% 500 ML 500 ML IV SCH (10:28)
--- NOTE | 2018-01-04 10:53 | Progress Note ---
Subjective Principal diagnosis: CARMEN on CKD; Acute Encephalopathy; Sepsis Syndrome; Anemia Interval history: Patient was seen today for follow-up on multiple renal related issues Has been initiated on renal replacement therapy due to acute kidney injury Patient has multi-organ problem and is very sick HEENT: [place] dry Neck: Supple no thyromegaly no JVD Chest: Clear to auscultation anteriorly no crackles or wheezes Posteriorly breath sounds are diminished at the lung base Central venous catheter site unremarkable Heart: Regular rate and rhythm S1-S2 heard no S3-S4 Abdomen: Soft nontender dry skin and no organomegaly Dialysis in flanks Extremity: Less than 1+ edema dry skin no petechial rash Musculoskeletal: No joint effusion noted Assessment and plan: Acute kidney injury: Currently dialysis dependent, continue dialysis as long as blood pressure is stable Anemia in renal failure currently on erythropoietin 20,000 units with dialysis Cirrhosis of liver, status post GI evaluation prognosis appears to be poor Severe hypotension blood pressure has been running in 80-90 systolic, at this time we'll consider withholding dialysis for now till he becomes more stable Mostly his hypertension is also resulting from third spacing of fluid intravascular volume depletion, status post ultrasound-guided paracentesis 01/01 No acute emergent indication for renal replacement therapy today Patient in my opinion is hospice appropriate if he is not going to get a liver transplant Is also not been the best of his health for liver transplant in my opinion please check with the GI service Hypomagnesemia better Patient say that I know I am dying, I believe he'll benefit from palliative care service as well He does need periodic lab draws Continue to monitor labs supportive care Objective - Vital Signs Vital signs: Vital Signs - 12hr 01/04/18 01/04/18 01/04/18 00:29 04:55 07:30 Temperature 97.8 F 98.1 F Pulse Rate 69 61 67 Respiratory 20 18 18 Rate Blood Pressure 88/55 102/66 98/66 O2 Sat by Pulse 99 98 100 Oximetry - Lab 01/03/18 06:24 01/01/18 05:27 Most recent lab results Calcium 9.0 mg/dL (8.4-10.2) 01/01/18 05:27 Phosphorus 2.40 mg/dL (2.5-4.5) L 12/26/17 05:59 Magnesium 1.70 mg/dL (1.7-2.3) 01/03/18 06:24 Urine Creatinine 122.5 mg/dL (0.1-20.0) H 12/14/17 Unknown
[2018-01-04] MEDS ORDERED: NACL 0.9 (PRIMING MACHINE ONLY DIALYSIS) MC ONE (11:12)
--- NOTE | 2018-01-04 19:22 | Progress Note ---
Assessment and Plan Patient sleeping at this time. No acute respiratory distress.O2 saturation 100 % on 2 litres O2.Patient has paracentesis recently. No malignant cells reported. Patients INR still high.Patient did not have thoracentesis today. - Patient Problems (1) Bilateral pleural effusion Current Visit: No Status: Acute Plan to address problem: Patient scheduled for thoracentesis (2) Hypovolemic shock Current Visit: Yes Status: Acute Plan to address problem: Improved .Blood pressure 132/76. Patient alert, awake.Patient has no symptoms of hypotension now. (3) CARMEN (acute kidney injury) Current Visit: Yes Status: Acute Plan to address problem: Management as per nephrology. (4) Acute hepatic encephalopathy Current Visit: Yes Status: Acute Plan to address problem: Management as per primary care. (5) Alcoholic cirrhosis of liver with ascites Current Visit: Yes Status: Acute Plan to address problem: Management as per primary care. (6) Anemia Current Visit: Yes Status: Acute Plan to address problem: Management as per primary care. Subjective Date of service: 01/04/18 Principal diagnosis: CARMEN on CKD; Acute Encephalopathy; Sepsis Syndrome; Anemia Interval history: Patient sleeping at this time. No acute respiratory distress.O2 saturation 100 % on 2 litres O2.Patient has paracentesis recently. No malignant cells reported. Patient INR still high. Patient did not have thoracentesis today. Objective Vital Signs - 12hr 01/04/18 01/04/18 01/04/18 07:30 10:00 10:15 Temperature 98.1 F 98.1 F Pulse Rate 67 72 67 Pulse Rate [ Apical] Respiratory 18 16 Rate Blood Pressure 98/66 116/73 116/73 O2 Sat by Pulse 100 Oximetry 01/04/18 01/04/18 01/04/18 10:30 10:45 11:00 Temperature Pulse Rate 66 71 70 Pulse Rate [ Apical] Respiratory Rate Blood Pressure 118/70 116/79 130/83 O2 Sat by Pulse Oximetry 01/04/18 01/04/18 01/04/18 11:15 11:30 11:45 Temperature Pulse Rate 71 64 68 Pulse Rate [ Apical] Respiratory Rate Blood Pressure 121/78 116/64 121/70 O2 Sat by Pulse Oximetry 01/04/18 01/04/18 01/04/18 12:00 12:15 12:30 Temperature Pulse Rate 70 69 69 Pulse Rate [ Apical] Respiratory Rate Blood Pressure 122/77 122/80 129/81 O2 Sat by Pulse Oximetry 01/04/18 01/04/18 01/04/18 12:45 13:00 13:15 Temperature Pulse Rate 69 74 74 Pulse Rate [ Apical] Respiratory Rate Blood Pressure 126/79 125/76 130/78 O2 Sat by Pulse Oximetry 01/04/18 01/04/18 13:20 17:20 Temperature 98.1 F Pulse Rate 74 Pulse Rate [ 80 Apical] Respiratory 18 20 Rate Blood Pressure 132/76 O2 Sat by Pulse 100 Oximetry Constitutional: no acute distress, alert, other Eyes: non-icteric ENT: oropharynx moist, other (mallampati 2) Neck: supple, no lymphadenopathy, no JVD, other (no thyromegaly) Effort: normal Ascultation: Bilateral: diminished breath sounds (bases), rhonchi (scant) Percussion: Right: dull (base), Bilateral: not dull Cardiovascular: regular rate and rhythm, other (S1,S2, no murmurms, gallops or rubs) Gastrointestinal: normoactive bowel sounds, soft, non-tender, other (distended) Integumentary: rash Extremities: no cyanosis, no edema, pulses normal, no ischemia or petechiae, cool Neurologic: non-focal exam, pupils equal and round, motor strength normal and ( weak), other (alert, awake) Psychiatric: other (normal affect, confusion) CBC and BMP: 01/03/18 06:24 01/01/18 05:27 ABG, PT/INR, D-dimer: ABG POC ABG pH 7.452 (7.35-7.45) H 12/12/17 09:13 POC ABG pCO2 22.2 (35-45) L 12/12/17 09:13 POC ABG pO2 75 (80-105) L 12/12/17 09:13 POC ABG HCO3 15.5 12/12/17 09:13 POC ABG Total CO2 16 12/12/17 09:13 POC ABG O2 Sat 96 12/12/17 09:13 PT/INR, D-dimer PT 24.1 Sec. (12.2-14.9) H 01/03/18 06:24 INR 2.01 (0.87-1.13) H 01/03/18 06:24 D-Dimer 1215.06 ng/mlDDU (0-234) H 12/12/17 19:50 Abnormal lab findings: Abnormal Labs 12/10/17 12/10/17 12/10/17 13:14 13:14 23:05 RBC 2.31 L Hgb 7.3 L Hct 21.5 L MCV MCH MCHC RDW 17.7 H Plt Count 61 L Lymph % (Auto) Jack % (Auto) Baso % (Auto) Lymph # Jack # Baso # Seg Neutrophils % Seg Neuts % (Manual) 81.0 H Lymphocytes % (Manual) 11.0 L Lymphocytes # (Manual) 0.6 L PT INR APTT Fibrinogen D-Dimer POC ABG pH POC ABG pCO2 POC ABG pO2 Sodium 136 L Potassium 5.2 H Chloride Carbon Dioxide 15 L BUN 47 H Creatinine 5.2 H Glucose 127 H POC Glucose Lactic Acid Calcium Phosphorus Magnesium TIBC Ferritin Total Bilirubin 3.50 H Direct Bilirubin AST 71 H Ammonia Lactate Dehydrogenase NT-Pro-B Natriuret Pep Total Protein Albumin 2.6 L Lipase Vitamin B12 Urine WBC (Auto) 10.0 H Urine Creatinine Ur Creatinine 24 Hour Digoxin Crossmatch 12/10/17 12/10/17 12/10/17 23:14 23:14 23:14 RBC Hgb Hct MCV MCH MCHC RDW Plt Count Lymph % (Auto) Jack % (Auto) Baso % (Auto) Lymph # Jack # Baso # Seg Neutrophils % Seg Neuts % (Manual) Lymphocytes % (Manual) Lymphocytes # (Manual) PT INR APTT Fibrinogen D-Dimer POC ABG pH POC ABG pCO2 POC ABG pO2 Sodium Potassium Chloride Carbon Dioxide BUN Creatinine Glucose POC Glucose Lactic Acid 2.40 H* Calcium Phosphorus Magnesium TIBC Ferritin Total Bilirubin Direct Bilirubin AST Ammonia 134.0 H Lactate Dehydrogenase NT-Pro-B Natriuret Pep 9558 H Total Protein Albumin Lipase Vitamin B12 Urine WBC (Auto) Urine Creatinine Ur Creatinine 24 Hour Digoxin Crossmatch 12/10/17 12/11/17 12/11/17 23:14 00:29 03:33 RBC Hgb Hct MCV MCH MCHC RDW Plt Count Lymph % (Auto) Jack % (Auto) Baso % (Auto) Lymph # Jack # Baso # Seg Neutrophils % Seg Neuts % (Manual) Lymphocytes % (Manual) Lymphocytes # (Manual) PT INR APTT Fibrinogen D-Dimer POC ABG pH POC ABG pCO2 POC ABG pO2 Sodium Potassium Chloride Carbon Dioxide BUN Creatinine Glucose POC Glucose Lactic Acid 2.80 H* 3.00 H* Calcium Phosphorus Magnesium TIBC Ferritin Total Bilirubin Direct Bilirubin AST Ammonia Lactate Dehydrogenase NT-Pro-B Natriuret Pep Total Protein Albumin Lipase 7 L Vitamin B12 Urine WBC (Auto) Urine Creatinine Ur Creatinine 24 Hour Digoxin Crossmatch 12/11/17 12/11/17 12/11/17 04:08 04:34 04:34 RBC Hgb Hct MCV MCH MCHC RDW Plt Count Lymph % (Auto) Jack % (Auto) Baso % (Auto) Lymph # Jack # Baso # Seg Neutrophils % Seg Neuts % (Manual) Lymphocytes % (Manual) Lymphocytes # (Manual) PT 19.1 H INR 1.51 H APTT 45.7 H Fibrinogen D-Dimer POC ABG pH POC ABG pCO2 POC ABG pO2 Sodium Potassium Chloride Carbon Dioxide BUN Creatinine Glucose POC Glucose 113 H Lactic Acid 3.10 H* Calcium Phosphorus Magnesium TIBC Ferritin Total Bilirubin Direct Bilirubin AST Ammonia Lactate Dehydrogenase NT-Pro-B Natriuret Pep Total Protein Albumin Lipase Vitamin B12 Urine WBC (Auto) Urine Creatinine Ur Creatinine 24 Hour Digoxin Crossmatch 12/11/17 12/11/17 12/11/17 06:46 07:26 09:42 RBC Hgb Hct MCV MCH MCHC RDW Plt Count Lymph % (Auto) Jack % (Auto) Baso % (Auto) Lymph # Jack # Baso # Seg Neutrophils % Seg Neuts % (Manual) Lymphocytes % (Manual) Lymphocytes # (Manual) PT INR APTT Fibrinogen D-Dimer POC ABG pH POC ABG pCO2 POC ABG pO2 Sodium Potassium Chloride Carbon Dioxide BUN Creatinine Glucose POC Glucose Lactic Acid 2.70 H* 2.80 H* 2.90 H* Calcium Phosphorus Magnesium TIBC Ferritin Total Bilirubin Direct Bilirubin AST Ammonia Lactate Dehydrogenase NT-Pro-B Natriuret Pep Total Protein Albumin Lipase Vitamin B12 Urine WBC (Auto) Urine Creatinine Ur Creatinine 24 Hour Digoxin Crossmatch 12/11/17 12/11/17 12/11/17 13:12 14:06 23:14 RBC Hgb Hct MCV MCH MCHC RDW Plt Count Lymph % (Auto) Jack % (Auto) Baso % (Auto) Lymph # Jack # Baso # Seg Neutrophils % Seg Neuts % (Manual) Lymphocytes % (Manual) Lymphocytes # (Manual) PT INR APTT Fibrinogen D-Dimer POC ABG pH POC ABG pCO2 POC ABG pO2 Sodium Potassium Chloride Carbon Dioxide BUN Creatinine Glucose POC Glucose Lactic Acid 3.10 H* 3.10 H* 3.70 H* Calcium Phosphorus Magnesium TIBC Ferritin Total Bilirubin Direct Bilirubin AST Ammonia Lactate Dehydrogenase NT-Pro-B Natriuret Pep Total Protein Albumin Lipase Vitamin B12 Urine WBC (Auto) Urine Creatinine Ur Creatinine 24 Hour Digoxin Crossmatch 12/11/17 12/12/17 12/12/17 23:23 03:41 03:41 RBC 2.17 L Hgb 7.0 L Hct 19.9 L* MCV MCH 33 H MCHC 35 H RDW 17.7 H Plt Count 62 L Lymph % (Auto) Jack % (Auto) Baso % (Auto) Lymph # Jack # Baso # Seg Neutrophils % Seg Neuts % (Manual) 91.0 H Lymphocytes % (Manual) 3.0 L Lymphocytes # (Manual) 0.2 L PT INR APTT Fibrinogen D-Dimer POC ABG pH POC ABG pCO2 POC ABG pO2 Sodium Potassium 5.4 H Chloride Carbon Dioxide 12 L BUN 47 H Creatinine 4.5 H Glucose 103 H POC Glucose Lactic Acid Calcium 8.0 L Phosphorus Magnesium TIBC Ferritin Total Bilirubin 3.60 H Direct Bilirubin AST 58 H Ammonia Lactate Dehydrogenase NT-Pro-B Natriuret Pep Total Protein 5.9 L Albumin 2.5 L Lipase Vitamin B12 Urine WBC (Auto) Urine Creatinine Ur Creatinine 24 Hour Digoxin Crossmatch See Detail 12/12/17 12/12/17 12/12/17 07:00 09:13 17:55 RBC 2.06 L Hgb 6.6 L Hct 18.6 L* MCV MCH MCHC 36 H RDW 17.8 H Plt Count 77 L Lymph % (Auto) Jack % (Auto) Baso % (Auto) Lymph # Jack # Baso # Seg Neutrophils % Seg Neuts % (Manual) Lymphocytes % (Manual) Lymphocytes # (Manual) PT INR APTT Fibrinogen D-Dimer POC ABG pH 7.452 H POC ABG pCO2 22.2 L POC ABG pO2 75 L Sodium Potassium Chloride Carbon Dioxide BUN Creatinine Glucose POC Glucose 119 H Lactic Acid Calcium Phosphorus Magnesium TIBC Ferritin Total Bilirubin Direct Bilirubin AST Ammonia Lactate Dehydrogenase NT-Pro-B Natriuret Pep Total Protein Albumin Lipase Vitamin B12 Urine WBC (Auto) Urine Creatinine Ur Creatinine 24 Hour Digoxin Crossmatch 12/12/17 12/12/17 12/12/17 19:50 19:50 19:50 RBC 2.40 L Hgb 7.8 L Hct 21.3 L MCV MCH 33 H MCHC 37 H RDW 16.1 H Plt Count 99 L Lymph % (Auto) Jack % (Auto) Baso % (Auto) Lymph # Jack # Baso # Seg Neutrophils % Seg Neuts % (Manual) 87.0 H Lymphocytes % (Manual) 5.0 L Lymphocytes # (Manual) 0.3 L PT 21.9 H INR 1.79 H APTT 41.5 H Fibrinogen 128 L D-Dimer 1215.06 H POC ABG pH POC ABG pCO2 POC ABG pO2 Sodium Potassium Chloride Carbon Dioxide BUN Creatinine Glucose POC Glucose Lactic Acid Calcium Phosphorus Magnesium TIBC Ferritin Total Bilirubin 4.10 H Direct Bilirubin 1.6 H AST Ammonia Lactate Dehydrogenase NT-Pro-B Natriuret Pep Total Protein Albumin Lipase Vitamin B12 Urine WBC (Auto) Urine Creatinine Ur Creatinine 24 Hour Digoxin Crossmatch 12/12/17 12/12/17 12/12/17 19:50 19:50 23:46 RBC Hgb Hct MCV MCH MCHC RDW Plt Count Lymph % (Auto) Jack % (Auto) Baso % (Auto) Lymph # Jack # Baso # Seg Neutrophils % Seg Neuts % (Manual) Lymphocytes % (Manual) Lymphocytes # (Manual) PT INR APTT Fibrinogen D-Dimer POC ABG pH POC ABG pCO2 POC ABG pO2 Sodium Potassium Chloride Carbon Dioxide BUN Creatinine Glucose POC Glucose 110 H Lactic Acid Calcium Phosphorus Magnesium TIBC Ferritin Total Bilirubin Direct Bilirubin AST Ammonia Lactate Dehydrogenase 213 H NT-Pro-B Natriuret Pep Total Protein Albumin Lipase Vitamin B12 1465 H Urine WBC (Auto) Urine Creatinine Ur Creatinine 24 Hour Digoxin Crossmatch 12/13/17 12/13/17 12/13/17 04:00 04:00 05:12 RBC 2.32 L Hgb 7.4 L Hct 20.8 L MCV MCH MCHC 36 H RDW 16.1 H Plt Count 134 L Lymph % (Auto) 13.1 L Jack % (Auto) 7.9 H Baso % (Auto) Lymph # 0.8 L Jack # Baso # Seg Neutrophils % 76.3 H Seg Neuts % (Manual) Lymphocytes % (Manual) Lymphocytes # (Manual) PT INR APTT Fibrinogen D-Dimer POC ABG pH POC ABG pCO2 POC ABG pO2 Sodium Potassium Chloride Carbon Dioxide 21 L D BUN 48 H Creatinine 4.6 H Glucose 104 H POC Glucose 134 H Lactic Acid Calcium 8.1 L Phosphorus Magnesium TIBC Ferritin Total Bilirubin 4.70 H Direct Bilirubin AST 43 H Ammonia Lactate Dehydrogenase NT-Pro-B Natriuret Pep Total Protein 5.8 L Albumin 3.1 L Lipase Vitamin B12 Urine WBC (Auto) Urine Creatinine Ur Creatinine 24 Hour Digoxin Crossmatch 12/13/17 12/13/17 12/13/17 08:45 12:25 14:03 RBC Hgb Hct MCV MCH MCHC RDW Plt Count Lymph % (Auto) Jack % (Auto) Baso % (Auto) Lymph # Jack # Baso # Seg Neutrophils % Seg Neuts % (Manual) Lymphocytes % (Manual) Lymphocytes # (Manual) PT 20.5 H INR 1.65 H APTT Fibrinogen D-Dimer POC ABG pH POC ABG pCO2 POC ABG pO2 Sodium Potassium Chloride Carbon Dioxide BUN Creatinine Glucose POC Glucose 112 H Lactic Acid 3.70 H* Calcium Phosphorus Magnesium TIBC Ferritin Total Bilirubin Direct Bilirubin AST Ammonia Lactate Dehydrogenase NT-Pro-B Natriuret Pep Total Protein Albumin Lipase Vitamin B12 Urine WBC (Auto) Urine Creatinine Ur Creatinine 24 Hour Digoxin Crossmatch 12/13/17 12/13/17 12/13/17 14:03 18:52 21:09 RBC Hgb Hct MCV MCH MCHC RDW Plt Count Lymph % (Auto) Jack % (Auto) Baso % (Auto) Lymph # Jack # Baso # Seg Neutrophils % Seg Neuts % (Manual) Lymphocytes % (Manual) Lymphocytes # (Manual) PT INR APTT Fibrinogen D-Dimer POC ABG pH POC ABG pCO2 POC ABG pO2 Sodium Potassium Chloride Carbon Dioxide BUN Creatinine Glucose POC Glucose 110 H Lactic Acid 4.00 H* Calcium Phosphorus Magnesium TIBC Ferritin Total Bilirubin Direct Bilirubin AST Ammonia 87.0 H Lactate Dehydrogenase NT-Pro-B Natriuret Pep Total Protein Albumin Lipase Vitamin B12 Urine WBC (Auto) Urine Creatinine Ur Creatinine 24 Hour Digoxin Crossmatch 12/14/17 12/14/17 12/14/17 00:25 03:30 03:30 RBC 2.29 L Hgb 7.3 L Hct 20.7 L MCV MCH MCHC 35 H RDW 16.2 H Plt Count 84 L Lymph % (Auto) 12.8 L Jack % (Auto) 8.3 H Baso % (Auto) Lymph # 0.6 L Jack # Baso # Seg Neutrophils % 77.2 H Seg Neuts % (Manual) Lymphocytes % (Manual) Lymphocytes # (Manual) PT INR APTT Fibrinogen D-Dimer POC ABG pH POC ABG pCO2 POC ABG pO2 Sodium Potassium Chloride 96.1 L Carbon Dioxide BUN 48 H Creatinine 4.6 H Glucose 125 H POC Glucose 131 H Lactic Acid Calcium 7.9 L Phosphorus Magnesium TIBC Ferritin Total Bilirubin 4.70 H Direct Bilirubin AST 45 H Ammonia Lactate Dehydrogenase NT-Pro-B Natriuret Pep Total Protein 6.1 L Albumin 3.4 L Lipase Vitamin B12 Urine WBC (Auto) Urine Creatinine Ur Creatinine 24 Hour Digoxin Crossmatch 12/14/17 12/14/17 12/14/17 05:31 12:26 12:55 RBC Hgb Hct MCV MCH MCHC RDW Plt Count Lymph % (Auto) Jack % (Auto) Baso % (Auto) Lymph # Jack # Baso # Seg Neutrophils % Seg Neuts % (Manual) Lymphocytes % (Manual) Lymphocytes # (Manual) PT INR APTT Fibrinogen D-Dimer POC ABG pH POC ABG pCO2 POC ABG pO2 Sodium Potassium Chloride Carbon Dioxide BUN Creatinine Glucose POC Glucose 125 H 117 H Lactic Acid 3.40 H* Calcium Phosphorus Magnesium TIBC Ferritin Total Bilirubin Direct Bilirubin AST Ammonia Lactate Dehydrogenase NT-Pro-B Natriuret Pep Total Protein Albumin Lipase Vitamin B12 Urine WBC (Auto) Urine Creatinine Ur Creatinine 24 Hour Digoxin Crossmatch 12/14/17 12/14/17 12/14/17 15:26 17:26 18:07 RBC Hgb Hct MCV MCH MCHC RDW Plt Count Lymph % (Auto) Jack % (Auto) Baso % (Auto) Lymph # Jack # Baso # Seg Neutrophils % Seg Neuts % (Manual) Lymphocytes % (Manual) Lymphocytes # (Manual) PT INR APTT Fibrinogen D-Dimer POC ABG pH POC ABG pCO2 POC ABG pO2 Sodium Potassium Chloride Carbon Dioxide BUN Creatinine Glucose POC Glucose 143 H Lactic Acid 4.00 H* 3.90 H* Calcium Phosphorus Magnesium TIBC Ferritin Total Bilirubin Direct Bilirubin AST Ammonia Lactate Dehydrogenase NT-Pro-B Natriuret Pep Total Protein Albumin Lipase Vitamin B12 Urine WBC (Auto) Urine Creatinine Ur Creatinine 24 Hour Digoxin Crossmatch 12/14/17 12/15/17 12/15/17 Unknown 00:08 04:51 RBC 2.27 L Hgb 7.3 L Hct 20.7 L MCV MCH MCHC 35 H RDW 16.1 H Plt Count 92 L Lymph % (Auto) 12.5 L Jack % (Auto) 10.4 H Baso % (Auto) Lymph # 0.6 L Jack # Baso # Seg Neutrophils % 74.7 H Seg Neuts % (Manual) Lymphocytes % (Manual) Lymphocytes # (Manual) PT INR APTT Fibrinogen D-Dimer POC ABG pH POC ABG pCO2 POC ABG pO2 Sodium Potassium Chloride Carbon Dioxide BUN Creatinine Glucose POC Glucose 124 H Lactic Acid Calcium Phosphorus Magnesium TIBC Ferritin Total Bilirubin Direct Bilirubin AST Ammonia Lactate Dehydrogenase NT-Pro-B Natriuret Pep Total Protein Albumin Lipase Vitamin B12 Urine WBC (Auto) Urine Creatinine 122.5 H Ur Creatinine 24 Hour 0.3 L Digoxin Crossmatch 12/15/17 12/15/17 12/15/17 04:51 04:51 05:56 RBC Hgb Hct MCV MCH MCHC RDW Plt Count Lymph % (Auto) Jack % (Auto) Baso % (Auto) Lymph # Jack # Baso # Seg Neutrophils % Seg Neuts % (Manual) Lymphocytes % (Manual) Lymphocytes # (Manual) PT INR APTT Fibrinogen D-Dimer POC ABG pH POC ABG pCO2 POC ABG pO2 Sodium Potassium 3.5 L Chloride 92.6 L Carbon Dioxide BUN 50 H Creatinine 4.8 H Glucose 141 H POC Glucose 143 H Lactic Acid Calcium 7.9 L Phosphorus Magnesium TIBC Ferritin Total Bilirubin 3.60 H Direct Bilirubin AST 44 H Ammonia 24.0 L Lactate Dehydrogenase NT-Pro-B Natriuret Pep Total Protein 6.1 L Albumin 3.8 L Lipase Vitamin B12 Urine WBC (Auto) Urine Creatinine Ur Creatinine 24 Hour Digoxin Crossmatch 12/15/17 12/15/17 12/16/17 12:17 23:10 07:04 RBC Hgb Hct MCV MCH MCHC RDW Plt Count Lymph % (Auto) Jack % (Auto) Baso % (Auto) Lymph # Jack # Baso # Seg Neutrophils % Seg Neuts % (Manual) Lymphocytes % (Manual) Lymphocytes # (Manual) PT INR APTT Fibrinogen D-Dimer POC ABG pH POC ABG pCO2 POC ABG pO2 Sodium Potassium Chloride Carbon Dioxide BUN Creatinine Glucose POC Glucose 127 H 157 H 147 H Lactic Acid Calcium Phosphorus Magnesium TIBC Ferritin Total Bilirubin Direct Bilirubin AST Ammonia Lactate Dehydrogenase NT-Pro-B Natriuret Pep Total Protein Albumin Lipase Vitamin B12 Urine WBC (Auto) Urine Creatinine Ur Creatinine 24 Hour Digoxin Crossmatch 12/16/17 12/16/17 12/16/17 11:35 12:37 12:37 RBC 2.21 L Hgb 6.9 L Hct 20.2 L MCV MCH MCHC RDW 16.2 H Plt Count 50 L Lymph % (Auto) Jack % (Auto) 9.7 H Baso % (Auto) Lymph # 0.7 L Jack # Baso # Seg Neutrophils % 73.1 H Seg Neuts % (Manual) Lymphocytes % (Manual) Lymphocytes # (Manual) PT INR APTT Fibrinogen D-Dimer POC ABG pH POC ABG pCO2 POC ABG pO2 Sodium Potassium Chloride 88.2 L Carbon Dioxide BUN 52 H Creatinine 5.5 H Glucose 107 H POC Glucose 134 H Lactic Acid Calcium 7.8 L Phosphorus Magnesium TIBC Ferritin Total Bilirubin 2.60 H Direct Bilirubin AST 49 H Ammonia Lactate Dehydrogenase NT-Pro-B Natriuret Pep Total Protein Albumin 3.6 L Lipase Vitamin B12 Urine WBC (Auto) Urine Creatinine Ur Creatinine 24 Hour Digoxin Crossmatch 12/16/17 12/16/17 12/16/17 18:06 20:45 23:34 RBC Hgb Hct MCV MCH MCHC RDW Plt Count Lymph % (Auto) Jack % (Auto) Baso % (Auto) Lymph # Jack # Baso # Seg Neutrophils % Seg Neuts % (Manual) Lymphocytes % (Manual) Lymphocytes # (Manual) PT INR APTT Fibrinogen D-Dimer POC ABG pH POC ABG pCO2 POC ABG pO2 Sodium Potassium Chloride Carbon Dioxide BUN Creatinine Glucose POC Glucose 133 H 139 H Lactic Acid Calcium Phosphorus Magnesium TIBC Ferritin Total Bilirubin Direct Bilirubin AST Ammonia Lactate Dehydrogenase NT-Pro-B Natriuret Pep Total Protein Albumin Lipase Vitamin B12 Urine WBC (Auto) Urine Creatinine Ur Creatinine 24 Hour Digoxin Crossmatch See Detail 12/17/17 12/17/17 12/17/17 05:27 05:27 06:11 RBC 2.10 L Hgb 6.6 L Hct 19.2 L* MCV MCH MCHC 35 H RDW 16.5 H Plt Count 65 L Lymph % (Auto) 12.6 L Jack % (Auto) 9.6 H Baso % (Auto) Lymph # 0.7 L Jack # Baso # Seg Neutrophils % 75.8 H Seg Neuts % (Manual) Lymphocytes % (Manual) Lymphocytes # (Manual) PT INR APTT Fibrinogen D-Dimer POC ABG pH POC ABG pCO2 POC ABG pO2 Sodium 135 L Potassium 3.4 L Chloride 84.9 L Carbon Dioxide 33 H BUN 53 H Creatinine 5.9 H Glucose POC Glucose 110 H Lactic Acid Calcium 7.7 L Phosphorus Magnesium TIBC Ferritin Total Bilirubin 2.70 H Direct Bilirubin AST 50 H Ammonia Lactate Dehydrogenase NT-Pro-B Natriuret Pep Total Protein 6.2 L Albumin 3.7 L Lipase Vitamin B12 Urine WBC (Auto) Urine Creatinine Ur Creatinine 24 Hour Digoxin Crossmatch 12/17/17 12/18/17 12/18/17 09:34 00:05 05:21 RBC 3.35 L Hgb 10.3 L D Hct 30.4 L D MCV MCH MCHC RDW 16.2 H Plt Count 57 L Lymph % (Auto) 8.0 L Jack % (Auto) 10.9 H Baso % (Auto) Lymph # 0.6 L Jack # Baso # Seg Neutrophils % 80.2 H Seg Neuts % (Manual) Lymphocytes % (Manual) Lymphocytes # (Manual) PT 23.9 H INR 1.99 H APTT Fibrinogen D-Dimer POC ABG pH POC ABG pCO2 POC ABG pO2 Sodium Potassium Chloride Carbon Dioxide BUN Creatinine Glucose POC Glucose 132 H Lactic Acid Calcium Phosphorus Magnesium TIBC Ferritin Total Bilirubin Direct Bilirubin AST Ammonia Lactate Dehydrogenase NT-Pro-B Natriuret Pep Total Protein Albumin Lipase Vitamin B12 Urine WBC (Auto) Urine Creatinine Ur Creatinine 24 Hour Digoxin Crossmatch 12/18/17 12/18/17 12/18/17 05:21 06:16 11:11 RBC Hgb Hct MCV MCH MCHC RDW Plt Count Lymph % (Auto) Jack % (Auto) Baso % (Auto) Lymph # Jack # Baso # Seg Neutrophils % Seg Neuts % (Manual) Lymphocytes % (Manual) Lymphocytes # (Manual) PT 34.7 H INR 3.17 H APTT Fibrinogen D-Dimer POC ABG pH POC ABG pCO2 POC ABG pO2 Sodium Potassium 3.5 L Chloride 87.1 L Carbon Dioxide BUN 35 H Creatinine 4.3 H Glucose 110 H POC Glucose 116 H Lactic Acid Calcium 8.1 L Phosphorus Magnesium TIBC Ferritin Total Bilirubin 5.10 H Direct Bilirubin AST 56 H Ammonia Lactate Dehydrogenase NT-Pro-B Natriuret Pep Total Protein Albumin Lipase Vitamin B12 Urine WBC (Auto) Urine Creatinine Ur Creatinine 24 Hour Digoxin Crossmatch 12/18/17 12/18/17 12/18/17 13:10 17:52 22:04 RBC Hgb Hct MCV MCH MCHC RDW Plt Count Lymph % (Auto) Jack % (Auto) Baso % (Auto) Lymph # Jack # Baso # Seg Neutrophils % Seg Neuts % (Manual) Lymphocytes % (Manual) Lymphocytes # (Manual) PT 25.9 H INR 2.20 H APTT Fibrinogen D-Dimer POC ABG pH POC ABG pCO2 POC ABG pO2 Sodium Potassium Chloride Carbon Dioxide BUN Creatinine Glucose POC Glucose 114 H 108 H Lactic Acid Calcium Phosphorus Magnesium TIBC Ferritin Total Bilirubin Direct Bilirubin AST Ammonia Lactate Dehydrogenase NT-Pro-B Natriuret Pep Total Protein Albumin Lipase Vitamin B12 Urine WBC (Auto) Urine Creatinine Ur Creatinine 24 Hour Digoxin Crossmatch 12/19/17 12/19/17 12/19/17 05:55 05:55 10:20 RBC 2.85 L Hgb 9.1 L Hct 25.7 L MCV MCH MCHC 35 H RDW 16.4 H Plt Count 61 L Lymph % (Auto) Jack % (Auto) Baso % (Auto) Lymph # Jack # Baso # Seg Neutrophils % Seg Neuts % (Manual) Lymphocytes % (Manual) Lymphocytes # (Manual) PT INR APTT Fibrinogen D-Dimer POC ABG pH POC ABG pCO2 POC ABG pO2 Sodium Potassium Chloride 94.5 L Carbon Dioxide BUN 27 H Creatinine 3.6 H Glucose POC Glucose 131 H Lactic Acid Calcium 8.2 L Phosphorus Magnesium TIBC Ferritin Total Bilirubin Direct Bilirubin AST Ammonia Lactate Dehydrogenase NT-Pro-B Natriuret Pep Total Protein Albumin Lipase Vitamin B12 Urine WBC (Auto) Urine Creatinine Ur Creatinine 24 Hour Digoxin Crossmatch 12/19/17 12/21/17 12/21/17 11:46 05:26 05:26 RBC 2.60 L Hgb 8.4 L Hct 23.9 L MCV MCH MCHC 35 H RDW 16.2 H Plt Count 57 L Lymph % (Auto) 12.4 L Jack % (Auto) 10.7 H Baso % (Auto) Lymph # Jack # 1.0 H Baso # Seg Neutrophils % 74.8 H Seg Neuts % (Manual) Lymphocytes % (Manual) Lymphocytes # (Manual) PT 26.2 H INR 2.23 H APTT Fibrinogen D-Dimer POC ABG pH POC ABG pCO2 POC ABG pO2 Sodium Potassium Chloride Carbon Dioxide BUN Creatinine Glucose POC Glucose Lactic Acid Calcium Phosphorus Magnesium TIBC Ferritin Total Bilirubin Direct Bilirubin AST Ammonia Lactate Dehydrogenase NT-Pro-B Natriuret Pep Total Protein Albumin Lipase Vitamin B12 Urine WBC (Auto) Urine Creatinine Ur Creatinine 24 Hour Digoxin 0.4 L Crossmatch 12/21/17 12/23/17 12/24/17 09:40 08:15 04:51 RBC 1.80 L Hgb 5.9 L* Hct 17.0 L* D MCV MCH 33 H MCHC 35 H RDW 16.5 H Plt Count 53 L Lymph % (Auto) Jack % (Auto) Baso % (Auto) Lymph # Jack # Baso # Seg Neutrophils % Seg Neuts % (Manual) Lymphocytes % (Manual) Lymphocytes # (Manual) PT 26.4 H 27.9 H INR 2.26 H 2.42 H APTT Fibrinogen D-Dimer POC ABG pH POC ABG pCO2 POC ABG pO2 Sodium Potassium Chloride Carbon Dioxide BUN Creatinine Glucose POC Glucose Lactic Acid Calcium Phosphorus Magnesium TIBC Ferritin Total Bilirubin Direct Bilirubin AST Ammonia Lactate Dehydrogenase NT-Pro-B Natriuret Pep Total Protein Albumin Lipase Vitamin B12 Urine WBC (Auto) Urine Creatinine Ur Creatinine 24 Hour Digoxin Crossmatch 12/24/17 12/24/17 12/24/17 04:51 06:25 08:20 RBC Hgb Hct MCV MCH MCHC RDW Plt Count Lymph % (Auto) Jack % (Auto) Baso % (Auto) Lymph # Jack # Baso # Seg Neutrophils % Seg Neuts % (Manual) Lymphocytes % (Manual) Lymphocytes # (Manual) PT 40.8 H INR 3.87 H APTT Fibrinogen D-Dimer POC ABG pH POC ABG pCO2 POC ABG pO2 Sodium Potassium 3.5 L Chloride Carbon Dioxide BUN 21 H Creatinine 4.4 H Glucose POC Glucose Lactic Acid Calcium 8.1 L Phosphorus Magnesium TIBC Ferritin Total Bilirubin Direct Bilirubin AST Ammonia Lactate Dehydrogenase NT-Pro-B Natriuret Pep Total Protein Albumin Lipase Vitamin B12 Urine WBC (Auto) Urine Creatinine Ur Creatinine 24 Hour Digoxin Crossmatch See Detail 12/24/17 12/24/1718 19:21 19:21 05:27 RBC 2.31 L Hgb 7.3 L 7.4 L Hct 20.4 L 21.3 L MCV MCH MCHC 35 H RDW 15.9 H Plt Count 39 L Lymph % (Auto) Jack % (Auto) 10.8 H Baso % (Auto) Lymph # 0.9 L Jack # Baso # Seg Neutrophils % 71.9 H Seg Neuts % (Manual) Lymphocytes % (Manual) Lymphocytes # (Manual) PT 21.3 H INR 1.73 H APTT Fibrinogen D-Dimer POC ABG pH POC ABG pCO2 POC ABG pO2 Sodium Potassium Chloride Carbon Dioxide BUN Creatinine Glucose POC Glucose Lactic Acid Calcium Phosphorus Magnesium TIBC Ferritin Total Bilirubin Direct Bilirubin AST Ammonia Lactate Dehydrogenase NT-Pro-B Natriuret Pep Total Protein Albumin Lipase Vitamin B12 Urine WBC (Auto) Urine Creatinine Ur Creatinine 24 Hour Digoxin Crossmatch 12/25/17 12/25/17 12/25/17 05:27 05:27 12:24 RBC Hgb Hct MCV MCH MCHC RDW Plt Count Lymph % (Auto) Jack % (Auto) Baso % (Auto) Lymph # Jack # Baso # Seg Neutrophils % Seg Neuts % (Manual) Lymphocytes % (Manual) Lymphocytes # (Manual) PT 22.1 H INR 1.81 H APTT Fibrinogen D-Dimer POC ABG pH POC ABG pCO2 POC ABG pO2 Sodium Potassium 3.5 L Chloride 96.7 L Carbon Dioxide BUN Creatinine 3.2 H Glucose POC Glucose 140 H Lactic Acid Calcium 8.1 L Phosphorus Magnesium TIBC Ferritin Total Bilirubin Direct Bilirubin AST Ammonia Lactate Dehydrogenase NT-Pro-B Natriuret Pep Total Protein Albumin Lipase Vitamin B12 Urine WBC (Auto) Urine Creatinine Ur Creatinine 24 Hour Digoxin Crossmatch 12/26/17 12/26/17 12/27/17 05:59 05:59 06:34 RBC 2.01 L 2.52 L Hgb 6.6 L 8.2 L Hct 18.6 L* 23.2 L MCV MCH 33 H MCHC 35 H 35 H RDW 16.6 H 15.3 H Plt Count 45 L 39 L Lymph % (Auto) 11.6 L Jack % (Auto) 10.3 H 11.2 H Baso % (Auto) Lymph # 1.0 L 0.7 L Jack # Baso # Seg Neutrophils % 72.2 H 75.4 H Seg Neuts % (Manual) Lymphocytes % (Manual) Lymphocytes # (Manual) PT INR APTT Fibrinogen D-Dimer POC ABG pH POC ABG pCO2 POC ABG pO2 Sodium Potassium 3.3 L Chloride Carbon Dioxide BUN Creatinine 3.8 H Glucose 110 H POC Glucose Lactic Acid Calcium Phosphorus 2.40 L Magnesium 1.40 L TIBC Ferritin Total Bilirubin 7.10 H Direct Bilirubin AST 73 H Ammonia Lactate Dehydrogenase NT-Pro-B Natriuret Pep Total Protein Albumin 3.5 L Lipase Vitamin B12 Urine WBC (Auto) Urine Creatinine Ur Creatinine 24 Hour Digoxin Crossmatch 12/27/17 12/27/17 12/27/17 06:34 06:34 06:34 RBC Hgb Hct MCV MCH MCHC RDW Plt Count Lymph % (Auto) Jack % (Auto) Baso % (Auto) Lymph # Jack # Baso # Seg Neutrophils % Seg Neuts % (Manual) Lymphocytes % (Manual) Lymphocytes # (Manual) PT INR APTT Fibrinogen D-Dimer POC ABG pH POC ABG pCO2 POC ABG pO2 Sodium Potassium 3.3 L Chloride 95.4 L Carbon Dioxide BUN Creatinine 2.6 H Glucose 112 H POC Glucose Lactic Acid Calcium 8.1 L Phosphorus Magnesium TIBC 77 L Ferritin > 2000.0 H Total Bilirubin 8.00 H Direct Bilirubin AST 89 H Ammonia Lactate Dehydrogenase 302 H NT-Pro-B Natriuret Pep Total Protein Albumin 3.7 L Lipase Vitamin B12 Urine WBC (Auto) Urine Creatinine Ur Creatinine 24 Hour Digoxin Crossmatch 12/28/17 12/28/17 12/29/17 06:24 09:00 00:30 RBC 2.25 L Hgb 7.5 L Hct 21.1 L MCV MCH 33 H MCHC 35 H RDW 16.2 H Plt Count 78 L D Lymph % (Auto) 12.5 L Jack % (Auto) 12.3 H Baso % (Auto) Lymph # 0.9 L Jack # 0.9 H Baso # Seg Neutrophils % 73.3 H Seg Neuts % (Manual) Lymphocytes % (Manual) Lymphocytes # (Manual) PT 23.7 H INR 1.97 H APTT 53.1 H Fibrinogen D-Dimer POC ABG pH POC ABG pCO2 POC ABG pO2 Sodium Potassium Chloride Carbon Dioxide BUN Creatinine Glucose POC Glucose 148 H Lactic Acid Calcium Phosphorus Magnesium TIBC Ferritin Total Bilirubin Direct Bilirubin AST Ammonia Lactate Dehydrogenase NT-Pro-B Natriuret Pep Total Protein Albumin Lipase Vitamin B12 Urine WBC (Auto) Urine Creatinine Ur Creatinine 24 Hour Digoxin Crossmatch 12/29/17 12/29/17 12/29/17 00:34 03:59 03:59 RBC 2.19 L Hgb 7.2 L Hct 20.7 L MCV 95 H MCH 33 H MCHC 35 H RDW 16.9 H Plt Count 75 L Lymph % (Auto) Jack % (Auto) 10.8 H Baso % (Auto) Lymph # Jack # Baso # Seg Neutrophils % 70.8 H Seg Neuts % (Manual) Lymphocytes % (Manual) Lymphocytes # (Manual) PT 25.7 H INR 2.18 H APTT Fibrinogen D-Dimer POC ABG pH POC ABG pCO2 POC ABG pO2 Sodium Potassium Chloride Carbon Dioxide BUN Creatinine 2.3 H Glucose 111 H POC Glucose Lactic Acid Calcium Phosphorus Magnesium TIBC Ferritin Total Bilirubin 8.20 H Direct Bilirubin AST 66 H Ammonia Lactate Dehydrogenase NT-Pro-B Natriuret Pep Total Protein Albumin 3.5 L Lipase Vitamin B12 Urine WBC (Auto) Urine Creatinine Ur Creatinine 24 Hour Digoxin Crossmatch 12/29/17 12/30/17 12/30/17 07:35 07:51 08:27 RBC 1.97 L Hgb 6.7 L Hct 18.8 L* MCV 96 H MCH 34 H MCHC 36 H RDW 17.6 H Plt Count 76 L Lymph % (Auto) Jack % (Auto) 10.5 H Baso % (Auto) Lymph # 1.0 L Jack # Baso # Seg Neutrophils % 72.4 H Seg Neuts % (Manual) Lymphocytes % (Manual) Lymphocytes # (Manual) PT INR APTT Fibrinogen D-Dimer POC ABG pH POC ABG pCO2 POC ABG pO2 Sodium Potassium Chloride Carbon Dioxide BUN Creatinine Glucose POC Glucose 113 H Lactic Acid Calcium Phosphorus Magnesium 1.50 L TIBC Ferritin Total Bilirubin Direct Bilirubin AST Ammonia Lactate Dehydrogenase NT-Pro-B Natriuret Pep Total Protein Albumin Lipase Vitamin B12 Urine WBC (Auto) Urine Creatinine Ur Creatinine 24 Hour Digoxin Crossmatch 12/30/17 12/31/17 12/31/17 08:44 12:59 12:59 RBC 2.49 L Hgb 8.3 L Hct 23.0 L MCV MCH 33 H MCHC 36 H RDW 17.5 H Plt Count 69 L Lymph % (Auto) Jack % (Auto) 13.0 H Baso % (Auto) 1.9 H Lymph # 1.1 L Jack # 0.9 H Baso # Seg Neutrophils % Seg Neuts % (Manual) Lymphocytes % (Manual) Lymphocytes # (Manual) PT INR APTT Fibrinogen D-Dimer POC ABG pH POC ABG pCO2 POC ABG pO2 Sodium Potassium Chloride Carbon Dioxide BUN 21 H Creatinine 3.8 H D Glucose 114 H POC Glucose Lactic Acid Calcium Phosphorus Magnesium TIBC Ferritin Total Bilirubin 8.30 H Direct Bilirubin AST 46 H Ammonia Lactate Dehydrogenase NT-Pro-B Natriuret Pep Total Protein Albumin Lipase Vitamin B12 Urine WBC (Auto) Urine Creatinine Ur Creatinine 24 Hour Digoxin Crossmatch See Detail 12/31/17 01/01/18 01/01/18 12:59 05:27 05:27 RBC 2.69 L Hgb 9.1 L Hct 25.1 L MCV MCH 34 H MCHC 36 H RDW 17.5 H Plt Count 64 L Lymph % (Auto) 12.5 L Jack % (Auto) 14.4 H Baso % (Auto) Lymph # 0.9 L Jack # 1.1 H Baso # Seg Neutrophils % 70.4 H Seg Neuts % (Manual) Lymphocytes % (Manual) Lymphocytes # (Manual) PT 19.7 H 22.1 H INR 1.57 H 1.81 H APTT Fibrinogen D-Dimer POC ABG pH POC ABG pCO2 POC ABG pO2 Sodium Potassium Chloride Carbon Dioxide BUN Creatinine Glucose POC Glucose Lactic Acid Calcium Phosphorus Magnesium TIBC Ferritin Total Bilirubin Direct Bilirubin AST Ammonia Lactate Dehydrogenase NT-Pro-B Natriuret Pep Total Protein Albumin Lipase Vitamin B12 Urine WBC (Auto) Urine Creatinine Ur Creatinine 24 Hour Digoxin Crossmatch 01/01/18 01/03/18 01/03/18 05:27 06:24 06:24 RBC 2.62 L Hgb 8.7 L Hct 25.6 L MCV 98 H MCH 33 H MCHC RDW 19.4 H Plt Count 55 L Lymph % (Auto) Jack % (Auto) 10.9 H Baso % (Auto) 2.7 H Lymph # 1.1 L Jack # 0.9 H Baso # 0.2 H Seg Neutrophils % Seg Neuts % (Manual) Lymphocytes % (Manual) Lymphocytes # (Manual) PT 24.1 H INR 2.01 H APTT Fibrinogen D-Dimer POC ABG pH POC ABG pCO2 POC ABG pO2 Sodium Potassium Chloride Carbon Dioxide BUN Creatinine 2.8 H Glucose POC Glucose Lactic Acid Calcium Phosphorus Magnesium TIBC Ferritin Total Bilirubin 9.20 H Direct Bilirubin AST 49 H Ammonia Lactate Dehydrogenase NT-Pro-B Natriuret Pep Total Protein Albumin 3.8 L Lipase Vitamin B12 Urine WBC (Auto) Urine Creatinine Ur Creatinine 24 Hour Digoxin Crossmatch 01/03/18 06:24 RBC Hgb Hct MCV MCH MCHC RDW Plt Count Lymph % (Auto) Jack % (Auto) Baso % (Auto) Lymph # Jack # Baso # Seg Neutrophils % Seg Neuts % (Manual) Lymphocytes % (Manual) Lymphocytes # (Manual) PT INR APTT Fibrinogen D-Dimer POC ABG pH POC ABG pCO2 POC ABG pO2 Sodium Potassium Chloride Carbon Dioxide BUN Creatinine Glucose POC Glucose Lactic Acid Calcium Phosphorus Magnesium TIBC Ferritin Total Bilirubin 9.00 H Direct Bilirubin 2.7 H AST 50 H Ammonia Lactate Dehydrogenase NT-Pro-B Natriuret Pep Total Protein Albumin 3.6 L Lipase Vitamin B12 Urine WBC (Auto) Urine Creatinine Ur Creatinine 24 Hour Digoxin Crossmatch Allied health notes reviewed: nursing
--- NOTE | 2018-01-04 19:44 | Progress Note ---
Assessment and Plan Assessment and plan: 62-year-old -Greek male patient with significant history of cirrhosis was admitted through emergency room with abdominal pain and generalized weakness Patient was admitted evaluated by GI and nephrology, received hemodialysis per schedule, severe anemia requiring 11 units of PRBC transfusion The patient has an appointment with transplant Center in [place], however patient has been unstable for discharge and could not keep the appointment.. Awaiting thoracentesis as recommended by pulmonology --Bilateral pleural effusion right greater than left. Chief Minister recommends giving FFP and thoracentesis Scheduled for thoracentesis today --Severe Cirrhosis with esophageal varices. Ascites s/p paracentesis , fluid analysis negative for SBP --Acute blood loss anemia. s/p PRBC transfusion, total 11 units during this admission EGD negative for esophageal variceal bleeding, closely monitor --Coagulopathy; secondary to cirrhosis liver Received vitamin K subcutaneous 1 dose, FFP's --Severe thrombocytopenia; secondary to cirrhosis --NSVT, resolved ; continue Lopressor --Septic/hypovolemic shock. On midodrine, --Sepsis;cultures negative --Rectal bleeding; resolved GI following --Toxic metabolic/hepatic encephalopathy. Hyperammonemia on admission. Resolved --Acute on chronic kidney disease : ATN/sepsis/hypotension. On hemodialysis,Outpatient dialysis per case management --Hepatorenal syndrome; on HD, nephrology following Patient has appointment for liver transplant evaluation in [place] . However patient was unstable for discharge Possible discharge in 1-2 days if stable Patient will follow up with [facility] was[facility] operator for further management Plan of care reviewed with the and his and his nurse I talked to Dr. Guevara transplant center updated patient's clinical status, a few days ago History Interval history: Patient seen and examined medical records reviewed Scheduled for thoracentesis today, however patient was also scheduled for HD Unable to get the procedure done Patient feels better, complains of generalized weakness, legally blind Vital signs reviewed Hospitalist Physical - Constitutional Vitals: Temp Pulse Resp BP Pulse Ox 98.1 F 80 20 132/76 100 01/04/18 13:20 01/04/18 17:20 01/04/18 17:20 01/04/18 13:20 01/04/18 17:20 General appearance: Present: no acute distress, cachectic, other (equally blind) - EENT Eyes: Present: PERRL, EOM intact - Neck Neck: Present: supple, normal ROM - Respiratory Respiratory effort: normal Respiratory: bilateral: diminished, rales, negative: rhonchi, wheezing - Cardiovascular Rhythm: regular Heart Sounds: Present: S1 & S2 - Extremities Extremities: no ischemia Extremity abnormal: edema - Abdominal General gastrointestinal: soft, non-tender, non-distended, normal bowel sounds - Integumentary Integumentary: Present: clear, warm - Psychiatric Psychiatric: appropriate mood/affect, other (sometimes confused) - Neurologic Neurologic: moves all extremities, other (legally blind) Results - Labs CBC & Chem 7: 01/03/18 06:24 01/01/18 05:27 Labs: Laboratory Last Values WBC 7.9 K/mm3 (4.5-11.0) 01/03/18 06:24 RBC 2.62 M/mm3 (3.65-5.03) L 01/03/18 06:24 Hgb 8.7 gm/dl (11.8-15.2) L 01/03/18 06:24 Hct 25.6 % (35.5-45.6) L 01/03/18 06:24 MCV 98 fl (84-94) H 01/03/18 06:24 MCH 33 pg (28-32) H 01/03/18 06:24 MCHC 34 % (32-34) 01/03/18 06:24 RDW 19.4 % (13.2-15.2) H 01/03/18 06:24 Plt Count 55 K/mm3 (140-440) L 01/03/18 06:24 Lymph % (Auto) 14.3 % (13.4-35.0) 01/03/18 06:24 Perry % (Auto) 10.9 % (0.0-7.3) H 01/03/18 06:24 Eos % (Auto) 2.2 % (0.0-4.3) 01/03/18 06:24 Baso % (Auto) 2.7 % (0.0-1.8) H 01/03/18 06:24 Lymph # 1.1 K/mm3 (1.2-5.4) L 01/03/18 06:24 Perry # 0.9 K/mm3 (0.0-0.8) H 01/03/18 06:24 Eos # 0.2 K/mm3 (0.0-0.4) 01/03/18 06:24 Baso # 0.2 K/mm3 (0.0-0.1) H 01/03/18 06:24 Add Manual Diff Complete 12/12/17 19:50 Total Counted 100 12/12/17 19:50 Seg Neutrophils % 69.9 % (40.0-70.0) 01/03/18 06:24 Seg Neuts % (Manual) 87.0 % (40.0-70.0) H 12/12/17 19:50 Band Neutrophils % 0 % 12/12/17 19:50 Lymphocytes % (Manual) 5.0 % (13.4-35.0) L 12/12/17 19:50 Reactive Lymphs % (Man) 0 % 12/12/17 19:50 Monocytes % (Manual) 6.0 % (0.0-7.3) 12/12/17 19:50 Eosinophils % (Manual) 2.0 % (0.0-4.3) 12/12/17 19:50 Basophils % (Manual) 0 % (0.0-1.8) 12/12/17 19:50 Metamyelocytes % 0 % 12/12/17 19:50 Myelocytes % 0 % 12/12/17 19:50 Promyelocytes % 0 % 12/12/17 19:50 Blast Cells % 0 % 12/12/17 19:50 Nucleated RBC % Not Reportable 12/12/17 19:50 Seg Neutrophils # 5.5 K/mm3 (1.8-7.7) 01/03/18 06:24 Seg Neutrophils # Man 4.9 K/mm3 (1.8-7.7) 12/12/17 19:50 Band Neutrophils # 0.0 K/mm3 12/12/17 19:50 Lymphocytes # (Manual) 0.3 K/mm3 (1.2-5.4) L 12/12/17 19:50 Abs React Lymphs (Man) 0.0 K/mm3 12/12/17 19:50 Monocytes # (Manual) 0.3 K/mm3 (0.0-0.8) 12/12/17 19:50 Eosinophils # (Manual) 0.1 K/mm3 (0.0-0.4) 12/12/17 19:50 Basophils # (Manual) 0.0 K/mm3 (0.0-0.1) 12/12/17 19:50 Metamyelocytes # 0.0 K/mm3 12/12/17 19:50 Myelocytes # 0.0 K/mm3 12/12/17 19:50 Promyelocytes # 0.0 K/mm3 12/12/17 19:50 Blast Cells # 0.0 K/mm3 12/12/17 19:50 WBC Morphology Not Reportable 12/12/17 19:50 Hypersegmented Neuts Not Reportable 12/12/17 19:50 Hyposegmented Neuts Not Reportable 12/12/17 19:50 Hypogranular Neuts Not Reportable 12/12/17 19:50 Smudge Cells Not Reportable 12/12/17 19:50 Toxic Granulation Not Reportable 12/12/17 19:50 Toxic Vacuolation Not Reportable 12/12/17 19:50 Dohle Bodies Not Reportable 12/12/17 19:50 Pelger-Huet Anomaly Not Reportable 12/12/17 19:50 Eriberto Rods Not Reportable 12/12/17 19:50 Platelet Estimate Appears decreased 12/12/17 19:50 Clumped Platelets Not Reportable 12/12/17 19:50 Plt Clumps, EDTA Not Reportable 12/12/17 19:50 Large Platelets 1+ 12/12/17 19:50 Giant Platelets Not Reportable 12/12/17 19:50 Platelet Satelliting Not Reportable 12/12/17 19:50 Plt Morphology Comment Not Reportable 12/12/17 19:50 RBC Morphology Not Reportable 12/12/17 19:50 Dimorphic RBCs Not Reportable 12/12/17 19:50 Polychromasia Not Reportable 12/12/17 19:50 Hypochromasia 1+ 12/12/17 19:50 Poikilocytosis Not Reportable 12/12/17 19:50 Anisocytosis Not Reportable 12/12/17 19:50 Microcytosis Not Reportable 12/12/17 19:50 Macrocytosis Not Reportable 12/12/17 19:50 Spherocytes Not Reportable 12/12/17 19:50 Pappenheimer Bodies Not Reportable 12/12/17 19:50 Sickle Cells Not Reportable 12/12/17 19:50 Target Cells Not Reportable 12/12/17 19:50 Tear Drop Cells Not Reportable 12/12/17 19:50 Ovalocytes Not Reportable 12/12/17 19:50 Helmet Cells Not Reportable 12/12/17 19:50 Dos Santos-Nibley Bodies Not Reportable 12/12/17 19:50 [place] Rings Not Reportable 12/12/17 19:50 [place] Cells 1+ 12/12/17 19:50 Bite Cells Not Reportable 12/12/17 19:50 Crenated Cell Not Reportable 12/12/17 19:50 Elliptocytes Not Reportable 12/12/17 19:50 Acanthocytes (Spur) 1+ 12/12/17 19:50 Rouleaux Not Reportable 12/12/17 19:50 Hemoglobin C Crystals Not Reportable 12/12/17 19:50 Schistocytes Not Reportable 12/12/17 19:50 Malaria parasites Not Reportable 12/12/17 19:50 ESR 18 mm/Hr (0-20) 12/12/17 19:50 Lyndon Bodies Not Reportable 12/12/17 19:50 Hem Pathologist Commnt No 12/12/17 19:50 PT 24.1 Sec. (12.2-14.9) H 01/03/18 06:24 INR 2.01 (0.87-1.13) H 01/03/18 06:24 APTT 53.1 Sec. (24.2-36.6) H 12/28/17 09:00 Fibrinogen 128 mg/dl (211-480) L 12/12/17 19:50 D-Dimer 1215.06 ng/mlDDU (0-234) H 12/12/17 19:50 Factor VIII:C Activity 178 % (50-180) 12/12/17 20:30 POC ABG pH 7.452 (7.35-7.45) H 12/12/17 09:13 POC ABG pCO2 22.2 (35-45) L 12/12/17 09:13 POC ABG pO2 75 (80-105) L 12/12/17 09:13 POC ABG HCO3 15.5 12/12/17 09:13 POC ABG Total CO2 16 12/12/17 09:13 POC ABG O2 Sat 96 12/12/17 09:13 POC ABG Base Excess -8 12/12/17 09:13 FiO2 21 % 12/12/17 09:13 Sodium 141 mmol/L (137-145) 01/01/18 05:27 Potassium 3.9 mmol/L (3.6-5.0) 01/01/18 05:27 Chloride 99.3 mmol/L (98-107) 01/01/18 05:27 Carbon Dioxide 25 mmol/L (22-30) 01/01/18 05:27 Anion Gap 21 mmol/L 01/01/18 05:27 BUN 16 mg/dL (9-20) 01/01/18 05:27 Creatinine 2.8 mg/dL (0.8-1.5) H 01/01/18 05:27 Estimated GFR 28 ml/min 01/01/18 05:27 BUN/Creatinine Ratio 6 % 01/01/18 05:27 Glucose 98 mg/dL (75-100) 01/01/18 05:27 POC Glucose 113 (70-105) H 12/29/17 07:35 Lactic Acid 3.90 mmol/L (0.7-2.0) H* 12/14/17 17:26 Calcium 9.0 mg/dL (8.4-10.2) 01/01/18 05:27 Phosphorus 2.40 mg/dL (2.5-4.5) L 12/26/17 05:59 Magnesium 1.70 mg/dL (1.7-2.3) 01/03/18 06:24 Iron 78 ug/dL (49-181) 12/27/17 06:34 TIBC 77 mcg/dL (250-450) L 12/27/17 06:34 Ferritin > 2000.0 ng/mL (13.0-400.0) H 12/27/17 06:34 Total Bilirubin 9.00 mg/dL (0.1-1.2) H 01/03/18 06:24 Direct Bilirubin 2.7 mg/dL (0-0.2) H 01/03/18 06:24 Indirect Bilirubin 6.3 mg/dL 01/03/18 06:24 AST 50 units/L (5-40) H 01/03/18 06:24 ALT 21 units/L (7-56) 01/03/18 06:24 Alkaline Phosphatase 91 units/L (35-129) 01/03/18 06:24 Ammonia 53.0 umol/L (25-60) 12/18/17 13:10 Lactate Dehydrogenase 302 units/L (91-180) H 12/27/17 06:34 Total Creatine Kinase 64 units/L (55-170) 12/10/17 23:14 C-Reactive Protein 0.30 mg/dL (0.00-1.30) 12/13/17 14:03 NT-Pro-B Natriuret Pep 9558 pg/mL (0-900) H 12/10/17 23:14 Total Protein 7.2 g/dL (6.3-8.2) 01/03/18 06:24 Albumin 3.6 g/dL (3.9-5) L 01/03/18 06:24 Albumin/Globulin Ratio 1.0 % 01/03/18 06:24 Lipase 7 units/L (13-60) L 12/10/17 23:14 Vitamin B12 1465 pg/mL (211-911) H 12/12/17 19:50 Folate 14.04 ng/mL (7.3-26.0) 12/12/17 19:50 TSH 2.560 mlU/mL (0.270-4.200) 12/16/17 12:37 Total Cortisol 8.6 mcg/dL () 12/16/17 12:37 Urine Color Yellow (Yellow) 12/10/17 23:05 Urine Turbidity Clear (Clear) 12/10/17 23:05 Urine pH 5.0 (5.0-7.0) 12/10/17 23:05 Ur Specific [place] 1.013 (1.003-1.030) 12/10/17 23:05 Urine Protein <15 mg/dl mg/dL (Negative) 12/10/17 23:05 Urine Glucose (UA) Neg mg/dL (Negative) 12/10/17 23:05 Urine Ketones Neg mg/dL (Negative) 12/10/17 23:05 Urine Blood Neg (Negative) 12/10/17 23:05 Urine Nitrite Neg (Negative) 12/10/17 23:05 Ur Reducing Substances Not Reportable 12/10/17 23:05 Urine Bilirubin Neg (Negative) 12/10/17 23:05 Urine Ictotest Not Reportable 12/10/17 23:05 Urine Urobilinogen < 2.0 mg/dL (<2.0) 12/10/17 23:05 Ur Leukocyte Esterase Sm (Negative) 12/10/17 23:05 Urine WBC (Auto) 10.0 /HPF (0.0-6.0) H 12/10/17 23:05 Urine RBC (Auto) 4.0 /HPF (0.0-6.0) 12/10/17 23:05 U Epithel Cells (Auto) < 1.0 /HPF (0-13.0) 12/10/17 23:05 Urine Mucus Few /HPF 12/10/17 23:05 Urine Total Volume 250 12/14/17 Unknown Urine Creatinine 122.5 mg/dL (0.1-20.0) H 12/14/17 Unknown Ur Creatinine 24 Hour 0.3 (0.8-2.8) L 12/14/17 Unknown Fluid Type Peritoneal 12/31/17 Unknown Fluid Color Red 12/31/17 Unknown Fluid Appearance Cloudy 12/31/17 Unknown Fluid WBC 55 /mm3 12/31/17 Unknown Fluid RBC 94794 /mm3 12/31/17 Unknown Fluid Seg Neutrophils 6.0 % 12/31/17 Unknown Fluid Lymphocytes 48.0 % 12/31/17 Unknown Fluid Monocytes 46.0 % 12/31/17 Unknown Digoxin 0.4 ng/mL (0.9-2.0) L 12/21/17 05:26 Hepatitis A IgM Ab Non-reactive (NonReactive) 12/12/17 19:50 Hep Bs Antigen Non-reactive (Negative) 12/12/17 19:50 Hep B Core IgM Ab Non-reactive (NonReactive) 12/12/17 19:50 Hepatitis C Antibody Non-reactive (NonReactive) 12/12/17 19:50 Miscellaneous Test Flexitest 1 12/12/17 06:42 Blood Type A NEGATIVE 01/04/18 Unknown Antibody Screen Negative 12/30/17 08:44 Direct Antiglob Test Negative 12/12/17 20:41 JOANNE, Poly Interpret Negative 12/12/17 20:41 Crossmatch See Detail 12/30/17 08:44
[2018-01-04] MEDS: PERCOCET 5/325 PO PRN (22:27)
[2018-01-05 05:52] LABS: Basophils # (Auto) 0.2 K/mm3 (0.0-0.1); Basophils % (Auto) 2.3 % (0.0-1.8); Eosinophils # (Auto) 0.1 K/mm3 (0.0-0.4); Eosinophils % (Auto) 1.1 % (0.0-4.3); Hematocrit 27.3 % (35.5-45.6); Hemoglobin 9.2 gm/dl (11.8-15.2); Lymphocytes # (Auto) 1.2 K/mm3 (1.2-5.4); Lymphocytes % (Auto) 16.1 % (13.4-35.0); Mean Corpuscular HGB Conc 34 % (32-34); Mean Corpuscular Hemoglobin 34 pg (28-32); Mean Corpuscular Volume 99 fl (84-94); Monocytes % (Auto) 14.3 % (0.0-7.3); Red Blood Count 2.75 M/mm3 (3.65-5.03)
[2018-01-05 05:53] LABS: Platelet Count 55 K/mm3 (140-440); Red Cell Distribution Width 23.5 % (13.2-15.2)
[2018-01-05 05:56] LABS: INR 2.04 (0.87-1.13)
[2018-01-05 06:15] LABS: Albumin 3.7 g/dL (3.9-5); Calcium 9.4 mg/dL (8.4-10.2)
[2018-01-05] MEDS: PERCOCET 5/325 PO PRN ×2 (08:23→22:37)
--- NOTE | 2018-01-05 09:58 | Progress Note ---
Subjective Principal diagnosis: CARMEN on CKD; Acute Encephalopathy; Sepsis Syndrome; Anemia Interval history: Patient was seen today for follow-up on multiple renal related issues Has had hemodialysis yesterday look pressure was relatively better HEENT: [place] dry Neck: Supple no thyromegaly no JVD Chest: Clear to auscultation anteriorly no crackles or wheezes Posteriorly breath sounds are diminished at the lung base Central venous catheter site unremarkable Heart: Regular rate and rhythm S1-S2 heard no S3-S4 Abdomen: Soft nontender dry skin and no organomegaly Dialysis in flanks Extremity: Less than 1+ edema dry skin no petechial rash Musculoskeletal: No joint effusion noted Assessment and plan: Acute kidney injury: Patient blood pressure is relatively better yesterday during dialysis he will continue with dialysis 3 times a week as long as his blood pressure is stable If his blood pressure is under 100 at that time we'll consider withholding dialysis Hypotension appears to be of multi-factorial etiology here mostly resulting from third spacing of fluid intravascular volume depletion Severe anemia: On erythropoietin received packed red blood cell transfusion Cirrhosis portal hypertension GI bleed, status post multiple units of transfusion Bilateral pleural effusion anasarca-like picture resulting from severe malnutrition anemia etc. Coagulopathy resulting from liver disease Encephalopathy: Appears to be multifactorial patient is currently being followed by transplant center in [place] Continue with supportive care for now Overall prognosis remains guarded to poor As of today hemoglobin 9.2 platelet count 55 k INR 2.04 creatinine 2.6 potassium 4.0 Objective - Vital Signs Vital signs: Vital Signs - 12hr 01/04/18 01/05/18 23:26 04:51 Temperature 98.1 F 98.4 F Pulse Rate 74 Respiratory 18 18 Rate Blood Pressure 102/63 102/69 O2 Sat by Pulse 94 Oximetry - Lab 01/05/18 04:47 01/05/18 04:47 Most recent lab results Calcium 9.4 mg/dL (8.4-10.2) 01/05/18 04:47 Phosphorus 2.40 mg/dL (2.5-4.5) L 12/26/17 05:59 Magnesium 1.70 mg/dL (1.7-2.3) 01/03/18 06:24 Urine Creatinine 122.5 mg/dL (0.1-20.0) H 12/14/17 Unknown
--- NOTE | 2018-01-05 10:37 | Progress Note ---
Assessment and Plan Assessment and plan: 62-year-old -[place] male patient with significant history of cirrhosis was admitted through emergency room with abdominal pain and generalized weakness, Patient was admitted evaluated by GI and nephrology, received hemodialysis per schedule, severe anemia requiring 11 units of PRBC transfusion, The patient has an appointment with transplant Center in [place], however patient has been unstable for discharge and could not keep the appointment.S/P paracentesis,negative for SBP., Awaiting thoracentesis recd by pulmonology Assessment and plan; --Bilateral pleural effusion right greater than left. Strap Cutting Machine Operator recommends giving FFP and thoracentesis Scheduled for thoracentesis --Severe Cirrhosis/Ascites/hyperbilirubinemia s/p paracentesis , fluid analysis negative for SBP --Acute blood loss anemia/ esophageal Varices s/p PRBC transfusion, total 11 units during this admission EGD negative for esophageal variceal bleeding, closely monitor --Coagulopathy; secondary to cirrhosis liver Received vitamin K subcutaneous 1 dose, FFP's Vitamin K, FFP's as needed --Severe thrombocytopenia; secondary to cirrhosis --NSVT, resolved ; continue Lopressor --Septic/hypovolemic shock. On midodrine, --Sepsis;cultures negative --Rectal bleeding; resolved GI following --Toxic metabolic/hepatic encephalopathy. Hyperammonemia on admission. Resolved --Acute on chronic kidney disease : ATN/sepsis/hypotension. On hemodialysis,Outpatient dialysis per case management --Hepatorenal syndrome; on HD, nephrology following Patient has appointment for liver transplant evaluation in [place] . However patient was unstable for discharge I talked to Dr. 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 management Plan of care reviewed with the and his and his nurse Hospitalist Physical - Constitutional Vitals: Temp Pulse Resp BP Pulse Ox 98.4 F 74 18 102/69 94 01/05/18 04:51 01/05/18 04:51 01/05/18 04:51 01/05/18 04:51 01/05/18 04:51 General appearance: Present: mild distress, well-nourished - EENT Eyes: Present: PERRL, EOM intact - Neck Neck: Present: supple, normal ROM - Respiratory Respiratory effort: normal Respiratory: bilateral: rales, wheezing - Cardiovascular Rhythm: regular Heart Sounds: Present: S1 & S2 - Extremities Extremities: no ischemia, No edema - Abdominal General gastrointestinal: soft, non-tender, distended, normal bowel sounds - Integumentary Integumentary: Present: clear, warm - Psychiatric Psychiatric: appropriate mood/affect, cooperative - Neurologic Neurologic: CNII-XII intact, moves all extremities Results - Labs CBC & Chem 7: 01/05/18 04:47 01/05/18 04:47 Labs: Laboratory Last Values WBC 7.3 K/mm3 (4.5-11.0) 01/05/18 04:47 RBC 2.75 M/mm3 (3.65-5.03) L 01/05/18 04:47 Hgb 9.2 gm/dl (11.8-15.2) L 01/05/18 04:47 Hct 27.3 % (35.5-45.6) L 01/05/18 04:47 MCV 99 fl (84-94) H 01/05/18 04:47 MCH 34 pg (28-32) H 01/05/18 04:47 MCHC 34 % (32-34) 01/05/18 04:47 RDW 23.5 % (13.2-15.2) H 01/05/18 04:47 Plt Count 55 K/mm3 (140-440) L 01/05/18 04:47 Lymph % (Auto) 16.1 % (13.4-35.0) 01/05/18 04:47 [place] % (Auto) 14.3 % (0.0-7.3) H 01/05/18 04:47 Eos % (Auto) 1.1 % (0.0-4.3) 01/05/18 04:47 Baso % (Auto) 2.3 % (0.0-1.8) H 01/05/18 04:47 Lymph # 1.2 K/mm3 (1.2-5.4) 01/05/18 04:47 [place] # 1.0 K/mm3 (0.0-0.8) H 01/05/18 04:47 Eos # 0.1 K/mm3 (0.0-0.4) 01/05/18 04:47 Baso # 0.2 K/mm3 (0.0-0.1) H 01/05/18 04:47 Add Manual Diff Complete 12/12/17 19:50 Total Counted 100 12/12/17 19:50 Seg Neutrophils % 66.2 % (40.0-70.0) 01/05/18 04:47 Seg Neuts % (Manual) 87.0 % (40.0-70.0) H 12/12/17 19:50 Band Neutrophils % 0 % 12/12/17 19:50 Lymphocytes % (Manual) 5.0 % (13.4-35.0) L 12/12/17 19:50 Reactive Lymphs % (Man) 0 % 12/12/17 19:50 Monocytes % (Manual) 6.0 % (0.0-7.3) 12/12/17 19:50 Eosinophils % (Manual) 2.0 % (0.0-4.3) 12/12/17 19:50 Basophils % (Manual) 0 % (0.0-1.8) 12/12/17 19:50 Metamyelocytes % 0 % 12/12/17 19:50 Myelocytes % 0 % 12/12/17 19:50 Promyelocytes % 0 % 12/12/17 19:50 Blast Cells % 0 % 12/12/17 19:50 Nucleated RBC % Not Reportable 12/12/17 19:50 Seg Neutrophils # 4.9 K/mm3 (1.8-7.7) 01/05/18 04:47 Seg Neutrophils # Man 4.9 K/mm3 (1.8-7.7) 12/12/17 19:50 Band Neutrophils # 0.0 K/mm3 12/12/17 19:50 Lymphocytes # (Manual) 0.3 K/mm3 (1.2-5.4) L 12/12/17 19:50 Abs React Lymphs (Man) 0.0 K/mm3 12/12/17 19:50 Monocytes # (Manual) 0.3 K/mm3 (0.0-0.8) 12/12/17 19:50 Eosinophils # (Manual) 0.1 K/mm3 (0.0-0.4) 12/12/17 19:50 Basophils # (Manual) 0.0 K/mm3 (0.0-0.1) 12/12/17 19:50 Metamyelocytes # 0.0 K/mm3 12/12/17 19:50 Myelocytes # 0.0 K/mm3 12/12/17 19:50 Promyelocytes # 0.0 K/mm3 12/12/17 19:50 Blast Cells # 0.0 K/mm3 12/12/17 19:50 WBC Morphology Not Reportable 12/12/17 19:50 Hypersegmented Neuts Not Reportable 12/12/17 19:50 Hyposegmented Neuts Not Reportable 12/12/17 19:50 Hypogranular Neuts Not Reportable 12/12/17 19:50 Smudge Cells Not Reportable 12/12/17 19:50 Toxic Granulation Not Reportable 12/12/17 19:50 Toxic Vacuolation Not Reportable 12/12/17 19:50 Dohle Bodies Not Reportable 12/12/17 19:50 Pelger-Huet Anomaly Not Reportable 12/12/17 19:50 Eriberto Rods Not Reportable 12/12/17 19:50 Platelet Estimate Appears decreased 12/12/17 19:50 Clumped Platelets Not Reportable 12/12/17 19:50 Plt Clumps, EDTA Not Reportable 12/12/17 19:50 Large Platelets 1+ 12/12/17 19:50 Giant Platelets Not Reportable 12/12/17 19:50 Platelet Satelliting Not Reportable 12/12/17 19:50 Plt Morphology Comment Not Reportable 12/12/17 19:50 RBC Morphology Not Reportable 12/12/17 19:50 Dimorphic RBCs Not Reportable 12/12/17 19:50 Polychromasia Not Reportable 12/12/17 19:50 Hypochromasia 1+ 12/12/17 19:50 Poikilocytosis Not Reportable 12/12/17 19:50 Anisocytosis Not Reportable 12/12/17 19:50 Microcytosis Not Reportable 12/12/17 19:50 Macrocytosis Not Reportable 12/12/17 19:50 Spherocytes Not Reportable 12/12/17 19:50 Pappenheimer Bodies Not Reportable 12/12/17 19:50 Sickle Cells Not Reportable 12/12/17 19:50 Target Cells Not Reportable 12/12/17 19:50 Tear Drop Cells Not Reportable 12/12/17 19:50 Ovalocytes Not Reportable 12/12/17 19:50 Helmet Cells Not Reportable 12/12/17 19:50 Dos Santos-Kahlotus Bodies Not Reportable 12/12/17 19:50 Bertrand Rings Not Reportable 12/12/17 19:50 Fahad Cells 1+ 12/12/17 19:50 Bite Cells Not Reportable 12/12/17 19:50 Crenated Cell Not Reportable 12/12/17 19:50 Elliptocytes Not Reportable 12/12/17 19:50 Acanthocytes (Spur) 1+ 12/12/17 19:50 Rouleaux Not Reportable 12/12/17 19:50 Hemoglobin C Crystals Not Reportable 12/12/17 19:50 Schistocytes Not Reportable 12/12/17 19:50 Malaria parasites Not Reportable 12/12/17 19:50 ESR 18 mm/Hr (0-20) 12/12/17 19:50 Lyndon Bodies Not Reportable 12/12/17 19:50 Hem Pathologist Commnt No 12/12/17 19:50 PT 24.3 Sec. (12.2-14.9) H 01/05/18 04:47 INR 2.04 (0.87-1.13) H 01/05/18 04:47 APTT 53.1 Sec. (24.2-36.6) H 12/28/17 09:00 Fibrinogen 128 mg/dl (211-480) L 12/12/17 19:50 D-Dimer 1215.06 ng/mlDDU (0-234) H 12/12/17 19:50 Factor VIII:C Activity 178 % (50-180) 12/12/17 20:30 POC ABG pH 7.452 (7.35-7.45) H 12/12/17 09:13 POC ABG pCO2 22.2 (35-45) L 12/12/17 09:13 POC ABG pO2 75 (80-105) L 12/12/17 09:13 POC ABG HCO3 15.5 12/12/17 09:13 POC ABG Total CO2 16 12/12/17 09:13 POC ABG O2 Sat 96 12/12/17 09:13 POC ABG Base Excess -8 12/12/17 09:13 FiO2 21 % 12/12/17 09:13 Sodium 141 mmol/L (137-145) 01/05/18 04:47 Potassium 4.0 mmol/L (3.6-5.0) 01/05/18 04:47 Chloride 98.2 mmol/L (98-107) 01/05/18 04:47 Carbon Dioxide 26 mmol/L (22-30) 01/05/18 04:47 Anion Gap 21 mmol/L 01/05/18 04:47 BUN 17 mg/dL (9-20) 01/05/18 04:47 Creatinine 2.6 mg/dL (0.8-1.5) H 01/05/18 04:47 Estimated GFR 30 ml/min 01/05/18 04:47 BUN/Creatinine Ratio 7 % 01/05/18 04:47 Glucose 117 mg/dL (75-100) H 01/05/18 04:47 POC Glucose 113 (70-105) H 12/29/17 07:35 Lactic Acid 3.90 mmol/L (0.7-2.0) H* 12/14/17 17:26 Calcium 9.4 mg/dL (8.4-10.2) 01/05/18 04:47 Phosphorus 2.40 mg/dL (2.5-4.5) L 12/26/17 05:59 Magnesium 1.70 mg/dL (1.7-2.3) 01/03/18 06:24 Iron 78 ug/dL (49-181) 12/27/17 06:34 TIBC 77 mcg/dL (250-450) L 12/27/17 06:34 Ferritin > 2000.0 ng/mL (13.0-400.0) H 12/27/17 06:34 Total Bilirubin 9.50 mg/dL (0.1-1.2) H 01/05/18 04:47 Direct Bilirubin 2.7 mg/dL (0-0.2) H 01/03/18 06:24 Indirect Bilirubin 6.3 mg/dL 01/03/18 06:24 AST 50 units/L (5-40) H 01/05/18 04:47 ALT 22 units/L (7-56) 01/05/18 04:47 Alkaline Phosphatase 85 units/L (35-129) 01/05/18 04:47 Ammonia 53.0 umol/L (25-60) 12/18/17 13:10 Lactate Dehydrogenase 302 units/L (91-180) H 12/27/17 06:34 Total Creatine Kinase 64 units/L (55-170) 12/10/17 23:14 C-Reactive Protein 0.30 mg/dL (0.00-1.30) 12/13/17 14:03 NT-Pro-B Natriuret Pep 9558 pg/mL (0-900) H 12/10/17 23:14 Total Protein 7.5 g/dL (6.3-8.2) 01/05/18 04:47 Albumin 3.7 g/dL (3.9-5) L 01/05/18 04:47 Albumin/Globulin Ratio 1.0 % 01/05/18 04:47 Lipase 7 units/L (13-60) L 12/10/17 23:14 Vitamin B12 1465 pg/mL (211-911) H 12/12/17 19:50 Folate 14.04 ng/mL (7.3-26.0) 12/12/17 19:50 TSH 2.560 mlU/mL (0.270-4.200) 12/16/17 12:37 Total Cortisol 8.6 mcg/dL () 12/16/17 12:37 Urine Color Yellow (Yellow) 12/10/17 23:05 Urine Turbidity Clear (Clear) 12/10/17 23:05 Urine pH 5.0 (5.0-7.0) 12/10/17 23:05 Ur Specific [place] 1.013 (1.003-1.030) 12/10/17 23:05 Urine Protein <15 mg/dl mg/dL (Negative) 12/10/17 23:05 Urine Glucose (UA) Neg mg/dL (Negative) 12/10/17 23:05 Urine Ketones Neg mg/dL (Negative) 12/10/17 23:05 Urine Blood Neg (Negative) 12/10/17 23:05 Urine Nitrite Neg (Negative) 12/10/17 23:05 Ur Reducing Substances Not Reportable 12/10/17 23:05 Urine Bilirubin Neg (Negative) 12/10/17 23:05 Urine Ictotest Not Reportable 12/10/17 23:05 Urine Urobilinogen < 2.0 mg/dL (<2.0) 12/10/17 23:05 Ur Leukocyte Esterase Sm (Negative) 12/10/17 23:05 Urine WBC (Auto) 10.0 /HPF (0.0-6.0) H 12/10/17 23:05 Urine RBC (Auto) 4.0 /HPF (0.0-6.0) 12/10/17 23:05 U Epithel Cells (Auto) < 1.0 /HPF (0-13.0) 12/10/17 23:05 Urine Mucus Few /HPF 12/10/17 23:05 Urine Total Volume 250 12/14/17 Unknown Urine Creatinine 122.5 mg/dL (0.1-20.0) H 12/14/17 Unknown Ur Creatinine 24 Hour 0.3 (0.8-2.8) L 12/14/17 Unknown Fluid Type Peritoneal 12/31/17 Unknown Fluid Color Red 12/31/17 Unknown Fluid Appearance Cloudy 12/31/17 Unknown Fluid WBC 55 /mm3 12/31/17 Unknown Fluid RBC 27764 /mm3 12/31/17 Unknown Fluid Seg Neutrophils 6.0 % 12/31/17 Unknown Fluid Lymphocytes 48.0 % 12/31/17 Unknown Fluid Monocytes 46.0 % 12/31/17 Unknown Digoxin 0.4 ng/mL (0.9-2.0) L 12/21/17 05:26 Hepatitis A IgM Ab Non-reactive (NonReactive) 12/12/17 19:50 Hep Bs Antigen Non-reactive (Negative) 12/12/17 19:50 Hep B Core IgM Ab Non-reactive (NonReactive) 12/12/17 19:50 Hepatitis C Antibody Non-reactive (NonReactive) 12/12/17 19:50 Miscellaneous Test Flexitest 1 12/12/17 06:42 Blood Type A NEGATIVE 01/04/18 Unknown Antibody Screen Negative 12/30/17 08:44 Direct Antiglob Test Negative 12/12/17 20:41 JOANNE, Poly Interpret Negative 12/12/17 20:41 Crossmatch See Detail 12/30/17 08:44
[2018-01-05] MEDS: XIFAXAN PO SCH ×2 (10:39→22:18)
[2018-01-05] MEDS: LOPRESSOR PO SCH ×2 (10:39→22:18)
[2018-01-05] MEDS: CEPHULAC PO SCH ×2 (10:39→22:18)
[2018-01-05] MEDS: THERAGRAN-M Tab PO SCH (10:39)
[2018-01-05] MEDS: PROTONIX FEEDTUBE SCH (10:39)
[2018-01-05] MEDS: PROAMATINE PO SCH ×3 (10:40→22:18)
--- NOTE | 2018-01-05 12:01 | Progress Note ---
Assessment and Plan Cardiac status is stable, we'll continue to follow on an intermittent basis. Subjective Date of service: 01/05/18 Principal diagnosis: CARMEN on CKD; Acute Encephalopathy; Sepsis Syndrome; Anemia Interval history: Patient is comfortable, no cardiac complaints, no acute distress. Objective Vital Signs Temp Pulse Pulse Resp BP Pulse Ox 01/05/18 10:00 66 66 01/05/18 04:51 98.4 F 74 18 102/69 94 01/04/18 23:26 98.1 F 18 102/63 01/04/18 20:00 78 01/04/18 19:29 97.9 F 79 18 80/42 99 01/04/18 17:20 80 20 100 01/04/18 13:20 98.1 F 74 18 132/76 01/04/18 13:15 74 130/78 01/04/18 13:00 74 125/76 01/04/18 12:45 69 126/79 01/04/18 12:30 69 129/81 01/04/18 12:15 69 122/80 - Physical Examination General: No Apparent Distress HEENT: Positive: PERRL Neck: Positive: neck supple. Negative: JVD/HJR Cardiac: Positive: Reg Rate and Rhythm Lungs: Positive: Decreased Breath Sounds Neuro: Positive: Weakness Abdomen: Positive: Soft, Active Bowel Sounds Skin: Positive: Clear Extremities: Absent: edema - Labs and Meds Cardiac Enzymes 01/05/18 Range/Units 04:47 AST 50 H (5-40) units/L Coagulation 01/05/18 Range/Units 04:47 PT 24.3 H (12.2-14.9) Sec. INR 2.04 H (0.87-1.13) CBC 01/05/18 Range/Units 04:47 WBC 7.3 (4.5-11.0) K/mm3 RBC 2.75 L (3.65-5.03) M/mm3 Hgb 9.2 L (11.8-15.2) gm/dl Hct 27.3 L (35.5-45.6) % Plt Count 55 L (140-440) K/mm3 Lymph # 1.2 (1.2-5.4) K/mm3 [place] # 1.0 H (0.0-0.8) K/mm3 Eos # 0.1 (0.0-0.4) K/mm3 Baso # 0.2 H (0.0-0.1) K/mm3 Comprehensive Metabolic Panel 01/05/18 Range/Units 04:47 Sodium 141 (137-145) mmol/L Potassium 4.0 (3.6-5.0) mmol/L Chloride 98.2 (98-107) mmol/L Carbon Dioxide 26 (22-30) mmol/L BUN 17 (9-20) mg/dL Creatinine 2.6 H (0.8-1.5) mg/dL Glucose 117 H (75-100) mg/dL Calcium 9.4 (8.4-10.2) mg/dL AST 50 H (5-40) units/L ALT 22 (7-56) units/L Alkaline Phosphatase 85 (35-129) units/L Total Protein 7.5 (6.3-8.2) g/dL Albumin 3.7 L (3.9-5) g/dL - Allied health notes Allied health notes reviewed: nursing
--- NOTE | 2018-01-05 14:18 | Progress Note ---
Assessment and Plan - Patient Problems (1) Acute hepatic encephalopathy Current Visit: Yes Status: Acute Plan to address problem: see orders. continue with lactulose, recheck ammonia level. continue same. supportive. (2) Anemia Current Visit: Yes Status: Acute Plan to address problem: see orders. Replacement transfusion, if hgb less than 7.0 same as above. see notes above. same as above, stable. see notes above. stable so far. (3) Renal failure Current Visit: Yes Status: Acute Plan to address problem: follow renal service. same as above. (4) Liver failure Current Visit: Yes Status: Acute Plan to address problem: Hepato-renal syndrome, continue with HD. (5) Coagulation disorder Current Visit: Yes Status: Acute Plan to address problem: see notes. Subjective Date of service: 01/05/18 Principal diagnosis: CARMEN on CKD; Acute Encephalopathy; Sepsis Syndrome; Anemia Interval history: Patient seen, restingm labs/notes reviewed. agree with management so far.labs showing consumptive coagulopathy. Patient seen, resting in bed, records/labs reviewed.PLT dropped some.Still no active bleeding. Patient seen/examined, records/labs / notes reviewed, hgb low at 6.9, will rec replacement transfusion,with HD tomorrow if planned to proceed with HD. Patient seen, resting in bed, labs/records reviewed, Hgb still low, transfusion written for today. Patient seen, resting in bed, labs reviewed, plt 57,000, rectal bleeding resolved, will continue to monitor patient/labs with you, and intervene with replacement transfusion, when needed. Patient seen, resting in bed, NAD, records reviewed. Patient seen, resting in bed, labs/records reviewed, no new issues, the latest plt fair, no any sign of bleeding. Patient seen, resting in bed, records reviewed, PLT 57,000, no bleeding. Patient seen, resting in bed, labs reviewed, hgb dropped drastically, due to rectal bleed.He is s/p blood transfusion. he is expected to continue to drop his hgb, as long as he continues to bleed. Will re check labs in am. Thrombocytopenia at above 20,000. will continue to monitor. Patient seen, resting in bed, labs reviewed, ,he will need some PLT+ FFP, especially if there is any plans for any procedure, otherwise, can watch if any active bleeding, or plt 20,000 or less. patient seen/examined, resting in bed, labs reviewed, s/p GI scope, and blood transfusion, Plt replacement ,to follow. patient seen, resting in bed, labs, reviewed, plt 39,000, replacement not given yesterday? Patient seen/examined, at the HD center, resting in bed, was able ro discuss his case with him, regarding prognosis, and options, as i had d/w his yesterday. he wants to talk with his first.. his PLT came up following transfusion, hgb at Fair level at this time,Will see how much this will hold in the next few days.He is really not a good candidate for any transplant ,given, his condition, and co morbid issues at this time. Prognosis is quite poor for Hepato-renal syndrome, let alone complicated by thrombocytopenia/anemia, and double vital organ failure.He has no real reserve as far as these organs are concerned.You may want to have a vince family talk with him, his , and doctors Patient resting in bed, labs reviewed, and fairly stable, slight drop in hgb, and plt, but overall stable in the last 24hrs.notes reviewed. Patient seen/resting in bed, labs reviewed, d/w primary team. Hgb dropped, but plt holding steady since replacement. Patient resting in bed, labs reviewed, rec stays the same.Replacement transfusion prn. i have spoken to patient/, and sister at [facility]. Patient seen/examined, resting in bed, c/o not eating much due to lack of appetite.Rec appetite enhancer. Patient seen, resting in bed, labs reviewed, and remain fair. Patient seen, resting in bed, labs, reviewed, INR 2+, PLT55,000.Will give some FFP today, and perhaps on sunday, to see if he can get his procedure done. Patient seen, resting in bed, labs reviewed, INR did not improve, following FFP yesterday , if at it was given. Objective - Constitutional Vitals: Vital Signs - 12hr 01/05/18 01/05/18 01/05/18 04:51 07:41 10:00 Temperature 98.4 F 97.6 F Pulse Rate 74 81 66 Pulse Rate [ 66 Apical] Respiratory 18 16 Rate Blood Pressure 102/69 105/72 O2 Sat by Pulse 94 97 Oximetry 01/05/18 12:07 Temperature 98.3 F Pulse Rate Pulse Rate [ Apical] Respiratory 18 Rate Blood Pressure 102/69 O2 Sat by Pulse Oximetry - EENT Eyes: PERRL, EOM intact ENT: hearing intact, clear oral mucosa Ears: bilateral: normal - Neck Neck: supple, normal ROM - Respiratory Respiratory effort: normal Respiratory: bilateral: CTA - Breasts Breasts: deferred - Cardiovascular Rhythm: regular Heart Sounds: Present: S1 & S2. Absent: gallop, rub Extremities: pulses intact, No edema, normal color, Full ROM - Gastrointestinal General gastrointestinal: Present: soft, non-tender, non-distended, normal bowel sounds Rectal Exam: deferred - Genitourinary Male genitourinary: deferred - Integumentary Integumentary: clear, warm, dry - Musculoskeletal Musculoskeletal: 1, strength equal bilaterally - Neurologic Neurologic: moves all extremities - Psychiatric Psychiatric: appropriate mood/affect - Labs CBC & Chem 7: 01/05/18 04:47 01/05/18 04:47 Labs: Abnormal lab results 01/05/18 01/05/18 01/05/18 Range/Units 04:47 04:47 04:47 RBC 2.75 L (3.65-5.03) M/mm3 Hgb 9.2 L (11.8-15.2) gm/dl Hct 27.3 L (35.5-45.6) % MCV 99 H (84-94) fl MCH 34 H (28-32) pg RDW 23.5 H (13.2-15.2) % Plt Count 55 L (140-440) K/mm3 [place] % (Auto) 14.3 H (0.0-7.3) % Baso % (Auto) 2.3 H (0.0-1.8) % [place] # 1.0 H (0.0-0.8) K/mm3 Baso # 0.2 H (0.0-0.1) K/mm3 PT 24.3 H (12.2-14.9) Sec. INR 2.04 H (0.87-1.13) Creatinine 2.6 H (0.8-1.5) mg/dL Glucose 117 H (75-100) mg/dL Total Bilirubin 9.50 H (0.1-1.2) mg/dL AST 50 H (5-40) units/L Albumin 3.7 L (3.9-5) g/dL
--- NOTE | 2018-01-05 23:24 | Progress Note ---
Assessment and Plan Patient sleeping at this time. No acute respiratory distress.O2 saturation 97% on 2 litres O2.Patient has paracentesis recently. No malignant cells reported. Patients INR still high.Patient did not have thoracentesis today. - Patient Problems (1) Bilateral pleural effusion Current Visit: No Status: Acute Plan to address problem: Patient scheduled for thoracentesis (2) Hypovolemic shock Current Visit: Yes Status: Acute Plan to address problem: Improved .Blood pressure 132/76. Patient alert, awake.Patient has no symptoms of hypotension now. (3) CARMEN (acute kidney injury) Current Visit: Yes Status: Acute Plan to address problem: Management as per nephrology. (4) Acute hepatic encephalopathy Current Visit: Yes Status: Acute Plan to address problem: Management as per primary care. (5) Alcoholic cirrhosis of liver with ascites Current Visit: Yes Status: Acute Plan to address problem: Management as per primary care. (6) Anemia Current Visit: Yes Status: Acute Plan to address problem: Management as per primary care. Subjective Date of service: 01/05/18 Principal diagnosis: CARMEN on CKD; Acute Encephalopathy; Sepsis Syndrome; Anemia Interval history: Patient sleeping at this time. No acute respiratory distress.O2 saturation 97% on 2 litres O2.Patient has paracentesis recently. No malignant cells reported. Patient INR still high. Patient did not have thoracentesis today. Objective Vital Signs - 12hr 01/05/18 01/05/18 01/05/18 11:58 12:07 16:30 Temperature 98.3 F 97.6 F Pulse Rate 68 68 Respiratory 18 18 Rate Blood Pressure 102/69 102/69 100/64 O2 Sat by Pulse 96 95 Oximetry 01/05/18 01/05/18 19:20 21:59 Temperature 98.2 F Pulse Rate Respiratory 18 Rate Blood Pressure 100/67 O2 Sat by Pulse 97 Oximetry Constitutional: no acute distress, asleep, other Eyes: non-icteric ENT: oropharynx moist, other (mallampati 2) Neck: supple, no lymphadenopathy, no JVD, other (no thyromegaly) Effort: normal Ascultation: Bilateral: diminished breath sounds (bases), rhonchi (scant) Percussion: Right: dull (base), Bilateral: not dull Cardiovascular: regular rate and rhythm, other (S1,S2, no murmurms, gallops or rubs) Gastrointestinal: normoactive bowel sounds, soft, non-tender, other (distended) Integumentary: rash Extremities: no cyanosis, no edema, pulses normal, no ischemia or petechiae, cool Neurologic: non-focal exam, pupils equal and round, motor strength normal and ( weak), other (alert, awake) Psychiatric: other (normal affect, confusion) CBC and BMP: 01/05/18 04:47 01/05/18 04:47 ABG, PT/INR, D-dimer: ABG POC ABG pH 7.452 (7.35-7.45) H 12/12/17 09:13 POC ABG pCO2 22.2 (35-45) L 12/12/17 09:13 POC ABG pO2 75 (80-105) L 12/12/17 09:13 POC ABG HCO3 15.5 12/12/17 09:13 POC ABG Total CO2 16 12/12/17 09:13 POC ABG O2 Sat 96 12/12/17 09:13 PT/INR, D-dimer PT 24.3 Sec. (12.2-14.9) H 01/05/18 04:47 INR 2.04 (0.87-1.13) H 01/05/18 04:47 D-Dimer 1215.06 ng/mlDDU (0-234) H 12/12/17 19:50 Abnormal lab findings: Abnormal Labs 12/10/17 12/10/17 12/10/17 13:14 13:14 23:05 RBC 2.31 L Hgb 7.3 L Hct 21.5 L MCV MCH MCHC RDW 17.7 H Plt Count 61 L Lymph % (Auto) [place] % (Auto) Baso % (Auto) Lymph # [place] # Baso # Seg Neutrophils % Seg Neuts % (Manual) 81.0 H Lymphocytes % (Manual) 11.0 L Lymphocytes # (Manual) 0.6 L PT INR APTT Fibrinogen D-Dimer POC ABG pH POC ABG pCO2 POC ABG pO2 Sodium 136 L Potassium 5.2 H Chloride Carbon Dioxide 15 L BUN 47 H Creatinine 5.2 H Glucose 127 H POC Glucose Lactic Acid Calcium Phosphorus Magnesium TIBC Ferritin Total Bilirubin 3.50 H Direct Bilirubin AST 71 H Ammonia Lactate Dehydrogenase NT-Pro-B Natriuret Pep Total Protein Albumin 2.6 L Lipase Vitamin B12 Urine WBC (Auto) 10.0 H Urine Creatinine Ur Creatinine 24 Hour Digoxin Crossmatch 12/10/17 12/10/17 12/10/17 23:14 23:14 23:14 RBC Hgb Hct MCV MCH MCHC RDW Plt Count Lymph % (Auto) [place] % (Auto) Baso % (Auto) Lymph # [place] # Baso # Seg Neutrophils % Seg Neuts % (Manual) Lymphocytes % (Manual) Lymphocytes # (Manual) PT INR APTT Fibrinogen D-Dimer POC ABG pH POC ABG pCO2 POC ABG pO2 Sodium Potassium Chloride Carbon Dioxide BUN Creatinine Glucose POC Glucose Lactic Acid 2.40 H* Calcium Phosphorus Magnesium TIBC Ferritin Total Bilirubin Direct Bilirubin AST Ammonia 134.0 H Lactate Dehydrogenase NT-Pro-B Natriuret Pep 9558 H Total Protein Albumin Lipase Vitamin B12 Urine WBC (Auto) Urine Creatinine Ur Creatinine 24 Hour Digoxin Crossmatch 12/10/17 12/11/17 12/11/17 23:14 00:29 03:33 RBC Hgb Hct MCV MCH MCHC RDW Plt Count Lymph % (Auto) [place] % (Auto) Baso % (Auto) Lymph # [place] # Baso # Seg Neutrophils % Seg Neuts % (Manual) Lymphocytes % (Manual) Lymphocytes # (Manual) PT INR APTT Fibrinogen D-Dimer POC ABG pH POC ABG pCO2 POC ABG pO2 Sodium Potassium Chloride Carbon Dioxide BUN Creatinine Glucose POC Glucose Lactic Acid 2.80 H* 3.00 H* Calcium Phosphorus Magnesium TIBC Ferritin Total Bilirubin Direct Bilirubin AST Ammonia Lactate Dehydrogenase NT-Pro-B Natriuret Pep Total Protein Albumin Lipase 7 L Vitamin B12 Urine WBC (Auto) Urine Creatinine Ur Creatinine 24 Hour Digoxin Crossmatch 12/11/17 12/11/17 12/11/17 04:08 04:34 04:34 RBC Hgb Hct MCV MCH MCHC RDW Plt Count Lymph % (Auto) [place] % (Auto) Baso % (Auto) Lymph # [place] # Baso # Seg Neutrophils % Seg Neuts % (Manual) Lymphocytes % (Manual) Lymphocytes # (Manual) PT 19.1 H INR 1.51 H APTT 45.7 H Fibrinogen D-Dimer POC ABG pH POC ABG pCO2 POC ABG pO2 Sodium Potassium Chloride Carbon Dioxide BUN Creatinine Glucose POC Glucose 113 H Lactic Acid 3.10 H* Calcium Phosphorus Magnesium TIBC Ferritin Total Bilirubin Direct Bilirubin AST Ammonia Lactate Dehydrogenase NT-Pro-B Natriuret Pep Total Protein Albumin Lipase Vitamin B12 Urine WBC (Auto) Urine Creatinine Ur Creatinine 24 Hour Digoxin Crossmatch 12/11/17 12/11/17 12/11/17 06:46 07:26 09:42 RBC Hgb Hct MCV MCH MCHC RDW Plt Count Lymph % (Auto) [place] % (Auto) Baso % (Auto) Lymph # [place] # Baso # Seg Neutrophils % Seg Neuts % (Manual) Lymphocytes % (Manual) Lymphocytes # (Manual) PT INR APTT Fibrinogen D-Dimer POC ABG pH POC ABG pCO2 POC ABG pO2 Sodium Potassium Chloride Carbon Dioxide BUN Creatinine Glucose POC Glucose Lactic Acid 2.70 H* 2.80 H* 2.90 H* Calcium Phosphorus Magnesium TIBC Ferritin Total Bilirubin Direct Bilirubin AST Ammonia Lactate Dehydrogenase NT-Pro-B Natriuret Pep Total Protein Albumin Lipase Vitamin B12 Urine WBC (Auto) Urine Creatinine Ur Creatinine 24 Hour Digoxin Crossmatch 12/11/17 12/11/17 12/11/17 13:12 14:06 23:14 RBC Hgb Hct MCV MCH MCHC RDW Plt Count Lymph % (Auto) [place] % (Auto) Baso % (Auto) Lymph # [place] # Baso # Seg Neutrophils % Seg Neuts % (Manual) Lymphocytes % (Manual) Lymphocytes # (Manual) PT INR APTT Fibrinogen D-Dimer POC ABG pH POC ABG pCO2 POC ABG pO2 Sodium Potassium Chloride Carbon Dioxide BUN Creatinine Glucose POC Glucose Lactic Acid 3.10 H* 3.10 H* 3.70 H* Calcium Phosphorus Magnesium TIBC Ferritin Total Bilirubin Direct Bilirubin AST Ammonia Lactate Dehydrogenase NT-Pro-B Natriuret Pep Total Protein Albumin Lipase Vitamin B12 Urine WBC (Auto) Urine Creatinine Ur Creatinine 24 Hour Digoxin Crossmatch 12/11/17 12/12/17 12/12/17 23:23 03:41 03:41 RBC 2.17 L Hgb 7.0 L Hct 19.9 L* MCV MCH 33 H MCHC 35 H RDW 17.7 H Plt Count 62 L Lymph % (Auto) [place] % (Auto) Baso % (Auto) Lymph # [place] # Baso # Seg Neutrophils % Seg Neuts % (Manual) 91.0 H Lymphocytes % (Manual) 3.0 L Lymphocytes # (Manual) 0.2 L PT INR APTT Fibrinogen D-Dimer POC ABG pH POC ABG pCO2 POC ABG pO2 Sodium Potassium 5.4 H Chloride Carbon Dioxide 12 L BUN 47 H Creatinine 4.5 H Glucose 103 H POC Glucose Lactic Acid Calcium 8.0 L Phosphorus Magnesium TIBC Ferritin Total Bilirubin 3.60 H Direct Bilirubin AST 58 H Ammonia Lactate Dehydrogenase NT-Pro-B Natriuret Pep Total Protein 5.9 L Albumin 2.5 L Lipase Vitamin B12 Urine WBC (Auto) Urine Creatinine Ur Creatinine 24 Hour Digoxin Crossmatch See Detail 12/12/17 12/12/17 12/12/17 07:00 09:13 17:55 RBC 2.06 L Hgb 6.6 L Hct 18.6 L* MCV MCH MCHC 36 H RDW 17.8 H Plt Count 77 L Lymph % (Auto) [place] % (Auto) Baso % (Auto) Lymph # [place] # Baso # Seg Neutrophils % Seg Neuts % (Manual) Lymphocytes % (Manual) Lymphocytes # (Manual) PT INR APTT Fibrinogen D-Dimer POC ABG pH 7.452 H POC ABG pCO2 22.2 L POC ABG pO2 75 L Sodium Potassium Chloride Carbon Dioxide BUN Creatinine Glucose POC Glucose 119 H Lactic Acid Calcium Phosphorus Magnesium TIBC Ferritin Total Bilirubin Direct Bilirubin AST Ammonia Lactate Dehydrogenase NT-Pro-B Natriuret Pep Total Protein Albumin Lipase Vitamin B12 Urine WBC (Auto) Urine Creatinine Ur Creatinine 24 Hour Digoxin Crossmatch 12/12/17 12/12/17 12/12/17 19:50 19:50 19:50 RBC 2.40 L Hgb 7.8 L Hct 21.3 L MCV MCH 33 H MCHC 37 H RDW 16.1 H Plt Count 99 L Lymph % (Auto) [place] % (Auto) Baso % (Auto) Lymph # [place] # Baso # Seg Neutrophils % Seg Neuts % (Manual) 87.0 H Lymphocytes % (Manual) 5.0 L Lymphocytes # (Manual) 0.3 L PT 21.9 H INR 1.79 H APTT 41.5 H Fibrinogen 128 L D-Dimer 1215.06 H POC ABG pH POC ABG pCO2 POC ABG pO2 Sodium Potassium Chloride Carbon Dioxide BUN Creatinine Glucose POC Glucose Lactic Acid Calcium Phosphorus Magnesium TIBC Ferritin Total Bilirubin 4.10 H Direct Bilirubin 1.6 H AST Ammonia Lactate Dehydrogenase NT-Pro-B Natriuret Pep Total Protein Albumin Lipase Vitamin B12 Urine WBC (Auto) Urine Creatinine Ur Creatinine 24 Hour Digoxin Crossmatch 12/12/17 12/12/17 12/12/17 19:50 19:50 23:46 RBC Hgb Hct MCV MCH MCHC RDW Plt Count Lymph % (Auto) [place] % (Auto) Baso % (Auto) Lymph # [place] # Baso # Seg Neutrophils % Seg Neuts % (Manual) Lymphocytes % (Manual) Lymphocytes # (Manual) PT INR APTT Fibrinogen D-Dimer POC ABG pH POC ABG pCO2 POC ABG pO2 Sodium Potassium Chloride Carbon Dioxide BUN Creatinine Glucose POC Glucose 110 H Lactic Acid Calcium Phosphorus Magnesium TIBC Ferritin Total Bilirubin Direct Bilirubin AST Ammonia Lactate Dehydrogenase 213 H NT-Pro-B Natriuret Pep Total Protein Albumin Lipase Vitamin B12 1465 H Urine WBC (Auto) Urine Creatinine Ur Creatinine 24 Hour Digoxin Crossmatch 12/13/17 12/13/17 12/13/17 04:00 04:00 05:12 RBC 2.32 L Hgb 7.4 L Hct 20.8 L MCV MCH MCHC 36 H RDW 16.1 H Plt Count 134 L Lymph % (Auto) 13.1 L [place] % (Auto) 7.9 H Baso % (Auto) Lymph # 0.8 L [place] # Baso # Seg Neutrophils % 76.3 H Seg Neuts % (Manual) Lymphocytes % (Manual) Lymphocytes # (Manual) PT INR APTT Fibrinogen D-Dimer POC ABG pH POC ABG pCO2 POC ABG pO2 Sodium Potassium Chloride Carbon Dioxide 21 L D BUN 48 H Creatinine 4.6 H Glucose 104 H POC Glucose 134 H Lactic Acid Calcium 8.1 L Phosphorus Magnesium TIBC Ferritin Total Bilirubin 4.70 H Direct Bilirubin AST 43 H Ammonia Lactate Dehydrogenase NT-Pro-B Natriuret Pep Total Protein 5.8 L Albumin 3.1 L Lipase Vitamin B12 Urine WBC (Auto) Urine Creatinine Ur Creatinine 24 Hour Digoxin Crossmatch 12/13/17 12/13/17 12/13/17 08:45 12:25 14:03 RBC Hgb Hct MCV MCH MCHC RDW Plt Count Lymph % (Auto) [place] % (Auto) Baso % (Auto) Lymph # [place] # Baso # Seg Neutrophils % Seg Neuts % (Manual) Lymphocytes % (Manual) Lymphocytes # (Manual) PT 20.5 H INR 1.65 H APTT Fibrinogen D-Dimer POC ABG pH POC ABG pCO2 POC ABG pO2 Sodium Potassium Chloride Carbon Dioxide BUN Creatinine Glucose POC Glucose 112 H Lactic Acid 3.70 H* Calcium Phosphorus Magnesium TIBC Ferritin Total Bilirubin Direct Bilirubin AST Ammonia Lactate Dehydrogenase NT-Pro-B Natriuret Pep Total Protein Albumin Lipase Vitamin B12 Urine WBC (Auto) Urine Creatinine Ur Creatinine 24 Hour Digoxin Crossmatch 12/13/17 12/13/17 12/13/17 14:03 18:52 21:09 RBC Hgb Hct MCV MCH MCHC RDW Plt Count Lymph % (Auto) [place] % (Auto) Baso % (Auto) Lymph # [place] # Baso # Seg Neutrophils % Seg Neuts % (Manual) Lymphocytes % (Manual) Lymphocytes # (Manual) PT INR APTT Fibrinogen D-Dimer POC ABG pH POC ABG pCO2 POC ABG pO2 Sodium Potassium Chloride Carbon Dioxide BUN Creatinine Glucose POC Glucose 110 H Lactic Acid 4.00 H* Calcium Phosphorus Magnesium TIBC Ferritin Total Bilirubin Direct Bilirubin AST Ammonia 87.0 H Lactate Dehydrogenase NT-Pro-B Natriuret Pep Total Protein Albumin Lipase Vitamin B12 Urine WBC (Auto) Urine Creatinine Ur Creatinine 24 Hour Digoxin Crossmatch 12/14/17 12/14/17 12/14/17 00:25 03:30 03:30 RBC 2.29 L Hgb 7.3 L Hct 20.7 L MCV MCH MCHC 35 H RDW 16.2 H Plt Count 84 L Lymph % (Auto) 12.8 L [place] % (Auto) 8.3 H Baso % (Auto) Lymph # 0.6 L [place] # Baso # Seg Neutrophils % 77.2 H Seg Neuts % (Manual) Lymphocytes % (Manual) Lymphocytes # (Manual) PT INR APTT Fibrinogen D-Dimer POC ABG pH POC ABG pCO2 POC ABG pO2 Sodium Potassium Chloride 96.1 L Carbon Dioxide BUN 48 H Creatinine 4.6 H Glucose 125 H POC Glucose 131 H Lactic Acid Calcium 7.9 L Phosphorus Magnesium TIBC Ferritin Total Bilirubin 4.70 H Direct Bilirubin AST 45 H Ammonia Lactate Dehydrogenase NT-Pro-B Natriuret Pep Total Protein 6.1 L Albumin 3.4 L Lipase Vitamin B12 Urine WBC (Auto) Urine Creatinine Ur Creatinine 24 Hour Digoxin Crossmatch 12/14/17 12/14/17 12/14/17 05:31 12:26 12:55 RBC Hgb Hct MCV MCH MCHC RDW Plt Count Lymph % (Auto) [place] % (Auto) Baso % (Auto) Lymph # [place] # Baso # Seg Neutrophils % Seg Neuts % (Manual) Lymphocytes % (Manual) Lymphocytes # (Manual) PT INR APTT Fibrinogen D-Dimer POC ABG pH POC ABG pCO2 POC ABG pO2 Sodium Potassium Chloride Carbon Dioxide BUN Creatinine Glucose POC Glucose 125 H 117 H Lactic Acid 3.40 H* Calcium Phosphorus Magnesium TIBC Ferritin Total Bilirubin Direct Bilirubin AST Ammonia Lactate Dehydrogenase NT-Pro-B Natriuret Pep Total Protein Albumin Lipase Vitamin B12 Urine WBC (Auto) Urine Creatinine Ur Creatinine 24 Hour Digoxin Crossmatch 12/14/17 12/14/17 12/14/17 15:26 17:26 18:07 RBC Hgb Hct MCV MCH MCHC RDW Plt Count Lymph % (Auto) [place] % (Auto) Baso % (Auto) Lymph # [place] # Baso # Seg Neutrophils % Seg Neuts % (Manual) Lymphocytes % (Manual) Lymphocytes # (Manual) PT INR APTT Fibrinogen D-Dimer POC ABG pH POC ABG pCO2 POC ABG pO2 Sodium Potassium Chloride Carbon Dioxide BUN Creatinine Glucose POC Glucose 143 H Lactic Acid 4.00 H* 3.90 H* Calcium Phosphorus Magnesium TIBC Ferritin Total Bilirubin Direct Bilirubin AST Ammonia Lactate Dehydrogenase NT-Pro-B Natriuret Pep Total Protein Albumin Lipase Vitamin B12 Urine WBC (Auto) Urine Creatinine Ur Creatinine 24 Hour Digoxin Crossmatch 12/14/17 12/15/17 12/15/17 Unknown 00:08 04:51 RBC 2.27 L Hgb 7.3 L Hct 20.7 L MCV MCH MCHC 35 H RDW 16.1 H Plt Count 92 L Lymph % (Auto) 12.5 L [place] % (Auto) 10.4 H Baso % (Auto) Lymph # 0.6 L [place] # Baso # Seg Neutrophils % 74.7 H Seg Neuts % (Manual) Lymphocytes % (Manual) Lymphocytes # (Manual) PT INR APTT Fibrinogen D-Dimer POC ABG pH POC ABG pCO2 POC ABG pO2 Sodium Potassium Chloride Carbon Dioxide BUN Creatinine Glucose POC Glucose 124 H Lactic Acid Calcium Phosphorus Magnesium TIBC Ferritin Total Bilirubin Direct Bilirubin AST Ammonia Lactate Dehydrogenase NT-Pro-B Natriuret Pep Total Protein Albumin Lipase Vitamin B12 Urine WBC (Auto) Urine Creatinine 122.5 H Ur Creatinine 24 Hour 0.3 L Digoxin Crossmatch 12/15/17 12/15/17 12/15/17 04:51 04:51 05:56 RBC Hgb Hct MCV MCH MCHC RDW Plt Count Lymph % (Auto) [place] % (Auto) Baso % (Auto) Lymph # [place] # Baso # Seg Neutrophils % Seg Neuts % (Manual) Lymphocytes % (Manual) Lymphocytes # (Manual) PT INR APTT Fibrinogen D-Dimer POC ABG pH POC ABG pCO2 POC ABG pO2 Sodium Potassium 3.5 L Chloride 92.6 L Carbon Dioxide BUN 50 H Creatinine 4.8 H Glucose 141 H POC Glucose 143 H Lactic Acid Calcium 7.9 L Phosphorus Magnesium TIBC Ferritin Total Bilirubin 3.60 H Direct Bilirubin AST 44 H Ammonia 24.0 L Lactate Dehydrogenase NT-Pro-B Natriuret Pep Total Protein 6.1 L Albumin 3.8 L Lipase Vitamin B12 Urine WBC (Auto) Urine Creatinine Ur Creatinine 24 Hour Digoxin Crossmatch 12/15/17 12/15/17 12/16/17 12:17 23:10 07:04 RBC Hgb Hct MCV MCH MCHC RDW Plt Count Lymph % (Auto) [place] % (Auto) Baso % (Auto) Lymph # [place] # Baso # Seg Neutrophils % Seg Neuts % (Manual) Lymphocytes % (Manual) Lymphocytes # (Manual) PT INR APTT Fibrinogen D-Dimer POC ABG pH POC ABG pCO2 POC ABG pO2 Sodium Potassium Chloride Carbon Dioxide BUN Creatinine Glucose POC Glucose 127 H 157 H 147 H Lactic Acid Calcium Phosphorus Magnesium TIBC Ferritin Total Bilirubin Direct Bilirubin AST Ammonia Lactate Dehydrogenase NT-Pro-B Natriuret Pep Total Protein Albumin Lipase Vitamin B12 Urine WBC (Auto) Urine Creatinine Ur Creatinine 24 Hour Digoxin Crossmatch 12/16/17 12/16/17 12/16/17 11:35 12:37 12:37 RBC 2.21 L Hgb 6.9 L Hct 20.2 L MCV MCH MCHC RDW 16.2 H Plt Count 50 L Lymph % (Auto) [place] % (Auto) 9.7 H Baso % (Auto) Lymph # 0.7 L [place] # Baso # Seg Neutrophils % 73.1 H Seg Neuts % (Manual) Lymphocytes % (Manual) Lymphocytes # (Manual) PT INR APTT Fibrinogen D-Dimer POC ABG pH POC ABG pCO2 POC ABG pO2 Sodium Potassium Chloride 88.2 L Carbon Dioxide BUN 52 H Creatinine 5.5 H Glucose 107 H POC Glucose 134 H Lactic Acid Calcium 7.8 L Phosphorus Magnesium TIBC Ferritin Total Bilirubin 2.60 H Direct Bilirubin AST 49 H Ammonia Lactate Dehydrogenase NT-Pro-B Natriuret Pep Total Protein Albumin 3.6 L Lipase Vitamin B12 Urine WBC (Auto) Urine Creatinine Ur Creatinine 24 Hour Digoxin Crossmatch 12/16/17 12/16/17 12/16/17 18:06 20:45 23:34 RBC Hgb Hct MCV MCH MCHC RDW Plt Count Lymph % (Auto) [place] % (Auto) Baso % (Auto) Lymph # [place] # Baso # Seg Neutrophils % Seg Neuts % (Manual) Lymphocytes % (Manual) Lymphocytes # (Manual) PT INR APTT Fibrinogen D-Dimer POC ABG pH POC ABG pCO2 POC ABG pO2 Sodium Potassium Chloride Carbon Dioxide BUN Creatinine Glucose POC Glucose 133 H 139 H Lactic Acid Calcium Phosphorus Magnesium TIBC Ferritin Total Bilirubin Direct Bilirubin AST Ammonia Lactate Dehydrogenase NT-Pro-B Natriuret Pep Total Protein Albumin Lipase Vitamin B12 Urine WBC (Auto) Urine Creatinine Ur Creatinine 24 Hour Digoxin Crossmatch See Detail 12/17/17 12/17/17 12/17/17 05:27 05:27 06:11 RBC 2.10 L Hgb 6.6 L Hct 19.2 L* MCV MCH MCHC 35 H RDW 16.5 H Plt Count 65 L Lymph % (Auto) 12.6 L [place] % (Auto) 9.6 H Baso % (Auto) Lymph # 0.7 L [place] # Baso # Seg Neutrophils % 75.8 H Seg Neuts % (Manual) Lymphocytes % (Manual) Lymphocytes # (Manual) PT INR APTT Fibrinogen D-Dimer POC ABG pH POC ABG pCO2 POC ABG pO2 Sodium 135 L Potassium 3.4 L Chloride 84.9 L Carbon Dioxide 33 H BUN 53 H Creatinine 5.9 H Glucose POC Glucose 110 H Lactic Acid Calcium 7.7 L Phosphorus Magnesium TIBC Ferritin Total Bilirubin 2.70 H Direct Bilirubin AST 50 H Ammonia Lactate Dehydrogenase NT-Pro-B Natriuret Pep Total Protein 6.2 L Albumin 3.7 L Lipase Vitamin B12 Urine WBC (Auto) Urine Creatinine Ur Creatinine 24 Hour Digoxin Crossmatch 12/17/17 12/18/17 12/18/17 09:34 00:05 05:21 RBC 3.35 L Hgb 10.3 L D Hct 30.4 L D MCV MCH MCHC RDW 16.2 H Plt Count 57 L Lymph % (Auto) 8.0 L [place] % (Auto) 10.9 H Baso % (Auto) Lymph # 0.6 L [place] # Baso # Seg Neutrophils % 80.2 H Seg Neuts % (Manual) Lymphocytes % (Manual) Lymphocytes # (Manual) PT 23.9 H INR 1.99 H APTT Fibrinogen D-Dimer POC ABG pH POC ABG pCO2 POC ABG pO2 Sodium Potassium Chloride Carbon Dioxide BUN Creatinine Glucose POC Glucose 132 H Lactic Acid Calcium Phosphorus Magnesium TIBC Ferritin Total Bilirubin Direct Bilirubin AST Ammonia Lactate Dehydrogenase NT-Pro-B Natriuret Pep Total Protein Albumin Lipase Vitamin B12 Urine WBC (Auto) Urine Creatinine Ur Creatinine 24 Hour Digoxin Crossmatch 12/18/17 12/18/17 12/18/17 05:21 06:16 11:11 RBC Hgb Hct MCV MCH MCHC RDW Plt Count Lymph % (Auto) [place] % (Auto) Baso % (Auto) Lymph # [place] # Baso # Seg Neutrophils % Seg Neuts % (Manual) Lymphocytes % (Manual) Lymphocytes # (Manual) PT 34.7 H INR 3.17 H APTT Fibrinogen D-Dimer POC ABG pH POC ABG pCO2 POC ABG pO2 Sodium Potassium 3.5 L Chloride 87.1 L Carbon Dioxide BUN 35 H Creatinine 4.3 H Glucose 110 H POC Glucose 116 H Lactic Acid Calcium 8.1 L Phosphorus Magnesium TIBC Ferritin Total Bilirubin 5.10 H Direct Bilirubin AST 56 H Ammonia Lactate Dehydrogenase NT-Pro-B Natriuret Pep Total Protein Albumin Lipase Vitamin B12 Urine WBC (Auto) Urine Creatinine Ur Creatinine 24 Hour Digoxin Crossmatch 12/18/17 12/18/17 12/18/17 13:10 17:52 22:04 RBC Hgb Hct MCV MCH MCHC RDW Plt Count Lymph % (Auto) [place] % (Auto) Baso % (Auto) Lymph # [place] # Baso # Seg Neutrophils % Seg Neuts % (Manual) Lymphocytes % (Manual) Lymphocytes # (Manual) PT 25.9 H INR 2.20 H APTT Fibrinogen D-Dimer POC ABG pH POC ABG pCO2 POC ABG pO2 Sodium Potassium Chloride Carbon Dioxide BUN Creatinine Glucose POC Glucose 114 H 108 H Lactic Acid Calcium Phosphorus Magnesium TIBC Ferritin Total Bilirubin Direct Bilirubin AST Ammonia Lactate Dehydrogenase NT-Pro-B Natriuret Pep Total Protein Albumin Lipase Vitamin B12 Urine WBC (Auto) Urine Creatinine Ur Creatinine 24 Hour Digoxin Crossmatch 12/19/17 12/19/17 12/19/17 05:55 05:55 10:20 RBC 2.85 L Hgb 9.1 L Hct 25.7 L MCV MCH MCHC 35 H RDW 16.4 H Plt Count 61 L Lymph % (Auto) [place] % (Auto) Baso % (Auto) Lymph # [place] # Baso # Seg Neutrophils % Seg Neuts % (Manual) Lymphocytes % (Manual) Lymphocytes # (Manual) PT INR APTT Fibrinogen D-Dimer POC ABG pH POC ABG pCO2 POC ABG pO2 Sodium Potassium Chloride 94.5 L Carbon Dioxide BUN 27 H Creatinine 3.6 H Glucose POC Glucose 131 H Lactic Acid Calcium 8.2 L Phosphorus Magnesium TIBC Ferritin Total Bilirubin Direct Bilirubin AST Ammonia Lactate Dehydrogenase NT-Pro-B Natriuret Pep Total Protein Albumin Lipase Vitamin B12 Urine WBC (Auto) Urine Creatinine Ur Creatinine 24 Hour Digoxin Crossmatch 12/19/17 12/21/17 12/21/17 11:46 05:26 05:26 RBC 2.60 L Hgb 8.4 L Hct 23.9 L MCV MCH MCHC 35 H RDW 16.2 H Plt Count 57 L Lymph % (Auto) 12.4 L [place] % (Auto) 10.7 H Baso % (Auto) Lymph # [place] # 1.0 H Baso # Seg Neutrophils % 74.8 H Seg Neuts % (Manual) Lymphocytes % (Manual) Lymphocytes # (Manual) PT 26.2 H INR 2.23 H APTT Fibrinogen D-Dimer POC ABG pH POC ABG pCO2 POC ABG pO2 Sodium Potassium Chloride Carbon Dioxide BUN Creatinine Glucose POC Glucose Lactic Acid Calcium Phosphorus Magnesium TIBC Ferritin Total Bilirubin Direct Bilirubin AST Ammonia Lactate Dehydrogenase NT-Pro-B Natriuret Pep Total Protein Albumin Lipase Vitamin B12 Urine WBC (Auto) Urine Creatinine Ur Creatinine 24 Hour Digoxin 0.4 L Crossmatch 12/21/17 12/23/17 12/24/17 09:40 08:15 04:51 RBC 1.80 L Hgb 5.9 L* Hct 17.0 L* D MCV MCH 33 H MCHC 35 H RDW 16.5 H Plt Count 53 L Lymph % (Auto) [place] % (Auto) Baso % (Auto) Lymph # [place] # Baso # Seg Neutrophils % Seg Neuts % (Manual) Lymphocytes % (Manual) Lymphocytes # (Manual) PT 26.4 H 27.9 H INR 2.26 H 2.42 H APTT Fibrinogen D-Dimer POC ABG pH POC ABG pCO2 POC ABG pO2 Sodium Potassium Chloride Carbon Dioxide BUN Creatinine Glucose POC Glucose Lactic Acid Calcium Phosphorus Magnesium TIBC Ferritin Total Bilirubin Direct Bilirubin AST Ammonia Lactate Dehydrogenase NT-Pro-B Natriuret Pep Total Protein Albumin Lipase Vitamin B12 Urine WBC (Auto) Urine Creatinine Ur Creatinine 24 Hour Digoxin Crossmatch 12/24/17 12/24/17 12/24/17 04:51 06:25 08:20 RBC Hgb Hct MCV MCH MCHC RDW Plt Count Lymph % (Auto) [place] % (Auto) Baso % (Auto) Lymph # [place] # Baso # Seg Neutrophils % Seg Neuts % (Manual) Lymphocytes % (Manual) Lymphocytes # (Manual) PT 40.8 H INR 3.87 H APTT Fibrinogen D-Dimer POC ABG pH POC ABG pCO2 POC ABG pO2 Sodium Potassium 3.5 L Chloride Carbon Dioxide BUN 21 H Creatinine 4.4 H Glucose POC Glucose Lactic Acid Calcium 8.1 L Phosphorus Magnesium TIBC Ferritin Total Bilirubin Direct Bilirubin AST Ammonia Lactate Dehydrogenase NT-Pro-B Natriuret Pep Total Protein Albumin Lipase Vitamin B12 Urine WBC (Auto) Urine Creatinine Ur Creatinine 24 Hour Digoxin Crossmatch See Detail 12/24/17 12/24/17 12/25/17 19:21 19:21 05:27 RBC 2.31 L Hgb 7.3 L 7.4 L Hct 20.4 L 21.3 L MCV MCH MCHC 35 H RDW 15.9 H Plt Count 39 L Lymph % (Auto) [place] % (Auto) 10.8 H Baso % (Auto) Lymph # 0.9 L [place] # Baso # Seg Neutrophils % 71.9 H Seg Neuts % (Manual) Lymphocytes % (Manual) Lymphocytes # (Manual) PT 21.3 H INR 1.73 H APTT Fibrinogen D-Dimer POC ABG pH POC ABG pCO2 POC ABG pO2 Sodium Potassium Chloride Carbon Dioxide BUN Creatinine Glucose POC Glucose Lactic Acid Calcium Phosphorus Magnesium TIBC Ferritin Total Bilirubin Direct Bilirubin AST Ammonia Lactate Dehydrogenase NT-Pro-B Natriuret Pep Total Protein Albumin Lipase Vitamin B12 Urine WBC (Auto) Urine Creatinine Ur Creatinine 24 Hour Digoxin Crossmatch 12/25/17 12/25/17 12/25/17 05:27 05:27 12:24 RBC Hgb Hct MCV MCH MCHC RDW Plt Count Lymph % (Auto) [place] % (Auto) Baso % (Auto) Lymph # [place] # Baso # Seg Neutrophils % Seg Neuts % (Manual) Lymphocytes % (Manual) Lymphocytes # (Manual) PT 22.1 H INR 1.81 H APTT Fibrinogen D-Dimer POC ABG pH POC ABG pCO2 POC ABG pO2 Sodium Potassium 3.5 L Chloride 96.7 L Carbon Dioxide BUN Creatinine 3.2 H Glucose POC Glucose 140 H Lactic Acid Calcium 8.1 L Phosphorus Magnesium TIBC Ferritin Total Bilirubin Direct Bilirubin AST Ammonia Lactate Dehydrogenase NT-Pro-B Natriuret Pep Total Protein Albumin Lipase Vitamin B12 Urine WBC (Auto) Urine Creatinine Ur Creatinine 24 Hour Digoxin Crossmatch 12/26/17 12/26/17 12/27/17 05:59 05:59 06:34 RBC 2.01 L 2.52 L Hgb 6.6 L 8.2 L Hct 18.6 L* 23.2 L MCV MCH 33 H MCHC 35 H 35 H RDW 16.6 H 15.3 H Plt Count 45 L 39 L Lymph % (Auto) 11.6 L [place] % (Auto) 10.3 H 11.2 H Baso % (Auto) Lymph # 1.0 L 0.7 L [place] # Baso # Seg Neutrophils % 72.2 H 75.4 H Seg Neuts % (Manual) Lymphocytes % (Manual) Lymphocytes # (Manual) PT INR APTT Fibrinogen D-Dimer POC ABG pH POC ABG pCO2 POC ABG pO2 Sodium Potassium 3.3 L Chloride Carbon Dioxide BUN Creatinine 3.8 H Glucose 110 H POC Glucose Lactic Acid Calcium Phosphorus 2.40 L Magnesium 1.40 L TIBC Ferritin Total Bilirubin 7.10 H Direct Bilirubin AST 73 H Ammonia Lactate Dehydrogenase NT-Pro-B Natriuret Pep Total Protein Albumin 3.5 L Lipase Vitamin B12 Urine WBC (Auto) Urine Creatinine Ur Creatinine 24 Hour Digoxin Crossmatch 12/27/17 12/27/17 12/27/17 06:34 06:34 06:34 RBC Hgb Hct MCV MCH MCHC RDW Plt Count Lymph % (Auto) [place] % (Auto) Baso % (Auto) Lymph # [place] # Baso # Seg Neutrophils % Seg Neuts % (Manual) Lymphocytes % (Manual) Lymphocytes # (Manual) PT INR APTT Fibrinogen D-Dimer POC ABG pH POC ABG pCO2 POC ABG pO2 Sodium Potassium 3.3 L Chloride 95.4 L Carbon Dioxide BUN Creatinine 2.6 H Glucose 112 H POC Glucose Lactic Acid Calcium 8.1 L Phosphorus Magnesium TIBC 77 L Ferritin > 2000.0 H Total Bilirubin 8.00 H Direct Bilirubin AST 89 H Ammonia Lactate Dehydrogenase 302 H NT-Pro-B Natriuret Pep Total Protein Albumin 3.7 L Lipase Vitamin B12 Urine WBC (Auto) Urine Creatinine Ur Creatinine 24 Hour Digoxin Crossmatch 12/28/17 12/28/17 12/29/17 06:24 09:00 00:30 RBC 2.25 L Hgb 7.5 L Hct 21.1 L MCV MCH 33 H MCHC 35 H RDW 16.2 H Plt Count 78 L D Lymph % (Auto) 12.5 L [place] % (Auto) 12.3 H Baso % (Auto) Lymph # 0.9 L [place] # 0.9 H Baso # Seg Neutrophils % 73.3 H Seg Neuts % (Manual) Lymphocytes % (Manual) Lymphocytes # (Manual) PT 23.7 H INR 1.97 H APTT 53.1 H Fibrinogen D-Dimer POC ABG pH POC ABG pCO2 POC ABG pO2 Sodium Potassium Chloride Carbon Dioxide BUN Creatinine Glucose POC Glucose 148 H Lactic Acid Calcium Phosphorus Magnesium TIBC Ferritin Total Bilirubin Direct Bilirubin AST Ammonia Lactate Dehydrogenase NT-Pro-B Natriuret Pep Total Protein Albumin Lipase Vitamin B12 Urine WBC (Auto) Urine Creatinine Ur Creatinine 24 Hour Digoxin Crossmatch 12/29/17 12/29/17 12/29/17 00:34 03:59 03:59 RBC 2.19 L Hgb 7.2 L Hct 20.7 L MCV 95 H MCH 33 H MCHC 35 H RDW 16.9 H Plt Count 75 L Lymph % (Auto) [place] % (Auto) 10.8 H Baso % (Auto) Lymph # [place] # Baso # Seg Neutrophils % 70.8 H Seg Neuts % (Manual) Lymphocytes % (Manual) Lymphocytes # (Manual) PT 25.7 H INR 2.18 H APTT Fibrinogen D-Dimer POC ABG pH POC ABG pCO2 POC ABG pO2 Sodium Potassium Chloride Carbon Dioxide BUN Creatinine 2.3 H Glucose 111 H POC Glucose Lactic Acid Calcium Phosphorus Magnesium TIBC Ferritin Total Bilirubin 8.20 H Direct Bilirubin AST 66 H Ammonia Lactate Dehydrogenase NT-Pro-B Natriuret Pep Total Protein Albumin 3.5 L Lipase Vitamin B12 Urine WBC (Auto) Urine Creatinine Ur Creatinine 24 Hour Digoxin Crossmatch 12/29/17 12/30/17 12/30/17 07:35 07:51 08:27 RBC 1.97 L Hgb 6.7 L Hct 18.8 L* MCV 96 H MCH 34 H MCHC 36 H RDW 17.6 H Plt Count 76 L Lymph % (Auto) [place] % (Auto) 10.5 H Baso % (Auto) Lymph # 1.0 L [place] # Baso # Seg Neutrophils % 72.4 H Seg Neuts % (Manual) Lymphocytes % (Manual) Lymphocytes # (Manual) PT INR APTT Fibrinogen D-Dimer POC ABG pH POC ABG pCO2 POC ABG pO2 Sodium Potassium Chloride Carbon Dioxide BUN Creatinine Glucose POC Glucose 113 H Lactic Acid Calcium Phosphorus Magnesium 1.50 L TIBC Ferritin Total Bilirubin Direct Bilirubin AST Ammonia Lactate Dehydrogenase NT-Pro-B Natriuret Pep Total Protein Albumin Lipase Vitamin B12 Urine WBC (Auto) Urine Creatinine Ur Creatinine 24 Hour Digoxin Crossmatch 12/30/17 12/31/17 12/31/17 08:44 12:59 12:59 RBC 2.49 L Hgb 8.3 L Hct 23.0 L MCV MCH 33 H MCHC 36 H RDW 17.5 H Plt Count 69 L Lymph % (Auto) [place] % (Auto) 13.0 H Baso % (Auto) 1.9 H Lymph # 1.1 L [place] # 0.9 H Baso # Seg Neutrophils % Seg Neuts % (Manual) Lymphocytes % (Manual) Lymphocytes # (Manual) PT INR APTT Fibrinogen D-Dimer POC ABG pH POC ABG pCO2 POC ABG pO2 Sodium Potassium Chloride Carbon Dioxide BUN 21 H Creatinine 3.8 H D Glucose 114 H POC Glucose Lactic Acid Calcium Phosphorus Magnesium TIBC Ferritin Total Bilirubin 8.30 H Direct Bilirubin AST 46 H Ammonia Lactate Dehydrogenase NT-Pro-B Natriuret Pep Total Protein Albumin Lipase Vitamin B12 Urine WBC (Auto) Urine Creatinine Ur Creatinine 24 Hour Digoxin Crossmatch See Detail 12/31/17 01/01/18 01/01/18 12:59 05:27 05:27 RBC 2.69 L Hgb 9.1 L Hct 25.1 L MCV MCH 34 H MCHC 36 H RDW 17.5 H Plt Count 64 L Lymph % (Auto) 12.5 L [place] % (Auto) 14.4 H Baso % (Auto) Lymph # 0.9 L [place] # 1.1 H Baso # Seg Neutrophils % 70.4 H Seg Neuts % (Manual) Lymphocytes % (Manual) Lymphocytes # (Manual) PT 19.7 H 22.1 H INR 1.57 H 1.81 H APTT Fibrinogen D-Dimer POC ABG pH POC ABG pCO2 POC ABG pO2 Sodium Potassium Chloride Carbon Dioxide BUN Creatinine Glucose POC Glucose Lactic Acid Calcium Phosphorus Magnesium TIBC Ferritin Total Bilirubin Direct Bilirubin AST Ammonia Lactate Dehydrogenase NT-Pro-B Natriuret Pep Total Protein Albumin Lipase Vitamin B12 Urine WBC (Auto) Urine Creatinine Ur Creatinine 24 Hour Digoxin Crossmatch 01/01/18 01/03/18 01/03/18 05:27 06:24 06:24 RBC 2.62 L Hgb 8.7 L Hct 25.6 L MCV 98 H MCH 33 H MCHC RDW 19.4 H Plt Count 55 L Lymph % (Auto) [place] % (Auto) 10.9 H Baso % (Auto) 2.7 H Lymph # 1.1 L [place] # 0.9 H Baso # 0.2 H Seg Neutrophils % Seg Neuts % (Manual) Lymphocytes % (Manual) Lymphocytes # (Manual) PT 24.1 H INR 2.01 H APTT Fibrinogen D-Dimer POC ABG pH POC ABG pCO2 POC ABG pO2 Sodium Potassium Chloride Carbon Dioxide BUN Creatinine 2.8 H Glucose POC Glucose Lactic Acid Calcium Phosphorus Magnesium TIBC Ferritin Total Bilirubin 9.20 H Direct Bilirubin AST 49 H Ammonia Lactate Dehydrogenase NT-Pro-B Natriuret Pep Total Protein Albumin 3.8 L Lipase Vitamin B12 Urine WBC (Auto) Urine Creatinine Ur Creatinine 24 Hour Digoxin Crossmatch 01/03/18 01/05/18 01/05/18 06:24 04:47 04:47 RBC 2.75 L Hgb 9.2 L Hct 27.3 L MCV 99 H MCH 34 H MCHC RDW 23.5 H Plt Count 55 L Lymph % (Auto) [place] % (Auto) 14.3 H Baso % (Auto) 2.3 H Lymph # [place] # 1.0 H Baso # 0.2 H Seg Neutrophils % Seg Neuts % (Manual) Lymphocytes % (Manual) Lymphocytes # (Manual) PT 24.3 H INR 2.04 H APTT Fibrinogen D-Dimer POC ABG pH POC ABG pCO2 POC ABG pO2 Sodium Potassium Chloride Carbon Dioxide BUN Creatinine Glucose POC Glucose Lactic Acid Calcium Phosphorus Magnesium TIBC Ferritin Total Bilirubin 9.00 H Direct Bilirubin 2.7 H AST 50 H Ammonia Lactate Dehydrogenase NT-Pro-B Natriuret Pep Total Protein Albumin 3.6 L Lipase Vitamin B12 Urine WBC (Auto) Urine Creatinine Ur Creatinine 24 Hour Digoxin Crossmatch 01/05/18 01/05/18 04:47 14:57 RBC Hgb Hct MCV MCH MCHC RDW Plt Count Lymph % (Auto) [place] % (Auto) Baso % (Auto) Lymph # [place] # Baso # Seg Neutrophils % Seg Neuts % (Manual) Lymphocytes % (Manual) Lymphocytes # (Manual) PT INR APTT Fibrinogen D-Dimer POC ABG pH POC ABG pCO2 POC ABG pO2 Sodium Potassium Chloride Carbon Dioxide BUN Creatinine 2.6 H Glucose 117 H POC Glucose Lactic Acid Calcium Phosphorus Magnesium TIBC Ferritin Total Bilirubin 9.50 H Direct Bilirubin AST 50 H Ammonia 75.0 H Lactate Dehydrogenase NT-Pro-B Natriuret Pep Total Protein Albumin 3.7 L Lipase Vitamin B12 Urine WBC (Auto) Urine Creatinine Ur Creatinine 24 Hour Digoxin Crossmatch Allied health notes reviewed: nursing
[2018-01-06 04:58] LABS: Albumin 3.5 g/dL (3.9-5); Calcium 9.8 mg/dL (8.4-10.2)
[2018-01-06 05:04] LABS: Hematocrit 27.7 % (35.5-45.6); Hemoglobin 9.2 gm/dl (11.8-15.2); Mean Corpuscular HGB Conc 33 % (32-34); Mean Corpuscular Hemoglobin 34 pg (28-32); Mean Corpuscular Volume 101 fl (84-94); Red Blood Count 2.75 M/mm3 (3.65-5.03)
[2018-01-06 05:09] LABS: Platelet Count 46 K/mm3 (140-440); Red Cell Distribution Width 25.1 % (13.2-15.2)
[2018-01-06 07:51] LABS: Band Neutrophils # (Manual) 0.4 K/mm3; Total Cells Counted 100
[2018-01-06 07:55] LABS: Acanthocytes 1+; Anisocytosis 1+; Hypochromasia Rare; Ovalocytes 1+; Spherocytes Few
[2018-01-06 07:58] LABS: Platelet Estimate Consistent w Auto
[2018-01-06] MEDS: THERAGRAN-M Tab PO SCH (09:56)
[2018-01-06] MEDS: PROTONIX FEEDTUBE SCH (09:56)
[2018-01-06] MEDS: XIFAXAN PO SCH ×2 (09:56→21:32)
[2018-01-06] MEDS: LOPRESSOR PO SCH ×2 (09:56→22:00)
[2018-01-06] MEDS: CEPHULAC PO SCH ×2 (09:56→21:32)
[2018-01-06] MEDS: PROAMATINE PO SCH ×3 (09:57→21:32)
--- NOTE | 2018-01-06 10:15 | Progress Note ---
Subjective Principal diagnosis: CARMEN on CKD; Acute Encephalopathy; Sepsis Syndrome; Anemia Interval history: Patient was seen today for follow-up on multiple renal related issues weak-appearing male resting in bed no acute distress HEENT: [place] dry Neck: Supple no thyromegaly no JVD Chest: Clear to auscultation anteriorly no crackles or wheezes Posteriorly breath sounds are diminished at the lung base Central venous catheter site unremarkable Heart: Regular rate and rhythm S1-S2 heard no S3-S4 Abdomen: Soft nontender dry skin and no organomegaly Dialysis in flanks Extremity: Less than 1+ edema dry skin no petechial rash Musculoskeletal: No joint effusion noted Assessment and plan: Acute kidney injury dialysis dependent Sunday patient is very fragile Patient cirrhosis of liver,Hepatic failure pending transfer to [place] for possible liver transplant, patient has been hypotensive currently on midodrine, he is high risk, this has been clearly explained to the Dialysis will be done as long as his blood pressure is stable, if it is consistently under 100 systolic dialysis may be put on hold Cirrhosis of the liver with ascites and portal hypertension GI bleed coagulopathy suggestive of end-stage liver disease currently being treated conservatively Would not remove fluid on hemodialysis due to hypotension, unless he is more stable He may require albumin support, during dialysis His overall prognosis is extremely poor for now even short-term outpatient dialysis was arranged at [facility] however patient in my opinion is very fragile and frail for outpatient dialysis unit He may be considered for long-term acute care hospital High risk patient due to multiple comorbidities and also, as he does have hypoalbuminemia anasarca-like picture, nonsustained ventricular tachycardia Objective - Vital Signs Vital signs: Vital Signs - 12hr 01/05/18 01/06/18 01/06/18 23:59 04:19 07:48 Temperature 98.4 F 98.0 F 97.9 F Pulse Rate 61 62 67 Respiratory 18 Rate Blood Pressure 94/61 90/53 107/59 O2 Sat by Pulse 96 96 94 Oximetry 01/06/18 07:54 Temperature Pulse Rate 66 Respiratory Rate Blood Pressure O2 Sat by Pulse Oximetry - Lab 01/06/18 02:35 01/06/18 02:35 Most recent lab results Calcium 9.8 mg/dL (8.4-10.2) 01/06/18 02:35 Phosphorus 2.40 mg/dL (2.5-4.5) L 12/26/17 05:59 Magnesium 1.70 mg/dL (1.7-2.3) 01/03/18 06:24 Urine Creatinine 122.5 mg/dL (0.1-20.0) H 12/14/17 Unknown
--- NOTE | 2018-01-06 10:44 | Progress Note ---
Assessment and Plan - Patient Problems (1) Acute hepatic encephalopathy Current Visit: Yes Status: Acute Plan to address problem: see orders. continue with lactulose, recheck ammonia level. continue same. supportive. (2) Anemia Current Visit: Yes Status: Acute Plan to address problem: see orders. Replacement transfusion, if hgb less than 7.0 same as above. see notes above. same as above, stable. see notes above. stable so far. (3) Renal failure Current Visit: Yes Status: Acute Plan to address problem: follow renal service. same as above. (4) Liver failure Current Visit: Yes Status: Acute Plan to address problem: Hepato-renal syndrome, continue with HD. (5) Coagulation disorder Current Visit: Yes Status: Acute Plan to address problem: see notes. Subjective Date of service: 01/06/18 Principal diagnosis: CARMEN on CKD; Acute Encephalopathy; Sepsis Syndrome; Anemia Interval history: Patient seen, restingm labs/notes reviewed. agree with management so far.labs showing consumptive coagulopathy. Patient seen, resting in bed, records/labs reviewed.PLT dropped some.Still no active bleeding. Patient seen/examined, records/labs / notes reviewed, hgb low at 6.9, will rec replacement transfusion,with HD tomorrow if planned to proceed with HD. Patient seen, resting in bed, labs/records reviewed, Hgb still low, transfusion written for today. Patient seen, resting in bed, labs reviewed, plt 57,000, rectal bleeding resolved, will continue to monitor patient/labs with you, and intervene with replacement transfusion, when needed. Patient seen, resting in bed, NAD, records reviewed. Patient seen, resting in bed, labs/records reviewed, no new issues, the latest plt fair, no any sign of bleeding. Patient seen, resting in bed, records reviewed, PLT 57,000, no bleeding. Patient seen, resting in bed, labs reviewed, hgb dropped drastically, due to rectal bleed.He is s/p blood transfusion. he is expected to continue to drop his hgb, as long as he continues to bleed. Will re check labs in am. Thrombocytopenia at above 20,000. will continue to monitor. Patient seen, resting in bed, labs reviewed, ,he will need some PLT+ FFP, especially if there is any plans for any procedure, otherwise, can watch if any active bleeding, or plt 20,000 or less. patient seen/examined, resting in bed, labs reviewed, s/p GI scope, and blood transfusion, Plt replacement ,to follow. patient seen, resting in bed, labs, reviewed, plt 39,000, replacement not given yesterday? Patient seen/examined, at the HD center, resting in bed, was able ro discuss his case with him, regarding prognosis, and options, as i had d/w his yesterday. he wants to talk with his first.. his PLT came up following transfusion, hgb at Fair level at this time,Will see how much this will hold in the next few days.He is really not a good candidate for any transplant ,given, his condition, and co morbid issues at this time. Prognosis is quite poor for Hepato-renal syndrome, let alone complicated by thrombocytopenia/anemia, and double vital organ failure.He has no real reserve as far as these organs are concerned.You may want to have a vince family talk with him, his , and doctors Patient resting in bed, labs reviewed, and fairly stable, slight drop in hgb, and plt, but overall stable in the last 24hrs.notes reviewed. Patient seen/resting in bed, labs reviewed, d/w primary team. Hgb dropped, but plt holding steady since replacement. Patient resting in bed, labs reviewed, rec stays the same.Replacement transfusion prn. i have spoken to patient/, and sister at [facility]. Patient seen/examined, resting in bed, c/o not eating much due to lack of appetite.Rec appetite enhancer. Patient seen, resting in bed, labs reviewed, and remain fair. Patient seen, resting in bed, labs, reviewed, INR 2+, PLT55,000.Will give some FFP today, and perhaps on sunday, to see if he can get his procedure done. Patient seen, resting in bed, labs reviewed, INR did not improve, following FFP yesterday , if at it was given. patient seen, resting in bed, labs reviewed, PLT, 46,000, no bleeding. If any procedure is intended, can give FFP+_ PLT.,or if any bleeding. Objective - Constitutional Vitals: Vital Signs - 12hr 01/05/18 01/06/18 01/06/18 23:59 04:19 07:48 Temperature 98.4 F 98.0 F 97.9 F Pulse Rate 61 62 67 Respiratory 18 18 18 Rate Blood Pressure 94/61 90/53 107/59 O2 Sat by Pulse 96 96 94 Oximetry 01/06/18 07:54 Temperature Pulse Rate 66 Respiratory Rate Blood Pressure O2 Sat by Pulse Oximetry General appearance: Present: no acute distress - EENT Eyes: PERRL, EOM intact ENT: hearing intact, clear oral mucosa Ears: bilateral: normal - Neck Neck: supple, normal ROM - Respiratory Respiratory effort: normal Respiratory: bilateral: CTA - Breasts Breasts: deferred - Cardiovascular Rhythm: regular Heart Sounds: Present: S1 & S2. Absent: gallop, rub Extremities: pulses intact, No edema, normal color, Full ROM - Gastrointestinal General gastrointestinal: Present: soft, non-tender, non-distended, normal bowel sounds Rectal Exam: deferred - Genitourinary Male genitourinary: deferred - Integumentary Integumentary: clear, warm, dry - Musculoskeletal Musculoskeletal: 1, strength equal bilaterally - Neurologic Neurologic: moves all extremities - Psychiatric Psychiatric: memory intact, appropriate mood/affect, intact judgment & insight - Labs CBC & Chem 7: 01/06/18 02:35 01/06/18 02:35 Labs: Abnormal lab results 01/05/18 01/06/18 01/06/18 Range/Units 14:57 02:35 02:35 RBC 2.75 L (3.65-5.03) M/mm3 Hgb 9.2 L (11.8-15.2) gm/dl Hct 27.7 L (35.5-45.6) % MCV 101 H (84-94) fl MCH 34 H (28-32) pg RDW 25.1 H (13.2-15.2) % Plt Count 46 L (140-440) K/mm3 Lymphocytes % (Manual) 13.0 L (13.4-35.0) % Eosinophils % (Manual) 7.0 H (0.0-4.3) % Basophils % (Manual) 2.0 H (0.0-1.8) % Lymphocytes # (Manual) 1.0 L (1.2-5.4) K/mm3 Eosinophils # (Manual) 0.6 H (0.0-0.4) K/mm3 Basophils # (Manual) 0.2 H (0.0-0.1) K/mm3 Chloride 96.3 L (98-107) mmol/L Carbon Dioxide 21 L (22-30) mmol/L BUN 23 H (9-20) mg/dL Creatinine 2.9 H (0.8-1.5) mg/dL Total Bilirubin 9.80 H (0.1-1.2) mg/dL AST 65 H (5-40) units/L Ammonia 75.0 H (25-60) umol/L Albumin 3.5 L (3.9-5) g/dL
[2018-01-06] MEDS: PERCOCET 5/325 PO PRN (12:03)
--- NOTE | 2018-01-06 13:36 | Progress Note ---
Assessment and Plan Cardiac status is stable, we'll continue to follow on an intermittent basis. Subjective Date of service: 01/06/18 Principal diagnosis: CARMEN on CKD; Acute Encephalopathy; Sepsis Syndrome; Anemia Interval history: Patient is comfortable, no cardiac complaints, no acute distress. Objective Vital Signs Temp Pulse Resp BP Pulse Ox 01/06/18 07:54 66 01/06/18 07:48 97.9 F 67 18 107/59 94 01/06/18 04:19 98.0 F 62 18 90/53 96 01/05/18 23:59 98.4 F 61 18 94/61 96 01/05/18 22:00 60 01/05/18 21:59 97 01/05/18 19:20 98.2 F 18 100/67 01/05/18 16:30 97.6 F 68 18 100/64 95 - Physical Examination General: No Apparent Distress HEENT: Positive: PERRL Neck: Positive: neck supple. Negative: JVD/HJR Cardiac: Positive: Reg Rate and Rhythm Lungs: Positive: Decreased Breath Sounds Neuro: Positive: Weakness Abdomen: Positive: Soft, Active Bowel Sounds Skin: Positive: Clear Extremities: Absent: edema - Labs and Meds Cardiac Enzymes 01/06/18 Range/Units 02:35 AST 65 H (5-40) units/L CBC 01/06/18 Range/Units 02:35 WBC 7.9 (4.5-11.0) K/mm3 RBC 2.75 L (3.65-5.03) M/mm3 Hgb 9.2 L (11.8-15.2) gm/dl Hct 27.7 L (35.5-45.6) % Plt Count 46 L (140-440) K/mm3 Comprehensive Metabolic Panel 01/06/18 Range/Units 02:35 Sodium 140 (137-145) mmol/L Potassium 4.8 (3.6-5.0) mmol/L Chloride 96.3 L (98-107) mmol/L Carbon Dioxide 21 L (22-30) mmol/L BUN 23 H (9-20) mg/dL Creatinine 2.9 H (0.8-1.5) mg/dL Glucose 96 (75-100) mg/dL Calcium 9.8 (8.4-10.2) mg/dL AST 65 H (5-40) units/L ALT 23 (7-56) units/L Alkaline Phosphatase 68 (35-129) units/L Total Protein 7.6 (6.3-8.2) g/dL Albumin 3.5 L (3.9-5) g/dL - Allied health notes Allied health notes reviewed: nursing
--- NOTE | 2018-01-06 14:13 | Progress Note ---
Assessment and Plan Patient sleeping at this time. No acute respiratory distress.O2 saturation 94% on 2 litres O2.Patient has paracentesis recently. No malignant cells reported. Patients INR still high.Patient did not have thoracentesis yet. - Patient Problems (1) Bilateral pleural effusion Current Visit: No Status: Acute Plan to address problem: Patient scheduled for thoracentesis (2) Hypovolemic shock Current Visit: Yes Status: Acute Plan to address problem: Improved .Blood pressure 107/59. Patient alert, awake.Patient has no symptoms of hypotension now. (3) CARMEN (acute kidney injury) Current Visit: Yes Status: Acute Plan to address problem: Management as per nephrology. (4) Acute hepatic encephalopathy Current Visit: Yes Status: Acute Plan to address problem: Management as per primary care. (5) Alcoholic cirrhosis of liver with ascites Current Visit: Yes Status: Acute Plan to address problem: Management as per primary care. (6) Anemia Current Visit: Yes Status: Acute Plan to address problem: Management as per primary care. Subjective Date of service: 01/06/18 Principal diagnosis: CARMEN on CKD; Acute Encephalopathy; Sepsis Syndrome; Anemia Interval history: Patient sleeping at this time. No acute respiratory distress.O2 saturation 94% on 2 litres O2.Patient has paracentesis recently. No malignant cells reported. Patient INR still high. Patient did not have thoracentesis yet. Objective Vital Signs - 12hr 01/06/18 01/06/18 01/06/18 04:19 07:48 07:54 Temperature 98.0 F 97.9 F Pulse Rate 62 67 66 Respiratory 18 18 Rate Blood Pressure 90/53 107/59 O2 Sat by Pulse 96 94 Oximetry Constitutional: no acute distress, asleep, other Eyes: non-icteric ENT: oropharynx moist, other (mallampati 2) Neck: supple, no lymphadenopathy, no JVD, other (no thyromegaly) Effort: normal Ascultation: Bilateral: diminished breath sounds (bases), rhonchi (scant) Percussion: Right: dull (base), Bilateral: not dull Cardiovascular: regular rate and rhythm, other (S1,S2, no murmurms, gallops or rubs) Gastrointestinal: normoactive bowel sounds, soft, non-tender, other (distended) Integumentary: rash Extremities: no cyanosis, no edema, pulses normal, no ischemia or petechiae, cool Neurologic: non-focal exam, pupils equal and round, motor strength normal and ( weak), other (alert, awake) Psychiatric: other (normal affect, confusion) CBC and BMP: 01/06/18 02:35 01/06/18 02:35 ABG, PT/INR, D-dimer: ABG POC ABG pH 7.452 (7.35-7.45) H 12/12/17 09:13 POC ABG pCO2 22.2 (35-45) L 12/12/17 09:13 POC ABG pO2 75 (80-105) L 12/12/17 09:13 POC ABG HCO3 15.5 12/12/17 09:13 POC ABG Total CO2 16 12/12/17 09:13 POC ABG O2 Sat 96 12/12/17 09:13 PT/INR, D-dimer PT 24.3 Sec. (12.2-14.9) H 01/05/18 04:47 INR 2.04 (0.87-1.13) H 01/05/18 04:47 D-Dimer 1215.06 ng/mlDDU (0-234) H 12/12/17 19:50 Abnormal lab findings: Abnormal Labs 12/10/17 12/10/17 12/10/17 13:14 13:14 23:05 RBC 2.31 L Hgb 7.3 L Hct 21.5 L MCV MCH MCHC RDW 17.7 H Plt Count 61 L Lymph % (Auto) [place] % (Auto) Baso % (Auto) Lymph # [place] # Baso # Seg Neutrophils % Seg Neuts % (Manual) 81.0 H Lymphocytes % (Manual) 11.0 L Eosinophils % (Manual) Basophils % (Manual) Lymphocytes # (Manual) 0.6 L Eosinophils # (Manual) Basophils # (Manual) PT INR APTT Fibrinogen D-Dimer POC ABG pH POC ABG pCO2 POC ABG pO2 Sodium 136 L Potassium 5.2 H Chloride Carbon Dioxide 15 L BUN 47 H Creatinine 5.2 H Glucose 127 H POC Glucose Lactic Acid Calcium Phosphorus Magnesium TIBC Ferritin Total Bilirubin 3.50 H Direct Bilirubin AST 71 H Ammonia Lactate Dehydrogenase NT-Pro-B Natriuret Pep Total Protein Albumin 2.6 L Lipase Vitamin B12 Urine WBC (Auto) 10.0 H Urine Creatinine Ur Creatinine 24 Hour Digoxin Crossmatch 12/10/17 12/10/17 12/10/17 23:14 23:14 23:14 RBC Hgb Hct MCV MCH MCHC RDW Plt Count Lymph % (Auto) [place] % (Auto) Baso % (Auto) Lymph # [place] # Baso # Seg Neutrophils % Seg Neuts % (Manual) Lymphocytes % (Manual) Eosinophils % (Manual) Basophils % (Manual) Lymphocytes # (Manual) Eosinophils # (Manual) Basophils # (Manual) PT INR APTT Fibrinogen D-Dimer POC ABG pH POC ABG pCO2 POC ABG pO2 Sodium Potassium Chloride Carbon Dioxide BUN Creatinine Glucose POC Glucose Lactic Acid 2.40 H* Calcium Phosphorus Magnesium TIBC Ferritin Total Bilirubin Direct Bilirubin AST Ammonia 134.0 H Lactate Dehydrogenase NT-Pro-B Natriuret Pep 9558 H Total Protein Albumin Lipase Vitamin B12 Urine WBC (Auto) Urine Creatinine Ur Creatinine 24 Hour Digoxin Crossmatch 12/10/17 12/11/17 12/11/17 23:14 00:29 03:33 RBC Hgb Hct MCV MCH MCHC RDW Plt Count Lymph % (Auto) [place] % (Auto) Baso % (Auto) Lymph # [place] # Baso # Seg Neutrophils % Seg Neuts % (Manual) Lymphocytes % (Manual) Eosinophils % (Manual) Basophils % (Manual) Lymphocytes # (Manual) Eosinophils # (Manual) Basophils # (Manual) PT INR APTT Fibrinogen D-Dimer POC ABG pH POC ABG pCO2 POC ABG pO2 Sodium Potassium Chloride Carbon Dioxide BUN Creatinine Glucose POC Glucose Lactic Acid 2.80 H* 3.00 H* Calcium Phosphorus Magnesium TIBC Ferritin Total Bilirubin Direct Bilirubin AST Ammonia Lactate Dehydrogenase NT-Pro-B Natriuret Pep Total Protein Albumin Lipase 7 L Vitamin B12 Urine WBC (Auto) Urine Creatinine Ur Creatinine 24 Hour Digoxin Crossmatch 12/11/17 12/11/17 12/11/17 04:08 04:34 04:34 RBC Hgb Hct MCV MCH MCHC RDW Plt Count Lymph % (Auto) [place] % (Auto) Baso % (Auto) Lymph # [place] # Baso # Seg Neutrophils % Seg Neuts % (Manual) Lymphocytes % (Manual) Eosinophils % (Manual) Basophils % (Manual) Lymphocytes # (Manual) Eosinophils # (Manual) Basophils # (Manual) PT 19.1 H INR 1.51 H APTT 45.7 H Fibrinogen D-Dimer POC ABG pH POC ABG pCO2 POC ABG pO2 Sodium Potassium Chloride Carbon Dioxide BUN Creatinine Glucose POC Glucose 113 H Lactic Acid 3.10 H* Calcium Phosphorus Magnesium TIBC Ferritin Total Bilirubin Direct Bilirubin AST Ammonia Lactate Dehydrogenase NT-Pro-B Natriuret Pep Total Protein Albumin Lipase Vitamin B12 Urine WBC (Auto) Urine Creatinine Ur Creatinine 24 Hour Digoxin Crossmatch 12/11/17 12/11/17 12/11/17 06:46 07:26 09:42 RBC Hgb Hct MCV MCH MCHC RDW Plt Count Lymph % (Auto) [place] % (Auto) Baso % (Auto) Lymph # [place] # Baso # Seg Neutrophils % Seg Neuts % (Manual) Lymphocytes % (Manual) Eosinophils % (Manual) Basophils % (Manual) Lymphocytes # (Manual) Eosinophils # (Manual) Basophils # (Manual) PT INR APTT Fibrinogen D-Dimer POC ABG pH POC ABG pCO2 POC ABG pO2 Sodium Potassium Chloride Carbon Dioxide BUN Creatinine Glucose POC Glucose Lactic Acid 2.70 H* 2.80 H* 2.90 H* Calcium Phosphorus Magnesium TIBC Ferritin Total Bilirubin Direct Bilirubin AST Ammonia Lactate Dehydrogenase NT-Pro-B Natriuret Pep Total Protein Albumin Lipase Vitamin B12 Urine WBC (Auto) Urine Creatinine Ur Creatinine 24 Hour Digoxin Crossmatch 12/11/17 12/11/17 12/11/17 13:12 14:06 23:14 RBC Hgb Hct MCV MCH MCHC RDW Plt Count Lymph % (Auto) [place] % (Auto) Baso % (Auto) Lymph # [place] # Baso # Seg Neutrophils % Seg Neuts % (Manual) Lymphocytes % (Manual) Eosinophils % (Manual) Basophils % (Manual) Lymphocytes # (Manual) Eosinophils # (Manual) Basophils # (Manual) PT INR APTT Fibrinogen D-Dimer POC ABG pH POC ABG pCO2 POC ABG pO2 Sodium Potassium Chloride Carbon Dioxide BUN Creatinine Glucose POC Glucose Lactic Acid 3.10 H* 3.10 H* 3.70 H* Calcium Phosphorus Magnesium TIBC Ferritin Total Bilirubin Direct Bilirubin AST Ammonia Lactate Dehydrogenase NT-Pro-B Natriuret Pep Total Protein Albumin Lipase Vitamin B12 Urine WBC (Auto) Urine Creatinine Ur Creatinine 24 Hour Digoxin Crossmatch 12/11/17 12/12/17 12/12/17 23:23 03:41 03:41 RBC 2.17 L Hgb 7.0 L Hct 19.9 L* MCV MCH 33 H MCHC 35 H RDW 17.7 H Plt Count 62 L Lymph % (Auto) [place] % (Auto) Baso % (Auto) Lymph # [place] # Baso # Seg Neutrophils % Seg Neuts % (Manual) 91.0 H Lymphocytes % (Manual) 3.0 L Eosinophils % (Manual) Basophils % (Manual) Lymphocytes # (Manual) 0.2 L Eosinophils # (Manual) Basophils # (Manual) PT INR APTT Fibrinogen D-Dimer POC ABG pH POC ABG pCO2 POC ABG pO2 Sodium Potassium 5.4 H Chloride Carbon Dioxide 12 L BUN 47 H Creatinine 4.5 H Glucose 103 H POC Glucose Lactic Acid Calcium 8.0 L Phosphorus Magnesium TIBC Ferritin Total Bilirubin 3.60 H Direct Bilirubin AST 58 H Ammonia Lactate Dehydrogenase NT-Pro-B Natriuret Pep Total Protein 5.9 L Albumin 2.5 L Lipase Vitamin B12 Urine WBC (Auto) Urine Creatinine Ur Creatinine 24 Hour Digoxin Crossmatch See Detail 12/12/17 12/12/17 12/12/17 07:00 09:13 17:55 RBC 2.06 L Hgb 6.6 L Hct 18.6 L* MCV MCH MCHC 36 H RDW 17.8 H Plt Count 77 L Lymph % (Auto) [place] % (Auto) Baso % (Auto) Lymph # [place] # Baso # Seg Neutrophils % Seg Neuts % (Manual) Lymphocytes % (Manual) Eosinophils % (Manual) Basophils % (Manual) Lymphocytes # (Manual) Eosinophils # (Manual) Basophils # (Manual) PT INR APTT Fibrinogen D-Dimer POC ABG pH 7.452 H POC ABG pCO2 22.2 L POC ABG pO2 75 L Sodium Potassium Chloride Carbon Dioxide BUN Creatinine Glucose POC Glucose 119 H Lactic Acid Calcium Phosphorus Magnesium TIBC Ferritin Total Bilirubin Direct Bilirubin AST Ammonia Lactate Dehydrogenase NT-Pro-B Natriuret Pep Total Protein Albumin Lipase Vitamin B12 Urine WBC (Auto) Urine Creatinine Ur Creatinine 24 Hour Digoxin Crossmatch 12/12/17 12/12/17 12/12/17 19:50 19:50 19:50 RBC 2.40 L Hgb 7.8 L Hct 21.3 L MCV MCH 33 H MCHC 37 H RDW 16.1 H Plt Count 99 L Lymph % (Auto) [place] % (Auto) Baso % (Auto) Lymph # [place] # Baso # Seg Neutrophils % Seg Neuts % (Manual) 87.0 H Lymphocytes % (Manual) 5.0 L Eosinophils % (Manual) Basophils % (Manual) Lymphocytes # (Manual) 0.3 L Eosinophils # (Manual) Basophils # (Manual) PT 21.9 H INR 1.79 H APTT 41.5 H Fibrinogen 128 L D-Dimer 1215.06 H POC ABG pH POC ABG pCO2 POC ABG pO2 Sodium Potassium Chloride Carbon Dioxide BUN Creatinine Glucose POC Glucose Lactic Acid Calcium Phosphorus Magnesium TIBC Ferritin Total Bilirubin 4.10 H Direct Bilirubin 1.6 H AST Ammonia Lactate Dehydrogenase NT-Pro-B Natriuret Pep Total Protein Albumin Lipase Vitamin B12 Urine WBC (Auto) Urine Creatinine Ur Creatinine 24 Hour Digoxin Crossmatch 12/12/17 12/12/17 12/12/17 19:50 19:50 23:46 RBC Hgb Hct MCV MCH MCHC RDW Plt Count Lymph % (Auto) [place] % (Auto) Baso % (Auto) Lymph # [place] # Baso # Seg Neutrophils % Seg Neuts % (Manual) Lymphocytes % (Manual) Eosinophils % (Manual) Basophils % (Manual) Lymphocytes # (Manual) Eosinophils # (Manual) Basophils # (Manual) PT INR APTT Fibrinogen D-Dimer POC ABG pH POC ABG pCO2 POC ABG pO2 Sodium Potassium Chloride Carbon Dioxide BUN Creatinine Glucose POC Glucose 110 H Lactic Acid Calcium Phosphorus Magnesium TIBC Ferritin Total Bilirubin Direct Bilirubin AST Ammonia Lactate Dehydrogenase 213 H NT-Pro-B Natriuret Pep Total Protein Albumin Lipase Vitamin B12 1465 H Urine WBC (Auto) Urine Creatinine Ur Creatinine 24 Hour Digoxin Crossmatch 12/13/17 12/13/17 12/13/17 04:00 04:00 05:12 RBC 2.32 L Hgb 7.4 L Hct 20.8 L MCV MCH MCHC 36 H RDW 16.1 H Plt Count 134 L Lymph % (Auto) 13.1 L [place] % (Auto) 7.9 H Baso % (Auto) Lymph # 0.8 L [place] # Baso # Seg Neutrophils % 76.3 H Seg Neuts % (Manual) Lymphocytes % (Manual) Eosinophils % (Manual) Basophils % (Manual) Lymphocytes # (Manual) Eosinophils # (Manual) Basophils # (Manual) PT INR APTT Fibrinogen D-Dimer POC ABG pH POC ABG pCO2 POC ABG pO2 Sodium Potassium Chloride Carbon Dioxide 21 L D BUN 48 H Creatinine 4.6 H Glucose 104 H POC Glucose 134 H Lactic Acid Calcium 8.1 L Phosphorus Magnesium TIBC Ferritin Total Bilirubin 4.70 H Direct Bilirubin AST 43 H Ammonia Lactate Dehydrogenase NT-Pro-B Natriuret Pep Total Protein 5.8 L Albumin 3.1 L Lipase Vitamin B12 Urine WBC (Auto) Urine Creatinine Ur Creatinine 24 Hour Digoxin Crossmatch 12/13/17 12/13/17 12/13/17 08:45 12:25 14:03 RBC Hgb Hct MCV MCH MCHC RDW Plt Count Lymph % (Auto) [place] % (Auto) Baso % (Auto) Lymph # [place] # Baso # Seg Neutrophils % Seg Neuts % (Manual) Lymphocytes % (Manual) Eosinophils % (Manual) Basophils % (Manual) Lymphocytes # (Manual) Eosinophils # (Manual) Basophils # (Manual) PT 20.5 H INR 1.65 H APTT Fibrinogen D-Dimer POC ABG pH POC ABG pCO2 POC ABG pO2 Sodium Potassium Chloride Carbon Dioxide BUN Creatinine Glucose POC Glucose 112 H Lactic Acid 3.70 H* Calcium Phosphorus Magnesium TIBC Ferritin Total Bilirubin Direct Bilirubin AST Ammonia Lactate Dehydrogenase NT-Pro-B Natriuret Pep Total Protein Albumin Lipase Vitamin B12 Urine WBC (Auto) Urine Creatinine Ur Creatinine 24 Hour Digoxin Crossmatch 12/13/17 12/13/17 12/13/17 14:03 18:52 21:09 RBC Hgb Hct MCV MCH MCHC RDW Plt Count Lymph % (Auto) [place] % (Auto) Baso % (Auto) Lymph # [place] # Baso # Seg Neutrophils % Seg Neuts % (Manual) Lymphocytes % (Manual) Eosinophils % (Manual) Basophils % (Manual) Lymphocytes # (Manual) Eosinophils # (Manual) Basophils # (Manual) PT INR APTT Fibrinogen D-Dimer POC ABG pH POC ABG pCO2 POC ABG pO2 Sodium Potassium Chloride Carbon Dioxide BUN Creatinine Glucose POC Glucose 110 H Lactic Acid 4.00 H* Calcium Phosphorus Magnesium TIBC Ferritin Total Bilirubin Direct Bilirubin AST Ammonia 87.0 H Lactate Dehydrogenase NT-Pro-B Natriuret Pep Total Protein Albumin Lipase Vitamin B12 Urine WBC (Auto) Urine Creatinine Ur Creatinine 24 Hour Digoxin Crossmatch 12/14/17 12/14/17 12/14/17 00:25 03:30 03:30 RBC 2.29 L Hgb 7.3 L Hct 20.7 L MCV MCH MCHC 35 H RDW 16.2 H Plt Count 84 L Lymph % (Auto) 12.8 L [place] % (Auto) 8.3 H Baso % (Auto) Lymph # 0.6 L [place] # Baso # Seg Neutrophils % 77.2 H Seg Neuts % (Manual) Lymphocytes % (Manual) Eosinophils % (Manual) Basophils % (Manual) Lymphocytes # (Manual) Eosinophils # (Manual) Basophils # (Manual) PT INR APTT Fibrinogen D-Dimer POC ABG pH POC ABG pCO2 POC ABG pO2 Sodium Potassium Chloride 96.1 L Carbon Dioxide BUN 48 H Creatinine 4.6 H Glucose 125 H POC Glucose 131 H Lactic Acid Calcium 7.9 L Phosphorus Magnesium TIBC Ferritin Total Bilirubin 4.70 H Direct Bilirubin AST 45 H Ammonia Lactate Dehydrogenase NT-Pro-B Natriuret Pep Total Protein 6.1 L Albumin 3.4 L Lipase Vitamin B12 Urine WBC (Auto) Urine Creatinine Ur Creatinine 24 Hour Digoxin Crossmatch 12/14/17 12/14/17 12/14/17 05:31 12:26 12:55 RBC Hgb Hct MCV MCH MCHC RDW Plt Count Lymph % (Auto) [place] % (Auto) Baso % (Auto) Lymph # [place] # Baso # Seg Neutrophils % Seg Neuts % (Manual) Lymphocytes % (Manual) Eosinophils % (Manual) Basophils % (Manual) Lymphocytes # (Manual) Eosinophils # (Manual) Basophils # (Manual) PT INR APTT Fibrinogen D-Dimer POC ABG pH POC ABG pCO2 POC ABG pO2 Sodium Potassium Chloride Carbon Dioxide BUN Creatinine Glucose POC Glucose 125 H 117 H Lactic Acid 3.40 H* Calcium Phosphorus Magnesium TIBC Ferritin Total Bilirubin Direct Bilirubin AST Ammonia Lactate Dehydrogenase NT-Pro-B Natriuret Pep Total Protein Albumin Lipase Vitamin B12 Urine WBC (Auto) Urine Creatinine Ur Creatinine 24 Hour Digoxin Crossmatch 12/14/17 12/14/17 12/14/17 15:26 17:26 18:07 RBC Hgb Hct MCV MCH MCHC RDW Plt Count Lymph % (Auto) [place] % (Auto) Baso % (Auto) Lymph # [place] # Baso # Seg Neutrophils % Seg Neuts % (Manual) Lymphocytes % (Manual) Eosinophils % (Manual) Basophils % (Manual) Lymphocytes # (Manual) Eosinophils # (Manual) Basophils # (Manual) PT INR APTT Fibrinogen D-Dimer POC ABG pH POC ABG pCO2 POC ABG pO2 Sodium Potassium Chloride Carbon Dioxide BUN Creatinine Glucose POC Glucose 143 H Lactic Acid 4.00 H* 3.90 H* Calcium Phosphorus Magnesium TIBC Ferritin Total Bilirubin Direct Bilirubin AST Ammonia Lactate Dehydrogenase NT-Pro-B Natriuret Pep Total Protein Albumin Lipase Vitamin B12 Urine WBC (Auto) Urine Creatinine Ur Creatinine 24 Hour Digoxin Crossmatch 12/14/17 12/15/17 12/15/17 Unknown 00:08 04:51 RBC 2.27 L Hgb 7.3 L Hct 20.7 L MCV MCH MCHC 35 H RDW 16.1 H Plt Count 92 L Lymph % (Auto) 12.5 L [place] % (Auto) 10.4 H Baso % (Auto) Lymph # 0.6 L [place] # Baso # Seg Neutrophils % 74.7 H Seg Neuts % (Manual) Lymphocytes % (Manual) Eosinophils % (Manual) Basophils % (Manual) Lymphocytes # (Manual) Eosinophils # (Manual) Basophils # (Manual) PT INR APTT Fibrinogen D-Dimer POC ABG pH POC ABG pCO2 POC ABG pO2 Sodium Potassium Chloride Carbon Dioxide BUN Creatinine Glucose POC Glucose 124 H Lactic Acid Calcium Phosphorus Magnesium TIBC Ferritin Total Bilirubin Direct Bilirubin AST Ammonia Lactate Dehydrogenase NT-Pro-B Natriuret Pep Total Protein Albumin Lipase Vitamin B12 Urine WBC (Auto) Urine Creatinine 122.5 H Ur Creatinine 24 Hour 0.3 L Digoxin Crossmatch 12/15/17 12/15/17 12/15/17 04:51 04:51 05:56 RBC Hgb Hct MCV MCH MCHC RDW Plt Count Lymph % (Auto) [place] % (Auto) Baso % (Auto) Lymph # [place] # Baso # Seg Neutrophils % Seg Neuts % (Manual) Lymphocytes % (Manual) Eosinophils % (Manual) Basophils % (Manual) Lymphocytes # (Manual) Eosinophils # (Manual) Basophils # (Manual) PT INR APTT Fibrinogen D-Dimer POC ABG pH POC ABG pCO2 POC ABG pO2 Sodium Potassium 3.5 L Chloride 92.6 L Carbon Dioxide BUN 50 H Creatinine 4.8 H Glucose 141 H POC Glucose 143 H Lactic Acid Calcium 7.9 L Phosphorus Magnesium TIBC Ferritin Total Bilirubin 3.60 H Direct Bilirubin AST 44 H Ammonia 24.0 L Lactate Dehydrogenase NT-Pro-B Natriuret Pep Total Protein 6.1 L Albumin 3.8 L Lipase Vitamin B12 Urine WBC (Auto) Urine Creatinine Ur Creatinine 24 Hour Digoxin Crossmatch 12/15/17 12/15/1718 12:17 23:10 07:04 RBC Hgb Hct MCV MCH MCHC RDW Plt Count Lymph % (Auto) [place] % (Auto) Baso % (Auto) Lymph # [place] # Baso # Seg Neutrophils % Seg Neuts % (Manual) Lymphocytes % (Manual) Eosinophils % (Manual) Basophils % (Manual) Lymphocytes # (Manual) Eosinophils # (Manual) Basophils # (Manual) PT INR APTT Fibrinogen D-Dimer POC ABG pH POC ABG pCO2 POC ABG pO2 Sodium Potassium Chloride Carbon Dioxide BUN Creatinine Glucose POC Glucose 127 H 157 H 147 H Lactic Acid Calcium Phosphorus Magnesium TIBC Ferritin Total Bilirubin Direct Bilirubin AST Ammonia Lactate Dehydrogenase NT-Pro-B Natriuret Pep Total Protein Albumin Lipase Vitamin B12 Urine WBC (Auto) Urine Creatinine Ur Creatinine 24 Hour Digoxin Crossmatch 12/16/17 12/16/17 12/16/17 11:35 12:37 12:37 RBC 2.21 L Hgb 6.9 L Hct 20.2 L MCV MCH MCHC RDW 16.2 H Plt Count 50 L Lymph % (Auto) [place] % (Auto) 9.7 H Baso % (Auto) Lymph # 0.7 L [place] # Baso # Seg Neutrophils % 73.1 H Seg Neuts % (Manual) Lymphocytes % (Manual) Eosinophils % (Manual) Basophils % (Manual) Lymphocytes # (Manual) Eosinophils # (Manual) Basophils # (Manual) PT INR APTT Fibrinogen D-Dimer POC ABG pH POC ABG pCO2 POC ABG pO2 Sodium Potassium Chloride 88.2 L Carbon Dioxide BUN 52 H Creatinine 5.5 H Glucose 107 H POC Glucose 134 H Lactic Acid Calcium 7.8 L Phosphorus Magnesium TIBC Ferritin Total Bilirubin 2.60 H Direct Bilirubin AST 49 H Ammonia Lactate Dehydrogenase NT-Pro-B Natriuret Pep Total Protein Albumin 3.6 L Lipase Vitamin B12 Urine WBC (Auto) Urine Creatinine Ur Creatinine 24 Hour Digoxin Crossmatch 12/16/17 12/16/17 12/16/17 18:06 20:45 23:34 RBC Hgb Hct MCV MCH MCHC RDW Plt Count Lymph % (Auto) [place] % (Auto) Baso % (Auto) Lymph # [place] # Baso # Seg Neutrophils % Seg Neuts % (Manual) Lymphocytes % (Manual) Eosinophils % (Manual) Basophils % (Manual) Lymphocytes # (Manual) Eosinophils # (Manual) Basophils # (Manual) PT INR APTT Fibrinogen D-Dimer POC ABG pH POC ABG pCO2 POC ABG pO2 Sodium Potassium Chloride Carbon Dioxide BUN Creatinine Glucose POC Glucose 133 H 139 H Lactic Acid Calcium Phosphorus Magnesium TIBC Ferritin Total Bilirubin Direct Bilirubin AST Ammonia Lactate Dehydrogenase NT-Pro-B Natriuret Pep Total Protein Albumin Lipase Vitamin B12 Urine WBC (Auto) Urine Creatinine Ur Creatinine 24 Hour Digoxin Crossmatch See Detail 12/17/17 12/17/17 12/17/17 05:27 05:27 06:11 RBC 2.10 L Hgb 6.6 L Hct 19.2 L* MCV MCH MCHC 35 H RDW 16.5 H Plt Count 65 L Lymph % (Auto) 12.6 L [place] % (Auto) 9.6 H Baso % (Auto) Lymph # 0.7 L [place] # Baso # Seg Neutrophils % 75.8 H Seg Neuts % (Manual) Lymphocytes % (Manual) Eosinophils % (Manual) Basophils % (Manual) Lymphocytes # (Manual) Eosinophils # (Manual) Basophils # (Manual) PT INR APTT Fibrinogen D-Dimer POC ABG pH POC ABG pCO2 POC ABG pO2 Sodium 135 L Potassium 3.4 L Chloride 84.9 L Carbon Dioxide 33 H BUN 53 H Creatinine 5.9 H Glucose POC Glucose 110 H Lactic Acid Calcium 7.7 L Phosphorus Magnesium TIBC Ferritin Total Bilirubin 2.70 H Direct Bilirubin AST 50 H Ammonia Lactate Dehydrogenase NT-Pro-B Natriuret Pep Total Protein 6.2 L Albumin 3.7 L Lipase Vitamin B12 Urine WBC (Auto) Urine Creatinine Ur Creatinine 24 Hour Digoxin Crossmatch 12/17/17 12/18/17 12/18/17 09:34 00:05 05:21 RBC 3.35 L Hgb 10.3 L D Hct 30.4 L D MCV MCH MCHC RDW 16.2 H Plt Count 57 L Lymph % (Auto) 8.0 L [place] % (Auto) 10.9 H Baso % (Auto) Lymph # 0.6 L [place] # Baso # Seg Neutrophils % 80.2 H Seg Neuts % (Manual) Lymphocytes % (Manual) Eosinophils % (Manual) Basophils % (Manual) Lymphocytes # (Manual) Eosinophils # (Manual) Basophils # (Manual) PT 23.9 H INR 1.99 H APTT Fibrinogen D-Dimer POC ABG pH POC ABG pCO2 POC ABG pO2 Sodium Potassium Chloride Carbon Dioxide BUN Creatinine Glucose POC Glucose 132 H Lactic Acid Calcium Phosphorus Magnesium TIBC Ferritin Total Bilirubin Direct Bilirubin AST Ammonia Lactate Dehydrogenase NT-Pro-B Natriuret Pep Total Protein Albumin Lipase Vitamin B12 Urine WBC (Auto) Urine Creatinine Ur Creatinine 24 Hour Digoxin Crossmatch 12/18/17 12/18/17 12/18/17 05:21 06:16 11:11 RBC Hgb Hct MCV MCH MCHC RDW Plt Count Lymph % (Auto) [place] % (Auto) Baso % (Auto) Lymph # [place] # Baso # Seg Neutrophils % Seg Neuts % (Manual) Lymphocytes % (Manual) Eosinophils % (Manual) Basophils % (Manual) Lymphocytes # (Manual) Eosinophils # (Manual) Basophils # (Manual) PT 34.7 H INR 3.17 H APTT Fibrinogen D-Dimer POC ABG pH POC ABG pCO2 POC ABG pO2 Sodium Potassium 3.5 L Chloride 87.1 L Carbon Dioxide BUN 35 H Creatinine 4.3 H Glucose 110 H POC Glucose 116 H Lactic Acid Calcium 8.1 L Phosphorus Magnesium TIBC Ferritin Total Bilirubin 5.10 H Direct Bilirubin AST 56 H Ammonia Lactate Dehydrogenase NT-Pro-B Natriuret Pep Total Protein Albumin Lipase Vitamin B12 Urine WBC (Auto) Urine Creatinine Ur Creatinine 24 Hour Digoxin Crossmatch 12/18/17 12/18/17 12/18/17 13:10 17:52 22:04 RBC Hgb Hct MCV MCH MCHC RDW Plt Count Lymph % (Auto) [place] % (Auto) Baso % (Auto) Lymph # [place] # Baso # Seg Neutrophils % Seg Neuts % (Manual) Lymphocytes % (Manual) Eosinophils % (Manual) Basophils % (Manual) Lymphocytes # (Manual) Eosinophils # (Manual) Basophils # (Manual) PT 25.9 H INR 2.20 H APTT Fibrinogen D-Dimer POC ABG pH POC ABG pCO2 POC ABG pO2 Sodium Potassium Chloride Carbon Dioxide BUN Creatinine Glucose POC Glucose 114 H 108 H Lactic Acid Calcium Phosphorus Magnesium TIBC Ferritin Total Bilirubin Direct Bilirubin AST Ammonia Lactate Dehydrogenase NT-Pro-B Natriuret Pep Total Protein Albumin Lipase Vitamin B12 Urine WBC (Auto) Urine Creatinine Ur Creatinine 24 Hour Digoxin Crossmatch 12/19/17 12/19/17 12/19/17 05:55 05:55 10:20 RBC 2.85 L Hgb 9.1 L Hct 25.7 L MCV MCH MCHC 35 H RDW 16.4 H Plt Count 61 L Lymph % (Auto) [place] % (Auto) Baso % (Auto) Lymph # [place] # Baso # Seg Neutrophils % Seg Neuts % (Manual) Lymphocytes % (Manual) Eosinophils % (Manual) Basophils % (Manual) Lymphocytes # (Manual) Eosinophils # (Manual) Basophils # (Manual) PT INR APTT Fibrinogen D-Dimer POC ABG pH POC ABG pCO2 POC ABG pO2 Sodium Potassium Chloride 94.5 L Carbon Dioxide BUN 27 H Creatinine 3.6 H Glucose POC Glucose 131 H Lactic Acid Calcium 8.2 L Phosphorus Magnesium TIBC Ferritin Total Bilirubin Direct Bilirubin AST Ammonia Lactate Dehydrogenase NT-Pro-B Natriuret Pep Total Protein Albumin Lipase Vitamin B12 Urine WBC (Auto) Urine Creatinine Ur Creatinine 24 Hour Digoxin Crossmatch 12/19/17 12/21/17 12/21/17 11:46 05:26 05:26 RBC 2.60 L Hgb 8.4 L Hct 23.9 L MCV MCH MCHC 35 H RDW 16.2 H Plt Count 57 L Lymph % (Auto) 12.4 L [place] % (Auto) 10.7 H Baso % (Auto) Lymph # [place] # 1.0 H Baso # Seg Neutrophils % 74.8 H Seg Neuts % (Manual) Lymphocytes % (Manual) Eosinophils % (Manual) Basophils % (Manual) Lymphocytes # (Manual) Eosinophils # (Manual) Basophils # (Manual) PT 26.2 H INR 2.23 H APTT Fibrinogen D-Dimer POC ABG pH POC ABG pCO2 POC ABG pO2 Sodium Potassium Chloride Carbon Dioxide BUN Creatinine Glucose POC Glucose Lactic Acid Calcium Phosphorus Magnesium TIBC Ferritin Total Bilirubin Direct Bilirubin AST Ammonia Lactate Dehydrogenase NT-Pro-B Natriuret Pep Total Protein Albumin Lipase Vitamin B12 Urine WBC (Auto) Urine Creatinine Ur Creatinine 24 Hour Digoxin 0.4 L Crossmatch 12/21/17 12/23/17 12/24/17 09:40 08:15 04:51 RBC 1.80 L Hgb 5.9 L* Hct 17.0 L* D MCV MCH 33 H MCHC 35 H RDW 16.5 H Plt Count 53 L Lymph % (Auto) [place] % (Auto) Baso % (Auto) Lymph # [place] # Baso # Seg Neutrophils % Seg Neuts % (Manual) Lymphocytes % (Manual) Eosinophils % (Manual) Basophils % (Manual) Lymphocytes # (Manual) Eosinophils # (Manual) Basophils # (Manual) PT 26.4 H 27.9 H INR 2.26 H 2.42 H APTT Fibrinogen D-Dimer POC ABG pH POC ABG pCO2 POC ABG pO2 Sodium Potassium Chloride Carbon Dioxide BUN Creatinine Glucose POC Glucose Lactic Acid Calcium Phosphorus Magnesium TIBC Ferritin Total Bilirubin Direct Bilirubin AST Ammonia Lactate Dehydrogenase NT-Pro-B Natriuret Pep Total Protein Albumin Lipase Vitamin B12 Urine WBC (Auto) Urine Creatinine Ur Creatinine 24 Hour Digoxin Crossmatch 12/24/17 12/24/17 12/24/17 04:51 06:25 08:20 RBC Hgb Hct MCV MCH MCHC RDW Plt Count Lymph % (Auto) [place] % (Auto) Baso % (Auto) Lymph # [place] # Baso # Seg Neutrophils % Seg Neuts % (Manual) Lymphocytes % (Manual) Eosinophils % (Manual) Basophils % (Manual) Lymphocytes # (Manual) Eosinophils # (Manual) Basophils # (Manual) PT 40.8 H INR 3.87 H APTT Fibrinogen D-Dimer POC ABG pH POC ABG pCO2 POC ABG pO2 Sodium Potassium 3.5 L Chloride Carbon Dioxide BUN 21 H Creatinine 4.4 H Glucose POC Glucose Lactic Acid Calcium 8.1 L Phosphorus Magnesium TIBC Ferritin Total Bilirubin Direct Bilirubin AST Ammonia Lactate Dehydrogenase NT-Pro-B Natriuret Pep Total Protein Albumin Lipase Vitamin B12 Urine WBC (Auto) Urine Creatinine Ur Creatinine 24 Hour Digoxin Crossmatch See Detail 12/24/17 12/24/17 12/25/17 19:21 19:21 05:27 RBC 2.31 L Hgb 7.3 L 7.4 L Hct 20.4 L 21.3 L MCV MCH MCHC 35 H RDW 15.9 H Plt Count 39 L Lymph % (Auto) [place] % (Auto) 10.8 H Baso % (Auto) Lymph # 0.9 L [place] # Baso # Seg Neutrophils % 71.9 H Seg Neuts % (Manual) Lymphocytes % (Manual) Eosinophils % (Manual) Basophils % (Manual) Lymphocytes # (Manual) Eosinophils # (Manual) Basophils # (Manual) PT 21.3 H INR 1.73 H APTT Fibrinogen D-Dimer POC ABG pH POC ABG pCO2 POC ABG pO2 Sodium Potassium Chloride Carbon Dioxide BUN Creatinine Glucose POC Glucose Lactic Acid Calcium Phosphorus Magnesium TIBC Ferritin Total Bilirubin Direct Bilirubin AST Ammonia Lactate Dehydrogenase NT-Pro-B Natriuret Pep Total Protein Albumin Lipase Vitamin B12 Urine WBC (Auto) Urine Creatinine Ur Creatinine 24 Hour Digoxin Crossmatch 12/25/17 12/25/17 12/25/17 05:27 05:27 12:24 RBC Hgb Hct MCV MCH MCHC RDW Plt Count Lymph % (Auto) [place] % (Auto) Baso % (Auto) Lymph # [place] # Baso # Seg Neutrophils % Seg Neuts % (Manual) Lymphocytes % (Manual) Eosinophils % (Manual) Basophils % (Manual) Lymphocytes # (Manual) Eosinophils # (Manual) Basophils # (Manual) PT 22.1 H INR 1.81 H APTT Fibrinogen D-Dimer POC ABG pH POC ABG pCO2 POC ABG pO2 Sodium Potassium 3.5 L Chloride 96.7 L Carbon Dioxide BUN Creatinine 3.2 H Glucose POC Glucose 140 H Lactic Acid Calcium 8.1 L Phosphorus Magnesium TIBC Ferritin Total Bilirubin Direct Bilirubin AST Ammonia Lactate Dehydrogenase NT-Pro-B Natriuret Pep Total Protein Albumin Lipase Vitamin B12 Urine WBC (Auto) Urine Creatinine Ur Creatinine 24 Hour Digoxin Crossmatch 12/26/17 12/26/17 12/27/17 05:59 05:59 06:34 RBC 2.01 L 2.52 L Hgb 6.6 L 8.2 L Hct 18.6 L* 23.2 L MCV MCH 33 H MCHC 35 H 35 H RDW 16.6 H 15.3 H Plt Count 45 L 39 L Lymph % (Auto) 11.6 L [place] % (Auto) 10.3 H 11.2 H Baso % (Auto) Lymph # 1.0 L 0.7 L [place] # Baso # Seg Neutrophils % 72.2 H 75.4 H Seg Neuts % (Manual) Lymphocytes % (Manual) Eosinophils % (Manual) Basophils % (Manual) Lymphocytes # (Manual) Eosinophils # (Manual) Basophils # (Manual) PT INR APTT Fibrinogen D-Dimer POC ABG pH POC ABG pCO2 POC ABG pO2 Sodium Potassium 3.3 L Chloride Carbon Dioxide BUN Creatinine 3.8 H Glucose 110 H POC Glucose Lactic Acid Calcium Phosphorus 2.40 L Magnesium 1.40 L TIBC Ferritin Total Bilirubin 7.10 H Direct Bilirubin AST 73 H Ammonia Lactate Dehydrogenase NT-Pro-B Natriuret Pep Total Protein Albumin 3.5 L Lipase Vitamin B12 Urine WBC (Auto) Urine Creatinine Ur Creatinine 24 Hour Digoxin Crossmatch 12/27/17 12/27/17 12/27/17 06:34 06:34 06:34 RBC Hgb Hct MCV MCH MCHC RDW Plt Count Lymph % (Auto) [place] % (Auto) Baso % (Auto) Lymph # [place] # Baso # Seg Neutrophils % Seg Neuts % (Manual) Lymphocytes % (Manual) Eosinophils % (Manual) Basophils % (Manual) Lymphocytes # (Manual) Eosinophils # (Manual) Basophils # (Manual) PT INR APTT Fibrinogen D-Dimer POC ABG pH POC ABG pCO2 POC ABG pO2 Sodium Potassium 3.3 L Chloride 95.4 L Carbon Dioxide BUN Creatinine 2.6 H Glucose 112 H POC Glucose Lactic Acid Calcium 8.1 L Phosphorus Magnesium TIBC 77 L Ferritin > 2000.0 H Total Bilirubin 8.00 H Direct Bilirubin AST 89 H Ammonia Lactate Dehydrogenase 302 H NT-Pro-B Natriuret Pep Total Protein Albumin 3.7 L Lipase Vitamin B12 Urine WBC (Auto) Urine Creatinine Ur Creatinine 24 Hour Digoxin Crossmatch 12/28/17 12/28/17 12/29/17 06:24 09:00 00:30 RBC 2.25 L Hgb 7.5 L Hct 21.1 L MCV MCH 33 H MCHC 35 H RDW 16.2 H Plt Count 78 L D Lymph % (Auto) 12.5 L [place] % (Auto) 12.3 H Baso % (Auto) Lymph # 0.9 L [place] # 0.9 H Baso # Seg Neutrophils % 73.3 H Seg Neuts % (Manual) Lymphocytes % (Manual) Eosinophils % (Manual) Basophils % (Manual) Lymphocytes # (Manual) Eosinophils # (Manual) Basophils # (Manual) PT 23.7 H INR 1.97 H APTT 53.1 H Fibrinogen D-Dimer POC ABG pH POC ABG pCO2 POC ABG pO2 Sodium Potassium Chloride Carbon Dioxide BUN Creatinine Glucose POC Glucose 148 H Lactic Acid Calcium Phosphorus Magnesium TIBC Ferritin Total Bilirubin Direct Bilirubin AST Ammonia Lactate Dehydrogenase NT-Pro-B Natriuret Pep Total Protein Albumin Lipase Vitamin B12 Urine WBC (Auto) Urine Creatinine Ur Creatinine 24 Hour Digoxin Crossmatch 12/29/17 12/29/17 12/29/17 00:34 03:59 03:59 RBC 2.19 L Hgb 7.2 L Hct 20.7 L MCV 95 H MCH 33 H MCHC 35 H RDW 16.9 H Plt Count 75 L Lymph % (Auto) [place] % (Auto) 10.8 H Baso % (Auto) Lymph # [place] # Baso # Seg Neutrophils % 70.8 H Seg Neuts % (Manual) Lymphocytes % (Manual) Eosinophils % (Manual) Basophils % (Manual) Lymphocytes # (Manual) Eosinophils # (Manual) Basophils # (Manual) PT 25.7 H INR 2.18 H APTT Fibrinogen D-Dimer POC ABG pH POC ABG pCO2 POC ABG pO2 Sodium Potassium Chloride Carbon Dioxide BUN Creatinine 2.3 H Glucose 111 H POC Glucose Lactic Acid Calcium Phosphorus Magnesium TIBC Ferritin Total Bilirubin 8.20 H Direct Bilirubin AST 66 H Ammonia Lactate Dehydrogenase NT-Pro-B Natriuret Pep Total Protein Albumin 3.5 L Lipase Vitamin B12 Urine WBC (Auto) Urine Creatinine Ur Creatinine 24 Hour Digoxin Crossmatch 12/29/17 12/30/17 12/30/17 07:35 07:51 08:27 RBC 1.97 L Hgb 6.7 L Hct 18.8 L* MCV 96 H MCH 34 H MCHC 36 H RDW 17.6 H Plt Count 76 L Lymph % (Auto) [place] % (Auto) 10.5 H Baso % (Auto) Lymph # 1.0 L [place] # Baso # Seg Neutrophils % 72.4 H Seg Neuts % (Manual) Lymphocytes % (Manual) Eosinophils % (Manual) Basophils % (Manual) Lymphocytes # (Manual) Eosinophils # (Manual) Basophils # (Manual) PT INR APTT Fibrinogen D-Dimer POC ABG pH POC ABG pCO2 POC ABG pO2 Sodium Potassium Chloride Carbon Dioxide BUN Creatinine Glucose POC Glucose 113 H Lactic Acid Calcium Phosphorus Magnesium 1.50 L TIBC Ferritin Total Bilirubin Direct Bilirubin AST Ammonia Lactate Dehydrogenase NT-Pro-B Natriuret Pep Total Protein Albumin Lipase Vitamin B12 Urine WBC (Auto) Urine Creatinine Ur Creatinine 24 Hour Digoxin Crossmatch 12/30/17 12/31/17 12/31/17 08:44 12:59 12:59 RBC 2.49 L Hgb 8.3 L Hct 23.0 L MCV MCH 33 H MCHC 36 H RDW 17.5 H Plt Count 69 L Lymph % (Auto) [place] % (Auto) 13.0 H Baso % (Auto) 1.9 H Lymph # 1.1 L [place] # 0.9 H Baso # Seg Neutrophils % Seg Neuts % (Manual) Lymphocytes % (Manual) Eosinophils % (Manual) Basophils % (Manual) Lymphocytes # (Manual) Eosinophils # (Manual) Basophils # (Manual) PT INR APTT Fibrinogen D-Dimer POC ABG pH POC ABG pCO2 POC ABG pO2 Sodium Potassium Chloride Carbon Dioxide BUN 21 H Creatinine 3.8 H D Glucose 114 H POC Glucose Lactic Acid Calcium Phosphorus Magnesium TIBC Ferritin Total Bilirubin 8.30 H Direct Bilirubin AST 46 H Ammonia Lactate Dehydrogenase NT-Pro-B Natriuret Pep Total Protein Albumin Lipase Vitamin B12 Urine WBC (Auto) Urine Creatinine Ur Creatinine 24 Hour Digoxin Crossmatch See Detail 12/31/17 01/01/18 01/01/18 12:59 05:27 05:27 RBC 2.69 L Hgb 9.1 L Hct 25.1 L MCV MCH 34 H MCHC 36 H RDW 17.5 H Plt Count 64 L Lymph % (Auto) 12.5 L [place] % (Auto) 14.4 H Baso % (Auto) Lymph # 0.9 L [place] # 1.1 H Baso # Seg Neutrophils % 70.4 H Seg Neuts % (Manual) Lymphocytes % (Manual) Eosinophils % (Manual) Basophils % (Manual) Lymphocytes # (Manual) Eosinophils # (Manual) Basophils # (Manual) PT 19.7 H 22.1 H INR 1.57 H 1.81 H APTT Fibrinogen D-Dimer POC ABG pH POC ABG pCO2 POC ABG pO2 Sodium Potassium Chloride Carbon Dioxide BUN Creatinine Glucose POC Glucose Lactic Acid Calcium Phosphorus Magnesium TIBC Ferritin Total Bilirubin Direct Bilirubin AST Ammonia Lactate Dehydrogenase NT-Pro-B Natriuret Pep Total Protein Albumin Lipase Vitamin B12 Urine WBC (Auto) Urine Creatinine Ur Creatinine 24 Hour Digoxin Crossmatch 01/01/18 01/03/18 01/03/18 05:27 06:24 06:24 RBC 2.62 L Hgb 8.7 L Hct 25.6 L MCV 98 H MCH 33 H MCHC RDW 19.4 H Plt Count 55 L Lymph % (Auto) [place] % (Auto) 10.9 H Baso % (Auto) 2.7 H Lymph # 1.1 L [place] # 0.9 H Baso # 0.2 H Seg Neutrophils % Seg Neuts % (Manual) Lymphocytes % (Manual) Eosinophils % (Manual) Basophils % (Manual) Lymphocytes # (Manual) Eosinophils # (Manual) Basophils # (Manual) PT 24.1 H INR 2.01 H APTT Fibrinogen D-Dimer POC ABG pH POC ABG pCO2 POC ABG pO2 Sodium Potassium Chloride Carbon Dioxide BUN Creatinine 2.8 H Glucose POC Glucose Lactic Acid Calcium Phosphorus Magnesium TIBC Ferritin Total Bilirubin 9.20 H Direct Bilirubin AST 49 H Ammonia Lactate Dehydrogenase NT-Pro-B Natriuret Pep Total Protein Albumin 3.8 L Lipase Vitamin B12 Urine WBC (Auto) Urine Creatinine Ur Creatinine 24 Hour Digoxin Crossmatch 01/03/18 01/05/18 01/05/18 06:24 04:47 04:47 RBC 2.75 L Hgb 9.2 L Hct 27.3 L MCV 99 H MCH 34 H MCHC RDW 23.5 H Plt Count 55 L Lymph % (Auto) [place] % (Auto) 14.3 H Baso % (Auto) 2.3 H Lymph # [place] # 1.0 H Baso # 0.2 H Seg Neutrophils % Seg Neuts % (Manual) Lymphocytes % (Manual) Eosinophils % (Manual) Basophils % (Manual) Lymphocytes # (Manual) Eosinophils # (Manual) Basophils # (Manual) PT 24.3 H INR 2.04 H APTT Fibrinogen D-Dimer POC ABG pH POC ABG pCO2 POC ABG pO2 Sodium Potassium Chloride Carbon Dioxide BUN Creatinine Glucose POC Glucose Lactic Acid Calcium Phosphorus Magnesium TIBC Ferritin Total Bilirubin 9.00 H Direct Bilirubin 2.7 H AST 50 H Ammonia Lactate Dehydrogenase NT-Pro-B Natriuret Pep Total Protein Albumin 3.6 L Lipase Vitamin B12 Urine WBC (Auto) Urine Creatinine Ur Creatinine 24 Hour Digoxin Crossmatch 01/05/18 01/05/18 01/06/18 04:47 14:57 02:35 RBC 2.75 L Hgb 9.2 L Hct 27.7 L MCV 101 H MCH 34 H MCHC RDW 25.1 H Plt Count 46 L Lymph % (Auto) [place] % (Auto) Baso % (Auto) Lymph # [place] # Baso # Seg Neutrophils % Seg Neuts % (Manual) Lymphocytes % (Manual) 13.0 L Eosinophils % (Manual) 7.0 H Basophils % (Manual) 2.0 H Lymphocytes # (Manual) 1.0 L Eosinophils # (Manual) 0.6 H Basophils # (Manual) 0.2 H PT INR APTT Fibrinogen D-Dimer POC ABG pH POC ABG pCO2 POC ABG pO2 Sodium Potassium Chloride Carbon Dioxide BUN Creatinine 2.6 H Glucose 117 H POC Glucose Lactic Acid Calcium Phosphorus Magnesium TIBC Ferritin Total Bilirubin 9.50 H Direct Bilirubin AST 50 H Ammonia 75.0 H Lactate Dehydrogenase NT-Pro-B Natriuret Pep Total Protein Albumin 3.7 L Lipase Vitamin B12 Urine WBC (Auto) Urine Creatinine Ur Creatinine 24 Hour Digoxin Crossmatch 01/06/18 02:35 RBC Hgb Hct MCV MCH MCHC RDW Plt Count Lymph % (Auto) [place] % (Auto) Baso % (Auto) Lymph # [place] # Baso # Seg Neutrophils % Seg Neuts % (Manual) Lymphocytes % (Manual) Eosinophils % (Manual) Basophils % (Manual) Lymphocytes # (Manual) Eosinophils # (Manual) Basophils # (Manual) PT INR APTT Fibrinogen D-Dimer POC ABG pH POC ABG pCO2 POC ABG pO2 Sodium Potassium Chloride 96.3 L Carbon Dioxide 21 L BUN 23 H Creatinine 2.9 H Glucose POC Glucose Lactic Acid Calcium Phosphorus Magnesium TIBC Ferritin Total Bilirubin 9.80 H Direct Bilirubin AST 65 H Ammonia Lactate Dehydrogenase NT-Pro-B Natriuret Pep Total Protein Albumin 3.5 L Lipase Vitamin B12 Urine WBC (Auto) Urine Creatinine Ur Creatinine 24 Hour Digoxin Crossmatch Allied health notes reviewed: nursing
--- NOTE | 2018-01-06 15:01 | Progress Note ---
Assessment and Plan Assessment and plan: Patient is a 62-year-old man with a history of hypertension, seizure disorder, cirrhosis who presented to [facility] ED with abdominal pains and swelling. He was admitted due to hypotension. * CT chest wo contrast IMPRESSION: The heart size is normal.. There is no thoracic aortic aneurysm or dissection.. There is discoid atelectasis at the lung bases greater on the right. There are no acute infiltrates.. There are large bilateral pleural effusions. There is no pneumothorax.. * CT abd/pelvis wo contrast IMPRESSION: There is a stent in the portal vein. Liver is irregular in contour suggesting cirrhosis. There are tiny calcified granulomas. There is no discrete mass.. There are bilateral kidney stones. There is no hydronephrosis.. There is a large amount of stool in the colon. There is no obstruction or fecal impaction. There is no specific evidence of colitis or diverticulitis. The stomach and small bowel are unremarkable. The appendix is normal.. There is minimal ascites. There is no free air -Severe Cirrhosis/Ascites/hyperbilirubinemia s/p paracentesis, fluid analysis negative for SBP -Bilateral pleural effusion right greater than left: Filler Shredding Machine Loader recommends giving FFP and thoracentesis, Scheduled for thoracentesis -Acute on chronic blood loss anemia/ esophageal Varices s/p PRBC transfusion, total 11 units during this admission, EGD negative for esophageal variceal bleeding: closely monitor -Coagulopathy; secondary to cirrhosis liver: Received vitamin K subcutaneous 1 dose, FFP's, Vitamin K, FFP's as needed -Severe thrombocytopenia; secondary to cirrhosis -NSVT, resolved; continue Lopressor -Hypovolemic shock. On midodrine, -No evidence for Sepsis; cultures negative, I could not find any evidence of an infectious source to document Sepsis, mostly SIRS, poa -Rectal bleeding; resolved GI following -Toxic metabolic/hepatic encephalopathy. Hyperammonemia on admission. Resolved -Acute on chronic kidney disease V, initiated Hemodialysis 12/17/17 after perm-a- cath placed: ATN/sepsis/hypotension. Now on hemodialysis, Outpatient dialysis per case management -Hepatorenal syndrome; on HD, nephrology following Patient has appointment for liver transplant evaluation in [place], However patient was unstable for discharge. Dr. Hanson talked to Dr. Guevara transplant center updated patient's clinical status, a few days ago Day , my first day caring for patient. Dr. Hanson called for handoff History Interval history: Patient was seen and examined. Follow-up on current diagnosis of abdominal swelling. Overnight uneventful. Patient denies any chest pain, shortness breath , nausea/vomiting or severe headaches. Imaging, nursing note, chart, labs and old chart reviewed. Discussed with patient. Hospitalist Physical - Physical exam Narrative exam: GEN: thin frail, NAD, Awake, Alert, Orientated HEENT: NCAT, EOMI, PERRL, OP Clear NECK: supple, no adenopathy, no thyromegaly, no JVD CVS/HEART: RRR, normal S1S2, pulses present bilaterally CHEST/LUNGS: diminished bs bilaterally, Symmetrical chest expansion, good air entry bilaterally GI/Abdomen: soft, distended, good bowel sounds, no guarding or rebound /Bladder: no suprapubic tenderness, no CVA or paraspinal tenderness, swollen penis due to ansarca EXT/Skin: ble edema MSK: FROM x 4 Neuro: CN 2-12 grossly intact, no new focal deficits Psych: calm - Constitutional Vitals: Temp Pulse Resp BP Pulse Ox 97.9 F 66 18 107/59 94 01/06/18 07:48 01/06/18 07:54 01/06/18 07:48 01/06/18 07:48 01/06/18 07:48 General appearance: Present: no acute distress Results - Labs CBC & Chem 7: 01/06/18 02:35 01/06/18 02:35 Labs: Laboratory Last Values WBC 7.9 K/mm3 (4.5-11.0) 01/06/18 02:35 RBC 2.75 M/mm3 (3.65-5.03) L 01/06/18 02:35 Hgb 9.2 gm/dl (11.8-15.2) L 01/06/18 02:35 Hct 27.7 % (35.5-45.6) L 01/06/18 02:35 MCV 101 fl (84-94) H 01/06/18 02:35 MCH 34 pg (28-32) H 01/06/18 02:35 MCHC 33 % (32-34) 01/06/18 02:35 RDW 25.1 % (13.2-15.2) H 01/06/18 02:35 Plt Count 46 K/mm3 (140-440) L 01/06/18 02:35 Lymph % (Auto) 16.1 % (13.4-35.0) 01/05/18 04:47 [place] % (Auto) Manager Of Financial Reporting 01/06/18 02:35 Eos % (Auto) 1.1 % (0.0-4.3) 01/05/18 04:47 Baso % (Auto) 2.3 % (0.0-1.8) H 01/05/18 04:47 Lymph # 1.2 K/mm3 (1.2-5.4) 01/05/18 04:47 [place] # 1.0 K/mm3 (0.0-0.8) H 01/05/18 04:47 Eos # 0.1 K/mm3 (0.0-0.4) 01/05/18 04:47 Baso # 0.2 K/mm3 (0.0-0.1) H 01/05/18 04:47 Add Manual Diff Complete 01/06/18 02:35 Total Counted 100 01/06/18 02:35 Seg Neutrophils % 66.2 % (40.0-70.0) 01/05/18 04:47 Seg Neuts % (Manual) 68.0 % (40.0-70.0) 01/06/18 02:35 Band Neutrophils % 5.0 % 01/06/18 02:35 Lymphocytes % (Manual) 13.0 % (13.4-35.0) L 01/06/18 02:35 Reactive Lymphs % (Man) 0 % 01/06/18 02:35 Monocytes % (Manual) 5.0 % (0.0-7.3) 01/06/18 02:35 Eosinophils % (Manual) 7.0 % (0.0-4.3) H 01/06/18 02:35 Basophils % (Manual) 2.0 % (0.0-1.8) H 01/06/18 02:35 Metamyelocytes % 0 % 01/06/18 02:35 Myelocytes % 0 % 01/06/18 02:35 Promyelocytes % 0 % 01/06/18 02:35 Blast Cells % 0 % 01/06/18 02:35 Nucleated RBC % Not Reportable 01/06/18 02:35 Seg Neutrophils # 4.9 K/mm3 (1.8-7.7) 01/05/18 04:47 Seg Neutrophils # Man 5.4 K/mm3 (1.8-7.7) 01/06/18 02:35 Band Neutrophils # 0.4 K/mm3 01/06/18 02:35 Lymphocytes # (Manual) 1.0 K/mm3 (1.2-5.4) L 01/06/18 02:35 Abs React Lymphs (Man) 0.0 K/mm3 01/06/18 02:35 Monocytes # (Manual) 0.4 K/mm3 (0.0-0.8) 01/06/18 02:35 Eosinophils # (Manual) 0.6 K/mm3 (0.0-0.4) H 01/06/18 02:35 Basophils # (Manual) 0.2 K/mm3 (0.0-0.1) H 01/06/18 02:35 Metamyelocytes # 0.0 K/mm3 01/06/18 02:35 Myelocytes # 0.0 K/mm3 01/06/18 02:35 Promyelocytes # 0.0 K/mm3 01/06/18 02:35 Blast Cells # 0.0 K/mm3 01/06/18 02:35 WBC Morphology Not Reportable 01/06/18 02:35 Hypersegmented Neuts Not Reportable 01/06/18 02:35 Hyposegmented Neuts Not Reportable 01/06/18 02:35 Hypogranular Neuts Not Reportable 01/06/18 02:35 Smudge Cells Not Reportable 01/06/18 02:35 Toxic Granulation Not Reportable 01/06/18 02:35 Toxic Vacuolation Not Reportable 01/06/18 02:35 Dohle Bodies Not Reportable 01/06/18 02:35 Pelger-Huet Anomaly Not Reportable 01/06/18 02:35 Eriberto Rods Not Reportable 01/06/18 02:35 Platelet Estimate Consistent w auto 01/06/18 02:35 Clumped Platelets Not Reportable 01/06/18 02:35 Plt Clumps, EDTA Not Reportable 01/06/18 02:35 Large Platelets Not Reportable 01/06/18 02:35 Giant Platelets Not Reportable 01/06/18 02:35 Platelet Satelliting Not Reportable 01/06/18 02:35 Plt Morphology Comment Not Reportable 01/06/18 02:35 RBC Morphology Not Reportable 01/06/18 02:35 Dimorphic RBCs Not Reportable 01/06/18 02:35 Polychromasia Not Reportable 01/06/18 02:35 Hypochromasia Rare 01/06/18 02:35 Poikilocytosis Not Reportable 01/06/18 02:35 Anisocytosis 1+ 01/06/18 02:35 Microcytosis Not Reportable 01/06/18 02:35 Macrocytosis Not Reportable 01/06/18 02:35 Spherocytes Few 01/06/18 02:35 Pappenheimer Bodies Not Reportable 01/06/18 02:35 Sickle Cells Not Reportable 01/06/18 02:35 Target Cells Not Reportable 01/06/18 02:35 Tear Drop Cells Not Reportable 01/06/18 02:35 Ovalocytes 1+ 01/06/18 02:35 Helmet Cells Not Reportable 01/06/18 02:35 Dos Santos-Alvin Bodies Not Reportable 01/06/18 02:35 Geff Rings Not Reportable 01/06/18 02:35 Fahad Cells Not Reportable 01/06/18 02:35 Bite Cells Not Reportable 01/06/18 02:35 Crenated Cell Not Reportable 01/06/18 02:35 Elliptocytes Not Reportable 01/06/18 02:35 Acanthocytes (Spur) 1+ 01/06/18 02:35 Rouleaux Not Reportable 01/06/18 02:35 Hemoglobin C Crystals Not Reportable 01/06/18 02:35 Schistocytes Not Reportable 01/06/18 02:35 Malaria parasites Not Reportable 01/06/18 02:35 ESR 18 mm/Hr (0-20) 12/12/17 19:50 Lyndon Bodies Not Reportable 01/06/18 02:35 Hem Pathologist Commnt No 01/06/18 02:35 PT 24.3 Sec. (12.2-14.9) H 01/05/18 04:47 INR 2.04 (0.87-1.13) H 01/05/18 04:47 APTT 53.1 Sec. (24.2-36.6) H 12/28/17 09:00 Fibrinogen 128 mg/dl (211-480) L 12/12/17 19:50 D-Dimer 1215.06 ng/mlDDU (0-234) H 12/12/17 19:50 Factor VIII:C Activity 178 % (50-180) 12/12/17 20:30 POC ABG pH 7.452 (7.35-7.45) H 12/12/17 09:13 POC ABG pCO2 22.2 (35-45) L 12/12/17 09:13 POC ABG pO2 75 (80-105) L 12/12/17 09:13 POC ABG HCO3 15.5 12/12/17 09:13 POC ABG Total CO2 16 12/12/17 09:13 POC ABG O2 Sat 96 12/12/17 09:13 POC ABG Base Excess -8 12/12/17 09:13 FiO2 21 % 12/12/17 09:13 Sodium 140 mmol/L (137-145) 01/06/18 02:35 Potassium 4.8 mmol/L (3.6-5.0) 01/06/18 02:35 Chloride 96.3 mmol/L (98-107) L 01/06/18 02:35 Carbon Dioxide 21 mmol/L (22-30) L 01/06/18 02:35 Anion Gap 28 mmol/L 01/06/18 02:35 BUN 23 mg/dL (9-20) H 01/06/18 02:35 Creatinine 2.9 mg/dL (0.8-1.5) H 01/06/18 02:35 Estimated GFR 27 ml/min 01/06/18 02:35 BUN/Creatinine Ratio 8 % 01/06/18 02:35 Glucose 96 mg/dL (75-100) 01/06/18 02:35 POC Glucose 113 (70-105) H 12/29/17 07:35 Lactic Acid 3.90 mmol/L (0.7-2.0) H* 12/14/17 17:26 Calcium 9.8 mg/dL (8.4-10.2) 01/06/18 02:35 Phosphorus 2.40 mg/dL (2.5-4.5) L 12/26/17 05:59 Magnesium 1.70 mg/dL (1.7-2.3) 01/03/18 06:24 Iron 78 ug/dL (49-181) 12/27/17 06:34 TIBC 77 mcg/dL (250-450) L 12/27/17 06:34 Ferritin > 2000.0 ng/mL (13.0-400.0) H 12/27/17 06:34 Total Bilirubin 9.80 mg/dL (0.1-1.2) H 01/06/18 02:35 Direct Bilirubin 2.7 mg/dL (0-0.2) H 01/03/18 06:24 Indirect Bilirubin 6.3 mg/dL 01/03/18 06:24 AST 65 units/L (5-40) H 01/06/18 02:35 ALT 23 units/L (7-56) 01/06/18 02:35 Alkaline Phosphatase 68 units/L (35-129) 01/06/18 02:35 Ammonia 75.0 umol/L (25-60) H 01/05/18 14:57 Lactate Dehydrogenase 302 units/L (91-180) H 12/27/17 06:34 Total Creatine Kinase 64 units/L (55-170) 12/10/17 23:14 C-Reactive Protein 0.30 mg/dL (0.00-1.30) 12/13/17 14:03 NT-Pro-B Natriuret Pep 9558 pg/mL (0-900) H 12/10/17 23:14 Total Protein 7.6 g/dL (6.3-8.2) 01/06/18 02:35 Albumin 3.5 g/dL (3.9-5) L 01/06/18 02:35 Albumin/Globulin Ratio 0.9 % 01/06/18 02:35 Lipase 7 units/L (13-60) L 12/10/17 23:14 Vitamin B12 1465 pg/mL (211-911) H 12/12/17 19:50 Folate 14.04 ng/mL (7.3-26.0) 12/12/17 19:50 TSH 2.560 mlU/mL (0.270-4.200) 12/16/17 12:37 Total Cortisol 8.6 mcg/dL () 12/16/17 12:37 Urine Color Yellow (Yellow) 12/10/17 23:05 Urine Turbidity Clear (Clear) 12/10/17 23:05 Urine pH 5.0 (5.0-7.0) 12/10/17 23:05 Ur Specific Aristes 1.013 (1.003-1.030) 12/10/17 23:05 Urine Protein <15 mg/dl mg/dL (Negative) 12/10/17 23:05 Urine Glucose (UA) Neg mg/dL (Negative) 12/10/17 23:05 Urine Ketones Neg mg/dL (Negative) 12/10/17 23:05 Urine Blood Neg (Negative) 12/10/17 23:05 Urine Nitrite Neg (Negative) 12/10/17 23:05 Ur Reducing Substances Not Reportable 12/10/17 23:05 Urine Bilirubin Neg (Negative) 12/10/17 23:05 Urine Ictotest Not Reportable 12/10/17 23:05 Urine Urobilinogen < 2.0 mg/dL (<2.0) 12/10/17 23:05 Ur Leukocyte Esterase Sm (Negative) 12/10/17 23:05 Urine WBC (Auto) 10.0 /HPF (0.0-6.0) H 12/10/17 23:05 Urine RBC (Auto) 4.0 /HPF (0.0-6.0) 12/10/17 23:05 U Epithel Cells (Auto) < 1.0 /HPF (0-13.0) 12/10/17 23:05 Urine Mucus Few /HPF 12/10/17 23:05 Urine Total Volume 250 12/14/17 Unknown Urine Creatinine 122.5 mg/dL (0.1-20.0) H 12/14/17 Unknown Ur Creatinine 24 Hour 0.3 (0.8-2.8) L 12/14/17 Unknown Fluid Type Peritoneal 12/31/17 Unknown Fluid Color Red 12/31/17 Unknown Fluid Appearance Cloudy 12/31/17 Unknown Fluid WBC 55 /mm3 12/31/17 Unknown Fluid RBC 11220 /mm3 12/31/17 Unknown Fluid Seg Neutrophils 6.0 % 12/31/17 Unknown Fluid Lymphocytes 48.0 % 12/31/17 Unknown Fluid Monocytes 46.0 % 12/31/17 Unknown Digoxin 0.4 ng/mL (0.9-2.0) L 12/21/17 05:26 Hepatitis A IgM Ab Non-reactive (NonReactive) 12/12/17 19:50 Hep Bs Antigen Non-reactive (Negative) 12/12/17 19:50 Hep B Core IgM Ab Non-reactive (NonReactive) 12/12/17 19:50 Hepatitis C Antibody Non-reactive (NonReactive) 12/12/17 19:50 Miscellaneous Test Flexitest 1 12/12/17 06:42 Blood Type A NEGATIVE 01/06/18 11:00 Antibody Screen Negative 12/30/17 08:44 Direct Antiglob Test Negative 12/12/17 20:41 JOANNE, Poly Interpret Negative 12/12/17 20:41 Crossmatch See Detail 12/30/17 08:44
[2018-01-06] MEDS ORDERED: NACL 0.9% 100 ML IV PRN (18:54)
[2018-01-06] MEDS ORDERED: NACL 0.9% 500 ML 500 ML IV ONE (19:00)
--- NOTE | 2018-01-07 08:58 | Progress Note ---
Assessment and Plan Impression: * Oliguric CARMEN secondary to ATN vs HRS --s/p permcath placement 12/17/17 and initiation of dialysis * Cirrhosis * Abdominal ascites * Anemia secondary to ABL * s/p Rectal bleeding * Hx of esophageal varices * Hyperbilirubinemia Plan: * Continue HD MWF - UF as tolerated; no evidence of renal recovery * Consultants' recommendations reviewed * Medical management of electrolytes * Avoid potential nephrotoxic agents * Dose medications for renal function * Outpatient HD MWF at [facility] arranged Subjective Date of service: 01/07/18 Principal diagnosis: CARMEN on CKD; Acute Encephalopathy; Sepsis Syndrome; Anemia Interval history: Patient reports "hurting all over" Objective - Vital Signs Vital signs: Vital Signs - 12hr 01/06/18 01/06/18 01/06/18 22:25 22:30 22:45 Temperature 97.6 F 97.6 F 97.8 F Pulse Rate 66 64 68 Respiratory 18 18 18 Rate Blood Pressure 104/67 104/67 104/65 Blood Pressure [Left] O2 Sat by Pulse 96 94 96 Oximetry 01/06/18 01/06/18 01/06/18 22:57 23:15 23:45 Temperature 97.8 F 97.8 F Pulse Rate 61 64 64 Respiratory 18 18 Rate Blood Pressure 105/64 104/67 Blood Pressure [Left] O2 Sat by Pulse 96 96 Oximetry 01/07/18 01/07/18 00:15 04:30 Temperature 98.1 F 97.6 F Pulse Rate 67 67 Respiratory 18 18 Rate Blood Pressure 93/58 Blood Pressure 95/62 [Left] O2 Sat by Pulse 97 90 Oximetry - General Appearance General appearance: well-developed, well-nourished, other (appears to be very comfortable in NAD) EENT: ATNC Respiratory: Present: Clear to Ascultation Cardiology: regular, S1S2 Gastrointestinal: normal, no tenderness Integumentary: warm and dry Neurologic: other (legally blind) Musculoskeletal: other (no edema) Psychiatric: cooperative - Lab 01/06/18 02:35 01/06/18 02:35 Most recent lab results Calcium 9.8 mg/dL (8.4-10.2) 01/06/18 02:35 Phosphorus 2.40 mg/dL (2.5-4.5) L 12/26/17 05:59 Magnesium 1.70 mg/dL (1.7-2.3) 01/03/18 06:24 Urine Creatinine 122.5 mg/dL (0.1-20.0) H 12/14/17 Unknown
[2018-01-07] MEDS: PROAMATINE PO SCH ×3 (08:59→23:19)
[2018-01-07 09:47] LABS: LDH,Body Fluid 186; Total Protein,Body Fluid < 3.0 (15.0-45.0)
[2018-01-07 09:49] LABS: Amylase,Body Fluid < 10; Triglycerides,Body Fluid 48
--- NOTE | 2018-01-07 09:53 | Progress Note ---
Assessment and Plan - Patient Problems (1) Acute hepatic encephalopathy Current Visit: Yes Status: Acute Plan to address problem: see orders. continue with lactulose, recheck ammonia level. continue same. supportive. (2) Anemia Current Visit: Yes Status: Acute Plan to address problem: see orders. Replacement transfusion, if hgb less than 7.0 same as above. see notes above. same as above, stable. see notes above. stable so far. (3) Renal failure Current Visit: Yes Status: Acute Plan to address problem: follow renal service. same as above. (4) Liver failure Current Visit: Yes Status: Acute Plan to address problem: Hepato-renal syndrome, continue with HD. (5) Coagulation disorder Current Visit: Yes Status: Acute Plan to address problem: see notes. Subjective Date of service: 01/07/18 Principal diagnosis: CARMEN on CKD; Acute Encephalopathy; Sepsis Syndrome; Anemia Interval history: Patient seen, restingm labs/notes reviewed. agree with management so far.labs showing consumptive coagulopathy. Patient seen, resting in bed, records/labs reviewed.PLT dropped some.Still no active bleeding. Patient seen/examined, records/labs / notes reviewed, hgb low at 6.9, will rec replacement transfusion,with HD tomorrow if planned to proceed with HD. Patient seen, resting in bed, labs/records reviewed, Hgb still low, transfusion written for today. Patient seen, resting in bed, labs reviewed, plt 57,000, rectal bleeding resolved, will continue to monitor patient/labs with you, and intervene with replacement transfusion, when needed. Patient seen, resting in bed, NAD, records reviewed. Patient seen, resting in bed, labs/records reviewed, no new issues, the latest plt fair, no any sign of bleeding. Patient seen, resting in bed, records reviewed, PLT 57,000, no bleeding. Patient seen, resting in bed, labs reviewed, hgb dropped drastically, due to rectal bleed.He is s/p blood transfusion. he is expected to continue to drop his hgb, as long as he continues to bleed. Will re check labs in am. Thrombocytopenia at above 20,000. will continue to monitor. Patient seen, resting in bed, labs reviewed, ,he will need some PLT+ FFP, especially if there is any plans for any procedure, otherwise, can watch if any active bleeding, or plt 20,000 or less. patient seen/examined, resting in bed, labs reviewed, s/p GI scope, and blood transfusion, Plt replacement ,to follow. patient seen, resting in bed, labs, reviewed, plt 39,000, replacement not given yesterday? Patient seen/examined, at the HD center, resting in bed, was able ro discuss his case with him, regarding prognosis, and options, as i had d/w his yesterday. he wants to talk with his first.. his PLT came up following transfusion, hgb at Fair level at this time,Will see how much this will hold in the next few days.He is really not a good candidate for any transplant ,given, his condition, and co morbid issues at this time. Prognosis is quite poor for Hepato-renal syndrome, let alone complicated by thrombocytopenia/anemia, and double vital organ failure.He has no real reserve as far as these organs are concerned.You may want to have a vince family talk with him, his , and doctors Patient resting in bed, labs reviewed, and fairly stable, slight drop in hgb, and plt, but overall stable in the last 24hrs.notes reviewed. Patient seen/resting in bed, labs reviewed, d/w primary team. Hgb dropped, but plt holding steady since replacement. Patient resting in bed, labs reviewed, rec stays the same.Replacement transfusion prn. i have spoken to patient/, and sister at [facility]. Patient seen/examined, resting in bed, c/o not eating much due to lack of appetite.Rec appetite enhancer. Patient seen, resting in bed, labs reviewed, and remain fair. Patient seen, resting in bed, labs, reviewed, INR 2+, PLT55,000.Will give some FFP today, and perhaps on sunday, to see if he can get his procedure done. Patient seen, resting in bed, labs reviewed, INR did not improve, following FFP yesterday , if at it was given. patient seen, resting in bed, labs reviewed, PLT, 46,000, no bleeding. If any procedure is intended, can give FFP+_ PLT.,or if any bleeding. Patient seen rthis am, resting in bed, labs reviewed, PT/INR ordered, post FFP transfusion, for possible procedure today.I do not think his INR can get to the desired level of i.4 due to damaged liver. I rec hang FFP during procedure, and PLT 1-2 units can even be given prior . Objective - Constitutional Vitals: Vital Signs - 12hr 01/06/18 01/06/18 01/06/18 22:25 22:30 22:45 Temperature 97.6 F 97.6 F 97.8 F Pulse Rate 66 64 68 Pulse Rate [ Apical] Respiratory 18 18 18 Rate Blood Pressure 104/67 104/67 104/65 Blood Pressure [Left] O2 Sat by Pulse 96 94 96 Oximetry 01/06/18 01/06/18 01/06/18 22:57 23:15 23:45 Temperature 97.8 F 97.8 F Pulse Rate 61 64 64 Pulse Rate [ Apical] Respiratory 18 18 Rate Blood Pressure 105/64 104/67 Blood Pressure [Left] O2 Sat by Pulse 96 96 Oximetry 01/07/18 01/07/18 01/07/18 00:15 04:30 09:06 Temperature 98.1 F 97.6 F Pulse Rate 67 67 Pulse Rate [ 72 Apical] Respiratory 18 18 Rate Blood Pressure 93/58 Blood Pressure 95/62 [Left] O2 Sat by Pulse 97 90 96 Oximetry General appearance: Present: no acute distress, well-nourished - EENT Eyes: PERRL, EOM intact ENT: hearing intact, clear oral mucosa Ears: bilateral: normal - Neck Neck: supple, normal ROM - Respiratory Respiratory effort: normal Respiratory: bilateral: CTA - Breasts Breasts: deferred - Cardiovascular Rhythm: regular Heart Sounds: Present: S1 & S2. Absent: gallop, rub Extremities: pulses intact, No edema, normal color, Full ROM - Gastrointestinal General gastrointestinal: Present: soft, non-tender, non-distended, normal bowel sounds Rectal Exam: deferred - Genitourinary Male genitourinary: deferred - Integumentary Integumentary: clear, warm, dry - Musculoskeletal Musculoskeletal: 1, strength equal bilaterally - Neurologic Neurologic: moves all extremities - Psychiatric Psychiatric: appropriate mood/affect - Labs CBC & Chem 7: 01/06/18 02:35 01/06/18 02:35
[2018-01-07 10:03] LABS: INR 1.73 (0.87-1.13)
[2018-01-07 10:04] LABS: Partial Thromboplastin Time 41.2 Sec. (24.2-36.6)
[2018-01-07] MEDS: CEPHULAC PO SCH ×3 (10:54→23:21)
[2018-01-07] MEDS: XIFAXAN PO SCH ×2 (10:54→23:19)
[2018-01-07] MEDS: THERAGRAN-M Tab PO SCH (10:55)
[2018-01-07] MEDS: PERCOCET 5/325 PO PRN (10:55)
[2018-01-07] MEDS: LOPRESSOR PO SCH ×2 (10:57→23:25)
--- NOTE | 2018-01-07 13:12 | Progress Note ---
Assessment and Plan Sepsis, possibly SBP Acute encephalopathy Severe anemia Lactic acidosis, multifactorial Cirrhosis with esophageal varices Rectal bleeding Coagulopathy Metabolic acidosis, multifactorial Respiratory alkalosis Nonoliguric CARMEN secondary to prerenal azotemia due to hypoperfusion ATN vs HRS Moderate protein calorie malnutrition (Spoke at length with his regarding his confusion which i explained was multifactorial re: azotemia, hyperammonemia, recent critical illness etc.) - change percocet to oxycodone re: acetaminophen - Thoracentesis ordered - will work on INR (Vitamin K +/- FFP's) - continue HD/UF per nephrology prescription (should also reduce pulmonary volume overload) - continue conservative volume management at this point now off vasopressors - continue prn H&H; Transfuse PRBC's for Hb < 7.0 (or as per bending roll hand) - prn analgesia - 2D ECHO with EF 40-45%; no overt pulm HTN - s/p antibiotic course for sepsis - continue Aspiration precautions - enteral nutrition as tolerated (s/p small bowel feeding tube) - continue chronic home medications, including rifaximin and midodrine - Avoid nephrotoxics and adjust all medications for GFR - GI evaluation ongoing; octreotide if signs of active bleeding; continue lactulose but frequency reduced to bid - continue PPI therapy per GI recs - paracentesis prn per GI recs - Follow up cultures (NGTD) - SCDs for VTE prophylaxis in view of GIB and coagulopathy - Supportive transfusions - Nutrition consult placed - PT/OT consult placed - continue to monitor closely on telemetry ..... 35' Subjective Date of service: 01/07/18 Principal diagnosis: CARMEN on CKD; Acute Encephalopathy; Sepsis Syndrome; Anemia Interval history: Patient is seen today for: CARMEN on CKD; Acute Encephalopathy; Sepsis Syndrome; Anemia Seen and examined at bedside; 24hour events reviewed; nursing and respiratory care staff consulted; no adverse overnight events reported to me; resting in bed ; dialysis ongoing; no N/V/F/C Objective Vital Signs - 12hr 01/07/18 01/07/18 01/07/18 04:30 04:40 08:50 Temperature 97.6 F 97.5 F L Pulse Rate 67 71 Pulse Rate [ Apical] Respiratory 18 18 20 Rate Blood Pressure 95/62 103/59 Blood Pressure 95/62 [Left] O2 Sat by Pulse 90 95 Oximetry 01/07/18 01/07/18 01/07/18 09:06 10:00 10:55 Temperature Pulse Rate Pulse Rate [ 72 Apical] Respiratory 20 Rate Blood Pressure Blood Pressure [Left] O2 Sat by Pulse 96 96 Oximetry 01/07/18 01/07/18 01/07/18 10:57 11:50 12:00 Temperature 97.5 F L Pulse Rate 73 69 70 Pulse Rate [ Apical] Respiratory 20 Rate Blood Pressure 103/54 100/55 92/53 Blood Pressure [Left] O2 Sat by Pulse Oximetry 01/07/18 12:15 Temperature Pulse Rate 72 Pulse Rate [ Apical] Respiratory Rate Blood Pressure 94/56 Blood Pressure [Left] O2 Sat by Pulse Oximetry Constitutional: alert, other (chronically ill looking elderly AAM, normocephalic and atraumatic) Eyes: non-icteric ENT: oropharynx moist, other (mallampati 2) Neck: supple, no lymphadenopathy, no JVD, other (no thyromegaly) Effort: normal Ascultation: Bilateral: diminished breath sounds (bases), rhonchi Percussion: Bilateral: dull (bases) Cardiovascular: regular rate and rhythm, other (S1,S2, no murmurms, gallops or rubs) Gastrointestinal: normoactive bowel sounds, soft, non-tender, other (distended) Integumentary: rash Extremities: no cyanosis, no edema, pulses normal, no ischemia or petechiae, cool Neurologic: non-focal exam, pupils equal and round, motor strength normal and ( weak), other (alert, awake) Psychiatric: other (normal affect, confusion) CBC and BMP: 01/06/18 02:35 01/06/18 02:35 ABG, PT/INR, D-dimer: ABG POC ABG pH 7.452 (7.35-7.45) H 12/12/17 09:13 POC ABG pCO2 22.2 (35-45) L 12/12/17 09:13 POC ABG pO2 75 (80-105) L 12/12/17 09:13 POC ABG HCO3 15.5 12/12/17 09:13 POC ABG Total CO2 16 12/12/17 09:13 POC ABG O2 Sat 96 12/12/17 09:13 PT/INR, D-dimer PT 21.3 Sec. (12.2-14.9) H 01/07/18 09:29 INR 1.73 (0.87-1.13) H 01/07/18 09:29 D-Dimer 1215.06 ng/mlDDU (0-234) H 12/12/17 19:50 Abnormal lab findings: Abnormal Labs 12/10/17 12/10/17 12/10/17 13:14 13:14 23:05 RBC 2.31 L Hgb 7.3 L Hct 21.5 L MCV MCH MCHC RDW 17.7 H Plt Count 61 L Lymph % (Auto) [place] % (Auto) Baso % (Auto) Lymph # [place] # Baso # Seg Neutrophils % Seg Neuts % (Manual) 81.0 H Lymphocytes % (Manual) 11.0 L Eosinophils % (Manual) Basophils % (Manual) Lymphocytes # (Manual) 0.6 L Eosinophils # (Manual) Basophils # (Manual) PT INR APTT Fibrinogen D-Dimer POC ABG pH POC ABG pCO2 POC ABG pO2 Sodium 136 L Potassium 5.2 H Chloride Carbon Dioxide 15 L BUN 47 H Creatinine 5.2 H Glucose 127 H POC Glucose Lactic Acid Calcium Phosphorus Magnesium TIBC Ferritin Total Bilirubin 3.50 H Direct Bilirubin AST 71 H Ammonia Lactate Dehydrogenase NT-Pro-B Natriuret Pep Total Protein Albumin 2.6 L Lipase Vitamin B12 Urine WBC (Auto) 10.0 H Urine Creatinine Ur Creatinine 24 Hour Fluid Glucose Fluid Total Protein Digoxin Crossmatch 12/10/17 12/10/17 12/10/17 23:14 23:14 23:14 RBC Hgb Hct MCV MCH MCHC RDW Plt Count Lymph % (Auto) [place] % (Auto) Baso % (Auto) Lymph # [place] # Baso # Seg Neutrophils % Seg Neuts % (Manual) Lymphocytes % (Manual) Eosinophils % (Manual) Basophils % (Manual) Lymphocytes # (Manual) Eosinophils # (Manual) Basophils # (Manual) PT INR APTT Fibrinogen D-Dimer POC ABG pH POC ABG pCO2 POC ABG pO2 Sodium Potassium Chloride Carbon Dioxide BUN Creatinine Glucose POC Glucose Lactic Acid 2.40 H* Calcium Phosphorus Magnesium TIBC Ferritin Total Bilirubin Direct Bilirubin AST Ammonia 134.0 H Lactate Dehydrogenase NT-Pro-B Natriuret Pep 9558 H Total Protein Albumin Lipase Vitamin B12 Urine WBC (Auto) Urine Creatinine Ur Creatinine 24 Hour Fluid Glucose Fluid Total Protein Digoxin Crossmatch 12/10/17 12/11/17 12/11/17 23:14 00:29 03:33 RBC Hgb Hct MCV MCH MCHC RDW Plt Count Lymph % (Auto) [place] % (Auto) Baso % (Auto) Lymph # [place] # Baso # Seg Neutrophils % Seg Neuts % (Manual) Lymphocytes % (Manual) Eosinophils % (Manual) Basophils % (Manual) Lymphocytes # (Manual) Eosinophils # (Manual) Basophils # (Manual) PT INR APTT Fibrinogen D-Dimer POC ABG pH POC ABG pCO2 POC ABG pO2 Sodium Potassium Chloride Carbon Dioxide BUN Creatinine Glucose POC Glucose Lactic Acid 2.80 H* 3.00 H* Calcium Phosphorus Magnesium TIBC Ferritin Total Bilirubin Direct Bilirubin AST Ammonia Lactate Dehydrogenase NT-Pro-B Natriuret Pep Total Protein Albumin Lipase 7 L Vitamin B12 Urine WBC (Auto) Urine Creatinine Ur Creatinine 24 Hour Fluid Glucose Fluid Total Protein Digoxin Crossmatch 12/11/17 12/11/17 12/11/17 04:08 04:34 04:34 RBC Hgb Hct MCV MCH MCHC RDW Plt Count Lymph % (Auto) [place] % (Auto) Baso % (Auto) Lymph # [place] # Baso # Seg Neutrophils % Seg Neuts % (Manual) Lymphocytes % (Manual) Eosinophils % (Manual) Basophils % (Manual) Lymphocytes # (Manual) Eosinophils # (Manual) Basophils # (Manual) PT 19.1 H INR 1.51 H APTT 45.7 H Fibrinogen D-Dimer POC ABG pH POC ABG pCO2 POC ABG pO2 Sodium Potassium Chloride Carbon Dioxide BUN Creatinine Glucose POC Glucose 113 H Lactic Acid 3.10 H* Calcium Phosphorus Magnesium TIBC Ferritin Total Bilirubin Direct Bilirubin AST Ammonia Lactate Dehydrogenase NT-Pro-B Natriuret Pep Total Protein Albumin Lipase Vitamin B12 Urine WBC (Auto) Urine Creatinine Ur Creatinine 24 Hour Fluid Glucose Fluid Total Protein Digoxin Crossmatch 12/11/17 12/11/17 12/11/17 06:46 07:26 09:42 RBC Hgb Hct MCV MCH MCHC RDW Plt Count Lymph % (Auto) [place] % (Auto) Baso % (Auto) Lymph # [place] # Baso # Seg Neutrophils % Seg Neuts % (Manual) Lymphocytes % (Manual) Eosinophils % (Manual) Basophils % (Manual) Lymphocytes # (Manual) Eosinophils # (Manual) Basophils # (Manual) PT INR APTT Fibrinogen D-Dimer POC ABG pH POC ABG pCO2 POC ABG pO2 Sodium Potassium Chloride Carbon Dioxide BUN Creatinine Glucose POC Glucose Lactic Acid 2.70 H* 2.80 H* 2.90 H* Calcium Phosphorus Magnesium TIBC Ferritin Total Bilirubin Direct Bilirubin AST Ammonia Lactate Dehydrogenase NT-Pro-B Natriuret Pep Total Protein Albumin Lipase Vitamin B12 Urine WBC (Auto) Urine Creatinine Ur Creatinine 24 Hour Fluid Glucose Fluid Total Protein Digoxin Crossmatch 12/11/17 12/11/17 12/11/17 13:12 14:06 23:14 RBC Hgb Hct MCV MCH MCHC RDW Plt Count Lymph % (Auto) [place] % (Auto) Baso % (Auto) Lymph # [place] # Baso # Seg Neutrophils % Seg Neuts % (Manual) Lymphocytes % (Manual) Eosinophils % (Manual) Basophils % (Manual) Lymphocytes # (Manual) Eosinophils # (Manual) Basophils # (Manual) PT INR APTT Fibrinogen D-Dimer POC ABG pH POC ABG pCO2 POC ABG pO2 Sodium Potassium Chloride Carbon Dioxide BUN Creatinine Glucose POC Glucose Lactic Acid 3.10 H* 3.10 H* 3.70 H* Calcium Phosphorus Magnesium TIBC Ferritin Total Bilirubin Direct Bilirubin AST Ammonia Lactate Dehydrogenase NT-Pro-B Natriuret Pep Total Protein Albumin Lipase Vitamin B12 Urine WBC (Auto) Urine Creatinine Ur Creatinine 24 Hour Fluid Glucose Fluid Total Protein Digoxin Crossmatch 12/11/17 12/12/17 12/12/17 23:23 03:41 03:41 RBC 2.17 L Hgb 7.0 L Hct 19.9 L* MCV MCH 33 H MCHC 35 H RDW 17.7 H Plt Count 62 L Lymph % (Auto) [place] % (Auto) Baso % (Auto) Lymph # [place] # Baso # Seg Neutrophils % Seg Neuts % (Manual) 91.0 H Lymphocytes % (Manual) 3.0 L Eosinophils % (Manual) Basophils % (Manual) Lymphocytes # (Manual) 0.2 L Eosinophils # (Manual) Basophils # (Manual) PT INR APTT Fibrinogen D-Dimer POC ABG pH POC ABG pCO2 POC ABG pO2 Sodium Potassium 5.4 H Chloride Carbon Dioxide 12 L BUN 47 H Creatinine 4.5 H Glucose 103 H POC Glucose Lactic Acid Calcium 8.0 L Phosphorus Magnesium TIBC Ferritin Total Bilirubin 3.60 H Direct Bilirubin AST 58 H Ammonia Lactate Dehydrogenase NT-Pro-B Natriuret Pep Total Protein 5.9 L Albumin 2.5 L Lipase Vitamin B12 Urine WBC (Auto) Urine Creatinine Ur Creatinine 24 Hour Fluid Glucose Fluid Total Protein Digoxin Crossmatch See Detail 12/12/17 12/12/17 12/12/17 07:00 09:13 17:55 RBC 2.06 L Hgb 6.6 L Hct 18.6 L* MCV MCH MCHC 36 H RDW 17.8 H Plt Count 77 L Lymph % (Auto) [place] % (Auto) Baso % (Auto) Lymph # [place] # Baso # Seg Neutrophils % Seg Neuts % (Manual) Lymphocytes % (Manual) Eosinophils % (Manual) Basophils % (Manual) Lymphocytes # (Manual) Eosinophils # (Manual) Basophils # (Manual) PT INR APTT Fibrinogen D-Dimer POC ABG pH 7.452 H POC ABG pCO2 22.2 L POC ABG pO2 75 L Sodium Potassium Chloride Carbon Dioxide BUN Creatinine Glucose POC Glucose 119 H Lactic Acid Calcium Phosphorus Magnesium TIBC Ferritin Total Bilirubin Direct Bilirubin AST Ammonia Lactate Dehydrogenase NT-Pro-B Natriuret Pep Total Protein Albumin Lipase Vitamin B12 Urine WBC (Auto) Urine Creatinine Ur Creatinine 24 Hour Fluid Glucose Fluid Total Protein Digoxin Crossmatch 12/12/17 12/12/17 12/12/17 19:50 19:50 19:50 RBC 2.40 L Hgb 7.8 L Hct 21.3 L MCV MCH 33 H MCHC 37 H RDW 16.1 H Plt Count 99 L Lymph % (Auto) [place] % (Auto) Baso % (Auto) Lymph # [place] # Baso # Seg Neutrophils % Seg Neuts % (Manual) 87.0 H Lymphocytes % (Manual) 5.0 L Eosinophils % (Manual) Basophils % (Manual) Lymphocytes # (Manual) 0.3 L Eosinophils # (Manual) Basophils # (Manual) PT 21.9 H INR 1.79 H APTT 41.5 H Fibrinogen 128 L D-Dimer 1215.06 H POC ABG pH POC ABG pCO2 POC ABG pO2 Sodium Potassium Chloride Carbon Dioxide BUN Creatinine Glucose POC Glucose Lactic Acid Calcium Phosphorus Magnesium TIBC Ferritin Total Bilirubin 4.10 H Direct Bilirubin 1.6 H AST Ammonia Lactate Dehydrogenase NT-Pro-B Natriuret Pep Total Protein Albumin Lipase Vitamin B12 Urine WBC (Auto) Urine Creatinine Ur Creatinine 24 Hour Fluid Glucose Fluid Total Protein Digoxin Crossmatch 12/12/17 12/12/17 12/12/17 19:50 19:50 23:46 RBC Hgb Hct MCV MCH MCHC RDW Plt Count Lymph % (Auto) [place] % (Auto) Baso % (Auto) Lymph # [place] # Baso # Seg Neutrophils % Seg Neuts % (Manual) Lymphocytes % (Manual) Eosinophils % (Manual) Basophils % (Manual) Lymphocytes # (Manual) Eosinophils # (Manual) Basophils # (Manual) PT INR APTT Fibrinogen D-Dimer POC ABG pH POC ABG pCO2 POC ABG pO2 Sodium Potassium Chloride Carbon Dioxide BUN Creatinine Glucose POC Glucose 110 H Lactic Acid Calcium Phosphorus Magnesium TIBC Ferritin Total Bilirubin Direct Bilirubin AST Ammonia Lactate Dehydrogenase 213 H NT-Pro-B Natriuret Pep Total Protein Albumin Lipase Vitamin B12 1465 H Urine WBC (Auto) Urine Creatinine Ur Creatinine 24 Hour Fluid Glucose Fluid Total Protein Digoxin Crossmatch 12/13/17 12/13/17 12/13/17 04:00 04:00 05:12 RBC 2.32 L Hgb 7.4 L Hct 20.8 L MCV MCH MCHC 36 H RDW 16.1 H Plt Count 134 L Lymph % (Auto) 13.1 L [place] % (Auto) 7.9 H Baso % (Auto) Lymph # 0.8 L [place] # Baso # Seg Neutrophils % 76.3 H Seg Neuts % (Manual) Lymphocytes % (Manual) Eosinophils % (Manual) Basophils % (Manual) Lymphocytes # (Manual) Eosinophils # (Manual) Basophils # (Manual) PT INR APTT Fibrinogen D-Dimer POC ABG pH POC ABG pCO2 POC ABG pO2 Sodium Potassium Chloride Carbon Dioxide 21 L D BUN 48 H Creatinine 4.6 H Glucose 104 H POC Glucose 134 H Lactic Acid Calcium 8.1 L Phosphorus Magnesium TIBC Ferritin Total Bilirubin 4.70 H Direct Bilirubin AST 43 H Ammonia Lactate Dehydrogenase NT-Pro-B Natriuret Pep Total Protein 5.8 L Albumin 3.1 L Lipase Vitamin B12 Urine WBC (Auto) Urine Creatinine Ur Creatinine 24 Hour Fluid Glucose Fluid Total Protein Digoxin Crossmatch 12/13/17 12/13/17 12/13/17 08:45 12:25 14:03 RBC Hgb Hct MCV MCH MCHC RDW Plt Count Lymph % (Auto) [place] % (Auto) Baso % (Auto) Lymph # [place] # Baso # Seg Neutrophils % Seg Neuts % (Manual) Lymphocytes % (Manual) Eosinophils % (Manual) Basophils % (Manual) Lymphocytes # (Manual) Eosinophils # (Manual) Basophils # (Manual) PT 20.5 H INR 1.65 H APTT Fibrinogen D-Dimer POC ABG pH POC ABG pCO2 POC ABG pO2 Sodium Potassium Chloride Carbon Dioxide BUN Creatinine Glucose POC Glucose 112 H Lactic Acid 3.70 H* Calcium Phosphorus Magnesium TIBC Ferritin Total Bilirubin Direct Bilirubin AST Ammonia Lactate Dehydrogenase NT-Pro-B Natriuret Pep Total Protein Albumin Lipase Vitamin B12 Urine WBC (Auto) Urine Creatinine Ur Creatinine 24 Hour Fluid Glucose Fluid Total Protein Digoxin Crossmatch 12/13/17 12/13/17 12/13/17 14:03 18:52 21:09 RBC Hgb Hct MCV MCH MCHC RDW Plt Count Lymph % (Auto) [place] % (Auto) Baso % (Auto) Lymph # [place] # Baso # Seg Neutrophils % Seg Neuts % (Manual) Lymphocytes % (Manual) Eosinophils % (Manual) Basophils % (Manual) Lymphocytes # (Manual) Eosinophils # (Manual) Basophils # (Manual) PT INR APTT Fibrinogen D-Dimer POC ABG pH POC ABG pCO2 POC ABG pO2 Sodium Potassium Chloride Carbon Dioxide BUN Creatinine Glucose POC Glucose 110 H Lactic Acid 4.00 H* Calcium Phosphorus Magnesium TIBC Ferritin Total Bilirubin Direct Bilirubin AST Ammonia 87.0 H Lactate Dehydrogenase NT-Pro-B Natriuret Pep Total Protein Albumin Lipase Vitamin B12 Urine WBC (Auto) Urine Creatinine Ur Creatinine 24 Hour Fluid Glucose Fluid Total Protein Digoxin Crossmatch 12/14/17 12/14/17 12/14/17 00:25 03:30 03:30 RBC 2.29 L Hgb 7.3 L Hct 20.7 L MCV MCH MCHC 35 H RDW 16.2 H Plt Count 84 L Lymph % (Auto) 12.8 L [place] % (Auto) 8.3 H Baso % (Auto) Lymph # 0.6 L [place] # Baso # Seg Neutrophils % 77.2 H Seg Neuts % (Manual) Lymphocytes % (Manual) Eosinophils % (Manual) Basophils % (Manual) Lymphocytes # (Manual) Eosinophils # (Manual) Basophils # (Manual) PT INR APTT Fibrinogen D-Dimer POC ABG pH POC ABG pCO2 POC ABG pO2 Sodium Potassium Chloride 96.1 L Carbon Dioxide BUN 48 H Creatinine 4.6 H Glucose 125 H POC Glucose 131 H Lactic Acid Calcium 7.9 L Phosphorus Magnesium TIBC Ferritin Total Bilirubin 4.70 H Direct Bilirubin AST 45 H Ammonia Lactate Dehydrogenase NT-Pro-B Natriuret Pep Total Protein 6.1 L Albumin 3.4 L Lipase Vitamin B12 Urine WBC (Auto) Urine Creatinine Ur Creatinine 24 Hour Fluid Glucose Fluid Total Protein Digoxin Crossmatch 12/14/17 12/14/17 12/14/17 05:31 12:26 12:55 RBC Hgb Hct MCV MCH MCHC RDW Plt Count Lymph % (Auto) [place] % (Auto) Baso % (Auto) Lymph # [place] # Baso # Seg Neutrophils % Seg Neuts % (Manual) Lymphocytes % (Manual) Eosinophils % (Manual) Basophils % (Manual) Lymphocytes # (Manual) Eosinophils # (Manual) Basophils # (Manual) PT INR APTT Fibrinogen D-Dimer POC ABG pH POC ABG pCO2 POC ABG pO2 Sodium Potassium Chloride Carbon Dioxide BUN Creatinine Glucose POC Glucose 125 H 117 H Lactic Acid 3.40 H* Calcium Phosphorus Magnesium TIBC Ferritin Total Bilirubin Direct Bilirubin AST Ammonia Lactate Dehydrogenase NT-Pro-B Natriuret Pep Total Protein Albumin Lipase Vitamin B12 Urine WBC (Auto) Urine Creatinine Ur Creatinine 24 Hour Fluid Glucose Fluid Total Protein Digoxin Crossmatch 12/14/17 12/14/17 12/14/17 15:26 17:26 18:07 RBC Hgb Hct MCV MCH MCHC RDW Plt Count Lymph % (Auto) [place] % (Auto) Baso % (Auto) Lymph # [place] # Baso # Seg Neutrophils % Seg Neuts % (Manual) Lymphocytes % (Manual) Eosinophils % (Manual) Basophils % (Manual) Lymphocytes # (Manual) Eosinophils # (Manual) Basophils # (Manual) PT INR APTT Fibrinogen D-Dimer POC ABG pH POC ABG pCO2 POC ABG pO2 Sodium Potassium Chloride Carbon Dioxide BUN Creatinine Glucose POC Glucose 143 H Lactic Acid 4.00 H* 3.90 H* Calcium Phosphorus Magnesium TIBC Ferritin Total Bilirubin Direct Bilirubin AST Ammonia Lactate Dehydrogenase NT-Pro-B Natriuret Pep Total Protein Albumin Lipase Vitamin B12 Urine WBC (Auto) Urine Creatinine Ur Creatinine 24 Hour Fluid Glucose Fluid Total Protein Digoxin Crossmatch 12/14/17 12/15/17 12/15/17 Unknown 00:08 04:51 RBC 2.27 L Hgb 7.3 L Hct 20.7 L MCV MCH MCHC 35 H RDW 16.1 H Plt Count 92 L Lymph % (Auto) 12.5 L [place] % (Auto) 10.4 H Baso % (Auto) Lymph # 0.6 L [place] # Baso # Seg Neutrophils % 74.7 H Seg Neuts % (Manual) Lymphocytes % (Manual) Eosinophils % (Manual) Basophils % (Manual) Lymphocytes # (Manual) Eosinophils # (Manual) Basophils # (Manual) PT INR APTT Fibrinogen D-Dimer POC ABG pH POC ABG pCO2 POC ABG pO2 Sodium Potassium Chloride Carbon Dioxide BUN Creatinine Glucose POC Glucose 124 H Lactic Acid Calcium Phosphorus Magnesium TIBC Ferritin Total Bilirubin Direct Bilirubin AST Ammonia Lactate Dehydrogenase NT-Pro-B Natriuret Pep Total Protein Albumin Lipase Vitamin B12 Urine WBC (Auto) Urine Creatinine 122.5 H Ur Creatinine 24 Hour 0.3 L Fluid Glucose Fluid Total Protein Digoxin Crossmatch 12/15/17 12/15/17 12/15/17 04:51 04:51 05:56 RBC Hgb Hct MCV MCH MCHC RDW Plt Count Lymph % (Auto) [place] % (Auto) Baso % (Auto) Lymph # [place] # Baso # Seg Neutrophils % Seg Neuts % (Manual) Lymphocytes % (Manual) Eosinophils % (Manual) Basophils % (Manual) Lymphocytes # (Manual) Eosinophils # (Manual) Basophils # (Manual) PT INR APTT Fibrinogen D-Dimer POC ABG pH POC ABG pCO2 POC ABG pO2 Sodium Potassium 3.5 L Chloride 92.6 L Carbon Dioxide BUN 50 H Creatinine 4.8 H Glucose 141 H POC Glucose 143 H Lactic Acid Calcium 7.9 L Phosphorus Magnesium TIBC Ferritin Total Bilirubin 3.60 H Direct Bilirubin AST 44 H Ammonia 24.0 L Lactate Dehydrogenase NT-Pro-B Natriuret Pep Total Protein 6.1 L Albumin 3.8 L Lipase Vitamin B12 Urine WBC (Auto) Urine Creatinine Ur Creatinine 24 Hour Fluid Glucose Fluid Total Protein Digoxin Crossmatch 12/15/17 12/15/17 12/16/17 12:17 23:10 07:04 RBC Hgb Hct MCV MCH MCHC RDW Plt Count Lymph % (Auto) [place] % (Auto) Baso % (Auto) Lymph # [place] # Baso # Seg Neutrophils % Seg Neuts % (Manual) Lymphocytes % (Manual) Eosinophils % (Manual) Basophils % (Manual) Lymphocytes # (Manual) Eosinophils # (Manual) Basophils # (Manual) PT INR APTT Fibrinogen D-Dimer POC ABG pH POC ABG pCO2 POC ABG pO2 Sodium Potassium Chloride Carbon Dioxide BUN Creatinine Glucose POC Glucose 127 H 157 H 147 H Lactic Acid Calcium Phosphorus Magnesium TIBC Ferritin Total Bilirubin Direct Bilirubin AST Ammonia Lactate Dehydrogenase NT-Pro-B Natriuret Pep Total Protein Albumin Lipase Vitamin B12 Urine WBC (Auto) Urine Creatinine Ur Creatinine 24 Hour Fluid Glucose Fluid Total Protein Digoxin Crossmatch 12/16/17 12/16/17 12/16/17 11:35 12:37 12:37 RBC 2.21 L Hgb 6.9 L Hct 20.2 L MCV MCH MCHC RDW 16.2 H Plt Count 50 L Lymph % (Auto) [place] % (Auto) 9.7 H Baso % (Auto) Lymph # 0.7 L [place] # Baso # Seg Neutrophils % 73.1 H Seg Neuts % (Manual) Lymphocytes % (Manual) Eosinophils % (Manual) Basophils % (Manual) Lymphocytes # (Manual) Eosinophils # (Manual) Basophils # (Manual) PT INR APTT Fibrinogen D-Dimer POC ABG pH POC ABG pCO2 POC ABG pO2 Sodium Potassium Chloride 88.2 L Carbon Dioxide BUN 52 H Creatinine 5.5 H Glucose 107 H POC Glucose 134 H Lactic Acid Calcium 7.8 L Phosphorus Magnesium TIBC Ferritin Total Bilirubin 2.60 H Direct Bilirubin AST 49 H Ammonia Lactate Dehydrogenase NT-Pro-B Natriuret Pep Total Protein Albumin 3.6 L Lipase Vitamin B12 Urine WBC (Auto) Urine Creatinine Ur Creatinine 24 Hour Fluid Glucose Fluid Total Protein Digoxin Crossmatch 12/16/17 12/16/17 12/16/17 18:06 20:45 23:34 RBC Hgb Hct MCV MCH MCHC RDW Plt Count Lymph % (Auto) [place] % (Auto) Baso % (Auto) Lymph # [place] # Baso # Seg Neutrophils % Seg Neuts % (Manual) Lymphocytes % (Manual) Eosinophils % (Manual) Basophils % (Manual) Lymphocytes # (Manual) Eosinophils # (Manual) Basophils # (Manual) PT INR APTT Fibrinogen D-Dimer POC ABG pH POC ABG pCO2 POC ABG pO2 Sodium Potassium Chloride Carbon Dioxide BUN Creatinine Glucose POC Glucose 133 H 139 H Lactic Acid Calcium Phosphorus Magnesium TIBC Ferritin Total Bilirubin Direct Bilirubin AST Ammonia Lactate Dehydrogenase NT-Pro-B Natriuret Pep Total Protein Albumin Lipase Vitamin B12 Urine WBC (Auto) Urine Creatinine Ur Creatinine 24 Hour Fluid Glucose Fluid Total Protein Digoxin Crossmatch See Detail 12/17/17 12/17/17 12/17/17 05:27 05:27 06:11 RBC 2.10 L Hgb 6.6 L Hct 19.2 L* MCV MCH MCHC 35 H RDW 16.5 H Plt Count 65 L Lymph % (Auto) 12.6 L [place] % (Auto) 9.6 H Baso % (Auto) Lymph # 0.7 L [place] # Baso # Seg Neutrophils % 75.8 H Seg Neuts % (Manual) Lymphocytes % (Manual) Eosinophils % (Manual) Basophils % (Manual) Lymphocytes # (Manual) Eosinophils # (Manual) Basophils # (Manual) PT INR APTT Fibrinogen D-Dimer POC ABG pH POC ABG pCO2 POC ABG pO2 Sodium 135 L Potassium 3.4 L Chloride 84.9 L Carbon Dioxide 33 H BUN 53 H Creatinine 5.9 H Glucose POC Glucose 110 H Lactic Acid Calcium 7.7 L Phosphorus Magnesium TIBC Ferritin Total Bilirubin 2.70 H Direct Bilirubin AST 50 H Ammonia Lactate Dehydrogenase NT-Pro-B Natriuret Pep Total Protein 6.2 L Albumin 3.7 L Lipase Vitamin B12 Urine WBC (Auto) Urine Creatinine Ur Creatinine 24 Hour Fluid Glucose Fluid Total Protein Digoxin Crossmatch 12/17/17 12/18/17 12/18/17 09:34 00:05 05:21 RBC 3.35 L Hgb 10.3 L D Hct 30.4 L D MCV MCH MCHC RDW 16.2 H Plt Count 57 L Lymph % (Auto) 8.0 L [place] % (Auto) 10.9 H Baso % (Auto) Lymph # 0.6 L [place] # Baso # Seg Neutrophils % 80.2 H Seg Neuts % (Manual) Lymphocytes % (Manual) Eosinophils % (Manual) Basophils % (Manual) Lymphocytes # (Manual) Eosinophils # (Manual) Basophils # (Manual) PT 23.9 H INR 1.99 H APTT Fibrinogen D-Dimer POC ABG pH POC ABG pCO2 POC ABG pO2 Sodium Potassium Chloride Carbon Dioxide BUN Creatinine Glucose POC Glucose 132 H Lactic Acid Calcium Phosphorus Magnesium TIBC Ferritin Total Bilirubin Direct Bilirubin AST Ammonia Lactate Dehydrogenase NT-Pro-B Natriuret Pep Total Protein Albumin Lipase Vitamin B12 Urine WBC (Auto) Urine Creatinine Ur Creatinine 24 Hour Fluid Glucose Fluid Total Protein Digoxin Crossmatch 12/18/17 12/18/17 12/18/17 05:21 06:16 11:11 RBC Hgb Hct MCV MCH MCHC RDW Plt Count Lymph % (Auto) [place] % (Auto) Baso % (Auto) Lymph # [place] # Baso # Seg Neutrophils % Seg Neuts % (Manual) Lymphocytes % (Manual) Eosinophils % (Manual) Basophils % (Manual) Lymphocytes # (Manual) Eosinophils # (Manual) Basophils # (Manual) PT 34.7 H INR 3.17 H APTT Fibrinogen D-Dimer POC ABG pH POC ABG pCO2 POC ABG pO2 Sodium Potassium 3.5 L Chloride 87.1 L Carbon Dioxide BUN 35 H Creatinine 4.3 H Glucose 110 H POC Glucose 116 H Lactic Acid Calcium 8.1 L Phosphorus Magnesium TIBC Ferritin Total Bilirubin 5.10 H Direct Bilirubin AST 56 H Ammonia Lactate Dehydrogenase NT-Pro-B Natriuret Pep Total Protein Albumin Lipase Vitamin B12 Urine WBC (Auto) Urine Creatinine Ur Creatinine 24 Hour Fluid Glucose Fluid Total Protein Digoxin Crossmatch 12/18/17 12/18/17 12/18/17 13:10 17:52 22:04 RBC Hgb Hct MCV MCH MCHC RDW Plt Count Lymph % (Auto) [place] % (Auto) Baso % (Auto) Lymph # [place] # Baso # Seg Neutrophils % Seg Neuts % (Manual) Lymphocytes % (Manual) Eosinophils % (Manual) Basophils % (Manual) Lymphocytes # (Manual) Eosinophils # (Manual) Basophils # (Manual) PT 25.9 H INR 2.20 H APTT Fibrinogen D-Dimer POC ABG pH POC ABG pCO2 POC ABG pO2 Sodium Potassium Chloride Carbon Dioxide BUN Creatinine Glucose POC Glucose 114 H 108 H Lactic Acid Calcium Phosphorus Magnesium TIBC Ferritin Total Bilirubin Direct Bilirubin AST Ammonia Lactate Dehydrogenase NT-Pro-B Natriuret Pep Total Protein Albumin Lipase Vitamin B12 Urine WBC (Auto) Urine Creatinine Ur Creatinine 24 Hour Fluid Glucose Fluid Total Protein Digoxin Crossmatch 12/19/17 12/19/17 12/19/17 05:55 05:55 10:20 RBC 2.85 L Hgb 9.1 L Hct 25.7 L MCV MCH MCHC 35 H RDW 16.4 H Plt Count 61 L Lymph % (Auto) [place] % (Auto) Baso % (Auto) Lymph # [place] # Baso # Seg Neutrophils % Seg Neuts % (Manual) Lymphocytes % (Manual) Eosinophils % (Manual) Basophils % (Manual) Lymphocytes # (Manual) Eosinophils # (Manual) Basophils # (Manual) PT INR APTT Fibrinogen D-Dimer POC ABG pH POC ABG pCO2 POC ABG pO2 Sodium Potassium Chloride 94.5 L Carbon Dioxide BUN 27 H Creatinine 3.6 H Glucose POC Glucose 131 H Lactic Acid Calcium 8.2 L Phosphorus Magnesium TIBC Ferritin Total Bilirubin Direct Bilirubin AST Ammonia Lactate Dehydrogenase NT-Pro-B Natriuret Pep Total Protein Albumin Lipase Vitamin B12 Urine WBC (Auto) Urine Creatinine Ur Creatinine 24 Hour Fluid Glucose Fluid Total Protein Digoxin Crossmatch 12/19/17 12/21/17 12/21/17 11:46 05:26 05:26 RBC 2.60 L Hgb 8.4 L Hct 23.9 L MCV MCH MCHC 35 H RDW 16.2 H Plt Count 57 L Lymph % (Auto) 12.4 L [place] % (Auto) 10.7 H Baso % (Auto) Lymph # [place] # 1.0 H Baso # Seg Neutrophils % 74.8 H Seg Neuts % (Manual) Lymphocytes % (Manual) Eosinophils % (Manual) Basophils % (Manual) Lymphocytes # (Manual) Eosinophils # (Manual) Basophils # (Manual) PT 26.2 H INR 2.23 H APTT Fibrinogen D-Dimer POC ABG pH POC ABG pCO2 POC ABG pO2 Sodium Potassium Chloride Carbon Dioxide BUN Creatinine Glucose POC Glucose Lactic Acid Calcium Phosphorus Magnesium TIBC Ferritin Total Bilirubin Direct Bilirubin AST Ammonia Lactate Dehydrogenase NT-Pro-B Natriuret Pep Total Protein Albumin Lipase Vitamin B12 Urine WBC (Auto) Urine Creatinine Ur Creatinine 24 Hour Fluid Glucose Fluid Total Protein Digoxin 0.4 L Crossmatch 12/21/17 12/23/17 12/24/17 09:40 08:15 04:51 RBC 1.80 L Hgb 5.9 L* Hct 17.0 L* D MCV MCH 33 H MCHC 35 H RDW 16.5 H Plt Count 53 L Lymph % (Auto) [place] % (Auto) Baso % (Auto) Lymph # [place] # Baso # Seg Neutrophils % Seg Neuts % (Manual) Lymphocytes % (Manual) Eosinophils % (Manual) Basophils % (Manual) Lymphocytes # (Manual) Eosinophils # (Manual) Basophils # (Manual) PT 26.4 H 27.9 H INR 2.26 H 2.42 H APTT Fibrinogen D-Dimer POC ABG pH POC ABG pCO2 POC ABG pO2 Sodium Potassium Chloride Carbon Dioxide BUN Creatinine Glucose POC Glucose Lactic Acid Calcium Phosphorus Magnesium TIBC Ferritin Total Bilirubin Direct Bilirubin AST Ammonia Lactate Dehydrogenase NT-Pro-B Natriuret Pep Total Protein Albumin Lipase Vitamin B12 Urine WBC (Auto) Urine Creatinine Ur Creatinine 24 Hour Fluid Glucose Fluid Total Protein Digoxin Crossmatch 12/24/17 12/24/17 12/24/17 04:51 06:25 08:20 RBC Hgb Hct MCV MCH MCHC RDW Plt Count Lymph % (Auto) [place] % (Auto) Baso % (Auto) Lymph # [place] # Baso # Seg Neutrophils % Seg Neuts % (Manual) Lymphocytes % (Manual) Eosinophils % (Manual) Basophils % (Manual) Lymphocytes # (Manual) Eosinophils # (Manual) Basophils # (Manual) PT 40.8 H INR 3.87 H APTT Fibrinogen D-Dimer POC ABG pH POC ABG pCO2 POC ABG pO2 Sodium Potassium 3.5 L Chloride Carbon Dioxide BUN 21 H Creatinine 4.4 H Glucose POC Glucose Lactic Acid Calcium 8.1 L Phosphorus Magnesium TIBC Ferritin Total Bilirubin Direct Bilirubin AST Ammonia Lactate Dehydrogenase NT-Pro-B Natriuret Pep Total Protein Albumin Lipase Vitamin B12 Urine WBC (Auto) Urine Creatinine Ur Creatinine 24 Hour Fluid Glucose Fluid Total Protein Digoxin Crossmatch See Detail 12/24/17 12/24/17 12/25/17 19:21 19:21 05:27 RBC 2.31 L Hgb 7.3 L 7.4 L Hct 20.4 L 21.3 L MCV MCH MCHC 35 H RDW 15.9 H Plt Count 39 L Lymph % (Auto) [place] % (Auto) 10.8 H Baso % (Auto) Lymph # 0.9 L [place] # Baso # Seg Neutrophils % 71.9 H Seg Neuts % (Manual) Lymphocytes % (Manual) Eosinophils % (Manual) Basophils % (Manual) Lymphocytes # (Manual) Eosinophils # (Manual) Basophils # (Manual) PT 21.3 H INR 1.73 H APTT Fibrinogen D-Dimer POC ABG pH POC ABG pCO2 POC ABG pO2 Sodium Potassium Chloride Carbon Dioxide BUN Creatinine Glucose POC Glucose Lactic Acid Calcium Phosphorus Magnesium TIBC Ferritin Total Bilirubin Direct Bilirubin AST Ammonia Lactate Dehydrogenase NT-Pro-B Natriuret Pep Total Protein Albumin Lipase Vitamin B12 Urine WBC (Auto) Urine Creatinine Ur Creatinine 24 Hour Fluid Glucose Fluid Total Protein Digoxin Crossmatch 12/25/17 12/25/17 12/25/17 05:27 05:27 12:24 RBC Hgb Hct MCV MCH MCHC RDW Plt Count Lymph % (Auto) [place] % (Auto) Baso % (Auto) Lymph # [place] # Baso # Seg Neutrophils % Seg Neuts % (Manual) Lymphocytes % (Manual) Eosinophils % (Manual) Basophils % (Manual) Lymphocytes # (Manual) Eosinophils # (Manual) Basophils # (Manual) PT 22.1 H INR 1.81 H APTT Fibrinogen D-Dimer POC ABG pH POC ABG pCO2 POC ABG pO2 Sodium Potassium 3.5 L Chloride 96.7 L Carbon Dioxide BUN Creatinine 3.2 H Glucose POC Glucose 140 H Lactic Acid Calcium 8.1 L Phosphorus Magnesium TIBC Ferritin Total Bilirubin Direct Bilirubin AST Ammonia Lactate Dehydrogenase NT-Pro-B Natriuret Pep Total Protein Albumin Lipase Vitamin B12 Urine WBC (Auto) Urine Creatinine Ur Creatinine 24 Hour Fluid Glucose Fluid Total Protein Digoxin Crossmatch 12/26/17 12/26/17 12/27/17 05:59 05:59 06:34 RBC 2.01 L 2.52 L Hgb 6.6 L 8.2 L Hct 18.6 L* 23.2 L MCV MCH 33 H MCHC 35 H 35 H RDW 16.6 H 15.3 H Plt Count 45 L 39 L Lymph % (Auto) 11.6 L [place] % (Auto) 10.3 H 11.2 H Baso % (Auto) Lymph # 1.0 L 0.7 L [place] # Baso # Seg Neutrophils % 72.2 H 75.4 H Seg Neuts % (Manual) Lymphocytes % (Manual) Eosinophils % (Manual) Basophils % (Manual) Lymphocytes # (Manual) Eosinophils # (Manual) Basophils # (Manual) PT INR APTT Fibrinogen D-Dimer POC ABG pH POC ABG pCO2 POC ABG pO2 Sodium Potassium 3.3 L Chloride Carbon Dioxide BUN Creatinine 3.8 H Glucose 110 H POC Glucose Lactic Acid Calcium Phosphorus 2.40 L Magnesium 1.40 L TIBC Ferritin Total Bilirubin 7.10 H Direct Bilirubin AST 73 H Ammonia Lactate Dehydrogenase NT-Pro-B Natriuret Pep Total Protein Albumin 3.5 L Lipase Vitamin B12 Urine WBC (Auto) Urine Creatinine Ur Creatinine 24 Hour Fluid Glucose Fluid Total Protein Digoxin Crossmatch 12/27/17 12/27/17 12/27/17 06:34 06:34 06:34 RBC Hgb Hct MCV MCH MCHC RDW Plt Count Lymph % (Auto) [place] % (Auto) Baso % (Auto) Lymph # [place] # Baso # Seg Neutrophils % Seg Neuts % (Manual) Lymphocytes % (Manual) Eosinophils % (Manual) Basophils % (Manual) Lymphocytes # (Manual) Eosinophils # (Manual) Basophils # (Manual) PT INR APTT Fibrinogen D-Dimer POC ABG pH POC ABG pCO2 POC ABG pO2 Sodium Potassium 3.3 L Chloride 95.4 L Carbon Dioxide BUN Creatinine 2.6 H Glucose 112 H POC Glucose Lactic Acid Calcium 8.1 L Phosphorus Magnesium TIBC 77 L Ferritin > 2000.0 H Total Bilirubin 8.00 H Direct Bilirubin AST 89 H Ammonia Lactate Dehydrogenase 302 H NT-Pro-B Natriuret Pep Total Protein Albumin 3.7 L Lipase Vitamin B12 Urine WBC (Auto) Urine Creatinine Ur Creatinine 24 Hour Fluid Glucose Fluid Total Protein Digoxin Crossmatch 12/28/17 12/28/17 12/29/17 06:24 09:00 00:30 RBC 2.25 L Hgb 7.5 L Hct 21.1 L MCV MCH 33 H MCHC 35 H RDW 16.2 H Plt Count 78 L D Lymph % (Auto) 12.5 L [place] % (Auto) 12.3 H Baso % (Auto) Lymph # 0.9 L [place] # 0.9 H Baso # Seg Neutrophils % 73.3 H Seg Neuts % (Manual) Lymphocytes % (Manual) Eosinophils % (Manual) Basophils % (Manual) Lymphocytes # (Manual) Eosinophils # (Manual) Basophils # (Manual) PT 23.7 H INR 1.97 H APTT 53.1 H Fibrinogen D-Dimer POC ABG pH POC ABG pCO2 POC ABG pO2 Sodium Potassium Chloride Carbon Dioxide BUN Creatinine Glucose POC Glucose 148 H Lactic Acid Calcium Phosphorus Magnesium TIBC Ferritin Total Bilirubin Direct Bilirubin AST Ammonia Lactate Dehydrogenase NT-Pro-B Natriuret Pep Total Protein Albumin Lipase Vitamin B12 Urine WBC (Auto) Urine Creatinine Ur Creatinine 24 Hour Fluid Glucose Fluid Total Protein Digoxin Crossmatch 12/29/17 12/29/17 12/29/17 00:34 03:59 03:59 RBC 2.19 L Hgb 7.2 L Hct 20.7 L MCV 95 H MCH 33 H MCHC 35 H RDW 16.9 H Plt Count 75 L Lymph % (Auto) [place] % (Auto) 10.8 H Baso % (Auto) Lymph # [place] # Baso # Seg Neutrophils % 70.8 H Seg Neuts % (Manual) Lymphocytes % (Manual) Eosinophils % (Manual) Basophils % (Manual) Lymphocytes # (Manual) Eosinophils # (Manual) Basophils # (Manual) PT 25.7 H INR 2.18 H APTT Fibrinogen D-Dimer POC ABG pH POC ABG pCO2 POC ABG pO2 Sodium Potassium Chloride Carbon Dioxide BUN Creatinine 2.3 H Glucose 111 H POC Glucose Lactic Acid Calcium Phosphorus Magnesium TIBC Ferritin Total Bilirubin 8.20 H Direct Bilirubin AST 66 H Ammonia Lactate Dehydrogenase NT-Pro-B Natriuret Pep Total Protein Albumin 3.5 L Lipase Vitamin B12 Urine WBC (Auto) Urine Creatinine Ur Creatinine 24 Hour Fluid Glucose Fluid Total Protein Digoxin Crossmatch 12/29/17 12/30/17 12/30/17 07:35 07:51 08:27 RBC 1.97 L Hgb 6.7 L Hct 18.8 L* MCV 96 H MCH 34 H MCHC 36 H RDW 17.6 H Plt Count 76 L Lymph % (Auto) [place] % (Auto) 10.5 H Baso % (Auto) Lymph # 1.0 L [place] # Baso # Seg Neutrophils % 72.4 H Seg Neuts % (Manual) Lymphocytes % (Manual) Eosinophils % (Manual) Basophils % (Manual) Lymphocytes # (Manual) Eosinophils # (Manual) Basophils # (Manual) PT INR APTT Fibrinogen D-Dimer POC ABG pH POC ABG pCO2 POC ABG pO2 Sodium Potassium Chloride Carbon Dioxide BUN Creatinine Glucose POC Glucose 113 H Lactic Acid Calcium Phosphorus Magnesium 1.50 L TIBC Ferritin Total Bilirubin Direct Bilirubin AST Ammonia Lactate Dehydrogenase NT-Pro-B Natriuret Pep Total Protein Albumin Lipase Vitamin B12 Urine WBC (Auto) Urine Creatinine Ur Creatinine 24 Hour Fluid Glucose Fluid Total Protein Digoxin Crossmatch 12/30/17 12/31/17 12/31/17 08:44 12:59 12:59 RBC 2.49 L Hgb 8.3 L Hct 23.0 L MCV MCH 33 H MCHC 36 H RDW 17.5 H Plt Count 69 L Lymph % (Auto) [place] % (Auto) 13.0 H Baso % (Auto) 1.9 H Lymph # 1.1 L [place] # 0.9 H Baso # Seg Neutrophils % Seg Neuts % (Manual) Lymphocytes % (Manual) Eosinophils % (Manual) Basophils % (Manual) Lymphocytes # (Manual) Eosinophils # (Manual) Basophils # (Manual) PT INR APTT Fibrinogen D-Dimer POC ABG pH POC ABG pCO2 POC ABG pO2 Sodium Potassium Chloride Carbon Dioxide BUN 21 H Creatinine 3.8 H D Glucose 114 H POC Glucose Lactic Acid Calcium Phosphorus Magnesium TIBC Ferritin Total Bilirubin 8.30 H Direct Bilirubin AST 46 H Ammonia Lactate Dehydrogenase NT-Pro-B Natriuret Pep Total Protein Albumin Lipase Vitamin B12 Urine WBC (Auto) Urine Creatinine Ur Creatinine 24 Hour Fluid Glucose Fluid Total Protein Digoxin Crossmatch See Detail 12/31/17 12/31/17 01/01/18 12:59 Unknown 05:27 RBC 2.69 L Hgb 9.1 L Hct 25.1 L MCV MCH 34 H MCHC 36 H RDW 17.5 H Plt Count 64 L Lymph % (Auto) 12.5 L [place] % (Auto) 14.4 H Baso % (Auto) Lymph # 0.9 L [place] # 1.1 H Baso # Seg Neutrophils % 70.4 H Seg Neuts % (Manual) Lymphocytes % (Manual) Eosinophils % (Manual) Basophils % (Manual) Lymphocytes # (Manual) Eosinophils # (Manual) Basophils # (Manual) PT 19.7 H INR 1.57 H APTT Fibrinogen D-Dimer POC ABG pH POC ABG pCO2 POC ABG pO2 Sodium Potassium Chloride Carbon Dioxide BUN Creatinine Glucose POC Glucose Lactic Acid Calcium Phosphorus Magnesium TIBC Ferritin Total Bilirubin Direct Bilirubin AST Ammonia Lactate Dehydrogenase NT-Pro-B Natriuret Pep Total Protein Albumin Lipase Vitamin B12 Urine WBC (Auto) Urine Creatinine Ur Creatinine 24 Hour Fluid Glucose 124 H Fluid Total Protein < 3.0 L Digoxin Crossmatch 01/01/18 01/01/18 01/03/18 05:27 05:27 06:24 RBC 2.62 L Hgb 8.7 L Hct 25.6 L MCV 98 H MCH 33 H MCHC RDW 19.4 H Plt Count 55 L Lymph % (Auto) [place] % (Auto) 10.9 H Baso % (Auto) 2.7 H Lymph # 1.1 L [place] # 0.9 H Baso # 0.2 H Seg Neutrophils % Seg Neuts % (Manual) Lymphocytes % (Manual) Eosinophils % (Manual) Basophils % (Manual) Lymphocytes # (Manual) Eosinophils # (Manual) Basophils # (Manual) PT 22.1 H INR 1.81 H APTT Fibrinogen D-Dimer POC ABG pH POC ABG pCO2 POC ABG pO2 Sodium Potassium Chloride Carbon Dioxide BUN Creatinine 2.8 H Glucose POC Glucose Lactic Acid Calcium Phosphorus Magnesium TIBC Ferritin Total Bilirubin 9.20 H Direct Bilirubin AST 49 H Ammonia Lactate Dehydrogenase NT-Pro-B Natriuret Pep Total Protein Albumin 3.8 L Lipase Vitamin B12 Urine WBC (Auto) Urine Creatinine Ur Creatinine 24 Hour Fluid Glucose Fluid Total Protein Digoxin Crossmatch 01/03/18 01/03/18 01/05/18 06:24 06:24 04:47 RBC 2.75 L Hgb 9.2 L Hct 27.3 L MCV 99 H MCH 34 H MCHC RDW 23.5 H Plt Count 55 L Lymph % (Auto) [place] % (Auto) 14.3 H Baso % (Auto) 2.3 H Lymph # [place] # 1.0 H Baso # 0.2 H Seg Neutrophils % Seg Neuts % (Manual) Lymphocytes % (Manual) Eosinophils % (Manual) Basophils % (Manual) Lymphocytes # (Manual) Eosinophils # (Manual) Basophils # (Manual) PT 24.1 H INR 2.01 H APTT Fibrinogen D-Dimer POC ABG pH POC ABG pCO2 POC ABG pO2 Sodium Potassium Chloride Carbon Dioxide BUN Creatinine Glucose POC Glucose Lactic Acid Calcium Phosphorus Magnesium TIBC Ferritin Total Bilirubin 9.00 H Direct Bilirubin 2.7 H AST 50 H Ammonia Lactate Dehydrogenase NT-Pro-B Natriuret Pep Total Protein Albumin 3.6 L Lipase Vitamin B12 Urine WBC (Auto) Urine Creatinine Ur Creatinine 24 Hour Fluid Glucose Fluid Total Protein Digoxin Crossmatch 01/05/18 01/05/18 01/05/18 04:47 04:47 14:57 RBC Hgb Hct MCV MCH MCHC RDW Plt Count Lymph % (Auto) [place] % (Auto) Baso % (Auto) Lymph # [place] # Baso # Seg Neutrophils % Seg Neuts % (Manual) Lymphocytes % (Manual) Eosinophils % (Manual) Basophils % (Manual) Lymphocytes # (Manual) Eosinophils # (Manual) Basophils # (Manual) PT 24.3 H INR 2.04 H APTT Fibrinogen D-Dimer POC ABG pH POC ABG pCO2 POC ABG pO2 Sodium Potassium Chloride Carbon Dioxide BUN Creatinine 2.6 H Glucose 117 H POC Glucose Lactic Acid Calcium Phosphorus Magnesium TIBC Ferritin Total Bilirubin 9.50 H Direct Bilirubin AST 50 H Ammonia 75.0 H Lactate Dehydrogenase NT-Pro-B Natriuret Pep Total Protein Albumin 3.7 L Lipase Vitamin B12 Urine WBC (Auto) Urine Creatinine Ur Creatinine 24 Hour Fluid Glucose Fluid Total Protein Digoxin Crossmatch 01/06/18 01/06/18 01/07/18 02:35 02:35 09:29 RBC 2.75 L Hgb 9.2 L Hct 27.7 L MCV 101 H MCH 34 H MCHC RDW 25.1 H Plt Count 46 L Lymph % (Auto) [place] % (Auto) Baso % (Auto) Lymph # [place] # Baso # Seg Neutrophils % Seg Neuts % (Manual) Lymphocytes % (Manual) 13.0 L Eosinophils % (Manual) 7.0 H Basophils % (Manual) 2.0 H Lymphocytes # (Manual) 1.0 L Eosinophils # (Manual) 0.6 H Basophils # (Manual) 0.2 H PT 21.3 H INR 1.73 H APTT 41.2 H Fibrinogen D-Dimer POC ABG pH POC ABG pCO2 POC ABG pO2 Sodium Potassium Chloride 96.3 L Carbon Dioxide 21 L BUN 23 H Creatinine 2.9 H Glucose POC Glucose Lactic Acid Calcium Phosphorus Magnesium TIBC Ferritin Total Bilirubin 9.80 H Direct Bilirubin AST 65 H Ammonia Lactate Dehydrogenase NT-Pro-B Natriuret Pep Total Protein Albumin 3.5 L Lipase Vitamin B12 Urine WBC (Auto) Urine Creatinine Ur Creatinine 24 Hour Fluid Glucose Fluid Total Protein Digoxin Crossmatch Allied health notes reviewed: nursing
--- NOTE | 2018-01-07 13:50 | Progress Note ---
Assessment and Plan Assessment and plan: Patient is a 62-year-old man with a history of hypertension, seizure disorder, cirrhosis who presented to [facility] ED with abdominal pains and swelling. He was admitted due to hypotension. * CT chest wo contrast IMPRESSION: The heart size is normal.. There is no thoracic aortic aneurysm or dissection.. There is discoid atelectasis at the lung bases greater on the right. There are no acute infiltrates.. There are large bilateral pleural effusions. There is no pneumothorax.. * CT abd/pelvis wo contrast IMPRESSION: There is a stent in the portal vein. Liver is irregular in contour suggesting cirrhosis. There are tiny calcified granulomas. There is no discrete mass.. There are bilateral kidney stones. There is no hydronephrosis.. There is a large amount of stool in the colon. There is no obstruction or fecal impaction. There is no specific evidence of colitis or diverticulitis. The stomach and small bowel are unremarkable. The appendix is normal.. There is minimal ascites. There is no free air -Severe Cirrhosis/Ascites/hyperbilirubinemia s/p paracentesis, fluid analysis negative for SBP -Bilateral pleural effusion right greater than left: Sales And Merchandising Representative recommends giving FFP and thoracentesis, Scheduled for thoracentesis -Acute on chronic blood loss anemia/ esophageal Varices s/p PRBC transfusion, total 11 units during this admission, EGD negative for esophageal variceal bleeding: closely monitor -Coagulopathy; secondary to cirrhosis liver: Received vitamin K subcutaneous 1 dose, FFP's, Vitamin K, FFP's as needed -Severe thrombocytopenia; secondary to cirrhosis -NSVT, resolved; continue Lopressor -Hypovolemic shock. On midodrine, -No evidence for Sepsis; cultures negative, I could not find any evidence of an infectious source to document Sepsis, mostly SIRS, poa -Rectal bleeding; resolved GI following -Toxic metabolic/hepatic encephalopathy. Recheck ammonia level -Acute on chronic kidney disease V, initiated Hemodialysis 12/17/17 after perm-a- cath placed: ATN/sepsis/hypotension. Now on hemodialysis, Outpatient dialysis per case management -Hepatorenal syndrome; on HD, nephrology following Patient has appointment for liver transplant evaluation in [place], However patient was unstable for discharge. Dr. Hanson talked to Dr. Guevara transplant center updated patient's clinical status, a few days ago Day , my first day caring for patient. Dr. Hanson called for handoff Thoracentesis is pending more confused today, ammonia level is increase, increase lactulose to tid and recheck in am I have asked Dr. Reynolds to speak with Beatriz History Interval history: Patient was seen and examined. Follow-up on current diagnosis of abdominal swelling. Overnight uneventful. Patient denies any chest pain, shortness breath , nausea/vomiting or severe headaches. Imaging, nursing note, chart, labs and old chart reviewed. Discussed with patient but he is confused this morning. Only orientated to self Hospitalist Physical - Physical exam Narrative exam: GEN: thin frail, NAD, Awake, Alert, Orientated x 1 to self only HEENT: NCAT, EOMI, PERRL, OP Clear NECK: supple, no adenopathy, no thyromegaly, no JVD CVS/HEART: RRR, normal S1S2, pulses present bilaterally CHEST/LUNGS: diminished bs bilaterally, Symmetrical chest expansion, good air entry bilaterally GI/Abdomen: soft, distended, good bowel sounds, no guarding or rebound /Bladder: no suprapubic tenderness, no CVA or paraspinal tenderness, swollen penis due to ansarca EXT/Skin: ble edema MSK: FROM x 4 Neuro: CN 2-12 grossly intact, no new focal deficits Psych: calm - Constitutional Vitals: Temp Pulse Resp BP Pulse Ox 97.5 F L 73 20 79/39 96 01/07/18 11:50 01/07/18 13:15 01/07/18 11:50 01/07/18 13:15 01/07/18 10:00 General appearance: Present: no acute distress, well-nourished Results - Labs CBC & Chem 7: 01/06/18 02:35 01/06/18 02:35 Labs: Laboratory Last Values WBC 7.9 K/mm3 (4.5-11.0) 01/06/18 02:35 RBC 2.75 M/mm3 (3.65-5.03) L 01/06/18 02:35 Hgb 9.2 gm/dl (11.8-15.2) L 01/06/18 02:35 Hct 27.7 % (35.5-45.6) L 01/06/18 02:35 MCV 101 fl (84-94) H 01/06/18 02:35 MCH 34 pg (28-32) H 01/06/18 02:35 MCHC 33 % (32-34) 01/06/18 02:35 RDW 25.1 % (13.2-15.2) H 01/06/18 02:35 Plt Count 46 K/mm3 (140-440) L 01/06/18 02:35 Lymph % (Auto) 16.1 % (13.4-35.0) 01/05/18 04:47 Crockett % (Auto) Blending Tank Tender Helper 01/06/18 02:35 Eos % (Auto) 1.1 % (0.0-4.3) 01/05/18 04:47 Baso % (Auto) 2.3 % (0.0-1.8) H 01/05/18 04:47 Lymph # 1.2 K/mm3 (1.2-5.4) 01/05/18 04:47 [place]ett # 1.0 K/mm3 (0.0-0.8) H 01/05/18 04:47 Eos # 0.1 K/mm3 (0.0-0.4) 01/05/18 04:47 Baso # 0.2 K/mm3 (0.0-0.1) H 01/05/18 04:47 Add Manual Diff Complete 01/06/18 02:35 Total Counted 100 01/06/18 02:35 Seg Neutrophils % 66.2 % (40.0-70.0) 01/05/18 04:47 Seg Neuts % (Manual) 68.0 % (40.0-70.0) 01/06/18 02:35 Band Neutrophils % 5.0 % 01/06/18 02:35 Lymphocytes % (Manual) 13.0 % (13.4-35.0) L 01/06/18 02:35 Reactive Lymphs % (Man) 0 % 01/06/18 02:35 Monocytes % (Manual) 5.0 % (0.0-7.3) 01/06/18 02:35 Eosinophils % (Manual) 7.0 % (0.0-4.3) H 01/06/18 02:35 Basophils % (Manual) 2.0 % (0.0-1.8) H 01/06/18 02:35 Metamyelocytes % 0 % 01/06/18 02:35 Myelocytes % 0 % 01/06/18 02:35 Promyelocytes % 0 % 01/06/18 02:35 Blast Cells % 0 % 01/06/18 02:35 Nucleated RBC % Not Reportable 01/06/18 02:35 Seg Neutrophils # 4.9 K/mm3 (1.8-7.7) 01/05/18 04:47 Seg Neutrophils # Man 5.4 K/mm3 (1.8-7.7) 01/06/18 02:35 Band Neutrophils # 0.4 K/mm3 01/06/18 02:35 Lymphocytes # (Manual) 1.0 K/mm3 (1.2-5.4) L 01/06/18 02:35 Abs React Lymphs (Man) 0.0 K/mm3 01/06/18 02:35 Monocytes # (Manual) 0.4 K/mm3 (0.0-0.8) 01/06/18 02:35 Eosinophils # (Manual) 0.6 K/mm3 (0.0-0.4) H 01/06/18 02:35 Basophils # (Manual) 0.2 K/mm3 (0.0-0.1) H 01/06/18 02:35 Metamyelocytes # 0.0 K/mm3 01/06/18 02:35 Myelocytes # 0.0 K/mm3 01/06/18 02:35 Promyelocytes # 0.0 K/mm3 01/06/18 02:35 Blast Cells # 0.0 K/mm3 01/06/18 02:35 WBC Morphology Not Reportable 01/06/18 02:35 Hypersegmented Neuts Not Reportable 01/06/18 02:35 Hyposegmented Neuts Not Reportable 01/06/18 02:35 Hypogranular Neuts Not Reportable 01/06/18 02:35 Smudge Cells Not Reportable 01/06/18 02:35 Toxic Granulation Not Reportable 01/06/18 02:35 Toxic Vacuolation Not Reportable 01/06/18 02:35 Dohle Bodies Not Reportable 01/06/18 02:35 Pelger-Huet Anomaly Not Reportable 01/06/18 02:35 Eriberto Rods Not Reportable 01/06/18 02:35 Platelet Estimate Consistent w auto 01/06/18 02:35 Clumped Platelets Not Reportable 01/06/18 02:35 Plt Clumps, EDTA Not Reportable 01/06/18 02:35 Large Platelets Not Reportable 01/06/18 02:35 Giant Platelets Not Reportable 01/06/18 02:35 Platelet Satelliting Not Reportable 01/06/18 02:35 Plt Morphology Comment Not Reportable 01/06/18 02:35 RBC Morphology Not Reportable 01/06/18 02:35 Dimorphic RBCs Not Reportable 01/06/18 02:35 Polychromasia Not Reportable 01/06/18 02:35 Hypochromasia Rare 01/06/18 02:35 Poikilocytosis Not Reportable 01/06/18 02:35 Anisocytosis 1+ 01/06/18 02:35 Microcytosis Not Reportable 01/06/18 02:35 Macrocytosis Not Reportable 01/06/18 02:35 Spherocytes Few 01/06/18 02:35 Pappenheimer Bodies Not Reportable 01/06/18 02:35 Sickle Cells Not Reportable 01/06/18 02:35 Target Cells Not Reportable 01/06/18 02:35 Tear Drop Cells Not Reportable 01/06/18 02:35 Ovalocytes 1+ 01/06/18 02:35 Helmet Cells Not Reportable 01/06/18 02:35 Dos Santos-Cullom Bodies Not Reportable 01/06/18 02:35 [place] Rings Not Reportable 01/06/18 02:35 Fahad Cells Not Reportable 01/06/18 02:35 Bite Cells Not Reportable 01/06/18 02:35 Crenated Cell Not Reportable 01/06/18 02:35 Elliptocytes Not Reportable 01/06/18 02:35 Acanthocytes (Spur) 1+ 01/06/18 02:35 Rouleaux Not Reportable 01/06/18 02:35 Hemoglobin C Crystals Not Reportable 01/06/18 02:35 Schistocytes Not Reportable 01/06/18 02:35 Malaria parasites Not Reportable 01/06/18 02:35 ESR 18 mm/Hr (0-20) 12/12/17 19:50 Lyndon Bodies Not Reportable 01/06/18 02:35 Hem Pathologist Commnt No 01/06/18 02:35 PT 21.3 Sec. (12.2-14.9) H 01/07/18 09:29 INR 1.73 (0.87-1.13) H 01/07/18 09:29 APTT 41.2 Sec. (24.2-36.6) H 01/07/18 09:29 Fibrinogen 128 mg/dl (211-480) L 12/12/17 19:50 D-Dimer 1215.06 ng/mlDDU (0-234) H 12/12/17 19:50 Factor VIII:C Activity 178 % (50-180) 12/12/17 20:30 POC ABG pH 7.452 (7.35-7.45) H 12/12/17 09:13 POC ABG pCO2 22.2 (35-45) L 12/12/17 09:13 POC ABG pO2 75 (80-105) L 12/12/17 09:13 POC ABG HCO3 15.5 12/12/17 09:13 POC ABG Total CO2 16 12/12/17 09:13 POC ABG O2 Sat 96 12/12/17 09:13 POC ABG Base Excess -8 12/12/17 09:13 FiO2 21 % 12/12/17 09:13 Sodium 140 mmol/L (137-145) 01/06/18 02:35 Potassium 4.8 mmol/L (3.6-5.0) 01/06/18 02:35 Chloride 96.3 mmol/L (98-107) L 01/06/18 02:35 Carbon Dioxide 21 mmol/L (22-30) L 01/06/18 02:35 Anion Gap 28 mmol/L 01/06/18 02:35 BUN 23 mg/dL (9-20) H 01/06/18 02:35 Creatinine 2.9 mg/dL (0.8-1.5) H 01/06/18 02:35 Estimated GFR 27 ml/min 01/06/18 02:35 BUN/Creatinine Ratio 8 % 01/06/18 02:35 Glucose 96 mg/dL (75-100) 01/06/18 02:35 POC Glucose 113 (70-105) H 12/29/17 07:35 Lactic Acid 3.90 mmol/L (0.7-2.0) H* 12/14/17 17:26 Calcium 9.8 mg/dL (8.4-10.2) 01/06/18 02:35 Phosphorus 2.40 mg/dL (2.5-4.5) L 12/26/17 05:59 Magnesium 1.70 mg/dL (1.7-2.3) 01/03/18 06:24 Iron 78 ug/dL (49-181) 12/27/17 06:34 TIBC 77 mcg/dL (250-450) L 12/27/17 06:34 Ferritin > 2000.0 ng/mL (13.0-400.0) H 12/27/17 06:34 Total Bilirubin 9.80 mg/dL (0.1-1.2) H 01/06/18 02:35 Direct Bilirubin 2.7 mg/dL (0-0.2) H 01/03/18 06:24 Indirect Bilirubin 6.3 mg/dL 01/03/18 06:24 AST 65 units/L (5-40) H 01/06/18 02:35 ALT 23 units/L (7-56) 01/06/18 02:35 Alkaline Phosphatase 68 units/L (35-129) 01/06/18 02:35 Ammonia 75.0 umol/L (25-60) H 01/05/18 14:57 Lactate Dehydrogenase 302 units/L (91-180) H 12/27/17 06:34 Total Creatine Kinase 64 units/L (55-170) 12/10/17 23:14 C-Reactive Protein 0.30 mg/dL (0.00-1.30) 12/13/17 14:03 NT-Pro-B Natriuret Pep 9558 pg/mL (0-900) H 12/10/17 23:14 Total Protein 7.6 g/dL (6.3-8.2) 01/06/18 02:35 Albumin 3.5 g/dL (3.9-5) L 01/06/18 02:35 Albumin/Globulin Ratio 0.9 % 01/06/18 02:35 Lipase 7 units/L (13-60) L 12/10/17 23:14 Vitamin B12 1465 pg/mL (211-911) H 12/12/17 19:50 Folate 14.04 ng/mL (7.3-26.0) 12/12/17 19:50 TSH 2.560 mlU/mL (0.270-4.200) 12/16/17 12:37 Total Cortisol 9.5 mcg/dL () 01/02/18 10:45 Urine Color Yellow (Yellow) 12/10/17 23:05 Urine Turbidity Clear (Clear) 12/10/17 23:05 Urine pH 5.0 (5.0-7.0) 12/10/17 23:05 Ur Specific [place] 1.013 (1.003-1.030) 12/10/17 23:05 Urine Protein <15 mg/dl mg/dL (Negative) 12/10/17 23:05 Urine Glucose (UA) Neg mg/dL (Negative) 12/10/17 23:05 Urine Ketones Neg mg/dL (Negative) 12/10/17 23:05 Urine Blood Neg (Negative) 12/10/17 23:05 Urine Nitrite Neg (Negative) 12/10/17 23:05 Ur Reducing Substances Not Reportable 12/10/17 23:05 Urine Bilirubin Neg (Negative) 12/10/17 23:05 Urine Ictotest Not Reportable 12/10/17 23:05 Urine Urobilinogen < 2.0 mg/dL (<2.0) 12/10/17 23:05 Ur Leukocyte Esterase Sm (Negative) 12/10/17 23:05 Urine WBC (Auto) 10.0 /HPF (0.0-6.0) H 12/10/17 23:05 Urine RBC (Auto) 4.0 /HPF (0.0-6.0) 12/10/17 23:05 U Epithel Cells (Auto) < 1.0 /HPF (0-13.0) 12/10/17 23:05 Urine Mucus Few /HPF 12/10/17 23:05 Urine Total Volume 250 12/14/17 Unknown Urine Creatinine 122.5 mg/dL (0.1-20.0) H 12/14/17 Unknown Ur Creatinine 24 Hour 0.3 (0.8-2.8) L 12/14/17 Unknown Fluid Type Peritoneal 12/31/17 Unknown Fluid Color Red 12/31/17 Unknown Fluid Appearance Cloudy 12/31/17 Unknown Fluid WBC 55 /mm3 12/31/17 Unknown Fluid RBC 95737 /mm3 12/31/17 Unknown Fluid Seg Neutrophils 6.0 % 12/31/17 Unknown Fluid Lymphocytes 48.0 % 12/31/17 Unknown Fluid Reactive Lymphs Not Reportable 12/31/17 Unknown Fluid Monocytes 46.0 % 12/31/17 Unknown Fluid Eosinophils Not Reportable 12/31/17 Unknown Fluid Basophils Not Reportable 12/31/17 Unknown Fluid Glucose 124 mg/dL (40-70) H 12/31/17 Unknown Fluid Total Protein < 3.0 (15.0-45.0) L 12/31/17 Unknown Fluid Albumin 1.7 g/dL 12/31/17 Unknown Fluid LDH 186 12/31/17 Unknown Fluid Amylase < 10 12/31/17 Unknown Fluid Triglycerides 48 12/31/17 Unknown Digoxin 0.4 ng/mL (0.9-2.0) L 12/21/17 05:26 Hepatitis A IgM Ab Non-reactive (NonReactive) 12/12/17 19:50 Hep Bs Antigen Non-reactive (Negative) 12/12/17 19:50 Hep B Core IgM Ab Non-reactive (NonReactive) 12/12/17 19:50 Hepatitis C Antibody Non-reactive (NonReactive) 12/12/17 19:50 Miscellaneous Test Flexitest 1 12/12/17 06:42 Blood Type A NEGATIVE 01/06/18 11:00 Antibody Screen Negative 12/30/17 08:44 Direct Antiglob Test Negative 12/12/17 20:41 JOANNE, Poly Interpret Negative 12/12/17 20:41 Crossmatch See Detail 12/30/17 08:44
[2018-01-07] MEDS ORDERED: ROXICODONE PO PRN (14:26)
--- NOTE | 2018-01-07 17:28 | Progress Note ---
Assessment and Plan Cardiac status is stable, we'll continue to follow on an intermittent basis. Subjective Date of service: 01/07/18 Principal diagnosis: CARMEN on CKD; Acute Encephalopathy; Sepsis Syndrome; Anemia Interval history: The patient is comfortable, no cardiac complaints. He is currently on hemodialysis in his room. Objective Vital Signs Temp Pulse Pulse Pulse Resp BP BP 01/07/18 16:59 98.6 F 18 L 18 99/60 01/07/18 15:15 97.5 F L 75 20 108/72 01/07/18 14:45 75 104/62 01/07/18 14:30 72 109/57 01/07/18 14:15 72 99/58 01/07/18 14:00 74 97/59 01/07/18 13:45 75 102/64 01/07/18 13:30 75 83/51 01/07/18 13:15 73 79/39 01/07/18 13:00 75 100/59 01/07/18 12:45 76 101/41 01/07/18 12:30 75 86/59 01/07/18 12:15 72 94/56 01/07/18 12:00 70 92/53 01/07/18 11:50 97.5 F L 69 20 100/55 01/07/18 10:57 73 103/54 01/07/18 10:55 20 01/07/18 10:00 70 01/07/18 09:06 72 01/07/18 08:50 71 20 103/59 01/07/18 04:40 97.5 F L 18 95/62 01/07/18 04:30 97.6 F 67 18 95/62 01/07/18 00:15 98.1 F 67 18 93/58 01/06/18 23:45 97.8 F 64 18 104/67 01/06/18 23:15 97.8 F 64 18 105/64 01/06/18 22:57 61 01/06/18 22:45 97.8 F 68 18 104/65 01/06/18 22:30 97.6 F 64 18 104/67 01/06/18 22:25 97.6 F 66 18 104/67 01/06/18 19:45 97.3 F L 100 H 20 100/41 01/06/18 19:44 Pulse Ox 01/07/18 16:59 01/07/18 15:15 01/07/18 14:45 01/07/18 14:30 01/07/18 14:15 01/07/18 14:00 01/07/18 13:45 01/07/18 13:30 01/07/18 13:15 01/07/18 13:00 01/07/18 12:45 01/07/18 12:30 01/07/18 12:15 01/07/18 12:00 01/07/18 11:50 01/07/18 10:57 01/07/18 10:55 01/07/18 10:00 96 01/07/18 09:06 96 01/07/18 08:50 95 01/07/18 04:40 01/07/18 04:30 90 01/07/18 00:15 97 01/06/18 23:45 96 01/06/18 23:15 96 01/06/18 22:57 01/06/18 22:45 96 01/06/18 22:30 94 01/06/18 22:25 96 01/06/18 19:45 99 01/06/18 19:44 94 - Physical Examination General: No Apparent Distress HEENT: Positive: PERRL Neck: Positive: neck supple. Negative: JVD/HJR Cardiac: Positive: Reg Rate and Rhythm Lungs: Positive: Decreased Breath Sounds Neuro: Positive: Weakness Abdomen: Positive: Soft, Active Bowel Sounds Skin: Positive: Clear Extremities: Absent: edema - Labs and Meds Coagulation 01/07/18 Range/Units 09:29 PT 21.3 H (12.2-14.9) Sec. INR 1.73 H (0.87-1.13) APTT 41.2 H (24.2-36.6) Sec. - Allied health notes Allied health notes reviewed: nursing
[2018-01-07] MEDS: VITAMIN K (ADULT ONLY) SUB-Q SCH ×2 (22:54→23:20)
[2018-01-07] MEDS: PROTONIX PO SCH (23:20)
[2018-01-08] MEDS: VITAMIN K (ADULT ONLY) SUB-Q SCH ×2 (07:00→16:18)
[2018-01-08 07:06] LABS: INR 1.86 (0.87-1.13)
[2018-01-08 07:07] LABS: Partial Thromboplastin Time 49.5 Sec. (24.2-36.6)
[2018-01-08] MEDS: CEPHULAC PO SCH ×2 (11:41→22:50)
[2018-01-08] MEDS: THERAGRAN-M Tab PO SCH (11:42)
[2018-01-08] MEDS: PROTONIX PO SCH (11:42)
[2018-01-08] MEDS: PROAMATINE PO SCH ×3 (11:42→21:00)
[2018-01-08] MEDS: XIFAXAN PO SCH ×2 (11:43→22:50)
[2018-01-08] MEDS: LOPRESSOR PO SCH ×2 (11:48→22:55)
--- NOTE | 2018-01-08 12:13 | Progress Note ---
Assessment and Plan Assessment and plan: Patient is a 62-year-old man with a history of hypertension, seizure disorder, cirrhosis who presented to [facility] ED with abdominal pains and swelling. He was admitted due to hypotension. * CT chest wo contrast IMPRESSION: The heart size is normal.. There is no thoracic aortic aneurysm or dissection.. There is discoid atelectasis at the lung bases greater on the right. There are no acute infiltrates.. There are large bilateral pleural effusions. There is no pneumothorax.. * CT abd/pelvis wo contrast IMPRESSION: There is a stent in the portal vein. Liver is irregular in contour suggesting cirrhosis. There are tiny calcified granulomas. There is no discrete mass.. There are bilateral kidney stones. There is no hydronephrosis.. There is a large amount of stool in the colon. There is no obstruction or fecal impaction. There is no specific evidence of colitis or diverticulitis. The stomach and small bowel are unremarkable. The appendix is normal.. There is minimal ascites. There is no free air -Severe Cirrhosis/Ascites/hyperbilirubinemia s/p paracentesis, fluid analysis negative for SBP -Bilateral pleural effusion right greater than left: [employer] recommends giving FFP and thoracentesis, Scheduled for thoracentesis -Acute on chronic blood loss anemia/ esophageal Varices s/p PRBC transfusion, total 11 units during this admission, EGD negative for esophageal variceal bleeding: closely monitor -Coagulopathy; secondary to cirrhosis liver: Received vitamin K subcutaneous 1 dose, FFP's, Vitamin K, FFP's as needed -Severe thrombocytopenia; secondary to cirrhosis -NSVT, resolved; continue Lopressor -Hypovolemic shock. On midodrine, -No evidence for Sepsis; cultures negative, I could not find any evidence of an infectious source to document Sepsis, mostly SIRS, poa -Rectal bleeding; resolved GI following -Toxic metabolic/hepatic encephalopathy. Recheck ammonia level -Acute on chronic kidney disease V, initiated Hemodialysis 12/17/17 after perm-a- cath placed: ATN/sepsis/hypotension. Now on hemodialysis, Outpatient dialysis per case management -Hepatorenal syndrome; on HD, nephrology following Patient has appointment for liver transplant evaluation in [place], However patient was unstable for discharge. Dr. Hanson talked to Dr. Guevara transplant center updated patient's clinical status, a few days ago Day was my first day caring for patient. Dr. Hanson called for handoff Thoracentesis is pending more confused today, ammonia level is increase, increased lactulose to tid and recheck and now normal, reduce lactulose I have asked Dr. Reynolds to speak with Beatriz History Interval history: Patient was seen and examined. Follow-up on current diagnosis of abdominal swelling. Overnight uneventful. Patient denies any chest pain, shortness breath , nausea/vomiting or severe headaches. Imaging, nursing note, chart, labs and old chart reviewed. Discussed with patient but he is confused this morning. Only orientated to self Hospitalist Physical - Physical exam Narrative exam: GEN: thin frail, NAD, Awake, Alert, Orientated x 1 to self only HEENT: NCAT, EOMI, PERRL, OP Clear NECK: supple, no adenopathy, no thyromegaly, no JVD CVS/HEART: RRR, normal S1S2, pulses present bilaterally CHEST/LUNGS: diminished bs bilaterally, Symmetrical chest expansion, good air entry bilaterally GI/Abdomen: soft, distended, good bowel sounds, no guarding or rebound /Bladder: no suprapubic tenderness, no CVA or paraspinal tenderness, swollen penis due to ansarca EXT/Skin: ble edema, sclera icterus MSK: FROM x 4 Neuro: CN 2-12 grossly intact, no new focal deficits Psych: calm - Constitutional Vitals: Temp Pulse Resp BP Pulse Ox 97.9 F 65 16 116/68 95 01/08/18 08:37 01/08/18 08:37 01/08/18 08:37 01/08/18 08:37 01/08/18 08:37 General appearance: Present: no acute distress, well-nourished Results - Labs CBC & Chem 7: 01/06/18 02:35 01/06/18 02:35 Labs: Laboratory Last Values WBC 7.9 K/mm3 (4.5-11.0) 01/06/18 02:35 RBC 2.75 M/mm3 (3.65-5.03) L 01/06/18 02:35 Hgb 9.2 gm/dl (11.8-15.2) L 01/06/18 02:35 Hct 27.7 % (35.5-45.6) L 01/06/18 02:35 MCV 101 fl (84-94) H 01/06/18 02:35 MCH 34 pg (28-32) H 01/06/18 02:35 MCHC 33 % (32-34) 01/06/18 02:35 RDW 25.1 % (13.2-15.2) H 01/06/18 02:35 Plt Count 46 K/mm3 (140-440) L 01/06/18 02:35 Lymph % (Auto) 16.1 % (13.4-35.0) 01/05/18 04:47 Murray % (Auto) [employer]ger[employer] Assistant 01/06/18 02:35 Eos % (Auto) 1.1 % (0.0-4.3) 01/05/18 04:47 Baso % (Auto) 2.3 % (0.0-1.8) H 01/05/18 04:47 Lymph # 1.2 K/mm3 (1.2-5.4) 01/05/18 04:47 Murray # 1.0 K/mm3 (0.0-0.8) H 01/05/18 04:47 Eos # 0.1 K/mm3 (0.0-0.4) 01/05/18 04:47 Baso # 0.2 K/mm3 (0.0-0.1) H 01/05/18 04:47 Add Manual Diff Complete 01/06/18 02:35 Total Counted 100 01/06/18 02:35 Seg Neutrophils % 66.2 % (40.0-70.0) 01/05/18 04:47 Seg Neuts % (Manual) 68.0 % (40.0-70.0) 01/06/18 02:35 Band Neutrophils % 5.0 % 01/06/18 02:35 Lymphocytes % (Manual) 13.0 % (13.4-35.0) L 01/06/18 02:35 Reactive Lymphs % (Man) 0 % 01/06/18 02:35 Monocytes % (Manual) 5.0 % (0.0-7.3) 01/06/18 02:35 Eosinophils % (Manual) 7.0 % (0.0-4.3) H 01/06/18 02:35 Basophils % (Manual) 2.0 % (0.0-1.8) H 01/06/18 02:35 Metamyelocytes % 0 % 01/06/18 02:35 Myelocytes % 0 % 01/06/18 02:35 Promyelocytes % 0 % 01/06/18 02:35 Blast Cells % 0 % 01/06/18 02:35 Nucleated RBC % Not Reportable 01/06/18 02:35 Seg Neutrophils # 4.9 K/mm3 (1.8-7.7) 01/05/18 04:47 Seg Neutrophils # Man 5.4 K/mm3 (1.8-7.7) 01/06/18 02:35 Band Neutrophils # 0.4 K/mm3 01/06/18 02:35 Lymphocytes # (Manual) 1.0 K/mm3 (1.2-5.4) L 01/06/18 02:35 Abs React Lymphs (Man) 0.0 K/mm3 01/06/18 02:35 Monocytes # (Manual) 0.4 K/mm3 (0.0-0.8) 01/06/18 02:35 Eosinophils # (Manual) 0.6 K/mm3 (0.0-0.4) H 01/06/18 02:35 Basophils # (Manual) 0.2 K/mm3 (0.0-0.1) H 01/06/18 02:35 Metamyelocytes # 0.0 K/mm3 01/06/18 02:35 Myelocytes # 0.0 K/mm3 01/06/18 02:35 Promyelocytes # 0.0 K/mm3 01/06/18 02:35 Blast Cells # 0.0 K/mm3 01/06/18 02:35 WBC Morphology Not Reportable 01/06/18 02:35 Hypersegmented Neuts Not Reportable 01/06/18 02:35 Hyposegmented Neuts Not Reportable 01/06/18 02:35 Hypogranular Neuts Not Reportable 01/06/18 02:35 Smudge Cells Not Reportable 01/06/18 02:35 Toxic Granulation Not Reportable 01/06/18 02:35 Toxic Vacuolation Not Reportable 01/06/18 02:35 Dohle Bodies Not Reportable 01/06/18 02:35 Pelger-Huet Anomaly Not Reportable 01/06/18 02:35 Eriberto Rods Not Reportable 01/06/18 02:35 Platelet Estimate Consistent w auto 01/06/18 02:35 Clumped Platelets Not Reportable 01/06/18 02:35 Plt Clumps, EDTA Not Reportable 01/06/18 02:35 Large Platelets Not Reportable 01/06/18 02:35 Giant Platelets Not Reportable 01/06/18 02:35 Platelet Satelliting Not Reportable 01/06/18 02:35 Plt Morphology Comment Not Reportable 01/06/18 02:35 RBC Morphology Not Reportable 01/06/18 02:35 Dimorphic RBCs Not Reportable 01/06/18 02:35 Polychromasia Not Reportable 01/06/18 02:35 Hypochromasia Rare 01/06/18 02:35 Poikilocytosis Not Reportable 01/06/18 02:35 Anisocytosis 1+ 01/06/18 02:35 Microcytosis Not Reportable 01/06/18 02:35 Macrocytosis Not Reportable 01/06/18 02:35 Spherocytes Few 01/06/18 02:35 Pappenheimer Bodies Not Reportable 01/06/18 02:35 Sickle Cells Not Reportable 01/06/18 02:35 Target Cells Not Reportable 01/06/18 02:35 Tear Drop Cells Not Reportable 01/06/18 02:35 Ovalocytes 1+ 01/06/18 02:35 Helmet Cells Not Reportable 01/06/18 02:35 [place] Bodies Not Reportable 01/06/18 02:35 Bertha Rings Not Reportable 01/06/18 02:35 [place]ad Cells Not Reportable 01/06/18 02:35 Bite Cells Not Reportable 01/06/18 02:35 Crenated Cell Not Reportable 01/06/18 02:35 Elliptocytes Not Reportable 01/06/18 02:35 Acanthocytes (Spur) 1+ 01/06/18 02:35 Rouleaux Not Reportable 01/06/18 02:35 Hemoglobin C Crystals Not Reportable 01/06/18 02:35 Schistocytes Not Reportable 01/06/18 02:35 Malaria parasites Not Reportable 01/06/18 02:35 ESR 18 mm/Hr (0-20) 12/12/17 19:50 Lyndon Bodies Not Reportable 01/06/18 02:35 Hem Pathologist Commnt No 01/06/18 02:35 PT 22.6 Sec. (12.2-14.9) H 01/08/18 06:15 INR 1.86 (0.87-1.13) H 01/08/18 06:15 APTT 49.5 Sec. (24.2-36.6) H 01/08/18 06:15 Fibrinogen 128 mg/dl (211-480) L 12/12/17 19:50 D-Dimer 1215.06 ng/mlDDU (0-234) H 12/12/17 19:50 Factor VIII:C Activity 178 % (50-180) 12/12/17 20:30 POC ABG pH 7.452 (7.35-7.45) H 12/12/17 09:13 POC ABG pCO2 22.2 (35-45) L 12/12/17 09:13 POC ABG pO2 75 (80-105) L 12/12/17 09:13 POC ABG HCO3 15.5 12/12/17 09:13 POC ABG Total CO2 16 12/12/17 09:13 POC ABG O2 Sat 96 12/12/17 09:13 POC ABG Base Excess -8 12/12/17 09:13 FiO2 21 % 12/12/17 09:13 Sodium 140 mmol/L (137-145) 01/06/18 02:35 Potassium 4.8 mmol/L (3.6-5.0) 01/06/18 02:35 Chloride 96.3 mmol/L (98-107) L 01/06/18 02:35 Carbon Dioxide 21 mmol/L (22-30) L 01/06/18 02:35 Anion Gap 28 mmol/L 01/06/18 02:35 BUN 23 mg/dL (9-20) H 01/06/18 02:35 Creatinine 2.9 mg/dL (0.8-1.5) H 01/06/18 02:35 Estimated GFR 27 ml/min 01/06/18 02:35 BUN/Creatinine Ratio 8 % 01/06/18 02:35 Glucose 96 mg/dL (75-100) 01/06/18 02:35 POC Glucose 113 (70-105) H 12/29/17 07:35 Lactic Acid 3.90 mmol/L (0.7-2.0) H* 12/14/17 17:26 Calcium 9.8 mg/dL (8.4-10.2) 01/06/18 02:35 Phosphorus 2.40 mg/dL (2.5-4.5) L 12/26/17 05:59 Magnesium 1.70 mg/dL (1.7-2.3) 01/03/18 06:24 Iron 78 ug/dL (49-181) 12/27/17 06:34 TIBC 77 mcg/dL (250-450) L 12/27/17 06:34 Ferritin > 2000.0 ng/mL (13.0-400.0) H 12/27/17 06:34 Total Bilirubin 9.80 mg/dL (0.1-1.2) H 01/06/18 02:35 Direct Bilirubin 2.7 mg/dL (0-0.2) H 01/03/18 06:24 Indirect Bilirubin 6.3 mg/dL 01/03/18 06:24 AST 65 units/L (5-40) H 01/06/18 02:35 ALT 23 units/L (7-56) 01/06/18 02:35 Alkaline Phosphatase 68 units/L (35-129) 01/06/18 02:35 Ammonia 30.0 umol/L (25-60) 01/08/18 06:07 Lactate Dehydrogenase 302 units/L (91-180) H 12/27/17 06:34 Total Creatine Kinase 64 units/L (55-170) 12/10/17 23:14 C-Reactive Protein 0.30 mg/dL (0.00-1.30) 12/13/17 14:03 NT-Pro-B Natriuret Pep 9558 pg/mL (0-900) H 12/10/17 23:14 Total Protein 7.6 g/dL (6.3-8.2) 01/06/18 02:35 Albumin 3.5 g/dL (3.9-5) L 01/06/18 02:35 Albumin/Globulin Ratio 0.9 % 01/06/18 02:35 Lipase 7 units/L (13-60) L 12/10/17 23:14 Vitamin B12 1465 pg/mL (211-911) H 12/12/17 19:50 Folate 14.04 ng/mL (7.3-26.0) 12/12/17 19:50 TSH 2.560 mlU/mL (0.270-4.200) 12/16/17 12:37 Total Cortisol 9.5 mcg/dL () 01/02/18 10:45 Urine Color Yellow (Yellow) 12/10/17 23:05 Urine Turbidity Clear (Clear) 12/10/17 23:05 Urine pH 5.0 (5.0-7.0) 12/10/17 23:05 Ur Specific [place] 1.013 (1.003-1.030) 12/10/17 23:05 Urine Protein <15 mg/dl mg/dL (Negative) 12/10/17 23:05 Urine Glucose (UA) Neg mg/dL (Negative) 12/10/17 23:05 Urine Ketones Neg mg/dL (Negative) 12/10/17 23:05 Urine Blood Neg (Negative) 12/10/17 23:05 Urine Nitrite Neg (Negative) 12/10/17 23:05 Ur Reducing Substances Not Reportable 12/10/17 23:05 Urine Bilirubin Neg (Negative) 12/10/17 23:05 Urine Ictotest Not Reportable 12/10/17 23:05 Urine Urobilinogen < 2.0 mg/dL (<2.0) 12/10/17 23:05 Ur Leukocyte Esterase Sm (Negative) 12/10/17 23:05 Urine WBC (Auto) 10.0 /HPF (0.0-6.0) H 12/10/17 23:05 Urine RBC (Auto) 4.0 /HPF (0.0-6.0) 12/10/17 23:05 U Epithel Cells (Auto) < 1.0 /HPF (0-13.0) 12/10/17 23:05 Urine Mucus Few /HPF 12/10/17 23:05 Urine Total Volume 250 12/14/17 Unknown Urine Creatinine 122.5 mg/dL (0.1-20.0) H 12/14/17 Unknown Ur Creatinine 24 Hour 0.3 (0.8-2.8) L 12/14/17 Unknown Fluid Type Peritoneal 12/31/17 Unknown Fluid Color Red 12/31/17 Unknown Fluid Appearance Cloudy 12/31/17 Unknown Fluid WBC 55 /mm3 12/31/17 Unknown Fluid RBC 43461 /mm3 12/31/17 Unknown Fluid Seg Neutrophils 6.0 % 12/31/17 Unknown Fluid Lymphocytes 48.0 % 12/31/17 Unknown Fluid Reactive Lymphs Not Reportable 12/31/17 Unknown Fluid Monocytes 46.0 % 12/31/17 Unknown Fluid Eosinophils Not Reportable 12/31/17 Unknown Fluid Basophils Not Reportable 12/31/17 Unknown Fluid Glucose 124 mg/dL (40-70) H 12/31/17 Unknown Fluid Total Protein < 3.0 (15.0-45.0) L 12/31/17 Unknown Fluid Albumin 1.7 g/dL 12/31/17 Unknown Fluid LDH 186 12/31/17 Unknown Fluid Amylase < 10 12/31/17 Unknown Fluid Triglycerides 48 12/31/17 Unknown Digoxin 0.4 ng/mL (0.9-2.0) L 12/21/17 05:26 Hepatitis A IgM Ab Non-reactive (NonReactive) 12/12/17 19:50 Hep Bs Antigen Non-reactive (Negative) 12/12/17 19:50 Hep B Core IgM Ab Non-reactive (NonReactive) 12/12/17 19:50 Hepatitis C Antibody Non-reactive (NonReactive) 12/12/17 19:50 Miscellaneous Test Flexitest 1 12/12/17 06:42 Blood Type A NEGATIVE 01/06/18 11:00 Antibody Screen Negative 12/30/17 08:44 Direct Antiglob Test Negative 12/12/17 20:41 JOANNE, Poly Interpret Negative 12/12/17 20:41 Crossmatch See Detail 12/30/17 08:44
--- NOTE | 2018-01-08 17:41 | Progress Note ---
Assessment and Plan Bilateral pleural effusions Abnormal CXR, possible PTX(clinically does not have a PTX) Sepsis Acute encephalopathy Severe anemia Lactic acidosis, multifactorial Cirrhosis with esophageal varices Rectal bleeding Coagulopathy Metabolic acidosis, multifactorial Respiratory alkalosis Nonoliguric CARMEN secondary to prerenal azotemia due to hypoperfusion ATN vs HRS Moderate protein calorie malnutrition -PT/INR remains elevated. Needs thoracentesis -Aspiration precautions -continue chronic home medications, including rifaximin and midodrine -Avoid nephrotoxics and adjust all medications for GFRs -HD per Renal service -Continue therapeutic PPI -Monitor off antibiotics -Continue with lactulose to titrate to 2-3 bowel movements a day -SCDs for VTE prophylaxis in view of GIB and coagulopathy -Supportive transfusions - Continue with nutritional support, get RD for calorie count - Continue PT/OT FULL CODE STATUS PROGNOSIS GUARDED Subjective Date of service: 01/08/18 Principal diagnosis: CARMEN on CKD; Acute Encephalopathy; Sepsis Syndrome; Anemia Interval history: CARMEN on CKD; Acute Encephalopathy; Sepsis Syndrome; Anemia Seen and examined. vitals, labs, medications, chart and imaging reviewed. 24 hour events reviewed. No fevers or chills, no nausea or vomiting No shortness of breath. States he feels ok Objective Vital Signs - 12hr 01/08/18 08:37 Temperature 97.9 F Pulse Rate 65 Respiratory 16 Rate Blood Pressure 116/68 O2 Sat by Pulse 95 Oximetry Constitutional: alert, other (chronically ill looking elderly AAM, normocephalic and atraumatic) Eyes: non-icteric ENT: oropharynx moist, other (mallampati 2) Neck: supple, no lymphadenopathy, no JVD, other (no thyromegaly) Effort: normal Ascultation: Bilateral: diminished breath sounds (bases), rhonchi Percussion: Bilateral: not dull, dull (bases) Cardiovascular: regular rate and rhythm, other (S1,S2, no murmurms, gallops or rubs) Gastrointestinal: normoactive bowel sounds, soft, non-tender, other (distended) Integumentary: rash Extremities: no cyanosis, no edema, pulses normal, no ischemia or petechiae, cool Neurologic: non-focal exam, pupils equal and round, motor strength normal and ( weak), other (alert, awake) Psychiatric: other (normal affect, confusion) CBC and BMP: 01/10/18 05:01 01/10/18 05:01 ABG, PT/INR, D-dimer: ABG POC ABG pH 7.452 (7.35-7.45) H 12/12/17 09:13 POC ABG pCO2 22.2 (35-45) L 12/12/17 09:13 POC ABG pO2 75 (80-105) L 12/12/17 09:13 POC ABG HCO3 15.5 12/12/17 09:13 POC ABG Total CO2 16 12/12/17 09:13 POC ABG O2 Sat 96 12/12/17 09:13 PT/INR, D-dimer PT 22.6 Sec. (12.2-14.9) H 01/08/18 06:15 INR 1.86 (0.87-1.13) H 01/08/18 06:15 D-Dimer 1215.06 ng/mlDDU (0-234) H 12/12/17 19:50 Abnormal lab findings: Abnormal Labs 12/10/17 12/10/17 12/10/17 13:14 13:14 23:05 RBC 2.31 L Hgb 7.3 L Hct 21.5 L MCV MCH MCHC RDW 17.7 H Plt Count 61 L Lymph % (Auto) [place] % (Auto) Baso % (Auto) Lymph # [place] # Baso # Seg Neutrophils % Seg Neuts % (Manual) 81.0 H Lymphocytes % (Manual) 11.0 L Eosinophils % (Manual) Basophils % (Manual) Lymphocytes # (Manual) 0.6 L Eosinophils # (Manual) Basophils # (Manual) PT INR APTT Fibrinogen D-Dimer POC ABG pH POC ABG pCO2 POC ABG pO2 Sodium 136 L Potassium 5.2 H Chloride Carbon Dioxide 15 L BUN 47 H Creatinine 5.2 H Glucose 127 H POC Glucose Lactic Acid Calcium Phosphorus Magnesium TIBC Ferritin Total Bilirubin 3.50 H Direct Bilirubin AST 71 H Ammonia Lactate Dehydrogenase NT-Pro-B Natriuret Pep Total Protein Albumin 2.6 L Lipase Vitamin B12 Urine WBC (Auto) 10.0 H Urine Creatinine Ur Creatinine 24 Hour Fluid Glucose Fluid Total Protein Digoxin Crossmatch 12/10/17 12/10/17 12/10/17 23:14 23:14 23:14 RBC Hgb Hct MCV MCH MCHC RDW Plt Count Lymph % (Auto) [place] % (Auto) Baso % (Auto) Lymph # [place] # Baso # Seg Neutrophils % Seg Neuts % (Manual) Lymphocytes % (Manual) Eosinophils % (Manual) Basophils % (Manual) Lymphocytes # (Manual) Eosinophils # (Manual) Basophils # (Manual) PT INR APTT Fibrinogen D-Dimer POC ABG pH POC ABG pCO2 POC ABG pO2 Sodium Potassium Chloride Carbon Dioxide BUN Creatinine Glucose POC Glucose Lactic Acid 2.40 H* Calcium Phosphorus Magnesium TIBC Ferritin Total Bilirubin Direct Bilirubin AST Ammonia 134.0 H Lactate Dehydrogenase NT-Pro-B Natriuret Pep 9558 H Total Protein Albumin Lipase Vitamin B12 Urine WBC (Auto) Urine Creatinine Ur Creatinine 24 Hour Fluid Glucose Fluid Total Protein Digoxin Crossmatch 12/10/17 12/11/17 12/11/17 23:14 00:29 03:33 RBC Hgb Hct MCV MCH MCHC RDW Plt Count Lymph % (Auto) [place] % (Auto) Baso % (Auto) Lymph # [place] # Baso # Seg Neutrophils % Seg Neuts % (Manual) Lymphocytes % (Manual) Eosinophils % (Manual) Basophils % (Manual) Lymphocytes # (Manual) Eosinophils # (Manual) Basophils # (Manual) PT INR APTT Fibrinogen D-Dimer POC ABG pH POC ABG pCO2 POC ABG pO2 Sodium Potassium Chloride Carbon Dioxide BUN Creatinine Glucose POC Glucose Lactic Acid 2.80 H* 3.00 H* Calcium Phosphorus Magnesium TIBC Ferritin Total Bilirubin Direct Bilirubin AST Ammonia Lactate Dehydrogenase NT-Pro-B Natriuret Pep Total Protein Albumin Lipase 7 L Vitamin B12 Urine WBC (Auto) Urine Creatinine Ur Creatinine 24 Hour Fluid Glucose Fluid Total Protein Digoxin Crossmatch 12/11/17 12/11/17 12/11/17 04:08 04:34 04:34 RBC Hgb Hct MCV MCH MCHC RDW Plt Count Lymph % (Auto) [place] % (Auto) Baso % (Auto) Lymph # [place] # Baso # Seg Neutrophils % Seg Neuts % (Manual) Lymphocytes % (Manual) Eosinophils % (Manual) Basophils % (Manual) Lymphocytes # (Manual) Eosinophils # (Manual) Basophils # (Manual) PT 19.1 H INR 1.51 H APTT 45.7 H Fibrinogen D-Dimer POC ABG pH POC ABG pCO2 POC ABG pO2 Sodium Potassium Chloride Carbon Dioxide BUN Creatinine Glucose POC Glucose 113 H Lactic Acid 3.10 H* Calcium Phosphorus Magnesium TIBC Ferritin Total Bilirubin Direct Bilirubin AST Ammonia Lactate Dehydrogenase NT-Pro-B Natriuret Pep Total Protein Albumin Lipase Vitamin B12 Urine WBC (Auto) Urine Creatinine Ur Creatinine 24 Hour Fluid Glucose Fluid Total Protein Digoxin Crossmatch 12/11/17 12/11/17 12/11/17 06:46 07:26 09:42 RBC Hgb Hct MCV MCH MCHC RDW Plt Count Lymph % (Auto) [place] % (Auto) Baso % (Auto) Lymph # [place] # Baso # Seg Neutrophils % Seg Neuts % (Manual) Lymphocytes % (Manual) Eosinophils % (Manual) Basophils % (Manual) Lymphocytes # (Manual) Eosinophils # (Manual) Basophils # (Manual) PT INR APTT Fibrinogen D-Dimer POC ABG pH POC ABG pCO2 POC ABG pO2 Sodium Potassium Chloride Carbon Dioxide BUN Creatinine Glucose POC Glucose Lactic Acid 2.70 H* 2.80 H* 2.90 H* Calcium Phosphorus Magnesium TIBC Ferritin Total Bilirubin Direct Bilirubin AST Ammonia Lactate Dehydrogenase NT-Pro-B Natriuret Pep Total Protein Albumin Lipase Vitamin B12 Urine WBC (Auto) Urine Creatinine Ur Creatinine 24 Hour Fluid Glucose Fluid Total Protein Digoxin Crossmatch 12/11/17 12/11/17 12/11/17 13:12 14:06 23:14 RBC Hgb Hct MCV MCH MCHC RDW Plt Count Lymph % (Auto) [place] % (Auto) Baso % (Auto) Lymph # [place] # Baso # Seg Neutrophils % Seg Neuts % (Manual) Lymphocytes % (Manual) Eosinophils % (Manual) Basophils % (Manual) Lymphocytes # (Manual) Eosinophils # (Manual) Basophils # (Manual) PT INR APTT Fibrinogen D-Dimer POC ABG pH POC ABG pCO2 POC ABG pO2 Sodium Potassium Chloride Carbon Dioxide BUN Creatinine Glucose POC Glucose Lactic Acid 3.10 H* 3.10 H* 3.70 H* Calcium Phosphorus Magnesium TIBC Ferritin Total Bilirubin Direct Bilirubin AST Ammonia Lactate Dehydrogenase NT-Pro-B Natriuret Pep Total Protein Albumin Lipase Vitamin B12 Urine WBC (Auto) Urine Creatinine Ur Creatinine 24 Hour Fluid Glucose Fluid Total Protein Digoxin Crossmatch 12/11/17 12/12/17 12/12/17 23:23 03:41 03:41 RBC 2.17 L Hgb 7.0 L Hct 19.9 L* MCV MCH 33 H MCHC 35 H RDW 17.7 H Plt Count 62 L Lymph % (Auto) [place] % (Auto) Baso % (Auto) Lymph # [place] # Baso # Seg Neutrophils % Seg Neuts % (Manual) 91.0 H Lymphocytes % (Manual) 3.0 L Eosinophils % (Manual) Basophils % (Manual) Lymphocytes # (Manual) 0.2 L Eosinophils # (Manual) Basophils # (Manual) PT INR APTT Fibrinogen D-Dimer POC ABG pH POC ABG pCO2 POC ABG pO2 Sodium Potassium 5.4 H Chloride Carbon Dioxide 12 L BUN 47 H Creatinine 4.5 H Glucose 103 H POC Glucose Lactic Acid Calcium 8.0 L Phosphorus Magnesium TIBC Ferritin Total Bilirubin 3.60 H Direct Bilirubin AST 58 H Ammonia Lactate Dehydrogenase NT-Pro-B Natriuret Pep Total Protein 5.9 L Albumin 2.5 L Lipase Vitamin B12 Urine WBC (Auto) Urine Creatinine Ur Creatinine 24 Hour Fluid Glucose Fluid Total Protein Digoxin Crossmatch See Detail 12/12/17 12/12/17 12/12/17 07:00 09:13 17:55 RBC 2.06 L Hgb 6.6 L Hct 18.6 L* MCV MCH MCHC 36 H RDW 17.8 H Plt Count 77 L Lymph % (Auto) [place] % (Auto) Baso % (Auto) Lymph # [place] # Baso # Seg Neutrophils % Seg Neuts % (Manual) Lymphocytes % (Manual) Eosinophils % (Manual) Basophils % (Manual) Lymphocytes # (Manual) Eosinophils # (Manual) Basophils # (Manual) PT INR APTT Fibrinogen D-Dimer POC ABG pH 7.452 H POC ABG pCO2 22.2 L POC ABG pO2 75 L Sodium Potassium Chloride Carbon Dioxide BUN Creatinine Glucose POC Glucose 119 H Lactic Acid Calcium Phosphorus Magnesium TIBC Ferritin Total Bilirubin Direct Bilirubin AST Ammonia Lactate Dehydrogenase NT-Pro-B Natriuret Pep Total Protein Albumin Lipase Vitamin B12 Urine WBC (Auto) Urine Creatinine Ur Creatinine 24 Hour Fluid Glucose Fluid Total Protein Digoxin Crossmatch 12/12/17 12/12/17 12/12/17 19:50 19:50 19:50 RBC 2.40 L Hgb 7.8 L Hct 21.3 L MCV MCH 33 H MCHC 37 H RDW 16.1 H Plt Count 99 L Lymph % (Auto) [place] % (Auto) Baso % (Auto) Lymph # [place] # Baso # Seg Neutrophils % Seg Neuts % (Manual) 87.0 H Lymphocytes % (Manual) 5.0 L Eosinophils % (Manual) Basophils % (Manual) Lymphocytes # (Manual) 0.3 L Eosinophils # (Manual) Basophils # (Manual) PT 21.9 H INR 1.79 H APTT 41.5 H Fibrinogen 128 L D-Dimer 1215.06 H POC ABG pH POC ABG pCO2 POC ABG pO2 Sodium Potassium Chloride Carbon Dioxide BUN Creatinine Glucose POC Glucose Lactic Acid Calcium Phosphorus Magnesium TIBC Ferritin Total Bilirubin 4.10 H Direct Bilirubin 1.6 H AST Ammonia Lactate Dehydrogenase NT-Pro-B Natriuret Pep Total Protein Albumin Lipase Vitamin B12 Urine WBC (Auto) Urine Creatinine Ur Creatinine 24 Hour Fluid Glucose Fluid Total Protein Digoxin Crossmatch 12/12/17 12/12/17 12/12/17 19:50 19:50 23:46 RBC Hgb Hct MCV MCH MCHC RDW Plt Count Lymph % (Auto) [place] % (Auto) Baso % (Auto) Lymph # [place] # Baso # Seg Neutrophils % Seg Neuts % (Manual) Lymphocytes % (Manual) Eosinophils % (Manual) Basophils % (Manual) Lymphocytes # (Manual) Eosinophils # (Manual) Basophils # (Manual) PT INR APTT Fibrinogen D-Dimer POC ABG pH POC ABG pCO2 POC ABG pO2 Sodium Potassium Chloride Carbon Dioxide BUN Creatinine Glucose POC Glucose 110 H Lactic Acid Calcium Phosphorus Magnesium TIBC Ferritin Total Bilirubin Direct Bilirubin AST Ammonia Lactate Dehydrogenase 213 H NT-Pro-B Natriuret Pep Total Protein Albumin Lipase Vitamin B12 1465 H Urine WBC (Auto) Urine Creatinine Ur Creatinine 24 Hour Fluid Glucose Fluid Total Protein Digoxin Crossmatch 12/13/17 12/13/17 12/13/17 04:00 04:00 05:12 RBC 2.32 L Hgb 7.4 L Hct 20.8 L MCV MCH MCHC 36 H RDW 16.1 H Plt Count 134 L Lymph % (Auto) 13.1 L [place] % (Auto) 7.9 H Baso % (Auto) Lymph # 0.8 L [place] # Baso # Seg Neutrophils % 76.3 H Seg Neuts % (Manual) Lymphocytes % (Manual) Eosinophils % (Manual) Basophils % (Manual) Lymphocytes # (Manual) Eosinophils # (Manual) Basophils # (Manual) PT INR APTT Fibrinogen D-Dimer POC ABG pH POC ABG pCO2 POC ABG pO2 Sodium Potassium Chloride Carbon Dioxide 21 L D BUN 48 H Creatinine 4.6 H Glucose 104 H POC Glucose 134 H Lactic Acid Calcium 8.1 L Phosphorus Magnesium TIBC Ferritin Total Bilirubin 4.70 H Direct Bilirubin AST 43 H Ammonia Lactate Dehydrogenase NT-Pro-B Natriuret Pep Total Protein 5.8 L Albumin 3.1 L Lipase Vitamin B12 Urine WBC (Auto) Urine Creatinine Ur Creatinine 24 Hour Fluid Glucose Fluid Total Protein Digoxin Crossmatch 12/13/17 12/13/17 12/13/17 08:45 12:25 14:03 RBC Hgb Hct MCV MCH MCHC RDW Plt Count Lymph % (Auto) [place] % (Auto) Baso % (Auto) Lymph # [place] # Baso # Seg Neutrophils % Seg Neuts % (Manual) Lymphocytes % (Manual) Eosinophils % (Manual) Basophils % (Manual) Lymphocytes # (Manual) Eosinophils # (Manual) Basophils # (Manual) PT 20.5 H INR 1.65 H APTT Fibrinogen D-Dimer POC ABG pH POC ABG pCO2 POC ABG pO2 Sodium Potassium Chloride Carbon Dioxide BUN Creatinine Glucose POC Glucose 112 H Lactic Acid 3.70 H* Calcium Phosphorus Magnesium TIBC Ferritin Total Bilirubin Direct Bilirubin AST Ammonia Lactate Dehydrogenase NT-Pro-B Natriuret Pep Total Protein Albumin Lipase Vitamin B12 Urine WBC (Auto) Urine Creatinine Ur Creatinine 24 Hour Fluid Glucose Fluid Total Protein Digoxin Crossmatch 12/13/17 12/13/17 12/13/17 14:03 18:52 21:09 RBC Hgb Hct MCV MCH MCHC RDW Plt Count Lymph % (Auto) [place] % (Auto) Baso % (Auto) Lymph # [place] # Baso # Seg Neutrophils % Seg Neuts % (Manual) Lymphocytes % (Manual) Eosinophils % (Manual) Basophils % (Manual) Lymphocytes # (Manual) Eosinophils # (Manual) Basophils # (Manual) PT INR APTT Fibrinogen D-Dimer POC ABG pH POC ABG pCO2 POC ABG pO2 Sodium Potassium Chloride Carbon Dioxide BUN Creatinine Glucose POC Glucose 110 H Lactic Acid 4.00 H* Calcium Phosphorus Magnesium TIBC Ferritin Total Bilirubin Direct Bilirubin AST Ammonia 87.0 H Lactate Dehydrogenase NT-Pro-B Natriuret Pep Total Protein Albumin Lipase Vitamin B12 Urine WBC (Auto) Urine Creatinine Ur Creatinine 24 Hour Fluid Glucose Fluid Total Protein Digoxin Crossmatch 12/14/17 12/14/17 12/14/17 00:25 03:30 03:30 RBC 2.29 L Hgb 7.3 L Hct 20.7 L MCV MCH MCHC 35 H RDW 16.2 H Plt Count 84 L Lymph % (Auto) 12.8 L [place] % (Auto) 8.3 H Baso % (Auto) Lymph # 0.6 L [place] # Baso # Seg Neutrophils % 77.2 H Seg Neuts % (Manual) Lymphocytes % (Manual) Eosinophils % (Manual) Basophils % (Manual) Lymphocytes # (Manual) Eosinophils # (Manual) Basophils # (Manual) PT INR APTT Fibrinogen D-Dimer POC ABG pH POC ABG pCO2 POC ABG pO2 Sodium Potassium Chloride 96.1 L Carbon Dioxide BUN 48 H Creatinine 4.6 H Glucose 125 H POC Glucose 131 H Lactic Acid Calcium 7.9 L Phosphorus Magnesium TIBC Ferritin Total Bilirubin 4.70 H Direct Bilirubin AST 45 H Ammonia Lactate Dehydrogenase NT-Pro-B Natriuret Pep Total Protein 6.1 L Albumin 3.4 L Lipase Vitamin B12 Urine WBC (Auto) Urine Creatinine Ur Creatinine 24 Hour Fluid Glucose Fluid Total Protein Digoxin Crossmatch 12/14/17 12/14/17 12/14/17 05:31 12:26 12:55 RBC Hgb Hct MCV MCH MCHC RDW Plt Count Lymph % (Auto) [place] % (Auto) Baso % (Auto) Lymph # [place] # Baso # Seg Neutrophils % Seg Neuts % (Manual) Lymphocytes % (Manual) Eosinophils % (Manual) Basophils % (Manual) Lymphocytes # (Manual) Eosinophils # (Manual) Basophils # (Manual) PT INR APTT Fibrinogen D-Dimer POC ABG pH POC ABG pCO2 POC ABG pO2 Sodium Potassium Chloride Carbon Dioxide BUN Creatinine Glucose POC Glucose 125 H 117 H Lactic Acid 3.40 H* Calcium Phosphorus Magnesium TIBC Ferritin Total Bilirubin Direct Bilirubin AST Ammonia Lactate Dehydrogenase NT-Pro-B Natriuret Pep Total Protein Albumin Lipase Vitamin B12 Urine WBC (Auto) Urine Creatinine Ur Creatinine 24 Hour Fluid Glucose Fluid Total Protein Digoxin Crossmatch 12/14/17 12/14/17 12/14/17 15:26 17:26 18:07 RBC Hgb Hct MCV MCH MCHC RDW Plt Count Lymph % (Auto) [place] % (Auto) Baso % (Auto) Lymph # [place] # Baso # Seg Neutrophils % Seg Neuts % (Manual) Lymphocytes % (Manual) Eosinophils % (Manual) Basophils % (Manual) Lymphocytes # (Manual) Eosinophils # (Manual) Basophils # (Manual) PT INR APTT Fibrinogen D-Dimer POC ABG pH POC ABG pCO2 POC ABG pO2 Sodium Potassium Chloride Carbon Dioxide BUN Creatinine Glucose POC Glucose 143 H Lactic Acid 4.00 H* 3.90 H* Calcium Phosphorus Magnesium TIBC Ferritin Total Bilirubin Direct Bilirubin AST Ammonia Lactate Dehydrogenase NT-Pro-B Natriuret Pep Total Protein Albumin Lipase Vitamin B12 Urine WBC (Auto) Urine Creatinine Ur Creatinine 24 Hour Fluid Glucose Fluid Total Protein Digoxin Crossmatch 12/14/17 12/15/17 12/15/17 Unknown 00:08 04:51 RBC 2.27 L Hgb 7.3 L Hct 20.7 L MCV MCH MCHC 35 H RDW 16.1 H Plt Count 92 L Lymph % (Auto) 12.5 L [place] % (Auto) 10.4 H Baso % (Auto) Lymph # 0.6 L [place] # Baso # Seg Neutrophils % 74.7 H Seg Neuts % (Manual) Lymphocytes % (Manual) Eosinophils % (Manual) Basophils % (Manual) Lymphocytes # (Manual) Eosinophils # (Manual) Basophils # (Manual) PT INR APTT Fibrinogen D-Dimer POC ABG pH POC ABG pCO2 POC ABG pO2 Sodium Potassium Chloride Carbon Dioxide BUN Creatinine Glucose POC Glucose 124 H Lactic Acid Calcium Phosphorus Magnesium TIBC Ferritin Total Bilirubin Direct Bilirubin AST Ammonia Lactate Dehydrogenase NT-Pro-B Natriuret Pep Total Protein Albumin Lipase Vitamin B12 Urine WBC (Auto) Urine Creatinine 122.5 H Ur Creatinine 24 Hour 0.3 L Fluid Glucose Fluid Total Protein Digoxin Crossmatch 12/15/17 12/15/17 12/15/17 04:51 04:51 05:56 RBC Hgb Hct MCV MCH MCHC RDW Plt Count Lymph % (Auto) [place] % (Auto) Baso % (Auto) Lymph # [place] # Baso # Seg Neutrophils % Seg Neuts % (Manual) Lymphocytes % (Manual) Eosinophils % (Manual) Basophils % (Manual) Lymphocytes # (Manual) Eosinophils # (Manual) Basophils # (Manual) PT INR APTT Fibrinogen D-Dimer POC ABG pH POC ABG pCO2 POC ABG pO2 Sodium Potassium 3.5 L Chloride 92.6 L Carbon Dioxide BUN 50 H Creatinine 4.8 H Glucose 141 H POC Glucose 143 H Lactic Acid Calcium 7.9 L Phosphorus Magnesium TIBC Ferritin Total Bilirubin 3.60 H Direct Bilirubin AST 44 H Ammonia 24.0 L Lactate Dehydrogenase NT-Pro-B Natriuret Pep Total Protein 6.1 L Albumin 3.8 L Lipase Vitamin B12 Urine WBC (Auto) Urine Creatinine Ur Creatinine 24 Hour Fluid Glucose Fluid Total Protein Digoxin Crossmatch 12/15/17 12/15/17 12/16/17 12:17 23:10 07:04 RBC Hgb Hct MCV MCH MCHC RDW Plt Count Lymph % (Auto) [place] % (Auto) Baso % (Auto) Lymph # [place] # Baso # Seg Neutrophils % Seg Neuts % (Manual) Lymphocytes % (Manual) Eosinophils % (Manual) Basophils % (Manual) Lymphocytes # (Manual) Eosinophils # (Manual) Basophils # (Manual) PT INR APTT Fibrinogen D-Dimer POC ABG pH POC ABG pCO2 POC ABG pO2 Sodium Potassium Chloride Carbon Dioxide BUN Creatinine Glucose POC Glucose 127 H 157 H 147 H Lactic Acid Calcium Phosphorus Magnesium TIBC Ferritin Total Bilirubin Direct Bilirubin AST Ammonia Lactate Dehydrogenase NT-Pro-B Natriuret Pep Total Protein Albumin Lipase Vitamin B12 Urine WBC (Auto) Urine Creatinine Ur Creatinine 24 Hour Fluid Glucose Fluid Total Protein Digoxin Crossmatch 12/16/17 12/16/17 12/16/17 11:35 12:37 12:37 RBC 2.21 L Hgb 6.9 L Hct 20.2 L MCV MCH MCHC RDW 16.2 H Plt Count 50 L Lymph % (Auto) [place] % (Auto) 9.7 H Baso % (Auto) Lymph # 0.7 L [place] # Baso # Seg Neutrophils % 73.1 H Seg Neuts % (Manual) Lymphocytes % (Manual) Eosinophils % (Manual) Basophils % (Manual) Lymphocytes # (Manual) Eosinophils # (Manual) Basophils # (Manual) PT INR APTT Fibrinogen D-Dimer POC ABG pH POC ABG pCO2 POC ABG pO2 Sodium Potassium Chloride 88.2 L Carbon Dioxide BUN 52 H Creatinine 5.5 H Glucose 107 H POC Glucose 134 H Lactic Acid Calcium 7.8 L Phosphorus Magnesium TIBC Ferritin Total Bilirubin 2.60 H Direct Bilirubin AST 49 H Ammonia Lactate Dehydrogenase NT-Pro-B Natriuret Pep Total Protein Albumin 3.6 L Lipase Vitamin B12 Urine WBC (Auto) Urine Creatinine Ur Creatinine 24 Hour Fluid Glucose Fluid Total Protein Digoxin Crossmatch 12/16/17 12/16/17 12/16/17 18:06 20:45 23:34 RBC Hgb Hct MCV MCH MCHC RDW Plt Count Lymph % (Auto) [place] % (Auto) Baso % (Auto) Lymph # [place] # Baso # Seg Neutrophils % Seg Neuts % (Manual) Lymphocytes % (Manual) Eosinophils % (Manual) Basophils % (Manual) Lymphocytes # (Manual) Eosinophils # (Manual) Basophils # (Manual) PT INR APTT Fibrinogen D-Dimer POC ABG pH POC ABG pCO2 POC ABG pO2 Sodium Potassium Chloride Carbon Dioxide BUN Creatinine Glucose POC Glucose 133 H 139 H Lactic Acid Calcium Phosphorus Magnesium TIBC Ferritin Total Bilirubin Direct Bilirubin AST Ammonia Lactate Dehydrogenase NT-Pro-B Natriuret Pep Total Protein Albumin Lipase Vitamin B12 Urine WBC (Auto) Urine Creatinine Ur Creatinine 24 Hour Fluid Glucose Fluid Total Protein Digoxin Crossmatch See Detail 12/17/17 12/17/17 12/17/17 05:27 05:27 06:11 RBC 2.10 L Hgb 6.6 L Hct 19.2 L* MCV MCH MCHC 35 H RDW 16.5 H Plt Count 65 L Lymph % (Auto) 12.6 L [place] % (Auto) 9.6 H Baso % (Auto) Lymph # 0.7 L [place] # Baso # Seg Neutrophils % 75.8 H Seg Neuts % (Manual) Lymphocytes % (Manual) Eosinophils % (Manual) Basophils % (Manual) Lymphocytes # (Manual) Eosinophils # (Manual) Basophils # (Manual) PT INR APTT Fibrinogen D-Dimer POC ABG pH POC ABG pCO2 POC ABG pO2 Sodium 135 L Potassium 3.4 L Chloride 84.9 L Carbon Dioxide 33 H BUN 53 H Creatinine 5.9 H Glucose POC Glucose 110 H Lactic Acid Calcium 7.7 L Phosphorus Magnesium TIBC Ferritin Total Bilirubin 2.70 H Direct Bilirubin AST 50 H Ammonia Lactate Dehydrogenase NT-Pro-B Natriuret Pep Total Protein 6.2 L Albumin 3.7 L Lipase Vitamin B12 Urine WBC (Auto) Urine Creatinine Ur Creatinine 24 Hour Fluid Glucose Fluid Total Protein Digoxin Crossmatch 12/17/17 12/18/17 12/18/17 09:34 00:05 05:21 RBC 3.35 L Hgb 10.3 L D Hct 30.4 L D MCV MCH MCHC RDW 16.2 H Plt Count 57 L Lymph % (Auto) 8.0 L [place] % (Auto) 10.9 H Baso % (Auto) Lymph # 0.6 L [place] # Baso # Seg Neutrophils % 80.2 H Seg Neuts % (Manual) Lymphocytes % (Manual) Eosinophils % (Manual) Basophils % (Manual) Lymphocytes # (Manual) Eosinophils # (Manual) Basophils # (Manual) PT 23.9 H INR 1.99 H APTT Fibrinogen D-Dimer POC ABG pH POC ABG pCO2 POC ABG pO2 Sodium Potassium Chloride Carbon Dioxide BUN Creatinine Glucose POC Glucose 132 H Lactic Acid Calcium Phosphorus Magnesium TIBC Ferritin Total Bilirubin Direct Bilirubin AST Ammonia Lactate Dehydrogenase NT-Pro-B Natriuret Pep Total Protein Albumin Lipase Vitamin B12 Urine WBC (Auto) Urine Creatinine Ur Creatinine 24 Hour Fluid Glucose Fluid Total Protein Digoxin Crossmatch 12/18/17 12/18/17 12/18/17 05:21 06:16 11:11 RBC Hgb Hct MCV MCH MCHC RDW Plt Count Lymph % (Auto) [place] % (Auto) Baso % (Auto) Lymph # [place] # Baso # Seg Neutrophils % Seg Neuts % (Manual) Lymphocytes % (Manual) Eosinophils % (Manual) Basophils % (Manual) Lymphocytes # (Manual) Eosinophils # (Manual) Basophils # (Manual) PT 34.7 H INR 3.17 H APTT Fibrinogen D-Dimer POC ABG pH POC ABG pCO2 POC ABG pO2 Sodium Potassium 3.5 L Chloride 87.1 L Carbon Dioxide BUN 35 H Creatinine 4.3 H Glucose 110 H POC Glucose 116 H Lactic Acid Calcium 8.1 L Phosphorus Magnesium TIBC Ferritin Total Bilirubin 5.10 H Direct Bilirubin AST 56 H Ammonia Lactate Dehydrogenase NT-Pro-B Natriuret Pep Total Protein Albumin Lipase Vitamin B12 Urine WBC (Auto) Urine Creatinine Ur Creatinine 24 Hour Fluid Glucose Fluid Total Protein Digoxin Crossmatch 12/18/17 12/18/17 12/18/17 13:10 17:52 22:04 RBC Hgb Hct MCV MCH MCHC RDW Plt Count Lymph % (Auto) [place] % (Auto) Baso % (Auto) Lymph # [place] # Baso # Seg Neutrophils % Seg Neuts % (Manual) Lymphocytes % (Manual) Eosinophils % (Manual) Basophils % (Manual) Lymphocytes # (Manual) Eosinophils # (Manual) Basophils # (Manual) PT 25.9 H INR 2.20 H APTT Fibrinogen D-Dimer POC ABG pH POC ABG pCO2 POC ABG pO2 Sodium Potassium Chloride Carbon Dioxide BUN Creatinine Glucose POC Glucose 114 H 108 H Lactic Acid Calcium Phosphorus Magnesium TIBC Ferritin Total Bilirubin Direct Bilirubin AST Ammonia Lactate Dehydrogenase NT-Pro-B Natriuret Pep Total Protein Albumin Lipase Vitamin B12 Urine WBC (Auto) Urine Creatinine Ur Creatinine 24 Hour Fluid Glucose Fluid Total Protein Digoxin Crossmatch 12/19/17 12/19/17 12/19/17 05:55 05:55 10:20 RBC 2.85 L Hgb 9.1 L Hct 25.7 L MCV MCH MCHC 35 H RDW 16.4 H Plt Count 61 L Lymph % (Auto) [place] % (Auto) Baso % (Auto) Lymph # [place] # Baso # Seg Neutrophils % Seg Neuts % (Manual) Lymphocytes % (Manual) Eosinophils % (Manual) Basophils % (Manual) Lymphocytes # (Manual) Eosinophils # (Manual) Basophils # (Manual) PT INR APTT Fibrinogen D-Dimer POC ABG pH POC ABG pCO2 POC ABG pO2 Sodium Potassium Chloride 94.5 L Carbon Dioxide BUN 27 H Creatinine 3.6 H Glucose POC Glucose 131 H Lactic Acid Calcium 8.2 L Phosphorus Magnesium TIBC Ferritin Total Bilirubin Direct Bilirubin AST Ammonia Lactate Dehydrogenase NT-Pro-B Natriuret Pep Total Protein Albumin Lipase Vitamin B12 Urine WBC (Auto) Urine Creatinine Ur Creatinine 24 Hour Fluid Glucose Fluid Total Protein Digoxin Crossmatch 12/19/17 12/21/17 12/21/17 11:46 05:26 05:26 RBC 2.60 L Hgb 8.4 L Hct 23.9 L MCV MCH MCHC 35 H RDW 16.2 H Plt Count 57 L Lymph % (Auto) 12.4 L [place] % (Auto) 10.7 H Baso % (Auto) Lymph # [place] # 1.0 H Baso # Seg Neutrophils % 74.8 H Seg Neuts % (Manual) Lymphocytes % (Manual) Eosinophils % (Manual) Basophils % (Manual) Lymphocytes # (Manual) Eosinophils # (Manual) Basophils # (Manual) PT 26.2 H INR 2.23 H APTT Fibrinogen D-Dimer POC ABG pH POC ABG pCO2 POC ABG pO2 Sodium Potassium Chloride Carbon Dioxide BUN Creatinine Glucose POC Glucose Lactic Acid Calcium Phosphorus Magnesium TIBC Ferritin Total Bilirubin Direct Bilirubin AST Ammonia Lactate Dehydrogenase NT-Pro-B Natriuret Pep Total Protein Albumin Lipase Vitamin B12 Urine WBC (Auto) Urine Creatinine Ur Creatinine 24 Hour Fluid Glucose Fluid Total Protein Digoxin 0.4 L Crossmatch 12/21/17 12/23/17 12/24/17 09:40 08:15 04:51 RBC 1.80 L Hgb 5.9 L* Hct 17.0 L* D MCV MCH 33 H MCHC 35 H RDW 16.5 H Plt Count 53 L Lymph % (Auto) [place] % (Auto) Baso % (Auto) Lymph # [place] # Baso # Seg Neutrophils % Seg Neuts % (Manual) Lymphocytes % (Manual) Eosinophils % (Manual) Basophils % (Manual) Lymphocytes # (Manual) Eosinophils # (Manual) Basophils # (Manual) PT 26.4 H 27.9 H INR 2.26 H 2.42 H APTT Fibrinogen D-Dimer POC ABG pH POC ABG pCO2 POC ABG pO2 Sodium Potassium Chloride Carbon Dioxide BUN Creatinine Glucose POC Glucose Lactic Acid Calcium Phosphorus Magnesium TIBC Ferritin Total Bilirubin Direct Bilirubin AST Ammonia Lactate Dehydrogenase NT-Pro-B Natriuret Pep Total Protein Albumin Lipase Vitamin B12 Urine WBC (Auto) Urine Creatinine Ur Creatinine 24 Hour Fluid Glucose Fluid Total Protein Digoxin Crossmatch 12/24/17 12/24/17 12/24/17 04:51 06:25 08:20 RBC Hgb Hct MCV MCH MCHC RDW Plt Count Lymph % (Auto) [place] % (Auto) Baso % (Auto) Lymph # [place] # Baso # Seg Neutrophils % Seg Neuts % (Manual) Lymphocytes % (Manual) Eosinophils % (Manual) Basophils % (Manual) Lymphocytes # (Manual) Eosinophils # (Manual) Basophils # (Manual) PT 40.8 H INR 3.87 H APTT Fibrinogen D-Dimer POC ABG pH POC ABG pCO2 POC ABG pO2 Sodium Potassium 3.5 L Chloride Carbon Dioxide BUN 21 H Creatinine 4.4 H Glucose POC Glucose Lactic Acid Calcium 8.1 L Phosphorus Magnesium TIBC Ferritin Total Bilirubin Direct Bilirubin AST Ammonia Lactate Dehydrogenase NT-Pro-B Natriuret Pep Total Protein Albumin Lipase Vitamin B12 Urine WBC (Auto) Urine Creatinine Ur Creatinine 24 Hour Fluid Glucose Fluid Total Protein Digoxin Crossmatch See Detail 12/24/17 12/24/17 12/25/17 19:21 19:21 05:27 RBC 2.31 L Hgb 7.3 L 7.4 L Hct 20.4 L 21.3 L MCV MCH MCHC 35 H RDW 15.9 H Plt Count 39 L Lymph % (Auto) [place] % (Auto) 10.8 H Baso % (Auto) Lymph # 0.9 L [place] # Baso # Seg Neutrophils % 71.9 H Seg Neuts % (Manual) Lymphocytes % (Manual) Eosinophils % (Manual) Basophils % (Manual) Lymphocytes # (Manual) Eosinophils # (Manual) Basophils # (Manual) PT 21.3 H INR 1.73 H APTT Fibrinogen D-Dimer POC ABG pH POC ABG pCO2 POC ABG pO2 Sodium Potassium Chloride Carbon Dioxide BUN Creatinine Glucose POC Glucose Lactic Acid Calcium Phosphorus Magnesium TIBC Ferritin Total Bilirubin Direct Bilirubin AST Ammonia Lactate Dehydrogenase NT-Pro-B Natriuret Pep Total Protein Albumin Lipase Vitamin B12 Urine WBC (Auto) Urine Creatinine Ur Creatinine 24 Hour Fluid Glucose Fluid Total Protein Digoxin Crossmatch 12/25/17 12/25/17 12/25/17 05:27 05:27 12:24 RBC Hgb Hct MCV MCH MCHC RDW Plt Count Lymph % (Auto) [place] % (Auto) Baso % (Auto) Lymph # [place] # Baso # Seg Neutrophils % Seg Neuts % (Manual) Lymphocytes % (Manual) Eosinophils % (Manual) Basophils % (Manual) Lymphocytes # (Manual) Eosinophils # (Manual) Basophils # (Manual) PT 22.1 H INR 1.81 H APTT Fibrinogen D-Dimer POC ABG pH POC ABG pCO2 POC ABG pO2 Sodium Potassium 3.5 L Chloride 96.7 L Carbon Dioxide BUN Creatinine 3.2 H Glucose POC Glucose 140 H Lactic Acid Calcium 8.1 L Phosphorus Magnesium TIBC Ferritin Total Bilirubin Direct Bilirubin AST Ammonia Lactate Dehydrogenase NT-Pro-B Natriuret Pep Total Protein Albumin Lipase Vitamin B12 Urine WBC (Auto) Urine Creatinine Ur Creatinine 24 Hour Fluid Glucose Fluid Total Protein Digoxin Crossmatch 12/26/17 12/26/17 12/27/17 05:59 05:59 06:34 RBC 2.01 L 2.52 L Hgb 6.6 L 8.2 L Hct 18.6 L* 23.2 L MCV MCH 33 H MCHC 35 H 35 H RDW 16.6 H 15.3 H Plt Count 45 L 39 L Lymph % (Auto) 11.6 L [place] % (Auto) 10.3 H 11.2 H Baso % (Auto) Lymph # 1.0 L 0.7 L [place] # Baso # Seg Neutrophils % 72.2 H 75.4 H Seg Neuts % (Manual) Lymphocytes % (Manual) Eosinophils % (Manual) Basophils % (Manual) Lymphocytes # (Manual) Eosinophils # (Manual) Basophils # (Manual) PT INR APTT Fibrinogen D-Dimer POC ABG pH POC ABG pCO2 POC ABG pO2 Sodium Potassium 3.3 L Chloride Carbon Dioxide BUN Creatinine 3.8 H Glucose 110 H POC Glucose Lactic Acid Calcium Phosphorus 2.40 L Magnesium 1.40 L TIBC Ferritin Total Bilirubin 7.10 H Direct Bilirubin AST 73 H Ammonia Lactate Dehydrogenase NT-Pro-B Natriuret Pep Total Protein Albumin 3.5 L Lipase Vitamin B12 Urine WBC (Auto) Urine Creatinine Ur Creatinine 24 Hour Fluid Glucose Fluid Total Protein Digoxin Crossmatch 12/27/17 12/27/17 12/27/17 06:34 06:34 06:34 RBC Hgb Hct MCV MCH MCHC RDW Plt Count Lymph % (Auto) [place] % (Auto) Baso % (Auto) Lymph # [place] # Baso # Seg Neutrophils % Seg Neuts % (Manual) Lymphocytes % (Manual) Eosinophils % (Manual) Basophils % (Manual) Lymphocytes # (Manual) Eosinophils # (Manual) Basophils # (Manual) PT INR APTT Fibrinogen D-Dimer POC ABG pH POC ABG pCO2 POC ABG pO2 Sodium Potassium 3.3 L Chloride 95.4 L Carbon Dioxide BUN Creatinine 2.6 H Glucose 112 H POC Glucose Lactic Acid Calcium 8.1 L Phosphorus Magnesium TIBC 77 L Ferritin > 2000.0 H Total Bilirubin 8.00 H Direct Bilirubin AST 89 H Ammonia Lactate Dehydrogenase 302 H NT-Pro-B Natriuret Pep Total Protein Albumin 3.7 L Lipase Vitamin B12 Urine WBC (Auto) Urine Creatinine Ur Creatinine 24 Hour Fluid Glucose Fluid Total Protein Digoxin Crossmatch 12/28/17 12/28/17 12/29/17 06:24 09:00 00:30 RBC 2.25 L Hgb 7.5 L Hct 21.1 L MCV MCH 33 H MCHC 35 H RDW 16.2 H Plt Count 78 L D Lymph % (Auto) 12.5 L [place] % (Auto) 12.3 H Baso % (Auto) Lymph # 0.9 L [place] # 0.9 H Baso # Seg Neutrophils % 73.3 H Seg Neuts % (Manual) Lymphocytes % (Manual) Eosinophils % (Manual) Basophils % (Manual) Lymphocytes # (Manual) Eosinophils # (Manual) Basophils # (Manual) PT 23.7 H INR 1.97 H APTT 53.1 H Fibrinogen D-Dimer POC ABG pH POC ABG pCO2 POC ABG pO2 Sodium Potassium Chloride Carbon Dioxide BUN Creatinine Glucose POC Glucose 148 H Lactic Acid Calcium Phosphorus Magnesium TIBC Ferritin Total Bilirubin Direct Bilirubin AST Ammonia Lactate Dehydrogenase NT-Pro-B Natriuret Pep Total Protein Albumin Lipase Vitamin B12 Urine WBC (Auto) Urine Creatinine Ur Creatinine 24 Hour Fluid Glucose Fluid Total Protein Digoxin Crossmatch 12/29/17 12/29/17 12/29/17 00:34 03:59 03:59 RBC 2.19 L Hgb 7.2 L Hct 20.7 L MCV 95 H MCH 33 H MCHC 35 H RDW 16.9 H Plt Count 75 L Lymph % (Auto) [place] % (Auto) 10.8 H Baso % (Auto) Lymph # [place] # Baso # Seg Neutrophils % 70.8 H Seg Neuts % (Manual) Lymphocytes % (Manual) Eosinophils % (Manual) Basophils % (Manual) Lymphocytes # (Manual) Eosinophils # (Manual) Basophils # (Manual) PT 25.7 H INR 2.18 H APTT Fibrinogen D-Dimer POC ABG pH POC ABG pCO2 POC ABG pO2 Sodium Potassium Chloride Carbon Dioxide BUN Creatinine 2.3 H Glucose 111 H POC Glucose Lactic Acid Calcium Phosphorus Magnesium TIBC Ferritin Total Bilirubin 8.20 H Direct Bilirubin AST 66 H Ammonia Lactate Dehydrogenase NT-Pro-B Natriuret Pep Total Protein Albumin 3.5 L Lipase Vitamin B12 Urine WBC (Auto) Urine Creatinine Ur Creatinine 24 Hour Fluid Glucose Fluid Total Protein Digoxin Crossmatch 12/29/17 12/30/17 12/30/17 07:35 07:51 08:27 RBC 1.97 L Hgb 6.7 L Hct 18.8 L* MCV 96 H MCH 34 H MCHC 36 H RDW 17.6 H Plt Count 76 L Lymph % (Auto) [place] % (Auto) 10.5 H Baso % (Auto) Lymph # 1.0 L [place] # Baso # Seg Neutrophils % 72.4 H Seg Neuts % (Manual) Lymphocytes % (Manual) Eosinophils % (Manual) Basophils % (Manual) Lymphocytes # (Manual) Eosinophils # (Manual) Basophils # (Manual) PT INR APTT Fibrinogen D-Dimer POC ABG pH POC ABG pCO2 POC ABG pO2 Sodium Potassium Chloride Carbon Dioxide BUN Creatinine Glucose POC Glucose 113 H Lactic Acid Calcium Phosphorus Magnesium 1.50 L TIBC Ferritin Total Bilirubin Direct Bilirubin AST Ammonia Lactate Dehydrogenase NT-Pro-B Natriuret Pep Total Protein Albumin Lipase Vitamin B12 Urine WBC (Auto) Urine Creatinine Ur Creatinine 24 Hour Fluid Glucose Fluid Total Protein Digoxin Crossmatch 12/30/17 12/31/17 12/31/17 08:44 12:59 12:59 RBC 2.49 L Hgb 8.3 L Hct 23.0 L MCV MCH 33 H MCHC 36 H RDW 17.5 H Plt Count 69 L Lymph % (Auto) [place] % (Auto) 13.0 H Baso % (Auto) 1.9 H Lymph # 1.1 L [place] # 0.9 H Baso # Seg Neutrophils % Seg Neuts % (Manual) Lymphocytes % (Manual) Eosinophils % (Manual) Basophils % (Manual) Lymphocytes # (Manual) Eosinophils # (Manual) Basophils # (Manual) PT INR APTT Fibrinogen D-Dimer POC ABG pH POC ABG pCO2 POC ABG pO2 Sodium Potassium Chloride Carbon Dioxide BUN 21 H Creatinine 3.8 H D Glucose 114 H POC Glucose Lactic Acid Calcium Phosphorus Magnesium TIBC Ferritin Total Bilirubin 8.30 H Direct Bilirubin AST 46 H Ammonia Lactate Dehydrogenase NT-Pro-B Natriuret Pep Total Protein Albumin Lipase Vitamin B12 Urine WBC (Auto) Urine Creatinine Ur Creatinine 24 Hour Fluid Glucose Fluid Total Protein Digoxin Crossmatch See Detail 12/31/17 12/31/17 01/01/18 12:59 Unknown 05:27 RBC 2.69 L Hgb 9.1 L Hct 25.1 L MCV MCH 34 H MCHC 36 H RDW 17.5 H Plt Count 64 L Lymph % (Auto) 12.5 L [place] % (Auto) 14.4 H Baso % (Auto) Lymph # 0.9 L [place] # 1.1 H Baso # Seg Neutrophils % 70.4 H Seg Neuts % (Manual) Lymphocytes % (Manual) Eosinophils % (Manual) Basophils % (Manual) Lymphocytes # (Manual) Eosinophils # (Manual) Basophils # (Manual) PT 19.7 H INR 1.57 H APTT Fibrinogen D-Dimer POC ABG pH POC ABG pCO2 POC ABG pO2 Sodium Potassium Chloride Carbon Dioxide BUN Creatinine Glucose POC Glucose Lactic Acid Calcium Phosphorus Magnesium TIBC Ferritin Total Bilirubin Direct Bilirubin AST Ammonia Lactate Dehydrogenase NT-Pro-B Natriuret Pep Total Protein Albumin Lipase Vitamin B12 Urine WBC (Auto) Urine Creatinine Ur Creatinine 24 Hour Fluid Glucose 124 H Fluid Total Protein < 3.0 L Digoxin Crossmatch 01/01/18 01/01/18 01/03/18 05:27 05:27 06:24 RBC 2.62 L Hgb 8.7 L Hct 25.6 L MCV 98 H MCH 33 H MCHC RDW 19.4 H Plt Count 55 L Lymph % (Auto) [place] % (Auto) 10.9 H Baso % (Auto) 2.7 H Lymph # 1.1 L [place] # 0.9 H Baso # 0.2 H Seg Neutrophils % Seg Neuts % (Manual) Lymphocytes % (Manual) Eosinophils % (Manual) Basophils % (Manual) Lymphocytes # (Manual) Eosinophils # (Manual) Basophils # (Manual) PT 22.1 H INR 1.81 H APTT Fibrinogen D-Dimer POC ABG pH POC ABG pCO2 POC ABG pO2 Sodium Potassium Chloride Carbon Dioxide BUN Creatinine 2.8 H Glucose POC Glucose Lactic Acid Calcium Phosphorus Magnesium TIBC Ferritin Total Bilirubin 9.20 H Direct Bilirubin AST 49 H Ammonia Lactate Dehydrogenase NT-Pro-B Natriuret Pep Total Protein Albumin 3.8 L Lipase Vitamin B12 Urine WBC (Auto) Urine Creatinine Ur Creatinine 24 Hour Fluid Glucose Fluid Total Protein Digoxin Crossmatch 01/03/18 01/03/18 01/05/18 06:24 06:24 04:47 RBC 2.75 L Hgb 9.2 L Hct 27.3 L MCV 99 H MCH 34 H MCHC RDW 23.5 H Plt Count 55 L Lymph % (Auto) [place] % (Auto) 14.3 H Baso % (Auto) 2.3 H Lymph # [place] # 1.0 H Baso # 0.2 H Seg Neutrophils % Seg Neuts % (Manual) Lymphocytes % (Manual) Eosinophils % (Manual) Basophils % (Manual) Lymphocytes # (Manual) Eosinophils # (Manual) Basophils # (Manual) PT 24.1 H INR 2.01 H APTT Fibrinogen D-Dimer POC ABG pH POC ABG pCO2 POC ABG pO2 Sodium Potassium Chloride Carbon Dioxide BUN Creatinine Glucose POC Glucose Lactic Acid Calcium Phosphorus Magnesium TIBC Ferritin Total Bilirubin 9.00 H Direct Bilirubin 2.7 H AST 50 H Ammonia Lactate Dehydrogenase NT-Pro-B Natriuret Pep Total Protein Albumin 3.6 L Lipase Vitamin B12 Urine WBC (Auto) Urine Creatinine Ur Creatinine 24 Hour Fluid Glucose Fluid Total Protein Digoxin Crossmatch 01/05/18 01/05/18 01/05/18 04:47 04:47 14:57 RBC Hgb Hct MCV MCH MCHC RDW Plt Count Lymph % (Auto) [place] % (Auto) Baso % (Auto) Lymph # [place] # Baso # Seg Neutrophils % Seg Neuts % (Manual) Lymphocytes % (Manual) Eosinophils % (Manual) Basophils % (Manual) Lymphocytes # (Manual) Eosinophils # (Manual) Basophils # (Manual) PT 24.3 H INR 2.04 H APTT Fibrinogen D-Dimer POC ABG pH POC ABG pCO2 POC ABG pO2 Sodium Potassium Chloride Carbon Dioxide BUN Creatinine 2.6 H Glucose 117 H POC Glucose Lactic Acid Calcium Phosphorus Magnesium TIBC Ferritin Total Bilirubin 9.50 H Direct Bilirubin AST 50 H Ammonia 75.0 H Lactate Dehydrogenase NT-Pro-B Natriuret Pep Total Protein Albumin 3.7 L Lipase Vitamin B12 Urine WBC (Auto) Urine Creatinine Ur Creatinine 24 Hour Fluid Glucose Fluid Total Protein Digoxin Crossmatch 01/06/18 01/06/18 01/07/18 02:35 02:35 09:29 RBC 2.75 L Hgb 9.2 L Hct 27.7 L MCV 101 H MCH 34 H MCHC RDW 25.1 H Plt Count 46 L Lymph % (Auto) [place] % (Auto) Baso % (Auto) Lymph # [place] # Baso # Seg Neutrophils % Seg Neuts % (Manual) Lymphocytes % (Manual) 13.0 L Eosinophils % (Manual) 7.0 H Basophils % (Manual) 2.0 H Lymphocytes # (Manual) 1.0 L Eosinophils # (Manual) 0.6 H Basophils # (Manual) 0.2 H PT 21.3 H INR 1.73 H APTT 41.2 H Fibrinogen D-Dimer POC ABG pH POC ABG pCO2 POC ABG pO2 Sodium Potassium Chloride 96.3 L Carbon Dioxide 21 L BUN 23 H Creatinine 2.9 H Glucose POC Glucose Lactic Acid Calcium Phosphorus Magnesium TIBC Ferritin Total Bilirubin 9.80 H Direct Bilirubin AST 65 H Ammonia Lactate Dehydrogenase NT-Pro-B Natriuret Pep Total Protein Albumin 3.5 L Lipase Vitamin B12 Urine WBC (Auto) Urine Creatinine Ur Creatinine 24 Hour Fluid Glucose Fluid Total Protein Digoxin Crossmatch 01/08/18 06:15 RBC Hgb Hct MCV MCH MCHC RDW Plt Count Lymph % (Auto) [place] % (Auto) Baso % (Auto) Lymph # [place] # Baso # Seg Neutrophils % Seg Neuts % (Manual) Lymphocytes % (Manual) Eosinophils % (Manual) Basophils % (Manual) Lymphocytes # (Manual) Eosinophils # (Manual) Basophils # (Manual) PT 22.6 H INR 1.86 H APTT 49.5 H Fibrinogen D-Dimer POC ABG pH POC ABG pCO2 POC ABG pO2 Sodium Potassium Chloride Carbon Dioxide BUN Creatinine Glucose POC Glucose Lactic Acid Calcium Phosphorus Magnesium TIBC Ferritin Total Bilirubin Direct Bilirubin AST Ammonia Lactate Dehydrogenase NT-Pro-B Natriuret Pep Total Protein Albumin Lipase Vitamin B12 Urine WBC (Auto) Urine Creatinine Ur Creatinine 24 Hour Fluid Glucose Fluid Total Protein Digoxin Crossmatch Allied health notes reviewed: nursing
--- NOTE | 2018-01-08 18:56 | Progress Note ---
Assessment and Plan - Patient Problems (1) Acute hepatic encephalopathy Current Visit: Yes Status: Acute Plan to address problem: see orders. continue with lactulose, recheck ammonia level. continue same. supportive. (2) Anemia Current Visit: Yes Status: Acute Plan to address problem: see orders. Replacement transfusion, if hgb less than 7.0 same as above. see notes above. same as above, stable. see notes above. stable so far. (3) Renal failure Current Visit: Yes Status: Acute Plan to address problem: follow renal service. same as above. (4) Liver failure Current Visit: Yes Status: Acute Plan to address problem: Hepato-renal syndrome, continue with HD. (5) Coagulation disorder Current Visit: Yes Status: Acute Plan to address problem: see notes. Subjective Date of service: 01/08/18 Principal diagnosis: CARMEN on CKD; Acute Encephalopathy; Sepsis Syndrome; Anemia Interval history: Patient seen, restingm labs/notes reviewed. agree with management so far.labs showing consumptive coagulopathy. Patient seen, resting in bed, records/labs reviewed.PLT dropped some.Still no active bleeding. Patient seen/examined, records/labs / notes reviewed, hgb low at 6.9, will rec replacement transfusion,with HD tomorrow if planned to proceed with HD. Patient seen, resting in bed, labs/records reviewed, Hgb still low, transfusion written for today. Patient seen, resting in bed, labs reviewed, plt 57,000, rectal bleeding resolved, will continue to monitor patient/labs with you, and intervene with replacement transfusion, when needed. Patient seen, resting in bed, NAD, records reviewed. Patient seen, resting in bed, labs/records reviewed, no new issues, the latest plt fair, no any sign of bleeding. Patient seen, resting in bed, records reviewed, PLT 57,000, no bleeding. Patient seen, resting in bed, labs reviewed, hgb dropped drastically, due to rectal bleed.He is s/p blood transfusion. he is expected to continue to drop his hgb, as long as he continues to bleed. Will re check labs in am. Thrombocytopenia at above 20,000. will continue to monitor. Patient seen, resting in bed, labs reviewed, ,he will need some PLT+ FFP, especially if there is any plans for any procedure, otherwise, can watch if any active bleeding, or plt 20,000 or less. patient seen/examined, resting in bed, labs reviewed, s/p GI scope, and blood transfusion, Plt replacement ,to follow. patient seen, resting in bed, labs, reviewed, plt 39,000, replacement not given yesterday? Patient seen/examined, at the HD center, resting in bed, was able ro discuss his case with him, regarding prognosis, and options, as i had d/w his yesterday. he wants to talk with his first.. his PLT came up following transfusion, hgb at Fair level at this time,Will see how much this will hold in the next few days.He is really not a good candidate for any transplant ,given, his condition, and co morbid issues at this time. Prognosis is quite poor for Hepato-renal syndrome, let alone complicated by thrombocytopenia/anemia, and double vital organ failure.He has no real reserve as far as these organs are concerned.You may want to have a vince family talk with him, his , and doctors Patient resting in bed, labs reviewed, and fairly stable, slight drop in hgb, and plt, but overall stable in the last 24hrs.notes reviewed. Patient seen/resting in bed, labs reviewed, d/w primary team. Hgb dropped, but plt holding steady since replacement. Patient resting in bed, labs reviewed, rec stays the same.Replacement transfusion prn. i have spoken to patient/, and sister at [facility]. Patient seen/examined, resting in bed, c/o not eating much due to lack of appetite.Rec appetite enhancer. Patient seen, resting in bed, labs reviewed, and remain fair. Patient seen, resting in bed, labs, reviewed, INR 2+, PLT55,000.Will give some FFP today, and perhaps on sunday, to see if he can get his procedure done. Patient seen, resting in bed, labs reviewed, INR did not improve, following FFP yesterday , if at it was given. patient seen, resting in bed, labs reviewed, PLT, 46,000, no bleeding. If any procedure is intended, can give FFP+_ PLT.,or if any bleeding. Patient seen rthis am, resting in bed, labs reviewed, PT/INR ordered, post FFP transfusion, for possible procedure today.I do not think his INR can get to the desired level of i.4 due to damaged liver. I rec hang FFP during procedure, and PLT 1-2 units can even be given prior . Patient seen/examined, resting in bed, NAD, latest labs reviewed. Objective - Constitutional Vitals: Vital Signs - 12hr 01/08/18 01/08/18 01/08/18 08:37 10:00 12:17 Temperature 97.9 F 97.9 F Pulse Rate 65 Respiratory 16 16 Rate Blood Pressure 116/68 97/64 O2 Sat by Pulse 95 96 Oximetry 01/08/18 17:01 Temperature 98.6 F Pulse Rate 67 Respiratory 16 Rate Blood Pressure 102/63 O2 Sat by Pulse 83 L Oximetry General appearance: Present: no acute distress - EENT Eyes: PERRL, EOM intact ENT: hearing intact, clear oral mucosa Ears: bilateral: normal - Neck Neck: supple, normal ROM - Respiratory Respiratory effort: normal Respiratory: bilateral: CTA - Breasts Breasts: deferred - Cardiovascular Rhythm: regular Heart Sounds: Present: S1 & S2. Absent: gallop, rub Extremities: pulses intact, No edema, normal color, Full ROM - Gastrointestinal General gastrointestinal: Present: soft, non-tender, non-distended, normal bowel sounds Rectal Exam: deferred - Genitourinary Male genitourinary: deferred - Integumentary Integumentary: clear, warm, dry - Musculoskeletal Musculoskeletal: 1, strength equal bilaterally - Neurologic Neurologic: moves all extremities - Psychiatric Psychiatric: memory intact, appropriate mood/affect, intact judgment & insight - Labs CBC & Chem 7: 01/06/18 02:35 01/06/18 02:35 Labs: Abnormal lab results 01/08/18 Range/Units 06:15 PT 22.6 H (12.2-14.9) Sec. INR 1.86 H (0.87-1.13) APTT 49.5 H (24.2-36.6) Sec.
--- NOTE | 2018-01-08 18:59 | Progress Note ---
Assessment and Plan Impression: * Oliguric CARMEN secondary to ATN vs HRS --s/p permcath placement 12/17/17 and initiation of dialysis * Cirrhosis * Abdominal ascites * Anemia secondary to ABL * s/p Rectal bleeding * Hx of esophageal varices * Hyperbilirubinemia Plan: * Continue HD MWF - UF as tolerated; no evidence of renal recovery * Consultants' recommendations reviewed * Medical management of electrolytes * Avoid potential nephrotoxic agents * Dose medications for renal function * Outpatient HD MWF at [facility] arranged Subjective Date of service: 01/08/18 Principal diagnosis: CARMEN on CKD; Acute Encephalopathy; Sepsis Syndrome; Anemia Interval history: Patient has no complaint today Objective - Vital Signs Vital signs: Vital Signs - 12hr 01/08/18 01/08/18 01/08/18 08:37 10:00 12:17 Temperature 97.9 F 97.9 F Pulse Rate 65 Respiratory 16 16 Rate Blood Pressure 116/68 97/64 O2 Sat by Pulse 95 96 Oximetry 01/08/18 17:01 Temperature 98.6 F Pulse Rate 67 Respiratory 16 Rate Blood Pressure 102/63 O2 Sat by Pulse 83 L Oximetry - General Appearance General appearance: well-developed, well-nourished EENT: ATNC Respiratory: Present: Clear to Ascultation Cardiology: regular, S1S2 Gastrointestinal: normal, no tenderness, no distended Integumentary: warm and dry Neurologic: other (legally blind) Psychiatric: cooperative - Lab 01/06/18 02:35 01/06/18 02:35 Most recent lab results Calcium 9.8 mg/dL (8.4-10.2) 01/06/18 02:35 Phosphorus 2.40 mg/dL (2.5-4.5) L 12/26/17 05:59 Magnesium 1.70 mg/dL (1.7-2.3) 01/03/18 06:24 Urine Creatinine 122.5 mg/dL (0.1-20.0) H 12/14/17 Unknown
[2018-01-09] MEDS: VITAMIN K (ADULT ONLY) SUB-Q SCH ×4 (03:02→23:58)
--- NOTE | 2018-01-09 08:39 | Progress Note ---
Assessment and Plan Assessment and plan: Patient is a 62-year-old man with a history of hypertension, seizure disorder and cirrhosis who presented to [facility] ED with abdominal pains and swelling. He was admitted due to hypotension. * CT chest wo contrast IMPRESSION: The heart size is normal.. There is no thoracic aortic aneurysm or dissection.. There is discoid atelectasis at the lung bases greater on the right. There are no acute infiltrates.. There are large bilateral pleural effusions. There is no pneumothorax.. * CT abd/pelvis wo contrast IMPRESSION: There is a stent in the portal vein. Liver is irregular in contour suggesting cirrhosis. There are tiny calcified granulomas. There is no discrete mass.. There are bilateral kidney stones. There is no hydronephrosis.. There is a large amount of stool in the colon. There is no obstruction or fecal impaction. There is no specific evidence of colitis or diverticulitis. The stomach and small bowel are unremarkable. The appendix is normal.. There is minimal ascites. There is no free air -Severe Cirrhosis/Ascites/hyperbilirubinemia s/p paracentesis, fluid analysis negative for SBP -Bilateral pleural effusion right greater than left: Field Logistics Coordinator recommends giving FFP and thoracentesis, Scheduled for thoracentesis -Acute on chronic blood loss anemia/ esophageal Varices s/p PRBC transfusion, total 11 units during this admission, EGD negative for esophageal variceal bleeding: closely monitor -Coagulopathy; secondary to cirrhosis liver: Received vitamin K subcutaneous 1 dose, FFP's, Vitamin K, FFP's as needed -Severe thrombocytopenia; secondary to cirrhosis, Heme/onc is managing -NSVT, resolved; continue Lopressor -Hypovolemic shock. On midodrine, -No evidence for Sepsis; cultures negative, I could not find any evidence of an infectious source to document Sepsis, mostly SIRS, poa -Rectal bleeding; resolved GI following -Toxic metabolic/hepatic encephalopathy. Recheck ammonia level -Acute on chronic kidney disease V, initiated Hemodialysis 12/17/17 after perm-a- cath placed: ATN/sepsis/hypotension. Now on hemodialysis, Outpatient dialysis per case management -Hepatorenal syndrome; on HD, nephrology following Patient has appointment for liver transplant evaluation in [place], However patient was unstable for discharge. Dr. Hanson talked to Dr. Guevara transplant center updated patient's clinical status during the hospital coarse Day 26 was my first day caring for patient. Dr. Hanson called for handoff Thoracentesis is pending once INR decreased History Interval history: Patient was seen and examined. Follow-up on current diagnosis of abdominal swelling. Overnight uneventful. Patient denies any chest pain, shortness breath , nausea/vomiting or severe headaches. Imaging, nursing note, chart, labs and old chart reviewed. Discussed with patient but he is confused this morning. Only orientated to self Hospitalist Physical - Physical exam Narrative exam: GEN: thin frail, NAD, Awake, Alert, Orientated x 1 to self only HEENT: NCAT, EOMI, PERRL, OP Clear NECK: supple, no adenopathy, no thyromegaly, no JVD CVS/HEART: RRR, normal S1S2, pulses present bilaterally CHEST/LUNGS: diminished bs bilaterally, Symmetrical chest expansion, good air entry bilaterally GI/Abdomen: soft, distended, good bowel sounds, no guarding or rebound /Bladder: no suprapubic tenderness, no CVA or paraspinal tenderness, swollen penis due to ansarca EXT/Skin: ble edema, sclera icterus MSK: FROM x 4 Neuro: CN 2-12 grossly intact, no new focal deficits Psych: calm - Constitutional Vitals: Temp Pulse Resp BP Pulse Ox 98.1 F 63 18 93/60 97 01/09/18 08:31 01/09/18 08:31 01/09/18 08:31 01/09/18 08:31 01/09/18 08:31 General appearance: Present: no acute distress Results - Labs CBC & Chem 7: 01/06/18 02:35 01/06/18 02:35 Labs: Laboratory Last Values WBC 7.9 K/mm3 (4.5-11.0) 01/06/18 02:35 RBC 2.75 M/mm3 (3.65-5.03) L 01/06/18 02:35 Hgb 9.2 gm/dl (11.8-15.2) L 01/06/18 02:35 Hct 27.7 % (35.5-45.6) L 01/06/18 02:35 MCV 101 fl (84-94) H 01/06/18 02:35 MCH 34 pg (28-32) H 01/06/18 02:35 MCHC 33 % (32-34) 01/06/18 02:35 RDW 25.1 % (13.2-15.2) H 01/06/18 02:35 Plt Count 46 K/mm3 (140-440) L 01/06/18 02:35 Lymph % (Auto) 16.1 % (13.4-35.0) 01/05/18 04:47 Lipscomb % (Auto) Learning Support Teacher 01/06/18 02:35 Eos % (Auto) 1.1 % (0.0-4.3) 01/05/18 04:47 Baso % (Auto) 2.3 % (0.0-1.8) H 01/05/18 04:47 Lymph # 1.2 K/mm3 (1.2-5.4) 01/05/18 04:47 Lipscomb # 1.0 K/mm3 (0.0-0.8) H 01/05/18 04:47 Eos # 0.1 K/mm3 (0.0-0.4) 01/05/18 04:47 Baso # 0.2 K/mm3 (0.0-0.1) H 01/05/18 04:47 Add Manual Diff Complete 01/06/18 02:35 Total Counted 100 01/06/18 02:35 Seg Neutrophils % 66.2 % (40.0-70.0) 01/05/18 04:47 Seg Neuts % (Manual) 68.0 % (40.0-70.0) 01/06/18 02:35 Band Neutrophils % 5.0 % 01/06/18 02:35 Lymphocytes % (Manual) 13.0 % (13.4-35.0) L 01/06/18 02:35 Reactive Lymphs % (Man) 0 % 01/06/18 02:35 Monocytes % (Manual) 5.0 % (0.0-7.3) 01/06/18 02:35 Eosinophils % (Manual) 7.0 % (0.0-4.3) H 01/06/18 02:35 Basophils % (Manual) 2.0 % (0.0-1.8) H 01/06/18 02:35 Metamyelocytes % 0 % 01/06/18 02:35 Myelocytes % 0 % 01/06/18 02:35 Promyelocytes % 0 % 01/06/18 02:35 Blast Cells % 0 % 01/06/18 02:35 Nucleated RBC % Not Reportable 01/06/18 02:35 Seg Neutrophils # 4.9 K/mm3 (1.8-7.7) 01/05/18 04:47 Seg Neutrophils # Man 5.4 K/mm3 (1.8-7.7) 01/06/18 02:35 Band Neutrophils # 0.4 K/mm3 01/06/18 02:35 Lymphocytes # (Manual) 1.0 K/mm3 (1.2-5.4) L 01/06/18 02:35 Abs React Lymphs (Man) 0.0 K/mm3 01/06/18 02:35 Monocytes # (Manual) 0.4 K/mm3 (0.0-0.8) 01/06/18 02:35 Eosinophils # (Manual) 0.6 K/mm3 (0.0-0.4) H 01/06/18 02:35 Basophils # (Manual) 0.2 K/mm3 (0.0-0.1) H 01/06/18 02:35 Metamyelocytes # 0.0 K/mm3 01/06/18 02:35 Myelocytes # 0.0 K/mm3 01/06/18 02:35 Promyelocytes # 0.0 K/mm3 01/06/18 02:35 Blast Cells # 0.0 K/mm3 01/06/18 02:35 WBC Morphology Not Reportable 01/06/18 02:35 Hypersegmented Neuts Not Reportable 01/06/18 02:35 Hyposegmented Neuts Not Reportable 01/06/18 02:35 Hypogranular Neuts Not Reportable 01/06/18 02:35 Smudge Cells Not Reportable 01/06/18 02:35 Toxic Granulation Not Reportable 01/06/18 02:35 Toxic Vacuolation Not Reportable 01/06/18 02:35 Dohle Bodies Not Reportable 01/06/18 02:35 Pelger-Huet Anomaly Not Reportable 01/06/18 02:35 Eriberto Rods Not Reportable 01/06/18 02:35 Platelet Estimate Consistent w auto 01/06/18 02:35 Clumped Platelets Not Reportable 01/06/18 02:35 Plt Clumps, EDTA Not Reportable 01/06/18 02:35 Large Platelets Not Reportable 01/06/18 02:35 Giant Platelets Not Reportable 01/06/18 02:35 Platelet Satelliting Not Reportable 01/06/18 02:35 Plt Morphology Comment Not Reportable 01/06/18 02:35 RBC Morphology Not Reportable 01/06/18 02:35 Dimorphic RBCs Not Reportable 01/06/18 02:35 Polychromasia Not Reportable 01/06/18 02:35 Hypochromasia Rare 01/06/18 02:35 Poikilocytosis Not Reportable 01/06/18 02:35 Anisocytosis 1+ 01/06/18 02:35 Microcytosis Not Reportable 01/06/18 02:35 Macrocytosis Not Reportable 01/06/18 02:35 Spherocytes Few 01/06/18 02:35 Pappenheimer Bodies Not Reportable 01/06/18 02:35 Sickle Cells Not Reportable 01/06/18 02:35 Target Cells Not Reportable 01/06/18 02:35 Tear Drop Cells Not Reportable 01/06/18 02:35 Ovalocytes 1+ 01/06/18 02:35 Helmet Cells Not Reportable 01/06/18 02:35 [place]-Trainer Bodies Not Reportable 01/06/18 02:35 [place] Rings Not Reportable 01/06/18 02:35 [place] Cells Not Reportable 01/06/18 02:35 Bite Cells Not Reportable 01/06/18 02:35 Crenated Cell Not Reportable 01/06/18 02:35 Elliptocytes Not Reportable 01/06/18 02:35 Acanthocytes (Spur) 1+ 01/06/18 02:35 Rouleaux Not Reportable 01/06/18 02:35 Hemoglobin C Crystals Not Reportable 01/06/18 02:35 Schistocytes Not Reportable 01/06/18 02:35 Malaria parasites Not Reportable 01/06/18 02:35 ESR 18 mm/Hr (0-20) 12/12/17 19:50 Lyndon Bodies Not Reportable 01/06/18 02:35 Hem Pathologist Commnt No 01/06/18 02:35 PT 22.6 Sec. (12.2-14.9) H 01/08/18 06:15 INR 1.86 (0.87-1.13) H 01/08/18 06:15 APTT 49.5 Sec. (24.2-36.6) H 01/08/18 06:15 Fibrinogen 128 mg/dl (211-480) L 12/12/17 19:50 D-Dimer 1215.06 ng/mlDDU (0-234) H 12/12/17 19:50 Factor VIII:C Activity 178 % (50-180) 12/12/17 20:30 POC ABG pH 7.452 (7.35-7.45) H 12/12/17 09:13 POC ABG pCO2 22.2 (35-45) L 12/12/17 09:13 POC ABG pO2 75 (80-105) L 12/12/17 09:13 POC ABG HCO3 15.5 12/12/17 09:13 POC ABG Total CO2 16 12/12/17 09:13 POC ABG O2 Sat 96 12/12/17 09:13 POC ABG Base Excess -8 12/12/17 09:13 FiO2 21 % 12/12/17 09:13 Sodium 140 mmol/L (137-145) 01/06/18 02:35 Potassium 4.8 mmol/L (3.6-5.0) 01/06/18 02:35 Chloride 96.3 mmol/L (98-107) L 01/06/18 02:35 Carbon Dioxide 21 mmol/L (22-30) L 01/06/18 02:35 Anion Gap 28 mmol/L 01/06/18 02:35 BUN 23 mg/dL (9-20) H 01/06/18 02:35 Creatinine 2.9 mg/dL (0.8-1.5) H 01/06/18 02:35 Estimated GFR 27 ml/min 01/06/18 02:35 BUN/Creatinine Ratio 8 % 01/06/18 02:35 Glucose 96 mg/dL (75-100) 01/06/18 02:35 POC Glucose 113 (70-105) H 12/29/17 07:35 Lactic Acid 3.90 mmol/L (0.7-2.0) H* 12/14/17 17:26 Calcium 9.8 mg/dL (8.4-10.2) 01/06/18 02:35 Phosphorus 2.40 mg/dL (2.5-4.5) L 12/26/17 05:59 Magnesium 1.70 mg/dL (1.7-2.3) 01/03/18 06:24 Iron 78 ug/dL (49-181) 12/27/17 06:34 TIBC 77 mcg/dL (250-450) L 12/27/17 06:34 Ferritin > 2000.0 ng/mL (13.0-400.0) H 12/27/17 06:34 Total Bilirubin 9.80 mg/dL (0.1-1.2) H 01/06/18 02:35 Direct Bilirubin 2.7 mg/dL (0-0.2) H 01/03/18 06:24 Indirect Bilirubin 6.3 mg/dL 01/03/18 06:24 AST 65 units/L (5-40) H 01/06/18 02:35 ALT 23 units/L (7-56) 01/06/18 02:35 Alkaline Phosphatase 68 units/L (35-129) 01/06/18 02:35 Ammonia 22.0 umol/L (25-60) L 01/09/18 05:16 Lactate Dehydrogenase 302 units/L (91-180) H 12/27/17 06:34 Total Creatine Kinase 64 units/L (55-170) 12/10/17 23:14 C-Reactive Protein 0.30 mg/dL (0.00-1.30) 12/13/17 14:03 NT-Pro-B Natriuret Pep 9558 pg/mL (0-900) H 12/10/17 23:14 Total Protein 7.6 g/dL (6.3-8.2) 01/06/18 02:35 Albumin 3.5 g/dL (3.9-5) L 01/06/18 02:35 Albumin/Globulin Ratio 0.9 % 01/06/18 02:35 Lipase 7 units/L (13-60) L 12/10/17 23:14 Vitamin B12 1465 pg/mL (211-911) H 12/12/17 19:50 Folate 14.04 ng/mL (7.3-26.0) 12/12/17 19:50 TSH 2.560 mlU/mL (0.270-4.200) 12/16/17 12:37 Total Cortisol 9.5 mcg/dL () 01/02/18 10:45 Urine Color Yellow (Yellow) 12/10/17 23:05 Urine Turbidity Clear (Clear) 12/10/17 23:05 Urine pH 5.0 (5.0-7.0) 12/10/17 23:05 Ur Specific [place] 1.013 (1.003-1.030) 12/10/17 23:05 Urine Protein <15 mg/dl mg/dL (Negative) 12/10/17 23:05 Urine Glucose (UA) Neg mg/dL (Negative) 12/10/17 23:05 Urine Ketones Neg mg/dL (Negative) 12/10/17 23:05 Urine Blood Neg (Negative) 12/10/17 23:05 Urine Nitrite Neg (Negative) 12/10/17 23:05 Ur Reducing Substances Not Reportable 12/10/17 23:05 Urine Bilirubin Neg (Negative) 12/10/17 23:05 Urine Ictotest Not Reportable 12/10/17 23:05 Urine Urobilinogen < 2.0 mg/dL (<2.0) 12/10/17 23:05 Ur Leukocyte Esterase Sm (Negative) 12/10/17 23:05 Urine WBC (Auto) 10.0 /HPF (0.0-6.0) H 12/10/17 23:05 Urine RBC (Auto) 4.0 /HPF (0.0-6.0) 12/10/17 23:05 U Epithel Cells (Auto) < 1.0 /HPF (0-13.0) 12/10/17 23:05 Urine Mucus Few /HPF 12/10/17 23:05 Urine Total Volume 250 12/14/17 Unknown Urine Creatinine 122.5 mg/dL (0.1-20.0) H 12/14/17 Unknown Ur Creatinine 24 Hour 0.3 (0.8-2.8) L 12/14/17 Unknown Fluid Type Peritoneal 12/31/17 Unknown Fluid Color Red 12/31/17 Unknown Fluid Appearance Cloudy 12/31/17 Unknown Fluid WBC 55 /mm3 12/31/17 Unknown Fluid RBC 28693 /mm3 12/31/17 Unknown Fluid Seg Neutrophils 6.0 % 12/31/17 Unknown Fluid Lymphocytes 48.0 % 12/31/17 Unknown Fluid Reactive Lymphs Not Reportable 12/31/17 Unknown Fluid Monocytes 46.0 % 12/31/17 Unknown Fluid Eosinophils Not Reportable 12/31/17 Unknown Fluid Basophils Not Reportable 12/31/17 Unknown Fluid Glucose 124 mg/dL (40-70) H 12/31/17 Unknown Fluid Total Protein < 3.0 (15.0-45.0) L 12/31/17 Unknown Fluid Albumin 1.7 g/dL 12/31/17 Unknown Fluid LDH 186 12/31/17 Unknown Fluid Amylase < 10 12/31/17 Unknown Fluid Triglycerides 48 12/31/17 Unknown Digoxin 0.4 ng/mL (0.9-2.0) L 12/21/17 05:26 Hepatitis A IgM Ab Non-reactive (NonReactive) 12/12/17 19:50 Hep Bs Antigen Non-reactive (Negative) 12/12/17 19:50 Hep B Core IgM Ab Non-reactive (NonReactive) 12/12/17 19:50 Hepatitis C Antibody Non-reactive (NonReactive) 12/12/17 19:50 Miscellaneous Test Flexitest 1 12/12/17 06:42 Blood Type A NEGATIVE 01/06/18 11:00 Antibody Screen Negative 12/30/17 08:44 Direct Antiglob Test Negative 12/12/17 20:41 JOANNE, Poly Interpret Negative 12/12/17 20:41 Crossmatch See Detail 12/30/17 08:44
--- NOTE | 2018-01-09 09:07 | Progress Note ---
Assessment and Plan Impression: * Oliguric CARMEN secondary to ATN vs HRS --s/p permcath placement 12/17/17 and initiation of dialysis * Cirrhosis * Abdominal ascites * Anemia secondary to ABL * s/p Rectal bleeding * Hx of esophageal varices * Hyperbilirubinemia Plan: * Continue HD MWF - UF as tolerated; no evidence of renal recovery * Consultants' recommendations reviewed * Medical management of electrolytes * Avoid potential nephrotoxic agents * Dose medications for renal function * Outpatient HD MWF at [facility] arranged Subjective Date of service: 01/09/18 Principal diagnosis: ACRMEN on CKD; Acute Encephalopathy; Sepsis Syndrome; Anemia Interval history: Per RN, patient w/ bleeding from permcath (appears to be from insertion site) overnight - now resolved. Objective - Vital Signs Vital signs: Vital Signs - 12hr 01/08/18 01/08/18 01/09/18 22:55 22:56 00:11 Temperature 98.3 F Pulse Rate 63 65 Respiratory 18 Rate Blood Pressure 97/59 97/59 81/48 Blood Pressure [Left] O2 Sat by Pulse 81 L Oximetry 01/09/18 01/09/18 01/09/18 04:00 08:14 08:31 Temperature 98.2 F 98.1 F 98.1 F Pulse Rate 63 62 63 Respiratory 18 18 18 Rate Blood Pressure 93/60 Blood Pressure 93/48 93/60 [Left] O2 Sat by Pulse 96 96 97 Oximetry 01/09/18 08:54 Temperature Pulse Rate 64 Respiratory Rate Blood Pressure Blood Pressure [Left] O2 Sat by Pulse Oximetry - General Appearance General appearance: well-developed, well-nourished EENT: ATNC Respiratory: Present: Decreased Breath Sounds Cardiology: regular, S1S2 Gastrointestinal: normal, no tenderness, no distended Integumentary: warm and dry Neurologic: other (legally blind) Musculoskeletal: other (no edema) Psychiatric: cooperative - Lab 01/06/18 02:35 01/06/18 02:35 Most recent lab results Calcium 9.8 mg/dL (8.4-10.2) 01/06/18 02:35 Phosphorus 2.40 mg/dL (2.5-4.5) L 12/26/17 05:59 Magnesium 1.70 mg/dL (1.7-2.3) 01/03/18 06:24 Urine Creatinine 122.5 mg/dL (0.1-20.0) H 12/14/17 Unknown
[2018-01-09] MEDS: XIFAXAN PO SCH ×2 (09:22→22:38)
[2018-01-09] MEDS: PROAMATINE PO SCH ×3 (09:22→22:39)
[2018-01-09] MEDS: CEPHULAC PO SCH ×2 (09:23→21:33)
[2018-01-09] MEDS: PROTONIX PO SCH (09:23)
[2018-01-09] MEDS: LOPRESSOR PO SCH ×2 (09:23→22:34)
[2018-01-09] MEDS: THERAGRAN-M Tab PO SCH (09:23)
--- NOTE | 2018-01-09 09:24 | XRay Report ---
Portable chest: Pleural effusions/hypoxemia. Comparison is made to the prior exam of January 02. There are persistent bilateral effusions with no change on the left and mild improvement on the right. There is a small right pneumothorax extending from the apex to the mid lateral chest. There is an interpleural separation of approximately 1.3 cm. The possibility of bibasilar atelectasis or possible consolidation is difficult to exclude in the presence of the effusions but remain essentially unchanged from prior exam. There is no enlargement of the heart but there is suspicion of mild perivascular edema. The left jugular central venous catheter is also unchanged. Impression: Small interval reduction of right pleural effusion with right pneumothorax. Otherwise, stable exam.
[2018-01-09 10:51] LABS: INR 2.02 (0.87-1.13)
[2018-01-09] MEDS ORDERED: NACL 0.9 (PRIMING MACHINE ONLY DIALYSIS) MC ONE (15:06)
--- NOTE | 2018-01-09 15:34 | Progress Note ---
Assessment and Plan Bilateral pleural effusions Abnormal CXR, possible PTX(clinically does not have a PTX) Sepsis Acute encephalopathy Severe anemia Lactic acidosis, multifactorial Cirrhosis with esophageal varices Rectal bleeding Coagulopathy Metabolic acidosis, multifactorial Respiratory alkalosis Nonoliguric CARMEN secondary to prerenal azotemia due to hypoperfusion ATN vs HRS Moderate protein calorie malnutrition -CT chest to evaluate for possible PTX -PT/INR remains elevated. Needs thoracentesis -Aspiration precautions -continue chronic home medications, including rifaximin and midodrine -Avoid nephrotoxics and adjust all medications for GFRs -HD per Renal service -Continue therapeutic PPI -Monitor off antibiotics -Continue with lactulose to titrate to 2-3 bowel movements a day -SCDs for VTE prophylaxis in view of GIB and coagulopathy -Supportive transfusions - Continue with nutritional support, get RD for calorie count - Continue PT/OT FULL CODE STATUS PROGNOSIS GUARDED Subjective Date of service: 01/09/18 Principal diagnosis: CARMEN on CKD; Acute Encephalopathy; Sepsis Syndrome; Anemia Interval history: CARMEN on CKD; Acute Encephalopathy; Sepsis Syndrome; Anemia Seen and examined. vitals, labs, medications, chart and imaging reviewed. 24 hour events reviewed. No fevers or chills, no nausea or vomiting No shortness of breath. CXR documents probable apical pneumothorax, clinically stable. Has not had any instrumentation or any reason to develop a pneumothorax. Will get CTchest to better evaluate pulmonary parenchyma. Objective Vital Signs - 12hr 01/09/18 01/09/18 01/09/18 04:00 08:14 08:31 Temperature 98.2 F 98.1 F 98.1 F Pulse Rate 63 62 63 Respiratory 18 18 18 Rate Blood Pressure 93/60 Blood Pressure 93/48 93/60 [Left] O2 Sat by Pulse 96 96 97 Oximetry O2 Sat by Pulse Oximetry [ Anterior Bilateral Throughout] 01/09/18 01/09/18 08:54 12:00 Temperature 98.1 F Pulse Rate 64 64 Respiratory 16 Rate Blood Pressure 88/58 Blood Pressure [Left] O2 Sat by Pulse Oximetry O2 Sat by Pulse 97 Oximetry [ Anterior Bilateral Throughout] Constitutional: alert, other (chronically ill looking elderly AAM, normocephalic and atraumatic) Eyes: non-icteric ENT: oropharynx moist, other (mallampati 2) Neck: supple, no lymphadenopathy, no JVD, other (no thyromegaly) Effort: normal Ascultation: Bilateral: diminished breath sounds (bases), rhonchi Percussion: Bilateral: not dull, dull (bases) Cardiovascular: regular rate and rhythm, other (S1,S2, no murmurms, gallops or rubs) Gastrointestinal: normoactive bowel sounds, soft, non-tender, other (distended) Integumentary: rash Extremities: no cyanosis, no edema, pulses normal, no ischemia or petechiae, cool Neurologic: non-focal exam, pupils equal and round, motor strength normal and ( weak), other (alert, awake) Psychiatric: other (normal affect, confusion) CBC and BMP: 01/10/18 05:01 01/10/18 05:01 ABG, PT/INR, D-dimer: ABG POC ABG pH 7.452 (7.35-7.45) H 12/12/17 09:13 POC ABG pCO2 22.2 (35-45) L 12/12/17 09:13 POC ABG pO2 75 (80-105) L 12/12/17 09:13 POC ABG HCO3 15.5 12/12/17 09:13 POC ABG Total CO2 16 12/12/17 09:13 POC ABG O2 Sat 96 12/12/17 09:13 PT/INR, D-dimer PT 24.2 Sec. (12.2-14.9) H 01/09/18 10:18 INR 2.02 (0.87-1.13) H 01/09/18 10:18 D-Dimer 1215.06 ng/mlDDU (0-234) H 12/12/17 19:50 Abnormal lab findings: Abnormal Labs 12/10/17 12/10/17 12/10/17 13:14 13:14 23:05 RBC 2.31 L Hgb 7.3 L Hct 21.5 L MCV MCH MCHC RDW 17.7 H Plt Count 61 L Lymph % (Auto) [place] % (Auto) Baso % (Auto) Lymph # [place] # Baso # Seg Neutrophils % Seg Neuts % (Manual) 81.0 H Lymphocytes % (Manual) 11.0 L Eosinophils % (Manual) Basophils % (Manual) Lymphocytes # (Manual) 0.6 L Eosinophils # (Manual) Basophils # (Manual) PT INR APTT Fibrinogen D-Dimer POC ABG pH POC ABG pCO2 POC ABG pO2 Sodium 136 L Potassium 5.2 H Chloride Carbon Dioxide 15 L BUN 47 H Creatinine 5.2 H Glucose 127 H POC Glucose Lactic Acid Calcium Phosphorus Magnesium TIBC Ferritin Total Bilirubin 3.50 H Direct Bilirubin AST 71 H Ammonia Lactate Dehydrogenase NT-Pro-B Natriuret Pep Total Protein Albumin 2.6 L Lipase Vitamin B12 Urine WBC (Auto) 10.0 H Urine Creatinine Ur Creatinine 24 Hour Fluid Glucose Fluid Total Protein Digoxin Crossmatch 12/10/17 12/10/17 12/10/17 23:14 23:14 23:14 RBC Hgb Hct MCV MCH MCHC RDW Plt Count Lymph % (Auto) [place] % (Auto) Baso % (Auto) Lymph # [place] # Baso # Seg Neutrophils % Seg Neuts % (Manual) Lymphocytes % (Manual) Eosinophils % (Manual) Basophils % (Manual) Lymphocytes # (Manual) Eosinophils # (Manual) Basophils # (Manual) PT INR APTT Fibrinogen D-Dimer POC ABG pH POC ABG pCO2 POC ABG pO2 Sodium Potassium Chloride Carbon Dioxide BUN Creatinine Glucose POC Glucose Lactic Acid 2.40 H* Calcium Phosphorus Magnesium TIBC Ferritin Total Bilirubin Direct Bilirubin AST Ammonia 134.0 H Lactate Dehydrogenase NT-Pro-B Natriuret Pep 9558 H Total Protein Albumin Lipase Vitamin B12 Urine WBC (Auto) Urine Creatinine Ur Creatinine 24 Hour Fluid Glucose Fluid Total Protein Digoxin Crossmatch 12/10/17 12/11/17 12/11/17 23:14 00:29 03:33 RBC Hgb Hct MCV MCH MCHC RDW Plt Count Lymph % (Auto) [place] % (Auto) Baso % (Auto) Lymph # [place] # Baso # Seg Neutrophils % Seg Neuts % (Manual) Lymphocytes % (Manual) Eosinophils % (Manual) Basophils % (Manual) Lymphocytes # (Manual) Eosinophils # (Manual) Basophils # (Manual) PT INR APTT Fibrinogen D-Dimer POC ABG pH POC ABG pCO2 POC ABG pO2 Sodium Potassium Chloride Carbon Dioxide BUN Creatinine Glucose POC Glucose Lactic Acid 2.80 H* 3.00 H* Calcium Phosphorus Magnesium TIBC Ferritin Total Bilirubin Direct Bilirubin AST Ammonia Lactate Dehydrogenase NT-Pro-B Natriuret Pep Total Protein Albumin Lipase 7 L Vitamin B12 Urine WBC (Auto) Urine Creatinine Ur Creatinine 24 Hour Fluid Glucose Fluid Total Protein Digoxin Crossmatch 12/11/17 12/11/17 12/11/17 04:08 04:34 04:34 RBC Hgb Hct MCV MCH MCHC RDW Plt Count Lymph % (Auto) [place] % (Auto) Baso % (Auto) Lymph # [place] # Baso # Seg Neutrophils % Seg Neuts % (Manual) Lymphocytes % (Manual) Eosinophils % (Manual) Basophils % (Manual) Lymphocytes # (Manual) Eosinophils # (Manual) Basophils # (Manual) PT 19.1 H INR 1.51 H APTT 45.7 H Fibrinogen D-Dimer POC ABG pH POC ABG pCO2 POC ABG pO2 Sodium Potassium Chloride Carbon Dioxide BUN Creatinine Glucose POC Glucose 113 H Lactic Acid 3.10 H* Calcium Phosphorus Magnesium TIBC Ferritin Total Bilirubin Direct Bilirubin AST Ammonia Lactate Dehydrogenase NT-Pro-B Natriuret Pep Total Protein Albumin Lipase Vitamin B12 Urine WBC (Auto) Urine Creatinine Ur Creatinine 24 Hour Fluid Glucose Fluid Total Protein Digoxin Crossmatch 12/11/17 12/11/17 12/11/17 06:46 07:26 09:42 RBC Hgb Hct MCV MCH MCHC RDW Plt Count Lymph % (Auto) [place] % (Auto) Baso % (Auto) Lymph # [place] # Baso # Seg Neutrophils % Seg Neuts % (Manual) Lymphocytes % (Manual) Eosinophils % (Manual) Basophils % (Manual) Lymphocytes # (Manual) Eosinophils # (Manual) Basophils # (Manual) PT INR APTT Fibrinogen D-Dimer POC ABG pH POC ABG pCO2 POC ABG pO2 Sodium Potassium Chloride Carbon Dioxide BUN Creatinine Glucose POC Glucose Lactic Acid 2.70 H* 2.80 H* 2.90 H* Calcium Phosphorus Magnesium TIBC Ferritin Total Bilirubin Direct Bilirubin AST Ammonia Lactate Dehydrogenase NT-Pro-B Natriuret Pep Total Protein Albumin Lipase Vitamin B12 Urine WBC (Auto) Urine Creatinine Ur Creatinine 24 Hour Fluid Glucose Fluid Total Protein Digoxin Crossmatch 12/11/17 12/11/17 12/11/17 13:12 14:06 23:14 RBC Hgb Hct MCV MCH MCHC RDW Plt Count Lymph % (Auto) [place] % (Auto) Baso % (Auto) Lymph # [place] # Baso # Seg Neutrophils % Seg Neuts % (Manual) Lymphocytes % (Manual) Eosinophils % (Manual) Basophils % (Manual) Lymphocytes # (Manual) Eosinophils # (Manual) Basophils # (Manual) PT INR APTT Fibrinogen D-Dimer POC ABG pH POC ABG pCO2 POC ABG pO2 Sodium Potassium Chloride Carbon Dioxide BUN Creatinine Glucose POC Glucose Lactic Acid 3.10 H* 3.10 H* 3.70 H* Calcium Phosphorus Magnesium TIBC Ferritin Total Bilirubin Direct Bilirubin AST Ammonia Lactate Dehydrogenase NT-Pro-B Natriuret Pep Total Protein Albumin Lipase Vitamin B12 Urine WBC (Auto) Urine Creatinine Ur Creatinine 24 Hour Fluid Glucose Fluid Total Protein Digoxin Crossmatch 12/11/17 12/12/17 12/12/17 23:23 03:41 03:41 RBC 2.17 L Hgb 7.0 L Hct 19.9 L* MCV MCH 33 H MCHC 35 H RDW 17.7 H Plt Count 62 L Lymph % (Auto) [place] % (Auto) Baso % (Auto) Lymph # [place] # Baso # Seg Neutrophils % Seg Neuts % (Manual) 91.0 H Lymphocytes % (Manual) 3.0 L Eosinophils % (Manual) Basophils % (Manual) Lymphocytes # (Manual) 0.2 L Eosinophils # (Manual) Basophils # (Manual) PT INR APTT Fibrinogen D-Dimer POC ABG pH POC ABG pCO2 POC ABG pO2 Sodium Potassium 5.4 H Chloride Carbon Dioxide 12 L BUN 47 H Creatinine 4.5 H Glucose 103 H POC Glucose Lactic Acid Calcium 8.0 L Phosphorus Magnesium TIBC Ferritin Total Bilirubin 3.60 H Direct Bilirubin AST 58 H Ammonia Lactate Dehydrogenase NT-Pro-B Natriuret Pep Total Protein 5.9 L Albumin 2.5 L Lipase Vitamin B12 Urine WBC (Auto) Urine Creatinine Ur Creatinine 24 Hour Fluid Glucose Fluid Total Protein Digoxin Crossmatch See Detail 12/12/17 12/12/17 12/12/17 07:00 09:13 17:55 RBC 2.06 L Hgb 6.6 L Hct 18.6 L* MCV MCH MCHC 36 H RDW 17.8 H Plt Count 77 L Lymph % (Auto) [place] % (Auto) Baso % (Auto) Lymph # [place] # Baso # Seg Neutrophils % Seg Neuts % (Manual) Lymphocytes % (Manual) Eosinophils % (Manual) Basophils % (Manual) Lymphocytes # (Manual) Eosinophils # (Manual) Basophils # (Manual) PT INR APTT Fibrinogen D-Dimer POC ABG pH 7.452 H POC ABG pCO2 22.2 L POC ABG pO2 75 L Sodium Potassium Chloride Carbon Dioxide BUN Creatinine Glucose POC Glucose 119 H Lactic Acid Calcium Phosphorus Magnesium TIBC Ferritin Total Bilirubin Direct Bilirubin AST Ammonia Lactate Dehydrogenase NT-Pro-B Natriuret Pep Total Protein Albumin Lipase Vitamin B12 Urine WBC (Auto) Urine Creatinine Ur Creatinine 24 Hour Fluid Glucose Fluid Total Protein Digoxin Crossmatch 12/12/17 12/12/17 12/12/17 19:50 19:50 19:50 RBC 2.40 L Hgb 7.8 L Hct 21.3 L MCV MCH 33 H MCHC 37 H RDW 16.1 H Plt Count 99 L Lymph % (Auto) [place] % (Auto) Baso % (Auto) Lymph # [place] # Baso # Seg Neutrophils % Seg Neuts % (Manual) 87.0 H Lymphocytes % (Manual) 5.0 L Eosinophils % (Manual) Basophils % (Manual) Lymphocytes # (Manual) 0.3 L Eosinophils # (Manual) Basophils # (Manual) PT 21.9 H INR 1.79 H APTT 41.5 H Fibrinogen 128 L D-Dimer 1215.06 H POC ABG pH POC ABG pCO2 POC ABG pO2 Sodium Potassium Chloride Carbon Dioxide BUN Creatinine Glucose POC Glucose Lactic Acid Calcium Phosphorus Magnesium TIBC Ferritin Total Bilirubin 4.10 H Direct Bilirubin 1.6 H AST Ammonia Lactate Dehydrogenase NT-Pro-B Natriuret Pep Total Protein Albumin Lipase Vitamin B12 Urine WBC (Auto) Urine Creatinine Ur Creatinine 24 Hour Fluid Glucose Fluid Total Protein Digoxin Crossmatch 12/12/17 12/12/17 12/12/17 19:50 19:50 23:46 RBC Hgb Hct MCV MCH MCHC RDW Plt Count Lymph % (Auto) [place] % (Auto) Baso % (Auto) Lymph # [place] # Baso # Seg Neutrophils % Seg Neuts % (Manual) Lymphocytes % (Manual) Eosinophils % (Manual) Basophils % (Manual) Lymphocytes # (Manual) Eosinophils # (Manual) Basophils # (Manual) PT INR APTT Fibrinogen D-Dimer POC ABG pH POC ABG pCO2 POC ABG pO2 Sodium Potassium Chloride Carbon Dioxide BUN Creatinine Glucose POC Glucose 110 H Lactic Acid Calcium Phosphorus Magnesium TIBC Ferritin Total Bilirubin Direct Bilirubin AST Ammonia Lactate Dehydrogenase 213 H NT-Pro-B Natriuret Pep Total Protein Albumin Lipase Vitamin B12 1465 H Urine WBC (Auto) Urine Creatinine Ur Creatinine 24 Hour Fluid Glucose Fluid Total Protein Digoxin Crossmatch 12/13/17 12/13/17 12/13/17 04:00 04:00 05:12 RBC 2.32 L Hgb 7.4 L Hct 20.8 L MCV MCH MCHC 36 H RDW 16.1 H Plt Count 134 L Lymph % (Auto) 13.1 L [place] % (Auto) 7.9 H Baso % (Auto) Lymph # 0.8 L [place] # Baso # Seg Neutrophils % 76.3 H Seg Neuts % (Manual) Lymphocytes % (Manual) Eosinophils % (Manual) Basophils % (Manual) Lymphocytes # (Manual) Eosinophils # (Manual) Basophils # (Manual) PT INR APTT Fibrinogen D-Dimer POC ABG pH POC ABG pCO2 POC ABG pO2 Sodium Potassium Chloride Carbon Dioxide 21 L D BUN 48 H Creatinine 4.6 H Glucose 104 H POC Glucose 134 H Lactic Acid Calcium 8.1 L Phosphorus Magnesium TIBC Ferritin Total Bilirubin 4.70 H Direct Bilirubin AST 43 H Ammonia Lactate Dehydrogenase NT-Pro-B Natriuret Pep Total Protein 5.8 L Albumin 3.1 L Lipase Vitamin B12 Urine WBC (Auto) Urine Creatinine Ur Creatinine 24 Hour Fluid Glucose Fluid Total Protein Digoxin Crossmatch 12/13/17 12/13/17 12/13/17 08:45 12:25 14:03 RBC Hgb Hct MCV MCH MCHC RDW Plt Count Lymph % (Auto) [place] % (Auto) Baso % (Auto) Lymph # [place] # Baso # Seg Neutrophils % Seg Neuts % (Manual) Lymphocytes % (Manual) Eosinophils % (Manual) Basophils % (Manual) Lymphocytes # (Manual) Eosinophils # (Manual) Basophils # (Manual) PT 20.5 H INR 1.65 H APTT Fibrinogen D-Dimer POC ABG pH POC ABG pCO2 POC ABG pO2 Sodium Potassium Chloride Carbon Dioxide BUN Creatinine Glucose POC Glucose 112 H Lactic Acid 3.70 H* Calcium Phosphorus Magnesium TIBC Ferritin Total Bilirubin Direct Bilirubin AST Ammonia Lactate Dehydrogenase NT-Pro-B Natriuret Pep Total Protein Albumin Lipase Vitamin B12 Urine WBC (Auto) Urine Creatinine Ur Creatinine 24 Hour Fluid Glucose Fluid Total Protein Digoxin Crossmatch 12/13/17 12/13/17 12/13/17 14:03 18:52 21:09 RBC Hgb Hct MCV MCH MCHC RDW Plt Count Lymph % (Auto) [place] % (Auto) Baso % (Auto) Lymph # [place] # Baso # Seg Neutrophils % Seg Neuts % (Manual) Lymphocytes % (Manual) Eosinophils % (Manual) Basophils % (Manual) Lymphocytes # (Manual) Eosinophils # (Manual) Basophils # (Manual) PT INR APTT Fibrinogen D-Dimer POC ABG pH POC ABG pCO2 POC ABG pO2 Sodium Potassium Chloride Carbon Dioxide BUN Creatinine Glucose POC Glucose 110 H Lactic Acid 4.00 H* Calcium Phosphorus Magnesium TIBC Ferritin Total Bilirubin Direct Bilirubin AST Ammonia 87.0 H Lactate Dehydrogenase NT-Pro-B Natriuret Pep Total Protein Albumin Lipase Vitamin B12 Urine WBC (Auto) Urine Creatinine Ur Creatinine 24 Hour Fluid Glucose Fluid Total Protein Digoxin Crossmatch 12/14/17 12/14/17 12/14/17 00:25 03:30 03:30 RBC 2.29 L Hgb 7.3 L Hct 20.7 L MCV MCH MCHC 35 H RDW 16.2 H Plt Count 84 L Lymph % (Auto) 12.8 L [place] % (Auto) 8.3 H Baso % (Auto) Lymph # 0.6 L [place] # Baso # Seg Neutrophils % 77.2 H Seg Neuts % (Manual) Lymphocytes % (Manual) Eosinophils % (Manual) Basophils % (Manual) Lymphocytes # (Manual) Eosinophils # (Manual) Basophils # (Manual) PT INR APTT Fibrinogen D-Dimer POC ABG pH POC ABG pCO2 POC ABG pO2 Sodium Potassium Chloride 96.1 L Carbon Dioxide BUN 48 H Creatinine 4.6 H Glucose 125 H POC Glucose 131 H Lactic Acid Calcium 7.9 L Phosphorus Magnesium TIBC Ferritin Total Bilirubin 4.70 H Direct Bilirubin AST 45 H Ammonia Lactate Dehydrogenase NT-Pro-B Natriuret Pep Total Protein 6.1 L Albumin 3.4 L Lipase Vitamin B12 Urine WBC (Auto) Urine Creatinine Ur Creatinine 24 Hour Fluid Glucose Fluid Total Protein Digoxin Crossmatch 12/14/17 12/14/17 12/14/17 05:31 12:26 12:55 RBC Hgb Hct MCV MCH MCHC RDW Plt Count Lymph % (Auto) [place] % (Auto) Baso % (Auto) Lymph # [place] # Baso # Seg Neutrophils % Seg Neuts % (Manual) Lymphocytes % (Manual) Eosinophils % (Manual) Basophils % (Manual) Lymphocytes # (Manual) Eosinophils # (Manual) Basophils # (Manual) PT INR APTT Fibrinogen D-Dimer POC ABG pH POC ABG pCO2 POC ABG pO2 Sodium Potassium Chloride Carbon Dioxide BUN Creatinine Glucose POC Glucose 125 H 117 H Lactic Acid 3.40 H* Calcium Phosphorus Magnesium TIBC Ferritin Total Bilirubin Direct Bilirubin AST Ammonia Lactate Dehydrogenase NT-Pro-B Natriuret Pep Total Protein Albumin Lipase Vitamin B12 Urine WBC (Auto) Urine Creatinine Ur Creatinine 24 Hour Fluid Glucose Fluid Total Protein Digoxin Crossmatch 12/14/17 12/14/17 12/14/17 15:26 17:26 18:07 RBC Hgb Hct MCV MCH MCHC RDW Plt Count Lymph % (Auto) [place] % (Auto) Baso % (Auto) Lymph # [place] # Baso # Seg Neutrophils % Seg Neuts % (Manual) Lymphocytes % (Manual) Eosinophils % (Manual) Basophils % (Manual) Lymphocytes # (Manual) Eosinophils # (Manual) Basophils # (Manual) PT INR APTT Fibrinogen D-Dimer POC ABG pH POC ABG pCO2 POC ABG pO2 Sodium Potassium Chloride Carbon Dioxide BUN Creatinine Glucose POC Glucose 143 H Lactic Acid 4.00 H* 3.90 H* Calcium Phosphorus Magnesium TIBC Ferritin Total Bilirubin Direct Bilirubin AST Ammonia Lactate Dehydrogenase NT-Pro-B Natriuret Pep Total Protein Albumin Lipase Vitamin B12 Urine WBC (Auto) Urine Creatinine Ur Creatinine 24 Hour Fluid Glucose Fluid Total Protein Digoxin Crossmatch 12/14/17 12/15/17 12/15/17 Unknown 00:08 04:51 RBC 2.27 L Hgb 7.3 L Hct 20.7 L MCV MCH MCHC 35 H RDW 16.1 H Plt Count 92 L Lymph % (Auto) 12.5 L [place] % (Auto) 10.4 H Baso % (Auto) Lymph # 0.6 L [place] # Baso # Seg Neutrophils % 74.7 H Seg Neuts % (Manual) Lymphocytes % (Manual) Eosinophils % (Manual) Basophils % (Manual) Lymphocytes # (Manual) Eosinophils # (Manual) Basophils # (Manual) PT INR APTT Fibrinogen D-Dimer POC ABG pH POC ABG pCO2 POC ABG pO2 Sodium Potassium Chloride Carbon Dioxide BUN Creatinine Glucose POC Glucose 124 H Lactic Acid Calcium Phosphorus Magnesium TIBC Ferritin Total Bilirubin Direct Bilirubin AST Ammonia Lactate Dehydrogenase NT-Pro-B Natriuret Pep Total Protein Albumin Lipase Vitamin B12 Urine WBC (Auto) Urine Creatinine 122.5 H Ur Creatinine 24 Hour 0.3 L Fluid Glucose Fluid Total Protein Digoxin Crossmatch 12/15/17 12/15/17 12/15/17 04:51 04:51 05:56 RBC Hgb Hct MCV MCH MCHC RDW Plt Count Lymph % (Auto) [place] % (Auto) Baso % (Auto) Lymph # [place] # Baso # Seg Neutrophils % Seg Neuts % (Manual) Lymphocytes % (Manual) Eosinophils % (Manual) Basophils % (Manual) Lymphocytes # (Manual) Eosinophils # (Manual) Basophils # (Manual) PT INR APTT Fibrinogen D-Dimer POC ABG pH POC ABG pCO2 POC ABG pO2 Sodium Potassium 3.5 L Chloride 92.6 L Carbon Dioxide BUN 50 H Creatinine 4.8 H Glucose 141 H POC Glucose 143 H Lactic Acid Calcium 7.9 L Phosphorus Magnesium TIBC Ferritin Total Bilirubin 3.60 H Direct Bilirubin AST 44 H Ammonia 24.0 L Lactate Dehydrogenase NT-Pro-B Natriuret Pep Total Protein 6.1 L Albumin 3.8 L Lipase Vitamin B12 Urine WBC (Auto) Urine Creatinine Ur Creatinine 24 Hour Fluid Glucose Fluid Total Protein Digoxin Crossmatch 12/15/17 12/15/17 12/16/17 12:17 23:10 07:04 RBC Hgb Hct MCV MCH MCHC RDW Plt Count Lymph % (Auto) [place] % (Auto) Baso % (Auto) Lymph # [place] # Baso # Seg Neutrophils % Seg Neuts % (Manual) Lymphocytes % (Manual) Eosinophils % (Manual) Basophils % (Manual) Lymphocytes # (Manual) Eosinophils # (Manual) Basophils # (Manual) PT INR APTT Fibrinogen D-Dimer POC ABG pH POC ABG pCO2 POC ABG pO2 Sodium Potassium Chloride Carbon Dioxide BUN Creatinine Glucose POC Glucose 127 H 157 H 147 H Lactic Acid Calcium Phosphorus Magnesium TIBC Ferritin Total Bilirubin Direct Bilirubin AST Ammonia Lactate Dehydrogenase NT-Pro-B Natriuret Pep Total Protein Albumin Lipase Vitamin B12 Urine WBC (Auto) Urine Creatinine Ur Creatinine 24 Hour Fluid Glucose Fluid Total Protein Digoxin Crossmatch 12/16/17 12/16/17 12/16/17 11:35 12:37 12:37 RBC 2.21 L Hgb 6.9 L Hct 20.2 L MCV MCH MCHC RDW 16.2 H Plt Count 50 L Lymph % (Auto) [place] % (Auto) 9.7 H Baso % (Auto) Lymph # 0.7 L [place] # Baso # Seg Neutrophils % 73.1 H Seg Neuts % (Manual) Lymphocytes % (Manual) Eosinophils % (Manual) Basophils % (Manual) Lymphocytes # (Manual) Eosinophils # (Manual) Basophils # (Manual) PT INR APTT Fibrinogen D-Dimer POC ABG pH POC ABG pCO2 POC ABG pO2 Sodium Potassium Chloride 88.2 L Carbon Dioxide BUN 52 H Creatinine 5.5 H Glucose 107 H POC Glucose 134 H Lactic Acid Calcium 7.8 L Phosphorus Magnesium TIBC Ferritin Total Bilirubin 2.60 H Direct Bilirubin AST 49 H Ammonia Lactate Dehydrogenase NT-Pro-B Natriuret Pep Total Protein Albumin 3.6 L Lipase Vitamin B12 Urine WBC (Auto) Urine Creatinine Ur Creatinine 24 Hour Fluid Glucose Fluid Total Protein Digoxin Crossmatch 12/16/17 12/16/17 12/16/17 18:06 20:45 23:34 RBC Hgb Hct MCV MCH MCHC RDW Plt Count Lymph % (Auto) [place] % (Auto) Baso % (Auto) Lymph # [place] # Baso # Seg Neutrophils % Seg Neuts % (Manual) Lymphocytes % (Manual) Eosinophils % (Manual) Basophils % (Manual) Lymphocytes # (Manual) Eosinophils # (Manual) Basophils # (Manual) PT INR APTT Fibrinogen D-Dimer POC ABG pH POC ABG pCO2 POC ABG pO2 Sodium Potassium Chloride Carbon Dioxide BUN Creatinine Glucose POC Glucose 133 H 139 H Lactic Acid Calcium Phosphorus Magnesium TIBC Ferritin Total Bilirubin Direct Bilirubin AST Ammonia Lactate Dehydrogenase NT-Pro-B Natriuret Pep Total Protein Albumin Lipase Vitamin B12 Urine WBC (Auto) Urine Creatinine Ur Creatinine 24 Hour Fluid Glucose Fluid Total Protein Digoxin Crossmatch See Detail 12/17/17 12/17/17 12/17/17 05:27 05:27 06:11 RBC 2.10 L Hgb 6.6 L Hct 19.2 L* MCV MCH MCHC 35 H RDW 16.5 H Plt Count 65 L Lymph % (Auto) 12.6 L [place] % (Auto) 9.6 H Baso % (Auto) Lymph # 0.7 L [place] # Baso # Seg Neutrophils % 75.8 H Seg Neuts % (Manual) Lymphocytes % (Manual) Eosinophils % (Manual) Basophils % (Manual) Lymphocytes # (Manual) Eosinophils # (Manual) Basophils # (Manual) PT INR APTT Fibrinogen D-Dimer POC ABG pH POC ABG pCO2 POC ABG pO2 Sodium 135 L Potassium 3.4 L Chloride 84.9 L Carbon Dioxide 33 H BUN 53 H Creatinine 5.9 H Glucose POC Glucose 110 H Lactic Acid Calcium 7.7 L Phosphorus Magnesium TIBC Ferritin Total Bilirubin 2.70 H Direct Bilirubin AST 50 H Ammonia Lactate Dehydrogenase NT-Pro-B Natriuret Pep Total Protein 6.2 L Albumin 3.7 L Lipase Vitamin B12 Urine WBC (Auto) Urine Creatinine Ur Creatinine 24 Hour Fluid Glucose Fluid Total Protein Digoxin Crossmatch 12/17/17 12/18/17 12/18/17 09:34 00:05 05:21 RBC 3.35 L Hgb 10.3 L D Hct 30.4 L D MCV MCH MCHC RDW 16.2 H Plt Count 57 L Lymph % (Auto) 8.0 L [place] % (Auto) 10.9 H Baso % (Auto) Lymph # 0.6 L [place] # Baso # Seg Neutrophils % 80.2 H Seg Neuts % (Manual) Lymphocytes % (Manual) Eosinophils % (Manual) Basophils % (Manual) Lymphocytes # (Manual) Eosinophils # (Manual) Basophils # (Manual) PT 23.9 H INR 1.99 H APTT Fibrinogen D-Dimer POC ABG pH POC ABG pCO2 POC ABG pO2 Sodium Potassium Chloride Carbon Dioxide BUN Creatinine Glucose POC Glucose 132 H Lactic Acid Calcium Phosphorus Magnesium TIBC Ferritin Total Bilirubin Direct Bilirubin AST Ammonia Lactate Dehydrogenase NT-Pro-B Natriuret Pep Total Protein Albumin Lipase Vitamin B12 Urine WBC (Auto) Urine Creatinine Ur Creatinine 24 Hour Fluid Glucose Fluid Total Protein Digoxin Crossmatch 12/18/17 12/18/17 12/18/17 05:21 06:16 11:11 RBC Hgb Hct MCV MCH MCHC RDW Plt Count Lymph % (Auto) [place] % (Auto) Baso % (Auto) Lymph # [place] # Baso # Seg Neutrophils % Seg Neuts % (Manual) Lymphocytes % (Manual) Eosinophils % (Manual) Basophils % (Manual) Lymphocytes # (Manual) Eosinophils # (Manual) Basophils # (Manual) PT 34.7 H INR 3.17 H APTT Fibrinogen D-Dimer POC ABG pH POC ABG pCO2 POC ABG pO2 Sodium Potassium 3.5 L Chloride 87.1 L Carbon Dioxide BUN 35 H Creatinine 4.3 H Glucose 110 H POC Glucose 116 H Lactic Acid Calcium 8.1 L Phosphorus Magnesium TIBC Ferritin Total Bilirubin 5.10 H Direct Bilirubin AST 56 H Ammonia Lactate Dehydrogenase NT-Pro-B Natriuret Pep Total Protein Albumin Lipase Vitamin B12 Urine WBC (Auto) Urine Creatinine Ur Creatinine 24 Hour Fluid Glucose Fluid Total Protein Digoxin Crossmatch 12/18/17 12/18/17 12/18/17 13:10 17:52 22:04 RBC Hgb Hct MCV MCH MCHC RDW Plt Count Lymph % (Auto) [place] % (Auto) Baso % (Auto) Lymph # [place] # Baso # Seg Neutrophils % Seg Neuts % (Manual) Lymphocytes % (Manual) Eosinophils % (Manual) Basophils % (Manual) Lymphocytes # (Manual) Eosinophils # (Manual) Basophils # (Manual) PT 25.9 H INR 2.20 H APTT Fibrinogen D-Dimer POC ABG pH POC ABG pCO2 POC ABG pO2 Sodium Potassium Chloride Carbon Dioxide BUN Creatinine Glucose POC Glucose 114 H 108 H Lactic Acid Calcium Phosphorus Magnesium TIBC Ferritin Total Bilirubin Direct Bilirubin AST Ammonia Lactate Dehydrogenase NT-Pro-B Natriuret Pep Total Protein Albumin Lipase Vitamin B12 Urine WBC (Auto) Urine Creatinine Ur Creatinine 24 Hour Fluid Glucose Fluid Total Protein Digoxin Crossmatch 12/19/17 12/19/17 12/19/17 05:55 05:55 10:20 RBC 2.85 L Hgb 9.1 L Hct 25.7 L MCV MCH MCHC 35 H RDW 16.4 H Plt Count 61 L Lymph % (Auto) [place] % (Auto) Baso % (Auto) Lymph # [place] # Baso # Seg Neutrophils % Seg Neuts % (Manual) Lymphocytes % (Manual) Eosinophils % (Manual) Basophils % (Manual) Lymphocytes # (Manual) Eosinophils # (Manual) Basophils # (Manual) PT INR APTT Fibrinogen D-Dimer POC ABG pH POC ABG pCO2 POC ABG pO2 Sodium Potassium Chloride 94.5 L Carbon Dioxide BUN 27 H Creatinine 3.6 H Glucose POC Glucose 131 H Lactic Acid Calcium 8.2 L Phosphorus Magnesium TIBC Ferritin Total Bilirubin Direct Bilirubin AST Ammonia Lactate Dehydrogenase NT-Pro-B Natriuret Pep Total Protein Albumin Lipase Vitamin B12 Urine WBC (Auto) Urine Creatinine Ur Creatinine 24 Hour Fluid Glucose Fluid Total Protein Digoxin Crossmatch 12/19/17 12/21/17 12/21/17 11:46 05:26 05:26 RBC 2.60 L Hgb 8.4 L Hct 23.9 L MCV MCH MCHC 35 H RDW 16.2 H Plt Count 57 L Lymph % (Auto) 12.4 L [place] % (Auto) 10.7 H Baso % (Auto) Lymph # [place] # 1.0 H Baso # Seg Neutrophils % 74.8 H Seg Neuts % (Manual) Lymphocytes % (Manual) Eosinophils % (Manual) Basophils % (Manual) Lymphocytes # (Manual) Eosinophils # (Manual) Basophils # (Manual) PT 26.2 H INR 2.23 H APTT Fibrinogen D-Dimer POC ABG pH POC ABG pCO2 POC ABG pO2 Sodium Potassium Chloride Carbon Dioxide BUN Creatinine Glucose POC Glucose Lactic Acid Calcium Phosphorus Magnesium TIBC Ferritin Total Bilirubin Direct Bilirubin AST Ammonia Lactate Dehydrogenase NT-Pro-B Natriuret Pep Total Protein Albumin Lipase Vitamin B12 Urine WBC (Auto) Urine Creatinine Ur Creatinine 24 Hour Fluid Glucose Fluid Total Protein Digoxin 0.4 L Crossmatch 12/21/17 12/23/17 12/24/17 09:40 08:15 04:51 RBC 1.80 L Hgb 5.9 L* Hct 17.0 L* D MCV MCH 33 H MCHC 35 H RDW 16.5 H Plt Count 53 L Lymph % (Auto) [place] % (Auto) Baso % (Auto) Lymph # [place] # Baso # Seg Neutrophils % Seg Neuts % (Manual) Lymphocytes % (Manual) Eosinophils % (Manual) Basophils % (Manual) Lymphocytes # (Manual) Eosinophils # (Manual) Basophils # (Manual) PT 26.4 H 27.9 H INR 2.26 H 2.42 H APTT Fibrinogen D-Dimer POC ABG pH POC ABG pCO2 POC ABG pO2 Sodium Potassium Chloride Carbon Dioxide BUN Creatinine Glucose POC Glucose Lactic Acid Calcium Phosphorus Magnesium TIBC Ferritin Total Bilirubin Direct Bilirubin AST Ammonia Lactate Dehydrogenase NT-Pro-B Natriuret Pep Total Protein Albumin Lipase Vitamin B12 Urine WBC (Auto) Urine Creatinine Ur Creatinine 24 Hour Fluid Glucose Fluid Total Protein Digoxin Crossmatch 12/24/17 12/24/17 12/24/17 04:51 06:25 08:20 RBC Hgb Hct MCV MCH MCHC RDW Plt Count Lymph % (Auto) [place] % (Auto) Baso % (Auto) Lymph # [place] # Baso # Seg Neutrophils % Seg Neuts % (Manual) Lymphocytes % (Manual) Eosinophils % (Manual) Basophils % (Manual) Lymphocytes # (Manual) Eosinophils # (Manual) Basophils # (Manual) PT 40.8 H INR 3.87 H APTT Fibrinogen D-Dimer POC ABG pH POC ABG pCO2 POC ABG pO2 Sodium Potassium 3.5 L Chloride Carbon Dioxide BUN 21 H Creatinine 4.4 H Glucose POC Glucose Lactic Acid Calcium 8.1 L Phosphorus Magnesium TIBC Ferritin Total Bilirubin Direct Bilirubin AST Ammonia Lactate Dehydrogenase NT-Pro-B Natriuret Pep Total Protein Albumin Lipase Vitamin B12 Urine WBC (Auto) Urine Creatinine Ur Creatinine 24 Hour Fluid Glucose Fluid Total Protein Digoxin Crossmatch See Detail 12/24/17 12/24/17 12/25/17 19:21 19:21 05:27 RBC 2.31 L Hgb 7.3 L 7.4 L Hct 20.4 L 21.3 L MCV MCH MCHC 35 H RDW 15.9 H Plt Count 39 L Lymph % (Auto) [place] % (Auto) 10.8 H Baso % (Auto) Lymph # 0.9 L [place] # Baso # Seg Neutrophils % 71.9 H Seg Neuts % (Manual) Lymphocytes % (Manual) Eosinophils % (Manual) Basophils % (Manual) Lymphocytes # (Manual) Eosinophils # (Manual) Basophils # (Manual) PT 21.3 H INR 1.73 H APTT Fibrinogen D-Dimer POC ABG pH POC ABG pCO2 POC ABG pO2 Sodium Potassium Chloride Carbon Dioxide BUN Creatinine Glucose POC Glucose Lactic Acid Calcium Phosphorus Magnesium TIBC Ferritin Total Bilirubin Direct Bilirubin AST Ammonia Lactate Dehydrogenase NT-Pro-B Natriuret Pep Total Protein Albumin Lipase Vitamin B12 Urine WBC (Auto) Urine Creatinine Ur Creatinine 24 Hour Fluid Glucose Fluid Total Protein Digoxin Crossmatch 12/25/17 12/25/17 12/25/17 05:27 05:27 12:24 RBC Hgb Hct MCV MCH MCHC RDW Plt Count Lymph % (Auto) [place] % (Auto) Baso % (Auto) Lymph # [place] # Baso # Seg Neutrophils % Seg Neuts % (Manual) Lymphocytes % (Manual) Eosinophils % (Manual) Basophils % (Manual) Lymphocytes # (Manual) Eosinophils # (Manual) Basophils # (Manual) PT 22.1 H INR 1.81 H APTT Fibrinogen D-Dimer POC ABG pH POC ABG pCO2 POC ABG pO2 Sodium Potassium 3.5 L Chloride 96.7 L Carbon Dioxide BUN Creatinine 3.2 H Glucose POC Glucose 140 H Lactic Acid Calcium 8.1 L Phosphorus Magnesium TIBC Ferritin Total Bilirubin Direct Bilirubin AST Ammonia Lactate Dehydrogenase NT-Pro-B Natriuret Pep Total Protein Albumin Lipase Vitamin B12 Urine WBC (Auto) Urine Creatinine Ur Creatinine 24 Hour Fluid Glucose Fluid Total Protein Digoxin Crossmatch 12/26/17 12/26/17 12/27/17 05:59 05:59 06:34 RBC 2.01 L 2.52 L Hgb 6.6 L 8.2 L Hct 18.6 L* 23.2 L MCV MCH 33 H MCHC 35 H 35 H RDW 16.6 H 15.3 H Plt Count 45 L 39 L Lymph % (Auto) 11.6 L [place] % (Auto) 10.3 H 11.2 H Baso % (Auto) Lymph # 1.0 L 0.7 L [place] # Baso # Seg Neutrophils % 72.2 H 75.4 H Seg Neuts % (Manual) Lymphocytes % (Manual) Eosinophils % (Manual) Basophils % (Manual) Lymphocytes # (Manual) Eosinophils # (Manual) Basophils # (Manual) PT INR APTT Fibrinogen D-Dimer POC ABG pH POC ABG pCO2 POC ABG pO2 Sodium Potassium 3.3 L Chloride Carbon Dioxide BUN Creatinine 3.8 H Glucose 110 H POC Glucose Lactic Acid Calcium Phosphorus 2.40 L Magnesium 1.40 L TIBC Ferritin Total Bilirubin 7.10 H Direct Bilirubin AST 73 H Ammonia Lactate Dehydrogenase NT-Pro-B Natriuret Pep Total Protein Albumin 3.5 L Lipase Vitamin B12 Urine WBC (Auto) Urine Creatinine Ur Creatinine 24 Hour Fluid Glucose Fluid Total Protein Digoxin Crossmatch 12/27/17 12/27/17 12/27/17 06:34 06:34 06:34 RBC Hgb Hct MCV MCH MCHC RDW Plt Count Lymph % (Auto) [place] % (Auto) Baso % (Auto) Lymph # [place] # Baso # Seg Neutrophils % Seg Neuts % (Manual) Lymphocytes % (Manual) Eosinophils % (Manual) Basophils % (Manual) Lymphocytes # (Manual) Eosinophils # (Manual) Basophils # (Manual) PT INR APTT Fibrinogen D-Dimer POC ABG pH POC ABG pCO2 POC ABG pO2 Sodium Potassium 3.3 L Chloride 95.4 L Carbon Dioxide BUN Creatinine 2.6 H Glucose 112 H POC Glucose Lactic Acid Calcium 8.1 L Phosphorus Magnesium TIBC 77 L Ferritin > 2000.0 H Total Bilirubin 8.00 H Direct Bilirubin AST 89 H Ammonia Lactate Dehydrogenase 302 H NT-Pro-B Natriuret Pep Total Protein Albumin 3.7 L Lipase Vitamin B12 Urine WBC (Auto) Urine Creatinine Ur Creatinine 24 Hour Fluid Glucose Fluid Total Protein Digoxin Crossmatch 12/28/17 12/28/17 12/29/17 06:24 09:00 00:30 RBC 2.25 L Hgb 7.5 L Hct 21.1 L MCV MCH 33 H MCHC 35 H RDW 16.2 H Plt Count 78 L D Lymph % (Auto) 12.5 L [place] % (Auto) 12.3 H Baso % (Auto) Lymph # 0.9 L [place] # 0.9 H Baso # Seg Neutrophils % 73.3 H Seg Neuts % (Manual) Lymphocytes % (Manual) Eosinophils % (Manual) Basophils % (Manual) Lymphocytes # (Manual) Eosinophils # (Manual) Basophils # (Manual) PT 23.7 H INR 1.97 H APTT 53.1 H Fibrinogen D-Dimer POC ABG pH POC ABG pCO2 POC ABG pO2 Sodium Potassium Chloride Carbon Dioxide BUN Creatinine Glucose POC Glucose 148 H Lactic Acid Calcium Phosphorus Magnesium TIBC Ferritin Total Bilirubin Direct Bilirubin AST Ammonia Lactate Dehydrogenase NT-Pro-B Natriuret Pep Total Protein Albumin Lipase Vitamin B12 Urine WBC (Auto) Urine Creatinine Ur Creatinine 24 Hour Fluid Glucose Fluid Total Protein Digoxin Crossmatch 12/29/17 12/29/17 12/29/17 00:34 03:59 03:59 RBC 2.19 L Hgb 7.2 L Hct 20.7 L MCV 95 H MCH 33 H MCHC 35 H RDW 16.9 H Plt Count 75 L Lymph % (Auto) [place] % (Auto) 10.8 H Baso % (Auto) Lymph # [place] # Baso # Seg Neutrophils % 70.8 H Seg Neuts % (Manual) Lymphocytes % (Manual) Eosinophils % (Manual) Basophils % (Manual) Lymphocytes # (Manual) Eosinophils # (Manual) Basophils # (Manual) PT 25.7 H INR 2.18 H APTT Fibrinogen D-Dimer POC ABG pH POC ABG pCO2 POC ABG pO2 Sodium Potassium Chloride Carbon Dioxide BUN Creatinine 2.3 H Glucose 111 H POC Glucose Lactic Acid Calcium Phosphorus Magnesium TIBC Ferritin Total Bilirubin 8.20 H Direct Bilirubin AST 66 H Ammonia Lactate Dehydrogenase NT-Pro-B Natriuret Pep Total Protein Albumin 3.5 L Lipase Vitamin B12 Urine WBC (Auto) Urine Creatinine Ur Creatinine 24 Hour Fluid Glucose Fluid Total Protein Digoxin Crossmatch 12/29/17 12/30/17 12/30/17 07:35 07:51 08:27 RBC 1.97 L Hgb 6.7 L Hct 18.8 L* MCV 96 H MCH 34 H MCHC 36 H RDW 17.6 H Plt Count 76 L Lymph % (Auto) [place] % (Auto) 10.5 H Baso % (Auto) Lymph # 1.0 L [place] # Baso # Seg Neutrophils % 72.4 H Seg Neuts % (Manual) Lymphocytes % (Manual) Eosinophils % (Manual) Basophils % (Manual) Lymphocytes # (Manual) Eosinophils # (Manual) Basophils # (Manual) PT INR APTT Fibrinogen D-Dimer POC ABG pH POC ABG pCO2 POC ABG pO2 Sodium Potassium Chloride Carbon Dioxide BUN Creatinine Glucose POC Glucose 113 H Lactic Acid Calcium Phosphorus Magnesium 1.50 L TIBC Ferritin Total Bilirubin Direct Bilirubin AST Ammonia Lactate Dehydrogenase NT-Pro-B Natriuret Pep Total Protein Albumin Lipase Vitamin B12 Urine WBC (Auto) Urine Creatinine Ur Creatinine 24 Hour Fluid Glucose Fluid Total Protein Digoxin Crossmatch 12/30/17 12/31/17 12/31/17 08:44 12:59 12:59 RBC 2.49 L Hgb 8.3 L Hct 23.0 L MCV MCH 33 H MCHC 36 H RDW 17.5 H Plt Count 69 L Lymph % (Auto) [place] % (Auto) 13.0 H Baso % (Auto) 1.9 H Lymph # 1.1 L [place] # 0.9 H Baso # Seg Neutrophils % Seg Neuts % (Manual) Lymphocytes % (Manual) Eosinophils % (Manual) Basophils % (Manual) Lymphocytes # (Manual) Eosinophils # (Manual) Basophils # (Manual) PT INR APTT Fibrinogen D-Dimer POC ABG pH POC ABG pCO2 POC ABG pO2 Sodium Potassium Chloride Carbon Dioxide BUN 21 H Creatinine 3.8 H D Glucose 114 H POC Glucose Lactic Acid Calcium Phosphorus Magnesium TIBC Ferritin Total Bilirubin 8.30 H Direct Bilirubin AST 46 H Ammonia Lactate Dehydrogenase NT-Pro-B Natriuret Pep Total Protein Albumin Lipase Vitamin B12 Urine WBC (Auto) Urine Creatinine Ur Creatinine 24 Hour Fluid Glucose Fluid Total Protein Digoxin Crossmatch See Detail 12/31/17 12/31/17 01/01/18 12:59 Unknown 05:27 RBC 2.69 L Hgb 9.1 L Hct 25.1 L MCV MCH 34 H MCHC 36 H RDW 17.5 H Plt Count 64 L Lymph % (Auto) 12.5 L [place] % (Auto) 14.4 H Baso % (Auto) Lymph # 0.9 L [place] # 1.1 H Baso # Seg Neutrophils % 70.4 H Seg Neuts % (Manual) Lymphocytes % (Manual) Eosinophils % (Manual) Basophils % (Manual) Lymphocytes # (Manual) Eosinophils # (Manual) Basophils # (Manual) PT 19.7 H INR 1.57 H APTT Fibrinogen D-Dimer POC ABG pH POC ABG pCO2 POC ABG pO2 Sodium Potassium Chloride Carbon Dioxide BUN Creatinine Glucose POC Glucose Lactic Acid Calcium Phosphorus Magnesium TIBC Ferritin Total Bilirubin Direct Bilirubin AST Ammonia Lactate Dehydrogenase NT-Pro-B Natriuret Pep Total Protein Albumin Lipase Vitamin B12 Urine WBC (Auto) Urine Creatinine Ur Creatinine 24 Hour Fluid Glucose 124 H Fluid Total Protein < 3.0 L Digoxin Crossmatch 01/01/18 01/01/18 01/03/18 05:27 05:27 06:24 RBC 2.62 L Hgb 8.7 L Hct 25.6 L MCV 98 H MCH 33 H MCHC RDW 19.4 H Plt Count 55 L Lymph % (Auto) [place] % (Auto) 10.9 H Baso % (Auto) 2.7 H Lymph # 1.1 L [place] # 0.9 H Baso # 0.2 H Seg Neutrophils % Seg Neuts % (Manual) Lymphocytes % (Manual) Eosinophils % (Manual) Basophils % (Manual) Lymphocytes # (Manual) Eosinophils # (Manual) Basophils # (Manual) PT 22.1 H INR 1.81 H APTT Fibrinogen D-Dimer POC ABG pH POC ABG pCO2 POC ABG pO2 Sodium Potassium Chloride Carbon Dioxide BUN Creatinine 2.8 H Glucose POC Glucose Lactic Acid Calcium Phosphorus Magnesium TIBC Ferritin Total Bilirubin 9.20 H Direct Bilirubin AST 49 H Ammonia Lactate Dehydrogenase NT-Pro-B Natriuret Pep Total Protein Albumin 3.8 L Lipase Vitamin B12 Urine WBC (Auto) Urine Creatinine Ur Creatinine 24 Hour Fluid Glucose Fluid Total Protein Digoxin Crossmatch 01/03/18 01/03/18 01/05/18 06:24 06:24 04:47 RBC 2.75 L Hgb 9.2 L Hct 27.3 L MCV 99 H MCH 34 H MCHC RDW 23.5 H Plt Count 55 L Lymph % (Auto) [place] % (Auto) 14.3 H Baso % (Auto) 2.3 H Lymph # [place] # 1.0 H Baso # 0.2 H Seg Neutrophils % Seg Neuts % (Manual) Lymphocytes % (Manual) Eosinophils % (Manual) Basophils % (Manual) Lymphocytes # (Manual) Eosinophils # (Manual) Basophils # (Manual) PT 24.1 H INR 2.01 H APTT Fibrinogen D-Dimer POC ABG pH POC ABG pCO2 POC ABG pO2 Sodium Potassium Chloride Carbon Dioxide BUN Creatinine Glucose POC Glucose Lactic Acid Calcium Phosphorus Magnesium TIBC Ferritin Total Bilirubin 9.00 H Direct Bilirubin 2.7 H AST 50 H Ammonia Lactate Dehydrogenase NT-Pro-B Natriuret Pep Total Protein Albumin 3.6 L Lipase Vitamin B12 Urine WBC (Auto) Urine Creatinine Ur Creatinine 24 Hour Fluid Glucose Fluid Total Protein Digoxin Crossmatch 01/05/18 01/05/18 01/05/18 04:47 04:47 14:57 RBC Hgb Hct MCV MCH MCHC RDW Plt Count Lymph % (Auto) [place] % (Auto) Baso % (Auto) Lymph # [place] # Baso # Seg Neutrophils % Seg Neuts % (Manual) Lymphocytes % (Manual) Eosinophils % (Manual) Basophils % (Manual) Lymphocytes # (Manual) Eosinophils # (Manual) Basophils # (Manual) PT 24.3 H INR 2.04 H APTT Fibrinogen D-Dimer POC ABG pH POC ABG pCO2 POC ABG pO2 Sodium Potassium Chloride Carbon Dioxide BUN Creatinine 2.6 H Glucose 117 H POC Glucose Lactic Acid Calcium Phosphorus Magnesium TIBC Ferritin Total Bilirubin 9.50 H Direct Bilirubin AST 50 H Ammonia 75.0 H Lactate Dehydrogenase NT-Pro-B Natriuret Pep Total Protein Albumin 3.7 L Lipase Vitamin B12 Urine WBC (Auto) Urine Creatinine Ur Creatinine 24 Hour Fluid Glucose Fluid Total Protein Digoxin Crossmatch 01/06/18 01/06/18 01/07/18 02:35 02:35 09:29 RBC 2.75 L Hgb 9.2 L Hct 27.7 L MCV 101 H MCH 34 H MCHC RDW 25.1 H Plt Count 46 L Lymph % (Auto) [place] % (Auto) Baso % (Auto) Lymph # [place] # Baso # Seg Neutrophils % Seg Neuts % (Manual) Lymphocytes % (Manual) 13.0 L Eosinophils % (Manual) 7.0 H Basophils % (Manual) 2.0 H Lymphocytes # (Manual) 1.0 L Eosinophils # (Manual) 0.6 H Basophils # (Manual) 0.2 H PT 21.3 H INR 1.73 H APTT 41.2 H Fibrinogen D-Dimer POC ABG pH POC ABG pCO2 POC ABG pO2 Sodium Potassium Chloride 96.3 L Carbon Dioxide 21 L BUN 23 H Creatinine 2.9 H Glucose POC Glucose Lactic Acid Calcium Phosphorus Magnesium TIBC Ferritin Total Bilirubin 9.80 H Direct Bilirubin AST 65 H Ammonia Lactate Dehydrogenase NT-Pro-B Natriuret Pep Total Protein Albumin 3.5 L Lipase Vitamin B12 Urine WBC (Auto) Urine Creatinine Ur Creatinine 24 Hour Fluid Glucose Fluid Total Protein Digoxin Crossmatch 01/08/18 01/09/18 01/09/18 06:15 05:16 10:18 RBC Hgb Hct MCV MCH MCHC RDW Plt Count Lymph % (Auto) [place] % (Auto) Baso % (Auto) Lymph # [place] # Baso # Seg Neutrophils % Seg Neuts % (Manual) Lymphocytes % (Manual) Eosinophils % (Manual) Basophils % (Manual) Lymphocytes # (Manual) Eosinophils # (Manual) Basophils # (Manual) PT 22.6 H 24.2 H INR 1.86 H 2.02 H APTT 49.5 H Fibrinogen D-Dimer POC ABG pH POC ABG pCO2 POC ABG pO2 Sodium Potassium Chloride Carbon Dioxide BUN Creatinine Glucose POC Glucose Lactic Acid Calcium Phosphorus Magnesium TIBC Ferritin Total Bilirubin Direct Bilirubin AST Ammonia 22.0 L Lactate Dehydrogenase NT-Pro-B Natriuret Pep Total Protein Albumin Lipase Vitamin B12 Urine WBC (Auto) Urine Creatinine Ur Creatinine 24 Hour Fluid Glucose Fluid Total Protein Digoxin Crossmatch Allied health notes reviewed: nursing
--- NOTE | 2018-01-09 18:43 | Cat Scan Report ---
FINAL REPORT PROCEDURE: CT CHEST WO CON TECHNIQUE: Computerized axial tomography of the chest was performed without contrast material. This study is performed without intravenous contrast and the sensitivity for pathology, including neoplasms, adenopathy, abscess, pulmonary embolism and aortic dissection, is reduced. HISTORY: pnuemothorax on cxr COMPARISON: No prior studies are available for comparison. TECHNICAL QUALITY: Satisfactory. FINDINGS: Heart and pericardium: Heart is at the upper limit of normal size. No pericardial effusion or thickening. Thoracic aorta: There is atherosclerotic calcification of the aorta. Pulmonary vasculature: Normal caliber. Lymph nodes: 9 millimeter right paratracheal lymph node. Lungs: There is focal patchy ground-glass airspace opacity at the right lung apex, which measures 16 millimeters. There is focal area of airspace consolidation in the peripheral right upper lobe, indeterminate in etiology but stable in appearance compared to the prior study. There is bibasilar atelectasis abutting the pleural effusions Pleural space: Large bilateral pleural effusions. No pneumothorax Musculoskeletal structures: No significant abnormality. Upper abdominal structures: Free intraperitoneal fluid is present. There is a portal venous shunt present in the liver. IMPRESSION: No pneumothorax. Large bilateral pleural effusions. Right lung airspace opacities as described above.
--- NOTE | 2018-01-09 19:31 | Progress Note ---
Assessment and Plan - Patient Problems (1) Acute hepatic encephalopathy Current Visit: Yes Status: Acute Plan to address problem: see orders. continue with lactulose, recheck ammonia level. continue same. supportive. (2) Anemia Current Visit: Yes Status: Acute Plan to address problem: see orders. Replacement transfusion, if hgb less than 7.0 same as above. see notes above. same as above, stable. see notes above. stable so far. (3) Renal failure Current Visit: Yes Status: Acute Plan to address problem: follow renal service. same as above. (4) Liver failure Current Visit: Yes Status: Acute Plan to address problem: Hepato-renal syndrome, continue with HD. (5) Coagulation disorder Current Visit: Yes Status: Acute Plan to address problem: see notes. Subjective Date of service: 01/09/18 Principal diagnosis: CARMEN on CKD; Acute Encephalopathy; Sepsis Syndrome; Anemia Interval history: Patient seen, restingm labs/notes reviewed. agree with management so far.labs showing consumptive coagulopathy. Patient seen, resting in bed, records/labs reviewed.PLT dropped some.Still no active bleeding. Patient seen/examined, records/labs / notes reviewed, hgb low at 6.9, will rec replacement transfusion,with HD tomorrow if planned to proceed with HD. Patient seen, resting in bed, labs/records reviewed, Hgb still low, transfusion written for today. Patient seen, resting in bed, labs reviewed, plt 57,000, rectal bleeding resolved, will continue to monitor patient/labs with you, and intervene with replacement transfusion, when needed. Patient seen, resting in bed, NAD, records reviewed. Patient seen, resting in bed, labs/records reviewed, no new issues, the latest plt fair, no any sign of bleeding. Patient seen, resting in bed, records reviewed, PLT 57,000, no bleeding. Patient seen, resting in bed, labs reviewed, hgb dropped drastically, due to rectal bleed.He is s/p blood transfusion. he is expected to continue to drop his hgb, as long as he continues to bleed. Will re check labs in am. Thrombocytopenia at above 20,000. will continue to monitor. Patient seen, resting in bed, labs reviewed, ,he will need some PLT+ FFP, especially if there is any plans for any procedure, otherwise, can watch if any active bleeding, or plt 20,000 or less. patient seen/examined, resting in bed, labs reviewed, s/p GI scope, and blood transfusion, Plt replacement ,to follow. patient seen, resting in bed, labs, reviewed, plt 39,000, replacement not given yesterday? Patient seen/examined, at the HD center, resting in bed, was able ro discuss his case with him, regarding prognosis, and options, as i had d/w his yesterday. he wants to talk with his first.. his PLT came up following transfusion, hgb at Fair level at this time,Will see how much this will hold in the next few days.He is really not a good candidate for any transplant ,given, his condition, and co morbid issues at this time. Prognosis is quite poor for Hepato-renal syndrome, let alone complicated by thrombocytopenia/anemia, and double vital organ failure.He has no real reserve as far as these organs are concerned.You may want to have a vince family talk with him, his , and doctors Patient resting in bed, labs reviewed, and fairly stable, slight drop in hgb, and plt, but overall stable in the last 24hrs.notes reviewed. Patient seen/resting in bed, labs reviewed, d/w primary team. Hgb dropped, but plt holding steady since replacement. Patient resting in bed, labs reviewed, rec stays the same.Replacement transfusion prn. i have spoken to patient/, and sister at [facility]. Patient seen/examined, resting in bed, c/o not eating much due to lack of appetite.Rec appetite enhancer. Patient seen, resting in bed, labs reviewed, and remain fair. Patient seen, resting in bed, labs, reviewed, INR 2+, PLT55,000.Will give some FFP today, and perhaps on sunday, to see if he can get his procedure done. Patient seen, resting in bed, labs reviewed, INR did not improve, following FFP yesterday , if at it was given. patient seen, resting in bed, labs reviewed, PLT, 46,000, no bleeding. If any procedure is intended, can give FFP+_ PLT.,or if any bleeding. Patient seen rthis am, resting in bed, labs reviewed, PT/INR ordered, post FFP transfusion, for possible procedure today.I do not think his INR can get to the desired level of i.4 due to damaged liver. I rec hang FFP during procedure, and PLT 1-2 units can even be given prior . Patient seen/examined, resting in bed, NAD, latest labs reviewed. Patient seen, resting in bed, labs reviewed, will get new labs. Objective - Constitutional Vitals: Vital Signs - 12hr 01/09/18 01/09/18 01/09/18 08:14 08:31 08:54 Temperature 98.1 F 98.1 F Pulse Rate 62 63 64 Respiratory 18 18 Rate Blood Pressure 93/60 Blood Pressure 93/60 [Left] O2 Sat by Pulse 96 97 Oximetry O2 Sat by Pulse Oximetry [ Anterior Bilateral Throughout] 01/09/18 01/09/18 01/09/18 12:00 12:15 12:30 Temperature 98.1 F Pulse Rate 64 62 64 Respiratory 16 Rate Blood Pressure 88/58 102/60 115/65 Blood Pressure [Left] O2 Sat by Pulse Oximetry O2 Sat by Pulse 97 Oximetry [ Anterior Bilateral Throughout] 01/09/18 01/09/18 01/09/18 12:45 13:00 13:15 Temperature Pulse Rate 64 65 63 Respiratory Rate Blood Pressure 104/51 107/63 117/53 Blood Pressure [Left] O2 Sat by Pulse Oximetry O2 Sat by Pulse Oximetry [ Anterior Bilateral Throughout] 01/09/18 01/09/18 01/09/18 13:30 13:45 14:00 Temperature Pulse Rate 67 76 65 Respiratory Rate Blood Pressure 120/50 122/53 96/51 Blood Pressure [Left] O2 Sat by Pulse Oximetry O2 Sat by Pulse Oximetry [ Anterior Bilateral Throughout] 01/09/18 01/09/18 01/09/18 14:15 14:30 14:45 Temperature Pulse Rate 68 73 72 Respiratory Rate Blood Pressure 89/59 107/48 104/45 Blood Pressure [Left] O2 Sat by Pulse Oximetry O2 Sat by Pulse Oximetry [ Anterior Bilateral Throughout] 01/09/18 01/09/18 15:21 16:16 Temperature 98.0 F 97.5 F L Pulse Rate 68 66 Respiratory 20 16 Rate Blood Pressure 107/70 91/58 Blood Pressure [Left] O2 Sat by Pulse 94 Oximetry O2 Sat by Pulse 97 Oximetry [ Anterior Bilateral Throughout] General appearance: Present: no acute distress, well-nourished - EENT Eyes: PERRL, EOM intact ENT: hearing intact, clear oral mucosa Ears: bilateral: normal - Neck Neck: supple, normal ROM - Respiratory Respiratory effort: normal Respiratory: bilateral: CTA - Breasts Breasts: deferred - Cardiovascular Rhythm: regular Heart Sounds: Present: S1 & S2. Absent: gallop, rub Extremities: pulses intact, No edema, normal color, Full ROM - Gastrointestinal General gastrointestinal: Present: soft, non-tender, non-distended, normal bowel sounds Rectal Exam: deferred - Genitourinary Male genitourinary: deferred - Integumentary Integumentary: clear, warm, dry - Musculoskeletal Musculoskeletal: 1, strength equal bilaterally - Neurologic Neurologic: moves all extremities - Psychiatric Psychiatric: appropriate mood/affect - Labs CBC & Chem 7: 01/06/18 02:35 01/06/18 02:35 Labs: Abnormal lab results 01/09/18 01/09/18 Range/Units 05:16 10:18 PT 24.2 H (12.2-14.9) Sec. INR 2.02 H (0.87-1.13) Ammonia 22.0 L (25-60) umol/L
[2018-01-10 06:10] LABS: Hematocrit 24.5 % (35.5-45.6); Hemoglobin 8.4 gm/dl (11.8-15.2); Mean Corpuscular HGB Conc 34 % (32-34); Mean Corpuscular Hemoglobin 35 pg (28-32); Mean Corpuscular Volume 102 fl (84-94)
[2018-01-10 06:24] LABS: Platelet Count 56 K/mm3 (140-440); Red Cell Distribution Width 27.3 % (13.2-15.2)
[2018-01-10 06:44] LABS: Albumin 3.6 g/dL (3.9-5); Calcium 9.6 mg/dL (8.4-10.2)
--- NOTE | 2018-01-10 09:32 | Progress Note ---
Assessment and Plan Impression: * Oliguric CARMEN secondary to ATN vs HRS --s/p permcath placement 12/17/17 and initiation of dialysis * Cirrhosis * Abdominal ascites * Anemia secondary to ABL * s/p Rectal bleeding * Hx of esophageal varices * Hyperbilirubinemia Plan: * Continue HD MWF - [facility] as tolerated; no evidence of renal recovery * Consultants' recommendations reviewed * Medical management of electrolytes * Avoid potential nephrotoxic agents * Dose medications for renal function * Outpatient HD MWF at [facility] arranged Subjective Date of service: 01/10/18 Principal diagnosis: CARMEN on CKD; Acute Encephalopathy; Sepsis Syndrome; Anemia Interval history: No acute events overnight Objective - Vital Signs Vital signs: Vital Signs - 12hr 01/09/18 01/10/18 01/10/18 23:34 00:18 05:38 Temperature 98.9 F 97.3 F L Pulse Rate 69 68 Respiratory 18 18 Rate Blood Pressure 102/58 93/60 Blood Pressure 102/58 [Left] O2 Sat by Pulse 97 94 Oximetry 01/10/18 08:33 Temperature 98.1 F Pulse Rate 62 Respiratory 18 Rate Blood Pressure 93/54 Blood Pressure [Left] O2 Sat by Pulse 90 Oximetry - General Appearance General appearance: well-developed EENT: ATNC Respiratory: Present: Decreased Breath Sounds Cardiology: regular, S1S2 Gastrointestinal: no tenderness, no distended Integumentary: no rash, warm and dry Musculoskeletal: other (no edema) Psychiatric: cooperative - Lab 01/10/18 05:01 01/10/18 05:01 Most recent lab results Calcium 9.6 mg/dL (8.4-10.2) 01/10/18 05:01 Phosphorus 2.40 mg/dL (2.5-4.5) L 12/26/17 05:59 Magnesium 1.70 mg/dL (1.7-2.3) 01/03/18 06:24 Urine Creatinine 122.5 mg/dL (0.1-20.0) H 12/14/17 Unknown
[2018-01-10 09:33] LABS: Anisocytosis 2+; Basophils % (Manual) 0 % (0.0-1.8); Eosinophils % (Manual) 0 % (0.0-4.3); Total Cells Counted 100
[2018-01-10 09:34] LABS: Acanthocytes 1+; Burr Cells 1+; Platelet Clumps Few; Poikilocytosis 2+
[2018-01-10 09:39] LABS: Platelet Estimate Cons
--- NOTE | 2018-01-10 09:42 | Event Note ---
Date: 01/10/[address] chest, no evidence of a pneumothorax. Has bilateral large pleural effusion with atelectasis. Focal infiltrate in the right lung. Images were personally reviewed
[2018-01-10] MEDS: CEPHULAC PO SCH ×2 (10:56→22:47)
[2018-01-10] MEDS: PROTONIX PO SCH (10:57)
[2018-01-10] MEDS: LOPRESSOR PO SCH ×2 (10:57→21:44)
[2018-01-10] MEDS: PROAMATINE PO SCH ×3 (10:57→20:10)
[2018-01-10] MEDS: THERAGRAN-M Tab PO SCH (10:57)
[2018-01-10] MEDS: XIFAXAN PO SCH ×2 (10:58→21:41)
--- NOTE | 2018-01-10 12:07 | Progress Note ---
Assessment and Plan Anemia s/p transfusion of PRBCs Thrombocytopenia, chronic Chronic renal failure initiated on dialysis Hypotension -on midodrine therapy Hx of Cirrhosis with bleeding esophageal varices requiring TIPS 11/2016 Paroxysmal Atrial flutter seen on telemetry currently in sinus rhythm; on beta blockers for suppression as tolerated normal TSH patient is considered not a candidate for anticoagulation given underlying liver cirrhosis. Pleural effusion Echocardiogram shows mild cardiomyopathy with left ventricular ejection fraction 45-50%. There is mild to moderate tricuspid regurgitation, pulmonary artery pressure is 31, and there is a left pleural effusion. Conservative cardiac management. Subjective Date of service: 01/10/18 Principal diagnosis: CARMEN on CKD; Acute Encephalopathy; Sepsis Syndrome; Anemia Interval history: No cardiac events reported overnight. Objective Vital Signs Temp Pulse Pulse Resp BP BP Pulse Ox 01/10/18 10:00 68 68 18 95 01/10/18 08:33 98.1 F 62 18 93/54 90 01/10/18 05:38 97.3 F L 18 93/60 01/10/18 00:18 98.9 F 68 18 102/58 94 01/09/18 23:34 69 102/58 97 01/09/18 21:11 72 01/09/18 19:55 98.9 F 74 20 98/61 98 01/09/18 16:16 97.5 F L 66 16 91/58 94 01/09/18 15:21 98.0 F 68 20 107/70 01/09/18 14:45 72 104/45 01/09/18 14:30 73 107/48 01/09/18 14:15 68 89/59 01/09/18 14:00 65 96/51 01/09/18 13:45 76 122/53 01/09/18 13:30 67 120/50 01/09/18 13:15 63 117/53 01/09/18 13:00 65 107/63 01/09/18 12:45 64 104/51 01/09/18 12:30 64 115/65 01/09/18 12:15 62 102/60 Pulse Ox 01/10/18 10:00 01/10/18 08:33 01/10/18 05:38 01/10/18 00:18 01/09/18 23:34 01/09/18 21:11 01/09/18 19:55 01/09/18 16:16 01/09/18 15:21 97 01/09/18 14:45 01/09/18 14:30 01/09/18 14:15 01/09/18 14:00 01/09/18 13:45 01/09/18 13:30 01/09/18 13:15 01/09/18 13:00 01/09/18 12:45 01/09/18 12:30 01/09/18 12:15 - Physical Examination General: No Apparent Distress Neuro: Positive: Weakness Skin: Positive: Clear Extremities: Absent: edema - Labs and Meds Cardiac Enzymes 01/10/18 Range/Units 05:01 AST 86 H (5-40) units/L CBC 01/10/18 Range/Units 05:01 WBC 8.5 (4.5-11.0) K/mm3 RBC 2.40 L (3.65-5.03) M/mm3 Hgb 8.4 L (11.8-15.2) gm/dl Hct 24.5 L (35.5-45.6) % Plt Count 56 L (140-440) K/mm3 Comprehensive Metabolic Panel 01/10/18 Range/Units 05:01 Sodium 138 (137-145) mmol/L Potassium 4.6 (3.6-5.0) mmol/L Chloride 94.8 L (98-107) mmol/L Carbon Dioxide 26 (22-30) mmol/L BUN 21 H (9-20) mg/dL Creatinine 2.6 H (0.8-1.5) mg/dL Glucose 88 (75-100) mg/dL Calcium 9.6 (8.4-10.2) mg/dL AST 86 H (5-40) units/L ALT 26 (7-56) units/L Alkaline Phosphatase 71 (35-129) units/L Total Protein 7.5 (6.3-8.2) g/dL Albumin 3.6 L (3.9-5) g/dL - Allied health notes Allied health notes reviewed: nursing
--- NOTE | 2018-01-10 13:36 | Progress Note ---
Assessment and Plan Assessment and Plan Chronic renal failure initiated on dialysis Anemia s/p transfusion of PRBCs Thrombocytopenia, chronic Hypotension -on midodrine therapy Hx of Cirrhosis with bleeding esophageal varices requiring TIPS 11/2016 Paroxysmal Atrial flutter seen on telemetry currently in sinus rhythm; on beta blockers for suppression as tolerated normal TSH patient is considered not a candidate for anticoagulation given underlying liver cirrhosis. Pleural effusion Echocardiogram shows mild cardiomyopathy with left ventricular ejection fraction 45-50%. There is mild to moderate tricuspid regurgitation, pulmonary artery pressure is 31, and there is a left pleural effusion. Discharge planning issues Arranged at [facility]---HD placement--To follow with [facility] as outpatient Debility-Needs SNF or Home health Physical therapy.If agrees will discharge today or tomorrow Subjective Date of service: 01/10/18 Principal diagnosis: CARMEN on CKD; Acute Encephalopathy; Sepsis Syndrome; Anemia Interval history: Still sob but better Objective - Constitutional Vitals: Vital Signs - 12hr 01/10/18 01/10/18 01/10/18 05:38 08:33 10:00 Temperature 97.3 F L 98.1 F Pulse Rate 62 68 Pulse Rate [ 68 Apical] Respiratory 18 18 18 Rate Blood Pressure 93/60 93/54 O2 Sat by Pulse 90 95 Oximetry 01/10/18 01/10/18 12:04 13:24 Temperature 98.1 F Pulse Rate 68 Pulse Rate [ Apical] Respiratory 16 Rate Blood Pressure 95/54 O2 Sat by Pulse 49 L 95 Oximetry General appearance: Present: mild distress, well-nourished - EENT Eyes: PERRL, EOM intact ENT: hearing intact, clear oral mucosa Ears: bilateral: normal - Neck Neck: supple, normal ROM - Respiratory Respiratory effort: normal Respiratory: left: other (has L vascath), bilateral: rales (basal) - Breasts Breasts: normal - Cardiovascular Heart rate: 80 Rhythm: regular Heart Sounds: Present: S1 & S2. Absent: gallop, rub Extremities: no ischemia, pulses intact, No edema, normal color, Full ROM - Gastrointestinal General gastrointestinal: Present: soft, non-tender, non-distended, normal bowel sounds - Genitourinary Male genitourinary: normal - Integumentary Integumentary: clear, warm, dry - Musculoskeletal Musculoskeletal: generalized weakness, other (Unable to walk PT working with him ) - Neurologic Neurologic: moves all extremities - Psychiatric Psychiatric: memory intact, appropriate mood/affect, intact judgment & insight - Labs CBC & Chem 7: 01/10/18 05:01 01/10/18 05:01 Labs: Abnormal lab results 01/10/18 01/10/18 Range/Units 05:01 05:01 RBC 2.40 L (3.65-5.03) M/mm3 Hgb 8.4 L (11.8-15.2) gm/dl Hct 24.5 L (35.5-45.6) % MCV 102 H (84-94) fl MCH 35 H (28-32) pg RDW 27.3 H (13.2-15.2) % Plt Count 56 L (140-440) K/mm3 Seg Neuts % (Manual) 78.0 H (40.0-70.0) % Lymphocytes % (Manual) 5.0 L (13.4-35.0) % Monocytes % (Manual) 17.0 H (0.0-7.3) % Lymphocytes # (Manual) 0.4 L (1.2-5.4) K/mm3 Monocytes # (Manual) 1.4 H (0.0-0.8) K/mm3 Chloride 94.8 L (98-107) mmol/L BUN 21 H (9-20) mg/dL Creatinine 2.6 H (0.8-1.5) mg/dL Total Bilirubin 11.40 H (0.1-1.2) mg/dL AST 86 H (5-40) units/L Albumin 3.6 L (3.9-5) g/dL
--- NOTE | 2018-01-10 15:11 | Progress Note ---
Assessment and Plan Patient sleeping at this time. No acute respiratory distress.O2 saturation 100 % on 2 litres O2.No acute respiratory distress. - Patient Problems (1) Bilateral pleural effusion Current Visit: No Status: Acute Plan to address problem: CT of chest reported large bilateral pleural effusion. But is asymptomatic. (2) Hypovolemic shock Current Visit: Yes Status: Acute Plan to address problem: Improved . (3) CARMEN (acute kidney injury) Current Visit: Yes Status: Acute Plan to address problem: Management as per nephrology. (4) Acute hepatic encephalopathy Current Visit: Yes Status: Acute Plan to address problem: Management as per primary care. (5) Alcoholic cirrhosis of liver with ascites Current Visit: Yes Status: Acute Plan to address problem: Management as per primary care. (6) Anemia Current Visit: Yes Status: Acute Plan to address problem: Management as per primary care. Subjective Date of service: 01/10/18 Principal diagnosis: CARMEN on CKD; Acute Encephalopathy; Sepsis Syndrome; Anemia Interval history: Patient sleeping at this time. No acute respiratory distress.O2 saturation 100 % on 2 litres O2.No acute respiratory distress. Objective Vital Signs - 12hr 01/10/18 01/10/18 01/10/18 05:38 08:33 10:00 Temperature 97.3 F L 98.1 F Pulse Rate 62 68 Pulse Rate [ 68 Apical] Respiratory 18 18 18 Rate Blood Pressure 93/60 93/54 O2 Sat by Pulse 90 100 Oximetry 01/10/18 01/10/18 12:04 13:24 Temperature 98.1 F Pulse Rate 68 Pulse Rate [ Apical] Respiratory 16 Rate Blood Pressure 95/54 O2 Sat by Pulse 49 L 95 Oximetry Constitutional: no acute distress, asleep, other (chronically ill looking elderly AAM, normocephalic and atraumatic) Eyes: non-icteric ENT: oropharynx moist, other (mallampati 2) Neck: supple, no lymphadenopathy, no JVD, other (no thyromegaly) Effort: normal Ascultation: Bilateral: diminished breath sounds (bases), rhonchi Percussion: Bilateral: not dull, dull (bases) Cardiovascular: regular rate and rhythm, other (S1,S2, no murmurms, gallops or rubs) Gastrointestinal: normoactive bowel sounds, soft, non-tender, other (distended) Integumentary: rash Extremities: no cyanosis, no edema, pulses normal, no ischemia or petechiae, cool Neurologic: non-focal exam, pupils equal and round, motor strength normal and ( weak), other (alert, awake) Psychiatric: other (normal affect, confusion) CBC and BMP: 01/10/18 05:01 01/10/18 05:01 ABG, PT/INR, D-dimer: ABG POC ABG pH 7.452 (7.35-7.45) H 12/12/17 09:13 POC ABG pCO2 22.2 (35-45) L 12/12/17 09:13 POC ABG pO2 75 (80-105) L 12/12/17 09:13 POC ABG HCO3 15.5 12/12/17 09:13 POC ABG Total CO2 16 12/12/17 09:13 POC ABG O2 Sat 96 12/12/17 09:13 PT/INR, D-dimer PT 24.2 Sec. (12.2-14.9) H 01/09/18 10:18 INR 2.02 (0.87-1.13) H 01/09/18 10:18 D-Dimer 1215.06 ng/mlDDU (0-234) H 12/12/17 19:50 Abnormal lab findings: Abnormal Labs 12/10/17 12/10/17 12/10/17 13:14 13:14 23:05 RBC 2.31 L Hgb 7.3 L Hct 21.5 L MCV MCH MCHC RDW 17.7 H Plt Count 61 L Lymph % (Auto) Bibb % (Auto) Baso % (Auto) Lymph # Bibb # Baso # Seg Neutrophils % Seg Neuts % (Manual) 81.0 H Lymphocytes % (Manual) 11.0 L Monocytes % (Manual) Eosinophils % (Manual) Basophils % (Manual) Lymphocytes # (Manual) 0.6 L Monocytes # (Manual) Eosinophils # (Manual) Basophils # (Manual) PT INR APTT Fibrinogen D-Dimer POC ABG pH POC ABG pCO2 POC ABG pO2 Sodium 136 L Potassium 5.2 H Chloride Carbon Dioxide 15 L BUN 47 H Creatinine 5.2 H Glucose 127 H POC Glucose Lactic Acid Calcium Phosphorus Magnesium TIBC Ferritin Total Bilirubin 3.50 H Direct Bilirubin AST 71 H Ammonia Lactate Dehydrogenase NT-Pro-B Natriuret Pep Total Protein Albumin 2.6 L Lipase Vitamin B12 Urine WBC (Auto) 10.0 H Urine Creatinine Ur Creatinine 24 Hour Fluid Glucose Fluid Total Protein Digoxin Crossmatch 12/10/17 12/10/17 12/10/17 23:14 23:14 23:14 RBC Hgb Hct MCV MCH MCHC RDW Plt Count Lymph % (Auto) Bibb % (Auto) Baso % (Auto) Lymph # Bibb # Baso # Seg Neutrophils % Seg Neuts % (Manual) Lymphocytes % (Manual) Monocytes % (Manual) Eosinophils % (Manual) Basophils % (Manual) Lymphocytes # (Manual) Monocytes # (Manual) Eosinophils # (Manual) Basophils # (Manual) PT INR APTT Fibrinogen D-Dimer POC ABG pH POC ABG pCO2 POC ABG pO2 Sodium Potassium Chloride Carbon Dioxide BUN Creatinine Glucose POC Glucose Lactic Acid 2.40 H* Calcium Phosphorus Magnesium TIBC Ferritin Total Bilirubin Direct Bilirubin AST Ammonia 134.0 H Lactate Dehydrogenase NT-Pro-B Natriuret Pep 9558 H Total Protein Albumin Lipase Vitamin B12 Urine WBC (Auto) Urine Creatinine Ur Creatinine 24 Hour Fluid Glucose Fluid Total Protein Digoxin Crossmatch 12/10/17 12/11/17 12/11/17 23:14 00:29 03:33 RBC Hgb Hct MCV MCH MCHC RDW Plt Count Lymph % (Auto) Bibb % (Auto) Baso % (Auto) Lymph # Bibb # Baso # Seg Neutrophils % Seg Neuts % (Manual) Lymphocytes % (Manual) Monocytes % (Manual) Eosinophils % (Manual) Basophils % (Manual) Lymphocytes # (Manual) Monocytes # (Manual) Eosinophils # (Manual) Basophils # (Manual) PT INR APTT Fibrinogen D-Dimer POC ABG pH POC ABG pCO2 POC ABG pO2 Sodium Potassium Chloride Carbon Dioxide BUN Creatinine Glucose POC Glucose Lactic Acid 2.80 H* 3.00 H* Calcium Phosphorus Magnesium TIBC Ferritin Total Bilirubin Direct Bilirubin AST Ammonia Lactate Dehydrogenase NT-Pro-B Natriuret Pep Total Protein Albumin Lipase 7 L Vitamin B12 Urine WBC (Auto) Urine Creatinine Ur Creatinine 24 Hour Fluid Glucose Fluid Total Protein Digoxin Crossmatch 12/11/17 12/11/17 12/11/17 04:08 04:34 04:34 RBC Hgb Hct MCV MCH MCHC RDW Plt Count Lymph % (Auto) Bibb % (Auto) Baso % (Auto) Lymph # Bibb # Baso # Seg Neutrophils % Seg Neuts % (Manual) Lymphocytes % (Manual) Monocytes % (Manual) Eosinophils % (Manual) Basophils % (Manual) Lymphocytes # (Manual) Monocytes # (Manual) Eosinophils # (Manual) Basophils # (Manual) PT 19.1 H INR 1.51 H APTT 45.7 H Fibrinogen D-Dimer POC ABG pH POC ABG pCO2 POC ABG pO2 Sodium Potassium Chloride Carbon Dioxide BUN Creatinine Glucose POC Glucose 113 H Lactic Acid 3.10 H* Calcium Phosphorus Magnesium TIBC Ferritin Total Bilirubin Direct Bilirubin AST Ammonia Lactate Dehydrogenase NT-Pro-B Natriuret Pep Total Protein Albumin Lipase Vitamin B12 Urine WBC (Auto) Urine Creatinine Ur Creatinine 24 Hour Fluid Glucose Fluid Total Protein Digoxin Crossmatch 12/11/17 12/11/17 12/11/17 06:46 07:26 09:42 RBC Hgb Hct MCV MCH MCHC RDW Plt Count Lymph % (Auto) Bibb % (Auto) Baso % (Auto) Lymph # Bibb # Baso # Seg Neutrophils % Seg Neuts % (Manual) Lymphocytes % (Manual) Monocytes % (Manual) Eosinophils % (Manual) Basophils % (Manual) Lymphocytes # (Manual) Monocytes # (Manual) Eosinophils # (Manual) Basophils # (Manual) PT INR APTT Fibrinogen D-Dimer POC ABG pH POC ABG pCO2 POC ABG pO2 Sodium Potassium Chloride Carbon Dioxide BUN Creatinine Glucose POC Glucose Lactic Acid 2.70 H* 2.80 H* 2.90 H* Calcium Phosphorus Magnesium TIBC Ferritin Total Bilirubin Direct Bilirubin AST Ammonia Lactate Dehydrogenase NT-Pro-B Natriuret Pep Total Protein Albumin Lipase Vitamin B12 Urine WBC (Auto) Urine Creatinine Ur Creatinine 24 Hour Fluid Glucose Fluid Total Protein Digoxin Crossmatch 12/11/17 12/11/17 12/11/17 13:12 14:06 23:14 RBC Hgb Hct MCV MCH MCHC RDW Plt Count Lymph % (Auto) Bibb % (Auto) Baso % (Auto) Lymph # Bibb # Baso # Seg Neutrophils % Seg Neuts % (Manual) Lymphocytes % (Manual) Monocytes % (Manual) Eosinophils % (Manual) Basophils % (Manual) Lymphocytes # (Manual) Monocytes # (Manual) Eosinophils # (Manual) Basophils # (Manual) PT INR APTT Fibrinogen D-Dimer POC ABG pH POC ABG pCO2 POC ABG pO2 Sodium Potassium Chloride Carbon Dioxide BUN Creatinine Glucose POC Glucose Lactic Acid 3.10 H* 3.10 H* 3.70 H* Calcium Phosphorus Magnesium TIBC Ferritin Total Bilirubin Direct Bilirubin AST Ammonia Lactate Dehydrogenase NT-Pro-B Natriuret Pep Total Protein Albumin Lipase Vitamin B12 Urine WBC (Auto) Urine Creatinine Ur Creatinine 24 Hour Fluid Glucose Fluid Total Protein Digoxin Crossmatch 12/11/17 12/12/17 12/12/17 23:23 03:41 03:41 RBC 2.17 L Hgb 7.0 L Hct 19.9 L* MCV MCH 33 H MCHC 35 H RDW 17.7 H Plt Count 62 L Lymph % (Auto) Bibb % (Auto) Baso % (Auto) Lymph # Bibb # Baso # Seg Neutrophils % Seg Neuts % (Manual) 91.0 H Lymphocytes % (Manual) 3.0 L Monocytes % (Manual) Eosinophils % (Manual) Basophils % (Manual) Lymphocytes # (Manual) 0.2 L Monocytes # (Manual) Eosinophils # (Manual) Basophils # (Manual) PT INR APTT Fibrinogen D-Dimer POC ABG pH POC ABG pCO2 POC ABG pO2 Sodium Potassium 5.4 H Chloride Carbon Dioxide 12 L BUN 47 H Creatinine 4.5 H Glucose 103 H POC Glucose Lactic Acid Calcium 8.0 L Phosphorus Magnesium TIBC Ferritin Total Bilirubin 3.60 H Direct Bilirubin AST 58 H Ammonia Lactate Dehydrogenase NT-Pro-B Natriuret Pep Total Protein 5.9 L Albumin 2.5 L Lipase Vitamin B12 Urine WBC (Auto) Urine Creatinine Ur Creatinine 24 Hour Fluid Glucose Fluid Total Protein Digoxin Crossmatch See Detail 12/12/17 12/12/17 12/12/17 07:00 09:13 17:55 RBC 2.06 L Hgb 6.6 L Hct 18.6 L* MCV MCH MCHC 36 H RDW 17.8 H Plt Count 77 L Lymph % (Auto) Bibb % (Auto) Baso % (Auto) Lymph # Bibb # Baso # Seg Neutrophils % Seg Neuts % (Manual) Lymphocytes % (Manual) Monocytes % (Manual) Eosinophils % (Manual) Basophils % (Manual) Lymphocytes # (Manual) Monocytes # (Manual) Eosinophils # (Manual) Basophils # (Manual) PT INR APTT Fibrinogen D-Dimer POC ABG pH 7.452 H POC ABG pCO2 22.2 L POC ABG pO2 75 L Sodium Potassium Chloride Carbon Dioxide BUN Creatinine Glucose POC Glucose 119 H Lactic Acid Calcium Phosphorus Magnesium TIBC Ferritin Total Bilirubin Direct Bilirubin AST Ammonia Lactate Dehydrogenase NT-Pro-B Natriuret Pep Total Protein Albumin Lipase Vitamin B12 Urine WBC (Auto) Urine Creatinine Ur Creatinine 24 Hour Fluid Glucose Fluid Total Protein Digoxin Crossmatch 12/12/17 12/12/17 12/12/17 19:50 19:50 19:50 RBC 2.40 L Hgb 7.8 L Hct 21.3 L MCV MCH 33 H MCHC 37 H RDW 16.1 H Plt Count 99 L Lymph % (Auto) Bibb % (Auto) Baso % (Auto) Lymph # Bibb # Baso # Seg Neutrophils % Seg Neuts % (Manual) 87.0 H Lymphocytes % (Manual) 5.0 L Monocytes % (Manual) Eosinophils % (Manual) Basophils % (Manual) Lymphocytes # (Manual) 0.3 L Monocytes # (Manual) Eosinophils # (Manual) Basophils # (Manual) PT 21.9 H INR 1.79 H APTT 41.5 H Fibrinogen 128 L D-Dimer 1215.06 H POC ABG pH POC ABG pCO2 POC ABG pO2 Sodium Potassium Chloride Carbon Dioxide BUN Creatinine Glucose POC Glucose Lactic Acid Calcium Phosphorus Magnesium TIBC Ferritin Total Bilirubin 4.10 H Direct Bilirubin 1.6 H AST Ammonia Lactate Dehydrogenase NT-Pro-B Natriuret Pep Total Protein Albumin Lipase Vitamin B12 Urine WBC (Auto) Urine Creatinine Ur Creatinine 24 Hour Fluid Glucose Fluid Total Protein Digoxin Crossmatch 12/12/17 12/12/17 12/12/17 19:50 19:50 23:46 RBC Hgb Hct MCV MCH MCHC RDW Plt Count Lymph % (Auto) Bibb % (Auto) Baso % (Auto) Lymph # Bibb # Baso # Seg Neutrophils % Seg Neuts % (Manual) Lymphocytes % (Manual) Monocytes % (Manual) Eosinophils % (Manual) Basophils % (Manual) Lymphocytes # (Manual) Monocytes # (Manual) Eosinophils # (Manual) Basophils # (Manual) PT INR APTT Fibrinogen D-Dimer POC ABG pH POC ABG pCO2 POC ABG pO2 Sodium Potassium Chloride Carbon Dioxide BUN Creatinine Glucose POC Glucose 110 H Lactic Acid Calcium Phosphorus Magnesium TIBC Ferritin Total Bilirubin Direct Bilirubin AST Ammonia Lactate Dehydrogenase 213 H NT-Pro-B Natriuret Pep Total Protein Albumin Lipase Vitamin B12 1465 H Urine WBC (Auto) Urine Creatinine Ur Creatinine 24 Hour Fluid Glucose Fluid Total Protein Digoxin Crossmatch 12/13/17 12/13/17 12/13/17 04:00 04:00 05:12 RBC 2.32 L Hgb 7.4 L Hct 20.8 L MCV MCH MCHC 36 H RDW 16.1 H Plt Count 134 L Lymph % (Auto) 13.1 L Bibb % (Auto) 7.9 H Baso % (Auto) Lymph # 0.8 L Bibb # Baso # Seg Neutrophils % 76.3 H Seg Neuts % (Manual) Lymphocytes % (Manual) Monocytes % (Manual) Eosinophils % (Manual) Basophils % (Manual) Lymphocytes # (Manual) Monocytes # (Manual) Eosinophils # (Manual) Basophils # (Manual) PT INR APTT Fibrinogen D-Dimer POC ABG pH POC ABG pCO2 POC ABG pO2 Sodium Potassium Chloride Carbon Dioxide 21 L D BUN 48 H Creatinine 4.6 H Glucose 104 H POC Glucose 134 H Lactic Acid Calcium 8.1 L Phosphorus Magnesium TIBC Ferritin Total Bilirubin 4.70 H Direct Bilirubin AST 43 H Ammonia Lactate Dehydrogenase NT-Pro-B Natriuret Pep Total Protein 5.8 L Albumin 3.1 L Lipase Vitamin B12 Urine WBC (Auto) Urine Creatinine Ur Creatinine 24 Hour Fluid Glucose Fluid Total Protein Digoxin Crossmatch 12/13/17 12/13/17 12/13/17 08:45 12:25 14:03 RBC Hgb Hct MCV MCH MCHC RDW Plt Count Lymph % (Auto) Bibb % (Auto) Baso % (Auto) Lymph # Bibb # Baso # Seg Neutrophils % Seg Neuts % (Manual) Lymphocytes % (Manual) Monocytes % (Manual) Eosinophils % (Manual) Basophils % (Manual) Lymphocytes # (Manual) Monocytes # (Manual) Eosinophils # (Manual) Basophils # (Manual) PT 20.5 H INR 1.65 H APTT Fibrinogen D-Dimer POC ABG pH POC ABG pCO2 POC ABG pO2 Sodium Potassium Chloride Carbon Dioxide BUN Creatinine Glucose POC Glucose 112 H Lactic Acid 3.70 H* Calcium Phosphorus Magnesium TIBC Ferritin Total Bilirubin Direct Bilirubin AST Ammonia Lactate Dehydrogenase NT-Pro-B Natriuret Pep Total Protein Albumin Lipase Vitamin B12 Urine WBC (Auto) Urine Creatinine Ur Creatinine 24 Hour Fluid Glucose Fluid Total Protein Digoxin Crossmatch 12/13/17 12/13/17 12/13/17 14:03 18:52 21:09 RBC Hgb Hct MCV MCH MCHC RDW Plt Count Lymph % (Auto) Bibb % (Auto) Baso % (Auto) Lymph # Bibb # Baso # Seg Neutrophils % Seg Neuts % (Manual) Lymphocytes % (Manual) Monocytes % (Manual) Eosinophils % (Manual) Basophils % (Manual) Lymphocytes # (Manual) Monocytes # (Manual) Eosinophils # (Manual) Basophils # (Manual) PT INR APTT Fibrinogen D-Dimer POC ABG pH POC ABG pCO2 POC ABG pO2 Sodium Potassium Chloride Carbon Dioxide BUN Creatinine Glucose POC Glucose 110 H Lactic Acid 4.00 H* Calcium Phosphorus Magnesium TIBC Ferritin Total Bilirubin Direct Bilirubin AST Ammonia 87.0 H Lactate Dehydrogenase NT-Pro-B Natriuret Pep Total Protein Albumin Lipase Vitamin B12 Urine WBC (Auto) Urine Creatinine Ur Creatinine 24 Hour Fluid Glucose Fluid Total Protein Digoxin Crossmatch 12/14/17 12/14/17 12/14/17 00:25 03:30 03:30 RBC 2.29 L Hgb 7.3 L Hct 20.7 L MCV MCH MCHC 35 H RDW 16.2 H Plt Count 84 L Lymph % (Auto) 12.8 L Bibb % (Auto) 8.3 H Baso % (Auto) Lymph # 0.6 L Bibb # Baso # Seg Neutrophils % 77.2 H Seg Neuts % (Manual) Lymphocytes % (Manual) Monocytes % (Manual) Eosinophils % (Manual) Basophils % (Manual) Lymphocytes # (Manual) Monocytes # (Manual) Eosinophils # (Manual) Basophils # (Manual) PT INR APTT Fibrinogen D-Dimer POC ABG pH POC ABG pCO2 POC ABG pO2 Sodium Potassium Chloride 96.1 L Carbon Dioxide BUN 48 H Creatinine 4.6 H Glucose 125 H POC Glucose 131 H Lactic Acid Calcium 7.9 L Phosphorus Magnesium TIBC Ferritin Total Bilirubin 4.70 H Direct Bilirubin AST 45 H Ammonia Lactate Dehydrogenase NT-Pro-B Natriuret Pep Total Protein 6.1 L Albumin 3.4 L Lipase Vitamin B12 Urine WBC (Auto) Urine Creatinine Ur Creatinine 24 Hour Fluid Glucose Fluid Total Protein Digoxin Crossmatch 12/14/17 12/14/17 12/14/17 05:31 12:26 12:55 RBC Hgb Hct MCV MCH MCHC RDW Plt Count Lymph % (Auto) Bibb % (Auto) Baso % (Auto) Lymph # Bibb # Baso # Seg Neutrophils % Seg Neuts % (Manual) Lymphocytes % (Manual) Monocytes % (Manual) Eosinophils % (Manual) Basophils % (Manual) Lymphocytes # (Manual) Monocytes # (Manual) Eosinophils # (Manual) Basophils # (Manual) PT INR APTT Fibrinogen D-Dimer POC ABG pH POC ABG pCO2 POC ABG pO2 Sodium Potassium Chloride Carbon Dioxide BUN Creatinine Glucose POC Glucose 125 H 117 H Lactic Acid 3.40 H* Calcium Phosphorus Magnesium TIBC Ferritin Total Bilirubin Direct Bilirubin AST Ammonia Lactate Dehydrogenase NT-Pro-B Natriuret Pep Total Protein Albumin Lipase Vitamin B12 Urine WBC (Auto) Urine Creatinine Ur Creatinine 24 Hour Fluid Glucose Fluid Total Protein Digoxin Crossmatch 12/14/17 12/14/17 12/14/17 15:26 17:26 18:07 RBC Hgb Hct MCV MCH MCHC RDW Plt Count Lymph % (Auto) Bibb % (Auto) Baso % (Auto) Lymph # Bibb # Baso # Seg Neutrophils % Seg Neuts % (Manual) Lymphocytes % (Manual) Monocytes % (Manual) Eosinophils % (Manual) Basophils % (Manual) Lymphocytes # (Manual) Monocytes # (Manual) Eosinophils # (Manual) Basophils # (Manual) PT INR APTT Fibrinogen D-Dimer POC ABG pH POC ABG pCO2 POC ABG pO2 Sodium Potassium Chloride Carbon Dioxide BUN Creatinine Glucose POC Glucose 143 H Lactic Acid 4.00 H* 3.90 H* Calcium Phosphorus Magnesium TIBC Ferritin Total Bilirubin Direct Bilirubin AST Ammonia Lactate Dehydrogenase NT-Pro-B Natriuret Pep Total Protein Albumin Lipase Vitamin B12 Urine WBC (Auto) Urine Creatinine Ur Creatinine 24 Hour Fluid Glucose Fluid Total Protein Digoxin Crossmatch 12/14/17 12/15/17 12/15/17 Unknown 00:08 04:51 RBC 2.27 L Hgb 7.3 L Hct 20.7 L MCV MCH MCHC 35 H RDW 16.1 H Plt Count 92 L Lymph % (Auto) 12.5 L Bibb % (Auto) 10.4 H Baso % (Auto) Lymph # 0.6 L Bibb # Baso # Seg Neutrophils % 74.7 H Seg Neuts % (Manual) Lymphocytes % (Manual) Monocytes % (Manual) Eosinophils % (Manual) Basophils % (Manual) Lymphocytes # (Manual) Monocytes # (Manual) Eosinophils # (Manual) Basophils # (Manual) PT INR APTT Fibrinogen D-Dimer POC ABG pH POC ABG pCO2 POC ABG pO2 Sodium Potassium Chloride Carbon Dioxide BUN Creatinine Glucose POC Glucose 124 H Lactic Acid Calcium Phosphorus Magnesium TIBC Ferritin Total Bilirubin Direct Bilirubin AST Ammonia Lactate Dehydrogenase NT-Pro-B Natriuret Pep Total Protein Albumin Lipase Vitamin B12 Urine WBC (Auto) Urine Creatinine 122.5 H Ur Creatinine 24 Hour 0.3 L Fluid Glucose Fluid Total Protein Digoxin Crossmatch 12/15/17 12/15/17 12/15/17 04:51 04:51 05:56 RBC Hgb Hct MCV MCH MCHC RDW Plt Count Lymph % (Auto) Bibb % (Auto) Baso % (Auto) Lymph # Bibb # Baso # Seg Neutrophils % Seg Neuts % (Manual) Lymphocytes % (Manual) Monocytes % (Manual) Eosinophils % (Manual) Basophils % (Manual) Lymphocytes # (Manual) Monocytes # (Manual) Eosinophils # (Manual) Basophils # (Manual) PT INR APTT Fibrinogen D-Dimer POC ABG pH POC ABG pCO2 POC ABG pO2 Sodium Potassium 3.5 L Chloride 92.6 L Carbon Dioxide BUN 50 H Creatinine 4.8 H Glucose 141 H POC Glucose 143 H Lactic Acid Calcium 7.9 L Phosphorus Magnesium TIBC Ferritin Total Bilirubin 3.60 H Direct Bilirubin AST 44 H Ammonia 24.0 L Lactate Dehydrogenase NT-Pro-B Natriuret Pep Total Protein 6.1 L Albumin 3.8 L Lipase Vitamin B12 Urine WBC (Auto) Urine Creatinine Ur Creatinine 24 Hour Fluid Glucose Fluid Total Protein Digoxin Crossmatch 12/15/17 12/15/17 12/16/17 12:17 23:10 07:04 RBC Hgb Hct MCV MCH MCHC RDW Plt Count Lymph % (Auto) Bibb % (Auto) Baso % (Auto) Lymph # Bibb # Baso # Seg Neutrophils % Seg Neuts % (Manual) Lymphocytes % (Manual) Monocytes % (Manual) Eosinophils % (Manual) Basophils % (Manual) Lymphocytes # (Manual) Monocytes # (Manual) Eosinophils # (Manual) Basophils # (Manual) PT INR APTT Fibrinogen D-Dimer POC ABG pH POC ABG pCO2 POC ABG pO2 Sodium Potassium Chloride Carbon Dioxide BUN Creatinine Glucose POC Glucose 127 H 157 H 147 H Lactic Acid Calcium Phosphorus Magnesium TIBC Ferritin Total Bilirubin Direct Bilirubin AST Ammonia Lactate Dehydrogenase NT-Pro-B Natriuret Pep Total Protein Albumin Lipase Vitamin B12 Urine WBC (Auto) Urine Creatinine Ur Creatinine 24 Hour Fluid Glucose Fluid Total Protein Digoxin Crossmatch 12/16/17 12/16/17 12/16/17 11:35 12:37 12:37 RBC 2.21 L Hgb 6.9 L Hct 20.2 L MCV MCH MCHC RDW 16.2 H Plt Count 50 L Lymph % (Auto) Bibb % (Auto) 9.7 H Baso % (Auto) Lymph # 0.7 L Bibb # Baso # Seg Neutrophils % 73.1 H Seg Neuts % (Manual) Lymphocytes % (Manual) Monocytes % (Manual) Eosinophils % (Manual) Basophils % (Manual) Lymphocytes # (Manual) Monocytes # (Manual) Eosinophils # (Manual) Basophils # (Manual) PT INR APTT Fibrinogen D-Dimer POC ABG pH POC ABG pCO2 POC ABG pO2 Sodium Potassium Chloride 88.2 L Carbon Dioxide BUN 52 H Creatinine 5.5 H Glucose 107 H POC Glucose 134 H Lactic Acid Calcium 7.8 L Phosphorus Magnesium TIBC Ferritin Total Bilirubin 2.60 H Direct Bilirubin AST 49 H Ammonia Lactate Dehydrogenase NT-Pro-B Natriuret Pep Total Protein Albumin 3.6 L Lipase Vitamin B12 Urine WBC (Auto) Urine Creatinine Ur Creatinine 24 Hour Fluid Glucose Fluid Total Protein Digoxin Crossmatch 12/16/17 12/16/17 12/16/17 18:06 20:45 23:34 RBC Hgb Hct MCV MCH MCHC RDW Plt Count Lymph % (Auto) Bibb % (Auto) Baso % (Auto) Lymph # Bibb # Baso # Seg Neutrophils % Seg Neuts % (Manual) Lymphocytes % (Manual) Monocytes % (Manual) Eosinophils % (Manual) Basophils % (Manual) Lymphocytes # (Manual) Monocytes # (Manual) Eosinophils # (Manual) Basophils # (Manual) PT INR APTT Fibrinogen D-Dimer POC ABG pH POC ABG pCO2 POC ABG pO2 Sodium Potassium Chloride Carbon Dioxide BUN Creatinine Glucose POC Glucose 133 H 139 H Lactic Acid Calcium Phosphorus Magnesium TIBC Ferritin Total Bilirubin Direct Bilirubin AST Ammonia Lactate Dehydrogenase NT-Pro-B Natriuret Pep Total Protein Albumin Lipase Vitamin B12 Urine WBC (Auto) Urine Creatinine Ur Creatinine 24 Hour Fluid Glucose Fluid Total Protein Digoxin Crossmatch See Detail 12/17/17 12/17/17 12/17/17 05:27 05:27 06:11 RBC 2.10 L Hgb 6.6 L Hct 19.2 L* MCV MCH MCHC 35 H RDW 16.5 H Plt Count 65 L Lymph % (Auto) 12.6 L Bibb % (Auto) 9.6 H Baso % (Auto) Lymph # 0.7 L Bibb # Baso # Seg Neutrophils % 75.8 H Seg Neuts % (Manual) Lymphocytes % (Manual) Monocytes % (Manual) Eosinophils % (Manual) Basophils % (Manual) Lymphocytes # (Manual) Monocytes # (Manual) Eosinophils # (Manual) Basophils # (Manual) PT INR APTT Fibrinogen D-Dimer POC ABG pH POC ABG pCO2 POC ABG pO2 Sodium 135 L Potassium 3.4 L Chloride 84.9 L Carbon Dioxide 33 H BUN 53 H Creatinine 5.9 H Glucose POC Glucose 110 H Lactic Acid Calcium 7.7 L Phosphorus Magnesium TIBC Ferritin Total Bilirubin 2.70 H Direct Bilirubin AST 50 H Ammonia Lactate Dehydrogenase NT-Pro-B Natriuret Pep Total Protein 6.2 L Albumin 3.7 L Lipase Vitamin B12 Urine WBC (Auto) Urine Creatinine Ur Creatinine 24 Hour Fluid Glucose Fluid Total Protein Digoxin Crossmatch 12/17/17 12/18/17 12/18/17 09:34 00:05 05:21 RBC 3.35 L Hgb 10.3 L D Hct 30.4 L D MCV MCH MCHC RDW 16.2 H Plt Count 57 L Lymph % (Auto) 8.0 L Bibb % (Auto) 10.9 H Baso % (Auto) Lymph # 0.6 L Bibb # Baso # Seg Neutrophils % 80.2 H Seg Neuts % (Manual) Lymphocytes % (Manual) Monocytes % (Manual) Eosinophils % (Manual) Basophils % (Manual) Lymphocytes # (Manual) Monocytes # (Manual) Eosinophils # (Manual) Basophils # (Manual) PT 23.9 H INR 1.99 H APTT Fibrinogen D-Dimer POC ABG pH POC ABG pCO2 POC ABG pO2 Sodium Potassium Chloride Carbon Dioxide BUN Creatinine Glucose POC Glucose 132 H Lactic Acid Calcium Phosphorus Magnesium TIBC Ferritin Total Bilirubin Direct Bilirubin AST Ammonia Lactate Dehydrogenase NT-Pro-B Natriuret Pep Total Protein Albumin Lipase Vitamin B12 Urine WBC (Auto) Urine Creatinine Ur Creatinine 24 Hour Fluid Glucose Fluid Total Protein Digoxin Crossmatch 12/18/17 12/18/17 12/18/17 05:21 06:16 11:11 RBC Hgb Hct MCV MCH MCHC RDW Plt Count Lymph % (Auto) Bibb % (Auto) Baso % (Auto) Lymph # Bibb # Baso # Seg Neutrophils % Seg Neuts % (Manual) Lymphocytes % (Manual) Monocytes % (Manual) Eosinophils % (Manual) Basophils % (Manual) Lymphocytes # (Manual) Monocytes # (Manual) Eosinophils # (Manual) Basophils # (Manual) PT 34.7 H INR 3.17 H APTT Fibrinogen D-Dimer POC ABG pH POC ABG pCO2 POC ABG pO2 Sodium Potassium 3.5 L Chloride 87.1 L Carbon Dioxide BUN 35 H Creatinine 4.3 H Glucose 110 H POC Glucose 116 H Lactic Acid Calcium 8.1 L Phosphorus Magnesium TIBC Ferritin Total Bilirubin 5.10 H Direct Bilirubin AST 56 H Ammonia Lactate Dehydrogenase NT-Pro-B Natriuret Pep Total Protein Albumin Lipase Vitamin B12 Urine WBC (Auto) Urine Creatinine Ur Creatinine 24 Hour Fluid Glucose Fluid Total Protein Digoxin Crossmatch 12/18/17 12/18/17 12/18/17 13:10 17:52 22:04 RBC Hgb Hct MCV MCH MCHC RDW Plt Count Lymph % (Auto) Bibb % (Auto) Baso % (Auto) Lymph # Bibb # Baso # Seg Neutrophils % Seg Neuts % (Manual) Lymphocytes % (Manual) Monocytes % (Manual) Eosinophils % (Manual) Basophils % (Manual) Lymphocytes # (Manual) Monocytes # (Manual) Eosinophils # (Manual) Basophils # (Manual) PT 25.9 H INR 2.20 H APTT Fibrinogen D-Dimer POC ABG pH POC ABG pCO2 POC ABG pO2 Sodium Potassium Chloride Carbon Dioxide BUN Creatinine Glucose POC Glucose 114 H 108 H Lactic Acid Calcium Phosphorus Magnesium TIBC Ferritin Total Bilirubin Direct Bilirubin AST Ammonia Lactate Dehydrogenase NT-Pro-B Natriuret Pep Total Protein Albumin Lipase Vitamin B12 Urine WBC (Auto) Urine Creatinine Ur Creatinine 24 Hour Fluid Glucose Fluid Total Protein Digoxin Crossmatch 12/19/17 12/19/17 12/19/17 05:55 05:55 10:20 RBC 2.85 L Hgb 9.1 L Hct 25.7 L MCV MCH MCHC 35 H RDW 16.4 H Plt Count 61 L Lymph % (Auto) Bibb % (Auto) Baso % (Auto) Lymph # Bibb # Baso # Seg Neutrophils % Seg Neuts % (Manual) Lymphocytes % (Manual) Monocytes % (Manual) Eosinophils % (Manual) Basophils % (Manual) Lymphocytes # (Manual) Monocytes # (Manual) Eosinophils # (Manual) Basophils # (Manual) PT INR APTT Fibrinogen D-Dimer POC ABG pH POC ABG pCO2 POC ABG pO2 Sodium Potassium Chloride 94.5 L Carbon Dioxide BUN 27 H Creatinine 3.6 H Glucose POC Glucose 131 H Lactic Acid Calcium 8.2 L Phosphorus Magnesium TIBC Ferritin Total Bilirubin Direct Bilirubin AST Ammonia Lactate Dehydrogenase NT-Pro-B Natriuret Pep Total Protein Albumin Lipase Vitamin B12 Urine WBC (Auto) Urine Creatinine Ur Creatinine 24 Hour Fluid Glucose Fluid Total Protein Digoxin Crossmatch 12/19/17 12/21/17 12/21/17 11:46 05:26 05:26 RBC 2.60 L Hgb 8.4 L Hct 23.9 L MCV MCH MCHC 35 H RDW 16.2 H Plt Count 57 L Lymph % (Auto) 12.4 L Bibb % (Auto) 10.7 H Baso % (Auto) Lymph # Bibb # 1.0 H Baso # Seg Neutrophils % 74.8 H Seg Neuts % (Manual) Lymphocytes % (Manual) Monocytes % (Manual) Eosinophils % (Manual) Basophils % (Manual) Lymphocytes # (Manual) Monocytes # (Manual) Eosinophils # (Manual) Basophils # (Manual) PT 26.2 H INR 2.23 H APTT Fibrinogen D-Dimer POC ABG pH POC ABG pCO2 POC ABG pO2 Sodium Potassium Chloride Carbon Dioxide BUN Creatinine Glucose POC Glucose Lactic Acid Calcium Phosphorus Magnesium TIBC Ferritin Total Bilirubin Direct Bilirubin AST Ammonia Lactate Dehydrogenase NT-Pro-B Natriuret Pep Total Protein Albumin Lipase Vitamin B12 Urine WBC (Auto) Urine Creatinine Ur Creatinine 24 Hour Fluid Glucose Fluid Total Protein Digoxin 0.4 L Crossmatch 12/21/17 12/23/17 12/24/17 09:40 08:15 04:51 RBC 1.80 L Hgb 5.9 L* Hct 17.0 L* D MCV MCH 33 H MCHC 35 H RDW 16.5 H Plt Count 53 L Lymph % (Auto) Bibb % (Auto) Baso % (Auto) Lymph # Bibb # Baso # Seg Neutrophils % Seg Neuts % (Manual) Lymphocytes % (Manual) Monocytes % (Manual) Eosinophils % (Manual) Basophils % (Manual) Lymphocytes # (Manual) Monocytes # (Manual) Eosinophils # (Manual) Basophils # (Manual) PT 26.4 H 27.9 H INR 2.26 H 2.42 H APTT Fibrinogen D-Dimer POC ABG pH POC ABG pCO2 POC ABG pO2 Sodium Potassium Chloride Carbon Dioxide BUN Creatinine Glucose POC Glucose Lactic Acid Calcium Phosphorus Magnesium TIBC Ferritin Total Bilirubin Direct Bilirubin AST Ammonia Lactate Dehydrogenase NT-Pro-B Natriuret Pep Total Protein Albumin Lipase Vitamin B12 Urine WBC (Auto) Urine Creatinine Ur Creatinine 24 Hour Fluid Glucose Fluid Total Protein Digoxin Crossmatch 12/24/17 12/24/17 12/24/17 04:51 06:25 08:20 RBC Hgb Hct MCV MCH MCHC RDW Plt Count Lymph % (Auto) Bibb % (Auto) Baso % (Auto) Lymph # Bibb # Baso # Seg Neutrophils % Seg Neuts % (Manual) Lymphocytes % (Manual) Monocytes % (Manual) Eosinophils % (Manual) Basophils % (Manual) Lymphocytes # (Manual) Monocytes # (Manual) Eosinophils # (Manual) Basophils # (Manual) PT 40.8 H INR 3.87 H APTT Fibrinogen D-Dimer POC ABG pH POC ABG pCO2 POC ABG pO2 Sodium Potassium 3.5 L Chloride Carbon Dioxide BUN 21 H Creatinine 4.4 H Glucose POC Glucose Lactic Acid Calcium 8.1 L Phosphorus Magnesium TIBC Ferritin Total Bilirubin Direct Bilirubin AST Ammonia Lactate Dehydrogenase NT-Pro-B Natriuret Pep Total Protein Albumin Lipase Vitamin B12 Urine WBC (Auto) Urine Creatinine Ur Creatinine 24 Hour Fluid Glucose Fluid Total Protein Digoxin Crossmatch See Detail 12/24/17 12/24/17 12/25/17 19:21 19:21 05:27 RBC 2.31 L Hgb 7.3 L 7.4 L Hct 20.4 L 21.3 L MCV MCH MCHC 35 H RDW 15.9 H Plt Count 39 L Lymph % (Auto) Bibb % (Auto) 10.8 H Baso % (Auto) Lymph # 0.9 L Bibb # Baso # Seg Neutrophils % 71.9 H Seg Neuts % (Manual) Lymphocytes % (Manual) Monocytes % (Manual) Eosinophils % (Manual) Basophils % (Manual) Lymphocytes # (Manual) Monocytes # (Manual) Eosinophils # (Manual) Basophils # (Manual) PT 21.3 H INR 1.73 H APTT Fibrinogen D-Dimer POC ABG pH POC ABG pCO2 POC ABG pO2 Sodium Potassium Chloride Carbon Dioxide BUN Creatinine Glucose POC Glucose Lactic Acid Calcium Phosphorus Magnesium TIBC Ferritin Total Bilirubin Direct Bilirubin AST Ammonia Lactate Dehydrogenase NT-Pro-B Natriuret Pep Total Protein Albumin Lipase Vitamin B12 Urine WBC (Auto) Urine Creatinine Ur Creatinine 24 Hour Fluid Glucose Fluid Total Protein Digoxin Crossmatch 12/25/17 12/25/17 12/25/17 05:27 05:27 12:24 RBC Hgb Hct MCV MCH MCHC RDW Plt Count Lymph % (Auto) Bibb % (Auto) Baso % (Auto) Lymph # Bibb # Baso # Seg Neutrophils % Seg Neuts % (Manual) Lymphocytes % (Manual) Monocytes % (Manual) Eosinophils % (Manual) Basophils % (Manual) Lymphocytes # (Manual) Monocytes # (Manual) Eosinophils # (Manual) Basophils # (Manual) PT 22.1 H INR 1.81 H APTT Fibrinogen D-Dimer POC ABG pH POC ABG pCO2 POC ABG pO2 Sodium Potassium 3.5 L Chloride 96.7 L Carbon Dioxide BUN Creatinine 3.2 H Glucose POC Glucose 140 H Lactic Acid Calcium 8.1 L Phosphorus Magnesium TIBC Ferritin Total Bilirubin Direct Bilirubin AST Ammonia Lactate Dehydrogenase NT-Pro-B Natriuret Pep Total Protein Albumin Lipase Vitamin B12 Urine WBC (Auto) Urine Creatinine Ur Creatinine 24 Hour Fluid Glucose Fluid Total Protein Digoxin Crossmatch 12/26/17 12/26/17 12/27/17 05:59 05:59 06:34 RBC 2.01 L 2.52 L Hgb 6.6 L 8.2 L Hct 18.6 L* 23.2 L MCV MCH 33 H MCHC 35 H 35 H RDW 16.6 H 15.3 H Plt Count 45 L 39 L Lymph % (Auto) 11.6 L Bibb % (Auto) 10.3 H 11.2 H Baso % (Auto) Lymph # 1.0 L 0.7 L Bibb # Baso # Seg Neutrophils % 72.2 H 75.4 H Seg Neuts % (Manual) Lymphocytes % (Manual) Monocytes % (Manual) Eosinophils % (Manual) Basophils % (Manual) Lymphocytes # (Manual) Monocytes # (Manual) Eosinophils # (Manual) Basophils # (Manual) PT INR APTT Fibrinogen D-Dimer POC ABG pH POC ABG pCO2 POC ABG pO2 Sodium Potassium 3.3 L Chloride Carbon Dioxide BUN Creatinine 3.8 H Glucose 110 H POC Glucose Lactic Acid Calcium Phosphorus 2.40 L Magnesium 1.40 L TIBC Ferritin Total Bilirubin 7.10 H Direct Bilirubin AST 73 H Ammonia Lactate Dehydrogenase NT-Pro-B Natriuret Pep Total Protein Albumin 3.5 L Lipase Vitamin B12 Urine WBC (Auto) Urine Creatinine Ur Creatinine 24 Hour Fluid Glucose Fluid Total Protein Digoxin Crossmatch 0812/27/17 12/27/17 06:34 06:34 06:34 RBC Hgb Hct MCV MCH MCHC RDW Plt Count Lymph % (Auto) Bibb % (Auto) Baso % (Auto) Lymph # Bibb # Baso # Seg Neutrophils % Seg Neuts % (Manual) Lymphocytes % (Manual) Monocytes % (Manual) Eosinophils % (Manual) Basophils % (Manual) Lymphocytes # (Manual) Monocytes # (Manual) Eosinophils # (Manual) Basophils # (Manual) PT INR APTT Fibrinogen D-Dimer POC ABG pH POC ABG pCO2 POC ABG pO2 Sodium Potassium 3.3 L Chloride 95.4 L Carbon Dioxide BUN Creatinine 2.6 H Glucose 112 H POC Glucose Lactic Acid Calcium 8.1 L Phosphorus Magnesium TIBC 77 L Ferritin > 2000.0 H Total Bilirubin 8.00 H Direct Bilirubin AST 89 H Ammonia Lactate Dehydrogenase 302 H NT-Pro-B Natriuret Pep Total Protein Albumin 3.7 L Lipase Vitamin B12 Urine WBC (Auto) Urine Creatinine Ur Creatinine 24 Hour Fluid Glucose Fluid Total Protein Digoxin Crossmatch 12/28/17 12/28/17 12/29/17 06:24 09:00 00:30 RBC 2.25 L Hgb 7.5 L Hct 21.1 L MCV MCH 33 H MCHC 35 H RDW 16.2 H Plt Count 78 L D Lymph % (Auto) 12.5 L Bibb % (Auto) 12.3 H Baso % (Auto) Lymph # 0.9 L Bibb # 0.9 H Baso # Seg Neutrophils % 73.3 H Seg Neuts % (Manual) Lymphocytes % (Manual) Monocytes % (Manual) Eosinophils % (Manual) Basophils % (Manual) Lymphocytes # (Manual) Monocytes # (Manual) Eosinophils # (Manual) Basophils # (Manual) PT 23.7 H INR 1.97 H APTT 53.1 H Fibrinogen D-Dimer POC ABG pH POC ABG pCO2 POC ABG pO2 Sodium Potassium Chloride Carbon Dioxide BUN Creatinine Glucose POC Glucose 148 H Lactic Acid Calcium Phosphorus Magnesium TIBC Ferritin Total Bilirubin Direct Bilirubin AST Ammonia Lactate Dehydrogenase NT-Pro-B Natriuret Pep Total Protein Albumin Lipase Vitamin B12 Urine WBC (Auto) Urine Creatinine Ur Creatinine 24 Hour Fluid Glucose Fluid Total Protein Digoxin Crossmatch 12/29/17 12/29/17 12/29/17 00:34 03:59 03:59 RBC 2.19 L Hgb 7.2 L Hct 20.7 L MCV 95 H MCH 33 H MCHC 35 H RDW 16.9 H Plt Count 75 L Lymph % (Auto) Bibb % (Auto) 10.8 H Baso % (Auto) Lymph # Bibb # Baso # Seg Neutrophils % 70.8 H Seg Neuts % (Manual) Lymphocytes % (Manual) Monocytes % (Manual) Eosinophils % (Manual) Basophils % (Manual) Lymphocytes # (Manual) Monocytes # (Manual) Eosinophils # (Manual) Basophils # (Manual) PT 25.7 H INR 2.18 H APTT Fibrinogen D-Dimer POC ABG pH POC ABG pCO2 POC ABG pO2 Sodium Potassium Chloride Carbon Dioxide BUN Creatinine 2.3 H Glucose 111 H POC Glucose Lactic Acid Calcium Phosphorus Magnesium TIBC Ferritin Total Bilirubin 8.20 H Direct Bilirubin AST 66 H Ammonia Lactate Dehydrogenase NT-Pro-B Natriuret Pep Total Protein Albumin 3.5 L Lipase Vitamin B12 Urine WBC (Auto) Urine Creatinine Ur Creatinine 24 Hour Fluid Glucose Fluid Total Protein Digoxin Crossmatch 12/29/17 12/30/17 12/30/17 07:35 07:51 08:27 RBC 1.97 L Hgb 6.7 L Hct 18.8 L* MCV 96 H MCH 34 H MCHC 36 H RDW 17.6 H Plt Count 76 L Lymph % (Auto) Bibb % (Auto) 10.5 H Baso % (Auto) Lymph # 1.0 L Bibb # Baso # Seg Neutrophils % 72.4 H Seg Neuts % (Manual) Lymphocytes % (Manual) Monocytes % (Manual) Eosinophils % (Manual) Basophils % (Manual) Lymphocytes # (Manual) Monocytes # (Manual) Eosinophils # (Manual) Basophils # (Manual) PT INR APTT Fibrinogen D-Dimer POC ABG pH POC ABG pCO2 POC ABG pO2 Sodium Potassium Chloride Carbon Dioxide BUN Creatinine Glucose POC Glucose 113 H Lactic Acid Calcium Phosphorus Magnesium 1.50 L TIBC Ferritin Total Bilirubin Direct Bilirubin AST Ammonia Lactate Dehydrogenase NT-Pro-B Natriuret Pep Total Protein Albumin Lipase Vitamin B12 Urine WBC (Auto) Urine Creatinine Ur Creatinine 24 Hour Fluid Glucose Fluid Total Protein Digoxin Crossmatch 12/30/17 12/31/17 12/31/17 08:44 12:59 12:59 RBC 2.49 L Hgb 8.3 L Hct 23.0 L MCV MCH 33 H MCHC 36 H RDW 17.5 H Plt Count 69 L Lymph % (Auto) Bibb % (Auto) 13.0 H Baso % (Auto) 1.9 H Lymph # 1.1 L Bibb # 0.9 H Baso # Seg Neutrophils % Seg Neuts % (Manual) Lymphocytes % (Manual) Monocytes % (Manual) Eosinophils % (Manual) Basophils % (Manual) Lymphocytes # (Manual) Monocytes # (Manual) Eosinophils # (Manual) Basophils # (Manual) PT INR APTT Fibrinogen D-Dimer POC ABG pH POC ABG pCO2 POC ABG pO2 Sodium Potassium Chloride Carbon Dioxide BUN 21 H Creatinine 3.8 H D Glucose 114 H POC Glucose Lactic Acid Calcium Phosphorus Magnesium TIBC Ferritin Total Bilirubin 8.30 H Direct Bilirubin AST 46 H Ammonia Lactate Dehydrogenase NT-Pro-B Natriuret Pep Total Protein Albumin Lipase Vitamin B12 Urine WBC (Auto) Urine Creatinine Ur Creatinine 24 Hour Fluid Glucose Fluid Total Protein Digoxin Crossmatch See Detail 12/31/17 12/31/17 01/01/18 12:59 Unknown 05:27 RBC 2.69 L Hgb 9.1 L Hct 25.1 L MCV MCH 34 H MCHC 36 H RDW 17.5 H Plt Count 64 L Lymph % (Auto) 12.5 L Bibb % (Auto) 14.4 H Baso % (Auto) Lymph # 0.9 L Bibb # 1.1 H Baso # Seg Neutrophils % 70.4 H Seg Neuts % (Manual) Lymphocytes % (Manual) Monocytes % (Manual) Eosinophils % (Manual) Basophils % (Manual) Lymphocytes # (Manual) Monocytes # (Manual) Eosinophils # (Manual) Basophils # (Manual) PT 19.7 H INR 1.57 H APTT Fibrinogen D-Dimer POC ABG pH POC ABG pCO2 POC ABG pO2 Sodium Potassium Chloride Carbon Dioxide BUN Creatinine Glucose POC Glucose Lactic Acid Calcium Phosphorus Magnesium TIBC Ferritin Total Bilirubin Direct Bilirubin AST Ammonia Lactate Dehydrogenase NT-Pro-B Natriuret Pep Total Protein Albumin Lipase Vitamin B12 Urine WBC (Auto) Urine Creatinine Ur Creatinine 24 Hour Fluid Glucose 124 H Fluid Total Protein < 3.0 L Digoxin Crossmatch 01/01/18 01/01/18 01/03/18 05:27 05:27 06:24 RBC 2.62 L Hgb 8.7 L Hct 25.6 L MCV 98 H MCH 33 H MCHC RDW 19.4 H Plt Count 55 L Lymph % (Auto) Bibb % (Auto) 10.9 H Baso % (Auto) 2.7 H Lymph # 1.1 L Bibb # 0.9 H Baso # 0.2 H Seg Neutrophils % Seg Neuts % (Manual) Lymphocytes % (Manual) Monocytes % (Manual) Eosinophils % (Manual) Basophils % (Manual) Lymphocytes # (Manual) Monocytes # (Manual) Eosinophils # (Manual) Basophils # (Manual) PT 22.1 H INR 1.81 H APTT Fibrinogen D-Dimer POC ABG pH POC ABG pCO2 POC ABG pO2 Sodium Potassium Chloride Carbon Dioxide BUN Creatinine 2.8 H Glucose POC Glucose Lactic Acid Calcium Phosphorus Magnesium TIBC Ferritin Total Bilirubin 9.20 H Direct Bilirubin AST 49 H Ammonia Lactate Dehydrogenase NT-Pro-B Natriuret Pep Total Protein Albumin 3.8 L Lipase Vitamin B12 Urine WBC (Auto) Urine Creatinine Ur Creatinine 24 Hour Fluid Glucose Fluid Total Protein Digoxin Crossmatch 01/03/18 01/03/18 01/05/18 06:24 06:24 04:47 RBC 2.75 L Hgb 9.2 L Hct 27.3 L MCV 99 H MCH 34 H MCHC RDW 23.5 H Plt Count 55 L Lymph % (Auto) Bibb % (Auto) 14.3 H Baso % (Auto) 2.3 H Lymph # Bibb # 1.0 H Baso # 0.2 H Seg Neutrophils % Seg Neuts % (Manual) Lymphocytes % (Manual) Monocytes % (Manual) Eosinophils % (Manual) Basophils % (Manual) Lymphocytes # (Manual) Monocytes # (Manual) Eosinophils # (Manual) Basophils # (Manual) PT 24.1 H INR 2.01 H APTT Fibrinogen D-Dimer POC ABG pH POC ABG pCO2 POC ABG pO2 Sodium Potassium Chloride Carbon Dioxide BUN Creatinine Glucose POC Glucose Lactic Acid Calcium Phosphorus Magnesium TIBC Ferritin Total Bilirubin 9.00 H Direct Bilirubin 2.7 H AST 50 H Ammonia Lactate Dehydrogenase NT-Pro-B Natriuret Pep Total Protein Albumin 3.6 L Lipase Vitamin B12 Urine WBC (Auto) Urine Creatinine Ur Creatinine 24 Hour Fluid Glucose Fluid Total Protein Digoxin Crossmatch 01/05/18 01/05/18 01/05/18 04:47 04:47 14:57 RBC Hgb Hct MCV MCH MCHC RDW Plt Count Lymph % (Auto) Bibb % (Auto) Baso % (Auto) Lymph # Bibb # Baso # Seg Neutrophils % Seg Neuts % (Manual) Lymphocytes % (Manual) Monocytes % (Manual) Eosinophils % (Manual) Basophils % (Manual) Lymphocytes # (Manual) Monocytes # (Manual) Eosinophils # (Manual) Basophils # (Manual) PT 24.3 H INR 2.04 H APTT Fibrinogen D-Dimer POC ABG pH POC ABG pCO2 POC ABG pO2 Sodium Potassium Chloride Carbon Dioxide BUN Creatinine 2.6 H Glucose 117 H POC Glucose Lactic Acid Calcium Phosphorus Magnesium TIBC Ferritin Total Bilirubin 9.50 H Direct Bilirubin AST 50 H Ammonia 75.0 H Lactate Dehydrogenase NT-Pro-B Natriuret Pep Total Protein Albumin 3.7 L Lipase Vitamin B12 Urine WBC (Auto) Urine Creatinine Ur Creatinine 24 Hour Fluid Glucose Fluid Total Protein Digoxin Crossmatch 01/06/18 01/06/18 01/07/18 02:35 02:35 09:29 RBC 2.75 L Hgb 9.2 L Hct 27.7 L MCV 101 H MCH 34 H MCHC RDW 25.1 H Plt Count 46 L Lymph % (Auto) Bibb % (Auto) Baso % (Auto) Lymph # Bibb # Baso # Seg Neutrophils % Seg Neuts % (Manual) Lymphocytes % (Manual) 13.0 L Monocytes % (Manual) Eosinophils % (Manual) 7.0 H Basophils % (Manual) 2.0 H Lymphocytes # (Manual) 1.0 L Monocytes # (Manual) Eosinophils # (Manual) 0.6 H Basophils # (Manual) 0.2 H PT 21.3 H INR 1.73 H APTT 41.2 H Fibrinogen D-Dimer POC ABG pH POC ABG pCO2 POC ABG pO2 Sodium Potassium Chloride 96.3 L Carbon Dioxide 21 L BUN 23 H Creatinine 2.9 H Glucose POC Glucose Lactic Acid Calcium Phosphorus Magnesium TIBC Ferritin Total Bilirubin 9.80 H Direct Bilirubin AST 65 H Ammonia Lactate Dehydrogenase NT-Pro-B Natriuret Pep Total Protein Albumin 3.5 L Lipase Vitamin B12 Urine WBC (Auto) Urine Creatinine Ur Creatinine 24 Hour Fluid Glucose Fluid Total Protein Digoxin Crossmatch 01/08/18 01/09/18 01/09/18 06:15 05:16 10:18 RBC Hgb Hct MCV MCH MCHC RDW Plt Count Lymph % (Auto) Bibb % (Auto) Baso % (Auto) Lymph # Bibb # Baso # Seg Neutrophils % Seg Neuts % (Manual) Lymphocytes % (Manual) Monocytes % (Manual) Eosinophils % (Manual) Basophils % (Manual) Lymphocytes # (Manual) Monocytes # (Manual) Eosinophils # (Manual) Basophils # (Manual) PT 22.6 H 24.2 H INR 1.86 H 2.02 H APTT 49.5 H Fibrinogen D-Dimer POC ABG pH POC ABG pCO2 POC ABG pO2 Sodium Potassium Chloride Carbon Dioxide BUN Creatinine Glucose POC Glucose Lactic Acid Calcium Phosphorus Magnesium TIBC Ferritin Total Bilirubin Direct Bilirubin AST Ammonia 22.0 L Lactate Dehydrogenase NT-Pro-B Natriuret Pep Total Protein Albumin Lipase Vitamin B12 Urine WBC (Auto) Urine Creatinine Ur Creatinine 24 Hour Fluid Glucose Fluid Total Protein Digoxin Crossmatch 01/10/18 01/10/18 05:01 05:01 RBC 2.40 L Hgb 8.4 L Hct 24.5 L MCV 102 H MCH 35 H MCHC RDW 27.3 H Plt Count 56 L Lymph % (Auto) Bibb % (Auto) Baso % (Auto) Lymph # Bibb # Baso # Seg Neutrophils % Seg Neuts % (Manual) 78.0 H Lymphocytes % (Manual) 5.0 L Monocytes % (Manual) 17.0 H Eosinophils % (Manual) Basophils % (Manual) Lymphocytes # (Manual) 0.4 L Monocytes # (Manual) 1.4 H Eosinophils # (Manual) Basophils # (Manual) PT INR APTT Fibrinogen D-Dimer POC ABG pH POC ABG pCO2 POC ABG pO2 Sodium Potassium Chloride 94.8 L Carbon Dioxide BUN 21 H Creatinine 2.6 H Glucose POC Glucose Lactic Acid Calcium Phosphorus Magnesium TIBC Ferritin Total Bilirubin 11.40 H Direct Bilirubin AST 86 H Ammonia Lactate Dehydrogenase NT-Pro-B Natriuret Pep Total Protein Albumin 3.6 L Lipase Vitamin B12 Urine WBC (Auto) Urine Creatinine Ur Creatinine 24 Hour Fluid Glucose Fluid Total Protein Digoxin Crossmatch Allied health notes reviewed: nursing
--- NOTE | 2018-01-10 16:56 | Progress Note ---
Assessment and Plan - Patient Problems (1) Acute hepatic encephalopathy Current Visit: Yes Status: Acute Plan to address problem: see orders. continue with lactulose, recheck ammonia level. continue same. supportive. (2) Anemia Current Visit: Yes Status: Acute Plan to address problem: see orders. Replacement transfusion, if hgb less than 7.0 same as above. see notes above. same as above, stable. see notes above. stable so far. (3) Renal failure Current Visit: Yes Status: Acute Plan to address problem: follow renal service. same as above. (4) Liver failure Current Visit: Yes Status: Acute Plan to address problem: Hepato-renal syndrome, continue with HD. (5) Coagulation disorder Current Visit: Yes Status: Acute Plan to address problem: see notes. Subjective Date of service: 01/10/18 Principal diagnosis: CARMEN on CKD; Acute Encephalopathy; Sepsis Syndrome; Anemia Interval history: Patient seen, restingm labs/notes reviewed. agree with management so far.labs showing consumptive coagulopathy. Patient seen, resting in bed, records/labs reviewed.PLT dropped some.Still no active bleeding. Patient seen/examined, records/labs / notes reviewed, hgb low at 6.9, will rec replacement transfusion,with HD tomorrow if planned to proceed with HD. Patient seen, resting in bed, labs/records reviewed, Hgb still low, transfusion written for today. Patient seen, resting in bed, labs reviewed, plt 57,000, rectal bleeding resolved, will continue to monitor patient/labs with you, and intervene with replacement transfusion, when needed. Patient seen, resting in bed, NAD, records reviewed. Patient seen, resting in bed, labs/records reviewed, no new issues, the latest plt fair, no any sign of bleeding. Patient seen, resting in bed, records reviewed, PLT 57,000, no bleeding. Patient seen, resting in bed, labs reviewed, hgb dropped drastically, due to rectal bleed.He is s/p blood transfusion. he is expected to continue to drop his hgb, as long as he continues to bleed. Will re check labs in am. Thrombocytopenia at above 20,000. will continue to monitor. Patient seen, resting in bed, labs reviewed, ,he will need some PLT+ FFP, especially if there is any plans for any procedure, otherwise, can watch if any active bleeding, or plt 20,000 or less. patient seen/examined, resting in bed, labs reviewed, s/p GI scope, and blood transfusion, Plt replacement ,to follow. patient seen, resting in bed, labs, reviewed, plt 39,000, replacement not given yesterday? Patient seen/examined, at the HD center, resting in bed, was able ro discuss his case with him, regarding prognosis, and options, as i had d/w his yesterday. he wants to talk with his first.. his PLT came up following transfusion, hgb at Fair level at this time,Will see how much this will hold in the next few days.He is really not a good candidate for any transplant ,given, his condition, and co morbid issues at this time. Prognosis is quite poor for Hepato-renal syndrome, let alone complicated by thrombocytopenia/anemia, and double vital organ failure.He has no real reserve as far as these organs are concerned.You may want to have a vince family talk with him, his , and doctors Patient resting in bed, labs reviewed, and fairly stable, slight drop in hgb, and plt, but overall stable in the last 24hrs.notes reviewed. Patient seen/resting in bed, labs reviewed, d/w primary team. Hgb dropped, but plt holding steady since replacement. Patient resting in bed, labs reviewed, rec stays the same.Replacement transfusion prn. i have spoken to patient/, and sister at [facility]. Patient seen/examined, resting in bed, c/o not eating much due to lack of appetite.Rec appetite enhancer. Patient seen, resting in bed, labs reviewed, and remain fair. Patient seen, resting in bed, labs, reviewed, INR 2+, PLT55,000.Will give some FFP today, and perhaps on sunday, to see if he can get his procedure done. Patient seen, resting in bed, labs reviewed, INR did not improve, following FFP yesterday , if at it was given. patient seen, resting in bed, labs reviewed, PLT, 46,000, no bleeding. If any procedure is intended, can give FFP+_ PLT.,or if any bleeding. Patient seen rthis am, resting in bed, labs reviewed, PT/INR ordered, post FFP transfusion, for possible procedure today.I do not think his INR can get to the desired level of i.4 due to damaged liver. I rec hang FFP during procedure, and PLT 1-2 units can even be given prior . Patient seen/examined, resting in bed, NAD, latest labs reviewed. Patient seen, resting in bed, labs reviewed, will get new labs. Patient seen/examined, resting in bd, NAD, no new issues at this time. Objective - Constitutional Vitals: Vital Signs - 12hr 01/10/18 01/10/18 01/10/18 05:38 08:33 10:00 Temperature 97.3 F L 98.1 F Pulse Rate 62 68 Pulse Rate [ 68 Apical] Respiratory 18 18 18 Rate Blood Pressure 93/60 93/54 O2 Sat by Pulse 90 100 Oximetry 01/10/18 01/10/18 01/10/18 12:04 13:24 15:11 Temperature 98.1 F 98.4 F Pulse Rate 68 63 Pulse Rate [ Apical] Respiratory 16 16 Rate Blood Pressure 95/54 88/57 O2 Sat by Pulse 49 L 95 96 Oximetry General appearance: Present: no acute distress - EENT Eyes: PERRL, EOM intact ENT: hearing intact, clear oral mucosa Ears: bilateral: normal - Neck Neck: supple, normal ROM - Respiratory Respiratory effort: normal Respiratory: bilateral: CTA - Breasts Breasts: deferred - Cardiovascular Rhythm: regular Heart Sounds: Present: S1 & S2. Absent: gallop, rub Extremities: pulses intact, No edema, normal color, Full ROM - Gastrointestinal General gastrointestinal: Present: soft, non-tender, non-distended, normal bowel sounds Rectal Exam: deferred - Genitourinary Male genitourinary: deferred - Integumentary Integumentary: clear, warm, dry - Musculoskeletal Musculoskeletal: 1, strength equal bilaterally - Neurologic Neurologic: moves all extremities - Psychiatric Psychiatric: appropriate mood/affect - Labs CBC & Chem 7: 01/10/18 05:01 01/10/18 05:01 Labs: Abnormal lab results 01/10/18 01/10/18 Range/Units 05:01 05:01 RBC 2.40 L (3.65-5.03) M/mm3 Hgb 8.4 L (11.8-15.2) gm/dl Hct 24.5 L (35.5-45.6) % MCV 102 H (84-94) fl MCH 35 H (28-32) pg RDW 27.3 H (13.2-15.2) % Plt Count 56 L (140-440) K/mm3 Seg Neuts % (Manual) 78.0 H (40.0-70.0) % Lymphocytes % (Manual) 5.0 L (13.4-35.0) % Monocytes % (Manual) 17.0 H (0.0-7.3) % Lymphocytes # (Manual) 0.4 L (1.2-5.4) K/mm3 Monocytes # (Manual) 1.4 H (0.0-0.8) K/mm3 Chloride 94.8 L (98-107) mmol/L BUN 21 H (9-20) mg/dL Creatinine 2.6 H (0.8-1.5) mg/dL Total Bilirubin 11.40 H (0.1-1.2) mg/dL AST 86 H (5-40) units/L Albumin 3.6 L (3.9-5) g/dL
[2018-01-11 06:23] LABS: Hematocrit 24.8 % (35.5-45.6); Hemoglobin 8.5 gm/dl (11.8-15.2); Mean Corpuscular HGB Conc 34 % (32-34); Mean Corpuscular Hemoglobin 36 pg (28-32); Mean Corpuscular Volume 104 fl (84-94)
[2018-01-11 06:30] LABS: Platelet Count 70 K/mm3 (140-440); Red Cell Distribution Width 27.9 % (13.2-15.2)
[2018-01-11 06:57] LABS: Albumin 3.7 g/dL (3.9-5); Calcium 9.8 mg/dL (8.4-10.2)
[2018-01-11] MEDS: CEPHULAC PO SCH ×2 (07:04→17:27)
[2018-01-11 07:48] LABS: Acanthocytes 1+; Anisocytosis 2+; Macrocytosis 2+
[2018-01-11 07:49] LABS: Platelet Estimate Consistent w Auto
[2018-01-11 07:52] LABS: Band Neutrophils # (Manual) 0.1 K/mm3; Basophils % (Manual) 0 % (0.0-1.8); Schistocytes Few; Total Cells Counted 100
--- NOTE | 2018-01-11 07:57 | Progress Note ---
Assessment and Plan Impression: * Oliguric CARMEN secondary to ATN vs HRS --s/p permcath placement 12/17/17 and initiation of dialysis * Cirrhosis * Abdominal ascites * Anemia secondary to ABL * s/p Rectal bleeding * Hx of esophageal varices * Hyperbilirubinemia Plan: * Continue HD MWF - UF as tolerated; no evidence of renal recovery * Consultants' recommendations reviewed * Medical management of electrolytes * Avoid potential nephrotoxic agents * Dose medications for renal function * Outpatient HD MWF at [facility] arranged Subjective Date of service: 01/11/18 Principal diagnosis: CARMEN on CKD; Acute Encephalopathy; Sepsis Syndrome; Anemia Interval history: No acute events overnight. Objective - Vital Signs Vital signs: Vital Signs - 12hr 01/10/18 01/10/18 01/10/18 21:44 22:00 23:34 Temperature Pulse Rate 64 65 Respiratory 20 Rate Blood Pressure 91/51 Blood Pressure [Left] O2 Sat by Pulse 94 99 Oximetry 01/10/18 01/11/18 23:35 05:27 Temperature 98.0 F 98.1 F Pulse Rate 65 95 H Respiratory 18 18 Rate Blood Pressure 95/58 Blood Pressure 110/71 94/64 [Left] O2 Sat by Pulse 97 91 Oximetry - General Appearance General appearance: well-developed, well-nourished EENT: ATNC Respiratory: Present: Decreased Breath Sounds Cardiology: regular, S1S2 Gastrointestinal: normal, no tenderness, no distended Integumentary: no rash, warm and dry Neurologic: other (legally blind) Musculoskeletal: other (no edema) Psychiatric: cooperative - Lab 01/11/18 05:46 01/11/18 05:46 Most recent lab results Calcium 9.8 mg/dL (8.4-10.2) 01/11/18 05:46 Phosphorus 2.40 mg/dL (2.5-4.5) L 12/26/17 05:59 Magnesium 1.90 mg/dL (1.7-2.3) 01/11/18 05:46 Urine Creatinine 122.5 mg/dL (0.1-20.0) H 12/14/17 Unknown
[2018-01-11] MEDS: PROAMATINE PO SCH ×3 (08:00→21:35)
--- NOTE | 2018-01-11 09:37 | Progress Note ---
Assessment and Plan - Patient Problems (1) Acute hepatic encephalopathy Current Visit: Yes Status: Acute Plan to address problem: see orders. continue with lactulose, recheck ammonia level. continue same. supportive. (2) Anemia Current Visit: Yes Status: Acute Plan to address problem: see orders. Replacement transfusion, if hgb less than 7.0 same as above. see notes above. same as above, stable. see notes above. stable so far. (3) Renal failure Current Visit: Yes Status: Acute Plan to address problem: follow renal service. same as above. (4) Liver failure Current Visit: Yes Status: Acute Plan to address problem: Hepato-renal syndrome, continue with HD. (5) Coagulation disorder Current Visit: Yes Status: Acute Plan to address problem: see notes. Subjective Date of service: 01/11/18 Principal diagnosis: CARMEN on CKD; Acute Encephalopathy; Sepsis Syndrome; Anemia Interval history: Patient seen, restingm labs/notes reviewed. agree with management so far.labs showing consumptive coagulopathy. Patient seen, resting in bed, records/labs reviewed.PLT dropped some.Still no active bleeding. Patient seen/examined, records/labs / notes reviewed, hgb low at 6.9, will rec replacement transfusion,with HD tomorrow if planned to proceed with HD. Patient seen, resting in bed, labs/records reviewed, Hgb still low, transfusion written for today. Patient seen, resting in bed, labs reviewed, plt 57,000, rectal bleeding resolved, will continue to monitor patient/labs with you, and intervene with replacement transfusion, when needed. Patient seen, resting in bed, NAD, records reviewed. Patient seen, resting in bed, labs/records reviewed, no new issues, the latest plt fair, no any sign of bleeding. Patient seen, resting in bed, records reviewed, PLT 57,000, no bleeding. Patient seen, resting in bed, labs reviewed, hgb dropped drastically, due to rectal bleed.He is s/p blood transfusion. he is expected to continue to drop his hgb, as long as he continues to bleed. Will re check labs in am. Thrombocytopenia at above 20,000. will continue to monitor. Patient seen, resting in bed, labs reviewed, ,he will need some PLT+ FFP, especially if there is any plans for any procedure, otherwise, can watch if any active bleeding, or plt 20,000 or less. patient seen/examined, resting in bed, labs reviewed, s/p GI scope, and blood transfusion, Plt replacement ,to follow. patient seen, resting in bed, labs, reviewed, plt 39,000, replacement not given yesterday? Patient seen/examined, at the HD center, resting in bed, was able ro discuss his case with him, regarding prognosis, and options, as i had d/w his yesterday. he wants to talk with his first.. his PLT came up following transfusion, hgb at Fair level at this time,Will see how much this will hold in the next few days.He is really not a good candidate for any transplant ,given, his condition, and co morbid issues at this time. Prognosis is quite poor for Hepato-renal syndrome, let alone complicated by thrombocytopenia/anemia, and double vital organ failure.He has no real reserve as far as these organs are concerned.You may want to have a vince family talk with him, his , and doctors Patient resting in bed, labs reviewed, and fairly stable, slight drop in hgb, and plt, but overall stable in the last 24hrs.notes reviewed. Patient seen/resting in bed, labs reviewed, d/w primary team. Hgb dropped, but plt holding steady since replacement. Patient resting in bed, labs reviewed, rec stays the same.Replacement transfusion prn. i have spoken to patient/, and sister at [facility]. Patient seen/examined, resting in bed, c/o not eating much due to lack of appetite.Rec appetite enhancer. Patient seen, resting in bed, labs reviewed, and remain fair. Patient seen, resting in bed, labs, reviewed, INR 2+, PLT55,000.Will give some FFP today, and perhaps on sunday, to see if he can get his procedure done. Patient seen, resting in bed, labs reviewed, INR did not improve, following FFP yesterday , if at it was given. patient seen, resting in bed, labs reviewed, PLT, 46,000, no bleeding. If any procedure is intended, can give FFP+_ PLT.,or if any bleeding. Patient seen rthis am, resting in bed, labs reviewed, PT/INR ordered, post FFP transfusion, for possible procedure today.I do not think his INR can get to the desired level of i.4 due to damaged liver. I rec hang FFP during procedure, and PLT 1-2 units can even be given prior . Patient seen/examined, resting in bed, NAD, latest labs reviewed. Patient seen, resting in bed, labs reviewed, will get new labs. Patient seen/examined, resting in bd, NAD, no new issues at this time. Patient resting in bed, labs reviewed, and much better levels today. Objective - Constitutional Vitals: Vital Signs - 12hr 01/10/18 01/10/18 01/10/18 21:44 22:00 23:34 Temperature Pulse Rate 64 65 Respiratory 20 Rate Blood Pressure 91/51 Blood Pressure [Left] O2 Sat by Pulse 94 99 Oximetry 01/10/18 01/11/18 23:35 05:27 Temperature 98.0 F 98.1 F Pulse Rate 65 95 H Respiratory 18 18 Rate Blood Pressure 95/58 Blood Pressure 110/71 94/64 [Left] O2 Sat by Pulse 97 91 Oximetry General appearance: Present: no acute distress, well-nourished - EENT Eyes: PERRL, EOM intact ENT: hearing intact, clear oral mucosa Ears: bilateral: normal - Neck Neck: supple, normal ROM - Respiratory Respiratory effort: normal Respiratory: bilateral: CTA - Breasts Breasts: deferred - Cardiovascular Rhythm: regular Heart Sounds: Present: S1 & S2. Absent: gallop, rub Extremities: pulses intact, No edema, normal color, Full ROM - Gastrointestinal General gastrointestinal: Present: soft, non-tender, non-distended, normal bowel sounds Rectal Exam: deferred - Genitourinary Male genitourinary: deferred - Integumentary Integumentary: clear, warm, dry - Musculoskeletal Musculoskeletal: 1, strength equal bilaterally - Neurologic Neurologic: moves all extremities - Psychiatric Psychiatric: appropriate mood/affect - Labs CBC & Chem 7: 01/11/18 05:46 01/11/18 05:46 Labs: Abnormal lab results 01/10/18 01/11/18 01/11/18 Range/Units 05:01 05:46 05:46 RBC 2.40 L (3.65-5.03) M/mm3 Hgb 8.5 L (11.8-15.2) gm/dl Hct 24.8 L (35.5-45.6) % MCV 104 H (84-94) fl MCH 36 H (28-32) pg RDW 27.9 H (13.2-15.2) % Plt Count 70 L (140-440) K/mm3 Seg Neuts % (Manual) 78.0 H 90.0 H (40.0-70.0) % Lymphocytes % (Manual) 5.0 L 5.0 L (13.4-35.0) % Monocytes % (Manual) 17.0 H (0.0-7.3) % Nucleated RBC % 1.0 H (0.0-0.9) % Lymphocytes # (Manual) 0.4 L 0.4 L (1.2-5.4) K/mm3 Monocytes # (Manual) 1.4 H (0.0-0.8) K/mm3 Sodium 136 L (137-145) mmol/L Chloride 94.3 L (98-107) mmol/L BUN 28 H (9-20) mg/dL Creatinine 3.0 H (0.8-1.5) mg/dL Glucose 105 H (75-100) mg/dL Total Bilirubin 12.10 H (0.1-1.2) mg/dL AST 86 H (5-40) units/L Ammonia (25-60) umol/L Albumin 3.7 L (3.9-5) g/dL // Range/Units 05:46 RBC (3.65-5.03) M/mm3 Hgb (11.8-15.2) gm/dl Hct (35.5-45.6) % MCV (84-94) fl MCH (28-32) pg RDW (13.2-15.2) % Plt Count (140-440) K/mm3 Seg Neuts % (Manual) (40.0-70.0) % Lymphocytes % (Manual) (13.4-35.0) % Monocytes % (Manual) (0.0-7.3) % Nucleated RBC % (0.0-0.9) % Lymphocytes # (Manual) (1.2-5.4) K/mm3 Monocytes # (Manual) (0.0-0.8) K/mm3 Sodium (137-145) mmol/L Chloride (98-107) mmol/L BUN (9-20) mg/dL Creatinine (0.8-1.5) mg/dL Glucose (75-100) mg/dL Total Bilirubin (0.1-1.2) mg/dL AST (5-40) units/L Ammonia 64.0 H (25-60) umol/L Albumin (3.9-5) g/dL
[2018-01-11] MEDS: XIFAXAN PO SCH ×2 (10:00→22:50)
[2018-01-11] MEDS: LOPRESSOR PO SCH ×2 (10:00→22:50)
[2018-01-11] MEDS: THERAGRAN-M Tab PO SCH (10:00)
--- NOTE | 2018-01-11 11:08 | Progress Note ---
Assessment and Plan Anemia s/p transfusion of PRBCs Thrombocytopenia, chronic Chronic renal failure initiated on dialysis Hypotension -on midodrine therapy Hx of Cirrhosis with bleeding esophageal varices requiring TIPS 11/2016 Paroxysmal Atrial flutter seen on telemetry currently in sinus rhythm; on beta blockers for suppression as tolerated normal TSH patient is considered not a candidate for anticoagulation given underlying liver cirrhosis. Pleural effusion Echocardiogram shows mild cardiomyopathy with left ventricular ejection fraction 45-50%. There is mild to moderate tricuspid regurgitation, pulmonary artery pressure is 31, and there is a left pleural effusion. Conservative cardiac management. Subjective Date of service: 01/11/18 Principal diagnosis: CARMEN on CKD; Acute Encephalopathy; Sepsis Syndrome; Anemia Interval history: Undergoing dialysis. Stable sinus rhythm on telemetry. Objective Vital Signs Temp Pulse Resp BP BP Pulse Ox 01/11/18 10:30 71 98/61 01/11/18 10:15 70 109/53 01/11/18 10:00 69 88/55 01/11/18 09:51 70 89/57 01/11/18 09:42 98.1 F 75 18 93/52 01/11/18 05:27 98.1 F 95 H 18 95/58 94/64 91 01/10/18 23:35 98.0 F 65 18 110/71 97 01/10/18 23:34 65 99 01/10/18 22:00 20 94 01/10/18 21:44 64 91/51 01/10/18 19:29 99.1 F 64 96/54 88 01/10/18 15:11 98.4 F 63 16 88/57 96 01/10/18 13:24 95 01/10/18 12:04 98.1 F 68 16 95/54 49 L - Physical Examination General: No Apparent Distress HEENT: Positive: PERRL Cardiac: Positive: Reg Rate and Rhythm - Labs and Meds Cardiac Enzymes 01/11/18 Range/Units 05:46 AST 86 H (5-40) units/L CBC 01/11/18 Range/Units 05:46 WBC 8.4 (4.5-11.0) K/mm3 RBC 2.40 L (3.65-5.03) M/mm3 Hgb 8.5 L (11.8-15.2) gm/dl Hct 24.8 L (35.5-45.6) % Plt Count 70 L (140-440) K/mm3 Comprehensive Metabolic Panel 01/11/18 Range/Units 05:46 Sodium 136 L (137-145) mmol/L Potassium 4.4 (3.6-5.0) mmol/L Chloride 94.3 L (98-107) mmol/L Carbon Dioxide 24 (22-30) mmol/L BUN 28 H (9-20) mg/dL Creatinine 3.0 H (0.8-1.5) mg/dL Glucose 105 H (75-100) mg/dL Calcium 9.8 (8.4-10.2) mg/dL AST 86 H (5-40) units/L ALT 28 (7-56) units/L Alkaline Phosphatase 92 (35-129) units/L Total Protein 7.6 (6.3-8.2) g/dL Albumin 3.7 L (3.9-5) g/dL - Allied health notes Allied health notes reviewed: nursing
[2018-01-11] MEDS: PROTONIX PO SCH (12:42)
--- NOTE | 2018-01-11 14:03 | Progress Note ---
Assessment and Plan Patient sleeping at this time. No acute respiratory distress.Patient is on room air.O2 saturation 96% on room air.No acute respiratory distress. - Patient Problems (1) Bilateral pleural effusion Current Visit: No Status: Acute Plan to address problem: CT of chest reported large bilateral pleural effusion. But is asymptomatic. (2) Hypovolemic shock Current Visit: Yes Status: Acute Plan to address problem: Improved . (3) CARMEN (acute kidney injury) Current Visit: Yes Status: Acute Plan to address problem: Management as per nephrology. (4) Acute hepatic encephalopathy Current Visit: Yes Status: Acute Plan to address problem: Management as per primary care. (5) Alcoholic cirrhosis of liver with ascites Current Visit: Yes Status: Acute Plan to address problem: Management as per primary care. (6) Anemia Current Visit: Yes Status: Acute Plan to address problem: Management as per primary care. Subjective Date of service: 01/11/18 Principal diagnosis: CARMEN on CKD; Acute Encephalopathy; Sepsis Syndrome; Anemia Interval history: Patient sleeping at this time. No acute respiratory distress.Patient is on room air.O2 saturation 96% on room air.No acute respiratory distress. Objective Vital Signs - 12hr 01/11/18 01/11/18 01/11/18 05:27 09:42 09:51 Temperature 98.1 F 98.1 F Pulse Rate 95 H 75 70 Pulse Rate [ Apical] Respiratory 18 18 Rate Blood Pressure 95/58 93/52 89/57 Blood Pressure 94/64 [Left] O2 Sat by Pulse 91 Oximetry 01/11/18 01/11/18 01/11/18 10:00 10:15 10:30 Temperature Pulse Rate 76 70 71 Pulse Rate [ 74 Apical] Respiratory 18 Rate Blood Pressure 88/55 109/53 98/61 Blood Pressure [Left] O2 Sat by Pulse 95 Oximetry 01/11/18 01/11/18 01/11/18 10:45 11:00 11:15 Temperature Pulse Rate 72 68 72 Pulse Rate [ Apical] Respiratory Rate Blood Pressure 92/43 96/51 83/42 Blood Pressure [Left] O2 Sat by Pulse Oximetry 01/11/18 01/11/18 01/11/18 11:30 11:45 12:00 Temperature Pulse Rate 76 64 73 Pulse Rate [ Apical] Respiratory Rate Blood Pressure 100/60 92/40 92/47 Blood Pressure [Left] O2 Sat by Pulse Oximetry 01/11/18 01/11/18 01/11/18 12:30 12:45 13:00 Temperature 98.1 F Pulse Rate 72 77 74 Pulse Rate [ Apical] Respiratory 18 Rate Blood Pressure 114/52 88/59 113/42 Blood Pressure [Left] O2 Sat by Pulse Oximetry Constitutional: no acute distress, asleep, other (chronically ill looking elderly AAM, normocephalic and atraumatic) Eyes: non-icteric ENT: oropharynx moist, other (mallampati 2) Neck: supple, no lymphadenopathy, no JVD, other (no thyromegaly) Effort: normal Ascultation: Bilateral: diminished breath sounds (bases), rhonchi Percussion: Bilateral: not dull, dull (bases) Cardiovascular: regular rate and rhythm, other (S1,S2, no murmurms, gallops or rubs) Gastrointestinal: normoactive bowel sounds, soft, non-tender, other (distended) Integumentary: rash Extremities: no cyanosis, no edema, pulses normal, no ischemia or petechiae, cool Neurologic: non-focal exam, pupils equal and round, other (Patient sleeping at this time.) Psychiatric: other (Sleeping at this time) CBC and BMP: 01/11/18 05:46 01/11/18 05:46 ABG, PT/INR, D-dimer: ABG POC ABG pH 7.452 (7.35-7.45) H 12/12/17 09:13 POC ABG pCO2 22.2 (35-45) L 12/12/17 09:13 POC ABG pO2 75 (80-105) L 12/12/17 09:13 POC ABG HCO3 15.5 12/12/17 09:13 POC ABG Total CO2 16 12/12/17 09:13 POC ABG O2 Sat 96 12/12/17 09:13 PT/INR, D-dimer PT 24.2 Sec. (12.2-14.9) H 01/09/18 10:18 INR 2.02 (0.87-1.13) H 01/09/18 10:18 D-Dimer 1215.06 ng/mlDDU (0-234) H 12/12/17 19:50 Abnormal lab findings: Abnormal Labs 07/12/10/17 12/10/17 13:14 13:14 23:05 RBC 2.31 L Hgb 7.3 L Hct 21.5 L MCV MCH MCHC RDW 17.7 H Plt Count 61 L Lymph % (Auto) Piatt % (Auto) Baso % (Auto) Lymph # Piatt # Baso # Seg Neutrophils % Seg Neuts % (Manual) 81.0 H Lymphocytes % (Manual) 11.0 L Monocytes % (Manual) Eosinophils % (Manual) Basophils % (Manual) Nucleated RBC % Lymphocytes # (Manual) 0.6 L Monocytes # (Manual) Eosinophils # (Manual) Basophils # (Manual) PT INR APTT Fibrinogen D-Dimer POC ABG pH POC ABG pCO2 POC ABG pO2 Sodium 136 L Potassium 5.2 H Chloride Carbon Dioxide 15 L BUN 47 H Creatinine 5.2 H Glucose 127 H POC Glucose Lactic Acid Calcium Phosphorus Magnesium TIBC Ferritin Total Bilirubin 3.50 H Direct Bilirubin AST 71 H Ammonia Lactate Dehydrogenase NT-Pro-B Natriuret Pep Total Protein Albumin 2.6 L Lipase Vitamin B12 Urine WBC (Auto) 10.0 H Urine Creatinine Ur Creatinine 24 Hour Fluid Glucose Fluid Total Protein Digoxin Crossmatch 12/10/17 12/10/17 12/10/17 23:14 23:14 23:14 RBC Hgb Hct MCV MCH MCHC RDW Plt Count Lymph % (Auto) [place]att % (Auto) Baso % (Auto) Lymph # [place] # Baso # Seg Neutrophils % Seg Neuts % (Manual) Lymphocytes % (Manual) Monocytes % (Manual) Eosinophils % (Manual) Basophils % (Manual) Nucleated RBC % Lymphocytes # (Manual) Monocytes # (Manual) Eosinophils # (Manual) Basophils # (Manual) PT INR APTT Fibrinogen D-Dimer POC ABG pH POC ABG pCO2 POC ABG pO2 Sodium Potassium Chloride Carbon Dioxide BUN Creatinine Glucose POC Glucose Lactic Acid 2.40 H* Calcium Phosphorus Magnesium TIBC Ferritin Total Bilirubin Direct Bilirubin AST Ammonia 134.0 H Lactate Dehydrogenase NT-Pro-B Natriuret Pep 9558 H Total Protein Albumin Lipase Vitamin B12 Urine WBC (Auto) Urine Creatinine Ur Creatinine 24 Hour Fluid Glucose Fluid Total Protein Digoxin Crossmatch 12/10/17 12/11/17 12/11/17 23:14 00:29 03:33 RBC Hgb Hct MCV MCH MCHC RDW Plt Count Lymph % (Auto) [place]att % (Auto) Baso % (Auto) Lymph # [place] # Baso # Seg Neutrophils % Seg Neuts % (Manual) Lymphocytes % (Manual) Monocytes % (Manual) Eosinophils % (Manual) Basophils % (Manual) Nucleated RBC % Lymphocytes # (Manual) Monocytes # (Manual) Eosinophils # (Manual) Basophils # (Manual) PT INR APTT Fibrinogen D-Dimer POC ABG pH POC ABG pCO2 POC ABG pO2 Sodium Potassium Chloride Carbon Dioxide BUN Creatinine Glucose POC Glucose Lactic Acid 2.80 H* 3.00 H* Calcium Phosphorus Magnesium TIBC Ferritin Total Bilirubin Direct Bilirubin AST Ammonia Lactate Dehydrogenase NT-Pro-B Natriuret Pep Total Protein Albumin Lipase 7 L Vitamin B12 Urine WBC (Auto) Urine Creatinine Ur Creatinine 24 Hour Fluid Glucose Fluid Total Protein Digoxin Crossmatch 12/11/17 12/11/17 12/11/17 04:08 04:34 04:34 RBC Hgb Hct MCV MCH MCHC RDW Plt Count Lymph % (Auto) [place] % (Auto) Baso % (Auto) Lymph # [place] # Baso # Seg Neutrophils % Seg Neuts % (Manual) Lymphocytes % (Manual) Monocytes % (Manual) Eosinophils % (Manual) Basophils % (Manual) Nucleated RBC % Lymphocytes # (Manual) Monocytes # (Manual) Eosinophils # (Manual) Basophils # (Manual) PT 19.1 H INR 1.51 H APTT 45.7 H Fibrinogen D-Dimer POC ABG pH POC ABG pCO2 POC ABG pO2 Sodium Potassium Chloride Carbon Dioxide BUN Creatinine Glucose POC Glucose 113 H Lactic Acid 3.10 H* Calcium Phosphorus Magnesium TIBC Ferritin Total Bilirubin Direct Bilirubin AST Ammonia Lactate Dehydrogenase NT-Pro-B Natriuret Pep Total Protein Albumin Lipase Vitamin B12 Urine WBC (Auto) Urine Creatinine Ur Creatinine 24 Hour Fluid Glucose Fluid Total Protein Digoxin Crossmatch 12/11/17 12/11/17 12/11/17 06:46 07:26 09:42 RBC Hgb Hct MCV MCH MCHC RDW Plt Count Lymph % (Auto) [place] % (Auto) Baso % (Auto) Lymph # [place] # Baso # Seg Neutrophils % Seg Neuts % (Manual) Lymphocytes % (Manual) Monocytes % (Manual) Eosinophils % (Manual) Basophils % (Manual) Nucleated RBC % Lymphocytes # (Manual) Monocytes # (Manual) Eosinophils # (Manual) Basophils # (Manual) PT INR APTT Fibrinogen D-Dimer POC ABG pH POC ABG pCO2 POC ABG pO2 Sodium Potassium Chloride Carbon Dioxide BUN Creatinine Glucose POC Glucose Lactic Acid 2.70 H* 2.80 H* 2.90 H* Calcium Phosphorus Magnesium TIBC Ferritin Total Bilirubin Direct Bilirubin AST Ammonia Lactate Dehydrogenase NT-Pro-B Natriuret Pep Total Protein Albumin Lipase Vitamin B12 Urine WBC (Auto) Urine Creatinine Ur Creatinine 24 Hour Fluid Glucose Fluid Total Protein Digoxin Crossmatch 12/11/17 12/11/17 12/11/17 13:12 14:06 23:14 RBC Hgb Hct MCV MCH MCHC RDW Plt Count Lymph % (Auto) [place] % (Auto) Baso % (Auto) Lymph # [place] # Baso # Seg Neutrophils % Seg Neuts % (Manual) Lymphocytes % (Manual) Monocytes % (Manual) Eosinophils % (Manual) Basophils % (Manual) Nucleated RBC % Lymphocytes # (Manual) Monocytes # (Manual) Eosinophils # (Manual) Basophils # (Manual) PT INR APTT Fibrinogen D-Dimer POC ABG pH POC ABG pCO2 POC ABG pO2 Sodium Potassium Chloride Carbon Dioxide BUN Creatinine Glucose POC Glucose Lactic Acid 3.10 H* 3.10 H* 3.70 H* Calcium Phosphorus Magnesium TIBC Ferritin Total Bilirubin Direct Bilirubin AST Ammonia Lactate Dehydrogenase NT-Pro-B Natriuret Pep Total Protein Albumin Lipase Vitamin B12 Urine WBC (Auto) Urine Creatinine Ur Creatinine 24 Hour Fluid Glucose Fluid Total Protein Digoxin Crossmatch 12/11/17 12/12/17 12/12/17 23:23 03:41 03:41 RBC 2.17 L Hgb 7.0 L Hct 19.9 L* MCV MCH 33 H MCHC 35 H RDW 17.7 H Plt Count 62 L Lymph % (Auto) [place] % (Auto) Baso % (Auto) Lymph # [place] # Baso # Seg Neutrophils % Seg Neuts % (Manual) 91.0 H Lymphocytes % (Manual) 3.0 L Monocytes % (Manual) Eosinophils % (Manual) Basophils % (Manual) Nucleated RBC % Lymphocytes # (Manual) 0.2 L Monocytes # (Manual) Eosinophils # (Manual) Basophils # (Manual) PT INR APTT Fibrinogen D-Dimer POC ABG pH POC ABG pCO2 POC ABG pO2 Sodium Potassium 5.4 H Chloride Carbon Dioxide 12 L BUN 47 H Creatinine 4.5 H Glucose 103 H POC Glucose Lactic Acid Calcium 8.0 L Phosphorus Magnesium TIBC Ferritin Total Bilirubin 3.60 H Direct Bilirubin AST 58 H Ammonia Lactate Dehydrogenase NT-Pro-B Natriuret Pep Total Protein 5.9 L Albumin 2.5 L Lipase Vitamin B12 Urine WBC (Auto) Urine Creatinine Ur Creatinine 24 Hour Fluid Glucose Fluid Total Protein Digoxin Crossmatch See Detail 12/12/17 12/12/17 12/12/17 07:00 09:13 17:55 RBC 2.06 L Hgb 6.6 L Hct 18.6 L* MCV MCH MCHC 36 H RDW 17.8 H Plt Count 77 L Lymph % (Auto) [place] % (Auto) Baso % (Auto) Lymph # [place] # Baso # Seg Neutrophils % Seg Neuts % (Manual) Lymphocytes % (Manual) Monocytes % (Manual) Eosinophils % (Manual) Basophils % (Manual) Nucleated RBC % Lymphocytes # (Manual) Monocytes # (Manual) Eosinophils # (Manual) Basophils # (Manual) PT INR APTT Fibrinogen D-Dimer POC ABG pH 7.452 H POC ABG pCO2 22.2 L POC ABG pO2 75 L Sodium Potassium Chloride Carbon Dioxide BUN Creatinine Glucose POC Glucose 119 H Lactic Acid Calcium Phosphorus Magnesium TIBC Ferritin Total Bilirubin Direct Bilirubin AST Ammonia Lactate Dehydrogenase NT-Pro-B Natriuret Pep Total Protein Albumin Lipase Vitamin B12 Urine WBC (Auto) Urine Creatinine Ur Creatinine 24 Hour Fluid Glucose Fluid Total Protein Digoxin Crossmatch 12/12/17 12/12/17 12/12/17 19:50 19:50 19:50 RBC 2.40 L Hgb 7.8 L Hct 21.3 L MCV MCH 33 H MCHC 37 H RDW 16.1 H Plt Count 99 L Lymph % (Auto) [place] % (Auto) Baso % (Auto) Lymph # [place] # Baso # Seg Neutrophils % Seg Neuts % (Manual) 87.0 H Lymphocytes % (Manual) 5.0 L Monocytes % (Manual) Eosinophils % (Manual) Basophils % (Manual) Nucleated RBC % Lymphocytes # (Manual) 0.3 L Monocytes # (Manual) Eosinophils # (Manual) Basophils # (Manual) PT 21.9 H INR 1.79 H APTT 41.5 H Fibrinogen 128 L D-Dimer 1215.06 H POC ABG pH POC ABG pCO2 POC ABG pO2 Sodium Potassium Chloride Carbon Dioxide BUN Creatinine Glucose POC Glucose Lactic Acid Calcium Phosphorus Magnesium TIBC Ferritin Total Bilirubin 4.10 H Direct Bilirubin 1.6 H AST Ammonia Lactate Dehydrogenase NT-Pro-B Natriuret Pep Total Protein Albumin Lipase Vitamin B12 Urine WBC (Auto) Urine Creatinine Ur Creatinine 24 Hour Fluid Glucose Fluid Total Protein Digoxin Crossmatch 12/12/17 12/12/17 12/12/17 19:50 19:50 23:46 RBC Hgb Hct MCV MCH MCHC RDW Plt Count Lymph % (Auto) [place] % (Auto) Baso % (Auto) Lymph # [place] # Baso # Seg Neutrophils % Seg Neuts % (Manual) Lymphocytes % (Manual) Monocytes % (Manual) Eosinophils % (Manual) Basophils % (Manual) Nucleated RBC % Lymphocytes # (Manual) Monocytes # (Manual) Eosinophils # (Manual) Basophils # (Manual) PT INR APTT Fibrinogen D-Dimer POC ABG pH POC ABG pCO2 POC ABG pO2 Sodium Potassium Chloride Carbon Dioxide BUN Creatinine Glucose POC Glucose 110 H Lactic Acid Calcium Phosphorus Magnesium TIBC Ferritin Total Bilirubin Direct Bilirubin AST Ammonia Lactate Dehydrogenase 213 H NT-Pro-B Natriuret Pep Total Protein Albumin Lipase Vitamin B12 1465 H Urine WBC (Auto) Urine Creatinine Ur Creatinine 24 Hour Fluid Glucose Fluid Total Protein Digoxin Crossmatch 12/13/17 12/13/17 12/13/17 04:00 04:00 05:12 RBC 2.32 L Hgb 7.4 L Hct 20.8 L MCV MCH MCHC 36 H RDW 16.1 H Plt Count 134 L Lymph % (Auto) 13.1 L Piatt % (Auto) 7.9 H Baso % (Auto) Lymph # 0.8 L [place] # Baso # Seg Neutrophils % 76.3 H Seg Neuts % (Manual) Lymphocytes % (Manual) Monocytes % (Manual) Eosinophils % (Manual) Basophils % (Manual) Nucleated RBC % Lymphocytes # (Manual) Monocytes # (Manual) Eosinophils # (Manual) Basophils # (Manual) PT INR APTT Fibrinogen D-Dimer POC ABG pH POC ABG pCO2 POC ABG pO2 Sodium Potassium Chloride Carbon Dioxide 21 L D BUN 48 H Creatinine 4.6 H Glucose 104 H POC Glucose 134 H Lactic Acid Calcium 8.1 L Phosphorus Magnesium TIBC Ferritin Total Bilirubin 4.70 H Direct Bilirubin AST 43 H Ammonia Lactate Dehydrogenase NT-Pro-B Natriuret Pep Total Protein 5.8 L Albumin 3.1 L Lipase Vitamin B12 Urine WBC (Auto) Urine Creatinine Ur Creatinine 24 Hour Fluid Glucose Fluid Total Protein Digoxin Crossmatch 12/13/17 12/13/17 12/13/17 08:45 12:25 14:03 RBC Hgb Hct MCV MCH MCHC RDW Plt Count Lymph % (Auto) [place] % (Auto) Baso % (Auto) Lymph # [place] # Baso # Seg Neutrophils % Seg Neuts % (Manual) Lymphocytes % (Manual) Monocytes % (Manual) Eosinophils % (Manual) Basophils % (Manual) Nucleated RBC % Lymphocytes # (Manual) Monocytes # (Manual) Eosinophils # (Manual) Basophils # (Manual) PT 20.5 H INR 1.65 H APTT Fibrinogen D-Dimer POC ABG pH POC ABG pCO2 POC ABG pO2 Sodium Potassium Chloride Carbon Dioxide BUN Creatinine Glucose POC Glucose 112 H Lactic Acid 3.70 H* Calcium Phosphorus Magnesium TIBC Ferritin Total Bilirubin Direct Bilirubin AST Ammonia Lactate Dehydrogenase NT-Pro-B Natriuret Pep Total Protein Albumin Lipase Vitamin B12 Urine WBC (Auto) Urine Creatinine Ur Creatinine 24 Hour Fluid Glucose Fluid Total Protein Digoxin Crossmatch 12/13/17 12/13/17 12/13/17 14:03 18:52 21:09 RBC Hgb Hct MCV MCH MCHC RDW Plt Count Lymph % (Auto) [place] % (Auto) Baso % (Auto) Lymph # [place] # Baso # Seg Neutrophils % Seg Neuts % (Manual) Lymphocytes % (Manual) Monocytes % (Manual) Eosinophils % (Manual) Basophils % (Manual) Nucleated RBC % Lymphocytes # (Manual) Monocytes # (Manual) Eosinophils # (Manual) Basophils # (Manual) PT INR APTT Fibrinogen D-Dimer POC ABG pH POC ABG pCO2 POC ABG pO2 Sodium Potassium Chloride Carbon Dioxide BUN Creatinine Glucose POC Glucose 110 H Lactic Acid 4.00 H* Calcium Phosphorus Magnesium TIBC Ferritin Total Bilirubin Direct Bilirubin AST Ammonia 87.0 H Lactate Dehydrogenase NT-Pro-B Natriuret Pep Total Protein Albumin Lipase Vitamin B12 Urine WBC (Auto) Urine Creatinine Ur Creatinine 24 Hour Fluid Glucose Fluid Total Protein Digoxin Crossmatch 12/14/17 12/14/17 12/14/17 00:25 03:30 03:30 RBC 2.29 L Hgb 7.3 L Hct 20.7 L MCV MCH MCHC 35 H RDW 16.2 H Plt Count 84 L Lymph % (Auto) 12.8 L Piatt % (Auto) 8.3 H Baso % (Auto) Lymph # 0.6 L Piatt # Baso # Seg Neutrophils % 77.2 H Seg Neuts % (Manual) Lymphocytes % (Manual) Monocytes % (Manual) Eosinophils % (Manual) Basophils % (Manual) Nucleated RBC % Lymphocytes # (Manual) Monocytes # (Manual) Eosinophils # (Manual) Basophils # (Manual) PT INR APTT Fibrinogen D-Dimer POC ABG pH POC ABG pCO2 POC ABG pO2 Sodium Potassium Chloride 96.1 L Carbon Dioxide BUN 48 H Creatinine 4.6 H Glucose 125 H POC Glucose 131 H Lactic Acid Calcium 7.9 L Phosphorus Magnesium TIBC Ferritin Total Bilirubin 4.70 H Direct Bilirubin AST 45 H Ammonia Lactate Dehydrogenase NT-Pro-B Natriuret Pep Total Protein 6.1 L Albumin 3.4 L Lipase Vitamin B12 Urine WBC (Auto) Urine Creatinine Ur Creatinine 24 Hour Fluid Glucose Fluid Total Protein Digoxin Crossmatch 12/14/17 12/14/17 12/14/17 05:31 12:26 12:55 RBC Hgb Hct MCV MCH MCHC RDW Plt Count Lymph % (Auto) [place] % (Auto) Baso % (Auto) Lymph # [place] # Baso # Seg Neutrophils % Seg Neuts % (Manual) Lymphocytes % (Manual) Monocytes % (Manual) Eosinophils % (Manual) Basophils % (Manual) Nucleated RBC % Lymphocytes # (Manual) Monocytes # (Manual) Eosinophils # (Manual) Basophils # (Manual) PT INR APTT Fibrinogen D-Dimer POC ABG pH POC ABG pCO2 POC ABG pO2 Sodium Potassium Chloride Carbon Dioxide BUN Creatinine Glucose POC Glucose 125 H 117 H Lactic Acid 3.40 H* Calcium Phosphorus Magnesium TIBC Ferritin Total Bilirubin Direct Bilirubin AST Ammonia Lactate Dehydrogenase NT-Pro-B Natriuret Pep Total Protein Albumin Lipase Vitamin B12 Urine WBC (Auto) Urine Creatinine Ur Creatinine 24 Hour Fluid Glucose Fluid Total Protein Digoxin Crossmatch 12/14/17 12/14/17 12/14/17 15:26 17:26 18:07 RBC Hgb Hct MCV MCH MCHC RDW Plt Count Lymph % (Auto) [place] % (Auto) Baso % (Auto) Lymph # [place] # Baso # Seg Neutrophils % Seg Neuts % (Manual) Lymphocytes % (Manual) Monocytes % (Manual) Eosinophils % (Manual) Basophils % (Manual) Nucleated RBC % Lymphocytes # (Manual) Monocytes # (Manual) Eosinophils # (Manual) Basophils # (Manual) PT INR APTT Fibrinogen D-Dimer POC ABG pH POC ABG pCO2 POC ABG pO2 Sodium Potassium Chloride Carbon Dioxide BUN Creatinine Glucose POC Glucose 143 H Lactic Acid 4.00 H* 3.90 H* Calcium Phosphorus Magnesium TIBC Ferritin Total Bilirubin Direct Bilirubin AST Ammonia Lactate Dehydrogenase NT-Pro-B Natriuret Pep Total Protein Albumin Lipase Vitamin B12 Urine WBC (Auto) Urine Creatinine Ur Creatinine 24 Hour Fluid Glucose Fluid Total Protein Digoxin Crossmatch 12/14/17 12/15/17 12/15/17 Unknown 00:08 04:51 RBC 2.27 L Hgb 7.3 L Hct 20.7 L MCV MCH MCHC 35 H RDW 16.1 H Plt Count 92 L Lymph % (Auto) 12.5 L [place] % (Auto) 10.4 H Baso % (Auto) Lymph # 0.6 L [place]att # Baso # Seg Neutrophils % 74.7 H Seg Neuts % (Manual) Lymphocytes % (Manual) Monocytes % (Manual) Eosinophils % (Manual) Basophils % (Manual) Nucleated RBC % Lymphocytes # (Manual) Monocytes # (Manual) Eosinophils # (Manual) Basophils # (Manual) PT INR APTT Fibrinogen D-Dimer POC ABG pH POC ABG pCO2 POC ABG pO2 Sodium Potassium Chloride Carbon Dioxide BUN Creatinine Glucose POC Glucose 124 H Lactic Acid Calcium Phosphorus Magnesium TIBC Ferritin Total Bilirubin Direct Bilirubin AST Ammonia Lactate Dehydrogenase NT-Pro-B Natriuret Pep Total Protein Albumin Lipase Vitamin B12 Urine WBC (Auto) Urine Creatinine 122.5 H Ur Creatinine 24 Hour 0.3 L Fluid Glucose Fluid Total Protein Digoxin Crossmatch 12/15/17 12/15/17 12/15/17 04:51 04:51 05:56 RBC Hgb Hct MCV MCH MCHC RDW Plt Count Lymph % (Auto) [place] % (Auto) Baso % (Auto) Lymph # [place] # Baso # Seg Neutrophils % Seg Neuts % (Manual) Lymphocytes % (Manual) Monocytes % (Manual) Eosinophils % (Manual) Basophils % (Manual) Nucleated RBC % Lymphocytes # (Manual) Monocytes # (Manual) Eosinophils # (Manual) Basophils # (Manual) PT INR APTT Fibrinogen D-Dimer POC ABG pH POC ABG pCO2 POC ABG pO2 Sodium Potassium 3.5 L Chloride 92.6 L Carbon Dioxide BUN 50 H Creatinine 4.8 H Glucose 141 H POC Glucose 143 H Lactic Acid Calcium 7.9 L Phosphorus Magnesium TIBC Ferritin Total Bilirubin 3.60 H Direct Bilirubin AST 44 H Ammonia 24.0 L Lactate Dehydrogenase NT-Pro-B Natriuret Pep Total Protein 6.1 L Albumin 3.8 L Lipase Vitamin B12 Urine WBC (Auto) Urine Creatinine Ur Creatinine 24 Hour Fluid Glucose Fluid Total Protein Digoxin Crossmatch 12/15/17 12/15/17 12/16/17 12:17 23:10 07:04 RBC Hgb Hct MCV MCH MCHC RDW Plt Count Lymph % (Auto) [place] % (Auto) Baso % (Auto) Lymph # [place] # Baso # Seg Neutrophils % Seg Neuts % (Manual) Lymphocytes % (Manual) Monocytes % (Manual) Eosinophils % (Manual) Basophils % (Manual) Nucleated RBC % Lymphocytes # (Manual) Monocytes # (Manual) Eosinophils # (Manual) Basophils # (Manual) PT INR APTT Fibrinogen D-Dimer POC ABG pH POC ABG pCO2 POC ABG pO2 Sodium Potassium Chloride Carbon Dioxide BUN Creatinine Glucose POC Glucose 127 H 157 H 147 H Lactic Acid Calcium Phosphorus Magnesium TIBC Ferritin Total Bilirubin Direct Bilirubin AST Ammonia Lactate Dehydrogenase NT-Pro-B Natriuret Pep Total Protein Albumin Lipase Vitamin B12 Urine WBC (Auto) Urine Creatinine Ur Creatinine 24 Hour Fluid Glucose Fluid Total Protein Digoxin Crossmatch 12/16/17 12/16/17 12/16/17 11:35 12:37 12:37 RBC 2.21 L Hgb 6.9 L Hct 20.2 L MCV MCH MCHC RDW 16.2 H Plt Count 50 L Lymph % (Auto) [place]att % (Auto) 9.7 H Baso % (Auto) Lymph # 0.7 L [place] # Baso # Seg Neutrophils % 73.1 H Seg Neuts % (Manual) Lymphocytes % (Manual) Monocytes % (Manual) Eosinophils % (Manual) Basophils % (Manual) Nucleated RBC % Lymphocytes # (Manual) Monocytes # (Manual) Eosinophils # (Manual) Basophils # (Manual) PT INR APTT Fibrinogen D-Dimer POC ABG pH POC ABG pCO2 POC ABG pO2 Sodium Potassium Chloride 88.2 L Carbon Dioxide BUN 52 H Creatinine 5.5 H Glucose 107 H POC Glucose 134 H Lactic Acid Calcium 7.8 L Phosphorus Magnesium TIBC Ferritin Total Bilirubin 2.60 H Direct Bilirubin AST 49 H Ammonia Lactate Dehydrogenase NT-Pro-B Natriuret Pep Total Protein Albumin 3.6 L Lipase Vitamin B12 Urine WBC (Auto) Urine Creatinine Ur Creatinine 24 Hour Fluid Glucose Fluid Total Protein Digoxin Crossmatch 12/16/17 12/16/17 12/16/17 18:06 20:45 23:34 RBC Hgb Hct MCV MCH MCHC RDW Plt Count Lymph % (Auto) [place] % (Auto) Baso % (Auto) Lymph # [place] # Baso # Seg Neutrophils % Seg Neuts % (Manual) Lymphocytes % (Manual) Monocytes % (Manual) Eosinophils % (Manual) Basophils % (Manual) Nucleated RBC % Lymphocytes # (Manual) Monocytes # (Manual) Eosinophils # (Manual) Basophils # (Manual) PT INR APTT Fibrinogen D-Dimer POC ABG pH POC ABG pCO2 POC ABG pO2 Sodium Potassium Chloride Carbon Dioxide BUN Creatinine Glucose POC Glucose 133 H 139 H Lactic Acid Calcium Phosphorus Magnesium TIBC Ferritin Total Bilirubin Direct Bilirubin AST Ammonia Lactate Dehydrogenase NT-Pro-B Natriuret Pep Total Protein Albumin Lipase Vitamin B12 Urine WBC (Auto) Urine Creatinine Ur Creatinine 24 Hour Fluid Glucose Fluid Total Protein Digoxin Crossmatch See Detail 12/17/17 12/17/17 12/17/17 05:27 05:27 06:11 RBC 2.10 L Hgb 6.6 L Hct 19.2 L* MCV MCH MCHC 35 H RDW 16.5 H Plt Count 65 L Lymph % (Auto) 12.6 L [place] % (Auto) 9.6 H Baso % (Auto) Lymph # 0.7 L [place]att # Baso # Seg Neutrophils % 75.8 H Seg Neuts % (Manual) Lymphocytes % (Manual) Monocytes % (Manual) Eosinophils % (Manual) Basophils % (Manual) Nucleated RBC % Lymphocytes # (Manual) Monocytes # (Manual) Eosinophils # (Manual) Basophils # (Manual) PT INR APTT Fibrinogen D-Dimer POC ABG pH POC ABG pCO2 POC ABG pO2 Sodium 135 L Potassium 3.4 L Chloride 84.9 L Carbon Dioxide 33 H BUN 53 H Creatinine 5.9 H Glucose POC Glucose 110 H Lactic Acid Calcium 7.7 L Phosphorus Magnesium TIBC Ferritin Total Bilirubin 2.70 H Direct Bilirubin AST 50 H Ammonia Lactate Dehydrogenase NT-Pro-B Natriuret Pep Total Protein 6.2 L Albumin 3.7 L Lipase Vitamin B12 Urine WBC (Auto) Urine Creatinine Ur Creatinine 24 Hour Fluid Glucose Fluid Total Protein Digoxin Crossmatch 12/17/17 12/18/17 12/18/17 09:34 00:05 05:21 RBC 3.35 L Hgb 10.3 L D Hct 30.4 L D MCV MCH MCHC RDW 16.2 H Plt Count 57 L Lymph % (Auto) 8.0 L [place] % (Auto) 10.9 H Baso % (Auto) Lymph # 0.6 L [place]att # Baso # Seg Neutrophils % 80.2 H Seg Neuts % (Manual) Lymphocytes % (Manual) Monocytes % (Manual) Eosinophils % (Manual) Basophils % (Manual) Nucleated RBC % Lymphocytes # (Manual) Monocytes # (Manual) Eosinophils # (Manual) Basophils # (Manual) PT 23.9 H INR 1.99 H APTT Fibrinogen D-Dimer POC ABG pH POC ABG pCO2 POC ABG pO2 Sodium Potassium Chloride Carbon Dioxide BUN Creatinine Glucose POC Glucose 132 H Lactic Acid Calcium Phosphorus Magnesium TIBC Ferritin Total Bilirubin Direct Bilirubin AST Ammonia Lactate Dehydrogenase NT-Pro-B Natriuret Pep Total Protein Albumin Lipase Vitamin B12 Urine WBC (Auto) Urine Creatinine Ur Creatinine 24 Hour Fluid Glucose Fluid Total Protein Digoxin Crossmatch 12/18/17 12/18/17 12/18/17 05:21 06:16 11:11 RBC Hgb Hct MCV MCH MCHC RDW Plt Count Lymph % (Auto) [place] % (Auto) Baso % (Auto) Lymph # Piatt # Baso # Seg Neutrophils % Seg Neuts % (Manual) Lymphocytes % (Manual) Monocytes % (Manual) Eosinophils % (Manual) Basophils % (Manual) Nucleated RBC % Lymphocytes # (Manual) Monocytes # (Manual) Eosinophils # (Manual) Basophils # (Manual) PT 34.7 H INR 3.17 H APTT Fibrinogen D-Dimer POC ABG pH POC ABG pCO2 POC ABG pO2 Sodium Potassium 3.5 L Chloride 87.1 L Carbon Dioxide BUN 35 H Creatinine 4.3 H Glucose 110 H POC Glucose 116 H Lactic Acid Calcium 8.1 L Phosphorus Magnesium TIBC Ferritin Total Bilirubin 5.10 H Direct Bilirubin AST 56 H Ammonia Lactate Dehydrogenase NT-Pro-B Natriuret Pep Total Protein Albumin Lipase Vitamin B12 Urine WBC (Auto) Urine Creatinine Ur Creatinine 24 Hour Fluid Glucose Fluid Total Protein Digoxin Crossmatch 12/18/17 12/18/17 12/18/17 13:10 17:52 22:04 RBC Hgb Hct MCV MCH MCHC RDW Plt Count Lymph % (Auto) Piatt % (Auto) Baso % (Auto) Lymph # Piatt # Baso # Seg Neutrophils % Seg Neuts % (Manual) Lymphocytes % (Manual) Monocytes % (Manual) Eosinophils % (Manual) Basophils % (Manual) Nucleated RBC % Lymphocytes # (Manual) Monocytes # (Manual) Eosinophils # (Manual) Basophils # (Manual) PT 25.9 H INR 2.20 H APTT Fibrinogen D-Dimer POC ABG pH POC ABG pCO2 POC ABG pO2 Sodium Potassium Chloride Carbon Dioxide BUN Creatinine Glucose POC Glucose 114 H 108 H Lactic Acid Calcium Phosphorus Magnesium TIBC Ferritin Total Bilirubin Direct Bilirubin AST Ammonia Lactate Dehydrogenase NT-Pro-B Natriuret Pep Total Protein Albumin Lipase Vitamin B12 Urine WBC (Auto) Urine Creatinine Ur Creatinine 24 Hour Fluid Glucose Fluid Total Protein Digoxin Crossmatch 12/19/17 12/19/17 12/19/17 05:55 05:55 10:20 RBC 2.85 L Hgb 9.1 L Hct 25.7 L MCV MCH MCHC 35 H RDW 16.4 H Plt Count 61 L Lymph % (Auto) Piatt % (Auto) Baso % (Auto) Lymph # [place] # Baso # Seg Neutrophils % Seg Neuts % (Manual) Lymphocytes % (Manual) Monocytes % (Manual) Eosinophils % (Manual) Basophils % (Manual) Nucleated RBC % Lymphocytes # (Manual) Monocytes # (Manual) Eosinophils # (Manual) Basophils # (Manual) PT INR APTT Fibrinogen D-Dimer POC ABG pH POC ABG pCO2 POC ABG pO2 Sodium Potassium Chloride 94.5 L Carbon Dioxide BUN 27 H Creatinine 3.6 H Glucose POC Glucose 131 H Lactic Acid Calcium 8.2 L Phosphorus Magnesium TIBC Ferritin Total Bilirubin Direct Bilirubin AST Ammonia Lactate Dehydrogenase NT-Pro-B Natriuret Pep Total Protein Albumin Lipase Vitamin B12 Urine WBC (Auto) Urine Creatinine Ur Creatinine 24 Hour Fluid Glucose Fluid Total Protein Digoxin Crossmatch 12/19/17 12/21/17 12/21/17 11:46 05:26 05:26 RBC 2.60 L Hgb 8.4 L Hct 23.9 L MCV MCH MCHC 35 H RDW 16.2 H Plt Count 57 L Lymph % (Auto) 12.4 L Piatt % (Auto) 10.7 H Baso % (Auto) Lymph # Piatt # 1.0 H Baso # Seg Neutrophils % 74.8 H Seg Neuts % (Manual) Lymphocytes % (Manual) Monocytes % (Manual) Eosinophils % (Manual) Basophils % (Manual) Nucleated RBC % Lymphocytes # (Manual) Monocytes # (Manual) Eosinophils # (Manual) Basophils # (Manual) PT 26.2 H INR 2.23 H APTT Fibrinogen D-Dimer POC ABG pH POC ABG pCO2 POC ABG pO2 Sodium Potassium Chloride Carbon Dioxide BUN Creatinine Glucose POC Glucose Lactic Acid Calcium Phosphorus Magnesium TIBC Ferritin Total Bilirubin Direct Bilirubin AST Ammonia Lactate Dehydrogenase NT-Pro-B Natriuret Pep Total Protein Albumin Lipase Vitamin B12 Urine WBC (Auto) Urine Creatinine Ur Creatinine 24 Hour Fluid Glucose Fluid Total Protein Digoxin 0.4 L Crossmatch 12/21/17 12/23/17 12/24/17 09:40 08:15 04:51 RBC 1.80 L Hgb 5.9 L* Hct 17.0 L* D MCV MCH 33 H MCHC 35 H RDW 16.5 H Plt Count 53 L Lymph % (Auto) Piatt % (Auto) Baso % (Auto) Lymph # [place] # Baso # Seg Neutrophils % Seg Neuts % (Manual) Lymphocytes % (Manual) Monocytes % (Manual) Eosinophils % (Manual) Basophils % (Manual) Nucleated RBC % Lymphocytes # (Manual) Monocytes # (Manual) Eosinophils # (Manual) Basophils # (Manual) PT 26.4 H 27.9 H INR 2.26 H 2.42 H APTT Fibrinogen D-Dimer POC ABG pH POC ABG pCO2 POC ABG pO2 Sodium Potassium Chloride Carbon Dioxide BUN Creatinine Glucose POC Glucose Lactic Acid Calcium Phosphorus Magnesium TIBC Ferritin Total Bilirubin Direct Bilirubin AST Ammonia Lactate Dehydrogenase NT-Pro-B Natriuret Pep Total Protein Albumin Lipase Vitamin B12 Urine WBC (Auto) Urine Creatinine Ur Creatinine 24 Hour Fluid Glucose Fluid Total Protein Digoxin Crossmatch 12/24/17 12/24/17 12/24/17 04:51 06:25 08:20 RBC Hgb Hct MCV MCH MCHC RDW Plt Count Lymph % (Auto) Piatt % (Auto) Baso % (Auto) Lymph # [place] # Baso # Seg Neutrophils % Seg Neuts % (Manual) Lymphocytes % (Manual) Monocytes % (Manual) Eosinophils % (Manual) Basophils % (Manual) Nucleated RBC % Lymphocytes # (Manual) Monocytes # (Manual) Eosinophils # (Manual) Basophils # (Manual) PT 40.8 H INR 3.87 H APTT Fibrinogen D-Dimer POC ABG pH POC ABG pCO2 POC ABG pO2 Sodium Potassium 3.5 L Chloride Carbon Dioxide BUN 21 H Creatinine 4.4 H Glucose POC Glucose Lactic Acid Calcium 8.1 L Phosphorus Magnesium TIBC Ferritin Total Bilirubin Direct Bilirubin AST Ammonia Lactate Dehydrogenase NT-Pro-B Natriuret Pep Total Protein Albumin Lipase Vitamin B12 Urine WBC (Auto) Urine Creatinine Ur Creatinine 24 Hour Fluid Glucose Fluid Total Protein Digoxin Crossmatch See Detail 12/24/17 12/24/17 12/25/17 19:21 19:21 05:27 RBC 2.31 L Hgb 7.3 L 7.4 L Hct 20.4 L 21.3 L MCV MCH MCHC 35 H RDW 15.9 H Plt Count 39 L Lymph % (Auto) Piatt % (Auto) 10.8 H Baso % (Auto) Lymph # 0.9 L Piatt # Baso # Seg Neutrophils % 71.9 H Seg Neuts % (Manual) Lymphocytes % (Manual) Monocytes % (Manual) Eosinophils % (Manual) Basophils % (Manual) Nucleated RBC % Lymphocytes # (Manual) Monocytes # (Manual) Eosinophils # (Manual) Basophils # (Manual) PT 21.3 H INR 1.73 H APTT Fibrinogen D-Dimer POC ABG pH POC ABG pCO2 POC ABG pO2 Sodium Potassium Chloride Carbon Dioxide BUN Creatinine Glucose POC Glucose Lactic Acid Calcium Phosphorus Magnesium TIBC Ferritin Total Bilirubin Direct Bilirubin AST Ammonia Lactate Dehydrogenase NT-Pro-B Natriuret Pep Total Protein Albumin Lipase Vitamin B12 Urine WBC (Auto) Urine Creatinine Ur Creatinine 24 Hour Fluid Glucose Fluid Total Protein Digoxin Crossmatch 12/25/17 12/25/17 12/25/17 05:27 05:27 12:24 RBC Hgb Hct MCV MCH MCHC RDW Plt Count Lymph % (Auto) Piatt % (Auto) Baso % (Auto) Lymph # [place] # Baso # Seg Neutrophils % Seg Neuts % (Manual) Lymphocytes % (Manual) Monocytes % (Manual) Eosinophils % (Manual) Basophils % (Manual) Nucleated RBC % Lymphocytes # (Manual) Monocytes # (Manual) Eosinophils # (Manual) Basophils # (Manual) PT 22.1 H INR 1.81 H APTT Fibrinogen D-Dimer POC ABG pH POC ABG pCO2 POC ABG pO2 Sodium Potassium 3.5 L Chloride 96.7 L Carbon Dioxide BUN Creatinine 3.2 H Glucose POC Glucose 140 H Lactic Acid Calcium 8.1 L Phosphorus Magnesium TIBC Ferritin Total Bilirubin Direct Bilirubin AST Ammonia Lactate Dehydrogenase NT-Pro-B Natriuret Pep Total Protein Albumin Lipase Vitamin B12 Urine WBC (Auto) Urine Creatinine Ur Creatinine 24 Hour Fluid Glucose Fluid Total Protein Digoxin Crossmatch 12/26/17 12/26/17 12/27/17 05:59 05:59 06:34 RBC 2.01 L 2.52 L Hgb 6.6 L 8.2 L Hct 18.6 L* 23.2 L MCV MCH 33 H MCHC 35 H 35 H RDW 16.6 H 15.3 H Plt Count 45 L 39 L Lymph % (Auto) 11.6 L Piatt % (Auto) 10.3 H 11.2 H Baso % (Auto) Lymph # 1.0 L 0.7 L Piatt # Baso # Seg Neutrophils % 72.2 H 75.4 H Seg Neuts % (Manual) Lymphocytes % (Manual) Monocytes % (Manual) Eosinophils % (Manual) Basophils % (Manual) Nucleated RBC % Lymphocytes # (Manual) Monocytes # (Manual) Eosinophils # (Manual) Basophils # (Manual) PT INR APTT Fibrinogen D-Dimer POC ABG pH POC ABG pCO2 POC ABG pO2 Sodium Potassium 3.3 L Chloride Carbon Dioxide BUN Creatinine 3.8 H Glucose 110 H POC Glucose Lactic Acid Calcium Phosphorus 2.40 L Magnesium 1.40 L TIBC Ferritin Total Bilirubin 7.10 H Direct Bilirubin AST 73 H Ammonia Lactate Dehydrogenase NT-Pro-B Natriuret Pep Total Protein Albumin 3.5 L Lipase Vitamin B12 Urine WBC (Auto) Urine Creatinine Ur Creatinine 24 Hour Fluid Glucose Fluid Total Protein Digoxin Crossmatch 12/27/17 12/27/17 12/27/17 06:34 06:34 06:34 RBC Hgb Hct MCV MCH MCHC RDW Plt Count Lymph % (Auto) [place] % (Auto) Baso % (Auto) Lymph # [place] # Baso # Seg Neutrophils % Seg Neuts % (Manual) Lymphocytes % (Manual) Monocytes % (Manual) Eosinophils % (Manual) Basophils % (Manual) Nucleated RBC % Lymphocytes # (Manual) Monocytes # (Manual) Eosinophils # (Manual) Basophils # (Manual) PT INR APTT Fibrinogen D-Dimer POC ABG pH POC ABG pCO2 POC ABG pO2 Sodium Potassium 3.3 L Chloride 95.4 L Carbon Dioxide BUN Creatinine 2.6 H Glucose 112 H POC Glucose Lactic Acid Calcium 8.1 L Phosphorus Magnesium TIBC 77 L Ferritin > 2000.0 H Total Bilirubin 8.00 H Direct Bilirubin AST 89 H Ammonia Lactate Dehydrogenase 302 H NT-Pro-B Natriuret Pep Total Protein Albumin 3.7 L Lipase Vitamin B12 Urine WBC (Auto) Urine Creatinine Ur Creatinine 24 Hour Fluid Glucose Fluid Total Protein Digoxin Crossmatch 12/28/17 12/28/17 12/29/17 06:24 09:00 00:30 RBC 2.25 L Hgb 7.5 L Hct 21.1 L MCV MCH 33 H MCHC 35 H RDW 16.2 H Plt Count 78 L D Lymph % (Auto) 12.5 L Piatt % (Auto) 12.3 H Baso % (Auto) Lymph # 0.9 L Piatt # 0.9 H Baso # Seg Neutrophils % 73.3 H Seg Neuts % (Manual) Lymphocytes % (Manual) Monocytes % (Manual) Eosinophils % (Manual) Basophils % (Manual) Nucleated RBC % Lymphocytes # (Manual) Monocytes # (Manual) Eosinophils # (Manual) Basophils # (Manual) PT 23.7 H INR 1.97 H APTT 53.1 H Fibrinogen D-Dimer POC ABG pH POC ABG pCO2 POC ABG pO2 Sodium Potassium Chloride Carbon Dioxide BUN Creatinine Glucose POC Glucose 148 H Lactic Acid Calcium Phosphorus Magnesium TIBC Ferritin Total Bilirubin Direct Bilirubin AST Ammonia Lactate Dehydrogenase NT-Pro-B Natriuret Pep Total Protein Albumin Lipase Vitamin B12 Urine WBC (Auto) Urine Creatinine Ur Creatinine 24 Hour Fluid Glucose Fluid Total Protein Digoxin Crossmatch 12/29/17 12/29/17 12/29/17 00:34 03:59 03:59 RBC 2.19 L Hgb 7.2 L Hct 20.7 L MCV 95 H MCH 33 H MCHC 35 H RDW 16.9 H Plt Count 75 L Lymph % (Auto) [place]att % (Auto) 10.8 H Baso % (Auto) Lymph # [place] # Baso # Seg Neutrophils % 70.8 H Seg Neuts % (Manual) Lymphocytes % (Manual) Monocytes % (Manual) Eosinophils % (Manual) Basophils % (Manual) Nucleated RBC % Lymphocytes # (Manual) Monocytes # (Manual) Eosinophils # (Manual) Basophils # (Manual) PT 25.7 H INR 2.18 H APTT Fibrinogen D-Dimer POC ABG pH POC ABG pCO2 POC ABG pO2 Sodium Potassium Chloride Carbon Dioxide BUN Creatinine 2.3 H Glucose 111 H POC Glucose Lactic Acid Calcium Phosphorus Magnesium TIBC Ferritin Total Bilirubin 8.20 H Direct Bilirubin AST 66 H Ammonia Lactate Dehydrogenase NT-Pro-B Natriuret Pep Total Protein Albumin 3.5 L Lipase Vitamin B12 Urine WBC (Auto) Urine Creatinine Ur Creatinine 24 Hour Fluid Glucose Fluid Total Protein Digoxin Crossmatch 12/29/17 12/30/17 12/30/17 07:35 07:51 08:27 RBC 1.97 L Hgb 6.7 L Hct 18.8 L* MCV 96 H MCH 34 H MCHC 36 H RDW 17.6 H Plt Count 76 L Lymph % (Auto) Piatt % (Auto) 10.5 H Baso % (Auto) Lymph # 1.0 L [place]att # Baso # Seg Neutrophils % 72.4 H Seg Neuts % (Manual) Lymphocytes % (Manual) Monocytes % (Manual) Eosinophils % (Manual) Basophils % (Manual) Nucleated RBC % Lymphocytes # (Manual) Monocytes # (Manual) Eosinophils # (Manual) Basophils # (Manual) PT INR APTT Fibrinogen D-Dimer POC ABG pH POC ABG pCO2 POC ABG pO2 Sodium Potassium Chloride Carbon Dioxide BUN Creatinine Glucose POC Glucose 113 H Lactic Acid Calcium Phosphorus Magnesium 1.50 L TIBC Ferritin Total Bilirubin Direct Bilirubin AST Ammonia Lactate Dehydrogenase NT-Pro-B Natriuret Pep Total Protein Albumin Lipase Vitamin B12 Urine WBC (Auto) Urine Creatinine Ur Creatinine 24 Hour Fluid Glucose Fluid Total Protein Digoxin Crossmatch 12/30/17 12/31/17 12/31/17 08:44 12:59 12:59 RBC 2.49 L Hgb 8.3 L Hct 23.0 L MCV MCH 33 H MCHC 36 H RDW 17.5 H Plt Count 69 L Lymph % (Auto) Piatt % (Auto) 13.0 H Baso % (Auto) 1.9 H Lymph # 1.1 L Piatt # 0.9 H Baso # Seg Neutrophils % Seg Neuts % (Manual) Lymphocytes % (Manual) Monocytes % (Manual) Eosinophils % (Manual) Basophils % (Manual) Nucleated RBC % Lymphocytes # (Manual) Monocytes # (Manual) Eosinophils # (Manual) Basophils # (Manual) PT INR APTT Fibrinogen D-Dimer POC ABG pH POC ABG pCO2 POC ABG pO2 Sodium Potassium Chloride Carbon Dioxide BUN 21 H Creatinine 3.8 H D Glucose 114 H POC Glucose Lactic Acid Calcium Phosphorus Magnesium TIBC Ferritin Total Bilirubin 8.30 H Direct Bilirubin AST 46 H Ammonia Lactate Dehydrogenase NT-Pro-B Natriuret Pep Total Protein Albumin Lipase Vitamin B12 Urine WBC (Auto) Urine Creatinine Ur Creatinine 24 Hour Fluid Glucose Fluid Total Protein Digoxin Crossmatch See Detail 12/31/17 12/31/17 01/01/18 12:59 Unknown 05:27 RBC 2.69 L Hgb 9.1 L Hct 25.1 L MCV MCH 34 H MCHC 36 H RDW 17.5 H Plt Count 64 L Lymph % (Auto) 12.5 L Piatt % (Auto) 14.4 H Baso % (Auto) Lymph # 0.9 L Piatt # 1.1 H Baso # Seg Neutrophils % 70.4 H Seg Neuts % (Manual) Lymphocytes % (Manual) Monocytes % (Manual) Eosinophils % (Manual) Basophils % (Manual) Nucleated RBC % Lymphocytes # (Manual) Monocytes # (Manual) Eosinophils # (Manual) Basophils # (Manual) PT 19.7 H INR 1.57 H APTT Fibrinogen D-Dimer POC ABG pH POC ABG pCO2 POC ABG pO2 Sodium Potassium Chloride Carbon Dioxide BUN Creatinine Glucose POC Glucose Lactic Acid Calcium Phosphorus Magnesium TIBC Ferritin Total Bilirubin Direct Bilirubin AST Ammonia Lactate Dehydrogenase NT-Pro-B Natriuret Pep Total Protein Albumin Lipase Vitamin B12 Urine WBC (Auto) Urine Creatinine Ur Creatinine 24 Hour Fluid Glucose 124 H Fluid Total Protein < 3.0 L Digoxin Crossmatch 01/01/18 01/01/18 01/03/18 05:27 05:27 06:24 RBC 2.62 L Hgb 8.7 L Hct 25.6 L MCV 98 H MCH 33 H MCHC RDW 19.4 H Plt Count 55 L Lymph % (Auto) Piatt % (Auto) 10.9 H Baso % (Auto) 2.7 H Lymph # 1.1 L Piatt # 0.9 H Baso # 0.2 H Seg Neutrophils % Seg Neuts % (Manual) Lymphocytes % (Manual) Monocytes % (Manual) Eosinophils % (Manual) Basophils % (Manual) Nucleated RBC % Lymphocytes # (Manual) Monocytes # (Manual) Eosinophils # (Manual) Basophils # (Manual) PT 22.1 H INR 1.81 H APTT Fibrinogen D-Dimer POC ABG pH POC ABG pCO2 POC ABG pO2 Sodium Potassium Chloride Carbon Dioxide BUN Creatinine 2.8 H Glucose POC Glucose Lactic Acid Calcium Phosphorus Magnesium TIBC Ferritin Total Bilirubin 9.20 H Direct Bilirubin AST 49 H Ammonia Lactate Dehydrogenase NT-Pro-B Natriuret Pep Total Protein Albumin 3.8 L Lipase Vitamin B12 Urine WBC (Auto) Urine Creatinine Ur Creatinine 24 Hour Fluid Glucose Fluid Total Protein Digoxin Crossmatch 01/03/18 01/03/18 01/05/18 06:24 06:24 04:47 RBC 2.75 L Hgb 9.2 L Hct 27.3 L MCV 99 H MCH 34 H MCHC RDW 23.5 H Plt Count 55 L Lymph % (Auto) [place]att % (Auto) 14.3 H Baso % (Auto) 2.3 H Lymph # Piatt # 1.0 H Baso # 0.2 H Seg Neutrophils % Seg Neuts % (Manual) Lymphocytes % (Manual) Monocytes % (Manual) Eosinophils % (Manual) Basophils % (Manual) Nucleated RBC % Lymphocytes # (Manual) Monocytes # (Manual) Eosinophils # (Manual) Basophils # (Manual) PT 24.1 H INR 2.01 H APTT Fibrinogen D-Dimer POC ABG pH POC ABG pCO2 POC ABG pO2 Sodium Potassium Chloride Carbon Dioxide BUN Creatinine Glucose POC Glucose Lactic Acid Calcium Phosphorus Magnesium TIBC Ferritin Total Bilirubin 9.00 H Direct Bilirubin 2.7 H AST 50 H Ammonia Lactate Dehydrogenase NT-Pro-B Natriuret Pep Total Protein Albumin 3.6 L Lipase Vitamin B12 Urine WBC (Auto) Urine Creatinine Ur Creatinine 24 Hour Fluid Glucose Fluid Total Protein Digoxin Crossmatch 01/05/18 01/05/18 01/05/18 04:47 04:47 14:57 RBC Hgb Hct MCV MCH MCHC RDW Plt Count Lymph % (Auto) [place]att % (Auto) Baso % (Auto) Lymph # [place]att # Baso # Seg Neutrophils % Seg Neuts % (Manual) Lymphocytes % (Manual) Monocytes % (Manual) Eosinophils % (Manual) Basophils % (Manual) Nucleated RBC % Lymphocytes # (Manual) Monocytes # (Manual) Eosinophils # (Manual) Basophils # (Manual) PT 24.3 H INR 2.04 H APTT Fibrinogen D-Dimer POC ABG pH POC ABG pCO2 POC ABG pO2 Sodium Potassium Chloride Carbon Dioxide BUN Creatinine 2.6 H Glucose 117 H POC Glucose Lactic Acid Calcium Phosphorus Magnesium TIBC Ferritin Total Bilirubin 9.50 H Direct Bilirubin AST 50 H Ammonia 75.0 H Lactate Dehydrogenase NT-Pro-B Natriuret Pep Total Protein Albumin 3.7 L Lipase Vitamin B12 Urine WBC (Auto) Urine Creatinine Ur Creatinine 24 Hour Fluid Glucose Fluid Total Protein Digoxin Crossmatch 01/06/18 01/06/1801/07/18 02:35 02:35 09:29 RBC 2.75 L Hgb 9.2 L Hct 27.7 L MCV 101 H MCH 34 H MCHC RDW 25.1 H Plt Count 46 L Lymph % (Auto) [place]att % (Auto) Baso % (Auto) Lymph # [place]att # Baso # Seg Neutrophils % Seg Neuts % (Manual) Lymphocytes % (Manual) 13.0 L Monocytes % (Manual) Eosinophils % (Manual) 7.0 H Basophils % (Manual) 2.0 H Nucleated RBC % Lymphocytes # (Manual) 1.0 L Monocytes # (Manual) Eosinophils # (Manual) 0.6 H Basophils # (Manual) 0.2 H PT 21.3 H INR 1.73 H APTT 41.2 H Fibrinogen D-Dimer POC ABG pH POC ABG pCO2 POC ABG pO2 Sodium Potassium Chloride 96.3 L Carbon Dioxide 21 L BUN 23 H Creatinine 2.9 H Glucose POC Glucose Lactic Acid Calcium Phosphorus Magnesium TIBC Ferritin Total Bilirubin 9.80 H Direct Bilirubin AST 65 H Ammonia Lactate Dehydrogenase NT-Pro-B Natriuret Pep Total Protein Albumin 3.5 L Lipase Vitamin B12 Urine WBC (Auto) Urine Creatinine Ur Creatinine 24 Hour Fluid Glucose Fluid Total Protein Digoxin Crossmatch 01/08/18 01/09/18 01/09/18 06:15 05:16 10:18 RBC Hgb Hct MCV MCH MCHC RDW Plt Count Lymph % (Auto) Piatt % (Auto) Baso % (Auto) Lymph # Piatt # Baso # Seg Neutrophils % Seg Neuts % (Manual) Lymphocytes % (Manual) Monocytes % (Manual) Eosinophils % (Manual) Basophils % (Manual) Nucleated RBC % Lymphocytes # (Manual) Monocytes # (Manual) Eosinophils # (Manual) Basophils # (Manual) PT 22.6 H 24.2 H INR 1.86 H 2.02 H APTT 49.5 H Fibrinogen D-Dimer POC ABG pH POC ABG pCO2 POC ABG pO2 Sodium Potassium Chloride Carbon Dioxide BUN Creatinine Glucose POC Glucose Lactic Acid Calcium Phosphorus Magnesium TIBC Ferritin Total Bilirubin Direct Bilirubin AST Ammonia 22.0 L Lactate Dehydrogenase NT-Pro-B Natriuret Pep Total Protein Albumin Lipase Vitamin B12 Urine WBC (Auto) Urine Creatinine Ur Creatinine 24 Hour Fluid Glucose Fluid Total Protein Digoxin Crossmatch 01/10/18 01/10/18 01/11/18 05:01 05:01 05:46 RBC 2.40 L 2.40 L Hgb 8.4 L 8.5 L Hct 24.5 L 24.8 L MCV 102 H 104 H MCH 35 H 36 H MCHC RDW 27.3 H 27.9 H Plt Count 56 L 70 L Lymph % (Auto) [place]att % (Auto) Baso % (Auto) Lymph # [place]att # Baso # Seg Neutrophils % Seg Neuts % (Manual) 78.0 H 90.0 H Lymphocytes % (Manual) 5.0 L 5.0 L Monocytes % (Manual) 17.0 H Eosinophils % (Manual) Basophils % (Manual) Nucleated RBC % 1.0 H Lymphocytes # (Manual) 0.4 L 0.4 L Monocytes # (Manual) 1.4 H Eosinophils # (Manual) Basophils # (Manual) PT INR APTT Fibrinogen D-Dimer POC ABG pH POC ABG pCO2 POC ABG pO2 Sodium Potassium Chloride 94.8 L Carbon Dioxide BUN 21 H Creatinine 2.6 H Glucose POC Glucose Lactic Acid Calcium Phosphorus Magnesium TIBC Ferritin Total Bilirubin 11.40 H Direct Bilirubin AST 86 H Ammonia Lactate Dehydrogenase NT-Pro-B Natriuret Pep Total Protein Albumin 3.6 L Lipase Vitamin B12 Urine WBC (Auto) Urine Creatinine Ur Creatinine 24 Hour Fluid Glucose Fluid Total Protein Digoxin Crossmatch 01/11/18 01/11/18 05:46 05:46 RBC Hgb Hct MCV MCH MCHC RDW Plt Count Lymph % (Auto) Piatt % (Auto) Baso % (Auto) Lymph # [place]att # Baso # Seg Neutrophils % Seg Neuts % (Manual) Lymphocytes % (Manual) Monocytes % (Manual) Eosinophils % (Manual) Basophils % (Manual) Nucleated RBC % Lymphocytes # (Manual) Monocytes # (Manual) Eosinophils # (Manual) Basophils # (Manual) PT INR APTT Fibrinogen D-Dimer POC ABG pH POC ABG pCO2 POC ABG pO2 Sodium 136 L Potassium Chloride 94.3 L Carbon Dioxide BUN 28 H Creatinine 3.0 H Glucose 105 H POC Glucose Lactic Acid Calcium Phosphorus Magnesium TIBC Ferritin Total Bilirubin 12.10 H Direct Bilirubin AST 86 H Ammonia 64.0 H Lactate Dehydrogenase NT-Pro-B Natriuret Pep Total Protein Albumin 3.7 L Lipase Vitamin B12 Urine WBC (Auto) Urine Creatinine Ur Creatinine 24 Hour Fluid Glucose Fluid Total Protein Digoxin Crossmatch Allied health notes reviewed: nursing
--- NOTE | 2018-01-11 15:44 | Progress Note ---
Assessment and Plan Assessment and Plan Chronic renal failure initiated on dialysis Anemia s/p transfusion of PRBCs Thrombocytopenia, chronic Hypotension -on midodrine therapy Hx of Cirrhosis with bleeding esophageal varices requiring TIPS 11/2016 Paroxysmal Atrial flutter seen on telemetry currently in sinus rhythm; on beta blockers for suppression as tolerated normal TSH patient is considered not a candidate for anticoagulation given underlying liver cirrhosis. Pleural effusion Echocardiogram shows mild cardiomyopathy with left ventricular ejection fraction 45-50%. There is mild to moderate tricuspid regurgitation, pulmonary artery pressure is 31, and there is a left pleural effusion. Discharge planning issues Arranged at [facility]---HD placement--To follow with [facility] as outpatient Debility-Needs SNF or Home health Physical therapy.If agrees will discharge today or tomorrow Subjective Date of service: 01/11/18 Principal diagnosis: CARMEN on CKD; Acute Encephalopathy; Sepsis Syndrome; Anemia Interval history: Still sob but better Objective - Constitutional Vitals: Vital Signs - 12hr 01/11/18 01/11/18 01/11/18 05:27 09:42 09:51 Temperature 98.1 F 98.1 F Pulse Rate 95 H 75 70 Pulse Rate [ Apical] Respiratory 18 18 Rate Blood Pressure 95/58 93/52 89/57 Blood Pressure 94/64 [Left] O2 Sat by Pulse 91 Oximetry 01/11/18 01/11/18 01/11/18 10:00 10:15 10:30 Temperature Pulse Rate 76 70 71 Pulse Rate [ 74 Apical] Respiratory 18 Rate Blood Pressure 88/55 109/53 98/61 Blood Pressure [Left] O2 Sat by Pulse 96 Oximetry 01/11/18 01/11/18 01/11/18 10:45 11:00 11:15 Temperature Pulse Rate 72 68 72 Pulse Rate [ Apical] Respiratory Rate Blood Pressure 92/43 96/51 83/42 Blood Pressure [Left] O2 Sat by Pulse Oximetry 01/11/18 01/11/18 01/11/18 11:30 11:45 12:00 Temperature Pulse Rate 76 64 73 Pulse Rate [ Apical] Respiratory Rate Blood Pressure 100/60 92/40 92/47 Blood Pressure [Left] O2 Sat by Pulse Oximetry 01/11/18 01/11/18 01/11/18 12:30 12:45 13:00 Temperature 98.1 F Pulse Rate 72 77 74 Pulse Rate [ Apical] Respiratory 18 Rate Blood Pressure 114/52 88/59 113/42 Blood Pressure [Left] O2 Sat by Pulse Oximetry General appearance: Present: no acute distress, well-nourished - EENT Eyes: PERRL, EOM intact ENT: hearing intact, clear oral mucosa Ears: bilateral: normal - Neck Neck: supple, normal ROM - Respiratory Respiratory effort: normal Respiratory: bilateral: CTA - Breasts Breasts: normal - Cardiovascular Heart rate: 80 Rhythm: regular Heart Sounds: Present: S1 & S2. Absent: gallop, rub Extremities: no ischemia, pulses intact, No edema, normal color, Full ROM - Gastrointestinal General gastrointestinal: Present: soft, non-tender, non-distended, normal bowel sounds - Genitourinary Male genitourinary: normal - Integumentary Integumentary: clear, warm, dry - Musculoskeletal Musculoskeletal: 1, strength equal bilaterally - Neurologic Neurologic: moves all extremities - Psychiatric Psychiatric: memory intact, appropriate mood/affect, intact judgment & insight - Allied health notes Allied health notes reviewed: nursing, case management - Labs CBC & Chem 7: 01/11/18 05:46 01/11/18 05:46 Labs: Abnormal lab results 01/11/18 01/11/18 01/11/18 Range/Units 05:46 05:46 05:46 RBC 2.40 L (3.65-5.03) M/mm3 Hgb 8.5 L (11.8-15.2) gm/dl Hct 24.8 L (35.5-45.6) % MCV 104 H (84-94) fl MCH 36 H (28-32) pg RDW 27.9 H (13.2-15.2) % Plt Count 70 L (140-440) K/mm3 Seg Neuts % (Manual) 90.0 H (40.0-70.0) % Lymphocytes % (Manual) 5.0 L (13.4-35.0) % Nucleated RBC % 1.0 H (0.0-0.9) % Lymphocytes # (Manual) 0.4 L (1.2-5.4) K/mm3 Sodium 136 L (137-145) mmol/L Chloride 94.3 L (98-107) mmol/L BUN 28 H (9-20) mg/dL Creatinine 3.0 H (0.8-1.5) mg/dL Glucose 105 H (75-100) mg/dL Total Bilirubin 12.10 H (0.1-1.2) mg/dL AST 86 H (5-40) units/L Ammonia 64.0 H (25-60) umol/L Albumin 3.7 L (3.9-5) g/dL
[2018-01-11] MEDS ORDERED: CEPHULAC PO SCH (18:00)
[2018-01-12] MEDS: CEPHULAC PO SCH (06:40)
[2018-01-12] MEDS: XIFAXAN PO SCH (09:48)
[2018-01-12] MEDS: PROAMATINE PO SCH ×2 (09:48→14:00)
[2018-01-12] MEDS: PROTONIX PO SCH (09:49)
[2018-01-12] MEDS: THERAGRAN-M Tab PO SCH (09:49)
[2018-01-12] MEDS: LOPRESSOR PO SCH (09:51)
--- NOTE | 2018-01-12 10:05 | Progress Note ---
Assessment and Plan - Patient Problems (1) CARMEN (acute kidney injury) Current Visit: Yes Status: Acute (2) Acute hepatic encephalopathy Current Visit: Yes Status: Acute (3) Alcoholic cirrhosis of liver with ascites Current Visit: Yes Status: Acute (4) Congestive heart failure Current Visit: Yes Status: Chronic Qualifiers: Heart failure type: systolic Heart failure chronicity: acute on chronic Qualified Code(s): I50.23 - Acute on chronic systolic (congestive) heart failure Subjective Date of service: 01/12/18 Principal diagnosis: CARMEN on CKD; Acute Encephalopathy; Sepsis Syndrome; Anemia Interval history: CONFUSED,,NO C\O Objective Vital Signs Temp Pulse Pulse Resp BP BP Pulse Ox 01/12/18 09:51 76 98/54 01/12/18 09:15 95 01/12/18 04:41 94/55 01/12/18 04:40 98.5 F 74 18 98/48 95 01/11/18 22:57 98.5 F 77 18 88/54 96/59 95 01/11/18 22:50 77 88/47 01/11/18 22:00 80 77 20 95 01/11/18 19:59 98.3 F 77 88/47 76 L 01/11/18 15:55 97.5 F L 16 84/36 01/11/18 13:00 98.1 F 74 18 113/42 01/11/18 12:45 77 88/59 01/11/18 12:30 72 114/52 01/11/18 12:00 73 92/47 01/11/18 11:45 64 92/40 01/11/18 11:30 76 100/60 01/11/18 11:15 72 83/42 01/11/18 11:00 68 96/51 01/11/18 10:45 72 92/43 01/11/18 10:30 71 98/61 01/11/18 10:15 70 109/53 - Physical Examination General: No Apparent Distress (CONFUSED) HEENT: Positive: PERRL Neck: Positive: neck supple. Negative: JVD/HJR Cardiac: Positive: Reg Rate and Rhythm Lungs: Positive: clear to auscultation Neuro: Positive: Weakness Abdomen: Positive: Soft, Active Bowel Sounds Skin: Positive: Clear Extremities: Absent: edema - Allied health notes Allied health notes reviewed: nursing
--- NOTE | 2018-01-12 10:57 | Progress Note ---
Assessment and Plan Impression: * Oliguric CARMEN secondary to ATN vs HRS --s/p permcath placement 12/17/17 and initiation of dialysis * Sepsis * Severe anemia secondary to ABL * Rectal bleeding * Cirrhosis w/ esophageal varices * Hyperbilirubinemia * Pyuria * Metabolic acidosis, resolved * Hyperkalemia, resolved Plan: * Patient remains oliguric w/o evidence of recovery. Continue dialysis - MWF schedule * Transfusion pRBC per primary team * Consultants' recommendations reviewed, s/p egd * prn prbcs, epogen with hd * Medical management of electrolytes * Avoid potential nephrotoxic agents * Dose medications for renal function * Outpatient HD MWF at [facility] arranged Subjective Date of service: 01/12/18 Principal diagnosis: CARMEN on CKD; Acute Encephalopathy; Sepsis Syndrome; Anemia Interval history: in bed, confused, no acute events Objective - Exam Narrative Exam: General: well-nourished, well-developed, no acute distress Head: Normocephalic, atraumatic Eyes: normal sclera ENT: Mucous membranes are pale and dry Neck: No neck stiffness, no cervical adenopathy Respiratory: Breath sounds equal bilaterally, no wheezing, rales, or rhonchi Cardio: S1 and S2 present, no murmurs, rubs, gallops, capillary refill is delayed Abdomen: Normoactive bowel sounds, soft abdomen, generalized tenderness to palpation present, no rigidity, no guarding or rebound tenderness Chest WALL/Back: No tenderness to palpation of the chest wall, no CVA tenderness with percussion Musc: No pitting edema Skin: No rash Neuro: no facial drooping, normal speech Psych: Normal affect - Vital Signs Vital signs: Vital Signs - 12hr 01/11/18 01/12/18 01/12/18 22:57 04:40 04:41 Temperature 98.5 F 98.5 F Pulse Rate 77 74 Respiratory 18 18 Rate Blood Pressure 88/54 94/55 Blood Pressure 96/59 98/48 [Left] O2 Sat by Pulse 95 95 Oximetry 01/12/18 01/12/18 09:15 09:51 Temperature Pulse Rate 76 Respiratory Rate Blood Pressure 98/54 Blood Pressure [Left] O2 Sat by Pulse 95 Oximetry - Lab 01/11/18 05:46 01/11/18 05:46 Most recent lab results Calcium 9.8 mg/dL (8.4-10.2) 01/11/18 05:46 Phosphorus 2.40 mg/dL (2.5-4.5) L 12/26/17 05:59 Magnesium 1.90 mg/dL (1.7-2.3) 01/11/18 05:46 Urine Creatinine 122.5 mg/dL (0.1-20.0) H 12/14/17 Unknown
--- NOTE | 2018-01-12 14:05 | Progress Note ---
Assessment and Plan Sepsis, possibly SBP Acute encephalopathy Severe anemia Lactic acidosis, multifactorial Cirrhosis with esophageal varices Rectal bleeding Coagulopathy Metabolic acidosis, multifactorial Respiratory alkalosis Nonoliguric CARMEN secondary to prerenal azotemia due to hypoperfusion ATN vs HRS Moderate protein calorie malnutrition - OK to discharge with supplemental oxygen as needed - Azotemia and HD/UF per nephrology prescription (should also reduce pulmonary volume overload) - continue conservative volume management at this point now off vasopressors - continue prn H&H; Transfuse PRBC's for Hb < 7.0 (or as per assisted living executive director) - prn analgesia - 2D ECHO with EF 40-45%; no overt pulm HTN - s/p antibiotic course for sepsis - continue Aspiration precautions - enteral nutrition as tolerated (s/p small bowel feeding tube) - continue chronic home medications, including rifaximin and midodrine - Avoid nephrotoxics and adjust all medications for GFR - continue PPI therapy per GI recs - paracentesis prn per GI recs - Follow up cultures (NGTD) - SCDs for VTE prophylaxis in view of GIB and coagulopathy - Supportive transfusions - discharge planning OK respiratory-messina ..... ' Subjective Date of service: 01/12/18 Principal diagnosis: CARMEN on CKD; Acute Encephalopathy; Sepsis Syndrome; Anemia Interval history: Patient is seen today for: CARMEN on CKD; Acute Encephalopathy; Sepsis Syndrome; Anemia Seen and examined at bedside; 24hour events reviewed; nursing and respiratory care staff consulted; no adverse overnight events reported to me; resting in bed ; off oxygen with O2 Sats 94%; never got thoracentesis done due to coagulopathy but clinically improved overall Objective Vital Signs - 12hr 01/12/18 01/12/18 01/12/18 04:40 04:41 09:15 Temperature 98.5 F Pulse Rate 74 Respiratory 18 Rate Blood Pressure 94/55 Blood Pressure 98/48 [Left] O2 Sat by Pulse 95 95 Oximetry 01/12/18 09:51 Temperature Pulse Rate 76 Respiratory Rate Blood Pressure 98/54 Blood Pressure [Left] O2 Sat by Pulse Oximetry Constitutional: no acute distress, asleep, other (chronically ill looking elderly AAM, normocephalic and atraumatic) Eyes: non-icteric ENT: oropharynx moist, other (mallampati 2) Neck: supple, no lymphadenopathy, no JVD, other (no thyromegaly) Effort: normal Ascultation: Bilateral: diminished breath sounds (bases), rhonchi (scant) Percussion: Bilateral: dull (bases) Cardiovascular: regular rate and rhythm, other (S1,S2, no murmurms, gallops or rubs) Gastrointestinal: normoactive bowel sounds, soft, non-tender, other (distended) Integumentary: rash Extremities: no cyanosis, no edema, pulses normal, no ischemia or petechiae, cool Neurologic: non-focal exam, pupils equal and round, other (Patient sleeping at this time.) Psychiatric: other (Sleeping at this time) CBC and BMP: 01/11/18 05:46 01/11/18 05:46 ABG, PT/INR, D-dimer: ABG POC ABG pH 7.452 (7.35-7.45) H 12/12/17 09:13 POC ABG pCO2 22.2 (35-45) L 12/12/17 09:13 POC ABG pO2 75 (80-105) L 12/12/17 09:13 POC ABG HCO3 15.5 12/12/17 09:13 POC ABG Total CO2 16 12/12/17 09:13 POC ABG O2 Sat 96 12/12/17 09:13 PT/INR, D-dimer PT 24.2 Sec. (12.2-14.9) H 01/09/18 10:18 INR 2.02 (0.87-1.13) H 01/09/18 10:18 D-Dimer 1215.06 ng/mlDDU (0-234) H 12/12/17 19:50 Abnormal lab findings: Abnormal Labs 12/10/17 12/10/17 12/10/17 13:14 13:14 23:05 RBC 2.31 L Hgb 7.3 L Hct 21.5 L MCV MCH MCHC RDW 17.7 H Plt Count 61 L Lymph % (Auto) [place] % (Auto) Baso % (Auto) Lymph # [place] # Baso # Seg Neutrophils % Seg Neuts % (Manual) 81.0 H Lymphocytes % (Manual) 11.0 L Monocytes % (Manual) Eosinophils % (Manual) Basophils % (Manual) Nucleated RBC % Lymphocytes # (Manual) 0.6 L Monocytes # (Manual) Eosinophils # (Manual) Basophils # (Manual) PT INR APTT Fibrinogen D-Dimer POC ABG pH POC ABG pCO2 POC ABG pO2 Sodium 136 L Potassium 5.2 H Chloride Carbon Dioxide 15 L BUN 47 H Creatinine 5.2 H Glucose 127 H POC Glucose Lactic Acid Calcium Phosphorus Magnesium TIBC Ferritin Total Bilirubin 3.50 H Direct Bilirubin AST 71 H Ammonia Lactate Dehydrogenase NT-Pro-B Natriuret Pep Total Protein Albumin 2.6 L Lipase Vitamin B12 Urine WBC (Auto) 10.0 H Urine Creatinine Ur Creatinine 24 Hour Fluid Glucose Fluid Total Protein Digoxin Crossmatch 12/10/17 12/10/17 12/10/17 23:14 23:14 23:14 RBC Hgb Hct MCV MCH MCHC RDW Plt Count Lymph % (Auto) [place] % (Auto) Baso % (Auto) Lymph # [place] # Baso # Seg Neutrophils % Seg Neuts % (Manual) Lymphocytes % (Manual) Monocytes % (Manual) Eosinophils % (Manual) Basophils % (Manual) Nucleated RBC % Lymphocytes # (Manual) Monocytes # (Manual) Eosinophils # (Manual) Basophils # (Manual) PT INR APTT Fibrinogen D-Dimer POC ABG pH POC ABG pCO2 POC ABG pO2 Sodium Potassium Chloride Carbon Dioxide BUN Creatinine Glucose POC Glucose Lactic Acid 2.40 H* Calcium Phosphorus Magnesium TIBC Ferritin Total Bilirubin Direct Bilirubin AST Ammonia 134.0 H Lactate Dehydrogenase NT-Pro-B Natriuret Pep 9558 H Total Protein Albumin Lipase Vitamin B12 Urine WBC (Auto) Urine Creatinine Ur Creatinine 24 Hour Fluid Glucose Fluid Total Protein Digoxin Crossmatch 12/10/17 12/11/17 12/11/17 23:14 00:29 03:33 RBC Hgb Hct MCV MCH MCHC RDW Plt Count Lymph % (Auto) [place] % (Auto) Baso % (Auto) Lymph # [place] # Baso # Seg Neutrophils % Seg Neuts % (Manual) Lymphocytes % (Manual) Monocytes % (Manual) Eosinophils % (Manual) Basophils % (Manual) Nucleated RBC % Lymphocytes # (Manual) Monocytes # (Manual) Eosinophils # (Manual) Basophils # (Manual) PT INR APTT Fibrinogen D-Dimer POC ABG pH POC ABG pCO2 POC ABG pO2 Sodium Potassium Chloride Carbon Dioxide BUN Creatinine Glucose POC Glucose Lactic Acid 2.80 H* 3.00 H* Calcium Phosphorus Magnesium TIBC Ferritin Total Bilirubin Direct Bilirubin AST Ammonia Lactate Dehydrogenase NT-Pro-B Natriuret Pep Total Protein Albumin Lipase 7 L Vitamin B12 Urine WBC (Auto) Urine Creatinine Ur Creatinine 24 Hour Fluid Glucose Fluid Total Protein Digoxin Crossmatch 12/11/17 12/11/17 12/11/17 04:08 04:34 04:34 RBC Hgb Hct MCV MCH MCHC RDW Plt Count Lymph % (Auto) [place] % (Auto) Baso % (Auto) Lymph # [place] # Baso # Seg Neutrophils % Seg Neuts % (Manual) Lymphocytes % (Manual) Monocytes % (Manual) Eosinophils % (Manual) Basophils % (Manual) Nucleated RBC % Lymphocytes # (Manual) Monocytes # (Manual) Eosinophils # (Manual) Basophils # (Manual) PT 19.1 H INR 1.51 H APTT 45.7 H Fibrinogen D-Dimer POC ABG pH POC ABG pCO2 POC ABG pO2 Sodium Potassium Chloride Carbon Dioxide BUN Creatinine Glucose POC Glucose 113 H Lactic Acid 3.10 H* Calcium Phosphorus Magnesium TIBC Ferritin Total Bilirubin Direct Bilirubin AST Ammonia Lactate Dehydrogenase NT-Pro-B Natriuret Pep Total Protein Albumin Lipase Vitamin B12 Urine WBC (Auto) Urine Creatinine Ur Creatinine 24 Hour Fluid Glucose Fluid Total Protein Digoxin Crossmatch 12/11/17 12/11/17 12/11/17 06:46 07:26 09:42 RBC Hgb Hct MCV MCH MCHC RDW Plt Count Lymph % (Auto) [place] % (Auto) Baso % (Auto) Lymph # [place] # Baso # Seg Neutrophils % Seg Neuts % (Manual) Lymphocytes % (Manual) Monocytes % (Manual) Eosinophils % (Manual) Basophils % (Manual) Nucleated RBC % Lymphocytes # (Manual) Monocytes # (Manual) Eosinophils # (Manual) Basophils # (Manual) PT INR APTT Fibrinogen D-Dimer POC ABG pH POC ABG pCO2 POC ABG pO2 Sodium Potassium Chloride Carbon Dioxide BUN Creatinine Glucose POC Glucose Lactic Acid 2.70 H* 2.80 H* 2.90 H* Calcium Phosphorus Magnesium TIBC Ferritin Total Bilirubin Direct Bilirubin AST Ammonia Lactate Dehydrogenase NT-Pro-B Natriuret Pep Total Protein Albumin Lipase Vitamin B12 Urine WBC (Auto) Urine Creatinine Ur Creatinine 24 Hour Fluid Glucose Fluid Total Protein Digoxin Crossmatch 12/11/17 12/11/17 12/11/17 13:12 14:06 23:14 RBC Hgb Hct MCV MCH MCHC RDW Plt Count Lymph % (Auto) [place] % (Auto) Baso % (Auto) Lymph # [place] # Baso # Seg Neutrophils % Seg Neuts % (Manual) Lymphocytes % (Manual) Monocytes % (Manual) Eosinophils % (Manual) Basophils % (Manual) Nucleated RBC % Lymphocytes # (Manual) Monocytes # (Manual) Eosinophils # (Manual) Basophils # (Manual) PT INR APTT Fibrinogen D-Dimer POC ABG pH POC ABG pCO2 POC ABG pO2 Sodium Potassium Chloride Carbon Dioxide BUN Creatinine Glucose POC Glucose Lactic Acid 3.10 H* 3.10 H* 3.70 H* Calcium Phosphorus Magnesium TIBC Ferritin Total Bilirubin Direct Bilirubin AST Ammonia Lactate Dehydrogenase NT-Pro-B Natriuret Pep Total Protein Albumin Lipase Vitamin B12 Urine WBC (Auto) Urine Creatinine Ur Creatinine 24 Hour Fluid Glucose Fluid Total Protein Digoxin Crossmatch 12/11/17 12/12/17 12/12/17 23:23 03:41 03:41 RBC 2.17 L Hgb 7.0 L Hct 19.9 L* MCV MCH 33 H MCHC 35 H RDW 17.7 H Plt Count 62 L Lymph % (Auto) [place] % (Auto) Baso % (Auto) Lymph # [place] # Baso # Seg Neutrophils % Seg Neuts % (Manual) 91.0 H Lymphocytes % (Manual) 3.0 L Monocytes % (Manual) Eosinophils % (Manual) Basophils % (Manual) Nucleated RBC % Lymphocytes # (Manual) 0.2 L Monocytes # (Manual) Eosinophils # (Manual) Basophils # (Manual) PT INR APTT Fibrinogen D-Dimer POC ABG pH POC ABG pCO2 POC ABG pO2 Sodium Potassium 5.4 H Chloride Carbon Dioxide 12 L BUN 47 H Creatinine 4.5 H Glucose 103 H POC Glucose Lactic Acid Calcium 8.0 L Phosphorus Magnesium TIBC Ferritin Total Bilirubin 3.60 H Direct Bilirubin AST 58 H Ammonia Lactate Dehydrogenase NT-Pro-B Natriuret Pep Total Protein 5.9 L Albumin 2.5 L Lipase Vitamin B12 Urine WBC (Auto) Urine Creatinine Ur Creatinine 24 Hour Fluid Glucose Fluid Total Protein Digoxin Crossmatch See Detail 12/12/17 12/12/17 12/12/17 07:00 09:13 17:55 RBC 2.06 L Hgb 6.6 L Hct 18.6 L* MCV MCH MCHC 36 H RDW 17.8 H Plt Count 77 L Lymph % (Auto) [place] % (Auto) Baso % (Auto) Lymph # [place] # Baso # Seg Neutrophils % Seg Neuts % (Manual) Lymphocytes % (Manual) Monocytes % (Manual) Eosinophils % (Manual) Basophils % (Manual) Nucleated RBC % Lymphocytes # (Manual) Monocytes # (Manual) Eosinophils # (Manual) Basophils # (Manual) PT INR APTT Fibrinogen D-Dimer POC ABG pH 7.452 H POC ABG pCO2 22.2 L POC ABG pO2 75 L Sodium Potassium Chloride Carbon Dioxide BUN Creatinine Glucose POC Glucose 119 H Lactic Acid Calcium Phosphorus Magnesium TIBC Ferritin Total Bilirubin Direct Bilirubin AST Ammonia Lactate Dehydrogenase NT-Pro-B Natriuret Pep Total Protein Albumin Lipase Vitamin B12 Urine WBC (Auto) Urine Creatinine Ur Creatinine 24 Hour Fluid Glucose Fluid Total Protein Digoxin Crossmatch 12/12/17 12/12/17 12/12/17 19:50 19:50 19:50 RBC 2.40 L Hgb 7.8 L Hct 21.3 L MCV MCH 33 H MCHC 37 H RDW 16.1 H Plt Count 99 L Lymph % (Auto) [place] % (Auto) Baso % (Auto) Lymph # [place] # Baso # Seg Neutrophils % Seg Neuts % (Manual) 87.0 H Lymphocytes % (Manual) 5.0 L Monocytes % (Manual) Eosinophils % (Manual) Basophils % (Manual) Nucleated RBC % Lymphocytes # (Manual) 0.3 L Monocytes # (Manual) Eosinophils # (Manual) Basophils # (Manual) PT 21.9 H INR 1.79 H APTT 41.5 H Fibrinogen 128 L D-Dimer 1215.06 H POC ABG pH POC ABG pCO2 POC ABG pO2 Sodium Potassium Chloride Carbon Dioxide BUN Creatinine Glucose POC Glucose Lactic Acid Calcium Phosphorus Magnesium TIBC Ferritin Total Bilirubin 4.10 H Direct Bilirubin 1.6 H AST Ammonia Lactate Dehydrogenase NT-Pro-B Natriuret Pep Total Protein Albumin Lipase Vitamin B12 Urine WBC (Auto) Urine Creatinine Ur Creatinine 24 Hour Fluid Glucose Fluid Total Protein Digoxin Crossmatch 12/12/17 12/12/17 12/12/17 19:50 19:50 23:46 RBC Hgb Hct MCV MCH MCHC RDW Plt Count Lymph % (Auto) [place] % (Auto) Baso % (Auto) Lymph # [place] # Baso # Seg Neutrophils % Seg Neuts % (Manual) Lymphocytes % (Manual) Monocytes % (Manual) Eosinophils % (Manual) Basophils % (Manual) Nucleated RBC % Lymphocytes # (Manual) Monocytes # (Manual) Eosinophils # (Manual) Basophils # (Manual) PT INR APTT Fibrinogen D-Dimer POC ABG pH POC ABG pCO2 POC ABG pO2 Sodium Potassium Chloride Carbon Dioxide BUN Creatinine Glucose POC Glucose 110 H Lactic Acid Calcium Phosphorus Magnesium TIBC Ferritin Total Bilirubin Direct Bilirubin AST Ammonia Lactate Dehydrogenase 213 H NT-Pro-B Natriuret Pep Total Protein Albumin Lipase Vitamin B12 1465 H Urine WBC (Auto) Urine Creatinine Ur Creatinine 24 Hour Fluid Glucose Fluid Total Protein Digoxin Crossmatch 12/13/17 12/13/17 12/13/17 04:00 04:00 05:12 RBC 2.32 L Hgb 7.4 L Hct 20.8 L MCV MCH MCHC 36 H RDW 16.1 H Plt Count 134 L Lymph % (Auto) 13.1 L [place] % (Auto) 7.9 H Baso % (Auto) Lymph # 0.8 L [place] # Baso # Seg Neutrophils % 76.3 H Seg Neuts % (Manual) Lymphocytes % (Manual) Monocytes % (Manual) Eosinophils % (Manual) Basophils % (Manual) Nucleated RBC % Lymphocytes # (Manual) Monocytes # (Manual) Eosinophils # (Manual) Basophils # (Manual) PT INR APTT Fibrinogen D-Dimer POC ABG pH POC ABG pCO2 POC ABG pO2 Sodium Potassium Chloride Carbon Dioxide 21 L D BUN 48 H Creatinine 4.6 H Glucose 104 H POC Glucose 134 H Lactic Acid Calcium 8.1 L Phosphorus Magnesium TIBC Ferritin Total Bilirubin 4.70 H Direct Bilirubin AST 43 H Ammonia Lactate Dehydrogenase NT-Pro-B Natriuret Pep Total Protein 5.8 L Albumin 3.1 L Lipase Vitamin B12 Urine WBC (Auto) Urine Creatinine Ur Creatinine 24 Hour Fluid Glucose Fluid Total Protein Digoxin Crossmatch 12/13/17 12/13/17 12/13/17 08:45 12:25 14:03 RBC Hgb Hct MCV MCH MCHC RDW Plt Count Lymph % (Auto) [place] % (Auto) Baso % (Auto) Lymph # [place] # Baso # Seg Neutrophils % Seg Neuts % (Manual) Lymphocytes % (Manual) Monocytes % (Manual) Eosinophils % (Manual) Basophils % (Manual) Nucleated RBC % Lymphocytes # (Manual) Monocytes # (Manual) Eosinophils # (Manual) Basophils # (Manual) PT 20.5 H INR 1.65 H APTT Fibrinogen D-Dimer POC ABG pH POC ABG pCO2 POC ABG pO2 Sodium Potassium Chloride Carbon Dioxide BUN Creatinine Glucose POC Glucose 112 H Lactic Acid 3.70 H* Calcium Phosphorus Magnesium TIBC Ferritin Total Bilirubin Direct Bilirubin AST Ammonia Lactate Dehydrogenase NT-Pro-B Natriuret Pep Total Protein Albumin Lipase Vitamin B12 Urine WBC (Auto) Urine Creatinine Ur Creatinine 24 Hour Fluid Glucose Fluid Total Protein Digoxin Crossmatch 12/13/17 12/13/17 12/13/17 14:03 18:52 21:09 RBC Hgb Hct MCV MCH MCHC RDW Plt Count Lymph % (Auto) [place] % (Auto) Baso % (Auto) Lymph # [place] # Baso # Seg Neutrophils % Seg Neuts % (Manual) Lymphocytes % (Manual) Monocytes % (Manual) Eosinophils % (Manual) Basophils % (Manual) Nucleated RBC % Lymphocytes # (Manual) Monocytes # (Manual) Eosinophils # (Manual) Basophils # (Manual) PT INR APTT Fibrinogen D-Dimer POC ABG pH POC ABG pCO2 POC ABG pO2 Sodium Potassium Chloride Carbon Dioxide BUN Creatinine Glucose POC Glucose 110 H Lactic Acid 4.00 H* Calcium Phosphorus Magnesium TIBC Ferritin Total Bilirubin Direct Bilirubin AST Ammonia 87.0 H Lactate Dehydrogenase NT-Pro-B Natriuret Pep Total Protein Albumin Lipase Vitamin B12 Urine WBC (Auto) Urine Creatinine Ur Creatinine 24 Hour Fluid Glucose Fluid Total Protein Digoxin Crossmatch 12/14/17 12/14/17 12/14/17 00:25 03:30 03:30 RBC 2.29 L Hgb 7.3 L Hct 20.7 L MCV MCH MCHC 35 H RDW 16.2 H Plt Count 84 L Lymph % (Auto) 12.8 L [place] % (Auto) 8.3 H Baso % (Auto) Lymph # 0.6 L [place] # Baso # Seg Neutrophils % 77.2 H Seg Neuts % (Manual) Lymphocytes % (Manual) Monocytes % (Manual) Eosinophils % (Manual) Basophils % (Manual) Nucleated RBC % Lymphocytes # (Manual) Monocytes # (Manual) Eosinophils # (Manual) Basophils # (Manual) PT INR APTT Fibrinogen D-Dimer POC ABG pH POC ABG pCO2 POC ABG pO2 Sodium Potassium Chloride 96.1 L Carbon Dioxide BUN 48 H Creatinine 4.6 H Glucose 125 H POC Glucose 131 H Lactic Acid Calcium 7.9 L Phosphorus Magnesium TIBC Ferritin Total Bilirubin 4.70 H Direct Bilirubin AST 45 H Ammonia Lactate Dehydrogenase NT-Pro-B Natriuret Pep Total Protein 6.1 L Albumin 3.4 L Lipase Vitamin B12 Urine WBC (Auto) Urine Creatinine Ur Creatinine 24 Hour Fluid Glucose Fluid Total Protein Digoxin Crossmatch 12/14/17 12/14/17 12/14/17 05:31 12:26 12:55 RBC Hgb Hct MCV MCH MCHC RDW Plt Count Lymph % (Auto) [place] % (Auto) Baso % (Auto) Lymph # [place] # Baso # Seg Neutrophils % Seg Neuts % (Manual) Lymphocytes % (Manual) Monocytes % (Manual) Eosinophils % (Manual) Basophils % (Manual) Nucleated RBC % Lymphocytes # (Manual) Monocytes # (Manual) Eosinophils # (Manual) Basophils # (Manual) PT INR APTT Fibrinogen D-Dimer POC ABG pH POC ABG pCO2 POC ABG pO2 Sodium Potassium Chloride Carbon Dioxide BUN Creatinine Glucose POC Glucose 125 H 117 H Lactic Acid 3.40 H* Calcium Phosphorus Magnesium TIBC Ferritin Total Bilirubin Direct Bilirubin AST Ammonia Lactate Dehydrogenase NT-Pro-B Natriuret Pep Total Protein Albumin Lipase Vitamin B12 Urine WBC (Auto) Urine Creatinine Ur Creatinine 24 Hour Fluid Glucose Fluid Total Protein Digoxin Crossmatch 12/14/17 12/14/17 12/14/17 15:26 17:26 18:07 RBC Hgb Hct MCV MCH MCHC RDW Plt Count Lymph % (Auto) [place] % (Auto) Baso % (Auto) Lymph # [place] # Baso # Seg Neutrophils % Seg Neuts % (Manual) Lymphocytes % (Manual) Monocytes % (Manual) Eosinophils % (Manual) Basophils % (Manual) Nucleated RBC % Lymphocytes # (Manual) Monocytes # (Manual) Eosinophils # (Manual) Basophils # (Manual) PT INR APTT Fibrinogen D-Dimer POC ABG pH POC ABG pCO2 POC ABG pO2 Sodium Potassium Chloride Carbon Dioxide BUN Creatinine Glucose POC Glucose 143 H Lactic Acid 4.00 H* 3.90 H* Calcium Phosphorus Magnesium TIBC Ferritin Total Bilirubin Direct Bilirubin AST Ammonia Lactate Dehydrogenase NT-Pro-B Natriuret Pep Total Protein Albumin Lipase Vitamin B12 Urine WBC (Auto) Urine Creatinine Ur Creatinine 24 Hour Fluid Glucose Fluid Total Protein Digoxin Crossmatch 12/14/17 12/15/17 12/15/17 Unknown 00:08 04:51 RBC 2.27 L Hgb 7.3 L Hct 20.7 L MCV MCH MCHC 35 H RDW 16.1 H Plt Count 92 L Lymph % (Auto) 12.5 L [place] % (Auto) 10.4 H Baso % (Auto) Lymph # 0.6 L [place] # Baso # Seg Neutrophils % 74.7 H Seg Neuts % (Manual) Lymphocytes % (Manual) Monocytes % (Manual) Eosinophils % (Manual) Basophils % (Manual) Nucleated RBC % Lymphocytes # (Manual) Monocytes # (Manual) Eosinophils # (Manual) Basophils # (Manual) PT INR APTT Fibrinogen D-Dimer POC ABG pH POC ABG pCO2 POC ABG pO2 Sodium Potassium Chloride Carbon Dioxide BUN Creatinine Glucose POC Glucose 124 H Lactic Acid Calcium Phosphorus Magnesium TIBC Ferritin Total Bilirubin Direct Bilirubin AST Ammonia Lactate Dehydrogenase NT-Pro-B Natriuret Pep Total Protein Albumin Lipase Vitamin B12 Urine WBC (Auto) Urine Creatinine 122.5 H Ur Creatinine 24 Hour 0.3 L Fluid Glucose Fluid Total Protein Digoxin Crossmatch 12/15/17 12/15/17 12/15/17 04:51 04:51 05:56 RBC Hgb Hct MCV MCH MCHC RDW Plt Count Lymph % (Auto) [place] % (Auto) Baso % (Auto) Lymph # [place] # Baso # Seg Neutrophils % Seg Neuts % (Manual) Lymphocytes % (Manual) Monocytes % (Manual) Eosinophils % (Manual) Basophils % (Manual) Nucleated RBC % Lymphocytes # (Manual) Monocytes # (Manual) Eosinophils # (Manual) Basophils # (Manual) PT INR APTT Fibrinogen D-Dimer POC ABG pH POC ABG pCO2 POC ABG pO2 Sodium Potassium 3.5 L Chloride 92.6 L Carbon Dioxide BUN 50 H Creatinine 4.8 H Glucose 141 H POC Glucose 143 H Lactic Acid Calcium 7.9 L Phosphorus Magnesium TIBC Ferritin Total Bilirubin 3.60 H Direct Bilirubin AST 44 H Ammonia 24.0 L Lactate Dehydrogenase NT-Pro-B Natriuret Pep Total Protein 6.1 L Albumin 3.8 L Lipase Vitamin B12 Urine WBC (Auto) Urine Creatinine Ur Creatinine 24 Hour Fluid Glucose Fluid Total Protein Digoxin Crossmatch 12/15/17 12/15/17 12/16/17 12:17 23:10 07:04 RBC Hgb Hct MCV MCH MCHC RDW Plt Count Lymph % (Auto) [place] % (Auto) Baso % (Auto) Lymph # [place] # Baso # Seg Neutrophils % Seg Neuts % (Manual) Lymphocytes % (Manual) Monocytes % (Manual) Eosinophils % (Manual) Basophils % (Manual) Nucleated RBC % Lymphocytes # (Manual) Monocytes # (Manual) Eosinophils # (Manual) Basophils # (Manual) PT INR APTT Fibrinogen D-Dimer POC ABG pH POC ABG pCO2 POC ABG pO2 Sodium Potassium Chloride Carbon Dioxide BUN Creatinine Glucose POC Glucose 127 H 157 H 147 H Lactic Acid Calcium Phosphorus Magnesium TIBC Ferritin Total Bilirubin Direct Bilirubin AST Ammonia Lactate Dehydrogenase NT-Pro-B Natriuret Pep Total Protein Albumin Lipase Vitamin B12 Urine WBC (Auto) Urine Creatinine Ur Creatinine 24 Hour Fluid Glucose Fluid Total Protein Digoxin Crossmatch 12/16/17 12/16/17 12/16/17 11:35 12:37 12:37 RBC 2.21 L Hgb 6.9 L Hct 20.2 L MCV MCH MCHC RDW 16.2 H Plt Count 50 L Lymph % (Auto) [place] % (Auto) 9.7 H Baso % (Auto) Lymph # 0.7 L [place] # Baso # Seg Neutrophils % 73.1 H Seg Neuts % (Manual) Lymphocytes % (Manual) Monocytes % (Manual) Eosinophils % (Manual) Basophils % (Manual) Nucleated RBC % Lymphocytes # (Manual) Monocytes # (Manual) Eosinophils # (Manual) Basophils # (Manual) PT INR APTT Fibrinogen D-Dimer POC ABG pH POC ABG pCO2 POC ABG pO2 Sodium Potassium Chloride 88.2 L Carbon Dioxide BUN 52 H Creatinine 5.5 H Glucose 107 H POC Glucose 134 H Lactic Acid Calcium 7.8 L Phosphorus Magnesium TIBC Ferritin Total Bilirubin 2.60 H Direct Bilirubin AST 49 H Ammonia Lactate Dehydrogenase NT-Pro-B Natriuret Pep Total Protein Albumin 3.6 L Lipase Vitamin B12 Urine WBC (Auto) Urine Creatinine Ur Creatinine 24 Hour Fluid Glucose Fluid Total Protein Digoxin Crossmatch 12/16/17 12/16/17 12/16/17 18:06 20:45 23:34 RBC Hgb Hct MCV MCH MCHC RDW Plt Count Lymph % (Auto) [place] % (Auto) Baso % (Auto) Lymph # [place] # Baso # Seg Neutrophils % Seg Neuts % (Manual) Lymphocytes % (Manual) Monocytes % (Manual) Eosinophils % (Manual) Basophils % (Manual) Nucleated RBC % Lymphocytes # (Manual) Monocytes # (Manual) Eosinophils # (Manual) Basophils # (Manual) PT INR APTT Fibrinogen D-Dimer POC ABG pH POC ABG pCO2 POC ABG pO2 Sodium Potassium Chloride Carbon Dioxide BUN Creatinine Glucose POC Glucose 133 H 139 H Lactic Acid Calcium Phosphorus Magnesium TIBC Ferritin Total Bilirubin Direct Bilirubin AST Ammonia Lactate Dehydrogenase NT-Pro-B Natriuret Pep Total Protein Albumin Lipase Vitamin B12 Urine WBC (Auto) Urine Creatinine Ur Creatinine 24 Hour Fluid Glucose Fluid Total Protein Digoxin Crossmatch See Detail 12/17/17 12/17/17 12/17/17 05:27 05:27 06:11 RBC 2.10 L Hgb 6.6 L Hct 19.2 L* MCV MCH MCHC 35 H RDW 16.5 H Plt Count 65 L Lymph % (Auto) 12.6 L [place] % (Auto) 9.6 H Baso % (Auto) Lymph # 0.7 L [place] # Baso # Seg Neutrophils % 75.8 H Seg Neuts % (Manual) Lymphocytes % (Manual) Monocytes % (Manual) Eosinophils % (Manual) Basophils % (Manual) Nucleated RBC % Lymphocytes # (Manual) Monocytes # (Manual) Eosinophils # (Manual) Basophils # (Manual) PT INR APTT Fibrinogen D-Dimer POC ABG pH POC ABG pCO2 POC ABG pO2 Sodium 135 L Potassium 3.4 L Chloride 84.9 L Carbon Dioxide 33 H BUN 53 H Creatinine 5.9 H Glucose POC Glucose 110 H Lactic Acid Calcium 7.7 L Phosphorus Magnesium TIBC Ferritin Total Bilirubin 2.70 H Direct Bilirubin AST 50 H Ammonia Lactate Dehydrogenase NT-Pro-B Natriuret Pep Total Protein 6.2 L Albumin 3.7 L Lipase Vitamin B12 Urine WBC (Auto) Urine Creatinine Ur Creatinine 24 Hour Fluid Glucose Fluid Total Protein Digoxin Crossmatch 12/17/17 12/18/17 12/18/17 09:34 00:05 05:21 RBC 3.35 L Hgb 10.3 L D Hct 30.4 L D MCV MCH MCHC RDW 16.2 H Plt Count 57 L Lymph % (Auto) 8.0 L [place] % (Auto) 10.9 H Baso % (Auto) Lymph # 0.6 L [place] # Baso # Seg Neutrophils % 80.2 H Seg Neuts % (Manual) Lymphocytes % (Manual) Monocytes % (Manual) Eosinophils % (Manual) Basophils % (Manual) Nucleated RBC % Lymphocytes # (Manual) Monocytes # (Manual) Eosinophils # (Manual) Basophils # (Manual) PT 23.9 H INR 1.99 H APTT Fibrinogen D-Dimer POC ABG pH POC ABG pCO2 POC ABG pO2 Sodium Potassium Chloride Carbon Dioxide BUN Creatinine Glucose POC Glucose 132 H Lactic Acid Calcium Phosphorus Magnesium TIBC Ferritin Total Bilirubin Direct Bilirubin AST Ammonia Lactate Dehydrogenase NT-Pro-B Natriuret Pep Total Protein Albumin Lipase Vitamin B12 Urine WBC (Auto) Urine Creatinine Ur Creatinine 24 Hour Fluid Glucose Fluid Total Protein Digoxin Crossmatch 12/18/17 12/18/17 12/18/17 05:21 06:16 11:11 RBC Hgb Hct MCV MCH MCHC RDW Plt Count Lymph % (Auto) [place] % (Auto) Baso % (Auto) Lymph # [place] # Baso # Seg Neutrophils % Seg Neuts % (Manual) Lymphocytes % (Manual) Monocytes % (Manual) Eosinophils % (Manual) Basophils % (Manual) Nucleated RBC % Lymphocytes # (Manual) Monocytes # (Manual) Eosinophils # (Manual) Basophils # (Manual) PT 34.7 H INR 3.17 H APTT Fibrinogen D-Dimer POC ABG pH POC ABG pCO2 POC ABG pO2 Sodium Potassium 3.5 L Chloride 87.1 L Carbon Dioxide BUN 35 H Creatinine 4.3 H Glucose 110 H POC Glucose 116 H Lactic Acid Calcium 8.1 L Phosphorus Magnesium TIBC Ferritin Total Bilirubin 5.10 H Direct Bilirubin AST 56 H Ammonia Lactate Dehydrogenase NT-Pro-B Natriuret Pep Total Protein Albumin Lipase Vitamin B12 Urine WBC (Auto) Urine Creatinine Ur Creatinine 24 Hour Fluid Glucose Fluid Total Protein Digoxin Crossmatch 12/18/17 12/18/17 12/18/17 13:10 17:52 22:04 RBC Hgb Hct MCV MCH MCHC RDW Plt Count Lymph % (Auto) [place] % (Auto) Baso % (Auto) Lymph # [place] # Baso # Seg Neutrophils % Seg Neuts % (Manual) Lymphocytes % (Manual) Monocytes % (Manual) Eosinophils % (Manual) Basophils % (Manual) Nucleated RBC % Lymphocytes # (Manual) Monocytes # (Manual) Eosinophils # (Manual) Basophils # (Manual) PT 25.9 H INR 2.20 H APTT Fibrinogen D-Dimer POC ABG pH POC ABG pCO2 POC ABG pO2 Sodium Potassium Chloride Carbon Dioxide BUN Creatinine Glucose POC Glucose 114 H 108 H Lactic Acid Calcium Phosphorus Magnesium TIBC Ferritin Total Bilirubin Direct Bilirubin AST Ammonia Lactate Dehydrogenase NT-Pro-B Natriuret Pep Total Protein Albumin Lipase Vitamin B12 Urine WBC (Auto) Urine Creatinine Ur Creatinine 24 Hour Fluid Glucose Fluid Total Protein Digoxin Crossmatch 12/19/17 12/19/17 12/19/17 05:55 05:55 10:20 RBC 2.85 L Hgb 9.1 L Hct 25.7 L MCV MCH MCHC 35 H RDW 16.4 H Plt Count 61 L Lymph % (Auto) [place] % (Auto) Baso % (Auto) Lymph # [place] # Baso # Seg Neutrophils % Seg Neuts % (Manual) Lymphocytes % (Manual) Monocytes % (Manual) Eosinophils % (Manual) Basophils % (Manual) Nucleated RBC % Lymphocytes # (Manual) Monocytes # (Manual) Eosinophils # (Manual) Basophils # (Manual) PT INR APTT Fibrinogen D-Dimer POC ABG pH POC ABG pCO2 POC ABG pO2 Sodium Potassium Chloride 94.5 L Carbon Dioxide BUN 27 H Creatinine 3.6 H Glucose POC Glucose 131 H Lactic Acid Calcium 8.2 L Phosphorus Magnesium TIBC Ferritin Total Bilirubin Direct Bilirubin AST Ammonia Lactate Dehydrogenase NT-Pro-B Natriuret Pep Total Protein Albumin Lipase Vitamin B12 Urine WBC (Auto) Urine Creatinine Ur Creatinine 24 Hour Fluid Glucose Fluid Total Protein Digoxin Crossmatch 12/19/17 12/21/17 12/21/17 11:46 05:26 05:26 RBC 2.60 L Hgb 8.4 L Hct 23.9 L MCV MCH MCHC 35 H RDW 16.2 H Plt Count 57 L Lymph % (Auto) 12.4 L [place] % (Auto) 10.7 H Baso % (Auto) Lymph # [place] # 1.0 H Baso # Seg Neutrophils % 74.8 H Seg Neuts % (Manual) Lymphocytes % (Manual) Monocytes % (Manual) Eosinophils % (Manual) Basophils % (Manual) Nucleated RBC % Lymphocytes # (Manual) Monocytes # (Manual) Eosinophils # (Manual) Basophils # (Manual) PT 26.2 H INR 2.23 H APTT Fibrinogen D-Dimer POC ABG pH POC ABG pCO2 POC ABG pO2 Sodium Potassium Chloride Carbon Dioxide BUN Creatinine Glucose POC Glucose Lactic Acid Calcium Phosphorus Magnesium TIBC Ferritin Total Bilirubin Direct Bilirubin AST Ammonia Lactate Dehydrogenase NT-Pro-B Natriuret Pep Total Protein Albumin Lipase Vitamin B12 Urine WBC (Auto) Urine Creatinine Ur Creatinine 24 Hour Fluid Glucose Fluid Total Protein Digoxin 0.4 L Crossmatch 12/21/17 12/23/17 12/24/17 09:40 08:15 04:51 RBC 1.80 L Hgb 5.9 L* Hct 17.0 L* D MCV MCH 33 H MCHC 35 H RDW 16.5 H Plt Count 53 L Lymph % (Auto) [place] % (Auto) Baso % (Auto) Lymph # [place] # Baso # Seg Neutrophils % Seg Neuts % (Manual) Lymphocytes % (Manual) Monocytes % (Manual) Eosinophils % (Manual) Basophils % (Manual) Nucleated RBC % Lymphocytes # (Manual) Monocytes # (Manual) Eosinophils # (Manual) Basophils # (Manual) PT 26.4 H 27.9 H INR 2.26 H 2.42 H APTT Fibrinogen D-Dimer POC ABG pH POC ABG pCO2 POC ABG pO2 Sodium Potassium Chloride Carbon Dioxide BUN Creatinine Glucose POC Glucose Lactic Acid Calcium Phosphorus Magnesium TIBC Ferritin Total Bilirubin Direct Bilirubin AST Ammonia Lactate Dehydrogenase NT-Pro-B Natriuret Pep Total Protein Albumin Lipase Vitamin B12 Urine WBC (Auto) Urine Creatinine Ur Creatinine 24 Hour Fluid Glucose Fluid Total Protein Digoxin Crossmatch 12/24/17 12/24/17 12/24/17 04:51 06:25 08:20 RBC Hgb Hct MCV MCH MCHC RDW Plt Count Lymph % (Auto) [place] % (Auto) Baso % (Auto) Lymph # [place] # Baso # Seg Neutrophils % Seg Neuts % (Manual) Lymphocytes % (Manual) Monocytes % (Manual) Eosinophils % (Manual) Basophils % (Manual) Nucleated RBC % Lymphocytes # (Manual) Monocytes # (Manual) Eosinophils # (Manual) Basophils # (Manual) PT 40.8 H INR 3.87 H APTT Fibrinogen D-Dimer POC ABG pH POC ABG pCO2 POC ABG pO2 Sodium Potassium 3.5 L Chloride Carbon Dioxide BUN 21 H Creatinine 4.4 H Glucose POC Glucose Lactic Acid Calcium 8.1 L Phosphorus Magnesium TIBC Ferritin Total Bilirubin Direct Bilirubin AST Ammonia Lactate Dehydrogenase NT-Pro-B Natriuret Pep Total Protein Albumin Lipase Vitamin B12 Urine WBC (Auto) Urine Creatinine Ur Creatinine 24 Hour Fluid Glucose Fluid Total Protein Digoxin Crossmatch See Detail 12/24/17 12/24/17 12/25/17 19:21 19:21 05:27 RBC 2.31 L Hgb 7.3 L 7.4 L Hct 20.4 L 21.3 L MCV MCH MCHC 35 H RDW 15.9 H Plt Count 39 L Lymph % (Auto) [place] % (Auto) 10.8 H Baso % (Auto) Lymph # 0.9 L [place] # Baso # Seg Neutrophils % 71.9 H Seg Neuts % (Manual) Lymphocytes % (Manual) Monocytes % (Manual) Eosinophils % (Manual) Basophils % (Manual) Nucleated RBC % Lymphocytes # (Manual) Monocytes # (Manual) Eosinophils # (Manual) Basophils # (Manual) PT 21.3 H INR 1.73 H APTT Fibrinogen D-Dimer POC ABG pH POC ABG pCO2 POC ABG pO2 Sodium Potassium Chloride Carbon Dioxide BUN Creatinine Glucose POC Glucose Lactic Acid Calcium Phosphorus Magnesium TIBC Ferritin Total Bilirubin Direct Bilirubin AST Ammonia Lactate Dehydrogenase NT-Pro-B Natriuret Pep Total Protein Albumin Lipase Vitamin B12 Urine WBC (Auto) Urine Creatinine Ur Creatinine 24 Hour Fluid Glucose Fluid Total Protein Digoxin Crossmatch 12/25/17 12/25/17 12/25/17 05:27 05:27 12:24 RBC Hgb Hct MCV MCH MCHC RDW Plt Count Lymph % (Auto) [place] % (Auto) Baso % (Auto) Lymph # [place] # Baso # Seg Neutrophils % Seg Neuts % (Manual) Lymphocytes % (Manual) Monocytes % (Manual) Eosinophils % (Manual) Basophils % (Manual) Nucleated RBC % Lymphocytes # (Manual) Monocytes # (Manual) Eosinophils # (Manual) Basophils # (Manual) PT 22.1 H INR 1.81 H APTT Fibrinogen D-Dimer POC ABG pH POC ABG pCO2 POC ABG pO2 Sodium Potassium 3.5 L Chloride 96.7 L Carbon Dioxide BUN Creatinine 3.2 H Glucose POC Glucose 140 H Lactic Acid Calcium 8.1 L Phosphorus Magnesium TIBC Ferritin Total Bilirubin Direct Bilirubin AST Ammonia Lactate Dehydrogenase NT-Pro-B Natriuret Pep Total Protein Albumin Lipase Vitamin B12 Urine WBC (Auto) Urine Creatinine Ur Creatinine 24 Hour Fluid Glucose Fluid Total Protein Digoxin Crossmatch 12/26/17 12/26/17 12/27/17 05:59 05:59 06:34 RBC 2.01 L 2.52 L Hgb 6.6 L 8.2 L Hct 18.6 L* 23.2 L MCV MCH 33 H MCHC 35 H 35 H RDW 16.6 H 15.3 H Plt Count 45 L 39 L Lymph % (Auto) 11.6 L [place] % (Auto) 10.3 H 11.2 H Baso % (Auto) Lymph # 1.0 L 0.7 L [place] # Baso # Seg Neutrophils % 72.2 H 75.4 H Seg Neuts % (Manual) Lymphocytes % (Manual) Monocytes % (Manual) Eosinophils % (Manual) Basophils % (Manual) Nucleated RBC % Lymphocytes # (Manual) Monocytes # (Manual) Eosinophils # (Manual) Basophils # (Manual) PT INR APTT Fibrinogen D-Dimer POC ABG pH POC ABG pCO2 POC ABG pO2 Sodium Potassium 3.3 L Chloride Carbon Dioxide BUN Creatinine 3.8 H Glucose 110 H POC Glucose Lactic Acid Calcium Phosphorus 2.40 L Magnesium 1.40 L TIBC Ferritin Total Bilirubin 7.10 H Direct Bilirubin AST 73 H Ammonia Lactate Dehydrogenase NT-Pro-B Natriuret Pep Total Protein Albumin 3.5 L Lipase Vitamin B12 Urine WBC (Auto) Urine Creatinine Ur Creatinine 24 Hour Fluid Glucose Fluid Total Protein Digoxin Crossmatch 12/27/17 12/27/17 12/27/17 06:34 06:34 06:34 RBC Hgb Hct MCV MCH MCHC RDW Plt Count Lymph % (Auto) [place] % (Auto) Baso % (Auto) Lymph # [place] # Baso # Seg Neutrophils % Seg Neuts % (Manual) Lymphocytes % (Manual) Monocytes % (Manual) Eosinophils % (Manual) Basophils % (Manual) Nucleated RBC % Lymphocytes # (Manual) Monocytes # (Manual) Eosinophils # (Manual) Basophils # (Manual) PT INR APTT Fibrinogen D-Dimer POC ABG pH POC ABG pCO2 POC ABG pO2 Sodium Potassium 3.3 L Chloride 95.4 L Carbon Dioxide BUN Creatinine 2.6 H Glucose 112 H POC Glucose Lactic Acid Calcium 8.1 L Phosphorus Magnesium TIBC 77 L Ferritin > 2000.0 H Total Bilirubin 8.00 H Direct Bilirubin AST 89 H Ammonia Lactate Dehydrogenase 302 H NT-Pro-B Natriuret Pep Total Protein Albumin 3.7 L Lipase Vitamin B12 Urine WBC (Auto) Urine Creatinine Ur Creatinine 24 Hour Fluid Glucose Fluid Total Protein Digoxin Crossmatch 12/28/17 12/28/17 12/29/17 06:24 09:00 00:30 RBC 2.25 L Hgb 7.5 L Hct 21.1 L MCV MCH 33 H MCHC 35 H RDW 16.2 H Plt Count 78 L D Lymph % (Auto) 12.5 L [place] % (Auto) 12.3 H Baso % (Auto) Lymph # 0.9 L [place] # 0.9 H Baso # Seg Neutrophils % 73.3 H Seg Neuts % (Manual) Lymphocytes % (Manual) Monocytes % (Manual) Eosinophils % (Manual) Basophils % (Manual) Nucleated RBC % Lymphocytes # (Manual) Monocytes # (Manual) Eosinophils # (Manual) Basophils # (Manual) PT 23.7 H INR 1.97 H APTT 53.1 H Fibrinogen D-Dimer POC ABG pH POC ABG pCO2 POC ABG pO2 Sodium Potassium Chloride Carbon Dioxide BUN Creatinine Glucose POC Glucose 148 H Lactic Acid Calcium Phosphorus Magnesium TIBC Ferritin Total Bilirubin Direct Bilirubin AST Ammonia Lactate Dehydrogenase NT-Pro-B Natriuret Pep Total Protein Albumin Lipase Vitamin B12 Urine WBC (Auto) Urine Creatinine Ur Creatinine 24 Hour Fluid Glucose Fluid Total Protein Digoxin Crossmatch 12/29/17 12/29/17 12/29/17 00:34 03:59 03:59 RBC 2.19 L Hgb 7.2 L Hct 20.7 L MCV 95 H MCH 33 H MCHC 35 H RDW 16.9 H Plt Count 75 L Lymph % (Auto) [place] % (Auto) 10.8 H Baso % (Auto) Lymph # [place] # Baso # Seg Neutrophils % 70.8 H Seg Neuts % (Manual) Lymphocytes % (Manual) Monocytes % (Manual) Eosinophils % (Manual) Basophils % (Manual) Nucleated RBC % Lymphocytes # (Manual) Monocytes # (Manual) Eosinophils # (Manual) Basophils # (Manual) PT 25.7 H INR 2.18 H APTT Fibrinogen D-Dimer POC ABG pH POC ABG pCO2 POC ABG pO2 Sodium Potassium Chloride Carbon Dioxide BUN Creatinine 2.3 H Glucose 111 H POC Glucose Lactic Acid Calcium Phosphorus Magnesium TIBC Ferritin Total Bilirubin 8.20 H Direct Bilirubin AST 66 H Ammonia Lactate Dehydrogenase NT-Pro-B Natriuret Pep Total Protein Albumin 3.5 L Lipase Vitamin B12 Urine WBC (Auto) Urine Creatinine Ur Creatinine 24 Hour Fluid Glucose Fluid Total Protein Digoxin Crossmatch 12/29/17 12/30/17 12/30/17 07:35 07:51 08:27 RBC 1.97 L Hgb 6.7 L Hct 18.8 L* MCV 96 H MCH 34 H MCHC 36 H RDW 17.6 H Plt Count 76 L Lymph % (Auto) [place] % (Auto) 10.5 H Baso % (Auto) Lymph # 1.0 L [place] # Baso # Seg Neutrophils % 72.4 H Seg Neuts % (Manual) Lymphocytes % (Manual) Monocytes % (Manual) Eosinophils % (Manual) Basophils % (Manual) Nucleated RBC % Lymphocytes # (Manual) Monocytes # (Manual) Eosinophils # (Manual) Basophils # (Manual) PT INR APTT Fibrinogen D-Dimer POC ABG pH POC ABG pCO2 POC ABG pO2 Sodium Potassium Chloride Carbon Dioxide BUN Creatinine Glucose POC Glucose 113 H Lactic Acid Calcium Phosphorus Magnesium 1.50 L TIBC Ferritin Total Bilirubin Direct Bilirubin AST Ammonia Lactate Dehydrogenase NT-Pro-B Natriuret Pep Total Protein Albumin Lipase Vitamin B12 Urine WBC (Auto) Urine Creatinine Ur Creatinine 24 Hour Fluid Glucose Fluid Total Protein Digoxin Crossmatch 12/30/17 12/31/17 12/31/17 08:44 12:59 12:59 RBC 2.49 L Hgb 8.3 L Hct 23.0 L MCV MCH 33 H MCHC 36 H RDW 17.5 H Plt Count 69 L Lymph % (Auto) [place] % (Auto) 13.0 H Baso % (Auto) 1.9 H Lymph # 1.1 L [place] # 0.9 H Baso # Seg Neutrophils % Seg Neuts % (Manual) Lymphocytes % (Manual) Monocytes % (Manual) Eosinophils % (Manual) Basophils % (Manual) Nucleated RBC % Lymphocytes # (Manual) Monocytes # (Manual) Eosinophils # (Manual) Basophils # (Manual) PT INR APTT Fibrinogen D-Dimer POC ABG pH POC ABG pCO2 POC ABG pO2 Sodium Potassium Chloride Carbon Dioxide BUN 21 H Creatinine 3.8 H D Glucose 114 H POC Glucose Lactic Acid Calcium Phosphorus Magnesium TIBC Ferritin Total Bilirubin 8.30 H Direct Bilirubin AST 46 H Ammonia Lactate Dehydrogenase NT-Pro-B Natriuret Pep Total Protein Albumin Lipase Vitamin B12 Urine WBC (Auto) Urine Creatinine Ur Creatinine 24 Hour Fluid Glucose Fluid Total Protein Digoxin Crossmatch See Detail 12/31/17 12/31/17 01/01/18 12:59 Unknown 05:27 RBC 2.69 L Hgb 9.1 L Hct 25.1 L MCV MCH 34 H MCHC 36 H RDW 17.5 H Plt Count 64 L Lymph % (Auto) 12.5 L [place] % (Auto) 14.4 H Baso % (Auto) Lymph # 0.9 L [place] # 1.1 H Baso # Seg Neutrophils % 70.4 H Seg Neuts % (Manual) Lymphocytes % (Manual) Monocytes % (Manual) Eosinophils % (Manual) Basophils % (Manual) Nucleated RBC % Lymphocytes # (Manual) Monocytes # (Manual) Eosinophils # (Manual) Basophils # (Manual) PT 19.7 H INR 1.57 H APTT Fibrinogen D-Dimer POC ABG pH POC ABG pCO2 POC ABG pO2 Sodium Potassium Chloride Carbon Dioxide BUN Creatinine Glucose POC Glucose Lactic Acid Calcium Phosphorus Magnesium TIBC Ferritin Total Bilirubin Direct Bilirubin AST Ammonia Lactate Dehydrogenase NT-Pro-B Natriuret Pep Total Protein Albumin Lipase Vitamin B12 Urine WBC (Auto) Urine Creatinine Ur Creatinine 24 Hour Fluid Glucose 124 H Fluid Total Protein < 3.0 L Digoxin Crossmatch 01/01/18 01/01/18 01/03/18 05:27 05:27 06:24 RBC 2.62 L Hgb 8.7 L Hct 25.6 L MCV 98 H MCH 33 H MCHC RDW 19.4 H Plt Count 55 L Lymph % (Auto) [place] % (Auto) 10.9 H Baso % (Auto) 2.7 H Lymph # 1.1 L [place] # 0.9 H Baso # 0.2 H Seg Neutrophils % Seg Neuts % (Manual) Lymphocytes % (Manual) Monocytes % (Manual) Eosinophils % (Manual) Basophils % (Manual) Nucleated RBC % Lymphocytes # (Manual) Monocytes # (Manual) Eosinophils # (Manual) Basophils # (Manual) PT 22.1 H INR 1.81 H APTT Fibrinogen D-Dimer POC ABG pH POC ABG pCO2 POC ABG pO2 Sodium Potassium Chloride Carbon Dioxide BUN Creatinine 2.8 H Glucose POC Glucose Lactic Acid Calcium Phosphorus Magnesium TIBC Ferritin Total Bilirubin 9.20 H Direct Bilirubin AST 49 H Ammonia Lactate Dehydrogenase NT-Pro-B Natriuret Pep Total Protein Albumin 3.8 L Lipase Vitamin B12 Urine WBC (Auto) Urine Creatinine Ur Creatinine 24 Hour Fluid Glucose Fluid Total Protein Digoxin Crossmatch 01/03/18 01/03/18 01/05/18 06:24 06:24 04:47 RBC 2.75 L Hgb 9.2 L Hct 27.3 L MCV 99 H MCH 34 H MCHC RDW 23.5 H Plt Count 55 L Lymph % (Auto) [place] % (Auto) 14.3 H Baso % (Auto) 2.3 H Lymph # [place] # 1.0 H Baso # 0.2 H Seg Neutrophils % Seg Neuts % (Manual) Lymphocytes % (Manual) Monocytes % (Manual) Eosinophils % (Manual) Basophils % (Manual) Nucleated RBC % Lymphocytes # (Manual) Monocytes # (Manual) Eosinophils # (Manual) Basophils # (Manual) PT 24.1 H INR 2.01 H APTT Fibrinogen D-Dimer POC ABG pH POC ABG pCO2 POC ABG pO2 Sodium Potassium Chloride Carbon Dioxide BUN Creatinine Glucose POC Glucose Lactic Acid Calcium Phosphorus Magnesium TIBC Ferritin Total Bilirubin 9.00 H Direct Bilirubin 2.7 H AST 50 H Ammonia Lactate Dehydrogenase NT-Pro-B Natriuret Pep Total Protein Albumin 3.6 L Lipase Vitamin B12 Urine WBC (Auto) Urine Creatinine Ur Creatinine 24 Hour Fluid Glucose Fluid Total Protein Digoxin Crossmatch 01/05/18 01/05/18 01/05/18 04:47 04:47 14:57 RBC Hgb Hct MCV MCH MCHC RDW Plt Count Lymph % (Auto) [place] % (Auto) Baso % (Auto) Lymph # [place] # Baso # Seg Neutrophils % Seg Neuts % (Manual) Lymphocytes % (Manual) Monocytes % (Manual) Eosinophils % (Manual) Basophils % (Manual) Nucleated RBC % Lymphocytes # (Manual) Monocytes # (Manual) Eosinophils # (Manual) Basophils # (Manual) PT 24.3 H INR 2.04 H APTT Fibrinogen D-Dimer POC ABG pH POC ABG pCO2 POC ABG pO2 Sodium Potassium Chloride Carbon Dioxide BUN Creatinine 2.6 H Glucose 117 H POC Glucose Lactic Acid Calcium Phosphorus Magnesium TIBC Ferritin Total Bilirubin 9.50 H Direct Bilirubin AST 50 H Ammonia 75.0 H Lactate Dehydrogenase NT-Pro-B Natriuret Pep Total Protein Albumin 3.7 L Lipase Vitamin B12 Urine WBC (Auto) Urine Creatinine Ur Creatinine 24 Hour Fluid Glucose Fluid Total Protein Digoxin Crossmatch 01/06/18 01/06/18 01/07/18 02:35 02:35 09:29 RBC 2.75 L Hgb 9.2 L Hct 27.7 L MCV 101 H MCH 34 H MCHC RDW 25.1 H Plt Count 46 L Lymph % (Auto) [place] % (Auto) Baso % (Auto) Lymph # [place] # Baso # Seg Neutrophils % Seg Neuts % (Manual) Lymphocytes % (Manual) 13.0 L Monocytes % (Manual) Eosinophils % (Manual) 7.0 H Basophils % (Manual) 2.0 H Nucleated RBC % Lymphocytes # (Manual) 1.0 L Monocytes # (Manual) Eosinophils # (Manual) 0.6 H Basophils # (Manual) 0.2 H PT 21.3 H INR 1.73 H APTT 41.2 H Fibrinogen D-Dimer POC ABG pH POC ABG pCO2 POC ABG pO2 Sodium Potassium Chloride 96.3 L Carbon Dioxide 21 L BUN 23 H Creatinine 2.9 H Glucose POC Glucose Lactic Acid Calcium Phosphorus Magnesium TIBC Ferritin Total Bilirubin 9.80 H Direct Bilirubin AST 65 H Ammonia Lactate Dehydrogenase NT-Pro-B Natriuret Pep Total Protein Albumin 3.5 L Lipase Vitamin B12 Urine WBC (Auto) Urine Creatinine Ur Creatinine 24 Hour Fluid Glucose Fluid Total Protein Digoxin Crossmatch 01/08/18 01/09/18 01/09/18 06:15 05:16 10:18 RBC Hgb Hct MCV MCH MCHC RDW Plt Count Lymph % (Auto) [place] % (Auto) Baso % (Auto) Lymph # [place] # Baso # Seg Neutrophils % Seg Neuts % (Manual) Lymphocytes % (Manual) Monocytes % (Manual) Eosinophils % (Manual) Basophils % (Manual) Nucleated RBC % Lymphocytes # (Manual) Monocytes # (Manual) Eosinophils # (Manual) Basophils # (Manual) PT 22.6 H 24.2 H INR 1.86 H 2.02 H APTT 49.5 H Fibrinogen D-Dimer POC ABG pH POC ABG pCO2 POC ABG pO2 Sodium Potassium Chloride Carbon Dioxide BUN Creatinine Glucose POC Glucose Lactic Acid Calcium Phosphorus Magnesium TIBC Ferritin Total Bilirubin Direct Bilirubin AST Ammonia 22.0 L Lactate Dehydrogenase NT-Pro-B Natriuret Pep Total Protein Albumin Lipase Vitamin B12 Urine WBC (Auto) Urine Creatinine Ur Creatinine 24 Hour Fluid Glucose Fluid Total Protein Digoxin Crossmatch 01/10/18 01/10/18 01/11/18 05:01 05:01 05:46 RBC 2.40 L 2.40 L Hgb 8.4 L 8.5 L Hct 24.5 L 24.8 L MCV 102 H 104 H MCH 35 H 36 H MCHC RDW 27.3 H 27.9 H Plt Count 56 L 70 L Lymph % (Auto) [place] % (Auto) Baso % (Auto) Lymph # [place] # Baso # Seg Neutrophils % Seg Neuts % (Manual) 78.0 H 90.0 H Lymphocytes % (Manual) 5.0 L 5.0 L Monocytes % (Manual) 17.0 H Eosinophils % (Manual) Basophils % (Manual) Nucleated RBC % 1.0 H Lymphocytes # (Manual) 0.4 L 0.4 L Monocytes # (Manual) 1.4 H Eosinophils # (Manual) Basophils # (Manual) PT INR APTT Fibrinogen D-Dimer POC ABG pH POC ABG pCO2 POC ABG pO2 Sodium Potassium Chloride 94.8 L Carbon Dioxide BUN 21 H Creatinine 2.6 H Glucose POC Glucose Lactic Acid Calcium Phosphorus Magnesium TIBC Ferritin Total Bilirubin 11.40 H Direct Bilirubin AST 86 H Ammonia Lactate Dehydrogenase NT-Pro-B Natriuret Pep Total Protein Albumin 3.6 L Lipase Vitamin B12 Urine WBC (Auto) Urine Creatinine Ur Creatinine 24 Hour Fluid Glucose Fluid Total Protein Digoxin Crossmatch 01/11/18 01/11/18 01/12/18 05:46 05:46 05:28 RBC Hgb Hct MCV MCH MCHC RDW Plt Count Lymph % (Auto) [place] % (Auto) Baso % (Auto) Lymph # [place] # Baso # Seg Neutrophils % Seg Neuts % (Manual) Lymphocytes % (Manual) Monocytes % (Manual) Eosinophils % (Manual) Basophils % (Manual) Nucleated RBC % Lymphocytes # (Manual) Monocytes # (Manual) Eosinophils # (Manual) Basophils # (Manual) PT INR APTT Fibrinogen D-Dimer POC ABG pH POC ABG pCO2 POC ABG pO2 Sodium 136 L Potassium Chloride 94.3 L Carbon Dioxide BUN 28 H Creatinine 3.0 H Glucose 105 H POC Glucose 123 H Lactic Acid Calcium Phosphorus Magnesium TIBC Ferritin Total Bilirubin 12.10 H Direct Bilirubin AST 86 H Ammonia 64.0 H Lactate Dehydrogenase NT-Pro-B Natriuret Pep Total Protein Albumin 3.7 L Lipase Vitamin B12 Urine WBC (Auto) Urine Creatinine Ur Creatinine 24 Hour Fluid Glucose Fluid Total Protein Digoxin Crossmatch 01/12/18 11:27 RBC Hgb Hct MCV MCH MCHC RDW Plt Count Lymph % (Auto) [place] % (Auto) Baso % (Auto) Lymph # [place] # Baso # Seg Neutrophils % Seg Neuts % (Manual) Lymphocytes % (Manual) Monocytes % (Manual) Eosinophils % (Manual) Basophils % (Manual) Nucleated RBC % Lymphocytes # (Manual) Monocytes # (Manual) Eosinophils # (Manual) Basophils # (Manual) PT INR APTT Fibrinogen D-Dimer POC ABG pH POC ABG pCO2 POC ABG pO2 Sodium Potassium Chloride Carbon Dioxide BUN Creatinine Glucose POC Glucose 155 H Lactic Acid Calcium Phosphorus Magnesium TIBC Ferritin Total Bilirubin Direct Bilirubin AST Ammonia Lactate Dehydrogenase NT-Pro-B Natriuret Pep Total Protein Albumin Lipase Vitamin B12 Urine WBC (Auto) Urine Creatinine Ur Creatinine 24 Hour Fluid Glucose Fluid Total Protein Digoxin Crossmatch Allied health notes reviewed: nursing
--- NOTE | 2018-01-12 14:23 | Discharge Summary ---
Providers - Providers Date of Admission: 12/11/17 04:39 Date of discharge: 01/12/18 Attending physician: TAMELA MARTINEZ 12/11/17 04:57 Consult to Physician [CONS] Routine Comment: LEFT MESSAGE ON CELL PHONE DR PORTILLO [id number] Consulting Provider: HANNAH REYNA Physician Instructions: Reason For Exam: ICU ADMISSION FOR SEPTIC SHOCK 12/11/17 06:00 Consult to Physician [CONS] Routine Comment: A/S NOTIFIED 08 Consulting Provider: RIO FERRARO Physician Instructions: Reason For Exam: ACUTE ON CHRONIC KIDNEY DISEASE 12/12/17 11:06 Consult to Physician [CONS] Routine Comment: Consulting Provider: YOSELIN OTT Physician Instructions: Reason For Exam: liver disease and cirrhosis Physical Therapy Evaluation and Treat [CONS] Routine Comment: Reason For Exam: deconditioning 12/12/17 11:27 Consult to Physician [CONS] Routine Comment: Consulting Provider: HENRIQUE CORDOVA Physician Instructions: Reason For Exam: anemia 12/13/17 12:57 Consult to Dietitian/Nutrition [CONS] Routine Physician Instructions: Reason For Exam: Tube feeding Reason for Consult: Write/Manage Tube Feeding 12/13/17 14:19 Consult to Physician [CONS] Routine Comment: Consulting Provider: KEIKO HAIR Physician Instructions: Reason For Exam: anemia, liver dz and cirrhosis 12/15/17 12:27 Consult to Physician [CONS] Routine Comment: Consulting Provider: SARINA ZURITA Physician Instructions: Reason For Exam: vasc cath placement 12/16/17 11:37 Consult to Physician [CONS] Routine Comment: Consulting Provider: DIO DONAHUE Physician Instructions: Reason For Exam: NSVT 12/17/17 11:58 Speech Therapy Evaluation and Treat [CONS] Routine Reason For Exam: ngt in place at this time..eval swallowing Primary care physician: [employer] Hospitalization Reason for admission: abd pain Condition: Serious Disposition: [id number] STILL A PATIENT Exam - Constitutional Vitals: Temp Pulse Resp BP Pulse Ox 98.5 F 76 18 98/54 95 01/12/18 04:40 01/12/18 09:51 01/12/18 04:40 01/12/18 09:51 01/12/18 09:15 Plan Follow up with: PRIMARY CARE, [Primary Care Provider] - 3-5 Days
--- NOTE | 2018-01-12 14:33 | Progress Note ---
Assessment and Plan - Patient Problems (1) Acute hepatic encephalopathy Current Visit: Yes Status: Acute Plan to address problem: see orders. continue with lactulose, recheck ammonia level. continue same. supportive. (2) Anemia Current Visit: Yes Status: Acute Plan to address problem: see orders. Replacement transfusion, if hgb less than 7.0 same as above. see notes above. same as above, stable. see notes above. stable so far. (3) Renal failure Current Visit: Yes Status: Acute Plan to address problem: follow renal service. same as above. (4) Liver failure Current Visit: Yes Status: Acute Plan to address problem: Hepato-renal syndrome, continue with HD. (5) Coagulation disorder Current Visit: Yes Status: Acute Plan to address problem: see notes. Subjective Date of service: 01/12/18 Principal diagnosis: CARMEN on CKD; Acute Encephalopathy; Sepsis Syndrome; Anemia Interval history: Patient seen, restingm labs/notes reviewed. agree with management so far.labs showing consumptive coagulopathy. Patient seen, resting in bed, records/labs reviewed.PLT dropped some.Still no active bleeding. Patient seen/examined, records/labs / notes reviewed, hgb low at 6.9, will rec replacement transfusion,with HD tomorrow if planned to proceed with HD. Patient seen, resting in bed, labs/records reviewed, Hgb still low, transfusion written for today. Patient seen, resting in bed, labs reviewed, plt 57,000, rectal bleeding resolved, will continue to monitor patient/labs with you, and intervene with replacement transfusion, when needed. Patient seen, resting in bed, NAD, records reviewed. Patient seen, resting in bed, labs/records reviewed, no new issues, the latest plt fair, no any sign of bleeding. Patient seen, resting in bed, records reviewed, PLT 57,000, no bleeding. Patient seen, resting in bed, labs reviewed, hgb dropped drastically, due to rectal bleed.He is s/p blood transfusion. he is expected to continue to drop his hgb, as long as he continues to bleed. Will re check labs in am. Thrombocytopenia at above 20,000. will continue to monitor. Patient seen, resting in bed, labs reviewed, ,he will need some PLT+ FFP, especially if there is any plans for any procedure, otherwise, can watch if any active bleeding, or plt 20,000 or less. patient seen/examined, resting in bed, labs reviewed, s/p GI scope, and blood transfusion, Plt replacement ,to follow. patient seen, resting in bed, labs, reviewed, plt 39,000, replacement not given yesterday? Patient seen/examined, at the HD center, resting in bed, was able ro discuss his case with him, regarding prognosis, and options, as i had d/w his yesterday. he wants to talk with his first.. his PLT came up following transfusion, hgb at Fair level at this time,Will see how much this will hold in the next few days.He is really not a good candidate for any transplant ,given, his condition, and co morbid issues at this time. Prognosis is quite poor for Hepato-renal syndrome, let alone complicated by thrombocytopenia/anemia, and double vital organ failure.He has no real reserve as far as these organs are concerned.You may want to have a vince family talk with him, his , and doctors Patient resting in bed, labs reviewed, and fairly stable, slight drop in hgb, and plt, but overall stable in the last 24hrs.notes reviewed. Patient seen/resting in bed, labs reviewed, d/w primary team. Hgb dropped, but plt holding steady since replacement. Patient resting in bed, labs reviewed, rec stays the same.Replacement transfusion prn. i have spoken to patient/, and sister at [facility]. Patient seen/examined, resting in bed, c/o not eating much due to lack of appetite.Rec appetite enhancer. Patient seen, resting in bed, labs reviewed, and remain fair. Patient seen, resting in bed, labs, reviewed, INR 2+, PLT55,000.Will give some FFP today, and perhaps on sunday, to see if he can get his procedure done. Patient seen, resting in bed, labs reviewed, INR did not improve, following FFP yesterday , if at it was given. patient seen, resting in bed, labs reviewed, PLT, 46,000, no bleeding. If any procedure is intended, can give FFP+_ PLT.,or if any bleeding. Patient seen rthis am, resting in bed, labs reviewed, PT/INR ordered, post FFP transfusion, for possible procedure today.I do not think his INR can get to the desired level of i.4 due to damaged liver. I rec hang FFP during procedure, and PLT 1-2 units can even be given prior . Patient seen/examined, resting in bed, NAD, latest labs reviewed. Patient seen, resting in bed, labs reviewed, will get new labs. Patient seen/examined, resting in bd, NAD, no new issues at this time. Patient resting in bed, labs reviewed, and much better levels today. Patient seen, resting in bed, Labs reviewed, no new issues at this time. Objective - Constitutional Vitals: Vital Signs - 12hr 01/12/18 01/12/18 01/12/18 04:40 04:41 09:15 Temperature 98.5 F Pulse Rate 74 Respiratory 18 Rate Blood Pressure 94/55 Blood Pressure 98/48 [Left] O2 Sat by Pulse 95 95 Oximetry 01/12/18 09:51 Temperature Pulse Rate 76 Respiratory Rate Blood Pressure 98/54 Blood Pressure [Left] O2 Sat by Pulse Oximetry General appearance: Present: no acute distress, well-nourished - EENT Eyes: PERRL, EOM intact ENT: hearing intact, clear oral mucosa Ears: bilateral: normal - Neck Neck: supple, normal ROM - Respiratory Respiratory effort: normal Respiratory: bilateral: CTA - Breasts Breasts: deferred - Cardiovascular Rhythm: regular Heart Sounds: Present: S1 & S2. Absent: gallop, rub Extremities: pulses intact, No edema, normal color, Full ROM - Gastrointestinal General gastrointestinal: Present: soft, non-tender, non-distended, normal bowel sounds Rectal Exam: deferred - Genitourinary Male genitourinary: deferred - Integumentary Integumentary: clear, warm, dry - Musculoskeletal Musculoskeletal: 1, strength equal bilaterally - Neurologic Neurologic: moves all extremities - Psychiatric Psychiatric: appropriate mood/affect - Labs CBC & Chem 7: 01/11/18 05:46 01/11/18 05:46 Labs: Abnormal lab results 01/12/18 01/12/18 Range/Units 05:28 11:27 POC Glucose 123 H 155 H (70-105)
--- NOTE | 2018-01-12 15:20 | Discharge Summary ---
Providers - Providers Date of Admission: 12/11/17 04:39 Date of discharge: 01/12/18 Attending physician: TAMELA MARTINEZ 12/11/17 04:57 Consult to Physician [CONS] Routine Comment: LEFT MESSAGE ON CELL PHONE DR PORTILLO [id number] Consulting Provider: HANNAH REYNA Physician Instructions: Reason For Exam: ICU ADMISSION FOR SEPTIC SHOCK 12/11/17 06:00 Consult to Physician [CONS] Routine Comment: A/S NOTIFIED 08 Consulting Provider: RIO FERRARO Physician Instructions: Reason For Exam: ACUTE ON CHRONIC KIDNEY DISEASE 12/12/17 11:06 Consult to Physician [CONS] Routine Comment: Consulting Provider: YOSELIN OTT Physician Instructions: Reason For Exam: liver disease and cirrhosis Physical Therapy Evaluation and Treat [CONS] Routine Comment: Reason For Exam: deconditioning 12/12/17 11:27 Consult to Physician [CONS] Routine Comment: Consulting Provider: HENRIQUE CORDOVA Physician Instructions: Reason For Exam: anemia 12/13/17 12:57 Consult to Dietitian/Nutrition [CONS] Routine Physician Instructions: Reason For Exam: Tube feeding Reason for Consult: Write/Manage Tube Feeding 12/13/17 14:19 Consult to Physician [CONS] Routine Comment: Consulting Provider: KEIKO HAIR Physician Instructions: Reason For Exam: anemia, liver dz and cirrhosis 12/15/17 12:27 Consult to Physician [CONS] Routine Comment: Consulting Provider: SARINA ZURITA Physician Instructions: Reason For Exam: vasc cath placement 12/16/17 11:37 Consult to Physician [CONS] Routine Comment: Consulting Provider: DIO DONAHUE Physician Instructions: Reason For Exam: NSVT 12/17/17 11:58 Speech Therapy Evaluation and Treat [CONS] Routine Reason For Exam: ngt in place at this time..eval swallowing 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 He was admitted due to hypotension. CT chest wo contrast was completed and revealed The heart size is normal.. There is no thoracic aortic aneurysm or dissection.. There was discoid atelectasis at the lung bases greater on the right. There were no acute infiltrates.. There were large bilateral pleural effusions. There was no pneumothorax.. CT abd/pelvis wo contrast revealed a stent in the portal vein. Liver is irregular in contour suggesting cirrhosis. There are tiny calcified granulomas. There is no discrete mass.. There are bilateral kidney stones. There is no hydronephrosis. There was no specific evidence of colitis or diverticulitis. The stomach and small bowel are unremarkable. The appendix is normal.. There is minimal ascites. There is no free air. Pt was admitted with dx of Severe Cirrhosis/Ascites/ hyperbilirubinemia and underwent paracentesis with fluid analysis negative for SBP. Also, pt with as noted above Bilateral pleural effusion right greater than left where Cigarette Tipper initially recommended giving FFP for thoracentesis. Later pulm felt pt was clinically stable and no thoracentesis was needed. Other complications during stat included Acute on chronic blood loss anemia/ esophageal Varices s/p PRBC transfusion, total more than 10 units during this admission, EGD negative for esophageal variceal bleeding. The pt had Coagulopathy; secondary to cirrhosis liver and Received vitamin K subcutaneous FFP's, Vitamin K. He had Severe thrombocytopenia secondary to cirrhosis, Heme/onc was consulted. He had NSVT treated w/ Lopressor. Pt had complications with the bleed that resulted in hypovolumic shock. Therefore, pt developed Acute on chronic kidney disease V, initiated Hemodialysis 12/17/17 after perm-a-cath placed secondary to ATN/hypotension +/- HRS. Now on hemodialysis, Outpatient dialysis per case management. Also, MSP arranged. D/ C time 32 min Disposition: [id number] Time spent for discharge: 34 - Discharge Diagnoses (1) CARMEN (acute kidney injury) Status: Acute (2) Acute hepatic encephalopathy Status: Acute (3) Alcoholic cirrhosis of liver with ascites Status: Acute (4) Anemia Status: Acute (5) Coagulation disorder Status: Acute (6) Hypovolemic shock Status: Acute (7) Liver failure Status: Acute (8) Renal failure Status: Acute (9) Acute blood loss anemia Status: Acute (10) Bilateral pleural effusion Status: Acute (11) Chronic kidney disease Status: Acute (12) Cirrhosis Status: Acute Qualifiers: Hepatic cirrhosis type: unspecified hepatic cirrhosis Ascites presence: without ascites Qualified Code(s): K74.60 - Unspecified cirrhosis of liver (13) GI (gastrointestinal hemorrhage) Status: Acute Qualifiers: GI bleed type/associated pathology: melena Qualified Code(s): K92.1 - Melena (14) GI bleeding Status: Acute Qualifiers: GI bleed type/associated pathology: melena Qualified Code(s): K92.1 - Melena (15) Cirrhosis of liver with ascites Status: Chronic Qualifiers: Hepatic cirrhosis type: alcoholic cirrhosis Qualified Code(s): K70.31 - Alcoholic cirrhosis of liver with ascites (16) Portal hypertension Status: Chronic Core Measure Documentation - Palliative Care Palliative Care/ Comfort Measures: Not Applicable - Core Measures Any of the following diagnoses?: none Exam - Constitutional Vitals: Temp Pulse Resp BP Pulse Ox 98.5 F 76 18 98/54 95 01/12/18 04:40 01/12/18 10:00 01/12/18 04:40 01/12/18 09:51 01/12/18 09:15 General appearance: Present: no acute distress, well-nourished - EENT Eyes: Present: PERRL ENT: hearing intact, clear oral mucosa - Neck Neck: Present: supple, normal ROM - Respiratory Respiratory effort: normal Respiratory: bilateral: CTA - Cardiovascular Heart Sounds: Present: S1 & S2. Absent: rub, click - Extremities Extremities: pulses symmetrical, No edema Peripheral Pulses: within normal limits - Abdominal General gastrointestinal: Present: soft, non-tender, non-distended, normal bowel sounds Male genitourinary: Present: normal - Integumentary Integumentary: Present: clear, warm, dry - Musculoskeletal Musculoskeletal: gait normal, strength equal bilaterally - Psychiatric Psychiatric: appropriate mood/affect, intact judgment & insight - Neurologic Neurologic: CNII-XII intact, moves all extremities Plan Activity: no restrictions Weight Bearing Status: Full Weight Bearing Follow up with: PRIMARY CARE, [Primary Care Provider] - 3-5 Days YOSHI MAYBERRY MD [Staff Physician] - 7 Days HENRIQUE CORDOVA DO [Staff Physician] - 7 Days JOVITA ÁLVAREZ MD [Staff Physician] - 7 Days TRAE LUCAS MD [Staff Physician] - 7 Days
[2018-01-12 16:33] VITALS: BP 100/60
== END 2018-01-12 16:29 | DRG 871 ==
LOC: ED 12:12 → CC1 12-11 04:39 → 4A 12-15 19:19
PROVIDERS: ADMIT Internal Medicine; ATTEND Hospitalist
PROC: 02HV33Z Insertion of Infusion Device into Superior Vena Cava, Percutaneous Approach (ICD-10-PCS; 2017-12-11)
PROC: B548ZZA Ultrasonography of Superior Vena Cava, Guidance (ICD-10-PCS; 2017-12-11)
PROC: 30233N1 Transfusion of Nonautologous Red Blood Cells into Peripheral Vein, Percutaneous Approach (ICD-10-PCS; 2017-12-12)
PROC: 30233R1 Transfusion of Nonautologous Platelets into Peripheral Vein, Percutaneous Approach (ICD-10-PCS; 2017-12-12)
PROC: 4A033R1 Measurement of Arterial Saturation, Peripheral, Percutaneous Approach (ICD-10-PCS; 2017-12-12)
PROC: 5A1D70Z Performance of Urinary Filtration, Intermittent, Less than 6 Hours Per Day (ICD-10-PCS; 2017-12-15)
PROC: 0JH63XZ Insertion of Tunneled Vascular Access Device into Chest Subcutaneous Tissue and Fascia, Percutaneous Approach (ICD-10-PCS; principal; 2017-12-17)
PROC: 02H633Z Insertion of Infusion Device into Right Atrium, Percutaneous Approach (ICD-10-PCS; 2017-12-17)
PROC: B214YZZ Fluoroscopy of Right Heart using Other Contrast (ICD-10-PCS; 2017-12-17)
PROC: B244YZZ Ultrasonography of Right Heart using Other Contrast (ICD-10-PCS; 2017-12-17)
PROC: 5A1D70Z Performance of Urinary Filtration, Intermittent, Less than 6 Hours Per Day (ICD-10-PCS; 2017-12-17)
PROC: 5A1D70Z Performance of Urinary Filtration, Intermittent, Less than 6 Hours Per Day (ICD-10-PCS; 2017-12-18)
PROC: 5A1D70Z Performance of Urinary Filtration, Intermittent, Less than 6 Hours Per Day (ICD-10-PCS; 2017-12-20)
PROC: 5A1D70Z Performance of Urinary Filtration, Intermittent, Less than 6 Hours Per Day (ICD-10-PCS; 2017-12-22)
PROC: 30233L1 Transfusion of Nonautologous Fresh Plasma into Peripheral Vein, Percutaneous Approach (ICD-10-PCS; 2017-12-24)
PROC: 30233K1 Transfusion of Nonautologous Frozen Plasma into Peripheral Vein, Percutaneous Approach (ICD-10-PCS; 2017-12-24)
PROC: 5A1D70Z Performance of Urinary Filtration, Intermittent, Less than 6 Hours Per Day (ICD-10-PCS; 2017-12-24)
PROC: 0DJ08ZZ Inspection of Upper Intestinal Tract, Via Natural or Artificial Opening Endoscopic (ICD-10-PCS; 2017-12-26)
PROC: 5A1D70Z Performance of Urinary Filtration, Intermittent, Less than 6 Hours Per Day (ICD-10-PCS; 2017-12-26)
PROC: 5A1D70Z Performance of Urinary Filtration, Intermittent, Less than 6 Hours Per Day (ICD-10-PCS; 2017-12-28)
PROC: 5A1D70Z Performance of Urinary Filtration, Intermittent, Less than 6 Hours Per Day (ICD-10-PCS; 2017-12-31)
PROC: 0W9G3ZZ Drainage of Peritoneal Cavity, Percutaneous Approach (ICD-10-PCS; 2018-01-01)
PROC: 5A1D70Z Performance of Urinary Filtration, Intermittent, Less than 6 Hours Per Day (ICD-10-PCS; 2018-01-02)
PROC: 5A1D70Z Performance of Urinary Filtration, Intermittent, Less than 6 Hours Per Day (ICD-10-PCS; 2018-01-04)
PROC: 5A1D70Z Performance of Urinary Filtration, Intermittent, Less than 6 Hours Per Day (ICD-10-PCS; 2018-01-07)
PROC: 5A1D70Z Performance of Urinary Filtration, Intermittent, Less than 6 Hours Per Day (ICD-10-PCS; 2018-01-09)
PROC: 5A1D70Z Performance of Urinary Filtration, Intermittent, Less than 6 Hours Per Day (ICD-10-PCS; 2018-01-11)
DX: A41.9 Sepsis, unspecified organism (principal); N17.0 Acute kidney failure with tubular necrosis; K72.00 Acute and subacute hepatic failure without coma; R57.1 Hypovolemic shock; I50.23 Acute on chronic systolic (congestive) heart failure; R65.21 Severe sepsis with septic shock; G92 Toxic encephalopathy; I85.11 Secondary esophageal varices with bleeding; K76.6 Portal hypertension; D62 Acute posthemorrhagic anemia; D68.9 Coagulation defect, unspecified; N18.5 Chronic kidney disease, stage 5; J90 Pleural effusion, not elsewhere classified; E44.0 Moderate protein-calorie malnutrition; E87.3 Alkalosis; N39.0 Urinary tract infection, site not specified; I48.92 Unspecified atrial flutter; I42.9 Cardiomyopathy, unspecified; I13.2 Hypertensive heart and chronic kidney disease with heart failure and with stage 5 chronic kidney disease, or end stage renal disease; K70.31 Alcoholic cirrhosis of liver with ascites; F17.200 Nicotine dependence, unspecified, uncomplicated; K31.89 Other diseases of stomach and duodenum; G40.909 Epilepsy, unspecified, not intractable, without status epilepticus; E80.6 Other disorders of bilirubin metabolism; E87.5 Hyperkalemia; D69.6 Thrombocytopenia, unspecified; Z68.21 Body mass index [BMI] 21.0-21.9, adult; Z89.422 Acquired absence of other left toe(s); Z88.5 Allergy status to narcotic agent
CPT/HCPCS: 36415; 36430; 36558; 36600; 49083; 51702; 71045; 71250; 74018; 74176; 76604; 76700; 76937; 77001; 80048; 80053; 80074; 80162; 81001; 82040; 82140; 82150; 82248; 82533; 82550; 82570; 82607; 82728; 82747; 82803; 82947; 82962; 83550; 83605; 83615; 83690; 83735; 83880; 84100; 84160; 84207; 84443; 84478; 85007; 85014; 85018; 85025; 85027; 85240; 85379; 85384; 85610; 85652; 85730; 86140; 86850; 86880; 86900; 86901; 86920; 87040; 87086; 87116; 88112; 88305; 88341; 88342; 89051; 93005; 93010; 93306; 94760; 96361; 96365; 96375; C1750; C9113; G8996-GN; G8997-GN; G8998-GN; J0696; J0885; J1160; J1644; J1956; J2250; J2543; J2704; J3010; J3370; J3430; J3475; J7030; J7040; J7070; P9016; P9017; P9035; P9047